=== PATIENT | female | born 1980 | race Caucasian/White ===

== ENCOUNTER → 2020-04-02 13:38 | Outpatient (BNVA) | payer MEDICARE, MEDICAID, SELFPAY | PROVIDERS: PCP Internal Medicine; Visit Provider Anesthesiology | DX: G89.4 Chronic pain syndrome (principal); M54.5 Low back pain; M54.2 Cervicalgia; M35.2 Behcet's disease; K50.90 Crohn's disease, unspecified, without complications | CPT/HCPCS: 99202 ==

== ENCOUNTER 2020-04-10 10:19 | Emergency (ER) | payer MEDICARE, MEDICAID, SELFPAY ==
[2020-04-10 13:08] VITALS: BP 136/69; PULSE 79; RESP 16; TEMP 37; O2SAT 96; BMI 31.4
--- NOTE | 2020-04-10 13:30 | XR_ITS ---
EXAMINATION: XR CHEST CLINICAL INFORMATION: Shortness of breath COMPARISON: None TECHNIQUE: Frontal view of the chest was obtained. FINDINGS: The cardiac mediastinal and hilar contours are within normal limits. The heart is normal in size. There is no lobar consolidation. There is minimal atelectasis at the base of the left lung. A port is seen along the right abdominal wall with its tip terminating at the inferior cavoatrial junction. Surgical material projects over the left upper abdomen consistent with prior surgical hernia repair. Possible trace left pleural effusion. No pneumothorax. XR/XR chest 1V IMPRESSION: 1. Minimal atelectasis at the base of the left lung and a possible trace/small left pleural effusion.
--- NOTE | 2020-04-10 13:32 | CT_ITS ---
EXAMINATION: CT ABDOMEN AND PELVIS WITH CONTRAST CLINICAL INFORMATION: Right lower quadrant pain COMPARISON: None TECHNIQUE: Multidetector volumetric images were obtained from the superior aspect of the liver through the pubic symphysis following administration 85 mL of Omnipaque 350 intravenous contrast. Sagittal and coronal reformatted images were obtained on the technologist's workstation. Oral contrast: No This CT examination was performed using dose optimization techniques as appropriate, variously including the following: *Automated exposure control *Adjustment of mA and/or kV according to patient size (this includes techniques or standardized protocols for targeted exams where dose is matched to indication/reason for exam; i.e. extremities or head) *Use of iterative reconstruction technique DLP: 542 mGy-cm FINDINGS: LUNG BASES: The visualized lung bases are unremarkable. LIVER, GALLBLADDER, AND BILIARY TREE: The liver is normal in size, shape, and attenuation. No focal hepatic lesion or biliary ductal dilatation is present. The gallbladder is unremarkable with no evidence of radiopaque gallstones, gallbladder wall thickening, or obvious pericholecystic inflammatory changes. PANCREAS: Unremarkable. SPLEEN: Unremarkable. ADRENAL GLANDS: Unremarkable. KIDNEYS AND URETERS: The kidneys are normal in size, shape, and attenuation. No hydronephrosis, hydroureter, or calculi seen. No perinephric stranding. BLADDER: Unremarkable. GASTROINTESTINAL TRACT: No acute abnormality. There is no bowel wall thickening /edema. There is no bowel obstruction. There is a moderate volume of stool in the colon. The appendix is nonvisualized . There are no inflammatory changes of the mesentery. The small bowel loops are unremarkable. The stomach is normal. There is no hiatal hernia. ABDOMINAL WALL: Surgical mesh anterior left side of abdomen. No recurrent hernia. LYMPH NODES: Normal. VASCULAR: Right-sided paralumbar approach catheter in the inferior vena cava with catheter tip at the level the diaphragm. Normal enhancement of the vasculature of the abdomen and pelvis. PELVIC VISCERA: Unremarkable. OSSEOUS STRUCTURES: Unremarkable. CT/CT abdomen pelvis w con IMPRESSION: No acute abnormality CT scan abdomen pelvis. The appendix is not visualized. There is no inflammation the mesentery. There is no acute abnormality of the bowel.
[2020-04-10] MEDS: Morphine Sulfate Immed Release 15 MG TABLET PO (13:43)
--- NOTE | 2020-04-10 13:43 | ED_ITS ---
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 She was recently tested for COVID after a potential exposure about 2 weeks ago and was negative. She has no known sick contacts since then. She recently had her chronic opiate regimen changed on 04/02 to morphine TID because her [facility] provider retired. She has had no vomiting. Diarrhea described as loose, denies blood. She is not on any medications for Crohn's at this time because Remicade caused severe diarrhea. MD elicited complaint: abdominal pain Pertinent past history: other (Crohn's ) Onset (ago): day(s) (2-3) Pain Consistency: constant Location: RLQ Severity: moderate Quality: cramping and stabbing Radiation: LLQ Migration to: no migration and LLQ Exacerbating factors: eating Relieving factors: nothing Context: history of similar episodes Associated symptoms: nausea, diarrhea and chills Treatments prior to arrival: prescription analgesics (Morphine 15 mg this morni ng ) Related Data Home Medications Medication Instructions Recorded Confirmed apremilast 30 mg tablet 30 mg PO BID 04/02/20 levetiracetam 750 mg tablet 750 mg PO BID 04/02/20 promethazine 25 mg tablet 25 mg PO Q6H PRN 04/02/20 promethazine 25 mg tablet 25 mg PO QID PRN 04/02/20 tizanidine 4 mg tablet 4 mg PO TID PRN 04/02/20 Previous Rx's Medication Instructions Recorded morphine 15 mg immediate release 15 mg PO TID PRN 30 Days #90 tab 04/03/20 tablet nitrofurantoin monohyd/m-cryst 100 mg PO Q12H 5 Days #10 cap 04/10/20 [Macrobid] promethazine 25 mg PO TID PRN #10 tab 04/10/20 Allergies Allergy/AdvReac Type Severity Reaction Status Date / Time ciprofloxacin [Cipro] Allergy Unknown unknown Verified 04/02/20 14:20 levofloxacin [Levaquin] Allergy Unknown unknown Verified 04/02/20 14:20 metoclopramide [Reglan] Allergy Unknown unknown Verified 04/02/20 14:20 ondansetron [Zofran] Allergy Unknown unknown Verified 04/02/20 14:20 penicillin V Allergy Unknown unknown Verified 04/02/20 14:20 Sulfa (Sulfonamide Allergy Unknown unknown Verified 04/02/20 14:20 Antibiotics) Compazine Allergy Unknown unknown Uncoded 04/02/20 14:20 Thalomid Allergy Unknown unknown Uncoded 04/02/20 14:20 Review of Systems Review of Systems Constitutional: + low grade Fever, + Chills ENT/Mouth: No sore throat, No Rhinorrhea, No Swallowing Difficulty Eyes: No Eye Pain, No Swelling, No Redness Cardiovascular: No Chest Pain, + SOB, No Orthopnea, No Edema Respiratory: + Cough, No Sputum, No Wheezing, + dyspnea Gastrointestinal: + Nausea, No Vomiting, + Diarrhea, + abdominal Pain, No Hematochezia, No Melena Genitourinary: No Dysuria, No Urinary Frequency, No Hematuria Musculoskeletal: No joint pain, No Myalgias Skin: No Skin Lesions, No rash Neuro: + Weakness, No Numbness,+ Dizziness, + Headache Psych: No Anxiety/Panic, No Depression Heme/Lymph: No Bruising, No Lymphadenopathy Endocrine: No Polyuria, No Polydipsia Physical Exam Vital Signs: Vital Signs: Last Vital Signs Temp 97.5 F 04/10/20 19:16 Pulse 83 04/10/20 19:16 Resp 18 04/10/20 19:16 BP 145/82 H 04/10/20 19:16 Pulse Ox 95 04/10/20 19:16 Body Mass Index 31.4 Appearance: Alert. Oriented X3. No acute distress. Eyes: Pupils equal, round and reactive to light. ENT: Pharynx normal. Neck: Normal inspection. Neck supple. CVS: Normal heart rate and rhythm. Pulses normal. Respiratory: No respiratory distress. Breath sounds normal. Abdomen: Soft, multiple well healed surgical scars. RLQ tenderness with rebound, mild LLQ tenderness, mild RUQ tenderness without rebound or guarding. decreased bowel sounds. Skin: Skin warm and dry. Normal skin color. Normal skin turgor. No rashes. Extremities: No lower extremity edema. Neuro: Oriented X 3. No motor deficit. No sensory deficit. Course Course Course Narrative: 39 y/o female with complicated PMH including Crohn's, Bechet's disease, chronic pain presenting with headache, lower abdominal pain R>L. Concern for possible Crohn's flare, appendicitis, gastroenteritis, colitis. Other etiologies include COVID-19 given other symptoms. Full lab panel, CT scan abd/pelvis ordered. Dispo pending results and improvement. Reevaluation(s) Reevaluation #1: HCG quant is 9 - patient states she has not been sexually active in 15 years and she has a history of a postive HCG. This was reviewed on her outpatient records - HCG 7 in November. Unclear etiology. Proceed with CT scan. Reevaluation #2: CT scan abd/pelvis showed no acute abnormality. Lab workup was unremarkable. UA positive for possible infection with LE and WBC. Will treat. Getting additional pain meds and PO trial now. Anticipate d/c home. Reevaluation #3: Pain improved and she is tolerating PO. She is stable for discharge with treatment for UTI. MDM - Abdominal Pain Differential Diagnosis Differential diagnosis: Likely abdominal pain, acute appendicitis, bowel perforation, diverticulitis, gastroenteritis, gastritis, ovarian cyst, renal colic and small bowel obstruction Medical Records Attestation: I reviewed the patient's medical records. Lab Data Attestation: I reviewed the patient's lab results. Result diagrams: 04/10/20 15:55 04/10/20 15:55 Labs: Lab Results 04/10/20 04/10/20 04/10/20 Range/Units 13:45 14:49 15:55 WBC 4.7 L (4.8-10.8) X10*3/uL RBC 5.11 (4.20-5.50) X10*6/uL Hgb 14.8 (12.0-16.0) g/dl Hct 45.1 (37-47) % MCV 88.3 (80-98) fL MCH 29.0 (27.0-33.0) pg MCHC 32.8 (31.0-35.0) g/dl RDW 12.8 (11.0-16.0) % Plt Count 227 (160-400) X10*3/uL MPV 10.4 (9.4-12.3) fL Immature Gran % (Auto) 0.2 (0.0-0.4) % Neut % (Auto) 65.7 (45-73) % Lymph % (Auto) 24.8 (20-40) % [place] % (Auto) 7.4 (2-11) % Eos % (Auto) 1.3 (0-4) % Baso % (Auto) 0.6 (0-2) % Lymph # (Auto) 1.2 (1.2-4.9) X10*3/uL [place] # (Auto) 0.4 (0.1-1.2) X10*3/uL Eos # (Auto) 0.1 (0.0-0.4) X10*3/uL Baso # (Auto) 0.0 (0.0-0.2) X10*3/uL Abs Immat Gran (auto) 0.01 (0.00-0.03) X10*3/uL Absolute Neuts (auto) 3.1 (2.0-8.3) X10*3/uL Absolute Nucleated RBC 0.000 (0.0-0.012) X10*3/uL Nucleated RBC % (auto) 0.0 (0.0-0.2) /100WBC Hold Blue Top Sodium (135-145) mmol/L Potassium (3.3-5.1) mmol/l Chloride (96-108) mmol/L Carbon Dioxide (22-29) mmol/L Anion Gap (12-20) BUN (9-16) mg/dL Creatinine (0.5-1.4) mg/dL Estim Creat Clear Calc Estimated GFR Random Glucose (60-115) mg/dL Calcium (8.4-10.2) mg/dL Magnesium (1.6-2.6) mg/dL Total Bilirubin (0.0-1.0) mg/dL Direct Bilirubin (0.0-0.5) mg/dL AST (5-31) U/L ALT (0-31) U/L Alkaline Phosphatase (39-117) U/L Total Protein (6.5-8.0) g/dL Albumin (3.5-5.0) g/dL Beta HCG, Quant mIU/mL Urine Color YELLOW Urine Appearance CLOUDY Urine pH 8.0 (5.0-8.0) Ur Specific [place] 1.020 (1.005-1.025) Urine Protein NEG (NEG-TRACE) MG/DL Urine Glucose (UA) NEG (NEG) MG/DL Urine Ketones NEG (NEG) MG/DL Urine Blood NEG (NEG) Urine Nitrite NEG (NEG) Ur Leukocyte Esterase 1+ H (NEG) Urine RBC 0 (0) /HPF Urine WBC 15-29 H (0-4) /HPF Ur Squamous Epith Cells 1+ /LPF Amorphous Sediment 2+ /LPF Urine Bacteria NONE /LPF Urine Mucus 1+ /LPF Coronavirus (PCR) NEGATIVE (Negative) Influenza Type A (PCR) NEGATIVE (Negative) Influenza Type B (PCR) NEGATIVE (Negative) RSV RNA Qual (PCR) NEGATIVE (Negative) 04/10/20 04/10/20 04/10/20 Range/Units 15:55 15:55 16:18 WBC (4.8-10.8) X10*3/uL RBC (4.20-5.50) X10*6/uL Hgb (12.0-16.0) g/dl Hct (37-47) % MCV (80-98) fL MCH (27.0-33.0) pg MCHC (31.0-35.0) g/dl RDW (11.0-16.0) % Plt Count (160-400) X10*3/uL MPV (9.4-12.3) fL Immature Gran % (Auto) (0.0-0.4) % Neut % (Auto) (45-73) % Lymph % (Auto) (20-40) % [place] % (Auto) (2-11) % Eos % (Auto) (0-4) % Baso % (Auto) (0-2) % Lymph # (Auto) (1.2-4.9) X10*3/uL [place] # (Auto) (0.1-1.2) X10*3/uL Eos # (Auto) (0.0-0.4) X10*3/uL Baso # (Auto) (0.0-0.2) X10*3/uL Abs Immat Gran (auto) (0.00-0.03) X10*3/uL Absolute Neuts (auto) (2.0-8.3) X10*3/uL Absolute Nucleated RBC (0.0-0.012) X10*3/uL Nucleated RBC % (auto) (0.0-0.2) /100WBC Hold Blue Top SEE NOTE Sodium 139 (135-145) mmol/L Potassium 4.6 (3.3-5.1) mmol/l Chloride 104 (96-108) mmol/L Carbon Dioxide 21 L (22-29) mmol/L Anion Gap 19 (12-20) BUN 9 (9-16) mg/dL Creatinine 0.83 (0.5-1.4) mg/dL Estim Creat Clear Calc 76.2 Estimated GFR > 60 Random Glucose 78 (60-115) mg/dL Calcium 8.6 (8.4-10.2) mg/dL Magnesium 2.5 (1.6-2.6) mg/dL Total Bilirubin 0.6 (0.0-1.0) mg/dL Direct Bilirubin < 0.2 (0.0-0.5) mg/dL AST 27 (5-31) U/L ALT 17 (0-31) U/L Alkaline Phosphatase 62 (39-117) U/L Total Protein 7.0 (6.5-8.0) g/dL Albumin 4.5 (3.5-5.0) g/dL Beta HCG, Quant 9 mIU/mL Urine Color Urine Appearance Urine pH (5.0-8.0) Ur Specific [place] (1.005-1.025) Urine Protein (NEG-TRACE) MG/DL Urine Glucose (UA) (NEG) MG/DL Urine Ketones (NEG) MG/DL Urine Blood (NEG) Urine Nitrite (NEG) Ur Leukocyte Esterase (NEG) Urine RBC (0) /HPF Urine WBC (0-4) /HPF Ur Squamous Epith Cells /LPF Amorphous Sediment /LPF Urine Bacteria /LPF Urine Mucus /LPF Coronavirus (PCR) (Negative) Influenza Type A (PCR) (Negative) Influenza Type B (PCR) (Negative) RSV RNA Qual (PCR) (Negative) Critical Care Time Critical Care Time Critical Care Time: No Discharge Plan Discharge Clinical Impression: UTI (urinary tract infection) Qualifiers: Urinary tract infection type: acute cystitis Hematuria presence: without h ematuria Qualified Code(s): N30.00 - Acute cystitis without hematuria Patient Disposition: Home, Self-Care Instructions: Urinary Tract Infection in Women (ED) Additional Instructions: Your CT scan today was normal. Your blood work was unremarkable. Your COVID and Influenza test was negative. Your urine test showed possible infection so we are starting you on antibiotics. Recommend following up with your doctor tomorrow or early next week. Follow up with your GI doctor at [facility]. If you develop bloody diarrhea, worsening abdominal pain, or other worrisome symptoms come back to the ER for further evaluation. Prescriptions: New nitrofurantoin monohyd/m-cryst [Macrobid] 100 mg capsule 100 mg PO Q12H 5 Days Qty: 10 RF: 0 promethazine 25 mg tablet 25 mg PO TID PRN (Reason: nausea and vomiting) Qty: 10 RF: 0 No Action morphine 15 mg tablet 15 mg PO TID PRN (Reason: pain) 30 Days Qty: 90 RF: 0 PMFSH Past Medical History Attestation statement: The following information was validated with the patient. Medical History Behcet's disease Cervicalgia Chronic pain syndrome Crohn's disease Low back pain Social History Social History Alcohol intake: never Smoking Status: Never smoker Use of substances other than those prescribed or required for medical reasons: No Advance Directives: Yes Advance Directives Information Provided: Yes Advance Directives on File: No
[2020-04-10 14:15] LABS: Glucose Urine UA NEG (NEG); Leukocyte Esterase Urine 1+ (NEG); Nitrite Urine NEG (NEG); Urine Blood NEG (NEG); Urine Ketones NEG (NEG); Urine Protein NEG (NEG-TRACE)
[2020-04-10] MEDS: diphenhydrAMINE HCL 50 MG/ML VIAL 25 MG IVPUSH ×3 (14:16→18:30)
[2020-04-10 14:19] LABS: Appearance Urine CLOUDY; Color Urine YELLOW
[2020-04-10] MEDS: 0.9 % Sodium Chloride 1,000 ML 999 ML IVCONT (14:20)
[2020-04-10 14:32] LABS: Amorphous Sediment Urine 2+ /LPF; Mucus Urine 1+ /LPF; RBC Urine 0 /HPF (0); Squamous Epithelial Cell Urine 1+ /LPF
[2020-04-10 15:34] LABS: Influenza A PCR NEGATIVE (Negative); Influenza B PCR NEGATIVE (Negative); Resp Syncy Virus RNA Qual PCR NEGATIVE (Negative); SARS COV2 PCR INHOUSE NEGATIVE (Negative)
[2020-04-10 16:02] LABS: Basophils Percent Auto 0.6 % (0-2); Eosinophils Absolute Auto 0.1 X10*3/uL (0.0-0.4); Eosinophils Percent Auto 1.3 % (0-4); Hematocrit 45.1 % (37-47); Hemoglobin 14.8 g/dl (12.0-16.0); Imm Gran Abs Auto 0.01 X10*3/uL (0.00-0.03); Imm Gran Pct Auto 0.2 % (0.0-0.4); Lymphocytes Absolute Auto 1.2 X10*3/uL (1.2-4.9); Lymphocytes Percent Auto 24.8 % (20-40); MANUAL DIFF FLAG NO; Mean Corpuscular HGB Conc 32.8 g/dl (31.0-35.0); Mean Corpuscular Volume 88.3 fL (80-98); Mean Platelet Volume 10.4 fL (9.4-12.3); Monocytes Absolute Auto 0.4 X10*3/uL (0.1-1.2); Monocytes Percent Auto 7.4 % (2-11); Neutrophils Absolute Auto 3.1 X10*3/uL (2.0-8.3); Neutrophils Percent Auto 65.7 % (45-73); Platelet Count 227 X10*3/uL (160-400); Red Blood Count 5.11 X10*6/uL (4.20-5.50); Red Cell Distribution Width 12.8 % (11.0-16.0); White Blood Count 4.7 X10*3/uL (4.8-10.8)
[2020-04-10 16:49] LABS: Magnesium 2.5 mg/dL (1.6-2.6)
[2020-04-10 16:52] LABS: Alanine Aminotransferase 17 U/L (0-31); Albumin Level 4.5 g/dL (3.5-5.0); Alkaline Phosphatase 62 U/L (39-117); Anion Gap 19 (12-20); Aspartate Amino Transferase 27 U/L (5-31); Bilirubin Direct < 0.2 mg/dL (0.0-0.5); Bilirubin Total 0.6 mg/dL (0.0-1.0); Blood Urea Nitrogen 9 mg/dL (9-16); Calcium 8.6 mg/dL (8.4-10.2); Carbon Dioxide 21 mmol/L (22-29); Chloride 104 mmol/L (96-108); Creatinine Clr Calc Pharmacy 76.2; Estimated Glomerular Filt Rate > 60; Glucose Random 78 mg/dL (60-115); Potassium 4.6 mmol/l (3.3-5.1); Sodium 139 mmol/L (135-145)
[2020-04-10 16:56] LABS: HCG Quantitative 9 mIU/mL
[2020-04-10 17:00] VITALS: BP 123/69; PULSE 72; RESP 18; TEMP 36.5; O2SAT 97
[2020-04-10 17:01] VITALS: BP 126/62; PULSE 71
[2020-04-10 17:02] VITALS: BP 138/69; PULSE 72
[2020-04-10 17:05] VITALS: BP 123/53; PULSE 78
[2020-04-10] MEDS: iohexoL 350 MG/ML 100 ML INFUS..BTL IV (17:31)
[2020-04-10 19:16] VITALS: BP 145/82; PULSE 83; RESP 18; TEMP 36.4; O2SAT 95
[2020-04-10] MEDS: Heparin Sodium,Porcine Flush 500 UNIT/5 ML SYRINGE IVFLUSH (20:02)
== END 2020-04-10 20:07 | disposition home or self-care (01) ==
PROVIDERS: Physician Assistant; Emergency Provider Emergency Medicine; PCP Registered Nurse
DX: N30.00 Acute cystitis without hematuria (principal); R51.9 Headache, unspecified; R10.32 Left lower quadrant pain; Z20.828 Contact with and (suspected) exposure to other viral communicable diseases; Z79.899 Other long term (current) drug therapy
CPT/HCPCS: 0241U; 36415; 71045; 74177; 80048; 80076; 81001; 81003; 83735; 84702; 85025; 87086; 96361; 96374; 96375; 96376; 99284; J1200; J1642; J2270; Q9967

== ENCOUNTER 2020-04-27 18:11 | Emergency (ER) | payer MEDICARE, MEDICAID, SELFPAY ==
[2020-04-27 18:56] VITALS: BP 94/56; PULSE 60; RESP 16; TEMP 35.9; O2SAT 100; BMI 30.2
--- NOTE | 2020-04-27 21:17 | ED_ITS ---
HPI - Abdominal Pain General Chief Complaint: Abdominal Pain Stated Complaint: ABD PAIN Time Seen by Provider: 04/27/20 21:14 History of Present Illness HPI narrative: Patient is a 39-year-old female presents today with having abdominal pain over the left side along with bilateral flank that is been ongoing for about a week. No fever no chills. No pain on urination. No coughing or congestion or upper respiratory symptoms. No diaphoresis. Patient last BM was on . She does have history of chronic pain. History of having GJ tube. 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 Patient from home. No recent travel Related Data Home Medications Medication Instructions Recorded Confirmed apremilast 30 mg tablet 30 mg PO BID 04/02/20 levetiracetam 750 mg tablet 750 mg PO BID 04/02/20 promethazine 25 mg tablet 25 mg PO Q6H PRN 04/02/20 promethazine 25 mg tablet 25 mg PO QID PRN 04/02/20 tizanidine 4 mg tablet 4 mg PO TID PRN 04/02/20 Previous Rx's Medication Instructions Recorded nitrofurantoin monohyd/m-cryst 100 mg PO Q12H 5 Days #10 cap 04/10/20 [Macrobid] promethazine 25 mg PO TID PRN #10 tab 04/10/20 morphine 15 mg immediate release 15 mg PO TID PRN 23 Days #69 tab 04/15/20 tablet Allergies Allergy/AdvReac Type Severity Reaction Status Date / Time ciprofloxacin [Cipro] Allergy Unknown unknown Verified 04/02/20 14:20 levofloxacin [Levaquin] Allergy Unknown unknown Verified 04/02/20 14:20 metoclopramide [Reglan] Allergy Unknown unknown Verified 04/02/20 14:20 ondansetron [Zofran] Allergy Unknown unknown Verified 04/02/20 14:20 penicillin V Allergy Unknown unknown Verified 04/02/20 14:20 Sulfa (Sulfonamide Allergy Unknown unknown Verified 04/02/20 14:20 Antibiotics) Compazine Allergy Unknown unknown Uncoded 04/02/20 14:20 Thalomid Allergy Unknown unknown Uncoded 04/02/20 14:20 Review of Systems Review of Systems Constitutional: No Weight loss, No Fever, No Chills, No Night Sweats, No Fatigue, No Malaise ENT/Mouth: No Hearing loss, No Ear Pain, No Nasal Congestion, No Sinus Pain, No Hoarseness, No sore throat, No Rhinorrhea, No Swallowing Difficulty Eyes: No Eye Pain, No Swelling, No Redness, No Foreign Body, No Discharge, No Vision Changes Cardiovascular: No Chest Pain, No SOB, No Dyspnea on Exertion, No Orthopnea, No Edema, No Palpitations Respiratory: No Cough, No Sputum, No Wheezing, No Smoke Exposure, No Dyspnea Gastrointestinal: No Nausea, No Vomiting, No Diarrhea, No Constipation, positive abdominal Pain, No Hematochezia, No Melena Genitourinary: no irregular bleeding, No Dysuria, No Urinary Frequency, No Hematuria, No Urinary Incontinence, No Urgency, No Flank Pain, No Urinary Flow Changes, No Hesitancy Musculoskeletal: No joint pain, No Myalgias, No Joint Swelling Skin: No Skin Lesions, No rash Neuro: No Weakness, No Numbness, No Paresthesias, No Loss of Consciousness, No Dizziness, No Headache Psych: No Anxiety/Panic, No Depression, No SI/HI/AH/VH, No Social Issues, Heme/Lymph: No Bruising, No Bleeding,No Lymphadenopathy Endocrine: No Polyuria, No Polydipsia, No Temperature Intolerance Physical Exam Vital Signs: Vital Signs: Last Vital Signs Temp 96.6 F L 04/27/20 18:56 Pulse 60 04/27/20 18:56 Resp 16 04/27/20 18:56 BP 94/56 L 04/27/20 18:56 Pulse Ox 100 04/27/20 18:56 Body Mass Index 30.2 Appearance: Alert. Oriented X3. No acute distress. Eyes: Pupils equal, round and reactive to light. ENT: Pharynx normal. Neck: Normal inspection. Neck supple. No lymph nodes noted. No crepitus CVS: Normal heart rate and rhythm. Pulses normal. Normal S1 and S2 Respiratory: No respiratory distress. Breath sounds normal. No Wheezing. No rales Abdomen: Soft and nontender. No rigidity. No distention. good BS x4 Skin: Skin warm and dry. Normal skin color. Normal skin turgor. Extremities: No lower extremity edema. Neurovascular intact to all extremities. No Lacerations. No Rash Neuro: Oriented X 3. No motor deficit. No sensory deficit. Moving all extermities. No slurred speech MDM - Abdominal Pain MDM Narrative Medical decision making narrative: CT scan of the abdomen did not show any acute abscess, perforation, obstruction. It did show a liver cyst that will require follow-up on an outpatient basis. This finding was discussed with patient. Currently in stable condition. Patient's test was negative no evidence for ectopic. Urine negative for UTI. Differential Diagnosis Differential diagnosis: Likely abdominal pain, aortic dissection, acute append icitis, bowel perforation, calculus of kidney, constipation, diverticulitis, endometriosis, gastroenteritis, gastritis, mesenteric ischemia, ovarian cyst, pancreatitis, peptic ulcer disease, renal colic and small bowel obstruction Lab Data Result diagrams: 04/27/20 23:04 04/27/20 23:04 Labs: Lab Results 04/27/20 04/27/20 04/27/20 Range/Units 23:04 23:04 23:19 WBC 6.3 (4.8-10.8) X10*3/uL RBC 4.59 (4.20-5.50) X10*6/uL Hgb 13.3 (12.0-16.0) g/dl Hct 39.8 (37-47) % MCV 86.7 (80-98) fL MCH 29.0 (27.0-33.0) pg MCHC 33.4 (31.0-35.0) g/dl RDW 12.5 (11.0-16.0) % Plt Count 204 (160-400) X10*3/uL MPV 10.7 (9.4-12.3) fL Immature Gran % (Auto) 0.2 (0.0-0.4) % Neut % (Auto) 58.8 (45-73) % Lymph % (Auto) 29.7 (20-40) % [place] % (Auto) 9.1 (2-11) % Eos % (Auto) 1.6 (0-4) % Baso % (Auto) 0.6 (0-2) % Lymph # (Auto) 1.9 (1.2-4.9) X10*3/uL [place] # (Auto) 0.6 (0.1-1.2) X10*3/uL Eos # (Auto) 0.1 (0.0-0.4) X10*3/uL Baso # (Auto) 0.0 (0.0-0.2) X10*3/uL Abs Immat Gran (auto) 0.01 (0.00-0.03) X10*3/uL Absolute Neuts (auto) 3.7 (2.0-8.3) X10*3/uL Absolute Nucleated RBC 0.000 (0.0-0.012) X10*3/uL Nucleated RBC % (auto) 0.0 (0.0-0.2) /100WBC Sodium 140 (135-145) mmol/L Potassium 4.3 (3.3-5.1) mmol/l Chloride 103 (96-108) mmol/L Carbon Dioxide 26 (22-29) mmol/L Anion Gap 15 (12-20) BUN 20 H D (9-16) mg/dL Creatinine 0.82 (0.5-1.4) mg/dL Estim Creat Clear Calc 75.7 Estimated GFR > 60 Random Glucose 78 (60-115) mg/dL Calcium 9.0 (8.4-10.2) mg/dL Total Bilirubin 0.4 (0.0-1.0) mg/dL Direct Bilirubin 0.2 (0.0-0.5) mg/dL AST 19 (5-31) U/L ALT 11 (0-31) U/L Alkaline Phosphatase 58 (39-117) U/L Total Protein 6.6 (6.5-8.0) g/dL Albumin 4.5 (3.5-5.0) g/dL Lipase 15 (8-78) U/L Urine Color YELLOW Urine Appearance CLEAR Urine pH 6.0 (5.0-8.0) Ur Specific [place] 1.025 (1.005-1.025) Urine Protein NEG (NEG-TRACE) MG/DL Urine Glucose (UA) NEG (NEG) MG/DL Urine Ketones 5 (NEG) MG/DL Urine Blood TRACE (NEG) Urine Nitrite NEG (NEG) Ur Leukocyte Esterase NEG (NEG) Urine RBC 0-2 (0) /HPF Urine WBC 1-4 (0-4) /HPF Ur Squamous Epith Cells 1+ /LPF Urine Bacteria NONE /LPF Urine Mucus 2+ /LPF Urine Test (NEGATIVE) 04/27/20 Range/Units 23:19 WBC (4.8-10.8) X10*3/uL RBC (4.20-5.50) X10*6/uL Hgb (12.0-16.0) g/dl Hct (37-47) % MCV (80-98) fL MCH (27.0-33.0) pg MCHC (31.0-35.0) g/dl RDW (11.0-16.0) % Plt Count (160-400) X10*3/uL MPV (9.4-12.3) fL Immature Gran % (Auto) (0.0-0.4) % Neut % (Auto) (45-73) % Lymph % (Auto) (20-40) % [place] % (Auto) (2-11) % Eos % (Auto) (0-4) % Baso % (Auto) (0-2) % Lymph # (Auto) (1.2-4.9) X10*3/uL [place] # (Auto) (0.1-1.2) X10*3/uL Eos # (Auto) (0.0-0.4) X10*3/uL Baso # (Auto) (0.0-0.2) X10*3/uL Abs Immat Gran (auto) (0.00-0.03) X10*3/uL Absolute Neuts (auto) (2.0-8.3) X10*3/uL Absolute Nucleated RBC (0.0-0.012) X10*3/uL Nucleated RBC % (auto) (0.0-0.2) /100WBC Sodium (135-145) mmol/L Potassium (3.3-5.1) mmol/l Chloride (96-108) mmol/L Carbon Dioxide (22-29) mmol/L Anion Gap (12-20) BUN (9-16) mg/dL Creatinine (0.5-1.4) mg/dL Estim Creat Clear Calc Estimated GFR Random Glucose (60-115) mg/dL Calcium (8.4-10.2) mg/dL Total Bilirubin (0.0-1.0) mg/dL Direct Bilirubin (0.0-0.5) mg/dL AST (5-31) U/L ALT (0-31) U/L Alkaline Phosphatase (39-117) U/L Total Protein (6.5-8.0) g/dL Albumin (3.5-5.0) g/dL Lipase (8-78) U/L Urine Color Urine Appearance Urine pH (5.0-8.0) Ur Specific [place] (1.005-1.025) Urine Protein (NEG-TRACE) MG/DL Urine Glucose (UA) (NEG) MG/DL Urine Ketones (NEG) MG/DL Urine Blood (NEG) Urine Nitrite (NEG) Ur Leukocyte Esterase (NEG) Urine RBC (0) /HPF Urine WBC (0-4) /HPF Ur Squamous Epith Cells /LPF Urine Bacteria /LPF Urine Mucus /LPF Urine Test NEGATIVE (NEGATIVE) Discharge Plan Discharge Clinical Impression: Abdominal pain Patient Disposition: Home, Self-Care Instructions: Abdominal Pain (ED) Additional Instructions: A cyst was found in your liver. A follow-up CT is needed in 6 months. Please closely follow-up with your doctor. Risk of malignancy exists. Prescriptions: No Action morphine 15 mg tablet 15 mg PO TID PRN (Reason: pain) 23 Days Qty: 69 RF: 0 nitrofurantoin monohyd/m-cryst [Macrobid] 100 mg capsule 100 mg PO Q12H 5 Days Qty: 10 RF: 0 promethazine 25 mg tablet 25 mg PO TID PRN (Reason: nausea and vomiting) Qty: 10 RF: 0 Referrals: Amelie Banks NP [Primary Care Provider] - 2 days [facility] Past Medical History Attestation statement: The following information was validated with the patient. Medical History Behcet's disease Cervicalgia Chronic pain syndrome Crohn's disease Low back pain Social History Social History Alcohol intake: never Smoking Status: Never smoker Advance Directives: No Advance Directives Information Provided: No
[2020-04-27 22:00] VITALS: BP 99/70; PULSE 66; RESP 16; TEMP 36.6; O2SAT 100
[2020-04-27 23:11] LABS: Basophils Percent Auto 0.6 % (0-2); Eosinophils Absolute Auto 0.1 X10*3/uL (0.0-0.4); Eosinophils Percent Auto 1.6 % (0-4); Hematocrit 39.8 % (37-47); Hemoglobin 13.3 g/dl (12.0-16.0); Imm Gran Abs Auto 0.01 X10*3/uL (0.00-0.03); Imm Gran Pct Auto 0.2 % (0.0-0.4); Lymphocytes Absolute Auto 1.9 X10*3/uL (1.2-4.9); Lymphocytes Percent Auto 29.7 % (20-40); MANUAL DIFF FLAG NO; Mean Corpuscular HGB Conc 33.4 g/dl (31.0-35.0); Mean Corpuscular Volume 86.7 fL (80-98); Mean Platelet Volume 10.7 fL (9.4-12.3); Monocytes Absolute Auto 0.6 X10*3/uL (0.1-1.2); Monocytes Percent Auto 9.1 % (2-11); Neutrophils Absolute Auto 3.7 X10*3/uL (2.0-8.3); Neutrophils Percent Auto 58.8 % (45-73); Platelet Count 204 X10*3/uL (160-400); Red Blood Count 4.59 X10*6/uL (4.20-5.50); Red Cell Distribution Width 12.5 % (11.0-16.0); White Blood Count 6.3 X10*3/uL (4.8-10.8)
[2020-04-27 23:24] LABS: Glucose Urine UA NEG (NEG); Leukocyte Esterase Urine NEG (NEG); Nitrite Urine NEG (NEG); Specific Gravity - Urine 1.025 (1.005-1.025); Urine Blood TRACE (NEG); Urine Ketones 5 MG/DL (NEG); Urine Protein NEG (NEG-TRACE)
[2020-04-27 23:26] LABS: Appearance Urine CLEAR; Color Urine YELLOW
[2020-04-27 23:35] LABS: Alanine Aminotransferase 11 U/L (0-31); Albumin Level 4.5 g/dL (3.5-5.0); Alkaline Phosphatase 58 U/L (39-117); Anion Gap 15 (12-20); Aspartate Amino Transferase 19 U/L (5-31); Bilirubin Direct 0.2 mg/dL (0.0-0.5); Bilirubin Total 0.4 mg/dL (0.0-1.0); Blood Urea Nitrogen 20 mg/dL (9-16); Carbon Dioxide 26 mmol/L (22-29); Chloride 103 mmol/L (96-108); Creatinine Clr Calc Pharmacy 75.7; Estimated Glomerular Filt Rate > 60; Glucose Random 78 mg/dL (60-115); Lipase 15 U/L (8-78); Potassium 4.3 mmol/l (3.3-5.1); Sodium 140 mmol/L (135-145); Total Protein 6.6 g/dL (6.5-8.0)
[2020-04-27 23:36] LABS: Mucus Urine 2+ /LPF; RBC Urine 0-2 /HPF (0); Squamous Epithelial Cell Urine 1+ /LPF
[2020-04-27 23:52] LABS: UPreg QC Valid YES; Urine Pregnancy NEGATIVE (NEGATIVE)
[2020-04-28] VITALS: PULSE 62; RESP 16
--- NOTE | 2020-04-28 | CT_ITS ---
EXAMINATION: CT ABDOMEN AND PELVIS WITH CONTRAST CLINICAL INFORMATION: Left-sided abdominal pain COMPARISON: 04/10/2020 TECHNIQUE: Multidetector volumetric images were obtained from the superior aspect of the liver through the pubic symphysis following administration 85 mL of Omnipaque 350 intravenous contrast. Sagittal and coronal reformatted images were obtained on the technologist's workstation. Oral contrast: No This CT examination was performed using dose optimization techniques as appropriate, variously including the following: *Automated exposure control *Adjustment of mA and/or kV according to patient size (this includes techniques or standardized protocols for targeted exams where dose is matched to indication/reason for exam; i.e. extremities or head) *Use of iterative reconstruction technique DLP: 589 mGy-cm FINDINGS: IMAGED THORAX: Chronic fibrocalcific pleural thickening of the left lower hemithorax. Chronic pleural parenchymal scarring present within the anterior right upper lobe and middle lobe. There is a 4 mm solid nodule with surrounding groundglass opacity within the lateral right lower lobe not included within the [id number] on the prior exam. LIVER, GALLBLADDER, AND BILIARY TREE: The liver is normal in size, shape, and attenuation. No focal hepatic lesion or biliary ductal dilatation is present. Gallbladder unremarkable. PANCREAS: Unremarkable. SPLEEN: Unremarkable. ADRENAL GLANDS: Unremarkable. KIDNEYS AND URETERS: The kidneys are normal in size, shape, and attenuation. No hydronephrosis, hydroureter, or calculi seen. No perinephric stranding. BLADDER: Unremarkable. GASTROINTESTINAL TRACT: No bowel related abnormalities. The appendix is normal. ABDOMINAL WALL: Evidence of previous left lower quadrant ostomy. Postsurgical changes present along the left upper quadrant abdominal wall subjacent to the ostomy, possibly related to repair. DiastasIs of the rectus abdominis, with broad mouth epigastric ventral abdominal wall hernia lacking associated inflammation, stable from prior. LYMPH NODES: Normal. VASCULAR: Right posterolateral flank Port-A-Cath courses through the right psoas musculature into the infrarenal IVC with the tip terminating at the level of the inferior cavoatrial junction. Vascular structures are patent. PELVIC VISCERA: Uterus and adnexa unremarkable. OSSEOUS STRUCTURES: No acute or suspicious osseous abnormalities. CT/CT abdomen pelvis w con IMPRESSION: * No acute findings within the abdomen or pelvis to explain the patient's symptomatology. * Chronic and postsurgical changes as described. * Stable chronic calcific pleural and pleural-parenchymal scarring within the left lower lobe, and anterior aspects of the right upper lobe and middle lobe. * There is a 5 mm some solid nodule within the right lower lobe laterally. As precaution, consider follow-up CT chest in 6-12 months unless prior imaging studies are available for comparison in which case an addendum will be issued when such comparison becomes available.
[2020-04-28] MEDS: iohexoL 350 MG/ML 100 ML INFUS..BTL 85 ML IV (00:18)
== END 2020-04-28 01:00 | disposition home or self-care (01) ==
PROVIDERS: Emergency Provider Emergency Medicine Emergency Medical Services; PCP Registered Nurse
DX: R10.9 Unspecified abdominal pain (principal); Z79.899 Other long term (current) drug therapy
CPT/HCPCS: 36415; 74177; 80048; 80076; 81001; 81025; 83690; 85025; 99284; Q9967

== ENCOUNTER → 2020-04-30 09:16 | Outpatient (BNVA) | payer MEDICARE, MEDICAID, SELFPAY | PROVIDERS: PCP Registered Nurse; Referring Provider Registered Nurse; Visit Provider Anesthesiology | DX: M35.2 Behcet's disease (principal); K50.90 Crohn's disease, unspecified, without complications; M54.5 Low back pain; M54.2 Cervicalgia; G89.4 Chronic pain syndrome | CPT/HCPCS: 99212 ==

== ENCOUNTER → 2020-05-29 09:10 | Outpatient (BNVA) | payer OTHER, SELFPAY | PROVIDERS: PCP Registered Nurse; Visit Provider Anesthesiology | DX: M35.2 Behcet's disease (principal); K50.90 Crohn's disease, unspecified, without complications; M54.5 Low back pain; M54.2 Cervicalgia; G89.4 Chronic pain syndrome | CPT/HCPCS: 99212 ==

== ENCOUNTER → 2020-06-25 09:45 | Outpatient (BNVA) | payer OTHER, SELFPAY | PROVIDERS: PCP Registered Nurse; Visit Provider Anesthesiology | DX: M35.2 Behcet's disease (principal); M54.5 Low back pain; M54.2 Cervicalgia; G89.4 Chronic pain syndrome; K50.90 Crohn's disease, unspecified, without complications | CPT/HCPCS: 99212 ==

== ENCOUNTER 2020-07-23 09:20 | Outpatient (REF) | payer MEDICARE, SELFPAY ==
--- NOTE | ~2020-07-23 | XR_ITS ---
EXAMINATION: XR ELBOW, LEFT CLINICAL INFORMATION: Injury to left elbow. Pain. COMPARISON: None TECHNIQUE: AP, lateral, and oblique views of the left elbow. FINDINGS: The bones and soft tissues are normal. No fracture or joint effusion. Alignment is anatomic. Joint spaces are maintained. XR/XR elbow LT min 3V IMPRESSION: Unremarkable left elbow.
== END 2020-07-23 09:21 | disposition home or self-care (01) ==
LOC: HO.HMGCX 09:20
PROVIDERS: Absent Provider Nurse Practitioner Family; PCP Registered Nurse; Visit Provider Anesthesiology
DX: G89.4 Chronic pain syndrome (principal); M35.2 Behcet's disease; K50.90 Crohn's disease, unspecified, without complications; M54.5 Low back pain; M54.2 Cervicalgia; Z79.891 Long term (current) use of opiate analgesic; S59.902A Unspecified injury of left elbow, initial encounter; X58.XXXA Exposure to other specified factors, initial encounter; Y93.9 Activity, unspecified; Y92.9 Unspecified place or not applicable; Y99.9 Unspecified external cause status
CPT/HCPCS: 73080; 99212

== ENCOUNTER → 2020-08-21 08:11 | Outpatient (BNVA) | payer MEDICARE, SELFPAY | PROVIDERS: PCP Registered Nurse; Visit Provider Anesthesiology | DX: M35.2 Behcet's disease (principal); M54.5 Low back pain; M54.2 Cervicalgia; G89.4 Chronic pain syndrome; K50.90 Crohn's disease, unspecified, without complications; Z79.899 Other long term (current) drug therapy | CPT/HCPCS: 99212 ==

== ENCOUNTER 2020-08-26 06:11 | Outpatient (REF) | payer MEDICARE, SELFPAY | END 2020-08-26 06:12 | disposition home or self-care (01) | LOC: HO.RADIR 06:11 | PROVIDERS: Visit Provider Anesthesiology | DX: Z13.89 Encounter for screening for other disorder (principal) ==

== ENCOUNTER 2020-09-16 06:25 | Outpatient (REF) | payer MEDICARE, SELFPAY | END 2020-09-16 06:26 | disposition home or self-care (01) | LOC: HO.RADIR 06:25 | PROVIDERS: Visit Provider Anesthesiology | DX: Z13.89 Encounter for screening for other disorder (principal) | CPT/HCPCS: J3300; Q9967 ==

== ENCOUNTER → 2020-09-22 08:08 | Outpatient (BNVA) | payer MEDICARE, SELFPAY | PROVIDERS: PCP Registered Nurse; Visit Provider Anesthesiology | DX: M35.2 Behcet's disease (principal); M54.5 Low back pain; M54.2 Cervicalgia; G89.4 Chronic pain syndrome; K50.90 Crohn's disease, unspecified, without complications | CPT/HCPCS: 99212 ==

== ENCOUNTER → 2020-10-22 08:22 | Outpatient (BNVA) | payer MEDICARE, SELFPAY | PROVIDERS: PCP Registered Nurse; Visit Provider Anesthesiology | DX: M35.2 Behcet's disease (principal); K50.90 Crohn's disease, unspecified, without complications; M54.5 Low back pain; M54.2 Cervicalgia; G89.4 Chronic pain syndrome; Z79.899 Other long term (current) drug therapy | CPT/HCPCS: 99212 ==

== ENCOUNTER → 2020-11-20 08:14 | Outpatient (BNVA) | payer MEDICARE, MEDICAID, SELFPAY | PROVIDERS: PCP Registered Nurse; Visit Provider Anesthesiology | DX: M35.2 Behcet's disease (principal); K50.90 Crohn's disease, unspecified, without complications; M54.5 Low back pain; M54.2 Cervicalgia; G89.4 Chronic pain syndrome | CPT/HCPCS: 99212 ==

== ENCOUNTER 2020-12-03 16:43 | Emergency (ER) | payer MEDICARE, MEDICAID, SELFPAY ==
--- NOTE | ~2020-12-03 | CT_ITS ---
EXAMINATION: CT ABDOMEN AND PELVIS WITHOUT CONTRAST CLINICAL INFORMATION: Right flank pain COMPARISON: 04/28/2020 and 04/10/2020 TECHNIQUE: Multidetector volumetric imaging was performed from the superior aspect of the liver through the pubic symphysis. Sagittal and coronal reformatted images were obtained on the technologist's workstation. This CT examination was performed using dose optimization techniques as appropriate, variously including the following: *Automated exposure control *Adjustment of mA and/or kV according to patient size (this includes techniques or standardized protocols for targeted exams where dose is matched to indication/reason for exam; i.e. extremities or head) *Use of iterative reconstruction technique DLP: 470 mGy-cm FINDINGS: LUNG BASES: Again seen is thickening involving the major fissure in the left lower lobe along with scarring/atelectasis at both lung bases. LIVER, GALLBLADDER, AND BILIARY TREE: The liver is normal in size, shape, and attenuation. No focal hepatic lesion or biliary ductal dilatation is present. The gallbladder is unremarkable with no evidence of radiopaque gallstones, gallbladder wall thickening, or obvious pericholecystic inflammatory changes. PANCREAS: Unremarkable. SPLEEN: Unremarkable. ADRENAL GLANDS: Unremarkable. KIDNEYS AND URETERS: The kidneys are normal in size, shape, and attenuation. No hydronephrosis, hydroureter, or calculi seen. No perinephric stranding. BLADDER: Unremarkable. GASTROINTESTINAL TRACT: The small and large bowel are unremarkable. The appendix is unremarkable. ABDOMINAL WALL: No significant hernia is appreciated. Evidence of prior left abdominal wall hernia repair. LYMPH NODES: No retroperitoneal lymphadenopathy. VASCULAR: A translumbar port is present with its tip at the IVC RA junction. No aortic aneurysm is seen. PELVIC VISCERA: Small anteverted uterus present. An abnormal adnexal mass or free fluid is not seen. OSSEOUS STRUCTURES: Exaggerated lumbar lordosis. Minimal grade 1 anterolisthesis of L5 upon S1. CT/CT abdomen pelvis wo con IMPRESSION: An etiology for the right flank pain has not been found. No renal calculi are seen
--- NOTE | ~2020-12-03 | XR_ITS ---
EXAMINATION: XR ABDOMEN KUB CLINICAL INDICATION: Right-sided kidney stone COMPARISON: CT abdomen pelvis 04/28/2020 TECHNIQUE: AP view of the abdomen. FINDINGS: Again seen is evidence of a abdominal wall hernia repair in the left upper quadrant. A translumbar port is present on the right with its tip at the IVC atrial junction. No renal calculi are seen. No renal calculi were present at the time of the prior CT scan as well. The bowel gas pattern is normal without evidence of obstruction. A moderate amount of stool is present in the rectum. XR/XR KUB IMPRESSION: No evidence of bowel obstruction No renal calculi seen Evidence of prior left upper quadrant hernia repair and right abdominal wall translumbar Port-A-Cath.
[2020-12-03 16:56] VITALS: BP 114/43; PULSE 67; RESP 18; TEMP 36; O2SAT 95; BMI 28.3
--- NOTE | 2020-12-03 17:27 | ED_ITS ---
HPI - General Adult General Chief complaint: General Medical Stated complaint: abd pain back pain nausea Time Seen by Provider: 12/03/20 17:14 Source: patient Mode of arrival: ambulatory Limitations: no limitations History of Present Illness HPI narrative: Patient is a 40-year-old female complicated past med hx inc luding chronic pain syndrome on chronic opiates, Behcet's disease, Crohn's disease, common variable immune deficiency, spinal stenosis with chronic urinary incontinence, stroke, anemia, ovarian cysts, asthma, chronic fatgiue, s/p lysis of adhesions, s/p thoracotomy and pleurodesis, hx port placement for narcotic KAIAKO KURA TUARUA, DVT/PE on Eliquis who presents with for right-sided back pain x2 days. She admits to nausea but no vomiting. She states she took Aleve, ibuprofen, Tylenol and an opiate today with no relief, last medicine she took was an opiate approximately 3 hours ago. She describes her pain as sharp, nonradiating. She denies any blood in her urine, abdominal pain, chest pain, shortness of breath, fevers, vomiting or diarrhea. Patient states she has a history of kidney stones. Related Data Home Medications Medication Instructions Recorded Confirmed apremilast 30 mg tablet 30 mg PO BID 04/02/20 09/22/20 levetiracetam 750 mg tablet 750 mg PO BID 04/02/20 09/22/20 promethazine 25 mg tablet 25 mg PO Q6H PRN 04/02/20 09/22/20 promethazine 25 mg tablet 25 mg PO QID PRN 04/02/20 09/22/20 tizanidine 4 mg tablet 4 mg PO TID PRN 04/02/20 09/22/20 apixaban 5 mg tablet 5 mg PO BID 09/22/20 09/22/20 Previous Rx's Medication Instructions Recorded nitrofurantoin monohyd/m-cryst 100 mg PO Q12H 5 Days #10 cap 04/10/20 [Macrobid] promethazine 25 mg PO TID PRN #10 tab 04/10/20 hydromorphone 4 mg tablet 4 mg PO TID PRN 30 Days #90 tab 11/20/20 Allergies Allergy/AdvReac Type Severity Reaction Status Date / Time ciprofloxacin [Cipro] Allergy Unknown unknown Verified 11/20/20 08:20 levofloxacin [Levaquin] Allergy Unknown unknown Verified 11/20/20 08:20 metoclopramide [Reglan] Allergy Unknown unknown Verified 11/20/20 08:20 ondansetron [Zofran] Allergy Unknown unknown Verified 11/20/20 08:20 penicillin V Allergy Unknown unknown Verified 11/20/20 08:20 Sulfa (Sulfonamide Allergy Unknown unknown Verified 11/20/20 08:20 Antibiotics) Compazine Allergy Unknown unknown Uncoded 04/02/20 14:20 Thalomid Allergy Unknown unknown Uncoded 04/02/20 14:20 Review of Systems Review of Systems: Yes all other systems are reviewed and are negative [facility] Past Medical History Medical History Behcet's disease Cervicalgia Chronic pain syndrome Crohn's disease Low back pain Social History Social History Alcohol intake: former Patient Tobacco Use Status: Never used Tobacco Use of substances other than those prescribed or required for medical reasons: No Advance Directives: No Advance Directives Information Provided: Yes Patient : No Physical Exam Vital Signs: Vital Signs: Last Vital Signs Temp 98 F 12/03/20 18:43 Pulse 50 12/03/20 20:11 Resp 12 12/03/20 20:11 BP 94/51 L 12/03/20 20:11 Pulse Ox 96 12/03/20 20:11 Body Mass Index 28.3 Const: General: cooperative, healthy appearing, comfortable, no acute distress and well developed Orientation/consciousness: patient oriented x3 Limit ations: no limitations HENMT: Head: Yes normal to inspection Eyes: General: appearance normal, both eyes and all related structures Neck: Neck: Yes normal visual inspection and Yes full ROM Resp: Effort & Inspection: normal respiratory effort and able to speak in complete sentences Auscultation: clear to auscultation bilaterally Cardio: Rate: regular rate Rhythm: regular rhythm Heart sounds: normal S1 and S2 GI: Inspection: Yes normal to inspection Palpation (GI): Soft to palpation and nontender : General: Yes no CVA tenderness Back/Spine/Pelvis: Back: no CVA tenderness Cervical Spine: cervical ROM normal and No Cervical spine tenderness Thoracic/Lumbar Spine: thoracic and lumbar spine normal to inspection, No thoracic spinal tenderness and No lumbar spinal tenderness Skin: General skin exam: no rashes or lesions noted Neuro: General: patient oriented x3 Extrem: General: Yes normal to inspection Course Course Course Narrative: Patient is a 40-year-old female complicated past med hx including chronic pain syndrome on chronic opiates, Behcet's disease, Crohn's disease, common variable immune deficiency, spinal stenosis with chronic urinary incontinence, stroke, anemia, ovarian cysts, asthma, chronic fatgiue, s/p lysis of adhesions, s/p thoracotomy and pleurodesis, hx port placement for narcotic KAIAKO KURA TUARUA, DVT/PE on Eliquis who presents with for right-sided back pain x2 days. Vital signs stable, patient well appearing physical exam unremarkable. Will get UA, basic labs and a KUB to rule out a kidney stone. Reevaluation(s) Reevaluation #1: Recheck of the low blood pressure (88/44) shows patient is 98/58 with a map of 74, likely error. Will put patient on a front desk monitor and get Q15min blood pressures to monitor. UA negative, KUB negative for stone. Labs show lower hemoglobin, pt denies any black or bloody stools but does report increased bruising on her arms. Patient had an abdominal CT scan and April of 2020 that showed a nodule in her right lower lobe with a recommendation for a repeat chest CT the patient denies ever having this done. Will get abd CT Time: 21:27 Reevaluation #2: CT of abdomen showed no acute issues. Discussed with patient advised to follow-up with pain management if her pain continues but there is no acute reason for her right-sided flank pain. Blood pressure monitoring showed patient's blood pressure above 90's systolic. Medical Decision Making Lab Data Lab results reviewed: Yes I reviewed the patient's lab results. Result diagrams: 12/03/20 17:57 12/03/20 17:57 Labs: Lab Results 12/03/20 12/03/20 12/03/20 Range/Units 17:28 17:57 17:57 WBC 6.0 (4.8-10.8) X10*3/uL RBC 3.95 L (4.20-5.50) X10*6/uL Hgb 11.6 L (12.0-16.0) g/dl Hct 34.4 L (37-47) % MCV 87.1 (80-98) fL MCH 29.4 (27.0-33.0) pg MCHC 33.7 (31.0-35.0) g/dl RDW 13.0 (11.0-16.0) % Plt Count 193 (160-400) X10*3/uL MPV 10.6 (9.4-12.3) fL Immature Gran % (Auto) 0.2 (0.0-0.4) % Neut % (Auto) 63.8 (45-73) % Lymph % (Auto) 26.3 (20-40) % [place] % (Auto) 7.5 (2-11) % Eos % (Auto) 1.7 (0-4) % Baso % (Auto) 0.5 (0-2) % Lymph # (Auto) 1.6 (1.2-4.9) X10*3/uL [place] # (Auto) 0.5 (0.1-1.2) X10*3/uL Eos # (Auto) 0.1 (0.0-0.4) X10*3/uL Baso # (Auto) 0.0 (0.0-0.2) X10*3/uL Abs Immat Gran (auto) 0.01 (0.00-0.03) X10*3/uL Absolute Neuts (auto) 3.9 (2.0-8.3) X10*3/uL Absolute Nucleated RBC 0.000 (0.0-0.012) X10*3/uL Nucleated RBC % (auto) 0.0 (0.0-0.2) /100WBC Sodium 141 (135-145) mmol/L Potassium 4.0 (3.3-5.1) mmol/L Chloride 107 (96-108) mmol/L Carbon Dioxide 25 (22-29) mmol/L Anion Gap 13 (12-20) BUN 20 H (9-16) mg/dL Creatinine 0.80 (0.5-1.4) mg/dL Estim Creat Clear Calc 74.2 Estimated GFR > 60 Random Glucose 111 D (60-115) mg/dL Calcium 9.2 (8.4-10.2) mg/dL Total Bilirubin 0.5 (0.0-1.0) mg/dL Direct Bilirubin 0.2 (0.0-0.5) mg/dL AST 18 (5-31) U/L ALT 9 (0-31) U/L Alkaline Phosphatase 72 D (39-117) U/L Total Protein 6.5 (6.5-8.0) g/dL Albumin 4.3 (3.5-5.0) g/dL Urine Color YELLOW Urine Appearance CLEAR Urine pH 6.0 (5.0-8.0) Ur Specific [place] >= 1.030 H (1.005-1.025) Urine Protein NEG (NEG-TRACE) MG/DL Urine Glucose (UA) NEG (NEG) MG/DL Urine Ketones NEG (NEG) MG/DL Urine Blood 1+ H (NEG) Urine Nitrite NEG (NEG) Ur Leukocyte Esterase NEG (NEG) Urine RBC 1-4 (0) /HPF Urine WBC 0-2 (0-4) /HPF Ur Squamous Epith Cells TRACE /LPF Urine Bacteria TRACE /LPF Imaging Data CT scan - abdomen: Attestation: I personally reviewed and interpreted this imaging study as follows: Radiologist's impression: [address] [id number] Scan ReportSigned Patient: Brooklyn ChavezMR#: [id number]: 1980Acct:[id number]/Sex: 40 / FADM Date: 12/03/20Loc: [address]: Ordering Physician: Prudence Pisano PA-C Date of Service: 12/03/20 Procedure(s): CT abdomen pelvis wo [facility] Accession Number(s): [id number] cc: Prudence Pisano PA-C~ EXAMINATION: CT ABDOMEN AND PELVIS WITHOUT CONTRAST CLINICAL INFORMATION: Right flank pain COMPARISON: 04/28/2020 and 04/10/2020 TECHNIQUE: Multidetector volumetric imaging was performed from the superior aspect of the liver through the pubic symphysis. Sagittal and coronal reformatted images were obtained on the technologist's workstation. This CT examination was performed using dose optimization techniques as appropriate, variously including the following: *Automated exposure control *Adjustment of mA and/or kV according to patient size (this includes techniques or standardized protocols for targeted exams where dose is matched to indication/reason for exam; i.e. extremities or head) *Use of iterative reconstruction technique DLP: 470 mGy-cm FINDINGS: LUNG BASES: Again seen is thickening involving the major fissure in the left lower lobe along with scarring/atelectasis at both lung bases. LIVER, GALLBLADDER, AND BILIARY TREE: The liver is normal in size, shape, and attenuation. No focal hepatic lesion or biliary ductal dilatation is present. The gallbladder is unremarkable with no evidence of radiopaque gallstones, gallbladder wall thickening, or obvious pericholecystic inflammatory changes. PANCREAS: Unremarkable. SPLEEN: Unremarkable. ADRENAL GLANDS: Unremarkable. KIDNEYS AND URETERS: The kidneys are normal in size, shape, and attenuation. No hydronephrosis, hydroureter, or calculi seen. No perinephric stranding. BLADDER: Unremarkable. GASTROINTESTINAL TRACT: The small and large bowel are unremarkable. The appendix is unremarkable. ABDOMINAL WALL: No significant hernia is appreciated. Evidence of prior left abdominal wall hernia repair. LYMPH NODES: No retroperitoneal lymphadenopathy. VASCULAR: A translumbar port is present with its tip at the IVC RA junction. No aortic aneurysm is seen. PELVIC VISCERA: Small anteverted uterus present. An abnormal adnexal mass or free fluid is not seen. OSSEOUS STRUCTURES: Exaggerated lumbar lordosis. Minimal grade 1 anterolisthesis of L5 upon S1. CT/CT abdomen pelvis wo con IMPRESSION: An etiology for the right flank pain has not been found. No renal calculi are seen Dictated By:SAM RUTHERFORD MDSigned By:<Electronically signed by SAM RUTHERFORD MD in OV>12/03/202042 DD/ 18TD/TT: Digital Strategy Specialist: BALTA Abdominal x-ray: Attestation: I personally reviewed and interpreted this imaging study as follows: Radiologist's impression: [address] [place], [place] [address]WPor ReportSigned Patient: Supa Chavez#: [id number]: 1980Acct:[id number]/Sex: 40 / FADM Date: 12/03/20Loc: [address]: Ordering Physician: Prudence Pisano PA-C Date of Service: 12/03/20 Procedure(s): XR KUB Accession Number(s): [id number] cc: Prudence Pisano PA-C~ EXAMINATION: XR ABDOMEN KUB CLINICAL INDICATION: Right-sided kidney stone COMPARISON: CT abdomen pelvis 04/28/2020 TECHNIQUE: AP view of the abdomen. FINDINGS: Again seen is evidence of a abdominal wall hernia repair in the left upper quadrant. A translumbar port is present on the right with its tip at the IVC atrial junction. No renal calculi are seen. No renal calculi were present at the time of the prior CT scan as well. The bowel gas pattern is normal without evidence of obstruction. A moderate amount of stool is present in the rectum. XR/XR KUB IMPRESSION: No evidence of bowel obstruction No renal calculi seen Evidence of prior left upper quadrant hernia repair and right abdominal wall translumbar Port-A-Cath. Dictated By:SAM RUTHERFORD MDSigned By:<Electronically signed by SAM RUTHERFORD MD in OV>12/03/20 1822 DD/ 1725TD/TT: Digital Strategy Specialist: Discharge Plan Discharge Clinical Impression: Back pain Patient Disposition: Home, Self-Care Additional Instructions: You may use ice or heat on the area to help with your pain. Please be sure to follow-up with pain management if your pain continues. Prescriptions: No Action nitrofurantoin monohyd/m-cryst [Macrobid] 100 mg capsule 100 mg PO Q12H 5 Days Qty: 10 RF: 0 promethazine 25 mg tablet 25 mg PO TID PRN (Reason: nausea and vomiting) Qty: 10 RF: 0 tizanidine 4 mg tablet 4 mg PO TID PRNRF: 0 promethazine 25 mg tablet 25 mg PO QID PRN (Reason: nausea) RF: 0 levetiracetam [Keppra] 750 mg tablet 750 mg PO BID RF: 0 promethazine 25 mg tablet 25 mg PO Q6H PRNRF: 0 Otezla 30 mg tablet 30 mg PO BID RF: 0 Eliquis 5 mg tablet 5 mg PO BID RF: 0 hydromorphone 4 mg tablet 4 mg PO TID PRN (Reason: pain) 30 Days Qty: 90 RF: 0 Referrals: Manny Pedroza MD [Physician] - 2 days (If your pain continues) Interventions: ED Discharge Assessment Last Done: 12/03/20 22:33 Discharge Date/Time: 12/03/20 22:39
[2020-12-03 17:36] LABS: Glucose Urine UA NEG (NEG); Leukocyte Esterase Urine NEG (NEG); Nitrite Urine NEG (NEG); Specific Gravity - Urine >= 1.030 (1.005-1.025); Urine Blood 1+ (NEG); Urine Ketones NEG (NEG); Urine Protein NEG (NEG-TRACE)
[2020-12-03 17:47] LABS: Appearance Urine CLEAR; Color Urine YELLOW
[2020-12-03] MEDS: Acetaminophen 325 MG TABLET 650 MG PO (17:58)
[2020-12-03 18:01] LABS: Bacteria Urine TRACE /LPF; Squamous Epithelial Cell Urine TRACE /LPF; WBC Urine 0-2 /HPF (0-4)
[2020-12-03 18:11] LABS: MANUAL DIFF FLAG NO
[2020-12-03 18:12] LABS: Basophils Percent Auto 0.5 % (0-2); Eosinophils Absolute Auto 0.1 X10*3/uL (0.0-0.4); Eosinophils Percent Auto 1.7 % (0-4); Hematocrit 34.4 % (37-47); Hemoglobin 11.6 g/dl (12.0-16.0); Imm Gran Abs Auto 0.01 X10*3/uL (0.00-0.03); Imm Gran Pct Auto 0.2 % (0.0-0.4); Lymphocytes Absolute Auto 1.6 X10*3/uL (1.2-4.9); Lymphocytes Percent Auto 26.3 % (20-40); Mean Corpuscular HGB Conc 33.7 g/dl (31.0-35.0); Mean Corpuscular Hemoglobin 29.4 pg (27.0-33.0); Mean Corpuscular Volume 87.1 fL (80-98); Mean Platelet Volume 10.6 fL (9.4-12.3); Monocytes Absolute Auto 0.5 X10*3/uL (0.1-1.2); Monocytes Percent Auto 7.5 % (2-11); Neutrophils Absolute Auto 3.9 X10*3/uL (2.0-8.3); Neutrophils Percent Auto 63.8 % (45-73); Platelet Count 193 X10*3/uL (160-400); Red Blood Count 3.95 X10*6/uL (4.20-5.50)
[2020-12-03 18:36] LABS: Alanine Aminotransferase 9 U/L (0-31); Albumin Level 4.3 g/dL (3.5-5.0); Alkaline Phosphatase 72 U/L (39-117); Anion Gap 13 (12-20); Aspartate Amino Transferase 18 U/L (5-31); Bilirubin Direct 0.2 mg/dL (0.0-0.5); Bilirubin Total 0.5 mg/dL (0.0-1.0); Blood Urea Nitrogen 20 mg/dL (9-16); Calcium 9.2 mg/dL (8.4-10.2); Carbon Dioxide 25 mmol/L (22-29); Chloride 107 mmol/L (96-108); Creatinine Clr Calc Pharmacy 74.2; Estimated Glomerular Filt Rate > 60; Glucose Random 111 mg/dL (60-115); Sodium 141 mmol/L (135-145); Total Protein 6.5 g/dL (6.5-8.0)
[2020-12-03 18:43] VITALS: BP 88/44; PULSE 53; RESP 14; TEMP 36.6; O2SAT 95
[2020-12-03] MEDS: diphenhydrAMINE HCL 50 MG/ML VIAL 25 MG IVPUSH (20:01)
[2020-12-03] MEDS: ondansetron HCL 4 MG/2 ML VIAL IVPUSH (20:01)
[2020-12-03 20:11] VITALS: BP 94/51; PULSE 50; RESP 12; O2SAT 96
== END 2020-12-03 22:39 | disposition home or self-care (01) ==
PROVIDERS: Physician Assistant; Emergency Provider Emergency Medicine Emergency Medical Services; PCP Registered Nurse
DX: M54.5 Low back pain (principal); G89.29 Other chronic pain; R10.9 Unspecified abdominal pain; R32 Unspecified urinary incontinence; F11.10 Opioid abuse, uncomplicated; Z79.899 Other long term (current) drug therapy
CPT/HCPCS: 36415; 74018; 74176; 80048; 80076; 81001; 85025; 96374; 96375; 99284; J1200; J2405

== ENCOUNTER 2020-12-12 16:25 | Inpatient (IN) | payer MEDICARE, MEDICAID, SELFPAY ==
--- NOTE | ~2020-12-12 | CT_ITS ---
EXAMINATION: CT ANGIOGRAM OF THE CHEST WITH AND WITHOUT CONTRAST (CT PULMONARY ANGIOGRAM FOR PE) CLINICAL INFORMATION: Reason for Exam chest pain hx of PE COMPARISON: Chest radiograph earlier today TECHNIQUE: Prior to contrast administration, noncontrast localization images were obtained. Subsequently, multidetector volumetric imaging was performed from the thoracic inlet to below the diaphragms following the administration of 100 mL Omnipaque 350 intravenous contrast. No contrast reaction reported Sagittal, coronal, and MIP oblique sagittal reformatted images were obtained on the CT workstation, uploaded to PACS, and reviewed. This CT examination was performed using dose optimization techniques as appropriate, variously including the following: *Automated exposure control *Adjustment of mA and/or kV according to patient size (this includes techniques or standardized protocols for targeted exams where dose is matched to indication/reason for exam; i.e. extremities or head) *Use of iterative reconstruction technique Total exam dose-length product 644 mGy-cm FINDINGS: QUALITY OF STUDY/CONTRAST BOLUS: Satisfactory. PULMONARY ARTERIES: No central or segmental pulmonary emboli. THORACIC AORTA: No aneurysm or dissection. LUNG: Some mild increase in interstitial density is seen diffusely which could represent some mild edema. No focal worrisome mass or consolidation is seen. PLEURA: A loculated fluid is present in the major fissure on the right. MEDIASTINUM: Normal heart size. The central veins are not seen and appear to be atretic. No pericardial effusion. No hilar or mediastinal lymphadenopathy. No evidence of septal bowing or right heart strain. CHEST WALL/AXILLA: No axillary or internal mammary lymphadenopathy. OSSEOUS STRUCTURES: No acute or suspicious osseous abnormality. UPPER ABDOMEN: See report of abdominal CT same day There is of contrast into the hepatic veins to suggest elevated right heart pressures. CT/CT angio chest PE protocol IMPRESSION: 1. No evidence of pulmonary emboli. 2. Increased interstitial markings with pleural fluid loculated in right major fissure. Findings may represent mild CHF. Please correlate clinically. VTE: negative
--- NOTE | ~2020-12-12 | XR_ITS ---
EXAMINATION: XR CHEST CLINICAL INFORMATION: Chest pressure, shortness of breath, abdominal pain COMPARISON: Chest radiograph 04/10/2020 TECHNIQUE: 2 views of the chest were obtained. FINDINGS: The heart and mediastinum are normal in appearance. Small bilateral pleural effusions are seen tracking into the major fissures. Mild streaky opacity at the medial lung bases and right midlung. Moderate chronic apical pleural thickening. Mild vascular congestion. No acute osseous abnormality. A CT compatible IVC port as well as coils in the left upper quadrant of the abdomen are identified. XR/XR chest 2V IMPRESSION: Small bilateral pleural effusions with minimal streaky bibasilar opacities and right midlung and streaky opacity. Mild vascular congestion without interstitial or alveolar edema.
--- NOTE | ~2020-12-12 | CT_ITS ---
EXAMINATION: CT ABDOMEN AND PELVIS WITH CONTRAST CLINICAL INFORMATION: Vomiting with bloody stools COMPARISON: None TECHNIQUE: Multidetector volumetric images were obtained from the superior aspect of the liver through the pubic symphysis following administration 100 mL of Omnipaque 350 intravenous contrast. Sagittal and coronal reformatted images were obtained on the technologist's workstation. Oral contrast: No This CT examination was performed using dose optimization techniques as appropriate, variously including the following: *Automated exposure control *Adjustment of mA and/or kV according to patient size (this includes techniques or standardized protocols for targeted exams where dose is matched to indication/reason for exam; i.e. extremities or head) *Use of iterative reconstruction technique DLP: 185 mGy-cm FINDINGS: LUNG BASES: See report from chest CT same day. There is loculated fluid in the fissure on the right with increased interstitial markings bilaterally which may represent mild CHF calcified areas of pleural plaque present at the left lung base. LIVER, GALLBLADDER, AND BILIARY TREE: There is mild hepatic enlargement with the liver measuring 18.3 cm in cephalocaudad dimension. No bile duct dilatation or hepatic masses are seen. The gallbladder is unremarkable with no evidence of radiopaque gallstones, gallbladder wall thickening, or obvious pericholecystic inflammatory changes. PANCREAS: Unremarkable. SPLEEN: Unremarkable. ADRENAL GLANDS: Unremarkable. KIDNEYS AND URETERS: The kidneys are normal in size, shape, and attenuation. Left kidney measures 9.8 cm in the right 9.0 cm. Bilateral nephrograms are seen and good excretion into the pelvicalyceal systems are present bilaterally. No hydronephrosis, hydroureter, or calculi seen. No perinephric stranding. BLADDER: Unremarkable. GASTROINTESTINAL TRACT: The small and large bowel are unremarkable. The appendix is unremarkable. ABDOMINAL WALL: A translumbar right buttock Port-A-Cath is in place with its tip at the IVC right atrial junction. A small ventral and periumbilical hernia is seen containing only fat. There appears to have been repair of the left-sided abdominal wall hernia. LYMPH NODES: No retroperitoneal lymphadenopathy. VASCULAR: Unremarkable. PELVIC VISCERA: An anteverted uterus is present. An abnormal adnexal mass is not seen. A small amount of free pelvic fluid is present. OSSEOUS STRUCTURES: There is an exaggerated lumbar lordosis with some minimal grade 1 anterolisthesis with forward slippage of L5 upon S1. CT/CT abdomen pelvis w con IMPRESSION: No acute abnormality is seen. Incidental note made of mild hepatomegaly and a translumbar the Port-A-Cath.
[2020-12-12 16:53] VITALS: BP 90/26; PULSE 51; RESP 16; TEMP 37.1; O2SAT 96; BMI 28.3
--- NOTE | 2020-12-12 16:53 | ECG_ITS ---
Test Reason : SOB Blood Pressure : / mmHG Vent. Rate : 049 BPM Atrial Rate : 049 BPM P-R Int : 116 ms QRS Dur : 080 ms QT Int : 456 ms P-R-T Axes : 051 031 010 degrees QTc Int : 411 ms Sinus bradycardia Possible Left atrial enlargement Nonspecific ST and T wave abnormality Abnormal ECG No previous ECGs available Referred By: Robina Lund Electronically Signed By:EBER HUGHES MD
--- NOTE | 2020-12-12 16:55 | ED.GENADULT ---
HPI - General Adult General Chief complaint: Chest Pain <NIVIA Graham Last Filed: 12/12/20 17:00> Stated complaint: Chest pain, abnormal ekg <NIVIA Graham - Last Filed: 12/12/20 17:00> Time Seen by Provider: 12/12/20 16:53 <NIVIA Graham - Last Filed: 12/12/20 17:00> Source: patient <Cassie Shearer DO - Last Filed: 12/12/20 20:51> Mode of arrival: ambulatory <Cassie Shearer DO - Last Filed: 12/12/20 20:51> Limitations: no limitations <Cassie Shearer DO - Last Filed: 12/12/20 20:51> History of Present Illness MD complaint: abdominal pain, weakness, chest pain, sob <Cassie Shearer DO - Last Filed: 12/12/20 20:51> Onset (ago): week(s) (1) <Cassie Shearer DO - Last Filed: 12/12/20 20:51> Location: chest and abdomen <Cassie Shearer DO - Last Filed: 12/12/20 20:51> Radiation: non-radiation <Cassie Shearer DO - Last Filed: 12/12/20 20:51> Severity: moderate <Cassie Shearer DO - Last Filed: 12/12/20 20:51> Quality: constant <Cassie Shearer DO - Last Filed: 12/12/20 20:51> Pain Consistency: constant <Cassie Shearer DO - Last Filed: 12/12/20 20:51> Relieving factors: none <Cassie Shearer DO - Last Filed: 12/12/20 20:51> Exacerbating factors: none <Cassie Shearer DO - Last Filed: 12/12/20 20:51> Associated symptoms: chest pain, loss of appetite, malaise, nausea/vomiting and shortness of breath <Cassie Shearer DO - Last Filed: 12/12/20 20:51> Treatments prior to arrival: other (just admitted from Tuesday to Tuesday at [facility] for the same thing) <Cassie Shearer DO - Last Filed: 12/12/20 20:51> Related Data Home medications: Home Medications Medication Instructions Recorded Confirmed apremilast 30 mg tablet 30 mg PO BID 04/02/20 09/22/20 levetiracetam 750 mg tablet 750 mg PO BID 04/02/20 12/12/20 promethazine 25 mg tablet 25 mg PO Q6H PRN 04/02/20 09/22/20 promethazine 25 mg tablet 25 mg PO QID PRN 04/02/20 12/12/20 tizanidine 4 mg tablet 4 mg PO TID PRN 04/02/20 12/12/20 apixaban 5 mg tablet 5 mg PO BID 09/22/20 12/12/20 Previous Rx's Medication Instructions Recorded nitrofurantoin monohyd/m-cryst 100 mg PO Q12H 5 Days #10 cap 04/10/20 [Macrobid] promethazine 25 mg PO TID PRN #10 tab 04/10/20 hydromorphone 4 mg tablet 4 mg PO TID PRN 30 Days #90 tab 11/20/20 <NIVIA Graham - Last Filed: 12/12/20 17:00> Allergies/adverse reactions: Allergies Allergy/AdvReac Type Severity Reaction Status Date / Time ciprofloxacin [Cipro] Allergy Unknown unknown Verified 12/12/20 15:54 levofloxacin [Levaquin] Allergy Unknown unknown Verified 12/12/20 15:54 metoclopramide [Reglan] Allergy Unknown unknown Verified 12/12/20 15:54 ondansetron [Zofran] Allergy Unknown unknown Verified 12/12/20 15:54 penicillin V Allergy Unknown unknown Verified 12/12/20 15:54 Sulfa (Sulfonamide Allergy Unknown unknown Verified 12/12/20 15:54 Antibiotics) Compazine Allergy Unknown unknown Uncoded 12/12/20 15:54 Thalomid Allergy Unknown unknown Uncoded 12/12/20 15:54 <NIVIA Graham - Last Filed: 12/12/20 17:00> Review of Systems Review of Systems: Constitutional : No Weight loss, No Fever, No Chills, pos Fatigue, pos Malaise ENT/Mouth : No sore throat, No Rhinorrhea Eyes: No Eye Pain, No Swelling, No Redness Cardiovascular : pos Chest Pain, pos SOB, No Dyspnea on Exertion, No Orthopnea, No Edema, No Palpitations Respiratory : No Cough, No Sputum, No Wheezing Gastrointestinal : pos Nausea, pos Vomiting, pos Diarrhea, No Constipation, pos abdominal Pain, No Hematochezia, No Melena Genitourinary : No Dysuria, No Urinary Frequency, No Hematuria, Musculoskeletal : No joint pain, No Myalgias, No Joint Swelling Skin : No Skin Lesions, No rash Neuro : pos Weakness, No Numbness, No Dizziness, No Headache Psych : No Anxiety/Panic, No Depression Heme/Lymph: No Bruising, pos Bleeding,No Lymphadenopathy Endocrine : No Polyuria, No Polydipsia All other systems reviewed and are negative <Cassie Shearer DO - Last Filed: 12/12/20 20:51> COUNTS INCLUDE 234 BEDS AT THE [facility] Past Medical History Attestation statement: The following information was validated with the patient. <Cassie Shearer DO - Last Filed: 12/12/20 20:51> Medical History: Medical History Behcet's disease Cervicalgia Chronic pain syndrome Crohn's disease Gastroparesis Low back pain Spontaneous pneumothorax <NIVIA Graham - Last Filed: 12/12/20 17:00> Social History Social History: Social History Alcohol intake: never Patient Tobacco Use Status: Never used Tobacco Use of substances other than those prescribed or required for medical reasons: No Advance Directives: No Advance Directives Information Provided: Yes Patient : No <NIVIA Graham - Last Filed: 12/12/20 17:00> Physical Exam Vital Signs: Vital Signs: Last Vital Signs Temp 97.7 F 12/12/20 20:25 Pulse 52 12/12/20 20:25 Resp 12/12/20 20:25 BP 110/71 12/12/20 20:25 Pulse Ox 98 12/12/20 20:25 Body Mass Index 28.3 <NIVIA Graham - Last Filed: 12/12/20 17:00> Vital Signs: Last Vital Signs Temp 97.7 F 12/12/20 20:25 Pulse 52 12/12/20 20:25 Resp 14 12/12/20 20:25 BP 110/71 12/12/20 20:25 Pulse Ox 98 12/12/20 20:25 Body Mass Index 28.3 <Cassie Shearer DO - Last Filed: 12/12/20 20:51> Appearance: Alert. Oriented X3. No acute distress. Flat affect Eyes: Pupils equal, round and reactive to light. ENT: Pharynx normal. Neck: Normal inspection. Neck supple. CVS: Normal heart rate and rhythm. Pulses normal. Respiratory: No respiratory distress. Breath sounds normal. Abdomen: Soft and diffuse ttp mild no rebound or guarding Skin: Skin warm and dry. pale skin color. Normal skin turgor. Extremities: No lower extremity edema. No calf ttp Neuro: Oriented X 3. No motor deficit. No sensory deficit. <Cassie Shearer DO - Last Filed: 12/12/20 20:51> Course Course Course Narrative: 16:55pm - 40 year old female presenting to the ED after being sent from the Urgent Care for abnormal EKG she went to the urgent care due to she was having nausea/vomiting and abdominal pain which moved up into her chest and now she has associated chest pressure and shortness of breath x 3 days. Recent endoscopy at [facility] on Tuesday for dilation. Then went back Tuesday due to worsening N/V and had low BP and was admitted for IVF's and discharged Tuesday despite pt reporting she still had lightheadedness and other symptoms and told her to f/u. Reports she had a syncopal episode yesterday and she called for help and dispatch arrived to her house and they report she did not have to come to the emergency department. At this time patient is alert and oriented x3. No focal neuro deficits are noted. Patient is hypotensive at 90/26 and bradycardic at 51 otherwise all other vitals are within normal limits therefore she is having EKG at this time and she will be brought into the emergency department for further evaluation and treatment at this time. Labs, EKG, chest x-ray, blood cultures and lactic acid ordered at this time <NIVIA Graham - Last Filed: 12/12/20 17:00> review of [facility] records, underwent pylorus dilation, during admission they felt her biggest complaint was pain and that this was likely complex in nature and multifactorial and patient would benefit from outpatient pain management possible mild CHF - had significant amount of fluid resuscitation at [facility] recently she has been 98% at this time will likely need IV gentle diuresis and monitoring of her BP will admit, as for abdominal pain this is chronic in nature, will discuss with hospitalist. c/o dyspnea - the pateint has CHF on CTA, lasix and albumin ordered, BNP 595 - new, will admit for CHF vs fluid overload from visit at [facility] hypotension due to chronic bradycardia/hypotension and not infection or severe sepsis <Cassie Shearer DO - Last Filed: 12/12/20 20:51> Medical Decision Making MDM Narrative Medical decision making narrative: 40 yo female with hx of GIB, abdominal pain, chronic pain syndrome, Behcets, VTE on eliquis comes in with c/o not feeling well this week including abdominal pain, n/v/d , one episode of brb noted yesterday, feels short of breath, had an admission Tuesday - Tuesday at [facility] for same complaint, cleared and DC< when asked why she came here given most of her care has been at [facility] she notes that she felt sob on discharge and they sent her home anyways, at this time will need labs, CT of chest/abdomen for PE/infection/obstruction, IVF, IV diluaid for pain, unsure if this is a chronic issue vs new complaint, dispo per results and findings. <Cassie Shearer DO - Last Filed: 12/12/20 20:51> Lab Data Result diagrams: : 12/12/20 18:04 12/12/20 18:04 <NIVIA Graham - Last Filed: 12/12/20 17:00> Labs: Lab Results 12/12/20 12/12/20 12/12/20 Range/Units 18:00 18:03 18:03 WBC (4.8-10.8) X10*3/uL RBC (4.20-5.50) X10*6/uL Hgb (12.0-16.0) g/dl Hct (37-47) % MCV (80-98) fL MCH (27.0-33.0) pg MCHC (31.0-35.0) g/dl RDW (11.0-16.0) % Plt Count (160-400) X10*3/uL MPV (9.4-12.3) fL Immature Gran % (Auto) (0.0-0.4) % Neut % (Auto) (45-73) % Lymph % (Auto) (20-40) % [place] % (Auto) (2-11) % Eos % (Auto) (0-4) % Baso % (Auto) (0-2) % Lymph # (Auto) (1.2-4.9) X10*3/uL [place] # (Auto) (0.1-1.2) X10*3/uL Eos # (Auto) (0.0-0.4) X10*3/uL Baso # (Auto) (0.0-0.2) X10*3/uL Abs Immat Gran (auto) (0.00-0.03) X10*3/uL Absolute Neuts (auto) (2.0-8.3) X10*3/uL Absolute Nucleated RBC (0.0-0.012) X10*3/uL Nucleated RBC % (auto) (0.0-0.2) /100WBC PT (9.9-13.0) SEC INR (0.9-1.1) Sodium (135-145) mmol/L Potassium (3.3-5.1) mmol/L Chloride (96-108) mmol/L Carbon Dioxide (22-29) mmol/L Anion Gap (12-20) BUN (9-16) mg/dL Creatinine (0.5-1.4) mg/dL Estim Creat Clear Calc Estimated GFR Random Glucose (60-115) mg/dL Lactic Acid 0.9 (0.5-2.0) mmol/L Calcium (8.4-10.2) mg/dL Magnesium (1.6-2.6) mg/dL Total Bilirubin (0.0-1.0) mg/dL AST (5-31) U/L ALT (0-31) U/L Alkaline Phosphatase (39-117) U/L Troponin I High Sens < 3.5 (<3.5-17.0) ng/L B-Natriuretic Peptide (<100) pg/mL Total Protein (6.5-8.0) g/dL Albumin (3.5-5.0) g/dL Lipase (8-78) U/L Beta HCG, Quant mIU/mL Stool Occult Blood NEGATIVE (NEGATIVE) COVID-19 ([facility]NA) (Negative) COVID-19 Clin Com 12/12/20 12/12/20 12/12/20 Range/Units 18:04 18:04 18:04 WBC 4.3 L (4.8-10.8) X10*3/uL RBC 3.67 L (4.20-5.50) X10*6/uL Hgb 11.1 L (12.0-16.0) g/dl Hct 32.3 L (37-47) % MCV 88.0 (80-98) fL MCH 30.2 (27.0-33.0) pg MCHC 34.4 (31.0-35.0) g/dl RDW 13.0 (11.0-16.0) % Plt Count 185 (160-400) X10*3/uL MPV 11.3 (9.4-12.3) fL Immature Gran % (Auto) 0.7 H (0.0-0.4) % Neut % (Auto) 62.1 (45-73) % Lymph % (Auto) 25.2 (20-40) % [place] % (Auto) 8.8 (2-11) % Eos % (Auto) 2.5 (0-4) % Baso % (Auto) 0.7 (0-2) % Lymph # (Auto) 1.1 L (1.2-4.9) X10*3/uL [place] # (Auto) 0.4 (0.1-1.2) X10*3/uL Eos # (Auto) 0.1 (0.0-0.4) X10*3/uL Baso # (Auto) 0.0 (0.0-0.2) X10*3/uL Abs Immat Gran (auto) 0.03 (0.00-0.03) X10*3/uL Absolute Neuts (auto) 2.7 (2.0-8.3) X10*3/uL Absolute Nucleated RBC 0.000 (0.0-0.012) X10*3/uL Nucleated RBC % (auto) 0.0 (0.0-0.2) /100WBC PT (9.9-13.0) SEC INR (0.9-1.1) Sodium 140 (135-145) mmol/L Potassium 3.8 (3.3-5.1) mmol/L Chloride 104 (96-108) mmol/L Carbon Dioxide 25 (22-29) mmol/L Anion Gap 15 (12-20) BUN 11 (9-16) mg/dL Creatinine 0.71 (0.5-1.4) mg/dL Estim Creat Clear Calc 83.6 Estimated GFR > 60 Random Glucose 98 (60-115) mg/dL Lactic Acid (0.5-2.0) mmol/L Calcium 8.7 (8.4-10.2) mg/dL Magnesium 2.1 (1.6-2.6) mg/dL Total Bilirubin 0.3 (0.0-1.0) mg/dL AST 17 (5-31) U/L ALT 8 (0-31) U/L Alkaline Phosphatase 57 D (39-117) U/L Troponin I High Sens (<3.5-17.0) ng/L B-Natriuretic Peptide (<100) pg/mL Total Protein 6.4 L (6.5-8.0) g/dL Albumin 4.0 (3.5-5.0) g/dL Lipase 5 L (8-78) U/L Beta HCG, Quant 8 mIU/mL Stool Occult Blood (NEGATIVE) COVID-19 (CHANA) (Negative) COVID-19 Clin Com 12/12/20 12/12/20 12/12/20 Range/Units 18:05 18:05 20:09 WBC (4.8-10.8) X10*3/uL RBC (4.20-5.50) X10*6/uL Hgb (12.0-16.0) g/dl Hct (37-47) % MCV (80-98) fL MCH (27.0-33.0) pg MCHC (31.0-35.0) g/dl RDW (11.0-16.0) % Plt Count (160-400) X10*3/uL MPV (9.4-12.3) fL Immature Gran % (Auto) (0.0-0.4) % Neut % (Auto) (45-73) % Lymph % (Auto) (20-40) % [place] % (Auto) (2-11) % Eos % (Auto) (0-4) % Baso % (Auto) (0-2) % Lymph # (Auto) (1.2-4.9) X10*3/uL [place] # (Auto) (0.1-1.2) X10*3/uL Eos # (Auto) (0.0-0.4) X10*3/uL Baso # (Auto) (0.0-0.2) X10*3/uL Abs Immat Gran (auto) (0.00-0.03) X10*3/uL Absolute Neuts (auto) (2.0-8.3) X10*3/uL Absolute Nucleated RBC (0.0-0.012) X10*3/uL Nucleated RBC % (auto) (0.0-0.2) /100WBC PT 13.1 H (9.9-13.0) SEC INR 1.2 H (0.9-1.1) Sodium (135-145) mmol/L Potassium (3.3-5.1) mmol/L Chloride (96-108) mmol/L Carbon Dioxide (22-29) mmol/L Anion Gap (12-20) BUN (9-16) mg/dL Creatinine (0.5-1.4) mg/dL Estim Creat Clear Calc Estimated GFR Random Glucose (60-115) mg/dL Lactic Acid (0.5-2.0) mmol/L Calcium (8.4-10.2) mg/dL Magnesium (1.6-2.6) mg/dL Total Bilirubin (0.0-1.0) mg/dL AST (5-31) U/L ALT (0-31) U/L Alkaline Phosphatase (39-117) U/L Troponin I High Sens (<3.5-17.0) ng/L B-Natriuretic Peptide 595 H (<100) pg/mL Total Protein (6.5-8.0) g/dL Albumin (3.5-5.0) g/dL Lipase (8-78) U/L Beta HCG, Quant mIU/mL Stool Occult Blood (NEGATIVE) COVID-19 ([facility]NA) Negative (Negative) COVID-19 Clin Com See Note <NIVIA Graham - Last Filed: 12/12/20 17:00> Lab Results 12/12/20 12/12/20 12/12/20 Range/Units 18:00 18:03 18:03 WBC (4.8-10.8) X10*3/uL RBC (4.20-5.50) X10*6/uL Hgb (12.0-16.0) g/dl Hct (37-47) % MCV (80-98) fL MCH (27.0-33.0) pg MCHC (31.0-35.0) g/dl RDW (11.0-16.0) % Plt Count (160-400) X10*3/uL MPV (9.4-12.3) fL Immature Gran % (Auto) (0.0-0.4) % Neut % (Auto) (45-73) % Lymph % (Auto) (20-40) % [place] % (Auto) (2-11) % Eos % (Auto) (0-4) % Baso % (Auto) (0-2) % Lymph # (Auto) (1.2-4.9) X10*3/uL [place] # (Auto) (0.1-1.2) X10*3/uL Eos # (Auto) (0.0-0.4) X10*3/uL Baso # (Auto) (0.0-0.2) X10*3/uL Abs Immat Gran (auto) (0.00-0.03) X10*3/uL Absolute Neuts (auto) (2.0-8.3) X10*3/uL Absolute Nucleated RBC (0.0-0.012) X10*3/uL Nucleated RBC % (auto) (0.0-0.2) /100WBC PT (9.9-13.0) SEC INR (0.9-1.1) Sodium (135-145) mmol/L Potassium (3.3-5.1) mmol/L Chloride (96-108) mmol/L Carbon Dioxide (22-29) mmol/L Anion Gap (12-20) BUN (9-16) mg/dL Creatinine (0.5-1.4) mg/dL Estim Creat Clear Calc Estimated GFR Random Glucose (60-115) mg/dL Lactic Acid 0.9 (0.5-2.0) mmol/L Calcium (8.4-10.2) mg/dL Magnesium (1.6-2.6) mg/dL Total Bilirubin (0.0-1.0) mg/dL AST (5-31) U/L ALT (0-31) U/L Alkaline Phosphatase (39-117) U/L Troponin I High Sens < 3.5 (<3.5-17.0) ng/L B-Natriuretic Peptide (<100) pg/mL Total Protein (6.5-8.0) g/dL Albumin (3.5-5.0) g/dL Lipase (8-78) U/L Beta HCG, Quant mIU/mL Stool Occult Blood NEGATIVE (NEGATIVE) COVID-19 ([facility]NA) (Negative) COVID-19 Clin Com 12/12/20 12/12/20 12/12/20 Range/Units 18:04 18:04 18:04 WBC 4.3 L (4.8-10.8) X10*3/uL RBC 3.67 L (4.20-5.50) X10*6/uL Hgb 11.1 L (12.0-16.0) g/dl Hct 32.3 L (37-47) % MCV 88.0 (80-98) fL MCH 30.2 (27.0-33.0) pg MCHC 34.4 (31.0-35.0) g/dl RDW 13.0 (11.0-16.0) % Plt Count 185 (160-400) X10*3/uL MPV 11.3 (9.4-12.3) fL Immature Gran % (Auto) 0.7 H (0.0-0.4) % Neut % (Auto) 62.1 (45-73) % Lymph % (Auto) 25.2 (20-40) % [place]undy % (Auto) 8.8 (2-11) % Eos % (Auto) 2.5 (0-4) % Baso % (Auto) 0.7 (0-2) % Lymph # (Auto) 1.1 L (1.2-4.9) X10*3/uL [place]undy # (Auto) 0.4 (0.1-1.2) X10*3/uL Eos # (Auto) 0.1 (0.0-0.4) X10*3/uL Baso # (Auto) 0.0 (0.0-0.2) X10*3/uL Abs Immat Gran (auto) 0.03 (0.00-0.03) X10*3/uL Absolute Neuts (auto) 2.7 (2.0-8.3) X10*3/uL Absolute Nucleated RBC 0.000 (0.0-0.012) X10*3/uL Nucleated RBC % (auto) 0.0 (0.0-0.2) /100WBC PT (9.9-13.0) SEC INR (0.9-1.1) Sodium 140 (135-145) mmol/L Potassium 3.8 (3.3-5.1) mmol/L Chloride 104 (96-108) mmol/L Carbon Dioxide 25 (22-29) mmol/L Anion Gap 15 (12-20) BUN 11 (9-16) mg/dL Creatinine 0.71 (0.5-1.4) mg/dL Estim Creat Clear Calc 83.6 Estimated GFR > 60 Random Glucose 98 (60-115) mg/dL Lactic Acid (0.5-2.0) mmol/L Calcium 8.7 (8.4-10.2) mg/dL Magnesium 2.1 (1.6-2.6) mg/dL Total Bilirubin 0.3 (0.0-1.0) mg/dL AST 17 (5-31) U/L ALT 8 (0-31) U/L Alkaline Phosphatase 57 D (39-117) U/L Troponin I High Sens (<3.5-17.0) ng/L B-Natriuretic Peptide (<100) pg/mL Total Protein 6.4 L (6.5-8.0) g/dL Albumin 4.0 (3.5-5.0) g/dL Lipase 5 L (8-78) U/L Beta HCG, Quant 8 mIU/mL Stool Occult Blood (NEGATIVE) COVID-19 ([facility]NA) (Negative) COVID-19 Clin Com 12/12/20 12/12/20 12/12/20 Range/Units 18:05 18:05 20:09 WBC (4.8-10.8) X10*3/uL RBC (4.20-5.50) X10*6/uL Hgb (12.0-16.0) g/dl Hct (37-47) % MCV (80-98) fL MCH (27.0-33.0) pg MCHC (31.0-35.0) g/dl RDW (11.0-16.0) % Plt Count (160-400) X10*3/uL MPV (9.4-12.3) fL Immature Gran % (Auto) (0.0-0.4) % Neut % (Auto) (45-73) % Lymph % (Auto) (20-40) % [place] % (Auto) (2-11) % Eos % (Auto) (0-4) % Baso % (Auto) (0-2) % Lymph # (Auto) (1.2-4.9) X10*3/uL [place] # (Auto) (0.1-1.2) X10*3/uL Eos # (Auto) (0.0-0.4) X10*3/uL Baso # (Auto) (0.0-0.2) X10*3/uL Abs Immat Gran (auto) (0.00-0.03) X10*3/uL Absolute Neuts (auto) (2.0-8.3) X10*3/uL Absolute Nucleated RBC (0.0-0.012) X10*3/uL Nucleated RBC % (auto) (0.0-0.2) /100WBC PT 13.1 H (9.9-13.0) SEC INR 1.2 H (0.9-1.1) Sodium (135-145) mmol/L Potassium (3.3-5.1) mmol/L Chloride (96-108) mmol/L Carbon Dioxide (22-29) mmol/L Anion Gap (12-20) BUN (9-16) mg/dL Creatinine (0.5-1.4) mg/dL Estim Creat Clear Calc Estimated GFR Random Glucose (60-115) mg/dL Lactic Acid (0.5-2.0) mmol/L Calcium (8.4-10.2) mg/dL Magnesium (1.6-2.6) mg/dL Total Bilirubin (0.0-1.0) mg/dL AST (5-31) U/L ALT (0-31) U/L Alkaline Phosphatase (39-117) U/L Troponin I High Sens (<3.5-17.0) ng/L B-Natriuretic Peptide 595 H (<100) pg/mL Total Protein (6.5-8.0) g/dL Albumin (3.5-5.0) g/dL Lipase (8-78) U/L Beta HCG, Quant mIU/mL Stool Occult Blood (NEGATIVE) COVID-19 ([facility]NA) Negative (Negative) COVID-19 Clin Com See Note <Cassie Shearer DO - Last Filed: 12/12/20 20:51> ECG Data Attestation: I personally reviewed and interpreted this ECG as follows: <Cassie Shearer DO - Last Filed: 12/12/20 20:51> Interpretation: Rate: 79 Rhythm: sinus bradycardia [place]: normal Normal P waves. Normal [place]. Normal QRS complex. ST T wave : nonspecific, inverted V1V3 no [place] qTC: normal prior studies: no priors available The study has been interpreted contemporaneously by me. . <Cassie Shearer DO - Last Filed: 12/12/20 20:51> Discharge Plan Discharge Clinical Impression: CHF (congestive heart failure), Acute dyspnea, Abdominal pain, chronic, generalized <NIVIA Graham - Last Filed: 12/12/20 17:00> Patient Disposition: Admitted As Inpatient <NIVIA Graham - Last Filed: 12/12/20 17:00> Prescriptions: No Action nitrofurantoin monohyd/m-cryst [Macrobid] 100 mg capsule 100 mg PO Q12H 5 Days Qty: 10 RF: 0 promethazine 25 mg tablet 25 mg PO TID PRN (Reason: nausea and vomiting) Qty: 10 RF: 0 tizanidine 4 mg tablet 4 mg PO TID PRNRF: 0 promethazine 25 mg tablet 25 mg PO QID PRN (Reason: nausea) RF: 0 levetiracetam [Keppra] 750 mg tablet 750 mg PO BID RF: 0 promethazine 25 mg tablet 25 mg PO Q6H PRNRF: 0 Otezla 30 mg tablet 30 mg PO BID RF: 0 Eliquis 5 mg tablet 5 mg PO BID RF: 0 hydromorphone 4 mg tablet 4 mg PO TID PRN (Reason: pain) 30 Days Qty: 90 RF: 0 <NIVIA Graham - Last Filed: 12/12/20 17:00>
[2020-12-12 18:09] VITALS: BP 100/59; PULSE 49; RESP 17; TEMP 36.6; O2SAT 98
[2020-12-12 18:12] VITALS: RESP 17
[2020-12-12] MEDS: ondansetron HCL 4 MG/2 ML VIAL IVPUSH (18:12)
[2020-12-12] MEDS: HYDROmorphone HCl 1 MG/ML SYRINGE IVPUSH (18:12)
[2020-12-12 18:13] LABS: MANUAL DIFF FLAG NO
[2020-12-12] MEDS: diphenhydrAMINE HCL 50 MG/ML VIAL 25 MG IVPUSH ×2 (18:13→20:32)
[2020-12-12] MEDS: 0.9 % Sodium Chloride 1,000 ML 999 ML IVCONT ×2 (18:13→20:25)
--- NOTE | 2020-12-12 18:16 | PC.NURSE ---
powerport accessed, labs drawn, ivf running per order, covid swab obtained, pt medicated per order, vss, will continue to monitor
[2020-12-12 18:19] LABS: OBS Int Ctl Valid YES; OBS1 NEGATIVE (NEGATIVE)
[2020-12-12 18:19] LABS: INTERNATIONAL NORM RATIO 1.2 (0.9-1.1); Prothrombin Time 13.1 SEC (9.9-13.0)
[2020-12-12 18:29] LABS: Basophils Percent Auto 0.7 % (0-2); Eosinophils Absolute Auto 0.1 X10*3/uL (0.0-0.4); Eosinophils Percent Auto 2.5 % (0-4); Hematocrit 32.3 % (37-47); Hemoglobin 11.1 g/dl (12.0-16.0); Imm Gran Abs Auto 0.03 X10*3/uL (0.00-0.03); Imm Gran Pct Auto 0.7 % (0.0-0.4); Lymphocytes Absolute Auto 1.1 X10*3/uL (1.2-4.9); Lymphocytes Percent Auto 25.2 % (20-40); Mean Corpuscular HGB Conc 34.4 g/dl (31.0-35.0); Mean Corpuscular Hemoglobin 30.2 pg (27.0-33.0); Mean Platelet Volume 11.3 fL (9.4-12.3); Monocytes Absolute Auto 0.4 X10*3/uL (0.1-1.2); Monocytes Percent Auto 8.8 % (2-11); Neutrophils Absolute Auto 2.7 X10*3/uL (2.0-8.3); Neutrophils Percent Auto 62.1 % (45-73); Platelet Count 185 X10*3/uL (160-400); Red Blood Count 3.67 X10*6/uL (4.20-5.50); White Blood Count 4.3 X10*3/uL (4.8-10.8)
[2020-12-12 18:36] LABS: Lactic Acid 0.9 mmol/L (0.5-2.0)
[2020-12-12 18:41] LABS: Alanine Aminotransferase 8 U/L (0-31); Alkaline Phosphatase 57 U/L (39-117); Anion Gap 15 (12-20); Aspartate Amino Transferase 17 U/L (5-31); Bilirubin Total 0.3 mg/dL (0.0-1.0); Blood Urea Nitrogen 11 mg/dL (9-16); Calcium 8.7 mg/dL (8.4-10.2); Carbon Dioxide 25 mmol/L (22-29); Chloride 104 mmol/L (96-108); Creatinine Clr Calc Pharmacy 83.6; Estimated Glomerular Filt Rate > 60; Glucose Random 98 mg/dL (60-115); Lipase 5 U/L (8-78); Potassium 3.8 mmol/L (3.3-5.1); Sodium 140 mmol/L (135-145); Total Protein 6.4 g/dL (6.5-8.0)
[2020-12-12 18:45] LABS: Troponin-I High Sensitivity < 3.5 ng/L (<3.5-17.0)
[2020-12-12 18:49] LABS: HCG Quantitative 8 mIU/mL
[2020-12-12 19:03] LABS: Magnesium 2.1 mg/dL (1.6-2.6)
--- NOTE | 2020-12-12 19:05 | PC.NURSE ---
pt to ct scan
[2020-12-12 20:25] VITALS: BP 110/71; PULSE 52; RESP 14; TEMP 36.5; O2SAT 98
[2020-12-12 20:35] VITALS: PULSE 61
[2020-12-12 20:46] LABS: COVID-19 Test Negative (Negative); IDNOW Serial# 9DD0AD1C
[2020-12-12 20:47] LABS: B Type Natriuretic Peptide 595 pg/mL (<100)
[2020-12-12] MEDS: Albumin Human 25 % 100 ML IV (21:12)
[2020-12-12] MEDS: Furosemide 20 MG/2 ML VIAL IVPUSH (21:13)
--- NOTE | 2020-12-12 22:03 | PHA.MEDREC ---
Pharmacy Consult ? Medication Reconciliation Pharmacy has completed the medication reconciliation. There are no remarkable issues for provider's attention. Yaquelin Luther, SadeD
--- NOTE | 2020-12-12 22:13 | MHC.CM.ED ---
CM met with patient pending admission to the floor. IMM was reviewed and signed per protocol 12/12/20@[id number]. HCP is Cassie Holloway ([phone]) and is not on file. Copy requested. Pt insurance confirmed medicare/medicaid, not [employer]. Pt lives with her 17 year old son. Has no DME, has no services. D/C plan is home without services. Transportation to be arranged by pt. CM will follow for d/c needs.
[2020-12-12 22:28] VITALS: BP 129/65; PULSE 55; RESP 12; TEMP 36.6; O2SAT 97
--- NOTE | 2020-12-12 23:19 | P.HPHOSP_ITS ---
History of Present Illness Date of Service: 12/12/20 Chief Complaint: Abdominal pain 40-year-old female with a past medical history of Behcet's disease, Crohn's disease, gastroparesis, chronic pain syndrome on opiates, degenerative spine disease, chronic low back pain, history of spontaneous pneumothorax status post pleurodesis, history of DVT/PE on Eliquis, ovarian cysts, asthma, CVA, history of spinal stenosis/urinary incontinence; history of port placement presented to the hospital with a chief complaint of nausea vomiting and abdominal discomfort. Patient reports that she was recently admitted to the [facility]- with similar complaints, had endoscopy done with pylorus dilation; discharged a bout 2 days ago; presented to the hospital today with similar complaints of nausea vomiting and abdominal discomfort. Patient reports she has not been eating good. Denies any blood in the vomitus. Patient reports abdominal discomfort-pain is chronic unchanged. Reports she noticed blood in the stool 2 days ago; reports is normal for her Crohn's; denies any fever chills cough denies any chest pain palpitations lightheadedness dizziness or shortness of breath. Denies any numbness tingling. Denies any urinary symptoms Review of all other systems is negative except mentioned above ER course: For ER team patient on presentation noted to have soft blood pressure; given 2 L of fluids; blood pressure improved. A follow-up imaging showed pulmonary edema; patient was given Lasix. Admitted to the hospital for further management [facility] Medical History (Updated 12/20/20 @ 00:03 by Aditya Liang) Abdominal pain Abdominal pain, chronic, generalized Behcet's disease Cervicalgia Chronic pain syndrome Crohn's disease Gastroparesis Low back pain Spondylolisthesis, lumbar region Spondylosis of lumbar region without myelopathy or radiculopathy Spontaneous pneumothorax Social History Housing: Condominium Do you presently have visiting nurse or other home services: No Alcohol intake: never Patient Tobacco Use Status: Never used Tobacco service: No Current occupational status: unemployed Meds Allergies Allergy/AdvReac Type Severity Reaction Status Date / Time ciprofloxacin [Cipro] Allergy Unknown unknown Verified 12/18/20 09:02 levofloxacin [Levaquin] Allergy Unknown unknown Verified 12/18/20 09:02 metoclopramide [Reglan] Allergy Unknown unknown Verified 12/18/20 09:02 ondansetron [Zofran] Allergy Unknown unknown Verified 12/18/20 09:02 penicillin V Allergy Unknown unknown Verified 12/18/20 09:02 Sulfa (Sulfonamide Allergy Unknown unknown Verified 12/18/20 09:02 Antibiotics) prochlorperazine Allergy unknown Verified 12/18/20 09:02 [From Compazine] thalidomide [From Thalomid] Allergy unknown Verified 12/18/20 09:02 Active Medications: Current Medications Generic Name Dose Route Start Last Admin Trade Name Freq PRN Reason Stop Dose Admin Acetaminophen 650 mg 12/12/20 23:14 Acetaminophen 325 Mg Tablet PO Q6H PRN Pain, Mild (Pain Scale 1-3) Albuterol Sulfate 2 puff 12/12/20 23:17 Albuterol Sulfate 90 Mcg 8 Gm Inhaler INHALE Q4H PRN Wheezing Apixaban 5 mg 12/13/20 09:00 Apixaban 5 Mg Tablet PO BID ANNA Fluticasone/Vilanterol 1 puff 12/12/20 23:30 Fluticasone/Vilanterol 200/25 Blst.W.Dev INHALE Q24H [facility] Hydromorphone HCl 0.5 mg 12/12/20 23:18 Hydromorphone Hcl 0.5 Mg/0.5 Ml Syringe IVPUSH Q4H PRN Breakthrough Pain Non-Formulary Medication 7 ml 12/13/20 09:00 Levetiracetam PO BID [facility] Non-Formulary Medication 1 inhalation 12/13/20 09:00 Umeclidinium [Incruse Ellipta] INHALE DAILY [facility] Pharmacy Consult 1 each 12/12/20 21:28 Consult Rx Perform Med Rec MISCELLANE ONCE PRN Consult order Promethazine HCl 25 mg 12/12/20 23:17 Promethazine Hcl 25 Mg Tablet PO QID PRN nausea Sodium Chloride 3 ml 12/13/20 00:00 0.9 % Sodium Chloride Flush 3 Ml Syringe IVFLUSH QSHIFT ANNA Tizanidine HCl 4 mg 12/12/20 23:17 Tizanidine Hcl 4 Mg Tablet PO TID PRN Muscle Spasm Home Medications Medication Instructions Recorded Confirmed Last Taken Type promethazine 25 mg tablet 25 mg PO QID PRN 04/02/20 12/12/20 Unknown History tizanidine 4 mg tablet 4 mg PO TID PRN 04/02/20 12/12/20 Unknown History apixaban 5 mg tablet (Eliquis) 5 mg PO BID 09/22/20 12/12/20 12/12/20 History albuterol sulfate 90 mcg/actuation 2 puff INHALATION Q4H PRN 12/12/20 12/12/20 Unknown History aerosol inhaler fluticasone furoate 200 1 inh INHALATION Q24H 12/12/20 12/12/20 Unknown History mcg-vilanterol 25 mcg/dose inhalation powder (Breo Ellipta) levetiracetam 100 mg/mL oral 7 ml PO BID 12/12/20 12/12/20 12/12/20 History solution umeclidinium 62.5 mcg/actuation 1 inh INHALATION DAILY 12/12/20 12/12/20 Unknown History blister powder for inhalation (Incruse Ellipta) Physical Exam Vital Signs and Narrative: Vital Signs: Last Vital Signs Temp 97.8 F 12/12/20 22:28 Pulse 55 12/12/20 22:28 Resp 12 12/12/20 22:28 BP 129/65 12/12/20 22:28 Pulse Ox 97 12/12/20 22:28 Body Mass Index 28.3 Gen: Appears be in no acute distress HEENT: NCAT, Moist mucosa. Pulmonary: Vesicular breath sounds, fair air entry CVS: Normal S1-S2 Abdomen: BS+, Soft, Nontender Extremities: Warm well perfused Neuro: Alert and awake. Results Labs CBC and Chem 7: 12/14/20 06:22 12/14/20 06:22 Labs: Laboratory Results - last 24 hr 12/12/20 12/12/20 12/12/20 18:00 18:03 18:03 MCV MCH MCHC RDW Plt Count MPV Immature Gran % (Auto) Neut % (Auto) Lymph % (Auto) [place] % (Auto) Eos % (Auto) Baso % (Auto) Lymph # (Auto) [place] # (Auto) Eos # (Auto) Baso # (Auto) Abs Immat Gran (auto) Absolute Neuts (auto) Absolute Nucleated RBC Nucleated RBC % (auto) PT INR Anion Gap Estim Creat Clear Calc Estimated GFR Random Glucose Lactic Acid 0.9 Calcium Magnesium Total Bilirubin AST ALT Alkaline Phosphatase Troponin I High Sens < 3.5 B-Natriuretic Peptide Total Protein Albumin Lipase Beta HCG, Quant Stool Occult Blood NEGATIVE COVID-19 (CHANA) [employer] Com Blood Type Antibody Screen 12/12/20 12/12/20 12/12/20 18:04 18:04 18:04 MCV 88.0 MCH 30.2 MCHC 34.4 RDW 13.0 Plt Count 185 MPV 11.3 Immature Gran % (Auto) 0.7 H Neut % (Auto) 62.1 Lymph % (Auto) 25.2 [place] % (Auto) 8.8 Eos % (Auto) 2.5 Baso % (Auto) 0.7 Lymph # (Auto) 1.1 L [place] # (Auto) 0.4 Eos # (Auto) 0.1 Baso # (Auto) 0.0 Abs Immat Gran (auto) 0.03 Absolute Neuts (auto) 2.7 Absolute Nucleated RBC 0.000 Nucleated RBC % (auto) 0.0 PT INR Anion Gap 15 Estim Creat Clear Calc 83.6 Estimated GFR > 60 Random Glucose 98 Lactic Acid Calcium 8.7 Magnesium 2.1 Total Bilirubin 0.3 AST 17 ALT 8 Alkaline Phosphatase 57 D Troponin I High Sens B-Natriuretic Peptide Total Protein 6.4 L Albumin 4.0 Lipase 5 L Beta HCG, Quant 8 Stool Occult Blood COVID-19 (CHANA) [employer] Blood Type Antibody Screen 12/12/20 12/12/20 12/12/20 18:05 18:05 20:09 MCV MCH MCHC RDW Plt Count MPV Immature Gran % (Auto) Neut % (Auto) Lymph % (Auto) [place] % (Auto) Eos % (Auto) Baso % (Auto) Lymph # (Auto) [place] # (Auto) Eos # (Auto) Baso # (Auto) Abs Immat Gran (auto) Absolute Neuts (auto) Absolute Nucleated RBC Nucleated RBC % (auto) PT 13.1 H INR 1.2 H Anion Gap Estim Creat Clear Calc Estimated GFR Random Glucose Lactic Acid Calcium Magnesium Total Bilirubin AST ALT Alkaline Phosphatase Troponin I High Sens B-Natriuretic Peptide 595 H Total Protein Albumin Lipase Beta HCG, Quant Stool Occult Blood COVID-19 (CHANA) Negative [employer] Com See Note Blood Type Antibody Screen 12/12/20 20:16 MCV MCH MCHC RDW Plt Count MPV Immature Gran % (Auto) Neut % (Auto) Lymph % (Auto) [place] % (Auto) Eos % (Auto) Baso % (Auto) Lymph # (Auto) [place] # (Auto) Eos # (Auto) Baso # (Auto) Abs Immat Gran (auto) Absolute Neuts (auto) Absolute Nucleated RBC Nucleated RBC % (auto) PT INR Anion Gap Estim Creat Clear Calc Estimated GFR Random Glucose Lactic Acid Calcium Magnesium Total Bilirubin AST ALT Alkaline Phosphatase Troponin I High Sens B-Natriuretic Peptide Total Protein Albumin Lipase Beta HCG, Quant Stool Occult Blood COVID-19 (CHANA) COVID-19 Clin Com Blood Type A Positive Antibody Screen NEGATIVE Imaging Radiologist's Impressions: Impressions Chest X-Ray 12/12/20 16:54 IMPRESSION: Small bilateral pleural effusions with minimal streaky bibasilar opacities and right midlung and streaky opacity. Mild vascular congestion without interstitial or alveolar edema. Chest CTA 12/12/20 17:36 IMPRESSION: 1. No evidence of pulmonary emboli. 2. Increased interstitial markings with pleural fluid loculated in right major fissure. Findings may represent mild CHF. Please correlate clinically. VTE: negative Abdomen/Pelvis CT 12/12/20 17:37 IMPRESSION: No acute abnormality is seen. Incidental note made of mild hepatomegaly and a translumbar the Port-A-Cath. Quality Stroke Does the patient have a stroke diagnosis?: No VTE Prior VTE?: No VTE Risk Level:: Medical - moderate - high VTE Device Contraindication: N/A - Device Ordered VTE Drug Contraindication: Treatment Not Indicated
[2020-12-13] VITALS (8 sets, daily range): BP systolic 127–156; BP diastolic 65–80; PULSE 62–74; RESP 16–20; TEMP 36.1–36.6; O2SAT 93–97; BMI 28.6
--- NOTE | 2020-12-13 | ECG_ITS ---
Test Reason : qt check Blood Pressure : / mmHG Vent. Rate : 057 BPM Atrial Rate : 057 BPM P-R Int : 142 ms QRS Dur : 076 ms QT Int : 444 ms P-R-T Axes : 052 020 029 degrees QTc Int : 432 ms Sinus bradycardia Biatrial enlargement Low voltage QRS Nonspecific ST and T wave abnormality Abnormal ECG When compared with ECG of 12-DEC-2020 17:03, No significant change was found Referred By: Jono Vega Electronically Signed By:EBER HUGHES MD
[2020-12-13] MEDS: HYDROmorphone HCl 0.5 MG/0.5 ML SYRINGE IVPUSH ×6 (00:11→21:34)
[2020-12-13] MEDS: 0.9 % Sodium Chloride Flush 3 ML SYRINGE IVFLUSH ×3 (00:11→16:00)
[2020-12-13] MEDS: diphenhydrAMINE HCL 50 MG/ML VIAL 25 MG IVPUSH ×3 (02:10→17:17)
[2020-12-13] MEDS: ondansetron HCL 4 MG/2 ML VIAL IVPUSH ×3 (02:11→17:17)
[2020-12-13 06:48] LABS: MANUAL DIFF FLAG NO
[2020-12-13 06:58] LABS: Basophils Percent Auto 0.6 % (0-2); Eosinophils Absolute Auto 0.2 X10*3/uL (0.0-0.4); Eosinophils Percent Auto 3.5 % (0-4); Hematocrit 35.8 % (37-47); Hemoglobin 12.1 g/dl (12.0-16.0); Imm Gran Abs Auto 0.02 X10*3/uL (0.00-0.03); Imm Gran Pct Auto 0.4 % (0.0-0.4); Lymphocytes Absolute Auto 1.4 X10*3/uL (1.2-4.9); Lymphocytes Percent Auto 26.2 % (20-40); Mean Corpuscular HGB Conc 33.8 g/dl (31.0-35.0); Mean Corpuscular Hemoglobin 29.5 pg (27.0-33.0); Mean Corpuscular Volume 87.3 fL (80-98); Mean Platelet Volume 10.7 fL (9.4-12.3); Monocytes Absolute Auto 0.4 X10*3/uL (0.1-1.2); Monocytes Percent Auto 7.7 % (2-11); Neutrophils Absolute Auto 3.3 X10*3/uL (2.0-8.3); Neutrophils Percent Auto 61.6 % (45-73); Platelet Count 222 X10*3/uL (160-400); White Blood Count 5.4 X10*3/uL (4.8-10.8)
[2020-12-13 07:24] LABS: Anion Gap 16 (12-20); Blood Urea Nitrogen 8 mg/dL (9-16); Calcium 9.1 mg/dL (8.4-10.2); Carbon Dioxide 29 mmol/L (22-29); Chloride 102 mmol/L (96-108); Creatinine Clr Calc Pharmacy 75.7; Estimated Glomerular Filt Rate > 60; Glucose Random 71 mg/dL (60-115); Magnesium 2.1 mg/dL (1.6-2.6); Potassium 3.6 mmol/L (3.3-5.1); Sodium 143 mmol/L (135-145)
[2020-12-13] MEDS: Apixaban 5 MG TABLET PO ×2 (09:06→21:34)
--- NOTE | 2020-12-13 12:11 | P.PNIM_ITS ---
Subjective Subjective Date of Service: 12/13/20 Interval History: Gastroparesis Review of Systems Patient says that nausea is somewhat better but still has discomfort and could not able to eat yet. Still somewhat short of breath, denies any chest pain. Denies any fever or any urinary complaints or cough or phlegm. Physical Exam Vital Signs: Vital Signs: Last Vital Signs Temp 97.7 F 12/13/20 11:40 Pulse 68 12/13/20 11:40 Resp 18 12/13/20 11:40 BP 132/73 12/13/20 11:40 Pulse Ox 93 12/13/20 11:40 Body Mass Index 28.6 Physical exam: Constitutional: Does not seem to be in acute distress but seems anxious. Cvs: rrr, [id number] , no murmur res: Fair air entry, no rales or rhonchii or wheezing abd: no rebound or guarding ,nt, bs present. ext pulses present , no cyanosis , trace edema neuro: axo3 , nonfocal. Objective Data Current Medications Generic Name Dose Route Start Last Admin Trade Name Nikq PRN Reason Stop Dose Admin Acetaminophen 650 mg 12/12/20 23:14 Acetaminophen 325 Mg Tablet PO Q6H PRN Pain, Mild (Pain Scale 1-3) Albuterol Sulfate 2 puff 12/12/20 23:17 Albuterol Sulfate 90 Mcg 8 Gm Inhaler INHALE Q4H PRN Wheezing Apixaban 5 mg 12/13/20 09:00 12/13/20 09:06 Apixaban 5 Mg Tablet PO 5 mg BID ANNA Administration Diphenhydramine HCl 25 mg 12/13/20 01:34 12/13/20 09:07 Diphenhydramine Hcl 50 Mg/Ml Vial IVPUSH 25 mg Q6H PRN Administration Hives Fluticasone/Vilanterol 1 puff 12/12/20 23:30 12/12/20 23:49 Fluticasone/Vilanterol 200/25 Blst.W.Dev INHALE Not Given Q24H ANNA Hydromorphone HCl 0.5 mg 12/12/20 23:18 12/13/20 09:07 Hydromorphone Hcl 0.5 Mg/0.5 Ml Syringe IVPUSH 0.5 mg Q4H PRN Administration Breakthrough Pain Levetiracetam 700 mg/ Sodium 107 mls @ 400 mls/hr 12/13/20 11:30 12/13/20 11:51 Chloride IV 400 mls/hr BID ANNA Administration Non-Formulary Medication 1 inhalation 12/13/20 09:00 Umeclidinium [Incruse Ellipta] INHALE DAILY ANNA Ondansetron HCl 4 mg 12/13/20 01:38 12/13/20 09:08 Ondansetron Hcl 4 Mg/2 Ml Vial IVPUSH 4 mg Q8H PRN Administration Nausea and Vomiting Pharmacy Consult 1 each 12/12/20 21:28 Consult Rx Perform Med Rec MISCELLANE ONCE PRN Consult order Sodium Chloride 3 ml 12/13/20 00:00 12/13/20 09:06 0.9 % Sodium Chloride Flush 3 Ml Syringe IVFLUSH 3 ml QSHIFT ANNA Administration Tizanidine HCl 4 mg 12/12/20 23:17 Tizanidine Hcl 4 Mg Tablet PO TID PRN Muscle Spasm Labs CBC & Chem 7: 12/13/20 06:18 12/13/20 06:18 Labs: Laboratory Results - last 24 hr 12/12/20 12/12/20 12/12/20 18:00 18:03 18:03 WBC RBC Hgb Hct MCV MCH MCHC RDW Plt Count MPV Immature Gran % (Auto) Neut % (Auto) Lymph % (Auto) [place] % (Auto) Eos % (Auto) Baso % (Auto) Lymph # (Auto) [place] # (Auto) Eos # (Auto) Baso # (Auto) Abs Immat Gran (auto) Absolute Neuts (auto) Absolute Nucleated RBC Nucleated RBC % (auto) PT INR Sodium Potassium Chloride Carbon Dioxide Anion Gap BUN Creatinine Estim Creat Clear Calc Estimated GFR Random Glucose Lactic Acid 0.9 Calcium Magnesium Total Bilirubin AST ALT Alkaline Phosphatase Troponin I High Sens < 3.5 B-Natriuretic Peptide Total Protein Albumin Lipase Beta HCG, Quant Stool Occult Blood NEGATIVE COVID-19 (CHANA) COVID-19 Clin Com Blood Type Antibody Screen 12/12/20 12/12/20 12/12/20 18:04 18:04 18:04 WBC 4.3 L RBC 3.67 L Hgb 11.1 L Hct 32.3 L MCV 88.0 MCH 30.2 MCHC 34.4 RDW 13.0 Plt Count 185 MPV 11.3 Immature Gran % (Auto) 0.7 H Neut % (Auto) 62.1 Lymph % (Auto) 25.2 [place] % (Auto) 8.8 Eos % (Auto) 2.5 Baso % (Auto) 0.7 Lymph # (Auto) 1.1 L [place] # (Auto) 0.4 Eos # (Auto) 0.1 Baso # (Auto) 0.0 Abs Immat Gran (auto) 0.03 Absolute Neuts (auto) 2.7 Absolute Nucleated RBC 0.000 Nucleated RBC % (auto) 0.0 PT INR Sodium 140 Potassium 3.8 Chloride 104 Carbon Dioxide 25 Anion Gap 15 BUN 11 Creatinine 0.71 Estim Creat Clear Calc 83.6 Estimated GFR > 60 Random Glucose 98 Lactic Acid Calcium 8.7 Magnesium 2.1 Total Bilirubin 0.3 AST 17 ALT 8 Alkaline Phosphatase 57 D Troponin I High Sens B-Natriuretic Peptide Total Protein 6.4 L Albumin 4.0 Lipase 5 L Beta HCG, Quant 8 Stool Occult Blood COVID-19 (CHANA) COVID-[employer] Com Blood Type Antibody Screen 12/12/20 12/12/20 12/12/20 18:05 18:05 20:09 WBC RBC Hgb Hct MCV MCH MCHC RDW Plt Count MPV Immature Gran % (Auto) Neut % (Auto) Lymph % (Auto) [place] % (Auto) Eos % (Auto) Baso % (Auto) Lymph # (Auto) [place] # (Auto) Eos # (Auto) Baso # (Auto) Abs Immat Gran (auto) Absolute Neuts (auto) Absolute Nucleated RBC Nucleated RBC % (auto) PT 13.1 H INR 1.2 H Sodium Potassium Chloride Carbon Dioxide Anion Gap BUN Creatinine Estim Creat Clear Calc Estimated GFR Random Glucose Lactic Acid Calcium Magnesium Total Bilirubin AST ALT Alkaline Phosphatase Troponin I High Sens B-Natriuretic Peptide 595 H Total Protein Albumin Lipase Beta HCG, Quant Stool Occult Blood COVID-19 (CHANA) Negative COVID-19 [employer] See Note Blood Type Antibody Screen 12/12/20 12/13/20 12/13/20 20:16 06:18 06:18 WBC 5.4 RBC 4.10 L Hgb 12.1 Hct 35.8 L MCV 87.3 MCH 29.5 MCHC 33.8 RDW 13.0 Plt Count 222 MPV 10.7 Immature Gran % (Auto) 0.4 Neut % (Auto) 61.6 Lymph % (Auto) 26.2 [place] % (Auto) 7.7 Eos % (Auto) 3.5 Baso % (Auto) 0.6 Lymph # (Auto) 1.4 [place] # (Auto) 0.4 Eos # (Auto) 0.2 Baso # (Auto) 0.0 Abs Immat Gran (auto) 0.02 Absolute Neuts (auto) 3.3 Absolute Nucleated RBC 0.000 Nucleated RBC % (auto) 0.0 PT INR Sodium Cancelled Potassium Cancelled Chloride Cancelled Carbon Dioxide Cancelled Anion Gap Cancelled BUN Cancelled Creatinine Cancelled Estim Creat Clear Calc Cancelled Estimated GFR Cancelled Random Glucose Cancelled Lactic Acid Calcium Cancelled Magnesium Total Bilirubin AST ALT Alkaline Phosphatase Troponin I High Sens B-Natriuretic Peptide Total Protein Albumin Lipase Beta HCG, Quant Stool Occult Blood COVID-19 (CHANA) [employer] Blood Type A Positive Antibody Screen NEGATIVE 12/13/20 06:18 WBC RBC Hgb Hct MCV MCH MCHC RDW Plt Count MPV Immature Gran % (Auto) Neut % (Auto) Lymph % (Auto) [place] % (Auto) Eos % (Auto) Baso % (Auto) Lymph # (Auto) [place] # (Auto) Eos # (Auto) Baso # (Auto) Abs Immat Gran (auto) Absolute Neuts (auto) Absolute Nucleated RBC Nucleated RBC % (auto) PT INR Sodium 143 Potassium 3.6 Chloride 102 Carbon Dioxide 29 Anion Gap 16 BUN 8 L Creatinine 0.79 Estim Creat Clear Calc 75.7 Estimated GFR > 60 Random Glucose 71 Lactic Acid Calcium 9.1 Magnesium 2.1 Total Bilirubin AST ALT Alkaline Phosphatase Troponin I High Sens B-Natriuretic Peptide Total Protein Albumin Lipase Beta HCG, Quant Stool Occult Blood COVID-19 (CHANA) COVID-[employer] Blood Type Antibody Screen Quality Stroke Does the patient have a stroke diagnosis?: No VTE Prior VTE?: Yes VTE Risk Level:: Medical - moderate - high VTE Device Contraindication: N/A - Device Ordered VTE Drug Contraindication: Treatment Not Indicated Assessment and Plan (1) Abdominal pain: Status: Acute (2) CHF (congestive heart failure): Status: Acute Assessment and Plan: 40-year-old female with a past medical history of Behcet's disease, Crohn's disease, gastroparesis, chronic pain syndrome on opiates, degenerative spine disease, chronic low back pain, history of spontaneous pneumothorax status post pleurodesis, history of DVT/PE on Eliquis, ovarian cysts, asthma, CVA, history of spinal stenosis/urinary incontinence; history of port placement presented to the hospital with a chief complaint of nausea vomiting and abdominal discomfort. 1.Gastroparesis: Patient was recently in [facility] and had EGD by Dr. Anton-as per patient found to have pyloric sphincter tightness which was dilated afterwards her nausea was slightly better. Will continue p.o. hydration, if possible. sandee Joshi try dose of reglan try to decrease opoids If does not improve then may need to consider GI evaluation. 2.Crohn's disease: Abdominal examination is benign. Will continue to monitor. 3.Hypotension: thought to be Likely in the setting of poor oral intake. Improved with IV fluids. Of fluids. 4.possible Pulmonary edema: may be due to setting of aggressive IV fluid management . In the background patient said that she received lot of fluid in [facility] recently, also she had tachycardia and had echo [facility] . elevated bnp, echo Patient received Lasix. will add another dose lasix 5.History of DVT/PE: Continue home Eliquis. 6. asthma hx: continue albuetrol, fluticasone /vilanterol.
--- NOTE | 2020-12-13 14:08 | MHC.CM.PN ---
PER CONVERSATION WITH HOSPITALIST, SYMPTOMS NOT IMPROVING. STILL SOB. AWAITING ECHO. CASE MANAGEMENT FOLLOWING
--- NOTE | 2020-12-13 17:45 | HE.PHANOTE ---
Patient is on non-formulary medication Incruse Elipta at home. Per Roma, patient has no way for medication to be brought to hospital. Recommended to switch to alternative LAMA that is on formulary, Maria Fernanda Menendez. agreed. Yaquelin Luther, PharmD
[2020-12-13] MEDS: Fluticasone/Vilanterol 200/25 BLST.W.DEV 1 PUFF INHALE (23:56)
[2020-12-14] VITALS (9 sets, daily range): BP systolic 111–149; BP diastolic 62–78; PULSE 59–72; RESP 16–20; TEMP 36.1–36.6; O2SAT 94–97
[2020-12-14] MEDS: ondansetron HCL 4 MG/2 ML VIAL IVPUSH ×3 (00:04→16:18)
[2020-12-14] MEDS: diphenhydrAMINE HCL 50 MG/ML VIAL 25 MG IVPUSH ×3 (00:04→16:17)
[2020-12-14] MEDS: HYDROmorphone HCl 0.5 MG/0.5 ML SYRINGE IVPUSH ×5 (01:36→22:26)
--- NOTE | 2020-12-14 04:16 | PM.EVENT ---
Event Note Date of Service: 12/14/20 Event Note: Bacteremia: Blood cx growing GPC in clusters; s/w Vancomycin IV; ID consult
[2020-12-14] MEDS: vancomycin HCL 1,000 MG in 0.9 % Sodium Chloride 250 ML 270 MG IV (05:05)
[2020-12-14 07:06] LABS: Mean Corpuscular HGB Conc 33.3 g/dl (31.0-35.0); Mean Corpuscular Hemoglobin 28.8 pg (27.0-33.0); Mean Corpuscular Volume 86.3 fL (80-98); Mean Platelet Volume 10.8 fL (9.4-12.3); Platelet Count 238 X10*3/uL (160-400); Red Blood Count 4.17 X10*6/uL (4.20-5.50); Red Cell Distribution Width 12.6 % (11.0-16.0); White Blood Count 4.5 X10*3/uL (4.8-10.8)
[2020-12-14 07:22] LABS: B Type Natriuretic Peptide 184 pg/mL (<100)
[2020-12-14 07:30] LABS: Anion Gap 14 (12-20); Blood Urea Nitrogen 11 mg/dL (9-16); Calcium 8.9 mg/dL (8.4-10.2); Carbon Dioxide 27 mmol/L (22-29); Chloride 105 mmol/L (96-108); Estimated Glomerular Filt Rate > 60; Glucose Random 90 mg/dL (60-115); Potassium 4.2 mmol/L (3.3-5.1); Sodium 142 mmol/L (135-145)
[2020-12-14] MEDS: 0.9 % Sodium Chloride Flush 3 ML SYRINGE IVFLUSH ×3 (08:12→19:57)
[2020-12-14] MEDS: Apixaban 5 MG TABLET PO ×2 (08:12→19:57)
--- NOTE | 2020-12-14 10:20 | P.PNIM_ITS ---
Subjective Subjective Date of Service: 12/14/20 Interval History: seen and examined feels the same, not eating much ROS General - no fevers or chills Cardiovascular - no chest pain Respiratory - no shortness of breath or cough Abdominal- +nausea/vomiting Physical Exam Vital Signs: Vital Signs: Last Vital Signs Temp 97.7 F 12/14/20 07:54 Pulse 61 12/14/20 07:54 Resp 18 12/14/20 07:54 BP 139/65 12/14/20 07:54 Pulse Ox 96 12/14/20 07:54 Body Mass Index 28.6 Const: Other: General - no acute distress, appears unwell Cardiovascular - regular rate and rhythm, S1-S2 Lungs - normal respiratory effort, clear to auscultation bilaterally, no wheezing Abdomen - soft, nontender, no rebound or guarding Extremities - no edema bilaterally Neuro - awake and alert, no focal deficits Objective Data Current Medications Generic Name Dose Route Start Last Admin Trade Name Freq PRN Reason Stop Dose Admin Acetaminophen 650 mg 12/12/20 23:14 Acetaminophen 325 Mg Tablet PO Q6H PRN Pain, Mild (Pain Scale 1-3) Albuterol Sulfate 2 puff 12/12/20 23:17 Albuterol Sulfate 90 Mcg 8 Gm Inhaler INHALE Q4H PRN Wheezing Apixaban 5 mg 12/13/20 09:00 12/14/20 08:12 Apixaban 5 Mg Tablet PO 5 mg BID ANNA Administration Diphenhydramine HCl 25 mg 12/13/20 01:34 12/14/20 08:12 Diphenhydramine Hcl 50 Mg/Ml Vial IVPUSH 25 mg Q6H PRN Administration Hives Fluticasone/Vilanterol 1 puff 12/12/20 23:30 12/13/20 23:56 Fluticasone/Vilanterol 200/25 Blst.W.Dev INHALE 1 puff Q24H ANNA Administration Hydromorphone HCl 0.5 mg 12/12/20 23:18 12/14/20 09:37 Hydromorphone Hcl 0.5 Mg/0.5 Ml Syringe IVPUSH 0.5 mg Q4H PRN Administration Breakthrough Pain Levetiracetam 700 mg/ Sodium 107 mls @ 400 mls/hr 12/13/20 11:30 12/14/20 10:14 Chloride IV Infused BID ANNA Infusion Vancomycin HCl 1,000 mg/ 270 mls @ 270 mls/hr 12/14/20 04:15 12/14/20 06:14 Sodium Chloride IV Infused Q12H ANNA Infusion Ondansetron HCl 4 mg 12/13/20 01:38 12/14/20 08:12 Ondansetron Hcl 4 Mg/2 Ml Vial IVPUSH 4 mg Q8H PRN Administration Nausea and Vomiting Pharmacy Consult 1 each 12/12/20 21:28 Consult Rx Perform Med Rec MISCELLANE ONCE PRN Consult order Pharmacy Consult 1 each 12/14/20 04:15 Consult Rx Vancomycin Dosing MISCELLANE DAILY PRN Consult order Sodium Chloride 3 ml 12/13/20 00:00 12/14/20 08:12 0.9 % Sodium Chloride Flush 3 Ml Syringe IVFLUSH 3 ml QSHIFT ANNA Administration Tiotropium [place] 1 puff 12/13/20 18:00 12/14/20 07:33 Tiotropium [place] 18 Mcg Cap.W.Dev INHALE 1 puff RDAILY ANNA Administration Tizanidine HCl 4 mg 12/12/20 23:17 Tizanidine Hcl 4 Mg Tablet PO TID PRN Muscle Spasm Labs CBC & Chem 7: 12/14/20 06:22 12/14/20 06:22 Labs: Laboratory Results - last 24 hr 12/14/20 12/14/20 12/14/20 06:22 06:22 06:22 WBC 4.5 L RBC 4.17 L Hgb 12.0 Hct 36.0 L MCV 86.3 MCH 28.8 MCHC 33.3 RDW 12.6 Plt Count 238 MPV 10.8 Absolute Nucleated RBC 0.000 Nucleated RBC % (auto) 0.0 Sodium 142 Potassium 4.2 Chloride 105 Carbon Dioxide 27 Anion Gap 14 BUN 11 Creatinine 0.72 Estim Creat Clear Calc 83.0 Estimated GFR > 60 Random Glucose 90 Calcium 8.9 B-Natriuretic Peptide 184 H Microbiology Microbiology Results: Microbiology 12/12/20 18:01 Blood Culture - Preliminary Blood - Venous Prelim: GPC Gram Stain only 12/12/20 18:05 Blood Culture - Preliminary Blood - Venous No growth after 24 hours. Quality Stroke Does the patient have a stroke diagnosis?: No VTE Prior VTE?: Yes VTE Risk Level:: Medical - moderate - high VTE Device Contraindication: N/A - Device Ordered VTE Drug Contraindication: Treatment Not Indicated Assessment and Plan (1) Abdominal pain: Status: Acute (2) CHF (congestive heart failure): Status: Acute Assessment and Plan: 40-year-old female with a past medical history of Behcet's disease, Crohn's disease, gastroparesis, chronic pain syndrome on opiates, degenerative spine disease, chronic low back pain, history of spontaneous pneumothorax status post pleurodesis, history of DVT/PE on Eliquis, ovarian cysts, asthma, CVA, history of spinal stenosis/urinary incontinence; history of port placement presented to the hospital with a chief complaint of nausea vomiting and abdominal discomfort. 1. Intractable N/V oral intake still poor recently had her pyloric sphincter dilated at [facility] [place] may have component of gastroparesis secondary to chronic narcotic use (has allergy to reglan/zofran) continue PPI continue supportive care if not improved by tomorrow, will get GI invovled 2. Bacteremia 1/2 bottles growing GPC suspected contaminant (coag. neg staph) stop vancomcyin and hold off ID consult -- if true bacteremia, will proceed with further work up 3. Chronic pain start tapering IV dilaudid (from q4h to q8h) and add back her oral dialudid outpatient f/u with her pain team 4. Pulm edema likely from IVF no respiratory symptoms 5. Hypotension initially in the ED, likely due to hypovoluemia resolved 6. History of Crohn's dx reports not on any meds >1 year 7. History of PE/DVT Eliquis 6. History of CVID reports she has received IVIG in the past f/u with her outpatient team Full Code DVT pptx, Eliquis
[2020-12-14] MEDS: Acetaminophen 325 MG TABLET 650 MG PO (19:55)
[2020-12-14] MEDS: levETIRAcetam Oral Soln 500 MG/5 ML 700 MG PO (19:57)
[2020-12-14] MEDS: Fluticasone/Vilanterol 200/25 BLST.W.DEV 1 PUFF INHALE (23:48)
[2020-12-15] VITALS (10 sets, daily range): BP systolic 114–139; BP diastolic 58–74; PULSE 62–85; RESP 16–18; TEMP 36.3–37.1; O2SAT 94–97; BMI 28.6
[2020-12-15] MEDS: ondansetron HCL 4 MG/2 ML VIAL IVPUSH ×4 (00:25→23:44)
[2020-12-15] MEDS: diphenhydrAMINE HCL 50 MG/ML VIAL 25 MG IVPUSH ×4 (00:25→23:43)
--- NOTE | 2020-12-15 07:30 | CA_ITS ---
Transthoracic Echocardiogram Patient (Last, First, Middle): Brooklyn Chavez, Gender: Female Date of : 1980 Age: 40 Procedure Date: 12/15/2020 Procedure Type: Transthoracic Echocardiogram [place] [facility] [place] [facility] [place] Height: 149.86 cm Weight: 63.96 kg BSA: 1.59 m2 Heart Rate: bpm BP: 139 / 72 mmHg Emg Technician: / Referring MD: Jono Vega MD Symptoms: pulm edema Study Quality: Fair ECG Rhythm: Sinus Conclusions: - The left ventricular systolic function is normal. The visually estimated ejection fraction is between 55-60%. - No obvious valvular pathology seen on this study. Findings Left Ventricle Normal left ventricular cavity size. There is normal left ventricular wall thickness. The left ventricular systolic function is normal. The visually estimated ejection fraction is between 55-60%. There is no evidence of regional wall motion abnormalities. Diastolic function is normal for age. E/E prime ratio is <8, consistent with normal filling pressures. Right Ventricle Normal right ventricular cavity size. There is low normal right ventricular systolic function. TAPSE 1.66cm. Atria The left atrium is normal in size. The right atrium is normal in size. Aortic Valve There is a normal trileaflet aortic valve. There is no aortic valve stenosis. There is no aortic valve regurgitation. Mitral Valve The mitral valve appears normal. There is no mitral valve regurgitation. There is no mitral valve stenosis. Pulmonic Valve The pulmonic valve was not well visualized. Tricuspid Valve There is mild tricuspid valve regurgitation. The pulmonary artery systolic pressure is normal. Great Vessels The aortic annulus, sinuses of valsalva, and asc aorta are normal in size. Venous The inferior vena cava is normal in size and collapses greater than 50% with inspiration. Pericardium/Pleural There is no evidence of pericardial effusion. Prior Study Comparison No prior study available for comparison. Recommendations, Care & Conclusions No obvious valvular pathology seen on this study. Measurements 2D Linear Measurements IVSd: 0.75 0.6-0.9/0.6-1.0 cm LVIDd: 5.02 3.9-5.3/4.2-5.9 cm LVIDd Index: 3.16 2.4-3.2/2.2-3.1 cm/m2 LVIDs: 3.46 2.0-3.6 cm LVPWd: 0.62 0.7-1.1 cm Ao Root: 2.90 2.1-3.5 cm LA Diam: 2.90 2.7-3.8/3.0-4.0 cm LAIDs Index: 1.82 1.5-2.3 cm/m2 LV Mass: 139.41 67-162/88-224 g LV Mass Index: 87.68 43-95/49-115 g/m2 LVOT Diam: 1.80 3.0+(-)1.3 cm Mitral Valve MV Pk E: 0.67 MV PK A: 0.58 MV Decel Time: 185.00 E/A: 1.20 E'Lateral: 15.40 E'Medial: 7.94 E/E' Med: 8.50 E/E' Lat: 4.40 PHT: 54.00 MVA PHT: 4.07 Decel Winkler: 3.64 Aortic Valve AoV Pk C[place]orro: 1.08 AoV Mn [place]: 0.74 AoV VTI: 0.29 AoV Pk Grad: 5.00 Aov Mn Grad: 3.00 SCOUT Cont.VTI: 0.93 LVOT LVOT Pk [place]: 0.46 LVOT Mn [place]: 0.29 LVOT VTI: 0.11 LVOT Pk Grad: 1.00 LVOT Mn Grad: 0.00 LVOT Diam: 1.80 LVOT Area: 2.54 Diastolic Function MV Pk E: 0.67 MV Pk A: 0.58 E/A: 1.20 E'Medial: 7.94 E/E' Med: 8.50 E' Laterial: 15.40 E/E' Lat: 4.40 Right Ventricle TAPSE (mm): 1.66 Tricuspid Valve TR Pk [place]: 2.26 TR Pk Grad: 20.00 Great Vessels Aorta Ao Root-2D: 2.90 2.0-3.7 cm Ao Asc: 3.00 2.1-3.4 cm Pulmonary Valve PV Pk Cachorro: 0.94 Peak PV Grad: 4.00 Updated in Other Vendor System with Status of Final Eric Mahoney MD electronically signed on 12/15/2020 11:49:36 AM with status of Final
[2020-12-15] MEDS: HYDROmorphone HCl 0.5 MG/0.5 ML SYRINGE IVPUSH ×3 (08:05→23:43)
[2020-12-15] MEDS: Apixaban 5 MG TABLET PO ×2 (08:06→22:54)
[2020-12-15] MEDS: levETIRAcetam Oral Soln 500 MG/5 ML 700 MG PO ×2 (08:06→22:54)
--- NOTE | 2020-12-15 08:49 | HO.PM.IMPN ---
Subjective Subjective Date of Service: 12/15/20 Interval History: seen and examined this AM getting echo this AM no new complaints requiring pain meds less frequently ROS General - no fevers or chills Cardiovascular - no chest pain Respiratory - no shortness of breath or cough Abdominal- +abd pain, n/v Physical Exam Vital Signs: Vital Signs: Last Vital Signs Temp 97.3 F 12/15/20 07:58 Pulse 65 12/15/20 07:58 Resp 16 12/15/20 07:58 BP 137/65 12/15/20 07:58 Pulse Ox 97 12/15/20 07:58 Body Mass Index 28.6 Const: Other: General - no acute distress, appears unwell Cardiovascular - regular rate and rhythm, S1-S2 Lungs - normal respiratory effort, clear to auscultation bilaterally, no wheezing Abdomen - soft, nontender, no rebound or guarding Extremities - no edema bilaterally Neuro - awake and alert, no focal deficits Objective Data Current Medications Generic Name Dose Route Start Last Admin Trade Name Freq PRN Reason Stop Dose Admin Acetaminophen 650 mg 12/12/20 23:14 12/14/20 19:55 Acetaminophen 325 Mg Tablet PO 650 mg Q6H PRN Administration Pain, Mild (Pain Scale 1-3) Albuterol Sulfate 2 puff 12/12/20 23:17 Albuterol Sulfate 90 Mcg 8 Gm Inhaler INHALE Q4H PRN Wheezing Apixaban 5 mg 12/13/20 09:00 12/15/20 08:06 Apixaban 5 Mg Tablet PO 5 mg BID ANNA Administration Diphenhydramine HCl 25 mg 12/13/20 01:34 12/15/20 08:05 Diphenhydramine Hcl 50 Mg/Ml Vial IVPUSH 25 mg Q6H PRN Administration Hives Fluticasone/Vilanterol 1 puff 12/12/20 23:30 12/14/20 23:48 Fluticasone/Vilanterol 200/25 Blst.W.Dev INHALE 1 puff Q24H ANNA Administration Hydromorphone HCl 0.5 mg 12/14/20 10:26 12/15/20 08:05 Hydromorphone Hcl 0.5 Mg/0.5 Ml Syringe IVPUSH 0.5 mg Q8H PRN Administration Breakthrough Pain Hydromorphone HCl 4 mg 12/14/20 10:26 12/15/20 00:25 Hydromorphone Hcl 4 Mg Tablet PO 4 mg TID PRN Administration pain Levetiracetam 700 mg 12/14/20 21:00 12/15/20 08:06 Levetiracetam Oral Soln 500 Mg/5 Ml PO 700 mg BID ANNA Administration Ondansetron HCl 4 mg 12/13/20 01:38 12/15/20 08:04 Ondansetron Hcl 4 Mg/2 Ml Vial IVPUSH 4 mg Q8H PRN Administration Nausea and Vomiting Pharmacy Consult 1 each 12/12/20 21:28 Consult Rx Perform Med Rec MISCELLANE ONCE PRN Consult order Pharmacy Consult 1 each 12/14/20 04:15 Consult Rx Vancomycin Dosing MISCELLANE DAILY PRN Consult order Sodium Chloride 3 ml 12/13/20 00:00 12/14/20 19:57 0.9 % Sodium Chloride Flush 3 Ml Syringe IVFLUSH 3 ml QSHIFT ANNA Administration Tiotropium [place] 1 puff 12/13/20 18:00 12/14/20 07:33 Tiotropium [place] 18 Mcg Cap.W.Dev INHALE 1 puff RDAILY ANNA Administration Tizanidine HCl 4 mg 12/12/20 23:17 Tizanidine Hcl 4 Mg Tablet PO TID PRN Muscle Spasm Labs CBC & Chem 7: 12/14/20 06:22 12/14/20 06:22 Microbiology Microbiology Results: Microbiology 12/12/20 18:01 Blood Culture - Final Blood - Venous Coag negative Staphylococcus 12/12/20 18:05 Blood Culture - Preliminary Blood - Venous No growth after 48 hours. Quality Stroke Does the patient have a stroke diagnosis?: No VTE Prior VTE?: Yes VTE Risk Level:: Medical - moderate - high VTE Device Contraindication: N/A - Device Ordered VTE Drug Contraindication: Treatment Not Indicated Assessment and Plan (1) Abdominal pain: Status: Acute (2) CHF (congestive heart failure): Status: Acute Assessment and Plan: 40-year-old female with a past medical history of Behcet's disease, Crohn's disease, gastroparesis, chronic pain syndrome on opiates, degenerative spine disease, chronic low back pain, history of spontaneous pneumothorax status post pleurodesis, history of DVT/PE on Eliquis, ovarian cysts, asthma, CVA, history of spinal stenosis/urinary incontinence; history of port placement presented to the hospital with a chief complaint of nausea vomiting and abdominal discomfort. 1. Intractable N/V slowly improving recently had her pyloric sphincter dilated at [facility] [place] may have component of gastroparesis secondary to chronic narcotic use (has allergy to reglan/zofran) continue PPI continue supportive care if not improved by tomorrow, will get GI invovled 2. Bacteremia 1/2 bottles growing coag neg staph -- contaminant 3. Chronic pain taper IV pain meds, continue orals outpatient f/u with her pain team 4. Pulm edema likely from IVF no respiratory symptoms 5. Hypotension initially in the ED, likely due to hypovoluemia resolved 6. History of Crohn's dx reports not on any meds >1 year 7. History of PE/DVT Eliquis 6. History of CVID reports she has received IVIG in the past f/u with her outpatient team Full Code DVT pptx, Eliquis dispo: home this afternoon if she is tolerating solids
[2020-12-15] MEDS: Fluticasone/Vilanterol 200/25 BLST.W.DEV 1 PUFF INHALE (11:52)
--- NOTE | 2020-12-15 12:19 | P.DS_ITS ---
DS: Providers Provider Date of Service: 12/16/20 Date of admission: 12/12/20 23:16 Date of discharge: 12/16/20 Primary care physician: Amelie Banks NP DS: Diagnosis Discharge Diagnosis (1) Abdominal pain: Status: Acute (2) Pulmonary edema: Status: Acute (3) Chronic pain: Status: Acute (4) Crohn's disease: Status: Acute (5) Behcet's disease: Status: Acute DS: Medications Discharge Medications Home Medications: Home Medications Medication Instructions Recorded Confirmed promethazine 25 mg tablet 25 mg PO QID PRN 04/02/20 12/12/20 tizanidine 4 mg tablet 4 mg PO TID PRN 04/02/20 12/12/20 apixaban 5 mg tablet 5 mg PO BID 09/22/20 12/12/20 Breo Ellipta 1 inh INHALATION Q24H 12/12/20 12/12/20 Incruse Ellipta 1 inh INHALATION DAILY 12/12/20 12/12/20 albuterol sulfate 2 puff INHALATION Q4H PRN 12/12/20 12/12/20 levetiracetam 7 ml PO BID 12/12/20 12/12/20 Previous Rx's Medication Instructions Recorded hydromorphone 4 mg tablet 4 mg PO TID PRN 30 Days #90 tab 11/20/20 DS: Summary Hospital Course Hospital Course: Patient presented to the hospital with complaints of generalized abdominal pain and associated nausea and vomiting. She endorsed a history of gastroparesis as well as pyloric stenosis with a recent dilatation performed at [facility]. She presented with hypovolemia and hypotension as well which was treated with intravenous fluids. In regards to her abdominal pain she was evaluated with a CT scan of the abdomen and pelvis with did not show any acute abnormalities. Patient's symptoms did improve with the above measures. Patient reported that the possibility of a G-tube insertion was discussed by her providers at [facility] and this will be deferred pending re- evaluation by them. Of note, patient's hospital course was further complicated by concern over bacteremia. Her initial blood cultures revealed 1/2 g positive cocci which ultimately turned out to be coagulase-negative Staph aureus. Repeat blood cultures were completed and were negative @ 24 hours. A 2D echo was checked which was negative for any vegetations. She had no foci of infection Due to unavailability of infectious disease in house during discharge, case was discussed via secure messaging system. Her initial positive blood cultures is likely a contaminant. Time Spent with Patient Time attestation: Total time spent providing and/or coordinating discharge services: Discharge coordination time: Greater than 30 minutes Quality: Stroke Does the patient have a stroke diagnosis?: No Physical Exam Vital Signs: Vital Signs: Last Vital Signs Temp 97.3 F 12/15/20 07:58 Pulse 65 12/15/20 07:58 Resp 16 12/15/20 07:58 BP 137/65 12/15/20 07:58 Pulse Ox 97 12/15/20 07:58 Body Mass Index 28.6 Const: Other: General - no acute distress, appears comfortable Cardiovascular - regular rate and rhythm, S1-S2 Lungs - normal respiratory effort, clear to auscultation bilaterally, no wheezing Abdomen - soft, nontender, no rebound or guarding Extremities - no edema bilaterally Neuro - awake and alert, no focal deficits DS: Data Data Completed and Pending Labs on day of discharge: Preliminary micro results at discharge 12/12/20 18:05 Blood Culture - Preliminary Blood - Venous No growth after 48 hours. Discharge Plan Discharge Patient Disposition: Home, Self-Care Discharge Diagnosis: Abdominal pain, nausea/vomiting Referrals: Amelie Banks [employer] [Primary Care Provider] - 1 Week Discharge Medications: Continued levetiracetam 100 mg/mL solution 7 ml PO BID RF: 0 albuterol sulfate 90 mcg/actuation Hfa Aerosol Inhaler 2 puff INHALATION Q4H PRN (Reason: Wheezing) RF: 0 Incruse Ellipta 62.5 mcg/actuation Blister With Device 1 inh INHALATION DAILY RF: 0 Breo Ellipta 200-25 mcg/dose Blister With Device 1 inh INHALATION Q24H RF: 0 tizanidine 4 mg tablet 4 mg PO TID PRN (Reason: Muscle Spasm) RF: 0 promethazine 25 mg tablet 25 mg PO QID PRN (Reason: nausea) RF: 0 Eliquis 5 mg tablet 5 mg PO BID RF: 0 hydromorphone 4 mg tablet 4 mg PO TID PRN (Reason: pain) 30 Days Qty: 90 RF: 0 Discharge Orders: Discharge Order (Routine); Ordered 12/16/20 Ordered By: Elieser Recio Diet: advance to usual diet Activity on Discharge: As tolerated Stand Alone Forms: Patient Portal Discharge page Care Plan Goals: To stay healthy and out of the hospital. Health Concerns: Abdominal pain, nausea and vomiting Plan of Treatment: Please continue with your baseline medications as before. If you have recurrent symptoms, you may need to be seen by your GI doctors at [facility] Assessment: 40 yo F with a PMH of pyloric stenosis, [place] [facility] [place]. Treated symptomatically and improved.
--- NOTE | 2020-12-15 13:40 | MHC.CM.PN ---
PT DISCHARGING HOME SELF-CARE, PT TO ARRANGE TRANSPORT.
[2020-12-15] MEDS: 0.9 % Sodium Chloride Flush 3 ML SYRINGE IVFLUSH ×2 (15:55→22:54)
[2020-12-15 21:10] LABS: Glucose, Whole Blood 100 mg/dL (60-115)
[2020-12-16 03:19] VITALS: BP 122/93; PULSE 55; RESP 17; TEMP 36.2; O2SAT 96
[2020-12-16] MEDS: Apixaban 5 MG TABLET PO (07:26)
[2020-12-16] MEDS: levETIRAcetam Oral Soln 500 MG/5 ML 700 MG PO (07:26)
[2020-12-16] MEDS: 0.9 % Sodium Chloride Flush 3 ML SYRINGE IVFLUSH ×2 (07:26→15:25)
[2020-12-16] MEDS: ondansetron HCL 4 MG/2 ML VIAL IVPUSH ×2 (07:27→15:30)
[2020-12-16] MEDS: diphenhydrAMINE HCL 50 MG/ML VIAL 25 MG IVPUSH ×2 (07:27→15:30)
[2020-12-16] MEDS: HYDROmorphone HCl 0.5 MG/0.5 ML SYRINGE IVPUSH (07:34)
--- NOTE | 2020-12-16 07:41 | PC.NURSE ---
Pt requesting zofran - listed under her alergies/avd rxn - clarified with pt. She states she sometimes get hives w zofran she states she takes when Benadryl when needed ( and has been this admit without issues). Pt indicating nausea this am, doesnt want phenergan - admin zofran & Benadryl. Will monitor for any reactions.
[2020-12-16 08:00] VITALS: BP 115/63; PULSE 58; RESP 19; TEMP 36.9; O2SAT 94
[2020-12-16 12:00] VITALS: BP 107/60; PULSE 69; RESP 19; TEMP 36.7; O2SAT 93
[2020-12-16 16:00] VITALS: BP 114/69; PULSE 62; RESP 18; TEMP 37.1; O2SAT 94
[2020-12-16] MEDS: Heparin Sodium,Porcine Flush 50 UNITS/5 ML SYRINGE IVFLUSH (16:55)
== END 2020-12-16 05:15 | disposition home or self-care (01) | DRG 392 ==
LOC: HO.ED 20:51 → HO.EDOVER 23:23 → HO.S3 23:56 → HO.IMC 12-15 19:13
PROVIDERS: Internal Medicine; Physician Assistant Medical; Admitting Provider Hospitalist; Emergency Provider Emergency Medicine; PCP Registered Nurse; Visit Provider Family Medicine
DX: R10.9 Unspecified abdominal pain (principal); K50.90 Crohn's disease, unspecified, without complications; M35.2 Behcet's disease; J45.909 Unspecified asthma, uncomplicated; K31.84 Gastroparesis; G89.4 Chronic pain syndrome; I95.9 Hypotension, unspecified; Z86.711 Personal history of pulmonary embolism; Z86.16 Personal history of COVID-19; Z20.822 Contact with and (suspected) exposure to COVID-19; Z88.0 Allergy status to penicillin; Z79.01 Long term (current) use of anticoagulants; Z79.899 Other long term (current) drug therapy
CPT/HCPCS: 36415; 71046; 71275; 74177; 80048; 80053; 82272; 82947; 83605; 83690; 83735; 83880; 84484; 84702; 85025; 85027; 85610; 86850; 86900; 86901; 87040; 87147; 87205; 87635; 93005; 93306; 99285; J1170; J1200; J1642; J1940; J1953; J2405; J3370; P9047

== ENCOUNTER → 2020-12-18 08:33 | Outpatient (BNVA) | payer MEDICARE, MEDICAID, SELFPAY | PROVIDERS: PCP Registered Nurse; Visit Provider Anesthesiology | DX: M35.2 Behcet's disease (principal); K50.90 Crohn's disease, unspecified, without complications; R10.84 Generalized abdominal pain; J81.1 Chronic pulmonary edema; M47.816 Spondylosis without myelopathy or radiculopathy, lumbar region; M43.16 Spondylolisthesis, lumbar region; M54.5 Low back pain; M54.2 Cervicalgia; G89.4 Chronic pain syndrome | CPT/HCPCS: 99212 ==

== ENCOUNTER 2020-12-31 15:48 | Emergency (ER) | payer MEDICARE, MEDICAID, SELFPAY ==
[2020-12-31 16:15] VITALS: BP 113/66; PULSE 69; RESP 16; TEMP 36.9; O2SAT 98; BMI 26.9
[2020-12-31 17:51] LABS: MANUAL DIFF FLAG NO
[2020-12-31 17:53] LABS: Basophils Percent Auto 0.5 % (0-2); Eosinophils Absolute Auto 0.1 X10*3/uL (0.0-0.4); Eosinophils Percent Auto 1.5 % (0-4); Hematocrit 39.7 % (37-47); Hemoglobin 13.3 g/dl (12.0-16.0); Imm Gran Abs Auto 0.01 X10*3/uL (0.00-0.03); Imm Gran Pct Auto 0.2 % (0.0-0.4); Lymphocytes Absolute Auto 1.6 X10*3/uL (1.2-4.9); Lymphocytes Percent Auto 26.5 % (20-40); Mean Corpuscular HGB Conc 33.5 g/dl (31.0-35.0); Mean Corpuscular Hemoglobin 29.5 pg (27.0-33.0); Mean Platelet Volume 10.2 fL (9.4-12.3); Monocytes Absolute Auto 0.5 X10*3/uL (0.1-1.2); Monocytes Percent Auto 9.1 % (2-11); Neutrophils Absolute Auto 3.7 X10*3/uL (2.0-8.3); Neutrophils Percent Auto 62.2 % (45-73); Platelet Count 185 X10*3/uL (160-400); Red Blood Count 4.51 X10*6/uL (4.20-5.50); Red Cell Distribution Width 13.2 % (11.0-16.0); White Blood Count 5.9 X10*3/uL (4.8-10.8)
[2020-12-31 18:29] LABS: Anion Gap 15 (12-20); Blood Urea Nitrogen 21 mg/dL (9-16); Calcium 9.5 mg/dL (8.4-10.2); Carbon Dioxide 24 mmol/L (22-29); Chloride 104 mmol/L (96-108); Creatinine Clr Calc Pharmacy 71.5; Estimated Glomerular Filt Rate > 60; Glucose Random 72 mg/dL (60-115); Sodium 139 mmol/L (135-145)
[2020-12-31 19:42] VITALS: BP 142/79; PULSE 76; RESP 16; O2SAT 98
--- NOTE | 2020-12-31 19:43 | ED.GENADULT ---
HPI - General Adult General Chief complaint: General Medical Stated complaint: LBP Time Seen by Provider: 12/31/20 19:43 Source: patient Mode of arrival: ambulatory Limitations: no limitations History of Present Illness HPI narrative: abdominal pain, nausea and vomiting. Patient came to [facility] and was discharged. She was then admitted for CHF to [place] for 5 days. Patient had a normal echo with no evidence of CHF. Patient had a port for her chronic medical problems. Patient had a CT scan that was undiagnostic. Patient was sent in for low blood pressure by dispatch. Onset (ago): week(s) Severity: mild Relieving factors: none Exacerbating factors: none Related Data Home Medications Medication Instructions Recorded Confirmed promethazine 25 mg tablet 25 mg PO QID PRN 04/02/20 12/12/20 tizanidine 4 mg tablet 4 mg PO TID PRN 04/02/20 12/12/20 apixaban 5 mg tablet (Eliquis) 5 mg PO BID 09/22/20 12/12/20 albuterol sulfate 90 mcg/actuation 2 puff INHALATION Q4H PRN 12/12/20 12/12/20 aerosol inhaler fluticasone furoate 200 1 inh INHALATION Q24H 12/12/20 12/12/20 mcg-vilanterol 25 mcg/dose inhalation powder (Breo Ellipta) levetiracetam 100 mg/mL oral 7 ml PO BID 12/12/20 12/12/20 solution umeclidinium 62.5 mcg/actuation 1 inh INHALATION DAILY 12/12/20 12/12/20 blister powder for inhalation (Incruse Ellipta) Previous Rx's Medication Instructions Recorded hydromorphone 4 mg tablet 4 mg PO TID PRN 30 Days #90 tab 11/20/20 Allergies Allergy/AdvReac Type Severity Reaction Status Date / Time ciprofloxacin [Cipro] Allergy Unknown unknown Verified 12/18/20 09:02 levofloxacin [Levaquin] Allergy Unknown unknown Verified 12/18/20 09:02 metoclopramide [Reglan] Allergy Unknown unknown Verified 12/18/20 09:02 ondansetron [Zofran] Allergy Unknown unknown Verified 12/18/20 09:02 penicillin V Allergy Unknown unknown Verified 12/18/20 09:02 Sulfa (Sulfonamide Allergy Unknown unknown Verified 12/18/20 09:02 Antibiotics) prochlorperazine Allergy unknown Verified 12/18/20 09:02 [From Compazine] thalidomide [From Thalomid] Allergy unknown Verified 12/18/20 09:02 Review of Systems Neurologic: Denies Sensory deficit (Neuro) [facility] Past Medical History Medical History (Updated 12/31/20 @ 20:51 by Sarwat Edgar MD) Abdominal pain Abdominal pain, chronic, generalized Behcet's disease Cervicalgia Chronic pain syndrome Crohn's disease Gastroparesis Low back pain Spondylolisthesis, lumbar region Spondylosis of lumbar region without myelopathy or radiculopathy Spontaneous pneumothorax Social History Social History Housing: [facility] Do you presently have visiting nurse or other home services: No Alcohol intake: never Patient Tobacco Use Status: Never used Tobacco Advance Directives: No Advance Directives Information Provided: No service: No Current occupational status: unemployed Physical Exam Vital Signs: Vital Signs: Last Vital Signs Temp 98.5 F 12/31/20 16:15 Pulse 76 12/31/20 19:42 Resp 16 12/31/20 19:42 BP 142/79 H 12/31/20 19:42 Pulse Ox 98 12/31/20 19:42 Body Mass Index 26.9 Const: General: healthy appearing Nutritional Appearance: average body habitus Orientation/consciousness: oriented to person and patient oriented x3 Limitations: no limitations HENMT: Head: Yes normal to inspection Ears: external ears normal General nose exam: Normal external nose present Mouth: Normal oral and palatal mucosa present and oropharynx normal Throat: Yes posterior oropharynx normal Eyes: General: appearance normal, both eyes and all related structures Neck: Other: supple Neck: Yes normal visual inspection Chest: Chest palpation & inspection: normal inspection of the chest Resp: Auscultation: clear to auscultation bilaterally Cardio: Jugular venous distension: no JVD Rate: regular rate Rhythm: regular rhythm Heart sounds: S1 normal heart sound present and S2 normal heart sound present GI: Inspection: Yes normal to inspection Palpation (GI): Soft to palpation, nontender and No hepatosplenomegaly present Auscultation: normal bowel sounds : General: Yes no CVA tenderness Back/Spine/Pelvis: Back: no CVA tenderness Skin: General skin exam: no rashes or lesions noted Neuro: General: oriented to person and patient oriented x3 Cranial nerves: Yes CN's II-XII intact bilaterally Motor exam (neuro): 5/5 motor strength present throughout Sensory Exam: No Sensory deficit (Neuro) Extrem: General: Yes normal to inspection Psych: Appearance: grossly normal Course Reevaluation(s) Reevaluation #1: Patient has normal BP will check renal function Time: 19:58 Reevaluation #2: Renal function normal, CBC improved, will dc home Time: 20:50 Medical Decision Making Lab Data Result diagrams: 12/31/20 17:43 12/31/20 17:43 Labs: Lab Results 12/31/20 12/31/20 Range/Units 17:43 17:43 WBC 5.9 (4.8-10.8) X10*3/uL RBC 4.51 (4.20-5.50) X10*6/uL Hgb 13.3 (12.0-16.0) g/dl Hct 39.7 (37-47) % MCV 88.0 (80-98) fL MCH 29.5 (27.0-33.0) pg MCHC 33.5 (31.0-35.0) g/dl RDW 13.2 (11.0-16.0) % Plt Count 185 (160-400) X10*3/uL MPV 10.2 (9.4-12.3) fL Immature Gran % (Auto) 0.2 (0.0-0.4) % Neut % (Auto) 62.2 (45-73) % Lymph % (Auto) 26.5 (20-40) % [place] % (Auto) 9.1 (2-11) % Eos % (Auto) 1.5 (0-4) % Baso % (Auto) 0.5 (0-2) % Lymph # (Auto) 1.6 (1.2-4.9) X10*3/uL [place] # (Auto) 0.5 (0.1-1.2) X10*3/uL Eos # (Auto) 0.1 (0.0-0.4) X10*3/uL Baso # (Auto) 0.0 (0.0-0.2) X10*3/uL Abs Immat Gran (auto) 0.01 (0.00-0.03) X10*3/uL Absolute Neuts (auto) 3.7 (2.0-8.3) X10*3/uL Absolute Nucleated RBC 0.000 (0.0-0.012) X10*3/uL Nucleated RBC % (auto) 0.0 (0.0-0.2) /100WBC Sodium 139 (135-145) mmol/L Potassium 4.0 (3.3-5.1) mmol/L Chloride 104 (96-108) mmol/L Carbon Dioxide 24 (22-29) mmol/L Anion Gap 15 (12-20) BUN 21 H D (9-16) mg/dL Creatinine 0.81 (0.5-1.4) mg/dL Estim Creat Clear Calc 71.5 Estimated GFR > 60 Random Glucose 72 (60-115) mg/dL Calcium 9.5 D (8.4-10.2) mg/dL Discharge Plan Discharge Clinical Impression: Behcet's disease Chronic pain Qualifiers: Chronic pain type: chronic pain syndrome Qualified Code(s): G89.4 - Chronic pain syndrome Patient Disposition: Home, Self-Care Instructions: Chronic Abdominal Pain (ED), Behcet Syndrome (ED) Additional Instructions: fluids as tolerated Prescriptions: No Action levetiracetam 100 mg/mL solution 7 ml PO BID RF: 0 albuterol sulfate 90 mcg/actuation Hfa Aerosol Inhaler 2 puff INHALATION Q4H PRN (Reason: Wheezing) RF: 0 Incruse Ellipta 62.5 mcg/actuation Blister With Device 1 inh INHALATION DAILY RF: 0 Breo Ellipta 200-25 mcg/dose Blister With Device 1 inh INHALATION Q24H RF: 0 tizanidine 4 mg tablet 4 mg PO TID PRN (Reason: Muscle Spasm) RF: 0 promethazine 25 mg tablet 25 mg PO QID PRN (Reason: nausea) RF: 0 Eliquis 5 mg tablet 5 mg PO BID RF: 0 hydromorphone 4 mg tablet 4 mg PO TID PRN (Reason: pain) 30 Days Qty: 90 RF: 0 Referrals: Amelie Banks NP [Primary Care Provider] - 1 week
== END 2020-12-31 21:11 | disposition home or self-care (01) ==
PROVIDERS: Emergency Provider Emergency Medicine; PCP Registered Nurse
DX: G89.4 Chronic pain syndrome (principal); M35.2 Behcet's disease; Z79.891 Long term (current) use of opiate analgesic; Z79.899 Other long term (current) drug therapy
CPT/HCPCS: 36415; 80048; 85025; 99283; 99284

== ENCOUNTER → 2021-01-14 08:35 | Outpatient (BNVA) | payer MEDICARE, MEDICAID, SELFPAY | PROVIDERS: PCP Registered Nurse; Visit Provider Anesthesiology | DX: M35.2 Behcet's disease (principal); K50.90 Crohn's disease, unspecified, without complications; M54.5 Low back pain; M54.2 Cervicalgia; G89.4 Chronic pain syndrome | CPT/HCPCS: 99212 ==

== ENCOUNTER 2021-01-21 10:56 | Emergency (ER) | payer MEDICARE, MEDICAID, SELFPAY ==
[2021-01-21] VITALS (7 sets, daily range): BP systolic 92–128; BP diastolic 40–65; PULSE 60–79; RESP 12–16; TEMP 36.7–37; O2SAT 94–99; BMI 39.5
--- NOTE | 2021-01-21 | ECG_ITS ---
Test Reason : CHEST PAIN Blood Pressure : / mmHG Vent. Rate : 060 BPM Atrial Rate : 060 BPM P-R Int : 122 ms QRS Dur : 074 ms QT Int : 426 ms P-R-T Axes : 050 017 030 degrees QTc Int : 426 ms Normal sinus rhythm Possible Left atrial enlargement Nonspecific ST abnormality Abnormal ECG When compared with ECG of 13-DEC-2020 23:48, Nonspecific T wave abnormality no longer evident in Anterior leads Referred By: Amelie Banks Electronically Signed By:CHRIS HANNON
--- NOTE | ~2021-01-21 | CT_ITS ---
EXAMINATION: CT ABDOMEN AND PELVIS WITH CONTRAST CLINICAL INFORMATION: Abdominal pain for one week COMPARISON: Previous CT of the abdomen and pelvis most recent November 2020 TECHNIQUE: Multidetector volumetric images were obtained from the superior aspect of the liver through the pubic symphysis following administration 85 mL of Omnipaque 350 intravenous contrast. Sagittal and coronal reformatted images were obtained on the technologist's workstation. Oral contrast: Yes This CT examination was performed using dose optimization techniques as appropriate, variously including the following: *Automated exposure control *Adjustment of mA and/or kV according to patient size (this includes techniques or standardized protocols for targeted exams where dose is matched to indication/reason for exam; i.e. extremities or head) *Use of iterative reconstruction technique DLP: 432 mGy-cm FINDINGS: LUNG BASES: There is pleural thickening and pleural-based calcified nodules seen at the left lung base. Largest nodule measures 6 mm in the lingula axial image 5 series 8. There is scarring or atelectasis in the right middle lobe. LIVER, GALLBLADDER, AND BILIARY TREE: The liver is normal in size, shape, and attenuation. No focal hepatic lesion or biliary ductal dilatation is present. The gallbladder is unremarkable with no evidence of radiopaque gallstones, gallbladder wall thickening, or obvious pericholecystic inflammatory changes. PANCREAS: Unremarkable. SPLEEN: Unremarkable. ADRENAL GLANDS: Unremarkable. KIDNEYS AND URETERS: The kidneys are normal in size, shape, and attenuation. No hydronephrosis, hydroureter, or calculi seen. No perinephric stranding. BLADDER: There is a small amount of air in the bladder. GASTROINTESTINAL TRACT: There is stool throughout the colon suggestive of constipation. There is a small ventral hernia seen in the left anterior abdominal wall containing a knuckle of small bowel. There is no evidence of obstruction. Small and large bowel is otherwise unremarkable. The appendix is not seen. The stomach is unremarkable. ABDOMINAL WALL: There are postsurgical changes to the abdominal wall. There is a diffuse bulge or broad-based upper abdominal wall hernia measuring 10 cm in length beginning just above the umbilicus. There is a small incisional hernia seen in the left anterior abdominal wall containing a knuckle of bowel axial image 38 series 3. There is evidence of previous left abdominal wall hernia repair with mesh. LYMPH NODES: Normal. VASCULAR: There is a translumbar port with tip in the IVC/right atrial junction. There are collateral vessels seen anterior abdominal wall. PELVIC VISCERA: Unremarkable. OSSEOUS STRUCTURES: There is mild anterior subluxation of L5 with respect to S1. There is a facet arthritis at L5-S1. CT/CT abdomen pelvis w con IMPRESSION: Constipation. Postsurgical changes to the abdominal wall. Large bulge or broad-based supraumbilical abdominal wall hernia and small left incisional hernia containing a knuckle of small bowel. No evidence of obstruction. Small amount of air in the bladder. This may be related to recent catheterization. Clinical correlation recommended.
--- NOTE | 2021-01-21 12:16 | ED_ITS ---
HPI - Abdominal Pain General Chief Complaint: Abdominal Pain Stated Complaint: abd pain Time Seen by Provider: 01/21/21 11:41 Source: patient Mode of arrival: ambulatory Limitations: no limitations History of Present Illness HPI narrative: 40-year-old female who presents emergency department for evaluation of abdominal pain. The patient states that she has chronic abdominal pain and is treated with IV Zofran, IV Benadryl, oral hydromorphone and TPN. The patient has a Port-A-Cath in her right lateral posterior chest/abdomen that she gets these medications through. The patient states that she has chronic abdominal pain but over the past week her pain is changed. She states that she now has a sharp pain which is constant and a cramping sensation which is intermittent. The pain is located just below her umbilicus. She states that the pain is 8/10. She has had associated nausea with no vomiting. She states she feels distended. She has had no bowel movement in 2 weeks. She states that her IV treatment and her oral hydromorphone has not been helping her symptoms. She denied fever, chills, chest pain, shortness of breath, cough, myalgias or arthralgias. She states that she tested -2 days prior for COVID-19. She states that she has received a 2 shot COVID-19 vaccination with her 2nd shot given 4 months prior. The patient has a history of Bechet's disease and Crohn's disease and she states this is the cause of her chronic abdominal pain and her need for IV TPN. Patient states that she has had adhesions in the past and may have had a small bowel obstruction in the past as well. She has had 2 hernia repairs and she has had multiple fistulas requiring repair. Related Data Home Medications Medication Instructions Recorded Confirmed promethazine 25 mg tablet 25 mg PO QID PRN 04/02/20 01/14/21 tizanidine 4 mg tablet 4 mg PO TID PRN 04/02/20 01/14/21 apixaban 5 mg tablet (Eliquis) 5 mg PO BID 09/22/20 01/14/21 albuterol sulfate 90 mcg/actuation 2 puff INHALATION Q4H PRN 12/12/20 01/14/21 aerosol inhaler fluticasone furoate 200 1 inh INHALATION Q24H 12/12/20 01/14/21 mcg-vilanterol 25 mcg/dose inhalation powder (Breo Ellipta) levetiracetam 100 mg/mL oral 7 ml PO BID 12/12/20 01/14/21 solution umeclidinium 62.5 mcg/actuation 1 inh INHALATION DAILY 12/12/20 01/14/21 blister powder for inhalation (Incruse Ellipta) Previous Rx's Medication Instructions Recorded hydromorphone 4 mg tablet 4 mg PO TID PRN 30 Days #90 tab 01/14/21 Allergies Allergy/AdvReac Type Severity Reaction Status Date / Time ciprofloxacin [Cipro] Allergy Unknown unknown Verified 01/14/21 09:04 levofloxacin [Levaquin] Allergy Unknown unknown Verified 01/14/21 09:04 metoclopramide [Reglan] Allergy Unknown unknown Verified 01/14/21 09:04 ondansetron [Zofran] Allergy Unknown unknown Verified 01/14/21 09:04 penicillin V Allergy Unknown unknown Verified 01/14/21 09:04 Sulfa (Sulfonamide Allergy Unknown unknown Verified 01/14/21 09:04 Antibiotics) prochlorperazine Allergy unknown Verified 01/14/21 09:04 [From Compazine] thalidomide [From Thalomid] Allergy unknown Verified 01/14/21 09:04 Review of Systems Review of Systems Yes all other systems are reviewed and are negative Physical Exam Vital Signs: Vital Signs: Last Vital Signs Temp 98.1 F 01/21/21 14:17 Pulse 63 01/21/21 14:43 Resp 15 01/21/21 14:43 BP 110/54 L 01/21/21 14:43 Pulse Ox 99 01/21/21 14:43 Body Mass Index 39.5 Const: Other: Awake, alert, female, very pleasant and cooperative, she does not appear to be in distress. She answers all questions appropriately. HENMT: Head: Yes normal to inspection, Yes normocephalic and Yes atraumatic Ears: external ears normal General nose exam: Normal external nose present Face and sinus: Yes normal facial exam Mouth: Normal oral and palatal mucosa present Throat: Yes posterior oropharynx normal Eyes: General: appearance normal, both eyes and all related structures Pupils: Equal, round and reactive pupils present Neck: Neck: Yes normal visual inspection, Yes no lymphadenopathy, Yes trachea midline and Yes supple Chest: Chest palpation & inspection: normal inspection of the chest and normal palpation of entire chest wall Resp: Effort & Inspection: normal respiratory effort and able to speak in complete sentences Auscultation: clear to auscultation bilaterally Cardio: Rate: regular rate Rhythm: regular rhythm Heart sounds: S1 normal heart sound present, S2 normal heart sound present and no murmurs GI: Inspection: Yes distended Palpation (GI): Soft to palpation, Tenderness to palpation present (GI) (Moderate periumbilical tenderness) and no guarding Auscultation: High-pitched bowel sounds present : General: Yes no CVA tenderness Back/Spine/Pelvis: Back: no CVA tenderness Skin: General skin exam: no rashes or lesions noted Neuro: Cranial nerves: Yes CN's II-XII intact bilaterally and Yes Equal, round and reactive pupils present Cognition (Neuro): normal cognition Motor exam (neuro): 5/5 motor strength present throughout Extrem: General: Yes normal to inspection Psych: Appearance: grossly normal Speech and movement: Normal speech and movement present Affect: normal affect Attitude: cooperative Thought process: Normal thought process present Thought content: Normal thought content present Course Course Course Narrative: 40-year-old female who presents emergency department for evaluation of 1 week abdominal pain, abdominal distension, no bowel movements x2 weeks and nausea. The patient has a history of chronic abdominal pain but states that today's symptoms and pain are different than her usual pain. The patient does receive IV TPN, IV Zofran and IV Benadryl at home for her symptoms. She also takes hydromorphone 4 mg 3 times a day for her chronic pain which is had no affect on her abdominal pain. Vital signs revealed a blood pressure of 99/51, normal pulse of 72, afebrile with a temperature of 98.6? and an O2 saturation of 94% on room air. Physical examination did reveal a slightly distended abdomen with high-pitched bowel sounds and tenderness with palpation over the periumbilical area of her abdomen. Given this change her chronic abdominal pain and her physical exam findings, I am concerned that she may have a small-bowel obstruction. Rectal examination revealed no stool in the rectum. I ordered an abdominal laboratory evaluation. EKG and troponin. CT scan of the abdomen pelvis with IV contrast will also be obtained. Patient was ordered to get normal saline x1 L, Zofran 4 mg IV, Benadryl 4 mg IV and hydromorphone 1 mg IV for her pain. 1532: The patient's laboratory evaluation revealed anemia with an H&H of 11.6 and 34.3. The laboratory evaluation was otherwise unremarkable. Urinalysis was unremarkable. CT scan of the abdomen pelvis with IV contrast did not reveal a clear etiology for the patient's pain, there is no small-bowel obstruction. The patient does have 2 hernias but I do not think this is the cause of her pain. The patient does have a large stool burden. I did discuss these findings with the patient. The patient did require 2 more doses of hydromorphone 1 mg IV for pain. The patient will be discharged home she was advised to continue taking her medications as prescribed by her doctor and to continue with her bowel regimen. I also advised to take Senokot twice a day for 4 days to see if this helps with her constipation. The patient was discharged home. The patient was given verbal and printed instructions prior to discharge. The patient was advised to follow-up with her PCP in 2 days and to return to the emergency department if her symptoms get worse or if she develops any new symptoms that are concerning to her. MDM - Abdominal Pain Lab Data Result diagrams: 01/21/21 12:50 01/21/21 12:50 Labs: Lab Results 01/21/21 01/21/21 01/21/21 Range/Units 12:07 12:50 12:50 WBC 5.5 (4.8-10.8) X10*3/uL RBC 3.93 L (4.20-5.50) X10*6/uL Hgb 11.6 L (12.0-16.0) g/dl Hct 34.3 L (37-47) % MCV 87.3 (80-98) fL MCH 29.5 (27.0-33.0) pg MCHC 33.8 (31.0-35.0) g/dl RDW 13.3 (11.0-16.0) % Plt Count 191 (160-400) X10*3/uL MPV 10.3 (9.4-12.3) fL Immature Gran % (Auto) 0.2 (0.0-0.4) % Neut % (Auto) 69.4 (45-73) % Lymph % (Auto) 21.3 (20-40) % [place] % (Auto) 6.9 (2-11) % Eos % (Auto) 1.8 (0-4) % Baso % (Auto) 0.4 (0-2) % Lymph # (Auto) 1.2 (1.2-4.9) X10*3/uL [place] # (Auto) 0.4 (0.1-1.2) X10*3/uL Eos # (Auto) 0.1 (0.0-0.4) X10*3/uL Baso # (Auto) 0.0 (0.0-0.2) X10*3/uL Abs Immat Gran (auto) 0.01 (0.00-0.03) X10*3/uL Absolute Neuts (auto) 3.8 (2.0-8.3) X10*3/uL Absolute Nucleated RBC 0.000 (0.0-0.012) X10*3/uL Nucleated RBC % (auto) 0.0 (0.0-0.2) /100WBC Sodium (135-145) mmol/L Potassium (3.3-5.1) mmol/L Chloride (96-108) mmol/L Carbon Dioxide (22-29) mmol/L Anion Gap (12-20) BUN (9-16) mg/dL Creatinine (0.5-1.4) mg/dL Estim Creat Clear Calc Estimated GFR Random Glucose (60-115) mg/dL Calcium (8.4-10.2) mg/dL Total Bilirubin (0.0-1.0) mg/dL AST (5-31) U/L ALT (0-31) U/L Alkaline Phosphatase (39-117) U/L Troponin I High Sens < 3.5 (<3.5-17.0) ng/L Total Protein (6.5-8.0) g/dL Albumin (3.5-5.0) g/dL Lipase (8-78) U/L Urine Color YELLOW Urine Appearance CLEAR Urine pH 6.0 (5.0-8.0) Ur Specific [place] >= 1.030 H (1.005-1.025) Urine Protein NEG (NEG-TRACE) MG/DL Urine Glucose (UA) NEG (NEG) MG/DL Urine Ketones NEG (NEG) MG/DL Urine Blood TRACE (NEG) Urine Nitrite NEG (NEG) Ur Leukocyte Esterase NEG (NEG) Urine RBC 1-4 (0) /HPF Urine WBC 1-4 (0-4) /HPF Ur Squamous Epith Cells NONE /LPF Urine Bacteria TRACE /LPF 01/21/21 Range/Units 12:50 WBC (4.8-10.8) X10*3/uL RBC (4.20-5.50) X10*6/uL Hgb (12.0-16.0) g/dl Hct (37-47) % MCV (80-98) fL MCH (27.0-33.0) pg MCHC (31.0-35.0) g/dl RDW (11.0-16.0) % Plt Count (160-400) X10*3/uL MPV (9.4-12.3) fL Immature Gran % (Auto) (0.0-0.4) % Neut % (Auto) (45-73) % Lymph % (Auto) (20-40) % [place] % (Auto) (2-11) % Eos % (Auto) (0-4) % Baso % (Auto) (0-2) % Lymph # (Auto) (1.2-4.9) X10*3/uL [place] # (Auto) (0.1-1.2) X10*3/uL Eos # (Auto) (0.0-0.4) X10*3/uL Baso # (Auto) (0.0-0.2) X10*3/uL Abs Immat Gran (auto) (0.00-0.03) X10*3/uL Absolute Neuts (auto) (2.0-8.3) X10*3/uL Absolute Nucleated RBC (0.0-0.012) X10*3/uL Nucleated RBC % (auto) (0.0-0.2) /100WBC Sodium 138 (135-145) mmol/L Potassium 4.1 (3.3-5.1) mmol/L Chloride 107 (96-108) mmol/L Carbon Dioxide 24 (22-29) mmol/L Anion Gap 11 L (12-20) BUN 20 H (9-16) mg/dL Creatinine 0.77 (0.5-1.4) mg/dL Estim Creat Clear Calc 55.0 Estimated GFR > 60 Random Glucose 77 (60-115) mg/dL Calcium 8.8 D (8.4-10.2) mg/dL Total Bilirubin 0.4 (0.0-1.0) mg/dL AST 16 (5-31) U/L ALT 9 (0-31) U/L Alkaline Phosphatase 53 (39-117) U/L Troponin I High Sens (<3.5-17.0) ng/L Total Protein 6.0 L (6.5-8.0) g/dL Albumin 4.0 (3.5-5.0) g/dL Lipase 6 L (8-78) U/L Urine Color Urine Appearance Urine pH (5.0-8.0) Ur Specific [place] (1.005-1.025) Urine Protein (NEG-TRACE) MG/DL Urine Glucose (UA) (NEG) MG/DL Urine Ketones (NEG) MG/DL Urine Blood (NEG) Urine Nitrite (NEG) Ur Leukocyte Esterase (NEG) Urine RBC (0) /HPF Urine WBC (0-4) /HPF Ur Squamous Epith Cells /LPF Urine Bacteria /LPF ECG Data Attestation: I personally reviewed and interpreted this ECG as follows: Interpretation: 1237: Normal sinus rhythm rate of 60, normal ME interval, QRS duration and QTC interval, no ST segment elevation, no ST segment depression, inverted T-wave in lead 3, and the 1, no PACs, no PVCs, no old EKG for comparison. Discharge Plan Discharge Clinical Impression: Abdominal pain Qualifiers: Abdominal location: periumbilical Qualified Code(s): R10.33 - Periumbilical pain Patient Disposition: Home, Self-Care Instructions: Abdominal Pain (ED), Constipation (ED) Additional Instructions: Continue taking your MiraLax and do black suppositories as prescribed by your doctor. Take Senokot extra-strength 1 pill twice a day for 4 days. This is a laxative and may help with your constipation. Follow-up with your doctor in 2 days. Please return to the emergency department if your symptoms get worse or if you develop any symptoms that are concerning to you. Prescriptions: No Action levetiracetam 100 mg/mL solution 7 ml PO BID RF: 0 albuterol sulfate 90 mcg/actuation Hfa Aerosol Inhaler 2 puff INHALATION Q4H PRN (Reason: Wheezing) RF: 0 Incruse Ellipta 62.5 mcg/actuation Blister With Device 1 inh INHALATION DAILY RF: 0 Breo Ellipta 200-25 mcg/dose Blister With Device 1 inh INHALATION Q24H RF: 0 tizanidine 4 mg tablet 4 mg PO TID PRN (Reason: Muscle Spasm) RF: 0 promethazine 25 mg tablet 25 mg PO QID PRN (Reason: nausea) RF: 0 hydromorphone 4 mg tablet 4 mg PO TID PRN (Reason: pain) 30 Days Qty: 90 RF: 0 Eliquis 5 mg tablet 5 mg PO BID RF: 0 PMFSH Past Medical History PMFSH Narrative: Past surgical history: Small-bowel obstruction secondary to adhesions, laparoscopic surgery to break down adhesions, hernia repair x2, multiple fistulas requiring repair, G-tube and J-tube in the past. Social history: She denies tobacco use, she denies alcohol use, she denies drug use. Medical History Abdominal pain Abdominal pain, chronic, generalized Behcet's disease Cervicalgia Chronic pain syndrome Crohn's disease Gastroparesis Low back pain Spondylolisthesis, lumbar region Spondylosis of lumbar region without myelopathy or radiculopathy Spontaneous pneumothorax Social History Social History [facility] Do you presently have visiting nurse or other home services: No Alcohol intake: never Patient Tobacco Use Status: Never used Tobacco Use of substances other than those prescribed or required for medical reasons: No Advance Directives: Yes Advance Directives Information Provided: Yes Advance Directives on File: No service: No Current occupational status: unemployed
[2021-01-21 12:26] LABS: Appearance Urine CLEAR; Color Urine YELLOW; Glucose Urine UA NEG (NEG); Leukocyte Esterase Urine NEG (NEG); Nitrite Urine NEG (NEG); Specific Gravity - Urine >= 1.030 (1.005-1.025); UACC Culture Trigger NO; Urine Blood TRACE (NEG); Urine Ketones NEG (NEG); Urine Protein NEG (NEG-TRACE)
[2021-01-21] MEDS: 0.9 % Sodium Chloride 1,000 ML 999 ML IV (12:39)
[2021-01-21] MEDS: diphenhydrAMINE HCL 50 MG/ML VIAL 25 MG IVPUSH (12:39)
[2021-01-21] MEDS: HYDROmorphone HCl 2 MG/ML VIAL 1 MG IVPUSH ×3 (12:39→15:48)
[2021-01-21] MEDS: ondansetron HCL 4 MG/2 ML VIAL IVPUSH (12:40)
[2021-01-21 12:50] LABS: Bacteria Urine TRACE /LPF
[2021-01-21 12:54] LABS: MANUAL DIFF FLAG NO
[2021-01-21 13:04] LABS: Basophils Percent Auto 0.4 % (0-2); Eosinophils Absolute Auto 0.1 X10*3/uL (0.0-0.4); Eosinophils Percent Auto 1.8 % (0-4); Hematocrit 34.3 % (37-47); Hemoglobin 11.6 g/dl (12.0-16.0); Imm Gran Abs Auto 0.01 X10*3/uL (0.00-0.03); Imm Gran Pct Auto 0.2 % (0.0-0.4); Lymphocytes Absolute Auto 1.2 X10*3/uL (1.2-4.9); Lymphocytes Percent Auto 21.3 % (20-40); Mean Corpuscular HGB Conc 33.8 g/dl (31.0-35.0); Mean Corpuscular Hemoglobin 29.5 pg (27.0-33.0); Mean Corpuscular Volume 87.3 fL (80-98); Mean Platelet Volume 10.3 fL (9.4-12.3); Monocytes Absolute Auto 0.4 X10*3/uL (0.1-1.2); Monocytes Percent Auto 6.9 % (2-11); Neutrophils Absolute Auto 3.8 X10*3/uL (2.0-8.3); Neutrophils Percent Auto 69.4 % (45-73); Platelet Count 191 X10*3/uL (160-400); Red Blood Count 3.93 X10*6/uL (4.20-5.50); Red Cell Distribution Width 13.3 % (11.0-16.0); White Blood Count 5.5 X10*3/uL (4.8-10.8)
[2021-01-21 13:13] LABS: Alanine Aminotransferase 9 U/L (0-31); Alkaline Phosphatase 53 U/L (39-117); Anion Gap 11 (12-20); Aspartate Amino Transferase 16 U/L (5-31); Bilirubin Total 0.4 mg/dL (0.0-1.0); Blood Urea Nitrogen 20 mg/dL (9-16); Calcium 8.8 mg/dL (8.4-10.2); Carbon Dioxide 24 mmol/L (22-29); Chloride 107 mmol/L (96-108); Estimated Glomerular Filt Rate > 60; Glucose Random 77 mg/dL (60-115); Lipase 6 U/L (8-78); Potassium 4.1 mmol/L (3.3-5.1); Sodium 138 mmol/L (135-145)
[2021-01-21 13:16] LABS: Troponin-I High Sensitivity < 3.5 ng/L (<3.5-17.0)
[2021-01-21] MEDS: iohexoL 350 MG/ML 100 ML INFUS..BTL IV (13:58)
== END 2021-01-21 17:08 | disposition home or self-care (01) ==
PROVIDERS: Emergency Provider Emergency Medicine Emergency Medical Services; PCP Registered Nurse
DX: R10.33 Periumbilical pain (principal); K50.90 Crohn's disease, unspecified, without complications; M35.2 Behcet's disease
CPT/HCPCS: 36415; 74177; 80053; 81001; 83690; 84484; 85025; 93005; 96361; 96374; 96375; 96376; 99284; 99285; J1170; J1200; J2405; Q9967

== ENCOUNTER → 2021-02-11 08:43 | Outpatient (BNVA) | payer MEDICARE, MEDICAID, SELFPAY | PROVIDERS: PCP Registered Nurse; Visit Provider Anesthesiology | DX: Z51.81 Encounter for therapeutic drug level monitoring (principal); M35.2 Behcet's disease; K50.90 Crohn's disease, unspecified, without complications; M54.5 Low back pain; M54.2 Cervicalgia; G89.4 Chronic pain syndrome | CPT/HCPCS: 99212 ==

== ENCOUNTER 2021-03-12 06:52 | Inpatient (IN) | payer MEDICARE, MEDICAID, SELFPAY ==
--- NOTE | ~2021-03-12 | CT_ITS ---
EXAMINATION: CT ABDOMEN AND PELVIS WITH CONTRAST CLINICAL INFORMATION: Severe abdominal pain. Right lower quadrant tenderness. History of Crohn's disease. COMPARISON: January 21, 2021 and December 12, 2020 TECHNIQUE: Multidetector volumetric images were obtained from the superior aspect of the liver through the pubic symphysis following administration 85 mL of Omnipaque 350 intravenous contrast. Sagittal and coronal reformatted images were obtained on the technologist's workstation. Oral contrast: No This CT examination was performed using dose optimization techniques as appropriate, variously including the following: *Automated exposure control *Adjustment of mA and/or kV according to patient size (this includes techniques or standardized protocols for targeted exams where dose is matched to indication/reason for exam; i.e. extremities or head) *Use of iterative reconstruction technique DLP: 464 mGy-cm FINDINGS: LUNG BASES: There is pleural-parenchymal scarring seen within the lingula and left lower lobe. There is a calcified granuloma left lung base. No pleural or pericardial effusion. LIVER, GALLBLADDER, AND BILIARY TREE: The liver is normal in size, shape, and attenuation. No focal hepatic lesion or biliary ductal dilatation is present. The gallbladder is unremarkable with no evidence of radiopaque gallstones, gallbladder wall thickening, or obvious pericholecystic inflammatory changes. PANCREAS: Unremarkable. SPLEEN: Unremarkable. ADRENAL GLANDS: Unremarkable. KIDNEYS AND URETERS: The kidneys are normal in size, shape, and attenuation. No hydronephrosis, hydroureter, or calculi seen. No perinephric stranding. There is a subcentimeter cyst or angiomyolipoma upper pole of the left kidney. BLADDER: Unremarkable. GASTROINTESTINAL TRACT: No free air or free fluid. No dilated loops of large or small bowel are evident. There is a moderate stool burden seen within the colon. No evidence of acute diverticulitis. The appendix is visualized and appears unremarkable. There is some mild wall thickening within the transverse and proximal descending colon with minimal adjacent fat stranding. No definite abnormality of the terminal ileum is appreciated. No abnormal fluid collections appreciated. ABDOMINAL WALL: There is a supraumbilical fat-containing hernia seen with diastases of the rectus muscles by 7 cm. Left abdominal wall mesh is seen in place. Surgical scar is seen within the left anterior abdomen. There is a 9 mm subcutaneous density seen about the left back. LYMPH NODES: No lymphadenopathy appreciated. VASCULAR: There is a transvenous lumbar IVC catheter in place about the right posterior wall with tip in the region of the caval atrial junction. Numerous collateral vessels are seen about the abdominal wall. Portal vein patent. No abdominal aortic aneurysm. PELVIC VISCERA: Unremarkable. OSSEOUS STRUCTURES: No suspicious destructive bony lesions identified. There is degenerative disc disease with sclerosis seen at the L3-L4 level. CT/CT abdomen pelvis w con IMPRESSION: No evidence of terminal ileitis. No evidence of bowel obstruction. Mild bowel wall thickening and minimal pericolonic stranding involving the transverse and proximal descending colon which may be related to early or mild colitis. Moderate stool burden. Anterior abdominal wall hernias as described.
[2021-03-12 07:04] VITALS: BP 126/100; BP 126/72; PULSE 64; PULSE 76; RESP 18; TEMP 36.6; O2SAT 96; O2SAT 99; BMI 25.9
[2021-03-12 07:11] LABS: Glucose, Whole Blood 120 mg/dL (60-115)
[2021-03-12 07:30] LABS: Hematocrit 39.5 % (37-47); Hemoglobin 13.5 g/dl (12.0-16.0); Mean Corpuscular HGB Conc 34.2 g/dl (31.0-35.0); Mean Corpuscular Hemoglobin 29.7 pg (27.0-33.0); Mean Corpuscular Volume 86.8 fL (80-98); Mean Platelet Volume 10.6 fL (9.4-12.3); Platelet Count 204 X10*3/uL (160-400); Red Blood Count 4.55 X10*6/uL (4.20-5.50); Red Cell Distribution Width 13.1 % (11.0-16.0); White Blood Count 11.9 X10*3/uL (4.8-10.8)
--- NOTE | 2021-03-12 08:23 | ED_ITS ---
HPI - Abdominal Pain General Chief Complaint: Abdominal Pain Stated Complaint: nausea/abd pain Time Seen by Provider: 03/12/21 08:00 Source: patient and EMS Mode of arrival: EMS Limitations: no limitations History of Present Illness HPI narrative: 40 y/o female with history of Crohn's disease, Bechet's disease, history of multiple abdominal surgeries in the past (last was 3 years ago at [facility] per her report), history of chronic abdominal pain on chronic opiates and TPN at home via port, history of gastroparesis, pyloric stenosis s/p dilatation, s/p PEG (has since been removed) who presents to the ER from home via EMS with acute onset of severe diffuse abdominal pain and back pain that started at 03:00 this morning. The pain woke her up out of sleep. She reports that comes and goes, comes in waves and is very sharp in nature. She is nauseous and vomited a few times. She has had no diarrhea. She reports over the last couple of weeks she has had blood-streaked stools and her GI doctor from [facility] is aware of this. She is not currently on any medication for her Crohn's disease. No fever or chills, no urinary symptoms. MD elicited complaint: abdominal pain Pertinent past history: other (History of Crohn's disease with multiple lukas geries.) Onset (ago): hour(s) (6) Pain Consistency: colicky Location: diffuse Severity: severe Pain scale (0-10): 10 Quality: stabbing and sharp Exacerbating factors: movement Relieving factors: nothing Context: history of similar episodes Associated symptoms: nausea and vomiting Related Data Home Medications Medication Instructions Recorded Confirmed promethazine 25 mg tablet 25 mg PO QID PRN 04/02/20 03/12/21 tizanidine 4 mg tablet 4 mg PO TID PRN 04/02/20 03/12/21 apixaban 5 mg tablet (Eliquis) 5 mg PO BID 09/22/20 03/12/21 albuterol sulfate 90 mcg/actuation 2 puff INHALATION Q4H PRN 12/12/20 03/12/21 aerosol inhaler fluticasone furoate 200 1 inh INHALATION Q24H 12/12/20 03/12/21 mcg-vilanterol 25 mcg/dose inhalation powder (Breo Ellipta) levetiracetam 100 mg/mL oral 7 ml PO BID 12/12/20 03/12/21 solution umeclidinium 62.5 mcg/actuation 1 inh INHALATION DAILY 12/12/20 03/12/21 blister powder for inhalation (Incruse Ellipta) acetaminophen 325 mg tablet 650 mg PO Q4H PRN 03/12/21 03/12/21 diphenhydramine HCl 50 mg/mL 25 mg IV QID PRN 03/12/21 03/12/21 injection solution ondansetron HCl (PF) 4 mg/2 mL 4 mg IV TID PRN 03/12/21 03/12/21 injection solution Previous Rx's Medication Instructions Recorded hydromorphone 4 mg tablet 4 mg PO TID PRN 30 Days #90 tab 02/11/21 Allergies Allergy/AdvReac Type Severity Reaction Status Date / Time ciprofloxacin [Cipro] Allergy Unknown unknown Verified 02/11/21 08:49 levofloxacin [Levaquin] Allergy Unknown unknown Verified 02/11/21 08:49 metoclopramide [Reglan] Allergy Unknown unknown Verified 02/11/21 08:49 ondansetron [Zofran] Allergy Unknown unknown Verified 02/11/21 08:49 penicillin V Allergy Unknown unknown Verified 02/11/21 08:49 Sulfa (Sulfonamide Allergy Unknown unknown Verified 02/11/21 08:49 Antibiotics) prochlorperazine Allergy unknown Verified 02/11/21 08:49 [From Compazine] thalidomide [From Thalomid] Allergy unknown Verified 02/11/21 08:49 Review of Systems Review of Systems Constitutional: No Fever, No Chills ENT/Mouth: No sore throat, No Rhinorrhea, No Swallowing Difficulty Cardiovascular: No Chest Pain, No SOB, No Orthopnea, No Edema Respiratory: No Cough, No Sputum, No Wheezing, No dyspnea Gastrointestinal: + Nausea, + Vomiting, No Diarrhea, + abdominal Pain, No Hematochezia, No Melena Genitourinary: No Dysuria, No Urinary Frequency, No Hematuria Musculoskeletal: No joint pain, No Myalgias Skin: No Skin Lesions, No rash Neuro: No Weakness, No Numbness, No Dizziness, No Headache Psych: No Anxiety/Panic, No Depression Heme/Lymph: No Bruising, No Lymphadenopathy Endocrine: No Polyuria, No Polydipsia Physical Exam Vital Signs: Vital Signs: Last Vital Signs Temp 98 F 03/12/21 14:33 Pulse 80 03/12/21 14:33 Resp 16 03/12/21 14:33 BP 125/64 03/12/21 14:33 Pulse Ox 98 03/12/21 14:33 Body Mass Index 25.9 Appearance: Alert. Oriented X3. No acute distress. Eyes: Pupils equal, round and reactive to light. ENT: Pharynx normal. Neck: Normal inspection. Neck supple. CVS: Normal heart rate and rhythm. Pulses normal. Respiratory: No respiratory distress. Breath sounds normal. Abdomen: Multiple well-healed surgical scars throughout the abdomen, abdomen is soft with diffuse tenderness and guarding in the right lower quadrant. Skin: Skin warm and dry. Normal skin color. Normal skin turgor. No rashes. Extremities: No lower extremity edema. Neuro: Oriented X 3. No motor deficit. No sensory deficit. Course Course Course Narrative: 40-year-old female with a history of severe Crohn's disease requiring TPN at home and multiple abdominal surgeries in the past presents with acute onset of severe abdominal pain that started at 03:00 this morning. Associated with nausea and vomiting. No diarrhea. She is diffusely tender on exam, slightly worse on the right side. Will medicate with IV Dilaudid and reassess. Will get CT of the abdomen for further evaluation. Reevaluation(s) Reevaluation #1: Continues to report 9/10 abdominal pain after the IV dilaudid. Requesting more pain medication before CT scan. Additional IV dilaudid has been ordered. Reevaluation #2: CT scan shows no terminal ileitis and no obstruction. There is evidence of possible early or mild colitis, with and minimal pericolonic stranding involving the transverse and proximal descending colon. There is moderate stool burden. Patient reports new onset of nonbloody diarrhea since being in the emergency room. She continues to have 9/10 pain despite 3 doses of IV Dilaudid. Will plan for admission for pain control and GI consult. Dr. Alvarado has been called for recommendations. Reevaluation #3: Spoke with Dr. Alvarado - recommends low dose IV solumedrol 20 mg q8 for now, holding off on abx. Consultations Consultation #1: GI - Dr. Alvarado [facility] - Abdominal Pain Lab Data Result diagrams: 03/12/21 07:16 03/12/21 07:16 Labs: Lab Results 03/12/21 03/12/21 03/12/21 Range/Units 07:08 07:16 07:16 WBC 11.9 H (4.8-10.8) X10*3/uL RBC 4.55 (4.20-5.50) X10*6/uL Hgb 13.5 (12.0-16.0) g/dl Hct 39.5 (37-47) % MCV 86.8 (80-98) fL MCH 29.7 (27.0-33.0) pg MCHC 34.2 (31.0-35.0) g/dl RDW 13.1 (11.0-16.0) % Plt Count 204 (160-400) X10*3/uL MPV 10.6 (9.4-12.3) fL Absolute Nucleated RBC 0.000 (0.0-0.012) X10*3/uL Nucleated RBC % (auto) 0.0 (0.0-0.2) /100WBC Sodium 141 (135-145) mmol/L Potassium 3.7 (3.3-5.1) mmol/L Chloride 108 (96-108) mmol/L Carbon Dioxide 21 L (22-29) mmol/L Anion Gap 16 (12-20) BUN 16 (9-16) mg/dL Creatinine 0.79 (0.5-1.4) mg/dL Estim Creat Clear Calc 81.7 Estimated GFR > 60 POC Glucose 120 H (60-115) mg/dL Random Glucose 124 H (60-115) mg/dL Calcium 9.0 (8.4-10.2) mg/dL Lipase 28 (8-78) U/L COVID-19 ([facility]) (Negative) COVID-19 Clin Com 03/12/21 Range/Units 10:37 WBC (4.8-10.8) X10*3/uL RBC (4.20-5.50) X10*6/uL Hgb (12.0-16.0) g/dl Hct (37-47) % MCV (80-98) fL MCH (27.0-33.0) pg MCHC (31.0-35.0) g/dl RDW (11.0-16.0) % Plt Count (160-400) X10*3/uL MPV (9.4-12.3) fL Absolute Nucleated RBC (0.0-0.012) X10*3/uL Nucleated RBC % (auto) (0.0-0.2) /100WBC Sodium (135-145) mmol/L Potassium (3.3-5.1) mmol/L Chloride (96-108) mmol/L Carbon Dioxide (22-29) mmol/L Anion Gap (12-20) BUN (9-16) mg/dL Creatinine (0.5-1.4) mg/dL Estim Creat Clear Calc Estimated GFR POC Glucose (60-115) mg/dL Random Glucose (60-115) mg/dL Calcium (8.4-10.2) mg/dL Lipase (8-78) U/L COVID-19 ([facility]) Negative (Negative) COVID-19 Clin Com See Note Critical Care Time Critical Care Time Critical Care Time: Yes Total Critical Care Time: 40 Attestation: I have personally provided critical care time exclusive of time spent on separately billable procedures. Time includes review of lab data, radiology results, discussion with consultants, and monitoring for potential decompensation. She required multiple doses of IV narcotics for adequate pain control, this required frequent bedside reassessments of her hemodynamics and abdominal exam. Intervention performed as documented. Discharge Plan Discharge Clinical Impression: Crohn's disease Qualifiers: Gastrointestinal tract location: unspecified location Digestive disease complic ation type: other complication Qualified Code(s): K50.918 - Crohn's disease, unspecified, with other complication Patient Disposition: Admitted As Inpatient [facility] Past Medical History Medical History (Updated 03/12/21 @ 14:59 by NIVIA Kennedy) Abdominal pain Abdominal pain, chronic, generalized Asthma Behcet's disease Cervicalgia Chronic pain syndrome Common variable immunodeficiency Crohn's disease Gastroparesis Low back pain Pyloric stenosis Spondylolisthesis, lumbar region Spondylosis of lumbar region without myelopathy or radiculopathy Spontaneous pneumothorax Surgical History (Updated 03/12/21 @ 14:34 by NIVIA Kennedy) History of hernia surgery Social History Social History Housing: Condominium Do you presently have visiting nurse or other home services: No Alcohol intake: never Patient Tobacco Use Status: Never used Tobacco Use of substances other than those prescribed or required for medical reasons: No Advance Directives: Yes Advance Directives Information Provided: Yes Advance Directives on File: No Patient : No service: No Current occupational status: unemployed
[2021-03-12] MEDS: diphenhydrAMINE HCL 50 MG/ML VIAL 25 MG IVPUSH (08:24)
[2021-03-12] MEDS: ondansetron HCL 4 MG/2 ML VIAL IVPUSH ×3 (08:24→17:54)
[2021-03-12] MEDS: HYDROmorphone HCl 1 MG/ML SYRINGE IVPUSH ×5 (08:24→21:46)
[2021-03-12 08:49] LABS: Anion Gap 16 (12-20); Blood Urea Nitrogen 16 mg/dL (9-16); Carbon Dioxide 21 mmol/L (22-29); Chloride 108 mmol/L (96-108); Creatinine Clr Calc Pharmacy 81.7; Estimated Glomerular Filt Rate > 60; Glucose Random 124 mg/dL (60-115); Potassium 3.7 mmol/L (3.3-5.1); Sodium 141 mmol/L (135-145)
[2021-03-12] MEDS: 0.9 % Sodium Chloride 1,000 ML 999 ML IVCONT ×2 (08:56→12:47)
--- NOTE | 2021-03-12 08:57 | PC.NURSE ---
pt has r side posterior portacath, patent, blood labs obtained and sent, medicated per emar, awaiting ct scan.
[2021-03-12 09:04] LABS: Lipase 28 U/L (8-78)
--- NOTE | 2021-03-12 09:34 | PHA.MEDREC ---
Pharmacy Consult ? Medication Reconciliation Pharmacy has completed the medication reconciliation. Patient was able to reported all her medications. Patient seem to be a good historian even though she was in a ton of pain. Yaquelin Luther, SadeD
--- NOTE | 2021-03-12 10:30 | PC.NURSE ---
power port obtained for ct w contrast, pt vazquez changed to power port access w/o issue, running patent at this time, medicated further for pain, awaiting ct scan.
[2021-03-12 11:00] LABS: COVID-19 Test Negative (Negative)
[2021-03-12] MEDS: iohexoL 350 MG/ML 100 ML INFUS..BTL IV (11:17)
[2021-03-12] MEDS: HYDROmorphone HCl 2 MG/ML VIAL IVPUSH (12:47)
--- NOTE | 2021-03-12 14:22 | PM.IMHP ---
History of Present Illness Date of Service: 03/12/21 Attending physician on admission: Elieser Houser Chief Complaint: abdominal pain This is a 40-year-old female with history Behcet's syndrome, gastroparesis, h/o DVT/PE on Eliquis, chronic back pain on chronic opiates who presents to the ED with abdominal pain. She reports acute onset of lower abdominal pain starting at around 03:00 this morning. The pain radiates around the left side of her abdomen. She has waves of severe sharp pain. She denies any associated nausea or vomiting at this time, but was having nausea earlier. She has had intermittent red blood streaks mixed in with her stool over the past few weeks. She had diarrhea this morning around [address] of the abdomen was done and showed moderate stool burden as well as mild bowel wall thickening involving the transverse and proximal descending colon which may be related to early or mild colitis. Lab work reveals mild leukocytosis with a white count of 11.9 and is otherwise unremarkable. She received multiple doses of IV Dilaudid but continued to complain of significant abdominal pain and therefore the decision was made to admit her to the hospital overnight for observation for intractable pain. Review of Systems Review of Systems: Yes all other systems are reviewed and are negative Constitutional: Constitutional: Denies chills and Denies fever(s) Cardiovascular: Cardiovascular: Denies chest pain Respiratory: Respiratory: Denies cough Gastrointestinal: Gastrointestinal: Reports abdominal pain COUNTS INCLUDE 234 BEDS AT THE [facility] Medical History (Updated 03/12/21 @ 14:59 by NIVIA Kennedy) Abdominal pain Abdominal pain, chronic, generalized Asthma Behcet's disease Cervicalgia Chronic pain syndrome Common variable immunodeficiency Crohn's disease Gastroparesis Low back pain Pyloric stenosis Spondylolisthesis, lumbar region Spondylosis of lumbar region without myelopathy or radiculopathy Spontaneous pneumothorax Functional capacity: independent ambulation Pertinent family history: Father - Hairy Cell leukemia Mother - HTN Surgical History (Updated 03/12/21 @ 14:34 by NIVIA Kennedy) History of hernia surgery Social History [facility] Do you presently have visiting nurse or other home services: No Alcohol intake: never Patient Tobacco Use Status: Never used Tobacco Use of substances other than those prescribed or required for medical reasons: No Advance Directives: Yes Advance Directives Information Provided: Yes Advance Directives on File: No Patient : No service: No Current occupational status: unemployed Meds Allergies Allergy/AdvReac Type Severity Reaction Status Date / Time ciprofloxacin [Cipro] Allergy Unknown unknown Verified 02/11/21 08:49 levofloxacin [Levaquin] Allergy Unknown unknown Verified 02/11/21 08:49 metoclopramide [Reglan] Allergy Unknown unknown Verified 02/11/21 08:49 ondansetron [Zofran] Allergy Unknown unknown Verified 02/11/21 08:49 penicillin V Allergy Unknown unknown Verified 02/11/21 08:49 Sulfa (Sulfonamide Allergy Unknown unknown Verified 02/11/21 08:49 Antibiotics) prochlorperazine Allergy unknown Verified 02/11/21 08:49 [From Compazine] thalidomide [From Thalomid] Allergy unknown Verified 02/11/21 08:49 Active Medications: Current Medications Acetaminophen (Acetaminophen 325 Mg Tablet) 650 mg PO Q6H PRN PRN Reason: Pain, Mild (Pain Scale 1-3) Albuterol Sulfate (Albuterol Sulfate 90 Mcg 8 Gm Inhaler) 2 puff INHALE Q4H PRN PRN Reason: Wheezing Apixaban (Apixaban 5 Mg Tablet) 5 mg PO BID ANNA Diphenhydramine HCl (Diphenhydramine Hcl 50 Mg/Ml Vial) 25 mg IV QID PRN PRN Reason: Nausea Docusate Sodium (Docusate Sodium 100 Mg Capsule) 100 mg PO DAILY PRN PRN Reason: Constipation Fluticasone/Vilanterol (Fluticasone/Vilanterol 200/25 Blst.W.Dev) 1 puff INHALE RDAILY ANNA Non-Formulary Medication (Levetiracetam) 7 ml PO BID ANNA Non-Formulary Medication (Umeclidinium [Incruse Ellipta]) 1 inhalation INHALE DAILY ANNA Ondansetron HCl (Ondansetron Hcl 4 Mg/2 Ml Vial) 4 mg IVPUSH Q8H PRN PRN Reason: Nausea and Vomiting Pharmacy Consult (Consult Rx Perform Med Rec) 1 each MISCELLANE ONCE PRN PRN Reason: Consult order Promethazine HCl (Promethazine Hcl 25 Mg Tablet) 25 mg PO QID PRN PRN Reason: nausea Sodium Chloride (0.9 % Sodium Chloride Flush 3 Ml Syringe) 3 ml IVFLUSH [facility] Tizanidine HCl (Tizanidine Hcl 4 Mg Tablet) 4 mg PO TID PRN PRN Reason: Muscle Spasm Home Medications Medication Instructions Recorded Confirmed Last Taken Type promethazine 25 mg tablet 25 mg PO QID PRN 04/02/20 03/12/21 03/11/21 History tizanidine 4 mg tablet 4 mg PO TID PRN 04/02/20 03/12/21 03/11/21 History apixaban 5 mg tablet (Eliquis) 5 mg PO BID 09/22/20 03/12/21 03/11/21 History albuterol sulfate 90 mcg/actuation 2 puff INHALATION Q4H PRN 12/12/20 03/12/21 03/11/21 History aerosol inhaler fluticasone furoate 200 1 inh INHALATION Q24H 12/12/20 03/12/21 03/11/21 History mcg-vilanterol 25 mcg/dose inhalation powder (Breo Ellipta) levetiracetam 100 mg/mL oral 7 ml PO BID 12/12/20 03/12/21 03/11/21 History solution umeclidinium 62.5 mcg/actuation 1 inh INHALATION DAILY 12/12/20 03/12/21 03/11/21 History blister powder for inhalation (Incruse Ellipta) acetaminophen 325 mg tablet 650 mg PO Q4H PRN 03/12/21 03/12/21 Unknown History diphenhydramine HCl 50 mg/mL 25 mg IV QID PRN 03/12/21 03/12/21 03/11/21 History injection solution ondansetron HCl (PF) 4 mg/2 mL 4 mg IV TID PRN 03/12/21 03/12/21 03/11/21 History injection solution Physical Exam Vital Signs and Narrative: Vital Signs: Last Vital Signs Temp 97.8 F 03/12/21 07:04 Pulse 76 03/12/21 07:04 Resp 18 03/12/21 07:04 BP 126/100 H 03/12/21 07:04 Pulse Ox 96 03/12/21 07:04 Body Mass Index 25.9 Const: General: alert and awake Nutritional Appearance: well nourished Orientation/consciousness: patient oriented x3 HENMT: Head: Yes normocephalic and Yes atraumatic Eyes: Sclerae: sclerae normal Chest: Chest palpation & inspection: normal inspection of the chest Resp: Effort & Inspection: normal respiratory effort and no respiratory distress Cardio: Rate: regular rate Rhythm: regular rhythm GI: Other: abdomen soft, non-distended; +bowel sounds, mild tenderness lower abdomen;multiple abdominal scars Neuro: General: patient oriented x3 Cranial nerves: Yes CN's II-XII intact bilaterally and Yes Bilaterally intact EOM present Extrem: Other: no leg edema Results Labs CBC and Chem 7: 03/12/21 07:16 03/12/21 07:16 Labs: Laboratory Results - last 24 hr 03/12/21 03/12/21 03/12/21 07:08 07:16 07:16 MCV 86.8 MCH 29.7 MCHC 34.2 RDW 13.1 Plt Count 204 MPV 10.6 Absolute Nucleated RBC 0.000 Nucleated RBC % (auto) 0.0 Anion Gap 16 Estim Creat Clear Calc 81.7 Estimated GFR > 60 POC Glucose 120 H Random Glucose 124 H Calcium 9.0 Lipase 28 COVID-19 ([facility]) COVID-19 Clin Com 03/12/21 10:37 MCV MCH MCHC RDW Plt Count MPV Absolute Nucleated RBC Nucleated RBC % (auto) Anion Gap Estim Creat Clear Calc Estimated GFR POC Glucose Random Glucose Calcium Lipase COVID-19 ([facility]) Negative COVID-19 Clin Com See Note Imaging Radiologist's Impressions: Impressions Abdomen/Pelvis CT 03/12/21 09:32 IMPRESSION: No evidence of terminal ileitis. No evidence of bowel obstruction. Mild bowel wall thickening and minimal pericolonic stranding involving the transverse and proximal descending colon which may be related to early or mild colitis. Moderate stool burden. Anterior abdominal wall hernias as described. Assessment and Plan (1) Abdominal pain: Qualifiers: Abdominal location: lower abdomen, unspecified Qualified Code(s): R10.30 - Lower abdominal pain, unspecified Status: Acute This is a 40-year-old female with a past medical history of Behcet's disease, possible Crohn's disease, gastroparesis, pyloric stenosis s/p dilaton, chronic pain syndrome on opiates, degenerative spine disease, chronic low back pain, history of spontaneous pneumothorax status post pleurodesis, history of DVT/PE on Eliquis, asthma on chronic TPN who presents to the ED with abdominal pain found to have CT concerning for mild colitis abdominal pain h/o chronic pain. sees pain management clinic. home narcotics not controlling current abdominal pain. received 5mg IV dilaudid in ED without effective pain control CT scan with ?mild colitis and moderate stool burden -IV pain control -IV steroids per GI rec, No abx at this time. -GI consult constipation bowel regimen h/o gastroparesis continue home dose of phenergan h/o chronic pain home dilaudid will be held pain management with IV dilaudid h/o PE/DVT continue Eliquis asthma no exacerbation continue home inhalers h/o seizures continue keppra dvt ppx code status - full code attending: dr. houser Quality Stroke Does the patient have a stroke diagnosis?: No VTE Prior VTE?: Yes VTE Risk Level:: Medical - moderate - high VTE Device Contraindication: Treatment Not Indicated VTE Drug Contraindication: N/A - Med Ordered
[2021-03-12 14:33] VITALS: BP 125/64; PULSE 80; RESP 16; TEMP 36.6; O2SAT 98
--- NOTE | 2021-03-12 15:36 | MHC.CLN ---
RE: CONSULT RECOMMEND TPN D15 AA5 AT 35ML/HR TO PROVIDE 596KCALS, 42G PROTEIN DISCUSSED WITH PHARMACY REPLETE LYTES NEEDED
[2021-03-12] MEDS: methylPREDNISolone Sod Succ 40 MG/ML VIAL 20 MG IVPUSH ×2 (15:48→21:48)
[2021-03-12] MEDS: Promethazine HCL 25 MG TABLET PO (15:48)
[2021-03-12 16:00] VITALS: BP 144/64; PULSE 75; RESP 20; TEMP 36.8; O2SAT 95
[2021-03-12] MEDS: diphenhydrAMINE HCL 50 MG/ML VIAL 25 MG IV (17:54)
--- NOTE | 2021-03-12 21:18 | MHC.CM.PN ---
CM met with admitted patient with bed assignment 458. NAVYA reviewed and signed per protocol 03/12/2021@2100. Pt lives with 17 year old son. Has services through [facility]. Has port for TPN. Daily TPN for 12 hours/day. States TPN is through [facility].. Fully vaccinated with Pfizer. Pt states she has a HCP at home. Copy requested. HCP/friend Cassie Holloway ([phone]). D/C plan is home with continued existing services. Transportation is by friend or [facility]. CM to follow for d/c needs.
--- NOTE | 2021-03-12 21:18 | PC.NURSE ---
pt to floor via wc in stable condition w/ all belongings
[2021-03-12] MEDS: Apixaban 5 MG TABLET PO (21:47)
[2021-03-12] MEDS: Sennosides/Docusate Sodium TABLET 1 TAB PO (21:47)
[2021-03-12] MEDS: levETIRAcetam Oral Soln 500 MG/5 ML 700 MG PO (21:48)
[2021-03-12] MEDS: 0.9 % Sodium Chloride Flush 3 ML SYRINGE IVFLUSH (21:48)
[2021-03-12 21:49] VITALS: BP 122/69; PULSE 72; RESP 19; TEMP 37.4; O2SAT 96
[2021-03-12 22:01] VITALS: BMI 25.2
[2021-03-12 23:22] VITALS: BP 135/61; PULSE 80; RESP 18; TEMP 36.6; O2SAT 96
[2021-03-13] VITALS (9 sets, daily range): BP systolic 88–113; BP diastolic 51–60; PULSE 64–77; RESP 18–20; TEMP 36.1–36.5; O2SAT 95–99; BMI 25.8
[2021-03-13] MEDS: HYDROmorphone HCl 1 MG/ML SYRINGE IVPUSH ×6 (01:50→22:48)
[2021-03-13] MEDS: diphenhydrAMINE HCL 50 MG/ML VIAL 25 MG IV ×4 (01:55→22:48)
[2021-03-13] MEDS: ondansetron HCL 4 MG/2 ML VIAL IVPUSH ×3 (01:55→19:20)
[2021-03-13] MEDS: TiZANidine HCL 4 MG TABLET PO ×2 (03:04→22:24)
[2021-03-13] MEDS: methylPREDNISolone Sod Succ 40 MG/ML VIAL 20 MG IVPUSH ×3 (06:10→22:49)
[2021-03-13] MEDS: Fluticasone/Vilanterol 200/25 BLST.W.DEV 1 PUFF INHALE (07:53)
[2021-03-13 08:30] LABS: Hematocrit 34.7 % (37-47); Hemoglobin 11.9 g/dl (12.0-16.0); Mean Corpuscular HGB Conc 34.3 g/dl (31.0-35.0); Mean Corpuscular Hemoglobin 30.1 pg (27.0-33.0); Mean Corpuscular Volume 87.6 fL (80-98); Mean Platelet Volume 10.6 fL (9.4-12.3); Platelet Count 178 X10*3/uL (160-400); Red Blood Count 3.96 X10*6/uL (4.20-5.50); Red Cell Distribution Width 13.2 % (11.0-16.0); White Blood Count 8.8 X10*3/uL (4.8-10.8)
[2021-03-13 08:44] LABS: Anion Gap 14 (12-20); Blood Urea Nitrogen 13 mg/dL (9-16); Calcium 8.8 mg/dL (8.4-10.2); Carbon Dioxide 24 mmol/L (22-29); Chloride 105 mmol/L (96-108); Estimated Glomerular Filt Rate > 60; Glucose Random 109 mg/dL (60-115); Potassium 4.2 mmol/L (3.3-5.1); Sodium 139 mmol/L (135-145)
[2021-03-13] MEDS: Lactated Ringers 1,000 ML 100 ML IVCONT ×2 (08:55→12:27)
[2021-03-13] MEDS: Apixaban 5 MG TABLET PO ×2 (08:55→22:19)
[2021-03-13] MEDS: levETIRAcetam Oral Soln 500 MG/5 ML 700 MG PO ×2 (08:55→22:19)
--- NOTE | 2021-03-13 09:46 | MHC.CLN ---
NUTRITION CONSULT/TPN RD RECOMMENDS TPN DAY 1 (03/13/21) D15AA5 AT 35 ML/HOUR. PROVIDES 598 KCALS, 42 G PROTEIN. TPN DAY 2 (03/14/21) AT GOAL RATE D15AA5 AT 55 ML/HOUR. ADD LIPIDS, 35 ML OF 20% LIPIDS (840 KCAL). DAY 2 GOAL PROVIDES 1777 KCAL (27.8 KCAL/KG) AND 66 G PROTEIN (1.03 G/KG) REPLETE LYTES NEEDED AND MONITOR TRIGLYCERIDES. DISCUSSED RECOMMENDATION WITH PHARMACY.
[2021-03-13 10:02] LABS: Magnesium 2.3 mg/dL (1.6-2.6); Phosphorus 4.7 mg/dL (2.7-4.5)
[2021-03-13] MEDS: HYDROmorphone HCl 2 MG TABLET 1 MG PO (10:39)
[2021-03-13] MEDS: 0.9 % Sodium Chloride 1,000 ML 999 ML IVCONT (10:40)
--- NOTE | 2021-03-13 11:50 | P.PNIM_ITS ---
Subjective Subjective Date of Service: 03/13/21 Interval History: Seen and examined this morning Follow-up for abdominal pain Still reporting considerable abdominal pain, some nausea. No vomiting, no diarrhea, no bloody stools BP low this morning, no dizziness Review of Systems Review of Systems: Yes all other systems are reviewed and are negative Constitutional Constitutional: Denies chills and Denies fever(s) Cardiovascular Cardiovascular: Denies chest pain Respiratory Respiratory: Denies cough Gastrointestinal Gastrointestinal: Reports abdominal pain, Denies hematochezia, Denies diarrhea, Reports nausea and Denies vomiting Physical Exam Vital Signs: Vital Signs: Last Vital Signs Temp 97.7 F 03/13/21 08:00 Pulse 66 03/13/21 08:00 Resp 18 03/13/21 08:00 BP 94/58 L 03/13/21 10:05 Pulse Ox 97 03/13/21 08:00 Body Mass Index 25.8 Const: Nutritional Appearance: well nourished Orientation/consciousness: patient oriented x3 HENMT: Head: Yes normocephalic and Yes atraumatic Eyes: Sclerae: sclerae normal Chest: Chest palpation & inspection: normal inspection of the chest Resp: Effort & Inspection: normal respiratory effort and no respiratory distress Cardio: Rate: regular rate Rhythm: regular rhythm GI: Inspection: No distended Palpation (GI): Soft to palpation, Tenderness to palpation present (GI) (mild TTP mid abdomen) and no guarding Neuro: General: patient oriented x3 Cranial nerves: Yes CN's II-XII intact bilaterally and Yes Bilaterally intact EOM present Objective Data Active Medications Acetaminophen (Acetaminophen 325 Mg Tablet) 650 mg PO Q6H PRN PRN Reason: Pain, Mild (Pain Scale 1-3) Albuterol Sulfate (Albuterol Sulfate 90 Mcg 8 Gm Inhaler) 2 puff INHALE Q4H PRN PRN Reason: Wheezing Apixaban (Apixaban 5 Mg Tablet) 5 mg PO BID ANNA Last Admin: 03/13/21 08:55 Dose: 5 mg Documented by: PRASANTH Diphenhydramine HCl (Diphenhydramine Hcl 50 Mg/Ml Vial) 25 mg IV QID PRN PRN Reason: Nausea Last Admin: 03/13/21 10:43 Dose: 25 mg Documented by: PRASANTH Docusate Sodium (Docusate Sodium 100 Mg Capsule) 100 mg PO DAILY PRN PRN Reason: Constipation Fluticasone/Vilanterol (Fluticasone/Vilanterol 200/25 Blst.W.Dev) 1 puff INHALE RDAILY [facility] Last Admin: 03/13/21 07:53 Dose: 1 puff Documented by: JOSHSDIRK Hydromorphone HCl (Hydromorphone Hcl 1 Mg/Ml Syringe) 1 mg IVPUSH Q3H PRN; Protocol PRN Reason: Pain, Severe (Pain Scale 7-10) Lactated Ringer's (Lr) 1,000 mls @ 100 mls/hr IVCONT .Q10H [facility] Last Admin: 03/13/21 08:55 Dose: 100 mls/hr Documented by: PRASANTH Multivitamins 10 ml/ Trace Metals 1 ml/ Amino Acids/Electrolytes 840 mls @ 35 mls/hr IV DAILY@1800 [facility] Stop: 03/14/21 17:59 Levetiracetam (Levetiracetam Oral Soln 500 Mg/5 Ml) 700 mg PO BID [facility] Last Admin: 03/13/21 08:55 Dose: 700 mg Documented by: PRASANTH Methylprednisolone Sodium Succinate (Methylprednisolone Sod Succ 40 Mg/Ml Vial) 20 mg IVPUSH Q8H [facility] Last Admin: 03/13/21 06:10 Dose: 20 mg Documented by: CINDY Ondansetron HCl (Ondansetron Hcl 4 Mg/2 Ml Vial) 4 mg IVPUSH Q8H PRN PRN Reason: Nausea and Vomiting Last Admin: 03/13/21 10:39 Dose: 4 mg Documented by: PRASANTH Pharmacy Consult (Consult Rx Perform Med Rec) 1 each MISCELLANE ONCE PRN PRN Reason: Consult order Promethazine HCl (Promethazine Hcl 25 Mg Tablet) 25 mg PO QID PRN PRN Reason: nausea Last Admin: 03/12/21 15:48 Dose: 25 mg Documented by: CINTIA Senna/Docusate Sodium (Sennosides/Docusate Sodium Tablet) 1 tab PO BEDTIME [facility] Last Admin: 03/12/21 21:47 Dose: 1 tab Documented by: CINDY Sodium Chloride (0.9 % Sodium Chloride Flush 3 Ml Syringe) 3 ml IVFLUSH QSHIFT [facility] Last Admin: 03/13/21 09:12 Dose: Not Given Documented by: PRASANTH Non-Admin Reason: IV Running Tiotropium [place] (Tiotropium [place] 18 Mcg Cap.W.Dev) 1 puff INHALE RDAILY [facility] Tizanidine HCl (Tizanidine Hcl 4 Mg Tablet) 4 mg PO TID PRN PRN Reason: Muscle Spasm Last Admin: 03/13/21 03:04 Dose: 4 mg Documented by: CINDY Labs CBC & Chem 7: 03/13/21 08:05 03/13/21 08:05 Labs: Laboratory Results - last 24 hr 03/13/21 03/13/21 08:05 08:05 MCV 87.6 MCH 30.1 MCHC 34.3 RDW 13.2 Plt Count 178 MPV 10.6 Absolute Nucleated RBC 0.000 Nucleated RBC % (auto) 0.0 Anion Gap 14 Estim Creat Clear Calc 91.0 Estimated GFR > 60 Random Glucose 109 Calcium 8.8 Phosphorus 4.7 H Magnesium 2.3 Assessment and Plan (1) Abdominal pain: Status: Acute Assessment and Plan: This is a 40-year-old female with a past medical history of Behcet's disease, possible Crohn's disease, gastroparesis, pyloric stenosis s/p dilaton, chronic pain syndrome on opiates, degenerative spine disease, chronic low back pain, history of spontaneous pneumothorax status post pleurodesis, history of DVT/PE on Eliquis, asthma on chronic TPN who presents to the ED with abdominal pain found to have CT concerning for mild colitis abdominal pain h/o chronic pain. sees pain management clinic. home narcotics not controlling current abdominal pain. received 5mg IV dilaudid in ED without effective pain control CT scan with ?mild colitis and moderate stool burden -IV pain management -continue IV steroids per GI rec, No abx at this time -GI consult pending constipation bowel regimen nutrition seen by nutrition -continue home TPN h/o gastroparesis continue home dose of phenergan h/o chronic pain home dilaudid will be held pain management with IV dilaudid h/o PE/DVT continue Eliquis asthma no exacerbation continue home inhalers h/o seizures continue keppra dvt ppx code status - full code attending: dr. houser Quality Stroke Does the patient have a stroke diagnosis?: No VTE Prior VTE?: Yes VTE Risk Level:: Medical - moderate - high VTE Device Contraindication: Treatment Not Indicated VTE Drug Contraindication: N/A - Med Ordered
--- NOTE | 2021-03-13 12:57 | MHC.CM.PN ---
per rounds pt yanni to be dcd mon on tpn with resumption of coram pt lives at tho me with her so n
[2021-03-13] MEDS: 0.9 % Sodium Chloride Flush 3 ML SYRINGE IVFLUSH ×2 (15:52→22:49)
--- NOTE | 2021-03-13 19:46 | CONS_ITS ---
DATE OF SERVICE: 03/13/2021 REFERRING PHYSICIAN: NIVIA Medrano REASON FOR CONSULTATION: Abdominal pain and abnormal CT with history of Crohn disease. HISTORY OF PRESENT ILLNESS: The patient is a 40-year-old woman, who was admitted to the hospital after presenting to the emergency room yesterday with complaints of abdominal pain. She states the pain began about 3 in the morning and was severe over the lower abdomen. It became associated with nausea, vomiting, and she developed some diarrhea after presenting to the emergency room. She denies any fevers, but did state she felt chilled. She has a history of Crohn disease, although currently is not on any treatment. She believes she was last treated with prednisone about a year ago. She has been on other treatment modalities, but these were apparently stopped because of problems with diarrhea. She believes her Crohn disease involves the colon. She is followed by [facility]. She thinks her last colonoscopy was about 2 years ago. PAST MEDICAL HISTORY: 1. Crohn disease. 2. Behcet's syndrome. 3. Gastroparesis. 4. DVT/PE. 5. Back pain. 6. Chronic pain, treated with long-term opiates. 7. Common variable immunodeficiency. 8. Pyloric stenosis. 9. Spontaneous pneumothorax. CURRENT MEDICATIONS: Her current medication list is reviewed in the chart. ALLERGIES: THERE ARE MULTIPLE MEDICATION ALLERGIES THAT ARE REVIEWED. FAMILY HISTORY: This is reviewed with the patient and is negative for inflammatory bowel disease. SOCIAL HISTORY: She denies tobacco, alcohol, and substance abuse. REVIEW OF SYSTEMS: SKIN: No pruritus. HEENT: Negative. CARDIOPULMONARY: No shortness of breath or chest pain. GASTROINTESTINAL: As above. She has also been treated with TPN because of recurrent problems, tolerating oral or tube feedings. GENITOURINARY: Negative. NEUROPSYCHIATRIC: Negative. PHYSICAL EXAMINATION: GENERAL: Shows a pleasant female, lying in bed. VITAL SIGNS: Reviewed in the electronic medical record and are stable. SKIN: Anicteric. HEENT: Shows no scleral icterus. NECK: Without lymphadenopathy or thyromegaly. LUNGS: Clear. HEART: Shows regular rate and rhythm. S1, S2. No murmur. ABDOMEN: Soft without focal masses or tenderness. Bowel sounds are present. No organomegaly is noted. EXTREMITIES: Without edema. LABORATORY DATA: Shows a white blood cell count of 8.8 today, down from 11.9 on admission. She has been afebrile. CT scanning was obtained, which is reviewed. This is interpreted as showing mild bowel wall thickening and minimal pericolonic stranding involving the transverse and proximal descending colon. IMPRESSION: Abdominal pain with Crohn disease and abnormal CT scan as above. She has a history of Crohn disease by report and is currently off therapy, but based on her CT scan findings in her abdominal pain, steroids would likely be beneficial. I would recommend continuing these as you are doing. I do not think she needs antibiotics at this time. She has a significant component of abdominal pain, but appears quite comfortable, which is somewhat of a conflict in terms of assessing her. She may benefit from consultation for pain management with Dr. Pedroza. Thanks for asking me to see her. I will follow her in the hospital with you. MD OUMOU Mathews/SHAYNA / [phone]
[2021-03-13 20:17] LABS: Leukocytes Stool Qualitative NEGATIVE (NEGATIVE)
[2021-03-13] MEDS: Sennosides/Docusate Sodium TABLET 1 TAB PO (22:19)
[2021-03-14] MEDS: HYDROmorphone HCl 1 MG/ML SYRINGE IVPUSH ×3 (02:23→09:30)
[2021-03-14] MEDS: methylPREDNISolone Sod Succ 40 MG/ML VIAL 20 MG IVPUSH ×3 (06:19→22:56)
[2021-03-14 07:23] LABS: Anion Gap 11 (12-20); Blood Urea Nitrogen 19 mg/dL (9-16); Calcium 8.7 mg/dL (8.4-10.2); Carbon Dioxide 26 mmol/L (22-29); Chloride 104 mmol/L (96-108); Estimated Glomerular Filt Rate > 60; Glucose Random 103 mg/dL (60-115); Potassium 4.2 mmol/L (3.3-5.1); Sodium 137 mmol/L (135-145)
[2021-03-14 07:30] VITALS: BP 90/52; PULSE 88; RESP 18; TEMP 36.6; O2SAT 96
[2021-03-14 07:31] LABS: Hematocrit 33.9 % (37-47); Hemoglobin 11.4 g/dl (12.0-16.0); Mean Corpuscular HGB Conc 33.6 g/dl (31.0-35.0); Mean Corpuscular Hemoglobin 29.8 pg (27.0-33.0); Mean Corpuscular Volume 88.5 fL (80-98); Mean Platelet Volume 10.9 fL (9.4-12.3); Platelet Count 181 X10*3/uL (160-400); Red Blood Count 3.83 X10*6/uL (4.20-5.50); Red Cell Distribution Width 13.2 % (11.0-16.0); White Blood Count 7.5 X10*3/uL (4.8-10.8)
[2021-03-14] MEDS: Fluticasone/Vilanterol 200/25 BLST.W.DEV 1 PUFF INHALE (07:58)
[2021-03-14 07:59] VITALS: PULSE 78; O2SAT 98
[2021-03-14 08:58] LABS: Magnesium 2.4 mg/dL (1.6-2.6); Phosphorus 3.8 mg/dL (2.7-4.5); Triglycerides 74 mg/dL
[2021-03-14] MEDS: diphenhydrAMINE HCL 50 MG/ML VIAL 25 MG IV ×2 (09:22→16:24)
[2021-03-14] MEDS: Apixaban 5 MG TABLET PO ×2 (09:22→22:11)
[2021-03-14] MEDS: levETIRAcetam Oral Soln 500 MG/5 ML 700 MG PO ×2 (09:22→22:11)
[2021-03-14] MEDS: ondansetron HCL 4 MG/2 ML VIAL IVPUSH ×2 (09:22→16:23)
[2021-03-14] MEDS: 0.9 % Sodium Chloride Flush 3 ML SYRINGE IVFLUSH ×2 (09:25→16:25)
--- NOTE | 2021-03-14 10:11 | HO.PM.IMPN ---
Subjective Subjective Date of Service: 03/14/21 Interval History: seen and examined this morning follow up for abdominal pain abdominal pain a little better, having nausea no overnight events Review of Systems Review of Systems: Yes all other systems are reviewed and are negative Constitutional Constitutional: Denies chills and Denies fever(s) Cardiovascular Cardiovascular: Denies chest pain Respiratory Respiratory: Denies cough Gastrointestinal Gastrointestinal: Reports nausea Physical Exam Vital Signs: Vital Signs: Last Vital Signs Temp 98 F 03/14/21 07:30 Pulse 88 03/14/21 07:30 Resp 18 03/14/21 07:30 BP 90/52 L 03/14/21 07:30 Pulse Ox 96 03/14/21 07:30 Body Mass Index 25.8 Const: Other: appears more comfortable this morning General: alert and awake Nutritional Appearance: well nourished Orientation/consciousness: patient oriented x3 HENMT: Head: Yes normocephalic and Yes atraumatic Eyes: Sclerae: sclerae normal Chest: Chest palpation & inspection: normal inspection of the chest Resp: Effort & Inspection: normal respiratory effort and no respiratory distress Cardio: Rate: regular rate Rhythm: regular rhythm GI: Other: abdomen soft, non-distended; +bowel sounds, mild tenderness lower abdomen;multiple abdominal scars Inspection: No distended Palpation (GI): Soft to palpation, Tenderness to palpation present (GI) (mild TTP mid abdomen) and no guarding Neuro: General: patient oriented x3 Cranial nerves: Yes CN's II-XII intact bilaterally and Yes Bilaterally intact EOM present Extrem: Other: no leg edema Objective Data Active Medications Acetaminophen (Acetaminophen 325 Mg Tablet) 650 mg PO Q6H PRN PRN Reason: Pain, Mild (Pain Scale 1-3) Albuterol Sulfate (Albuterol Sulfate 90 Mcg 8 Gm Inhaler) 2 puff INHALE Q4H PRN PRN Reason: Wheezing Apixaban (Apixaban 5 Mg Tablet) 5 mg PO BID ANNA Last Admin: 03/14/21 09:22 Dose: 5 mg Documented by: TATY Diphenhydramine HCl (Diphenhydramine Hcl 50 Mg/Ml Vial) 25 mg IV QID PRN PRN Reason: Nausea Last Admin: 03/14/21 09:22 Dose: 25 mg Documented by: TATY Docusate Sodium (Docusate Sodium 100 Mg Capsule) 100 mg PO DAILY PRN PRN Reason: Constipation Fluticasone/Vilanterol (Fluticasone/Vilanterol 200/25 Blst.W.Dev) 1 puff INHALE RDAILY [facility] Last Admin: 03/14/21 07:58 Dose: 1 puff Documented by: ALURENT Hydromorphone HCl (Hydromorphone Hcl 1 Mg/Ml Syringe) 1 mg IVPUSH Q3H PRN; Protocol PRN Reason: Pain, Severe (Pain Scale 7-10) Last Admin: 03/14/21 09:30 Dose: 1 mg Documented by: TATY Lactated Ringer's (Lr) 1,000 mls @ 100 mls/hr IVCONT .Q10H [facility] Last Infusion: 03/14/21 06:02 Dose: 100 mls/hr Documented by: TRANG Multivitamins 10 ml/ Trace Metals 1 ml/ Amino Acids/Electrolytes 840 mls @ 35 mls/hr IV DAILY@1800 ANNA Stop: 03/14/21 17:59 Last Admin: 03/13/21 19:20 Dose: 35 mls/hr Documented by: PRASANTH Levetiracetam (Levetiracetam Oral Soln 500 Mg/5 Ml) 700 mg PO BID [facility] Last Admin: 03/14/21 09:22 Dose: 700 mg Documented by: TATY Methylprednisolone Sodium Succinate (Methylprednisolone Sod Succ 40 Mg/Ml Vial) 20 mg IVPUSH Q8H [facility] Last Admin: 03/14/21 06:19 Dose: 20 mg Documented by: TRANG Ondansetron HCl (Ondansetron Hcl 4 Mg/2 Ml Vial) 4 mg IVPUSH Q8H PRN PRN Reason: Nausea and Vomiting Last Admin: 03/14/21 09:22 Dose: 4 mg Documented by: TATY Pharmacy Consult (Consult Rx Perform Med Rec) 1 each MISCELLANE ONCE PRN PRN Reason: Consult order Promethazine HCl (Promethazine Hcl 25 Mg Tablet) 25 mg PO QID PRN PRN Reason: nausea Last Admin: 03/12/21 15:48 Dose: 25 mg Documented by: CINTIA Senna/Docusate Sodium (Sennosides/Docusate Sodium Tablet) 1 tab PO BEDTIME [facility] Last Admin: 03/13/21 22:19 Dose: 1 tab Documented by: TRANG Sodium Chloride (0.9 % Sodium Chloride Flush 3 Ml Syringe) 3 ml IVFLUSH QSHIFT [facility] Last Admin: 03/14/21 09:25 Dose: 3 ml Documented by: TATY Tiotropium [place] (Tiotropium [place] 18 Mcg Cap.W.Dev) 1 puff INHALE RDAILY [facility] Last Admin: 03/14/21 07:58 Dose: 1 puff Documented by: LAURENT Tizanidine HCl (Tizanidine Hcl 4 Mg Tablet) 4 mg PO TID PRN PRN Reason: Muscle Spasm Last Admin: 03/13/21 22:24 Dose: 4 mg Documented by: TRANG Labs CBC & Chem 7: 03/14/21 06:39 03/14/21 06:39 Labs: Laboratory Results - last 24 hr 03/13/21 03/14/21 03/14/21 19:35 06:39 06:39 MCV 88.5 MCH 29.8 MCHC 33.6 RDW 13.2 Plt Count 181 MPV 10.9 Absolute Nucleated RBC 0.000 Nucleated RBC % (auto) 0.0 Anion Gap 11 L Estim Creat Clear Calc 92.0 Estimated GFR > 60 Random Glucose 103 Calcium 8.7 Phosphorus 3.8 Magnesium 2.4 Triglycerides 74 Stool Leukocytes, Qual NEGATIVE Microbiology Microbiology Results: Microbiology 03/13/21 19:35 Stool Culture - Preliminary Stool Normal so far. Assessment and Plan (1) Abdominal pain: Status: Acute (2) Chronic pain: Status: Acute Assessment and Plan: This is a 40-year-old female with a past medical history of Behcet's disease, possible Crohn's disease, gastroparesis, pyloric stenosis s/p dilaton, chronic pain syndrome on opiates, degenerative spine disease, chronic low back pain, history of spontaneous pneumothorax status post pleurodesis, history of DVT/PE on Eliquis, asthma on chronic TPN who presents to the ED with abdominal pain found to have CT concerning for mild colitis abdominal pain h/o chronic pain. sees pain management clinic. home narcotics not controlling current abdominal pain. CT scan with ?mild colitis and moderate stool burden. possibly r/t crohns flare -IV pain management -continue IV steroids -No abx at this time -seen by GI, no new recs at this time. constipation has been having BM daily -contnue bowel regimen nutrition seen by nutrition -continue home TPN h/o gastroparesis continue home dose of phenergan h/o chronic pain home dilaudid will be held pain management with IV dilaudid for now h/o PE/DVT continue Eliquis asthma no exacerbation continue home inhalers h/o seizures continue keppra dvt ppx code status - full code attending: dr. merchant Quality Stroke Does the patient have a stroke diagnosis?: No VTE Prior VTE?: Yes VTE Risk Level:: Medical - moderate - high VTE Device Contraindication: Treatment Not Indicated VTE Drug Contraindication: N/A - Med Ordered
[2021-03-14 11:34] VITALS: BP 108/59; PULSE 70; RESP 20; TEMP 36.6; O2SAT 96
[2021-03-14] MEDS: HYDROmorphone HCl 1 MG/ML SYRINGE 0.5 MG IVPUSH ×3 (12:47→22:00)
[2021-03-14 15:19] VITALS: BP 100/51; PULSE 61; RESP 20; TEMP 36.1; O2SAT 94
[2021-03-14] MEDS: Fat Emulsions 20% 250 ML 35 ML IV (17:56)
--- NOTE | 2021-03-14 18:54 | PC.NURSE ---
Addendum entered by Jana Lazaro RN 03/14/21 18:56: fluids not administered by nursing d/t no iv access. Patient has implantable single port that is being used for TPN and lipids. Rn clarified with the pharmacy that LR can't be run with TPN together. Laura Cardona was notified. Three RN's atempted IV access with no success. Laura lopez notified again and she stated that continue with TPN and lipids only Original Note: Patient has active order for LR at 100 ml/hr , fluids wre
[2021-03-14] MEDS: Promethazine HCL 25 MG TABLET PO (22:11)
[2021-03-14] MEDS: Sennosides/Docusate Sodium TABLET 1 TAB PO (22:11)
[2021-03-15] VITALS: BP 113/57; PULSE 58; RESP 18; TEMP 36.3; O2SAT 96
[2021-03-15] MEDS: ondansetron HCL 4 MG/2 ML VIAL IVPUSH ×3 (00:14→17:11)
[2021-03-15] MEDS: diphenhydrAMINE HCL 50 MG/ML VIAL 25 MG IV ×3 (00:14→17:11)
[2021-03-15] MEDS: 0.9 % Sodium Chloride Flush 3 ML SYRINGE IVFLUSH ×3 (00:15→13:49)
[2021-03-15] MEDS: Fat Emulsions 20% 250 ML 35 ML IV ×2 (01:36→18:16)
[2021-03-15] MEDS: TiZANidine HCL 4 MG TABLET PO (02:43)
[2021-03-15] MEDS: HYDROmorphone HCl 1 MG/ML SYRINGE 0.5 MG IVPUSH ×5 (03:48→22:34)
--- NOTE | 2021-03-15 06:21 | PC.NURSE ---
pt port to right back not flushing and has no blood return. RN attempted multiple times to have pt reposition and moved dressing with no luck. nursing horticultural services supervisor notified and PILAR Estrada from ED came to assess. Port reaccessed with 20g that Is not able to use contrast for ct. TPN reattached.
[2021-03-15 07:11] VITALS: BP 104/58; PULSE 50; RESP 18; TEMP 36.1; O2SAT 97
[2021-03-15 07:47] LABS: Anion Gap 14 (12-20); Blood Urea Nitrogen 15 mg/dL (9-16); Calcium 9.2 mg/dL (8.4-10.2); Carbon Dioxide 25 mmol/L (22-29); Chloride 104 mmol/L (96-108); Creatinine Clr Calc Pharmacy 90.7; Estimated Glomerular Filt Rate > 60; Glucose Random 154 mg/dL (60-115); Potassium 4.2 mmol/L (3.3-5.1); Sodium 139 mmol/L (135-145)
[2021-03-15] MEDS: Fluticasone/Vilanterol 200/25 BLST.W.DEV 1 PUFF INHALE (07:51)
[2021-03-15 07:52] VITALS: PULSE 77; O2SAT 97
[2021-03-15] MEDS: levETIRAcetam Oral Soln 500 MG/5 ML 700 MG PO ×2 (07:59→20:09)
[2021-03-15] MEDS: Apixaban 5 MG TABLET PO ×2 (07:59→20:09)
[2021-03-15] MEDS: methylPREDNISolone Sod Succ 40 MG/ML VIAL 20 MG IVPUSH ×2 (08:00→20:10)
--- NOTE | 2021-03-15 08:23 | PC.NURSE ---
Pt had c/o nausea and 9/10 abd pain. PRN benedryl, zofran, and dilauded given.
[2021-03-15 08:47] LABS: Magnesium 2.5 mg/dL (1.6-2.6); Phosphorus 4.4 mg/dL (2.7-4.5); Triglycerides 176 mg/dL
--- NOTE | 2021-03-15 10:17 | HO.PM.IMPN ---
Subjective Subjective Date of Service: 03/15/21 Interval History: seen and examined this morning follow up for abdominal pain pain similar to yesterday; nausea at baseline Review of Systems Review of Systems: Yes all other systems are reviewed and are negative Constitutional Constitutional: Denies chills and Denies fever(s) Cardiovascular Cardiovascular: Denies chest pain Respiratory Respiratory: Denies cough Physical Exam Vital Signs: Vital Signs: Last Vital Signs Temp 97 F 03/15/21 07:11 Pulse 50 03/15/21 07:11 Resp 18 03/15/21 07:11 BP 104/58 L 03/15/21 07:11 Pulse Ox 97 03/15/21 07:11 Body Mass Index 25.8 Const: Other: appears more comfortable this morning General: alert and awake Nutritional Appearance: well nourished Orientation/consciousness: patient oriented x3 HENMT: Head: Yes normocephalic and Yes atraumatic Eyes: Sclerae: sclerae normal Chest: Chest palpation & inspection: normal inspection of the chest Resp: Effort & Inspection: normal respiratory effort and no respiratory distress Cardio: Rate: regular rate Rhythm: regular rhythm GI: Other: abdomen soft, non-distended; +bowel sounds, mild tenderness lower abdomen;multiple abdominal scars Inspection: No distended Palpation (GI): Soft to palpation, Tenderness to palpation present (GI) (mild TTP mid abdomen) and no guarding Neuro: General: patient oriented x3 Cranial nerves: Yes CN's II-XII intact bilaterally and Yes Bilaterally intact EOM present Extrem: Other: no leg edema Objective Data Active Medications Acetaminophen (Acetaminophen 325 Mg Tablet) 650 mg PO Q6H PRN PRN Reason: Pain, Mild (Pain Scale 1-3) Albuterol Sulfate (Albuterol Sulfate 90 Mcg 8 Gm Inhaler) 2 puff INHALE Q4H PRN PRN Reason: Wheezing Apixaban (Apixaban 5 Mg Tablet) 5 mg PO BID ANNA Last Admin: 03/15/21 07:59 Dose: 5 mg Documented by: PENNIE Diphenhydramine HCl (Diphenhydramine Hcl 50 Mg/Ml Vial) 25 mg IV QID PRN PRN Reason: Nausea Last Admin: 03/15/21 08:03 Dose: 25 mg Documented by: PENNIE Docusate Sodium (Docusate Sodium 100 Mg Capsule) 100 mg PO DAILY PRN PRN Reason: Constipation Fluticasone/Vilanterol (Fluticasone/Vilanterol 200/25 Blst.W.Dev) 1 puff INHALE RDAILY [facility] Last Admin: 03/15/21 07:51 Dose: 1 puff Documented by: LAURENT Hydromorphone HCl (Hydromorphone Hcl 4 Mg Tablet) 4 mg PO TID PRN PRN Reason: Pain, Severe (Pain Scale 7-10) Last Admin: 03/15/21 01:27 Dose: 4 mg Documented by: SONIA Hydromorphone HCl (Hydromorphone Hcl 1 Mg/Ml Syringe) 0.5 mg IVPUSH Q4H PRN; Protocol PRN Reason: severe breakthrough pain Last Admin: 03/15/21 08:04 Dose: 0.5 mg Documented by: PENNIE Lactated Ringer's (Lr) 1,000 mls @ 100 mls/hr IVCONT .Q10H [facility] Last Admin: 03/15/21 01:13 Dose: Not Given Documented by: SONIA Non-Admin Reason: IV Running Multivitamins 15 ml/ Trace Metals 1.5 ml/ Amino Acids/Electrolytes 1,320 mls @ 55 mls/hr IV DAILY@1800 [facility] Stop: 03/15/21 17:59 Last Admin: 03/14/21 17:56 Dose: 55 mls/hr Documented by: ANJEL Fat Emulsion Intravenous (Intralipid) 210 mls @ 35 mls/hr IV DAILY@0000,1800 [facility] Stop: 03/16/21 05:59 Multivitamins 15 ml/ Trace Metals 1.5 ml/ Amino Acids/Electrolytes 1,320 mls @ 55 mls/hr IV DAILY@1800 [facility] Stop: 03/16/21 17:59 Levetiracetam (Levetiracetam Oral Soln 500 Mg/5 Ml) 700 mg PO BID [facility] Last Admin: 03/15/21 07:59 Dose: 700 mg Documented by: PENNIE Methylprednisolone Sodium Succinate (Methylprednisolone Sod Succ 40 Mg/Ml Vial) 20 mg IVPUSH Q12H [facility] Last Admin: 03/15/21 08:00 Dose: 20 mg Documented by: PENNIE Ondansetron HCl (Ondansetron Hcl 4 Mg/2 Ml Vial) 4 mg IVPUSH Q8H PRN PRN Reason: Nausea and Vomiting Last Admin: 03/15/21 08:02 Dose: 4 mg Documented by: PENNIE Pharmacy Consult (Consult Rx Perform Med Rec) 1 each MISCELLANE ONCE PRN PRN Reason: Consult order Promethazine HCl (Promethazine Hcl 25 Mg Tablet) 25 mg PO QID PRN PRN Reason: nausea Last Admin: 03/14/21 22:11 Dose: 25 mg Documented by: ANJEL Senna/Docusate Sodium (Sennosides/Docusate Sodium Tablet) 1 tab PO BEDTIME [facility] Last Admin: 03/14/21 22:11 Dose: 1 tab Documented by: ANJEL Sodium Chloride (0.9 % Sodium Chloride Flush 3 Ml Syringe) 3 ml IVFLUSH QSHIFT [facility] Last Admin: 03/15/21 08:23 Dose: 3 ml Documented by: PENNIE Tiotropium Holloway (Tiotropium Holloway 18 Mcg Cap.W.Dev) 1 puff INHALE RDAILY [facility] Last Admin: 03/15/21 07:51 Dose: 1 puff Documented by: LAURENT Tizanidine HCl (Tizanidine Hcl 4 Mg Tablet) 4 mg PO TID PRN PRN Reason: Muscle Spasm Last Admin: 03/15/21 02:43 Dose: 4 mg Documented by: SONIA Labs CBC & Chem 7: 03/14/21 06:39 03/15/21 07:06 Labs: Laboratory Results - last 24 hr 03/15/21 07:06 Anion Gap 14 Estim Creat Clear Calc 90.7 Estimated GFR > 60 Random Glucose 154 H Calcium 9.2 Phosphorus 4.4 Magnesium 2.5 Triglycerides 176 Microbiology Microbiology Results: Microbiology 03/13/21 19:35 Stool Culture - Preliminary Stool Normal so far. Assessment and Plan (1) Abdominal pain: Status: Acute (2) Chronic pain: Status: Acute Assessment and Plan: This is a 40-year-old female with a past medical history of Behcet's disease, possible Crohn's disease, gastroparesis, pyloric stenosis s/p dilaton, chronic pain syndrome on opiates, degenerative spine disease, chronic low back pain, history of spontaneous pneumothorax status post pleurodesis, history of DVT/PE on Eliquis, asthma on chronic TPN who presents to the ED with abdominal pain found to have CT concerning for mild colitis abdominal pain reports baseline abdominal pain of 6-8; in hospital pain around 8-9, but seems to be improving overall h/o chronic pain. sees pain management clinic. home narcotics not controlling current abdominal pain. CT scan with ?mild colitis and moderate stool burden. possibly r/t crohns flare also has chronic back pain, ? component of referred pain -wean IV pain meds, transition back to PO as tolerated -wean IV steroids -No abx indicated at this time -seen by GI, no new recs at this time. constipation has been having BM daily -continue bowel regimen nutrition seen by nutrition -continue home TPN h/o gastroparesis continue home dose of phenergan/benadryl h/o chronic pain transition back to PO dilaudid with IV for breakthrough pain h/o PE/DVT continue Eliquis asthma no exacerbation continue home inhalers h/o seizures continue keppra dvt ppx code status - full code attending: dr. wills Has follow up appointment in pain clinic on tuesday Quality Stroke Does the patient have a stroke diagnosis?: No VTE Prior VTE?: Yes VTE Risk Level:: Medical - moderate - high VTE Device Contraindication: Treatment Not Indicated VTE Drug Contraindication: N/A - Med Ordered
[2021-03-15 10:58] VITALS: BP 98/54; PULSE 51; RESP 18; TEMP 36
--- NOTE | 2021-03-15 14:26 | PC.NURSE ---
Pt OOB and appearing more comfortable at this time.
[2021-03-15 15:40] VITALS: BP 116/71; PULSE 80; RESP 20; TEMP 36.6; O2SAT 96
[2021-03-15] MEDS: Sennosides/Docusate Sodium TABLET 1 TAB PO (20:09)
[2021-03-15 23:28] VITALS: BP 118/61; PULSE 75; RESP 18; TEMP 36.8; O2SAT 94
[2021-03-16] MEDS: Fat Emulsions 20% 250 ML 35 ML IV (00:26)
[2021-03-16] MEDS: 0.9 % Sodium Chloride Flush 3 ML SYRINGE IVFLUSH ×2 (00:26→08:21)
[2021-03-16] MEDS: HYDROmorphone HCl 1 MG/ML SYRINGE 0.5 MG IVPUSH ×2 (02:41→06:41)
[2021-03-16] MEDS: ondansetron HCL 4 MG/2 ML VIAL IVPUSH (02:41)
[2021-03-16] MEDS: diphenhydrAMINE HCL 50 MG/ML VIAL 25 MG IV (02:47)
[2021-03-16] MEDS: Fluticasone/Vilanterol 200/25 BLST.W.DEV 1 PUFF INHALE (07:39)
[2021-03-16 07:42] VITALS: PULSE 72; O2SAT 95
[2021-03-16 07:53] LABS: Anion Gap 12 (12-20); Blood Urea Nitrogen 16 mg/dL (9-16); Carbon Dioxide 27 mmol/L (22-29); Chloride 105 mmol/L (96-108); Creatinine Clr Calc Pharmacy 96.1; Estimated Glomerular Filt Rate > 60; Glucose Random 125 mg/dL (60-115); Potassium 4.3 mmol/L (3.3-5.1); Sodium 140 mmol/L (135-145)
[2021-03-16 08:00] VITALS: BP 122/72; PULSE 85; RESP 19; TEMP 36.9; O2SAT 97
[2021-03-16] MEDS: methylPREDNISolone Sod Succ 40 MG/ML VIAL 20 MG IVPUSH (08:20)
[2021-03-16] MEDS: levETIRAcetam Oral Soln 500 MG/5 ML 700 MG PO (08:20)
[2021-03-16] MEDS: Apixaban 5 MG TABLET PO (08:20)
[2021-03-16] MEDS: Promethazine HCL 25 MG TABLET PO (09:21)
[2021-03-16 09:22] LABS: Magnesium 2.5 mg/dL (1.6-2.6); Phosphorus 4.5 mg/dL (2.7-4.5)
--- NOTE | 2021-03-16 09:57 | P.DS_ITS ---
DS: Providers Provider Date of Service: 03/16/21 Date of admission: 03/16/21 09:03 Primary care physician: Amelie Banks NP Consults: 03/12/21 14:11 Consult to Gastroenterology Routine Consulting Provider: Anastacio Alvarado Reason for consultation: abdominal pain Has provider been notified: No Attending physician on discharge: Elieser Recio Discharging clinician: Cheryl Ricketts DS: Diagnosis Discharge Diagnosis (1) Abdominal pain: Status: Acute (2) Chronic pain: Status: Acute DS: Summary Hospital Course Hospital Course: as admitting provider This is a 40-year-old female with history Behcet's syndrome, gastroparesis, h/o DVT/PE on Eliquis, chronic back pain on chronic opiates who presents to the ED with abdominal pain.? She reports acute onset of lower abdominal pain starting at around 03:00 this morning. The pain radiates around the left side of her abdomen.? She has waves of severe sharp pain. She denies any associated nausea or vomiting at this time, but was having nausea earlier.? She has had intermittent red blood streaks mixed in with her stool over the past few weeks. She had diarrhea this morning around [address] of the abdomen was done and showed moderate stool burden as well as mild bowel wall thickening involving the transverse and proximal descending colon which may be r elated to early or mild colitis.? Lab work reveals mild leukocytosis with a white count of 11.9 and is otherwise unremarkable.? She received multiple doses of IV Dilaudid but continued to complain of significant abdominal pain and therefore the decision was made to admit her to the hospital overnight for observation for intractable pain . Abdominal pain/Chrohns flare vs colitis. History of chronic pain. Treated with Iv pain medications with effective pain control. CT scan showed mild colitis. Treated with IV steroids for ? mild chrohns. Will transition to oral prednisone tape for 8 weeks, she can follow up with GI as outpatient. She can continue her pain medication she was taking as an outpatient. She also has an outpatient follow up with Pain management clinic. Time Spent with Patient Time attestation: Total time spent providing and/or coordinating discharge services: Discharge coordination time: Greater than 30 minutes Quality: Stroke Does the patient have a stroke diagnosis?: No Physical Exam Vital Signs: Vital Signs: Last Vital Signs Temp 98.4 F 03/16/21 08:00 Pulse 85 03/16/21 08:00 Resp 19 03/16/21 08:00 BP 122/72 03/16/21 08:00 Pulse Ox 97 03/16/21 08:00 Body Mass Index 25.8 Appearing in no acute distress head is normocephalic atraumatic eyes pupils are PERRLA sclera is anicteric mouth throat mucous membranes are intact and moist neck is supple no lymphadenopathy, no JVD noted lung sounds are clear to auscultation heart regular rate rhythm, clear S1, S2 positive bowel sounds, abdomen is soft, nontender neuro patient is alert x3, no focal deficits DS: Data Data Completed and Pending Labs on day of discharge: Laboratory Results - last 24 hr 03/16/21 06:50 Sodium 140 Potassium 4.3 Chloride 105 Carbon Dioxide 27 Anion Gap 12 BUN 16 Creatinine 0.67 Estim Creat Clear Calc 96.1 Estimated GFR > 60 Random Glucose 125 H Calcium 9.0 Phosphorus 4.5 Magnesium 2.5 Discharge Plan Discharge Anticipated Discharge Date/Time: 03/16/21 09:52 Patient Disposition: Home, Self-Care Discharge Diagnosis: Abdominal pain Crohn's flare Referrals: Amelie Banks NP [Primary Care Provider] - 1 Week Anastacio Alvarado [Physician] - 1 Week Discharge Medications: New prednisone 5 mg tablet See Taper mg PO DAILY Qty: 252 RF: 0 Continued levetiracetam 100 mg/mL solution 7 ml PO BID RF: 0 albuterol sulfate 90 mcg/actuation Hfa Aerosol Inhaler 2 puff INHALATION Q4H PRN (Reason: Wheezing) RF: 0 Incruse Ellipta 62.5 mcg/actuation Blister With Device 1 inh INHALATION DAILY RF: 0 Breo Ellipta 200-25 mcg/dose Blister With Device 1 inh INHALATION Q24H RF: 0 diphenhydramine HCl 50 mg/mL solution 25 mg IV QID PRN (Reason: Nausea) RF: 0 ondansetron HCl (PF) 4 mg/2 mL solution 4 mg IV TID PRN (Reason: Nausea) RF: 0 acetaminophen 325 mg Tablet 650 mg PO Q4H PRN (Reason: Pain) RF: 0 tizanidine 4 mg tablet 4 mg PO TID PRN (Reason: Muscle Spasm) RF: 0 promethazine 25 mg tablet 25 mg PO QID PRN (Reason: nausea) RF: 0 hydromorphone 4 mg tablet 4 mg PO TID PRN (Reason: pain) 30 Days Qty: 90 RF: 0 Eliquis 5 mg tablet 5 mg PO BID RF: 0 Discharge Orders: Discharge Order (Routine); Ordered 03/16/21 Ordered By: Cheryl Ricketts Diet: advance to usual diet Activity on Discharge: As tolerated Stand Alone Forms: Patient Portal Discharge page Care Plan Goals: Improvement in abdominal pain symptoms Health Concerns: Abdominal pain Chrohns flare Plan of Treatment: Take prednisone taper for 8 weeks Follow up with [employer] as needed Follow-up with pain management as needed Assessment: See discharge summary Discharge Date/Time: 03/16/21 10:33
--- NOTE | 2021-03-16 10:12 | MHC.CM.PN ---
pt now inpt imm given to pt prior to dcd
[2021-03-18 22:16] LABS: Calprotectin, Fecal 69 mcg/g
== END 2021-03-16 10:33 | disposition home or self-care (01) | DRG 392 ==
LOC: HO.ED 12:37 → HO.EDOVER 14:25 → HO.IMC 20:00
PROVIDERS: Internal Medicine Gastroenterology; Physician Assistant; Admitting Provider Physician Assistant Medical; Emergency Provider Emergency Medicine Emergency Medical Services; PCP Registered Nurse; Visit Provider Nurse Practitioner Acute Care
DX: K52.9 Noninfective gastroenteritis and colitis, unspecified (principal); K50.90 Crohn's disease, unspecified, without complications; G40.909 Epilepsy, unspecified, not intractable, without status epilepticus; J45.909 Unspecified asthma, uncomplicated; G89.29 Other chronic pain; K59.00 Constipation, unspecified; Z20.822 Contact with and (suspected) exposure to COVID-19; Z86.718 Personal history of other venous thrombosis and embolism; Z88.0 Allergy status to penicillin; Z88.2 Allergy status to sulfonamides; Z79.891 Long term (current) use of opiate analgesic; Z79.01 Long term (current) use of anticoagulants; Z79.899 Other long term (current) drug therapy
CPT/HCPCS: 36415; 74177; 80048; 82947; 83690; 83735; 83993; 84100; 84478; 85027; 87045; 87046; 87177; 87209; 87635; 89055; 96361; 96374; 96375; 96376; 99219; 99284; 99291; J1170; J1200; J2405; J2920; Q9967

== ENCOUNTER → 2021-03-18 08:42 | Outpatient (BNVA) | payer MEDICARE, MEDICAID, SELFPAY | PROVIDERS: PCP Registered Nurse; Visit Provider Anesthesiology | DX: Z51.81 Encounter for therapeutic drug level monitoring (principal); M35.2 Behcet's disease; K50.90 Crohn's disease, unspecified, without complications; M54.2 Cervicalgia; G89.4 Chronic pain syndrome | CPT/HCPCS: 99212 ==

== ENCOUNTER → 2021-04-13 15:44 | Outpatient (BNVA) | payer MEDICARE, MEDICAID, SELFPAY | PROVIDERS: PCP Registered Nurse; Visit Provider Anesthesiology ==

== ENCOUNTER 2021-04-25 16:47 | Emergency (ER) | payer MEDICARE, MEDICAID, SELFPAY ==
--- NOTE | ~2021-04-25 | CT_ITS ---
EXAMINATION: CT ABDOMEN AND PELVIS WITHOUT CONTRAST CLINICAL INFORMATION: Right lower quadrant pain. History of Crohn's disease with adhesions. COMPARISON: 03/12/2021 TECHNIQUE: Multidetector volumetric imaging was performed from the superior aspect of the liver through the pubic symphysis. Sagittal and coronal reformatted images were obtained on the technologist's workstation. This CT examination was performed using dose optimization techniques as appropriate, variously including the following: *Automated exposure control *Adjustment of mA and/or kV according to patient size (this includes techniques or standardized protocols for targeted exams where dose is matched to indication/reason for exam; i.e. extremities or head) *Use of iterative reconstruction technique DLP: 491 mGy-cm FINDINGS: LUNG BASES: Stable pleural parenchymal scarring within the left lower lung and anterior middle lobe with associated nodular pleural calcification throughout the imaged left lower hemithorax. LIVER, GALLBLADDER, AND BILIARY TREE: The liver is normal in size, shape, and attenuation. No focal hepatic lesion or biliary ductal dilatation is present. Gallbladder physiologically distended. PANCREAS: Unremarkable. SPLEEN: Unremarkable. ADRENAL GLANDS: Unremarkable. KIDNEYS AND URETERS: The kidneys are normal in size, shape, and attenuation. No hydronephrosis, hydroureter, or calculi seen. No perinephric stranding. BLADDER: Punctate nondependent focus of gas within the bladder. Correlate with recent bladder catheterization. No bladder wall thickening or perivascular fat stranding to suggest cystitis. GASTROINTESTINAL TRACT: Small sliding-type hernia. Stomach otherwise unremarkable. Small and large bowel show no evidence of inflammation on the current exam. Normal appendix. ABDOMINAL WALL: Left lower quadrant hernia repair related to previous left lower quadrant ostomy. LYMPH NODES: Normal. VASCULAR: Normal caliber aorta. Mediport catheter terminates within the IVC via a right posterolateral flank approach. PELVIC VISCERA: Uterus and adnexa unremarkable. OSSEOUS STRUCTURES: No acute or suspicious osseous abnormalities. CT/CT abdomen pelvis wo con IMPRESSION: No evidence of significant active gastrointestinal inflammation on this unenhanced exam.. Normal appendix.
[2021-04-25 16:57] VITALS: BP 128/78; PULSE 96; O2SAT 97
[2021-04-25 18:09] VITALS: BP 108/63; PULSE 97; RESP 19; TEMP 36.7; O2SAT 96; BMI 26.6
[2021-04-25 20:38] VITALS: BP 104/72; PULSE 99; RESP 24; TEMP 37.6; O2SAT 98
[2021-04-25 21:07] LABS: Appearance Urine CLEAR; Color Urine DK YELLOW; Glucose Urine UA NEG (NEG); Leukocyte Esterase Urine TRACE (NEG); Nitrite Urine POS (NEG); PH 5.5 (5.0-8.0); Specific Gravity - Urine >= 1.030 (1.005-1.025); UACC Culture Trigger YES; Urine Blood NEG (NEG); Urine Ketones 15 MG/DL (NEG); Urine Protein TRACE MG/DL (NEG-TRACE)
[2021-04-25 21:24] LABS: Squamous Epithelial Cell Urine TRACE /LPF
[2021-04-25 21:25] LABS: Bacteria Urine 1+ /LPF; Mucus Urine 1+ /LPF
[2021-04-25 21:35] LABS: Basophils Percent Auto 0.1 % (0-2); Hematocrit 41.5 % (37.0-47.0); Hemoglobin 14.1 g/dl (12.0-16.0); Imm Gran Abs Auto 0.08 X10*3/uL (0.00-0.03); Imm Gran Pct Auto 0.5 % (0.0-0.4); Lymphocytes Absolute Auto 0.2 X10*3/uL (1.2-4.9); Lymphocytes Percent Auto 1.4 % (20-40); MANUAL DIFF FLAG SCAN; Mean Corpuscular Hemoglobin 29.4 pg (27.0-33.0); Mean Corpuscular Volume 86.5 fL (80.0-98.0); Mean Platelet Volume 10.2 fL (9.4-12.3); Monocytes Absolute Auto 0.6 X10*3/uL (0.1-1.2); Monocytes Percent Auto 4.3 % (2-11); Neutrophils Absolute Auto 13.8 x10*3/uL (2.0-8.3); Neutrophils Percent Auto 93.7 % (45-73); Platelet Count 199 X10*3/uL (160-400); Red Cell Distribution Width 12.8 % (11.0-16.0); SCAN SMEAR FLAG 1; White Blood Count 14.7 X10*3/uL (4.8-10.8)
[2021-04-25 21:53] LABS: SLIDE REVIEW VERIFIED
--- NOTE | 2021-04-25 22:01 | ED.ABDPAIN ---
HPI - Abdominal Pain General Chief Complaint: Abdominal Pain Stated Complaint: nausea vomiting Time Seen by Provider: 04/25/21 21:09 Source: patient Mode of arrival: ambulatory Limitations: no limitations History of Present Illness HPI narrative: Patient comes emergency room complaining of abdominal pain. Patient states that earlier this morning she started having nausea vomiting and diarrhea. Patient complaining of right lower quadrant pain radiating towards the suprapubic area. Patient denies dysuria. States that she thinks he may have had blood in the stool, states that the last few bowel movements have been almost black. Denies taking Pepto-Bismol. Patient states she has history of adhesions the need to be surgically repaired. Related Data Home Medications Medication Instructions Recorded Confirmed promethazine 25 mg tablet 25 mg PO QID PRN 04/02/20 03/12/21 tizanidine 4 mg tablet 4 mg PO TID PRN 04/02/20 03/12/21 apixaban 5 mg tablet (Eliquis) 5 mg PO BID 09/22/20 03/12/21 albuterol sulfate 90 mcg/actuation 2 puff INHALATION Q4H PRN 12/12/20 03/12/21 aerosol inhaler fluticasone furoate 200 1 inh INHALATION Q24H 12/12/20 03/12/21 mcg-vilanterol 25 mcg/dose inhalation powder (Breo Ellipta) levetiracetam 100 mg/mL oral 7 ml PO BID 12/12/20 03/12/21 solution umeclidinium 62.5 mcg/actuation 1 inh INHALATION DAILY 12/12/20 03/12/21 blister powder for inhalation (Incruse Ellipta) acetaminophen 325 mg tablet 650 mg PO Q4H PRN 03/12/21 03/12/21 diphenhydramine HCl 50 mg/mL 25 mg IV QID PRN 03/12/21 03/12/21 injection solution ondansetron HCl (PF) 4 mg/2 mL 4 mg IV TID PRN 03/12/21 03/12/21 injection solution Previous Rx's Medication Instructions Recorded prednisone 5 mg tablet See Taper PO DAILY #252 tab 03/16/21 hydromorphone 4 mg tablet 4 mg PO TID PRN 30 Days #90 tab 03/18/21 nitrofurantoin 100 mg PO Q12H 7 Days #14 cap 04/26/21 monohydrate/macrocrystals 100 mg capsule (Macrobid) Allergies Allergy/AdvReac Type Severity Reaction Status Date / Time ciprofloxacin [Cipro] Allergy Unknown unknown Verified 04/25/21 18:09 levofloxacin [Levaquin] Allergy Unknown unknown Verified 04/25/21 18:09 metoclopramide [Reglan] Allergy Unknown unknown Verified 04/25/21 18:09 ondansetron [Zofran] Allergy Unknown unknown Verified 04/25/21 18:09 penicillin V Allergy Unknown unknown Verified 04/25/21 18:09 Sulfa (Sulfonamide Allergy Unknown unknown Verified 04/25/21 18:09 Antibiotics) prochlorperazine Allergy unknown Verified 04/25/21 18:09 [From Compazine] thalidomide [From Thalomid] Allergy unknown Verified 04/25/21 18:09 Review of Systems Review of Systems Constitutional : No Weight loss, No Fever, No Chills, No Night Sweats, No Fatigue, No Malaise ENT/Mouth : No Hearing loss, No Ear Pain, No Nasal Congestion, No Sinus Pain, No Hoarseness, No sore throat, No Rhinorrhea, No Swallowing Difficulty Eyes: No Eye Pain, No Swelling, No Redness, No Foreign Body, No Discharge, No Vision Changes Cardiovascular : No Chest Pain, No SOB, No Dyspnea on Exertion, No Orthopnea, No Edema, No Palpitations Respiratory : No Cough, No Sputum, No Wheezing, No Smoke Exposure, No Dyspnea Gastrointestinal : Complaining of nausea vomiting and diarrhea, no constipation, complaining of right lower quadrant pain radiating towards the suprapubic area. States has had black stool over the last few days. Genitourinary : no irregular bleeding, No Dysuria, No Urinary Frequency, No Hematuria, No Urinary Incontinence, No Urgency, No Flank Pain, No Urinary Flow Changes, No Hesitancy Musculoskeletal : No joint pain, No Myalgias, No Joint Swelling Skin : No Skin Lesions, No rash Neuro : No Weakness, No Numbness, No Paresthesias, No Loss of Consciousness, No Dizziness, No Headache Psych : No Anxiety/Panic, No Depression, No SI/HI/AH/VH, No Social Issues, Heme/Lymph: No Bruising, No Bleeding,No Lymphadenopathy Endocrine : No Polyuria, No Polydipsia, No Temperature Intolerance Physical Exam Vital Signs: Vital Signs: Last Vital Signs Temp 98.9 F 04/26/21 00:28 Pulse 91 04/26/21 00:28 Resp 15 04/26/21 00:28 BP 109/55 L 04/26/21 00:28 Pulse Ox 95 04/26/21 00:28 BMI result Body Mass Index 26.6 Const: Other: Appearance: Alert. Oriented X3. Seems uncomfortable Eyes: Pupils equal, round and reactive to light. ENT: Pharynx normal. Neck: Normal inspection. Neck supple. No lymph nodes noted. No crepitus CVS: Normal heart rate and rhythm. Pulses normal. Normal S1 and S2 Respiratory: No respiratory distress. Breath sounds normal. No Wheezing. No rales Abdomen: Soft , mild tenderness to palpation and right lower quadrant and periumbilical area. No guarding, no rebound. No rigidity. No distention. Skin: Skin warm and dry. Normal skin color. Normal skin turgor. Extremities: No lower extremity edema. No lower extremity edema. No Lacerations. No Rash Neuro: Oriented X 3. No motor deficit. No sensory deficit. Moving all extermities. No slurred speech. Course Course Course Narrative: I discussed the labs and imaging with the patient. Patient does have a UTI. Colitis not suspected at this time. Given the patient's list of allergies, patient will be treated with Macrobid for the UTI. Patient ready to be discharged home. Patient states that she has an appointment pending with her clinical trial specialist for ulcerative colitis. Occult blood negative. Sepsis is not suspected. MDM - Abdominal Pain Lab Data Result diagrams: 04/25/21 21:23 04/25/21 21:23 Labs: Lab Results 04/25/21 04/25/21 04/25/21 Range/Units 20:54 21:23 21:23 WBC 14.7 H (4.8-10.8) X10*3/uL RBC 4.80 (4.20-5.50) X10*6/uL Hgb 14.1 (12.0-16.0) g/dl Hct 41.5 (37.0-47.0) % MCV 86.5 (80.0-98.0) fL MCH 29.4 (27.0-33.0) pg MCHC 34.0 (31.0-35.0) g/dl RDW 12.8 (11.0-16.0) % Plt Count 199 (160-400) X10*3/uL MPV 10.2 (9.4-12.3) fL Immature Gran % (Auto) 0.5 H (0.0-0.4) % Neut % (Auto) 93.7 H (45-73) % Lymph % (Auto) 1.4 L (20-40) % Yell % (Auto) 4.3 (2-11) % Eos % (Auto) 0.0 (0-4) % Baso % (Auto) 0.1 (0-2) % Lymph # (Auto) 0.2 L (1.2-4.9) X10*3/uL Yell # (Auto) 0.6 (0.1-1.2) X10*3/uL Eos # (Auto) 0.0 (0.0-0.4) X10*3/uL Baso # (Auto) 0.0 (0.0-0.2) X10*3/uL Abs Immat Gran (auto) 0.08 H (0.00-0.03) X10*3/uL Absolute Neuts (auto) 13.8 H (2.0-8.3) x10*3/uL Absolute Nucleated RBC 0.000 (0.0-0.012) X10*3/uL Nucleated RBC % (auto) 0.0 (0.0-0.2) /100WBC Smear Tech's Comments VERIFIED ESR (0-20) MM/HR Sodium 138 (135-145) mmol/L Potassium 3.8 (3.3-5.1) mmol/L Chloride 101 (96-108) mmol/L Carbon Dioxide 23 (22-29) mmol/L Anion Gap 18 (12-20) BUN 20 H (9-16) mg/dL Creatinine 0.84 (0.5-1.4) mg/dL Estim Creat Clear Calc 68.7 Estimated GFR > 60 Random Glucose 126 H (60-115) mg/dL Calcium 9.4 (8.4-10.2) mg/dL Total Bilirubin 0.7 (0.0-1.0) mg/dL AST 26 D (5-31) U/L ALT 17 (0-31) U/L Alkaline Phosphatase 73 D (39-117) U/L C-Reactive Protein 2.55 H (< or = 0.50) mg/dL Total Protein 7.0 (6.5-8.0) g/dL Albumin 4.6 (3.5-5.0) g/dL Lipase 4 L (8-78) U/L Urine Color DK YELLOW Urine Appearance CLEAR Urine pH 5.5 (5.0-8.0) Ur Specific [place] >= 1.030 H (1.005-1.025) Urine Protein TRACE (NEG-TRACE) MG/DL Urine Glucose (UA) NEG (NEG) MG/DL Urine Ketones 15 (NEG) MG/DL Urine Blood NEG (NEG) Urine Nitrite POS H (NEG) Ur Leukocyte Esterase TRACE H (NEG) Urine RBC 1-4 (0) /HPF Urine WBC 1-4 (0-4) /HPF Ur Squamous Epith Cells TRACE /LPF Urine Bacteria 1+ /LPF Urine Mucus 1+ /LPF Stool Occult Blood (NEGATIVE) 04/25/21 04/26/21 Range/Units 21:23 00:44 WBC (4.8-10.8) X10*3/uL RBC (4.20-5.50) X10*6/uL Hgb (12.0-16.0) g/dl Hct (37.0-47.0) % MCV (80.0-98.0) fL MCH (27.0-33.0) pg MCHC (31.0-35.0) g/dl RDW (11.0-16.0) % Plt Count (160-400) X10*3/uL MPV (9.4-12.3) fL Immature Gran % (Auto) (0.0-0.4) % Neut % (Auto) (45-73) % Lymph % (Auto) (20-40) % Yell % (Auto) (2-11) % Eos % (Auto) (0-4) % Baso % (Auto) (0-2) % Lymph # (Auto) (1.2-4.9) X10*3/uL Yell # (Auto) (0.1-1.2) X10*3/uL Eos # (Auto) (0.0-0.4) X10*3/uL Baso # (Auto) (0.0-0.2) X10*3/uL Abs Immat Gran (auto) (0.00-0.03) X10*3/uL Absolute Neuts (auto) (2.0-8.3) x10*3/uL Absolute Nucleated RBC (0.0-0.012) X10*3/uL Nucleated RBC % (auto) (0.0-0.2) /100WBC Smear Tech's Comments ESR 5 (0-20) MM/HR Sodium (135-145) mmol/L Potassium (3.3-5.1) mmol/L Chloride (96-108) mmol/L Carbon Dioxide (22-29) mmol/L Anion Gap (12-20) BUN (9-16) mg/dL Creatinine (0.5-1.4) mg/dL Estim Creat Clear Calc Estimated GFR Random Glucose (60-115) mg/dL Calcium (8.4-10.2) mg/dL Total Bilirubin (0.0-1.0) mg/dL AST (5-31) U/L ALT (0-31) U/L Alkaline Phosphatase (39-117) U/L C-Reactive Protein (< or = 0.50) mg/dL Total Protein (6.5-8.0) g/dL Albumin (3.5-5.0) g/dL Lipase (8-78) U/L Urine Color Urine Appearance Urine pH (5.0-8.0) Ur Specific [place] (1.005-1.025) Urine Protein (NEG-TRACE) MG/DL Urine Glucose (UA) (NEG) MG/DL Urine Ketones (NEG) MG/DL Urine Blood (NEG) Urine Nitrite (NEG) Ur Leukocyte Esterase (NEG) Urine RBC (0) /HPF Urine WBC (0-4) /HPF Ur Squamous Epith Cells /LPF Urine Bacteria /LPF Urine Mucus /LPF Stool Occult Blood NEGATIVE (NEGATIVE) Imaging Data CT scan - abdomen: Radiologist's impression: FINDINGS: LUNG BASES: Stable pleural parenchymal scarring within the left lower lung and anterior middle lobe with associated nodular pleural calcification throughout the imaged left lower hemithorax.? LIVER, GALLBLADDER, AND BILIARY TREE: The liver is normal in size, shape, and attenuation. No focal hepatic lesion or biliary ductal dilatation is present. Gallbladder physiologically distended.? PANCREAS: Unremarkable.? SPLEEN: Unremarkable.? ADRENAL GLANDS: Unremarkable.? KIDNEYS AND URETERS: The kidneys are normal in size, shape, and attenuation. No hydronephrosis, hydroureter, or calculi seen. No perinephric stranding. ? BLADDER: Punctate nondependent focus of gas within the bladder. Correlate with recent bladder catheterization. No bladder wall thickening or perivascular fat stranding to suggest cystitis.? GASTROINTESTINAL TRACT: Small sliding-type hernia. Stomach otherwise unremarkable. Small and large bowel show no evidence of inflammation on the current exam. Normal appendix. ABDOMINAL WALL: Left lower quadrant hernia repair related to previous left lower quadrant ostomy.? LYMPH NODES: Normal. VASCULAR: Normal caliber aorta. Mediport catheter terminates within the IVC via a right posterolateral flank approach. PELVIC VISCERA: Uterus and adnexa unremarkable.? OSSEOUS STRUCTURES: No acute or suspicious osseous abnormalities.? CT/CT abdomen pelvis wo con IMPRESSION: No evidence of significant active gastrointestinal inflammation on this unenhanced exam.. Normal appendix.? ? ? Discharge Plan Discharge Clinical Impression: Abdominal pain Qualifiers: Abdominal location: generalized Qualified Code(s): R10.84 - Generalized abdominal pain UTI (urinary tract infection) Qualifiers: Urinary tract infection type: site unspecified Patient Disposition: Home, Self-Care Instructions: Urinary Tract Infection in Women (ED) Additional Instructions: Please follow-up with your primary care physician tomorrow. If you have any worsening or new symptoms, please return to the emergency room or call 911 Prescriptions: New nitrofurantoin monohyd/m-cryst [Macrobid] 100 mg capsule 100 mg PO Q12H 7 Days Qty: 14 RF: 0 No Action levetiracetam 100 mg/mL solution 7 ml PO BID RF: 0 albuterol sulfate 90 mcg/actuation Hfa Aerosol Inhaler 2 puff INHALATION Q4H PRN (Reason: Wheezing) RF: 0 Incruse Ellipta 62.5 mcg/actuation Blister With Device 1 inh INHALATION DAILY RF: 0 Breo Ellipta 200-25 mcg/dose Blister With Device 1 inh INHALATION Q24H RF: 0 diphenhydramine HCl 50 mg/mL solution 25 mg IV QID PRN (Reason: Nausea) RF: 0 ondansetron HCl (PF) 4 mg/2 mL solution 4 mg IV TID PRN (Reason: Nausea) RF: 0 acetaminophen 325 mg Tablet 650 mg PO Q4H PRN (Reason: Pain) RF: 0 prednisone 5 mg tablet See Taper mg PO DAILY Qty: 252 RF: 0 tizanidine 4 mg tablet 4 mg PO TID PRN (Reason: Muscle Spasm) RF: 0 promethazine 25 mg tablet 25 mg PO QID PRN (Reason: nausea) RF: 0 Eliquis 5 mg tablet 5 mg PO BID RF: 0 hydromorphone 4 mg tablet 4 mg PO TID PRN (Reason: pain) 30 Days Qty: 90 RF: 0 PMFSH Past Medical History Medical History Abdominal pain Abdominal pain, chronic, generalized Asthma Behcet's disease Cervicalgia Chronic pain syndrome Common variable immunodeficiency Crohn's disease Gastroparesis Low back pain Pyloric stenosis Spondylolisthesis, lumbar region Spondylosis of lumbar region without myelopathy or radiculopathy Spontaneous pneumothorax Surgical History History of hernia surgery Social History Social History Housing: Condominium Do you presently have visiting nurse or other home services: No Alcohol intake: never Patient Tobacco Use Status: Never used Tobacco Use of substances other than those prescribed or required for medical reasons: No Advance Directives: Yes Advance Directives on File: Yes Advance Directives Date on File: 03/12/21 Patient : No service: No Current occupational status: unemployed
[2021-04-25] MEDS: methylPREDNISolone Sod Succ 125 MG/2 ML VIAL IVPUSH (22:34)
[2021-04-25] MEDS: 0.9 % Sodium Chloride 1,000 ML 999 ML IVCONT (22:34)
[2021-04-25] MEDS: Morphine Sulfate 4 MG/ML CARTRIDGE IVPUSH (22:34)
--- NOTE | 2021-04-25 22:34 | PC.NURSE ---
Pt was scanned several times to administer meds however scan was not working. Pt's meds with verified by this RN and PILAR Stewart [place] [facility] [place] medicated per MAR
--- NOTE | 2021-04-25 22:40 | PC.NURSE ---
Pt reports she gets itchy and sometimes hives when she takes zofran, requesting benadryl to be administered with zofran. Dr Hutson is aware, v/o for 25mg iv benadryl
[2021-04-25] MEDS: ondansetron HCL 4 MG/2 ML VIAL IVPUSH (22:45)
[2021-04-25] MEDS: diphenhydrAMINE HCL 50 MG/ML VIAL 25 MG IVPUSH (22:45)
[2021-04-25 23:14] LABS: Alanine Aminotransferase 17 U/L (0-31); Albumin Level 4.6 g/dL (3.5-5.0); Alkaline Phosphatase 73 U/L (39-117); Anion Gap 18 (12-20); Aspartate Amino Transferase 26 U/L (5-31); Bilirubin Total 0.7 mg/dL (0.0-1.0); Blood Urea Nitrogen 20 mg/dL (9-16); Calcium 9.4 mg/dL (8.4-10.2); Carbon Dioxide 23 mmol/L (22-29); Chloride 101 mmol/L (96-108); Creatinine Clr Calc Pharmacy 68.7; Estimated Glomerular Filt Rate > 60; Glucose Random 126 mg/dL (60-115); Potassium 3.8 mmol/L (3.3-5.1); Sodium 138 mmol/L (135-145)
[2021-04-25 23:17] LABS: C Reactive Protein 2.55 mg/dL (< or = 0.50); Lipase 4 U/L (8-78)
[2021-04-25 23:51] LABS: Erythrocyte Sedimentation Rate 5 MM/HR (0-20)
[2021-04-26 00:28] VITALS: BP 109/55; PULSE 91; RESP 15; TEMP 37.2; O2SAT 95
[2021-04-26 00:50] LABS: OBS Int Ctl Valid YES; OBS1 NEGATIVE (NEGATIVE)
[2021-04-26] MEDS: Morphine Sulfate 2 MG/ML CARTRIDGE 1 MG IVPUSH (01:33)
--- NOTE | 2021-04-26 01:34 | PC.NURSE ---
medicated for pain managements per mar
[2021-04-26] MEDS: Nitrofurantoin Monohyd/M-Cryst 100 MG CAPSULE PO (02:42)
--- NOTE | 2021-04-26 02:44 | PC.NURSE ---
pt medicated per jul. Reviewed discharge instructions and medication. pt verbalized understanding.
[2021-04-26 02:45] VITALS: RESP 16
== END 2021-04-26 03:48 | disposition home or self-care (01) ==
PROVIDERS: Emergency Provider Emergency Medicine
DX: N39.0 Urinary tract infection, site not specified (principal); R10.84 Generalized abdominal pain; R11.2 Nausea with vomiting, unspecified; K50.90 Crohn's disease, unspecified, without complications
CPT/HCPCS: 36415; 74176; 80053; 81001; 81003; 82272; 83690; 85025; 85652; 86140; 87086; 96361; 96374; 96375; 99284; J1200; J2270; J2405; J2930

== ENCOUNTER 2021-05-11 15:41 | Outpatient (REF) | payer MEDICARE, MEDICAID, SELFPAY ==
--- NOTE | ~2021-05-11 | XR_ITS ---
EXAMINATION: 1. RADIOGRAPHS THORACIC SPINE 2. RADIOGRAPH LUMBAR SPINE CLINICAL INFORMATION: Acute back pain COMPARISON: CT abdomen pelvis 04/25/2021 and CTA chest 12/12/2020 TECHNIQUE: 3 views of the thoracic spine and 3 views of the lumbar spine were obtained. FINDINGS: Thoracic spine: Minimal dextroscoliosis of the thoracic spine centered at T6, possibly positional. Thoracic vertebral body heights are maintained. There is only minimal narrowing of a few scattered thoracic disc spaces. A few tiny osteophytes are present throughout the thoracic spine. Visualized lung parenchyma is well aerated. Partially visualized abdominal port. Lumbar there are 6 nonrib-bearing lumbar style vertebral bodies. With numbering as such, there is minimal anterolisthesis of L6 on S1 which appears stable. Lumbar vertebral body heights are maintained. There is mild narrowing of lumbar disc spaces diffusely. Minimal degenerative changes of the posterior elements of the lower lumbar spine. Partially visualized abdominal port. Surgical clips of the left abdomen. XR/XR thoracic spine 3V IMPRESSION: -Mild diffuse degenerative changes of the thoracic spine without compression deformity. -Mild diffuse degenerative changes of the lumbar spine without compression deformity. -There appears to be 6 nonrib-bearing lumbar style vertebral bodies. If intervention is planned, complete imaging of the spine is recommended for accurate spine level numbering.
--- NOTE | ~2021-05-11 | XR_ITS ---
EXAMINATION: 1. RADIOGRAPHS THORACIC SPINE 2. RADIOGRAPH LUMBAR SPINE CLINICAL INFORMATION: Acute back pain COMPARISON: CT abdomen pelvis 04/25/2021 and CTA chest 12/12/2020 TECHNIQUE: 3 views of the thoracic spine and 3 views of the lumbar spine were obtained. FINDINGS: Thoracic spine: Minimal dextroscoliosis of the thoracic spine centered at T6, possibly positional. Thoracic vertebral body heights are maintained. There is only minimal narrowing of a few scattered thoracic disc spaces. A few tiny osteophytes are present throughout the thoracic spine. Visualized lung parenchyma is well aerated. Partially visualized abdominal port. Lumbar there are 6 nonrib-bearing lumbar style vertebral bodies. With numbering as such, there is minimal anterolisthesis of L6 on S1 which appears stable. Lumbar vertebral body heights are maintained. There is mild narrowing of lumbar disc spaces diffusely. Minimal degenerative changes of the posterior elements of the lower lumbar spine. Partially visualized abdominal port. Surgical clips of the left abdomen. XR/XR lumbar spine 2-3V IMPRESSION: -Mild diffuse degenerative changes of the thoracic spine without compression deformity. -Mild diffuse degenerative changes of the lumbar spine without compression deformity. -There appears to be 6 nonrib-bearing lumbar style vertebral bodies. If intervention is planned, complete imaging of the spine is recommended for accurate spine level numbering.
== END 2021-05-11 15:42 | disposition home or self-care (01) ==
LOC: HO.XRAY 15:41
PROVIDERS: PCP Registered Nurse; Visit Provider Registered Nurse
DX: M54.50 Low back pain, unspecified (principal); M54.9 Dorsalgia, unspecified; Z88.1 Allergy status to other antibiotic agents; Z88.0 Allergy status to penicillin; Z88.2 Allergy status to sulfonamides; Z88.8 Allergy status to other drugs, medicaments and biological substances; Z95.828 Presence of other vascular implants and grafts
CPT/HCPCS: 72072; 72100

== ENCOUNTER → 2021-05-13 08:34 | Outpatient (BNVA) | payer MEDICARE, MEDICAID, SELFPAY | PROVIDERS: Visit Provider Anesthesiology | DX: Z51.81 Encounter for therapeutic drug level monitoring (principal); M35.2 Behcet's disease; K50.918 Crohn's disease, unspecified, with other complication; M54.2 Cervicalgia; M54.9 Dorsalgia, unspecified; G89.4 Chronic pain syndrome | CPT/HCPCS: 99212 ==

== ENCOUNTER 2021-06-01 13:39 | Outpatient (REF) | payer MEDICARE, MEDICAID, SELFPAY ==
--- NOTE | ~2021-06-01 | XR_ITS ---
EXAMINATION: XR SACRUM AND COCCYX CLINICAL INFORMATION: Contusion lower back. COMPARISON: None TECHNIQUE: 2 views of the sacrum and 2 views of the coccyx were obtained. FINDINGS: There is normal symmetry of bilateral SI joints. No fracture, dislocation or subluxation seen. The presacral and a postsurgical soft tissues are normal. XR/XR sacrum coccyx min 2V IMPRESSION: Unremarkable sacrum and coccyx exam.
== END 2021-06-01 13:40 | disposition home or self-care (01) ==
LOC: HO.HMGCX 13:39
PROVIDERS: PCP Registered Nurse; Visit Provider Internal Medicine
DX: S20.229A Contusion of unspecified back wall of thorax, initial encounter (principal); X58.XXXA Exposure to other specified factors, initial encounter; Y93.9 Activity, unspecified; Y92.9 Unspecified place or not applicable; Y99.8 Other external cause status
CPT/HCPCS: 72220

== ENCOUNTER 2021-06-11 06:44 | Emergency (ER) | payer MEDICARE, MEDICAID, SELFPAY ==
[2021-06-11] VITALS (7 sets, daily range): BP systolic 91–124; BP diastolic 57–71; PULSE 71–93; RESP 16–20; TEMP 36.6–37; O2SAT 93–99; BMI 25.7
--- NOTE | ~2021-06-11 | CT_ITS ---
EXAMINATION: CT ABDOMEN AND PELVIS WITH CONTRAST CLINICAL INFORMATION: Generalized abdominal pain. COMPARISON: April 25, 2021 TECHNIQUE: Multidetector volumetric images were obtained from the superior aspect of the liver through the pubic symphysis following administration 85 mL of Omnipaque 350 intravenous contrast. Sagittal and coronal reformatted images were obtained on the technologist's workstation. Oral contrast: No This CT examination was performed using dose optimization techniques as appropriate, variously including the following: *Automated exposure control *Adjustment of mA and/or kV according to patient size (this includes techniques or standardized protocols for targeted exams where dose is matched to indication/reason for exam; i.e. extremities or head) *Use of iterative reconstruction technique DLP: 454 mGy-cm FINDINGS: LUNG BASES: Heart normal size. No pleural or pericardial effusion. There is chronic pleural-parenchymal disease at the left base with some thickened pleura and subpleural calcifications. LIVER, GALLBLADDER, AND BILIARY TREE: The liver is normal in size, shape, and attenuation. No focal hepatic lesion or biliary ductal dilatation is present. The gallbladder is unremarkable with no evidence of radiopaque gallstones, gallbladder wall thickening, or obvious pericholecystic inflammatory changes. PANCREAS: Unremarkable. SPLEEN: Unremarkable. ADRENAL GLANDS: Unremarkable. KIDNEYS AND URETERS: The kidneys are normal in size, shape, and attenuation. No hydronephrosis, hydroureter, or calculi seen. No perinephric stranding. There is a subcentimeter angiomyolipomas seen upper pole of the left kidney. BLADDER: Unremarkable. GASTROINTESTINAL TRACT: No dilated loops of large or small bowel are evident. No free air is present. No free fluid is seen. There is again noted to be some wall thickening involving the descending colon, splenic flexure, and portions of the proximal right colon with the right colon prominence being more than was seen on study of March 12, 2021. There is some slight wall irregularity of the proximal ascending colon which was not definitely seen on prior study of March 12, 2021. There is question of some thickening of the wall of the terminal ileum but with no adjacent fluid collection or inflammatory change. There is minimal pericolonic fat stranding seen about the descending colon and sigmoid colon. ABDOMINAL WALL: Left anterior mesh seen in place. There is again noted to be a small fat-containing supraumbilical hernia. There is diastases of the rectus muscles by approximately 5 cm in the supraumbilical region.. LYMPH NODES: No lymphadenopathy appreciated. VASCULAR: Portal vein and visceral arteries are patent. There is a right sided translumbar central venous catheter in place with tip at the entrance of the inferior vena cava and right atrium. Vascular collaterals are seen about the abdominal wall. PELVIC VISCERA: No definite abnormal mass appreciated. There is a 1 cm right adnexal cyst. OSSEOUS STRUCTURES: No suspicious destructive bony lesion identified. Degenerative disc disease with mild grade 1 spondylolisthesis seen at the L5-S1 level. CT/CT abdomen pelvis w con IMPRESSION: No evidence of ileus or obstruction. No evidence of free intra-abdominal gas. Thickened colonic wall in multiple areas as described with minimal wall irregularity/pericolonic fat stranding. The right colon wall thickening is more prominent than on prior studies. No abnormal fluid collection/abscess identified. Question terminal ileum wall thickening but without adjacent inflammatory change or fluid collection. Anterior abdominal wall fat-containing hernia.
--- NOTE | 2021-06-11 08:44 | ED.ABDPAIN ---
HPI - Abdominal Pain General Chief Complaint: Abdominal Pain Stated Complaint: abdominal pain Time Seen by Provider: 06/11/21 08:24 Source: patient Mode of arrival: EMS Limitations: no limitations History of Present Illness HPI narrative: Patient is a 40-year-old female with a past medical history significant for Crohn's disease, Behcet's disease, gastroparesis, chronic abdominal pain for which she is prescribed chronic opiates, and receives TPN infusions at home via port. She has a history of abdominal hernia's and fistula repairs per her report. She reports sudden onset of severe lower abdominal pain overnight, located in lower abdomen worse on the left side. There is associated nausea, denies any vomiting. She has been having small loose stools since the onset of her pain. The pain is described as sharp, and twisting, which is intermittent, ?comes in waves?. At home she is prescribed IV Zofran, IV Benadryl, and oral hydromorphone 4 mg 3 times daily. She reports last having taken her hydromorphone last night without significant relief. She denies any fevers, chills, chest pain, palpitations, shortness of breath, difficulty breathing, cough, myalgias, dysuria, urinary frequency/urgency/hesitancy, bloody or dark stools. She is followed by [facility] gastroenterology Dr. Valdivia. MD elicited complaint: abdominal pain Onset (ago): hour(s) Pain Consistency: intermittent Location: RLQ and LLQ Severity: severe Pain scale (0-10): 10 Quality: sharp Exacerbating factors: nothing Relieving factors: nothing Associated symptoms: nausea Treatments prior to arrival: prescription analgesics Related Data Home Medications Medication Instructions Recorded Confirmed promethazine 25 mg tablet 25 mg PO QID PRN 04/02/20 03/12/21 tizanidine 4 mg tablet 4 mg PO TID PRN 04/02/20 03/12/21 apixaban 5 mg tablet (Eliquis) 5 mg PO BID 09/22/20 03/12/21 albuterol sulfate 90 mcg/actuation 2 puff INHALATION Q4H PRN 12/12/20 03/12/21 aerosol inhaler fluticasone furoate 200 1 inh INHALATION Q24H 12/12/20 03/12/21 mcg-vilanterol 25 mcg/dose inhalation powder (Breo Ellipta) levetiracetam 100 mg/mL oral 7 ml PO BID 12/12/20 03/12/21 solution umeclidinium 62.5 mcg/actuation 1 inh INHALATION DAILY 12/12/20 03/12/21 blister powder for inhalation (Incruse Ellipta) acetaminophen 325 mg tablet 650 mg PO Q4H PRN 03/12/21 03/12/21 diphenhydramine HCl 50 mg/mL 25 mg IV QID PRN 03/12/21 03/12/21 injection solution ondansetron HCl (PF) 4 mg/2 mL 4 mg IV TID PRN 03/12/21 03/12/21 injection solution Previous Rx's Medication Instructions Recorded prednisone 5 mg tablet See Taper PO DAILY #252 tab 03/16/21 nitrofurantoin 100 mg PO Q12H 7 Days #14 cap 04/26/21 monohydrate/macrocrystals 100 mg capsule (Macrobid) hydromorphone 4 mg tablet 4 mg PO TID PRN 30 Days #90 tab 05/13/21 nitrofurantoin 100 mg PO BID 7 Days #14 cap 06/11/21 monohydrate/macrocrystals 100 mg capsule (Macrobid) prednisone 20 mg tablet 40 mg PO DAILY 7 Days #14 tab 06/11/21 Allergies Allergy/AdvReac Type Severity Reaction Status Date / Time ciprofloxacin [Cipro] Allergy Unknown unknown Verified 06/11/21 07:39 levofloxacin [Levaquin] Allergy Unknown unknown Verified 06/11/21 07:39 metoclopramide [Reglan] Allergy Unknown unknown Verified 06/11/21 07:39 ondansetron [Zofran] Allergy Unknown unknown Verified 06/11/21 07:39 penicillin V Allergy Unknown unknown Verified 06/11/21 07:39 Sulfa (Sulfonamide Allergy Unknown unknown Verified 06/11/21 07:39 Antibiotics) prochlorperazine Allergy unknown Verified 06/11/21 07:39 [From Compazine] thalidomide [From Thalomid] Allergy unknown Verified 06/11/21 07:39 Review of Systems Review of Systems Constitutional : No Weight loss, No Fever, No Chills ENT/Mouth :? No sore throat, No Rhinorrhea Eyes: No Swelling, No Redness Cardiovascular : No Chest Pain, No SOB, No Edema Respiratory : No Cough, No Sputum, No Wheezing Gastrointestinal : + nausea, + abdominal pain. No vomiting.No Hematochezia, No Melena Genitourinary : No Dysuria, No Urinary Frequency, No Hematuria, No Urgency? Musculoskeletal : No joint pain, No Myalgias, No Joint Swelling Skin : No Skin Lesions, No rash Neuro : No Weakness, No Numbness, No Dizziness, No Headache Psych : No Anxiety/Panic, No Depression Heme/Lymph: No Bruising, No Lymphadenopathy Endocrine : No Polyuria, No Polydipsia All other systems reviewed and are negative. Physical Exam Vital Signs: Vital Signs: Last Vital Signs Temp 97.9 F 06/11/21 15:35 Pulse 93 06/11/21 15:35 Resp 20 06/11/21 15:35 BP 116/60 06/11/21 15:35 Pulse Ox 99 06/11/21 15:35 BMI result Body Mass Index 25.7 Vital signs have been reviewed as normal and appeared to be correct. Blood pressure low, 91/71 likely secondary to dehydration,iimproved with IV fluid to 107/57. Heart rate normal.? Respiration rate normal. Temperature normal.? Oxygen saturation normal. Appearance: Alert.?Oriented to person, place and time. No acute distress.?Normal affect. Eyes: Pupils equal, round and reactive to light.? ENT: Pharynx normal.?? Neck: Normal inspection.? Neck supple.?? CVS: Heart sounds normal. Normal heart rate and rhythm.? Pulses normal.?? Respiratory: No respiratory distress.? Lung sounds clear to auscultation bilaterally?? Abdomen: + soft, significant LLQ tenderness, mild diffuse tenderness. Hypooactive bowel sounds. No pulsatile mass.?? Skin: Skin warm and dry.? Normal skin color.? Extremities: No lower extremity edema.? Neuro: Moves all extremities spontaneously. Sensation intact bilaterally. No focal neuro deficits. Course Course Course Narrative: Patient is a 40-year-old female who presents emergency department for evaluation of sudden onset abdominal pain last night, small loose stools, and nausea. She does admit to a history of chronic abdominal pain, however she is unable to discern whether her current pain is similar or different from her usual pain. She presented with a blood pressure 91/71, heart rate 71, afebrile 98.3, and O2 saturation 95% on room air. Given her significant abdominal tenderness on examination, I am concerned for a diverticulitis or bowel obstruction, therefore CT of the abdomen has been ordered. She is to receive 1L of IV fluid, IV Zofran, IV Benadryl, and hydromorphone 1 mg IV. Serum labs, urinalysis, urine to be obtained. Disposition pending results. Reevaluation(s) Reevaluation #1: CBC reveals leukocytosis, 15.6 with neutrophilia 92.3, Urinalysis positive for nitrates. Suspect bacterial infection, blood pressure borderline, will obtain blood cultures and lactic acid. Will treat for urinary tract infection with ceftriaxone. Time: 11:00 Reevaluation #2: She continues to report lower abdominal pain, 12/30, will provide another dose of hydromorphone 1 mg IV. Reports that she has had 2 episodes of diarrhea while in the emergency department, no vomiting. Lactic acid not elevated. CT finding reveals thickened colonic wall in multiple areas with minimal wall irregularity/pericolonic fat stranding and question terminal ileum wall thickening without adjacent inflammatory change or fluid collection. Reached out to Dr. Wallace from GI for input Time: 14:10 Reevaluation #3: Spoke with Dr. Wallace from GI, advised no concern for abscess or infection advised to obtain a CRP level which is normal. Pain is currently 7/10. On speaking with patient, she endorses that at baseline she has minimal p.o. intake at home, occasionally drinks water and Gatorade, TPN as main source of nutrition. Reviewed all the results. Discussed discharge home with course of oral steroids for treatment of possible Crohn's flare and outpatient follow-up with GI, and Macrobid for urinary tract infection given her allergies, reviewed with patient return precautions. Patient is agreeable with this plan. Time: 16:29 MDM - Abdominal Pain Medical Records Attestation: I reviewed the patient's medical records. Lab Data Attestation: I reviewed the patient's lab results. Result diagrams: 06/11/21 10:35 06/11/21 10:35 Labs: Lab Results 06/11/21 06/11/21 06/11/21 Range/Units 09:39 09:39 10:35 WBC 15.6 H (4.8-10.8) X10*3/uL RBC 4.78 (4.20-5.50) X10*6/uL Hgb 14.1 (12.0-16.0) g/dl Hct 42.1 (37.0-47.0) % MCV 88.1 (80.0-98.0) fL MCH 29.5 (27.0-33.0) pg MCHC 33.5 (31.0-35.0) g/dl RDW 12.8 (11.0-16.0) % Plt Count 250 D (160-400) X10*3/uL MPV 10.0 (9.4-12.3) fL Immature Gran % (Auto) 0.3 (0.0-0.4) % Neut % (Auto) 92.3 H (45-73) % Lymph % (Auto) 3.1 L (20-40) % [place] % (Auto) 4.1 (2-11) % Eos % (Auto) 0.1 (0-4) % Baso % (Auto) 0.1 (0-2) % Lymph # (Auto) 0.5 L (1.2-4.9) X10*3/uL [place] # (Auto) 0.6 (0.1-1.2) X10*3/uL Eos # (Auto) 0.0 (0.0-0.4) X10*3/uL Baso # (Auto) 0.0 (0.0-0.2) X10*3/uL Abs Immat Gran (auto) 0.05 H (0.00-0.03) X10*3/uL Absolute Neuts (auto) 14.4 H (2.0-8.3) x10*3/uL Absolute Nucleated RBC 0.000 (0.0-0.012) X10*3/uL Nucleated RBC % (auto) 0.0 (0.0-0.2) /100WBC Smear Tech's Comments VERIFIED Sodium (135-145) mmol/L Potassium (3.3-5.1) mmol/L Chloride (96-108) mmol/L Carbon Dioxide (22-29) mmol/L Anion Gap (12-20) BUN (9-16) mg/dL Creatinine (0.5-1.4) mg/dL Estim Creat Clear Calc Estimated GFR Random Glucose (60-115) mg/dL Lactic Acid (0.5-2.0) mmol/L Calcium (8.4-10.2) mg/dL Total Bilirubin (0.0-1.0) mg/dL Direct Bilirubin (0.0-0.5) mg/dL AST (5-31) U/L ALT (0-31) U/L Alkaline Phosphatase (39-117) U/L Troponin I High Sens (<3.5-17.0) ng/L C-Reactive Protein (< or = 0.50) mg/dL Total Protein (6.5-8.0) g/dL Albumin (3.5-5.0) g/dL Lipase (8-78) U/L Urine Color DK YELLOW Urine Appearance HAZY Urine pH 5.5 (5.0-8.0) Ur Specific [place] >= 1.030 H (1.005-1.025) Urine Protein NEG (NEG-TRACE) MG/DL Urine Glucose (UA) NEG (NEG) MG/DL Urine Ketones 5 (NEG) MG/DL Urine Blood NEG (NEG) Urine Nitrite POS H (NEG) Ur Leukocyte Esterase NEG (NEG) Urine RBC 0 (0) /HPF Urine WBC 0-2 (0-4) /HPF Ur Squamous Epith Cells NONE /LPF Uric Acid Crystals 2+ /LPF Urine Bacteria TRACE /LPF Urine Test NEGATIVE (NEGATIVE) COVID-19 ([facility]NA) (Negative) COVID-19 Clin Com 06/11/21 06/11/21 06/11/21 Range/Units 10:35 10:35 12:30 WBC (4.8-10.8) X10*3/uL RBC (4.20-5.50) X10*6/uL Hgb (12.0-16.0) g/dl Hct (37.0-47.0) % MCV (80.0-98.0) fL MCH (27.0-33.0) pg MCHC (31.0-35.0) g/dl RDW (11.0-16.0) % Plt Count (160-400) X10*3/uL MPV (9.4-12.3) fL Immature Gran % (Auto) (0.0-0.4) % Neut % (Auto) (45-73) % Lymph % (Auto) (20-40) % [place] % (Auto) (2-11) % Eos % (Auto) (0-4) % Baso % (Auto) (0-2) % Lymph # (Auto) (1.2-4.9) X10*3/uL [place] # (Auto) (0.1-1.2) X10*3/uL Eos # (Auto) (0.0-0.4) X10*3/uL Baso # (Auto) (0.0-0.2) X10*3/uL Abs Immat Gran (auto) (0.00-0.03) X10*3/uL Absolute Neuts (auto) (2.0-8.3) x10*3/uL Absolute Nucleated RBC (0.0-0.012) X10*3/uL Nucleated RBC % (auto) (0.0-0.2) /100WBC Smear Tech's Comments Sodium 142 (135-145) mmol/L Potassium 4.2 (3.3-5.1) mmol/L Chloride 105 (96-108) mmol/L Carbon Dioxide 26 (22-29) mmol/L Anion Gap 15 (12-20) BUN 18 H (9-16) mg/dL Creatinine 0.83 (0.5-1.4) mg/dL Estim Creat Clear Calc 71.4 Estimated GFR > 60 Random Glucose 104 (60-115) mg/dL Lactic Acid 1.0 (0.5-2.0) mmol/L Calcium 9.7 (8.4-10.2) mg/dL Total Bilirubin 0.5 (0.0-1.0) mg/dL Direct Bilirubin 0.2 (0.0-0.5) mg/dL AST 21 (5-31) U/L ALT 14 (0-31) U/L Alkaline Phosphatase 72 (39-117) U/L Troponin I High Sens < 3.5 (<3.5-17.0) ng/L C-Reactive Protein 0.30 (< or = 0.50) mg/dL Total Protein 7.4 (6.5-8.0) g/dL Albumin 4.6 (3.5-5.0) g/dL Lipase 10 (8-78) U/L Urine Color Urine Appearance Urine pH (5.0-8.0) Ur Specific [place] (1.005-1.025) Urine Protein (NEG-TRACE) MG/DL Urine Glucose (UA) (NEG) MG/DL Urine Ketones (NEG) MG/DL Urine Blood (NEG) Urine Nitrite (NEG) Ur Leukocyte Esterase (NEG) Urine RBC (0) /HPF Urine WBC (0-4) /HPF Ur Squamous Epith Cells /LPF Uric Acid Crystals /LPF Urine Bacteria /LPF Urine Test (NEGATIVE) COVID-19 ([facility]NA) (Negative) COVID-19 Clin Com 06/11/21 Range/Units 15:45 WBC (4.8-10.8) X10*3/uL RBC (4.20-5.50) X10*6/uL Hgb (12.0-16.0) g/dl Hct (37.0-47.0) % MCV (80.0-98.0) fL MCH (27.0-33.0) pg MCHC (31.0-35.0) g/dl RDW (11.0-16.0) % Plt Count (160-400) X10*3/uL MPV (9.4-12.3) fL Immature Gran % (Auto) (0.0-0.4) % Neut % (Auto) (45-73) % Lymph % (Auto) (20-40) % [place] % (Auto) (2-11) % Eos % (Auto) (0-4) % Baso % (Auto) (0-2) % Lymph # (Auto) (1.2-4.9) X10*3/uL [place] # (Auto) (0.1-1.2) X10*3/uL Eos # (Auto) (0.0-0.4) X10*3/uL Baso # (Auto) (0.0-0.2) X10*3/uL Abs Immat Gran (auto) (0.00-0.03) X10*3/uL Absolute Neuts (auto) (2.0-8.3) x10*3/uL Absolute Nucleated RBC (0.0-0.012) X10*3/uL Nucleated RBC % (auto) (0.0-0.2) /100WBC Smear Tech's Comments Sodium (135-145) mmol/L Potassium (3.3-5.1) mmol/L Chloride (96-108) mmol/L Carbon Dioxide (22-29) mmol/L Anion Gap (12-20) BUN (9-16) mg/dL Creatinine (0.5-1.4) mg/dL Estim Creat Clear Calc Estimated GFR Random Glucose (60-115) mg/dL Lactic Acid (0.5-2.0) mmol/L Calcium (8.4-10.2) mg/dL Total Bilirubin (0.0-1.0) mg/dL Direct Bilirubin (0.0-0.5) mg/dL AST (5-31) U/L ALT (0-31) U/L Alkaline Phosphatase (39-117) U/L Troponin I High Sens (<3.5-17.0) ng/L C-Reactive Protein (< or = 0.50) mg/dL Total Protein (6.5-8.0) g/dL Albumin (3.5-5.0) g/dL Lipase (8-78) U/L Urine Color Urine Appearance Urine pH (5.0-8.0) Ur Specific [place] (1.005-1.025) Urine Protein (NEG-TRACE) MG/DL Urine Glucose (UA) (NEG) MG/DL Urine Ketones (NEG) MG/DL Urine Blood (NEG) Urine Nitrite (NEG) Ur Leukocyte Esterase (NEG) Urine RBC (0) /HPF Urine WBC (0-4) /HPF Ur Squamous Epith Cells /LPF Uric Acid Crystals /LPF Urine Bacteria /LPF Urine Test (NEGATIVE) COVID-19 ([facility]NA) Negative (Negative) COVID-19 Clin Com See Note Imaging Data CT scan - abdomen: Attestation: I personally reviewed and interpreted this imaging study as follows: Radiologist's impression: IMPRESSION: No evidence of ileus or obstruction. No evidence of free intra-abdominal gas. ? Thickened colonic wall in multiple areas as described with minimal wall irregularity/pericolonic fat stranding. The right colon wall thickening is more prominent than on prior studies. No abnormal fluid collection/abscess identified. Question terminal ileum wall thickening but without adjacent inflammatory change or fluid collection. ? Anterior abdominal wall fat-containing hernia. Discharge Plan Discharge Clinical Impression: Crohn's disease, Abdominal pain, Urinary tract infection Patient Disposition: Home, Self-Care Instructions: Crohn Disease (ED), Urinary Tract Infection in Women (ED) Additional Instructions: Evaluated in the emergency department for your abdominal pain. We are going to have urinary tract infection for which have been given a prescription for Macrobid to take twice a day for 7 days. In addition as we discussed, you will be given a new prescription for prednisone to take daily for a possible Crohn's flare. You should contact your flavoring maker, and primary care provider tomorrow morning to schedule follow-up appointment for early next week. Please be sure to stay well hydrated. Please return to the emergency department with any new or worsening symptoms or concerns. Prescriptions: New prednisone 20 mg tablet 40 mg PO DAILY 7 Days Qty: 14 RF: 0 nitrofurantoin monohyd/m-cryst [Macrobid] 100 mg capsule 100 mg PO BID 7 Days Qty: 14 RF: 0 No Action levetiracetam 100 mg/mL solution 7 ml PO BID RF: 0 albuterol sulfate 90 mcg/actuation Hfa Aerosol Inhaler 2 puff INHALATION Q4H PRN (Reason: Wheezing) RF: 0 Incruse Ellipta 62.5 mcg/actuation Blister With Device 1 inh INHALATION DAILY RF: 0 Breo Ellipta 200-25 mcg/dose Blister With Device 1 inh INHALATION Q24H RF: 0 diphenhydramine HCl 50 mg/mL solution 25 mg IV QID PRN (Reason: Nausea) RF: 0 ondansetron HCl (PF) 4 mg/2 mL solution 4 mg IV TID PRN (Reason: Nausea) RF: 0 acetaminophen 325 mg Tablet 650 mg PO Q4H PRN (Reason: Pain) RF: 0 prednisone 5 mg tablet See Taper mg PO DAILY Qty: 252 RF: 0 nitrofurantoin monohyd/m-cryst [Macrobid] 100 mg capsule 100 mg PO Q12H 7 Days Qty: 14 RF: 0 tizanidine 4 mg tablet 4 mg PO TID PRN (Reason: Muscle Spasm) RF: 0 promethazine 25 mg tablet 25 mg PO QID PRN (Reason: nausea) RF: 0 Eliquis 5 mg tablet 5 mg PO BID RF: 0 hydromorphone 4 mg tablet 4 mg PO TID PRN (Reason: pain) 30 Days Qty: 90 RF: 0 Interventions: ED Discharge Assessment Last Done: 06/11/21 17:05 Discharge Date/Time: 06/11/21 17:06 [facility] Past Medical History Attestation statement: The following information was validated with the patient. Source: old records reviewed Medical History Abdominal pain Abdominal pain, chronic, generalized Asthma Behcet's disease Cervicalgia Chronic pain syndrome Common variable immunodeficiency Crohn's disease Gastroparesis Low back pain Pyloric stenosis Spondylolisthesis, lumbar region Spondylosis of lumbar region without myelopathy or radiculopathy Spontaneous pneumothorax Surgical History History of hernia surgery Social History Social History Housing: Condominium Do you presently have visiting nurse or other home services: No Alcohol intake: never Patient Tobacco Use Status: Never used Tobacco Use of substances other than those prescribed or required for medical reasons: No Advance Directives: No Advance Directives Information Provided: No Advance Directives Date on File: 03/12/21 service: No Current occupational status: unemployed
[2021-06-11 09:48] LABS: UPreg QC Valid YES; Urine Pregnancy NEGATIVE (NEGATIVE)
[2021-06-11 09:50] LABS: Appearance Urine HAZY; Color Urine DK YELLOW; Glucose Urine UA NEG (NEG); Leukocyte Esterase Urine NEG (NEG); Nitrite Urine POS (NEG); PH 5.5 (5.0-8.0); Specific Gravity - Urine >= 1.030 (1.005-1.025); UACC Culture Trigger YES; Urine Blood NEG (NEG); Urine Ketones 5 MG/DL (NEG); Urine Protein NEG (NEG-TRACE)
[2021-06-11 10:11] LABS: WBC Urine 0-2 /HPF (0-4)
[2021-06-11 10:13] LABS: Uric Acid Crystals Urine 2+ /LPF
[2021-06-11 10:14] LABS: Bacteria Urine TRACE /LPF; RBC Urine 0 /HPF (0)
[2021-06-11 10:46] LABS: Basophils Percent Auto 0.1 % (0-2); Eosinophils Percent Auto 0.1 % (0-4); Hematocrit 42.1 % (37.0-47.0); Hemoglobin 14.1 g/dl (12.0-16.0); Imm Gran Abs Auto 0.05 X10*3/uL (0.00-0.03); Imm Gran Pct Auto 0.3 % (0.0-0.4); Lymphocytes Absolute Auto 0.5 X10*3/uL (1.2-4.9); Lymphocytes Percent Auto 3.1 % (20-40); MANUAL DIFF FLAG SCAN; Mean Corpuscular HGB Conc 33.5 g/dl (31.0-35.0); Mean Corpuscular Hemoglobin 29.5 pg (27.0-33.0); Mean Corpuscular Volume 88.1 fL (80.0-98.0); Monocytes Absolute Auto 0.6 X10*3/uL (0.1-1.2); Monocytes Percent Auto 4.1 % (2-11); Neutrophils Absolute Auto 14.4 x10*3/uL (2.0-8.3); Neutrophils Percent Auto 92.3 % (45-73); Platelet Count 250 X10*3/uL (160-400); Red Blood Count 4.78 X10*6/uL (4.20-5.50); Red Cell Distribution Width 12.8 % (11.0-16.0); SCAN SMEAR FLAG 1; White Blood Count 15.6 X10*3/uL (4.8-10.8)
[2021-06-11] MEDS: 0.9 % Sodium Chloride 1,000 ML 999 ML IV (10:48)
[2021-06-11] MEDS: diphenhydrAMINE HCL 50 MG/ML VIAL 25 MG IVPUSH (10:49)
[2021-06-11] MEDS: ondansetron HCL 4 MG/2 ML VIAL IVPUSH (10:49)
[2021-06-11 11:00] LABS: Alanine Aminotransferase 14 U/L (0-31); Albumin Level 4.6 g/dL (3.5-5.0); Alkaline Phosphatase 72 U/L (39-117); Anion Gap 15 (12-20); Aspartate Amino Transferase 21 U/L (5-31); Bilirubin Direct 0.2 mg/dL (0.0-0.5); Bilirubin Total 0.5 mg/dL (0.0-1.0); Blood Urea Nitrogen 18 mg/dL (9-16); Calcium 9.7 mg/dL (8.4-10.2); Carbon Dioxide 26 mmol/L (22-29); Chloride 105 mmol/L (96-108); Creatinine Clr Calc Pharmacy 71.4; Estimated Glomerular Filt Rate > 60; Glucose Random 104 mg/dL (60-115); Lipase 10 U/L (8-78); Potassium 4.2 mmol/L (3.3-5.1); Sodium 142 mmol/L (135-145); Total Protein 7.4 g/dL (6.5-8.0)
[2021-06-11 11:06] LABS: Troponin-I High Sensitivity < 3.5 ng/L (<3.5-17.0)
[2021-06-11 11:11] LABS: SLIDE REVIEW VERIFIED
[2021-06-11] MEDS: iohexoL 350 MG/ML 100 ML INFUS..BTL IV (11:48)
[2021-06-11] MEDS: HYDROmorphone HCl 1 MG/ML SYRINGE IVPUSH ×2 (12:01→15:44)
--- NOTE | 2021-06-11 12:08 | PC.NURSE ---
patient a&ox3, ambulated independently to bathroom, ivf continue to run slowly, pt medicated for pain, techs attempting to get blood cultures and VL
--- NOTE | 2021-06-11 13:24 | PC.NURSE ---
phlebotomy was called to attempt second blood cultures as ed staff was unable to get them, pts port is accessed but unable to draw off the port either.
[2021-06-11] MEDS: cefTRIAXone sodium 1 GM in 0.9 % Sodium Chloride 50 ML IV (14:28)
--- NOTE | 2021-06-11 14:30 | PC.NURSE ---
patient a&o, c/o 12/30 pain, vss, pt medicated per order, will continue to monitor
--- NOTE | 2021-06-11 15:47 | PC.NURSE ---
pt medicated for pain, vss, covid swab obtained
[2021-06-11 16:08] LABS: COVID-19 Test Negative (Negative); IDNOW Serial# 55D5AD1C
== END 2021-06-11 17:06 | disposition home or self-care (01) ==
PROVIDERS: Nurse Practitioner Family; Emergency Provider Emergency Medicine Emergency Medical Services; PCP Registered Nurse
DX: K50.90 Crohn's disease, unspecified, without complications (principal); R10.30 Lower abdominal pain, unspecified; N39.0 Urinary tract infection, site not specified; Z20.822 Contact with and (suspected) exposure to COVID-19; R11.0 Nausea
CPT/HCPCS: 36415; 74177; 80048; 80076; 81001; 81025; 83605; 83690; 84484; 85025; 86140; 87040; 87086; 87635; 96361; 96365; 96375; 96376; 99284; J0696; J1170; J1200; J2405; Q9967

== ENCOUNTER → 2021-06-17 08:19 | Outpatient (BNVA) | payer MEDICARE, MEDICAID, SELFPAY | PROVIDERS: PCP Registered Nurse; Visit Provider Anesthesiology | DX: Z51.81 Encounter for therapeutic drug level monitoring (principal); F11.20 Opioid dependence, uncomplicated; M35.2 Behcet's disease; M54.50 Low back pain, unspecified; M54.2 Cervicalgia; G89.4 Chronic pain syndrome; K50.918 Crohn's disease, unspecified, with other complication | CPT/HCPCS: 99212 ==

== ENCOUNTER → 2021-07-15 08:46 | Outpatient (BNVA) | payer MEDICARE, MEDICAID, SELFPAY | PROVIDERS: PCP Registered Nurse; Visit Provider Anesthesiology | DX: Z51.81 Encounter for therapeutic drug level monitoring (principal); F11.20 Opioid dependence, uncomplicated; M35.2 Behcet's disease; M54.50 Low back pain, unspecified; M54.2 Cervicalgia; G89.4 Chronic pain syndrome; K50.918 Crohn's disease, unspecified, with other complication | CPT/HCPCS: 99212 ==

== ENCOUNTER 2021-07-31 01:41 | Inpatient (IN) | payer MEDICARE, MEDICAID, SELFPAY ==
[2021-07-31] VITALS (8 sets, daily range): BP systolic 97–130; BP diastolic 55–74; PULSE 61–95; RESP 12–18; TEMP 36.6–37.1; O2SAT 93–98; BMI 26.2
--- NOTE | ~2021-07-31 | XR_ITS ---
EXAMINATION: XR CHEST CLINICAL INFORMATION: Shortness of breath COMPARISON: 12/12/2020 TECHNIQUE: Frontal view of the chest was obtained. FINDINGS: Lung volumes are low. Minimal left basilar opacity. Chronic appearing blunting at the left costophrenic angle suggestive of pleural thickening. No edema. No pneumothorax. The cardiomediastinal silhouette is within normal limits of size. XR/XR chest 1V IMPRESSION: Likely pleural thickening at the left base, similar to previous imaging. Minimal left basilar opacity favors atelectasis.
--- NOTE | ~2021-07-31 | CT_ITS ---
EXAMINATION: CT ABDOMEN AND PELVIS WITH CONTRAST CLINICAL INFORMATION: Lower abdominal pain, vomiting, history of Crohn's disease COMPARISON: 06/11/2021 TECHNIQUE: Multidetector volumetric images were obtained from the superior aspect of the liver through the pubic symphysis following administration 85 mL of Omnipaque 350 intravenous contrast. Sagittal and coronal reformatted images were obtained on the technologist's workstation. Oral contrast: No This CT examination was performed using dose optimization techniques as appropriate, variously including the following: *Automated exposure control *Adjustment of mA and/or kV according to patient size (this includes techniques or standardized protocols for targeted exams where dose is matched to indication/reason for exam; i.e. extremities or head) *Use of iterative reconstruction technique DLP: 467 mGy-cm FINDINGS: LUNG BASES: Mild bibasilar atelectasis versus scarring and pleural thickening noted. LIVER, GALLBLADDER, AND BILIARY TREE: The liver is normal in size, shape, and attenuation. No focal hepatic lesion or biliary ductal dilatation is present. The gallbladder is unremarkable with no evidence of radiopaque gallstones, gallbladder wall thickening, or obvious pericholecystic inflammatory changes. PANCREAS: Unremarkable. SPLEEN: Unremarkable. ADRENAL GLANDS: Unremarkable. KIDNEYS AND URETERS: Bilateral nephrograms are symmetric. No hydronephrosis or obstructing calculus identified. Tiny hypodensity in the upper left kidney favors a cyst. No follow-up recommended. BLADDER: Nearly empty and grossly unremarkable. GASTROINTESTINAL TRACT: There is a diffusely thick-walled appearance of the colon which is distended with fluid to varying degrees. No convincing evidence for bowel obstruction. There is mild mural prominence in the terminal ileum. Small bowel otherwise appears unremarkable. The appendix is unremarkable. No free fluid or free air is seen. ABDOMINAL WALL: No significant hernia is appreciated. Prominent subcutaneous veins in the anterior abdominal wall. LYMPH NODES: Normal. VASCULAR: Redemonstrated right translumbar central venous catheter into the IVC with tip at the level of the right atrium. PELVIC VISCERA: Unremarkable. OSSEOUS STRUCTURES: There is facet arthropathy in the lower lumbar spine. Degenerative endplate changes are present at L3-L4. CT/CT abdomen pelvis w con IMPRESSION: Diffusely thick-walled appearance of the colon, consistent with colitis. Mild mural prominence of the terminal ileum is also noted for which mild inflammation cannot be excluded in the setting of Crohn's disease. No convincing evidence for obstruction. Fleischner guidelines were followed.
[2021-07-31] MEDS: ondansetron HCL 4 MG/2 ML VIAL IVPUSH ×2 (02:17→21:14)
[2021-07-31] MEDS: HYDROmorphone HCl 1 MG/ML SYRINGE IVPUSH ×5 (02:17→16:15)
[2021-07-31] MEDS: 0.9 % Sodium Chloride 1,000 ML 999 ML IVCONT (02:18)
--- NOTE | 2021-07-31 02:26 | ED.ABDPAIN ---
HPI - Abdominal Pain General Chief Complaint: Abdominal Pain Stated Complaint: ABD/N/V Time Seen by Provider: 07/31/21 01:50 Source: patient and old records reviewed Mode of arrival: EMS Limitations: no limitations History of Present Illness MD elicited complaint: abdominal pain Pertinent past history: other (Behcet's disease, chronic abdominal pain, gastroparesis - TPN dependent) Onset (ago): day(s) (9pm on 07/30) Pain Consistency: constant Location: periumbilical and suprapubic Severity: severe Quality: stabbing Radiation: none Migration to: no migration Exacerbating factors: movement Relieving factors: nothing Context: history of similar episodes Associated symptoms: nausea and vomiting Treatments prior to arrival: other (gave herself dose of zofran and benadryl through her TPN line ORTHOPEDIC PHYSICIAN) Related Data Home Medications Medication Instructions Recorded Confirmed promethazine 25 mg tablet 25 mg PO QID PRN 04/02/20 07/31/21 tizanidine 4 mg tablet 4 mg PO TID PRN 04/02/20 07/31/21 apixaban 5 mg tablet (Eliquis) 5 mg PO BID 09/22/20 07/31/21 albuterol sulfate 90 mcg/actuation 2 puff INHALATION Q4H PRN 12/12/20 07/31/21 aerosol inhaler fluticasone furoate 200 1 inh INHALATION Q24H 12/12/20 07/31/21 mcg-vilanterol 25 mcg/dose inhalation powder (Breo Ellipta) levetiracetam 100 mg/mL oral 7 ml PO BID 12/12/20 07/31/21 solution umeclidinium 62.5 mcg/actuation 1 inh INHALATION DAILY 12/12/20 07/31/21 blister powder for inhalation (Incruse Ellipta) acetaminophen 325 mg tablet 650 mg PO Q4H PRN 03/12/21 07/31/21 diphenhydramine HCl 50 mg/mL 25 mg IV QID PRN 03/12/21 07/31/21 injection solution ondansetron HCl (PF) 4 mg/2 mL 4 mg IV TID PRN 03/12/21 07/31/21 injection solution Previous Rx's Medication Instructions Recorded hydromorphone 4 mg tablet 4 mg PO TID PRN 30 Days #90 tab 07/15/21 Allergies Allergy/AdvReac Type Severity Reaction Status Date / Time ciprofloxacin [Cipro] Allergy Unknown unknown Verified 07/15/21 09:05 levofloxacin [Levaquin] Allergy Unknown unknown Verified 07/15/21 09:05 metoclopramide [Reglan] Allergy Unknown unknown Verified 07/15/21 09:05 ondansetron [Zofran] Allergy Unknown unknown Verified 07/15/21 09:05 penicillin V Allergy Unknown unknown Verified 07/15/21 09:05 Sulfa (Sulfonamide Allergy Unknown unknown Verified 07/15/21 09:05 Antibiotics) prochlorperazine Allergy unknown Verified 07/15/21 09:05 [From Compazine] thalidomide [From Thalomid] Allergy unknown Verified 07/15/21 09:05 Review of Systems Review of Systems Constitutional : No Weight loss, No Fever, No Chills ENT/Mouth : No sore throat, No Rhinorrhea Eyes: No Swelling, No Redness Cardiovascular : No Chest Pain, No SOB, NoEdema Respiratory : No Cough, No Sputum, No Wheezing Gastrointestinal : Positive Nausea, Positive Vomiting, no Diarrhea, positive abdominal Pain, No Hematochezia, No Melena Genitourinary : No Dysuria, No Urinary Frequency, No Hematuria, No Urgency Musculoskeletal : No joint pain, No Myalgias, No Joint Swelling Skin : No Skin Lesions, No rash Neuro : No Weakness, No Numbness, No Dizziness, No Headache Psych : No Anxiety/Panic, No Depression Heme/Lymph: No Bruising, No Lymphadenopathy Endocrine : No Polyuria, No Polydipsia All other systems reviewed and are negative. [facility] Past Medical History Attestation statement: The following information was validated with the patient. Medical History (Updated 07/31/21 @ 05:33 by Cassie Shearer DO) Abdominal pain Abdominal pain, chronic, generalized Asthma Behcet's disease Cervicalgia Chronic pain syndrome Common variable immunodeficiency Crohn's disease DVT (deep venous thrombosis) Gastroparesis Low back pain Pyloric stenosis Spondylolisthesis, lumbar region Spondylosis of lumbar region without myelopathy or radiculopathy Spontaneous pneumothorax Surgical History History of hernia surgery Social History Social History Housing: Condominium Do you presently have visiting nurse or other home services: No Alcohol intake: never Patient Tobacco Use Status: Never used Tobacco Advance Directives: No Advance Directives Date on File: 03/12/21 service: No Current occupational status: unemployed Physical Exam ED Vital Signs: Vital Signs - 24 hr 07/31/21 01:50 07/31/21 05:25 Temperature 97.8 F Pulse Rate 78 85 Respiratory Rate 18 16 Blood Pressure 130/72 130/74 Pulse Oximetry 98 97 BMI result Body Mass Index 26.2 Appearance: Alert. Oriented X3. appears uncomfortable, mild acute distress. Eyes: Pupils equal, round and reactive to light. ENT: Pharynx mildly dry Neck: Normal inspection. Neck supple. CVS: Normal heart rate and rhythm. Pulses normal. Respiratory: No respiratory distress. Breath sounds normal. Abdomen: Soft but moderate diffuse ttp no rebound Skin: Skin warm and dry. pale skin color. Normal skin turgor. Extremities: No lower extremity edema. No calf ttp Neuro: Oriented X 3. No motor deficit. No sensory deficit. Course Course Course Narrative: repeat dose of pain medications CRP negative WBC elevated previous bouts in past was on Rx of steroids 07/17 - 07/23 + colitis at this time infection suspected 532am will treat with ceftriaxone, flagyl, IV steroids and admit the patient patient still reports pain and nausea MDM - Abdominal Pain MDM Narrative Medical decision making narrative: 40 yo female with hx of Behcet's disease, gastroparesis TPN dependent, chronic pain syndrome on home opiates, DVT/PE on eliquis here with c/o low abdominal pain as well as n/v starting at 9pm at this time will need labs, IV pain medications for pain control, IVF, CT scan for obstruction/infection hx of inflammation of bowel wall in the past on imaging - infl markers sent off. Dispo per results and findings. Lab Data Result diagrams: 07/31/21 03:04 07/31/21 03:04 Labs: Lab Results 07/31/21 07/31/21 07/31/21 Range/Units 02:40 03:04 03:04 WBC 18.8 H (4.8-10.8) X10*3/uL RBC 4.50 (4.20-5.50) X10*6/uL Hgb 13.5 (12.0-16.0) g/dl Hct 40.1 (37.0-47.0) % MCV 89.1 (80.0-98.0) fL MCH 30.0 (27.0-33.0) pg MCHC 33.7 (31.0-35.0) g/dl RDW 12.4 (11.0-16.0) % Plt Count 239 (160-400) X10*3/uL MPV 9.8 (9.4-12.3) fL Immature Gran % (Auto) 0.4 (0.0-0.4) % Neut % (Auto) 90.9 H (45-73) % Lymph % (Auto) 5.2 L (20-40) % [place] % (Auto) 3.2 (2-11) % Eos % (Auto) 0.1 (0-4) % Baso % (Auto) 0.2 (0-2) % Lymph # (Auto) 1.0 L (1.2-4.9) X10*3/uL [place] # (Auto) 0.6 (0.1-1.2) X10*3/uL Eos # (Auto) 0.0 (0.0-0.4) X10*3/uL Baso # (Auto) 0.0 (0.0-0.2) X10*3/uL Abs Immat Gran (auto) 0.07 H (0.00-0.03) X10*3/uL Absolute Neuts (auto) 17.1 H (2.0-8.3) x10*3/uL Absolute Nucleated RBC 0.000 (0.0-0.012) X10*3/uL Nucleated RBC % (auto) 0.0 (0.0-0.2) /100WBC Smear Tech's Comments VERIFIED Sodium 141 (135-145) mmol/L Potassium 3.7 (3.3-5.1) mmol/L Chloride 102 (96-108) mmol/L Carbon Dioxide 26 (22-29) mmol/L Anion Gap 17 (12-20) BUN 18 H (9-16) mg/dL Creatinine 0.80 (0.5-1.4) mg/dL Estim Creat Clear Calc 74.6 Estimated GFR > 60 Random Glucose 104 (60-115) mg/dL Lactic Acid 1.0 (0.5-2.0) mmol/L Calcium 9.7 (8.4-10.2) mg/dL Magnesium 2.9 H (1.6-2.6) mg/dL Total Bilirubin 0.5 (0.0-1.0) mg/dL Direct Bilirubin 0.2 (0.0-0.5) mg/dL AST 17 (5-31) U/L ALT 10 (0-31) U/L Alkaline Phosphatase 62 (39-117) U/L C-Reactive Protein 0.21 (< or = 0.50) mg/dL Total Protein 6.7 (6.5-8.0) g/dL Albumin 4.3 (3.5-5.0) g/dL Lipase 11 (8-78) U/L Critical Care Time Critical Care Time Critical Care Time: Yes Total Critical Care Time: 45 Attestation: review of records, repeat IV pain medications, admission, repeat assessments I attest to this time spent taking care of the patient Discharge Plan Discharge Clinical Impression: Colitis, Leukocytosis Abdominal pain Qualifiers: Abdominal location: lower abdomen, unspecified Qualified Code(s): R10.30 - Lower abdominal pain, unspecified Vomiting Qualifiers: Vomiting type: unspecified Nausea presence: with nausea Qualified Code(s): R11.2 - Nausea with vomiting, unspecified Patient Disposition: Admitted As Inpatient
[2021-07-31] MEDS: diphenhydrAMINE HCL 50 MG/ML VIAL 25 MG IVPUSH (02:27)
[2021-07-31 03:09] LABS: Basophils Percent Auto 0.2 % (0-2); Eosinophils Percent Auto 0.1 % (0-4); Hematocrit 40.1 % (37.0-47.0); Hemoglobin 13.5 g/dl (12.0-16.0); Imm Gran Abs Auto 0.07 X10*3/uL (0.00-0.03); Imm Gran Pct Auto 0.4 % (0.0-0.4); Lymphocytes Percent Auto 5.2 % (20-40); MANUAL DIFF FLAG SCAN; Mean Corpuscular HGB Conc 33.7 g/dl (31.0-35.0); Mean Corpuscular Volume 89.1 fL (80.0-98.0); Mean Platelet Volume 9.8 fL (9.4-12.3); Monocytes Absolute Auto 0.6 X10*3/uL (0.1-1.2); Monocytes Percent Auto 3.2 % (2-11); Neutrophils Absolute Auto 17.1 x10*3/uL (2.0-8.3); Neutrophils Percent Auto 90.9 % (45-73); Platelet Count 239 X10*3/uL (160-400); Red Cell Distribution Width 12.4 % (11.0-16.0); SCAN SMEAR FLAG 1; White Blood Count 18.8 X10*3/uL (4.8-10.8)
--- NOTE | 2021-07-31 03:12 | PC.NURSE ---
Patient alert and oriented x 3. ambulates independently. right lower back portacath dressing clean dry and intact. Labs drawn from portacath. Patient c/o pain medicated with dilaudid with some effectiveness. Patient walked to bathroom vomited green bile and having diarrhea. Patient states on TPN for nutrition at home. Will continue to monitor.
[2021-07-31 03:26] LABS: SLIDE REVIEW VERIFIED
[2021-07-31 03:54] LABS: Alanine Aminotransferase 10 U/L (0-31); Albumin Level 4.3 g/dL (3.5-5.0); Alkaline Phosphatase 62 U/L (39-117); Anion Gap 17 (12-20); Aspartate Amino Transferase 17 U/L (5-31); Bilirubin Direct 0.2 mg/dL (0.0-0.5); Bilirubin Total 0.5 mg/dL (0.0-1.0); Blood Urea Nitrogen 18 mg/dL (9-16); C Reactive Protein 0.21 mg/dL (< or = 0.50); Calcium 9.7 mg/dL (8.4-10.2); Chloride 102 mmol/L (96-108); Creatinine Clr Calc Pharmacy 74.6; Estimated Glomerular Filt Rate > 60; Glucose Random 104 mg/dL (60-115); Lipase 11 U/L (8-78); Magnesium 2.9 mg/dL (1.6-2.6); Potassium 3.7 mmol/L (3.3-5.1); Sodium 141 mmol/L (135-145); Total Protein 6.7 g/dL (6.5-8.0)
[2021-07-31 04:11] LABS: Carbon Dioxide 26 mmol/L (22-29)
[2021-07-31] MEDS: iohexoL 350 MG/ML 100 ML INFUS..BTL 85 ML IV (04:55)
[2021-07-31] MEDS: LORazepam 2 MG/ML VIAL 0.5 MG IVPUSH (05:15)
[2021-07-31] MEDS: methylPREDNISolone Sod Succ 40 MG/ML VIAL IVPUSH (06:54)
--- NOTE | 2021-07-31 07:08 | PC.NURSE ---
Pt a&o, no sob or chest pain. Delay of antibiotic due to pt being a difficult stick. First attempt for blood drawn was approximately 6:30am.
[2021-07-31] MEDS: cefTRIAXone sodium 1 GM in 0.9 % Sodium Chloride 50 ML IV (07:20)
[2021-07-31 07:45] LABS: COVID-19 Test Negative (Negative); IDNOW Serial# 16C4AD1C
[2021-07-31] MEDS: metroNIDAZOLE/NS 500 MG/100 ML PIGGYBACK 100 MG IV (07:45)
--- NOTE | 2021-07-31 08:26 | PHA.MEDREC ---
Pharmacy Consult ? Medication Reconciliation Pharmacy has reviewed the medication reconciliation completed by Darwin. Patient reports taking prednisone as well. Yaquelin Luther, SadeD
[2021-07-31 08:56] LABS: Appearance Urine CLEAR; Color Urine YELLOW; Glucose Urine UA NEG (NEG); Leukocyte Esterase Urine NEG (NEG); Nitrite Urine NEG (NEG); PH 5.5 (5.0-8.0); Specific Gravity - Urine 1.015 (1.005-1.025); Urine Blood NEG (NEG); Urine Ketones NEG (NEG); Urine Protein NEG (NEG-TRACE)
--- NOTE | 2021-07-31 09:02 | P.HPHOSP_ITS ---
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 The patient reports that over the last several days, she has had intermittent, crampy lower abdominal pain which became persistent the evening before arrival. She reports fevers (subjective) and chills. She reports that initially, she only had pain but now has had multiple bouts of diarrhea and vomiting. She reports being on TPN at home and can only tolerate clear liquids. In regards to her Crohn's disease, she reports that she is currently on prednisone 20mg (Tapered from 40mg in the about 1-2 weeks ago). She reports that she may be starting Humira in the coming weeks. In the ED, the patients CT scan showed diffuse colitis with possible inflmmation at the IT. She was noted to have luekocytosis (although her CRP was wnl). She required multiple doses of IV analgesics. She was given IVF, IV antibiotics and multiple rounds of IV anti-emetics with no improvement in her symptoms. She will now be admitted for further treatment. Review of Systems Review of Systems: negative except HPI [facility] Medical History Abdominal pain Abdominal pain, chronic, generalized Asthma Behcet's disease Cervicalgia Chronic pain syndrome Common variable immunodeficiency Crohn's disease DVT (deep venous thrombosis) Gastroparesis Low back pain Pyloric stenosis Spondylolisthesis, lumbar region Spondylosis of lumbar region without myelopathy or radiculopathy Spontaneous pneumothorax Family History Father Hairy cell leukemia Surgical History History of hernia surgery Social History Housing: Condominium Do you presently have visiting nurse or other home services: No Alcohol intake: never Patient Tobacco Use Status: Never used Tobacco Advance Directives: No Advance Directives Date on File: 03/12/21 service: No Current occupational status: unemployed Meds Allergies Allergy/AdvReac Type Severity Reaction Status Date / Time ciprofloxacin [Cipro] Allergy Unknown unknown Verified 07/15/21 09:05 levofloxacin [Levaquin] Allergy Unknown unknown Verified 07/15/21 09:05 metoclopramide [Reglan] Allergy Unknown unknown Verified 07/15/21 09:05 ondansetron [Zofran] Allergy Unknown unknown Verified 07/15/21 09:05 penicillin V Allergy Unknown unknown Verified 07/15/21 09:05 Sulfa (Sulfonamide Allergy Unknown unknown Verified 07/15/21 09:05 Antibiotics) prochlorperazine Allergy unknown Verified 07/15/21 09:05 [From Compazine] thalidomide [From Thalomid] Allergy unknown Verified 07/15/21 09:05 Active Medications: Current Medications Acetaminophen (Acetaminophen 325 Mg Tablet) 650 mg PO Q6H PRN PRN Reason: Pain, Mild (Pain Scale 1-3) Apixaban (Apixaban 5 Mg Tablet) 5 mg PO BID COUNTS INCLUDE 234 BEDS AT THE [facility] Diphenhydramine HCl (Diphenhydramine Hcl 50 Mg/Ml Vial) 25 mg IV QID PRN PRN Reason: Nausea Fluticasone/Vilanterol (Fluticasone/Vilanterol 200/25 Blst.W.Dev) 1 puff INHALE Q24H COUNTS INCLUDE 234 BEDS AT THE [facility] Hydromorphone HCl (Hydromorphone Hcl 1 Mg/Ml Syringe) 1 mg IVPUSH Q4H PRN; Protocol PRN Reason: Pain, Severe (Pain Scale 7-10) Hydromorphone HCl (Hydromorphone Hcl 0.5 Mg/0.5 Ml Syringe) 0.5 mg IVPUSH Q2H PRN; Protocol PRN Reason: Pain, Moderate (Pain Scale 4-6 Dextrose/Sodium Chloride (D5ns) 1,000 mls @ 100 mls/hr IVCONT .Q10H COUNTS INCLUDE 234 BEDS AT THE [facility] Non-Formulary Medication (Levetiracetam) 7 ml PO BID COUNTS INCLUDE 234 BEDS AT THE [facility] Non-Formulary Medication (Umeclidinium [Incruse Ellipta]) 1 inhalation INHALE DAILY COUNTS INCLUDE 234 BEDS AT THE [facility] Pharmacy Consult (Consult Rx Perform Med Rec) 1 each MISCELLANE ONCE PRN PRN Reason: Consult order Promethazine HCl (Promethazine Hcl 25 Mg Tablet) 25 mg PO QID PRN PRN Reason: nausea Sodium Chloride (0.9 % Sodium Chloride Flush 3 Ml Syringe) 3 ml IVFLUSH QSHIFT COUNTS INCLUDE 234 BEDS AT THE [facility] Tizanidine HCl (Tizanidine Hcl 4 Mg Tablet) 4 mg PO BEDTIME COUNTS INCLUDE 234 BEDS AT THE [facility] Home Medications Medication Instructions Recorded Confirmed Last Taken Type promethazine 25 mg tablet 25 mg PO QID PRN 04/02/20 07/31/21 07/30/21 History tizanidine 4 mg tablet 4 mg PO BEDTIME 04/02/20 07/31/21 07/30/21 History apixaban 5 mg tablet (Eliquis) 5 mg PO BID 09/22/20 07/31/21 07/30/21 History albuterol sulfate 90 mcg/actuation 2 puff INHALATION Q4H PRN 12/12/20 07/31/21 07/30/21 History aerosol inhaler fluticasone furoate 200 1 inh INHALATION Q24H 12/12/20 07/31/21 07/30/21 History mcg-vilanterol 25 mcg/dose inhalation powder (Breo Ellipta) levetiracetam 100 mg/mL oral 7 ml PO BID 12/12/20 07/31/21 07/30/21 History solution umeclidinium 62.5 mcg/actuation 1 inh INHALATION DAILY 12/12/20 07/31/21 07/30/21 History blister powder for inhalation (Incruse Ellipta) acetaminophen 325 mg tablet 650 mg PO Q4H PRN 03/12/21 07/31/21 07/30/21 History diphenhydramine HCl 50 mg/mL 25 mg IV QID PRN 03/12/21 07/31/21 07/30/21 History injection solution ondansetron HCl (PF) 4 mg/2 mL 4 mg IV TID PRN 03/12/21 07/31/21 07/30/21 His tory injection solution prednisone 20 mg tablet 20 mg PO DAILY 07/31/21 07/31/21 07/30/21 History Physical Exam Vital Signs and Narrative: Vital Signs: Last Vital Signs Temp 97.8 F 07/31/21 07:21 Pulse 95 07/31/21 07:21 Resp 14 07/31/21 07:21 BP 120/61 07/31/21 07:21 Pulse Ox 95 07/31/21 07:21 BMI result Body Mass Index 26.2 Const: Other: Constitutional - Awake and Alert, Appears to be in pain Eyes - PERRLA, EOMI Cardiovascular - S1S2, RRR, No edema Respiratory - Normal lung expansion, Normal respiratory effort, No respiratory distress, CTA bilaterally Gastrointestinal - Diffuse lower abdominal tenderness without rebound or guarding; hypoactive BS - No CVA tenderness Extremities - no calf tenderness bilaterally, no swelling Musculoskeletal - Normal inspection, normal ROM Skin - Warm/Dry Neurological - Alert & oriented x3, No focal deficit Psychological - Appropriate affect Results Labs CBC and Chem 7: 07/31/21 03:04 07/31/21 03:04 Labs: Laboratory Results - last 24 hr 07/31/21 07/31/21 07/31/21 02:40 03:04 03:04 MCV 89.1 MCH 30.0 MCHC 33.7 RDW 12.4 Plt Count 239 MPV 9.8 Immature Gran % (Auto) 0.4 Neut % (Auto) 90.9 H Lymph % (Auto) 5.2 L [place] % (Auto) 3.2 Eos % (Auto) 0.1 Baso % (Auto) 0.2 Lymph # (Auto) 1.0 L [place] # (Auto) 0.6 Eos # (Auto) 0.0 Baso # (Auto) 0.0 Abs Immat Gran (auto) 0.07 H Absolute Neuts (auto) 17.1 H Absolute Nucleated RBC 0.000 Nucleated RBC % (auto) 0.0 Smear Tech's Comments VERIFIED Anion Gap 17 Estim Creat Clear Calc 74.6 Estimated GFR > 60 Random Glucose 104 Lactic Acid 1.0 Calcium 9.7 Magnesium 2.9 H Total Bilirubin 0.5 Direct Bilirubin 0.2 AST 17 ALT 10 Alkaline Phosphatase 62 C-Reactive Protein 0.21 Total Protein 6.7 Albumin 4.3 Lipase 11 Urine Color Urine Appearance Urine pH Ur Specific [place] Urine Protein Urine Glucose (UA) Urine Ketones Urine Blood Urine Nitrite Ur Leukocyte Esterase COVID-19 ([facility]) COVID-19 Clin Com 07/31/21 07/31/21 07:18 08:51 MCV MCH MCHC RDW Plt Count MPV Immature Gran % (Auto) Neut % (Auto) Lymph % (Auto) [place] % (Auto) Eos % (Auto) Baso % (Auto) Lymph # (Auto) [place] # (Auto) Eos # (Auto) Baso # (Auto) Abs Immat Gran (auto) Absolute Neuts (auto) Absolute Nucleated RBC Nucleated RBC % (auto) Smear Tech's Comments Anion Gap Estim Creat Clear Calc Estimated GFR Random Glucose Lactic Acid Calcium Magnesium Total Bilirubin Direct Bilirubin AST ALT Alkaline Phosphatase C-Reactive Protein Total Protein Albumin Lipase Urine Color YELLOW Urine Appearance CLEAR Urine pH 5.5 Ur Specific [place] 1.015 Urine Protein NEG Urine Glucose (UA) NEG Urine Ketones NEG Urine Blood NEG Urine Nitrite NEG Ur Leukocyte Esterase NEG COVID-19 ([facility]) Negative COVID-19 Clin Com See Note Imaging Radiologist's Impressions: Impressions Abdomen/Pelvis CT 07/31/21 04:55 IMPRESSION: Diffusely thick-walled appearance of the colon, consistent with colitis. Mild mural prominence of the terminal ileum is also noted for which mild inflammation cannot be excluded in the setting of Crohn's disease. No convincing evidence for obstruction. Fleischner guidelines were followed. 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 Her presentation is concerning for acute colitis -- infectious vs secondary to Crohn's flare. 1. Acute Colitis 1a. Acute on Chronic abdominal pain Infectious vs Inflammatory (secondary to Crohn's flare). Will check stool studies including C. Diff, but for the time being (in light of her known CVID) will cover with antibiotics ( Additionally -- the patient had her prednisone tapered recently -- so may be a Crohn's flare. Received solu-medrol 40mg x 1 in the ED; will await GI input prior to further steroids; GI consult for her pain -- IV dialudid for the next 24 hours, to transition to her oral dilaudid as soon as possible Patient does not have severe sepsis at this time. 2. Seizure d/o continue Keppra 3. History of PE/DVT Eliquis 4. Chronic TPN use will continue with TPN in house clear liquids as tolerated 5. Chronic Asthma continue baseline inhalers Continue her other baseline meds as appropriate. Full Code DVT pptx, Eliquis The patient has acute colitis (infectious v inflammatory). She will require at least a 2MN medically necessary hospitalization for IV antibiotics/steroids, IVF fluids, TPN. She will require monitoring for response to therapy. This cannot be managed in a less acute setting. Quality Stroke Does the patient have a stroke diagnosis?: No VTE Prior VTE?: No VTE Risk Level:: Medical - moderate - high VTE Device Contraindication: Treatment Not Indicated VTE Drug Contraindication: N/A - Med Ordered
[2021-07-31] MEDS: Apixaban 5 MG TABLET PO ×2 (09:10→22:46)
[2021-07-31] MEDS: Dextrose 5 % and 0.9 % NaCl 1,000 ML 100 ML IVCONT (09:10)
[2021-07-31 09:34] LABS: Phosphorus 4.9 mg/dL (2.7-4.5)
--- NOTE | 2021-07-31 09:39 | MHC.CM.PN ---
Addendum entered by Ingrid Sheikh 07/31/21 15:18: PT IS ALSO ACTIVE WITH [facility] FOR TPN Original Note: PT REPORTS SHE LIVES WITH HER 18 YO SON PT IS INDEPENDENT WITH SELF CARE AND AMBULATION PT REPORTS BEING ACTIVE WITH [facility] FOR WEEKLY PORT CARE/DRESSING CHANGES PT REPORTS HER PCP IS CURT LOPEZ AND SAYS HER FRIEND, JAY CABALLERO ([phone]) IS HER HCP (COPY REQUESTED) PT REPORTS SHE IS VACCINATED AGAINST COVID-19 WITH PFIZER BUT HAS NOT RECEIVED THE BOOSTER IMM DELIVERED, COPY SENT TO [facility] CURRENT DC PLAN IS HOME WITH RESUMPTION OF [facility] FRIEND TO TRANSPORT
[2021-07-31 10:23] LABS: Triglycerides 68 mg/dL
--- NOTE | 2021-07-31 10:23 | PM.GICN ---
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 The patient reports that over the last several days, she has had intermittent, crampy lower abdominal pain which became persistent the evening before arrival. She reports fevers (subjective) and chills. She reports that initially, she only had pain but now has had multiple bouts of diarrhea and vomiting. She reports being on TPN at home and can only tolerate clear liquids. In regards to her Crohn's disease, she reports that she is currently on prednisone 20mg (Tapered from 40mg in the about 1-2 weeks ago). She reports that she may be starting Humira in the coming weeks. In the ED, the patients CT scan showed diffuse colitis with possible inflammation at the TI. She was noted to have luekocytosis (although her CRP was wnl). She required multiple doses of IV analgesics. She was given IVF, IV antibiotics and multiple rounds of IV anti-emetics with no improvement in her symptoms. She will now be admitted for further treatment. She has a history of Crohn's disease, although currently is not on any treatment. ?She believes she was last treated with prednisone about a year ago.? She has been on other treatment modalities, but these were apparently stopped because of problems with diarrhea.? She believes her Crohn disease involves the colon. She is followed by [facility].? She thinks her last colonoscopy was about 2 years ago. Patient reports being diagnosed with Behcet's syndrome with associated Crohn's disease in 2004 denies symptoms of heartburn, dysphagia, nausea, vomiting, change in appetite or weight. Denies recent change in bowel habits, constipation, diarrhea, black stools or rectal bleeding. Patient denies major cardiac or pulmonary problems, loud snoring or sleep apnea Denies being on chronic anticoagulation. Patient denies known family history of colon polyps, colon cancer or other GI malignancies. IMAGING STUDIES: 07/31/[address] SCAN SHOWED: Diffusely thick-walled appearance of the colon, consistent with colitis. Mild mural prominence of the terminal ileum is also noted for which mild inflammation cannot be excluded in the setting of Crohn's disease. No convincing evidence for obstruction. Review of Systems Review of Systems: negative except HPI Constitutional: Constitutional: Reports fatigue Eyes: Eyes: Reports irritation and Reports other (Iritis and uveitis) Gastrointestinal: Gastrointestinal: Reports abdominal pain, Reports constipation, Reports early satiety, Reports heartburn and Reports diarrhea Musculoskeletal: Musculoskeletal: Reports arthralgias Integumentary/Breasts: Skin/Breast: Denies rash Endocrine: Endocrine: Reports fatigue PMFSH Past Medical History Medical History Abdominal pain Abdominal pain, chronic, generalized Absence seizure disorder Asthma Behcet's disease Cervicalgia Chronic pain syndrome Common variable immunodeficiency Crohn's disease DVT (deep venous thrombosis) Gastroparesis Low back pain Pyloric stenosis Spondylolisthesis, lumbar region Spondylosis of lumbar region without myelopathy or radiculopathy Spontaneous pneumothorax Family History Family History Father Hairy cell leukemia Surgical History Surgical History History of hernia surgery Social History Social History Household Members: Children Household Members Other:: son Housing: Apartment Do you presently have visiting nurse or other home services: Yes Alcohol intake: never Patient Tobacco Use Status: Never used Tobacco Advance Directives Date on File: 03/12/21 service: No Current occupational status: unemployed Meds Allergies Allergy/AdvReac Type Severity Reaction Status Date / Time ciprofloxacin [Cipro] Allergy Unknown unknown Verified 08/12/21 08:31 levofloxacin [Levaquin] Allergy Unknown unknown Verified 08/12/21 08:31 metoclopramide [Reglan] Allergy Unknown unknown Verified 08/12/21 08:31 ondansetron [Zofran] Allergy Unknown unknown Verified 08/12/21 08:31 penicillin V Allergy Unknown unknown Verified 08/12/21 08:31 prochlorperazine Allergy Unknown unknown Verified 08/14/21 13:10 [From Compazine] Sulfa (Sulfonamide Allergy Unknown unknown Verified 08/12/21 08:31 Antibiotics) thalidomide [From Thalomid] Allergy Unknown unknown Verified 08/14/21 13:10 Active Medications: Current Medications Acetaminophen (Acetaminophen 325 Mg Tablet) 650 mg PO Q6H PRN PRN Reason: Pain, Mild (Pain Scale 1-3) Apixaban (Apixaban 5 Mg Tablet) 5 mg PO BID [facility] Last Admin: 07/31/21 09:10 Dose: 5 mg Documented by: Diphenhydramine HCl (Diphenhydramine Hcl 50 Mg/Ml Vial) 25 mg IV QID PRN PRN Reason: Nausea Fluticasone/Vilanterol (Fluticasone/Vilanterol 200/25 Blst.W.Dev) 1 puff INHALE RDAILY [facility] Hydromorphone HCl (Hydromorphone Hcl 1 Mg/Ml Syringe) 1 mg IVPUSH Q4H PRN; Protocol PRN Reason: Pain, Severe (Pain Scale 7-10) Hydromorphone HCl (Hydromorphone Hcl 0.5 Mg/0.5 Ml Syringe) 0.5 mg IVPUSH Q2H PRN; Protocol PRN Reason: Pain, Moderate (Pain Scale 4-6 Dextrose/Sodium Chloride (D5ns) 1,000 mls @ 100 mls/hr IVCONT .Q10H [facility] Last Admin: 07/31/21 09:10 Dose: 100 mls/hr Documented by: Ceftriaxone Sodium 1 gm/ (Sodium Chloride) 50 mls @ 100 mls/hr IV Q24H [facility] Levetiracetam (Levetiracetam Oral Soln 500 Mg/5 Ml) 700 mg PO BID [facility] Non-Formulary Medication (Umeclidinium [Incruse Ellipta]) 1 inhalation INHALE DAILY [facility] Pharmacy Consult (Consult Rx Perform Med Rec) 1 each MISCELLANE ONCE PRN PRN Reason: Consult order Promethazine HCl (Promethazine Hcl 25 Mg Tablet) 25 mg PO QID PRN PRN Reason: nausea Sodium Chloride (0.9 % Sodium Chloride Flush 3 Ml Syringe) 3 ml IVFLUSH QSHIFT [facility] Tizanidine HCl (Tizanidine Hcl 4 Mg Tablet) 4 mg PO BEDTIME [facility] Home Medications Medication Instructions Recorded Confirmed Last Taken Type tizanidine 4 mg tablet 4 mg PO BEDTIME 04/02/20 08/18/21 08/17/21 History apixaban 5 mg tablet (Eliquis) 5 mg PO BID 09/22/20 08/18/21 08/17/21 History albuterol sulfate 90 mcg/actuation 2 puff INHALATION Q4H PRN 12/12/20 08/18/21 08/17/21 History aerosol inhaler fluticasone furoate 200 1 inh INHALATION Q24H 12/12/20 08/18/21 08/17/21 History mcg-vilanterol 25 mcg/dose inhalation powder (Breo Ellipta) umeclidinium 62.5 mcg/actuation 1 inh INHALATION DAILY 12/12/20 08/18/21 08/17/21 History blister powder for inhalation (Incruse Ellipta) acetaminophen 325 mg tablet 650 mg PO Q4H PRN 03/12/21 08/18/21 08/17/21 History diphenhydramine HCl 50 mg/mL 25 mg IV QID PRN 03/12/21 08/18/21 08/17/21 History injection solution ondansetron HCl (PF) 4 mg/2 mL 4 mg IV QID PRN 03/12/21 08/18/21 08/17/21 History injection solution levetiracetam 100 mg/mL oral 700 mg PO BID 08/18/21 08/18/21 08/17/21 History solution (Keppra) prednisone 10 mg tablet 30 mg PO DAILY 08/18/21 08/18/21 08/17/21 History promethazine 25 mg tablet 25 mg PO QID PRN 08/18/21 08/18/21 08/17/21 History Physical Exam Vital Signs: Vital Signs: Last Vital Signs Temp 97.8 F 07/31/21 07:21 Pulse 95 07/31/21 07:21 Resp 14 07/31/21 07:21 BP 120/61 07/31/21 07:21 Pulse Ox 95 07/31/21 07:21 BMI result Body Mass Index 26.2 Const: General: no acute distress and ill appearing Nutritional Appearance: average body habitus Orientation/consciousness: patient oriented x3 Limitations: no limitations HENMT: Head: Yes normal to inspection Ears: hearing grossly normal bilaterally Face and sinus: Yes other (cushingoid facies) Mouth: Normal oral and palatal mucosa present Eyes: Sclerae: sclerae normal Pupils: Equal, round and reactive pupils present Neck: Neck: Yes normal visual inspection Chest: Chest palpation & inspection: normal inspection of the chest Resp: Effort & Inspection: normal respiratory effort Auscultation: clear to auscultation bilaterally Cardio: Palpation: normal PMI Rate: regular rate Rhythm: regular rhythm Heart sounds: S1 normal heart sound present, S2 normal heart sound present and no murmurs GI: Inspection: Yes scar (at site of prebious G-J tubes) Palpation (GI): Soft to palpation, Tenderness to palpation present (GI) (moderate diffuse lower abdominal tenderness) and No hepatosplenomegaly present Auscultation: normal bowel sounds Rectal Exam - Female: deferred Skin: General skin exam: no rashes or lesions noted Neuro: General: patient oriented x3, gait normal and moves all extremities Cranial nerves: Yes Equal, round and reactive pupils present Psych: Appearance: grossly normal Mental Status: mental status grossly normal Results Labs CBC & Chem 7: 08/05/21 05:55 08/05/21 05:55 Labs: Short CBC 07/31/21 Range/Units 03:04 WBC 18.8 H (4.8-10.8) X10*3/uL Hgb 13.5 (12.0-16.0) g/dl Hct 40.1 (37.0-47.0) % Plt Count 239 (160-400) X10*3/uL BMP 07/31/21 03:04 Sodium 141 Potassium 3.7 Chloride 102 Carbon Dioxide 26 BUN 18 H Creatinine 0.80 Calcium 9.7 Liver Function 07/31/21 Range/Units 03:04 Total Bilirubin 0.5 (0.0-1.0) mg/dL Direct Bilirubin 0.2 (0.0-0.5) mg/dL AST 17 (5-31) U/L ALT 10 (0-31) U/L Alkaline Phosphatase 62 (39-117) U/L Albumin 4.3 (3.5-5.0) g/dL Urine 07/31/21 Range/Units 08:51 Urine Color YELLOW Urine Appearance CLEAR Urine pH 5.5 (5.0-8.0) Ur Specific [place] 1.015 (1.005-1.025) Urine Protein NEG (NEG-TRACE) MG/DL Urine Glucose (UA) NEG (NEG) MG/DL Assessment and Plan (1) Abdominal pain: Qualifiers: Abdominal location: lower abdomen, unspecified Qualified Code(s): R10.30 - Lower abdominal pain, unspecified (2) Colitis: Status: Resolved (3) Behcet's disease: (4) Crohn's disease: Qualifiers: Digestive disease complication type: other complication Gastrointestinal tract location: unspecified location Qualified Code(s): K50.918 - Crohn's disease, unspecified, with other complication Plan 40 YF with Behcet's syndrome, Crohn's disease (on Prednisone taper), gastroparesis, 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 Has a hx of Crohn's colitis and has been on a prednisone taper (started at 40 mg daily and taking 20 mg daily at the time of admission). Pt is being followed by Rheumatology and GI (Dr Pope) at [facility] and plan is to start Humira next week. ABD CT scan showed thick-walled appearance of the colon, consistent with colitis and mild mural prominence of the terminal ileum was also noted. RECOMMENDATIONS: 1. Agree with IV antibiotics, antiemetics and pain medications. 2. IV steroids x 48 hrs and switch to PO Prednisone at 40 mg daily and taper by 10 mg every week over 4 weeks 3. Stool for C Diff toxin 4. Pt can FU with her GI at [facility] and start Humira next week as planned. Procedures Date of Service Date of Service: 07/31/21
--- NOTE | 2021-07-31 10:42 | MHC.CLN ---
RE: CONSULT PT ON TPN AT HOME HT 59 WT 61.5KG BMI 25.6 RECOMMEND DAY ONE D15AA5% AT 45ML/HR TO PROVIDE 767KCALS, 54G PROTEIN REPLETE LYTES NEEDED; DISCUSSED CASE WITH PHARMACY DAY 2 (08/01/21) INCREASE RATE D15AA5% AT 65ML/HR AND ADD 18ML OF 20% LIPIDS TO PROVIDE 1540KCALS TOTAL (25KCALS/KG), 78G PROTEIN (1.2G/KG) REPLETE LYTES NEEDED CONSULT RD VIA TIGER TEXT OVER WEEKEND IF NEEDED
[2021-07-31] MEDS: Promethazine HCL 25 MG TABLET PO (16:15)
[2021-07-31] MEDS: diphenhydrAMINE HCL 50 MG/ML VIAL 25 MG IV (21:17)
[2021-07-31] MEDS: Acetaminophen 325 MG TABLET 650 MG PO (21:28)
[2021-07-31] MEDS: TiZANidine HCL 4 MG TABLET PO (22:46)
[2021-07-31] MEDS: levETIRAcetam Oral Soln 500 MG/5 ML 700 MG PO (22:47)
[2021-07-31] MEDS: HYDROmorphone HCl 0.5 MG/0.5 ML SYRINGE IVPUSH (22:49)
[2021-08-01 06:06] VITALS: BP 106/56; PULSE 72; RESP 18; O2SAT 95
[2021-08-01] MEDS: cefTRIAXone sodium 1 GM in 0.9 % Sodium Chloride 50 ML IV (06:10)
[2021-08-01] MEDS: HYDROmorphone HCl 0.5 MG/0.5 ML SYRINGE IVPUSH ×5 (06:44→20:23)
[2021-08-01 08:09] VITALS: BP 93/53; PULSE 62; RESP 18; TEMP 36.5; O2SAT 97
[2021-08-01] MEDS: levETIRAcetam Oral Soln 500 MG/5 ML 700 MG PO ×2 (08:09→20:21)
[2021-08-01] MEDS: Apixaban 5 MG TABLET PO ×2 (08:10→20:21)
[2021-08-01] MEDS: Fluticasone/Vilanterol 200/25 BLST.W.DEV 1 PUFF INHALE (09:10)
[2021-08-01 09:13] VITALS: PULSE 61; RESP 95; O2SAT 16
[2021-08-01] MEDS: ondansetron HCL 4 MG/2 ML VIAL IVPUSH ×2 (09:44→16:06)
[2021-08-01] MEDS: diphenhydrAMINE HCL 50 MG/ML VIAL 25 MG IV ×3 (09:57→20:27)
[2021-08-01 11:16] LABS: Albumin Level 3.7 g/dL (3.5-5.0); Anion Gap 8 (12-20); Blood Urea Nitrogen 14 mg/dL (9-16); Calcium 8.9 mg/dL (8.4-10.2); Carbon Dioxide 30 mmol/L (22-29); Chloride 105 mmol/L (96-108); Creatinine Clr Calc Pharmacy 85.3; Estimated Glomerular Filt Rate > 60; Glucose Random 104 mg/dL (60-115); Magnesium 2.4 mg/dL (1.6-2.6); Potassium 4.1 mmol/L (3.3-5.1); Sodium 139 mmol/L (135-145); Triglycerides 77 mg/dL
[2021-08-01] MEDS: methylPREDNISolone Sod Succ 40 MG/ML VIAL IVPUSH (11:33)
--- NOTE | 2021-08-01 12:23 | PC.NURSE ---
TPN infusing, pt tolerating well. meds given as documented. Inhalers given by Respiratory Therapist. Pt's son in to visit. no complaints.
--- NOTE | 2021-08-01 15:02 | HO.PM.IMPN ---
Subjective Subjective Date of Service: 08/01/21 Interval History: seen and examined this morning follow up for Crohn's flare Reports ongoing left lower quadrant abdominal pain, no diarrhea since admission Review of Systems Review of Systems: Yes all other systems are reviewed and are negative Constitutional Constitutional: Denies chills and Denies fever(s) Cardiovascular Cardiovascular: Denies chest pain, Denies palpitations and Denies dyspnea Respiratory Respiratory: Denies dyspnea Gastrointestinal Gastrointestinal: Reports abdominal pain, Denies diarrhea, Reports nausea and Denies vomiting Endocrine Endocrine: Denies palpitations Physical Exam Vital Signs: Vital Signs: Last Vital Signs Temp 97.7 F 08/01/21 08:09 Pulse 62 08/01/21 08:09 Resp 95 H 08/01/21 09:13 BP 93/53 L 08/01/21 08:09 Pulse Ox 97 08/01/21 08:09 BMI result Body Mass Index 26.2 Const: General: cooperative, alert and awake Nutritional Appearance: average body habitus Eyes: Sclerae: sclerae normal Pupils: Equal, round and reactive pupils present Resp: Effort & Inspection: normal respiratory effort and able to speak in complete sentences Cardio: Rate: regular rate Heart sounds: S1 normal heart sound present and S2 normal heart sound present GI: Other: reports LLQ pain but does not apper to be significantly tender on palpation Inspection: No distended Palpation (GI): Soft to palpation Neuro: Cranial nerves: Yes Equal, round and reactive pupils present Extrem: Other: no leg edema Objective Data Active Medications Acetaminophen (Acetaminophen 325 Mg Tablet) 650 mg PO Q6H PRN PRN Reason: Pain, Mild (Pain Scale 1-3) Last Admin: 07/31/21 21:28 Dose: 650 mg Documented by: FIORDALIZA Apixaban (Apixaban 5 Mg Tablet) 5 mg PO BID [facility] Last Admin: 08/01/21 08:10 Dose: 5 mg Documented by: ABUNDIO Diphenhydramine HCl (Diphenhydramine Hcl 50 Mg/Ml Vial) 25 mg IV QID PRN PRN Reason: Nausea Last Admin: 08/01/21 09:57 Dose: 25 mg Documented by: ABUNDIO Fluticasone/Vilanterol (Fluticasone/Vilanterol 200/25 Blst.W.Dev) 1 puff INHALE RDAILY [facility] Last Admin: 08/01/21 09:10 Dose: 1 puff Documented by: MONAE Hydromorphone HCl (Hydromorphone Hcl 1 Mg/Ml Syringe) 1 mg IVPUSH Q4H PRN; Protocol PRN Reason: Pain, Severe (Pain Scale 7-10) Last Admin: 07/31/21 16:15 Dose: 1 mg Documented by: NELLY Hydromorphone HCl (Hydromorphone Hcl 0.5 Mg/0.5 Ml Syringe) 0.5 mg IVPUSH Q2H PRN; Protocol PRN Reason: Pain, Moderate (Pain Scale 4-6 Last Admin: 08/01/21 14:03 Dose: 0.5 mg Documented by: ABUNDIO Ceftriaxone Sodium 1 gm/ (Sodium Chloride) 50 mls @ 100 mls/hr IV Q24H [facility] Last Infusion: 08/01/21 06:43 Dose: 0 mls/hr Documented by: ALMAZ Potassium Chloride 50 meq/Sodium Chloride 50 meq/Magnesium Sulfate 5 meq/Calcium Gluconate 9.3 meq/Sodium Acetate 50 meq/Multivitamins 10 ml/ Trace Metals 1 ml/ Amino Acids/Dextrose 1,080 mls @ 45 mls/hr IVCONT DAILY@1800 [facility] Stop: 08/01/21 17:59 Last Admin: 07/31/21 19:11 Dose: 45 mls/hr Documented by: MATTHEW Potassium Chloride 60 meq/Sodium Chloride 100 meq/Magnesium Sulfate 10 meq/Calcium Gluconate 9.3 meq/Sodium Acetate 100 meq/ Amino Acids/Dextrose 1,560 mls @ 65 mls/hr IVCONT DAILY@1800 [facility] Stop: 08/02/21 17:59 Fat Emulsion Intravenous (Intralipid) 216 mls @ 18 mls/hr IVCONT DAILY@1800 [facility] Stop: 08/02/21 05:59 Levetiracetam (Levetiracetam Oral Soln 500 Mg/5 Ml) 700 mg PO BID [facility] Last Admin: 08/01/21 08:09 Dose: 700 mg Documented by: ABUNDIO Methylprednisolone Sodium Succinate (Methylprednisolone Sod Succ 40 Mg/Ml Vial) 40 mg IVPUSH Q24H [facility] Last Admin: 08/01/21 11:33 Dose: 40 mg Documented by: ABUNDIO Ondansetron HCl (Ondansetron Hcl 4 Mg/2 Ml Vial) 4 mg IVPUSH Q8H PRN PRN Reason: Nausea and Vomiting Last Admin: 08/01/21 09:44 Dose: 4 mg Documented by: ABUNDIO Pharmacy Consult (Consult Rx Perform Med Rec) 1 each MISCELLANE ONCE PRN PRN Reason: Consult order Promethazine HCl (Promethazine Hcl 25 Mg Tablet) 25 mg PO QID PRN PRN Reason: nausea Last Admin: 07/31/21 16:15 Dose: 25 mg Documented by: NELLY Sodium Chloride (0.9 % Sodium Chloride Flush 3 Ml Syringe) 3 ml IVFLUSH QSHIFT [facility] Last Admin: 08/01/21 08:23 Dose: Not Given Documented by: ABUNDIO Non-Admin Reason: IV Running Tiotropium [place] (Tiotropium [place] 18 Mcg Cap.W.Dev) 1 puff INHALE RDAILY [facility] Last Admin: 08/01/21 09:10 Dose: 1 puff Documented by: MONAE Tizanidine HCl (Tizanidine Hcl 4 Mg Tablet) 4 mg PO BEDTIME [facility] Last Admin: 07/31/21 22:46 Dose: 4 mg Documented by: FIORDALIZA Labs CBC & Chem 7: 07/31/21 03:04 08/01/21 10:47 Labs: Laboratory Results - last 24 hr 08/01/21 10:47 Anion Gap 8 L Estim Creat Clear Calc 85.3 Estimated GFR > 60 Random Glucose 104 Calcium 8.9 D Phosphorus 3.0 Magnesium 2.4 Albumin 3.7 Triglycerides 77 Microbiology Microbiology Results: Microbiology 07/31/21 07:19 Blood Culture - Preliminary Blood - Venous No growth after 24 hours. 07/31/21 07:19 Blood Culture - Preliminary Blood - Venous No growth after 24 hours. 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 Her presentation is concerning for acute colitis -- infectious vs secondary to Crohn's flare. 1. Acute Colitis 1a. Acute on Chronic abdominal pain Infectious vs Inflammatory (secondary to Crohn's flare). Will check stool studies including C. Diff, but for the time being (in light of her known CVID) will cover with antibiotics - no further diarrhea so far to send for stool studies Additionally - the patient had her prednisone tapered recently - so may be a Crohn's flare Seen by GI, rec IV steroids with transition to prednisone taper for her pain - IV dialudid for the next 24 hours, to transition to her oral dilaudid as soon as possible Patient does not have severe sepsis at this time. 2. Seizure d/o continue Keppra 3. History of PE/DVT Nadine 4. Chronic TPN use will continue with TPN in house clear liquids as tolerated 5. Chronic Asthma continue baseline inhalers Continue her other baseline meds as appropriate. Full Code DVT pptx, Nadine Attending: dr. patrick The patient requires continued hospital stay due to acute colitis (infectious v inflammatory) IV antibiotics/steroids, IVF fluids, TPN. She will require monitoring for response to therapy Quality Stroke Does the patient have a stroke diagnosis?: No VTE Prior VTE?: No VTE Risk Level:: Medical - moderate - high VTE Device Contraindication: Treatment Not Indicated VTE Drug Contraindication: N/A - Med Ordered
--- NOTE | 2021-08-01 15:53 | PC.NURSE ---
report given to PILAR Bal. pt will be transported to room 361 by member of congress. pt aware of plan. vss.
[2021-08-01 16:00] VITALS: BP 108/54; PULSE 68; RESP 18; TEMP 36.6; O2SAT 96
[2021-08-01] MEDS: TiZANidine HCL 4 MG TABLET PO (20:21)
[2021-08-01] MEDS: 0.9 % Sodium Chloride Flush 3 ML SYRINGE IVFLUSH (20:27)
[2021-08-01] MEDS: Promethazine HCL 25 MG TABLET PO (21:13)
[2021-08-01 23:31] VITALS: BP 115/60; PULSE 72; RESP 18; TEMP 36.6; O2SAT 97
[2021-08-02] VITALS (9 sets, daily range): BP systolic 80–132; BP diastolic 44–66; PULSE 55–86; RESP 18–20; TEMP 36.2–36.6; O2SAT 97–98
[2021-08-02] MEDS: HYDROmorphone HCl 0.5 MG/0.5 ML SYRINGE IVPUSH ×2 (01:03→04:58)
[2021-08-02] MEDS: ondansetron HCL 4 MG/2 ML VIAL IVPUSH ×2 (04:58→13:24)
[2021-08-02] MEDS: diphenhydrAMINE HCL 50 MG/ML VIAL 25 MG IV ×3 (05:03→19:18)
[2021-08-02] MEDS: cefTRIAXone sodium 1 GM in 0.9 % Sodium Chloride 50 ML IV (05:05)
[2021-08-02 06:49] LABS: Anion Gap 12 (12-20); Blood Urea Nitrogen 17 mg/dL (9-16); Carbon Dioxide 26 mmol/L (22-29); Chloride 106 mmol/L (96-108); Creatinine Clr Calc Pharmacy 87.8; Estimated Glomerular Filt Rate > 60; Glucose Random 104 mg/dL (60-115); Potassium 4.1 mmol/L (3.3-5.1); Sodium 140 mmol/L (135-145)
[2021-08-02] MEDS: Fluticasone/Vilanterol 200/25 BLST.W.DEV 1 PUFF INHALE (08:02)
[2021-08-02] MEDS: methylPREDNISolone Sod Succ 40 MG/ML VIAL IVPUSH (08:29)
[2021-08-02] MEDS: levETIRAcetam Oral Soln 500 MG/5 ML 700 MG PO ×2 (08:29→20:29)
[2021-08-02] MEDS: Apixaban 5 MG TABLET PO ×2 (08:29→20:29)
[2021-08-02] MEDS: 0.9 % Sodium Chloride 500 ML 999 ML IV (08:35)
[2021-08-02 09:13] LABS: Magnesium 2.5 mg/dL (1.6-2.6); Phosphorus 3.3 mg/dL (2.7-4.5)
--- NOTE | 2021-08-02 10:21 | P.PNIM_ITS ---
Subjective Subjective Date of Service: 08/02/21 <NIVIA Kennedy - Last Filed: 08/02/21 11:20> 08/02/21 <Andrés Arenas DO - Last Filed: 08/02/21 13:00> Interval History: seen and examined this morning follow up for crohns flare no diarrhea, or vomiting, some nausea lower abdominal pain <NIVIA Kennedy - Last Filed: 08/02/21 11:20> Review of Systems Review of Systems: Yes all other systems are reviewed and are negative <NIVIA Kennedy - Last Filed: 08/02/21 11:20> Constitutional Constitutional: Denies chills and Denies fever(s) <NIVIA Kennedy - Last Filed: 08/02/21 11:20> Cardiovascular Cardiovascular: Denies chest pain, Denies palpitations and Denies dyspnea <NIVIA Kennedy - Last Filed: 08/02/21 11:20> Respiratory Respiratory: Denies cough and Denies dyspnea <NIVIA Kennedy - Last Filed: 08/02/21 11:20> Gastrointestinal Gastrointestinal: Reports abdominal pain, Denies melena, Denies hematochezia, Denies diarrhea, Reports nausea and Denies vomiting <NIVIA Kennedy - Last Filed: 08/02/21 11:20> Endocrine Endocrine: Denies palpitations <NIVIA Kennedy - Last Filed: 08/02/21 11:20> Physical Exam Vital Signs: Vital Signs: Last Vital Signs Temp 97.2 F 08/02/21 07:30 Pulse 58 08/02/21 07:30 Resp 18 08/02/21 08:02 BP 96/54 L 08/02/21 09:17 Pulse Ox 97 08/02/21 07:30 BMI result Body Mass Index 26.2 <NIVIA Kennedy - Last Filed: 08/02/21 11:20> Const: General: cooperative, alert and awake <NIVIA Kennedy - Last Filed: 08/02/21 11:20> Nutritional Appearance: average body habitus <NIVIA Kennedy - Last Filed: 08/02/21 11:20> Eyes: Sclerae: sclerae normal <NIVIA Kennedy - Last Filed: 08/02/21 11:20> Pupils: Equal, round and reactive pupils present <NIVIA Kennedy - Last Filed: 08/02/21 11:20> Chest: Other: port right side; no surrouding erythema <NIVIA Kennedy - Last Filed: 08/02/21 11:20> Resp: Effort & Inspection: normal respiratory effort and able to speak in complete sentences <NIVIA Kennedy - Last Filed: 08/02/21 11:20> Cardio: Rate: regular rate <NIVIA Kennedy - Last Filed: 08/02/21 11:20> Heart sounds: S1 normal heart sound present and S2 normal heart sound present <NIVIA Kennedy - Last Filed: 08/02/21 11:20> GI: Other: reports LLQ pain but does not apper to be significantly tender on palpation <NIVIA Kennedy - Last Filed: 08/02/21 11:20> Inspection: No distended <NIVIA Kennedy - Last Filed: 08/02/21 11:20> Palpation (GI): Soft to palpation <NIVIA Kennedy - Last Filed: 08/02/21 11:20> Neuro: Cranial nerves: Yes Equal, round and reactive pupils present <NIVIA Kennedy - Last Filed: 08/02/21 11:20> Extrem: Other: no leg edema <NIVIA Kennedy - Last Filed: 08/02/21 11:20> Objective Data Active Medications Acetaminophen (Acetaminophen 325 Mg Tablet) 650 mg PO Q6H PRN PRN Reason: Pain, Mild (Pain Scale 1-3) Last Admin: 07/31/21 21:28 Dose: 650 mg Documented by: FIORDALIZA Apixaban (Apixaban 5 Mg Tablet) 5 mg PO BID ANNA Last Admin: 08/02/21 08:29 Dose: 5 mg Documented by: COTBHARGAVI Diphenhydramine HCl (Diphenhydramine Hcl 50 Mg/Ml Vial) 25 mg IV QID PRN PRN Reason: Nausea Last Admin: 08/02/21 05:03 Dose: 25 mg Documented by: IMLI Fluticasone/Vilanterol (Fluticasone/Vilanterol 200/25 Blst.W.Dev) 1 puff INHALE RDAILY [facility] Last Admin: 08/02/21 08:02 Dose: 1 puff Documented by: NELLA Hydromorphone HCl (Hydromorphone Hcl 1 Mg/Ml Syringe) 0.5 mg IVPUSH Q4H PRN; Protocol PRN Reason: Pain, Severe (Pain Scale 7-10) Ceftriaxone Sodium 1 gm/ (Sodium Chloride) 50 mls @ 100 mls/hr IV Q24H [facility] Last Infusion: 08/02/21 05:41 Dose: 0 mls/hr Documented by: MILI Potassium Chloride 60 meq/Sodium Chloride 100 meq/Magnesium Sulfate 10 meq/Calcium Gluconate 9.3 meq/Sodium Acetate 100 meq/ Amino Acids/Dextrose 1,560 mls @ 65 mls/hr IVCONT DAILY@1800 [facility] Stop: 08/02/21 17:59 Last Infusion: 08/02/21 05:41 Dose: 65 mls/hr Documented by: MILI Levetiracetam (Levetiracetam Oral Soln 500 Mg/5 Ml) 700 mg PO BID [facility] Last Admin: 08/02/21 08:29 Dose: 700 mg Documented by: NORMEMA Methylprednisolone Sodium Succinate (Methylprednisolone Sod Succ 40 Mg/Ml Vial) 40 mg IVPUSH Q24H [facility] Last Admin: 08/02/21 08:29 Dose: 40 mg Documented by: EMMANUEL Ondansetron HCl (Ondansetron Hcl 4 Mg/2 Ml Vial) 4 mg IVPUSH Q8H PRN PRN Reason: Nausea and Vomiting Last Admin: 08/02/21 04:58 Dose: 4 mg Documented by: MILI Pharmacy Consult (Consult Rx Perform Med Rec) 1 each MISCELLANE ONCE PRN PRN Reason: Consult order Promethazine HCl (Promethazine Hcl 25 Mg Tablet) 25 mg PO QID PRN PRN Reason: nausea Last Admin: 08/01/21 21:13 Dose: 25 mg Documented by: SENAIT Sodium Chloride (0.9 % Sodium Chloride Flush 3 Ml Syringe) 3 ml IVFLUSH QSHIFT [facility] Last Admin: 08/02/21 08:12 Dose: Not Given Documented by: COTEMA Non-Admin Reason: IV Running Tiotropium [place] (Tiotropium [place] 18 Mcg Cap.W.Dev) 1 puff INHALE RDAILY [facility] Last Admin: 08/02/21 08:02 Dose: 1 puff Documented by: NELLA Tizanidine HCl (Tizanidine Hcl 4 Mg Tablet) 4 mg PO BEDTIME [facility] Last Admin: 08/01/21 20:21 Dose: 4 mg Documented by: SENAIT <NIVIA Kennedy - Last Filed: 08/02/21 11:20> Labs CBC & Chem 7: : 07/31/21 03:04 08/02/21 05:53 <NIVIA Kennedy - Last Filed: 08/02/21 11:20> Labs: Laboratory Results - last 24 hr 08/01/21 08/02/21 10:47 05:53 Anion Gap 8 L 12 Estim Creat Clear Calc 85.3 87.8 Estimated GFR > 60 > 60 Random Glucose 104 104 Calcium 8.9 D 9.0 Phosphorus 3.0 3.3 Magnesium 2.4 2.5 Albumin 3.7 Triglycerides 77 <NIVIA Kennedy - Last Filed: 08/02/21 11:20> Microbiology Microbiology Results: Microbiology 07/31/21 07:19 Blood Culture - Preliminary Blood - Venous No growth after 48 hours. 07/31/21 07:19 Blood Culture - Preliminary Blood - Venous No growth after 48 hours. 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 Her presentation is concerning for acute colitis -- infectious vs secondary to Crohn's flare. 1. Acute Colitis 1a. Acute on Chronic abdominal pain Infectious vs Inflammatory (secondary to Crohn's flare) stool studies pending - no further diarrhea so far to send for stool studies in light of her known CVID) will cover with antibiotics - continue IV ceftriaxone Seen by GI, rec IV steroids with transition to prednisone taper, see GI note for full taper protocol; likely transition to oral steroids in am wean IV narcotics and transition to home po pain meds 2. Seizure d/o continue Keppra 3. History of PE/DVT continue Eliquis 4. Chronic TPN use will continue with TPN in house clear liquids as tolerated 5. Chronic Asthma continue baseline inhalers Continue her other baseline meds as appropriate. Full Code DVT pptx, Eliquis Attending: dr. Arenas The patient requires continued hospital stay due to acute colitis, IV antibiotics/steroids, IVF fluids, TPN. 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 Her presentation is concerning for acute colitis -- infectious vs secondary to Crohn's flare. 1. Acute Colitis 1a. Acute on Chronic abdominal pain Infectious vs Inflammatory (secondary to Crohn's flare) stool studies pending - no further diarrhea so far to send for stool studies in light of her known CVID) will cover with antibiotics - continue IV ceftriaxone Seen by GI, rec IV steroids with transition to prednisone taper, see GI note for full taper protocol; likely transition to oral steroids in am wean IV narcotics and transition to home po pain meds 2. Seizure d/o continue Keppra 3. History of PE/DVT continue Eliquis 4. Chronic TPN use will continue with TPN in house clear liquids as tolerated 5. Chronic Asthma continue baseline inhalers Continue her other baseline meds as appropriate. Full Code DVT pptx, Elidavidis Attending: dr. Arenas The patient requires continued hospital stay due to acute colitis, IV antib iotics/steroids, IVF fluids, TPN. Ongoing abdominal pain requiring IV narcotics, frequent use of IV antiemetics Pt seen/examined. Agree with H+P/physical exam and assessment /plan as outlined by Ms. Becerra <Andrés Arenas DO - Last Filed: 08/02/21 13:00> Quality Stroke Does the patient have a stroke diagnosis?: No <NIVIA Kennedy - Last Filed: 08/02/21 11:20> VTE Prior VTE?: No <NIVIA Kennedy - Last Filed: 08/02/21 11:20> VTE Risk Level:: Medical - moderate - high <NIVIA Kennedy - Last Filed: 08/02/21 11:20> VTE Device Contraindication: Treatment Not Indicated <NIVIA Kennedy - Last Filed: 08/02/21 11:20> VTE Drug Contraindication: N/A - Med Ordered <NIVIA Kennedy - Last Filed: 08/02/21 11:20>
[2021-08-02] MEDS: HYDROmorphone HCl 1 MG/ML SYRINGE 0.5 MG IVPUSH ×4 (10:40→23:17)
[2021-08-02] MEDS: Promethazine HCL 25 MG TABLET PO (10:45)
[2021-08-02] MEDS: TiZANidine HCL 4 MG TABLET PO (20:29)
[2021-08-03] MEDS: HYDROmorphone HCl 1 MG/ML SYRINGE 0.5 MG IVPUSH ×2 (03:28→08:58)
[2021-08-03] MEDS: ondansetron HCL 4 MG/2 ML VIAL IVPUSH ×4 (03:29→21:52)
[2021-08-03] MEDS: diphenhydrAMINE HCL 50 MG/ML VIAL 25 MG IV ×4 (03:31→21:52)
[2021-08-03] MEDS: cefTRIAXone sodium 1 GM in 0.9 % Sodium Chloride 50 ML IV (05:51)
[2021-08-03 07:27] VITALS: BP 98/56; PULSE 65; RESP 18; TEMP 36.2; O2SAT 100
[2021-08-03] MEDS: Fluticasone/Vilanterol 200/25 BLST.W.DEV 1 PUFF INHALE (08:19)
[2021-08-03 08:22] VITALS: PULSE 66; RESP 18; O2SAT 99
[2021-08-03] MEDS: predniSONE 20 MG TABLET 40 MG PO (08:57)
[2021-08-03] MEDS: Apixaban 5 MG TABLET PO ×2 (08:57→21:43)
[2021-08-03 08:58] VITALS: RESP 16
[2021-08-03] MEDS: 0.9 % Sodium Chloride Flush 3 ML SYRINGE IVFLUSH ×2 (08:58→15:50)
[2021-08-03] MEDS: levETIRAcetam Oral Soln 500 MG/5 ML 700 MG PO ×2 (08:58→21:43)
[2021-08-03 09:47] LABS: Anion Gap 13 (12-20); Blood Urea Nitrogen 21 mg/dL (9-16); Calcium 8.6 mg/dL (8.4-10.2); Carbon Dioxide 26 mmol/L (22-29); Chloride 107 mmol/L (96-108); Creatinine Clr Calc Pharmacy 81.8; Estimated Glomerular Filt Rate > 60; Glucose Fasting 91 mg/dL (60-99); Magnesium 2.5 mg/dL (1.6-2.6); Phosphorus 3.9 mg/dL (2.7-4.5); Potassium 3.8 mmol/L (3.3-5.1); Sodium 142 mmol/L (135-145)
--- NOTE | 2021-08-03 10:32 | P.PNIM_ITS ---
Subjective Subjective Date of Service: 08/03/21 Interval History: Complaining of persistent abdominal discomfort and nausea, decreased by mouth intake , no bowel movement in last 2 days, no fevers, no chills, no acute events overnight Review of Systems Review of Systems: Yes all other systems are reviewed and are negative Physical Exam Vital Signs: Vital Signs: Last Vital Signs Temp 97.1 F 08/03/21 07:27 Pulse 65 08/03/21 07:27 Resp 16 08/03/21 08:58 BP 98/56 L 08/03/21 07:27 Pulse Ox 100 08/03/21 07:27 BMI result Body Mass Index 26.2 Const: Other: General resting comfortably, no acute distress Neck supple no JVD. CVS regular rate rhythm, Respiratory lungs clear to auscultation, no respiratory distress, no wheeze, no rhonchi. Gastrointestinal abdomen soft, diffuse tenderness to palpation, no guarding, no rigidity, no rebound, no distention Extremities no edema. Neuro nonfocal Skin no rash Cyst musculoskeletal no deformity Objective Data Active Medications Acetaminophen (Acetaminophen 325 Mg Tablet) 650 mg PO Q6H PRN PRN Reason: Pain, Mild (Pain Scale 1-3) Last Admin: 07/31/21 21:28 Dose: 650 mg Documented by: FIORDALIZA Apixaban (Apixaban 5 Mg Tablet) 5 mg PO BID [facility] Last Admin: 08/03/21 08:57 Dose: 5 mg Documented by: LISA Diphenhydramine HCl (Diphenhydramine Hcl 50 Mg/Ml Vial) 25 mg IV QID PRN PRN Reason: Nausea Last Admin: 08/03/21 08:58 Dose: 25 mg Documented by: LISA Fluticasone/Vilanterol (Fluticasone/Vilanterol 200/25 Blst.W.Dev) 1 puff INHALE RDAILY [facility] Last Admin: 08/03/21 08:19 Dose: 1 puff Documented by: BRESNE Hydromorphone HCl (Hydromorphone Hcl 1 Mg/Ml Syringe) 1 mg IVPUSH Q6H PRN; Protocol PRN Reason: Pain, Severe (Pain Scale 7-10) Ceftriaxone Sodium 1 gm/ (Sodium Chloride) 50 mls @ 100 mls/hr IV Q24H [facility] Last Infusion: 08/03/21 06:41 Dose: 0 mls/hr Documented by: GLORIA Potassium Chloride 60 meq/Sodium Chloride 100 meq/Magnesium Sulfate 10 meq/Calcium Gluconate 9.3 meq/Sodium Acetate 100 meq/ Amino Acids/Dextrose 1,560 mls @ 65 mls/hr IVCONT DAILY@1800 [facility] Stop: 08/03/21 17:59 Last Admin: 08/02/21 17:34 Dose: 65 mls/hr Documented by: EMMANUEL Levetiracetam (Levetiracetam Oral Soln 500 Mg/5 Ml) 700 mg PO BID [facility] Last Admin: 08/03/21 08:58 Dose: 700 mg Documented by: LISA Lidocaine (Lidocaine 4 % Patch Adh..Patch) 1 patch TRANSDERMA DAILY [facility]; Protocol Omeprazole (Omeprazole 20 Mg Capsule.Dr) 20 mg PO DAILY@0630 [facility] Ondansetron HCl (Ondansetron Hcl 4 Mg/2 Ml Vial) 4 mg IVPUSH Q6H PRN PRN Reason: Nausea and Vomiting Pharmacy Consult (Consult Rx Perform Med Rec) 1 each MISCELLANE ONCE PRN PRN Reason: Consult order Prednisone (Prednisone 20 Mg Tablet) 40 mg PO DAILY [facility] Last Admin: 08/03/21 08:57 Dose: 40 mg Documented by: LISA Sodium Chloride (0.9 % Sodium Chloride Flush 3 Ml Syringe) 3 ml IVFLUSH QSHIFT [facility] Last Admin: 08/03/21 08:58 Dose: 3 ml Documented by: LISA Tiotropium [place] (Tiotropium [place] 18 Mcg Cap.W.Dev) 1 puff INHALE RDAILY [facility] Last Admin: 08/03/21 08:19 Dose: 1 puff Documented by: KARIE Tizanidine HCl (Tizanidine Hcl 4 Mg Tablet) 4 mg PO BEDTIME [facility] Last Admin: 08/02/21 20:29 Dose: 4 mg Documented by: GLORIA Labs CBC & Chem 7: 07/31/21 03:04 08/03/21 09:26 Labs: Laboratory Results - last 24 hr 08/03/21 09:26 Anion Gap 13 Estim Creat Clear Calc 81.8 Estimated GFR > 60 Random Glucose TNP Fasting Glucose 91 Calcium 8.6 Phosphorus 3.9 Magnesium 2.5 Microbiology Microbiology Results: Microbiology 03/11/22 07:19 Blood Culture - Preliminary Blood - Venous No growth after 48 hours. 07/31/21 07:19 Blood Culture - Preliminary Blood - Venous No growth after 48 hours. 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 Her presentation is concerning for acute colitis -- infectious vs secondary to Crohn's flare. 1. Acute Colitis Persistent abdominal pain, and nausea patient provides history of chronic abdo yana pain with recurrent flares on home TPN x8 months Infectious vs Inflammatory (secondary to Crohn's flare) stool studies not sent since no further diarrhea in last 48 hours Continue IV ceftriaxone day 3, continue supportive care with antiemetics, IV analgesics will adjust dose of Dilaudid to 1 mg q.6 hours as needed, patient takes Dilaudid 4 mg t.i.d. as needed at home Since patient with decreased by mouth intake and persistent pain will continue IV steroids and obtain GI eval due to significant findings on CT abdomen, not present on prior CT scans. Recommend out of bed to chair as tolerated Seen by GI, rec IV steroids with transition to prednisone po and outpatient follow-up with Dr. Lugo and Rheumatology to start Humira 2. Seizure d/o continue Keppra, add seizure precautions 3. History of PE/DVT continue Eliquis 4. Chronic TPN use will continue with TPN in house due to persistent decreased by mouth intake Advanced to full liquid as tolerated 5. Chronic Asthma continue baseline inhalers, no acute exacerbation Full Code DVT pptx, Eliquis patient requires continued hospital stay due to acute colitis, IV antibiotics/steroids, persistent nausea with decreased by mouth intake on TPN, requiring IV narcotics,and IV antiemetics . Quality Stroke Does the patient have a stroke diagnosis?: No VTE Prior VTE?: No VTE Risk Level:: Medical - moderate - high VTE Device Contraindication: Treatment Not Indicated VTE Drug Contraindication: N/A - Med Ordered
[2021-08-03] MEDS: Lidocaine 4 % Patch ADH..PATCH 1 PATCH TRANSDERMA (12:02)
[2021-08-03] MEDS: Omeprazole 20 MG CAPSULE.DR PO (12:02)
[2021-08-03 13:34] VITALS: BMI 26.2
--- NOTE | 2021-08-03 13:59 | MHC.CLN ---
F/U COMMUNICATED WITH MD AND PHARMACY. CONTINUE CURRENT TPN AND LIPIDS: D15AA5% AT 65ML/HR, ADD 18ML OF 20% LIPIDS TO PROVIDE 1540 KCALS TOTAL (25KCALS/KG), 78G PROTEIN (1.28G/KG). TPN AND LIPIDS AT MAX GOAL RATE. REPLETE LYTES NEEDED.
--- NOTE | 2021-08-03 14:49 | PM.CNGS ---
History of Present Illness Consult details Consult date: 08/03/21 Narrative: [age] year old female referred for abdominal pain. She was admitted 3 days ago because of abdominal pain, nausea, and vomiting. She actually has multiple medical problems including Behcet's syndrome with Crohn's disease, gastroparesis, and history of pulmonary embolism. She has had chronic abdominal pain. She is being followed by GI in [place] for this. She has been on TPN for several months because of inability to tolerate oral intake. She also had a previous gastrojejunostomy because of her gastroparesis. She says she has chronic abdominal pain but she says that since February, she has had episodes of more severe pain. This is the 4th time that she was admitted for this abdominal pain nausea and vomiting since February. She says she is unable to tolerate did take well and is on clear liquids. She says that her Crohn's disease in involve her colon before although she says the last time she thinks she was on steroids was last year. She denies any diarrhea or constipation. She had a CAT scan on admission showing diffuse thickening of the colon wall throughout the entire length of the colon itself. There were no other inflammatory changes. Review of Systems Constitutional: Constitutional: Denies chills and Denies fever(s) Cardiovascular: Cardiovascular: Denies chest pain Respiratory: Respiratory: Denies cough Gastrointestinal: Gastrointestinal: Reports bloating, Reports nausea and Reports vomiting Genitourinary: Genitourinary: Denies urinary frequency Neurologic: Denies focal weakness PMFSH Past Medical History Medical History Abdominal pain Abdominal pain, chronic, generalized Asthma Behcet's disease Cervicalgia Chronic pain syndrome Common variable immunodeficiency Crohn's disease DVT (deep venous thrombosis) Gastroparesis Low back pain Pyloric stenosis Spondylolisthesis, lumbar region Spondylosis of lumbar region without myelopathy or radiculopathy Spontaneous pneumothorax Family History Family History Father Hairy cell leukemia Surgical History Surgical History History of hernia surgery Social History Social History Household Members: Other Household Members Other:: son Housing: Condominium Do you presently have visiting nurse or other home services: Yes Alcohol intake: never Patient Tobacco Use Status: Never used Tobacco Advance Directives Date on File: 03/12/21 service: No Current occupational status: unemployed Meds Allergies Allergy/AdvReac Type Severity Reaction Status Date / Time ciprofloxacin [Cipro] Allergy Unknown unknown Verified 07/15/21 09:05 levofloxacin [Levaquin] Allergy Unknown unknown Verified 07/15/21 09:05 metoclopramide [Reglan] Allergy Unknown unknown Verified 07/15/21 09:05 ondansetron [Zofran] Allergy Unknown unknown Verified 07/15/21 09:05 penicillin V Allergy Unknown unknown Verified 07/15/21 09:05 Sulfa (Sulfonamide Allergy Unknown unknown Verified 07/15/21 09:05 Antibiotics) prochlorperazine Allergy unknown Verified 07/15/21 09:05 [From Compazine] thalidomide [From Thalomid] Allergy unknown Verified 07/15/21 09:05 Active Medications: Current Medications Acetaminophen (Acetaminophen 325 Mg Tablet) 650 mg PO Q6H PRN PRN Reason: Pain, Mild (Pain Scale 1-3) Last Admin: 07/31/21 21:28 Dose: 650 mg Documented by: Apixaban (Apixaban 5 Mg Tablet) 5 mg PO BID [facility] Last Admin: 08/03/21 08:57 Dose: 5 mg Documented by: Diphenhydramine HCl (Diphenhydramine Hcl 50 Mg/Ml Vial) 25 mg IV QID PRN PRN Reason: Nausea Last Admin: 08/03/21 08:58 Dose: 25 mg Documented by: Fluticasone/Vilanterol (Fluticasone/Vilanterol 200/25 Blst.W.Dev) 1 puff INHALE RDAILY [facility] Last Admin: 08/03/21 08:19 Dose: 1 puff Documented by: Hydromorphone HCl (Hydromorphone Hcl 1 Mg/Ml Syringe) 1 mg IVPUSH Q6H PRN; Protocol PRN Reason: Pain, Severe (Pain Scale 7-10) Ceftriaxone Sodium 1 gm/ (Sodium Chloride) 50 mls @ 100 mls/hr IV Q24H [facility] Last Infusion: 08/03/21 06:41 Dose: Infused Documented by: Potassium Chloride 60 meq/Sodium Chloride 100 meq/Magnesium Sulfate 10 meq/Calcium Gluconate 9.3 meq/Sodium Acetate 100 meq/ Amino Acids/Dextrose 1,560 mls @ 65 mls/hr IVCONT DAILY@1800 [facility] Stop: 08/03/21 17:59 Last Admin: 08/02/21 17:34 Dose: 65 mls/hr Documented by: Potassium Chloride 60 meq/Sodium Chloride 100 meq/Magnesium Sulfate 10 meq/Calcium Gluconate 9.3 meq/Sodium Acetate 100 meq/Multivitamins 10 ml/ Trace Metals 1 ml/ Amino Acids/Dextrose 1,560 mls @ 65 mls/hr IVCONT DAILY@1800 [facility] Stop: 08/04/21 17:59 Fat Emulsion Intravenous (Intralipid) 216 mls @ 18 mls/hr IVCONT DAILY@1800 [facility] Stop: 08/04/21 05:59 Levetiracetam (Levetiracetam Oral Soln 500 Mg/5 Ml) 700 mg PO BID [facility] Last Admin: 08/03/21 08:58 Dose: 700 mg Documented by: Lidocaine (Lidocaine 4 % Patch Adh..Patch) 1 patch TRANSDERMA DAILY [facility]; Protocol Last Admin: 08/03/21 12:02 Dose: 1 patch Documented by: Methylprednisolone Sodium Succinate (Methylprednisolone Sod Succ 40 Mg/Ml Vial) 40 mg IVPUSH Q12H [facility] Omeprazole (Omeprazole 20 Mg Capsule.Dr) 20 mg PO DAILY@0630 [facility] Last Admin: 08/03/21 12:02 Dose: 20 mg Documented by: Ondansetron HCl (Ondansetron Hcl 4 Mg/2 Ml Vial) 4 mg IVPUSH Q6H PRN PRN Reason: Nausea and Vomiting Pharmacy Consult (Consult Rx Perform Med Rec) 1 each MISCELLANE ONCE PRN PRN Reason: Consult order Sodium Chloride (0.9 % Sodium Chloride Flush 3 Ml Syringe) 3 ml IVFLUSH QSHIFT [facility] Last Admin: 08/03/21 08:58 Dose: 3 ml Documented by: Tiotropium [place] (Tiotropium [place] 18 Mcg Cap.W.Dev) 1 puff INHALE RDAILY [facility] Last Admin: 08/03/21 08:19 Dose: 1 puff Documented by: Tizanidine HCl (Tizanidine Hcl 4 Mg Tablet) 4 mg PO BEDTIME [facility] Last Admin: 08/02/21 20:29 Dose: 4 mg Documented by: Home Medications Medication Instructions Recorded Confirmed Last Taken Type promethazine 25 mg tablet 25 mg PO QID PRN 04/02/20 07/31/21 07/30/21 History tizanidine 4 mg tablet 4 mg PO BEDTIME 04/02/20 07/31/21 07/30/21 History apixaban 5 mg tablet (Eliquis) 5 mg PO BID 09/22/20 07/31/21 07/30/21 History albuterol sulfate 90 mcg/actuation 2 puff INHALATION Q4H PRN 12/12/20 07/31/21 07/30/21 History aerosol inhaler fluticasone furoate 200 1 inh INHALATION Q24H 12/12/20 07/31/21 07/30/21 History mcg-vilanterol 25 mcg/dose inhalation powder (Breo Ellipta) levetiracetam 100 mg/mL oral 7 ml PO BID 12/12/20 07/31/21 07/30/21 History solution umeclidinium 62.5 mcg/actuation 1 inh INHALATION DAILY 12/12/20 07/31/21 07/30/21 History blister powder for inhalation (Incruse Ellipta) acetaminophen 325 mg tablet 650 mg PO Q4H PRN 03/12/21 07/31/21 07/30/21 History diphenhydramine HCl 50 mg/mL 25 mg IV QID PRN 03/12/21 07/31/21 07/30/21 History injection solution ondansetron HCl (PF) 4 mg/2 mL 4 mg IV QID PRN 03/12/21 07/31/21 07/30/21 History injection solution prednisone 20 mg tablet 20 mg PO DAILY 07/31/21 07/31/21 07/30/21 History Physical Exam Vital Signs: Vital Signs: Last Vital Signs Temp 97.1 F 08/03/21 07:27 Pulse 65 08/03/21 07:27 Resp 16 08/03/21 08:58 BP 98/56 L 08/03/21 07:27 Pulse Ox 100 08/03/21 07:27 BMI result Body Mass Index 26.2 Const: General: no acute distress Orientation/consciousness: patient oriented x3 Neck: Neck: Yes no lymphadenopathy Resp: Auscultation: clear to auscultation bilaterally Cardio: Rhythm: regular rhythm GI: Other: Diffusely tender, no guarding rebound Palpation (GI): Soft to palpation, Tenderness to palpation present (GI) and no guarding Neuro: General: patient oriented x3 Results Labs Result diagrams: 07/31/21 03:04 08/03/21 09:26 Labs: Abnormal lab results 08/03/21 Range/Units 09:26 BUN 21 H (9-16) mg/dL BMP 08/03/21 09:26 Sodium 142 Potassium 3.8 Chloride 107 Carbon Dioxide 26 BUN 21 H Creatinine 0.73 Calcium 8.6 Urine 07/31/21 Range/Units 08:51 Urine Color YELLOW Urine Appearance CLEAR Urine pH 5.5 (5.0-8.0) Ur Specific [place] 1.015 (1.005-1.025) Urine Protein NEG (NEG-TRACE) MG/DL Urine Glucose (UA) NEG (NEG) MG/DL All other labs normal. Imaging Abdomen CT scan report/results: report reviewed and image reviewed CT scan - pelvis: report reviewed and image reviewed Assessment and Plan (1) Abdominal pain: Qualifiers: Abdominal location: lower abdomen, unspecified Qualified Code(s): R10.30 - Lower abdominal pain, unspecified Status: Acute She has chronic abdominal pain with frequent episodes of more severe pain than usual along with nausea or vomiting. She says that this is the 4th time that she had this similar pain. She is on TPN and says that she has been unable to tolerate oral intake for months now. She had gastrojejunostomy tube for previous gastroparesis as well. Review of her CT scan shows that she has this diffuse thickening of the entire colon wall suggestive of some form of colitis. I am uncertain as to how these changes have been in view of her long history of GI complaints. I do not see any surgical issue at this time otherwise. She should stay on TPN and clear liquids. I would suggest follow-up with a pediatric orthodontist. It may be worthwhile to check her stools for C diff. I will follow along while she is in the hospital. Procedures Date of Service Date of Service: 08/03/21
[2021-08-03 15:50] VITALS: RESP 16
[2021-08-03] MEDS: HYDROmorphone HCl 1 MG/ML SYRINGE IVPUSH ×2 (15:50→21:53)
[2021-08-03] MEDS: methylPREDNISolone Sod Succ 40 MG/ML VIAL IVPUSH (15:50)
[2021-08-03 16:00] VITALS: BP 104/67; PULSE 76; RESP 18; TEMP 36.4; O2SAT 99
[2021-08-03] MEDS: Fat Emulsions 20% 250 ML 18 ML IVCONT (18:17)
[2021-08-03] MEDS: TiZANidine HCL 4 MG TABLET PO (21:43)
[2021-08-03 23:21] VITALS: BP 110/61; PULSE 64; RESP 17; TEMP 36.3; O2SAT 96
[2021-08-04] MEDS: methylPREDNISolone Sod Succ 40 MG/ML VIAL IVPUSH ×2 (02:15→15:48)
[2021-08-04] MEDS: diphenhydrAMINE HCL 50 MG/ML VIAL 25 MG IV ×4 (04:03→21:59)
[2021-08-04] MEDS: HYDROmorphone HCl 1 MG/ML SYRINGE IVPUSH ×4 (04:03→21:58)
[2021-08-04] MEDS: ondansetron HCL 4 MG/2 ML VIAL IVPUSH ×4 (04:04→21:59)
[2021-08-04] MEDS: Omeprazole 20 MG CAPSULE.DR PO (05:14)
[2021-08-04] MEDS: cefTRIAXone sodium 1 GM in 0.9 % Sodium Chloride 50 ML IV (05:14)
[2021-08-04 07:19] VITALS: BP 115/61; PULSE 56; RESP 18; TEMP 36; O2SAT 97
[2021-08-04] MEDS: Fluticasone/Vilanterol 200/25 BLST.W.DEV 1 PUFF INHALE (08:13)
[2021-08-04 08:15] VITALS: PULSE 64; RESP 16; O2SAT 98
[2021-08-04] MEDS: levETIRAcetam Oral Soln 500 MG/5 ML 700 MG PO ×2 (08:32→20:52)
[2021-08-04] MEDS: Apixaban 5 MG TABLET PO ×2 (08:32→20:52)
[2021-08-04] MEDS: Lidocaine 4 % Patch ADH..PATCH 1 PATCH TRANSDERMA (08:38)
[2021-08-04 10:14] VITALS: RESP 16
[2021-08-04] MEDS: 0.9 % Sodium Chloride Flush 3 ML SYRINGE IVFLUSH ×2 (10:16→20:55)
--- NOTE | 2021-08-04 11:14 | HO.PM.IMPN ---
Subjective Subjective Date of Service: 08/04/21 Interval History: Feeling better this morning less abdominal pain, tolerating full liquid diet, no nausea, no vomiting, had a bowel movements, no acute overnight events, no fevers,no chills. Review of Systems Review of Systems: Yes all other systems are reviewed and are negative Physical Exam Vital Signs: Vital Signs: Last Vital Signs Temp 96.8 F 08/04/21 07:19 Pulse 56 08/04/21 07:19 Resp 16 08/04/21 10:14 BP 115/61 08/04/21 07:19 Pulse Ox 97 08/04/21 07:19 BMI result Body Mass Index 26.2 Const: Other: General resting comfortably, no acute distress? Neck? supple no JVD. CVS? regular rate rhythm, Respiratory lungs clear to auscultation, no respiratory distress, no wheeze, no rhonchi. Gastrointestinal abdomen soft, tenderness left lower quadrant , no guarding, no rigidity, no rebound, no distention? Extremities no edema. Neuro nonfocal Skin no rash musculoskeletal no deformity Objective Data Active Medications Acetaminophen (Acetaminophen 325 Mg Tablet) 650 mg PO Q6H PRN PRN Reason: Pain, Mild (Pain Scale 1-3) Last Admin: 07/31/21 21:28 Dose: 650 mg Documented by: FIORDALIZA Apixaban (Apixaban 5 Mg Tablet) 5 mg PO BID [facility] Last Admin: 08/04/21 08:32 Dose: 5 mg Documented by: LISA Diphenhydramine HCl (Diphenhydramine Hcl 50 Mg/Ml Vial) 25 mg IV QID PRN PRN Reason: Nausea Last Admin: 08/04/21 10:14 Dose: 25 mg Documented by: LISA Fluticasone/Vilanterol (Fluticasone/Vilanterol 200/25 Blst.W.Dev) 1 puff INHALE RDAILY [facility] Last Admin: 08/04/21 08:13 Dose: 1 puff Documented by: KARIE Hydromorphone HCl (Hydromorphone Hcl 1 Mg/Ml Syringe) 1 mg IVPUSH Q6H PRN; Protocol PRN Reason: Pain, Severe (Pain Scale 7-10) Last Admin: 08/04/21 10:14 Dose: 1 mg Documented by: LISA Ceftriaxone Sodium 1 gm/ (Sodium Chloride) 50 mls @ 100 mls/hr IV Q24H [facility] Last Infusion: 08/04/21 06:04 Dose: 100 mls/hr Documented by: DONNA Potassium Chloride 60 meq/Sodium Chloride 100 meq/Magnesium Sulfate 10 meq/Calcium Gluconate 9.3 meq/Sodium Acetate 100 meq/Multivitamins 10 ml/ Trace Metals 1 ml/ Amino Acids/Dextrose 1,560 mls @ 65 mls/hr IVCONT DAILY@1800 [facility] Stop: 08/04/21 17:59 Last Admin: 08/03/21 18:16 Dose: 65 mls/hr Documented by: LISA Potassium Chloride 60 meq/Sodium Chloride 100 meq/Magnesium Sulfate 10 meq/Calcium Gluconate 9.3 meq/Sodium Acetate 100 meq/ Amino Acids/Dextrose 1,560 mls @ 65 mls/hr IVCONT DAILY@1800 [facility] Stop: 08/05/21 17:59 Fat Emulsion Intravenous (Intralipid) 216 mls @ 18 mls/hr IVCONT DAILY@1800 [facility] Stop: 08/05/21 05:59 Levetiracetam (Levetiracetam Oral Soln 500 Mg/5 Ml) 700 mg PO BID [facility] Last Admin: 08/04/21 08:32 Dose: 700 mg Documented by: LISA Lidocaine (Lidocaine 4 % Patch Adh..Patch) 1 patch TRANSDERMA DAILY [facility]; Protocol Last Admin: 08/04/21 08:38 Dose: 1 patch Documented by: LISA Methylprednisolone Sodium Succinate (Methylprednisolone Sod Succ 40 Mg/Ml Vial) 40 mg IVPUSH Q12H [facility] Last Admin: 08/04/21 02:15 Dose: 40 mg Documented by: DONNA Omeprazole (Omeprazole 20 Mg Capsule.Dr) 20 mg PO DAILY@0630 [facility] Last Admin: 08/04/21 05:14 Dose: 20 mg Documented by: DONNA Ondansetron HCl (Ondansetron Hcl 4 Mg/2 Ml Vial) 4 mg IVPUSH Q6H PRN PRN Reason: Nausea and Vomiting Last Admin: 08/04/21 10:14 Dose: 4 mg Documented by: LISA Pharmacy Consult (Consult Rx Perform Med Rec) 1 each MISCELLANE ONCE PRN PRN Reason: Consult order Sodium Chloride (0.9 % Sodium Chloride Flush 3 Ml Syringe) 3 ml IVFLUSH QSHIFT [facility] Last Admin: 08/04/21 10:16 Dose: 3 ml Documented by: LISA Tiotropium [place] (Tiotropium [place] 18 Mcg Cap.W.Dev) 1 puff INHALE RDAILY [facility] Last Admin: 08/04/21 08:13 Dose: 1 puff Documented by: KARIE Tizanidine HCl (Tizanidine Hcl 4 Mg Tablet) 4 mg PO BEDTIME [facility] Last Admin: 08/03/21 21:43 Dose: 4 mg Documented by: DONNA Labs CBC & Chem 7: 07/31/21 03:04 08/03/21 09:26 Assessment and Plan (1) Crohn's disease: Status: Acute Plan 40 year old F with a PMH Behcet's syndrome, Crohn's disease, gastroparesis, PE/DVT - on Eliquis, chronic pain, common variable immunodeficiency, amongst others who presents to [facility] today with complaints of abdominal pain with associated nausea, vomiting and diarrhea. Her presentation is concerning for acute colitis -- infectious vs secondary to Crohn's flare. 1. Acute Colitis abdominal pain better this a.m., no nausea, feels better tolerating diet has history of chronic abdominal pain with recurrent flares on home TPN x8 months Infectious vs Inflammatory (secondary to Crohn's flare) blood cultures x2 no growth leukocytosis likely due to steroid/infection stool studies not sent since no further diarrhea Continue IV ceftriaxone day 4, continue supportive care with antiemetics, IV Dilaudid 1 mg q.6 hours as needed, patient takes Dilaudid 4 mg t.i.d. as needed at home Since patient with decreased by mouth intake and persistent pain will continue IV steroids Recommend out of bed to chair as tolerated Seen by GI, rec IV steroids with transition to prednisone po and outpatient follow-up with Dr. Lugo and Rheumatology to start Humira Obtain surgical consult patient seen by Dr. Lorenzo no surgical intervention recommended he agrees with current treatment Follow CBC and BMP at a.m. 2. Seizure d/o continue Keppra, add seizure precautions 3. History of PE/DVT continue Eliquis 4. Chronic TPN use will continue with TPN in house due to persistent decreased by mouth intake cont. full liquid and gradually advance to low residue 5. Chronic Asthma continue baseline inhalers, no acute exacerbation Full Code DVT pptx, Eliquis patient requires continued hospital stay due to acute colitis, IV antibiotics/steroids, with decreased by mouth intake on TPN, requiring IV narcotics,and IV antiemetics . Quality Stroke Does the patient have a stroke diagnosis?: No VTE Prior VTE?: No VTE Risk Level:: Medical - moderate - high VTE Device Contraindication: Treatment Not Indicated VTE Drug Contraindication: N/A - Med Ordered
--- NOTE | 2021-08-04 11:44 | MHC.CLN ---
F/U DISCUSSED WITH PHARMACY CONTINUE CURRENT TPN AND LIPIDS: D15AA5% AT 65ML/HR WITH 18ML OF 20% LIPIDS PROVIDES 1540 KCALS TOTAL (25KCALS/KG), 78G PROTEIN (1.28G/KG) TPN AND LIPIDS AT MAX GOAL RATE REPLETE LYTES NEEDED.
--- NOTE | 2021-08-04 12:03 | PM.PNGS ---
Subjective Subjective Date of Service: 08/04/21 Interval history: says she feels the same no diarrhea trying to take some full liquids - she says she only takes liquids at home still with chronic abdl pain Physical Exam Vital Signs: Vital Signs: Last Vital Signs Temp 96.8 F 08/04/21 07:19 Pulse 56 08/04/21 07:19 Resp 16 08/04/21 10:14 BP 115/61 08/04/21 07:19 Pulse Ox 97 08/04/21 07:19 BMI result Body Mass Index 26.2 Const: Other: appears anxious General: no acute distress Resp: Effort & Inspection: normal respiratory effort Cardio: Rate: regular rate GI: Other: nondistended, soft, diffusely tender - she says this is her baseline Objective Data Active Medications Acetaminophen (Acetaminophen 325 Mg Tablet) 650 mg PO Q6H PRN PRN Reason: Pain, Mild (Pain Scale 1-3) Last Admin: 07/31/21 21:28 Dose: 650 mg Documented by: FIORDALIZA Apixaban (Apixaban 5 Mg Tablet) 5 mg PO BID COUNTS INCLUDE 234 BEDS AT THE [facility] Last Admin: 08/04/21 08:32 Dose: 5 mg Documented by: LISA Diphenhydramine HCl (Diphenhydramine Hcl 50 Mg/Ml Vial) 25 mg IV QID PRN PRN Reason: Nausea Last Admin: 08/04/21 10:14 Dose: 25 mg Documented by: LISA Fluticasone/Vilanterol (Fluticasone/Vilanterol 200/25 Blst.W.Dev) 1 puff INHALE RDAILY COUNTS INCLUDE 234 BEDS AT THE [facility] Last Admin: 08/04/21 08:13 Dose: 1 puff Documented by: KARIE Hydromorphone HCl (Hydromorphone Hcl 1 Mg/Ml Syringe) 1 mg IVPUSH Q6H PRN; Protocol PRN Reason: Pain, Severe (Pain Scale 7-10) Last Admin: 08/04/21 10:14 Dose: 1 mg Documented by: LISA Ceftriaxone Sodium 1 gm/ (Sodium Chloride) 50 mls @ 100 mls/hr IV Q24H COUNTS INCLUDE 234 BEDS AT THE [facility] Last Infusion: 08/04/21 06:04 Dose: 100 mls/hr Documented by: DONNA Potassium Chloride 60 meq/Sodium Chloride 100 meq/Magnesium Sulfate 10 meq/Calcium Gluconate 9.3 meq/Sodium Acetate 100 meq/Multivitamins 10 ml/ Trace Metals 1 ml/ Amino Acids/Dextrose 1,560 mls @ 65 mls/hr IVCONT DAILY@1800 COUNTS INCLUDE 234 BEDS AT THE [facility] Stop: 08/04/21 17:59 Last Admin: 08/03/21 18:16 Dose: 65 mls/hr Documented by: LISA Potassium Chloride 60 meq/Sodium Chloride 100 meq/Magnesium Sulfate 10 meq/Calcium Gluconate 9.3 meq/Sodium Acetate 100 meq/ Amino Acids/Dextrose 1,560 mls @ 65 mls/hr IVCONT DAILY@1800 COUNTS INCLUDE 234 BEDS AT THE [facility] Stop: 08/05/21 17:59 Fat Emulsion Intravenous (Intralipid) 216 mls @ 18 mls/hr IVCONT DAILY@1800 COUNTS INCLUDE 234 BEDS AT THE [facility] Stop: 08/05/21 05:59 Levetiracetam (Levetiracetam Oral Soln 500 Mg/5 Ml) 700 mg PO BID COUNTS INCLUDE 234 BEDS AT THE [facility] Last Admin: 08/04/21 08:32 Dose: 700 mg Documented by: LISA Lidocaine (Lidocaine 4 % Patch Adh..Patch) 1 patch TRANSDERMA DAILY COUNTS INCLUDE 234 BEDS AT THE [facility]; Protocol Last Admin: 08/04/21 08:38 Dose: 1 patch Documented by: LISA Methylprednisolone Sodium Succinate (Methylprednisolone Sod Succ 40 Mg/Ml Vial) 40 mg IVPUSH Q12H COUNTS INCLUDE 234 BEDS AT THE [facility] Last Admin: 08/04/21 02:15 Dose: 40 mg Documented by: DONNA Omeprazole (Omeprazole 20 Mg Capsule.Dr) 20 mg PO DAILY@0630 COUNTS INCLUDE 234 BEDS AT THE [facility] Last Admin: 08/04/21 05:14 Dose: 20 mg Documented by: DONNA Ondansetron HCl (Ondansetron Hcl 4 Mg/2 Ml Vial) 4 mg IVPUSH Q6H PRN PRN Reason: Nausea and Vomiting Last Admin: 08/04/21 10:14 Dose: 4 mg Documented by: LISA Pharmacy Consult (Consult Rx Perform Med Rec) 1 each MISCELLANE ONCE PRN PRN Reason: Consult order Sodium Chloride (0.9 % Sodium Chloride Flush 3 Ml Syringe) 3 ml IVFLUSH QSHIFT COUNTS INCLUDE 234 BEDS AT THE [facility] Last Admin: 08/04/21 10:16 Dose: 3 ml Documented by: LISA Tiotropium Teec Nos Pos (Tiotropium Te[place] Nos Pos 18 Mcg Cap.W.Dev) 1 puff INHALE RDAILY COUNTS INCLUDE 234 BEDS AT THE [facility] Last Admin: 08/04/21 08:13 Dose: 1 puff Documented by: KARIE Tizanidine HCl (Tizanidine Hcl 4 Mg Tablet) 4 mg PO BEDTIME COUNTS INCLUDE 234 BEDS AT THE [facility] Last Admin: 08/03/21 21:43 Dose: 4 mg Documented by: DONNA Labs CBC & Chem 7: 07/31/21 03:04 08/03/21 09:26 Procedures Date of Service Date of Service: 08/04/21 Progress Note: A&P Assessment and plan (1) Abdominal pain: Status: Acute Plan has chronic pain on TPN at home - she has had inability to take PO intake no diarrhea diffue thickening of colon on CT -likely chronic GI ffup no surgical issues at this time Fall Risk Details Current Medications: Current Medications Acetaminophen (Acetaminophen 325 Mg Tablet) 650 mg PO Q6H PRN PRN Reason: Pain, Mild (Pain Scale 1-3) Last Admin: 07/31/21 21:28 Dose: 650 mg Documented by: Apixaban (Apixaban 5 Mg Tablet) 5 mg PO BID COUNTS INCLUDE 234 BEDS AT THE [facility] Last Admin: 08/04/21 08:32 Dose: 5 mg Documented by: Diphenhydramine HCl (Diphenhydramine Hcl 50 Mg/Ml Vial) 25 mg IV QID PRN PRN Reason: Nausea Last Admin: 08/04/21 10:14 Dose: 25 mg Documented by: Fluticasone/Vilanterol (Fluticasone/Vilanterol 200/25 Blst.W.Dev) 1 puff INHALE RDAILY COUNTS INCLUDE 234 BEDS AT THE [facility] Last Admin: 08/04/21 08:13 Dose: 1 puff Documented by: Hydromorphone HCl (Hydromorphone Hcl 1 Mg/Ml Syringe) 1 mg IVPUSH Q6H PRN; Protocol PRN Reason: Pain, Severe (Pain Scale 7-10) Last Admin: 08/04/21 10:14 Dose: 1 mg Documented by: Ceftriaxone Sodium 1 gm/ (Sodium Chloride) 50 mls @ 100 mls/hr IV Q24H COUNTS INCLUDE 234 BEDS AT THE [facility] Last Infusion: 08/04/21 06:04 Dose: Infused Documented by: Potassium Chloride 60 meq/Sodium Chloride 100 meq/Magnesium Sulfate 10 meq/Calcium Gluconate 9.3 meq/Sodium Acetate 100 meq/Multivitamins 10 ml/ Trace Metals 1 ml/ Amino Acids/Dextrose 1,560 mls @ 65 mls/hr IVCONT DAILY@1800 COUNTS INCLUDE 234 BEDS AT THE [facility] Stop: 08/04/21 17:59 Last Admin: 08/03/21 18:16 Dose: 65 mls/hr Documented by: Potassium Chloride 60 meq/Sodium Chloride 100 meq/Magnesium Sulfate 10 meq/Calcium Gluconate 9.3 meq/Sodium Acetate 100 meq/ Amino Acids/Dextrose 1,560 mls @ 65 mls/hr IVCONT DAILY@1800 COUNTS INCLUDE 234 BEDS AT THE [facility] Stop: 08/05/21 17:59 Fat Emulsion Intravenous (Intralipid) 216 mls @ 18 mls/hr IVCONT DAILY@1800 COUNTS INCLUDE 234 BEDS AT THE [facility] Stop: 08/05/21 05:59 Levetiracetam (Levetiracetam Oral Soln 500 Mg/5 Ml) 700 mg PO BID COUNTS INCLUDE 234 BEDS AT THE [facility] Last Admin: 08/04/21 08:32 Dose: 700 mg Documented by: Lidocaine (Lidocaine 4 % Patch Adh..Patch) 1 patch TRANSDERMA DAILY COUNTS INCLUDE 234 BEDS AT THE [facility]; Protocol Last Admin: 08/04/21 08:38 Dose: 1 patch Documented by: Methylprednisolone Sodium Succinate (Methylprednisolone Sod Succ 40 Mg/Ml Vial) 40 mg IVPUSH Q12H COUNTS INCLUDE 234 BEDS AT THE [facility] Last Admin: 08/04/21 02:15 Dose: 40 mg Documented by: Omeprazole (Omeprazole 20 Mg Capsule.Dr) 20 mg PO DAILY@0630 COUNTS INCLUDE 234 BEDS AT THE [facility] Last Admin: 08/04/21 05:14 Dose: 20 mg Documented by: Ondansetron HCl (Ondansetron Hcl 4 Mg/2 Ml Vial) 4 mg IVPUSH Q6H PRN PRN Reason: Nausea and Vomiting Last Admin: 08/04/21 10:14 Dose: 4 mg Documented by: Pharmacy Consult (Consult Rx Perform Med Rec) 1 each MISCELLANE ONCE PRN PRN Reason: Consult order Sodium Chloride (0.9 % Sodium Chloride Flush 3 Ml Syringe) 3 ml IVFLUSH QSHIFT COUNTS INCLUDE 234 BEDS AT THE [facility] Last Admin: 08/04/21 10:16 Dose: 3 ml Documented by: Tiotropium Teec Nos Pos (Tiotropium Te[place] Nos Pos 18 Mcg Cap.W.Dev) 1 puff INHALE RDAILY COUNTS INCLUDE 234 BEDS AT THE [facility] Last Admin: 08/04/21 08:13 Dose: 1 puff Documented by: Tizanidine HCl (Tizanidine Hcl 4 Mg Tablet) 4 mg PO BEDTIME COUNTS INCLUDE 234 BEDS AT THE [facility] Last Admin: 08/03/21 21:43 Dose: 4 mg Documented by: Time Spent With Patient Time: Total time spent is greater than 50% in coordination of care (as documented) at patient's floor/unit and/or counseling patient: Time with patient: 15 - 24 minutes Quality Stroke Does the patient have a stroke diagnosis?: No VTE Prior VTE?: No VTE Risk Level:: Medical - moderate - high VTE Device Contraindication: Treatment Not Indicated VTE Drug Contraindication: N/A - Med Ordered
--- NOTE | 2021-08-04 15:07 | MHC.CM.PN ---
NURSE DIE KEEPER NOTE ELECTRONIC MEDICA RECORD REVIEWED ALONG WITH CASE DISCUSSED ON PATIENT CARE ROUNDS , SPOJKE WITH [facility] WITH [facility]PN ORDERS SENT VIA [employer] TO [facility] . PATIENT IS AWARE THAT SHE WILL BE DISCHARGED TOMORROW IF MEDICALLY STABLE AND ALL LABS ARE OK [facility] IS ALSO AWARE THAT SHE IS ANTICIPATED TO BE DISCHARGED TOMORROW DISCHARGE PLAN HOME WITH [facility] FOR [facility] WILL NEED PIC LINE NEW FLUSH ORDERS TO BE FAXED TO THEM
[2021-08-04 16:00] VITALS: BP 106/59; PULSE 75; RESP 18; TEMP 35.9; O2SAT 99
[2021-08-04] MEDS: Fat Emulsions 20% 250 ML 18 ML IVCONT (18:20)
[2021-08-04] MEDS: TiZANidine HCL 4 MG TABLET PO (20:52)
[2021-08-04 23:27] VITALS: BP 107/55; PULSE 61; RESP 14; TEMP 35.7; O2SAT 95
[2021-08-05] MEDS: methylPREDNISolone Sod Succ 40 MG/ML VIAL IVPUSH (02:28)
[2021-08-05] MEDS: diphenhydrAMINE HCL 50 MG/ML VIAL 25 MG IV ×2 (04:23→10:28)
[2021-08-05] MEDS: ondansetron HCL 4 MG/2 ML VIAL IVPUSH ×2 (04:23→10:28)
[2021-08-05] MEDS: HYDROmorphone HCl 1 MG/ML SYRINGE IVPUSH ×2 (04:24→10:28)
[2021-08-05] MEDS: Omeprazole 20 MG CAPSULE.DR PO (05:14)
[2021-08-05] MEDS: cefTRIAXone sodium 1 GM in 0.9 % Sodium Chloride 50 ML IV (05:15)
[2021-08-05 06:12] LABS: MANUAL DIFF FLAG NO
[2021-08-05 06:22] LABS: Basophils Percent Auto 0.1 % (0-2); Hematocrit 39.8 % (37.0-47.0); Imm Gran Abs Auto 0.08 X10*3/uL (0.00-0.03); Imm Gran Pct Auto 0.8 % (0.0-0.4); Lymphocytes Percent Auto 9.2 % (20-40); Mean Corpuscular HGB Conc 32.7 g/dl (31.0-35.0); Mean Corpuscular Hemoglobin 29.7 pg (27.0-33.0); Mean Corpuscular Volume 91.1 fL (80.0-98.0); Mean Platelet Volume 10.7 fL (9.4-12.3); Monocytes Absolute Auto 0.5 X10*3/uL (0.1-1.2); Monocytes Percent Auto 4.4 % (2-11); Neutrophils Absolute Auto 8.9 x10*3/uL (2.0-8.3); Neutrophils Percent Auto 85.5 % (45-73); Platelet Count 224 X10*3/uL (160-400); Red Blood Count 4.37 X10*6/uL (4.20-5.50); Red Cell Distribution Width 12.8 % (11.0-16.0); White Blood Count 10.5 X10*3/uL (4.8-10.8)
[2021-08-05 06:56] LABS: Anion Gap 15 (12-20); Blood Urea Nitrogen 20 mg/dL (9-16); Calcium 9.2 mg/dL (8.4-10.2); Carbon Dioxide 26 mmol/L (22-29); Chloride 104 mmol/L (96-108); Creatinine Clr Calc Pharmacy 91.8; Estimated Glomerular Filt Rate > 60; Glucose Random 112 mg/dL (60-115); Potassium 4.7 mmol/L (3.3-5.1); Sodium 138 mmol/L (135-145)
[2021-08-05 07:48] VITALS: BP 108/64; PULSE 53; RESP 18; TEMP 36.6; O2SAT 98
[2021-08-05] MEDS: Fluticasone/Vilanterol 200/25 BLST.W.DEV 1 PUFF INHALE (08:16)
[2021-08-05 08:17] VITALS: PULSE 72; RESP 18; O2SAT 98
[2021-08-05] MEDS: Apixaban 5 MG TABLET PO (09:20)
[2021-08-05] MEDS: levETIRAcetam Oral Soln 500 MG/5 ML 700 MG PO (09:20)
[2021-08-05] MEDS: 0.9 % Sodium Chloride Flush 3 ML SYRINGE IVFLUSH (09:20)
[2021-08-05] MEDS: Lidocaine 4 % Patch ADH..PATCH 1 PATCH TRANSDERMA (09:21)
--- NOTE | 2021-08-05 09:35 | MHC.CM.PN ---
EMR REVIEWED, THIS CM RECEIVED CALL FROM [facility] REQUESTING [facility] LABS AND REPORTS FLUSH ORDERS AND PO WILL NEED TO BE SIGNED BY HOSPITALIST, CM AWAITING PO FROM [facility] AND WILL HAVE HOSPITALIST SIGN BOTH TOGETHER, LABS HAVE BEEN FAXED VIA Friday. PER [facility] TPN WILL BE DELIVERED BY END OF DAY. CM MET W/PT WHO REPORTS SHE CAN FIND A RIDE HOME AND WILL PLAN ON MAKING ARRANGEMENTS FOR AFTER LUNCH. PER PT SHE SELF ADMINISTERS TPN IN THE EVENINGS FOR 12 HRS, REPORTING SHE STARTS AT APPROX 8PM. D/C PLAN[facility], PT TO ARRANGE TRANSPORT.
--- NOTE | 2021-08-05 10:23 | PM.DS ---
DS: Providers Provider Date of Service: 08/05/21 Date of admission: 07/31/21 08:55 Primary care physician: Amelie Banks NP Consults: 07/31/21 08:58 Consult to Gastroenterology Routine Consulting Provider: Bess Wallace Reason for consultation: colitis -- infectious vs secondary to crohn's flare 08/03/21 12:47 Consult to General Surgery Routine Consulting Provider: Ata Lornezo Reason for consultation: colitis Has provider been notified: No DS: Diagnosis Discharge Diagnosis (1) Abdominal pain: Status: Acute DS: Summary Hospital Course Hospital Course: History of presenting illness Chief Complaint: abdominal pain, nausea, vomiting and diarrhea This is a 40 year old F with a PMH Behcet's syndrome, Crohn's disease, gastroparesis, 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 The patient reports that over the last several days, she has had intermittent, crampy lower abdominal pain which became persistent the evening before arrival. She reports fevers (subjective) and chills. She reports that initially, she only had pain but now has had multiple bouts of diarrhea and vomiting. She reports being on TPN at home and can only tolerate clear liquids. In regards to her Crohn's disease, she reports that she is currently on prednisone 20mg (Tapered from 40mg in the about 1-2 weeks ago). She reports that she may be starting Humira in the coming weeks. In the ED, the patients CT scan showed diffuse colitis with possible inflmmation at the IT. She was noted to have luekocytosis (although her CRP was wnl). She required multiple doses of IV analgesics. She was given IVF, IV antibiotics and multiple rounds of IV anti-emetics with no improvement in her symptoms. She will now be admitted for further treatment. 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 Wallace who agreed with above treatment and recommended to gradually taper prednisone and to have outpatient follow-up by her primary licensed retail supervisor Dr. Velazquez, since patient is tolerating diet with no further bout of nausea vomiting and abdominal pain has improved she is being discharged home on prednisone and recommended close outpatient Gastroenterology and rheumatology follow-up. She is on chronic TPN use that has been continued. In regard to other chronic medical issues including Seizure d/o she a will continue Keppra, for PE DVT recommend to continue Eliquis, she had no acute exacerbation of Chronic Asthma recommend to continue home inhalers Time Spent with Patient Time attestation: Total time spent providing and/or coordinating discharge services: Discharge coordination time: Greater than 30 minutes Quality: Stroke Does the patient have a stroke diagnosis?: No Physical Exam Vital Signs: Vital Signs: Last Vital Signs Temp 97.8 F 08/05/21 07:48 Pulse 53 08/05/21 07:48 Resp 18 08/05/21 08:17 BP 108/64 08/05/21 07:48 Pulse Ox 98 08/05/21 07:48 BMI result Body Mass Index 26.2 Const: Other: General resting comfortably, no acute distress? Neck? supple no JVD. CVS? regular rate rhythm, Respiratory lungs clear to auscultation, no respiratory distress, no wheeze, no rhonchi. Gastrointestinal abdomen soft, nontender,, no guarding, no rigidity, no rebound, no distention? Extremities no edema. Neuro nonfocal Skin no rash musculoskeletal no deformity DS: Data Data Completed and Pending Labs on day of discharge: Laboratory Results - last 24 hr 08/05/21 08/05/21 05:55 05:55 WBC 10.5 RBC 4.37 Hgb 13.0 Hct 39.8 MCV 91.1 MCH 29.7 MCHC 32.7 RDW 12.8 Plt Count 224 MPV 10.7 Immature Gran % (Auto) 0.8 H Neut % (Auto) 85.5 H Lymph % (Auto) 9.2 L Kerr % (Auto) 4.4 Eos % (Auto) 0.0 Baso % (Auto) 0.1 Lymph # (Auto) 1.0 L Kerr # (Auto) 0.5 Eos # (Auto) 0.0 Baso # (Auto) 0.0 Abs Immat Gran (auto) 0.08 H Absolute Neuts (auto) 8.9 H Absolute Nucleated RBC 0.000 Nucleated RBC % (auto) 0.0 Sodium 138 Potassium 4.7 D Chloride 104 Carbon Dioxide 26 Anion Gap 15 BUN 20 H Creatinine 0.65 Estim Creat Clear Calc 91.8 Estimated GFR > 60 Random Glucose 112 Calcium 9.2 D Discharge Plan Discharge Patient Disposition: Home Health Service Discharge Diagnosis: Acute Crohn's colitis Chronic TPN use History of PE/DVT Referrals: [facility] [Other] - 1 Week (RESUMPTION OF TPN DELIVERY) [facility] [Outside] - 1 Week (RESUMPTION OF CARE) Amelie Banks NP [Primary Care Provider] - 1 Week Discharge Medications: Continued levetiracetam 100 mg/mL solution 7 ml PO BID 0RF albuterol sulfate 90 mcg/actuation Hfa Aerosol Inhaler 2 puff INHALATION Q4H PRN (Reason: Wheezing) 0RF Incruse Ellipta 62.5 mcg/actuation Blister With Device 1 inh INHALATION DAILY 0RF Breo Ellipta 200-25 mcg/dose Blister With Device 1 inh INHALATION Q24H 0RF diphenhydramine HCl 50 mg/mL solution 25 mg IV QID PRN (Reason: Nausea) 0RF ondansetron HCl (PF) 4 mg/2 mL solution 4 mg IV QID PRN (Reason: Nausea) 0RF acetaminophen 325 mg Tablet 650 mg PO Q4H PRN (Reason: Pain) 0RF prednisone 20 mg Tablet 20 mg PO DAILY Qty: 0 0RF Rx Instructions: take prednisone 20 mg (2 tablets daily) for 1 week then take prednisone 20 mg daily as previously prescribed tizanidine 4 mg tablet 4 mg PO BEDTIME 0RF promethazine 25 mg tablet 25 mg PO QID PRN (Reason: nausea) 0RF Eliquis 5 mg tablet 5 mg PO BID 0RF hydromorphone 4 mg tablet 4 mg PO TID PRN (Reason: pain) 30 Days Qty: 90 0RF Discharge Orders: Discharge Order (Routine); Ordered 08/05/21 Ordered By: Laureen Womack Diet: advance to usual diet Activity on Discharge: As tolerated Stand Alone Forms: Patient Portal Discharge page Care Plan Goals: Acute colitis take prednisone 40 mg daily for 1 week then resume home dose of prednisone 20 mg daily and follow-up with gastroenterology , continue TPN as before Resume all home medications Health Concerns: Better assess syndrome/Crohn's disease/gastroparesis/PE DVT continue close follow-up PCP Plan of Treatment: Outpatient follow-up and [facility] Gastroenterology and rheumatology as previously planned Assessment: Per discharge summary
--- NOTE | 2021-08-05 11:16 | MHC.CLN ---
F/U PATIENT DISCHARGING TO HOME TODAY. HAD BEEN RECEIVING TPN AND LIPIDS: D15AA5% AT 65ML/HR WITH 18ML OF 20% LIPIDS PROVIDES 1540 KCALS TOTAL (25KCALS/KG), 78G PROTEIN (1.28G/KG). TPN AND LIPIDS AT MAX GOAL RATE. FOLLOWED BY [facility] FOR HOME TPN.
== END 2021-08-05 13:17 | disposition home health service (06) | DRG 392 ==
LOC: HO.ED 05:33 → HO.EDOVER 09:00 → HO.S3 08-01 14:56
PROVIDERS: Physician Assistant Medical; Admitting Provider Family Medicine; Emergency Provider Emergency Medicine; PCP Registered Nurse; Visit Provider Hospitalist
DX: A09 Infectious gastroenteritis and colitis, unspecified (principal); M35.2 Behcet's disease; K50.90 Crohn's disease, unspecified, without complications; G40.909 Epilepsy, unspecified, not intractable, without status epilepticus; Z20.822 Contact with and (suspected) exposure to COVID-19; Z86.711 Personal history of pulmonary embolism; Z86.718 Personal history of other venous thrombosis and embolism; Z23 Encounter for immunization; Z88.0 Allergy status to penicillin; Z88.2 Allergy status to sulfonamides; Z79.01 Long term (current) use of anticoagulants; Z79.899 Other long term (current) drug therapy
CPT/HCPCS: 36415; 71045; 74177; 80048; 80076; 81003; 82040; 83605; 83690; 83735; 84100; 84478; 85025; 86140; 87040; 87635; 90471; 90686; 96361; 96365; 96375; 96376; 99285; 99291; J0610; J0696; J1170; J1200; J2060; J2405; J2920; J3475; Q9967

== ENCOUNTER 2021-08-11 08:31 | Outpatient (REF) | payer MEDICARE, MEDICAID, SELFPAY ==
--- NOTE | ~2021-08-11 | XR_ITS ---
EXAMINATION: XR CHEST CLINICAL INFORMATION: Chest pain COMPARISON: Chest 08/04/2021 TECHNIQUE: 2 views of the chest were obtained. FINDINGS: The lungs are well-expanded and clear. The heart size and pulmonary vascularity is normal. There is right IVC catheter with its tip adjacent to right T10-T11 disc level. There is mild blunting of left CP angle likely pleural thickening or tiny effusion. There is mild bilateral apical pleural thickening left greater than right. No gross bony abnormality. XR/XR chest 2V IMPRESSION: No acute process. Stable left CP angle pleural thickening, bilateral apical pleural thickening greater on the left and an IVC catheter.
== END 2021-08-11 08:32 | disposition home or self-care (01) ==
LOC: HO.HMGCX 08:31
PROVIDERS: Visit Provider Internal Medicine
DX: R07.9 Chest pain, unspecified (principal)
CPT/HCPCS: 71046

== ENCOUNTER → 2021-08-12 08:19 | Outpatient (BNVA) | payer MEDICARE, MEDICAID, SELFPAY | PROVIDERS: PCP Registered Nurse; Visit Provider Anesthesiology | DX: Z51.81 Encounter for therapeutic drug level monitoring (principal); F11.20 Opioid dependence, uncomplicated; M35.2 Behcet's disease; M54.2 Cervicalgia; M54.50 Low back pain, unspecified; G89.4 Chronic pain syndrome; K50.918 Crohn's disease, unspecified, with other complication | CPT/HCPCS: 99212 ==

== ENCOUNTER 2021-08-17 17:47 | Inpatient (IN) | payer MEDICARE, MEDICAID, SELFPAY ==
--- NOTE | ~2021-08-17 | XR_ITS ---
EXAMINATION: XR CHEST CLINICAL INFORMATION: Covid positive and hypoxia. COMPARISON: Chest radiograph dated from 08/11/2021. TECHNIQUE: AP view of the chest was obtained. FINDINGS: Stable appearance of the cardiomediastinal silhouette. There is increased interstitial thickening since 08/11/2021 with redemonstration of blunting of the left costophrenic angle and left subpleural apex. No pneumothorax. Stable positioning of a catheter projected to the right of the lower thoracic spine and a tubing projecting in the right upper quadrant. No acute osseous abnormalities. XR/XR chest 1V IMPRESSION: Increased interstitial markings since a few days ago concerning for progression of an atypical infectious process in the appropriate clinical setting.
[2021-08-17 17:50] VITALS: BP 139/97; PULSE 83; RESP 20; TEMP 37; O2SAT 95; BMI 25.9
[2021-08-17 18:35] VITALS: PULSE 73; O2SAT 94
--- NOTE | 2021-08-17 18:40 | ECG_ITS ---
Test Reason : SOB Blood Pressure : / mmHG Vent. Rate : 059 BPM Atrial Rate : 059 BPM P-R Int : 128 ms QRS Dur : 080 ms QT Int : 464 ms P-R-T Axes : 053 023 012 degrees QTc Int : 459 ms Sinus bradycardia Nonspecific ST and T wave abnormality Abnormal ECG When compared with ECG of 21-JAN-2021 12:37, No significant change was found Referred By: Denise Ocampo Electronically Signed By:GABRIELE LEDEZMA
--- NOTE | 2021-08-17 18:40 | ED.URI ---
HPI - URI/Sore Throat General Chief Complaint: Upper Respiratory Symptoms Stated Complaint: +covid sob Time Seen by Provider: 08/17/21 18:31 Source: patient Mode of arrival: ambulatory Limitations: no limitations History of Present Illness HPI Narrative: 41 years old female recently diagnosed with COVID virus infection now came in for evaluation of shortness of breath. Last week patient felt flu-like symptoms fever, runny nose, sneezing, coughing, patient was tested positive for COVID at outside walking clinic, patient over the past 3 days been having shortness of breath and feeling generalized weakness with nonproductive coughing. patient was history of behcet's syndrome, Crohn's disease, gastroparesis, PE/ DVT patient is on Eliquis, common variable immunodeficiency, spontaneous pneumothorax. Patient found to have low O2 sat at 89% on room air In the emergency department. Related Data Home Medications Medication Instructions Recorded Confirmed promethazine 25 mg tablet 25 mg PO QID PRN 04/02/20 07/31/21 tizanidine 4 mg tablet 4 mg PO BEDTIME 04/02/20 07/31/21 apixaban 5 mg tablet (Eliquis) 5 mg PO BID 09/22/20 08/14/21 albuterol sulfate 90 mcg/actuation 2 puff INHALATION Q4H PRN 12/12/20 08/14/21 aerosol inhaler fluticasone furoate 200 1 inh INHALATION Q24H 12/12/20 08/14/21 mcg-vilanterol 25 mcg/dose inhalation powder (Breo Ellipta) levetiracetam 100 mg/mL oral 7 ml PO BID 12/12/20 08/14/21 solution umeclidinium 62.5 mcg/actuation 1 inh INHALATION DAILY 12/12/20 08/14/21 blister powder for inhalation (Incruse Ellipta) acetaminophen 325 mg tablet 650 mg PO Q4H PRN 03/12/21 08/14/21 diphenhydramine HCl 50 mg/mL 25 mg IV QID PRN 03/12/21 08/14/21 injection solution ondansetron HCl (PF) 4 mg/2 mL 4 mg IV QID PRN 03/12/21 08/14/21 injection solution Previous Rx's Medication Instructions Recorded prednisone 20 mg tablet 20 mg PO DAILY #0 tab 08/05/21 hydromorphone 4 mg tablet 4 mg PO TID PRN 30 Days #90 tab 08/12/21 Allergies Allergy/AdvReac Type Severity Reaction Status Date / Time ciprofloxacin [Cipro] Allergy Unknown unknown Verified 08/12/21 08:31 levofloxacin [Levaquin] Allergy Unknown unknown Verified 08/12/21 08:31 metoclopramide [Reglan] Allergy Unknown unknown Verified 08/12/21 08:31 ondansetron [Zofran] Allergy Unknown unknown Verified 08/12/21 08:31 penicillin V Allergy Unknown unknown Verified 08/12/21 08:31 prochlorperazine Allergy Unknown unknown Verified 08/14/21 13:10 [From Compazine] Sulfa (Sulfonamide Allergy Unknown unknown Verified 08/12/21 08:31 Antibiotics) thalidomide [From Thalomid] Allergy Unknown unknown Verified 08/14/21 13:10 Review of Systems Review of Systems: All other systems are reviewed and are negative Constitutional: Reports as per HPI and Reports no additional constitutional complaints Eyes: Reports as per HPI and Reports no additional eye complaints Reports system reviewed and no additional complaints, except as documented Cardiovascular: Reports as per HPI and Reports no additional cardiovascular complaints Respiratory: Reports as per HPI and Reports no additional respiratory complaints Gastrointestinal: Reports as per HPI and Reports no additional gastrointestinal complaints Genitourinary: Reports no additional female genitourinary complaints Musculoskeletal: Reports no additional musculoskeletal complaints Skin/Breast: Reports system reviewed and no additional complaints, except as docu Psychiatric: Reports no additional psychiatric complaints Endocrine: Reports no additional endocrine complaints Hematologic/Lymphatic: Reports no additional hematologic/lymphatic complaints Allergic/Immunologic: Reports no additional allergic/immunologic complaints Reports system reviewed and no additional complaints, except as documented and Reports Abnormal speech present [facility] Past Medical History Medical History Abdominal pain Abdominal pain, chronic, generalized Absence seizure disorder Asthma Behcet's disease Cervicalgia Chronic pain syndrome Common variable immunodeficiency Crohn's disease DVT (deep venous thrombosis) Gastroparesis Low back pain Pyloric stenosis Spondylolisthesis, lumbar region Spondylosis of lumbar region without myelopathy or radiculopathy Spontaneous pneumothorax Surgical History History of hernia surgery Family History Family History Father Hairy cell leukemia Social History Social History Household Members: Other Household Members Other:: son Housing: Condominium Do you presently have visiting nurse or other home services: Yes Alcohol intake: never Patient Tobacco Use Status: Never used Tobacco Advance Directives: Yes Advance Directives on File: Yes Advance Directives Date on File: 03/12/21 service: No Current occupational status: unemployed Physical Exam Vital Signs: Vital Signs: Last Vital Signs Temp 98.6 F 08/17/21 17:50 Pulse 73 08/17/21 18:35 Resp 20 08/17/21 17:50 BP 139/97 H 08/17/21 17:50 Pulse Ox 94 08/17/21 18:35 BMI result Body Mass Index 25.9 vital signs have been reviewed as appeared to be correct. Blood pressure normal. Heart rate normal. Respiration rate normal. Temperature normal. Oxygen saturation normal. Appearance: Alert. Oriented X3. No acute distress. Head: Normal external exam. Normocephalic. Atraumatic. No Henson signs noted. No raccoon eyes noted Eyes: PERRLA. EOMI. Conjunctiva and sclera normal. Eyelids normal. ENT: TM's Normal. Pharynx normal. Uvula midline. Moist mucous membranes. No trismus noted. No drooling noted. No muffled voice noted. Neck: Normal inspection. Neck supple. FROM. No adenopathy. Thyroid Normal. No meningeal signs. No neck mass noted. CVS: Normal heart rate and rhythm. Heart sound normal. No murmurs noted. Pulses normal throughout. Respiratory: No respiratory distress. Painless inspiration. Breath sounds normal. No wheezes/rales/rhonchi noted. Chest nontender. No accessory muscle usage noted or decreased air movement noted. Abdomen: Soft and nontender. Bowel sounds normal in all 4 quadrants. No distention noted. No organomegaly noted. No visible injury noted. Back: No CVA tenderness. Full range of motion noted. Skin: Skin warm and dry. Normal skin color. Normal skin turgor. No rashes/lesions/lacerations noted. Extremities: No lower extremity edema. Extremities exhibit normal range of motion. Extremities nontender. Neuro: Oriented X 3. Cranial nerve exam: II-XII are grossly intact No motor deficit. No sensory deficit. Reflexes normal. Course Course Course Narrative: assessment and plan. 41-year-old female immunocompromised history of asthma with history of COVID infection, patient noted to be hypoxic in the emergency department with worsening of chest x-ray from 2 days ago. Patient will be admitted for high-flow oxygen p.r.n./steroid. MDM - URI/Sore Throat Medical Records Attestation: I reviewed the patient's medical records. Lab Data Attestation: I reviewed the patient's lab results. Result diagrams: 08/17/21 19:10 08/17/21 19:10 Labs: Lab Results 08/17/21 08/17/21 08/17/21 Range/Units 19:10 19:10 19:10 WBC 3.6 L (4.8-10.8) X10*3/uL RBC 3.81 L (4.20-5.50) X10*6/uL Hgb 11.4 L (12.0-16.0) g/dl Hct 34.6 L (37.0-47.0) % MCV 90.8 (80.0-98.0) fL MCH 29.9 (27.0-33.0) pg MCHC 32.9 (31.0-35.0) g/dl RDW 13.2 (11.0-16.0) % Plt Count 186 (160-400) X10*3/uL MPV 10.6 (9.4-12.3) fL Immature Gran % (Auto) 0.0 (0.0-0.4) % Neut % (Auto) 61.1 (45-73) % Lymph % (Auto) 25.6 (20-40) % [place] % (Auto) 11.3 H (2-11) % Eos % (Auto) 1.7 (0-4) % Baso % (Auto) 0.3 (0-2) % Lymph # (Auto) 0.9 L (1.2-4.9) X10*3/uL [place] # (Auto) 0.4 (0.1-1.2) X10*3/uL Eos # (Auto) 0.1 (0.0-0.4) X10*3/uL Baso # (Auto) 0.0 (0.0-0.2) X10*3/uL Abs Immat Gran (auto) 0.00 (0.00-0.03) X10*3/uL Absolute Neuts (auto) 2.2 (2.0-8.3) x10*3/uL Absolute Nucleated RBC 0.000 (0.0-0.012) X10*3/uL Nucleated RBC % (auto) 0.0 (0.0-0.2) /100WBC Sodium 138 (135-145) mmol/L Potassium 4.0 (3.3-5.1) mmol/L Chloride 105 (96-108) mmol/L Carbon Dioxide 23 (22-29) mmol/L Anion Gap 14 (12-20) BUN 19 H (9-16) mg/dL Creatinine 0.83 (0.5-1.4) mg/dL Estim Creat Clear Calc 70.9 Estimated GFR > 60 Random Glucose 109 (60-115) mg/dL Calcium 8.5 D (8.4-10.2) mg/dL Total Bilirubin 0.3 (0.0-1.0) mg/dL Direct Bilirubin < 0.2 (0.0-0.5) mg/dL AST 21 (5-31) U/L ALT 24 (0-31) U/L Alkaline Phosphatase 48 D (39-117) U/L B-Natriuretic Peptide 53 (<100) pg/mL Total Protein 6.6 (6.5-8.0) g/dL Albumin 4.1 (3.5-5.0) g/dL Lipase 17 (8-78) U/L COVID-19 ([facility]) (Negative) COVID-19 Clin Com 08/17/21 Range/Units 19:10 WBC (4.8-10.8) X10*3/uL RBC (4.20-5.50) X10*6/uL Hgb (12.0-16.0) g/dl Hct (37.0-47.0) % MCV (80.0-98.0) fL MCH (27.0-33.0) pg MCHC (31.0-35.0) g/dl RDW (11.0-16.0) % Plt Count (160-400) X10*3/uL MPV (9.4-12.3) fL Immature Gran % (Auto) (0.0-0.4) % Neut % (Auto) (45-73) % Lymph % (Auto) (20-40) % [place] % (Auto) (2-11) % Eos % (Auto) (0-4) % Baso % (Auto) (0-2) % Lymph # (Auto) (1.2-4.9) X10*3/uL [place] # (Auto) (0.1-1.2) X10*3/uL Eos # (Auto) (0.0-0.4) X10*3/uL Baso # (Auto) (0.0-0.2) X10*3/uL Abs Immat Gran (auto) (0.00-0.03) X10*3/uL Absolute Neuts (auto) (2.0-8.3) x10*3/uL Absolute Nucleated RBC (0.0-0.012) X10*3/uL Nucleated RBC % (auto) (0.0-0.2) /100WBC Sodium (135-145) mmol/L Potassium (3.3-5.1) mmol/L Chloride (96-108) mmol/L Carbon Dioxide (22-29) mmol/L Anion Gap (12-20) BUN (9-16) mg/dL Creatinine (0.5-1.4) mg/dL Estim Creat Clear Calc Estimated GFR Random Glucose (60-115) mg/dL Calcium (8.4-10.2) mg/dL Total Bilirubin (0.0-1.0) mg/dL Direct Bilirubin (0.0-0.5) mg/dL AST (5-31) U/L ALT (0-31) U/L Alkaline Phosphatase (39-117) U/L B-Natriuretic Peptide (<100) pg/mL Total Protein (6.5-8.0) g/dL Albumin (3.5-5.0) g/dL Lipase (8-78) U/L COVID-19 ([facility]) Positive A (Negative) COVID-19 Clin Com See Note Imaging Data Chest x-ray: Attestation: I personally reviewed and interpreted this imaging study as follows: Radiologist's impression: Increased interstitial markings since a few days ago concerning for progression of an atypical infectious process in the appropriate clinical setting. ? Discharge Plan Discharge Clinical Impression: Pneumonia due to COVID-19 virus Patient Disposition: Admitted As Inpatient Prescriptions: No Action levetiracetam 100 mg/mL solution 7 ml PO BID 0RF albuterol sulfate 90 mcg/actuation Hfa Aerosol Inhaler 2 puff INHALATION Q4H PRN (Reason: Wheezing) 0RF Incruse Ellipta 62.5 mcg/actuation Blister With Device 1 inh INHALATION DAILY 0RF Breo Ellipta 200-25 mcg/dose Blister With Device 1 inh INHALATION Q24H 0RF diphenhydramine HCl 50 mg/mL solution 25 mg IV QID PRN (Reason: Nausea) 0RF ondansetron HCl (PF) 4 mg/2 mL solution 4 mg IV QID PRN (Reason: Nausea) 0RF acetaminophen 325 mg Tablet 650 mg PO Q4H PRN (Reason: Pain) 0RF prednisone 20 mg Tablet 20 mg PO DAILY Qty: 0 0RF Rx Instructions: take prednisone 20 mg (2 tablets daily) for 1 week then take prednisone 20 mg daily as previously prescribed tizanidine 4 mg tablet 4 mg PO BEDTIME 0RF promethazine 25 mg tablet 25 mg PO QID PRN (Reason: nausea) 0RF Eliquis 5 mg tablet 5 mg PO BID 0RF hydromorphone 4 mg tablet 4 mg PO TID PRN (Reason: pain) 30 Days Qty: 90 0RF
[2021-08-17] MEDS: 0.9 % Sodium Chloride 1,000 ML 999 ML IV (19:14)
[2021-08-17 19:19] LABS: MANUAL DIFF FLAG NO
[2021-08-17 19:22] LABS: Basophils Percent Auto 0.3 % (0-2); Eosinophils Absolute Auto 0.1 X10*3/uL (0.0-0.4); Eosinophils Percent Auto 1.7 % (0-4); Hematocrit 34.6 % (37.0-47.0); Hemoglobin 11.4 g/dl (12.0-16.0); Lymphocytes Absolute Auto 0.9 X10*3/uL (1.2-4.9); Lymphocytes Percent Auto 25.6 % (20-40); Mean Corpuscular HGB Conc 32.9 g/dl (31.0-35.0); Mean Corpuscular Hemoglobin 29.9 pg (27.0-33.0); Mean Corpuscular Volume 90.8 fL (80.0-98.0); Mean Platelet Volume 10.6 fL (9.4-12.3); Monocytes Absolute Auto 0.4 X10*3/uL (0.1-1.2); Monocytes Percent Auto 11.3 % (2-11); Neutrophils Absolute Auto 2.2 x10*3/uL (2.0-8.3); Neutrophils Percent Auto 61.1 % (45-73); Platelet Count 186 X10*3/uL (160-400); Red Blood Count 3.81 X10*6/uL (4.20-5.50); Red Cell Distribution Width 13.2 % (11.0-16.0); White Blood Count 3.6 X10*3/uL (4.8-10.8)
[2021-08-17 19:29] LABS: COVID-19 Test Positive (Negative)
[2021-08-17 19:40] LABS: Alanine Aminotransferase 24 U/L (0-31); Albumin Level 4.1 g/dL (3.5-5.0); Alkaline Phosphatase 48 U/L (39-117); Anion Gap 14 (12-20); Aspartate Amino Transferase 21 U/L (5-31); Bilirubin Direct < 0.2 mg/dL (0.0-0.5); Bilirubin Total 0.3 mg/dL (0.0-1.0); Blood Urea Nitrogen 19 mg/dL (9-16); Calcium 8.5 mg/dL (8.4-10.2); Carbon Dioxide 23 mmol/L (22-29); Chloride 105 mmol/L (96-108); Creatinine Clr Calc Pharmacy 70.9; Estimated Glomerular Filt Rate > 60; Glucose Random 109 mg/dL (60-115); Lipase 17 U/L (8-78); Sodium 138 mmol/L (135-145); Total Protein 6.6 g/dL (6.5-8.0)
[2021-08-17 19:44] LABS: B Type Natriuretic Peptide 53 pg/mL (<100)
--- NOTE | 2021-08-17 21:06 | P.HPHOSP_ITS ---
History of Present Illness Date of Service: 08/17/21 Chief Complaint: shortness of breath 41-year-old female with a past medical history of Behcet syndrome, Crohn's disease, gastroparesis-on chronic TPN history of DVT/PE on Eliquis, chronic pain syndrome, common variable immunodeficiency, spondylolisthesis, chronic low back pain, history of spontaneous pneumothorax presented to the hospital today with a chief complaint of shortness of breath. Patient reported that for the past few days she has been having upper lateral back pain, worsens with deep inspiration; went to urgent care on last Tuesday and noted to have COVID-19 positive. Patient mentioned that she was also told that she had mild pleural effusions. Complains of cough. Denies any sputum production. Mention she has been having shortness of breath which has been gradually worsening over the past couple days. Denies any sick contacts. But after she got tested positive mentions her son was positive yesterday for COVID-19. Denies any chest pain or palpitations. Denies any urinary symptoms. Patient reports that she has gastroparesis and has been having decreased oral intake and persistent nausea. Mentions that she takes Zofran with Benadryl at home. Also reports he has been on TPN. Review of all other systems is negative except mentioned above ER course: Per ER team patient noted to have coarse breath sounds; patient was saturating 89% on room air; labs essentially benign; chest x-ray showed increased interstitial markings compared to chest x-ray a few days ago concerning for atypical infectious process. Admitted to the hospital for further management [facility] Medical History Abdominal pain Abdominal pain, chronic, generalized Absence seizure disorder Asthma Behcet's disease Cervicalgia Chronic pain syndrome Common variable immunodeficiency Crohn's disease DVT (deep venous thrombosis) Gastroparesis Low back pain Pyloric stenosis Spondylolisthesis, lumbar region Spondylosis of lumbar region without myelopathy or radiculopathy Spontaneous pneumothorax Family History Father Hairy cell leukemia Surgical History History of hernia surgery Social History Household Members: Other Household Members Other:: son Housing: Condominium Do you presently have visiting nurse or other home services: Yes Alcohol intake: never Patient Tobacco Use Status: Never used Tobacco Advance Directives: Yes Advance Directives on File: Yes Advance Directives Date on File: 03/12/21 service: No Current occupational status: unemployed Meds Allergies Allergy/AdvReac Type Severity Reaction Status Date / Time ciprofloxacin [Cipro] Allergy Unknown unknown Verified 08/12/21 08:31 levofloxacin [Levaquin] Allergy Unknown unknown Verified 08/12/21 08:31 metoclopramide [Reglan] Allergy Unknown unknown Verified 08/12/21 08:31 ondansetron [Zofran] Allergy Unknown unknown Verified 08/12/21 08:31 penicillin V Allergy Unknown unknown Verified 08/12/21 08:31 prochlorperazine Allergy Unknown unknown Verified 08/14/21 13:10 [From Compazine] Sulfa (Sulfonamide Allergy Unknown unknown Verified 08/12/21 08:31 Antibiotics) thalidomide [From Thalomid] Allergy Unknown unknown Verified 08/14/21 13:10 Active Medications: Current Medications Acetaminophen (Acetaminophen 325 Mg Tablet) 650 mg PO Q6H PRN PRN Reason: Pain, Mild (Pain Scale 1-3) Azithromycin (Azithromycin 500 Mg Tablet) 500 mg PO Q24H ANNA Dexamethasone (Dexamethasone 6 Mg Tablet) 6 mg PO DAILY ANNA Ceftriaxone Sodium 1 gm/ (Sodium Chloride) 50 mls @ 100 mls/hr IV Q24H ANNA Melatonin (Melatonin 3 Mg Tablet) 6 mg PO BEDTIME PRN PRN Reason: Insomnia Morphine Sulfate (Morphine Sulfate 4 Mg/Ml Cartridge) 1 mg IVPUSH Q4H PRN; Protocol PRN Reason: Pain, SOB Pharmacy Consult (Consult Rx Perform Med Rec) 1 each MISCELLANE ONCE STA Stop: 08/17/21 21:01 Senna (Sennosides 8.6 Mg Tablet) 17.2 mg PO BEDTIME PRN PRN Reason: Constipation Sodium Chloride (0.9 % Sodium Chloride Flush 3 Ml Syringe) 3 ml IVFLUSH QSHIFT ANNA Home Medications Medication Instructions Recorded Confirmed Last Taken Type promethazine 25 mg tablet 25 mg PO QID PRN 04/02/20 08/17/21 07/30/21 History tizanidine 4 mg tablet 4 mg PO BEDTIME 04/02/20 08/17/21 07/30/21 History apixaban 5 mg tablet (Eliquis) 5 mg PO BID 09/22/20 08/17/21 07/30/21 History albuterol sulfate 90 mcg/actuation 2 puff INHALATION Q4H PRN 12/12/20 08/17/21 07/30/21 History aerosol inhaler fluticasone furoate 200 1 inh INHALATION Q24H 12/12/20 08/17/21 07/30/21 History mcg-vilanterol 25 mcg/dose inhalation powder (Breo Ellipta) levetiracetam 100 mg/mL oral 7 ml PO BID 12/12/20 08/17/21 07/30/21 History solution umeclidinium 62.5 mcg/actuation 1 inh INHALATION DAILY 12/12/20 08/17/21 07/30/21 History blister powder for inhalation (Incruse Ellipta) acetaminophen 325 mg tablet 650 mg PO Q4H PRN 03/12/21 08/14/21 07/30/21 History diphenhydramine HCl 50 mg/mL 25 mg IV QID PRN 03/12/21 08/17/21 07/30/21 History injection solution ondansetron HCl (PF) 4 mg/2 mL 4 mg IV QID PRN 03/12/21 08/17/21 07/30/21 History injection solution prednisone 20 mg tablet 30 mg PO DAILY 08/17/21 08/17/21 Unknown History Physical Exam Vital Signs and Narrative: Vital Signs: Last Vital Signs Temp 98.6 F 08/17/21 17:50 Pulse 73 08/17/21 18:35 Resp 20 08/17/21 17:50 BP 139/97 H 08/17/21 17:50 Pulse Ox 94 08/17/21 18:35 BMI result Body Mass Index 25.9 Gen: Appears be in no acute distress HEENT: NCAT, Moist mucosa. Pulmonary: coarse breath sounds CVS: Normal S1-S2 Abdomen: BS+, Soft, Nontender Extremities: Warm well perfused Neuro: Alert and awake. Results Labs CBC and Chem 7: 08/17/21 19:10 08/17/21 19:10 Labs: Laboratory Results - last 24 hr 08/17/21 08/17/21 08/17/21 19:10 19:10 19:10 MCV 90.8 MCH 29.9 MCHC 32.9 RDW 13.2 Plt Count 186 MPV 10.6 Immature Gran % (Auto) 0.0 Neut % (Auto) 61.1 Lymph % (Auto) 25.6 [place] % (Auto) 11.3 H Eos % (Auto) 1.7 Baso % (Auto) 0.3 Lymph # (Auto) 0.9 L [place] # (Auto) 0.4 Eos # (Auto) 0.1 Baso # (Auto) 0.0 Abs Immat Gran (auto) 0.00 Absolute Neuts (auto) 2.2 Absolute Nucleated RBC 0.000 Nucleated RBC % (auto) 0.0 Anion Gap 14 Estim Creat Clear Calc 70.9 Estimated GFR > 60 Random Glucose 109 Calcium 8.5 D Total Bilirubin 0.3 Direct Bilirubin < 0.2 AST 21 ALT 24 Alkaline Phosphatase 48 D B-Natriuretic Peptide 53 Total Protein 6.6 Albumin 4.1 Lipase 17 COVID-19 ([facility]) COVID-19 Clin Com 08/17/21 19:10 MCV MCH MCHC RDW Plt Count MPV Immature Gran % (Auto) Neut % (Auto) Lymph % (Auto) [place] % (Auto) Eos % (Auto) Baso % (Auto) Lymph # (Auto) [place] # (Auto) Eos # (Auto) Baso # (Auto) Abs Immat Gran (auto) Absolute Neuts (auto) Absolute Nucleated RBC Nucleated RBC % (auto) Anion Gap Estim Creat Clear Calc Estimated GFR Random Glucose Calcium Total Bilirubin Direct Bilirubin AST ALT Alkaline Phosphatase B-Natriuretic Peptide Total Protein Albumin Lipase COVID-19 ([facility]) Positive A COVID-19 Clin Com See Note Imaging Radiologist's Impressions: Impressions Chest X-Ray 08/17/21 18:49 IMPRESSION: Increased interstitial markings since a few days ago concerning for progression of an atypical infectious process in the appropriate clinical setting. Assessment and Plan (1) Pneumonia due to COVID-19 virus: Status: Acute Plan 41-year-old female with a past medical history of Behcet syndrome, Crohn's disease, gastroparesis-on chronic TPN history of DVT/PE on Eliquis, chronic pain syndrome, common variable immunodeficiency, spondylolisthesis, chronic low back pain, history of spontaneous pneumothorax presented to the hospital today with a chief complaint of shortness of breath. Patient was recently tested positive for COVID-19. Repeat chest x-ray showed worsening interstitial markings. Admitted for COVID-19 pneumonia. COVID-19 pneumonia: Patient was saturating 89% on RA. Placed on supplemental oxygen. Will give the patient on ceftriaxone azithromycin-(patient has received ceftriaxone in the past and tolerated very well, confirmed with the pharmacy) Decadron 6 mg daily Id consult for further recommendations History of DVT/PE: Patient on Eliquis. History of chronic back pain: Morphine p.r.n. History of gastroparesis: Patient on TPN. Reports she has decreased oral intake. Zofran p.r.n.(reports she tolerates Zofran with Benadryl.). Nutrition consult History of seizures: Continue home Keppra. Seizure precautions. History of colitis: Patient had recent admission to the hospital for acute colitis (infectious versus Crohn's flare, was on steroids/ceftriaxone) discharged on 08/04/21 on p.o. prednisone. Will will hold prednisone for now as patient being started on Decadron. Patient supposed to follow-up with Dr. Benitez /rheumatology to start Humira as outpatient. DVT prophylaxis: Patient on Eliquis Code status: Full code Quality Stroke Does the patient have a stroke diagnosis?: No VTE Prior VTE?: No VTE Risk Level:: Medical - moderate - high VTE Device Contraindication: Treatment Not Indicated VTE Drug Contraindication: N/A - Med Ordered
[2021-08-17 21:49] VITALS: BP 101/83; PULSE 66; RESP 16; TEMP 36.5; O2SAT 98
[2021-08-17 22:00] VITALS: O2SAT 96
[2021-08-17] MEDS: Azithromycin 500 MG TABLET PO (22:16)
[2021-08-17] MEDS: Acetaminophen 325 MG TABLET 650 MG PO (22:16)
[2021-08-17] MEDS: cefTRIAXone sodium 1 GM in 0.9 % Sodium Chloride 50 ML IV (22:17)
[2021-08-17 22:33] VITALS: BP 115/67; PULSE 70; RESP 16; O2SAT 97
[2021-08-18] VITALS (15 sets, daily range): BP systolic 104–148; BP diastolic 62–100; PULSE 64–83; RESP 12–19; TEMP 36.4–37.1; O2SAT 96–100; BMI 25.9
[2021-08-18] MEDS: Morphine Sulfate 4 MG/ML CARTRIDGE 1 MG IVPUSH ×4 (00:34→20:04)
[2021-08-18 00:38] LABS: Appearance Urine CLEAR; Color Urine YELLOW; Glucose Urine UA NEG (NEG); Leukocyte Esterase Urine NEG (NEG); Nitrite Urine NEG (NEG); PH 5.5 (5.0-8.0); Specific Gravity - Urine >= 1.030 (1.005-1.025); Urine Blood NEG (NEG); Urine Ketones 5 MG/DL (NEG); Urine Protein NEG (NEG-TRACE)
--- NOTE | 2021-08-18 01:02 | PC.NURSE ---
REPORT GIVEN AND CARE TRANSFERRED TO MICHELLE QUEZADA.
--- NOTE | 2021-08-18 03:45 | PC.NURSE ---
Patient kept asking this customs entry writer for IV Zofran and IV Bendadryl. Hospitalist notified and he stated he could not prescribed anti emetics because of patient's allergies. This was explained to the patient. She stated that she takes IV Zofran and IV Benadryl. Patient called up front and stated that she wanted to leave. Hospitalist was notified that patient wanted to leave. Hospitalist on his way down to speak with patient.
[2021-08-18] MEDS: ondansetron HCL 4 MG/2 ML VIAL IVPUSH ×3 (04:13→20:04)
[2021-08-18] MEDS: diphenhydrAMINE HCL 50 MG/ML VIAL 25 MG IVPUSH ×3 (04:13→20:07)
--- NOTE | 2021-08-18 04:18 | PC.NURSE ---
Patient out of breath when this resume writer walked into the room. Unable to finish full sentences. Patient's initial oxygen saturation was 88 initially but dropped down to 77. Respiratory called to assess patient. Patient placed on non rebreather at 15 l but Oxygen saturation and O2 sats up to 100 percent.
[2021-08-18] MEDS: 0.9 % Sodium Chloride 500 ML 20 ML IVCONT (05:12)
--- NOTE | 2021-08-18 05:12 | PC.NURSE ---
Patient concerned about her port clotting off due to the fact that she has a clotting disorder. Patient has gone through a number of ports due to them clotting off so she was very anxious that the port was going to clot off. Hospitalist aware.
--- NOTE | 2021-08-18 05:22 | PC.NURSE ---
Overnight pharmacy called to find out what the patient's actual allergic reaction to Zofran is if she doesn't get benadryl. Patient states that she gets itchy and hives. Pharmacist wanted the medication d/c'd. I told him that he would have to speak to the hospitalist about d/c ing medication. Pharmacist hung up the phone on me.
[2021-08-18 07:26] LABS: MANUAL DIFF FLAG NO
[2021-08-18 07:31] LABS: Basophils Percent Auto 0.7 % (0-2); Eosinophils Absolute Auto 0.1 X10*3/uL (0.0-0.4); Eosinophils Percent Auto 2.4 % (0-4); Imm Gran Abs Auto 0.01 X10*3/uL (0.00-0.03); Imm Gran Pct Auto 0.3 % (0.0-0.4); Lymphocytes Absolute Auto 0.9 X10*3/uL (1.2-4.9); Lymphocytes Percent Auto 32.6 % (20-40); Mean Corpuscular HGB Conc 33.3 g/dl (31.0-35.0); Mean Corpuscular Hemoglobin 30.2 pg (27.0-33.0); Mean Corpuscular Volume 90.7 fL (80.0-98.0); Mean Platelet Volume 10.6 fL (9.4-12.3); Monocytes Absolute Auto 0.4 X10*3/uL (0.1-1.2); Monocytes Percent Auto 12.8 % (2-11); Neutrophils Absolute Auto 1.5 x10*3/uL (2.0-8.3); Neutrophils Percent Auto 51.2 % (45-73); Platelet Count 158 X10*3/uL (160-400); Red Blood Count 3.97 X10*6/uL (4.20-5.50); Red Cell Distribution Width 13.2 % (11.0-16.0); White Blood Count 2.9 X10*3/uL (4.8-10.8)
[2021-08-18 07:42] LABS: Anion Gap 15 (12-20); Blood Urea Nitrogen 14 mg/dL (9-16); Calcium 8.3 mg/dL (8.4-10.2); Carbon Dioxide 19 mmol/L (22-29); Chloride 109 mmol/L (96-108); Creatinine Clr Calc Pharmacy 82.9; Estimated Glomerular Filt Rate > 60; Glucose Random 78 mg/dL (60-115); Potassium 3.9 mmol/L (3.3-5.1); Sodium 139 mmol/L (135-145)
--- NOTE | 2021-08-18 08:30 | PC.NURSE ---
pt has a port-a-cath to her r flank which is accessed.
[2021-08-18 09:20] LABS: C Reactive Protein 2.08 mg/dL (< or = 0.50)
[2021-08-18] MEDS: 0.9 % Sodium Chloride Flush 3 ML SYRINGE IVFLUSH (09:41)
[2021-08-18 09:56] LABS: Procalcitonin 0.02 ng/mL
[2021-08-18] MEDS: Acetaminophen 325 MG TABLET 650 MG PO (11:24)
[2021-08-18] MEDS: Apixaban 5 MG TABLET PO ×2 (11:25→22:32)
[2021-08-18] MEDS: dexAMETHasone 6 MG TABLET PO (11:25)
--- NOTE | 2021-08-18 11:53 | P.PNIM_ITS ---
Subjective Subjective Date of Service: 08/18/21 Interval History: Coughing Dyspnea improved, on 2L O2 via NC No chest pain No fever No nausea or vomiting Physical Exam Vital Signs: Vital Signs: Last Vital Signs Temp 98.8 F 08/18/21 10:46 Pulse 78 08/18/21 11:25 Resp 12 08/18/21 11:25 BP 123/100 H 08/18/21 11:25 Pulse Ox 100 08/18/21 11:25 BMI result Body Mass Index 25.9 Gen: in no acute distress HEENT: sclera anicteric, moist mucus membranes Neck: supple Lungs: clear to auscultation bilaterally Heart: regular rate and rhythm, no murmurs Abd: soft, non-tender, non-distended Ext: no edema Skin: warm/well-perfused Neuro: alert and oriented x3, no focal findings Psych: appropriate affect Objective Data Active Medications Acetaminophen (Acetaminophen 325 Mg Tablet) 650 mg PO Q6H PRN PRN Reason: Pain, Mild (Pain Scale 1-3) Last Admin: 08/18/21 11:24 Dose: 650 mg Documented by: NIGEL Albuterol Sulfate (Albuterol Sulfate 90 Mcg 8 Gm Inhaler) 2 puff INHALE Q4H PRN PRN Reason: Wheezing Apixaban (Apixaban 5 Mg Tablet) 5 mg PO BID [facility] Last Admin: 08/18/21 11:25 Dose: 5 mg Documented by: NIGEL Azithromycin (Azithromycin 500 Mg Tablet) 500 mg PO Q24H [facility] Last Admin: 08/17/21 22:16 Dose: 500 mg Documented by: ROX Dexamethasone (Dexamethasone 6 Mg Tablet) 6 mg PO DAILY [facility] Last Admin: 08/18/21 11:25 Dose: 6 mg Documented by: NIGEL Diphenhydramine HCl (Diphenhydramine Hcl 50 Mg/Ml Vial) 25 mg IVPUSH Q6H PRN PRN Reason: Itching Last Admin: 08/18/21 11:35 Dose: 25 mg Documented by: NIGEL Fluticasone/Vilanterol (Fluticasone/Vilanterol 200/25 Blst.W.Dev) 1 puff INHALE Q24H [facility] Last Admin: 08/18/21 08:08 Dose: Not Given Documented by: KARIE Non-Admin Reason: Med Not Available Ceftriaxone Sodium 1 gm/ (Sodium Chloride) 50 mls @ 100 mls/hr IV Q24H [facility] Last Infusion: 08/17/21 23:00 Dose: 0 mls/hr Documented by: ROX Sodium Chloride (Ns) 500 mls @ 20 mls/hr IVCONT .Q24H [facility] Last Admin: 08/18/21 05:12 Dose: 20 mls/hr Documented by: ANIBAL Remdesivir 200 mg/ Sodium (Chloride) 210 mls @ 105 mls/hr IV ONCE ONE Stop: 08/18/21 13:59 Remdesivir 100 mg/ Sodium (Chloride) 230 mls @ 115 mls/hr IV Q24H [facility] Stop: 08/22/21 13:59 Levetiracetam (Levetiracetam Oral Soln 500 Mg/5 Ml) 700 mg PO BID [facility] Melatonin (Melatonin 3 Mg Tablet) 6 mg PO BEDTIME PRN PRN Reason: Insomnia Morphine Sulfate (Morphine Sulfate 4 Mg/Ml Cartridge) 1 mg IVPUSH Q4H PRN; Protocol PRN Reason: Pain, SOB Last Admin: 08/18/21 11:25 Dose: 1 mg Documented by: NIGEL Ondansetron HCl (Ondansetron Hcl 4 Mg/2 Ml Vial) 4 mg IVPUSH Q8H PRN PRN Reason: Nausea and Vomiting Last Admin: 08/18/21 11:35 Dose: 4 mg Documented by: NIGEL Ondansetron HCl (Ondansetron Hcl 4 Mg/2 Ml Vial) 4 mg IV Q8H PRN PRN Reason: Nausea Promethazine HCl (Promethazine Hcl 25 Mg Tablet) 25 mg PO QID PRN PRN Reason: Nausea And Vomiting Senna (Sennosides 8.6 Mg Tablet) 17.2 mg PO BEDTIME PRN PRN Reason: Constipation Sodium Chloride (0.9 % Sodium Chloride Flush 3 Ml Syringe) 3 ml IVFLUSH QSHIFT [facility] Last Admin: 08/18/21 09:41 Dose: 3 ml Documented by: NIGEL Tiotropium [place] (Tiotropium [place] 18 Mcg Cap.W.Dev) 1 puff INHALE RDAILY [facility] Last Admin: 08/18/21 08:08 Dose: Not Given Documented by: KARIE Non-Admin Reason: Med Not Available Tizanidine HCl (Tizanidine Hcl 4 Mg Tablet) 4 mg PO BEDTIME [facility] Labs CBC & Chem 7: 08/18/21 07:19 08/18/21 07:19 Labs: Laboratory Results - last 24 hr 08/17/21 08/17/21 08/17/21 19:10 19:10 19:10 MCV 90.8 MCH 29.9 MCHC 32.9 RDW 13.2 Plt Count 186 MPV 10.6 Immature Gran % (Auto) 0.0 Neut % (Auto) 61.1 Lymph % (Auto) 25.6 [place] % (Auto) 11.3 H Eos % (Auto) 1.7 Baso % (Auto) 0.3 Lymph # (Auto) 0.9 L [place] # (Auto) 0.4 Eos # (Auto) 0.1 Baso # (Auto) 0.0 Abs Immat Gran (auto) 0.00 Absolute Neuts (auto) 2.2 Absolute Nucleated RBC 0.000 Nucleated RBC % (auto) 0.0 Anion Gap 14 Estim Creat Clear Calc 70.9 Estimated GFR > 60 Random Glucose 109 Calcium 8.5 D Total Bilirubin 0.3 Direct Bilirubin < 0.2 AST 21 ALT 24 Alkaline Phosphatase 48 D C-Reactive Protein B-Natriuretic Peptide 53 Total Protein 6.6 Albumin 4.1 Lipase 17 Procalcitonin Urine Color Urine Appearance Urine pH Ur Specific [place] Urine Protein Urine Glucose (UA) Urine Ketones Urine Blood Urine Nitrite Ur Leukocyte Esterase COVID-19 ([facility]) COVID-19 Clin Com 08/17/21 08/18/21 08/18/21 19:10 00:25 07:19 MCV 90.7 MCH 30.2 MCHC 33.3 RDW 13.2 Plt Count 158 L MPV 10.6 Immature Gran % (Auto) 0.3 Neut % (Auto) 51.2 Lymph % (Auto) 32.6 [place] % (Auto) 12.8 H Eos % (Auto) 2.4 Baso % (Auto) 0.7 Lymph # (Auto) 0.9 L [place] # (Auto) 0.4 Eos # (Auto) 0.1 Baso # (Auto) 0.0 Abs Immat Gran (auto) 0.01 Absolute Neuts (auto) 1.5 L Absolute Nucleated RBC 0.000 Nucleated RBC % (auto) 0.0 Anion Gap Estim Creat Clear Calc Estimated GFR Random Glucose Calcium Total Bilirubin Direct Bilirubin AST ALT Alkaline Phosphatase C-Reactive Protein B-Natriuretic Peptide Total Protein Albumin Lipase Procalcitonin Urine Color YELLOW Urine Appearance CLEAR Urine pH 5.5 Ur Specific [place] >= 1.030 H Urine Protein NEG Urine Glucose (UA) NEG Urine Ketones 5 Urine Blood NEG Urine Nitrite NEG Ur Leukocyte Esterase NEG COVID-19 ([facility]NA) Positive A COVID-19 Clin Com See Note 08/18/21 08/18/21 07:19 07:19 MCV MCH MCHC RDW Plt Count MPV Immature Gran % (Auto) Neut % (Auto) Lymph % (Auto) [place] % (Auto) Eos % (Auto) Baso % (Auto) Lymph # (Auto) [place] # (Auto) Eos # (Auto) Baso # (Auto) Abs Immat Gran (auto) Absolute Neuts (auto) Absolute Nucleated RBC Nucleated RBC % (auto) Anion Gap 15 Estim Creat Clear Calc 82.9 Estimated GFR > 60 Random Glucose 78 Calcium 8.3 L Total Bilirubin Direct Bilirubin AST ALT Alkaline Phosphatase C-Reactive Protein 2.08 H B-Natriuretic Peptide Total Protein Albumin Lipase Procalcitonin 0.02 Urine Color Urine Appearance Urine pH Ur Specific [place] Urine Protein Urine Glucose (UA) Urine Ketones Urine Blood Urine Nitrite Ur Leukocyte Esterase COVID-19 ([facility]NA) COVID-19 Clin Com Assessment and Plan (1) Pneumonia due to COVID-19 virus: Status: Acute Plan hospital d#2 41yo F with Behcet syndrome, Crohn's disease, CVID, gastroparesis- on chronic TPN, history DVT/PE- on apixaban, chronic pain, hx spontaneous PTX recent admission for acute colitis admitted with severe Covid-19 PNA with hypoxia; symptoms present for 3d prior to admission # severe Covid-19 pneumonia - dexamethasone 6 mg daily d#06/01. notably, pt on prednisone 30 mg daily for recent Crohn's flare - remdesivir d#05/27 - ID consult - d/c ceftriaxone + azithromycin as PCT low and no evidence of bacterial superinfection # acute hypoxic respiratory failure - wean O2 as tolerated # hx DVT/PE - apixaban # gastroparesis - nutrition consult to continue TPN in hospital - ondansetron + diphenhydramine # seizure disorder - levetiracetam # chronic pain - prn morphine IV # VTE ppx - apixaban In my clinical judgment, the patient requires continued hospitalization for the following reasons: hypoxia, IV antiviral Quality Stroke Does the patient have a stroke diagnosis?: No VTE Prior VTE?: No VTE Risk Level:: Medical - moderate - high VTE Device Contraindication: Treatment Not Indicated VTE Drug Contraindication: N/A - Med Ordered
[2021-08-18] MEDS: levETIRAcetam Oral Soln 500 MG/5 ML 700 MG PO ×2 (12:13→22:32)
[2021-08-18 12:15] LABS: Magnesium 2.4 mg/dL (1.6-2.6); Phosphorus 3.3 mg/dL (2.7-4.5); Triglycerides 77 mg/dL
--- NOTE | 2021-08-18 13:09 | W.PM.IDCN ---
History of Present Illness Data of Consult Service Date: 08/18/21 Requesting physician: Keri Self Primary Care Provider: Unknown Physician HPI Reason for consult: COVID She presents to hospital with cough and shortness of breath. She has symptoms for four days. She is COVID positive and son has COVID as well. She has no known exposure and thinks son may have contracted it in school. Review of Systems Review of Systems: Yes all other systems are reviewed and are negative PMFSH Past Medical History Medical History Abdominal pain Abdominal pain, chronic, generalized Absence seizure disorder Asthma Behcet's disease Cervicalgia Chronic pain syndrome Common variable immunodeficiency Crohn's disease DVT (deep venous thrombosis) Gastroparesis Low back pain Pyloric stenosis Spondylolisthesis, lumbar region Spondylosis of lumbar region without myelopathy or radiculopathy Spontaneous pneumothorax Family History Family History Father Hairy cell leukemia Family history: reviewed and not pertinent Surgical History Surgical History History of hernia surgery Social History Social History Household Members: Other Household Members Other:: son Housing: [facility] Do you presently have visiting nurse or other home services: Yes Alcohol intake: never Patient Tobacco Use Status: Never used Tobacco Use of substances other than those prescribed or required for medical reasons: No Advance Directives: Yes Advance Directives on File: Yes Advance Directives Date on File: 03/12/21 service: No Current occupational status: unemployed Meds Allergies Allergy/AdvReac Type Severity Reaction Status Date / Time ciprofloxacin [Cipro] Allergy Unknown unknown Verified 08/12/21 08:31 levofloxacin [Levaquin] Allergy Unknown unknown Verified 08/12/21 08:31 metoclopramide [Reglan] Allergy Unknown unknown Verified 08/12/21 08:31 ondansetron [Zofran] Allergy Unknown unknown Verified 08/12/21 08:31 penicillin V Allergy Unknown unknown Verified 08/12/21 08:31 prochlorperazine Allergy Unknown unknown Verified 08/14/21 13:10 [From Compazine] Sulfa (Sulfonamide Allergy Unknown unknown Verified 08/12/21 08:31 Antibiotics) thalidomide [From Thalomid] Allergy Unknown unknown Verified 08/14/21 13:10 Active Medications: Current Medications Acetaminophen (Acetaminophen 325 Mg Tablet) 650 mg PO Q6H PRN PRN Reason: Pain, Mild (Pain Scale 1-3) Last Admin: 08/18/21 11:24 Dose: 650 mg Documented by: Albuterol Sulfate (Albuterol Sulfate 90 Mcg 8 Gm Inhaler) 2 puff INHALE Q4H PRN PRN Reason: Wheezing Apixaban (Apixaban 5 Mg Tablet) 5 mg PO BID [facility] Last Admin: 08/18/21 11:25 Dose: 5 mg Documented by: Dexamethasone (Dexamethasone 6 Mg Tablet) 6 mg PO DAILY [facility] Last Admin: 08/18/21 11:25 Dose: 6 mg Documented by: Diphenhydramine HCl (Diphenhydramine Hcl 50 Mg/Ml Vial) 25 mg IVPUSH Q6H PRN PRN Reason: Itching Last Admin: 08/18/21 11:35 Dose: 25 mg Documented by: Fluticasone/Vilanterol (Fluticasone/Vilanterol 200/25 Blst.W.Dev) 1 puff INHALE Q24H [facility] Last Admin: 08/18/21 08:08 Dose: Not Given Documented by: Remdesivir 200 mg/ Sodium (Chloride) 210 mls @ 105 mls/hr IV ONCE ONE Stop: 08/18/21 13:59 Remdesivir 100 mg/ Sodium (Chloride) 230 mls @ 115 mls/hr IV Q24H [facility] Stop: 08/22/21 13:59 Levetiracetam (Levetiracetam Oral Soln 500 Mg/5 Ml) 700 mg PO BID [facility] Last Admin: 08/18/21 12:13 Dose: 700 mg Documented by: Melatonin (Melatonin 3 Mg Tablet) 6 mg PO BEDTIME PRN PRN Reason: Insomnia Morphine Sulfate (Morphine Sulfate 4 Mg/Ml Cartridge) 1 mg IVPUSH Q4H PRN; Protocol PRN Reason: Pain, SOB Last Admin: 08/18/21 11:25 Dose: 1 mg Documented by: Ondansetron HCl (Ondansetron Hcl 4 Mg/2 Ml Vial) 4 mg IVPUSH Q8H PRN PRN Reason: Nausea and Vomiting Last Admin: 08/18/21 11:35 Dose: 4 mg Documented by: Ondansetron HCl (Ondansetron Hcl 4 Mg/2 Ml Vial) 4 mg IV Q8H PRN PRN Reason: Nausea Promethazine HCl (Promethazine Hcl 25 Mg Tablet) 25 mg PO QID PRN PRN Reason: Nausea And Vomiting Senna (Sennosides 8.6 Mg Tablet) 17.2 mg PO BEDTIME PRN PRN Reason: Constipation Sodium Chloride (0.9 % Sodium Chloride Flush 3 Ml Syringe) 3 ml IVFLUSH QSHIFT [facility] Last Admin: 08/18/21 09:41 Dose: 3 ml Documented by: Tiotropium [place] (Tiotropium [place] 18 Mcg Cap.W.Dev) 1 puff INHALE RDAILY [facility] Last Admin: 08/18/21 08:08 Dose: Not Given Documented by: Tizanidine HCl (Tizanidine Hcl 4 Mg Tablet) 4 mg PO BEDTIME [facility] Home Medications Medication Instructions Recorded Confirmed Last Taken Type tizanidine 4 mg tablet 4 mg PO BEDTIME 04/02/20 08/18/21 08/17/21 History apixaban 5 mg tablet (Eliquis) 5 mg PO BID 09/22/20 08/18/21 08/17/21 History albuterol sulfate 90 mcg/actuation 2 puff INHALATION Q4H PRN 12/12/20 08/18/21 08/17/21 History aerosol inhaler fluticasone furoate 200 1 inh INHALATION Q24H 12/12/20 08/18/21 08/17/21 History mcg-vilanterol 25 mcg/dose inhalation powder (Breo Ellipta) umeclidinium 62.5 mcg/actuation 1 inh INHALATION DAILY 12/12/20 08/18/21 08/17/21 History blister powder for inhalation (Incruse Ellipta) acetaminophen 325 mg tablet 650 mg PO Q4H PRN 03/12/21 08/18/21 08/17/21 History diphenhydramine HCl 50 mg/mL 25 mg IV QID PRN 03/12/21 08/18/21 08/17/21 History injection solution ondansetron HCl (PF) 4 mg/2 mL 4 mg IV QID PRN 03/12/21 08/18/2108/17/22 History injection solution levetiracetam 100 mg/mL oral 700 mg PO BID 08/18/21 08/18/21 08/17/21 History solution (Keppra) prednisone 10 mg tablet 30 mg PO DAILY 08/18/21 08/18/21 08/17/21 History promethazine 25 mg tablet 25 mg PO QID PRN 08/18/21 08/18/21 08/17/21 History Physical Exam Vital Signs: Vital Signs: Last Vital Signs Temp 98.8 F 08/18/21 10:46 Pulse 83 08/18/21 12:15 Resp 19 08/18/21 12:15 BP 123/62 08/18/21 12:15 Pulse Ox 98 08/18/21 12:15 BMI result Body Mass Index 25.9 Const: General: cooperative HEENT: Head: Yes normal to inspection Mouth: Normal oral and palatal mucosa present Eyes: General: appearance normal, both eyes and all related structures Resp: Effort & Inspection: normal respiratory effort Cardio: Rate: regular rate Rhythm: regular rhythm GI: Palpation (GI): nontender Skin: General skin exam: no rashes or lesions noted Extrem: General: Yes normal to inspection Results Labs CBC & Chem 7: 08/18/21 07:19 08/18/21 07:19 Labs: Short CBC 08/17/21 08/18/21 Range/Units 19:10 07:19 WBC 3.6 L 2.9 L (4.8-10.8) X10*3/uL Hgb 11.4 L 12.0 (12.0-16.0) g/dl Hct 34.6 L 36.0 L (37.0-47.0) % Plt Count 186 158 L (160-400) X10*3/uL BMP 08/17/21 08/18/21 19:10 07:19 Sodium 138 139 Potassium 4.0 3.9 Chloride 105 109 H Carbon Dioxide 23 19 L BUN 19 H 14 Creatinine 0.83 0.71 Calcium 8.5 D 8.3 L Liver Function 08/17/21 08/18/21 Range/Units 19:10 07:19 Total Bilirubin 0.3 (0.0-1.0) mg/dL Direct Bilirubin < 0.2 (0.0-0.5) mg/dL AST 21 (5-31) U/L ALT 24 (0-31) U/L Alkaline Phosphatase 48 D (39-117) U/L Albumin 4.1 4.0 (3.5-5.0) g/dL Urine 08/18/21 Range/Units 00:25 Urine Color YELLOW Urine Appearance CLEAR Urine pH 5.5 (5.0-8.0) Ur Specific [place] >= 1.030 H (1.005-1.025) Urine Protein NEG (NEG-TRACE) MG/DL Urine Glucose (UA) NEG (NEG) MG/DL Assessment and Plan (1) Pneumonia due to COVID-19 virus: Status: Acute She has acute COVID pneumonia with minimal oxygen requirements She has leukopenia consistent with this and with immunodeficiency. She has no signs of multisystem organ failure She is very immunosuppressed with Behcets syndrome. Plan Would continue oxygen for RA saturation less than 94% only May use Remdesvir until oxygen returns to normal (94% or more) and then stop. No antibiotics No baricitinib unless oxygen deteriorates to high flow. VTE prophylaxis COVID precautions.
[2021-08-18] MEDS: Remdesivir 200 MG in 0.9 % Sodium Chloride 210 ML 105 MG IV (13:42)
--- NOTE | 2021-08-18 15:20 | MHC.CLN ---
RE: CONSULT PT REQUIRES TPN FOR NUTRITION SUPPORT R/T CROHN'S DX AND GASTROPARESIS. PT RECEIVES TPN AT HOME AND FAMILIAR FROM RECENT HOSPITAL STAY PT C/O PERSISTENT NAUSEA CURRENTLY NPO-TOLERATED SOME FOOD ITEMS LAST ADMISSION BUT CAN NOT MAINTAIN ESTIMATED NEEDS RECOMMEND D15AA5% AT GOAL RATE OF 65ML/HR WITH 18ML OF 20% LIPIDS TO PROVIDE 1540KCALS TOTAL FROM FORMULA AND LIPIDS (30.8KCALS/KG BASED ON CMW), 78G PROTEIN (1.5G/KG) DISCUSSED WITH PHARM, REPLETE LYTES NEEDED (NOTED TRIGS WNL) SEE ALSO FULL CLINICAL NUTRITION ASSESSMENT
[2021-08-18] MEDS: Fat Emulsions 20% 250 ML 18 ML IVCONT (18:41)
--- NOTE | 2021-08-18 18:44 | MHC.CM.PN ---
CM met with admitted patient with bed assignment pending. IMM 08/18. HCP not on file. Copy requested. HCP/friend Cassie Holloway ([phone]). PCP Rachael Acosta. Vaccinated x2 Pfizer. No booster. COVID 19 positive on 08/16/21. 18y/o son is also positive. Pt recently admitted to [facility] and D/C on 08/04 with acute colitis. Pt is immunocompromised with extensive medical hx. Pt uses chronic TPN. Services with [facility]. Lives with son. D/C plan: home with existing services. Pt plans to drive herself home. CM to follow for d/c needs.
--- NOTE | 2021-08-18 20:30 | PC.NURSE ---
Assumed care of pt Pt medicated per JUL Pt tolerating well Pt tolerating TPN NAD Will continue to monitor
[2021-08-18] MEDS: TiZANidine HCL 4 MG TABLET PO (22:32)
--- NOTE | 2021-08-18 23:18 | PC.NURSE ---
Pt had episode of incontinence Pt cleaned and bedings changed Pt tolerated well Will continue to monitor
[2021-08-19] VITALS (7 sets, daily range): BP systolic 102–119; BP diastolic 51–69; PULSE 64–87; RESP 13–20; TEMP 36.3–36.9; O2SAT 94–97
[2021-08-19] MEDS: Morphine Sulfate 4 MG/ML CARTRIDGE 1 MG IVPUSH ×4 (02:36→20:40)
[2021-08-19] MEDS: diphenhydrAMINE HCL 50 MG/ML VIAL 25 MG IVPUSH ×3 (05:29→22:29)
[2021-08-19] MEDS: ondansetron HCL 4 MG/2 ML VIAL IVPUSH ×3 (05:29→22:29)
[2021-08-19] MEDS: Fluticasone/Vilanterol 200/25 BLST.W.DEV 1 PUFF INHALE (07:53)
[2021-08-19 08:03] LABS: Hematocrit 35.3 % (37.0-47.0); Hemoglobin 11.9 g/dl (12.0-16.0); Mean Corpuscular HGB Conc 33.7 g/dl (31.0-35.0); Mean Corpuscular Hemoglobin 30.2 pg (27.0-33.0); Mean Corpuscular Volume 89.6 fL (80.0-98.0); Mean Platelet Volume 10.2 fL (9.4-12.3); Platelet Count 173 X10*3/uL (160-400); Red Blood Count 3.94 X10*6/uL (4.20-5.50); Red Cell Distribution Width 12.9 % (11.0-16.0); White Blood Count 3.2 X10*3/uL (4.8-10.8)
[2021-08-19 08:10] LABS: D Dimer High Sensitivity < 150 NG/ML
[2021-08-19 08:40] LABS: Alanine Aminotransferase 16 U/L (0-31); Albumin Level 3.9 g/dL (3.5-5.0); Alkaline Phosphatase 44 U/L (39-117); Anion Gap 10 (12-20); Aspartate Amino Transferase 14 U/L (5-31); Bilirubin Total 0.2 mg/dL (0.0-1.0); Blood Urea Nitrogen 13 mg/dL (9-16); Calcium 8.9 mg/dL (8.4-10.2); Carbon Dioxide 24 mmol/L (22-29); Chloride 107 mmol/L (96-108); Creatinine Clr Calc Pharmacy 89.2; Estimated Glomerular Filt Rate > 60; Glucose Random 167 mg/dL (60-115); Magnesium 2.3 mg/dL (1.6-2.6); Potassium 4.1 mmol/L (3.3-5.1); Sodium 137 mmol/L (135-145); Total Protein 6.1 g/dL (6.5-8.0)
[2021-08-19] MEDS: dexAMETHasone 6 MG TABLET PO (08:41)
[2021-08-19] MEDS: Apixaban 5 MG TABLET PO ×2 (08:41→20:40)
[2021-08-19] MEDS: levETIRAcetam Oral Soln 500 MG/5 ML 700 MG PO ×2 (08:41→22:29)
[2021-08-19 08:50] LABS: Phosphorus 2.3 mg/dL (2.7-4.5)
--- NOTE | 2021-08-19 09:02 | MHC.CLN ---
F/U CONTINUE D15AA5% AT GOAL RATE OF 65ML/HR WITH 18ML OF 20% LIPIDS TO PROVIDE 1540KCALS TOTAL FROM FORMULA AND LIPIDS (30.8KCALS/KG BASED ON CMW), 78G PROTEIN (1.5G/KG) REVIEWED LABS AND DISCUSSED WITH PHARM REPLETE LYTES NEEDED
--- NOTE | 2021-08-19 09:41 | HO.PM.IMPN ---
Subjective Subjective Date of Service: 08/19/21 Interval History: Weaned off O2 but still dyspneic. Some pleuritic chest pain. C/o myalgias + malaise Review of Systems Review of Systems: Yes all other systems are reviewed and are negative Physical Exam Vital Signs: Vital Signs: Last Vital Signs Temp 98.0 F 08/19/21 07:29 Pulse 87 08/19/21 07:53 Resp 18 08/19/21 07:53 BP 102/51 L 08/19/21 07:29 Pulse Ox 97 08/19/21 07:29 BMI result Body Mass Index 25.9 Gen: weak-appearing HEENT: sclera anicteric, moist mucus membranes Neck: supple Lungs: clear to auscultation bilaterally Heart: regular rate and rhythm, no murmurs Abd: soft, non-tender, non-distended Ext: no edema Skin: warm/well-perfused Neuro: alert and oriented x3, no focal findings Psych: appropriate affect Objective Data Active Medications Acetaminophen (Acetaminophen 325 Mg Tablet) 650 mg PO Q6H PRN PRN Reason: Pain, Mild (Pain Scale 1-3) Last Admin: 08/18/21 11:24 Dose: 650 mg Documented by: NIGEL Albuterol Sulfate (Albuterol Sulfate 90 Mcg 8 Gm Inhaler) 2 puff INHALE Q4H PRN PRN Reason: Wheezing Apixaban (Apixaban 5 Mg Tablet) 5 mg PO BID [facility] Last Admin: 08/19/21 08:41 Dose: 5 mg Documented by: CORIE Dexamethasone (Dexamethasone 6 Mg Tablet) 6 mg PO DAILY [facility] Last Admin: 08/19/21 08:41 Dose: 6 mg Documented by: CORIE Diphenhydramine HCl (Diphenhydramine Hcl 50 Mg/Ml Vial) 25 mg IVPUSH Q6H PRN PRN Reason: Itching Last Admin: 08/19/21 05:29 Dose: 25 mg Documented by: DALI Fluticasone/Vilanterol (Fluticasone/Vilanterol 200/25 Blst.W.Dev) 1 puff INHALE Q24H [facility] Last Admin: 08/19/21 07:53 Dose: 1 puff Documented by: KHUSHI Remdesivir 100 mg/ Sodium (Chloride) 230 mls @ 115 mls/hr IV Q24H [facility] Stop: 08/22/21 13:59 Potassium Chloride 60 meq/Sodium Chloride 40 meq/Magnesium Sulfate 10 meq/Calcium Gluconate 9.3 meq/Sodium Acetate 100 meq/ Amino Acids/Dextrose 1,560 mls @ 65 mls/hr IVCONT DAILY@1800 [facility] Stop: 08/19/21 17:59 Last Admin: 08/18/21 18:41 Dose: 65 mls/hr Documented by: CHRYSTAL Levetiracetam (Levetiracetam Oral Soln 500 Mg/5 Ml) 700 mg PO BID [facility] Last Admin: 08/19/21 08:41 Dose: 700 mg Documented by: CORIE Melatonin (Melatonin 3 Mg Tablet) 6 mg PO BEDTIME PRN PRN Reason: Insomnia Morphine Sulfate (Morphine Sulfate 4 Mg/Ml Cartridge) 1 mg IVPUSH Q4H PRN; Protocol PRN Reason: Pain, SOB Last Admin: 08/19/21 08:55 Dose: 1 mg Documented by: CORIE Ondansetron HCl (Ondansetron Hcl 4 Mg/2 Ml Vial) 4 mg IVPUSH Q8H PRN PRN Reason: Nausea and Vomiting Last Admin: 08/19/21 05:29 Dose: 4 mg Documented by: DALI Ondansetron HCl (Ondansetron Hcl 4 Mg/2 Ml Vial) 4 mg IV Q8H PRN PRN Reason: Nausea Promethazine HCl (Promethazine Hcl 25 Mg Tablet) 25 mg PO QID PRN PRN Reason: Nausea And Vomiting Senna (Sennosides 8.6 Mg Tablet) 17.2 mg PO BEDTIME PRN PRN Reason: Constipation Sodium Chloride (0.9 % Sodium Chloride Flush 3 Ml Syringe) 3 ml IVFLUSH QSHIFT [facility] Last Admin: 08/19/21 08:49 Dose: Not Given Documented by: TARA Non-Admin Reason: IV Running Tiotropium [place] (Tiotropium [place] 18 Mcg Cap.W.Dev) 1 puff INHALE RDAILY [facility] Last Admin: 08/19/21 07:57 Dose: 1 puff Documented by: KHUSHI Tizanidine HCl (Tizanidine Hcl 4 Mg Tablet) 4 mg PO BEDTIME [facility] Last Admin: 08/18/21 22:32 Dose: 4 mg Documented by: DALI Labs CBC & Chem 7: 08/19/21 07:53 08/19/21 07:53 Labs: Laboratory Results - last 24 hr 08/18/21 08/18/21 08/19/21 07:19 07:19 07:53 MCV 89.6 MCH 30.2 MCHC 33.7 RDW 12.9 Plt Count 173 MPV 10.2 Absolute Nucleated RBC 0.000 Nucleated RBC % (auto) 0.0 D-Dimer High Sensitivty Anion Gap Estim Creat Clear Calc Estimated GFR Random Glucose Calcium Phosphorus 3.3 Magnesium 2.4 Total Bilirubin AST ALT Alkaline Phosphatase Total Protein Albumin 4.0 Triglycerides 77 Procalcitonin 0.02 08/19/21 08/19/21 07:53 07:53 MCV MCH MCHC RDW Plt Count MPV Absolute Nucleated RBC Nucleated RBC % (auto) D-Dimer High Sensitivty < 150 Anion Gap 10 L Estim Creat Clear Calc 89.2 Estimated GFR > 60 Random Glucose 167 H Calcium 8.9 D Phosphorus 2.3 L Magnesium 2.3 Total Bilirubin 0.2 AST 14 ALT 16 Alkaline Phosphatase 44 Total Protein 6.1 L Albumin 3.9 Triglycerides Procalcitonin Assessment and Plan (1) Pneumonia due to COVID-19 virus: Status: Acute [facility] hospital d#3 41yo F with Behcet syndrome, Crohn's disease, CVID, gastroparesis- on chronic TPN, history DVT/PE- on apixaban, chronic pain, hx spontaneous PTX recent admission for acute colitis admitted with severe Covid-19 PNA with hypoxia; symptoms present for 3d prior to admission # severe Covid-19 pneumonia - dexamethasone 6 mg daily d#2. notably, pt on prednisone 30 mg daily for recent Crohn's flare and scheduled to taper to 20 mg daily next week. 6 mg of dexamethasone is approximately equivalent to 40 mg of prednisone - remdesivir d#2 - ID consulted - d/c'ed ceftriaxone + azithromycin as PCT low and no evidence of bacterial superinfection # acute hypoxic respiratory failure - weaned off O2 # hx DVT/PE - apixaban # hypoPO4 - increase PO4 in TPN # gastroparesis - continue TPN - ondansetron + diphenhydramine # seizure disorder - levetiracetam # chronic pain - prn morphine IV # VTE ppx - apixaban # dispo - home tomorrow if off O2 x 24h In my clinical judgment, the patient requires continued hospitalization for the following reasons: hypoxia, immunosuppression, IV antiviral Quality Stroke Does the patient have a stroke diagnosis?: No VTE Prior VTE?: No VTE Risk Level:: Medical - moderate - high VTE Device Contraindication: Treatment Not Indicated VTE Drug Contraindication: N/A - Med Ordered
--- NOTE | 2021-08-19 10:47 | PC.NURSE ---
PATIENT FAILED SWALLOW EVAL
[2021-08-19] MEDS: Remdesivir 100 MG in 0.9 % Sodium Chloride 230 ML 115 MG IV (12:12)
[2021-08-19] MEDS: Fat Emulsions 20% 250 ML 18 ML IVCONT (19:37)
[2021-08-19] MEDS: TiZANidine HCL 4 MG TABLET PO (20:40)
[2021-08-20] VITALS: BP 98/51; PULSE 75; RESP 19; TEMP 36.9; O2SAT 95
[2021-08-20] MEDS: 0.9 % Sodium Chloride Flush 3 ML SYRINGE IVFLUSH ×3 (01:00→16:24)
[2021-08-20] MEDS: Morphine Sulfate 4 MG/ML CARTRIDGE 1 MG IVPUSH ×3 (01:38→12:28)
[2021-08-20 03:38] VITALS: BP 96/55; PULSE 52; RESP 19; TEMP 36.2; O2SAT 96
[2021-08-20] MEDS: Apixaban 5 MG TABLET PO (07:14)
[2021-08-20] MEDS: dexAMETHasone 6 MG TABLET PO (07:14)
[2021-08-20] MEDS: levETIRAcetam Oral Soln 500 MG/5 ML 700 MG PO (07:14)
[2021-08-20] MEDS: ondansetron HCL 4 MG/2 ML VIAL IVPUSH ×2 (07:29→16:24)
[2021-08-20 07:33] LABS: Hematocrit 38.1 % (37.0-47.0); Hemoglobin 12.8 g/dl (12.0-16.0); Mean Corpuscular HGB Conc 33.6 g/dl (31.0-35.0); Mean Corpuscular Volume 89.2 fL (80.0-98.0); Mean Platelet Volume 10.8 fL (9.4-12.3); Platelet Count 187 X10*3/uL (160-400); Red Blood Count 4.27 X10*6/uL (4.20-5.50); Red Cell Distribution Width 13.2 % (11.0-16.0); White Blood Count 5.1 X10*3/uL (4.8-10.8)
[2021-08-20] MEDS: diphenhydrAMINE HCL 50 MG/ML VIAL 25 MG IVPUSH ×2 (07:39→16:23)
[2021-08-20 07:52] LABS: Alanine Aminotransferase 14 U/L (0-31); Albumin Level 4.2 g/dL (3.5-5.0); Alkaline Phosphatase 48 U/L (39-117); Anion Gap 13 (12-20); Aspartate Amino Transferase 12 U/L (5-31); Bilirubin Total 0.2 mg/dL (0.0-1.0); Blood Urea Nitrogen 18 mg/dL (9-16); C Reactive Protein 0.88 mg/dL (< or = 0.50); Calcium 9.1 mg/dL (8.4-10.2); Carbon Dioxide 25 mmol/L (22-29); Chloride 108 mmol/L (96-108); Creatinine Clr Calc Pharmacy 80.7; Estimated Glomerular Filt Rate > 60; Glucose Random 97 mg/dL (60-115); Potassium 3.9 mmol/L (3.3-5.1); Sodium 142 mmol/L (135-145); Total Protein 6.7 g/dL (6.5-8.0)
[2021-08-20 08:00] VITALS: BP 90/50; PULSE 64; RESP 17; TEMP 36.8; O2SAT 97
[2021-08-20 08:30] LABS: Magnesium 2.5 mg/dL (1.6-2.6); Phosphorus 3.2 mg/dL (2.7-4.5)
--- NOTE | 2021-08-20 09:52 | PM.DS ---
DS: Providers Provider Date of Service: 08/20/21 Date of admission: 08/17/21 21:00 Date of discharge: 08/20/21 Primary care physician: Amelie Banks NP Consults: 08/17/21 21:00 Consult to Infectious Diseases Routine Consulting Provider: Meagan Shabazz Reason for consultation: covid pna DS: Diagnosis Discharge Diagnosis (1) Pneumonia due to COVID-19 virus: Status: Acute (2) Acute respiratory failure with hypoxia: Status: Acute (3) Immunosuppression: Status: Acute DS: Summary Hospital Course Hospital Course: from admission H+P by Jono Vega, 08/17/21: 41-year-old female with a past medical history of Behcet syndrome, Crohn's disease, gastroparesis-on chronic TPN history of DVT/PE on Eliquis, chronic pain syndrome, common variable immunodeficiency, spondylolisthesis, chronic low back pain, history of spontaneous pneumothorax presented to the hospital today with a chief complaint of shortness of breath.? Patient reported that for the past few days she has been having upper lateral back pain, worsens with deep inspiration; went to urgent care on last Tuesday and noted to have COVID-19 positive.? Patient mentioned that she was also told that she had mild pleural effusions.? Complains of cough.? Denies any sputum production.? Mention she has been having shortness of breath which has been gradually worsening over the past couple days.? Denies any sick contacts.? But after she got tested positive mentions her son was positive yesterday for COVID-19.? Denies any chest pain or palpitations.? Denies any urinary symptoms.? Patient reports that she has gastroparesis and has been having decreased oral intake and persistent nausea.? Mentions that she takes Zofran with Benadryl at home.? Also reports he has been on TPN.? Review of all other systems is negative except mentioned above ER course: Per ER team patient noted to have coarse breath sounds; patient was saturating 89% on room air; labs essentially benign; chest x-ray showed increased interstitial markings compared to chest x-ray a few days ago concerning for atypical infectious process.? Admitted to the hospital for further management This 41 year-old woman with Behcet syndrome, Crohn's disease, CVID, gastroparesis- on chronic TPN, history DVT/PE- on apixaban, chronic pain, hx spontaneous PTX, and recent admission for acute colitis was admitted with severe Covid-19 PNA with hypoxia. Symptoms were present for 3 days prior to admission. She was admitted on isolation precautions and treated with dexamethasone x 3 days and remdesivir x 3 days after consultation with Infectious Disease. She was weaned off of supplemental oxygen and then discharged home with resumption of VNA services. She was prescribed 7 more days of dexamethasone 6 mg daily, after which she will return to taking prednisone 30 mg daily with tapering as per her GI doctor. She was continued on TPN while hospitalized. Time Spent with Patient Time attestation: Total time spent providing and/or coordinating discharge services: Discharge coordination time: Greater than 30 minutes Quality: Stroke Does the patient have a stroke diagnosis?: No Physical Exam Vital Signs: Vital Signs: Last Vital Signs Temp 98.2 F 08/20/21 08:00 Pulse 64 08/20/21 08:00 Resp 17 08/20/21 08:00 BP 90/50 L 08/20/21 08:00 Pulse Ox 97 08/20/21 08:00 BMI result Body Mass Index 25.9 Gen: chronically ill HEENT: sclera anicteric, moist mucus membranes Neck: supple Lungs: clear to auscultation bilaterally Heart: regular rate and rhythm, no murmurs Abd: soft, non-tender, non-distended Ext: no edema Skin: warm/well-perfused Neuro: alert and oriented x3, no focal findings Psych: appropriate affect DS: Data Data Completed and Pending Labs on day of discharge: Laboratory Results - last 24 hr 08/20/21 08/20/21 06:39 06:39 WBC 5.1 RBC 4.27 Hgb 12.8 Hct 38.1 MCV 89.2 MCH 30.0 MCHC 33.6 RDW 13.2 Plt Count 187 MPV 10.8 Absolute Nucleated RBC 0.000 Nucleated RBC % (auto) 0.0 Sodium 142 Potassium 3.9 Chloride 108 Carbon Dioxide 25 Anion Gap 13 BUN 18 H Creatinine 0.73 Estim Creat Clear Calc 80.7 Estimated GFR > 60 Random Glucose 97 Calcium 9.1 Phosphorus 3.2 Magnesium 2.5 Total Bilirubin 0.2 AST 12 ALT 14 Alkaline Phosphatase 48 C-Reactive Protein 0.88 H Total Protein 6.7 Albumin 4.2 Discharge Plan Discharge Patient Disposition: Home Health Service Discharge Diagnosis: hypoxia + pneumonia due to Covid-19 infection Referrals: Amelie Banks NP [Primary Care Provider] - 1 Week Discharge Medications: New dexamethasone 6 mg Tablet 6 mg PO DAILY Qty: 7 0RF Continued albuterol sulfate 90 mcg/actuation Hfa Aerosol Inhaler 2 puff INHALATION Q4H PRN (Reason: Wheezing) 0RF Incruse Ellipta 62.5 mcg/actuation Blister With Device 1 inh INHALATION DAILY 0RF Breo Ellipta 200-25 mcg/dose Blister With Device 1 inh INHALATION Q24H 0RF diphenhydramine HCl 50 mg/mL solution 25 mg IV QID PRN (Reason: Nausea) 0RF ondansetron HCl (PF) 4 mg/2 mL solution 4 mg IV QID PRN (Reason: Nausea) 0RF acetaminophen 325 mg Tablet 650 mg PO Q4H PRN (Reason: Pain) 0RF promethazine 25 mg Tablet 25 mg PO QID PRN (Reason: Nausea And Vomiting) 0RF levetiracetam [Keppra] 100 mg/mL Solution 700 mg PO BID 0RF tizanidine 4 mg tablet 4 mg PO BEDTIME 0RF Eliquis 5 mg tablet 5 mg PO BID 0RF hydromorphone 4 mg tablet 4 mg PO TID PRN (Reason: pain) 30 Days Qty: 90 0RF Held prednisone 10 mg Tablet 30 mg PO DAILY 0RF Hold Instructions: Resume on 08/28/21. hold until finished with dexamethasone Discharge Orders: Discharge Order (Routine); Ordered 08/20/21 Ordered By: Keri Self Diet: advance to usual diet Activity on Discharge: As tolerated Stand Alone Forms: Patient Portal Discharge page Care Plan Goals: recovery from Covid-19 Health Concerns: hypoxia + pneumonia due to Covid-19 infection Plan of Treatment: take dexamethasone 6 mg daily for 7 days, then return to prednisone 30 mg daily and taper as per GI doctor isolation per CDC guidelines: 5 days from onset of symptoms, then wear mask for 5 additional days check oxygen saturation 3x a day and as needed for shortness of breath; return to hospital if <90% see your primary care doctor in 1 week Assessment: see Discharge Summary Patient Instructions: COVID-19 (Coronavirus Disease 2019) (DC)
[2021-08-20 12:00] VITALS: BP 103/59; PULSE 76; RESP 18; TEMP 36.4; O2SAT 97
[2021-08-20] MEDS: Remdesivir 100 MG in 0.9 % Sodium Chloride 230 ML 115 MG IV (12:29)
--- NOTE | 2021-08-20 12:55 | MHC.CM.PN ---
IMM 08/20/21 Female 41 DX Covid She is discharged today. Home care services with [facility] will resume. All discharge info has been sent to the agency. [facility] will resume home infusion services. The patient has arranged for transportation home.
== END 2021-08-20 17:30 | disposition home health service (06) | DRG 177 ==
LOC: HO.ED 21:06 → HO.EDOVER 21:54 → HO.IMC 08-19 16:11
PROVIDERS: Admitting Provider Hospitalist; Emergency Provider Emergency Medicine; PCP Registered Nurse; Visit Provider Family Medicine
DX: U07.1 COVID-19 (principal); J12.82 Pneumonia due to coronavirus disease 2019; J96.01 Acute respiratory failure with hypoxia; M35.2 Behcet's disease; K50.90 Crohn's disease, unspecified, without complications; G40.909 Epilepsy, unspecified, not intractable, without status epilepticus; K31.84 Gastroparesis; G89.4 Chronic pain syndrome; Z88.0 Allergy status to penicillin; Z88.2 Allergy status to sulfonamides; Z86.718 Personal history of other venous thrombosis and embolism; Z86.711 Personal history of pulmonary embolism; Z79.899 Other long term (current) drug therapy
CPT/HCPCS: 36415; 71045; 80048; 80053; 80076; 81003; 82040; 83690; 83735; 83880; 84100; 84145; 84478; 85025; 85027; 85379; 86140; 87635; 93005; 94640; 96360; 99285; J0248; J0610; J0696; J1200; J2270; J2405; J3475; J8540

== ENCOUNTER → 2021-08-26 16:34 | Outpatient (BNVA) | payer MEDICARE, MEDICAID, SELFPAY | PROVIDERS: PCP Registered Nurse; Visit Provider Anesthesiology | DX: Z13.89 Encounter for screening for other disorder (principal) | CPT/HCPCS: Q3014 ==

== ENCOUNTER → 2021-09-16 08:00 | Outpatient (BNVA) | payer MEDICARE, MEDICAID, SELFPAY | PROVIDERS: PCP Registered Nurse; Visit Provider Nurse Practitioner Family | DX: G89.4 Chronic pain syndrome (principal); M54.50 Low back pain, unspecified; M54.2 Cervicalgia; M35.2 Behcet's disease; K50.918 Crohn's disease, unspecified, with other complication; Z79.891 Long term (current) use of opiate analgesic | CPT/HCPCS: 99212 ==

== ENCOUNTER → 2021-10-22 11:30 | Outpatient (BNVA) | payer MEDICARE, MEDICAID, SELFPAY | PROVIDERS: PCP Registered Nurse; Visit Provider Anesthesiology | DX: Z79.891 Long term (current) use of opiate analgesic (principal) | CPT/HCPCS: 99211 ==

== ENCOUNTER → 2021-11-19 10:31 | Outpatient (BNVA) | payer MEDICARE, MEDICAID, SELFPAY | PROVIDERS: PCP Registered Nurse; Visit Provider Anesthesiology | DX: Z51.81 Encounter for therapeutic drug level monitoring (principal); F11.20 Opioid dependence, uncomplicated | CPT/HCPCS: 99211 ==

== ENCOUNTER → 2021-12-16 09:16 | Outpatient (BNVA) | payer MEDICARE, MEDICAID, SELFPAY | PROVIDERS: PCP Registered Nurse; Visit Provider Anesthesiology | DX: Z51.81 Encounter for therapeutic drug level monitoring (principal); F11.20 Opioid dependence, uncomplicated; M35.2 Behcet's disease; K50.918 Crohn's disease, unspecified, with other complication; M54.50 Low back pain, unspecified; M54.2 Cervicalgia; G89.4 Chronic pain syndrome | CPT/HCPCS: 99212 ==

== ENCOUNTER → 2022-01-13 09:25 | Outpatient (BNVA) | payer MEDICARE, MEDICAID, SELFPAY | PROVIDERS: PCP Registered Nurse; Visit Provider Anesthesiology | DX: Z51.81 Encounter for therapeutic drug level monitoring (principal); F11.20 Opioid dependence, uncomplicated; M35.2 Behcet's disease; K50.918 Crohn's disease, unspecified, with other complication; M54.2 Cervicalgia; M54.50 Low back pain, unspecified; G89.4 Chronic pain syndrome | CPT/HCPCS: 99212 ==

== ENCOUNTER 2022-01-24 13:27 | Emergency (ER) | payer MEDICARE, MEDICAID, SELFPAY ==
--- NOTE | ~2022-01-24 | CT_ITS ---
EXAMINATION: CT ABDOMEN AND PELVIS WITHOUT CONTRAST CLINICAL INFORMATION: Diffuse abdominal pain. COMPARISON: Multiple prior examinations, most recent CT of the abdomen and pelvis 07/2021. TECHNIQUE: Multidetector volumetric imaging was performed from the superior aspect of the liver through the pubic symphysis. Sagittal and coronal reformatted images were obtained on the technologist's workstation. This CT examination was performed using dose optimization techniques as appropriate, variously including the following: *Automated exposure control *Adjustment of mA and/or kV according to patient size (this includes techniques or standardized protocols for targeted exams where dose is matched to indication/reason for exam; i.e. extremities or head) *Use of iterative reconstruction technique DLP: 417 mGy-cm FINDINGS: LUNG BASES: Minimal bibasilar scarring and/or atelectasis unchanged. LIVER, GALLBLADDER, AND BILIARY TREE: The liver is normal in size, shape, and attenuation. No focal hepatic lesion or biliary ductal dilatation is present. The gallbladder is unremarkable with no evidence of radiopaque gallstones, gallbladder wall thickening, or obvious pericholecystic inflammatory changes. PANCREAS: Unremarkable. SPLEEN: Unremarkable. ADRENAL GLANDS: Unremarkable. KIDNEYS AND URETERS: The kidneys are normal in size, shape, and attenuation. No hydronephrosis, hydroureter, or calculi seen. No perinephric stranding. BLADDER: Unremarkable. GASTROINTESTINAL TRACT: The small and large bowel are unremarkable. The appendix is unremarkable. ABDOMINAL WALL: There is persistent diastases of the rectus muscles supraumbilical region. Post-surgical changes along the left lateral chest wall which is unchanged. LYMPH NODES: Normal. VASCULAR: Right sided translumbar central venous catheter in place with the tip at the entrance of the inferior vena cava and right atrium which is unchanged. PELVIC VISCERA: Unremarkable. OSSEOUS STRUCTURES: Lumbar spondylosis with grade 1 degenerative spondylolisthesis at L5-S1 which is unchanged. CT/CT abdomen pelvis wo IV con IMPRESSION: No etiology for patient's reported abdominal pain. Multiple stable and chronic findings as detailed above. Previously noted colitis not visualized on this exam. Fleischner guidelines were followed.
[2022-01-24 15:21] VITALS: BP 148/63; PULSE 81; RESP 16; TEMP 35.7; O2SAT 100; BMI 26.0
[2022-01-24 16:04] LABS: MANUAL DIFF FLAG NO
[2022-01-24 16:07] LABS: Basophils Percent Auto 0.7 % (0-2); Eosinophils Absolute Auto 0.1 X10*3/uL (0.0-0.4); Eosinophils Percent Auto 1.7 % (0-4); Hematocrit 38.3 % (37.0-47.0); Hemoglobin 12.9 g/dl (12.0-16.0); Imm Gran Abs Auto 0.01 X10*3/uL (0.00-0.03); Imm Gran Pct Auto 0.2 % (0.0-0.4); Lymphocytes Absolute Auto 1.4 X10*3/uL (1.2-4.9); Lymphocytes Percent Auto 25.7 % (20-40); Mean Corpuscular HGB Conc 33.7 g/dl (31.0-35.0); Mean Corpuscular Hemoglobin 29.7 pg (27.0-33.0); Mean Corpuscular Volume 88.2 fL (80.0-98.0); Mean Platelet Volume 10.3 fL (9.4-12.3); Monocytes Absolute Auto 0.5 X10*3/uL (0.1-1.2); Monocytes Percent Auto 8.5 % (2-11); Neutrophils Absolute Auto 3.4 x10*3/uL (2.0-8.3); Neutrophils Percent Auto 63.2 % (45-73); Platelet Count 240 X10*3/uL (160-400); Red Blood Count 4.34 X10*6/uL (4.20-5.50); Red Cell Distribution Width 12.6 % (11.0-16.0); White Blood Count 5.4 X10*3/uL (4.8-10.8)
[2022-01-24 16:22] LABS: COVID-19 Test Negative (Negative); IDNOW Serial# 16C4AD1C
[2022-01-24 16:26] LABS: Appearance Urine Clear; Color Urine Yellow; Glucose Urine UA Negative (Negative); Leukocyte Esterase Urine Small (1+) (Negative); Nitrite Urine Negative (Negative); PH 5.5 (5.0-9.0); Specific Gravity - Urine >= 1.030 (1.005-1.025); Urine Blood Negative (Negative); Urine Ketones Negative (Negative); Urine Protein Negative (Neg-Trace)
[2022-01-24 16:29] LABS: Anion Gap 15 (12-20); Blood Urea Nitrogen 17 mg/dL (9-16); Calcium 9.2 mg/dL (8.4-10.2); Carbon Dioxide 26 mmol/L (22-29); Chloride 103 mmol/L (96-108); Creatinine Clr Calc Pharmacy 62.1; Estimated Glomerular Filt Rate > 60; Glucose Random 134 mg/dL (60-115); Potassium 4.1 mmol/L (3.3-5.1); Sodium 140 mmol/L (135-145)
[2022-01-24 16:31] LABS: Bacteria Urine None Seen (None Seen); Hyaline Casts Urine 0-2 /LPF (0-2); RBC Urine 0-2 /HPF (0-2); Squamous Epithelial Cell Urine 0-2 /HPF (0-2); UACC Culture Trigger YES
[2022-01-24] MEDS: 0.9 % Sodium Chloride 1,000 ML 999 ML IV (17:04)
--- NOTE | 2022-01-24 17:09 | PC.NURSE ---
Patient on TPN doesn't eat often can manage saliva and swallow.
[2022-01-24 17:29] LABS: Alanine Aminotransferase 14 U/L (0-31); Albumin Level 4.6 g/dL (3.5-5.0); Alkaline Phosphatase 55 U/L (39-117); Aspartate Amino Transferase 19 U/L (5-31); Bilirubin Direct < 0.2 mg/dL (0.0-0.5); Bilirubin Total 0.4 mg/dL (0.0-1.0); Lipase 9 U/L (8-78)
--- NOTE | 2022-01-24 17:32 | ED.GENADULT ---
HPI - General Adult General Chief complaint: Weakness Stated complaint: body ache, vomiting Time Seen by Provider: 01/24/22 16:56 Source: patient Mode of arrival: ambulatory Limitations: no limitations History of Present Illness HPI narrative: 41 year old female with history of Crohn's disease, Bechet's disease, history of multiple abdominal surgeries in the past (last was 4 years ago at [facility] per her report), history of chronic abdominal pain on chronic opiates and TPN at home via port, history of gastroparesis, pyloric stenosis s/p dilatation, s/p PEG (has since been removed)presents to the emergency department Not feeling well patient reports that she has been having severe abdominal pain for few weeks, nausea, vomiting, neck pain, pain to her spine, night sweats. Patient tells me that these symptoms have all been going on for about 2-3 weeks, she notes that they have not been getting any better. She reports that this has happened to her in the past and usually goes away however she feels like it is not going away this time. She tells me that the main reason she is here is she just does not feel right. She is unable to tell me what is bothering her most. She denies fevers, chills, chest pain, shortness of breath, recent sick contacts, headache, vision changes, dizziness, hematemisis, diarrhea. To note at home she is prescribed IV Zofran, IV Benadryl, and oral hydromorphone 4 mg 3 times daily.? Reports minimal PO intake at times drinks water. TPN is main source of nutrition. Patient also reported increased bruising to nursing throughout her body, she tells me this has been going on for a while, nothing new. Denies trauma. Related Data Home Medications Medication Instructions Recorded Confirmed tizanidine 4 mg tablet 4 mg PO BEDTIME 04/02/20 11/19/21 apixaban 5 mg tablet (Eliquis) 5 mg PO BID 09/22/20 11/19/21 albuterol sulfate 90 mcg/actuation 2 puff inhalation Q4H PRN Wheezing 12/12/20 11/19/21 aerosol inhaler fluticasone furoate 200 1 inh inhalation Q24H 12/12/20 11/19/21 mcg-vilanterol 25 mcg/dose inhalation powder (Breo Ellipta) umeclidinium 62.5 mcg/actuation 1 inh inhalation DAILY 12/12/20 11/19/21 blister powder for inhalation (Incruse Ellipta) acetaminophen 325 mg tablet 650 mg PO Q4H PRN Pain 03/12/21 11/19/21 diphenhydramine HCl 50 mg/mL 25 mg IV QID PRN Nausea 03/12/21 11/19/21 injection solution ondansetron HCl (PF) 4 mg/2 mL 4 mg IV QID PRN Nausea 03/12/21 11/19/21 injection solution levetiracetam 100 mg/mL oral 700 mg PO BID 08/18/21 11/19/21 solution (Keppra) prednisone 10 mg tablet 30 mg PO DAILY 08/18/21 11/19/21 promethazine 25 mg tablet 25 mg PO QID PRN Nausea And 08/18/21 11/19/21 Vomiting Previous Rx's Medication Instructions Recorded dexamethasone 6 mg tablet 6 mg PO DAILY #7 tabs 08/20/21 hydromorphone 4 mg tablet 4 mg PO TID PRN severe pain (scale 01/13/22 score 7-10) 30 days #90 tabs Allergies Allergy/AdvReac Type Severity Reaction Status Date / Time ciprofloxacin [Cipro] Allergy Unknown unknown Verified 01/13/22 09:42 levofloxacin [Levaquin] Allergy Unknown unknown Verified 01/13/22 09:42 metoclopramide [Reglan] Allergy Unknown unknown Verified 01/13/22 09:42 ondansetron [Zofran] Allergy Unknown unknown Verified 01/13/22 09:42 penicillin V Allergy Unknown unknown Verified 01/13/22 09:42 prochlorperazine Allergy Unknown unknown Verified 01/13/22 09:42 [From Compazine] Sulfa (Sulfonamide Allergy Unknown unknown Verified 01/13/22 09:42 Antibiotics) thalidomide [From Thalomid] Allergy Unknown unknown Verified 01/13/22 09:42 Review of Systems Review of Systems: Constitutional : No Weight loss, No Fever, No Chills, + Fatigue, + Malaise ENT/Mouth : No sore throat, No Rhinorrhea Eyes: No Eye Pain, No Swelling, No Redness Cardiovascular : No Chest Pain, No SOB, No Dyspnea on Exertion, No Orthopnea, No Edema, No Palpitations Respiratory : No Cough, No Sputum, No Wheezing Gastrointestinal : + Nausea, + Vomiting, No Diarrhea, No Constipation, + abdominal Pain, No Hematochezia, No Melena Genitourinary : No Dysuria, No Urinary Frequency, No Hematuria, Musculoskeletal : + joint pain, No Myalgias, No Joint Swelling Skin : No Skin Lesions, No rash Neuro : No Weakness, No Numbness, No Dizziness, No Headache Psych : No Anxiety/Panic, No Depression All other systems reviewed and are negative Yes all other systems are reviewed and are negative [facility] Past Medical History Attestation statement: The following information was validated with the patient. Source: old records reviewed and nursing notes reviewed Medical History Abdominal pain Abdominal pain, chronic, generalized Absence seizure disorder Asthma Behcet's disease Cervicalgia Chronic pain syndrome Common variable immunodeficiency Crohn's disease DVT (deep venous thrombosis) Gastroparesis Low back pain Pyloric stenosis Spondylolisthesis, lumbar region Spondylosis of lumbar region without myelopathy or radiculopathy Spontaneous pneumothorax Surgical History History of hernia surgery Family History Family History Father Hairy cell leukemia Social History Social History Household Members: Children Household Members Other:: son Housing: Apartment Do you presently have visiting nurse or other home services: Yes Alcohol intake: never Patient Tobacco Use Status: Never used Tobacco Advance Directives: Yes Advance Directives on File: Yes Advance Directives Date on File: 03/12/21 service: No Current occupational status: unemployed Physical Exam ED Vital Signs: Vital Signs - 24 hr 01/24/22 15:21 01/24/22 18:57 01/24/22 21:14 Temperature 96.2 F L 98.7 F 98.2 F Pulse Rate 81 67 80 Respiratory Rate 16 18 18 Blood Pressure 148/63 H 108/67 118/68 Pulse Oximetry 100 99 96 Oxygen Delivery Method Room Air Room Air Room Air 01/25/22 00:13 Temperature 98.2 F Pulse Rate 86 Respiratory Rate 16 Blood Pressure 144/73 H Pulse Oximetry 98 Oxygen Delivery Method Room Air BMI result Body Mass Index 26.0 vss Appearance: Alert.? Oriented X3.? No acute distress.? Head: Normocephalic, atraumatic, no step-offs or deformities Eyes: Pupils equal, round and reactive to light.? ENT: Pharynx normal.? Neck: Normal inspection.? Neck supple.? No meningeal signs on exam. CVS: Normal heart rate and rhythm.? Pulses normal.? Respiratory: No respiratory distress.? Breath sounds normal.? Abdomen: Soft and + diffusely tender.? Skin: Skin warm and dry.? Normal skin color.? Normal skin turgor.? Extremities: No lower extremity edema.? No calf ttp. 5/5 strength to bilateral upper and lower extremities Neuro: Oriented X 3.? No motor deficit.? No sensory deficit. CN 2-12 intact Course Reevaluation(s) Reevaluation #1: CBC within normal limits, chemistry with no acute findings. Normal ESR & CRP. Time: 18:00 Reevaluation #2: CT of the abdomen pelvis with no aute findings. Patient complaing of nausea & vomiting. Time: 20:10 Reevaluation #3: Patient now tells me that her abdomen hurts, still feeling nauseous and feels like she has to vomit, telling me that she is having neck pain that radiates down her spine, patient does not have a white blood cell count, inflammatory markers are within normal limits, I do not suspect epidural abscess on this patient. Patient denies headache, dizziness and vision changes no meningeal signs unlikely meningitis and encephalitis. Time: 00:51 Additional Reevaluation(s): I suspect patient can go home if pain improves with 2nd dose of Dilaudid. Sign out to Dr. Peace. Medical Decision Making [facility] Narrative Medical decision making narrative: [id number] 41 year old female presents w/ fatigue, malaise, nusea, vomiting and severe abdominal pain X2-3 weeks PE w/ diffuse abd tenderness Plan- labs,urine, ESR, CRP, abd CT. Medical Records Medical records reviewed: Yes I reviewed the patient's medical records. Lab Data Lab results reviewed: Yes I reviewed the patient's lab results. Result diagrams: 01/24/22 15:58 01/24/22 15:58 Labs: Lab Results 01/24/22 01/24/22 01/24/22 Range/Units 15:58 15:58 15:58 WBC 5.4 (4.8-10.8) X10*3/uL RBC 4.34 (4.20-5.50) X10*6/uL Hgb 12.9 (12.0-16.0) g/dl Hct 38.3 (37.0-47.0) % MCV 88.2 (80.0-98.0) fL MCH 29.7 (27.0-33.0) pg MCHC 33.7 (31.0-35.0) g/dl RDW 12.6 (11.0-16.0) % Plt Count 240 D (160-400) X10*3/uL MPV 10.3 (9.4-12.3) fL Immature Gran % (Auto) 0.2 (0.0-0.4) % Neut % (Auto) 63.2 (45-73) % Lymph % (Auto) 25.7 (20-40) % [place] % (Auto) 8.5 (2-11) % Eos % (Auto) 1.7 (0-4) % Baso % (Auto) 0.7 (0-2) % Lymph # (Auto) 1.4 (1.2-4.9) X10*3/uL [place] # (Auto) 0.5 (0.1-1.2) X10*3/uL Eos # (Auto) 0.1 (0.0-0.4) X10*3/uL Baso # (Auto) 0.0 (0.0-0.2) X10*3/uL Abs Immat Gran (auto) 0.01 (0.00-0.03) X10*3/uL Absolute Neuts (auto) 3.4 (2.0-8.3) x10*3/uL Absolute Nucleated RBC 0.000 (0.0-0.012) X10*3/uL Nucleated RBC % (auto) 0.0 (0.0-0.2) /100WBC ESR (0-20) MM/HR PT (10.0-13.1) SEC INR (0.9-1.1) Sodium 140 (135-145) mmol/L Potassium 4.1 (3.3-5.1) mmol/L Chloride 103 (96-108) mmol/L Carbon Dioxide 26 (22-29) mmol/L Anion Gap 15 (12-20) BUN 17 H (9-16) mg/dL Creatinine 0.91 (0.5-1.4) mg/dL Estim Creat Clear Calc 62.1 Estimated GFR > 60 Random Glucose 134 H (60-115) mg/dL Calcium 9.2 (8.4-10.2) mg/dL Total Bilirubin 0.4 (0.0-1.0) mg/dL Direct Bilirubin < 0.2 (0.0-0.5) mg/dL AST 19 D (5-31) U/L ALT 14 (0-31) U/L Alkaline Phosphatase 55 (39-117) U/L C-Reactive Protein 0.25 (< or = 0.50) mg/dL Total Protein 7.0 (6.5-8.0) g/dL Albumin 4.6 (3.5-5.0) g/dL Lipase 9 (8-78) U/L Urine Color Urine Appearance Urine pH (5.0-9.0) Ur Specific [place] (1.005-1.025) Urine Protein (Neg-Trace) mg/dL Urine Glucose (UA) (Negative) mg/dL Urine Ketones (Negative) mg/dL Urine Blood (Negative) Urine Nitrite (Negative) Ur Leukocyte Esterase (Negative) Urine RBC (0-2) /HPF Urine WBC (0-5) /HPF Ur Squamous Epith Cells (0-2) /HPF Urine Bacteria (None Seen) Hyaline Casts (0-2) /LPF COVID-19 (CHANA) Negative (Negative) COVID-19 Clin Com See Note 01/24/22 01/24/22 01/24/22 Range/Units 15:58 16:18 17:51 WBC (4.8-10.8) X10*3/uL RBC (4.20-5.50) X10*6/uL Hgb (12.0-16.0) g/dl Hct (37.0-47.0) % MCV (80.0-98.0) fL MCH (27.0-33.0) pg MCHC (31.0-35.0) g/dl RDW (11.0-16.0) % Plt Count (160-400) X10*3/uL MPV (9.4-12.3) fL Immature Gran % (Auto) (0.0-0.4) % Neut % (Auto) (45-73) % Lymph % (Auto) (20-40) % [place] % (Auto) (2-11) % Eos % (Auto) (0-4) % Baso % (Auto) (0-2) % Lymph # (Auto) (1.2-4.9) X10*3/uL [place] # (Auto) (0.1-1.2) X10*3/uL Eos # (Auto) (0.0-0.4) X10*3/uL Baso # (Auto) (0.0-0.2) X10*3/uL Abs Immat Gran (auto) (0.00-0.03) X10*3/uL Absolute Neuts (auto) (2.0-8.3) x10*3/uL Absolute Nucleated RBC (0.0-0.012) X10*3/uL Nucleated RBC % (auto) (0.0-0.2) /100WBC ESR 4 (0-20) MM/HR PT 11.7 (10.0-13.1) SEC INR 1.0 (0.9-1.1) Sodium (135-145) mmol/L Potassium (3.3-5.1) mmol/L Chloride (96-108) mmol/L Carbon Dioxide (22-29) mmol/L Anion Gap (12-20) BUN (9-16) mg/dL Creatinine (0.5-1.4) mg/dL Estim Creat Clear Calc Estimated GFR Random Glucose (60-115) mg/dL Calcium (8.4-10.2) mg/dL Total Bilirubin (0.0-1.0) mg/dL Direct Bilirubin (0.0-0.5) mg/dL AST (5-31) U/L ALT (0-31) U/L Alkaline Phosphatase (39-117) U/L C-Reactive Protein (< or = 0.50) mg/dL Total Protein (6.5-8.0) g/dL Albumin (3.5-5.0) g/dL Lipase (8-78) U/L Urine Color Yellow Urine Appearance Clear Urine pH 5.5 (5.0-9.0) Ur Specific [place] >= 1.030 H (1.005-1.025) Urine Protein Negative (Neg-Trace) mg/dL Urine Glucose (UA) Negative (Negative) mg/dL Urine Ketones Negative (Negative) mg/dL Urine Blood Negative (Negative) Urine Nitrite Negative (Negative) Ur Leukocyte Esterase Small (1+) H (Negative) Urine RBC 0-2 (0-2) /HPF Urine WBC 11-20 H (0-5) /HPF Ur Squamous Epith Cells 0-2 (0-2) /HPF Urine Bacteria None Seen (None Seen) Hyaline Casts 0-2 (0-2) /LPF COVID-19 (CHANA) (Negative) COVID-19 Clin Com Critical Care Time Critical Care Time Critical Care Time: No Discharge Plan Discharge Clinical Impression: Nausea & vomiting, Abdominal pain, Neck pain Patient Disposition: Still a Patient Instructions: Acute Nausea and Vomiting (ED), Abdominal Pain (ED), Acute Neck Pain (ED) Additional Instructions: Take your medications as prescribed. If you were prescribed antibiotics today, it is important that you take your medication to their entirety, do not skip any doses, do not finish them early. Follow-up with your primary care provider this week. Return to the emergency department with new or worsening symptoms. Such as fevers, chills, chest pain, shortness of breath, nausea, vomiting, dizziness, headache, vision changes, lethargy In case of emergency call 911 Prescriptions: No Action albuterol sulfate 90 mcg/actuation Hfa Aerosol Inhaler 2 puff INHALATION Q4H PRN (Reason: Wheezing) Incruse Ellipta 62.5 mcg/actuation Blister With Device 1 inh INHALATION DAILY Breo Ellipta 200-25 mcg/dose Blister With Device 1 inh INHALATION Q24H diphenhydramine HCl 50 mg/mL solution 25 mg IV QID PRN (Reason: Nausea) ondansetron HCl (PF) 4 mg/2 mL solution 4 mg IV QID PRN (Reason: Nausea) acetaminophen 325 mg Tablet 650 mg PO Q4H PRN (Reason: Pain) prednisone 10 mg Tablet 30 mg PO DAILY Hold Instructions: Resume on 08/28/21. hold until finished with dexamethasone promethazine 25 mg Tablet 25 mg PO QID PRN (Reason: Nausea And Vomiting) levetiracetam [Keppra] 100 mg/mL Solution 700 mg PO BID dexamethasone 6 mg Tablet 6 mg PO DAILY Qty: 7 0RF tizanidine 4 mg tablet 4 mg PO BEDTIME Eliquis 5 mg tablet 5 mg PO BID hydromorphone 4 mg tablet 4 mg PO TID PRN (Reason: severe pain (scale score 7-10)) 30 Days Qty: 90 0RF Referrals: Amelie Banks NP [Primary Care Provider] - 2 days
[2022-01-24 18:05] LABS: Prothrombin Time 11.7 SEC (10.0-13.1)
[2022-01-24 18:57] VITALS: BP 108/67; PULSE 67; RESP 18; TEMP 37.1; O2SAT 99
[2022-01-24 19:27] LABS: C Reactive Protein 0.25 mg/dL (< or = 0.50)
[2022-01-24] MEDS: Morphine Sulfate 4 MG/ML CARTRIDGE IVPUSH ×2 (19:34→22:45)
[2022-01-24 20:11] LABS: Erythrocyte Sedimentation Rate 4 MM/HR (0-20)
[2022-01-24 21:14] VITALS: BP 118/68; PULSE 80; RESP 18; TEMP 36.8; O2SAT 96
[2022-01-24] MEDS: Pyridoxine HCl (Vitamin B6) 50 MG TABLET 25 MG PO (22:16)
[2022-01-24] MEDS: ondansetron HCL 4 MG/2 ML VIAL IVPUSH (23:47)
[2022-01-24] MEDS: diphenhydrAMINE HCL 50 MG/ML VIAL 25 MG IVPUSH (23:47)
[2022-01-25 00:13] VITALS: BP 144/73; PULSE 86; RESP 16; TEMP 36.8; O2SAT 98
[2022-01-25] MEDS: HYDROmorphone HCl 0.5 MG/0.5 ML SYRINGE IVPUSH ×2 (01:00→02:07)
[2022-01-25] MEDS: Phenazopyridine HCL 100 MG TABLET PO (03:16)
[2022-01-25] MEDS: Nitrofurantoin Monohyd/M-Cryst 100 MG CAPSULE PO (03:16)
== END 2022-01-25 03:46 | disposition home or self-care (01) ==
PROVIDERS: Physician Assistant; Emergency Provider Internal Medicine; PCP Registered Nurse
DX: M79.10 Myalgia, unspecified site (principal); R10.9 Unspecified abdominal pain; M54.2 Cervicalgia; R11.2 Nausea with vomiting, unspecified; Z20.822 Contact with and (suspected) exposure to COVID-19; Z79.899 Other long term (current) drug therapy
CPT/HCPCS: 36415; 74176; 80048; 80076; 81001; 83690; 85025; 85610; 85652; 86140; 87086; 87635; 99284; J1170; J1200; J2270; J2405

== ENCOUNTER → 2022-02-10 09:23 | Outpatient (BNVA) | payer MEDICARE, MEDICAID, SELFPAY | PROVIDERS: PCP Registered Nurse; Visit Provider Anesthesiology | DX: M35.2 Behcet's disease (principal); K50.918 Crohn's disease, unspecified, with other complication; G89.4 Chronic pain syndrome; M54.2 Cervicalgia; M54.50 Low back pain, unspecified; Z79.891 Long term (current) use of opiate analgesic | CPT/HCPCS: 99212 ==

== ENCOUNTER 2022-02-23 05:57 | Outpatient (REF) | payer MEDICARE, MEDICAID, SELFPAY ==
--- NOTE | ~2022-02-23 | FL_ITS ---
EXAMINATION: XR FLUOROSCOPY WITH IMAGES CLINICAL INFORMATION: G89.29 - Other chronic pain COMPARISON: CT abdomen and pelvis noncontrast 01/24/2022 TECHNIQUE: Fluoroscopy performed by Dr. Manny Pedroza. Fluoroscopy time: 0.1 minutes. Cumulative Dose: 2.06 mGy. DAP: 0.563 Gy-cm2. Images: 2. FINDINGS: There is an interlaminar spinal needle at level L2-L3. There is a translumbar central venous catheter again noted similar to the CT. FL/FL guidance in treatment room IMPRESSION: Fluoroscopy for pain management procedure.
== END 2022-02-23 05:58 | disposition home or self-care (01) ==
LOC: CF 05:57
PROVIDERS: Visit Provider Anesthesiology
DX: F11.90 Opioid use, unspecified, uncomplicated (principal); G89.29 Other chronic pain; S20.229A Contusion of unspecified back wall of thorax, initial encounter; D84.9 Immunodeficiency, unspecified; R10.30 Lower abdominal pain, unspecified
CPT/HCPCS: 62323; J1170; Q9965

== ENCOUNTER → 2022-03-03 08:08 | Outpatient (BNVA) | payer MEDICARE, MEDICAID, SELFPAY | PROVIDERS: PCP Registered Nurse; Visit Provider Anesthesiology | DX: M35.2 Behcet's disease (principal); K50.918 Crohn's disease, unspecified, with other complication; F11.90 Opioid use, unspecified, uncomplicated; R10.9 Unspecified abdominal pain; G89.29 Other chronic pain | CPT/HCPCS: Q3014 ==

== ENCOUNTER → 2022-03-17 13:11 | Outpatient (BNVA) | payer MEDICARE, MEDICAID, SELFPAY | PROVIDERS: PCP Registered Nurse; Visit Provider Anesthesiology | DX: Z51.81 Encounter for therapeutic drug level monitoring (principal); F11.20 Opioid dependence, uncomplicated; M54.50 Low back pain, unspecified; M35.2 Behcet's disease; G89.4 Chronic pain syndrome; R10.9 Unspecified abdominal pain; G89.29 Other chronic pain | CPT/HCPCS: 99212 ==

== ENCOUNTER → 2022-04-14 11:24 | Outpatient (BNVA) | payer MEDICARE, MEDICAID, SELFPAY | PROVIDERS: PCP Registered Nurse; Visit Provider Anesthesiology | DX: Z79.891 Long term (current) use of opiate analgesic (principal) | CPT/HCPCS: 99211 ==

== ENCOUNTER 2022-05-10 17:17 | Emergency (ER) | payer OTHER, MEDICARE, MEDICAID, SELFPAY ==
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
[2022-05-10 17:30] VITALS: BP 138/79; PULSE 89; RESP 16; TEMP 36.8; O2SAT 97; BMI 29.2
== END 2022-05-10 18:27 | disposition home or self-care (01) ==
PROVIDERS: Emergency Provider Emergency Medicine; PCP Registered Nurse
DX: S93.402A Sprain of unspecified ligament of left ankle, initial encounter (principal); V43.52XA Car driver injured in collision with other type car in traffic accident, initial encounter; Y93.9 Activity, unspecified; Y92.410 Unspecified street and highway as the place of occurrence of the external cause; Y99.9 Unspecified external cause status; Z79.899 Other long term (current) drug therapy; Z86.718 Personal history of other venous thrombosis and embolism; Z79.01 Long term (current) use of anticoagulants
CPT/HCPCS: 29515; 73590; 73600; 73630; 99283

== ENCOUNTER → 2022-05-13 08:57 | Outpatient (BNVA) | payer MEDICARE, MEDICAID, SELFPAY | PROVIDERS: PCP Registered Nurse; Visit Provider Anesthesiology | DX: Z51.81 Encounter for therapeutic drug level monitoring (principal); Z79.899 Other long term (current) drug therapy | CPT/HCPCS: 99211 ==

== ENCOUNTER 2022-05-20 16:44 | Outpatient (REF) | payer OTHER, SELFPAY ==
--- NOTE | ~2022-05-20 | XR_ITS ---
EXAMINATION: XR CERVICAL SPINE CLINICAL INFORMATION: G89.4 - Chronic pain syndrome COMPARISON: Chest radiographs 08/17/2021, 12/12/2020 TECHNIQUE: The cervical spine is imaged in 7 views: AP, lateral, odontoid x2, Fuchs, and bilateral oblique. FINDINGS: Normal cervical lordosis. Vertebral bodies are normal in height. There is no cervical vertebral compression, spondylolisthesis, disc narrowing, or erosive changes. No destructive process or prevertebral soft tissue swelling. The odontoid appears intact. The oblique view show no osseous narrowing of the neural foramina. There is chronic pleural thickening left apex similar to prior studies. XR/XR cervical spine 5V IMPRESSION: 1. Unremarkable cervical spine. 2. Chronic pleural thickening left apex similar to prior studies.
== END 2022-05-20 16:45 | disposition home or self-care (01) ==
LOC: HO.XRAY 16:44
PROVIDERS: PCP Registered Nurse; Visit Provider Anesthesiology
DX: M54.2 Cervicalgia (principal); G89.4 Chronic pain syndrome
CPT/HCPCS: 72050

== ENCOUNTER → 2022-06-03 11:10 | Outpatient (BNVA) | payer OTHER, SELFPAY | PROVIDERS: PCP Registered Nurse; Visit Provider Anesthesiology | DX: Z13.89 Encounter for screening for other disorder (principal) ==

== ENCOUNTER 2022-06-15 20:53 | Emergency (ER) | payer MEDICARE, MEDICAID, SELFPAY ==
--- NOTE | ~2022-06-15 | CT_ITS ---
EXAMINATION: CT ABDOMEN AND PELVIS WITHOUT CONTRAST CLINICAL INFORMATION: Gastroparesis with increased pain, question ileus COMPARISON: 01/24/2022 TECHNIQUE: Multidetector volumetric imaging was performed from the superior aspect of the liver through the pubic symphysis. Sagittal and coronal reformatted images were obtained on the technologist's workstation. This CT examination was performed using dose optimization techniques as appropriate, variously including the following: *Automated exposure control *Adjustment of mA and/or kV according to patient size (this includes techniques or standardized protocols for targeted exams where dose is matched to indication/reason for exam; i.e. extremities or head) *Use of iterative reconstruction technique DLP: 128 mGy-cm FINDINGS: LUNG BASES: Mild atelectasis/scarring noted along with pleural thickening. LIVER, GALLBLADDER, AND BILIARY TREE: The liver is normal in size, shape, and attenuation. No focal hepatic lesion or biliary ductal dilatation is identified. The gallbladder is unremarkable with no evidence of radiopaque gallstones, gallbladder wall thickening, or obvious pericholecystic inflammatory changes. PANCREAS: Unremarkable. SPLEEN: Unremarkable. ADRENAL GLANDS: Unremarkable. KIDNEYS AND URETERS: The kidneys are normal in size, shape, and attenuation. No hydronephrosis, hydroureter, or calculi seen. No perinephric stranding. BLADDER: Unremarkable. GASTROINTESTINAL TRACT: No evidence of bowel obstruction. Moderate stool is present in the colon. There is a short segment of wall thickening in the proximal descending colon which could be due to colitis. No significant distention of the stomach. Appendix is suspected to be collapsed. No free fluid or free air is seen. ABDOMINAL WALL: No significant hernia is appreciated. LYMPH NODES: Normal. VASCULAR: Right-sided translumbar catheter extends into the IVC. PELVIC VISCERA: Unremarkable. OSSEOUS STRUCTURES: There is degenerative change in the spine at L3-L4. CT/CT abdomen pelvis wo IV con IMPRESSION: Short segment of wall thickening in the proximal descending colon, which could be due to colitis. No significant bowel distention to suggest obstruction or ileus.
[2022-06-15 21:07] VITALS: BP 132/82; PULSE 114; RESP 18; TEMP 36.6; O2SAT 93; BMI 26.9
[2022-06-15 23:20] LABS: Basophils Absolute Auto 0.1 X10*3/uL (0.0-0.2); Basophils Percent Auto 0.5 % (0-2); Eosinophils Absolute Auto 0.2 X10*3/uL (0.0-0.4); Eosinophils Percent Auto 1.6 % (0-4); Hematocrit 42.8 % (37.0-47.0); Hemoglobin 14.2 g/dl (12.0-16.0); Imm Gran Abs Auto 0.02 X10*3/uL (0.00-0.03); Imm Gran Pct Auto 0.2 % (0.0-0.4); Lymphocytes Percent Auto 20.8 % (20-40); MANUAL DIFF FLAG NO; Mean Corpuscular HGB Conc 33.2 g/dl (31.0-35.0); Mean Corpuscular Hemoglobin 29.3 pg (27.0-33.0); Mean Corpuscular Volume 88.2 fL (80.0-98.0); Mean Platelet Volume 10.1 fL (9.4-12.3); Monocytes Absolute Auto 0.6 X10*3/uL (0.1-1.2); Monocytes Percent Auto 6.5 % (2-11); Neutrophils Absolute Auto 6.7 x10*3/uL (2.0-8.3); Neutrophils Percent Auto 70.4 % (45-73); Platelet Count 271 X10*3/uL (160-400); Red Blood Count 4.85 X10*6/uL (4.20-5.50); Red Cell Distribution Width 12.8 % (11.0-16.0); White Blood Count 9.5 X10*3/uL (4.8-10.8)
[2022-06-15 23:21] LABS: Appearance Urine Cloudy; Color Urine Yellow; Glucose Urine UA Negative (Negative); Leukocyte Esterase Urine Negative (Negative); Nitrite Urine Negative (Negative); PH 5.5 (5.0-9.0); Specific Gravity - Urine >= 1.030 (1.005-1.025); Urine Blood Negative (Negative); Urine Ketones Trace mg/dL (Negative); Urine Protein Negative (Neg-Trace)
[2022-06-15 23:25] LABS: UPreg QC Valid YES; Urine Pregnancy NEGATIVE (NEGATIVE)
[2022-06-16 00:48] VITALS: BP 114/53; PULSE 81; RESP 16; TEMP 36.6; O2SAT 97
--- NOTE | 2022-06-16 00:49 | ED_ITS ---
HPI - Abdominal Pain General Chief Complaint: Abdominal Pain Stated Complaint: Abdominal pain Time Seen by Provider: 06/16/22 00:48 Source: patient Mode of arrival: ambulatory Limitations: no limitations History of Present Illness HPI narrative: Patient history of gastroparesis with frequent hospitalization for increased abdominal pain comes here for 2 days of pain most in the right mid abdomen as a with nausea no vomiting no diarrhea no fever or chills no blood in the stool Related Data Home Medications Medication Instructions Recorded Confirmed albuterol sulfate 90 mcg/actuation 2 puff inhalation Q4H PRN Wheezing 12/12/20 06/03/22 aerosol inhaler fluticasone furoate 200 1 inh inhalation Q24H 12/12/20 06/03/22 mcg-vilanterol 25 mcg/dose inhalation powder (Breo Ellipta) umeclidinium 62.5 mcg/actuation 1 inh inhalation DAILY 12/12/20 06/03/22 blister powder for inhalation (Incruse Ellipta) acetaminophen 325 mg tablet 650 mg PO Q4H PRN Pain 03/12/21 06/03/22 diphenhydramine HCl 50 mg/mL 25 mg IV QID PRN Nausea 03/12/21 06/03/22 injection solution ondansetron HCl (PF) 4 mg/2 mL 4 mg IV QID PRN Nausea 03/12/21 06/03/22 injection solution levetiracetam 100 mg/mL oral 700 mg PO BID 08/18/21 06/03/22 solution (Keppra) promethazine 25 mg tablet 25 mg PO QID PRN Nausea And 08/18/21 06/03/22 Vomiting Previous Rx's Medication Instructions Recorded cyclobenzaprine 10 mg tablet 10 mg PO BEDTIME #14 tabs 05/15/22 hydromorphone 4 mg tablet 4 mg PO TID PRN severe pain (scale 06/09/22 score 7-10) 30 days #90 tabs Allergies Allergy/AdvReac Type Severity Reaction Status Date / Time ciprofloxacin [Cipro] Allergy Unknown unknown Verified 06/03/22 11:11 levofloxacin [Levaquin] Allergy Unknown unknown Verified 06/03/22 11:11 metoclopramide [Reglan] Allergy Unknown unknown Verified 06/03/22 11:11 ondansetron [Zofran] Allergy Unknown unknown Verified 06/03/22 11:11 penicillin V Allergy Unknown unknown Verified 06/03/22 11:11 prochlorperazine Allergy Unknown unknown Verified 06/03/22 11:11 [From Compazine] Sulfa (Sulfonamide Allergy Unknown unknown Verified 06/03/22 11:11 Antibiotics) thalidomide [From Thalomid] Allergy Unknown unknown Verified 06/03/22 11:11 Review of Systems Review of Systems Yes all other systems are reviewed and are negative [facility] Past Medical History Medical History Abdominal pain Abdominal pain, chronic, generalized Absence seizure disorder Asthma Behcet's disease Cervicalgia Chronic pain syndrome Common variable immunodeficiency Crohn's disease DVT (deep venous thrombosis) Gastroparesis Low back pain Pyloric stenosis Spondylolisthesis, lumbar region Spondylosis of lumbar region without myelopathy or radiculopathy Spontaneous pneumothorax Surgical History History of hernia surgery Family History Family History Father Hairy cell leukemia Social History Social History Household Members: Children Household Members Other:: son Housing: Apartment Do you presently have visiting nurse or other home services: Yes Alcohol intake: never Patient Tobacco Use Status: Never used Tobacco Smoked in Last 30 Days: No Use of substances other than those prescribed or required for medical reasons: No Advance Directives: Yes Advance Directives Information Provided: Yes Advance Directives on File: No Advance Directives Date on File: 03/12/21 Patient : No service: No Current occupational status: unemployed Physical Exam ED Vital Signs: Vital Signs - 24 hr 06/15/22 21:07 06/16/22 00:48 06/16/22 03:12 Temperature 97.8 F 97.9 F 98.1 F Pulse Rate 114 H 81 76 Respiratory Rate 18 16 18 Blood Pressure 132/82 114/53 L 115/61 Pulse Oximetry 93 97 98 Oxygen Delivery Method Room Air Room Air Room Air 06/16/22 04:23 Temperature 97.9 F Pulse Rate 67 Respiratory Rate 16 Blood Pressure 105/70 Pulse Oximetry 97 Oxygen Delivery Method Room Air BMI result Body Mass Index 26.9 Appearance: Alert. Oriented X3. No acute distress. Eyes: PERRLA, No Nystagmus ENT: Pharynx normal. Oral Mucosa moist Neck: Normal inspection. Neck supple. CVS: Normal heart rate and rhythm. Pulses normal. Respiratory: No respiratory distress. Equal air entry bilateral, no wheezing/rales/rhonchi Abdomen: Soft , diffuse med and right lower abdomen tenderness no rebound tenderness or guarding Bowel sounds are present, no mass palpable, no CVA tenderness Skin: Skin warm and dry. Normal skin color. Normal skin turgor. Extremities: No lower extremity edema. No calf tenderness Neuro: Oriented X 3. No motor deficit. Medical Decision Making Medical Decision Making [facility] Narrative: CT scan showed thickening of small segment of descending colon labs are stable likely inflammatory will discharge patient home advised to continue her pain medication and follow with PCP Lab Data [facility] Lab Attestation statement: I reviewed the patient's lab results. 06/15/22 23:14 06/15/22 23:14 Labs: Lab Results 06/15/22 06/15/22 06/15/22 Range/Units 23:14 23:14 23:14 WBC 9.5 (4.8-10.8) X10*3/uL RBC 4.85 (4.20-5.50) X10*6/uL Hgb 14.2 (12.0-16.0) g/dl Hct 42.8 (37.0-47.0) % MCV 88.2 (80.0-98.0) fL MCH 29.3 (27.0-33.0) pg MCHC 33.2 (31.0-35.0) g/dl RDW 12.8 (11.0-16.0) % Plt Count 271 (160-400) X10*3/uL MPV 10.1 (9.4-12.3) fL Immature Gran % (Auto) 0.2 (0.0-0.4) % Neut % (Auto) 70.4 (45-73) % Lymph % (Auto) 20.8 (20-40) % [place] % (Auto) 6.5 (2-11) % Eos % (Auto) 1.6 (0-4) % Baso % (Auto) 0.5 (0-2) % Lymph # (Auto) 2.0 (1.2-4.9) X10*3/uL [place] # (Auto) 0.6 (0.1-1.2) X10*3/uL Eos # (Auto) 0.2 (0.0-0.4) X10*3/uL Baso # (Auto) 0.1 (0.0-0.2) X10*3/uL Abs Immat Gran (auto) 0.02 (0.00-0.03) X10*3/uL Absolute Neuts (auto) 6.7 (2.0-8.3) x10*3/uL Absolute Nucleated RBC 0.000 (0.0-0.012) X10*3/uL Nucleated RBC % (auto) 0.0 (0.0-0.2) /100WBC Sodium (135-145) mmol/L Potassium (3.3-5.1) mmol/L Chloride (96-108) mmol/L Carbon Dioxide (22-29) mmol/L Anion Gap (12-20) BUN (9-16) mg/dL Creatinine (0.5-1.4) mg/dL Estim Creat Clear Calc Estimated GFR Random Glucose (60-115) mg/dL Calcium (8.4-10.2) mg/dL Lipase (8-78) U/L Urine Color Yellow Urine Appearance Cloudy Urine pH 5.5 (5.0-9.0) Ur Specific [place] >= 1.030 H (1.005-1.025) Urine Protein Negative (Neg-Trace) mg/dL Urine Glucose (UA) Negative (Negative) mg/dL Urine Ketones Trace (Negative) mg/dL Urine Blood Negative (Negative) Urine Nitrite Negative (Negative) Ur Leukocyte Esterase Negative (Negative) Urine Test NEGATIVE (NEGATIVE) 06/16/22 Range/Units 01:06 WBC (4.8-10.8) X10*3/uL RBC (4.20-5.50) X10*6/uL Hgb (12.0-16.0) g/dl Hct (37.0-47.0) % MCV (80.0-98.0) fL MCH (27.0-33.0) pg MCHC (31.0-35.0) g/dl RDW (11.0-16.0) % Plt Count (160-400) X10*3/uL MPV (9.4-12.3) fL Immature Gran % (Auto) (0.0-0.4) % Neut % (Auto) (45-73) % Lymph % (Auto) (20-40) % [place] % (Auto) (2-11) % Eos % (Auto) (0-4) % Baso % (Auto) (0-2) % Lymph # (Auto) (1.2-4.9) X10*3/uL [place] # (Auto) (0.1-1.2) X10*3/uL Eos # (Auto) (0.0-0.4) X10*3/uL Baso # (Auto) (0.0-0.2) X10*3/uL Abs Immat Gran (auto) (0.00-0.03) X10*3/uL Absolute Neuts (auto) (2.0-8.3) x10*3/uL Absolute Nucleated RBC (0.0-0.012) X10*3/uL Nucleated RBC % (auto) (0.0-0.2) /100WBC Sodium 141 (135-145) mmol/L Potassium 4.6 (3.3-5.1) mmol/L Chloride 105 (96-108) mmol/L Carbon Dioxide 25 (22-29) mmol/L Anion Gap 16 (12-20) BUN 15 (9-16) mg/dL Creatinine 0.76 (0.5-1.4) mg/dL Estim Creat Clear Calc 75.4 Estimated GFR > 60 Random Glucose 100 (60-115) mg/dL Calcium 9.2 (8.4-10.2) mg/dL Lipase 8 (8-78) U/L Urine Color Urine Appearance Urine pH (5.0-9.0) Ur Specific [place] (1.005-1.025) Urine Protein (Neg-Trace) mg/dL Urine Glucose (UA) (Negative) mg/dL Urine Ketones (Negative) mg/dL Urine Blood (Negative) Urine Nitrite (Negative) Ur Leukocyte Esterase (Negative) Urine Test (NEGATIVE) Medications Administered Discontinued Medications Generic Name Dose Route Start Last Admin Trade Name Freq PRN Reason Stop Dose Admin Diphenhydramine HCl 25 mg 06/16/22 02:22 06/16/22 02:27 Diphenhydramine Hcl 50 Mg/Ml Vial IVPUSH 06/16/22 02:23 25 mg ONCE ONE Administration Hydromorphone HCl 1 mg 06/16/22 01:06 06/16/22 02:17 Hydromorphone Hcl 1 Mg/Ml Syringe IVPUSH 06/16/22 01:07 1 mg ONCE ONE Administration Protocol Sodium Chloride 1,000 mls @ 999 mls/hr 06/16/22 01:06 06/16/22 02:18 Ns IV 06/16/22 02:06 999 mls/hr .Q1H1M ONE Administration Ondansetron HCl 4 mg 06/16/22 01:06 06/16/22 02:18 Ondansetron Hcl 4 Mg/2 Ml Vial IVPUSH 06/16/22 01:07 4 mg ONCE ONE Administration Discharge Plan Discharge Clinical Impression: Chronic abdominal pain, Gastroparesis Patient Disposition: Home, Self-Care Instructions: Abdominal Pain (ED), Gastroparesis (ED) Additional Instructions: Continue your pain medications drink plenty of fluids 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 Prescriptions: No Action hydromorphone 4 mg tablet 4 mg PO TID PRN (Reason: severe pain (scale score 7-10)) 30 Days Qty: 90 0RF Rx Instructions: Partial fill per patient's request only albuterol sulfate 90 mcg/actuation Hfa Aerosol Inhaler 2 puff INHALATION Q4H PRN (Reason: Wheezing) Incruse Ellipta 62.5 mcg/actuation Blister With Device 1 inh INHALATION DAILY Breo Ellipta 200-25 mcg/dose Blister With Device 1 inh INHALATION Q24H diphenhydramine HCl 50 mg/mL solution 25 mg IV QID PRN (Reason: Nausea) ondansetron HCl (PF) 4 mg/2 mL solution 4 mg IV QID PRN (Reason: Nausea) acetaminophen 325 mg Tablet 650 mg PO Q4H PRN (Reason: Pain) promethazine 25 mg Tablet 25 mg PO QID PRN (Reason: Nausea And Vomiting) levetiracetam [Keppra] 100 mg/mL Solution 700 mg PO BID cyclobenzaprine 10 mg tablet 10 mg PO BEDTIME Qty: 14 0RF
[2022-06-16 01:44] LABS: Anion Gap 16 (12-20); Blood Urea Nitrogen 15 mg/dL (9-16); Calcium 9.2 mg/dL (8.4-10.2); Carbon Dioxide 25 mmol/L (22-29); Chloride 105 mmol/L (96-108); Creatinine Clr Calc Pharmacy 75.4; Estimated Glomerular Filt Rate > 60; Glucose Random 100 mg/dL (60-115); Lipase 8 U/L (8-78); Potassium 4.6 mmol/L (3.3-5.1); Sodium 141 mmol/L (135-145)
[2022-06-16] MEDS: HYDROmorphone HCl 1 MG/ML SYRINGE IVPUSH (02:17)
[2022-06-16] MEDS: 0.9 % Sodium Chloride 1,000 ML 999 ML IV (02:18)
[2022-06-16] MEDS: ondansetron HCL 4 MG/2 ML VIAL IVPUSH (02:18)
[2022-06-16] MEDS: diphenhydrAMINE HCL 50 MG/ML VIAL 25 MG IVPUSH (02:27)
--- NOTE | 2022-06-16 02:33 | PC.NURSE ---
Pt a&o, no sob or chest pain, no sign of distress, assess port and medicated per Jul. Notified PILAR Martinez.
[2022-06-16 03:12] VITALS: BP 115/61; PULSE 76; RESP 18; TEMP 36.7; O2SAT 98
--- NOTE | 2022-06-16 03:12 | PC.NURSE ---
Pt HILL x 4 reports pain decreased from a 9 to a seven. Jose J brown is checking pt VS.
[2022-06-16 04:23] VITALS: BP 105/70; PULSE 67; RESP 16; TEMP 36.6; O2SAT 97
[2022-06-16 06:00] VITALS: BP 117/68; PULSE 80; RESP 16; O2SAT 95
--- NOTE | 2022-06-16 06:06 | PC.NURSE ---
PT HILL x 4 verbalizes understanding of discharge instructions.
== END 2022-06-16 06:10 | disposition home or self-care (01) ==
PROVIDERS: Emergency Provider Internal Medicine; PCP Registered Nurse
DX: G89.29 Other chronic pain (principal); R10.9 Unspecified abdominal pain; K31.84 Gastroparesis; K50.90 Crohn's disease, unspecified, without complications; Z79.899 Other long term (current) drug therapy; Z79.891 Long term (current) use of opiate analgesic
CPT/HCPCS: 36415; 74176; 80048; 81003; 81025; 83690; 85025; 96361; 96374; 96375; 99284; J1170; J1200; J2405

== ENCOUNTER 2022-06-16 12:40 | Outpatient (REF) | payer OTHER, SELFPAY ==
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
== END 2022-06-16 12:41 | disposition home or self-care (01) ==
LOC: HO.XRAY 12:40
PROVIDERS: PCP Registered Nurse; Visit Provider Registered Nurse
DX: M54.6 Pain in thoracic spine (principal); M54.50 Low back pain, unspecified; V89.2XXD Person injured in unspecified motor-vehicle accident, traffic, subsequent encounter
CPT/HCPCS: 72072; 72100

== ENCOUNTER → 2022-07-15 09:38 | Outpatient (BNVA) | payer OTHER, SELFPAY | PROVIDERS: PCP Registered Nurse; Visit Provider Anesthesiology | DX: Z13.89 Encounter for screening for other disorder (principal) ==

== ENCOUNTER → 2022-08-12 10:19 | Outpatient (BNVA) | payer OTHER, MEDICARE, MEDICAID, SELFPAY | PROVIDERS: PCP Registered Nurse; Visit Provider Anesthesiology | DX: Z13.89 Encounter for screening for other disorder (principal) ==

== ENCOUNTER 2022-08-25 10:00 | Outpatient (RCR) | payer OTHER, MEDICARE, MEDICAID, SELFPAY ==
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
--- NOTE | 2022-08-25 10:56 | MHC.PT.DC ---
[facility] [place] Office [place] Office [place] Office [address] Jean Arellano [address] [phone] F: [phone] F: [phone] F: [phone] F: [phone] Physical Therapy Discharge Report Diagnosis: low back and neck pain Date of Surgery: n/a Date of Evaluation: 08/03/22 Date of Discharge: 08/25/22 Treatments to Date: 6 Cancellations to Date: 2 No Shows to Date: Discharge Status: Recommend MD Follow-up Discharge Summary: 08/25/2022: Pt has unfortunately made no significant progress since start of PT. She is continuing to have very high pain levels which do not change with any interventions we have trialed thus far. We have tried a variety of different interventions each of which have been unsuccessful. At this point max benefits of PT have been provided and it is no longer appropriate to continue as she is not benefiting. Recommend following up with her doctors as they continue to explore next steps for her ongoing pain. Electronically signed by: Nancy West, PT, DPT, ATC Please sign and return to therapist. Thank you for your referral.
== END 2022-08-25 10:56 | disposition home or self-care (01) ==
LOC: HO.PTCHIC 10:00
PROVIDERS: PCP Registered Nurse; Visit Provider Anesthesiology
DX: M54.2 Cervicalgia (principal); M54.50 Low back pain, unspecified
CPT/HCPCS: 97110; 97162

== ENCOUNTER 2022-09-14 08:13 | Outpatient (REF) | payer OTHER, MEDICARE, MEDICAID, SELFPAY ==
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
== END 2022-09-14 08:14 | disposition home or self-care (01) ==
LOC: HO.MRI 08:13
PROVIDERS: PCP Registered Nurse; Visit Provider Anesthesiology
DX: M54.2 Cervicalgia (principal)
CPT/HCPCS: 72141

== ENCOUNTER → 2022-09-15 12:59 | Outpatient (BNVA) | payer OTHER, MEDICARE, MEDICAID, SELFPAY | PROVIDERS: PCP Registered Nurse; Visit Provider Anesthesiology | DX: Z13.89 Encounter for screening for other disorder (principal) ==

== ENCOUNTER → 2022-10-13 12:58 | Outpatient (BNVA) | payer OTHER, MEDICARE, MEDICAID, SELFPAY | PROVIDERS: PCP Registered Nurse; Visit Provider Anesthesiology ==

== ENCOUNTER → 2022-11-17 13:01 | Outpatient (BNVA) | payer OTHER, MEDICARE, MEDICAID, SELFPAY | PROVIDERS: PCP Registered Nurse; Visit Provider Anesthesiology ==

== ENCOUNTER → 2022-12-15 12:53 | Outpatient (BNVA) | payer OTHER, MEDICARE, MEDICAID, SELFPAY | PROVIDERS: PCP Registered Nurse; Visit Provider Anesthesiology ==

== ENCOUNTER 2023-01-04 06:05 | Outpatient (REF) | payer MEDICARE, MEDICAID, SELFPAY ==
--- NOTE | ~2023-01-04 | FL_ITS ---
EXAMINATION: XR FLUOROSCOPY WITH IMAGES CLINICAL INFORMATION: Chronic pain syndrome. COMPARISON: None available. TECHNIQUE: Fluoroscopy Supervised By: Dr. Manny Pedroza. Fluoroscopy Time: 0.4 minutes. Cumulative Dose: 5.31 mGy. DAP: 0.0699 mGy-m2. Images: 2. FINDINGS: Images demonstrate right interlaminar access to the lumbar spinal canal. FL/FL guidance in treatment room IMPRESSION: Fluoroscopic guidance for pain management procedure.
== END 2023-01-04 06:06 | disposition home or self-care (01) ==
LOC: CF 06:05
PROVIDERS: Visit Provider Anesthesiology
DX: G89.4 Chronic pain syndrome (principal); K50.90 Crohn's disease, unspecified, without complications; M96.1 Postlaminectomy syndrome, not elsewhere classified; M35.2 Behcet's disease; R10.30 Lower abdominal pain, unspecified; F11.90 Opioid use, unspecified, uncomplicated; D84.9 Immunodeficiency, unspecified; M54.50 Low back pain, unspecified
CPT/HCPCS: 62323

== ENCOUNTER 2023-01-04 14:10 | Outpatient (AMB) | payer MEDICARE, MEDICAID, SELFPAY ==
[2023-01-04 14:27] VITALS: BP 118/64; PULSE 56; RESP 18; O2SAT 96; BMI 28.3
--- NOTE | 2023-01-04 14:27 | MHC.OFFVIS ---
Intake Vital Signs 01/04/23 14:27 01/04/23 16:05 Height 4 ft 11 in 4 ft 11 in Weight 140 lb 140 lb BMI 28.3 28.3 BP 118/64 120/70 Blood Pressure Location Rt brachial Rt brachial Position Sitting Supine Respiration 18 16 Pulse 56 76 Pulse Source Pulse Oximeter Pulse Oximeter Pulse Oximetry (%) 96 95 Oxygen Delivery Method Room Air Room Air Comment pre-op Post-op Intake Visit Reasons: ITDD TRIAL WITH BUPIVICAIN/LOCAL Allergies ciprofloxacin [Cipro] Allergy (Unknown, Verified 01/06/23 10:19) unknown levofloxacin [Levaquin] Allergy (Unknown, Verified 01/06/23 10:19) unknown metoclopramide [Reglan] Allergy (Unknown, Verified 01/06/23 10:19) unknown ondansetron [Zofran] Allergy (Unknown, Verified 01/06/23 10:19) unknown penicillin V Allergy (Unknown, Verified 01/06/23 10:19) unknown prochlorperazine [From Compazine] Allergy (Unknown, Verified 01/06/23 10:19) unknown Sulfa (Sulfonamide Antibiotics) Allergy (Unknown, Verified 01/06/23 10:19) unknown thalidomide [From Thalomid] Allergy (Unknown, Verified 01/06/23 10:19) unknown [facility] Medical History Abdominal pain Abdominal pain, chronic, generalized Absence seizure disorder Asthma Behcet's disease Cervicalgia Chronic pain syndrome Common variable immunodeficiency Crohn's disease DVT (deep venous thrombosis) Gastroparesis Low back pain Pyloric stenosis Spondylolisthesis, lumbar region Spondylosis of lumbar region without myelopathy or radiculopathy Spontaneous pneumothorax Surgical History History of hernia surgery Family History Father Hairy cell leukemia Social History Household Members: Children Household Members Other:: son Housing: Apartment Do you presently have visiting nurse or other home services: Yes Alcohol intake: never Patient Tobacco Use Status: Never used Tobacco Advance Directives Date on File: 03/12/21 service: No Current occupational status: unemployed Physical Exam Vital Signs: Last Vital Signs Pulse 76 01/04/23 16:05 Resp 16 01/04/23 16:05 BP 120/70 01/04/23 16:05 Pulse Ox 95 01/04/23 16:05 Oxygen Delivery Method Room Air 01/04/23 16:05 BMI result Body Mass Index 28.3 Assessment & Plan Assessment & Plan (1) Chronic, continuous use of opioids: Code(s): F11.90 - Opioid use, unspecified, uncomplicated (2) Immunosuppression: Code(s): D84.9 - Immunodeficiency, unspecified (3) Chronic pain: Code(s): G89.29 - Other chronic pain Qualifiers: Chronic pain type: chronic pain syndrome Qualified Code(s): G89.4 - Chronic pain syndrome (4) Contusion, back: Code(s): S20.229A - Contusion of unspecified back wall of thorax, initial encounter (5) Crohn's disease: Code(s): K50.90 - Crohn's disease, unspecified, without complications (6) Behcet's disease: Code(s): M35.2 - Behcet's disease (7) Abdominal pain: Code(s): R10.9 - Unspecified abdominal pain Qualifiers: Abdominal location: lower abdomen, unspecified Qualified Code(s): R10.30 - Lower abdominal pain, unspecified Plan Intrathecal bupivacain pain pump trial Informed consent was explained to the patient. All questions were explained and answered.? The patient was taken inside of the operating room where she was positioned prone on the operating table.? Time-out was performed delineating patient's name and date of , correct site, side, the nature of the procedure, patient's allergy, preoperative antibiotic if needed.? All operating room staff And the patient were participating in OR time-out procedure. ?the patient's lower back was prepped with ChloraPrep and draped with sterile? utility draped.? Sterilely draped C-arm was brought over the operating field and sq picture of? lumbar vertebrae were delineated on the screen. the target of needle insertion was chosen between L2 and L3 vertebrae. The projection of the right lamina of the L2 vertebra was chosen as the starting point of the injection.? 22 gauge 3-1/2 inch needle was inserted through the skin after skin wheal was raised with lidocaine 2%.? The needle was directed to the interlaminar space.? The advancement of the needle was performed on intermittent anterior posterior and lateral views.? On anterior posterior view needle was kept strictly in the midline.? On the lateral view needle entered in the projection of the center of the spinal canal.? At that moment the stylet was removed from the needle and clear flow CSF was detected in the needle hub.? After that? 0.8 mL of the solution containing 2mg of bupivacain was injected into the needle.? After that needle was removed sterile dressing was applied.? Patient tolerated procedure well.? She was taken outside of the operating room to the recovery room where she recovered uneventfully.? Coding Level of Care Code Procedure Only Diagnoses Chronic, continuous use of opioids F11.90 Immunosuppression D84.9 Chronic pain G89.4 Chronic pain type: chronic pain syndrome Contusion, back S20.229A Crohn's disease K50.90 Behcet's disease M35.2 Abdominal pain R10.30 Abdominal location: lower abdomen, unspecified
[2023-01-04 16:05] VITALS: BP 120/70; PULSE 76; RESP 16; O2SAT 95; BMI 28.3
== END 2023-01-04 15:36 | disposition home or self-care (01) ==
PROVIDERS: PCP Registered Nurse; Visit Provider Anesthesiology
DX: G89.4 Chronic pain syndrome (principal); S20.229A Contusion of unspecified back wall of thorax, initial encounter; D84.9 Immunodeficiency, unspecified; Z79.891 Long term (current) use of opiate analgesic; K50.90 Crohn's disease, unspecified, without complications; M35.2 Behcet's disease; R10.30 Lower abdominal pain, unspecified
CPT/HCPCS: 62323

== ENCOUNTER 2023-01-06 10:10 | Outpatient (AMB) | payer MEDICARE, MEDICAID, SELFPAY ==
--- NOTE | 2023-01-06 10:14 | A.OFFVIS_ITS ---
Intake Vital Signs 01/06/23 10:20 Height 4 ft 11 in Weight 137 lb BMI 27.7 BP 118/60 Blood Pressure Location Rt brachial Position Sitting Respiration 16 Pulse 73 Pulse Source Pulse Oximeter Pulse Oximetry (%) 96 Oxygen Delivery Method Room Air Intake Visit Reasons: ITDD TRIAL WITH BUPIVICAIN 01/04/23 Intake Note: patient comes in for pain pump trial. Allergies ciprofloxacin [Cipro] Allergy (Unknown, Verified 01/06/23 10:19) unknown levofloxacin [Levaquin] Allergy (Unknown, Verified 01/06/23 10:19) unknown metoclopramide [Reglan] Allergy (Unknown, Verified 01/06/23 10:19) unknown ondansetron [Zofran] Allergy (Unknown, Verified 01/06/23 10:19) unknown penicillin V Allergy (Unknown, Verified 01/06/23 10:19) unknown prochlorperazine [From Compazine] Allergy (Unknown, Verified 01/06/23 10:19) unknown Sulfa (Sulfonamide Antibiotics) Allergy (Unknown, Verified 01/06/23 10:19) unknown thalidomide [From Thalomid] Allergy (Unknown, Verified 01/06/23 10:19) unknown HPI HPI Comments History of Present Illness Details Brooklyn in the office today for the follow-up after the trial of the intrathecal pain pump bupivacaine during which she received 2 mg of bupivacaine injected intrathecally. She reports that 2 hours after the procedure she had her pain 4/10. 4 hours after the procedure she had her pain 3 to 4/10. 6 hours after the procedure she continued to in joint pain reduction to 3 to 4/10. 8 hours after the procedure she continued to in joint pain reduction to 3 to 4/10. She went to bed at that time and she woke up in the morning when her pain went all the way back. Her regular pain is with very significant doses of the opioid medications on regular basis is ranging between 8 and 9/10. Therefore she reports more than 50% pain reduction for the 8 hours after the procedure. I think she would be a good candidate for bupivacaine pain pump implantation. I will schedule this procedure for her accordingly. She may not need to stop her opioid medications before the procedure. If she receives significant pain relief after the implant we will start tapering down her opioid doses. Prior: She went for intrathecal trial on 02/23/2022.? She reports 50% at least of the pain relief for 24 hours after the injection.? She is not opioid naive patient.? She is pretty much tolerant and I injected only 150 micro g of Dilaudid intrathecally.? Therefore we may expect significant pain reduction for her given the right combination of the medications.? She wanted me to schedule her for implantation of the intrathecal pain pump.? She is immunocompromised individual she needs to be the very strict observation during a and after the surgery.? However today she was upset that the need for her completion of physical therapy as well as a need to dial down and eliminate opioids at least for 4 weeks before implantation of the pain pump.? She renewed her interest into?Nevro spinal cord stimulator.? I explained to her that we can go for trial of Nevro SCS if she is okay with this as soon as she completes physical therapy. Brooklyn is 41 years old female who is suffering from multiple medical conditions including Bencet disease, Crohn's disease, she is immunocompromised.? Her pain involves chronic abdominal pain in lower back pain.? She also has a chronic pelvic pain.? She was under might exacerbation on chronic oral opioid therapy for 3 years.? She was approved by psychological evaluation in the past for the neuromodulation.. [facility] Medical History Abdominal pain Abdominal pain, chronic, generalized Absence seizure disorder Asthma Behcet's disease Cervicalgia Chronic pain syndrome Common variable immunodeficiency Crohn's disease DVT (deep venous thrombosis) Gastroparesis Low back pain Pyloric stenosis Spondylolisthesis, lumbar region Spondylosis of lumbar region without myelopathy or radiculopathy Spontaneous pneumothorax Surgical History History of hernia surgery Family History Father Hairy cell leukemia Social History Household Members: Children Household Members Other:: son Housing: Apartment Do you presently have visiting nurse or other home services: Yes Alcohol intake: never Patient Tobacco Use Status: Never used Tobacco Advance Directives Date on File: 03/12/21 service: No Current occupational status: unemployed Review of Systems Const All systems reviewed & are unremarkable except as noted in HPI and below Physical Exam Vital Signs: Last Vital Signs Pulse 73 01/06/23 10:20 Resp 16 01/06/23 10:20 BP 118/60 01/06/23 10:20 Pulse Ox 96 01/06/23 10:20 Oxygen Delivery Method Room Air 01/06/23 10:20 BMI result Body Mass Index 27.7 Const Other: appears moderately anxious General: cooperative, healthy appearing, no acute distress and alert Orientation/consciousness: patient oriented x3 HEENT Head: Yes normocephalic and Yes atraumatic Ears: hearing grossly normal bilaterally Eyes General: appearance normal, both eyes and all related structures Eyelids: Yes eyelids normal Pupils: Equal, round and reactive pupils present EOM: EOMs intact bilaterally Neck Neck: Yes normal visual inspection and Yes no JVD Resp Effort & Inspection: normal respiratory effort, able to speak in complete sentences and no audible wheezes Cardio Jugular venous distension: no JVD GI Inspection: Yes incision and Yes scar Neuro General: patient oriented x3, gait normal and moves all extremities Cranial nerves: Yes Equal, round and reactive pupils present Assessment & Plan Assessment & Plan (1) Cervicalgia: Code(s): M54.2 - Cervicalgia (2) Behcet's disease: Code(s): M35.2 - Behcet's disease (3) Crohn's disease: Code(s): K50.90 - Crohn's disease, unspecified, without complications Qualifiers: Digestive disease complication type: other complication Gastrointestinal tract location: unspecified location Qualified Code(s): K50.918 - Crohn's disease, unspecified, with other complication (4) Low back pain: Code(s): M54.5 - Low back pain (5) Chronic pain syndrome: Code(s): G89.4 - Chronic pain syndrome (6) Chronic, continuous use of opioids: Code(s): F11.90 - Opioid use, unspecified, uncomplicated (7) Chronic abdominal pain: Code(s): R10.9 - Unspecified abdominal pain; G89.29 - Other chronic pain Plan The results of the pain pump trial with bupivacaine are encouraging. 2 mg of bupivacaine injected intrathecally reduced her pain more than 50%. The pain relief lasted up to 10 hours after the procedure and possibly longer into the morning after which she started to feel pain in the previous level of the procedure. She is on exuberant doses of the opioid medications. Will start to taper opioids down if we will receive good results from the bupivacaine pain pump implantation. Coding Level of Care Code Est Pt Level 4 (12173) Diagnoses Cervicalgia M54.2 Behcet's disease M35.2 Crohn's disease K50.918 Digestive disease complication type: other complication Gastrointestinal tract location: unspecified location Low back pain M54.5 Chronic pain syndrome G89.4 Chronic, continuous use of opioids F11.90 Chronic abdominal pain R10.9; G89.29
[2023-01-06 10:20] VITALS: BP 118/60; PULSE 73; RESP 16; O2SAT 96; BMI 27.7
== END 2023-01-06 10:34 | disposition home or self-care (01) ==
PROVIDERS: PCP Registered Nurse; Visit Provider Anesthesiology
DX: M54.2 Cervicalgia (principal); M35.2 Behcet's disease; K50.918 Crohn's disease, unspecified, with other complication; M54.50 Low back pain, unspecified; G89.4 Chronic pain syndrome; Z79.891 Long term (current) use of opiate analgesic; R10.9 Unspecified abdominal pain; G89.29 Other chronic pain
CPT/HCPCS: 99214

== ENCOUNTER → 2023-01-06 10:12 | Outpatient (BNVA) | payer OTHER, MEDICARE, MEDICAID, SELFPAY | PROVIDERS: PCP Registered Nurse; Visit Provider Anesthesiology ==

== ENCOUNTER 2023-01-09 18:33 | Emergency (ER) | payer MEDICARE, MEDICAID, SELFPAY ==
--- NOTE | ~2023-01-09 | CT_ITS ---
EXAMINATION: CT ABDOMEN AND PELVIS WITHOUT CONTRAST CLINICAL INFORMATION: Abdominal pain. History of colitis. COMPARISON: 06/16/2022 TECHNIQUE: Multidetector volumetric imaging was performed from the superior aspect of the liver through the pubic symphysis. Sagittal and coronal reformatted images were obtained on the technologist's workstation. This CT examination was performed using dose optimization techniques as appropriate, variously including the following: *Automated exposure control *Adjustment of mA and/or kV according to patient size (this includes techniques or standardized protocols for targeted exams where dose is matched to indication/reason for exam; i.e. extremities or head) *Use of iterative reconstruction technique DLP: 438 mGy-cm FINDINGS: LUNG BASES: Bibasilar atelectasis. There is a port in place in the posterior right subcutaneous tissues which tracks into the IVC and terminates in the region of the right atrium. LIVER, GALLBLADDER, AND BILIARY TREE: The liver is normal in size, shape, and attenuation. No focal hepatic lesion or biliary ductal dilatation is present. The gallbladder is unremarkable with no evidence of radiopaque gallstones, gallbladder wall thickening, or obvious pericholecystic inflammatory changes. PANCREAS: Unremarkable. SPLEEN: Unremarkable. ADRENAL GLANDS: Unremarkable. KIDNEYS AND URETERS: The kidneys are normal in size, shape, and attenuation. No hydronephrosis, hydroureter, or calculi seen. No perinephric stranding. BLADDER: Unremarkable. GASTROINTESTINAL TRACT: The stomach is distended without wall thickening. Normal caliber small bowel. No obstruction. The appendix is not definitively seen. No findings to suggest acute appendicitis. The left hemicolon is decompressed with no evidence of inflammation. ABDOMINAL WALL: Prior left abdominal wall hernia repair. Fat-containing ventral abdominal wall hernia with wide neck. LYMPH NODES: Normal. VASCULAR: Unremarkable. PELVIC VISCERA: Unremarkable. OSSEOUS STRUCTURES: No acute or suspicious osseous abnormality. CT/CT abdomen pelvis wo IV con IMPRESSION: No acute findings in the abdomen or pelvis. No inflammatory changes. Fleischner guidelines were followed.
[2023-01-09 19:25] VITALS: BP 128/82; PULSE 83; RESP 18; TEMP 37.2; O2SAT 97; BMI 27.5
--- NOTE | 2023-01-09 19:34 | ED_ITS ---
HPI - General Adult General Chief complaint: General Medical Stated complaint: Sent by Urgent care Time Seen by Provider: 01/09/23 23:24 Source: patient Mode of arrival: ambulatory Limitations: no limitations History of Present Illness HPI narrative: Patient is 42 years old with history of Bahcets syndrome, Crohn's disease on Humira for last 2 months, gastroparesis, , chronic pain, common variable immunodeficiency followed by pain clinic on hydromorphone comes in for 1 week of diarrhea and nausea and diffuse abdominal pain patient had intrathecal bupivacaine on 01/06 started having headache since yesterday which is present all the time get worse on standing patient does have history of C diff in the past having watery stool 10-15 times a day no fever no chills had small amount of blood last week taking Imodium without much relief patient last flare-up of Crohn disease was last year Related Data Home Medications Medication Instructions Recorded Confirmed albuterol sulfate 90 mcg/actuation 2 puff inhalation Q4H PRN Wheezing 12/12/20 10/13/22 aerosol inhaler fluticasone furoate 200 1 inh inhalation Q24H 12/12/20 10/13/22 mcg-vilanterol 25 mcg/dose inhalation powder (Breo Ellipta) umeclidinium 62.5 mcg/actuation 1 inh inhalation DAILY 12/12/20 10/13/22 blister powder for inhalation (Incruse Ellipta) acetaminophen 325 mg tablet 650 mg PO Q4H PRN Pain 03/12/21 10/13/22 diphenhydramine HCl 50 mg/mL 25 mg IV QID PRN Nausea 03/12/21 10/13/22 injection solution ondansetron HCl (PF) 4 mg/2 mL 4 mg IV QID PRN Nausea 03/12/21 10/13/22 injection solution levetiracetam 100 mg/mL oral 700 mg PO BID 08/18/21 10/13/22 solution (Keppra) promethazine 25 mg tablet 25 mg PO QID PRN Nausea And 08/18/21 10/13/22 Vomiting Previous Rx's Medication Instructions Recorded hydromorphone 4 mg tablet 4 mg PO TID PRN severe pain (scale 12/15/22 score 7-10) 30 days #90 tabs Allergies Allergy/AdvReac Type Severity Reaction Status Date / Time ciprofloxacin [Cipro] Allergy Unknown unknown Verified 01/06/23 10:19 levofloxacin [Levaquin] Allergy Unknown unknown Verified 01/06/23 10:19 metoclopramide [Reglan] Allergy Unknown unknown Verified 01/06/23 10:19 ondansetron [Zofran] Allergy Unknown unknown Verified 01/06/23 10:19 penicillin V Allergy Unknown unknown Verified 01/06/23 10:19 prochlorperazine Allergy Unknown unknown Verified 01/06/23 10:19 [From Compazine] Sulfa (Sulfonamide Allergy Unknown unknown Verified 01/06/23 10:19 Antibiotics) thalidomide [From Thalomid] Allergy Unknown unknown Verified 01/06/23 10:19 Review of Systems Review of Systems: Yes all other systems are reviewed and are negative PMFSH Past Medical History Medical History Abdominal pain Abdominal pain, chronic, generalized Absence seizure disorder Asthma Behcet's disease Cervicalgia Chronic pain syndrome Common variable immunodeficiency Crohn's disease DVT (deep venous thrombosis) Gastroparesis Low back pain Pyloric stenosis Spondylolisthesis, lumbar region Spondylosis of lumbar region without myelopathy or radiculopathy Spontaneous pneumothorax Surgical History History of hernia surgery Family History Family History Father Hairy cell leukemia Social History Social History Household Members: Children Household Members Other:: son Housing: Apartment Do you presently have visiting nurse or other home services: Yes Alcohol intake: never Patient Tobacco Use Status: Never used Tobacco Smoked in Last 30 Days: No Use of substances other than those prescribed or required for medical reasons: No Advance Directives: Yes Advance Directives Information Provided: No Advance Directives on File: No Advance Directives Date on File: 03/12/21 service: No Current occupational status: unemployed Physical Exam ED Vital Signs: Vital Signs - 24 hr 01/09/23 19:25 01/09/23 20:50 01/10/23 00:09 Temperature 98.9 F 98.9 F 98.4 F Pulse Rate 83 83 76 Respiratory Rate 18 18 18 Blood Pressure 128/82 128/82 139/71 Pulse Oximetry 97 97 96 Oxygen Delivery Method Room Air Room Air Room Air 01/10/23 00:34 01/10/23 01:58 Temperature Pulse Rate Respiratory Rate 16 16 Blood Pressure Pulse Oximetry Oxygen Delivery Method BMI result Body Mass Index 27.5 Appearance: Alert. Oriented X3. No acute distress. Eyes: PERRLA, No Nystagmus ENT: Pharynx normal. Oral Mucosa moist Neck: Normal inspection. Neck supple. CVS: Normal heart rate and rhythm. Pulses normal. Respiratory: No respiratory distress. Equal air entry bilateral, no wheezing/rales/rhonchi Abdomen: Soft , diffuse tenderness. Bowel sounds are present, no mass palpable, no CVA tenderness Skin: Skin warm and dry. Normal skin color. Normal skin turgor. Extremities: No lower extremity edema. No calf tenderness Neuro: Oriented X 3. No motor deficit. No sensory deficit.No cerebellar signs , cranial nerves II-XII intact Course Course Course Narrative: RmE: 42 yold female presents to the ED for diarrhea and abdominal pain, secondary complaint is headache since having intrathecal bupivicane spine injection. no neuro deficits. Urgent care concernned for CSF leak. labs ordered and guillermo figueroa Reevaluation(s) Reevaluation #1: Patient in the emergency department appeared comfortable, patient was seen and evaluated by Dr. Quintero (do not meet criteria for admission), patient had CT abdomen pelvis in the emergency department showed no acute intra-abdominal pat hology will discharge to follow-up with her PCP. Time: 03:36 Medications Administered Discontinued Medications Generic Name Dose Route Start Last Admin Trade Name Rashawn PRN Reason Stop Dose Admin Diphenhydramine HCl 25 mg 01/09/23 23:45 01/09/23 23:53 Diphenhydramine Hcl 50 Mg/Ml Vial IVPUSH 01/09/23 23:46 25 mg ONCE ONE Administration Hydromorphone HCl 2 mg 01/09/23 23:45 01/09/23 23:54 Hydromorphone Hcl 2 Mg/Ml Vial IVPUSH 01/09/23 23:46 2 mg ONCE ONE Administration Protocol Hydromorphone HCl 2 mg 01/10/23 01:45 01/10/23 01:58 Hydromorphone Hcl 2 Mg/Ml Vial IVPUSH 01/10/23 01:46 2 mg ONCE ONE Administration Protocol Sodium Chloride 1,000 mls @ 999 mls/hr 01/09/23 23:29 01/09/23 23:47 Ns IV 01/10/23 00:29 999 mls/hr .Q1H1M ONE Administration Ketorolac Tromethamine 30 mg 01/09/23 23:29 01/09/23 23:47 Ketorolac Tromethamine 30 Mg/Ml Vial IVPUSH 01/09/23 23:30 30 mg ONCE ONE Administration Methylprednisolone Sodium Succinate 125 mg 01/10/23 01:45 01/10/23 01:57 Methylprednisolone Sod Succ 125 Mg/2 Ml Vial IVPUSH 01/10/23 01:46 125 mg ONCE ONE Administration Ondansetron HCl 4 mg 01/09/23 23:45 01/09/23 23:53 Ondansetron Hcl 4 Mg/2 Ml Vial IVPUSH 01/09/23 23:46 4 mg ONCE ONE Administration Medical Decision Making Medical Decision Making MDM Narrative: Patient with chronic pain syndrome with increased diarrhea possible colitis/flare-up of Crohn disease patient already on Humira will start her on prednisone check the stool for C diff unlikely as there is WBC counts normal and there is no blood or odor. Will get stool tested for C diff, CT scan of the abdomen check sed rate and CRP plan to admit if not better Differential Diagnosis Differential Diagnoses: The differential diagnosis associated with the presentation includes Colitis/Crohn disease flare up/post spinal tap headache/chronic pain syndrome/dehydrated Admission/Observation Consideration of admission/observation: Escalation of care including admission/observation considered Consult Healthcare Provider Management of the patient was discussed with: Hospitalist Lab Data [facility] Lab Attestation statement: I reviewed the patient's lab results. 01/09/23 19:43 01/09/23 19:43 Labs: Lab Results 01/09/23 01/09/23 01/09/23 Range/Units 19:43 19:43 19:43 WBC 7.0 (4.8-10.8) X10*3/uL RBC 4.66 (4.20-5.50) X10*6/uL Hgb 13.7 (12.0-16.0) g/dl Hct 40.5 (37.0-47.0) % MCV 86.9 (80.0-98.0) fL MCH 29.4 (27.0-33.0) pg MCHC 33.8 (31.0-35.0) g/dl RDW 12.5 (11.0-16.0) % Plt Count 246 (160-400) X10*3/uL MPV 10.3 (9.4-12.3) fL Immature Gran % (Auto) 0.3 (0.0-0.4) % Neut % (Auto) 55.6 (45-73) % Lymph % (Auto) 31.1 (20-40) % [place] % (Auto) 8.5 (2-11) % Eos % (Auto) 3.6 (0-4) % Baso % (Auto) 0.9 (0-2) % Lymph # (Auto) 2.2 (1.2-4.9) X10*3/uL [place] # (Auto) 0.6 (0.1-1.2) X10*3/uL Eos # (Auto) 0.3 (0.0-0.4) X10*3/uL Baso # (Auto) 0.1 (0.0-0.2) X10*3/uL Abs Immat Gran (auto) 0.02 (0.00-0.03) X10*3/uL Absolute Neuts (auto) 3.9 (2.0-8.3) x10*3/uL Absolute Nucleated RBC 0.000 (0.0-0.012) X10*3/uL Nucleated RBC % (auto) 0.0 (0.0-0.2) /100WBC ESR (0-20) MM/HR PT 11.8 (11.1-13.3) SEC INR 1.0 (0.9-1.1) APTT 28.0 (26.0-36.4) SEC Sodium 141 (135-145) mmol/L Potassium 3.9 (3.3-5.1) mmol/L Chloride 106 (96-108) mmol/L Carbon Dioxide 25 (22-29) mmol/L Anion Gap 14 (12-20) BUN 21 H (9-16) mg/dL Creatinine 1.04 (0.5-1.4) mg/dL Estim Creat Clear Calc 55.1 Estimated GFR 58 Random Glucose 118 H (60-115) mg/dL Calcium 10.0 D (8.4-10.2) mg/dL Total Bilirubin 0.3 (0.0-1.0) mg/dL AST 17 (5-31) U/L ALT 13 (0-31) U/L Alkaline Phosphatase 54 (39-117) U/L C-Reactive Protein 1.20 H (< or = 0.50) mg/dL Total Protein 7.3 (6.5-8.0) g/dL Albumin 4.6 (3.5-5.0) g/dL COVID-19 ([facility]NA) (Negative) COVID-19 Clin Com Influenza Type A (ARRON) (Negative) Influenza Type B (ARRON) (Negative) Influenza A & B Note 01/09/23 01/09/23 01/09/23 Range/Units 19:43 19:43 19:43 WBC (4.8-10.8) X10*3/uL RBC (4.20-5.50) X10*6/uL Hgb (12.0-16.0) g/dl Hct (37.0-47.0) % MCV (80.0-98.0) fL MCH (27.0-33.0) pg MCHC (31.0-35.0) g/dl RDW (11.0-16.0) % Plt Count (160-400) X10*3/uL MPV (9.4-12.3) fL Immature Gran % (Auto) (0.0-0.4) % Neut % (Auto) (45-73) % Lymph % (Auto) (20-40) % [place]orne % (Auto) (2-11) % Eos % (Auto) (0-4) % Baso % (Auto) (0-2) % Lymph # (Auto) (1.2-4.9) X10*3/uL [place] # (Auto) (0.1-1.2) X10*3/uL Eos # (Auto) (0.0-0.4) X10*3/uL Baso # (Auto) (0.0-0.2) X10*3/uL Abs Immat Gran (auto) (0.00-0.03) X10*3/uL Absolute Neuts (auto) (2.0-8.3) x10*3/uL Absolute Nucleated RBC (0.0-0.012) X10*3/uL Nucleated RBC % (auto) (0.0-0.2) /100WBC ESR 4 (0-20) MM/HR PT (11.1-13.3) SEC INR (0.9-1.1) APTT (26.0-36.4) SEC Sodium (135-145) mmol/L Potassium (3.3-5.1) mmol/L Chloride (96-108) mmol/L Carbon Dioxide (22-29) mmol/L Anion Gap (12-20) BUN (9-16) mg/dL Creatinine (0.5-1.4) mg/dL Estim Creat Clear Calc Estimated GFR Random Glucose (60-115) mg/dL Calcium (8.4-10.2) mg/dL Total Bilirubin (0.0-1.0) mg/dL AST (5-31) U/L ALT (0-31) U/L Alkaline Phosphatase (39-117) U/L C-Reactive Protein (< or = 0.50) mg/dL Total Protein (6.5-8.0) g/dL Albumin (3.5-5.0) g/dL COVID-19 ([facility]NA) Negative (Negative) COVID-19 Clin Com See Note Influenza Type A (ARRON) Negative (Negative) Influenza Type B (ARRON) Negative (Negative) Influenza A & B Note See Note Discharge Plan Discharge Clinical Impression: Chronic pain syndrome, Headache, Diarrhea, Colitis Patient Disposition: Home, Self-Care Instructions: Pain Management (ED) Prescriptions: No Action hydromorphone 4 mg tablet 4 mg PO TID PRN (Reason: severe pain (scale score 7-10)) 30 Days Qty: 90 0RF Rx Instructions: Partial fill per patient's request only albuterol sulfate 90 mcg/actuation Hfa Aerosol Inhaler 2 puff INHALATION Q4H PRN (Reason: Wheezing) Incruse Ellipta 62.5 mcg/actuation Blister With Device 1 inh INHALATION DAILY Breo Ellipta 200-25 mcg/dose Blister With Device 1 inh INHALATION Q24H diphenhydramine HCl 50 mg/mL solution 25 mg IV QID PRN (Reason: Nausea) ondansetron HCl (PF) 4 mg/2 mL solution 4 mg IV QID PRN (Reason: Nausea) acetaminophen 325 mg Tablet 650 mg PO Q4H PRN (Reason: Pain) promethazine 25 mg Tablet 25 mg PO QID PRN (Reason: Nausea And Vomiting) levetiracetam [Keppra] 100 mg/mL Solution 700 mg PO BID Referrals: Lalitha Sherman, [employer] [Primary Care Provider] - Interventions: ED Discharge Assessment Last Done: 01/10/23 04:02 Discharge Date/Time: 01/10/23 04:11
[2023-01-09 19:50] LABS: MANUAL DIFF FLAG NO
[2023-01-09 19:51] LABS: Basophils Absolute Auto 0.1 X10*3/uL (0.0-0.2); Basophils Percent Auto 0.9 % (0-2); Eosinophils Absolute Auto 0.3 X10*3/uL (0.0-0.4); Eosinophils Percent Auto 3.6 % (0-4); Hematocrit 40.5 % (37.0-47.0); Hemoglobin 13.7 g/dl (12.0-16.0); Imm Gran Abs Auto 0.02 X10*3/uL (0.00-0.03); Imm Gran Pct Auto 0.3 % (0.0-0.4); Lymphocytes Absolute Auto 2.2 X10*3/uL (1.2-4.9); Lymphocytes Percent Auto 31.1 % (20-40); Mean Corpuscular HGB Conc 33.8 g/dl (31.0-35.0); Mean Corpuscular Hemoglobin 29.4 pg (27.0-33.0); Mean Corpuscular Volume 86.9 fL (80.0-98.0); Mean Platelet Volume 10.3 fL (9.4-12.3); Monocytes Absolute Auto 0.6 X10*3/uL (0.1-1.2); Monocytes Percent Auto 8.5 % (2-11); Neutrophils Absolute Auto 3.9 x10*3/uL (2.0-8.3); Neutrophils Percent Auto 55.6 % (45-73); Platelet Count 246 X10*3/uL (160-400); Red Blood Count 4.66 X10*6/uL (4.20-5.50); Red Cell Distribution Width 12.5 % (11.0-16.0)
[2023-01-09 20:06] LABS: COVID-19 Test Negative (Negative); IDNOW Serial# 08D9AD1C
[2023-01-09 20:07] LABS: Alanine Aminotransferase 13 U/L (0-31); Albumin Level 4.6 g/dL (3.5-5.0); Alkaline Phosphatase 54 U/L (39-117); Anion Gap 14 (12-20); Aspartate Amino Transferase 17 U/L (5-31); Bilirubin Total 0.3 mg/dL (0.0-1.0); Blood Urea Nitrogen 21 mg/dL (9-16); Carbon Dioxide 25 mmol/L (22-29); Chloride 106 mmol/L (96-108); Creatinine Clr Calc Pharmacy 55.1; Estimated Glomerular Filt Rate 58; Glucose Random 118 mg/dL (60-115); IDNOW Serial# BCCEAD1C; Influenza A Negative (Negative); Influenza B2 Negative (Negative); Potassium 3.9 mmol/L (3.3-5.1); Sodium 141 mmol/L (135-145); Total Protein 7.3 g/dL (6.5-8.0)
[2023-01-09 20:10] LABS: Prothrombin Time 11.8 SEC (11.1-13.3)
[2023-01-09 20:50] VITALS: BP 128/82; PULSE 83; RESP 18; TEMP 37.2; O2SAT 97
--- NOTE | 2023-01-09 20:50 | PC.NURSE ---
Pt ca&ox4, no signs of distress. Pt denies chest pain and sob. Pt reports 8/10 adbm pain x1wk and headache and neck pain x 1 day. Pt reports fatigue and nausea, but no vomiting. Plan of care ongoing.
[2023-01-09] MEDS: Ketorolac Tromethamine 30 MG/ML VIAL IVPUSH (23:47)
[2023-01-09] MEDS: 0.9 % Sodium Chloride 1,000 ML 999 ML IV (23:47)
[2023-01-09] MEDS: diphenhydrAMINE HCL 50 MG/ML VIAL 25 MG IVPUSH (23:53)
[2023-01-09] MEDS: ondansetron HCL 4 MG/2 ML VIAL IVPUSH (23:53)
[2023-01-09] MEDS: HYDROmorphone HCl 2 MG/ML VIAL IVPUSH (23:54)
--- NOTE | 2023-01-10 00:01 | PC.NURSE ---
Pt ca&ox4, no signs of distress. Pt medicated per mar. plan of care ongoing.
[2023-01-10 00:09] VITALS: BP 139/71; PULSE 76; RESP 18; TEMP 36.9; O2SAT 96
[2023-01-10 00:34] VITALS: RESP 16
[2023-01-10] MEDS: methylPREDNISolone Sod Succ 125 MG/2 ML VIAL IVPUSH (01:57)
[2023-01-10 01:58] VITALS: RESP 16
[2023-01-10] MEDS: HYDROmorphone HCl 2 MG/ML VIAL IVPUSH (01:58)
--- NOTE | 2023-01-10 02:03 | PC.NURSE ---
Pt ca&ox4, no signs of distress. Pt medicated per mar. Plan of care ongoing.
[2023-01-10 02:46] LABS: Erythrocyte Sedimentation Rate 4 MM/HR (0-20)
--- NOTE | 2023-01-10 03:52 | PC.NURSE ---
Addendum entered by Aysha Rock 01/10/23 03:53: Pt requested and assisted to bathroom. Original Note: Pt requesting to go to the bathroom.
== END 2023-01-10 04:11 | disposition home or self-care (01) ==
PROVIDERS: Physician Assistant; Emergency Provider Internal Medicine; PCP Nurse Practitioner Family
DX: G89.29 Other chronic pain (principal); R51.9 Headache, unspecified; K52.9 Noninfective gastroenteritis and colitis, unspecified; R10.2 Pelvic and perineal pain; Z20.822 Contact with and (suspected) exposure to COVID-19; Z20.828 Contact with and (suspected) exposure to other viral communicable diseases; Z79.899 Other long term (current) drug therapy
CPT/HCPCS: 36415; 74176; 80053; 85025; 85610; 85652; 85730; 86140; 87502; 87635; 96361; 96374; 96375; 96376; 99284; J1170; J1200; J1885; J2405; J2930

== ENCOUNTER 2023-01-12 10:49 | Outpatient (AMB) | payer MEDICARE, MEDICAID, SELFPAY ==
--- NOTE | 2023-01-12 10:51 | MHC.OFFVIS ---
Intake Vital Signs 01/12/23 11:00 Height 4 ft 11 in Weight 138 lb BMI 27.9 BP 122/60 Blood Pressure Location Rt brachial Position Sitting Respiration 16 Pulse 65 Pulse Source Pulse Oximeter Pulse Oximetry (%) 98 Oxygen Delivery Method Room Air Intake Visit Reasons: PILL COUNT Intake Note: patient comes in for pill count to Hydromorphone. Allergies ciprofloxacin [Cipro] Allergy (Unknown, Verified 01/12/23 10:58) unknown levofloxacin [Levaquin] Allergy (Unknown, Verified 01/12/23 10:58) unknown metoclopramide [Reglan] Allergy (Unknown, Verified 01/12/23 10:58) unknown ondansetron [Zofran] Allergy (Unknown, Verified 01/12/23 10:58) unknown penicillin V Allergy (Unknown, Verified 01/12/23 10:58) unknown prochlorperazine [From Compazine] Allergy (Unknown, Verified 01/12/23 10:58) unknown Sulfa (Sulfonamide Antibiotics) Allergy (Unknown, Verified 01/12/23 10:58) unknown thalidomide [From Thalomid] Allergy (Unknown, Verified 01/12/23 10:58) unknown HPI HPI Comments History of Present Illness Details Brooklyn in the office today for the pill count and follow-up. She presented herself with 70 pills. She supposed to bring 69 pills. This demonstrate responsible attitude to were the opioid medications. I will renew her medications they are due on 02/04/2023. Her primary care physician put her on Belsomra for insomnia. She reports that she tried that medication, she did not have any side effects, she reported no improvement. In the past she tried hydroxyzine and amitriptyline with no good effect. I recommended her to tried good sleep hygiene. Mild exercises approximately 2-3 hours before going to bed. Contrast shower. No silver screens within 2 hours of going to bed. Patient agreed to try. She has naloxone at home. She reported to me that if now sewn she will let me know. I will prescribe her naloxone. She will be scheduled for the implantation of the bupivacaine pain pump. the trial of the intrathecal pain pump bupivacaine during which she received 2 mg of bupivacaine injected intrathecally. She reports that 2 hours after the procedure she had her pain 4/10. 4 hours after the procedure she had her pain 3 to 4/10. 6 hours after the procedure she continued to in joint pain reduction to 3 to 4/10. 8 hours after the procedure she continued to in joint pain reduction to 3 to 4/10. She went to bed at that time and she woke up in the morning when her pain went all the way back. Her regular pain is with very significant doses of the opioid medications on regular basis is ranging between 8 and 9/10. Therefore she reports more than 50% pain reduction for the 8 hours after the procedure. I think she would be a good candidate for bupivacaine pain pump implantation. I will schedule this procedure for her accordingly. She may not need to stop her opioid medications before the procedure. If she receives significant pain relief after the implant we will start tapering down her opioid doses. Prior: She went for intrathecal trial on 02/23/2022.? She reports 50% at least of the pain relief for 24 hours after the injection.? She is not opioid naive patient.? She is pretty much tolerant and I injected only 150 micro g of Dilaudid intrathecally.? Therefore we may expect significant pain reduction for her given the right combination of the medications.? She wanted me to schedule her for implantation of the intrathecal pain pump.? She is immunocompromised individual she needs to be the very strict observation during a and after the surgery.? However today she was upset that the need for her completion of physical therapy as well as a need to dial down and eliminate opioids at least for 4 weeks before implantation of the pain pump.? She renewed her interest into?Nevro spinal cord stimulator.? I explained to her that we can go for trial of Nevro SCS if she is okay with this as soon as she completes physical therapy. Brooklyn is 41 years old female who is suffering from multiple medical conditions including Bencet disease, Crohn's disease, she is immunocompromised.? Her pain involves chronic abdominal pain in lower back pain.? She also has a chronic pelvic pain.? She was under might exacerbation on chronic oral opioid therapy for 3 years.? She was approved by psychological evaluation in the past for the neuromodulation.. [facility] Medical History Abdominal pain Abdominal pain, chronic, generalized Absence seizure disorder Asthma Behcet's disease Cervicalgia Chronic pain syndrome Common variable immunodeficiency Crohn's disease DVT (deep venous thrombosis) Gastroparesis Low back pain Pyloric stenosis Spondylolisthesis, lumbar region Spondylosis of lumbar region without myelopathy or radiculopathy Spontaneous pneumothorax Surgical History History of hernia surgery Family History Father Hairy cell leukemia Social History Household Members: Children Household Members Other:: son Housing: Apartment Do you presently have visiting nurse or other home services: Yes Alcohol intake: never Patient Tobacco Use Status: Never used Tobacco Advance Directives Date on File: 03/12/21 service: No Current occupational status: unemployed Review of Systems Const All systems reviewed & are unremarkable except as noted in HPI and below Physical Exam Vital Signs: Last Vital Signs Pulse 65 01/12/23 11:00 Resp 16 01/12/23 11:00 BP 122/60 01/12/23 11:00 Pulse Ox 98 01/12/23 11:00 Oxygen Delivery Method Room Air 01/12/23 11:00 BMI result Body Mass Index 27.9 Const Other: appears moderately anxious General: cooperative, healthy appearing, no acute distress and alert Orientation/consciousness: patient oriented x3 HEENT Head: Yes normocephalic and Yes atraumatic Ears: hearing grossly normal bilaterally Eyes General: appearance normal, both eyes and all related structures Eyelids: Yes eyelids normal Pupils: Equal, round and reactive pupils present EOM: EOMs intact bilaterally Neck Neck: Yes normal visual inspection and Yes no JVD Resp Effort & Inspection: normal respiratory effort, able to speak in complete sentences and no audible wheezes Cardio Jugular venous distension: no JVD GI Inspection: Yes incision and Yes scar Neuro General: patient oriented x3, gait normal and moves all extremities Cranial nerves: Yes Equal, round and reactive pupils present Assessment & Plan Assessment & Plan (1) Cervicalgia: Code(s): M54.2 - Cervicalgia (2) Behcet's disease: Code(s): M35.2 - Behcet's disease (3) Crohn's disease: Code(s): K50.90 - Crohn's disease, unspecified, without complications Qualifiers: Digestive disease complication type: other complication Gastrointestinal tract location: unspecified location Qualified Code(s): K50.918 - Crohn's disease, unspecified, with other complication (4) Low back pain: Code(s): M54.5 - Low back pain (5) Chronic pain syndrome: Code(s): G89.4 - Chronic pain syndrome (6) Chronic, continuous use of opioids: Code(s): F11.90 - Opioid use, unspecified, uncomplicated (7) Chronic abdominal pain: Code(s): R10.9 - Unspecified abdominal pain; G89.29 - Other chronic pain Plan The results of the pain pump trial with bupivacaine are encouraging. 2 mg of bupivacaine injected intrathecally reduced her pain more than 50%. The pain relief lasted up to 10 hours after the procedure and possibly longer into the morning after which she started to feel pain in the previous level of the procedure. She is on exuberant doses of the opioid medications. Will start to taper opioids down if we will receive good results from the bupivacaine pain pump implantation. She brought her medication appropriate pill count today. She will receive new 1 month prescription on 02/04/2023. I will see her in 1 month. Medications: Refilled hydromorphone Partial fill per patient's request only 4 mg PO TID PRN 90 tabs 0RF severe pain (scale score 7-10) 30 days F11.90 - Opioid use, unspecified, uncomplicated, G89.29 - Other chronic pain, G89.4 - Chronic pain syndrome, R10.9 - Unspecified abdominal pain Coding Level of Care Code Est Pt Level 4 (14834) Diagnoses Cervicalgia M54.2 Behcet's disease M35.2 Crohn's disease K50.918 Digestive disease complication type: other complication Gastrointestinal tract location: unspecified location Low back pain M54.5 Chronic pain syndrome G89.4 Chronic, continuous use of opioids F11.90 Chronic abdominal pain R10.9; G89.29
[2023-01-12 11:00] VITALS: BP 122/60; PULSE 65; RESP 16; O2SAT 98; BMI 27.9
== END 2023-01-12 11:23 | disposition home or self-care (01) ==
PROVIDERS: PCP Registered Nurse; Visit Provider Anesthesiology
DX: M54.2 Cervicalgia (principal); M35.2 Behcet's disease; G89.4 Chronic pain syndrome; Z79.891 Long term (current) use of opiate analgesic; K50.918 Crohn's disease, unspecified, with other complication; M54.50 Low back pain, unspecified; R10.9 Unspecified abdominal pain; G89.29 Other chronic pain
CPT/HCPCS: 99214

== ENCOUNTER → 2023-01-12 10:49 | Outpatient (BNVA) | payer OTHER, MEDICARE, MEDICAID, SELFPAY | PROVIDERS: PCP Registered Nurse; Visit Provider Anesthesiology ==

== ENCOUNTER 2023-02-03 09:53 | Day surgery (SDC) | payer MEDICARE, MEDICAID, SELFPAY ==
[2023-01-31 15:55] VITALS: BMI 27.9
--- NOTE | 2023-02-02 10:20 | HO.ANESPROP2 ---
Documented by User: Mellisa Almonte NP 02/02/23 10:24 HPI - Anesthesia Eval Consult details Narrative: 42yo F for Intrathecal Drug Delivery Implant with Preservative Free Bupivacain Chronic opioids PMFSH Active Problems Active Problems: All Active Problems (Updated 01/11/23 @ 00:01 by Aditya Liang) Cervicalgia (Acute) Acute low back pain (Acute) Chronic abdominal pain (Acute) Abdominal pain (Acute) Behcet's disease (Acute) Crohn's disease (Acute) Chronic, continuous use of opioids (Acute) Immunosuppression (Acute) Acute respiratory failure with hypoxia (Acute) Elbow injury (Acute) Pulmonary edema (Acute) Chronic pain (Acute) Contusion, back (Acute) Chest pain (Acute) Pneumonia due to COVID-19 virus (Acute) Spondylolisthesis, lumbar region (Acute) Spondylosis of lumbar region without myelopathy or radiculopathy (Acute) Chronic pain syndrome (Acute) Cervicalgia (Acute) Low back pain (Acute) Past Medical History Medical History Abdominal pain Abdominal pain, chronic, generalized Absence seizure disorder Asthma Behcet's disease Cervicalgia Chronic pain syndrome Common variable immunodeficiency Crohn's disease DVT (deep venous thrombosis) Gastroparesis Low back pain Pyloric stenosis Spondylolisthesis, lumbar region Spondylosis of lumbar region without myelopathy or radiculopathy Spontaneous pneumothorax Family History Family History Father Hairy cell leukemia Surgical History Surgical History History of hernia surgery Social History Social History Household Members: Children Household Members Other:: son Housing: Apartment Do you presently have visiting nurse or other home services: Yes Alcohol intake: never Patient Tobacco Use Status: Never used Tobacco Advance Directives Date on File: 03/12/21 service: No Current occupational status: unemployed Meds Allergies Allergy/AdvReac Type Severity Reaction Status Date / Time ciprofloxacin [Cipro] Allergy Unknown Hives Verified 02/03/23 10:35 levofloxacin [Levaquin] Allergy Unknown Hives Verified 02/03/23 10:35 metoclopramide [Reglan] Allergy Unknown Hives Verified 02/03/23 10:35 ondansetron [Zofran] Allergy Unknown Itching Verified 02/03/23 10:35 penicillin V Allergy Unknown Hives Verified 02/03/23 10:35 prochlorperazine Allergy Unknown Shortness Verified 02/03/23 10:35 [From Compazine] of Breath Sulfa (Sulfonamide Allergy Unknown Hives Verified 02/03/23 10:35 Antibiotics) thalidomide [From Thalomid] Allergy Unknown Rash Verified 02/03/23 10:35 haloperidol [From Haldol] Allergy Itching Verified 02/03/23 10:34 Home Medications Medication Instructions Recorded Confirmed Last Taken Type albuterol sulfate 90 mcg/actuation 2 puff inhalation Q4H PRN Wheezing 12/12/20 10/13/22 08/17/21 History aerosol inhaler fluticasone furoate 200 1 inh inhalation Q24H 12/12/20 10/13/22 08/17/21 History mcg-vilanterol 25 mcg/dose inhalation powder (Breo Ellipta) umeclidinium 62.5 mcg/actuation 1 inh inhalation DAILY 12/12/20 10/13/22 08/17/21 History blister powder for inhalation (Incruse Ellipta) acetaminophen 325 mg tablet 650 mg PO Q4H PRN Pain 03/12/21 10/13/22 08/17/21 History diphenhydramine HCl 50 mg/mL 25 mg IV QID PRN Nausea 03/12/21 10/13/22 08/17/21 History injection solution ondansetron HCl (PF) 4 mg/2 mL 4 mg IV QID PRN Nausea 03/12/21 10/13/22 08/17/21 History injection solution levetiracetam 100 mg/mL oral 700 mg PO BID 08/18/21 02/03/23 02/02/23 History solution (Keppra) promethazine 25 mg tablet 25 mg PO QID PRN Nausea And 08/18/21 10/13/22 02/03/23 History Vomiting apixaban 5 mg tablet (Eliquis) 5 mg PO DAILY 02/03/23 02/03/23 01/20/23 History Exam Exam Date and Time: February 02, 2023 1020 Height,Weight and Vital Signs: Height 4 ft 11 in Weight 62.596 kg Pertinent Lab Results Pertinent Lab Results: Laboratory Tests 01/09/23 19:43 WBC 7.0 Hgb 13.7 Hct 40.5 Plt Count 246 Sodium 141 Potassium 3.9 Chloride 106 Carbon Dioxide 25 BUN 21 H Creatinine 1.04 Narrative Narrative: ECHO 2020 Conclusions: - The left ventricular systolic function is normal. The visually estimated ejection fraction is between 55-60%. - No obvious valvular pathology seen on this study. Assessment and Plan Assessment Anesthesia Assessment: Chart Reviewed Documented by User: Alex Hylton MD 02/03/23 11:01 [facility] Past Medical History Medical History Abdominal pain Abdominal pain, chronic, generalized Absence seizure disorder Asthma Behcet's disease Cervicalgia Chronic pain syndrome Common variable immunodeficiency Crohn's disease DVT (deep venous thrombosis) Gastroparesis Low back pain Pyloric stenosis Spondylolisthesis, lumbar region Spondylosis of lumbar region without myelopathy or radiculopathy Spontaneous pneumothorax Patient : No Family History Family History Father Hairy cell leukemia Family history of problems with anesthesia: No Surgical History Surgical History History of hernia surgery History of Problems with Anesthesia: No Social History Social History Household Members: Children Household Members Other:: son Housing: Apartment Do you presently have visiting nurse or other home services: Yes Alcohol intake: never Patient Tobacco Use Status: Never used Tobacco Advance Directives Date on File: 03/12/21 service: No Current occupational status: unemployed Meds Allergies Allergy/AdvReac Type Severity Reaction Status Date / Time ciprofloxacin [Cipro] Allergy Unknown Hives Verified 02/03/23 10:35 levofloxacin [Levaquin] Allergy Unknown Hives Verified 02/03/23 10:35 metoclopramide [Reglan] Allergy Unknown Hives Verified 02/03/23 10:35 ondansetron [Zofran] Allergy Unknown Itching Verified 02/03/23 10:35 penicillin V Allergy Unknown Hives Verified 02/03/23 10:35 prochlorperazine Allergy Unknown Shortness Verified 02/03/23 10:35 [From Compazine] of Breath Sulfa (Sulfonamide Allergy Unknown Hives Verified 02/03/23 10:35 Antibiotics) thalidomide [From Thalomid] Allergy Unknown Rash Verified 02/03/23 10:35 haloperidol [From Haldol] Allergy Itching Verified 02/03/23 10:34 Home Medications Medication Instructions Recorded Confirmed Last Taken Type albuterol sulfate 90 mcg/actuation 2 puff inhalation Q4H PRN Wheezing 12/12/20 10/13/22 08/17/21 History aerosol inhaler fluticasone furoate 200 1 inh inhalation Q24H 12/12/20 10/13/22 08/17/21 History mcg-vilanterol 25 mcg/dose inhalation powder (Breo Ellipta) umeclidinium 62.5 mcg/actuation 1 inh inhalation DAILY 12/12/20 10/13/22 08/17/21 History blister powder for inhalation (Incruse Ellipta) acetaminophen 325 mg tablet 650 mg PO Q4H PRN Pain 03/12/21 10/13/22 08/17/21 History diphenhydramine HCl 50 mg/mL 25 mg IV QID PRN Nausea 03/12/21 10/13/22 08/17/21 History injection solution ondansetron HCl (PF) 4 mg/2 mL 4 mg IV QID PRN Nausea 03/12/21 10/13/22 08/17/21 History injection solution levetiracetam 100 mg/mL oral 700 mg PO BID 08/18/21 02/03/23 02/02/23 History solution (Keppra) promethazine 25 mg tablet 25 mg PO QID PRN Nausea And 08/18/21 10/13/22 02/03/23 History Vomiting apixaban 5 mg tablet (Eliquis) 5 mg PO DAILY 02/03/23 02/03/23 01/20/23 History Exam Airway Mallampati Class: I TM Dist: >3cm Neck ROM: Full Loose/Missing/Broken Teeth: No Heart: ok Lungs: ok Assessment and Plan Assessment Anesthesia Assessment: Anesthesia Plan Discussed Final Anesthetic Review Family History of Problems with Anesthesia: No History of Problems with Anesthesia: No NPO: Yes ASA Class: III Final Preanesthetic Review: No Changes in Pt Med Stat, Meds/Allgs Chart Reviewed, Consent Obtained/Reviewed and Anes Risks/Benef Reviewed Patient Risk: Intermediate Procedure Risk: Intermediate Anesthetic Plan Anesthetic Plan: GA and Agree w/ Assess. and Plan Disposition: Standard PACU
[2023-02-03] VITALS (10 sets, daily range): BP systolic 105–126; BP diastolic 53–84; PULSE 74–81; RESP 16–20; TEMP 36.1–36.7; O2SAT 94–96
--- NOTE | ~2023-02-03 | FL_ITS ---
EXAMINATION: XR FLUOROSCOPY WITH IMAGES CLINICAL INFORMATION: Intrathecal drug delivery implant. COMPARISON: None available. TECHNIQUE: Fluoroscopy Supervised By: Dr. Manny Pedroza. Fluoroscopy Time: 0.5 minutes. Cumulative Dose: 4.50 mGy. DAP: 0.0782 Gycm2. Images: 2. FINDINGS: Image demonstrates catheter in the lower thoracic spinal canal. FL/FL guidance in OR IMPRESSION: Fluoroscopy guidance for pain management procedure.
[2023-02-03 10:43] LABS: UPreg QC Valid YES; Urine Pregnancy NEGATIVE (NEGATIVE)
--- NOTE | 2023-02-03 11:38 | PC.NURSE ---
WE DID NOT USE HER ACCESSED PORT PER MD VAZQUEZ.MULTIPLE ATTEMPTS WITH PERIPHERAL IV ATTEMPTS. NO ACCESS.
--- NOTE | 2023-02-03 11:39 | PC.NURSE ---
MULTIPLE ATTEMPTS WITH MD AND ANESTHESIA OK TO USE PORT.
--- NOTE | 2023-02-03 11:42 | MHC.SHP ---
Pre-Procedural Eval Section A Date of Service: 02/03/23 The patient is an INPATIENT: No Changes since office visit: Yes Patient answered all questions The History & Physical has been completed within 30 days and I have reviewed it.: No Section B Chief Complaint: Crohn's disease,Behcet's disease,chronic pain Details of Present Illness: as above Relevant Family History (Specify if Yes): No Relevant Social History: None Present Medications: see Short Stay Collaborative assessment Medical History: Significant History (as above) History of Previous Operations: No relevant previous surgery Allergies: Allergies Allergy/AdvReac Type Severity Reaction Status Date / Time ciprofloxacin [Cipro] Allergy Unknown Hives Verified 02/03/23 10:35 levofloxacin [Levaquin] Allergy Unknown Hives Verified 02/03/23 10:35 metoclopramide [Reglan] Allergy Unknown Hives Verified 02/03/23 10:35 ondansetron [Zofran] Allergy Unknown Itching Verified 02/03/23 10:35 penicillin V Allergy Unknown Hives Verified 02/03/23 10:35 prochlorperazine Allergy Unknown Shortness Verified 02/03/23 10:35 [From Compazine] of Breath Sulfa (Sulfonamide Allergy Unknown Hives Verified 02/03/23 10:35 Antibiotics) thalidomide [From Thalomid] Allergy Unknown Rash Verified 02/03/23 10:35 haloperidol [From Haldol] Allergy Itching Verified 02/03/23 10:34 Review of Systems Sugical H&P ROS: Negative: Constitution, Cardiovascular, Respiratory, Neurological, Psychiatric, Allergic/Immunologic, Genitourinary, Musculoskeletal, Integumentary, Endocrine and Eyes/Ears/Nose/Throat and Yes, Specify: Hem-Onc (Bencet syndrome) and Gastrointestinal (Crohn's disease) Exam Surgical H&P Exam: Normal: HEENT, Normal: Heart, Normal: Lungs, Normal: Extremities, Normal: Skin and Normal: Neurological and Significant Findings: Abdomen (IV port for TPN) Plan Diagnosis/Plan: Unchanged I have reviewed the history and physical and performed a pertinent physical examination on my patient. No changes have occurred unless specified. Time Spent With Patient Time: Total time managing care of this patient today ___20_ minutes. Attempts to establish peripheral IV were made without success. the port will be used for the anesthesia.
--- NOTE | 2023-02-03 15:24 | PM.OP ---
Brief Operative Note Date of Service: 02/03/23 Pre-op diagnosis: CHRONIC PAIN SYNDROM, CROHN'S DISEASE, BENCET DISEASE. Post-op diagnosis: same Procedure: IMPLANTATION OF ITDD - BUPIVACAIN Implants: [employer] Syncromed II and Phase Visionenda intrathecal catheter. Surgeon: Manny Pedroza MD Anesthesia: GLMA Was an Director Of Nurses Registry used for this Procedure?: No Estimated blood loss (mL): 70 Pathology: none sent Disposition: PACU
--- NOTE | 2023-02-03 15:30 | P.OP_ITS ---
Operative Note Operative Note Date of Service: 02/03/23 Narrative: Implantation of intrathecal drug delivery system pain pump - [employer]. After obtaining informed consent and explaining to the patient risks, benefits and alternatives to treat her pain, the patient was brought up to the operating room where she was supine on the stretcher.? [employer] Of [place] [employer] monitors were applied andThe patient was induced with general anesthesia/LMA. The patient received antibiotic Clindamycin 900 mg 30 minutes before incision. Time-out was performed delineating correct site and side of the procedure, name and date of of the patient, risk of fire, need for antibiotic prophylaxis risk of DVT and need for DVT prophylaxis. ? After that the patient?s entire back? and upper buttocks were prepped with Chloraprep and draped with full body drape including ioban film. care was taken to protect her side port in the right loin through which patient is receiving TPN at home. Sterilely drape C-arm was brought over the OR field and square pictures of the L1, L2, L3 vertebrae were demonstrated on the screen. the entrance point? for the catheter was chosen as the L1-L2 interspace. In the strict midline fashion 8.5 cm vertical skin incision was made with #10 scalpel. The incision was widened with the Weitlaner retractor and deepened with electrocautery. Thorough hemostasis was obtained using electrocautery. due to extensive bleeding surgery form was also used on the lower portion of the wound. Surgiform was removed at the end of the procedure. hemostasis was achieved. The prevertebral fascia was freed from overlaying tissues. After that 100 mm introducer spinal 16 g needle was incerted under x-ray guidance in the projection of the right L3 pedicle on AP view. The needle advanced under the x- ray guidance with intemittent A-P? and lateral pictures toward the spinal canal. When on the lateral view the needle entered the spinal canal the stylet was removed and the clear flow of the CSF was obtain through the needle hub. Intrathecal Ascenda catheter was inserted through the needle and advanced under the x-ray guidance toward the T6 mid body vertebral body projection. The stylet was removed from the catheter and the flow of CSF fluid straw colored and clear was observed coming from the catheter.? Purse-string suture was applied surrounding? the a needle and it was tied.? After that the needle was withdrawn with care taken to keep the catheter in place.? Anchoring device was dislodged on the catheter and advanced until it met prevertebral fascia.? It was engaged on the body of the catheter.? Two anchoring Tycron sutures were used to suture left wing of the anchor to prevertebral fascia and 1 anchoring suture was used to stitch in the right wing of anchoring device to prevertebral fascia. ?After that the thorough irrigation of the wound was performed and wound was packed with vancomycin soaked 4 x 4. Attention then was concentrated on the patient's left upper buttock.Sterilely draped C-arm was brought over the o perative field again and position of the patient's Left iliac crest was demonstrated on the screen.? 2 cm below the projection of the? iliac crest? to the skin of the local anesthetic lidocaine plus Ropivacaine 1-1 was injected in the linear horizontal fashion.? After that 9 cm incision was performed in patient's? left upper buttock alongside the injected line. ? Thorough hemostasis was obtained using cautery device.? After that the wound was widened and made 2 cm deep .? The wound was extended medially and laterally as well as caudally and cranially to form the space to accommodate the body of the pump.? Thorough hemostasis was performed.? The wound was irrigated with vancomycin containing normal saline and then tunneling device was used to connect both wounds and dislodged the intrathecal catheter into the side wound.? The catheter was trimmed appropriately after that and sutureless connection device was mounted on the catheter.? After that sutureless connection device was connected to the pump.? Aspiration of the side port of the pump revealed clear flow of CSF.? Three anchoring 1-0 Tycron sutures were applied in most superior lateral most superior medial and the most inferior lateral corner of the wound.? After that the sutures were connected to the brackets on the body of the pump, intrathecal catheter was gathered behind the body of the pump and pump was dislodged into the wound.? After that the anchoring sutures were tied.? After that noncoring needle was used again to reach side port of the pump in clear flow of CSF 0.5 mL was demonstrated in the syringe connected to the noncoring needle. ? Thorough irrigation was performed again in both wounds.? Thorough hemostasis was verified.? 0 polisorb sutures were used to close both wounds, 2-0 suture of the same nature were used to approximate the skin.? Germ[place] were applied to the skin line and Bacitracin ointment was applied to the staple lines.? Sterile dressing with sterile 4x4s was performed, abdominal binder was applied.? Upon completion of the procedure patient was awaken and taken outside of the operating room to recovery room where she recovered uneventfully.?
--- NOTE | 2023-02-03 15:40 | W.PM.OPN ---
Operative Note Operative Note Date of Service: 02/03/23 Narrative: After obtaining informed consent and explaining to the patient risks, benefits and alternatives to treat her pain, the patient was brought up to the operating room where she was Supine on the stretcher..? [place] [employer] monitors were applied and General anesthesia with LMA was initiated. The patient received antibiotic Clindamycin 900 mg 30 minutes before incision. Time-out was performed delineating correct site and side of the procedure, name and date of of the patient, risk of fire, need for antibiotic prophylaxis risk of DVT and need for DVT prophylaxis. ? After that the patient?s entire back? and upper buttocks were prepped with Chloraprep and draped with full body drape including ioban film. Sterilely drape C-arm was brought over the OR field and square pictures of the L1, L2, L3 vertebrae were demonstrated on the screen. the entrance point? for the catheter was chosen as the L2-L3 interspace. In the strict midline fashion 8.5 cm vertical skin incision was made with #10 scalpel. The incision was widened with the Liseaner retractor and deepened with electrocautery. Thorough hemostasis was obtained using electrocautery. excessive bleeding in the lower corner of the wound was encountered, it was packed with Surgicel, at the end of the procedure Surgicel was removed. The prevertebral fascia was freed from overlaying tissues. After that 100 mm introducer spinal 16 g needle was incerted under x-ray guidance in the projection of the right L2 pedicle on AP view. The needle advanced to word L1-L2 interspace under the x-ray guidance with intemittent A-P? and lateral pictures toward the spinal canal. When on the lateral view the needle entered the spinal canal the stylet was removed and the clear flow of the CSF was obtain through the needle hub. Intrathecal Ascenda catheter was inserted through the needle and advanced under the x-ray guidance toward the T6 mid body vertebral body projection. The stylet was removed from the catheter and the flow of CSF fluid straw colored and clear was observed coming from the catheter.? Purse-string suture was applied surrounding? the a needle and it was tied.? After that the needle was withdrawn with care taken to keep the catheter in place.? Anchoring device was dislodged on the catheter and advanced until it met prevertebral fascia.? It was engaged on the body of the catheter.? Two anchoring Tycron sutures were used to suture left wing of the anchor to prevertebral fascia and 1 anchoring suture was used to stitch in the right wing of anchoring device to prevertebral fascia. ?After that the thorough irrigation of the wound was performed and wound was packed with vancomycin soaked 4 x 4. Attention then was concentrated on the patient's left upper buttock.Sterilely draped C-arm was brought over the operative field again and position of the patient's left iliac crest was demonstrated on the screen.? 2 cm below the projection of the? iliac crest? to the skin of the local anesthetic lidocaine plus Ropivacaine 1-1 was injected in the linear horizontal fashion.? After that 9.5 cm incision was performed in patient's? left upper buttock alongside the injected line. ? Thorough hemostasis was obtained using cautery device.? After that the wound was widened and made 3cm deep .? The wound was extended medially and laterally as well as caudally and cranially to form the space to accommodate the body of the pump.? Thorough hemostasis was performed.? The wound was irrigated with vancomycin containing normal saline and then tunneling device was used to connect both wounds and dislodged the intrathecal catheter into the side wound.? The catheter was trimmed appropriately after that and sutureless connection device was mounted on the catheter.? After that sutureless connection device was connected to the pump.? Aspiration of the side port of the pump revealed clear flow of CSF.? Three anchoring 1-0 Tycron sutures were applied in most superior lateral most superior medial and the most inferior lateral corner of the wound.? After that the sutures were connected to the brackets on the body of the pump, intrathecal catheter was gathered behind the body of the pump and pump was dislodged into the wound.? After that the anchoring sutures were tied.? After that noncoring needle was used again to reach side port of the pump in clear flow of CSF 0.5 mL was demonstrated in the syringe connected to the noncoring needle. ? Thorough irrigation was performed again in both wounds.? Thorough hemostasis was verified.? 0 polisorb sutures were used to close both wounds, 2-0 suture of the same nature were used to approximate the skin.? [place] were applied to the skin line and Bacitracin ointment was applied to the staple lines.? Sterile dressing with sterile 4x4s was performed, abdominal binder was applied.? Upon completion of the procedure patient was awaken and taken outside of the operating room to recovery room where she recovered uneventfully.?
[2023-02-03] MEDS: fentaNYL citrate/PF 100 MCG/2 ML VIAL 50 MCG IVPUSH (15:50)
[2023-02-03] MEDS: oxyCODONE HCl Immed Release 5 MG TABLET PO (16:08)
[2023-02-03 17:21] LABS: Glucose, Whole Blood 132 mg/dL (60-115)
== END 2023-02-03 17:20 | disposition home or self-care (01) ==
PROVIDERS: Nurse Practitioner; PCP Nurse Practitioner Family; Visit Provider Anesthesiology
PROC: (CPT 62362; principal; 2023-02-03 11:30)
DX: K50.918 Crohn's disease, unspecified, with other complication (principal); G89.4 Chronic pain syndrome; M54.2 Cervicalgia; M35.2 Behcet's disease; R10.9 Unspecified abdominal pain; M54.50 Low back pain, unspecified; M47.816 Spondylosis without myelopathy or radiculopathy, lumbar region; G40.A09 Absence epileptic syndrome, not intractable, without status epilepticus; J45.909 Unspecified asthma, uncomplicated; D83.9 Common variable immunodeficiency, unspecified; K31.84 Gastroparesis; I82.409 Acute embolism and thrombosis of unspecified deep veins of unspecified lower extremity; F11.90 Opioid use, unspecified, uncomplicated; Z79.51 Long term (current) use of inhaled steroids; Z79.01 Long term (current) use of anticoagulants; Z79.899 Other long term (current) drug therapy; Z88.0 Allergy status to penicillin; Z88.1 Allergy status to other antibiotic agents; Z88.2 Allergy status to sulfonamides; Z88.8 Allergy status to other drugs, medicaments and biological substances
CPT/HCPCS: 62362; 81025; 82947; C1755; C1772; J1170; J2550; J2795; J3010; J3370

== ENCOUNTER → 2023-02-03 09:53 | Outpatient (BNV) | payer MEDICARE, MEDICAID, SELFPAY | PROVIDERS: PCP Nurse Practitioner Family; Visit Provider Anesthesiology | DX: G89.4 Chronic pain syndrome (principal); M35.2 Behcet's disease; K50.918 Crohn's disease, unspecified, with other complication | CPT/HCPCS: 62362 ==

== ENCOUNTER 2023-02-04 17:58 | Inpatient (IN) | payer MEDICARE, MEDICAID, SELFPAY ==
--- NOTE | ~2023-02-04 | FL_ITS ---
EXAMINATION: XR FL WITH IMAGES CLINICAL INFORMATION: Epidural blood patch. COMPARISON: None available. TECHNIQUE: Fluoroscopy Supervised By: Tech KV. Fluoroscopy Time: 0.4 minutes. Cumulative Dose: 5.90 mGy. DAP: 1.38 Gycm2. Images: 2. FINDINGS: AP and lateral view of the spine show a needle in the posterior spine with contrast in the epidural space. Please see Dr. Manny Pedroza's report for complete details. FL/FL guidance in OR IMPRESSION: Fluoroscopic guidance for epidural blood patch.
--- NOTE | ~2023-02-04 | CT_ITS ---
EXAMINATION: CT HEAD WITHOUT CONTRAST CLINICAL INFORMATION: Headache. COMPARISON: None available. TECHNIQUE: Contiguous axial imaging was performed from the skull base to vertex without intravenous administration of contrast. This CT examination was performed using dose optimization techniques as appropriate, variously including the following: *Automated exposure control *Adjustment of mA and/or kV according to patient size (this includes techniques or standardized protocols for targeted exams where dose is matched to indication/reason for exam; i.e. extremities or head) *Use of iterative reconstruction technique DLP: 6-8 mGy-cm FINDINGS: The lateral, third and fourth ventricles are normally outlined. The cortical sulci and basal cisterns are normally outlined as well. There is no acute territorial defect, hemorrhage or midline shift. The extra-axial spaces are unremarkable. Calvarium: Intact. Maxillofacial sinuses and mastoids: Clear as visualized. CT/CT head/brain wo IV con IMPRESSION: No acute intracranial pathology.
[2023-02-04 18:06] VITALS: BP 125/74; PULSE 81; RESP 24; TEMP 36.7; O2SAT 97
--- NOTE | 2023-02-04 18:13 | MHC.EDTECH ---
Patient unable to change due to back problem
--- NOTE | 2023-02-04 18:38 | MHC.EDTECH ---
patient walked to the BR and changed
[2023-02-04 18:39] VITALS: BMI 27.7
--- NOTE | 2023-02-04 20:39 | ED.GENADULT ---
HPI - General Adult General Chief complaint: General Medical Stated complaint: MIGRAINE Time Seen by Provider: 02/04/23 20:22 History of Present Illness HPI narrative: Patient is a 42-year-old female with a history of chronic pain. History of Crohn's disease. History of migraines in the past. Multitude of allergies including to Compazine, Reglan, Haldol presented today after getting a intrathecal pain pump put in yesterday patient started developing headache that is frontal. Claim it is worse with lying down. Improved with sitting up. No fever no chills. No focal weakness. Patient had the pain pump placed at [facility]. Denies any focal weakness Related Data Home Medications Medication Instructions Recorded Confirmed albuterol sulfate 90 mcg/actuation 2 puff inhalation Q4H PRN Wheezing 12/12/20 10/13/22 aerosol inhaler fluticasone furoate 200 1 inh inhalation Q24H 12/12/20 10/13/22 mcg-vilanterol 25 mcg/dose inhalation powder (Breo Ellipta) umeclidinium 62.5 mcg/actuation 1 inh inhalation DAILY 12/12/20 10/13/22 blister powder for inhalation (Incruse Ellipta) acetaminophen 325 mg tablet 650 mg PO Q4H PRN Pain 03/12/21 10/13/22 diphenhydramine HCl 50 mg/mL 25 mg IV QID PRN Nausea 03/12/21 10/13/22 injection solution ondansetron HCl (PF) 4 mg/2 mL 4 mg IV QID PRN Nausea 03/12/21 10/13/22 injection solution levetiracetam 100 mg/mL oral 700 mg PO BID 08/18/21 02/03/23 solution (Keppra) promethazine 25 mg tablet 25 mg PO QID PRN Nausea And 08/18/21 10/13/22 Vomiting apixaban 5 mg tablet (Eliquis) 5 mg PO DAILY 02/03/23 02/03/23 Previous Rx's Medication Instructions Recorded hydromorphone 4 mg tablet 4 mg PO TID PRN severe pain (scale 01/12/23 score 7-10) 30 days #90 tabs clindamycin HCl 300 mg capsule 300 mg PO Q6H 14 days #56 caps 02/03/23 Allergies Allergy/AdvReac Type Severity Reaction Status Date / Time ciprofloxacin [Cipro] Allergy Unknown Hives Verified 02/03/23 10:35 levofloxacin [Levaquin] Allergy Unknown Hives Verified 02/03/23 10:35 metoclopramide [Reglan] Allergy Unknown Hives Verified 02/03/23 10:35 ondansetron [Zofran] Allergy Unknown Itching Verified 02/03/23 10:35 penicillin V Allergy Unknown Hives Verified 02/03/23 10:35 prochlorperazine Allergy Unknown Shortness Verified 02/03/23 10:35 [From Compazine] of Breath Sulfa (Sulfonamide Allergy Unknown Hives Verified 02/03/23 10:35 Antibiotics) thalidomide [From Thalomid] Allergy Unknown Rash Verified 02/03/23 10:35 haloperidol [From Haldol] Allergy Itching Verified 02/03/23 10:34 Review of Systems Review of Systems: Positive back pain positive headache no focal weakness Yes all other systems are reviewed and are negative PMFSH Past Medical History Attestation statement: The following information was validated with the patient. Medical History Pulmonary emboli Absence seizure disorder DVT (deep venous thrombosis) Pyloric stenosis Asthma Common variable immunodeficiency Spondylolisthesis, lumbar region Spondylosis of lumbar region without myelopathy or radiculopathy Abdominal pain, chronic, generalized Gastroparesis Spontaneous pneumothorax Abdominal pain Chronic pain syndrome Cervicalgia Low back pain Crohn's disease Behcet's disease Surgical History History of hernia surgery Family History Family History Father Hairy cell leukemia Social History Social History Household Members: Children Household Members Other:: son Housing: Apartment Do you presently have visiting nurse or other home services: Yes Alcohol intake: never Patient Tobacco Use Status: Never used Tobacco Advance Directives: Yes Advance Directives on File: Yes Advance Directives Date on File: 03/12/21 service: No Current occupational status: unemployed Physical Exam ED Vital Signs: Vital Signs - 24 hr 02/04/23 18:06 Temperature 98.1 F Pulse Rate 81 Respiratory Rate 24 H Blood Pressure 125/74 Pulse Oximetry 97 Oxygen Delivery Method Room Air BMI result Body Mass Index 27.7 Appearance: Alert. Oriented X3. No acute distress. Eyes: Pupils equal, round and reactive to light. ENT: Pharynx normal. Neck: Normal inspection. Neck supple. No lymph nodes noted. No crepitus CVS: Normal heart rate and rhythm. Pulses normal. Normal S1 and S2 Respiratory: No respiratory distress. Breath sounds normal. No Wheezing. No rales Abdomen: Soft and nontender. No rigidity. No distention. good BS x4 Skin: Skin warm and dry. Normal skin color. Normal skin turgor. Extremities: No lower extremity edema. Neurovascular intact to all extremities. No Lacerations. No Rash Neuro: Oriented X 3. No motor deficit. No sensory deficit. Moving all extermities. No slurred speech Medications Administered Discontinued Medications Generic Name Dose Route Start Last Admin Trade Name Freq PRN Reason Stop Dose Admin Acetaminophen/Butalbital/Caffeine 1 tab 02/04/23 21:24 02/04/23 21:52 Butalb/Acetamin/Caff 50/325/40 Tablet PO 02/04/23 21:25 1 tab ONCE ONE Administration Diphenhydramine HCl 50 mg 02/04/23 20:32 02/04/23 20:52 Diphenhydramine Hcl 50 Mg/Ml Vial IVPUSH 02/04/23 20:33 50 mg ONCE ONE Administration Sodium Chloride 1,000 mls @ 999 mls/hr 02/04/23 20:45 02/04/23 20:52 Ns IV 02/04/23 21:45 999 mls/hr .Q1H1M ANNA Administration Ondansetron HCl 4 mg 02/04/23 20:32 02/04/23 20:52 Ondansetron Hcl 4 Mg/2 Ml Vial IVPUSH 02/04/23 20:33 4 mg ONCE ONE Administration Medical Decision Making Medical Decision Making [facility] Narrative: Patient presented today complaining of excruciating headache worse with sitting up improved with lying down history of having an intrathecal pump placed yesterday at [facility]. Patient's case discussed with mobile paint specialist that put in the intrathecal pump. Wanted patient to be admitted for IV hydration pain management and he will consult in a.m.. Did not feel patient needed a urgent blood patch tonight. Patient is currently not on Eliquis. The last time she took Eliquis was 2 weeks ago she does have a history of PE is not having any chest pain shortness of breath. Patient given IV fluids. Given pain medication and medication for nausea. Will be admitted for further evaluation. We will consult the hospitalist team as well. Differential Diagnosis Differential Diagnoses: The differential diagnosis associated with the presentation includes Intracranial bleed, migraine headache, meningitis, spinal headache, tension headache Admission/Observation Consideration of admission/observation: Escalation of care including admission/observation considered Consult Healthcare Provider Management of the patient was discussed with: Hospitalist and Seat Cover Cutter Pain specialist consulted Lab Data MDM Lab Attestation statement: I reviewed the patient's lab results. 02/04/23 21:04 02/04/23 21:04 Labs: Lab Results 02/04/23 Range/Units 21:04 WBC 7.7 (4.8-10.8) X10*3/uL RBC 3.98 L (4.20-5.50) X10*6/uL Hgb 11.9 L (12.0-16.0) g/dl Hct 35.0 L (37.0-47.0) % MCV 87.9 (80.0-98.0) fL MCH 29.9 (27.0-33.0) pg MCHC 34.0 (31.0-35.0) g/dl RDW 12.8 (11.0-16.0) % Plt Count 215 (160-400) X10*3/uL MPV 10.4 (9.4-12.3) fL Immature Gran % (Auto) 0.3 (0.0-0.4) % Neut % (Auto) 80.0 H (45-73) % Lymph % (Auto) 13.4 L (20-40) % [place] % (Auto) 5.7 (2-11) % Eos % (Auto) 0.1 (0-4) % Baso % (Auto) 0.5 (0-2) % Lymph # (Auto) 1.0 L (1.2-4.9) X10*3/uL [place] # (Auto) 0.4 (0.1-1.2) X10*3/uL Eos # (Auto) 0.0 (0.0-0.4) X10*3/uL Baso # (Auto) 0.0 (0.0-0.2) X10*3/uL Abs Immat Gran (auto) 0.02 (0.00-0.03) X10*3/uL Absolute Neuts (auto) 6.2 (2.0-8.3) x10*3/uL Absolute Nucleated RBC 0.000 (0.0-0.012) X10*3/uL Nucleated RBC % (auto) 0.0 (0.0-0.2) /100WBC Smear Tech's Comments VERIFIED Sodium 143 (135-145) mmol/L Potassium 3.8 (3.3-5.1) mmol/L Chloride 108 (96-108) mmol/L Carbon Dioxide 25 (22-29) mmol/L Anion Gap 14 (12-20) BUN 13 (9-16) mg/dL Creatinine 0.82 (0.5-1.4) mg/dL Estim Creat Clear Calc 70.1 Estimated GFR > 60 Random Glucose 173 H (60-115) mg/dL Calcium 9.2 D (8.4-10.2) mg/dL Beta HCG, Quant 6 mIU/mL External Record Review External record reviewed: Inpatient record Patient's surgical record reviewed she had pain pump placed yesterday Discharge Plan Discharge Clinical Impression: Spinal headache Patient Disposition: Admitted As Inpatient
[2023-02-04] MEDS: ondansetron HCL 4 MG/2 ML VIAL IVPUSH (20:52)
[2023-02-04] MEDS: 0.9 % Sodium Chloride 1,000 ML 999 ML IV (20:52)
[2023-02-04] MEDS: diphenhydrAMINE HCL 50 MG/ML VIAL IVPUSH (20:52)
[2023-02-04 21:15] LABS: Eosinophils Percent Auto 0.1 % (0-4); Imm Gran Abs Auto 0.02 X10*3/uL (0.00-0.03); Imm Gran Pct Auto 0.3 % (0.0-0.4); MANUAL DIFF FLAG SCAN; Mean Platelet Volume 10.4 fL (9.4-12.3); Monocytes Percent Auto 5.7 % (2-11); PLT CLUMP 1; SCAN SMEAR FLAG 1
[2023-02-04 21:17] LABS: Basophils Percent Auto 0.5 % (0-2); Hemoglobin 11.9 g/dl (12.0-16.0); Lymphocytes Percent Auto 13.4 % (20-40); Mean Corpuscular Hemoglobin 29.9 pg (27.0-33.0); Mean Corpuscular Volume 87.9 fL (80.0-98.0); Monocytes Absolute Auto 0.4 X10*3/uL (0.1-1.2); Neutrophils Absolute Auto 6.2 x10*3/uL (2.0-8.3); Red Blood Count 3.98 X10*6/uL (4.20-5.50); Red Cell Distribution Width 12.8 % (11.0-16.0)
[2023-02-04 21:22] LABS: Platelet Count 215 X10*3/uL (160-400); White Blood Count 7.7 X10*3/uL (4.8-10.8)
[2023-02-04 21:26] LABS: Anion Gap 14 (12-20); Blood Urea Nitrogen 13 mg/dL (9-16); Calcium 9.2 mg/dL (8.4-10.2); Carbon Dioxide 25 mmol/L (22-29); Chloride 108 mmol/L (96-108); Creatinine Clr Calc Pharmacy 70.1; Estimated Glomerular Filt Rate > 60; Glucose Random 173 mg/dL (60-115); Potassium 3.8 mmol/L (3.3-5.1); SLIDE REVIEW VERIFIED; Sodium 143 mmol/L (135-145)
[2023-02-04 21:34] LABS: HCG Quantitative 6 mIU/mL
[2023-02-04] MEDS: Butalb/Acetamin/Caff 50/325/40 TABLET 1 TAB PO (21:52)
[2023-02-05] VITALS (8 sets, daily range): BP systolic 101–143; BP diastolic 49–82; PULSE 67–92; RESP 14–20; TEMP 36–36.8; O2SAT 95–100; BMI 30.5
--- NOTE | 2023-02-05 00:31 | PC.NURSE ---
Steve text sent to Dr. Quintero regarding pts increased pain. Pt requesting pain meds.
--- NOTE | 2023-02-05 00:48 | PM.IMHP ---
History of Present Illness Date of Service: 02/05/23 Chief Complaint: Headache This is a 42-year-old female with pertinent history of chronic pain syndrome, seizure disorder, DVT/PE on Eliquis, asthma not on home oxygen who presents to the emergency department for evaluation of headache. Patient states she got intrathecal pain pump yesterday by her pain management doctor and has been having frontal headaches since. It has been progressive and was worse on the day of presentation. Is associated with nausea. No vision changes. It is worse with sitting or standing and relieved by lying flat. Also has associated back pain. Patient denies fever, chills, chest discomfort, palpitations, shortness of breath, abdominal pain, changes in urinary or bowel habits. Patient states she has been compliant with Eliquis but it was stopped for the last 1 week for spinal procedure. In the emergency department, pain management physician was consulted who requested admission and will evaluate the patient in a.m. Review of Systems Constitutional: Constitutional: Reports fatigue, Reports headache(s) and Reports malaise ENT: Reports headache(s) Cardiovascular: Cardiovascular: Reports no additional cardiovascular complaints Respiratory: Respiratory: Reports no additional respiratory complaints Gastrointestinal: Gastrointestinal: Reports nausea Genitourinary: Genitourinary: Reports no additional female genitourinary complaints Neurologic: Reports headache(s) Endocrine: Endocrine: Reports fatigue [facility] Medical History Pulmonary emboli Absence seizure disorder DVT (deep venous thrombosis) Pyloric stenosis Asthma Common variable immunodeficiency Spondylolisthesis, lumbar region Spondylosis of lumbar region without myelopathy or radiculopathy Abdominal pain, chronic, generalized Gastroparesis Spontaneous pneumothorax Abdominal pain Chronic pain syndrome Cervicalgia Low back pain Crohn's disease Behcet's disease Family History Father Hairy cell leukemia Surgical History History of hernia surgery Social History Household Members: Children Household Members Other:: son Housing: Apartment Do you presently have visiting nurse or other home services: Yes Alcohol intake: never Patient Tobacco Use Status: Never used Tobacco Smoked in Last 30 Days: No Use of substances other than those prescribed or required for medical reasons: No Advance Directives: Yes Advance Directives on File: Yes Advance Directives Date on File: 03/12/21 service: No Current occupational status: unemployed Meds Allergies Allergy/AdvReac Type Severity Reaction Status Date / Time ciprofloxacin [Cipro] Allergy Unknown Hives Verified 02/03/23 10:35 levofloxacin [Levaquin] Allergy Unknown Hives Verified 02/03/23 10:35 metoclopramide [Reglan] Allergy Unknown Hives Verified 02/03/23 10:35 ondansetron [Zofran] Allergy Unknown Itching Verified 02/03/23 10:35 penicillin V Allergy Unknown Hives Verified 02/03/23 10:35 prochlorperazine Allergy Unknown Shortness Verified 02/03/23 10:35 [From Compazine] of Breath Sulfa (Sulfonamide Allergy Unknown Hives Verified 02/03/23 10:35 Antibiotics) thalidomide [From Thalomid] Allergy Unknown Rash Verified 02/03/23 10:35 haloperidol [From Haldol] Allergy Itching Verified 02/03/23 10:34 Home Medications Medication Instructions Recorded Confirmed Last Taken Type albuterol sulfate 90 mcg/actuation 2 puff inhalation Q4H PRN Wheezing 12/12/20 10/13/22 08/17/21 History aerosol inhaler fluticasone furoate 200 1 inh inhalation Q24H 12/12/20 10/13/22 08/17/21 History mcg-vilanterol 25 mcg/dose inhalation powder (Breo Ellipta) umeclidinium 62.5 mcg/actuation 1 inh inhalation DAILY 12/12/20 10/13/22 08/17/21 History blister powder for inhalation (Incruse Ellipta) acetaminophen 325 mg tablet 650 mg PO Q4H PRN Pain 03/12/21 10/13/22 08/17/21 History diphenhydramine HCl 50 mg/mL 25 mg IV QID PRN Nausea 03/12/21 10/13/22 08/17/21 History injection solution ondansetron HCl (PF) 4 mg/2 mL 4 mg IV QID PRN Nausea 03/12/21 10/13/22 08/17/21 History injection solution levetiracetam 100 mg/mL oral 700 mg PO BID 08/18/21 02/03/23 02/02/23 History solution (Keppra) promethazine 25 mg tablet 25 mg PO QID PRN Nausea And 08/18/21 10/13/22 02/03/23 History Vomiting apixaban 5 mg tablet (Eliquis) 5 mg PO DAILY 02/03/23 02/03/23 01/20/23 History Physical Exam Vital Signs and Narrative: Vital Signs: Last Vital Signs Temp 97.0 F 02/05/23 00:38 Pulse 80 02/05/23 00:38 Resp 20 02/05/23 00:38 BP 101/49 L 02/05/23 00:38 Pulse Ox 95 02/05/23 00:38 O2 Del Method Room Air 02/05/23 00:38 BMI result Body Mass Index 27.7 Middle-aged female lying in bed in mild distress Neck supple, no JVD Regular rate and rhythm, S1-S2 heard Regular breath sounds bilaterally, no wheezing or crackles appreciated Abdomen soft nontender, no guarding, no rigidity Patient is awake, alert and oriented to self, place, time and person ; no focal motor deficit Psych: Normal mood No pedal edema Results Labs 02/04/23 21:04 02/04/23 21:04 Labs: Laboratory Results - last 24 hr 02/04/23 21:04 MCV 87.9 MCH 29.9 MCHC 34.0 RDW 12.8 Plt Count 215 MPV 10.4 Immature Gran % (Auto) 0.3 Neut % (Auto) 80.0 H Lymph % (Auto) 13.4 L Menard % (Auto) 5.7 Eos % (Auto) 0.1 Baso % (Auto) 0.5 Lymph # (Auto) 1.0 L Menard # (Auto) 0.4 Eos # (Auto) 0.0 Baso # (Auto) 0.0 Abs Immat Gran (auto) 0.02 Absolute Neuts (auto) 6.2 Absolute Nucleated RBC 0.000 Nucleated RBC % (auto) 0.0 Smear Tech's Comments VERIFIED Anion Gap 14 Estim Creat Clear Calc 70.1 Estimated GFR > 60 Random Glucose 173 H Calcium 9.2 D Beta HCG, Quant 6 Assessment and Plan (1) Spinal headache: Status: Acute Plan This is a 42-year-old female with pertinent history of chronic pain syndrome, seizure disorder, DVT/PE on Eliquis, asthma not on home oxygen who presents to the emergency department for evaluation of headache. #. Post dural puncture headache, intractable: Will admit patient for observation. Resuscitating with IV crystalloids. IV opioids p.r.n.. Pain management physician consulted from the ER who will evaluate the patient in a.m., appreciate assistance. Epidural blood patch not indicated as patient on Eliquis. #. Seizure disorder on Keppra #. Asthma. No exacerbation during admission. Continue home inhalers #. DVT/PE on Eliquis Med rec pending DVT prophylaxis: Eliquis Full Code Time Spent With Patient Time: Total time managing care of this patient today ____ minutes. Quality Stroke Does the patient have a stroke diagnosis?: No VTE Prior VTE?: No VTE Risk Level:: Medical - moderate - high VTE Device Contraindication: Treatment Not Indicated VTE Drug Contraindication: N/A - Med Ordered
[2023-02-05] MEDS: HYDROmorphone HCl 1 MG/ML SYRINGE IVPUSH (00:55)
[2023-02-05] MEDS: ondansetron HCL 4 MG/2 ML VIAL IVPUSH ×4 (02:13→20:02)
[2023-02-05] MEDS: diphenhydrAMINE HCL 50 MG/ML VIAL IVPUSH (02:13)
[2023-02-05] MEDS: levETIRAcetam Oral Soln 500 MG/5 ML 700 MG PO (04:16)
[2023-02-05 05:44] LABS: Alanine Aminotransferase 9 U/L (0-31); Albumin Level 3.9 g/dL (3.5-5.0); Alkaline Phosphatase 41 U/L (39-117); Anion Gap 13 (12-20); Aspartate Amino Transferase 11 U/L (5-31); Bilirubin Total 0.5 mg/dL (0.0-1.0); Blood Urea Nitrogen 11 mg/dL (9-16); Calcium 8.9 mg/dL (8.4-10.2); Carbon Dioxide 24 mmol/L (22-29); Chloride 111 mmol/L (96-108); Creatinine Clr Calc Pharmacy 73.7; Estimated Glomerular Filt Rate > 60; Glucose Random 105 mg/dL (60-115); Sodium 144 mmol/L (135-145); Total Protein 6.2 g/dL (6.5-8.0)
[2023-02-05] MEDS: HYDROmorphone HCl 2 MG/ML VIAL 1.5 MG IVPUSH (06:24)
--- NOTE | 2023-02-05 08:38 | PC.NURSE ---
pt reporting that she wants to go home. she reports that she is not being helped by the pain medication here and that she is uncomfortable and nauseas , and that she would rather be uncomfortable at home. I offered the pt chino and informed her that she had received IV dilaudid at 6:24 this morning. pt reprots that she does not care and wants to go home. Dr. Self made aware via [employer]
[2023-02-05] MEDS: HYDROmorphone HCl 2 MG/ML VIAL IVPUSH ×3 (10:19→20:02)
[2023-02-05] MEDS: 0.9 % Sodium Chloride Flush 3 ML SYRINGE IVFLUSH ×2 (10:23→20:03)
[2023-02-05] MEDS: Lactated Ringers 1,000 ML 125 ML IVCONT ×2 (10:37→20:11)
--- NOTE | 2023-02-05 10:39 | P.CNPAIN_ITS ---
Review of Systems Constitutional: Constitutional: Reports no additional constitutional complaints Cardiovascular: Cardiovascular: Reports no additional cardiovascular complaints Respiratory: Respiratory: Reports no additional respiratory complaints Gastrointestinal: Gastrointestinal: Reports abdominal pain, Reports belching, Reports nausea and Reports vomiting Genitourinary: Genitourinary: Reports no additional female genitourinary complaints Musculoskeletal: Musculoskeletal: Reports as per HPI Neurologic: Denies Abnormal speech present Psychiatric: Psychiatric: Reports abnormal sleep pattern Endocrine: Endocrine: Reports no additional endocrine complaints Hematologic/Lymphatic: Hematologic/Lymphatic: Reports as per HPI Allergic/Immunologic: Allergic/Immunologic: Reports as per HPI PMF Past Medical History Medical History Pulmonary emboli Absence seizure disorder DVT (deep venous thrombosis) Pyloric stenosis Asthma Common variable immunodeficiency Spondylolisthesis, lumbar region Spondylosis of lumbar region without myelopathy or radiculopathy Abdominal pain, chronic, generalized Gastroparesis Spontaneous pneumothorax Abdominal pain Chronic pain syndrome Cervicalgia Low back pain Crohn's disease Behcet's disease Surgical History History of hernia surgery Family History Family History Father Hairy cell leukemia Social History Social History Household Members: Children Household Members Other:: son [facility] Do you presently have visiting nurse or other home services: No Alcohol intake: never Patient Tobacco Use Status: Never used Tobacco Advance Directives Date on File: 03/12/21 service: No Current occupational status: unemployed Physical Exam Vital Signs: Vital Signs: Last Vital Signs Temp 98.3 F 02/05/23 06:25 Pulse 80 02/05/23 06:25 Resp 18 02/05/23 06:25 BP 143/78 H 02/05/23 06:25 Pulse Ox 100 02/05/23 06:25 O2 Del Method Room Air 02/05/23 06:25 BMI result Body Mass Index 27.7 Const: Other: appears moderately anxious General: cooperative, alert, awake, acute distress, anxious, ill appearing and tired appearing Orientation/consciousness: patient oriented x3 Limitations: physical limitations ( Will be confined to bed for the next 72 hours) HEENT: Head: Yes normocephalic and Yes atraumatic Ears: hearing grossly normal bilaterally Mouth: abnormal oral mucosae ( lips are dry and scaly, tongue is dry on inspection.) Eyes: General: appearance normal, both eyes and all related structures Eyelids: Yes eyelids normal Pupils: Equal, round and reactive pupils present EOM: EOMs intact bilaterally Neck: Neck: Yes normal visual inspection, Yes full ROM, Yes no meningeal signs, Yes trachea midline, Yes supple and Yes no JVD Chest: Chest palpation & inspection: normal inspection of the chest Resp: Effort & Inspection: normal respiratory effort, able to speak in complete sentences, no audible wheezes and no cough Cardio: Rate: regular rate Rhythm: regular rhythm GI: Inspection: Yes normal to inspection, Yes incision and Yes scar Back/Spine/Pelvis: Back: ecchymosis ( in the projection of the incisions: 1 midline and 1 left buttock.) Neuro: General: patient oriented x3, gait normal, moves all extremities, no meningeal signs and Unable to assess gait ( Confined to bed) Cranial nerves: Yes Intact sense of smell present, Yes Equal, round and reactive pupils present, Yes Bilaterally intact EOM present, Yes Nystagmus not present, Yes Normal facial strength present and Yes Midline tongue present Cognition (Neuro): normal cognition Speech: No Abnormal speech present Gait exam (Neuro): Unable to assess gait ( Confined to bed) Motor exam (neuro): 5/5 motor strength present throughout, no tremor noted, Motor fasciculations not present and Motor abnormalities not present Extrem: General: Yes normal to inspection, Yes no joint enlargement and No edema Assessment and Plan (1) Chronic, continuous use of opioids: Status: Acute (2) Immunosuppression: Status: Acute (3) Spondylolisthesis, lumbar region: Status: Acute (4) Spondylosis of lumbar region without myelopathy or radiculopathy: Status: Acute (5) Chronic pain syndrome: Status: Acute (6) Abdominal pain: Status: Acute (7) Chronic pain: Status: Acute (8) Postdural puncture headache: Status: Acute Plan Because of multiple problems that this patient has and because the surgery was performed only 48 hours ago epidural blood patch will be difficult to perform technically and is not recommended at this time. Therefore the following is recommended for the patient: 1.for the past 16 hours the patient was not able to receive her regular TPN treatment. She should be started on her regular TPN treatment AP. She should have additional intravenous access to be established LADI. 2.She also would supposed to be aggressively hydrated with at least 100 ml of LR for the next 72 hours. On top of that patient should receive oral hydration with caffeine containing beverages. They could be Coca-Cola, Pepsi Cola or Dr. Diaz according to the patient's desires. Alternatively strong coffee could be given to the patient every 4 hours . Dark chocolate also strongly recommended. 3.The patient should remain in bed for the next 72 hours without bathroom trips, she needs to stay in bed with the head below the level of the chest. The bed should be in at least 10 degree Trendelenburg position. 4.She should receive her intravenous antibiotics clindamycin 300 mg IV every 6 hours. 5.She should continue her Dilaudid 1 mg IV p.r.n. pain every 4 hours. She needs to continue her antiemetic chronic medications Benadryl 25-50 mg and ondansetron 4 mg. she needs to continue her Eliquis 5 mg b.i.d. for anticoagulation - this is her chronic medication. It is designed to prevent stroke for Behcet disease but it also will prevent her from developing blood clots in the lower extremities. 6.If she has difficulty breathing in Trendelenburg position she may be administered oxygen 2-3 L per minute. 7.The patient should receive Colace for maintaining soft stool at least once a day. She cannot bear down or increase her intra-abdominal pressure. 8.She may receive Fioricet 1 tablet orally p.r.n. headache every 4 hours if her headache is very severe. Time Spent With Patient Time: Total time managing care of this patient today __60__ minutes.
--- NOTE | 2023-02-05 10:48 | PHA.MEDREC ---
Addendum entered by Henry Padron [facility] 02/05/23 10:48: PATIENT STATED SHE SHOULD BE ON APIXABAN BUT HASNT TAKEN IT FOR OVER A MONTH Original Note: Pharmacy Consult ? Medication Reconciliation Pharmacy has completed the medication reconciliation.
[2023-02-05] MEDS: diphenhydrAMINE HCL 50 MG/ML VIAL 25 MG IVPUSH ×3 (10:59→20:02)
--- NOTE | 2023-02-05 11:39 | PC.NURSE ---
asked pt to have son send photo order of TPN order form
--- NOTE | 2023-02-05 11:47 | PC.NURSE ---
Haydee GONZÁLES placed 20G IV in LAC ultrasound guided
[2023-02-05] MEDS: Clindamycin Phosphate/D5W 300 MG/50 ML PIGGYBACK 100 MG IV ×3 (11:52→22:46)
--- NOTE | 2023-02-05 12:00 | PC.NURSE ---
pts son sent her a maintenance mechanic of her TPN order. t/w sent photo to pharmacy to order pts TPN
[2023-02-05] MEDS: Heparin Sodium,Porcine Flush 50 UNITS, 0.9 % Sodium Chloride Flush 5 ML IVFLUSH (12:20)
[2023-02-05 12:46] LABS: Triglycerides 74 mg/dL (<150)
[2023-02-05 12:51] LABS: Magnesium 2.2 mg/dL (1.6-2.6); Phosphorus 3.6 mg/dL (2.7-4.5)
[2023-02-05] MEDS: Omeprazole 20 MG CAPSULE.DR PO (13:54)
[2023-02-05] MEDS: Promethazine HCL 25 MG TABLET PO (13:55)
--- NOTE | 2023-02-05 15:58 | PM.EVENT ---
Event Note Date of Service: 02/05/23 Event Note: Day hospitalist update S: c/o severe headache + nausea O: VS- T 98.1, BP 125/71, P 67, R 16, SaO2 97 on RA gen- in pain lungs- clear bilaterally CV- RRR no m/r/g abd- soft/NT ext- no edema neuro- AAOx3, normal strength A/P: d1 42yo F with Crohn's disease with TPN dependence, Behcets disease on adalimumab, chronic back pain on hydromorphone POD#2 intrathecal pain pump presenting with severe post-dural puncture headache post-dural puncture headache - Pain Mgmt consulted: bedrest x72h with 10 deg Trendelenberg - LR hydration, encourage PO caffeine intake - IV hydromorphone, prn Fioricet intrathecal pain pump - clindamycin for 14d postoperatively per Dr Pedroza FEN - resume home TPN, will order through Pharmacy - ondansetron + diphenhydramine for nausea hx DVT/PE - continue apixaban asthma - continue home inhalers- Breo, Incruse, prn albuterol seizure disorder - continue levetiracetam VTE ppx - on apixaban dispo - TBD In my clinical judgment, the patient requires continued hospitalization for the following reasons: post-dural puncture headache Time Spent With Patient Time: Total time managing care of this patient today ____ minutes.
[2023-02-05] MEDS: Apixaban 5 MG TABLET PO (17:08)
[2023-02-05] MEDS: Butalb/Acetamin/Caff 50/325/40 TABLET 1 TAB PO (22:50)
[2023-02-06] MEDS: diphenhydrAMINE HCL 50 MG/ML VIAL 25 MG IVPUSH ×5 (00:45→20:01)
[2023-02-06] MEDS: HYDROmorphone HCl 2 MG/ML VIAL IVPUSH ×5 (00:45→19:59)
[2023-02-06] MEDS: ondansetron HCL 4 MG/2 ML VIAL IVPUSH ×5 (00:45→20:00)
[2023-02-06 03:28] VITALS: BP 105/58; PULSE 77; RESP 20; TEMP 36.3; O2SAT 94
[2023-02-06] MEDS: Lactated Ringers 1,000 ML 125 ML IVCONT ×2 (03:59→12:34)
[2023-02-06] MEDS: Clindamycin Phosphate/D5W 300 MG/50 ML PIGGYBACK 100 MG IV ×3 (04:45→22:44)
[2023-02-06 06:38] LABS: Anion Gap 13 (12-20); Blood Urea Nitrogen 10 mg/dL (9-16); Calcium 8.9 mg/dL (8.4-10.2); Carbon Dioxide 26 mmol/L (22-29); Chloride 104 mmol/L (96-108); Creatinine Clr Calc Pharmacy 92.9; Estimated Glomerular Filt Rate > 60; Glucose Random 139 mg/dL (60-115); Magnesium 2.1 mg/dL (1.6-2.6); Phosphorus 2.5 mg/dL (2.7-4.5); Potassium 3.7 mmol/L (3.3-5.1); Sodium 139 mmol/L (135-145)
[2023-02-06 07:12] VITALS: BP 118/67; PULSE 73; RESP 16; TEMP 36.1; O2SAT 95
--- NOTE | 2023-02-06 10:37 | HO.PM.IMPN ---
Subjective Subjective Date of Service: 02/06/23 Interval History: SINGLETON was a little better overnight, now severe again N/V no fever Review of Systems Review of Systems: Yes all other systems are reviewed and are negative Physical Exam Vital Signs: Vital Signs: Last Vital Signs Temp 97.0 F 02/06/23 07:12 Pulse 73 02/06/23 07:12 Resp 16 02/06/23 07:12 BP 118/67 02/06/23 07:12 Pulse Ox 95 02/06/23 07:12 O2 Del Method Room Air 02/06/23 07:12 BMI result Body Mass Index 30.5 Gen: lying down, c/o nausea HEENT: sclera anicteric, moist mucus membranes Neck: supple Lungs: clear to auscultation bilaterally Heart: regular rate and rhythm, no murmurs Abd: soft, non-tender, non-distended Ext: no edema Skin: warm/well-perfused Neuro: alert and oriented x3, no focal findings Psych: appropriate affect Objective Data Active Medications Acetaminophen (Acetaminophen 325 Mg Tablet) 650 mg PO Q6H PRN PRN Reason: Pain, Mild (Pain Scale 1-3) Acetaminophen/Butalbital/Caffeine (Butalb/Acetamin/Caff 50/325/40 Tablet) 1 tab PO Q4H PRN PRN Reason: Headache Last Admin: 02/05/23 22:50 Dose: 1 tab Documented By: FAUSTINO Albuterol Sulfate (Albuterol Sulfate 90 Mcg 8 Gm Inhaler) 2 puff INHALE Q4H PRN PRN Reason: Wheezing Apixaban (Apixaban 5 Mg Tablet) 5 mg PO BID@0800,1700 [facility] Last Admin: 02/06/23 09:05 Dose: Not Given Documented By: CHING Non-Admin Reason: Nausea Heparin Sodium (Porcine) 50 (units/ Sodium Chloride 5 ml) 0 units IVFLUSH DAILY [facility] Last Admin: 02/06/23 09:05 Dose: Not Given Documented By: CHING Non-Admin Reason: IV Running Diphenhydramine HCl (Diphenhydramine Hcl 50 Mg/Ml Vial) 25 mg IVPUSH Q4H PRN PRN Reason: Nausea and Vomiting Last Admin: 02/06/23 08:59 Dose: 25 mg Documented By: CHING Docusate Sodium (Docusate Sodium 100 Mg Capsule) 100 mg PO BEDTIME [facility] Last Admin: 02/05/23 21:23 Dose: Not Given Documented By: FAUSTINO Non-Admin Reason: Patient Refused Fluticasone/Vilanterol (Fluticasone/Vilanterol 200/25 Blst.W.Dev) 1 puff INHALE RDAILY [facility] Last Admin: 02/06/23 08:21 Dose: Not Given Documented By: KARIE Non-Admin Reason: Patient Refused Hydromorphone HCl (Hydromorphone Hcl 2 Mg/Ml Vial) 2 mg IVPUSH Q4H PRN; Protocol PRN Reason: Pain, Severe (Pain Scale 7-10) Last Admin: 02/06/23 08:59 Dose: 2 mg Documented By: CHING Clindamycin Phosphate (Cleocin) 300 mg in 50 mls @ 100 mls/hr IV Q6H [facility] Last Infusion: 02/06/23 05:15 Dose: Infused Documented By: FAUSTINO Lactated Ringer's (Lr) 1,000 mls @ 125 mls/hr IVCONT .Q8H [facility] Last Admin: 02/06/23 03:59 Dose: 125 mls/hr Documented By: FAUSTINO Nutrition (Parenteral) (Parenteral Nutrition) 2,350 mls @ 97.92 mls/hr IV .Q24H [facility]; Protocol Stop: 02/06/23 20:59 Last Admin: 02/05/23 21:43 Dose: 97.92 mls/hr Documented By: FAUSTINO Promethazine HCl 12.5 mg/ (Sodium Chloride) 50.5 mls @ 202 mls/hr IV Q4H PRN PRN Reason: nausea/vomiting Levetiracetam 750 mg/ Sodium (Chloride) 107.5 mls @ 430 mls/hr IV Q12H [facility] Levetiracetam (Levetiracetam 500 Mg/5 Ml Vial) 700 mg IV BID [facility] Melatonin (Melatonin 3 Mg Tablet) 6 mg PO BEDTIME PRN PRN Reason: Insomnia Non-Formulary Medication (Umeclidinium [Incruse Ellipta]) 1 inhalation INHALE DAILY [facility] Omeprazole (Omeprazole 20 Mg Capsule.Dr) 20 mg PO DAILY@0630 [facility] Last Admin: 02/06/23 05:00 Dose: Not Given Documented By: FAUSTINO Non-Admin Reason: Patient Refused Ondansetron HCl (Ondansetron Hcl 4 Mg/2 Ml Vial) 4 mg IVPUSH Q4H PRN PRN Reason: Nausea and Vomiting Last Admin: 02/06/23 08:59 Dose: 4 mg Documented By: CHING Pharmacy Consult (Consult Rx Parenteral Nutrition Ordering) 1 each MISCELLANE DAILY [facility]NA Sodium Chloride (0.9 % Sodium Chloride Flush 3 Ml Syringe) 3 ml IVFLUSH QSHIFT [facility]NA Last Admin: 02/06/23 08:42 Dose: Not Given Documented By: CHING Non-Admin Reason: IV Running Labs 02/04/23 21:04 02/06/23 05:17 Labs: Laboratory Results - last 24 hr 02/05/23 02/06/23 12:34 05:17 Anion Gap 13 Estim Creat Clear Calc 92.9 Estimated GFR > 60 Random Glucose 139 H Calcium 8.9 Phosphorus 3.6 2.5 L Magnesium 2.2 2.1 Triglycerides 74 Assessment and Plan (1) Chronic pain syndrome: Status: Acute (2) Postdural puncture headache: Status: Acute Assessment and Plan: d2 42yo F with Crohn's disease with TPN dependence, Behcets disease on adalimumab, chronic back pain on hydromorphone s/p intrathecal pain pump placed 02/03/[address] Pedroza presenting with severe post-dural puncture headache post-dural puncture headache - Pain Mgmt consulted: bedrest x72h with 10 deg Trendelenberg - LR hydration, encourage PO caffeine intake - IV hydromorphone, prn Fioricet intrathecal pain pump - clindamycin for 14d postoperatively per Dr Pedroza FEN - resumed home TPN - ondansetron + diphenhydramine for nausea, will add IV promethazine hx DVT/PE - continue apixaban asthma - continue home inhalers- Breo, Incruse, prn albuterol seizure disorder - continue levetiracetam- change to IV as currently PO intolerant VTE ppx - on apixaban dispo - TBD In my clinical judgment, the patient requires continued hospitalization for the following reasons: post-dural puncture headache Plan Because of multiple problems that this patient has and because the surgery was performed only 48 hours ago epidural blood patch will be difficult to perform technically and is not recommended at this time. Therefore the following is recommended for the patient: 1.for the past 16 hours the patient was not able to receive her regular TPN treatment. She should be started on her regular TPN treatment AP. She should have additional intravenous access to be established LADI. 2.She also would supposed to be aggressively hydrated with at least 100 ml of LR for the next 72 hours. On top of that patient should receive oral hydration with caffeine containing beverages. They could be Coca-Cola, Pepsi Cola or Dr. Diaz according to the patient's desires. Alternatively strong coffee could be given to the patient every 4 hours . Dark chocolate also strongly recommended. 3.The patient should remain in bed for the next 72 hours without bathroom trips, she needs to stay in bed with the head below the level of the chest. The bed should be in at least 10 degree Trendelenburg position. 4.She should receive her intravenous antibiotics clindamycin 300 mg IV every 6 hours. 5.She should continue her Dilaudid 1 mg IV p.r.n. pain every 4 hours. She needs to continue her antiemetic chronic medications Benadryl 25-50 mg and ondansetron 4 mg. she needs to continue her Eliquis 5 mg b.i.d. for anticoagulation - this is her chronic medication. It is designed to prevent stroke for Behcet disease but it also will prevent her from developing blood clots in the lower extremities. 6.If she has difficulty breathing in Trendelenburg position she may be administered oxygen 2-3 L per minute. 7.The patient should receive Colace for maintaining soft stool at least once a day. She cannot bear down or increase her intra-abdominal pressure. 8.She may receive Fioricet 1 tablet orally p.r.n. headache every 4 hours if her headache is very severe. Time Spent With Patient Time: Total time managing care of this patient today _35___ minutes. Quality Stroke Does the patient have a stroke diagnosis?: No VTE Prior VTE?: No VTE Risk Level:: Medical - moderate - high VTE Device Contraindication: Treatment Not Indicated VTE Drug Contraindication: N/A - Med Ordered
[2023-02-06] MEDS: Ketorolac Tromethamine 15 MG/ML VIAL IVPUSH ×2 (12:05→22:44)
[2023-02-06] MEDS: levETIRAcetam 750 MG in 0.9 % Sodium Chloride 100 ML 430 MG IV ×2 (12:34→23:38)
--- NOTE | 2023-02-06 15:22 | PC.NURSE ---
Pt primary nurse asked for assistance with delivery of IV medications this afternoon. Pt in bed sleeping, snoring. Was woken by primary nurse and ask for pain meds. Pain meds not do when patient asked for them. Patient was check on when they were due and patient was asleep and snoring in her bed. Patient was not woken by staff so she could rest and sleep. Medications where waisted by this sba underwriter as a witness to primary nurse in the medication pyxis.
[2023-02-06 16:00] VITALS: BP 134/77; PULSE 74; RESP 18; TEMP 36.6; O2SAT 92
--- NOTE | 2023-02-06 16:02 | MHC.CM.PN ---
CCM ATTEMPTED TO MEET WITH PT WHO WAS SLEEPING COMFORTABLY CM WILL RETURN
[2023-02-06 20:00] VITALS: BP 132/65; PULSE 73; RESP 22; TEMP 36.1; O2SAT 94
[2023-02-07] MEDS: HYDROmorphone HCl 2 MG/ML VIAL IVPUSH ×5 (01:27→22:33)
[2023-02-07] MEDS: diphenhydrAMINE HCL 50 MG/ML VIAL 25 MG IVPUSH ×5 (01:28→22:40)
[2023-02-07] MEDS: ondansetron HCL 4 MG/2 ML VIAL IVPUSH ×4 (01:29→18:37)
[2023-02-07 04:00] VITALS: BP 142/82; PULSE 70; RESP 18; TEMP 36; O2SAT 98
[2023-02-07] MEDS: Lactated Ringers 1,000 ML 125 ML IVCONT (04:19)
[2023-02-07] MEDS: Clindamycin Phosphate/D5W 300 MG/50 ML PIGGYBACK 100 MG IV ×4 (05:18→22:34)
[2023-02-07 07:28] VITALS: BP 146/74; PULSE 68; RESP 18; TEMP 36.1; O2SAT 98
--- NOTE | 2023-02-07 08:58 | MHC.CM.PN ---
CM ATTEMPTED TO MEET WITH PT AGAIN, PT SLEEPING SOUNDLY AND DOES NOT RESPOND TO NAME CM WILL REVISIT WHEN PT IS AWAKE DUE TO PTS DOCUMENTED PAIN LEVELS, CM DID NOT CONTINUE TO TRY TO WAKE PT WHO APPEARED COMFORTABLE
[2023-02-07 09:19] LABS: Anion Gap 11 (12-20); Blood Urea Nitrogen 10 mg/dL (9-16); Calcium 8.9 mg/dL (8.4-10.2); Carbon Dioxide 25 mmol/L (22-29); Chloride 108 mmol/L (96-108); Creatinine Clr Calc Pharmacy 90.2; Estimated Glomerular Filt Rate > 60; Glucose Random 125 mg/dL (60-115); Magnesium 2.4 mg/dL (1.6-2.6); Phosphorus 1.9 mg/dL (2.7-4.5); Potassium 3.6 mmol/L (3.3-5.1); Sodium 140 mmol/L (135-145)
[2023-02-07] MEDS: levETIRAcetam 750 MG in 0.9 % Sodium Chloride 100 ML 430 MG IV ×2 (12:00→23:06)
[2023-02-07] MEDS: Caffeine/Sodium Benzoate 500 MG in 0.9 % Sodium Chloride 1,000 ML 1002 MG IV (12:29)
[2023-02-07] MEDS: Potassium Phosphate/NS 15 MMOL/250 ML PLAST..BAG 62.5 MMOL IV (13:01)
[2023-02-07 14:14] VITALS: BMI 30.5
--- NOTE | 2023-02-07 14:26 | MHC.CLN ---
NUTRITION PATEINT RECEIVING TPN. DIET=REGULAR. INTAKE MOST MEALS 0-25%. TPN ORDERED PER HOME ADMINISTRATION. PROTEIN 70 g; DEXTROSE 200 G; LIPIDS 50 G (X 5 DAYS, NOT ON TUESDAY OR TUESDAY). TPN WITH LIPIDS PROVIDES 1460 KCALS (29.6 KCALS/KG CMW); 70 G PROTEIN (1.4 G/KG CMW). LABS REVIEWED. COMMUNICATED WITH PHARMACY. RECOMMEND CONTINUE CURRENT TPN ORDERS. FOLLOW LYTES, INTAKE, TPN TOLERANCE.
--- NOTE | 2023-02-07 14:55 | P.PNIM_ITS ---
Subjective Subjective Date of Service: 02/07/23 Interval History: Complaining of persistent nausea and headache , feels headache is a little better but unable to keep food down, no fevers, no chills no other acute issues overnight. Review of Systems All other system reviewed and negative Physical Exam 2 Vital Signs: Vital Signs: Last Vital Signs Temp 97 F 02/07/23 07:28 Pulse 68 02/07/23 07:28 Resp 18 02/07/23 07:28 BP 146/74 H 02/07/23 07:28 Pulse Ox 98 02/07/23 07:28 O2 Del Method Room Air 02/07/23 07:28 BMI result Body Mass Index 30.5 Const: Other: Gen: lying flat, mild distress due to nausea and headache HEENT: sclera anicteric, moist mucus membranes Neck: supple Lungs: clear to auscultation bilaterally Heart: regular rate and rhythm, no murmurs Abd: soft, non-tender, non-distended Ext: no edema Skin: warm/well-perfused Neuro: alert and oriented x3, no focal findings Psych: appropriate affect Objective Data Active Medications Acetaminophen (Acetaminophen 325 Mg Tablet) 650 mg PO Q6H PRN PRN Reason: Pain, Mild (Pain Scale 1-3) Acetaminophen/Butalbital/Caffeine (Butalb/Acetamin/Caff 50/325/40 Tablet) 1 tab PO Q4H PRN PRN Reason: Headache Last Admin: 02/05/23 22:50 Dose: 1 tab Documented By: FAUSTINO Acetaminophen/Butalbital/Caffeine (Butalb/Acetamin/Caff 50/325/40 Tablet) 1 tab PO Q4H PRN PRN Reason: Headache Albuterol Sulfate (Albuterol Sulfate 90 Mcg 8 Gm Inhaler) 2 puff INHALE Q4H PRN PRN Reason: Wheezing Apixaban (Apixaban 5 Mg Tablet) 5 mg PO BID@0800,1700 [facility] Last Admin: 02/07/23 11:12 Dose: Not Given Documented By: MORENA Non-Admin Reason: Nausea Heparin Sodium (Porcine) 50 (units/ Sodium Chloride 5 ml) 0 units IVFLUSH DAILY [facility] Last Admin: 02/07/23 12:30 Dose: Not Given Documented By: MORENA Non-Admin Reason: IV Running Diphenhydramine HCl (Diphenhydramine Hcl 50 Mg/Ml Vial) 25 mg IVPUSH Q4H PRN PRN Reason: Nausea and Vomiting Last Admin: 02/07/23 14:21 Dose: 25 mg Documented By: MORENA Docusate Sodium (Docusate Sodium 100 Mg Capsule) 100 mg PO BEDTIME [facility] Last Admin: 02/06/23 20:12 Dose: Not Given Documented By: JANELLE Non-Admin Reason: Nausea Fluticasone/Vilanterol (Fluticasone/Vilanterol 200/25 Blst.W.Dev) 1 puff INHALE RDAILY [facility] Last Admin: 02/07/23 07:56 Dose: Not Given Documented By: MO Non-Admin Reason: Patient Refused Hydromorphone HCl (Hydromorphone Hcl 2 Mg/Ml Vial) 2 mg IVPUSH Q4H PRN; Protocol PRN Reason: Pain, Severe (Pain Scale 7-10) Last Admin: 02/07/23 14:21 Dose: 2 mg Documented By: MORENA Clindamycin Phosphate (Cleocin) 300 mg in 50 mls @ 100 mls/hr IV Q6H [facility] Last Infusion: 02/07/23 12:51 Dose: Infused Documented By: MORENA Promethazine HCl 12.5 mg/ (Sodium Chloride) 50.5 mls @ 202 mls/hr IV Q4H PRN PRN Reason: nausea/vomiting Last Infusion: 02/07/23 05:55 Dose: Infused Documented By: JANELLE Levetiracetam 750 mg/ Sodium (Chloride) 107.5 mls @ 430 mls/hr IV Q12H [facility] Last Infusion: 02/07/23 13:01 Dose: Infused Documented By: MORENA Nutrition (Parenteral) (Parenteral Nutrition) 2,350 mls @ 97.92 mls/hr IV .Q24H [facility]; Protocol Stop: 02/07/23 20:59 Last Infusion: 02/06/23 23:44 Dose: 97.92 mls/hr Documented By: JANELLE Lactated Ringer's (Lr) 1,000 mls @ 100 mls/hr IVCONT .Q10H [facility] Potassium Phosphate (Kphos) 15 mmol in 250 mls @ 62.5 mls/hr IV ONCE ONE Stop: 02/07/23 15:35 Last Admin: 02/07/23 13:01 Dose: 62.5 mls/hr Documented By: MORENA Nutrition (Parenteral) (Parenteral Nutrition) 2,350 mls @ 97.92 mls/hr IV .Q24H [facility]; Protocol Stop: 02/08/23 20:59 Melatonin (Melatonin 3 Mg Tablet) 6 mg PO BEDTIME PRN PRN Reason: Insomnia Omeprazole (Omeprazole 20 Mg Capsule.) 20 mg PO DAILY@0630 [facility] Last Admin: 02/07/23 05:58 Dose: Not Given Documented By: JANELLE Non-Admin Reason: Nausea Ondansetron HCl (Ondansetron Hcl 4 Mg/2 Ml Vial) 4 mg IVPUSH Q4H PRN PRN Reason: Nausea and Vomiting Last Admin: 02/07/23 14:21 Dose: 4 mg Documented By: MORENA Pharmacy Consult (Consult Rx Parenteral Nutrition Ordering) 1 each MISCELLANE DAILY [facility] Sodium Chloride (0.9 % Sodium Chloride Flush 3 Ml Syringe) 3 ml IVFLUSH QSHIFT [facility] Last Admin: 02/07/23 11:12 Dose: Not Given Documented By: MORENA Non-Admin Reason: IV Running Tiotropium [place] (Tiotropium [place] 2.5 Mcg Inhaler) 2 puff INHALE RDAILY [facility] Labs 02/04/23 21:04 02/07/23 08:32 Labs: Laboratory Results - last 24 hr 02/07/23 08:32 Anion Gap 11 L Estim Creat Clear Calc 90.2 Estimated GFR > 60 Random Glucose 125 H Calcium 8.9 Phosphorus 1.9 L Magnesium 2.4 Assessment and Plan (1) Chronic pain syndrome: Status: Acute (2) Postdural puncture headache: Status: Acute Assessment and Plan: 42yo F with Crohn's disease with TPN dependence, 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 home TPN -continue prn ondansetron + diphenhydramine for nausea, and IV promethazine hx DVT/PE continue apixaban Mild intermittent asthma no acute exacerbation - continue home inhalers- Breo, Incruse, prn albuterol seizure disorder - continue levetiracetam IV as currently PO intolerant,sz precautions VTE ppx - on apixaban dispo - TBD In my clinical judgment, the patient requires continued hospitalization for the following reasons: post-dural puncture headache Plan Time Spent With Patient Time: Total time managing care of this patient today ____ minutes. Quality Stroke Does the patient have a stroke diagnosis?: No VTE Prior VTE?: No VTE Risk Level:: Medical - moderate - high VTE Device Contraindication: Treatment Not Indicated VTE Drug Contraindication: N/A - Med Ordered
--- NOTE | 2023-02-07 15:41 | MHC.CM.PN ---
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
[2023-02-07 15:42] VITALS: BP 133/67; PULSE 64; RESP 20; TEMP 36.3; O2SAT 95
[2023-02-07] MEDS: Lactated Ringers 1,000 ML 100 ML IVCONT ×2 (15:52→22:35)
[2023-02-07] MEDS: Apixaban 5 MG TABLET PO (17:51)
[2023-02-07 19:34] VITALS: BP 133/64; PULSE 71; RESP 18; TEMP 36.4; O2SAT 95
[2023-02-07 20:00] VITALS: BP 110/57; PULSE 66; RESP 16; TEMP 36.3; O2SAT 93
[2023-02-07] MEDS: Docusate Sodium 100 MG CAPSULE PO (20:24)
[2023-02-07] MEDS: Melatonin 3 MG TABLET 6 MG PO (20:24)
[2023-02-08] MEDS: Butalb/Acetamin/Caff 50/325/40 TABLET 1 TAB PO ×2 (02:29→22:04)
[2023-02-08] MEDS: HYDROmorphone HCl 2 MG/ML VIAL IVPUSH ×6 (02:30→22:58)
[2023-02-08] MEDS: ondansetron HCL 4 MG/2 ML VIAL IVPUSH ×4 (02:35→19:52)
[2023-02-08] MEDS: diphenhydrAMINE HCL 50 MG/ML VIAL 25 MG IVPUSH ×4 (02:35→19:51)
[2023-02-08 03:09] VITALS: BP 107/58; PULSE 79; RESP 16; TEMP 36.4; O2SAT 93
[2023-02-08] MEDS: Clindamycin Phosphate/D5W 300 MG/50 ML PIGGYBACK 100 MG IV ×4 (05:07→22:06)
[2023-02-08] MEDS: Omeprazole 20 MG CAPSULE.DR PO (05:16)
--- NOTE | 2023-02-08 06:31 | P.CNGI_ITS ---
History of Present Illness Data of Consult Service Date: 02/08/23 Requesting physician: Laureen Womack Primary Care Provider: Unknown Physician HPI Reason for consult: poor po intake 42-year-old female with history of chronic pain, crohns,behcets, seizure disorder, DVT/PE on Eliquis, asthma who I am asked to see for poor PO intake after she presented to the emergency department for evaluation of headache s/p intrathecal pain pump insertion. She had been having frontal headaches with nausea since pump insertion last week. It has been progressive and 10/10, sharp in nature and going across her head, noted to be associated with photophobia but no vision changes. Patient denies fever, chills, chest discomfort, palpitations, shortness of breath, abdominal pain, changes in urinary or bowel habits. She feels her crohns and behcets is controlled with humira which she has been taking for several months. Review of Systems 2 Review of Systems: Constitutional : No Weight loss, No Fever, No Chills ENT/Mouth : No sore throat, No Rhinorrhea Eyes: No Swelling, No Redness Cardiovascular : No Chest Pain, No SOB, No Edema Respiratory : No Cough, No Sputum, No Wheezing Gastrointestinal : see HPI Genitourinary : NO Dysuria, No Urinary Frequency, No Hematuria, No Urgency Musculoskeletal : No joint pain, No Myalgias, No Joint Swelling Skin : No Skin Lesions, No rash Neuro : No Weakness, No Numbness, No Dizziness, + Headache Psych : No Anxiety/Panic, No Depression Heme/Lymph: No Bruising, No Lymphadenopathy Endocrine : No Polyuria, No Polydipsia All other systems reviewed and are negative. [facility] Past Medical History Medical History Pulmonary emboli Absence seizure disorder DVT (deep venous thrombosis) Pyloric stenosis Asthma Common variable immunodeficiency Spondylolisthesis, lumbar region Spondylosis of lumbar region without myelopathy or radiculopathy Abdominal pain, chronic, generalized Gastroparesis Spontaneous pneumothorax Abdominal pain Chronic pain syndrome Cervicalgia Low back pain Crohn's disease Behcet's disease Family History Family History Father Hairy cell leukemia Surgical History Surgical History History of hernia surgery Social History Social History Household Members: Children Household Members Other:: son Housing: Condominium Do you presently have visiting nurse or other home services: No Alcohol intake: never Patient Tobacco Use Status: Never used Tobacco Advance Directives Date on File: 03/12/21 service: No Current occupational status: unemployed Meds Allergies Allergy/AdvReac Type Severity Reaction Status Date / Time ciprofloxacin [Cipro] Allergy Unknown Hives Verified 02/03/23 10:35 levofloxacin [Levaquin] Allergy Unknown Hives Verified 02/03/23 10:35 metoclopramide [Reglan] Allergy Unknown Hives Verified 02/03/23 10:35 ondansetron [Zofran] Allergy Unknown Itching Verified 02/03/23 10:35 penicillin V Allergy Unknown Hives Verified 02/03/23 10:35 prochlorperazine Allergy Unknown Shortness Verified 02/03/23 10:35 [From Compazine] of Breath Sulfa (Sulfonamide Allergy Unknown Hives Verified 02/03/23 10:35 Antibiotics) thalidomide [From Thalomid] Allergy Unknown Rash Verified 02/03/23 10:35 haloperidol [From Haldol] Allergy Itching Verified 02/03/23 10:34 Active Medications: Current Medications Acetaminophen (Acetaminophen 325 Mg Tablet) 650 mg PO Q6H PRN PRN Reason: Pain, Mild (Pain Scale 1-3) Acetaminophen/Butalbital/Caffeine (Butalb/Acetamin/Caff 50/325/40 Tablet) 1 tab PO Q4H PRN PRN Reason: Headache Last Admin: 02/08/23 02:29 Dose: 1 tab Acetaminophen/Butalbital/Caffeine (Butalb/Acetamin/Caff 50/325/40 Tablet) 1 tab PO Q4H PRN PRN Reason: Headache Albuterol Sulfate (Albuterol Sulfate 90 Mcg 8 Gm Inhaler) 2 puff INHALE Q4H PRN PRN Reason: Wheezing Apixaban (Apixaban 5 Mg Tablet) 5 mg PO BID@0800,1700 [facility] Last Admin: 02/07/23 17:51 Dose: 5 mg Heparin Sodium (Porcine) 50 (units/ Sodium Chloride 5 ml) 0 units IVFLUSH DAILY [facility] Last Admin: 02/07/23 12:30 Dose: Not Given Diphenhydramine HCl (Diphenhydramine Hcl 50 Mg/Ml Vial) 25 mg IVPUSH Q4H PRN PRN Reason: Nausea and Vomiting Last Admin: 02/08/23 02:35 Dose: 25 mg Docusate Sodium (Docusate Sodium 100 Mg Capsule) 100 mg PO BEDTIME [facility] Last Admin: 02/07/23 20:24 Dose: 100 mg Fluticasone/Vilanterol (Fluticasone/Vilanterol 200/25 Blst.W.Dev) 1 puff INHALE RDAILY [facility] Last Admin: 02/07/23 07:56 Dose: Not Given Hydromorphone HCl (Hydromorphone Hcl 2 Mg/Ml Vial) 2 mg IVPUSH Q4H PRN; Protocol PRN Reason: Pain, Severe (Pain Scale 7-10) Last Admin: 02/08/23 02:30 Dose: 2 mg Clindamycin Phosphate (Cleocin) 300 mg in 50 mls @ 100 mls/hr IV Q6H [facility] Last Infusion: 02/08/23 05:42 Dose: Infused Promethazine HCl 12.5 mg/ (Sodium Chloride) 50.5 mls @ 202 mls/hr IV Q4H PRN PRN Reason: nausea/vomiting Last Infusion: 02/07/23 05:55 Dose: Infused Levetiracetam 750 mg/ Sodium (Chloride) 107.5 mls @ 430 mls/hr IV Q12H [facility] Last Infusion: 02/07/23 23:37 Dose: Infused Lactated Ringer's (Lr) 1,000 mls @ 100 mls/hr IVCONT .Q10H [facility] Last Admin: 02/07/23 22:35 Dose: 100 mls/hr Nutrition (Parenteral) (Parenteral Nutrition) 2,350 mls @ 97.92 mls/hr IV .Q24H [facility]; Protocol Stop: 02/08/23 20:59 Last Admin: 02/07/23 21:02 Dose: 97.92 mls/hr Melatonin (Melatonin 3 Mg Tablet) 6 mg PO BEDTIME PRN PRN Reason: Insomnia Last Admin: 02/07/23 20:24 Dose: 6 mg Omeprazole (Omeprazole 20 Mg Capsule.Dr) 20 mg PO DAILY@0630 [facility] Last Admin: 02/08/23 05:16 Dose: 20 mg Ondansetron HCl (Ondansetron Hcl 4 Mg/2 Ml Vial) 4 mg IVPUSH Q6H [facility] Last Admin: 02/08/23 02:35 Dose: 4 mg Pharmacy Consult (Consult Rx Parenteral Nutrition Ordering) 1 each MISCELLANE DAILY [facility] Sodium Chloride (0.9 % Sodium Chloride Flush 3 Ml Syringe) 3 ml IVFLUSH QSHIFT [facility] Last Admin: 02/08/23 01:05 Dose: Not Given Tiotropium [place] (Tiotropium [place] 2.5 Mcg Inhaler) 2 puff INHALE RDAILY [facility] Home Medications Medication Instructions Recorded Confirmed Last Taken Type albuterol sulfate 90 mcg/actuation 2 puff inhalation Q4H PRN Wheezing 12/12/20 02/05/23 02/04/23 History aerosol inhaler fluticasone furoate 200 1 inh inhalation Q24H 12/12/20 02/05/23 02/04/23 History mcg-vilanterol 25 mcg/dose inhalation powder (Breo Ellipta) umeclidinium 62.5 mcg/actuation 1 inh inhalation DAILY 12/12/20 02/05/23 02/04/23 History blister powder for inhalation (Incruse Ellipta) diphenhydramine HCl 50 mg/mL 25 mg IV QID PRN Nausea 03/12/21 02/05/23 02/04/23 History injection solution ondansetron HCl (PF) 4 mg/2 mL 4 mg IV QID PRN Nausea 03/12/21 02/05/23 02/04/23 History injection solution levetiracetam 100 mg/mL oral 700 mg PO BID 08/18/21 02/05/23 02/04/23 History solution (Keppra) promethazine 25 mg tablet 25 mg PO QID PRN Nausea And 08/18/21 02/05/23 02/04/23 History Vomiting adalimumab 40 mg/0.4 mL 40 mg subcut Q2W 02/05/23 02/05/23 02/04/23 History subcutaneous pen kit (Humira(CF) Pen) pantoprazole 40 mg tablet,delayed 40 mg PO DAILY PRN ACID REFLEX 02/05/23 02/05/23 02/04/23 History release Physical Exam 2 Vital Signs: Vital Signs: Last Vital Signs Temp 97.5 F 02/08/23 03:09 Pulse 79 02/08/23 03:09 Resp 16 02/08/23 03:09 BP 107/58 L 02/08/23 03:09 Pulse Ox 93 02/08/23 03:09 O2 Del Method Room Air 02/08/23 03:09 BMI result Body Mass Index 30.5 EXAM: GENERAL: The patient is slightly agitated, dystonic type movements VITAL SIGNS:see workflow HEENT: Nonicteric sclerae, PERRLA, EOMI. Oropharynx clear. Moist mucous membranes. Conjunctivae appear well perfused. No thyroid mass. CHEST: Chest wall is nontender. HEART: Regular rate and rhythm without murmurs. LUNGS: Clear to auscultation bilaterally. ABDOMEN: Soft, positive bowel sounds, nontender, no organomegaly.no flank tenderness SKIN: No rash, no excessive bruising, petechiae, or purpura. NEUROLOGIC: Cranial nerves II-XII intact without motor/sensory deficit. DIPTI, no neck stiffness Psych- nml affect Results Labs 02/08/23 09:36 02/08/23 05:55 Labs: BMP 02/07/23 08:32 Sodium 140 Potassium 3.6 Chloride 108 Carbon Dioxide 25 BUN 10 Creatinine 0.67 Calcium 8.9 Assessment and Plan (1) Postdural puncture headache: Status: Acute Plan 1/ Suspect her nausea is central nd not related to her crohn or behcets which she says has been well controlled with biologic therapy Plan: 1/ cont with current treatments for her nausea as she feels symptoms are slowly improving, if she develops abdominal pain, diarrhea etc can re evaluate. Time Spent With Patient Time: Total time managing care of this patient today ____ minutes. Procedures Date of Service Date of Service: 02/08/23
[2023-02-08 06:49] LABS: Anion Gap 15 (12-20); Blood Urea Nitrogen 12 mg/dL (9-16); Calcium 8.7 mg/dL (8.4-10.2); Carbon Dioxide 22 mmol/L (22-29); Chloride 107 mmol/L (96-108); Creatinine Clr Calc Pharmacy 92.9; Estimated Glomerular Filt Rate > 60; Glucose Random 130 mg/dL (60-115); Magnesium 2.2 mg/dL (1.6-2.6); Phosphorus 3.2 mg/dL (2.7-4.5); Sodium 140 mmol/L (135-145)
[2023-02-08 06:56] VITALS: BP 119/77; PULSE 75; RESP 17; TEMP 36.6; O2SAT 91
[2023-02-08] MEDS: Fluticasone/Vilanterol 200/25 BLST.W.DEV 1 PUFF INHALE (08:05)
[2023-02-08 08:10] VITALS: PULSE 72; RESP 16; O2SAT 90
[2023-02-08] MEDS: Enoxaparin Sodium 60 MG/0.6 ML SYRINGE SUBCUT ×2 (08:25→19:51)
[2023-02-08] MEDS: Lactated Ringers 1,000 ML 100 ML IVCONT (08:31)
[2023-02-08 10:14] LABS: Hematocrit 33.9 % (37.0-47.0); Hemoglobin 11.5 g/dl (12.0-16.0); Mean Corpuscular HGB Conc 33.9 g/dl (31.0-35.0); Mean Corpuscular Hemoglobin 29.8 pg (27.0-33.0); Mean Corpuscular Volume 87.8 fL (80.0-98.0); Mean Platelet Volume 10.9 fL (9.4-12.3); Platelet Count 176 X10*3/uL (160-400); Red Blood Count 3.86 X10*6/uL (4.20-5.50); Red Cell Distribution Width 12.7 % (11.0-16.0)
[2023-02-08 10:20] LABS: INTERNATIONAL NORM RATIO 1.2 (0.9-1.1); Prothrombin Time 14.4 SEC (11.1-13.3)
[2023-02-08 10:23] LABS: Partial Thromboplastin Time 33.4 SEC (26.0-36.4)
[2023-02-08] MEDS: levETIRAcetam 750 MG in 0.9 % Sodium Chloride 100 ML 430 MG IV ×2 (11:04→22:43)
--- NOTE | 2023-02-08 12:48 | PC.NURSE ---
Lost peripheral IV access. Per Dr Kasia young to stop TPN for 1 hour to administer Caffeine infusion . Possible central line placement later today.
--- NOTE | 2023-02-08 14:16 | P.PNIM_ITS ---
Subjective Subjective Date of Service: 02/08/23 Interval History: Feeling a little better this morning less nausea and headache, no bowel movement in last several days no fevers, no chills, continue to have poor by mouth intake, no other acute events overnight. Review of Systems All other system reviewed and negative Physical Exam 2 Vital Signs: Vital Signs: Last Vital Signs Temp 98 F 02/08/23 06:56 Pulse 72 02/08/23 08:10 Resp 16 02/08/23 08:10 BP 119/77 02/08/23 06:56 Pulse Ox 91 L 02/08/23 06:56 O2 Del Method Room Air 02/08/23 06:56 BMI result Body Mass Index 30.5 Const: Other: Gen: lying flat, no distress HEENT: sclera anicteric, moist mucus membranes Neck: supple Lungs: clear to auscultation bilaterally Heart: regular rate and rhythm, no murmurs Abd: soft, non-tender, non-distended Ext: no edema Skin: warm/well-perfused Neuro: alert and oriented x3, no focal findings, port right lower back Psych: appropriate affect Objective Data Active Medications Acetaminophen (Acetaminophen 325 Mg Tablet) 650 mg PO Q6H PRN PRN Reason: Pain, Mild (Pain Scale 1-3) Acetaminophen/Butalbital/Caffeine (Butalb/Acetamin/Caff 50/325/40 Tablet) 1 tab PO Q4H PRN PRN Reason: Headache Last Admin: 02/08/23 02:29 Dose: 1 tab Documented By: DONALD Acetaminophen/Butalbital/Caffeine (Butalb/Acetamin/Caff 50/325/40 Tablet) 1 tab PO Q4H PRN PRN Reason: Headache Albuterol Sulfate (Albuterol Sulfate 90 Mcg 8 Gm Inhaler) 2 puff INHALE Q4H PRN PRN Reason: Wheezing Heparin Sodium (Porcine) 50 (units/ Sodium Chloride 5 ml) 0 units IVFLUSH DAILY [facility] Last Admin: 02/08/23 08:26 Dose: Not Given Documented By: SHARONDA Non-Admin Reason: IV Running Diphenhydramine HCl (Diphenhydramine Hcl 50 Mg/Ml Vial) 25 mg IVPUSH Q4H PRN PRN Reason: Nausea and Vomiting Last Admin: 02/08/23 13:54 Dose: 25 mg Documented By: SHARONDA Docusate Sodium (Docusate Sodium 100 Mg Capsule) 100 mg PO BEDTIME [facility] Last Admin: 02/07/23 20:24 Dose: 100 mg Documented By: DONALD Enoxaparin Sodium (Enoxaparin Sodium 60 Mg/0.6 Ml Syringe) 60 mg SUBCUT Q12H [facility] Stop: 02/10/23 08:01 Last Admin: 02/08/23 08:25 Dose: 60 mg Documented By: SHARONDA Fluticasone/Vilanterol (Fluticasone/Vilanterol 200/25 Blst.W.Dev) 1 puff INHALE RDAILY [facility] Last Admin: 02/08/23 08:05 Dose: 1 puff Documented By: MO Hydromorphone HCl (Hydromorphone Hcl 2 Mg/Ml Vial) 2 mg IVPUSH Q4H PRN; Protocol PRN Reason: Pain, Severe (Pain Scale 7-10) Last Admin: 02/08/23 13:54 Dose: 2 mg Documented By: SHARONDA Clindamycin Phosphate (Cleocin) 300 mg in 50 mls @ 100 mls/hr IV Q6H [facility] Last Infusion: 02/08/23 11:07 Dose: Infused Documented By: SHARONDA Promethazine HCl 12.5 mg/ (Sodium Chloride) 50.5 mls @ 202 mls/hr IV Q4H PRN PRN Reason: nausea/vomiting Last Infusion: 02/07/23 05:55 Dose: Infused Documented By: JANELLE Levetiracetam 750 mg/ Sodium (Chloride) 107.5 mls @ 430 mls/hr IV Q12H [facility] Last Infusion: 02/08/23 11:26 Dose: Infused Documented By: SHARONDA Lactated Ringer's (Lr) 1,000 mls @ 100 mls/hr IVCONT .Q10H [facility] Last Admin: 02/08/23 08:31 Dose: 100 mls/hr Documented By: SHARONDA Nutrition (Parenteral) (Parenteral Nutrition) 2,350 mls @ 97.92 mls/hr IV .Q24H [facility]; Protocol Stop: 02/08/23 20:59 Last Admin: 02/07/23 21:02 Dose: 97.92 mls/hr Documented By: DONALD Caffeine/Sodium Benzoate 1,000 (mg/ Sodium Chloride) 1,004 mls @ 1,004 mls/hr IV BID@0800,1700 [facility] Last Infusion: 02/08/23 13:49 Dose: Infused Documented By: SHARONDA Nutrition (Parenteral) (Parenteral Nutrition) 2,350 mls @ 97.92 mls/hr IV .Q24H [facility]; Protocol Stop: 02/09/23 20:59 Melatonin (Melatonin 3 Mg Tablet) 6 mg PO BEDTIME PRN PRN Reason: Insomnia Last Admin: 02/07/23 20:24 Dose: 6 mg Documented By: DONALD Omeprazole (Omeprazole 20 Mg Capsule.) 20 mg PO DAILY@0630 [facility] Last Admin: 02/08/23 05:16 Dose: 20 mg Documented By: DONALD Ondansetron HCl (Ondansetron Hcl 4 Mg/2 Ml Vial) 4 mg IVPUSH Q6H [facility] Last Admin: 02/08/23 13:53 Dose: 4 mg Documented By: SHARONDA Pharmacy Consult (Consult Rx Parenteral Nutrition Ordering) 1 each MISCELLANE DAILY [facility] Sodium Chloride (0.9 % Sodium Chloride Flush 3 Ml Syringe) 3 ml IVFLUSH QSHIFT [facility] Last Admin: 02/08/23 08:26 Dose: Not Given Documented By: SHARONDA Non-Admin Reason: IV Running Tiotropium [place] (Tiotropium [place] 2.5 Mcg Inhaler) 2 puff INHALE RDAILY [facility] Last Admin: 02/08/23 08:05 Dose: 2 puff Documented By: MO Labs 02/08/23 09:36 02/08/23 05:55 Labs: Laboratory Results - last 24 hr 02/08/23 02/08/23 05:55 09:36 MCV 87.8 MCH 29.8 MCHC 33.9 RDW 12.7 Plt Count 176 MPV 10.9 Absolute Nucleated RBC 0.000 Nucleated RBC % (auto) 0.0 PT 14.4 H D INR 1.2 H APTT 33.4 Anion Gap 15 Estim Creat Clear Calc 92.9 Estimated GFR > 60 Random Glucose 130 H Calcium 8.7 Phosphorus 3.2 Magnesium 2.2 Assessment and Plan (1) Chronic pain syndrome: Status: Acute (2) Postdural puncture headache: Status: Acute Assessment and Plan: 42yo F with Crohn's disease with TPN dependence, 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 Pedroza he recommend to continue bedrest with 10 deg Trendelenberg Continue IV LR hydration,will place on IV caffeine b.i.d. continue to have poor by mouth intake Continue IV hydromorphone, prn Fioricet, add stool softeners O2 as needed to keep finger oximetry above 94 Hypophosphatemia repleted and normalized intrathecal pain pump - clindamycin for 14d postoperatively per Dr Pedroza FEN - cont. home TPN -continue prn ondansetron + diphenhydramine for nausea, and IV promethazine hx DVT/PE will DC Eliquis since patient might need blood patch ,will place on Lovenox as per Dr. Pedroza recommendations. Mild intermittent asthma no acute exacerbation - continue home inhalers- Breo, Incruse, prn albuterol seizure disorder - continue levetiracetam IV as currently PO intolerant,sz precautions VTE ppx - on apixaban dispo - TBD In my clinical judgment, the patient requires continued hospitalization for the following reasons: post-dural puncture headache Plan Time Spent With Patient Time: Total time managing care of this patient today ____ minutes. Quality Stroke Does the patient have a stroke diagnosis?: No VTE Prior VTE?: No VTE Risk Level:: Medical - moderate - high VTE Device Contraindication: Treatment Not Indicated VTE Drug Contraindication: N/A - Med Ordered
[2023-02-08 15:45] VITALS: BP 115/53; PULSE 79; RESP 18; TEMP 36.2; O2SAT 95
--- NOTE | 2023-02-08 17:05 | HO.PAINCONS ---
Review of Systems Constitutional: Constitutional: Reports no additional constitutional complaints Cardiovascular: Cardiovascular: Reports no additional cardiovascular complaints Respiratory: Respiratory: Reports no additional respiratory complaints Gastrointestinal: Gastrointestinal: Reports abdominal pain, Reports belching, Reports nausea and Reports vomiting Genitourinary: Genitourinary: Reports no additional female genitourinary complaints Musculoskeletal: Musculoskeletal: Reports as per HPI Neurologic: Denies Abnormal speech present Psychiatric: Psychiatric: Reports abnormal sleep pattern Endocrine: Endocrine: Reports no additional endocrine complaints Hematologic/Lymphatic: Hematologic/Lymphatic: Reports as per HPI Allergic/Immunologic: Allergic/Immunologic: Reports as per HPI PMF Past Medical History Medical History Pulmonary emboli Absence seizure disorder DVT (deep venous thrombosis) Pyloric stenosis Asthma Common variable immunodeficiency Spondylolisthesis, lumbar region Spondylosis of lumbar region without myelopathy or radiculopathy Abdominal pain, chronic, generalized Gastroparesis Spontaneous pneumothorax Abdominal pain Chronic pain syndrome Cervicalgia Low back pain Crohn's disease Behcet's disease Surgical History History of hernia surgery Family History Family History Father Hairy cell leukemia Social History Social History Household Members: Children Household Members Other:: son Housing: Condominium Do you presently have visiting nurse or other home services: No Alcohol intake: never Patient Tobacco Use Status: Never used Tobacco Advance Directives Date on File: 03/12/21 service: No Current occupational status: unemployed Physical Exam Vital Signs: Vital Signs: Last Vital Signs Temp 97.2 F 02/08/23 15:45 Pulse 79 02/08/23 15:45 Resp 18 02/08/23 15:45 BP 115/53 L 02/08/23 15:45 Pulse Ox 95 02/08/23 15:45 O2 Del Method Room Air 02/08/23 15:45 BMI result Body Mass Index 30.5 Const: Other: Gen: lying flat, no distress HEENT: sclera anicteric, moist mucus membranes Neck: supple Lungs: clear to auscultation bilaterally Heart: regular rate and rhythm, no murmurs Abd: soft, non-tender, non-distended Ext: no edema Skin: warm/well-perfused Neuro: alert and oriented x3, no focal findings, port right lower back Psych: appropriate affect Neuro: Speech: No Abnormal speech present Assessment and Plan (1) Chronic, continuous use of opioids: Status: Acute (2) Immunosuppression: Status: Acute (3) Spondylolisthesis, lumbar region: Status: Acute (4) Spondylosis of lumbar region without myelopathy or radiculopathy: Status: Acute (5) Chronic pain syndrome: Status: Acute (6) Abdominal pain: Status: Acute (7) Chronic pain: Status: Acute (8) Postdural puncture headache: Status: Acute Assessment and Plan: procedure: attempt to perform subclavian on the left central line catheter, insertion of the EJ 18 gauge peripheral IV. After obtaining informed consent , risks and benefits explained of bleeding, infection, pneumothorax, the patient was placed in Trendelenburg position her left subclavian area was prepped with ChloraPrep and draped with full body drape. After raising a skin wheal in the projection of lateral sub clavicular area two attempts were made to pass the needle into subclavicular space and into the junction of the subclavian and internal jugular veins. Unfortunately no blood was seen in the syringe patient was complaining on discomfort in the area. Patient reported that she had about 27 separate occasions of insertion of peripheral lines bilaterally and central lines bilaterally. She has scars bilaterally on the anterior lateral chest bilaterally from previous Port-A-Cath insertions. The decision was made not to continue with central line placement. Engorged external jugular vein on the left side of the neck was observed in Trendelenburg position, it was prepped with ChloraPrep and 18 gauge intravenous catheter was inserted through the skin into the vein with good back blood flow. It was connected to extension line and flushed with normal saline. It was taped to the skin using Tegaderm tape. It was immediately connected to intravenous IV fluids. Plan Because of multiple problems that this patient has and because the surgery was performed only 48 hours ago epidural blood patch will be difficult to perform technically and is not recommended at this time. Therefore the following is recommended for the patient: 1. Continue TPN.. 2. Continue IV hydration through freshly Established left external jugular IV access. 3. continue bedrest in Trendelenburg position. Monitor each shift vital signs including pulse oximetry. 4. Continue antibiotics clindamycin 300 mg IV every 6 hours. 5.She should continue her Dilaudid 1 mg IV p.r.n. pain every 4 hours. She needs to continue her antiemetic chronic medications Benadryl 25-50 mg and ondansetron 4 mg. 6.Continue Lovenox therapeutic dose as described above. she will receive last Lovenox in the morning 02/10/2023. 6.If she has difficulty breathing in Trendelenburg position she may be administered oxygen 2-3 L per minute. 7.The patient should receive Colace for maintaining soft stool at least once a day. She cannot bear down or increase her intra-abdominal pressure. 8. she is unable to tolerate oral Fioricet she is receiving caffeine intravenously at 08:00 and at 16:00 Time Spent With Patient Time: Total time managing care of this patient today __55__ minutes.
--- NOTE | 2023-02-08 17:12 | PC.NURSE ---
#18 left EJ placed by Dr. Pedroza. One failed attempt by at left subclavian central line at bedside. Patient tolerated procedure well. O2 sats 97-98% room air.
[2023-02-08 17:54] VITALS: O2SAT 95
--- NOTE | 2023-02-08 18:26 | PC.NURSE ---
Pt refused second dose of caffeine infusion. Md Pedroza notified .
[2023-02-08 19:20] VITALS: BP 120/67; PULSE 73; RESP 17; TEMP 36.6; O2SAT 94
[2023-02-08] MEDS: 0.9 % Sodium Chloride Flush 3 ML SYRINGE IVFLUSH (19:56)
[2023-02-08] MEDS: Sennosides/Docusate Sodium TABLET 1 TAB PO (21:20)
[2023-02-08] MEDS: Melatonin 3 MG TABLET 6 MG PO (22:58)
[2023-02-09] MEDS: Lactated Ringers 1,000 ML 100 ML IVCONT ×3 (01:08→22:06)
[2023-02-09] MEDS: diphenhydrAMINE HCL 50 MG/ML VIAL 25 MG IVPUSH ×5 (02:25→19:39)
[2023-02-09] MEDS: ondansetron HCL 4 MG/2 ML VIAL IVPUSH ×4 (02:25→19:38)
[2023-02-09] MEDS: HYDROmorphone HCl 2 MG/ML VIAL IVPUSH ×5 (03:34→23:48)
[2023-02-09 04:00] VITALS: BP 101/55; PULSE 74; RESP 16; TEMP 36; O2SAT 94
[2023-02-09] MEDS: Clindamycin Phosphate/D5W 300 MG/50 ML PIGGYBACK 100 MG IV ×4 (04:33→22:06)
[2023-02-09] MEDS: Omeprazole 20 MG CAPSULE.DR PO (05:21)
[2023-02-09 07:04] VITALS: BP 115/56; PULSE 80; RESP 16; TEMP 36.7; O2SAT 92
[2023-02-09] MEDS: Fluticasone/Vilanterol 200/25 BLST.W.DEV 1 PUFF INHALE (07:54)
[2023-02-09 07:56] VITALS: PULSE 88; RESP 18; O2SAT 92
[2023-02-09] MEDS: Docusate Sodium 100 MG CAPSULE PO (09:03)
[2023-02-09] MEDS: Butalb/Acetamin/Caff 50/325/40 TABLET 1 TAB PO (09:03)
[2023-02-09] MEDS: Heparin Sodium,Porcine Flush 50 UNITS, 0.9 % Sodium Chloride Flush 5 ML IVFLUSH (09:12)
[2023-02-09] MEDS: Enoxaparin Sodium 60 MG/0.6 ML SYRINGE SUBCUT ×2 (09:13→19:39)
[2023-02-09 09:19] LABS: Hematocrit 32.3 % (37.0-47.0); Mean Corpuscular HGB Conc 34.1 g/dl (31.0-35.0); Mean Platelet Volume 10.8 fL (9.4-12.3); Platelet Count 182 X10*3/uL (160-400); Red Blood Count 3.67 X10*6/uL (4.20-5.50); Red Cell Distribution Width 12.6 % (11.0-16.0); White Blood Count 4.8 X10*3/uL (4.8-10.8)
[2023-02-09 09:41] LABS: Anion Gap 11 (12-20); Blood Urea Nitrogen 12 mg/dL (9-16); Carbon Dioxide 29 mmol/L (22-29); Chloride 106 mmol/L (96-108); Creatinine Clr Calc Pharmacy 88.8; Estimated Glomerular Filt Rate > 60; Glucose Random 119 mg/dL (60-115); Magnesium 2.3 mg/dL (1.6-2.6); Phosphorus 3.8 mg/dL (2.7-4.5); Potassium 4.2 mmol/L (3.3-5.1); Sodium 142 mmol/L (135-145)
[2023-02-09 09:43] LABS: INTERNATIONAL NORM RATIO 1.1 (0.9-1.1); Prothrombin Time 13.4 SEC (11.1-13.3)
--- NOTE | 2023-02-09 10:41 | MHC.CLN ---
F/U PATIENT RECEIVING TPN. DIET=REGULAR. INTAKE MOST MEALS 0-50%. HX MALABSORPTION. TPN ORDERED PER HOME ADMINISTRATION. PROTEIN 70 g; DEXTROSE 200 G; LIPIDS 50 G (X 5 DAYS, NOT ON TUESDAY OR TUESDAY). TPN WITH LIPIDS PROVIDES 1460 KCALS (29.6 KCALS/KG CMW); 70 G PROTEIN (1.4 G/KG CMW). LABS REVIEWED. COMMUNICATED WITH PHARMACY, CONFIRMING THAT CONTINUES WITH CENTRAL LINE ACCESS. RECOMMEND CONTINUE CURRENT TPN ORDERS. FOLLOW LYTES, INTAKE, TPN TOLERANCE.
--- NOTE | 2023-02-09 11:55 | P.PNIM_ITS ---
Subjective Subjective Date of Service: 02/09/23 Interval History: Complaining of mild improvement in headache and nausea but not completely resolved has been tolerating by mouth small amount, no abdominal pain no lightheadedness, no dizziness, no fevers, no chills for, felt headache worsened after use of caffeine, no bowel movement in last several days no other acute issues overnight. Review of Systems All other system reviewed and negative. Physical Exam 2 Vital Signs: Vital Signs: Last Vital Signs Temp 98.1 F 02/09/23 07:04 Pulse 88 02/09/23 07:56 Resp 18 02/09/23 07:56 BP 115/56 L 02/09/23 07:04 Pulse Ox 92 02/09/23 07:04 O2 Del Method Room Air 02/09/23 07:04 BMI result Body Mass Index 30.5 Const: Other: Gen: lying flat, no distress Neck: supple, left external jugular IV access Lungs: clear to auscultation bilaterally Heart: regular rate and rhythm, no murmurs Abd: soft, non-tender, non-distended Ext: no edema Skin: warm/well-perfused Neuro: alert and oriented x3, no focal findings, port right lower back Psych: appropriate affect Objective Data Active Medications Acetaminophen (Acetaminophen 325 Mg Tablet) 650 mg PO Q6H PRN PRN Reason: Pain, Mild (Pain Scale 1-3) Acetaminophen/Butalbital/Caffeine (Butalb/Acetamin/Caff 50/325/40 Tablet) 1 tab PO Q4H PRN PRN Reason: Headache Last Admin: 02/09/23 09:03 Dose: 1 tab Documented By: JEFF Acetaminophen/Butalbital/Caffeine (Butalb/Acetamin/Caff 50/325/40 Tablet) 1 tab PO Q4H PRN PRN Reason: Headache Albuterol Sulfate (Albuterol Sulfate 90 Mcg 8 Gm Inhaler) 2 puff INHALE Q4H PRN PRN Reason: Wheezing Heparin Sodium (Porcine) 50 (units/ Sodium Chloride 5 ml) 0 units IVFLUSH DAILY ANNA Last Admin: 02/09/23 09:12 Dose: 50 unit Documented By: JEFF Diphenhydramine HCl (Diphenhydramine Hcl 50 Mg/Ml Vial) 25 mg IVPUSH Q4H PRN PRN Reason: Nausea and Vomiting Last Admin: 02/09/23 09:04 Dose: 25 mg Documented By: JEFF Docusate Sodium (Docusate Sodium 100 Mg Capsule) 100 mg PO DAILY [facility] Last Admin: 02/09/23 09:03 Dose: 100 mg Documented By: JEFF Enoxaparin Sodium (Enoxaparin Sodium 60 Mg/0.6 Ml Syringe) 60 mg SUBCUT Q12H [facility] Stop: 02/10/23 08:01 Last Admin: 02/09/23 09:13 Dose: 60 mg Documented By: JEFF Fluticasone/Vilanterol (Fluticasone/Vilanterol 200/25 Blst.W.Dev) 1 puff INHALE RDAILY [facility] Last Admin: 02/09/23 07:54 Dose: 1 puff Documented By: MOE Hydromorphone HCl (Hydromorphone Hcl 2 Mg/Ml Vial) 2 mg IVPUSH Q4H PRN; Protocol PRN Reason: Pain, Severe (Pain Scale 7-10) Last Admin: 02/09/23 09:03 Dose: 2 mg Documented By: JEFF Clindamycin Phosphate (Cleocin) 300 mg in 50 mls @ 100 mls/hr IV Q6H [facility] Last Infusion: 02/09/23 05:07 Dose: Infused Documented By: SENDY Promethazine HCl 12.5 mg/ (Sodium Chloride) 50.5 mls @ 202 mls/hr IV Q4H PRN PRN Reason: nausea/vomiting Last Infusion: 02/07/23 05:55 Dose: Infused Documented By: JANELLE Levetiracetam 750 mg/ Sodium (Chloride) 107.5 mls @ 430 mls/hr IV Q12H [facility] Last Infusion: 02/08/23 22:58 Dose: Infused Documented By: SENDY Lactated Ringer's (Lr) 1,000 mls @ 100 mls/hr IVCONT .Q10H [facility] Last Admin: 02/09/23 01:08 Dose: 100 mls/hr Documented By: SENDY Nutrition (Parenteral) (Parenteral Nutrition) 2,350 mls @ 97.92 mls/hr IV .Q24H [facility]; Protocol Stop: 02/09/23 20:59 Last Admin: 02/08/23 21:20 Dose: 97.92 mls/hr Documented By: SENDY Nutrition (Parenteral) (Parenteral Nutrition) 2,350 mls @ 97.92 mls/hr IV .Q24H [facility]; Protocol Stop: 02/10/23 20:59 Magnesium Hydroxide (Milk Of Magnesia 30 Ml Oral.Susp) 30 ml PO DAILY PRN PRN Reason: Constipation Melatonin (Melatonin 3 Mg Tablet) 6 mg PO BEDTIME PRN PRN Reason: Insomnia Last Admin: 02/08/23 22:58 Dose: 6 mg Documented By: SENDY Omeprazole (Omeprazole 20 Mg Capsule.) 20 mg PO DAILY@0630 [facility] Last Admin: 02/09/23 05:21 Dose: 20 mg Documented By: SENDY Ondansetron HCl (Ondansetron Hcl 4 Mg/2 Ml Vial) 4 mg IVPUSH Q6H [facility] Last Admin: 02/09/23 09:03 Dose: 4 mg Documented By: JEFF Pharmacy Consult (Consult Rx Parenteral Nutrition Ordering) 1 each MISCELLANE DAILY [facility] Senna/Docusate Sodium (Sennosides/Docusate Sodium Tablet) 1 tab PO BEDTIME [facility] Last Admin: 02/08/23 21:20 Dose: 1 tab Documented By: SENDY Sodium Chloride (0.9 % Sodium Chloride Flush 3 Ml Syringe) 3 ml IVFLUSH QSHIFT [facility] Last Admin: 02/09/23 08:56 Dose: Not Given Documented By: JEFF Non-Admin Reason: IV Running Tiotropium [place] (Tiotropium [place] 2.5 Mcg Inhaler) 2 puff INHALE RDAILY [facility] Last Admin: 02/09/23 07:54 Dose: 2 puff Documented By: MOE Labs 02/09/23 09:09 02/09/23 09:09 Labs: Laboratory Results - last 24 hr 02/09/23 09:09 MCV 88.0 MCH 30.0 MCHC 34.1 RDW 12.6 Plt Count 182 MPV 10.8 Absolute Nucleated RBC 0.000 Nucleated RBC % (auto) 0.0 PT 13.4 H INR 1.1 Anion Gap 11 L Estim Creat Clear Calc 88.8 Estimated GFR > 60 Random Glucose 119 H Calcium 9.0 Phosphorus 3.8 Magnesium 2.3 Assessment and Plan (1) Chronic, continuous use of opioids: Status: Acute (2) Immunosuppression: Status: Acute (3) Spondylolisthesis, lumbar region: Status: Acute (4) Spondylosis of lumbar region without myelopathy or radiculopathy: Status: Acute (5) Chronic pain syndrome: Status: Acute (6) Abdominal pain: Status: Acute (7) Chronic pain: Status: Acute (8) Postdural puncture headache: Status: Acute Assessment and Plan: Plan 42yo F with Crohn's disease with TPN dependence, Behcets disease on adalimumab, chronic back pain on hydromorphone, s/p intrathecal pain pump placed 02/03/[address] Pedroza presenting with severe post-dural puncture headache post-dural puncture headache Persistent headache and nausea, slightly better continue bedrest with 10 deg Trendelenberg Continue IV LR hydration, dc IV caffeine b.i.d. since patient noted worsening of headache Continue IV hydromorphone, anti emetics O2 as needed to keep finger oximetry above 94 Stable electrolytes and CBC. Constipation continue Colace ,added Senokot, and MiraLax, lactulose x1 dose. Hypophosphatemia repleted and normalized intrathecal pain pump - clindamycin for 14d postoperatively per Dr Pedroza FEN - cont. home TPN -continue scheduled ondansetron + prn diphenhydramine for nausea, and IV promethazine. hx DVT/PE will DC Eliquis since patient might need blood patch ,on Lovenox as per Dr. Pedroza recommendations. Mild intermittent asthma no acute exacerbation -continue home inhalers- Breo, Incruse, prn albuterol seizure disorder -continue levetiracetam IV as currently PO intolerant,sz precautions VTE ppx - on Lovenox dispo - TBD In my clinical judgment, the patient requires continued hospitalization for the following reasons: post-dural puncture headache on TPN, IV antibiotics, IV fluids and IV analgesics Time Spent With Patient Time: Total time managing care of this patient today ____ minutes. Quality Stroke Does the patient have a stroke diagnosis?: No VTE Prior VTE?: No VTE Risk Level:: Medical - moderate - high VTE Device Contraindication: Treatment Not Indicated VTE Drug Contraindication: N/A - Med Ordered
[2023-02-09] MEDS: levETIRAcetam 750 MG in 0.9 % Sodium Chloride 100 ML 430 MG IV ×2 (13:06→22:45)
[2023-02-09] MEDS: Lactulose 20 GM/30 ML SOLUTION PO (13:06)
[2023-02-09 15:30] VITALS: BP 116/61; PULSE 80; RESP 19; TEMP 36.4; O2SAT 92
--- NOTE | 2023-02-09 16:21 | MHC.CM.PN ---
Per MD rounds No discharge today. Plan OR Tuesday for Blood Patch. DP home no services. Patient will arrange for transportation home.
[2023-02-09 18:55] VITALS: BP 112/59; PULSE 93; RESP 18; TEMP 36.8; O2SAT 95
--- NOTE | 2023-02-09 19:24 | PC.NURSE ---
Pt. emotional, tearing up stated she didn't have a good night. Complained about care she received overnight. TLC provided throughout the shift, still in pain, and nauseated.
[2023-02-09] MEDS: 0.9 % Sodium Chloride Flush 3 ML SYRINGE IVFLUSH (19:39)
[2023-02-09] MEDS: Sennosides/Docusate Sodium TABLET 1 TAB PO (21:07)
[2023-02-10] MEDS: ondansetron HCL 4 MG/2 ML VIAL IVPUSH ×4 (03:20→20:16)
[2023-02-10] MEDS: diphenhydrAMINE HCL 50 MG/ML VIAL 25 MG IVPUSH ×3 (03:20→20:13)
[2023-02-10 04:00] VITALS: BP 130/65; PULSE 89; RESP 20; TEMP 36.1; O2SAT 98
[2023-02-10] MEDS: Clindamycin Phosphate/D5W 300 MG/50 ML PIGGYBACK 100 MG IV ×4 (04:40→23:56)
[2023-02-10] MEDS: HYDROmorphone HCl 2 MG/ML VIAL IVPUSH ×2 (04:46→09:28)
[2023-02-10] MEDS: Omeprazole 20 MG CAPSULE.DR PO (06:26)
[2023-02-10 07:00] LABS: Anion Gap 12 (12-20); Blood Urea Nitrogen 13 mg/dL (9-16); Calcium 8.8 mg/dL (8.4-10.2); Carbon Dioxide 26 mmol/L (22-29); Chloride 104 mmol/L (96-108); Creatinine Clr Calc Pharmacy 86.3; Estimated Glomerular Filt Rate > 60; Glucose Random 112 mg/dL (60-115); Magnesium 2.3 mg/dL (1.6-2.6); Potassium 4.1 mmol/L (3.3-5.1); Sodium 138 mmol/L (135-145)
[2023-02-10 07:34] VITALS: BP 137/79; PULSE 100; RESP 12; TEMP 38.4; O2SAT 98
[2023-02-10] MEDS: Fluticasone/Vilanterol 200/25 BLST.W.DEV 1 PUFF INHALE (07:42)
[2023-02-10 07:44] VITALS: PULSE 90; RESP 16; O2SAT 94
[2023-02-10 08:00] VITALS: TEMP 37.2
[2023-02-10] MEDS: Heparin Sodium,Porcine Flush 50 UNITS, 0.9 % Sodium Chloride Flush 5 ML IVFLUSH (09:30)
[2023-02-10] MEDS: 0.9 % Sodium Chloride Flush 3 ML SYRINGE IVFLUSH ×3 (09:32→20:17)
[2023-02-10] MEDS: polyethylene glycoL 3350 17 GM POWD.PACK PO (09:32)
[2023-02-10] MEDS: Docusate Sodium 100 MG CAPSULE PO (09:32)
[2023-02-10] MEDS: Enoxaparin Sodium 60 MG/0.6 ML SYRINGE SUBCUT (09:32)
[2023-02-10] MEDS: Lactated Ringers 1,000 ML 100 ML IVCONT ×2 (09:39→20:19)
[2023-02-10] MEDS: levETIRAcetam 750 MG in 0.9 % Sodium Chloride 100 ML 430 MG IV (12:32)
[2023-02-10] MEDS: Butalb/Acetamin/Caff 50/325/40 TABLET 1 TAB PO ×3 (12:46→23:51)
[2023-02-10 16:00] VITALS: BP 121/58; PULSE 82; RESP 18; TEMP 36.4; O2SAT 96
--- NOTE | 2023-02-10 17:19 | HO.PM.IMPN ---
Subjective Subjective Date of Service: 02/10/23 Interval History: complaining of headache and right-sided back pain, headache was better yesterday but again worse this morning, less nausea, no vomiting, had 1 bowel movement yesterday, no fevers, no chills tolerating diet. Review of Systems All other system reviewed and negative Physical Exam Vital Signs: Vital Signs: Last Vital Signs Temp 97.6 F 02/10/23 16:00 Pulse 82 02/10/23 16:00 Resp 18 02/10/23 16:00 BP 121/58 L 02/10/23 16:00 Pulse Ox 96 02/10/23 16:00 O2 Del Method Room Air 02/10/23 16:00 BMI result Body Mass Index 30.5 Const: Other: Gen: lying flat, in distress due to pain awake alert x3 Neck: supple, left external jugular IV access Lungs: clear to auscultation bilaterally Heart: regular rate and rhythm, no murmurs Abd: soft, non-tender, non-distended, bowel sounds audible Ext: no edema Skin: warm/well-perfused Neuro: alert and oriented x3, no focal findings, port right lower back Psych: appropriate affect Objective Data Active Medications Acetaminophen (Acetaminophen 325 Mg Tablet) 650 mg PO Q6H PRN PRN Reason: Pain, Mild (Pain Scale 1-3) Acetaminophen/Butalbital/Caffeine (Butalb/Acetamin/Caff 50/325/40 Tablet) 1 tab PO Q4H PRN PRN Reason: Headache Last Admin: 02/10/23 16:34 Dose: 1 tab Documented By: JEFF Acetaminophen/Butalbital/Caffeine (Butalb/Acetamin/Caff 50/325/40 Tablet) 1 tab PO Q4H PRN PRN Reason: Headache Albuterol Sulfate (Albuterol Sulfate 90 Mcg 8 Gm Inhaler) 2 puff INHALE Q4H PRN PRN Reason: Wheezing Heparin Sodium (Porcine) 50 (units/ Sodium Chloride 5 ml) 0 units IVFLUSH DAILY ANNA Last Admin: 02/10/23 09:30 Dose: 50 unit Documented By: JEFF Diphenhydramine HCl (Diphenhydramine Hcl 50 Mg/Ml Vial) 25 mg IVPUSH Q4H PRN PRN Reason: Nausea and Vomiting Last Admin: 02/10/23 09:25 Dose: 25 mg Documented By: JEFF Docusate Sodium (Docusate Sodium 100 Mg Capsule) 100 mg PO DAILY [facility] Last Admin: 02/10/23 09:32 Dose: 100 mg Documented By: JEFF Fluticasone/Vilanterol (Fluticasone/Vilanterol 200/25 Blst.W.Dev) 1 puff INHALE RDAILY COUNT [facility]CLUD[facility] Last Admin: 02/10/23 07:42 Dose: 1 puff Documented By: MO Clindamycin Phosphate (Cleocin) 300 mg in 50 mls @ 100 mls/hr IV Q6H COUNT [facility]CLUD[facility] Last Infusion: 02/10/23 17:07 Dose: Infused Documented By: JEFF Promethazine HCl 12.5 mg/ (Sodium Chloride) 50.5 mls @ 202 mls/hr IV Q4H PRN PRN Reason: nausea/vomiting Last Admin: 02/10/23 17:13 Dose: 202 mls/hr Documented By: JEFF Levetiracetam 750 mg/ Sodium (Chloride) 107.5 mls @ 430 mls/hr IV Q12H COUNT [facility]CLUDES [facility] Last Infusion: 02/10/23 13:32 Dose: Infused Documented By: JEFF Lactated Ringer's (Lr) 1,000 mls @ 100 mls/hr IVCONT .Q10H COUNT [facility]CLUD[facility] Last Admin: 02/10/23 09:39 Dose: 100 mls/hr Documented By: JEFF Nutrition (Parenteral) (Parenteral Nutrition) 2,350 mls @ 97.92 mls/hr IV .Q24H ANNA; Protocol Stop: 02/10/23 20:59 Last Admin: 02/09/23 21:07 Dose: 97.92 mls/hr Documented By: SENDY Nutrition (Parenteral) (Parenteral Nutrition) 2,350 mls @ 97.92 mls/hr IV .Q24H COUNT [facility]CLUDES [facility]; Protocol Stop: 02/11/23 20:59 Magnesium Hydroxide (Milk Of Magnesia 30 Ml Oral.Susp) 30 ml PO DAILY PRN PRN Reason: Constipation Melatonin (Melatonin 3 Mg Tablet) 6 mg PO BEDTIME PRN PRN Reason: Insomnia Last Admin: 02/08/23 22:58 Dose: 6 mg Documented By: SENDY Omeprazole (Omeprazole 20 Mg Capsule.) 20 mg PO DAILY@0630 COUNT [facility]CLUDES [facility] Last Admin: 02/10/23 06:26 Dose: 20 mg Documented By: SENDY Ondansetron HCl (Ondansetron Hcl 4 Mg/2 Ml Vial) 4 mg IVPUSH Q6H COUNT [facility]CLUD[facility] Last Admin: 02/10/23 15:45 Dose: 4 mg Documented By: JEFF Pharmacy Consult (Consult Rx Parenteral Nutrition Ordering) 1 each MISCELLANE DAILY COUNT [facility]CLUDES [facility] Polyethylene Glycol (Polyethylene Glycol 3350 17 Gm Powd.Pack) 17 gm PO DAILY COUNT [facility]CLUD[facility] Last Admin: 02/10/23 09:32 Dose: 17 gm Documented By: JEFF Senna/Docusate Sodium (Sennosides/Docusate Sodium Tablet) 1 tab PO BEDTIME COUNT [facility]CLUD[facility] Last Admin: 02/09/23 21:07 Dose: 1 tab Documented By: SENDY Sodium Chloride (0.9 % Sodium Chloride Flush 3 Ml Syringe) 3 ml IVFLUSH QSHIFT COUNT [facility]CLUDES [facility] Last Admin: 02/10/23 15:47 Dose: 3 ml Documented By: JEFF Tiotropium [place] (Tiotropium [place] 2.5 Mcg Inhaler) 2 puff INHALE RDAILY COUNT [facility]CLUD[facility] Last Admin: 02/10/23 07:42 Dose: 2 puff Documented By: MO Labs 02/09/23 09:09 02/10/23 06:13 Labs: Laboratory Results - last 24 hr 02/10/23 06:13 Anion Gap 12 Estim Creat Clear Calc 86.3 Estimated GFR > 60 Random Glucose 112 Calcium 8.8 Phosphorus 4.0 Magnesium 2.3 Assessment and Plan (1) Chronic, continuous use of opioids: Status: Acute (2) Immunosuppression: Status: Acute (3) Spondylolisthesis, lumbar region: Status: Acute (4) Spondylosis of lumbar region without myelopathy or radiculopathy: Status: Acute (5) Chronic pain syndrome: Status: Acute (6) Abdominal pain: Status: Acute (7) Chronic pain: Status: Acute (8) Postdural puncture headache: Status: Acute Assessment and Plan: Plan 42yo F with Crohn's disease with TPN dependence, Behcets disease on adalimumab, chronic back pain on hydromorphone, s/p intrathecal pain pump placed 02/03/[address] Pedroza presenting with severe post-dural puncture headache post-dural puncture headache Persistent headache and nausea continue bedrest with 10 deg Trendelenberg Continue IV LR hydration, dc IV caffeine b.i.d. since patient noted worsening of headache Continue IV hydromorphone, anti emetics O2 as needed to keep finger oximetry above 94 Stable electrolytes and CBC. Constipation resolved, continue Colace , Senokot, and MiraLax. Hypophosphatemia repleted and normalized intrathecal pain pump - clindamycin for 14d postoperatively per Dr Pedroza FEN - cont. home TPN -continue scheduled ondansetron + prn diphenhydramine for nausea, and IV promethazine. hx DVT/PE , Eliquis discontinued since patient scheduled for blood patch at a.m. last dose of Lovenox this a.m. Mild intermittent asthma no acute exacerbation -continue home inhalers- Breo, Incruse, prn albuterol seizure disorder -continue levetiracetam IV as currently PO intolerant,sz precautions VTE ppx -Lovenox, last dose this morning dispo - TBD In my clinical judgment, the patient requires continued hospitalization for the following reasons: post-dural puncture headache on TPN, IV antibiotics, IV fluids and IV analgesics Time Spent With Patient Time: Total time managing care of this patient today ____ minutes. Quality Stroke Does the patient have a stroke diagnosis?: No VTE Prior VTE?: No VTE Risk Level:: Medical - moderate - high VTE Device Contraindication: Treatment Not Indicated VTE Drug Contraindication: N/A - Med Ordered
[2023-02-10 20:00] VITALS: BP 130/72; PULSE 86; RESP 20; TEMP 36.4; O2SAT 98
[2023-02-10] MEDS: Sennosides/Docusate Sodium TABLET 1 TAB PO (20:15)
[2023-02-10] MEDS: Acetaminophen 325 MG TABLET 650 MG PO (23:51)
[2023-02-11] VITALS (10 sets, daily range): BP systolic 111–129; BP diastolic 56–74; PULSE 64–82; RESP 14–20; TEMP 36.1–37.7; O2SAT 93–98
[2023-02-11] MEDS: levETIRAcetam 750 MG in 0.9 % Sodium Chloride 100 ML 430 MG IV (00:35)
[2023-02-11] MEDS: ondansetron HCL 4 MG/2 ML VIAL IVPUSH ×4 (01:18→20:09)
[2023-02-11] MEDS: HYDROmorphone HCl 2 MG TABLET PO ×4 (01:50→20:09)
[2023-02-11] MEDS: Clindamycin Phosphate/D5W 300 MG/50 ML PIGGYBACK 100 MG IV ×3 (05:10→22:45)
[2023-02-11] MEDS: Omeprazole 20 MG CAPSULE.DR PO (05:10)
[2023-02-11] MEDS: Lactated Ringers 1,000 ML 100 ML IVCONT ×2 (05:10→18:08)
[2023-02-11] MEDS: Fluticasone/Vilanterol 200/25 BLST.W.DEV 1 PUFF INHALE (07:44)
[2023-02-11] MEDS: Docusate Sodium 100 MG CAPSULE PO (08:39)
[2023-02-11] MEDS: Heparin Sodium,Porcine Flush 50 UNITS, 0.9 % Sodium Chloride Flush 5 ML IVFLUSH (08:39)
[2023-02-11 08:46] LABS: Anion Gap 12 (12-20); Blood Urea Nitrogen 13 mg/dL (9-16); Calcium 8.7 mg/dL (8.4-10.2); Carbon Dioxide 25 mmol/L (22-29); Chloride 107 mmol/L (96-108); Creatinine Clr Calc Pharmacy 90.2; Estimated Glomerular Filt Rate > 60; Glucose Random 137 mg/dL (60-115); Magnesium 2.6 mg/dL (1.6-2.6); Phosphorus 3.5 mg/dL (2.7-4.5); Potassium 4.1 mmol/L (3.3-5.1); Sodium 140 mmol/L (135-145)
--- NOTE | 2023-02-11 11:10 | MHC.SHP ---
Pre-Procedural Eval Section A Date of Service: 02/11/23 The patient is an INPATIENT: No Changes since office visit: Yes Patient answered all questions The History & Physical has been completed within 30 days and I have reviewed it.: No Section B Chief Complaint: Headache post dural puncture headache Details of Present Illness: Post dural puncture headache after implantation of the ITDD. Relevant Family History (Specify if Yes): No Relevant Social History: None Present Medications: see Short Stay Collaborative assessment Medical History: Significant History History of Previous Operations: Relevant previous surgery/procedure and date(s) Allergies: Allergies Allergy/AdvReac Type Severity Reaction Status Date / Time ciprofloxacin [Cipro] Allergy Unknown Hives Verified 02/11/23 10:42 levofloxacin [Levaquin] Allergy Unknown Hives Verified 02/11/23 10:42 metoclopramide [Reglan] Allergy Unknown Hives Verified 02/11/23 10:42 ondansetron [Zofran] Allergy Unknown Itching Verified 02/11/23 10:42 penicillin V Allergy Unknown Hives Verified 02/11/23 10:42 prochlorperazine Allergy Unknown Shortness Verified 02/11/23 10:42 [From Compazine] of Breath Sulfa (Sulfonamide Allergy Unknown Hives Verified 02/11/23 10:42 Antibiotics) thalidomide [From Thalomid] Allergy Unknown Rash Verified 02/11/23 10:42 haloperidol [From Haldol] Allergy Itching Verified 02/11/23 10:42 Review of Systems Sugical H&P ROS: Negative: Constitution, Cardiovascular, Respiratory, Neurological, Psychiatric, Allergic/Immunologic, Genitourinary, Integumentary, Endocrine and Eyes/Ears/Nose/Throat and Yes, Specify: Hem-Onc (Behcet disease), Gastrointestinal (Crohn's disease) and Musculoskeletal (Spondylosis lumbar) Exam Surgical H&P Exam: Normal: HEENT, Normal: Heart, Normal: Lungs, Normal: Extremities, Normal: Skin and Normal: Neurological and Significant Findings: Abdomen (Multiple incisions from previous surgeries) Plan Diagnosis/Plan: Unchanged I have reviewed the history and physical and performed a pertinent physical examination . She continues to be very debilitated 42 years old with history of intractable lower back pain on abdominal pain secondary to spondylosis of lumbar spine and Crohn's disease. For the treatment of this intractable pain she was given intrathecal drug delivery system pain pump with bupivacaine. She developed post dural puncture headache after implantation of the pain pump. Today she is in the operating room for performance of epidural blood patch after 1 week of the conservative treatment. Conservative treatment was not successful she continues to complain on pain 12/30. I will proceed with the plan of epidural blood patch as before. Time Spent With Patient Time: Total time managing care of this patient today __15__ minutes.
--- NOTE | 2023-02-11 11:28 | PC.NURSE ---
dr. fernandez updated that patient has temperature and stat cbc with auto diff. doctor stated okay to go into OR without results.
--- NOTE | 2023-02-11 11:29 | HO.PM.IMPN ---
Subjective Subjective Date of Service: 02/11/23 Interval History: Complaining of persistent headache, less nausea, no acute overnight events, no fevers, no chills, NPO for blood patch is scheduled for this morning. Review of Systems All other system reviewed and negative. Physical Exam Vital Signs: Vital Signs: Last Vital Signs Temp 99.8 F 02/11/23 10:54 Pulse 82 02/11/23 10:54 Resp 20 02/11/23 10:54 BP 124/74 02/11/23 10:54 Pulse Ox 95 02/11/23 10:54 O2 Del Method Room Air 02/11/23 10:54 BMI result Body Mass Index 30.5 Const: Other: Gen: lying flat, in no distress , awake alert x3 Neck: supple, left external jugular IV access Lungs: clear to auscultation bilaterally Heart: regular rate and rhythm, no murmurs Abd: soft, non-tender, non-distended, bowel sounds audible Ext: no edema Skin: warm/well-perfused Neuro: alert and oriented x3, no focal findings, port right lower back Psych: appropriate affect Objective Data Active Medications Acetaminophen (Acetaminophen 325 Mg Tablet) 650 mg PO Q6H PRN PRN Reason: Pain, Mild (Pain Scale 1-3) Last Admin: 02/10/23 23:51 Dose: 650 mg Documented By: AIDA Acetaminophen/Butalbital/Caffeine (Butalb/Acetamin/Caff 50/325/40 Tablet) 1 tab PO Q4H PRN PRN Reason: Headache Last Admin: 02/10/23 23:51 Dose: 1 tab Documented By: AIDA Acetaminophen/Butalbital/Caffeine (Butalb/Acetamin/Caff 50/325/40 Tablet) 1 tab PO Q4H PRN PRN Reason: Headache Albuterol Sulfate (Albuterol Sulfate 90 Mcg 8 Gm Inhaler) 2 puff INHALE Q4H PRN PRN Reason: Wheezing Heparin Sodium (Porcine) 50 (units/ Sodium Chloride 5 ml) 0 units IVFLUSH DAILY ANNA Last Admin: 02/11/23 08:39 Dose: 50 unit Documented By: ALVIN Comments: Diphenhydramine HCl (Diphenhydramine Hcl 50 Mg/Ml Vial) 25 mg IVPUSH Q4H PRN PRN Reason: Nausea and Vomiting Last Admin: 02/10/23 20:13 Dose: 25 mg Documented By: AIDA Docusate Sodium (Docusate Sodium 100 Mg Capsule) 100 mg PO DAILY [facility] Last Admin: 02/11/23 08:39 Dose: 100 mg Documented By: ALVIN Fluticasone/Vilanterol (Fluticasone/Vilanterol 200/25 Blst.W.Dev) 1 puff INHALE RDAILY [facility] Last Admin: 02/11/23 07:44 Dose: 1 puff Documented By: MO Hydromorphone HCl (Hydromorphone Hcl 2 Mg Tablet) 2 mg PO Q4H PRN PRN Reason: Pain, Severe (Pain Scale 7-10) Last Admin: 02/11/23 08:38 Dose: 2 mg Documented By: ALVIN Clindamycin Phosphate (Cleocin) 300 mg in 50 mls @ 100 mls/hr IV Q6H [facility] Last Admin: 02/11/23 11:17 Dose: Not Given Documented By: ALVIN Non-Admin Reason: Off Unit: Surgery Promethazine HCl 12.5 mg/ (Sodium Chloride) 50.5 mls @ 202 mls/hr IV Q4H PRN PRN Reason: nausea/vomiting Last Infusion: 02/10/23 17:51 Dose: Infused Documented By: JEFF Levetiracetam 750 mg/ Sodium (Chloride) 107.5 mls @ 430 mls/hr IV Q12H [facility] Last Admin: 02/11/23 11:17 Dose: Not Given Documented By: ALVIN Non-Admin Reason: Off Unit: Surgery Lactated Ringer's (Lr) 1,000 mls @ 100 mls/hr IVCONT .Q10H [facility] Last Admin: 02/11/23 05:10 Dose: 100 mls/hr Documented By: ADDY Nutrition (Parenteral) (Parenteral Nutrition) 2,350 mls @ 97.92 mls/hr IV .Q24H [facility]; Protocol Stop: 02/11/23 20:59 Last Admin: 02/10/23 21:34 Dose: 97.92 mls/hr Documented By: AIDA Nutrition (Parenteral) (Parenteral Nutrition) 2,350 mls @ 97.92 mls/hr IV .Q24H [facility]; Protocol Stop: 02/12/23 20:59 Clindamycin Phosphate (Cleocin) 900 mg in 50 mls @ 50 mls/hr IV POSTOP ONE Stop: 02/11/23 12:24 Magnesium Hydroxide (Milk Of Magnesia 30 Ml Oral.Susp) 30 ml PO DAILY PRN PRN Reason: Constipation Melatonin (Melatonin 3 Mg Tablet) 6 mg PO BEDTIME PRN PRN Reason: Insomnia Last Admin: 02/08/23 22:58 Dose: 6 mg Documented By: SENDY Omeprazole (Omeprazole 20 Mg Capsule.) 20 mg PO DAILY@0630 [facility] Last Admin: 02/11/23 05:10 Dose: 20 mg Documented By: ADDY Ondansetron HCl (Ondansetron Hcl 4 Mg/2 Ml Vial) 4 mg IVPUSH Q6H [facility] Last Admin: 02/11/23 08:39 Dose: 4 mg Documented By: ALVIN Pharmacy Consult (Consult Rx Parenteral Nutrition Ordering) 1 each MISCELLANE DAILY [facility] Polyethylene Glycol (Polyethylene Glycol 3350 17 Gm Powd.Pack) 17 gm PO DAILY [facility] Last Admin: 02/11/23 08:39 Dose: Not Given Documented By: ALVIN Non-Admin Reason: NPO Senna/Docusate Sodium (Sennosides/Docusate Sodium Tablet) 1 tab PO BEDTIME [facility] Last Admin: 02/10/23 20:15 Dose: 1 tab Documented By: AIDA Sodium Chloride (0.9 % Sodium Chloride Flush 3 Ml Syringe) 3 ml IVFLUSH QSHIFT [facility] Last Admin: 02/11/23 10:55 Dose: Not Given Documented By: ALVIN Non-Admin Reason: IV Running Tiotropium [place] (Tiotropium [place] 2.5 Mcg Inhaler) 2 puff INHALE RDAILY [facility] Last Admin: 02/11/23 07:44 Dose: 2 puff Documented By: MO Labs 02/11/23 11:28 02/11/23 07:17 Labs: Laboratory Results - last 24 hr 02/11/23 07:17 Anion Gap 12 Estim Creat Clear Calc 90.2 Estimated GFR > 60 Random Glucose 137 H Calcium 8.7 Phosphorus 3.5 Magnesium 2.6 Assessment and Plan (1) Chronic, continuous use of opioids: Status: Acute (2) Immunosuppression: Status: Acute (3) Spondylolisthesis, lumbar region: Status: Acute (4) Spondylosis of lumbar region without myelopathy or radiculopathy: Status: Acute (5) Chronic pain syndrome: Status: Acute (6) Abdominal pain: Status: Acute (7) Chronic pain: Status: Acute (8) Postdural puncture headache: Status: Acute Assessment and Plan: Plan 42yo F with Crohn's disease with TPN dependence, 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 since patient noted worsening of headache Continue IV hydromorphone, anti emetics O2 as needed to keep finger oximetry above 94 Stable electrolytes and CBC. NPO scheduled for blood patch by Dr. Pedroza Constipation resolved, continue Colace , Senokot, and MiraLax. Hypophosphatemia repleted and normalized intrathecal pain pump - on iv clindamycin for 14d postoperatively per Dr Pedroza. FEN- cont. home TPN, continue scheduled ondansetron + prn diphenhydramine for nausea, and prn IV promethazine. hx DVT/PE , Eliquis discontinued since patient scheduled for blood patch,will discuss resuming Eliquis with Dr. Pedroza Mild intermittent asthma no acute exacerbation -continue home inhalers- Breo, Incruse, prn albuterol seizure disorder -continue levetiracetam IV as currently PO intolerant,sz precautions VTE ppx Eliquis on hold discuss anticoagulation with Dr pedroza In my clinical judgment, the patient requires continued hospitalization for the following reasons: post-dural puncture headache on TPN, IV antibiotics, IV fluids and IV analgesics and need for surgical intervention for Time Spent With Patient Time: Total time managing care of this patient today ____ minutes. Quality Stroke Does the patient have a stroke diagnosis?: No VTE Prior VTE?: No VTE Risk Level:: Medical - moderate - high VTE Device Contraindication: Treatment Not Indicated VTE Drug Contraindication: N/A - Med Ordered
--- NOTE | 2023-02-11 11:30 | HO.ANESPROP2 ---
[facility] Active Problems Active Problems: All Active Problems (Updated 02/05/23 @ 11:30 by Manny Pedroza MD) Postdural puncture headache (Acute) Spinal headache (Acute) Cervicalgia (Acute) Acute low back pain (Acute) Chronic abdominal pain (Acute) Crohn's disease (Acute) Chronic, continuous use of opioids (Acute) Immunosuppression (Acute) Acute respiratory failure with hypoxia (Acute) Pneumonia due to COVID-19 virus (Acute) Chest pain (Acute) Contusion, back (Acute) Chronic pain (Acute) Pulmonary edema (Acute) Elbow injury (Acute) Abdominal pain (Acute) Behcet's disease (Acute) Spondylolisthesis, lumbar region (Acute) Spondylosis of lumbar region without myelopathy or radiculopathy (Acute) Chronic pain syndrome (Acute) Cervicalgia (Acute) Low back pain (Acute) Past Medical History Medical History Pulmonary emboli Absence seizure disorder DVT (deep venous thrombosis) Pyloric stenosis Asthma Common variable immunodeficiency Spondylolisthesis, lumbar region Spondylosis of lumbar region without myelopathy or radiculopathy Abdominal pain, chronic, generalized Gastroparesis Spontaneous pneumothorax Abdominal pain Chronic pain syndrome Cervicalgia Low back pain Crohn's disease Behcet's disease Family History Family History Father Hairy cell leukemia Family history of problems with anesthesia: No Surgical History Surgical History History of hernia surgery History of Problems with Anesthesia: No Social History Social History Household Members: Children Household Members Other:: son Housing: Condominium Do you presently have visiting nurse or other home services: No Alcohol intake: never Patient Tobacco Use Status: Never used Tobacco Smoked in Last 30 Days: No Use of substances other than those prescribed or required for medical reasons: No Currently Displaying Signs/Symptoms of Drug Intoxication Withdrawal: No Have you been hit, kicked, punched, or otherwise hurt by someone within the past year? If so, by whom?: No Do you feel safe in your current relationship?: No Current Relationship Is there a partner from a previous relationship who is making you feel unsafe now?: No Are you DNR?: No Advance Directives: Yes Advance Directives on File: Yes Advance Directives Date on File: 03/12/21 Do you have thoughts of harming others: None Do you have a plan to hurt others: No Plan Recently lost weight without trying: No Nutrition Risks: Gastrointestinal Malabsorption Patient : No : No Poor oral hygiene: No service: No Current occupational status: unemployed Meds Allergies Allergy/AdvReac Type Severity Reaction Status Date / Time ciprofloxacin [Cipro] Allergy Unknown Hives Verified 02/11/23 10:42 levofloxacin [Levaquin] Allergy Unknown Hives Verified 02/11/23 10:42 metoclopramide [Reglan] Allergy Unknown Hives Verified 02/11/23 10:42 ondansetron [Zofran] Allergy Unknown Itching Verified 02/11/23 10:42 penicillin V Allergy Unknown Hives Verified 02/11/23 10:42 prochlorperazine Allergy Unknown Shortness Verified 02/11/23 10:42 [From Compazine] of Breath Sulfa (Sulfonamide Allergy Unknown Hives Verified 02/11/23 10:42 Antibiotics) thalidomide [From Thalomid] Allergy Unknown Rash Verified 02/11/23 10:42 haloperidol [From Haldol] Allergy Itching Verified 02/11/23 10:42 Active Medications: Current Medications Acetaminophen (Acetaminophen 325 Mg Tablet) 650 mg PO Q6H PRN PRN Reason: Pain, Mild (Pain Scale 1-3) Last Admin: 02/10/23 23:51 Dose: 650 mg Acetaminophen/Butalbital/Caffeine (Butalb/Acetamin/Caff 50/325/40 Tablet) 1 tab PO Q4H PRN PRN Reason: Headache Last Admin: 02/10/23 23:51 Dose: 1 tab Acetaminophen/Butalbital/Caffeine (Butalb/Acetamin/Caff 50/325/40 Tablet) 1 tab PO Q4H PRN PRN Reason: Headache Albuterol Sulfate (Albuterol Sulfate 90 Mcg 8 Gm Inhaler) 2 puff INHALE Q4H PRN PRN Reason: Wheezing Heparin Sodium (Porcine) 50 (units/ Sodium Chloride 5 ml) 0 units IVFLUSH DAILY [facility] Last Admin: 02/11/23 08:39 Dose: 50 unit Diphenhydramine HCl (Diphenhydramine Hcl 50 Mg/Ml Vial) 25 mg IVPUSH Q4H PRN PRN Reason: Nausea and Vomiting Last Admin: 02/10/23 20:13 Dose: 25 mg Docusate Sodium (Docusate Sodium 100 Mg Capsule) 100 mg PO DAILY [facility] Last Admin: 02/11/23 08:39 Dose: 100 mg Fluticasone/Vilanterol (Fluticasone/Vilanterol 200/25 Blst.W.Dev) 1 puff INHALE RDAILY [facility] Last Admin: 02/11/23 07:44 Dose: 1 puff Hydromorphone HCl (Hydromorphone Hcl 2 Mg Tablet) 2 mg PO Q4H PRN PRN Reason: Pain, Severe (Pain Scale 7-10) Last Admin: 02/11/23 08:38 Dose: 2 mg Clindamycin Phosphate (Cleocin) 300 mg in 50 mls @ 100 mls/hr IV Q6H [facility] Last Admin: 02/11/23 11:17 Dose: Not Given Promethazine HCl 12.5 mg/ (Sodium Chloride) 50.5 mls @ 202 mls/hr IV Q4H PRN PRN Reason: nausea/vomiting Last Infusion: 02/10/23 17:51 Dose: Infused Levetiracetam 750 mg/ Sodium (Chloride) 107.5 mls @ 430 mls/hr IV Q12H [facility] Last Admin: 02/11/23 11:17 Dose: Not Given Lactated Ringer's (Lr) 1,000 mls @ 100 mls/hr IVCONT .Q10H [facility] Last Admin: 02/11/23 05:10 Dose: 100 mls/hr Nutrition (Parenteral) (Parenteral Nutrition) 2,350 mls @ 97.92 mls/hr IV .Q24H [facility]; Protocol Stop: 02/11/23 20:59 Last Admin: 02/10/23 21:34 Dose: 97.92 mls/hr Nutrition (Parenteral) (Parenteral Nutrition) 2,350 mls @ 97.92 mls/hr IV .Q24H [facility]; Protocol Stop: 02/12/23 20:59 Clindamycin Phosphate (Cleocin) 900 mg in 50 mls @ 50 mls/hr IV POSTOP ONE Stop: 02/11/23 12:24 Magnesium Hydroxide (Milk Of Magnesia 30 Ml Oral.Susp) 30 ml PO DAILY PRN PRN Reason: Constipation Melatonin (Melatonin 3 Mg Tablet) 6 mg PO BEDTIME PRN PRN Reason: Insomnia Last Admin: 02/08/23 22:58 Dose: 6 mg Omeprazole (Omeprazole 20 Mg Capsule.Dr) 20 mg PO DAILY@0630 [facility] Last Admin: 02/11/23 05:10 Dose: 20 mg Ondansetron HCl (Ondansetron Hcl 4 Mg/2 Ml Vial) 4 mg IVPUSH Q6H [facility] Last Admin: 02/11/23 08:39 Dose: 4 mg Pharmacy Consult (Consult Rx Parenteral Nutrition Ordering) 1 each MISCELLANE DAILY [facility] Polyethylene Glycol (Polyethylene Glycol 3350 17 Gm Powd.Pack) 17 gm PO DAILY [facility] Last Admin: 02/11/23 08:39 Dose: Not Given Senna/Docusate Sodium (Sennosides/Docusate Sodium Tablet) 1 tab PO BEDTIME [facility] Last Admin: 02/10/23 20:15 Dose: 1 tab Sodium Chloride (0.9 % Sodium Chloride Flush 3 Ml Syringe) 3 ml IVFLUSH QSHIFT [facility] Last Admin: 02/11/23 10:55 Dose: Not Given Tiotropium [place] (Tiotropium [place] 2.5 Mcg Inhaler) 2 puff INHALE RDAILY [facility] Last Admin: 02/11/23 07:44 Dose: 2 puff Home Medications Medication Instructions Recorded Confirmed Last Taken Type albuterol sulfate 90 mcg/actuation 2 puff inhalation Q4H PRN Wheezing 12/12/20 02/05/23 02/04/23 History aerosol inhaler fluticasone furoate 200 1 inh inhalation Q24H 12/12/20 02/05/23 02/04/23 History mcg-vilanterol 25 mcg/dose inhalation powder (Breo Ellipta) umeclidinium 62.5 mcg/actuation 1 inh inhalation DAILY 12/12/20 02/05/23 02/04/23 History blister powder for inhalation (Incruse Ellipta) diphenhydramine HCl 50 mg/mL 25 mg IV QID PRN Nausea 03/12/21 02/05/23 02/04/23 History injection solution ondansetron HCl (PF) 4 mg/2 mL 4 mg IV QID PRN Nausea 03/12/21 02/05/23 02/04/23 History injection solution levetiracetam 100 mg/mL oral 700 mg PO BID 08/18/21 02/05/23 02/04/23 History solution (Keppra) promethazine 25 mg tablet 25 mg PO QID PRN Nausea And 08/18/21 02/05/23 02/04/23 History Vomiting adalimumab 40 mg/0.4 mL 40 mg subcut Q2W 02/05/23 02/05/23 02/04/23 History subcutaneous pen kit (Humira(CF) Pen) pantoprazole 40 mg tablet,delayed 40 mg PO DAILY PRN ACID REFLEX 02/05/23 02/05/23 02/04/23 History release Exam Exam Date and Time: February 11, 2023 1130 Height,Weight and Vital Signs: Height 4 ft 11 in Weight 68.5 kg Last Vital Signs Temp 99.8 F 02/11/23 10:54 Pulse 82 02/11/23 10:54 Resp 20 02/11/23 10:54 BP 124/74 02/11/23 10:54 Pulse Ox 95 02/11/23 10:54 O2 Del Method Room Air 02/11/23 10:54 Pertinent Lab Results Pertinent Lab Results: Laboratory Tests 02/04/23 02/05/23 02/05/23 21:04 05:25 12:34 WBC 7.7 RBC 3.98 L Hgb 11.9 L Hct 35.0 L MCV 87.9 MCH 29.9 MCHC 34.0 RDW 12.8 Plt Count 215 MPV 10.4 Immature Gran % (Auto) 0.3 Neut % (Auto) 80.0 H Lymph % (Auto) 13.4 L [place] % (Auto) 5.7 Eos % (Auto) 0.1 Baso % (Auto) 0.5 Lymph # (Auto) 1.0 L [place] # (Auto) 0.4 Eos # (Auto) 0.0 Baso # (Auto) 0.0 Abs Immat Gran (auto) 0.02 Absolute Neuts (auto) 6.2 Absolute Nucleated RBC 0.000 Nucleated RBC % (auto) 0.0 Smear Tech's Comments VERIFIED PT INR APTT Sodium 143 144 Potassium 3.8 4.0 Chloride 108 111 H Carbon Dioxide 25 24 Anion Gap 14 13 BUN 13 11 Creatinine 0.82 0.78 Estim Creat Clear Calc 70.1 73.7 Estimated GFR > 60 > 60 Random Glucose 173 H 105 Calcium 9.2 D 8.9 Phosphorus 3.6 Magnesium 2.2 Total Bilirubin 0.5 AST 11 ALT 9 Alkaline Phosphatase 41 Total Protein 6.2 L Albumin 3.9 Triglycerides 74 Beta HCG, Quant 6 02/06/23 02/07/23 02/08/23 05:17 08:32 05:55 WBC RBC Hgb Hct MCV MCH MCHC RDW Plt Count MPV Immature Gran % (Auto) Neut % (Auto) Lymph % (Auto) [place] % (Auto) Eos % (Auto) Baso % (Auto) Lymph # (Auto) [place] # (Auto) Eos # (Auto) Baso # (Auto) Abs Immat Gran (auto) Absolute Neuts (auto) Absolute Nucleated RBC Nucleated RBC % (auto) Smear Tech's Comments PT INR APTT Sodium 139 140 140 Potassium 3.7 3.6 4.0 Chloride 104 108 107 Carbon Dioxide 26 25 22 Anion Gap 13 11 L 15 BUN 10 10 12 Creatinine 0.65 0.67 0.65 Estim Creat Clear Calc 92.9 90.2 92.9 Estimated GFR > 60 > 60 > 60 Random Glucose 139 H 125 H 130 H Calcium 8.9 8.9 8.7 Phosphorus 2.5 L 1.9 L 3.2 Magnesium 2.1 2.4 2.2 Total Bilirubin AST ALT Alkaline Phosphatase Total Protein Albumin Triglycerides Beta HCG, Quant 02/08/23 02/09/23 02/10/23 09:36 09:09 06:13 WBC 7.0 4.8 RBC 3.86 L 3.67 L Hgb 11.5 L 11.0 L Hct 33.9 L 32.3 L MCV 87.8 88.0 MCH 29.8 30.0 MCHC 33.9 34.1 RDW 12.7 12.6 Plt Count 176 182 MPV 10.9 10.8 Immature Gran % (Auto) Neut % (Auto) Lymph % (Auto) [place] % (Auto) Eos % (Auto) Baso % (Auto) Lymph # (Auto) [place] # (Auto) Eos # (Auto) Baso # (Auto) Abs Immat Gran (auto) Absolute Neuts (auto) Absolute Nucleated RBC 0.000 0.000 Nucleated RBC % (auto) 0.0 0.0 Smear Tech's Comments PT 14.4 H D 13.4 H INR 1.2 H 1.1 APTT 33.4 Sodium 142 138 Potassium 4.2 4.1 Chloride 106 104 Carbon Dioxide 29 26 Anion Gap 11 L 12 BUN 12 13 Creatinine 0.68 0.70 Estim Creat Clear Calc 88.8 86.3 Estimated GFR > 60 > 60 Random Glucose 119 H 112 Calcium 9.0 8.8 Phosphorus 3.8 4.0 Magnesium 2.3 2.3 Total Bilirubin AST ALT Alkaline Phosphatase Total Protein Albumin Triglycerides Beta HCG, Quant 02/11/23 07:17 WBC RBC Hgb Hct MCV MCH MCHC RDW Plt Count MPV Immature Gran % (Auto) Neut % (Auto) Lymph % (Auto) [place] % (Auto) Eos % (Auto) Baso % (Auto) Lymph # (Auto) [place] # (Auto) Eos # (Auto) Baso # (Auto) Abs Immat Gran (auto) Absolute Neuts (auto) Absolute Nucleated RBC Nucleated RBC % (auto) Smear Tech's Comments PT INR APTT Sodium 140 Potassium 4.1 Chloride 107 Carbon Dioxide 25 Anion Gap 12 BUN 13 Creatinine 0.67 Estim Creat Clear Calc 90.2 Estimated GFR > 60 Random Glucose 137 H Calcium 8.7 Phosphorus 3.5 Magnesium 2.6 Total Bilirubin AST ALT Alkaline Phosphatase Total Protein Albumin Triglycerides Beta HCG, Quant Airway Mallampati Class: III TM Dist: >3cm Neck ROM: Full Assessment and Plan Assessment Anesthesia Assessment: Anesthesia Plan Discussed and Chart Reviewed Final Anesthetic Review Family History of Problems with Anesthesia: No History of Problems with Anesthesia: No NPO: Yes ASA Class: III Final Preanesthetic Review: No Changes in Pt Med Stat, Meds/Allgs Chart Reviewed, Consent Obtained/Reviewed and Anes Risks/Benef Reviewed Patient Risk: Intermediate Procedure Risk: Low Anesthetic Plan Anesthetic Plan: MAC:
[2023-02-11 11:33] LABS: MANUAL DIFF FLAG NO
[2023-02-11 11:52] LABS: Basophils Percent Auto 0.5 % (0-2); Eosinophils Absolute Auto 0.2 X10*3/uL (0.0-0.4); Eosinophils Percent Auto 2.8 % (0-4); Hematocrit 35.8 % (37.0-47.0); Hemoglobin 11.9 g/dl (12.0-16.0); Imm Gran Abs Auto 0.03 X10*3/uL (0.00-0.03); Imm Gran Pct Auto 0.5 % (0.0-0.4); Lymphocytes Percent Auto 17.4 % (20-40); Mean Corpuscular HGB Conc 33.2 g/dl (31.0-35.0); Mean Corpuscular Hemoglobin 29.8 pg (27.0-33.0); Mean Corpuscular Volume 89.5 fL (80.0-98.0); Mean Platelet Volume 11.4 fL (9.4-12.3); Monocytes Absolute Auto 0.5 X10*3/uL (0.1-1.2); Monocytes Percent Auto 9.2 % (2-11); Neutrophils Absolute Auto 3.9 x10*3/uL (2.0-8.3); Neutrophils Percent Auto 69.6 % (45-73); Platelet Count 201 X10*3/uL (160-400); Red Cell Distribution Width 13.1 % (11.0-16.0); White Blood Count 5.6 X10*3/uL (4.8-10.8)
--- NOTE | 2023-02-11 12:41 | HE.PHANOTE ---
RE CLINDA PREOP MESSAGED PROVIDER ABOUT THE CLINDAMYCIN BEING PUT IN A POST OP AND NOT A PREOP. NEVER GOT RESPONSE. CHANGED ORDER TO PREOP SO THAT PATIENT CAN GET MED BEFORE SURGERY. THERE WAS A PYXIS PULL FROM PACU THAT MATCHED THE POST OP ORDER TIME LEADING ME TO BELIEVE IT WAS IN FACT A PREOP ORDER LOLITA
--- NOTE | 2023-02-11 12:59 | MHC.CM.PN ---
Per MD rounds no discharge today. Patient scheduled for a BLOOD Patch in the OR. DP home no services. Patient will arranfe for transport home.
--- NOTE | 2023-02-11 13:00 | PM.OP ---
Brief Operative Note Date of Service: 02/11/23 Pre-op diagnosis: Post dural puncture headache Post-op diagnosis: same Procedure: Image guided epidural blood patch, made with intrathecal catheter contrast visualization, intrathecal pump postoperative adjustment. Implants: None Surgeon: Manny Pedroza MD Anesthesia: MAC Was an Material Handler Loader used for this Procedure?: No Estimated blood loss (mL): 0 Condition: stable Disposition: PACU
--- NOTE | 2023-02-11 13:02 | P.OP_ITS ---
Operative Note Operative Note Date of Service: 02/11/23 Narrative: Image guided epidural blood patch, made with intrathecal catheter contrast visualization, intrathecal pump postoperative adjustment. Informed consent was thoroughly explained to the patient risks of epidural hematoma and epidural abscess were explained to the patient. Benefits and alternatives were also explained to the patient. She agreed to go for the procedure. The patient came to the operating room and she was positioned supine on the stretcher. [place] [employer] monitors were applied and patient was minimally sedated. Time-out was performed delineating correct site and side of the procedure name date of of the patient, allergies of the patient risks and benefits. Right wrist of the patient was prepped with ChloraPrep and draped with sterile utility towels. A line pressure line was prepared without heparin. Seldinger technique was used to puncture right radial artery, insert guidewire, and inserted the A-line catheter over the guidewire into the radial artery. A line was connected to the pressure line. After that patient was transferred to the operating table prone dressings were removed from the previous I DDD sites implantation incisions. The lower back was prepped with ChloraPrep and draped with full body sterile drape. Sterilely draped C-arm was brought over the operating field and sq picture of the pain pump was demonstrated on the screen. Noncoring 25 gauge needle was connected to the extension tubing and connected to 10 cc syringe, the needle was - advanced to the side port of the pain pump and aspiration of the CSF was performed. Free flow of CSF in the amount of 1 cc without air bubbles was demonstrated in the syringe. After that 0.2 mL of the Isovue M contrast was injected into the intrathecal catheter. This visualized intrathecal catheter and visualized that intrathecal catheter is entering the L1-L2 inter laminar space on the right side. 20 gauge epidural Touhy needle was inserted in the projection of the upper portion of the left lamina of L2 vertebra and was slowly advanced to were the epidural space on anterior posterior and lateral views. Loss of resistance to air technique was used to locate epidural space. When loss of resistance to air felt small amount of the contrast was injected into the epidural space demonstrating epidurogram. After that from the A-line 22.5 cc of the arterial blood was obtained under strict sterile conditions and it was slowly injected into the epidural space. Upon completion of the injection epidural needle w was removed. Intrathecal catheter was demonstrated on the image at least 5 mm to the right from the tip of the epidural needle on the other side of the spinous process image. After that attention was returned to the side port of the pain pump aspiration was performed again demonstrating free flow of the CSF, that removed contrast from the catheter. After that 10 cc sterile preservative-free normal saline was slowly injected into the intrathecal catheter. Upon completion of the injection 25 gauge noncoring needle was removed and sterile dressings were applied to the sites of the procedure and the incision lines of the pump implant. The patient tolerated procedure well she was taking outside of the operating room to recovery room.
--- NOTE | 2023-02-11 13:41 | MHC.CLN ---
F/U PATIENT RECEIVING TPN. PT CURRENTLY NPO FOR SCHEDULED PROCEDURE IN OR PREVIOUS INTAKE MOST MEALS 0-50%; HX MALABSORPTION TPN ORDERED PER HOME ADMINISTRATION TPN WITH LIPIDS PROVIDES 1460 KCALS (29.6 KCALS/KG CMW); 70 G PROTEIN (1.4 G/KG CMW), DEXTROSE 200 G; LIPIDS 50 G (X 5 DAYS, NOT ON TUESDAY OR TUESDAY) LABS REVIEWED COMMUNICATED WITH PHARMACY RECOMMEND CONTINUE CURRENT TPN ORDERS REPLETE LYTES NEEDED
[2023-02-11] MEDS: diphenhydrAMINE HCL 50 MG/ML VIAL 25 MG IVPUSH ×2 (15:30→20:09)
[2023-02-11] MEDS: Sennosides/Docusate Sodium TABLET 1 TAB PO (20:08)
[2023-02-11] MEDS: 0.9 % Sodium Chloride Flush 3 ML SYRINGE IVFLUSH (20:09)
[2023-02-12] MEDS: levETIRAcetam 750 MG in 0.9 % Sodium Chloride 100 ML 430 MG IV ×3 (00:44→22:38)
[2023-02-12] MEDS: HYDROmorphone HCl 2 MG TABLET PO ×5 (02:43→21:57)
[2023-02-12] MEDS: ondansetron HCL 4 MG/2 ML VIAL IVPUSH ×4 (02:43→20:14)
[2023-02-12] MEDS: diphenhydrAMINE HCL 50 MG/ML VIAL 25 MG IVPUSH ×3 (02:47→12:57)
[2023-02-12 02:53] VITALS: BP 116/70; PULSE 77; RESP 20; TEMP 36.5; O2SAT 96
[2023-02-12] MEDS: Clindamycin Phosphate/D5W 300 MG/50 ML PIGGYBACK 100 MG IV ×4 (05:52→21:55)
[2023-02-12] MEDS: Omeprazole 20 MG CAPSULE.DR PO (05:55)
[2023-02-12 07:50] VITALS: BP 121/65; PULSE 72; RESP 20; TEMP 36.9; O2SAT 98
[2023-02-12] MEDS: Docusate Sodium 100 MG CAPSULE PO (08:27)
[2023-02-12] MEDS: polyethylene glycoL 3350 17 GM POWD.PACK PO (08:27)
[2023-02-12 09:07] LABS: Anion Gap 12 (12-20); Blood Urea Nitrogen 12 mg/dL (9-16); Calcium 8.7 mg/dL (8.4-10.2); Carbon Dioxide 23 mmol/L (22-29); Chloride 110 mmol/L (96-108); Creatinine Clr Calc Pharmacy 87.6; Estimated Glomerular Filt Rate > 60; Glucose Random 131 mg/dL (60-115); Magnesium 2.5 mg/dL (1.6-2.6); Phosphorus 3.2 mg/dL (2.7-4.5); Potassium 3.9 mmol/L (3.3-5.1); Sodium 141 mmol/L (135-145)
[2023-02-12 09:51] LABS: Albumin Level 3.6 g/dL (3.5-5.0); Triglycerides 74 mg/dL (<150)
--- NOTE | 2023-02-12 10:23 | HO.POSTANES ---
Post Anesthesia Evaluation Post Anesthesia Evaluation Date of Service: 02/12/23 Vital Signs: Vital Signs Temp Pulse Resp BP Pulse Ox O2 Del Method 02/12/23 07:50 98.4 F 72 20 121/65 98 Room Air 02/12/23 02:53 97.7 F 77 20 116/70 96 Room Air Anesthesia: Monitored Mental Status: Awake Pain Control: Satisfactory Nausea/Vomiting: None Hydration: Adequate Anesthesia-Related Issues: No Anes. Related Issues
[2023-02-12] MEDS: Lactated Ringers 1,000 ML 100 ML IVCONT (11:32)
[2023-02-12 13:02] VITALS: BP 110/59; PULSE 82; RESP 16; O2SAT 98
--- NOTE | 2023-02-12 15:42 | P.PNIM_ITS ---
Subjective Subjective Date of Service: 02/12/23 Interval History: No acute issues. Still with mild headache Review of Systems Denies chest pain Denies shortness of breath Denies nausea vomiting diarrhea Denies fever chills Physical Exam 2 Vital Signs: Vital Signs: Last Vital Signs Temp 98.4 F 02/12/23 07:50 Pulse 82 02/12/23 13:02 Resp 16 02/12/23 13:02 BP 110/59 L 02/12/23 13:02 Pulse Ox 98 02/12/23 13:02 O2 Del Method Room Air 02/12/23 13:02 BMI result Body Mass Index 30.5 Const: Other: No acute issues overnight resting quietly Resp: Other: Clear to auscultation bilaterally no rales rhonchi or wheezes Cardio: Other: No S4; positive S1-S2; no S3 murmurs rubs or gallops GI: Other: Soft nontender nondistended normoactive bowel sounds Neuro: Other: Cranial nerves 2 through 12 grossly intact as tested. Motor 5/5 all extremities. Sensation is intact cognition appropriate Extrem: Other: No edema bilaterally Objective Data Active Medications Acetaminophen (Acetaminophen 325 Mg Tablet) 650 mg PO Q6H PRN PRN Reason: Pain, Mild (Pain Scale 1-3) Last Admin: 02/10/23 23:51 Dose: 650 mg Documented By: AIDA Acetaminophen/Butalbital/Caffeine (Butalb/Acetamin/Caff 50/325/40 Tablet) 1 tab PO Q4H PRN PRN Reason: Headache Last Admin: 02/10/23 23:51 Dose: 1 tab Documented By: AIDA Acetaminophen/Butalbital/Caffeine (Butalb/Acetamin/Caff 50/325/40 Tablet) 1 tab PO Q4H PRN PRN Reason: Headache Albuterol Sulfate (Albuterol Sulfate 90 Mcg 8 Gm Inhaler) 2 puff INHALE Q4H PRN PRN Reason: Wheezing Heparin Sodium (Porcine) 50 (units/ Sodium Chloride 5 ml) 0 units IVFLUSH DAILY [facility] Last Admin: 02/12/23 08:28 Dose: Not Given Documented By: GWEN Non-Admin Reason: IV Running Diphenhydramine HCl (Diphenhydramine Hcl 50 Mg/Ml Vial) 25 mg IVPUSH Q4H PRN PRN Reason: Nausea and Vomiting Last Admin: 02/12/23 12:57 Dose: 25 mg Documented By: GWEN Docusate Sodium (Docusate Sodium 100 Mg Capsule) 100 mg PO DAILY [facility] TO [facility] Last Admin: 02/12/23 08:27 Dose: 100 mg Documented By: GWEN Fentanyl (Fentanyl Citrate/Pf 100 Mcg/2 Ml Vial) 50 mcg IVPUSH Q5M PRN; Protocol PRN Reason: Pain, Severe (Pain Scale 7-10) Fluticasone/Vilanterol (Fluticasone/Vilanterol 200/25 Blst.W.Dev) 1 puff INHALE RDAILY [facility] Last Admin: 02/12/23 07:44 Dose: Not Given Documented By: MO Non-Admin Reason: Patient Asleep Hydromorphone HCl (Hydromorphone Hcl 2 Mg Tablet) 2 mg PO Q4H PRN PRN Reason: Pain, Severe (Pain Scale 7-10) Last Admin: 02/12/23 12:58 Dose: 2 mg Documented By: GWEN Clindamycin Phosphate (Cleocin) 300 mg in 50 mls @ 100 mls/hr IV Q6H [facility] Last Infusion: 02/12/23 13:02 Dose: Infused Documented By: GWEN Promethazine HCl 12.5 mg/ (Sodium Chloride) 50.5 mls @ 202 mls/hr IV Q4H PRN PRN Reason: nausea/vomiting Last Infusion: 02/10/23 17:51 Dose: Infused Documented By: JEFF Levetiracetam 750 mg/ Sodium (Chloride) 107.5 mls @ 430 mls/hr IV Q12H [facility] Last Infusion: 02/12/23 11:50 Dose: Infused Documented By: GWEN Lactated Ringer's (Lr) 1,000 mls @ 100 mls/hr IVCONT .Q10H [facility] Last Admin: 02/12/23 11:32 Dose: 100 mls/hr Documented By: GWEN Nutrition (Parenteral) (Parenteral Nutrition) 2,350 mls @ 97.92 mls/hr IV .Q24H [facility]; Protocol Stop: 02/12/23 20:59 Last Admin: 02/11/23 21:59 Dose: 97.92 mls/hr Documented By: TUMASY Nutrition (Parenteral) (Parenteral Nutrition) 2,400 mls @ 97.92 mls/hr IV .Q24H [facility]; Protocol Stop: 02/13/23 20:58 Magnesium Hydroxide (Milk Of Magnesia 30 Ml Oral.Susp) 30 ml PO DAILY PRN PRN Reason: Constipation Melatonin (Melatonin 3 Mg Tablet) 6 mg PO BEDTIME PRN PRN Reason: Insomnia Last Admin: 02/08/23 22:58 Dose: 6 mg Documented By: SENDY Omeprazole (Omeprazole 20 Mg Capsule.Dr) 20 mg PO DAILY@0630 [facility] Last Admin: 02/12/23 05:55 Dose: 20 mg Documented By: SWAPNIL Ondansetron HCl (Ondansetron Hcl 4 Mg/2 Ml Vial) 4 mg IVPUSH Q6H [facility] Last Admin: 02/12/23 12:57 Dose: 4 mg Documented By: GWEN Pharmacy Consult (Consult Rx Parenteral Nutrition Ordering) 1 each MISCELLANE DAILY [facility] Polyethylene Glycol (Polyethylene Glycol 3350 17 Gm Powd.Pack) 17 gm PO DAILY [facility] Last Admin: 02/12/23 08:27 Dose: 17 gm Documented By: GWEN Senna/Docusate Sodium (Sennosides/Docusate Sodium Tablet) 1 tab PO BEDTIME [facility] Last Admin: 02/11/23 20:08 Dose: 1 tab Documented By: GÓMEZ Sodium Chloride (0.9 % Sodium Chloride Flush 3 Ml Syringe) 3 ml IVFLUSH QSHIFT [facility] Last Admin: 02/12/23 08:45 Dose: Not Given Documented By: GWEN Non-Admin Reason: IV Running Tiotropium [place] (Tiotropium [place] 2.5 Mcg Inhaler) 2 puff INHALE RDAILY [facility] Last Admin: 02/12/23 07:45 Dose: Not Given Documented By: MO Non-Admin Reason: Patient Asleep Labs 02/11/23 11:28 02/12/23 07:59 Labs: Laboratory Results - last 24 hr 02/12/23 07:59 Anion Gap 12 Estim Creat Clear Calc 87.6 Estimated GFR > 60 Random Glucose 131 H Calcium 8.7 Phosphorus 3.2 Magnesium 2.5 Albumin 3.6 Triglycerides 74 Assessment and Plan (1) Spinal headache: Status: Acute (2) Postdural puncture headache: Status: Acute Assessment and Plan: Plan 42yo F with Crohn's disease with TPN dependence, 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 Respond well to blood packed 1.Spinal Headache -current pain regimen acceptable -adjust as clinically indicated 2.S/P Intrathecal pain pump -per Dr. Pedroza can IV clindamycin q.6 hours times 14 days(7) 3. Crohn's disease -TPN as ordered 4.Hx DVT/PE -held for procedure -restart as per pain management In my clinical judgment, the patient requires continued hospitalization for the following reasons: post-dural puncture headache on TPN, IV antibiotics, IV fluids and IV analgesics and need for surgical intervention for Time Spent With Patient Time: Total time managing care of this patient today ____ minutes. Quality Stroke Does the patient have a stroke diagnosis?: No VTE Prior VTE?: No VTE Risk Level:: Medical - moderate - high VTE Device Contraindication: Treatment Not Indicated VTE Drug Contraindication: N/A - Med Ordered
[2023-02-12 15:44] VITALS: BP 119/57; PULSE 78; RESP 18; TEMP 36; O2SAT 96
[2023-02-12] MEDS: 0.9 % Sodium Chloride Flush 3 ML SYRINGE IVFLUSH (16:06)
[2023-02-12 19:36] VITALS: BP 110/68; PULSE 69; RESP 17; TEMP 36.4; O2SAT 98
[2023-02-12] MEDS: Sennosides/Docusate Sodium TABLET 1 TAB PO (20:14)
[2023-02-12] MEDS: Parenteral Nutrition 2,400 ML 97.92 ML IV (20:23)
[2023-02-12] MEDS: Butalb/Acetamin/Caff 50/325/40 TABLET 1 TAB PO (20:32)
[2023-02-13] MEDS: ondansetron HCL 4 MG/2 ML VIAL IVPUSH ×4 (01:28→20:14)
[2023-02-13] MEDS: diphenhydrAMINE HCL 50 MG/ML VIAL 25 MG IVPUSH ×4 (01:31→20:20)
[2023-02-13] MEDS: 0.9 % Sodium Chloride Flush 3 ML SYRINGE IVFLUSH ×3 (01:45→16:33)
[2023-02-13 03:26] VITALS: BP 116/55; PULSE 69; RESP 14; TEMP 36.1; O2SAT 97
[2023-02-13] MEDS: Clindamycin Phosphate/D5W 300 MG/50 ML PIGGYBACK 100 MG IV ×4 (06:24→22:08)
[2023-02-13] MEDS: Omeprazole 20 MG CAPSULE.DR PO (06:25)
[2023-02-13 07:39] VITALS: BP 113/55; PULSE 70; RESP 16; TEMP 36; O2SAT 97
[2023-02-13] MEDS: HYDROmorphone HCl 2 MG TABLET PO ×3 (07:59→21:09)
[2023-02-13] MEDS: Docusate Sodium 100 MG CAPSULE PO (07:59)
[2023-02-13] MEDS: Fluticasone/Vilanterol 200/25 BLST.W.DEV 1 PUFF INHALE (08:00)
[2023-02-13 08:02] VITALS: PULSE 75; RESP 16; O2SAT 96
[2023-02-13 08:15] LABS: Hematocrit 33.3 % (37.0-47.0); Mean Corpuscular Hemoglobin 29.9 pg (27.0-33.0); Mean Corpuscular Volume 90.5 fL (80.0-98.0); Mean Platelet Volume 11.9 fL (9.4-12.3); Platelet Count 224 X10*3/uL (160-400); Red Blood Count 3.68 X10*6/uL (4.20-5.50); Red Cell Distribution Width 13.7 % (11.0-16.0)
[2023-02-13 08:38] LABS: Anion Gap 14 (12-20); Blood Urea Nitrogen 14 mg/dL (9-16); Calcium 8.9 mg/dL (8.4-10.2); Carbon Dioxide 20 mmol/L (22-29); Chloride 109 mmol/L (96-108); Creatinine Clr Calc Pharmacy 88.8; Estimated Glomerular Filt Rate > 60; Glucose Random 135 mg/dL (60-115); Magnesium 2.5 mg/dL (1.6-2.6); Phosphorus 3.6 mg/dL (2.7-4.5); Potassium 4.1 mmol/L (3.3-5.1); Sodium 139 mmol/L (135-145)
[2023-02-13] MEDS: Butalb/Acetamin/Caff 50/325/40 TABLET 1 TAB PO (10:00)
[2023-02-13] MEDS: levETIRAcetam 750 MG in 0.9 % Sodium Chloride 100 ML 430 MG IV ×2 (10:00→22:59)
--- NOTE | 2023-02-13 12:25 | HO.PM.IMPN ---
Subjective Subjective Date of Service: 02/13/23 Interval History: . Still with postural headache however improved. Some mild nausea Review of Systems Denies chest pain Denies shortness of breath Denies nausea vomiting diarrhea Denies fever chills Physical Exam Vital Signs: Vital Signs: Last Vital Signs Temp 96.8 F 02/13/23 07:39 Pulse 75 02/13/23 08:02 Resp 16 02/13/23 08:02 BP 113/55 L 02/13/23 07:39 Pulse Ox 97 02/13/23 07:39 O2 Del Method Room Air 02/13/23 07:39 BMI result Body Mass Index 30.5 Const: Other: No acute issues overnight resting quietly Resp: Other: Clear to auscultation bilaterally no rales rhonchi or wheezes Cardio: Other: No S4; positive S1-S2; no S3 murmurs rubs or gallops GI: Other: Soft nontender nondistended normoactive bowel sounds Neuro: Other: Cranial nerves 2 through 12 grossly intact as tested. Motor 5/5 all extremities. Sensation is intact cognition appropriate Extrem: Other: No edema bilaterally Objective Data Active Medications Acetaminophen (Acetaminophen 325 Mg Tablet) 650 mg PO Q6H PRN PRN Reason: Pain, Mild (Pain Scale 1-3) Last Admin: 02/10/23 23:51 Dose: 650 mg Documented By: AIDA Acetaminophen/Butalbital/Caffeine (Butalb/Acetamin/Caff 50/325/40 Tablet) 1 tab PO Q4H PRN PRN Reason: Headache Last Admin: 02/13/23 10:00 Dose: 1 tab Documented By: GWEN Acetaminophen/Butalbital/Caffeine (Butalb/Acetamin/Caff 50/325/40 Tablet) 1 tab PO Q4H PRN PRN Reason: Headache Albuterol Sulfate (Albuterol Sulfate 90 Mcg 8 Gm Inhaler) 2 puff INHALE Q4H PRN PRN Reason: Wheezing Heparin Sodium (Porcine) 50 (units/ Sodium Chloride 5 ml) 0 units IVFLUSH DAILY [facility] Last Admin: 02/13/23 07:59 Dose: Not Given Documented By: GWEN Non-Admin Reason: IV Running Diphenhydramine HCl (Diphenhydramine Hcl 50 Mg/Ml Vial) 25 mg IVPUSH Q4H PRN PRN Reason: Nausea and Vomiting Last Admin: 02/13/23 07:58 Dose: 25 mg Documented By: GWEN Docusate Sodium (Docusate Sodium 100 Mg Capsule) 100 mg PO DAILY [facility] Last Admin: 02/13/23 07:59 Dose: 100 mg Documented By: GWEN Fentanyl (Fentanyl Citrate/Pf 100 Mcg/2 Ml Vial) 50 mcg IVPUSH Q5M PRN; Protocol PRN Reason: Pain, Severe (Pain Scale 7-10) Fluticasone/Vilanterol (Fluticasone/Vilanterol 200/25 Blst.W.Dev) 1 puff INHALE RDAILY [facility] Last Admin: 02/13/23 08:00 Dose: 1 puff Documented By: MO Hydromorphone HCl (Hydromorphone Hcl 2 Mg Tablet) 2 mg PO Q4H PRN PRN Reason: Pain, Severe (Pain Scale 7-10) Last Admin: 02/13/23 07:59 Dose: 2 mg Documented By: GWEN Clindamycin Phosphate (Cleocin) 300 mg in 50 mls @ 100 mls/hr IV Q6H [facility] Last Infusion: 02/13/23 10:58 Dose: Infused Documented By: GWEN Promethazine HCl 12.5 mg/ (Sodium Chloride) 50.5 mls @ 202 mls/hr IV Q4H PRN PRN Reason: nausea/vomiting Last Infusion: 02/10/23 17:51 Dose: Infused Documented By: JEFF Levetiracetam 750 mg/ Sodium (Chloride) 107.5 mls @ 430 mls/hr IV Q12H [facility] Last Infusion: 02/13/23 10:16 Dose: Infused Documented By: GWEN Nutrition (Parenteral) (Parenteral Nutrition) 2,350 mls @ 97.92 mls/hr IV .Q24H [facility]; Protocol Stop: 02/13/23 20:59 Last Admin: 02/12/23 20:23 Dose: 97.92 mls/hr Documented By: LURDES Magnesium Hydroxide (Milk Of Magnesia 30 Ml Oral.Susp) 30 ml PO DAILY PRN PRN Reason: Constipation Melatonin (Melatonin 3 Mg Tablet) 6 mg PO BEDTIME PRN PRN Reason: Insomnia Last Admin: 02/08/23 22:58 Dose: 6 mg Documented By: SENDY Omeprazole (Omeprazole 20 Mg Natalio.) 20 mg PO DAILY@0630 [facility] Last Admin: 02/13/23 06:25 Dose: 20 mg Documented By: SWAPNIL Ondansetron HCl (Ondansetron Hcl 4 Mg/2 Ml Vial) 4 mg IVPUSH Q6H [facility] Last Admin: 02/13/23 07:58 Dose: 4 mg Documented By: GWEN Pharmacy Consult (Consult Rx Parenteral Nutrition Ordering) 1 each MISCELLANE DAILY [facility] Polyethylene Glycol (Polyethylene Glycol 3350 17 Gm Powd.Pack) 17 gm PO DAILY [facility] Last Admin: 02/13/23 07:59 Dose: Not Given Documented By: GWEN Non-Admin Reason: Patient Refused Senna/Docusate Sodium (Sennosides/Docusate Sodium Tablet) 1 tab PO BEDTIME [facility] Last Admin: 02/12/23 20:14 Dose: 1 tab Documented By: LURDES Sodium Chloride (0.9 % Sodium Chloride Flush 3 Ml Syringe) 3 ml IVFLUSH QSHIFT [facility] Last Admin: 02/13/23 06:25 Dose: 3 ml Documented By: SWAPNIL Tiotropium King (Tiotropium [place] 2.5 Mcg Inhaler) 2 puff INHALE RDAILY [facility] Last Admin: 02/13/23 08:00 Dose: 2 puff Documented By: MO Labs 02/13/23 06:42 02/13/23 06:42 Labs: Laboratory Results - last 24 hr 02/13/23 06:42 MCV 90.5 MCH 29.9 MCHC 33.0 RDW 13.7 Plt Count 224 MPV 11.9 Absolute Nucleated RBC 0.000 Nucleated RBC % (auto) 0.0 Anion Gap 14 Estim Creat Clear Calc 88.8 Estimated GFR > 60 Random Glucose 135 H Calcium 8.9 Phosphorus 3.6 Magnesium 2.5 Assessment and Plan (1) Postdural puncture headache: Status: Acute Assessment and Plan: (2) Crohn's disease: Status: Acute Plan 42yo F with Crohn's disease with TPN dependence, 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 Respond well to blood packed 1.Spinal Headache -current pain regimen acceptable -adjust as clinically indicated -high risk for outpatient failure; will observed times 24 hours 2.S/P Intrathecal pain pump -per Dr. Pedroza can IV clindamycin q.6 hours times 14 days(8) 3. Crohn's disease -TPN as ordered 4.Hx DVT/PE -held for procedure -restart as per pain management In my clinical judgment, the patient requires continued hospitalization for the following reasons: post-dural puncture headache on TPN, IV antibiotics, IV fluids and IV analgesics and need for surgical intervention for Time Spent With Patient Time: Total time managing care of this patient today ____ minutes. Quality Stroke Does the patient have a stroke diagnosis?: No VTE Prior VTE?: No VTE Risk Level:: Medical - moderate - high VTE Device Contraindication: Treatment Not Indicated VTE Drug Contraindication: N/A - Med Ordered
[2023-02-13 16:00] VITALS: BP 112/75; PULSE 75; RESP 18; TEMP 36.8; O2SAT 96
[2023-02-13 19:19] VITALS: BP 112/66; PULSE 75; RESP 18; TEMP 36.2; O2SAT 98
[2023-02-13 20:00] VITALS: BP 110/69; PULSE 78; RESP 18; TEMP 36.3; O2SAT 98
[2023-02-13] MEDS: Sennosides/Docusate Sodium TABLET 1 TAB PO (20:14)
[2023-02-13] MEDS: Parenteral Nutrition 2,400 ML 97.92 ML IV (20:59)
[2023-02-14] MEDS: ondansetron HCL 4 MG/2 ML VIAL IVPUSH ×4 (01:52→20:47)
[2023-02-14] MEDS: diphenhydrAMINE HCL 50 MG/ML VIAL 25 MG IVPUSH ×4 (01:53→20:46)
[2023-02-14] MEDS: 0.9 % Sodium Chloride Flush 3 ML SYRINGE IVFLUSH ×4 (01:53→20:47)
[2023-02-14 01:57] VITALS: BP 135/63; PULSE 76; RESP 18; TEMP 36.1; O2SAT 95
[2023-02-14] MEDS: Butalb/Acetamin/Caff 50/325/40 TABLET 1 TAB PO ×3 (02:30→23:01)
[2023-02-14] MEDS: Clindamycin Phosphate/D5W 300 MG/50 ML PIGGYBACK 100 MG IV ×4 (05:32→22:52)
[2023-02-14] MEDS: Omeprazole 20 MG CAPSULE.DR PO (05:32)
[2023-02-14 07:42] LABS: Anion Gap 15 (12-20); Blood Urea Nitrogen 15 mg/dL (9-16); Carbon Dioxide 24 mmol/L (22-29); Chloride 106 mmol/L (96-108); Creatinine Clr Calc Pharmacy 90.2; Estimated Glomerular Filt Rate > 60; Glucose Random 121 mg/dL (60-115); Magnesium 2.9 mg/dL (1.6-2.6); Potassium 4.3 mmol/L (3.3-5.1); Sodium 141 mmol/L (135-145)
[2023-02-14] MEDS: Docusate Sodium 100 MG CAPSULE PO (07:45)
[2023-02-14] MEDS: HYDROmorphone HCl 2 MG TABLET PO ×3 (07:45→20:45)
[2023-02-14] MEDS: Heparin Sodium,Porcine Flush 50 UNITS, 0.9 % Sodium Chloride Flush 5 ML IVFLUSH (07:48)
[2023-02-14 08:00] VITALS: BP 113/57; PULSE 78; RESP 17; TEMP 36.2; O2SAT 94
[2023-02-14 08:07] VITALS: PULSE 77; RESP 16; O2SAT 98
[2023-02-14] MEDS: Fluticasone/Vilanterol 200/25 BLST.W.DEV 1 PUFF INHALE (08:07)
--- NOTE | 2023-02-14 10:21 | MHC.CLN ---
F/U PATIENT CONTINUES WITH TPN DIET ADVANCED TO REGULAR TPN ORDERED PER HOME ADMINISTRATION TPN WITH LIPIDS PROVIDES 1460 KCALS (29.6 KCALS/KG CMW); 70 G PROTEIN (1.4 G/KG CMW), DEXTROSE 200 G; LIPIDS 50 G (X 5 DAYS, NOT ON TUESDAY OR TUESDAY) LABS REVIEWED COMMUNICATED WITH PHARMACY RECOMMEND CONTINUE CURRENT TPN ORDERS REPLETE LYTES NEEDED MONITOR PO INTAKE CLOSELY
[2023-02-14] MEDS: levETIRAcetam 750 MG in 0.9 % Sodium Chloride 100 ML 430 MG IV (12:05)
--- NOTE | 2023-02-14 14:57 | MHC.CM.PN ---
EMR reviewed. Per MD rounds pt to DC home tomorrow 02/15. Plan to resume services with [facility] for TPN. Referral sent. Patient self administers TPN. Has own ride home. CM will continue to follow.
[2023-02-14 15:17] VITALS: BP 92/50; PULSE 80; RESP 18; TEMP 36.3; O2SAT 95
--- NOTE | 2023-02-14 15:59 | P.PNIM_ITS ---
Subjective Subjective Date of Service: 02/14/23 Interval History: Feeling better this morning, complaining of being uncomfortable but unable to further explain, headache is better, no nausea, no vomiting by mouth intake is fluctuating 25% breakfast and lunch, 100% dinner, no fevers, no chills. Review of Systems All other system reviewed and negative Physical Exam 2 Vital Signs: Vital Signs: Last Vital Signs Temp 97.3 F 02/14/23 15:17 Pulse 80 02/14/23 15:17 Resp 18 02/14/23 15:17 BP 92/50 L 02/14/23 15:17 Pulse Ox 95 02/14/23 15:17 O2 Del Method Room Air 02/14/23 15:17 BMI result Body Mass Index 30.5 Const: Other: Gen: Resting comfortably, in no distress , awake alert x3 Neck: supple, left external jugular IV access Lungs: clear to auscultation bilaterally Heart: regular rate and rhythm, no murmurs Abd: soft, non-tender, non-distended, bowel sounds audible Ext: no edema Skin: warm/well-perfused Neuro: alert and oriented x3, no focal findings, port right lower back Psych: appropriate affect Objective Data Active Medications Acetaminophen (Acetaminophen 325 Mg Tablet) 650 mg PO Q6H PRN PRN Reason: Pain, Mild (Pain Scale 1-3) Last Admin: 02/10/23 23:51 Dose: 650 mg Documented By: AIDA Acetaminophen/Butalbital/Caffeine (Butalb/Acetamin/Caff 50/325/40 Tablet) 1 tab PO Q4H PRN PRN Reason: Headache Last Admin: 02/14/23 11:37 Dose: 1 tab Documented By: JEFF Acetaminophen/Butalbital/Caffeine (Butalb/Acetamin/Caff 50/325/40 Tablet) 1 tab PO Q4H PRN PRN Reason: Headache Albuterol Sulfate (Albuterol Sulfate 90 Mcg 8 Gm Inhaler) 2 puff INHALE Q4H PRN PRN Reason: Wheezing Heparin Sodium (Porcine) 50 (units/ Sodium Chloride 5 ml) 0 units IVFLUSH DAILY ANNA Last Admin: 02/14/23 07:48 Dose: 50 unit Documented By: JEFF Diphenhydramine HCl (Diphenhydramine Hcl 50 Mg/Ml Vial) 25 mg IVPUSH Q4H PRN PRN Reason: Nausea and Vomiting Last Admin: 02/14/23 14:38 Dose: 25 mg Documented By: JEFF Docusate Sodium (Docusate Sodium 100 Mg Capsule) 100 mg PO DAILY COUNTS INCLUDE 234 BEDS AT THE [facility] Last Admin: 02/14/23 07:45 Dose: 100 mg Documented By: JEFF Fentanyl (Fentanyl Citrate/Pf 100 Mcg/2 Ml Vial) 50 mcg IVPUSH Q5M PRN; Protocol PRN Reason: Pain, Severe (Pain Scale 7-10) Fluticasone/Vilanterol (Fluticasone/Vilanterol 200/25 Blst.W.Dev) 1 puff INHALE RDAILY COUNTS INCLUDE 234 BEDS AT THE [facility] Last Admin: 02/14/23 08:07 Dose: 1 puff Documented By: FATEMEH Hydromorphone HCl (Hydromorphone Hcl 2 Mg Tablet) 2 mg PO Q4H PRN PRN Reason: Pain, Severe (Pain Scale 7-10) Last Admin: 02/14/23 14:37 Dose: 2 mg Documented By: JEFF Clindamycin Phosphate (Cleocin) 300 mg in 50 mls @ 100 mls/hr IV Q6H COUNTS INCLUDE 234 BEDS AT THE [facility] Last Infusion: 02/14/23 12:09 Dose: Infused Documented By: JEFF Promethazine HCl 12.5 mg/ (Sodium Chloride) 50.5 mls @ 202 mls/hr IV Q4H PRN PRN Reason: nausea/vomiting Last Infusion: 02/10/23 17:51 Dose: Infused Documented By: JEFF Levetiracetam 750 mg/ Sodium (Chloride) 107.5 mls @ 430 mls/hr IV Q12H COUNTS INCLUDE 234 BEDS AT THE [facility] Last Infusion: 02/14/23 12:48 Dose: Infused Documented By: JEFF Nutrition (Parenteral) (Parenteral Nutrition) 2,400 mls @ 97.92 mls/hr IV .Q24H COUNTS INCLUDE 234 BEDS AT THE [facility]; Protocol Stop: 02/14/23 21:29 Last Admin: 02/13/23 20:59 Dose: 97.92 mls/hr Documented By: LURDES Nutrition (Parenteral) (Parenteral Nutrition) 2,350 mls @ 97.92 mls/hr IV .Q24H COUNTS INCLUDE 234 BEDS AT THE [facility]; Protocol Stop: 09/26/23 20:59 Magnesium Hydroxide (Milk Of Magnesia 30 Ml Oral.Susp) 30 ml PO DAILY PRN PRN Reason: Constipation Melatonin (Melatonin 3 Mg Tablet) 6 mg PO BEDTIME PRN PRN Reason: Insomnia Last Admin: 02/08/23 22:58 Dose: 6 mg Documented By: SENDY Omeprazole (Omeprazole 20 Mg Capsule.) 20 mg PO DAILY@0630 COUNTS INCLUDE 234 BEDS AT THE [facility] Last Admin: 02/14/23 05:32 Dose: 20 mg Documented By: GAYATRI Ondansetron HCl (Ondansetron Hcl 4 Mg/2 Ml Vial) 4 mg IVPUSH Q6H COUNTS INCLUDE 234 BEDS AT THE [facility] Last Admin: 02/14/23 14:38 Dose: 4 mg Documented By: JEFF Pharmacy Consult (Consult Rx Parenteral Nutrition Ordering) 1 each MISCELLANE DAILY COUNTS INCLUDE 234 BEDS AT THE [facility] Polyethylene Glycol (Polyethylene Glycol 3350 17 Gm Powd.Pack) 17 gm PO DAILY COUNTS INCLUDE 234 BEDS AT THE [facility] Last Admin: 02/14/23 07:58 Dose: Not Given Documented By: JEFF Non-Admin Reason: Patient Refused Senna/Docusate Sodium (Sennosides/Docusate Sodium Tablet) 1 tab PO BEDTIME COUNTS INCLUDE 234 BEDS AT THE [facility] Last Admin: 02/13/23 20:14 Dose: 1 tab Documented By: LURDES Sodium Chloride (0.9 % Sodium Chloride Flush 3 Ml Syringe) 3 ml IVFLUSH QSHIFT COUNTS INCLUDE 234 BEDS AT THE [facility] Last Admin: 02/14/23 07:47 Dose: 3 ml Documented By: JEFF Tiotropium Loretto (Tiotropium [place]to 2.5 Mcg Inhaler) 2 puff INHALE RDAILY COUNTS INCLUDE 234 BEDS AT THE [facility] Last Admin: 02/14/23 08:07 Dose: 2 puff Documented By: GUIDIB Labs 02/13/23 06:42 02/14/23 05:40 Labs: Laboratory Results - last 24 hr 02/14/23 05:40 Hold Purple Top SEE NOTE Anion Gap 15 Estim Creat Clear Calc 90.2 Estimated GFR > 60 Random Glucose 121 H Calcium 9.0 Phosphorus 4.0 Magnesium 2.9 H Assessment and Plan (1) Postdural puncture headache: Status: Acute Assessment and Plan: (2) Crohn's disease: Status: Acute Plan 42yo F with Crohn's disease with TPN dependence, 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 Respond well to blood patch 1.Spinal Headache -good pain control , continue Dilaudid 2 mg q.4 hours as needed -continue nausea medications, encourage out of bed to chair, Minimize narcotics continue stool softeners 2.S/P Intrathecal pain pump -per Dr. Pedroza can IV clindamycin q.6 hours times 14 days(9) 3. Crohn's disease -TPN as ordered 4.Hx DVT/PE -restart Eliquis as per pain management 5. Seizure disorder will DC IV Keppra transition to by mouth Keppra home dose In my clinical judgment, the patient requires continued hospitalization for the following reasons: post-dural puncture headache on TPN, IV antibiotics, status post blood patch placement Time Spent With Patient Time: Total time managing care of this patient today ____ minutes. Quality Stroke Does the patient have a stroke diagnosis?: No VTE Prior VTE?: No VTE Risk Level:: Medical - moderate - high VTE Device Contraindication: Treatment Not Indicated VTE Drug Contraindication: N/A - Med Ordered
[2023-02-14 20:00] VITALS: BP 134/63; PULSE 84; RESP 20; TEMP 36.1; O2SAT 96
[2023-02-14] MEDS: Sennosides/Docusate Sodium TABLET 1 TAB PO (20:46)
[2023-02-14] MEDS: levETIRAcetam Oral Soln 500 MG/5 ML 700 MG PO (21:59)
[2023-02-15] MEDS: ondansetron HCL 4 MG/2 ML VIAL IVPUSH ×2 (01:19→08:49)
[2023-02-15] MEDS: diphenhydrAMINE HCL 50 MG/ML VIAL 25 MG IVPUSH ×2 (01:27→08:48)
[2023-02-15 04:00] VITALS: BP 118/67; PULSE 67; RESP 20; TEMP 36.3; O2SAT 97
[2023-02-15] MEDS: Clindamycin Phosphate/D5W 300 MG/50 ML PIGGYBACK 100 MG IV (04:50)
[2023-02-15] MEDS: Omeprazole 20 MG CAPSULE.DR PO (05:10)
--- NOTE | 2023-02-15 06:12 | PC.NURSE ---
Pt in room 378, Keppra has been changed from IV to PO. Pt said that she only takes the liquid form at home. Pt is asking for liquid form instead of PO. Dr. Musa was notified. called pharmacy to see if we have it. Pt was given Keppra liquid form instead of PO.
[2023-02-15 07:41] LABS: Anion Gap 16 (12-20); Blood Urea Nitrogen 17 mg/dL (9-16); Calcium 9.2 mg/dL (8.4-10.2); Carbon Dioxide 24 mmol/L (22-29); Chloride 103 mmol/L (96-108); Creatinine Clr Calc Pharmacy 82.7; Estimated Glomerular Filt Rate > 60; Glucose Random 124 mg/dL (60-115); Magnesium 2.7 mg/dL (1.6-2.6); Phosphorus 4.6 mg/dL (2.7-4.5); Potassium 4.1 mmol/L (3.3-5.1); Sodium 139 mmol/L (135-145)
[2023-02-15 08:00] VITALS: BP 124/60; PULSE 70; RESP 18; TEMP 36.1; O2SAT 96
[2023-02-15] MEDS: HYDROmorphone HCl 2 MG TABLET PO ×2 (08:47→13:49)
[2023-02-15] MEDS: levETIRAcetam Oral Soln 500 MG/5 ML 700 MG PO (08:49)
[2023-02-15] MEDS: 0.9 % Sodium Chloride Flush 3 ML SYRINGE IVFLUSH (08:49)
--- NOTE | 2023-02-15 08:56 | PC.NURSE ---
Pt medicated per request. during IV Push for Zofran and Benadryl, scant amount of leaking noted from IJ, flushing well. Primary nurse notified.
--- NOTE | 2023-02-15 10:48 | MHC.CLN ---
F/U PATIENT CONTINUES WITH TPN DIET RX: REGULAR-APPROPRIATE PO INTAKE VARIABLE RANGES FROM <25-100% TPN ORDERED PER HOME ADMINISTRATION TPN WITH LIPIDS PROVIDES 1460 KCALS (29.6 KCALS/KG CMW); 70 G PROTEIN (1.4 G/KG CMW), DEXTROSE 200 G; LIPIDS 50 G (X 5 DAYS, NOT ON TUESDAY OR TUESDAY) PT SCHEDULED TO D/C HOME TODAY [facility] FOR HOME TPN TO RESUME
--- NOTE | 2023-02-15 12:05 | P.DS_ITS ---
DS: Providers Provider Date of Service: 02/15/23 Date of admission: 02/10/23 15:04 Primary care physician: Lalitha Sherman NP Consults: 02/05/23 00:32 Consult to Pain Management Routine Consulting Provider: Manny Pedroza Reason for consultation: Spinal headache 02/07/23 16:54 Consult to Gastroenterology Routine Consulting Provider: Bess Wallace Reason for consultation: poor po intake /crohns dz Has provider been notified: No DS: Diagnosis Discharge Diagnosis (1) Postdural puncture headache: Status: Acute (2) Crohn's disease: Status: Acute DS: Summary Hospital Course Hospital Course: History of presenting illness: Date of Service: 02/05/23 Chief Complaint: Headache This is a 42-year-old female with pertinent history of chronic pain syndrome, s eizure disorder, DVT/PE on Eliquis, asthma not on home oxygen who presents to the emergency department for evaluation of headache. Patient states she got intrathecal pain pump yesterday by her pain management doctor and has been having frontal headaches since. It has been progressive and was worse on the day of presentation. Is associated with nausea. No vision changes. It is worse with sitting or standing and relieved by lying flat. Also has associated back pain. Patient denies fever, chills, chest discomfort, palpitations, shortness of breath, abdominal pain, changes in urinary or bowel habits. Patient states she has been compliant with Eliquis but it was stopped for the last 1 week for spinal procedure. In the emergency department, pain management physician was consulted who re quested admission and will evaluate the patient in a.m. 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, chronic back pain on hydromorphone, s/p intrathecal pain pump placed 02/03/[address] Pedroza, admitted with severe post-dural puncture headache, admitted to medical floor was placed on bedrest, with 10 deg Trendelenberg, treated with IV fluids, antiemetics, IV hydromorphone, IV caffeine, Fioricet and prophylactic IV clindamycin however patient did not respond to above treatment therefore underwent blood patch placement on with good response, patient headache has significantly improved therefore she is being discharged home today recommend to continue all of her home medications, recommend outpatient follow- up with Dr. Pedroza, patient was continued on TPN recommend to use stool softeners and antiemetics as before. hx DVT/PE , continue Eliquis. Mild intermittent asthma no acute exacerbation noted continue home inhalers seizure disorder -continue levetiracetam Time Spent with Patient Time attestation: Total time managing care of this patient today ____ minutes. Discharge coordination time: Greater than 30 minutes Quality: Safe Use of Opioids Does Pt have an Active Cancer Diagnosis on the Problem List?: No Quality: Stroke Does the patient have a stroke diagnosis?: No Physical Exam Vital Signs: Vital Signs: Last Vital Signs Temp 97.0 F 02/15/23 08:00 Pulse 70 02/15/23 08:00 Resp 18 02/15/23 08:00 BP 124/60 02/15/23 08:00 Pulse Ox 96 02/15/23 08:00 O2 Del Method Room Air 02/15/23 08:00 BMI result Body Mass Index 30.5 Const: Other: Gen: awake alert x3, in no acute distress Neck: supple Lungs: clear to auscultation bilaterally Heart: regular rate and rhythm, no murmurs Abd: soft, non-tender, non-distended, bowel sounds audible Ext: no edema Skin: warm/well-perfused Neuro: alert and oriented x3, no focal findings, port right lower back Psych: appropriate affect DS: Data Data Completed and Pending Completed studies during hospitalization [Text1]: Procedures Introduction of Remdesivir Anti-infective into Peripheral Vein, Percutaneous Approach, [employer] 5 (08/17/21) Labs on day of discharge: Laboratory Results - last 24 hr 02/15/23 05:41 Sodium 139 Potassium 4.1 Chloride 103 Carbon Dioxide 24 Anion Gap 16 BUN 17 H Creatinine 0.73 Estim Creat Clear Calc 82.7 Estimated GFR > 60 Random Glucose 124 H Calcium 9.2 Phosphorus 4.6 H Magnesium 2.7 H Discharge Plan Discharge Anticipated Discharge Date/Time: 02/15/23 11:12 Patient Disposition: Home Health Service Discharge Diagnosis: Spinal headache Is status post intrathecal pain pump placement Referrals: Lalitha Sherman [employer] [Primary Care Provider] - 1 Week Discharge Medications: New clindamycin HCl 300 mg capsule 300 mg PO TID Qty: 15 0RF Eliquis 5 mg tablet 5 mg PO BID Qty: 60 0RF Continued albuterol sulfate 90 mcg/actuation Hfa Aerosol Inhaler 2 puff INHALATION Q4H PRN (Reason: Wheezing) Incruse Ellipta 62.5 mcg/actuation Blister With Device 1 inh INHALATION DAILY fluticasone furoate-vilanterol [Breo Ellipta] 200-25 mcg/dose Blister With Device 1 inh INHALATION Q24H diphenhydramine HCl 50 mg/mL solution 25 mg IV QID PRN (Reason: Nausea) ondansetron HCl (PF) 4 mg/2 mL solution 4 mg IV QID PRN (Reason: Nausea) promethazine 25 mg Tablet 25 mg PO QID PRN (Reason: Nausea And Vomiting) levetiracetam [Keppra] 100 mg/mL Solution 700 mg PO BID pantoprazole 40 mg tablet,delayed release (DR/EC) 40 mg PO DAILY PRN (Reason: ACID REFLEX) Humira(CF) Pen 40 mg/0.4 mL pen injector kit 40 mg subcut Q2W hydromorphone 4 mg tablet 4 mg PO TID PRN (Reason: severe pain (scale score 7-10)) 30 Days Qty: 90 0RF Rx Instructions: Partial fill per patient's request only Discharge Orders: Discharge Order (Routine); Ordered 02/15/23 Ordered By: Laureen Womack Diet: Advance to usual diet Activity on Discharge: As tolerated Stand Alone Forms: Patient Portal Discharge page Care Plan Goals: Continue all home medication Health Concerns: Continue TPN Plan of Treatment: Outpatient follow-up with primary care physician and follow-up with Dr. Pedroza as planned Assessment: as above
[2023-02-15] MEDS: Butalb/Acetamin/Caff 50/325/40 TABLET 1 TAB PO (13:49)
--- NOTE | 2023-02-15 14:49 | MHC.CM.PN ---
DP:PT HAS BEEN MEDICALLY CLEARED FOR DC HOME WITH HOME INFUSION SERVICES WITH [facility] FOR TPN, PT MANAGES OWN AND IS AWARE THAT [facility] WILL DELIVER FORMULA TOMORROW. AWARE AND IN AGREEMENT WITH PLAN. NICHOLE KEENE SET UP FOR 3 PM, SON ACCOMPANYING PT. IMM ADDRESSED VIA TELEPHONE AND WHITE COPY TO BE MAILED.
== END 2023-02-15 14:45 | disposition home health service (06) | DRG 103 ==
LOC: HO.ED 20:49 → HO.EDOVER 02-05 00:51 → HO.S3 02-05 11:49
PROVIDERS: Anesthesiology; Family Medicine; Hospitalist; Admitting Provider Student in an Organized Health Care Education/Training Program; Emergency Provider Emergency Medicine Emergency Medical Services; PCP Nurse Practitioner Family; Visit Provider Hospitalist
PROC: 3E0R3GC Introduction of Other Therapeutic Substance into Spinal Canal, Percutaneous Approach (ICD-10-PCS; CPT 62273; principal; 2023-02-11 11:30)
DX: G97.1 Other reaction to spinal and lumbar puncture (principal); K50.90 Crohn's disease, unspecified, without complications; D84.821 Immunodeficiency due to drugs; M35.2 Behcet's disease; Y84.4 Aspiration of fluid as the cause of abnormal reaction of the patient, or of later complication, without mention of misadventure at the time of the procedure; E83.39 Other disorders of phosphorus metabolism; J45.20 Mild intermittent asthma, uncomplicated; Z45.1 Encounter for adjustment and management of infusion pump; G40.909 Epilepsy, unspecified, not intractable, without status epilepticus; G89.4 Chronic pain syndrome; Z86.718 Personal history of other venous thrombosis and embolism; Z86.711 Personal history of pulmonary embolism; Z79.01 Long term (current) use of anticoagulants; Z79.51 Long term (current) use of inhaled steroids; Z79.620 Long term (current) use of immunosuppressive biologic; Z79.899 Other long term (current) drug therapy
CPT/HCPCS: 36415; 62273; 70450; 80048; 80053; 82040; 83735; 84100; 84478; 84702; 85025; 85027; 85610; 85730; 94640; 99221; 99285; J1170; J1200; J1642; J1650; J1885; J1953; J2250; J2405; J2550; J3010; Q9967

== ENCOUNTER → 2023-02-05 00:48 | Outpatient (BNV) | payer MEDICARE, MEDICAID, SELFPAY | PROVIDERS: Admitting Provider Student in an Organized Health Care Education/Training Program; Emergency Provider Emergency Medicine Emergency Medical Services; Visit Provider Internal Medicine Gastroenterology | DX: G97.1 Other reaction to spinal and lumbar puncture (principal) | CPT/HCPCS: 99222 ==

== ENCOUNTER → 2023-02-05 00:48 | Outpatient (BNV) | payer MEDICARE, MEDICAID, SELFPAY | PROVIDERS: Admitting Provider Student in an Organized Health Care Education/Training Program; Emergency Provider Emergency Medicine Emergency Medical Services; Visit Provider Student in an Organized Health Care Education/Training Program | DX: G97.1 Other reaction to spinal and lumbar puncture (principal); K50.90 Crohn's disease, unspecified, without complications | CPT/HCPCS: 99222; 99232; 99233; 99239; 99499 ==

== ENCOUNTER → 2023-02-05 00:48 | Outpatient (BNV) | payer MEDICARE, MEDICAID, SELFPAY | PROVIDERS: Admitting Provider Student in an Organized Health Care Education/Training Program; Emergency Provider Emergency Medicine Emergency Medical Services; Visit Provider Anesthesiology | DX: G97.1 Other reaction to spinal and lumbar puncture (principal) | CPT/HCPCS: 62273; 77003; 99024 ==

== ENCOUNTER 2023-02-17 08:51 | Outpatient (AMB) | payer MEDICARE, MEDICAID, SELFPAY ==
[2023-02-17 09:04] VITALS: BP 122/56; PULSE 85; RESP 16; O2SAT 97; BMI 275.9
--- NOTE | 2023-02-17 09:04 | A.OFFVIS_ITS ---
Intake Vital Signs 02/17/23 09:04 Height 4 ft 11 in Weight 1366 lb BMI 275.9 BP 122/56 L Blood Pressure Location Rt brachial Position Sitting Respiration 16 Pulse 85 Pulse Source Pulse Oximeter Pulse Oximetry (%) 97 Oxygen Delivery Method Room Air Intake Visit Reasons: s/p ITDD Implant 02/03/23 Staple Removal Allergies ciprofloxacin [Cipro] Allergy (Unknown, Verified 02/17/23 09:04) Hives levofloxacin [Levaquin] Allergy (Unknown, Verified 02/17/23 09:04) Hives metoclopramide [Reglan] Allergy (Unknown, Verified 02/17/23 09:04) Hives ondansetron [Zofran] Allergy (Unknown, Verified 02/17/23 09:04) Itching penicillin V Allergy (Unknown, Verified 02/17/23 09:04) Hives prochlorperazine [From Compazine] Allergy (Unknown, Verified 02/17/23 09:04) Shortness of Breath Sulfa (Sulfonamide Antibiotics) Allergy (Unknown, Verified 02/17/23 09:04) Hives thalidomide [From Thalomid] Allergy (Unknown, Verified 02/17/23 09:04) Rash haloperidol [From Haldol] Allergy (Verified 02/17/23 09:04) Itching HPI HPI Comments History of Present Illness Details [place] in the office today after implantation of intrathecal bupivacaine pain pump. Her postoperative period got complicated by postdural puncture headache. She went to ER with severe positional headache, nausea and vomiting on 02/13/23 where she was seen by me and recommended to try a conservative treatment of the headache mainly because of the difficulty with vascular access and therefore difficulty with performing epidural blood patch (She has a h/o 27 left and right supclavian placed portocaths for the administration of TPN and she has IVC portocath through which she receives Her TPN). Unfortunately conservative treatment was not successful and she went for epidural blood patch with right radial a-line placement and sterile blood obtained in the amount of 22 mls from the a-line and injected into the left L1- L2 interlaminar epidural space with contrast visualization of the intrathecal catheter which enters the intrathecal space at the right side of the L1- L2 intrathecal space. After blood patch her headache improved however today she came and reported that moderate positional headache returned however no nausea and vomiting. I again recommended conservative management: continual bed rest, minimal ambulation, caffeinated bevereges and fioricet prn. Wounds on her back were inspected today - no signs of infection, no redness , no swelling, no discharge, no tenderness. the edges are competent. The danielle were removed today, Bacitracin dressing with tegaderm was applied. She reports 2-3 hours of improvement of her chronic abdominal pain on PTM activation. The pump was interrogated as below and adjustments were made as below. Prior: the trial of the intrathecal pain pump bupivacaine during which she received 2 mg of bupivacaine injected intrathecally. She reports that 2 hours after the procedure she had her pain 4/10. 4 hours after the procedure she had her pain 3 to 4/10. 6 hours after the procedure she continued to in joint pain reduction to 3 to 4/10. 8 hours after the procedure she continued to enjoy pain reduction to 3 to 4/10. She went to bed at that time and she woke up in the morning when her pain went all the way back. Her regular pain is with very significant doses of the opioid medications on regular basis is ranging between 8 and 9/10. Therefore she reports more than 50% pain reduction for the 8 hours after the procedure. I think she would be a good candidate for bupivacaine pain pump implantation. I will schedule this procedure for her accordingly. She may not need to stop her opioid medications before the procedure. If she receives significant pain relief after the implant we will start tapering down her opioid doses. Prior: She went for intrathecal trial on 02/23/2022.? She reports 50% at least of the pain relief for 24 hours after the injection.? She is not opioid naive patient.? She is pretty much tolerant and I injected only 150 micro g of Dilaudid in trathecally.? Therefore we may expect significant pain reduction for her given the right combination of the medications.? She wanted me to schedule her for implantation of the intrathecal pain pump.? She is immunocompromised individual she needs to be the very strict observation during a and after the surgery.? However today she was upset that the need for her completion of physical therapy as well as a need to dial down and eliminate opioids at least for 4 weeks before implantation of the pain pump.? She renewed her interest into?Nevro spinal cord stimulator.? I explained to her that we can go for trial of Nevro SCS if she is okay with this as soon as she completes physical therapy. [place] is 41 years old female who is suffering from multiple medical conditions including Bencet disease, Crohn's disease, she is immunocompromised.? Her pain involves chronic abdominal pain in lower back pain.? She also has a chronic pelvic pain.? She was under might exacerbation on chronic oral opioid therapy for 3 years.? She was approved by psychological evaluation in the past for the neuromodulation.. [facility] Medical History Pulmonary emboli Absence seizure disorder DVT (deep venous thrombosis) Pyloric stenosis Asthma Common variable immunodeficiency Spondylolisthesis, lumbar region Spondylosis of lumbar region without myelopathy or radiculopathy Abdominal pain, chronic, generalized Gastroparesis Spontaneous pneumothorax Abdominal pain Chronic pain syndrome Cervicalgia Low back pain Crohn's disease Behcet's disease Surgical History History of hernia surgery Family History Father Hairy cell leukemia Social History Household Members: Children Household Members Other:: son Housing: Condominium Do you presently have visiting nurse or other home services: No Alcohol intake: never Patient Tobacco Use Status: Never used Tobacco Advance Directives Date on File: 03/12/21 service: No Current occupational status: unemployed Review of Systems Const All systems reviewed & are unremarkable except as noted in HPI and below Reports body aches and Reports fatigue Card Details: Behcet syndrome Resp Reports no additional complaints GI Details: Crohn's disease Reports as per HPI Musc Reports as per HPI Neuro Reports no additional complaints Endo Reports fatigue Physical Exam Vital Signs: Last Vital Signs Pulse 85 02/17/23 09:04 Resp 16 02/17/23 09:04 BP 122/56 L 02/17/23 09:04 Pulse Ox 97 02/17/23 09:04 Oxygen Delivery Method Room Air 02/17/23 09:04 BMI result Body Mass Index 275.9 Const General: cooperative, no acute distress and alert Orientation/consciousness: patient oriented x3 HEENT Head: Yes normocephalic and Yes atraumatic Ears: hearing grossly normal bilaterally Eyes General: appearance normal, both eyes and all related structures Eyelids: Yes eyelids normal Pupils: Equal, round and reactive pupils present EOM: EOMs intact bilaterally Neck Neck: Yes normal visual inspection and Yes no JVD Resp Effort & Inspection: normal respiratory effort, able to speak in complete sentences and no audible wheezes Cardio Jugular venous distension: no JVD GI Inspection: Yes incision and Yes scar Neuro General: patient oriented x3, gait normal and moves all extremities Cranial nerves: Yes Equal, round and reactive pupils present Assessment & Plan Assessment & Plan (1) Cervicalgia: Code(s): M54.2 - Cervicalgia (2) Behcet's disease: Code(s): M35.2 - Behcet's disease (3) Crohn's disease: Code(s): K50.90 - Crohn's disease, unspecified, without complications Qualifiers: Digestive disease complication type: other complication Gastrointestinal tract location: unspecified location Qualified Code(s): K5 0.918 - Crohn's disease, unspecified, with other complication (4) Low back pain: Code(s): M54.5 - Low back pain (5) Chronic pain syndrome: Code(s): G89.4 - Chronic pain syndrome (6) Chronic, continuous use of opioids: Code(s): F11.90 - Opioid use, unspecified, uncomplicated (7) Chronic abdominal pain: Code(s): R10.9 - Unspecified abdominal pain; G89.29 - Other chronic pain Plan: the pump interrogation and adjustment. The pump was read today, 16 mls of the bupivacaine solution is in the pump. the simple continuos dose is left at the 1 mg a day. PTM with 1.7 mg was in creased to 4 activations a day every 4 hours. Next pump refill on March 02, 2023. (8) Postdural puncture headache: Code(s): G97.1 - Other reaction to spinal and lumbar puncture (9) Crohn's disease: Code(s): K50.90 - Crohn's disease, unspecified, without complications (10) Immunosuppression: Code(s): D84.9 - Immunodeficiency, unspecified (11) Spondylolisthesis, lumbar region: Code(s): M43.16 - Spondylolisthesis, lumbar region (12) Abdominal pain: Code(s): R10.9 - Unspecified abdominal pain Qualifiers: Abdominal location: lower abdomen, unspecified Qualified Code(s): R10.30 - Lower abdominal pain, unspecified Plan S/p ITDD implant with complication of PDPH. 6 days of inpatient conservative treatment due to difficult vascular access - not much of a help. EBP was performed with canulation of the right radial artery. Moderate improvement although still c/o on milder PDPH. No nausea and no vomiting. Good results of the pain pump - the doses are adjusted as above. Karval removed today. Appointment in 1 week. Medications: New ncehdosyur-yefywnoqdg-yqa-cod [id number] mg (Fioricet with Codeine) do not take within 2 hrs of intake of oral opioids. 1 cap PO Q4H 30 days PRN 90 caps 1RF post-dural puncture headache Patient Instructions: the above order was made in error, it was stopped and new order with plain fioricet without codein was instead sent to her pharmacy. Coding Level of Care Code Est Pt Level 4 (65816) Procedure Only Diagnoses Cervicalgia M54.2 Behcet's disease M35.2 Crohn's disease K50.918 Digestive disease complication type: other complication Gastrointestinal tract location: unspecified location Low back pain M54.5 Chronic pain syndrome G89.4 Chronic, continuous use of opioids F11.90 Chronic abdominal pain R10.9; G89.29 Postdural puncture headache G97.1 Immunosuppression D84.9 Spondylolisthesis, lumbar region M43.16 Lower abdominal pain R10.30 Abdominal location: lower abdomen, unspecified
== END 2023-02-17 09:26 | disposition home or self-care (01) ==
PROVIDERS: PCP Nurse Practitioner Family; Visit Provider Anesthesiology
DX: G89.4 Chronic pain syndrome (principal); M54.2 Cervicalgia; M35.2 Behcet's disease; Z45.1 Encounter for adjustment and management of infusion pump; K50.918 Crohn's disease, unspecified, with other complication; M54.50 Low back pain, unspecified; R10.9 Unspecified abdominal pain; G89.29 Other chronic pain; G97.1 Other reaction to spinal and lumbar puncture; D84.9 Immunodeficiency, unspecified; M43.16 Spondylolisthesis, lumbar region; R10.30 Lower abdominal pain, unspecified
CPT/HCPCS: 62368; 99214

== ENCOUNTER → 2023-02-17 08:51 | Outpatient (BNVA) | payer MEDICARE, MEDICAID, SELFPAY | PROVIDERS: PCP Nurse Practitioner Family; Visit Provider Anesthesiology | DX: Z45.1 Encounter for adjustment and management of infusion pump (principal); G89.4 Chronic pain syndrome; M54.2 Cervicalgia; M35.2 Behcet's disease; K50.918 Crohn's disease, unspecified, with other complication; M54.50 Low back pain, unspecified; G89.29 Other chronic pain; R10.9 Unspecified abdominal pain; G97.1 Other reaction to spinal and lumbar puncture; D84.9 Immunodeficiency, unspecified; M43.16 Spondylolisthesis, lumbar region; R10.30 Lower abdominal pain, unspecified; Z79.891 Long term (current) use of opiate analgesic | CPT/HCPCS: 62368; 99212 ==

== ENCOUNTER 2023-02-21 12:27 | Outpatient (REF) | payer MEDICARE, MEDICAID, SELFPAY ==
[2023-02-21 14:55] LABS: CDiff Gene PCR NEGATIVE (Negative)
== END 2023-02-21 12:28 | disposition home or self-care (01) ==
LOC: HO.LAB 12:27
PROVIDERS: PCP Nurse Practitioner Family; Visit Provider Anesthesiology
DX: A04.72 Enterocolitis due to Clostridium difficile, not specified as recurrent (principal)
CPT/HCPCS: 87493

== ENCOUNTER → 2023-03-03 09:46 | Outpatient (BNVA) | payer MEDICARE, MEDICAID, SELFPAY | PROVIDERS: PCP Nurse Practitioner Family; Visit Provider Anesthesiology | DX: Z45.1 Encounter for adjustment and management of infusion pump (principal); G89.4 Chronic pain syndrome; M54.2 Cervicalgia; M35.2 Behcet's disease; K50.918 Crohn's disease, unspecified, with other complication; M54.50 Low back pain, unspecified; G97.1 Other reaction to spinal and lumbar puncture; D84.9 Immunodeficiency, unspecified; M43.16 Spondylolisthesis, lumbar region; R10.30 Lower abdominal pain, unspecified; Z79.891 Long term (current) use of opiate analgesic | CPT/HCPCS: 62370; 99212 ==

== ENCOUNTER 2023-03-03 13:04 | Outpatient (AMB) | payer MEDICARE, MEDICAID, SELFPAY ==
[2023-03-03 13:13] VITALS: BP 120/56; PULSE 70; RESP 14; O2SAT 97; BMI 28.3
--- NOTE | 2023-03-03 13:13 | A.OFFVIS_ITS ---
Intake Vital Signs 03/03/23 13:13 Height 4 ft 11 in Weight 140 lb 6 oz BMI 28.3 BP 120/56 L Blood Pressure Location Rt brachial Position Sitting Respiration 14 Pulse 70 Pulse Source Pulse Oximeter Pulse Oximetry (%) 97 Oxygen Delivery Method Room Air Intake Visit Reasons: ITDD REFILL Allergies ciprofloxacin [Cipro] Allergy (Unknown, Verified 03/03/23 13:14) Hives levofloxacin [Levaquin] Allergy (Unknown, Verified 03/03/23 13:14) Hives metoclopramide [Reglan] Allergy (Unknown, Verified 03/03/23 13:14) Hives ondansetron [Zofran] Allergy (Unknown, Verified 03/03/23 13:14) Itching penicillin V Allergy (Unknown, Verified 03/03/23 13:14) Hives prochlorperazine [From Compazine] Allergy (Unknown, Verified 03/03/23 13:14) Shortness of Breath Sulfa (Sulfonamide Antibiotics) Allergy (Unknown, Verified 03/03/23 13:14) Hives thalidomide [From Thalomid] Allergy (Unknown, Verified 03/03/23 13:14) Rash haloperidol [From Haldol] Allergy (Verified 03/03/23 13:14) Itching HPI HPI Comments History of Present Illness Details [place] in the office today for the pump refill and postoperative wound evaluation. She received implantation of intrathecal bupivacaine pain pump. She reports 60% pain improvement on current regiment of the intrathecal bupivacaine. This is related to her abdominal pain as well as lower back pain. The pump refill is as below. The wounds are clean intact however there were 2 protruding 2-0 Polysorb suture in both wounds. The wounds were prepped with ChloraPrep today and Polysorb suture protruding through the skins were removed from the both sides without complications. Bacitracin ointment was applied. Patient is recommended to continue to wear bacitracin ointment dressing for 4-5 days from now. After that she may remove the dressing. Her postoperative period got complicated by postdural puncture headache. She went to ER with severe positional headache, nausea and vomiting on 02/13/23 where she was seen by me and recommended to try a conservative treatment of the headache mainly because of the difficulty with vascular access and therefore difficulty with performing epidural blood patch (She has a h/o 27 left and right supclavian placed portocaths for the administration of TPN and she has IVC portocath through which she receives Her TPN). Unfortunately conservative treatment was not successful and she went for epidural blood patch with right radial a-line placement and sterile blood obtained in the amount of 22 mls from the a-line and injected into the left L1- L2 interlaminar epidural space with contrast visualization of the intrathecal catheter which enters the intrathecal space at the right side of the L1- L2 intrathecal space. After blood patch her headache improved however today she came and reported that moderate positional headache returned however no nausea and vomiting. I again recommended conservative management: continual bed rest, minimal ambulation, caffeinated bevereges and fioricet prn. She reports now on regiment of butalbital and the caffeinated beverages her headache is tolerable. I am very reluctant to perform a new injection of epidural blood patch for her. I will continue observation. We are working with her insurance company to preauthorize Fioricet/butalbital to treat her headache. The headache is positional and the posttraumatic furcation in his recommended. Pump refill and dose adjustment is as below. Wounds on her back were inspected today - no signs of infection, no redness , no swelling, no discharge, no tenderness. the edges are competent. The danielle were removed today, Bacitracin dressing with tegaderm was applied. She reports 2-3 hours of improvement of her chronic abdominal pain on PTM activation. The pump was interrogated as below and adjustments were made as below. Pill count today she supposed to have no pills in her possession. She presented with 45 pills in her possession. The excess of the pills is because the patient was admitted for about a week in the hospital and received opioid medication from the hospital pharmacy. Nevertheless it does demonstrate responsible attitude to were the opioid medications. At her current regimen she supposed to have 15 more days on the current Dilaudid doses. I will renew her medications 15 days from now on 03/17/2023. Prior: the trial of the intrathecal pain pump bupivacaine during which she received 2 mg of bupivacaine injected intrathecally. She reports that 2 hours after the procedure she had her pain 4/10. 4 hours after the procedure she had her pain 3 to 4/10. 6 hours after the procedure she continued to in joint pain reduction to 3 to 4/10. 8 hours after the procedure she continued to enjoy pain reduction to 3 to 4/10. She went to bed at that time and she woke up in the morning when her pain went all the way back. Her regular pain is with very significant doses of the opioid medications on regular basis is ranging between 8 and 9/10. Therefore she reports more than 50% pain reduction for the 8 hours after the procedure. I think she would be a good candidate for bupivacaine pain pump implantation. I will schedule this procedure for her accordingly. She may not need to stop her opioid medications before the procedure. If she receives significant pain relief after the implant we will start tapering down her opioid doses. Prior: She went for intrathecal trial on 02/23/2022.? She reports 50% at least of the pain relief for 24 hours after the injection.? She is not opioid naive patient.? She is pretty much tolerant and I injected only 150 micro g of Dilaudid intrathecally.? Therefore we may expect significant pain reduction for her given the right combination of the medications.? She wanted me to schedule her for implantation of the intrathecal pain pump.? She is immunocompromised individual she needs to be the very strict observation during a and after the surgery.? However today she was upset that the need for her completion of physical therapy as well as a need to dial down and eliminate opioids at least for 4 weeks before implantation of the pain pump.? She renewed her interest into?Nevro spinal cord stimulator.? I explained to her that we can go for trial of Nevro SCS if she is okay with this as soon as she completes physical therapy. [place] is 41 years old female who is suffering from multiple medical conditions including Bencet disease, Crohn's disease, she is immunocompromised.? Her pain involves chronic abdominal pain in lower back pain.? She also has a chronic pelvic pain.? She was under might exacerbation on chronic oral opioid therapy for 3 years.? She was approved by psychological evaluation in the past for the neuromodulation.. [facility] Medical History Pulmonary emboli Absence seizure disorder DVT (deep venous thrombosis) Pyloric stenosis Asthma Common variable immunodeficiency Spondylolisthesis, lumbar region Spondylosis of lumbar region without myelopathy or radiculopathy Abdominal pain, chronic, generalized Gastroparesis Spontaneous pneumothorax Abdominal pain Chronic pain syndrome Cervicalgia Low back pain Crohn's disease Behcet's disease Surgical History History of hernia surgery Family History Father Hairy cell leukemia Social History Household Members: Children Household Members Other:: son Housing: Condominium Do you presently have visiting nurse or other home services: No Alcohol intake: never Patient Tobacco Use Status: Never used Tobacco Advance Directives Date on File: 03/12/21 service: No Current occupational status: unemployed Review of Systems Const All systems reviewed & are unremarkable except as noted in HPI and below Physical Exam Vital Signs: Last Vital Signs Pulse 70 03/03/23 13:13 Resp 14 03/03/23 13:13 BP 120/56 L 03/03/23 13:13 Pulse Ox 97 03/03/23 13:13 Oxygen Delivery Method Room Air 03/03/23 13:13 BMI result Body Mass Index 28.3 Const General: cooperative, no acute distress and alert Orientation/consciousness: patient oriented x3 HEENT Head: Yes normocephalic and Yes atraumatic Ears: hearing grossly normal bilaterally Eyes General: appearance normal, both eyes and all related structures Alignment and Position: alignment normal and position normal Periorbital: periorbital findings normal Eyelids: Yes eyelids normal Pupils: Equal, round and reactive pupils present, pupils equal and not dilated EOM: EOMs intact bilaterally Direct Ophthalmoscopy: no photophobia Neck Neck: Yes normal visual inspection and Yes no JVD Resp Effort & Inspection: normal respiratory effort, able to speak in complete sentences and no audible wheezes Cardio Jugular venous distension: no JVD GI Inspection: Yes incision and Yes scar Back/Spine/Pelvis Cervical Spine: normal cervical lordosis Thoracic/Lumbar Spine: thoracic and lumbar spine normal to inspection Neuro General: patient oriented x3, gait normal and moves all extremities Cranial nerves: Yes Equal, round and reactive pupils present Assessment & Plan Assessment & Plan (1) Cervicalgia: Code(s): M54.2 - Cervicalgia (2) Behcet's disease: Code(s): M35.2 - Behcet's disease (3) Crohn's disease: Code(s): K50.90 - Crohn's disease, unspecified, without complications Qualifiers: Digestive disease complication type: other complication Gastrointestinal tract location: unspecified location Qualified Code(s): K50.918 - Crohn's disease, unspecified, with other complication (4) Low back pain: Code(s): M54.5 - Low back pain (5) Chronic pain syndrome: Code(s): G89.4 - Chronic pain syndrome (6) Chronic, continuous use of opioids: Code(s): F11.90 - Opioid use, unspecified, uncomplicated (7) Chronic abdominal pain: Code(s): R10.9 - Unspecified abdominal pain; G89.29 - Other chronic pain Plan: Intrathecal pump refill ? Intrathecal pump refill. THE PATIENT CAME TODAY IN THE OR - PACU FOR THE CHANGE OF THE MEDICATION IN her PAIN PUMP. The name and date of were verified and informed consent was obtained for the procedure. ?The pump was interrogated and the residual amount of fluid was found to be 2.9 mL. SHE WAS POSITIONED prone on the bed AND THE AREA OF THE INTRATHECAL PUMP WAS PREPPED WITH CHLORAPREP. The fenestrated drape was sterilely applied over the area of the pump. Sterile gloves were worn and of the aspiration system was assembled containing 2 in 22 gauge noncoring needle, the needle was connected to extension tubing which was connected to the 20 cc sterile syringe. The pain pump was palpated under the skin in the patient's right buttock area. The needle was inserted through the skin and the central plug of the pain pump and fluid was aspirated. The clear fluid was going into the syringe the total amount of the fluid was 2.7 mL .. After that a new batch? of medication was obtained which was containing bupivacaine in concentration 14 per ml. The admixture was made in 20 cc syringe prepared by [facility] compounding pharmacy. The syringe was connected to the bacterial filter, and then connected to the extension tubing. After that the medication in the syringe was slowly instilled into the pump with aspirations at 15 and 5 cc joiner.? The pump was reprogrammed for the doses of 1 mg of bupivacaine the day and 1.7 mg of bupivacaine every 4 hours up to 4 administration is a day. Bridge bolus was given for next 21 hours with the total dose delivered 2.5 mg in that period of time after that new concentration of the medication will start to delivered to the CSF. (8) Postdural puncture headache: Code(s): G97.1 - Other reaction to spinal and lumbar puncture Plan: Currently she reports waxing and waning with her post dural puncture headache. I am very reluctant to go for any procedures as long as she is neurologically stable on physical exam today I did not find any reason to suspect neurological instability. She reports that when she is spending more time of the day in vertical position and active the pain becomes more severe. She reports moderate help from Fioricet. We are working with his her insurance company to pre gildardo rove this medication for her. The patient has naloxone at home. (9) Crohn's disease: Code(s): K50.90 - Crohn's disease, unspecified, without complications (10) Immunosuppression: Code(s): D84.9 - Immunodeficiency, unspecified (11) Spondylolisthesis, lumbar region: Code(s): M43.16 - Spondylolisthesis, lumbar region (12) Abdominal pain: Code(s): R10.9 - Unspecified abdominal pain Qualifiers: Abdominal location: lower abdomen, unspecified Qualified Code(s): R10.30 - Lower abdominal pain, unspecified Coding Level of Care Code Est Pt Level 4 (72656) Procedure Only Diagnoses Cervicalgia M54.2 Behcet's disease M35.2 Crohn's disease K50.918 Digestive disease complication type: other complication Gastrointestinal tract location: unspecified location Low back pain M54.5 Chronic pain syndrome G89.4 Chronic, continuous use of opioids F11.90 Chronic abdominal pain R10.9; G89.29 Postdural puncture headache G97.1 Immunosuppression D84.9 Spondylolisthesis, lumbar region M43.16 Lower abdominal pain R10.30 Abdominal location: lower abdomen, unspecified
== END 2023-03-03 14:30 | disposition home or self-care (01) ==
PROVIDERS: PCP Nurse Practitioner Family; Visit Provider Anesthesiology
DX: M54.2 Cervicalgia (principal); M35.2 Behcet's disease; K50.918 Crohn's disease, unspecified, with other complication; M54.50 Low back pain, unspecified; G89.4 Chronic pain syndrome; Z79.891 Long term (current) use of opiate analgesic; R10.9 Unspecified abdominal pain; G89.29 Other chronic pain; G97.1 Other reaction to spinal and lumbar puncture; D84.9 Immunodeficiency, unspecified; M43.16 Spondylolisthesis, lumbar region; R10.30 Lower abdominal pain, unspecified
CPT/HCPCS: 62370; 99214

== ENCOUNTER 2023-03-14 10:03 | Outpatient (AMB) | payer MEDICARE, MEDICAID, SELFPAY ==
[2023-03-14 10:20] VITALS: BP 132/82; PULSE 91; RESP 16; O2SAT 96; BMI 28.7
--- NOTE | 2023-03-14 10:20 | A.OFFVIS_ITS ---
Intake Vital Signs 03/14/23 10:20 Height 4 ft 11 in Weight 142 lb BMI 28.7 BP 132/82 Blood Pressure Location Rt brachial Position Sitting Respiration 16 Pulse 91 Pulse Source Pulse Oximeter Pulse Oximetry (%) 96 Oxygen Delivery Method Room Air Intake Visit Reasons: FOLLOW UP Allergies ciprofloxacin [Cipro] Allergy (Unknown, Verified 03/14/23 10:21) Hives levofloxacin [Levaquin] Allergy (Unknown, Verified 03/14/23 10:21) Hives metoclopramide [Reglan] Allergy (Unknown, Verified 03/14/23 10:21) Hives ondansetron [Zofran] Allergy (Unknown, Verified 03/14/23 10:21) Itching penicillin V Allergy (Unknown, Verified 03/14/23 10:21) Hives prochlorperazine [From Compazine] Allergy (Unknown, Verified 03/14/23 10:21) Shortness of Breath Sulfa (Sulfonamide Antibiotics) Allergy (Unknown, Verified 03/14/23 10:21) Hives thalidomide [From Thalomid] Allergy (Unknown, Verified 03/14/23 10:21) Rash haloperidol [From Haldol] Allergy (Verified 03/14/23 10:21) Itching HPI HPI Comments History of Present Illness Details [place] in the office today for the pump adjustment. She reports her headache is getting slightly better. In the case of this patient any minimal improvement is a sign of hope. I scheduled this patient for operations administrative assistant discussion to approve Fioricet because her insurance company denies Fioricet for this patient. She reported over the telephone to me that if she ap plies PTM does for herself with the upright torso position she becomes dizzy and loses her conscience. Most likely it is related to sympathetic blockade she receives with bupivacaine. I recommended her to apply the medication while she is still position horizontal in bed. I also recommended her to increase her fluid intake and increase of caffeinated beverages intake. That will allow her to remain complication free. Today I also change the rate switch her PTM doses administered to her. Prior to today she received the PTM does within the 9 minutes. That would create a very fast jet inside the CSF with white the spread of the medication cephalad. Today I changed the time with which the doses administered to her back to 30 minutes, this will result in slower spread of the medication but eventually the same dse of the medication. She already reports that intrathecal bupivacaine PTM does help her pain better than hydromorphone oral. Her postoperative period got complicated by postdural puncture headache. She went to ER with severe positional headache, nausea and vomiting on 02/13/23 where she was seen by me and recommended to try a conservative treatment of the headache mainly because of the difficulty with vascular access and therefore difficulty with performing epidural blood patch (She has a h/o 27 left and right supclavian placed portocaths for the administration of TPN and she has IVC portocath through which she receives Her TPN). Unfortunately conservative treatment was not successful and she went for epidural blood patch with right radial a-line placement and sterile blood obtained in the amount of 22 mls from the a-line and injected into the left L1- L2 interlaminar epidural space with contrast visualization of the intrathecal catheter which enters the intrathecal space at the right side of the L1- L2 intrathecal space. After blood patch her headache improved however today she came and reported that moderate positional headache returned however no nausea and vomiting. I again recommended conservative management: continual bed rest, minimal ambulation, caffeinated bevereges and fioricet prn. She reports now on regiment of butalbital and the caffeinated beverages her headache is tolerable. I am very reluctant to perform a new injection of epidural blood patch for her. I will continue observation. We are working with her insurance company to preauthorize Fioricet/butalbital to treat her headache. The headache is positional and the posttraumatic furcation in his recommended. Pump refill and dose adjustment is as below. Her next pump refill will be scheduled 03/31/2023 on this date I will also perform pill count of her hydromorphone. Prior: the trial of the intrathecal pain pump bupivacaine during which she received 2 mg of bupivacaine injected intrathecally. She reports that 2 hours after the procedure she had her pain 4/10. 4 hours after the procedure she had her pain 3 to 4/10. 6 hours after the procedure she continued to in joint pain reduction to 3 to 4/10. 8 hours after the procedure she continued to enjoy pain reduction to 3 to 4/10. She went to bed at that time and she woke up in the morning when her pain went all the way back. Her regular pain is with very significant doses of the opioid medications on regular basis is ranging between 8 and 9/10. Therefore she reports more than 50% pain reduction for the 8 hours after the procedure. I think she would be a good candidate for bupivacaine pain pump implantation. I will schedule this procedure for her accordingly. She may not need to stop her opioid medications before the procedure. If she receives significant pain relief after the implant we will start tapering down her opioid doses. Prior: She went for intrathecal trial on 02/23/2022.? She reports 50% at least of the pain relief for 24 hours after the injection.? She is not opioid naive patient.? She is pretty much tolerant and I injected only 150 micro g of Dilaudid intrathecally.? Therefore we may expect significant pain reduction for her given the right combination of the medications.? She wanted me to schedule her for implantation of the intrathecal pain pump.? She is immunocompromised individual she needs to be the very strict observation during a and after the surgery.? However today she was upset that the need for her completion of physical therapy as well as a need to dial down and eliminate opioids at least for 4 weeks before implantation of the pain pump.? She renewed her interest into?Nevro spinal cord stimulator.? I explained to her that we can go for trial of Nevro SCS if she is okay with this as soon as she completes physical therapy. [place] is 41 years old female who is suffering from multiple medical conditions including Bencet disease, Crohn's disease, she is immunocompromised.? Her pain involves chronic abdominal pain in lower back pain.? She also has a chronic pelvic pain.? She was under might exacerbation on chronic oral opioid therapy for 3 years.? She was approved by psychological evaluation in the past for the neuromodulation.. [facility] Medical History Pulmonary emboli Absence seizure disorder DVT (deep venous thrombosis) Pyloric stenosis Asthma Common variable immunodeficiency Spondylolisthesis, lumbar region Spondylosis of lumbar region without myelopathy or radiculopathy Abdominal pain, chronic, generalized Gastroparesis Spontaneous pneumothorax Abdominal pain Chronic pain syndrome Cervicalgia Low back pain Crohn's disease Behcet's disease Surgical History History of hernia surgery Family History Father Hairy cell leukemia Social History Household Members: Children Household Members Other:: son Housing: Condominium Do you presently have visiting nurse or other home services: No Alcohol intake: never Patient Tobacco Use Status: Never used Tobacco Advance Directives Date on File: 03/12/21 service: No Current occupational status: unemployed Review of Systems Const All systems reviewed & are unremarkable except as noted in HPI and below Physical Exam Vital Signs: Last Vital Signs Pulse 91 03/14/23 10:20 Resp 16 03/14/23 10:20 BP 132/82 03/14/23 10:20 Pulse Ox 96 03/14/23 10:20 Oxygen Delivery Method Room Air 03/14/23 10:20 BMI result Body Mass Index 28.7 Const General: cooperative, no acute distress and alert Orientation/consciousness: patient oriented x3 HEENT Head: Yes normocephalic and Yes atraumatic Ears: hearing grossly normal bilaterally Eyes General: appearance normal, both eyes and all related structures Alignment and Position: alignment normal and position normal Periorbital: periorbital findings normal Eyelids: Yes eyelids normal Pupils: Equal, round and reactive pupils present, pupils equal and not dilated EOM: EOMs intact bilaterally Direct Ophthalmoscopy: no photophobia Neck Neck: Yes normal visual inspection and Yes no JVD Resp Effort & Inspection: normal respiratory effort, able to speak in complete sentences and no audible wheezes Cardio Jugular venous distension: no JVD GI Inspection: Yes incision and Yes scar Back/Spine/Pelvis Cervical Spine: normal cervical lordosis Thoracic/Lumbar Spine: thoracic and lumbar spine normal to inspection Neuro General: patient oriented x3, gait normal and moves all extremities Cranial nerves: Yes Equal, round and reactive pupils present Assessment & Plan Assessment & Plan (1) Cervicalgia: Code(s): M54.2 - Cervicalgia (2) Behcet's disease: Code(s): M35.2 - Behcet's disease (3) Crohn's disease: Code(s): K50.90 - Crohn's disease, unspecified, without complications Qualifiers: Digestive disease complication type: other complication Gastrointestinal tract location: unspecified location Qualified Code(s): K50.918 - Crohn's disease, unspecified, with other complication (4) Low back pain: Code(s): M54.5 - Low back pain (5) Chronic pain syndrome: Code(s): G89.4 - Chronic pain syndrome (6) Chronic, continuous use of opioids: Code(s): F11.90 - Opioid use, unspecified, uncomplicated (7) Chronic abdominal pain: Code(s): R10.9 - Unspecified abdominal pain; G89.29 - Other chronic pain Plan: Procedure: Intrathecal pump adjustment. The patient came today for adjustment of intrathecal pain pump doses. The pump was interrogated and the residual amount of fluid was found to be 14.0 mL mL. I left everything the same as it was before with continues dose of bupivacaine running at 1 mg a day and on demand bupivacaine 1.9 mg intrathecally which will be delivered over 40 minutes. She will be able to receive this dose up to 4 times a day every 4 hours. I will see her for the next pump refill. (8) Postdural puncture headache: Code(s): G97.1 - Other reaction to spinal and lumbar puncture Plan: Currently she reports waxing and waning with her post dural puncture headache. I am very reluctant to go for any procedures as long as she is neurologically stable on physical exam today I did not find any reason to suspect neurological instability. She reports that when she is spending more time of the day in vertical position and active the pain becomes more severe. She reports moderate help from Fioricet. We are working with his her insurance company to pre approve this medication for her. The operations administrative assistant appointment is scheduled to approve this medication. (9) Crohn's disease: Code(s): K50.90 - Crohn's disease, unspecified, without complications (10) Immunosuppression: Code(s): D84.9 - Immunodeficiency, unspecified (11) Spondylolisthesis, lumbar region: Code(s): M43.16 - Spondylolisthesis, lumbar region (12) Abdominal pain: Code(s): R10.9 - Unspecified abdominal pain Qualifiers: Abdominal location: lower abdomen, unspecified Qualified Code(s): R10.30 - Lower abdominal pain, unspecified Patient Instructions: I here by testify that I spent 35 minutes today discussing the doses of intrathecal medications explaining current complications and reading and adjusting her intrathecal pain pump. I also explained to her my plans to address the issue of her insurance not pain for Kyra with operations administrative assistant. The pump adjustment see as above. Coding Level of Care Code Est Pt Level 4 (49893) Procedure Only Diagnoses Cervicalgia M54.2 Behcet's disease M35.2 Crohn's disease K50.918 Digestive disease complication type: other complication Gastrointestinal tract location: unspecified location Low back pain M54.5 Chronic pain syndrome G89.4 Chronic, continuous use of opioids F11.90 Chronic abdominal pain R10.9; G89.29 Postdural puncture headache G97.1 Immunosuppression D84.9 Spondylolisthesis, lumbar region M43.16 Lower abdominal pain R10.30 Abdominal location: lower abdomen, unspecified
== END 2023-03-14 10:41 | disposition home or self-care (01) ==
PROVIDERS: PCP Nurse Practitioner Family; Visit Provider Anesthesiology
DX: M35.2 Behcet's disease (principal); M54.2 Cervicalgia; K50.918 Crohn's disease, unspecified, with other complication; Z45.1 Encounter for adjustment and management of infusion pump; G89.4 Chronic pain syndrome; M54.50 Low back pain, unspecified; G89.29 Other chronic pain; G97.1 Other reaction to spinal and lumbar puncture; D84.9 Immunodeficiency, unspecified; M43.16 Spondylolisthesis, lumbar region; R10.30 Lower abdominal pain, unspecified; K50.90 Crohn's disease, unspecified, without complications
CPT/HCPCS: 95991; 99214

== ENCOUNTER → 2023-03-14 10:03 | Outpatient (BNVA) | payer MEDICARE, MEDICAID, SELFPAY | PROVIDERS: PCP Nurse Practitioner Family; Visit Provider Anesthesiology | DX: Z45.1 Encounter for adjustment and management of infusion pump (principal); M35.2 Behcet's disease; K50.918 Crohn's disease, unspecified, with other complication; M43.16 Spondylolisthesis, lumbar region; M54.2 Cervicalgia; G89.29 Other chronic pain; G97.1 Other reaction to spinal and lumbar puncture; D84.9 Immunodeficiency, unspecified; R10.30 Lower abdominal pain, unspecified; F11.20 Opioid dependence, uncomplicated | CPT/HCPCS: 99212 ==

== ENCOUNTER 2023-03-31 10:06 | Outpatient (AMB) | payer MEDICARE, MEDICAID, SELFPAY ==
--- NOTE | 2023-03-31 10:13 | A.OFFVIS_ITS ---
Intake Vital Signs 03/31/23 10:51 Height 4 ft 11 in Weight 147 lb 6 oz BMI 29.8 BP 126/66 Blood Pressure Location Lt brachial Position Sitting Respiration 16 Pulse 81 Pulse Source Pulse Oximeter Pulse Oximetry (%) 96 Oxygen Delivery Method Room Air Intake Visit Reasons: ITDD REFILL and pill count/confirmed Intake Note: patient comes in for intrathecal medication refill and a pill count to Hydromorphone tablets. Patient presented with 61 tablets and should have 60 tablets. Which she took morning at 6 am. She reports pain level today of 4/10. Allergies ciprofloxacin [Cipro] Allergy (Unknown, Verified 03/31/23 10:52) Hives levofloxacin [Levaquin] Allergy (Unknown, Verified 03/31/23 10:52) Hives metoclopramide [Reglan] Allergy (Unknown, Verified 03/31/23 10:52) Hives ondansetron [Zofran] Allergy (Unknown, Verified 03/31/23 10:52) Itching penicillin V Allergy (Unknown, Verified 03/31/23 10:52) Hives prochlorperazine [From Compazine] Allergy (Unknown, Verified 03/31/23 10:52) Shortness of Breath Sulfa (Sulfonamide Antibiotics) Allergy (Unknown, Verified 03/31/23 10:52) Hives thalidomide [From Thalomid] Allergy (Unknown, Verified 03/31/23 10:52) Rash haloperidol [From Haldol] Allergy (Verified 03/31/23 10:52) Itching HPI HPI Comments History of Present Illness Details [place] in the office today for the pain pump refill and oral medication count. She presented today with 601 pills of hydromorphone she suppose to bring 60 pills, Therefore the pill count is correct. She reports significant pain improvement with her bupivacaine pain pump action. She agreed with me that in the next prescription intervale which will start 04/20/2023 she will be taking two pills of hydromorphone instead of three pills per day. She reports her headache is getting slightly better. Her insurance is denying fioricet so I am prescribing her generic version of fioriset with on line coupons. After the administration of the bolus dose spread out in time over the 40 minutes she reported no longer dizziness and lightheadedness. She already reports that intrathecal bupivacaine PTM does help her pain better than hydromorphone oral. Her postoperative period got complicated by postdural puncture headache. She went to ER with severe positional headache, nausea and vomiting on 02/13/23 where she was seen by me and recommended to try a conservative treatment of the headache mainly because of the difficulty with vascular access and therefore difficulty with performing epidural blood patch (She has a h/o 27 left and right supclavian placed portocaths for the administration of TPN and she has IVC portocath through which she receives Her TPN). Unfortunately conservative treatment was not successful and she went for epidural blood patch with right radial a-line placement and sterile blood obtained in the amount of 22 mls from the a-line and injected into the left L1- L2 interlaminar epidural space with contrast visualization of the intrathecal catheter which enters the intrathecal space at the right side of the L1- L2 intrathecal space. After blood patch her headache improved however today she came and reported that moderate positional headache returned however no nausea and vomiting. I again recommended conservative management: continual bed rest, minimal ambulation, caffeinated bevereges and fioricet prn. Pump refill and dose adjustment is as below Prior: Brooklyn is 41 years old female who is suffering from multiple medical conditions including Bencet disease, Crohn's disease, she is immunocompromised.? Her pain involves chronic abdominal pain in lower back pain.? She also has a chronic pelvic pain.? She was under might exacerbation on chronic oral opioid therapy for 3 years.? She was approved by psychological evaluation in the past for the neuromodulation.. [facility] Medical History Pulmonary emboli Absence seizure disorder DVT (deep venous thrombosis) Pyloric stenosis Asthma Common variable immunodeficiency Spondylolisthesis, lumbar region Spondylosis of lumbar region without myelopathy or radiculopathy Abdominal pain, chronic, generalized Gastroparesis Spontaneous pneumothorax Abdominal pain Chronic pain syndrome Cervicalgia Low back pain Crohn's disease Behcet's disease Surgical History History of hernia surgery Family History Father Hairy cell leukemia Social History Household Members: Children Household Members Other:: son Housing: Condominium Do you presently have visiting nurse or other home services: No Alcohol intake: never Patient Tobacco Use Status: Never used Tobacco Advance Directives Date on File: 03/12/21 service: No Current occupational status: unemployed Review of Systems Const All systems reviewed & are unremarkable except as noted in HPI and below Physical Exam Vital Signs: Last Vital Signs Pulse 81 03/31/23 10:51 Resp 16 03/31/23 10:51 BP 126/66 03/31/23 10:51 Pulse Ox 96 03/31/23 10:51 Oxygen Delivery Method Room Air 03/31/23 10:51 BMI result Body Mass Index 29.8 Const General: cooperative, no acute distress and alert Orientation/consciousness: patient oriented x3 HEENT Head: Yes normocephalic and Yes atraumatic Ears: hearing grossly normal bilaterally Eyes General: appearance normal, both eyes and all related structures Alignment and Position: alignment normal and position normal Periorbital: periorbital findings normal Eyelids: Yes eyelids normal Pupils: Equal, round and reactive pupils present, pupils equal and not dilated EOM: EOMs intact bilaterally Direct Ophthalmoscopy: no photophobia Neck Neck: Yes normal visual inspection and Yes no JVD Resp Effort & Inspection: normal respiratory effort, able to speak in complete sentences and no audible wheezes Cardio Jugular venous distension: no JVD GI Inspection: Yes incision and Yes scar Back/Spine/Pelvis Cervical Spine: normal cervical lordosis Thoracic/Lumbar Spine: thoracic and lumbar spine normal to inspection Neuro General: patient oriented x3, gait normal and moves all extremities Cranial nerves: Yes Equal, round and reactive pupils present Assessment & Plan Assessment & Plan (1) Cervicalgia: Code(s): M54.2 - Cervicalgia (2) Behcet's disease: Code(s): M35.2 - Behcet's disease (3) Crohn's disease: Code(s): K50.90 - Crohn's disease, unspecified, without complications Qualifiers: Digestive disease complication type: other complication Gastroint estinal tract location: unspecified location Qualified Code(s): K50.918 - Crohn's disease, unspecified, with other complication (4) Low back pain: Code(s): M54.5 - Low back pain (5) Chronic pain syndrome: Code(s): G89.4 - Chronic pain syndrome (6) Chronic, continuous use of opioids: Code(s): F11.90 - Opioid use, unspecified, uncomplicated (7) Chronic abdominal pain: Code(s): R10.9 - Unspecified abdominal pain; G89.29 - Other chronic pain Plan: Intrathecal pump refill ? Intrathecal pump refill. THE PATIENT CAME TODAY IN the office FOR THE CHANGE OF THE MEDICATION IN her PAIN PUMP. The name and date of were verified and informed consent was obtained for the procedure. The pump was interrogated and the residual amount of fluid was found to be 5.3 mL. SHE WAS POSITIONED prone on the bed AND THE AREA OF THE INTRATHECAL PUMP WAS PREPPED WITH CHLORAPREP. The fenestrated drape was sterilely applied over the area of the pump. Sterile gloves were worn and of the aspiration system was assembled containing 2 in 22 gauge noncoring needle, the needle was connected to extension tubing which was connected to the 20 cc sterile syringe. The pain pump was palpated under the skin in the patient's right buttock area. The needle was inserted through the skin and the central plug of the pain pump and fluid was aspirated. The clear fluid was going into the syringe the total amount of the fluid was 2.7 mL .. After that a new batch? of medication was obtained which was containing bupivacaine in concentration 14 per ml. The admixture was made in 20 cc syringe prepared by [facility] compounding pharmacy. The syringe was connected to the bacterial filter, and then connected to the extension tubing. After that the medication in the syringe was slowly instilled into the pump with aspirations at 15 and 5 cc joiner.? The pump was reprogrammed for the doses of 1 mg of bupivacaine the day and 1.9 mg of bupivacaine every 4 hours up to 4 administrations a day. (8) Postdural puncture headache: Code(s): G97.1 - Other reaction to spinal and lumbar puncture Plan: Currently she reports waxing and waning with her post dural puncture headache. I am very reluctant to go for any procedures as long as she is neurologically stable on physical exam today I did not find any reason to suspect neurological instability. She reports that when she is spending more time of the day in vertical position and active the pain becomes more severe. She reports moderate help from [employer]. We are working with his her insurance company to pre approve this medication for her. The patient has naloxone at home. (9) Crohn's disease: Code(s): K50.90 - Crohn's disease, unspecified, without complications (10) Immunosuppression: Code(s): D84.9 - Immunodeficiency, unspecified (11) Spondylolisthesis, lumbar region: Code(s): M43.16 - Spondylolisthesis, lumbar region (12) Abdominal pain: Code(s): R10.9 - Unspecified abdominal pain Qualifiers: Abdominal location: lower abdomen, unspecified Qualified Code(s): R10.30 - Lower abdominal pain, unspecified Plan pump refill as above. taper of hydromorphone is discussed and will be started in 2 weeks. another epidural blood patch will be performed if her headache is not getting better in 30 days. Medications: Changed From hydromorphone Partial fill per patient's request only 4 mg PO TID 30 days PRN 90 tabs 0RF severe pain (scale score 7-10) F11.90 - Opioid use, unspecified, uncomplicated, G89.29 - Other chronic pain, G89.4 - Chronic pain syndrome, R10.9 - Unspecified abdominal pain To hydromorphone Partial fill per patient's request only 4 mg PO BID PRN 60 tabs 0RF severe pain (scale score 7-10) 30 days F11.90 - Opioid use, unspecified, uncomplicated, G89.29 - Other chronic pain, G89.4 - Chronic pain syndrome, R10.9 - Unspecified abdominal pain Coding Level of Care Code Est Pt Level 3 (26174) Procedure Only Diagnoses Cervicalgia M54.2 Behcet's disease M35.2 Crohn's disease K50.918 Digestive disease complication type: other complication Gastrointestinal tract location: unspecified location Low back pain M54.5 Chronic pain syndrome G89.4 Chronic, continuous use of opioids F11.90 Chronic abdominal pain R10.9; G89.29 Postdural puncture headache G97.1 Immunosuppression D84.9 Spondylolisthesis, lumbar region M43.16 Lower abdominal pain R10.30 Abdominal location: lower abdomen, unspecified
[2023-03-31 10:51] VITALS: BP 126/66; PULSE 81; RESP 16; O2SAT 96; BMI 29.8
== END 2023-03-31 10:46 | disposition home or self-care (01) ==
PROVIDERS: PCP Nurse Practitioner Family; Visit Provider Anesthesiology
DX: G89.4 Chronic pain syndrome (principal); M54.2 Cervicalgia; M35.2 Behcet's disease; Z79.891 Long term (current) use of opiate analgesic; K50.918 Crohn's disease, unspecified, with other complication; M54.50 Low back pain, unspecified; R10.9 Unspecified abdominal pain; G89.29 Other chronic pain; G97.1 Other reaction to spinal and lumbar puncture; D84.9 Immunodeficiency, unspecified; M43.16 Spondylolisthesis, lumbar region; R10.30 Lower abdominal pain, unspecified
CPT/HCPCS: 62370; 99213

== ENCOUNTER → 2023-03-31 10:06 | Outpatient (BNVA) | payer MEDICARE, MEDICAID, SELFPAY | PROVIDERS: PCP Nurse Practitioner Family; Visit Provider Anesthesiology | DX: Z51.81 Encounter for therapeutic drug level monitoring (principal); F11.20 Opioid dependence, uncomplicated; M54.2 Cervicalgia; M35.2 Behcet's disease; K50.918 Crohn's disease, unspecified, with other complication; R10.9 Unspecified abdominal pain; G89.29 Other chronic pain; G97.1 Other reaction to spinal and lumbar puncture; M54.59 Other low back pain; D84.9 Immunodeficiency, unspecified; M43.16 Spondylolisthesis, lumbar region; R10.30 Lower abdominal pain, unspecified | CPT/HCPCS: 99212 ==

== ENCOUNTER 2023-04-18 19:59 | Inpatient (IN) | payer MEDICARE, MEDICAID, SELFPAY ==
--- NOTE | ~2023-04-18 | CT_ITS ---
EXAMINATION: CT ABDOMEN AND PELVIS WITH CONTRAST CLINICAL INFORMATION: Crohn's disease. CVA abdominal pain. Rule out small bowel obstruction. COMPARISON: CT abdomen pelvis 01/10/2023 TECHNIQUE: Multidetector volumetric images were obtained from the superior aspect of the liver through the pubic symphysis following administration 85 mL of Omnipaque 350 intravenous contrast. Sagittal and coronal reformatted images were obtained on the technologist's workstation. Oral contrast: No This CT examination was performed using dose optimization techniques as appropriate, variously including the following: *Automated exposure control *Adjustment of mA and/or kV according to patient size (this includes techniques or standardized protocols for targeted exams where dose is matched to indication/reason for exam; i.e. extremities or head) *Use of iterative reconstruction technique DLP: 475 mGy-cm FINDINGS: LUNG BASES: There is right middle lobe and left lower lobe platelike atelectasis. The heart size is normal. LIVER, GALLBLADDER, AND BILIARY TREE: The liver is normal in size, shape, and attenuation. No focal hepatic lesion or biliary ductal dilatation is present. The gallbladder is unremarkable with no evidence of radiopaque gallstones, gallbladder wall thickening, or obvious pericholecystic inflammatory changes. PANCREAS: Unremarkable. SPLEEN: Unremarkable. ADRENAL GLANDS: Unremarkable. KIDNEYS AND URETERS: The kidneys are normal in size, shape, and attenuation. No hydronephrosis, hydroureter, or calculi seen. No perinephric stranding. BLADDER: Unremarkable. GASTROINTESTINAL TRACT: There is a large amount of stool seen throughout the colon consistent with severe constipation. Nonspecific mild mural thickening of the descending and proximal ascending colon is noted but no pericolic fat stranding. Cecum lies in the right pelvis. There is moderate stool in the redundant sigmoid colon and rectum. The terminal ileum is distended with stool. Are normal caliber. Appendix is not visualized ABDOMINAL WALL: No significant hernia is appreciated. LYMPH NODES: Normal. VASCULAR: Abdominal aorta is of normal caliber. There is a catheter extending from posterior mid lumbar area to the IVC. PELVIC VISCERA: The uterus is anteverted and appears unremarkable. No adnexal mass or free fluid seen. No abnormal pelvic or inguinal lymph nodes. OSSEOUS STRUCTURES: No gross bony abnormality seen. There is intraspinal electrode extending cranially into mid dorsal spine with its tip not in [id number]. The hardware is in the left buttock. CT/CT abdomen pelvis w IV con IMPRESSION: Seizure constipation. Diffuse mural thickening involving the entire descending colon and proximal ascending colon. This is most likely inflammatory or infectious colitis. No diverticuli seen. Mild distended terminal ileum with stool. No free air or free fluid seen. Fleischner guidelines were followed.
[2023-04-18 20:10] VITALS: BP 134/85; BP 142/72; PULSE 81; PULSE 88; RESP 16; TEMP 36.7; O2SAT 96; O2SAT 98; BMI 28.9
--- NOTE | 2023-04-18 20:27 | ED_ITS ---
HPI - Abdominal Pain General Chief Complaint: Abdominal Pain Stated Complaint: LOWER ABD PAIN Time Seen by Provider: 04/18/23 20:19 Source: patient and EMS Mode of arrival: EMS Limitations: no limitations History of Present Illness HPI narrative: This is a 42-year-old female with pertinent history of chronic pain syndrome, seizure disorder, DVT/PE on Eliquis, asthma, Crohn's disease, Behcet's syndrome, small bowel obstruction. Patient presented with 1 day of severe lower abdominal pain with nausea and vomiting, reported no bowel movement for 6 days. No fever, no chills. Patient had history of multiple episodes of Crohn's disease flare. Related Data Home Medications Medication Instructions Recorded Confirmed albuterol sulfate 90 mcg/actuation 2 puff inhalation Q4H PRN Wheezing 12/12/20 02/05/23 aerosol inhaler fluticasone furoate 200 1 inh inhalation Q24H 12/12/20 02/05/23 mcg-vilanterol 25 mcg/dose inhalation powder (Breo Ellipta) umeclidinium 62.5 mcg/actuation 1 inh inhalation DAILY 12/12/20 02/05/23 blister powder for inhalation (Incruse Ellipta) diphenhydramine HCl 50 mg/mL 25 mg IV QID PRN Nausea 03/12/21 02/05/23 injection solution ondansetron HCl (PF) 4 mg/2 mL 4 mg IV QID PRN Nausea 03/12/21 02/05/23 injection solution levetiracetam 100 mg/mL oral 700 mg PO BID 08/18/21 02/05/23 solution (Keppra) promethazine 25 mg tablet 25 mg PO QID PRN Nausea And 08/18/21 02/05/23 Vomiting adalimumab 40 mg/0.4 mL 40 mg subcut Q2W 02/05/23 02/05/23 subcutaneous pen kit (Humira(CF) Pen) pantoprazole 40 mg tablet,delayed 40 mg PO DAILY PRN ACID REFLEX 02/05/23 02/05/23 release Previous Rx's Medication Instructions Recorded apixaban 5 mg tablet (Eliquis) 5 mg PO BID #60 tabs 02/15/23 [id number]-[id number] 1 cap PO TID PRN Post dural 03/23/23 50 mg-300 mg-40 mg capsule puncture headache 10 days #30 caps (Fioricet) hydromorphone 4 mg tablet 4 mg PO BID PRN severe pain (scale 04/03/23 score 7-10) 30 days #60 tabs Allergies Allergy/AdvReac Type Severity Reaction Status Date / Time ciprofloxacin [Cipro] Allergy Unknown Hives Verified 03/31/23 10:52 levofloxacin [Levaquin] Allergy Unknown Hives Verified 03/31/23 10:52 metoclopramide [Reglan] Allergy Unknown Hives Verified 03/31/23 10:52 ondansetron [Zofran] Allergy Unknown Itching Verified 03/31/23 10:52 penicillin V Allergy Unknown Hives Verified 03/31/23 10:52 prochlorperazine Allergy Unknown Shortness Verified 03/31/23 10:52 [From Compazine] of Breath Sulfa (Sulfonamide Allergy Unknown Hives Verified 03/31/23 10:52 Antibiotics) thalidomide [From Thalomid] Allergy Unknown Rash Verified 03/31/23 10:52 haloperidol [From Haldol] Allergy Itching Verified 03/31/23 10:52 Review of Systems Review of Systems All other systems are reviewed and are negative Constitutional: Reports as per HPI and Reports no additional constitutional complaints Eyes: Reports as per HPI and Reports no additional eye complaints Reports system reviewed and no additional complaints, except as documented Cardiovascular: Reports as per HPI and Reports no additional cardiovascular complaints Respiratory: Reports as per HPI and Reports no additional respiratory complaints Gastrointestinal: Reports as per HPI and Reports no additional gastrointestinal complaints Genitourinary: Reports no additional female genitourinary complaints Musculoskeletal: Reports no additional musculoskeletal complaints Skin/Breast: Reports system reviewed and no additional complaints, except as docu Psychiatric: Reports no additional psychiatric complaints Endocrine: Reports no additional endocrine complaints Hematologic/Lymphatic: Reports no additional hematologic/lymphatic complaints Allergic/Immunologic: Reports no additional allergic/immunologic complaints Reports system reviewed and no additional complaints, except as documented and Reports Abnormal speech present PMFSH Past Medical History Medical History Crohn's disease Chronic, continuous use of opioids Immunosuppression Chronic pain Pulmonary emboli Absence seizure disorder DVT (deep venous thrombosis) Pyloric stenosis Asthma Common variable immunodeficiency Spondylolisthesis, lumbar region Spondylosis of lumbar region without myelopathy or radiculopathy Abdominal pain, chronic, generalized Gastroparesis Spontaneous pneumothorax Abdominal pain Chronic pain syndrome Cervicalgia Low back pain Crohn's disease Behcet's disease Surgical History History of hernia surgery Family History Family History Father Hairy cell leukemia Social History Household Members: Children Household Members Other:: son [facility] Do you presently have visiting nurse or other home services: No Alcohol intake: never Patient Tobacco Use Status: Never used Tobacco Advance Directives: Yes Advance Directives on File: Yes Advance Directives Date on File: 03/12/21 service: No Current occupational status: unemployed Physical Exam ED Vital Signs: Vital Signs - 24 hr 04/18/23 20:10 04/18/23 20:50 04/18/23 22:00 Temperature 98.0 F 98.3 F 98.3 F Pulse Rate 81 86 89 Respiratory Rate 16 16 16 Blood Pressure 134/85 138/82 129/72 Pulse Oximetry 96 98 94 Oxygen Delivery Method Room Air Room Air Room Air BMI result Body Mass Index 28.9 Vital signs have been reviewed and appear to be correct. Blood pressure elevated. Heart rate normal. Respiratory rate normal. Temperature normal. Oxygen saturation normal. Appearance: Alert. Oriented X3. No acute distress. Head: Normal external exam. Normocephalic. Atraumatic. No Henson signs noted. No raccoon eyes noted Eyes: PERRLA. EOMI. Conjunctiva and sclera normal. Eyelids normal. ENT: TM's Normal. Pharynx normal. Uvula midline. Moist mucous membranes. No trismus noted. No drooling noted. No muffled voice noted. Neck: Normal inspection. Neck supple. FROM. No adenopathy. Thyroid Normal. No meningeal signs. No neck mass noted. CVS: Normal heart rate and rhythm. Heart sound normal. No murmurs noted. Pulses normal throughout. Respiratory: No respiratory distress. Painless inspiration. Breath sounds normal. No wheezes/rales/rhonchi noted. Chest nontender. No accessory muscle usage noted or decreased air movement noted. Abdomen: Diffuse abdominal tenderness, no guarding, no rebound tenderness. Bowel sounds normal in all 4 quadrants. No distention noted. No organomegaly noted. No visible injury noted. Back: No CVA tenderness. Full range of motion noted. Skin: Skin warm and dry. Normal skin color. Normal skin turgor. No rashes/lesions/lacerations noted. Extremities: No lower extremity edema. Extremities exhibit normal range of motion. Extremities nontender. Neuro: Oriented X 3. Cranial nerve exam: II-XII are grossly intact No motor deficit. No sensory deficit. Reflexes normal. Course Reevaluation(s) Reevaluation #1: 42-year-old female history of Crohn's disease came in with acute exacerbation of Crohn's disease and abdominal pain. CT abdomen and pelvis showing no complication from Crohn's disease. Patient was given Solu-Medrol, IV fluids, analgesia. Will admit for further GI evaluation. Time: 00:06 Medical Decision Making Differential Diagnosis Differential Diagnoses: The differential diagnosis associated with the presentation includes (Constipation, colitis, Crohn's disease exacerbation, viscous perforation, electrolyte abnormality, severe anemia.) Admission/Observation Consideration of admission/observation: Escalation of care including admission/observation considered Consult Healthcare Provider Management of the patient was discussed with: Hospitalist (Dr. Stephens) Lab Data MDM Lab Attestation statement: I reviewed the patient's lab results. 04/18/23 20:38 04/18/23 20:38 Labs: Lab Results 04/18/23 Range/Units 20:38 WBC 10.8 (4.8-10.8) X10*3/uL RBC 4.59 D (4.20-5.50) X10*6/uL Hgb 13.6 D (12.0-16.0) g/dl Hct 40.6 D (37.0-47.0) % MCV 88.5 (80.0-98.0) fL MCH 29.6 (27.0-33.0) pg MCHC 33.5 (31.0-35.0) g/dl RDW 12.7 (11.0-16.0) % Plt Count 228 (160-400) X10*3/uL MPV 11.2 (9.4-12.3) fL Absolute Nucleated RBC 0.000 (0.0-0.012) X10*3/uL Nucleated RBC % (auto) 0.0 (0.0-0.2) /100WBC Sodium 138 (135-145) mmol/L Potassium 4.2 (3.3-5.1) mmol/L Chloride 105 (96-108) mmol/L Carbon Dioxide 24 (22-29) mmol/L Anion Gap 13 (12-20) BUN 16 (9-16) mg/dL Creatinine 0.73 (0.5-1.4) mg/dL Estim Creat Clear Calc 80.5 Estimated GFR > 60 Random Glucose 110 (60-115) mg/dL Calcium 9.3 (8.4-10.2) mg/dL Total Bilirubin 0.2 (0.0-1.0) mg/dL AST 18 (5-31) U/L ALT 15 (0-31) U/L Alkaline Phosphatase 64 (39-117) U/L Total Protein 7.5 (6.5-8.0) g/dL Albumin 4.6 (3.5-5.0) g/dL Lipase 14 (8-78) U/L Beta HCG, Quant 7 mIU/mL Independent Interpretation I performed an independent interpretation of an: CT Scan (Abdomen pelvis:Seizure constipation. Diffuse mural thickening involving the entire descending colon and proximal ascending colon. This is most likely inflammatory or infectious colitis. No diverticuli seen. Mild distended terminal ileum with stool. No free air or free fluid seen. ) Radiology Impression Discussion of test interpretation with radiology: I have reviewed the radiologist's reading. Medications Administered Discontinued Medications Generic Name Dose Route Start Last Admin Trade Name Freq PRN Reason Stop Dose Admin Diphenhydramine HCl 50 mg 04/18/23 21:24 04/18/23 21:29 Diphenhydramine Hcl 50 Mg/Ml Vial IVPUSH 04/18/23 21:25 50 mg ONCE ONE Administration Hydromorphone HCl 1 mg 04/18/23 20:24 04/18/23 21:29 Hydromorphone Hcl 1 Mg/Ml Syringe IVPUSH 04/18/23 20:25 1 mg ONCE ONE Administration Protocol Sodium Chloride 1,000 mls @ 999 mls/hr 04/18/23 20:24 04/18/23 21:29 Ns IV 04/18/23 21:24 999 mls/hr .Q1H1M ONE Administration Iohexol 85 ml 04/18/23 21:47 04/18/23 21:48 Iohexol 350 Mg/Ml 100 Ml Infus..Btl IV 04/18/23 21:48 85 ml ONCE ONE Administration Methylprednisolone Sodium Succinate 125 mg 04/18/23 20:24 04/18/23 21:29 Methylprednisolone Sod Succ 125 Mg/2 Ml Vial IVPUSH 04/18/23 20:25 125 mg ONCE ONE Administration Ondansetron HCl 4 mg 04/18/23 20:24 04/18/23 21:29 Ondansetron Hcl 4 Mg/2 Ml Vial IVPUSH 04/18/23 20:25 4 mg ONCE ONE Administration Discharge Plan Discharge Clinical Impression: Exacerbation of Crohn's disease Qualifiers: Digestive disease complication type: without complication Qualified Code(s): K 50.90 - Crohn's disease, unspecified, without complications Patient Disposition: Admitted As Inpatient
[2023-04-18 20:50] VITALS: BP 138/82; PULSE 86; RESP 16; TEMP 36.8; O2SAT 98
[2023-04-18 20:57] LABS: Hematocrit 40.6 % (37.0-47.0); Hemoglobin 13.6 g/dl (12.0-16.0); Mean Corpuscular HGB Conc 33.5 g/dl (31.0-35.0); Mean Corpuscular Hemoglobin 29.6 pg (27.0-33.0); Mean Corpuscular Volume 88.5 fL (80.0-98.0); Mean Platelet Volume 11.2 fL (9.4-12.3); Platelet Count 228 X10*3/uL (160-400); Red Blood Count 4.59 X10*6/uL (4.20-5.50); Red Cell Distribution Width 12.7 % (11.0-16.0); White Blood Count 10.8 X10*3/uL (4.8-10.8)
[2023-04-18 21:04] LABS: Alanine Aminotransferase 15 U/L (0-31); Albumin Level 4.6 g/dL (3.5-5.0); Alkaline Phosphatase 64 U/L (39-117); Anion Gap 13 (12-20); Aspartate Amino Transferase 18 U/L (5-31); Bilirubin Total 0.2 mg/dL (0.0-1.0); Blood Urea Nitrogen 16 mg/dL (9-16); Calcium 9.3 mg/dL (8.4-10.2); Carbon Dioxide 24 mmol/L (22-29); Chloride 105 mmol/L (96-108); Creatinine Clr Calc Pharmacy 80.5; Estimated Glomerular Filt Rate > 60; Glucose Random 110 mg/dL (60-115); HCG Quantitative 7 mIU/mL; Lipase 14 U/L (8-78); Potassium 4.2 mmol/L (3.3-5.1); Sodium 138 mmol/L (135-145); Total Protein 7.5 g/dL (6.5-8.0)
[2023-04-18] MEDS: diphenhydrAMINE HCL 50 MG/ML VIAL IVPUSH (21:29)
[2023-04-18] MEDS: 0.9 % Sodium Chloride 1,000 ML 999 ML IV (21:29)
[2023-04-18] MEDS: HYDROmorphone HCl 1 MG/ML SYRINGE IVPUSH (21:29)
[2023-04-18] MEDS: methylPREDNISolone Sod Succ 125 MG/2 ML VIAL IVPUSH (21:29)
[2023-04-18] MEDS: ondansetron HCL 4 MG/2 ML VIAL IVPUSH (21:29)
[2023-04-18] MEDS: iohexoL 350 MG/ML 100 ML INFUS..BTL 85 ML IV (21:48)
[2023-04-18 22:00] VITALS: BP 129/72; PULSE 89; RESP 16; TEMP 36.8; O2SAT 94
--- NOTE | 2023-04-18 22:00 | PC.NURSE ---
22g iv placed in R bicep. pt tolerated well, pt has accessed tpn port that pt used for home iv medications, per imaging is a power port. this was confirmed after placement of 22g iv. pt medicated according to mar
[2023-04-19 00:37] VITALS: BP 131/74; PULSE 78; RESP 17; TEMP 37.1; O2SAT 93
--- NOTE | 2023-04-19 01:05 | PC.NURSE ---
this rn attempted to medicate pt with 0.45% NS, do not have available on department. house sup. contacted to obtain fluids
--- NOTE | 2023-04-19 01:13 | PC.NURSE ---
bedside med rec completed by this rn with pt. pt a&O x4
--- NOTE | 2023-04-19 01:27 | PC.NURSE ---
pt reporting return of pain, this rn made dr rush aware of pt complaint awaiting orders for pain medication . report given to christian caicedo informed of policy change clerks supervisor bringing ivf to rm [phone] as well as waiting for md to place order for pain medications
--- NOTE | 2023-04-19 01:35 | PM.IMHP ---
History of Present Illness Date of Service: 04/18/23 Chief Complaint: Abdominal pain 42-year-old female with pertinent history of chronic pain syndrome, seizure disorder, DVT/PE on Eliquis, asthma , behcets, crohn's who is prsenting with acute abdominal pain. She reports sudden onset at around 2:45 pm, pain is localized to lower abdominal area, severe, 10/10, associated with nasuea but no vomitting, no diarrhea and no fever. ED work: normal WBC, CT show : severe constipation , Diffuse mural thickening involving the entire descending colon and proximal ascending colon. This is most likely inflammatory or infectious colitis. Given IV steroid for presumed chrohns flare Review of Systems Review of Systems: Gen: no fever Resp: no sob, no cough CV: no chest, no LAINEZ, no leg edema GI: +nausea, + abdominal pain, no diarrhea, +constipation Neuro: No confusion Yes all other systems are reviewed and are negative [facility] Medical History (Updated 06/24/23 @ 14:14 by Marisa Jarrell RN) Pulmonary emboli Crohn's disease Chronic, continuous use of opioids Immunosuppression Absence seizure disorder DVT (deep venous thrombosis) Pyloric stenosis Asthma Common variable immunodeficiency Spondylolisthesis, lumbar region Spondylosis of lumbar region without myelopathy or radiculopathy Abdominal pain, chronic, generalized Gastroparesis Spontaneous pneumothorax Chronic pain syndrome Cervicalgia Low back pain Behcet's disease Family History Father Hairy cell leukemia Surgical History History of hernia surgery Social History Household Members: Children Household Members Other:: son Housing: Condominium Do you presently have visiting nurse or other home services: No Alcohol intake: never Patient Tobacco Use Status: Never used Tobacco Second Hand Smoke Exposure: No Advance Directives Date on File: 03/12/21 service: No Current occupational status: unemployed Meds Allergies Allergy/AdvReac Type Severity Reaction Status Date / Time ciprofloxacin [Cipro] Allergy Unknown Hives Verified 05/26/23 11:07 levofloxacin [Levaquin] Allergy Unknown Hives Verified 05/26/23 11:07 metoclopramide [Reglan] Allergy Unknown Hives Verified 05/26/23 11:07 ondansetron [Zofran] Allergy Unknown Itching Verified 05/26/23 11:07 penicillin V Allergy Unknown Hives Verified 05/26/23 11:07 prochlorperazine Allergy Unknown Shortness Verified 05/26/23 11:07 [From Compazine] of Breath Sulfa (Sulfonamide Allergy Unknown Hives Verified 05/26/23 11:07 Antibiotics) thalidomide [From Thalomid] Allergy Unknown Rash Verified 05/26/23 11:07 haloperidol [From Haldol] Allergy Itching Verified 05/26/23 11:07 Active Medications: Current Medications Acetaminophen (Acetaminophen 325 Mg Tablet) 650 mg PO Q6H PRN PRN Reason: Pain, Mild (Pain Scale 1-3) Hydromorphone HCl (Hydromorphone Hcl 1 Mg/Ml Syringe) 1 mg IVPUSH Q6H PRN; Protocol PRN Reason: Pain, Severe (Pain Scale 7-10) Sodium Chloride (Sodium Chloride 0.45 %) 1,000 mls @ 100 mls/hr IVCONT .Q10H ANNA Melatonin (Melatonin 3 Mg Tablet) 6 mg PO BEDTIME PRN PRN Reason: Insomnia Ondansetron HCl (Ondansetron Hcl 4 Mg/2 Ml Vial) 4 mg IVPUSH Q8H PRN PRN Reason: Nausea and Vomiting Sodium Chloride (0.9 % Sodium Chloride Flush 3 Ml Syringe) 3 ml IVFLUSH QSHIFT ANNA Last Admin: 04/19/23 01:07 Dose: Not Given Home Medications Medication Instructions Recorded Confirmed Last Taken Type albuterol sulfate 90 mcg/actuation 2 puff inhalation Q4H PRN Wheezing 12/12/20 04/19/23 02/04/23 History aerosol inhaler fluticasone furoate 200 1 inh inhalation Q24H 12/12/20 04/19/23 02/04/23 History mcg-vilanterol 25 mcg/dose inhalation powder (Breo Ellipta) umeclidinium 62.5 mcg/actuation 1 inh inhalation DAILY 12/12/20 04/19/23 02/04/23 History blister powder for inhalation (Incruse Ellipta) diphenhydramine HCl 50 mg/mL 25 mg IV QID PRN Nausea 03/12/21 04/19/23 02/04/23 History injection solution ondansetron HCl (PF) 4 mg/2 mL 4 mg IV QID PRN Nausea 03/12/21 04/19/23 02/04/23 History injection solution levetiracetam 100 mg/mL oral 700 mg PO BID 08/18/21 04/19/23 02/04/23 History solution (Keppra) promethazine 25 mg tablet 25 mg PO QID PRN Nausea And 08/18/21 04/19/23 02/04/23 History Vomiting pantoprazole 40 mg tablet,delayed 40 mg PO DAILY PRN ACID REFLEX 02/05/23 04/19/23 02/04/23 History release Physical Exam Vital Signs and Narrative: Vital Signs: Last Vital Signs Temp 98.8 F 04/19/23 00:37 Pulse 78 04/19/23 00:37 Resp 17 04/19/23 00:37 BP 131/74 04/19/23 00:37 Pulse Ox 93 04/19/23 00:37 O2 Del Method Room Air 04/19/23 00:37 BMI result Body Mass Index 28.9 Const: Other: Constitutional: Alert, in no distress, overweight. Mental Status: Oriented to person, place and time. Eyes: Pupils are equal, round and reactive to light. Ear, Nose and Throat: Oropharynx clear, mucous membranes moist. Respiratory: Clear to auscultation. No wheezing, rales or rhonchi. Cardiovascular: S1 S2 regular. No murmurs, rubs or gallops. Gastrointestinal: Abdomen soft, no distention, lower abdominal tenderness, no guarding, n rebound Neurologic: Cranial nerves II-XII grossly intact. No focal neurological deficits. Moves all extremities spontaneously.? Skin: No rashes or lesions.? Musculoskeletal: No cyanosis or clubbing. Psychiatric: Normal mood and affect? Results Labs 04/20/23 05:06 04/21/23 05:20 Labs: Laboratory Results - last 24 hr Imaging Radiologist's Impressions: Impressions Abdomen/Pelvis CT 04/18/23 21:52 IMPRESSION: Seizure constipation. Diffuse mural thickening involving the entire descending colon and proximal ascending colon. This is most likely inflammatory or infectious colitis. No diverticuli seen. Mild distended terminal ileum with stool. No free air or free fluid seen. Fleischner guidelines were followed. Assessment and Plan (1) Chronic abdominal pain: Status: Acute Plan 42-year-old female with pertinent history of chronic pain syndrome, seizure disorder, DVT/PE on Eliquis, asthma , behcets, crohn's who is prsenting with acute abdominal pain and found to have a flare of crohns Abdominal pain due to crohn's flare -IV solumedrol, IVF, dilaudid for pain , NPO until gi eval -check CRP and ESR -Gi consult -hold Abx given no fever and nl WBC Constipation--bowel regimen h/o PE/DVT -continue Eliquis Seizure d/o -continue Keppra - seizure precautions mod persistent Asthma, no exacerbation, continue baseline inhalers continue baseline inhalers, no acute exacerbation DVT prophylaxis: Eliquis Admission for at least 2 midngiths for management of acute flare of crohn's Quality Stroke Does the patient have a stroke diagnosis?: No VTE Prior VTE?: Yes VTE Risk Level:: Medical - moderate - high VTE Device Contraindication: Treatment Not Indicated VTE Drug Contraindication: N/A - Med Ordered
[2023-04-19 01:55] VITALS: BMI 29.5
[2023-04-19 02:09] LABS: C Reactive Protein 0.14 mg/dL (< or = 0.50)
[2023-04-19 02:26] LABS: Erythrocyte Sedimentation Rate 2 MM/HR (0-20)
[2023-04-19] MEDS: Sodium Chloride 0.45 % 1,000 ML 100 ML IVCONT ×2 (02:33→12:36)
[2023-04-19] MEDS: HYDROmorphone HCl 1 MG/ML SYRINGE IVPUSH ×4 (02:33→22:57)
[2023-04-19 03:13] VITALS: BP 129/72; PULSE 80; RESP 18; TEMP 36.3; O2SAT 95
[2023-04-19] MEDS: ondansetron HCL 4 MG/2 ML VIAL IVPUSH ×2 (04:10→16:20)
[2023-04-19] MEDS: diphenhydrAMINE HCL 50 MG/ML VIAL 25 MG IV ×4 (04:14→22:57)
--- NOTE | 2023-04-19 05:41 | PC.NURSE ---
Pt arrived to the unit from the ED at 0210, alert and oriented, some dizziness when getting up, mild headache, still presenting with lower abd pain tender and crampy /10,prn Diluadid was given with good effect. Pt admits to have bowel and urine incontinence, incont pad worn. Pt claimed she can tolerate po, denies any dysphagia, She has a Portacath located on the Right lower back wherein she get TPN at home, came in with the port accessed. Pt had recently have intrathecal pump implant last Jan 2023 that she controls on a phone device, when med is delivered she gets LE numbness and weakness. Pt denies any recent seizure, last one was 2 yrs ago, seizure prec in place. Pt reports recent fall episode at home few weeks ago without any injury incurred, safety measures in place, bed alarm on, callbell in place.
[2023-04-19 07:20] VITALS: BP 122/67; PULSE 71; RESP 18; TEMP 36.2; O2SAT 94
--- NOTE | 2023-04-19 07:37 | PM.GICN ---
History of Present Illness Data of Consult Service Date: 04/19/23 Primary Care Provider: Lalitha Sherman NP HPI Reason for consult: abdominal pain 42-year-old female with history of chronic pain, crohns,behcets, seizure disorder, DVT/PE on Eliquis, asthma who I am asked to see for abdominal pain assessment. Patient has not had bowel motion for 1 week and noted worsening distention. yesterday she had severe crampy diffuse abdominal pain, without any relieving or exacerbating factors. She has mild nausea but no vomiting, no fevers chills, rectal bleeding. mild joint pains, no swelling or canker sores. Sebri is on hydromorphone 3 times a day for back pain. She has not had her humira for months and is waiting to hear back from her GI at [facility] about restarting. She has a pain pump in place as well Imaging: Constipation mild colon wall thickening [place] descending colon Review of Systems Review of Systems: Constitutional : No Weight loss, No Fever, No Chills ENT/Mouth : No sore throat, No Rhinorrhea Eyes: No Swelling, No Redness Cardiovascular : No Chest Pain, No SOB, No Edema Respiratory : No Cough, No Sputum, No Wheezing Gastrointestinal : see HPI Genitourinary : NO Dysuria, No Urinary Frequency, No Hematuria, No Urgency Musculoskeletal : No joint pain, No Myalgias, No Joint Swelling Skin : No Skin Lesions, No rash Neuro : No Weakness, No Numbness, No Dizziness, + Headache Psych : No Anxiety/Panic, No Depression Heme/Lymph: No Bruising, No Lymphadenopathy Endocrine : No Polyuria, No Polydipsia All other systems reviewed and are negative. [facility], [facility] Past Medical History Medical History Crohn's disease Chronic, continuous use of opioids Immunosuppression Chronic pain Pulmonary emboli Absence seizure disorder DVT (deep venous thrombosis) Pyloric stenosis Asthma Common variable immunodeficiency Spondylolisthesis, lumbar region Spondylosis of lumbar region without myelopathy or radiculopathy Abdominal pain, chronic, generalized Gastroparesis Spontaneous pneumothorax Abdominal pain Chronic pain syndrome Cervicalgia Low back pain Crohn's disease Behcet's disease Family History Family History Father Hairy cell leukemia Surgical History Surgical History History of hernia surgery Social History Social History Household Members: Children Household Members Other:: son Housing: Condominium Do you presently have visiting nurse or other home services: No Alcohol intake: never Patient Tobacco Use Status: Never used Tobacco Smoked in Last 30 Days: No Use of substances other than those prescribed or required for medical reasons: No Currently Displaying Signs/Symptoms of Drug Intoxication Withdrawal: No Have you been hit, kicked, punched, or otherwise hurt by someone within the past year? If so, by whom?: No Do you feel safe in your current relationship?: No Is there a partner from a previous relationship who is making you feel unsafe now?: No Are you made to feel afraid or neglected: No Advance Directives: Yes Advance Directives on File: Yes Advance Directives Date on File: 03/12/21 Do you have thoughts of harming others: None Do you have a plan to hurt others: No Plan Recently lost weight without trying: No How much weight loss: Unsure Eating poorly because of decreased appetite: No Nutrition screen score: 2 Nutrition Risks: Receiving home tube feeding or CPN Patient : No : No Poor oral hygiene: No service: No Current occupational status: unemployed Meds Allergies Allergy/AdvReac Type Severity Reaction Status Date / Time ciprofloxacin [Cipro] Allergy Unknown Hives Verified 03/31/23 10:52 levofloxacin [Levaquin] Allergy Unknown Hives Verified 03/31/23 10:52 metoclopramide [Reglan] Allergy Unknown Hives Verified 03/31/23 10:52 ondansetron [Zofran] Allergy Unknown Itching Verified 03/31/23 10:52 penicillin V Allergy Unknown Hives Verified 03/31/23 10:52 prochlorperazine Allergy Unknown Shortness Verified 03/31/23 10:52 [From Compazine] of Breath Sulfa (Sulfonamide Allergy Unknown Hives Verified 03/31/23 10:52 Antibiotics) thalidomide [From Thalomid] Allergy Unknown Rash Verified 03/31/23 10:52 haloperidol [From Haldol] Allergy Itching Verified 03/31/23 10:52 Active Medications: Current Medications Acetaminophen (Acetaminophen 325 Mg Tablet) 650 mg PO Q6H PRN PRN Reason: Pain, Mild (Pain Scale 1-3) Acetaminophen/Butalbital/Caffeine (Butalb/Acetamin/Caff 50/325/40 Tablet) 1 tab PO TID PRN PRN Reason: Post dural puncture headache Albuterol Sulfate (Albuterol Sulfate 90 Mcg 8 Gm Inhaler) 2 puff INHALE Q4H PRN PRN Reason: Wheezing Apixaban (Apixaban 5 Mg Tablet) 5 mg PO BID [facility] Diphenhydramine HCl (Diphenhydramine Hcl 50 Mg/Ml Vial) 25 mg IV QID PRN PRN Reason: Nausea Last Admin: 04/19/23 04:14 Dose: 25 mg Fluticasone/Vilanterol (Fluticasone/Vilanterol 200/25 Blst.W.Dev) 1 puff INHALE DAILY [facility] Hydromorphone HCl (Hydromorphone Hcl 1 Mg/Ml Syringe) 1 mg IVPUSH Q6H PRN; Protocol PRN Reason: Pain, Severe (Pain Scale 7-10) Last Admin: 04/19/23 02:33 Dose: 1 mg Sodium Chloride (Sodium Chloride 0.45 %) 1,000 mls @ 100 mls/hr IVCONT .Q10H [facility] Last Admin: 04/19/23 02:33 Dose: 100 mls/hr Levetiracetam (Levetiracetam Oral Soln 500 Mg/5 Ml) 700 mg PO BID [facility] Melatonin (Melatonin 3 Mg Tablet) 6 mg PO BEDTIME PRN PRN Reason: Insomnia Omeprazole (Omeprazole 20 Mg Capsule.Dr) 20 mg PO DAILY PRN PRN Reason: ACID REFLEX Ondansetron HCl (Ondansetron Hcl 4 Mg/2 Ml Vial) 4 mg IVPUSH Q8H PRN PRN Reason: Nausea and Vomiting Last Admin: 04/19/23 04:10 Dose: 4 mg Ondansetron HCl (Ondansetron Hcl 4 Mg/2 Ml Vial) 4 mg IV QID PRN PRN Reason: Nausea Sodium Chloride (0.9 % Sodium Chloride Flush 3 Ml Syringe) 3 ml IVFLUSH QSHIFT [facility] Last Admin: 04/19/23 01:07 Dose: Not Given Tiotropium [place] (Tiotropium [place] 2.5 Mcg 1 Puff/2.5 Mcg Mist.Inhal) 2 puff INHALE DAILY [facility] Home Medications Medication Instructions Recorded Confirmed Last Taken Type albuterol sulfate 90 mcg/actuation 2 puff inhalation Q4H PRN Wheezing 12/12/20 04/19/23 02/04/23 History aerosol inhaler fluticasone furoate 200 1 inh inhalation Q24H 12/12/20 04/19/23 02/04/23 History mcg-vilanterol 25 mcg/dose inhalation powder (Breo Ellipta) umeclidinium 62.5 mcg/actuation 1 inh inhalation DAILY 12/12/20 04/19/23 02/04/23 History blister powder for inhalation (Incruse Ellipta) diphenhydramine HCl 50 mg/mL 25 mg IV QID PRN Nausea 03/12/21 04/19/23 02/04/23 History injection solution ondansetron HCl (PF) 4 mg/2 mL 4 mg IV QID PRN Nausea 03/12/21 04/19/23 02/04/23 History injection solution levetiracetam 100 mg/mL oral 700 mg PO BID 08/18/21 04/19/23 02/04/23 History solution (Keppra) promethazine 25 mg tablet 25 mg PO QID PRN Nausea And 08/18/21 04/19/23 02/04/23 History Vomiting pantoprazole 40 mg tablet,delayed 40 mg PO DAILY PRN ACID REFLEX 02/05/23 04/19/23 02/04/23 History release Physical Exam Vital Signs: Vital Signs: Last Vital Signs Temp 97.2 F 04/19/23 07:20 Pulse 71 04/19/23 07:20 Resp 18 04/19/23 07:20 BP 122/67 04/19/23 07:20 Pulse Ox 94 04/19/23 07:20 O2 Del Method Room Air 04/19/23 07:20 BMI result Body Mass Index 29.5 EXAM: GENERAL: The patient is well developed and nontoxic. VITAL SIGNS:see workflow HEENT: Nonicteric sclerae, PERRLA, EOMI. Oropharynx clear. Moist mucous membranes. Conjunctivae appear well perfused. No thyroid mass. CHEST: Chest wall is nontender. HEART: Regular rate and rhythm without murmurs. LUNGS: Clear to auscultation bilaterally. ABDOMEN: mildly distended, positive bowel sounds, tender mid line, no organomegaly.no flank tenderness SKIN: No rash, no excessive bruising, petechiae, or purpura. NEUROLOGIC: Cranial nerves II-XII intact without motor/sensory deficit. Psych: normal affect Psych: Appearance: grossly normal Results Labs 04/18/23 20:38 04/18/23 20:38 Labs: Short CBC 04/18/23 Range/Units 20:38 WBC 10.8 (4.8-10.8) X10*3/uL Hgb 13.6 D (12.0-16.0) g/dl Hct 40.6 D (37.0-47.0) % Plt Count 228 (160-400) X10*3/uL BMP 04/18/23 20:38 Sodium 138 Potassium 4.2 Chloride 105 Carbon Dioxide 24 BUN 16 Creatinine 0.73 Calcium 9.3 Liver Function 04/18/23 Range/Units 20:38 Total Bilirubin 0.2 (0.0-1.0) mg/dL AST 18 (5-31) U/L ALT 15 (0-31) U/L Alkaline Phosphatase 64 (39-117) U/L Albumin 4.6 (3.5-5.0) g/dL Imaging CT scan - abdomen: Attestation: I personally reviewed and interpreted this imaging study as follows: (severe constipation, mild thickening [place] descending, no stranding ) Assessment and Plan (1) Constipation by delayed colonic transit: Status: Acute (2) Constipation due to opioid therapy: Status: Acute Plan 1/ Suspect her symptoms are due to severe constipation from opioid use and poor mobility, the thickening on the CT could also be from stool impaction. She has no stranding and inflammatory markers are negative inlc CRP, WCC, albumin She has been off humira and despite the lack of inflammation as mentioned she should resume this as soon as possible PLAN: 1/ Golyte and fleet enemas 2/ Trial of methylnaltrexone SQ whilst in patient, when d/c'ed can be sent on the Po formulation or Movantik 3/ Hold steroid treatment for the moment 4/ check stool lactoferrin 5/ she is going to check with her GI Dr Niko abt her humira Procedures Date of Service Date of Service: 04/19/23
[2023-04-19] MEDS: Fluticasone/Vilanterol 200/25 BLST.W.DEV 1 PUFF INHALE (07:53)
[2023-04-19] MEDS: Tiotropium Bromide 2.5 mcg 1 PUFF/2.5 MCG MIST.INHAL 2 PUFF INHALE (07:53)
[2023-04-19 07:55] VITALS: PULSE 77; RESP 18; O2SAT 94
--- NOTE | 2023-04-19 08:10 | PHA.MEDREC ---
Pharmacy Consult ? Medication Reconciliation Pharmacy has completed the medication reconciliation.
--- NOTE | 2023-04-19 08:45 | P.PNIM_ITS ---
Subjective Subjective Date of Service: 04/19/23 Physical Exam 2 Vital Signs: Vital Signs: Last Vital Signs Temp 97.2 F 04/19/23 07:20 Pulse 77 04/19/23 07:55 Resp 18 04/19/23 07:55 BP 122/67 04/19/23 07:20 Pulse Ox 94 04/19/23 07:20 O2 Del Method Room Air 04/19/23 07:20 BMI result Body Mass Index 29.5 Objective Data Active Medications Acetaminophen (Acetaminophen 325 Mg Tablet) 650 mg PO Q6H PRN PRN Reason: Pain, Mild (Pain Scale 1-3) Acetaminophen/Butalbital/Caffeine (Butalb/Acetamin/Caff 50/325/40 Tablet) 1 tab PO TID PRN PRN Reason: Post dural puncture headache Albuterol Sulfate (Albuterol Sulfate 90 Mcg 8 Gm Inhaler) 2 puff INHALE Q4H PRN PRN Reason: Wheezing Apixaban (Apixaban 5 Mg Tablet) 5 mg PO BID [facility] Diphenhydramine HCl (Diphenhydramine Hcl 50 Mg/Ml Vial) 25 mg IV QID PRN PRN Reason: Nausea Last Admin: 04/19/23 04:14 Dose: 25 mg Documented By: ANH Fluticasone/Vilanterol (Fluticasone/Vilanterol 200/25 Blst.W.Dev) 1 puff INHALE DAILY [facility] Last Admin: 04/19/23 07:53 Dose: 1 puff Documented By: MOE Hydromorphone HCl (Hydromorphone Hcl 1 Mg/Ml Syringe) 1 mg IVPUSH Q6H PRN; Protocol PRN Reason: Pain, Severe (Pain Scale 7-10) Last Admin: 04/19/23 02:33 Dose: 1 mg Documented By: ANH Sodium Chloride (Sodium Chloride 0.45 %) 1,000 mls @ 100 mls/hr IVCONT .Q10H [facility] Last Admin: 04/19/23 02:33 Dose: 100 mls/hr Documented By: ANH Levetiracetam (Levetiracetam Oral Soln 500 Mg/5 Ml) 700 mg PO BID [facility] Melatonin (Melatonin 3 Mg Tablet) 6 mg PO BEDTIME PRN PRN Reason: Insomnia Methylnaltrexone [place] (Methylnaltrexone [place] 8 Mg/0.4 Ml Syringe) 6 mg SUBCUT DAILY [facility] Omeprazole (Omeprazole 20 Mg Capsule.Dr) 20 mg PO DAILY PRN PRN Reason: ACID REFLEX Ondansetron HCl (Ondansetron Hcl 4 Mg/2 Ml Vial) 4 mg IVPUSH Q8H PRN PRN Reason: Nausea and Vomiting Last Admin: 04/19/23 04:10 Dose: 4 mg Documented By: AHN Ondansetron HCl (Ondansetron Hcl 4 Mg/2 Ml Vial) 4 mg IV QID PRN PRN Reason: Nausea Polyethylene Glycol/Electrolytes (Peg 3350/Na Sulf,Bicarb,Cl/Kcl 4,000 Ml Soln.Recon) 4,000 ml PO ONCE ONE Stop: 04/19/23 09:01 Sodium Chloride (0.9 % Sodium Chloride Flush 3 Ml Syringe) 3 ml IVFLUSH QSHIFT [facility] Last Admin: 04/19/23 01:07 Dose: Not Given Documented By: JUAN Non-Admin Reason: IV Running Tiotropium [place] (Tiotropium [place] 2.5 Mcg 1 Puff/2.5 Mcg Mist.Inhal) 2 puff INHALE DAILY [facility] Last Admin: 04/19/23 07:53 Dose: 2 puff Documented By: MOE Labs 04/18/23 20:38 04/18/23 20:38 Labs: Laboratory Results - last 24 hr 04/18/23 20:38 MCV 88.5 MCH 29.6 MCHC 33.5 RDW 12.7 Plt Count 228 MPV 11.2 Absolute Nucleated RBC 0.000 Nucleated RBC % (auto) 0.0 ESR 2 Anion Gap 13 Estim Creat Clear Calc 80.5 Estimated GFR > 60 Random Glucose 110 Calcium 9.3 Total Bilirubin 0.2 AST 18 ALT 15 Alkaline Phosphatase 64 C-Reactive Protein 0.14 Total Protein 7.5 Albumin 4.6 Lipase 14 Beta HCG, Quant 7 Quality Stroke Does the patient have a stroke diagnosis?: No VTE Prior VTE?: Yes VTE Risk Level:: Medical - moderate - high VTE Device Contraindication: Treatment Not Indicated VTE Drug Contraindication: N/A - Med Ordered
--- NOTE | 2023-04-19 09:18 | MHC.CM.PN ---
IMM DELIVERED PATIENT FROM HOME WITH SON, IN THE PROCESS OF SETTING UP [facility] WITH [facility] TO ASSIST W/ ADL'S AMBULATES INDEPENDENTLY MOST TIMES, BUT USES W/C PRN NIGHTLY TPN, SELF MANAGES, THROUGH [facility], RETURN REFERRAL SENT, NIGHT ORDER SELECTOR IS AWARE +HCP LISTED FRIEND JAY, BUT NOT ON FILE AND PT DOES NOT HAVE A COPY, NEW HCP COMPLETED PCP: ERIC HUTTON NP DCP: GOAL IS RETURN HOME VIA [facility]FT, BEGIN [facility] WITH [facility], RESUME TPN THROUGH [facility]
[2023-04-19] MEDS: ondansetron HCL 4 MG/2 ML VIAL IV ×2 (09:53→22:57)
[2023-04-19] MEDS: Apixaban 5 MG TABLET PO ×2 (09:54→21:21)
[2023-04-19] MEDS: levETIRAcetam Oral Soln 500 MG/5 ML 700 MG PO ×2 (09:54→21:21)
[2023-04-19] MEDS: 0.9 % Sodium Chloride Flush 3 ML SYRINGE IVFLUSH ×3 (10:05→19:15)
[2023-04-19 10:07] VITALS: BMI 29.5
--- NOTE | 2023-04-19 10:13 | MHC.CLN ---
RE: CONSULT PT REQUIRES TPN FOR NUTRITION SUPPORT R/T CROHN'S FLAIR AND MAL ABSORPTION RECEIVES HOME TPN NUTRITION PT CURRENTLY NPO; TYPICAL INTAKE MOST MEALS 0-25% TPN ORDERED PER HOME ADMINISTRATION: PROTEIN 70 g; DEXTROSE 200 G; LIPIDS 50 G (X 5 DAYS, NOT ON TUESDAY OR TUESDAY) TPN WITH LIPIDS PROVIDES 1460 KCALS (29 KCALS/KG CMW); 70 G PROTEIN (1.4 G/KG CMW) LABS REVIEWED DISCUSSED WITH PHARMACY RECOMMEND CONTINUE CURRENT HOME TPN ORDERS FOLLOW LYTES, INTAKE, TPN TOLERANCE
[2023-04-19] MEDS: PEG 3350/Na Sulf,Bicarb,Cl/KCL 4,000 ML SOLN.RECON 4000 ML PO (10:33)
[2023-04-19] MEDS: Sodium Phosphate,Mono-Dibasic 133 ML ENEMA PR (10:33)
[2023-04-19] MEDS: Butalb/Acetamin/Caff 50/325/40 TABLET 1 TAB PO (12:36)
--- NOTE | 2023-04-19 14:52 | PM.EVENT ---
Event Note Date of Service: 04/19/23 Event Note: 42 year old female admitted early this morning for suspected Crohns flare. Received dose methylprednisolone in ED. Discussed with Dr. Mota. Inflammatory markers are negative. Colon wall thickening probably r/t constipation 2/2 narcotic use. No further steroids. Recommends fleet enemas, glolytely to facilitate BM. Trial methylnaltrexone SQ while admitted. Can use PO formulation or movantik on discharge for opiate associated constipation. Will check stool lactoferrin. Uses TPN at home, continue. Advance diet to clears as tolreated Outpt follow up with Dr. Pope re: Humira Constipation- -continue bowel regimen -golytely and fleets as above h/o PE/DVT -continue Eliquis Seizure d/o -continue Keppra - seizure precautions mod persistent Asthma -continue baseline inhalers, no acute exacerbation DVT prophylaxis: Eliquis Full code Ongoing inpt stay: intractable abd pain 2/2 severe abd pain requiring aggressive management of constipation, advancement of diet, and expert consultation Time Spent With Patient Time: Total time managing care of this patient today ____ minutes.
[2023-04-19 15:26] VITALS: BP 136/64; PULSE 73; RESP 17; TEMP 36.4; O2SAT 94
[2023-04-19 18:56] VITALS: BP 112/65; PULSE 76; RESP 17; TEMP 36.6; O2SAT 94
[2023-04-19 22:03] LABS: Appearance Urine Clear; Color Urine Yellow; Glucose Urine UA Negative (Negative); Leukocyte Esterase Urine Negative (Negative); Nitrite Urine Negative (Negative); PH 5.5 (5.0-9.0); Specific Gravity - Urine 1.015 (1.005-1.025); Urine Blood Negative (Negative); Urine Ketones Negative (Negative); Urine Protein Negative (Neg-Trace)
[2023-04-19 22:08] LABS: Bacteria Urine None Seen (None Seen); Hyaline Casts Urine 0-2 /LPF (0-2); RBC Urine 0-2 /HPF (0-2); Squamous Epithelial Cell Urine 0-2 /HPF (0-2); WBC Urine 0-5 /HPF (0-5)
[2023-04-20 03:40] VITALS: BP 114/64; PULSE 63; RESP 18; TEMP 36.7; O2SAT 98
[2023-04-20] MEDS: diphenhydrAMINE HCL 50 MG/ML VIAL 25 MG IV ×3 (05:28→18:13)
[2023-04-20] MEDS: ondansetron HCL 4 MG/2 ML VIAL IVPUSH ×2 (05:29→11:44)
[2023-04-20] MEDS: HYDROmorphone HCl 1 MG/ML SYRINGE IVPUSH ×3 (05:29→18:12)
[2023-04-20 05:57] LABS: MANUAL DIFF FLAG NO
[2023-04-20 06:34] LABS: Basophils Percent Auto 0.7 % (0-2); Eosinophils Absolute Auto 0.1 X10*3/uL (0.0-0.4); Eosinophils Percent Auto 1.8 % (0-4); Hematocrit 34.4 % (37.0-47.0); Hemoglobin 11.3 g/dl (12.0-16.0); Imm Gran Abs Auto 0.02 X10*3/uL (0.00-0.03); Imm Gran Pct Auto 0.4 % (0.0-0.4); Lymphocytes Absolute Auto 2.3 X10*3/uL (1.2-4.9); Lymphocytes Percent Auto 40.9 % (20-40); Mean Corpuscular HGB Conc 32.8 g/dl (31.0-35.0); Mean Corpuscular Hemoglobin 29.7 pg (27.0-33.0); Mean Corpuscular Volume 90.3 fL (80.0-98.0); Mean Platelet Volume 11.7 fL (9.4-12.3); Monocytes Absolute Auto 0.4 X10*3/uL (0.1-1.2); Monocytes Percent Auto 7.4 % (2-11); Neutrophils Absolute Auto 2.8 x10*3/uL (2.0-8.3); Neutrophils Percent Auto 48.8 % (45-73); Platelet Count 179 X10*3/uL (160-400); Red Blood Count 3.81 X10*6/uL (4.20-5.50); Red Cell Distribution Width 13.1 % (11.0-16.0); White Blood Count 5.7 X10*3/uL (4.8-10.8)
[2023-04-20 06:35] LABS: Anion Gap 11 (12-20); Blood Urea Nitrogen 16 mg/dL (9-16); Calcium 8.2 mg/dL (8.4-10.2); Carbon Dioxide 29 mmol/L (22-29); Chloride 105 mmol/L (96-108); Creatinine Clr Calc Pharmacy 86.1; Estimated Glomerular Filt Rate > 60; Glucose Random 134 mg/dL (60-115); Magnesium 2.6 mg/dL (1.6-2.6); Phosphorus 3.2 mg/dL (2.7-4.5); Potassium 3.5 mmol/L (3.3-5.1); Sodium 141 mmol/L (135-145)
[2023-04-20 07:05] VITALS: BP 108/57; PULSE 62; RESP 16; TEMP 35.5; O2SAT 96
[2023-04-20] MEDS: Fluticasone/Vilanterol 200/25 BLST.W.DEV 1 PUFF INHALE (07:24)
[2023-04-20] MEDS: Tiotropium Bromide 2.5 mcg 1 PUFF/2.5 MCG MIST.INHAL 2 PUFF INHALE (07:24)
[2023-04-20 07:26] VITALS: PULSE 62; RESP 18; O2SAT 98
[2023-04-20 08:14] LABS: Albumin Level 3.6 g/dL (3.5-5.0)
--- NOTE | 2023-04-20 09:13 | MHC.CLN ---
F/U PT REQUIRES TPN FOR NUTRITION SUPPORT R/T CROHN'S FLAIR AND MALABSORPTION. DIET=CLEAR LIQUIDS. TPN ORDERED PER HOME PARAMETERS: TPN AT 97.9 ML PER HOUR; PROTEIN 70 g; DEXTROSE 200 G; LIPIDS 50 G (X 5 DAYS, NOT ON TUESDAY OR TUESDAY). TPN WITH LIPIDS PROVIDES 1460 KCALS (29 KCALS/KG CMW); 70 G PROTEIN (1.4 G/KG CMW). LABS REVIEWED. DISCUSSED WITH PHARMACY. CONTINUE CURRENT HOME TPN ORDERS. FOLLOW LYTES, INTAKE, TPN TOLERANCE.
[2023-04-20] MEDS: levETIRAcetam Oral Soln 500 MG/5 ML 700 MG PO ×2 (10:47→21:26)
[2023-04-20] MEDS: 0.9 % Sodium Chloride Flush 3 ML SYRINGE IVFLUSH ×3 (10:48→21:25)
[2023-04-20] MEDS: Apixaban 5 MG TABLET PO ×2 (10:48→21:24)
--- NOTE | 2023-04-20 12:27 | MHC.CM.PN ---
EMR REVIEWED. PER MD ROUNDS NOT MEDICALLY CLEARED FOR DC AT THIS TIME. POTENTIAL DC TOMORROW. SENT UPDATE TO [facility]IA [facility]. CM WILL CONTINUE TO FOLLOW.
[2023-04-20 15:44] VITALS: BP 124/58; PULSE 61; RESP 17; TEMP 36.1; O2SAT 96
--- NOTE | 2023-04-20 16:05 | P.PNIM_ITS ---
Subjective Subjective Date of Service: 04/20/23 Interval History: Seen in follow up for abd pain, opiate induced constipation Interval history Incontinent of urine and stool at baseline. Has moved bowels multiple time. Still reporting 8/10 abdominal pain but improved from yesterday. On TPN, reports intermittent tolerance of p.o. at home Review of Systems All other system reviewed and negative Review of Systems: Yes all other systems are reviewed and are negative Physical Exam 2 Vital Signs: Vital Signs: Last Vital Signs Temp 97 F 04/20/23 15:44 Pulse 61 04/20/23 15:44 Resp 17 04/20/23 15:44 BP 124/58 L 04/20/23 15:44 Pulse Ox 96 04/20/23 15:44 O2 Del Method Room Air 04/20/23 15:44 BMI result Body Mass Index 29.5 Constitutional - Awake and Alert, No apparent distress Eyes - PERRLA, EOMI Cardiovascular - S1S2, RRR, No edema Respiratory - Normal lung expansion, Normal respiratory effort, No respiratory distress, CTA bilaterally Gastrointestinal - mild ttp across upper abd. ND; +BS; No rebound or guarding Extremities - no calf tenderness bilaterally, no swelling Skin - Warm/Dry Neurological - Alert & oriented x3 Psychological - Appropriate affect Objective Data Active Medications Acetaminophen (Acetaminophen 325 Mg Tablet) 650 mg PO Q6H PRN PRN Reason: Pain, Mild (Pain Scale 1-3) Acetaminophen/Butalbital/Caffeine (Butalb/Acetamin/Caff 50/325/40 Tablet) 1 tab PO TID PRN PRN Reason: Post dural puncture headache Last Admin: 04/19/23 12:36 Dose: 1 tab Documented By: GWEN Albuterol Sulfate (Albuterol Sulfate 90 Mcg 8 Gm Inhaler) 2 puff INHALE Q4H PRN PRN Reason: Wheezing Apixaban (Apixaban 5 Mg Tablet) 5 mg PO BID [facility] Last Admin: 04/20/23 10:48 Dose: 5 mg Documented By: ALVIN Diphenhydramine HCl (Diphenhydramine Hcl 50 Mg/Ml Vial) 25 mg IV QID PRN PRN Reason: Nausea Last Admin: 04/20/23 11:44 Dose: 25 mg Documented By: ALVIN Fluticasone/Vilanterol (Fluticasone/Vilanterol 200/25 Blst.W.Dev) 1 puff INHALE DAILY [facility] Last Admin: 04/20/23 07:24 Dose: 1 puff Documented By: MOE Hydromorphone HCl (Hydromorphone Hcl 1 Mg/Ml Syringe) 1 mg IVPUSH Q6H PRN; Protocol PRN Reason: Pain, Severe (Pain Scale 7-10) Last Admin: 04/20/23 11:43 Dose: 1 mg Documented By: ALVIN Nutrition (Parenteral) (Parenteral Nutrition) 2,350 mls @ 97.92 mls/hr IV .Q24H ANNA; Protocol Stop: 04/20/23 20:59 Last Admin: 04/19/23 21:30 Dose: 97.92 mls/hr Documented By: BASSEM Nutrition (Parenteral) (Parenteral Nutrition) 2,350 mls @ 97.92 mls/hr IV .Q24H ANNA; Protocol Stop: 04/21/23 20:59 Levetiracetam (Levetiracetam Oral Soln 500 Mg/5 Ml) 700 mg PO BID [facility] Last Admin: 04/20/23 10:47 Dose: 700 mg Documented By: ALVIN Melatonin (Melatonin 3 Mg Tablet) 6 mg PO BEDTIME PRN PRN Reason: Insomnia Methylnaltrexone [place] (Methylnaltrexone [place] 8 Mg/0.4 Ml Syringe) 6 mg SUBCUT DAILY [facility] Last Admin: 04/20/23 12:15 Dose: 6 mg Documented By: ALVIN Omeprazole (Omeprazole 20 Mg Capsule.Dr) 20 mg PO DAILY PRN PRN Reason: ACID REFLEX Ondansetron HCl (Ondansetron Hcl 4 Mg/2 Ml Vial) 4 mg IVPUSH Q8H PRN PRN Reason: Nausea and Vomiting Last Admin: 04/20/23 11:44 Dose: 4 mg Documented By: ALVIN Ondansetron HCl (Ondansetron Hcl 4 Mg/2 Ml Vial) 4 mg IV QID PRN PRN Reason: Nausea Last Admin: 04/19/23 22:57 Dose: 4 mg Documented By: PO Pharmacy Consult (Consult Rx Parenteral Nutrition Ordering) 1 each MISCELLANE DAILY PRN PRN Reason: Consult order Sodium Chloride (0.9 % Sodium Chloride Flush 3 Ml Syringe) 3 ml IVFLUSH QSHIFT [facility] Last Admin: 04/20/23 10:48 Dose: 3 ml Documented By: ALVIN Tiotropium [place] (Tiotropium [place] 2.5 Mcg 1 Puff/2.5 Mcg Mist.Inhal) 2 puff INHALE DAILY [facility] Last Admin: 04/20/23 07:24 Dose: 2 puff Documented By: MOE Labs 04/20/23 05:06 04/20/23 05:06 Labs: Laboratory Results - last 24 hr 04/19/23 04/20/23 Unknown 05:06 MCV 90.3 MCH 29.7 MCHC 32.8 RDW 13.1 Plt Count 179 MPV 11.7 Immature Gran % (Auto) 0.4 Neut % (Auto) 48.8 Lymph % (Auto) 40.9 H Branch % (Auto) 7.4 Eos % (Auto) 1.8 Baso % (Auto) 0.7 Lymph # (Auto) 2.3 Branch # (Auto) 0.4 Eos # (Auto) 0.1 Baso # (Auto) 0.0 Abs Immat Gran (auto) 0.02 Absolute Neuts (auto) 2.8 Absolute Nucleated RBC 0.000 Nucleated RBC % (auto) 0.0 Anion Gap 11 L Estim Creat Clear Calc 86.1 Estimated GFR > 60 Random Glucose 134 H Calcium 8.2 L D Phosphorus 3.2 Magnesium 2.6 Albumin 3.6 Urine Color Yellow Urine Appearance Clear Urine pH 5.5 Ur Specific [place] 1.015 Urine Protein Negative Urine Glucose (UA) Negative Urine Ketones Negative Urine Blood Negative Urine Nitrite Negative Ur Leukocyte Esterase Negative Urine RBC 0-2 Urine WBC 0-5 Ur Squamous Epith Cells 0-2 Urine Bacteria None Seen Hyaline Casts 0-2 Assessment and Plan (1) Constipation due to opioid therapy: Status: Acute Plan 46-year-old female with complex medical history including Crohn's disease, Behcets disease, opioid dependence, others admitted for severe abdominal pain thought to be secondary to Crohn's disease but more likely related to opiate induced constipation. Has been moving bowels well and is feeling somewhat better but still with significant abdominal pain. # severe opiate induced constipation -abdominal pain improving, moving bowels well -continue bowel regimen, enemas p.r.n. -continue the methylnaltrexone. Can continue on PO formation or start movantik on d/c (if insurance allows) -advanced to full liquid diet, continue TPN -Outpt follow up with Dr. Pope in GI #Crohns -no acute flare. CT with bowel thickening likely 2/2 constipation, not crohns per GI. Inflammatory markers normal -stool lactoferrin pending -appreciate GI input -outpt follow up with GI as above re resuming humira #h/o PE/DVT -continue Eliquis #Seizure d/o -continue Keppra - seizure precautions #mod persistent Asthma -continue baseline inhalers, no acute exacerbation DVT prophylaxis: Eliquis Full code Ongoing inpt stay: intractable abd pain 2/2 severe abd pain requiring aggressive management of constipation, advancement of diet, and expert consultation. Probable d/c tomorrow Quality Stroke Does the patient have a stroke diagnosis?: No VTE Prior VTE?: Yes VTE Risk Level:: Medical - moderate - high VTE Device Contraindication: Treatment Not Indicated VTE Drug Contraindication: N/A - Med Ordered
[2023-04-20] MEDS: ondansetron HCL 4 MG/2 ML VIAL IV (18:13)
--- NOTE | 2023-04-20 18:54 | PC.NURSE ---
Medication Relistor Subq given late at 12:15 due to the fact that it is not kept on the floor and I had to reach out to pharmacy who brought it to the floor.
[2023-04-20 19:24] VITALS: BP 128/62; PULSE 61; RESP 18; TEMP 36.2; O2SAT 97
[2023-04-20] MEDS: Acetaminophen 325 MG TABLET 650 MG PO (21:24)
[2023-04-20] MEDS: Butalb/Acetamin/Caff 50/325/40 TABLET 1 TAB PO (21:24)
[2023-04-21] MEDS: ondansetron HCL 4 MG/2 ML VIAL IVPUSH (03:10)
[2023-04-21] MEDS: HYDROmorphone HCl 1 MG/ML SYRINGE IVPUSH ×2 (03:11→09:21)
[2023-04-21] MEDS: diphenhydrAMINE HCL 50 MG/ML VIAL 25 MG IV ×2 (03:11→09:20)
[2023-04-21 04:00] VITALS: BP 110/63; PULSE 60; RESP 18; TEMP 36.4; O2SAT 96
[2023-04-21] MEDS: Butalb/Acetamin/Caff 50/325/40 TABLET 1 TAB PO (06:11)
[2023-04-21 06:25] LABS: Anion Gap 11 (12-20); Blood Urea Nitrogen 14 mg/dL (9-16); Calcium 8.5 mg/dL (8.4-10.2); Carbon Dioxide 28 mmol/L (22-29); Chloride 104 mmol/L (96-108); Creatinine Clr Calc Pharmacy 92.8; Estimated Glomerular Filt Rate > 60; Glucose Random 118 mg/dL (60-115); Magnesium 2.6 mg/dL (1.6-2.6); Phosphorus 2.9 mg/dL (2.7-4.5); Potassium 3.9 mmol/L (3.3-5.1); Sodium 139 mmol/L (135-145)
[2023-04-21] MEDS: Fluticasone/Vilanterol 200/25 BLST.W.DEV 1 PUFF INHALE (07:55)
[2023-04-21] MEDS: Tiotropium Bromide 2.5 mcg 1 PUFF/2.5 MCG MIST.INHAL 2 PUFF INHALE (07:55)
[2023-04-21 07:56] VITALS: PULSE 55; RESP 18; O2SAT 98
[2023-04-21 08:00] VITALS: BP 116/60; PULSE 60; RESP 17; TEMP 36.1; O2SAT 97
--- NOTE | 2023-04-21 08:39 | MHC.CM.PN ---
IMM 04/19/23 Discharge is anticipated today, per MD rounds yesterday. A clinical update has been sent to [facility]. The TPN formula has been reviewed by the Dietitian. No changes required to the formula. DP home resume TPN w [facility] home infusion. New [employer] services per pt report. Patient will need assist with transportation.
[2023-04-21] MEDS: levETIRAcetam Oral Soln 500 MG/5 ML 700 MG PO (08:59)
[2023-04-21] MEDS: Apixaban 5 MG TABLET PO (08:59)
[2023-04-21] MEDS: 0.9 % Sodium Chloride Flush 3 ML SYRINGE IVFLUSH (08:59)
[2023-04-21] MEDS: ondansetron HCL 4 MG/2 ML VIAL IV (09:21)
[2023-04-21] MEDS: Acetaminophen 325 MG TABLET 650 MG PO (10:47)
--- NOTE | 2023-04-21 11:54 | MHC.CM.PN ---
IMM 04/19/23 Patient is discharged to home today. She will continue TPN at home. No changes have been made to the TPN orders. [facility] infusion Co has been contacted via [employer] with clinical information. T/W spoke with Ehsan, Pharmacist @ [facility]. He has been notified that the patient is discharged today. The last delivery was made 04/18/23. The patient has 1 weeks worth of TPN in the home. DP home with resumption of TPN, via [facility].
--- NOTE | 2023-04-21 12:45 | P.DS_ITS ---
DS: Providers Provider Date of Service: 04/21/23 Date of admission: 04/18/23 23:44 Date of discharge: 04/21/23 Primary care physician: Lalitha Sherman NP Consults: 04/19/23 01:44 Consult to Gastroenterology Routine Consulting Provider: Leisa Mota Reason for consultation: crohns flare Has provider been notified: No Attending physician on discharge: Elieser Recio Discharging clinician: Laura Cardona DS: Diagnosis Discharge Diagnosis (1) Constipation due to opioid therapy: Status: Acute DS: Summary Hospital Course Hospital Course: From H&P on the day of admission 42-year-old female with pertinent history of chronic pain syndrome, seizure disorder, DVT/PE on Eliquis, asthma , behcets, crohn's who is prsenting with acute abdominal pain. She reports sudden onset at around 2:45 pm, pain is localized to lower abdominal area, severe, 10/10, associated with nasuea but no vomitting, no diarrhea and no fever. ED work: normal WBC, CT show : severe constipation , Diffuse mural thickening involving the entire descending colon and proximal ascending colon. This is most likely inflammatory or infectious colitis. Given IV steroid for presumed chrohns flare severe opiate induced constipation abdominal pain improving, moving bowels well. treated with subq methylnaltrexone. will start movantik on d/c - may need prior authorization. This was discussed with patient, will likely need to obtain from GI or PCP. perscription sent but recommend to continue regular bowel regimine for now until able to obtain movantik. And will need follow up with Dr. Pope her primary GI. Crohns no acute flare. CT with bowel thickening likely 2/2 constipation, not crohns per GI. Inflammatory markers normal. stool lactoferrin pending. outpt follow up with GI as above re: resuming humira Time Attestation Discharge coordination time: Greater than 30 minutes Quality: Safe Use of Opioids Does Pt have an Active Cancer Diagnosis on the Problem List?: No Quality: Stroke Does the patient have a stroke diagnosis?: No Physical Exam Vital Signs: Vital Signs: Last Vital Signs Temp 96.9 F 04/21/23 08:00 Pulse 60 04/21/23 08:00 Resp 17 04/21/23 08:00 BP 116/60 04/21/23 08:00 Pulse Ox 97 04/21/23 08:00 O2 Del Method Room Air 04/21/23 08:00 BMI result Body Mass Index 29.5 Const: General: cooperative, comfortable, no acute distress, alert and awake Nutritional Appearance: average body habitus Orientation/consciousness: patient oriented x3 Resp: Effort & Inspection: normal respiratory effort GI: Inspection: No distended Palpation (GI): Soft to palpation Neuro: General: patient oriented x3 and moves all extremities DS: Data Data Completed and Pending Completed studies during hospitalization [Text1]: Procedures Introduction of Other Therapeutic Substance into Spinal Canal, Percutaneous Approach (02/10/23) Introduction of Remdesivir Anti-infective into Peripheral Vein, Percutaneous Approach, Portal [employer] (08/17/21) Labs on day of discharge: Laboratory Results - last 24 hr 04/21/23 05:20 Hold Purple Top SEE NOTE Sodium 139 Potassium 3.9 Chloride 104 Carbon Dioxide 28 Anion Gap 11 L BUN 14 Creatinine 0.64 Estim Creat Clear Calc 92.8 Estimated GFR > 60 Random Glucose 118 H Calcium 8.5 Phosphorus 2.9 Magnesium 2.6 Discharge Plan Discharge Anticipated Discharge Date/Time: 04/21/23 12:35 Patient Disposition: Home, Self-Care Discharge Diagnosis: constipation Referrals: Lalitha Sherman NP [Primary Care Provider] - 1 Week Discharge Medications: New Movantik 12.5 mg tablet 12.5 mg PO DAILY 30 Days Qty: 30 0RF Rx Instructions: must be taken on empty stomach; no food 1 hr after or 2-3 hrs before dose Continued hbodixfxsl-myplnqzsqgjyr-ncsh [Fioricet] 50-300-40 mg capsule 1 cap PO TID PRN (Reason: Post dural puncture headache) 10 Days Qty: 30 0RF albuterol sulfate 90 mcg/actuation Hfa Aerosol Inhaler 2 puff INHALATION Q4H PRN (Reason: Wheezing) Incruse Ellipta 62.5 mcg/actuation Blister With Device 1 inh INHALATION DAILY fluticasone furoate-vilanterol [Breo Ellipta] 200-25 mcg/dose Blister With Device 1 inh INHALATION Q24H diphenhydramine HCl 50 mg/mL solution 25 mg IV QID PRN (Reason: Nausea) ondansetron HCl (PF) 4 mg/2 mL solution 4 mg IV QID PRN (Reason: Nausea) promethazine 25 mg Tablet 25 mg PO QID PRN (Reason: Nausea And Vomiting) levetiracetam [Keppra] 100 mg/mL Solution 700 mg PO BID pantoprazole 40 mg tablet,delayed release (DR/EC) 40 mg PO DAILY PRN (Reason: ACID REFLEX) Eliquis 5 mg tablet 5 mg PO BID Qty: 60 0RF hydromorphone 4 mg tablet 4 mg PO BID PRN (Reason: severe pain (scale score 7-10)) 30 Days Qty: 60 0RF Rx Instructions: Partial fill per patient's request only Discharge Orders: Discharge Order (Routine); Ordered 04/21/23 Ordered By: Laura Cardona Activity on Discharge: As tolerated Stand Alone Forms: Patient Portal Discharge page Care Plan Goals: see below Health Concerns: opiate related constipation Plan of Treatment: call to schedule follow up appointment with your primary GI provider at [facility] [place], [place] curt woodruff - may require prior authorization. in the mean time keep taking your normal bowel regimen Assessment: see discharge summary
== END 2023-04-21 15:34 | disposition home or self-care (01) | DRG 392 ==
LOC: HO.ED 04-19 00:06 → HO.EDOVER 04-19 00:24 → HO.S3 04-19 00:40
PROVIDERS: Physician Assistant; Admitting Provider Internal Medicine; Emergency Provider Emergency Medicine; PCP Nurse Practitioner Family; Visit Provider Physician Assistant Medical
DX: K59.03 Drug induced constipation (principal); K50.10 Crohn's disease of large intestine without complications; M35.2 Behcet's disease; T40.2X5A Adverse effect of other opioids, initial encounter; G40.909 Epilepsy, unspecified, not intractable, without status epilepticus; K59.01 Slow transit constipation; G89.4 Chronic pain syndrome; J45.40 Moderate persistent asthma, uncomplicated; Z86.711 Personal history of pulmonary embolism; Z86.718 Personal history of other venous thrombosis and embolism; Z97.8 Presence of other specified devices; Z79.01 Long term (current) use of anticoagulants; Z79.51 Long term (current) use of inhaled steroids; Z79.899 Other long term (current) drug therapy
CPT/HCPCS: 36415; 74177; 80048; 80053; 81001; 82040; 83690; 83735; 84100; 84702; 85025; 85027; 85652; 86140; 94640; 99285; J1170; J1200; J2212; J2405; J2930; Q9967

== ENCOUNTER → 2023-04-18 23:44 | Outpatient (BNV) | payer MEDICARE, MEDICAID, SELFPAY | PROVIDERS: Admitting Provider Internal Medicine; Emergency Provider Emergency Medicine; PCP Nurse Practitioner Family; Visit Provider Physician Assistant | DX: K50.919 Crohn's disease, unspecified, with unspecified complications (principal); G89.29 Other chronic pain | CPT/HCPCS: 99223; 99232; 99239; 99499 ==

== ENCOUNTER → 2023-04-18 23:44 | Outpatient (BNV) | payer MEDICARE, SELFPAY | PROVIDERS: Admitting Provider Internal Medicine; Emergency Provider Emergency Medicine; PCP Nurse Practitioner Family; Visit Provider Internal Medicine Gastroenterology | DX: K59.01 Slow transit constipation (principal); K59.03 Drug induced constipation; T40.2X5A Adverse effect of other opioids, initial encounter | CPT/HCPCS: 99223 ==

== ENCOUNTER 2023-04-28 10:27 | Outpatient (AMB) | payer MEDICARE, MEDICAID, SELFPAY ==
--- NOTE | 2023-04-28 10:37 | A.OFFVIS_ITS ---
Intake Vital Signs 04/28/23 11:28 Height 4 ft 11 in Weight 140 lb 6 oz BMI 28.3 BP 124/68 Blood Pressure Location Lt brachial Position Sitting Respiration 16 Pulse 95 Pulse Source Pulse Oximeter Pulse Oximetry (%) 97 Oxygen Delivery Method Room Air Intake Visit Reasons: ITDD REFILL/PILL COUNT/VMB Full Intake Note: Patient comes in for pain pump medication refill and pill count to Hydromorphone 4mg tablets. She presented with 52 tablets and should have 44 tablets. Also, had another pill bottle from 03/21/2023. Which she presented with 19 tablets and should have 0 tablets. She took last this morning at 8 am. Patient reports pain level today of 5/10. Both pill bottles were combined Allergies ciprofloxacin [Cipro] Allergy (Unknown, Verified 03/31/23 10:52) Hives levofloxacin [Levaquin] Allergy (Unknown, Verified 03/31/23 10:52) Hives metoclopramide [Reglan] Allergy (Unknown, Verified 03/31/23 10:52) Hives ondansetron [Zofran] Allergy (Unknown, Verified 03/31/23 10:52) Itching penicillin V Allergy (Unknown, Verified 03/31/23 10:52) Hives prochlorperazine [From Compazine] Allergy (Unknown, Verified 03/31/23 10:52) Shortness of Breath Sulfa (Sulfonamide Antibiotics) Allergy (Unknown, Verified 03/31/23 10:52) Hives thalidomide [From Thalomid] Allergy (Unknown, Verified 03/31/23 10:52) Rash haloperidol [From Haldol] Allergy (Verified 03/31/23 10:52) Itching HPI HPI Comments History of Present Illness Details Brooklyn in the office today for the pain pump refill and oral medication count. She presented today with great excess of the hydromorphoe pills her pill count is correct , I will send her new batch of the medication with the advance date 1 day later than she is due which is 05/21/2023. Pump refill is as below, I increased a base rate of bupivacaine since she is not using PTM device as much as she should. She reports her headache is getting slightly better. She reports headache depend ofn whether she is spending the entire date uprite or if she has a chance to get recumbent and rest and then her headache is less. If the headache will not stop second EBP could be considered. Her insurance is denying fioricet and even administrative samuel supported this decision. so I am prescribing her generic version of fioriset with on line coupons. After the administration of the bolus dose spread out in time over the 40 minutes she reported no longer dizziness and lightheadedness. She already reports that intrathecal bupivacaine PTM does help her pain better than hydromorphone oral. Her postoperative period got complicated by postdural puncture headache. She went to ER with severe positional headache, nausea and vomiting on 02/13/23 where she was seen by me and recommended to try a conservative treatment of the headache mainly because of the difficulty with vascular access and therefore difficulty with performing epidural blood patch (She has a h/o 27 left and right supclavian placed portocaths for the administration of TPN and she has IVC portocath through which she receives Her TPN). Unfortunately conservative treatment was not successful and she went for epidural blood patch with right radial a-line placement and sterile blood obtained in the amount of 22 mls from the a-line and injected into the left L1- L2 interlaminar epidural space with contrast visualization of the intrathecal catheter which enters the intrathecal space at the right side of the L1- L2 intrathecal space. After blood patch her headache improved however today she came and reported that moderate positional headache returned however no nausea and vomiting. I again recommended conservative management: continual bed rest, minimal ambulation, caffeinated bevereges and fioricet prn. Pump refill and dose adjustment is as below Prior: Brooklyn is 41 years old female who is suffering from multiple medical conditions including Bencet disease, Crohn's disease, she is immunocompromised.? Her pain involves chronic abdominal pain in lower back pain.? She also has a chronic pelvic pain.? She was under might exacerbation on chronic oral opioid therapy for 3 years.? She was approved by psychological evaluation in the past for the neuromodulation.. [facility] Medical History Crohn's disease Chronic, continuous use of opioids Immunosuppression Chronic pain Pulmonary emboli Absence seizure disorder DVT (deep venous thrombosis) Pyloric stenosis Asthma Common variable immunodeficiency Spondylolisthesis, lumbar region Spondylosis of lumbar region without myelopathy or radiculopathy Abdominal pain, chronic, generalized Gastroparesis Spontaneous pneumothorax Abdominal pain Chronic pain syndrome Cervicalgia Low back pain Crohn's disease Behcet's disease Surgical History History of hernia surgery Family History Father Hairy cell leukemia Social History Household Members: Children Household Members Other:: son Housing: Condominium Do you presently have visiting nurse or other home services: No Alcohol intake: never Patient Tobacco Use Status: Never used Tobacco Advance Directives Date on File: 03/12/21 service: No Current occupational status: unemployed Review of Systems Const All systems reviewed & are unremarkable except as noted in HPI and below Physical Exam Vital Signs: Last Vital Signs Pulse 95 04/28/23 11:28 Resp 16 04/28/23 11:28 BP 124/68 04/28/23 11:28 Pulse Ox 97 04/28/23 11:28 Oxygen Delivery Method Room Air 04/28/23 11:28 BMI result Body Mass Index 28.3 Const General: cooperative, no acute distress and alert Orientation/consciousness: patient oriented x3 HEENT Head: Yes normocephalic and Yes atraumatic Ears: hearing grossly normal bilaterally Eyes General: appearance normal, both eyes and all related structures Alignment and Position: alignment normal and position normal Periorbital: periorbital findings normal Eyelids: Yes eyelids normal Pupils: Equal, round and reactive pupils present, pupils equal and not dilated EOM: EOMs intact bilaterally Direct Ophthalmoscopy: no photophobia Neck Neck: Yes normal visual inspection and Yes no JVD Resp Effort & Inspection: normal respiratory effort, able to speak in complete sentences and no audible wheezes Cardio Jugular venous distension: no JVD GI Inspection: Yes incision and Yes scar Back/Spine/Pelvis Cervical Spine: normal cervical lordosis Thoracic/Lumbar Spine: thoracic and lumbar spine normal to inspection Neuro General: patient oriented x3, gait normal and moves all extremities Cranial nerves: Yes Equal, round and reactive pupils present Assessment & Plan Assessment & Plan (1) Cervicalgia: Code(s): M54.2 - Cervicalgia Plan: (2) Behcet's disease: Code(s): M35.2 - Behcet's disease Plan: (3) Crohn's disease: Code(s): K50.90 - Crohn's disease, unspecified, without complications Qualifiers: Digestive disease complication type: other complication Gastrointestina l tract location: unspecified location Qualified Code(s): K50.918 - Crohn's disease, unspecified, with other complication (4) Low back pain: Code(s): M54.5 - Low back pain (5) Chronic pain syndrome: Code(s): G89.4 - Chronic pain syndrome (6) Chronic, continuous use of opioids: Code(s): F11.90 - Opioid use, unspecified, uncomplicated (7) Chronic abdominal pain: Code(s): R10.9 - Unspecified abdominal pain; G89.29 - Other chronic pain Plan: Intrathecal pump refill ? Intrathecal pump refill. THE PATIENT CAME TODAY IN the office FOR THE CHANGE OF THE MEDICATION IN her PAIN PUMP. The name and date of were verified and informed consent was obtained for the procedure. The pump was interrogated and the residual amount of fluid was found to be 8.0 mL. SHE WAS POSITIONED prone on the bed AND THE AREA OF THE INTRATHECAL PUMP WAS PREPPED WITH CHLORAPREP. The fenestrated drape was sterilely applied over the area of the pump. Sterile gloves were worn and of the aspiration system was assembled containing 2 in 22 gauge noncoring needle, the needle was connected to extension tubing which was connected to the 20 cc sterile syringe. The pain pump was palpated under the skin in the patient's right buttock area. The needle was inserted through the skin and the central plug of the pain pump and fluid was aspirated. The clear fluid was going into the syringe the total amount of the fluid was 7.8 mL .. After that a new batch? of medication was obtained which was containing bupivacaine in concentration 14 per ml. The admixture was made in 20 cc syringe prepared by [facility] compounding pharmacy. The syringe was connected to the bacterial filter, and then connected to the extension tubing. After that the medication in the syringe was slowly instilled into the pump with aspirations at 15 and 5 cc joiner.? The pump was reprogrammed for the doses of 1.4 mg of bupivacaine the day and 1.9 mg of bupivacaine every 4 hours up to 4 administrations a day. (8) Postdural puncture headache: Code(s): G97.1 - Other reaction to spinal and lumbar puncture Plan: Her headache is milder now she reports /10.. She reports that when she is spending more time of the day in vertical position and active the pain becomes more severe. She reports moderate help from Fioricet. EBP will be discussed next time she is in the office for the pill count and meds refill. (9) Crohn's disease: Code(s): K50.90 - Crohn's disease, unspecified, without complications (10) Immunosuppression: Code(s): D84.9 - Immunodeficiency, unspecified (11) Spondylolisthesis, lumbar region: Code(s): M43.16 - Spondylolisthesis, lumbar region Plan: (12) Abdominal pain: Code(s): R10.9 - Unspecified abdominal pain Qualifiers: Abdominal location: lower abdomen, unspecified Qualified Code(s): R10.30 - Lower abdominal pain, unspecified Plan: Plan Coding Level of Care Code Est Pt Level 4 (01343) Procedure Only Diagnoses Cervicalgia M54.2 Behcet's disease M35.2 Crohn's disease K50.918 Digestive disease complication type: other complication Gastrointestinal tract location: unspecified location Low back pain M54.5 Chronic pain syndrome G89.4 Chronic, continuous use of opioids F11.90 Chronic abdominal pain R10.9; G89.29 Postdural puncture headache G97.1 Immunosuppression D84.9 Spondylolisthesis, lumbar region M43.16 Lower abdominal pain R10.30 Abdominal location: lower abdomen, unspecified
[2023-04-28 11:28] VITALS: BP 124/68; PULSE 95; RESP 16; O2SAT 97; BMI 28.3
== END 2023-04-28 11:07 | disposition home or self-care (01) ==
PROVIDERS: PCP Nurse Practitioner Family; Visit Provider Anesthesiology
DX: G89.4 Chronic pain syndrome (principal); M54.2 Cervicalgia; M35.2 Behcet's disease; Z79.891 Long term (current) use of opiate analgesic; Z45.1 Encounter for adjustment and management of infusion pump
CPT/HCPCS: 62370; 99214

== ENCOUNTER → 2023-04-28 10:27 | Outpatient (BNVA) | payer MEDICARE, MEDICAID, SELFPAY | PROVIDERS: PCP Nurse Practitioner Family; Visit Provider Anesthesiology | DX: Z45.89 Encounter for adjustment and management of other implanted devices (principal); Z51.81 Encounter for therapeutic drug level monitoring; M54.2 Cervicalgia; M35.2 Behcet's disease; M54.50 Low back pain, unspecified; M43.16 Spondylolisthesis, lumbar region; K50.918 Crohn's disease, unspecified, with other complication; G89.29 Other chronic pain; G97.1 Other reaction to spinal and lumbar puncture; D84.9 Immunodeficiency, unspecified; R10.30 Lower abdominal pain, unspecified | CPT/HCPCS: 62370; 99212 ==

== ENCOUNTER 2023-05-26 09:58 | Outpatient (AMB) | payer MEDICARE, MEDICAID, SELFPAY ==
[2023-05-26 11:08] VITALS: BP 130/70; PULSE 76; RESP 16; O2SAT 98; BMI 28.3
--- NOTE | 2023-05-26 11:08 | MHC.OFFVIS ---
Intake Vital Signs 05/26/23 11:08 Height 4 ft 11 in Weight 140 lb BMI 28.3 BP 130/70 Blood Pressure Location Lt brachial Position Sitting Respiration 16 Pulse 76 Pulse Source Pulse Oximeter Pulse Oximetry (%) 98 Oxygen Delivery Method Room Air Intake Visit Reasons: ITDD Refill & Pill Count/ok per Dr. Pedroza/Lvm Allergies ciprofloxacin [Cipro] Allergy (Unknown, Verified 05/26/23 11:07) Hives levofloxacin [Levaquin] Allergy (Unknown, Verified 05/26/23 11:07) Hives metoclopramide [Reglan] Allergy (Unknown, Verified 05/26/23 11:07) Hives ondansetron [Zofran] Allergy (Unknown, Verified 05/26/23 11:07) Itching penicillin V Allergy (Unknown, Verified 05/26/23 11:07) Hives prochlorperazine [From Compazine] Allergy (Unknown, Verified 05/26/23 11:07) Shortness of Breath Sulfa (Sulfonamide Antibiotics) Allergy (Unknown, Verified 05/26/23 11:07) Hives thalidomide [From Thalomid] Allergy (Unknown, Verified 05/26/23 11:07) Rash haloperidol [From Haldol] Allergy (Verified 05/26/23 11:07) Itching HPI HPI Comments History of Present Illness Details Brooklyn in the office today for the pain pump refill and oral medication count. She presented today with great excess of the hydromorphoe pills her pill count is correct , I will send her new batch of the medication with the advance date 3 days later than she is due which is 06/24/2023 Pump refill is as below, the doses left the same. The concentration is the same. She reports her headache is getting slightly better. She reports headache depends whether she is spending the entire date uprite or if she has a chance to get recumbent and rest and then her headache is less. If the headache will not stop second EBP could be considered. Her insurance is denying fioricet and even administrative samuel supported this decision. so I am prescribing her generic version of fioriset with on-line coupon again. After the administration of the bolus dose spread out in time over the 40 minutes she reported no longer dizziness and lightheadedness. She already reports that intrathecal bupivacaine PTM does help her pain better than hydromorphone oral. Her postoperative period got complicated by postdural puncture headache. She went to ER with severe positional headache, nausea and vomiting on 02/13/23 where she was seen by me and recommended to try a conservative treatment of the headache mainly because of the difficulty with vascular access and therefore difficulty with performing epidural blood patch (She has a h/o 27 left and right supclavian placed portocaths for the administration of TPN and she has IVC portocath through which she receives Her TPN). Unfortunately conservative treatment was not successful and she went for epidural blood patch with right radial a-line placement and sterile blood obtained in the amount of 22 mls from the a-line and injected into the left L1- L2 interlaminar epidural space with contrast visualization of the intrathecal catheter which enters the intrathecal space at the right side of the L1- L2 intrathecal space. After blood patch her headache improved however today she came and reported that moderate positional headache returned however no nausea and vomiting. I again recommended conservative management: continual bed rest, minimal ambulation, caffeinated bevereges and fioricet prn. Prior: Brooklyn is 41 years old female who is suffering from multiple medical conditions including Bencet disease, Crohn's disease, she is immunocompromised.? Her pain involves chronic abdominal pain in lower back pain.? She also has a chronic pelvic pain.? She was under might exacerbation on chronic oral opioid therapy for 3 years.? She was approved by psychological evaluation in the past for the neuromodulation.. [facility] Medical History Crohn's disease Chronic, continuous use of opioids Immunosuppression Chronic pain Pulmonary emboli Absence seizure disorder DVT (deep venous thrombosis) Pyloric stenosis Asthma Common variable immunodeficiency Spondylolisthesis, lumbar region Spondylosis of lumbar region without myelopathy or radiculopathy Abdominal pain, chronic, generalized Gastroparesis Spontaneous pneumothorax Abdominal pain Chronic pain syndrome Cervicalgia Low back pain Crohn's disease Behcet's disease Surgical History History of hernia surgery Family History Father Hairy cell leukemia Social History Household Members: Children Household Members Other:: son Housing: Condominium Do you presently have visiting nurse or other home services: No Alcohol intake: never Patient Tobacco Use Status: Never used Tobacco Advance Directives Date on File: 03/12/21 service: No Current occupational status: unemployed Review of Systems Const All systems reviewed & are unremarkable except as noted in HPI and below Physical Exam Vital Signs: Last Vital Signs Pulse 76 05/26/23 11:08 Resp 16 05/26/23 11:08 BP 130/70 05/26/23 11:08 Pulse Ox 98 05/26/23 11:08 Oxygen Delivery Method Room Air 05/26/23 11:08 BMI result Body Mass Index 28.3 Const General: cooperative, no acute distress and alert Orientation/consciousness: patient oriented x3 HEENT Head: Yes normocephalic and Yes atraumatic Ears: hearing grossly normal bilaterally Eyes General: appearance normal, both eyes and all related structures Alignment and Position: alignment normal and position normal Periorbital: periorbital findings normal Eyelids: Yes eyelids normal Pupils: Equal, round and reactive pupils present, pupils equal and not dilated EOM: EOMs intact bilaterally Direct Ophthalmoscopy: no photophobia Neck Neck: Yes normal visual inspection and Yes no JVD Resp Effort & Inspection: normal respiratory effort, able to speak in complete sentences and no audible wheezes Cardio Jugular venous distension: no JVD GI Inspection: Yes incision and Yes scar Back/Spine/Pelvis Cervical Spine: normal cervical lordosis Thoracic/Lumbar Spine: thoracic and lumbar spine normal to inspection Neuro General: patient oriented x3, gait normal and moves all extremities Cranial nerves: Yes Equal, round and reactive pupils present Assessment & Plan Assessment & Plan (1) Cervicalgia: Code(s): M54.2 - Cervicalgia Plan: (2) Behcet's disease: Code(s): M35.2 - Behcet's disease Plan: (3) Crohn's disease: Code(s): K50.90 - Crohn's disease, unspecified, without complications Qualifiers: Digestive disease complication type: other complication Gastrointestinal tract location: unspecified location Qualified Code(s): K50.918 - Crohn's disease, unspecified, with other complication (4) Low back pain: Code(s): M54.5 - Low back pain (5) Chronic pain syndrome: Code(s): G89.4 - Chronic pain syndrome (6) Chronic, continuous use of opioids: Code(s): F11.90 - Opioid use, unspecified, uncomplicated (7) Chronic abdominal pain: Code(s): R10.9 - Unspecified abdominal pain; G89.29 - Other chronic pain Plan: Intrathecal pump refill ? Intrathecal pump refill. THE PATIENT CAME TODAY IN the office FOR THE CHANGE OF THE MEDICATION IN her PAIN PUMP. The name and date of were verified and informed consent was obtained for the procedure. The pump was interrogated and the residual amount of fluid was found to be 5.8 mL. SHE WAS POSITIONED prone on the bed AND THE AREA OF THE INTRATHECAL PUMP WAS PREPPED WITH CHLORAPREP. The fenestrated drape was sterilely applied over the area of the pump. Sterile gloves were worn and of the aspiration system was assembled containing 2 in 22 gauge noncoring needle, the needle was connected to extension tubing which was connected to the 20 cc sterile syringe. The pain pump was palpated under the skin in the patient's right buttock area. The needle was inserted through the skin and the central plug of the pain pump and fluid was aspirated. The clear fluid was going into the syringe the total amount of the fluid was 5.3 mL .. After that a new batch? of medication was obtained which was containing bupivacaine in concentration 14 per ml. The admixture was made in 20 cc syringe prepared by [facility] compounding pharmacy. The syringe was connected to the bacterial filter, and then connected to the extension tubing. After that the medication in the syringe was slowly instilled into the pump with aspirations at 15 and 5 cc joiner.? The pump was reprogrammed for the doses of 1.4 mg of bupivacaine the day and 1.9 mg of bupivacaine every 4 hours up to 4 administrations a day. (8) Postdural puncture headache: Code(s): G97.1 - Other reaction to spinal and lumbar puncture Plan: She reports again headache slightly aggravated. I prescribed her Fioricet as below. The pump doses remain the same. The next appointment will be scheduled in 1 month for the pill count and the pump refill. She presents today with big excess of the opioid medications. I will delay the refill of her medication until 06/24/2023. Epidural bilat that she was discussed today. She is reluctant to go for the procedure. I am not very eager to do it as well. If we agree to go for the procedure I think CT scan of the lumbar spine would be helpful to establish possible leak and collection of the CSF outside of the intrathecal space. Possibility exist to perform myelogram through existing channel of the intrathecal catheter. (9) Crohn's disease: Code(s): K50.90 - Crohn's disease, unspecified, without complications (10) Immunosuppression: Code(s): D84.9 - Immunodeficiency, unspecified (11) Spondylolisthesis, lumbar region: Code(s): M43.16 - Spondylolisthesis, lumbar region Plan: (12) Abdominal pain: Code(s): R10.9 - Unspecified abdominal pain Qualifiers: Abdominal location: lower abdomen, unspecified Qualified Code(s): R10.30 - Lower abdominal pain, unspecified Plan: Plan Medications: Refilled ctlwqowiao-oxxitrbmulpeq-qxzk 50-300-40 mg (Fioricet) 1 cap PO TID 10 days PRN 30 caps 0RF Post dural puncture headache hydromorphone Partial fill per patient's request only 4 mg PO BID 30 days PRN 60 tabs 0RF severe pain (scale score 7-10) F11.90 - Opioid use, unspecified, uncomplicated, G89.29 - Other chronic pain, G89.4 - Chronic pain syndrome, R10.9 - Unspecified abdominal pain Patient Instructions: I here by testify that I spent 38 minutes in conversation with this patient as well as evaluating her prior notes, as well as planning her future care and completing today's note. Coding Level of Care Code Est Pt Level 4 (75835) Procedure Only Diagnoses Cervicalgia M54.2 Behcet's disease M35.2 Crohn's disease K50.918 Digestive disease complication type: other complication Gastrointestinal tract location: unspecified location Low back pain M54.5 Chronic pain syndrome G89.4 Chronic, continuous use of opioids F11.90 Chronic abdominal pain R10.9; G89.29 Postdural puncture headache G97.1 Immunosuppression D84.9 Spondylolisthesis, lumbar region M43.16 Lower abdominal pain R10.30 Abdominal location: lower abdomen, unspecified
== END 2023-05-26 10:36 | disposition home or self-care (01) ==
PROVIDERS: PCP Nurse Practitioner Family; Visit Provider Anesthesiology
DX: G89.4 Chronic pain syndrome (principal); M54.2 Cervicalgia; Z79.891 Long term (current) use of opiate analgesic; Z45.1 Encounter for adjustment and management of infusion pump; M35.2 Behcet's disease; K50.918 Crohn's disease, unspecified, with other complication; M54.50 Low back pain, unspecified; R10.9 Unspecified abdominal pain; G89.29 Other chronic pain; G97.1 Other reaction to spinal and lumbar puncture; D84.9 Immunodeficiency, unspecified; M43.16 Spondylolisthesis, lumbar region
CPT/HCPCS: 62370; 99214

== ENCOUNTER → 2023-05-26 09:58 | Outpatient (BNVA) | payer MEDICARE, MEDICAID, SELFPAY | PROVIDERS: PCP Nurse Practitioner Family; Visit Provider Anesthesiology | DX: Z51.81 Encounter for therapeutic drug level monitoring (principal); F11.20 Opioid dependence, uncomplicated; M54.2 Cervicalgia; M35.2 Behcet's disease; M54.50 Low back pain, unspecified; M43.16 Spondylolisthesis, lumbar region; K50.918 Crohn's disease, unspecified, with other complication; G89.29 Other chronic pain; R10.9 Unspecified abdominal pain; D84.9 Immunodeficiency, unspecified; R10.30 Lower abdominal pain, unspecified; G97.1 Other reaction to spinal and lumbar puncture | CPT/HCPCS: 62370; 99212 ==

== ENCOUNTER 2023-06-24 11:57 | Day surgery (SDC) | payer MEDICARE, MEDICAID, SELFPAY ==
--- NOTE | 2023-06-23 12:17 | P.CONAN_ITS ---
Documented by User: Mellisa Almonte NP 06/23/23 12:29 HPI - Anesthesia Eval Consult details Narrative: 42yo F for Epidural Blood Patch s/p same 01/2023 with MAC s/p Intrathecal Drug Delivery Implant with Preservative Free Bupivacain 01/2023 with GA-LMA 4 Eliquis hx DVT Chronic opiates Multiple med allergies PMFSH Active Problems Active Problems: All Active Problems (Updated 04/29/23 @ 00:03 by Aditya Liang) Constipation due to opioid therapy (Acute) Constipation by delayed colonic transit (Acute) Clostridium difficile colitis (Acute) Cervicalgia (Acute) Acute low back pain (Acute) Chronic abdominal pain (Acute) Acute respiratory failure with hypoxia (Acute) Pneumonia due to COVID-19 virus (Acute) Chest pain (Acute) Contusion, back (Acute) Pulmonary edema (Acute) Elbow injury (Acute) Behcet's disease (Acute) Cervicalgia (Acute) Low back pain (Acute) Past Medical History Medical History (Updated 06/24/23 @ 14:14 by Marisa Jarrell RN) Pulmonary emboli Crohn's disease Chronic, continuous use of opioids Immunosuppression Absence seizure disorder DVT (deep venous thrombosis) Pyloric stenosis Asthma Common variable immunodeficiency Spondylolisthesis, lumbar region Spondylosis of lumbar region without myelopathy or radiculopathy Abdominal pain, chronic, generalized Gastroparesis Spontaneous pneumothorax Chronic pain syndrome Cervicalgia Low back pain Behcet's disease Family History Family History Father Hairy cell leukemia Family history of problems with anesthesia: No Surgical History Surgical History History of hernia surgery History of Problems with Anesthesia: No Social History Social History Household Members: Children Household Members Other:: son Housing: Condominium Do you presently have visiting nurse or other home services: No Alcohol intake: never Patient Tobacco Use Status: Never used Tobacco Second Hand Smoke Exposure: No Use of substances other than those prescribed or required for medical reasons: No Are you DNR?: No Advance Directives: No Advance Directives Information Provided: Yes Advance Directives on File: No Advance Directives Date on File: 03/12/21 service: No Current occupational status: unemployed Meds Allergies Allergy/AdvReac Type Severity Reaction Status Date / Time ciprofloxacin [Cipro] Allergy Unknown Hives Verified 05/26/23 11:07 levofloxacin [Levaquin] Allergy Unknown Hives Verified 05/26/23 11:07 metoclopramide [Reglan] Allergy Unknown Hives Verified 05/26/23 11:07 ondansetron [Zofran] Allergy Unknown Itching Verified 05/26/23 11:07 penicillin V Allergy Unknown Hives Verified 05/26/23 11:07 prochlorperazine Allergy Unknown Shortness Verified 05/26/23 11:07 [From Compazine] of Breath Sulfa (Sulfonamide Allergy Unknown Hives Verified 05/26/23 11:07 Antibiotics) thalidomide [From Thalomid] Allergy Unknown Rash Verified 05/26/23 11:07 haloperidol [From Haldol] Allergy Itching Verified 05/26/23 11:07 Home Medications Medication Instructions Recorded Confirmed Last Taken Type albuterol sulfate 90 mcg/actuation 2 puff inhalation Q4H PRN Wheezing 12/12/20 04/19/23 02/04/23 History aerosol inhaler fluticasone furoate 200 1 inh inhalation Q24H 12/12/20 04/19/23 02/04/23 History mcg-vilanterol 25 mcg/dose inhalation powder (Breo Ellipta) umeclidinium 62.5 mcg/actuation 1 inh inhalation DAILY 12/12/20 04/19/23 02/04/23 History blister powder for inhalation (Incruse Ellipta) diphenhydramine HCl 50 mg/mL 25 mg IV QID PRN Nausea 03/12/21 04/19/23 02/04/23 History injection solution ondansetron HCl (PF) 4 mg/2 mL 4 mg IV QID PRN Nausea 03/12/21 04/19/23 02/04/23 History injection solution levetiracetam 100 mg/mL oral 700 mg PO BID 08/18/21 04/19/23 02/04/23 History solution (Keppra) promethazine 25 mg tablet 25 mg PO QID PRN Nausea And 08/18/21 04/19/23 02/04/23 History Vomiting pantoprazole 40 mg tablet,delayed 40 mg PO DAILY PRN ACID REFLEX 02/05/23 04/19/23 02/04/23 History release Exam Pertinent Lab Results Pertinent Lab Results: Laboratory Tests 04/20/23 04/21/23 04/21/23 05:06 05:20 05:20 WBC 5.7 Hgb 11.3 L Hct 34.4 L Plt Count 179 Sodium 139 Potassium 3.9 Chloride 104 Carbon Dioxide 28 BUN 14 Creatinine 0.64 Assessment and Plan Assessment Anesthesia Assessment: Chart Reviewed Final Anesthetic Review Family History of Problems with Anesthesia: No History of Problems with Anesthesia: No Documented by User: Maryellen Amin MD 06/24/23 14:19 [facility] Past Medical History Medical History (Updated 06/24/23 @ 14:14 by Marisa Jarrell RN) Pulmonary emboli Crohn's disease Chronic, continuous use of opioids Immunosuppression Absence seizure disorder DVT (deep venous thrombosis) Pyloric stenosis Asthma Common variable immunodeficiency Spondylolisthesis, lumbar region Spondylosis of lumbar region without myelopathy or radiculopathy Abdominal pain, chronic, generalized Gastroparesis Spontaneous pneumothorax Chronic pain syndrome Cervicalgia Low back pain Behcet's disease Family History Family History Father Hairy cell leukemia Surgical History Surgical History History of hernia surgery Social History Social History Household Members: Children Household Members Other:: son Housing: Condominium Do you presently have visiting nurse or other home services: No Alcohol intake: never Patient Tobacco Use Status: Never used Tobacco Second Hand Smoke Exposure: No Use of substances other than those prescribed or required for medical reasons: No Are you DNR?: No Advance Directives: No Advance Directives Information Provided: Yes Advance Directives on File: No Advance Directives Date on File: 03/12/21 service: No Current occupational status: unemployed Meds Allergies Allergy/AdvReac Type Severity Reaction Status Date / Time ciprofloxacin [Cipro] Allergy Unknown Hives Verified 05/26/23 11:07 levofloxacin [Levaquin] Allergy Unknown Hives Verified 05/26/23 11:07 metoclopramide [Reglan] Allergy Unknown Hives Verified 05/26/23 11:07 ondansetron [Zofran] Allergy Unknown Itching Verified 05/26/23 11:07 penicillin V Allergy Unknown Hives Verified 05/26/23 11:07 prochlorperazine Allergy Unknown Shortness Verified 05/26/23 11:07 [From Compazine] of Breath Sulfa (Sulfonamide Allergy Unknown Hives Verified 05/26/23 11:07 Antibiotics) thalidomide [From Thalomid] Allergy Unknown Rash Verified 05/26/23 11:07 haloperidol [From Haldol] Allergy Itching Verified 05/26/23 11:07 Home Medications Medication Instructions Recorded Confirmed Last Taken Type albuterol sulfate 90 mcg/actuation 2 puff inhalation Q4H PRN Wheezing 12/12/20 04/19/23 02/04/23 History aerosol inhaler fluticasone furoate 200 1 inh inhalation Q24H 12/12/20 04/19/23 02/04/23 History mcg-vilanterol 25 mcg/dose inhalation powder (Breo Ellipta) umeclidinium 62.5 mcg/actuation 1 inh inhalation DAILY 12/12/20 04/19/23 02/04/23 History blister powder for inhalation (Incruse Ellipta) diphenhydramine HCl 50 mg/mL 25 mg IV QID PRN Nausea 03/12/21 04/19/23 02/04/23 History injection solution ondansetron HCl (PF) 4 mg/2 mL 4 mg IV QID PRN Nausea 03/12/21 04/19/23 02/04/23 History injection solution levetiracetam 100 mg/mL oral 700 mg PO BID 08/18/21 04/19/23 02/04/23 History solution (Keppra) promethazine 25 mg tablet 25 mg PO QID PRN Nausea And 08/18/21 04/19/23 02/04/23 History Vomiting pantoprazole 40 mg tablet,delayed 40 mg PO DAILY PRN ACID REFLEX 02/05/23 04/19/23 02/04/23 History release Exam Airway Mallampati Class: II TM Dist: >3cm Neck ROM: Full Heart: rrr Lungs: cta Assessment and Plan Assessment Anesthesia Assessment: Anesthesia Plan Discussed Final Anesthetic Review NPO: Yes ASA Class: II Final Preanesthetic Review: No Changes in Pt Med Stat, Meds/Allgs Chart Reviewed and Consent Obtained/Reviewed Patient Risk: Low (not atypical case, khibikin to place IV and a-line) Procedure Risk: Intermediate Anesthetic Plan Anesthetic Plan: MAC: Disposition: Standard PACU
--- NOTE | ~2023-06-24 | FL_ITS ---
EXAMINATION: XR FLUOROSCOPY WITH IMAGES CLINICAL INFORMATION: Epidural blood patch COMPARISON: 02/11/2023 TECHNIQUE: Fluoroscopy Supervised By: Dr. Manny Pedroza. Fluoroscopy Time: 0.2 minutes. Cumulative Dose: 8.56 mGy. DAP: 2.17 Gycm2. Images: 2. FINDINGS: Oblique and lateral views of the lower lumbar spine show a needle in the posterior spine with contrast in the epidural space. Please see Dr. Manny Pedroza's report for complete details. FL/FL guidance in OR IMPRESSION: Fluoroscopic guidance for epidural blood patch.
[2023-06-24 12:41] VITALS: BMI 28.7
[2023-06-24 12:49] VITALS: BP 118/64; PULSE 80; RESP 16; TEMP 36.7; O2SAT 98
[2023-06-24 12:53] LABS: UPreg QC Valid YES; Urine Pregnancy NEGATIVE (NEGATIVE)
--- NOTE | 2023-06-24 13:57 | P.HPSUR_ITS ---
Pre-Procedural Eval Section A - 24 Hr Update-Section A only Date of Service: 06/24/23 The patient is an INPATIENT: No Changes since office visit: Yes Patient answered all questions The patient has been examined within 24 hours of the surgical procedure. The History & Physical has been completed within 30 days and I have reviewed it.: No Section B - Complete if H&P > 30 days Chief Complaint: Other reaction to spinal and lumbar puncture Details of Present Illness: post dural puncture headache Relevant Family History (Specify if Yes): No Relevant Social History: None Present Medications: see Short Stay [facility] assessment Medical History: Significant History History of Previous Operations: Relevant previous surgery/procedure and date(s) Allergies: Allergies Allergy/AdvReac Type Severity Reaction Status Date / Time ciprofloxacin [Cipro] Allergy Unknown Hives Verified 05/26/23 11:07 levofloxacin [Levaquin] Allergy Unknown Hives Verified 05/26/23 11:07 metoclopramide [Reglan] Allergy Unknown Hives Verified 05/26/23 11:07 ondansetron [Zofran] Allergy Unknown Itching Verified 05/26/23 11:07 penicillin V Allergy Unknown Hives Verified 05/26/23 11:07 prochlorperazine Allergy Unknown Shortness Verified 05/26/23 11:07 [From Compazine] of Breath Sulfa (Sulfonamide Allergy Unknown Hives Verified 05/26/23 11:07 Antibiotics) thalidomide [From Thalomid] Allergy Unknown Rash Verified 05/26/23 11:07 haloperidol [From Haldol] Allergy Itching Verified 05/26/23 11:07 Review of Systems Sugical H&P ROS: Negative: Constitution, Cardiovascular, Respiratory, Neurological, Psychiatric, Allergic/Immunologic, Genitourinary, Integumentary, Endocrine and Eyes/Ears/Nose/Throat and Yes, Specify: Hem-Onc (Behcet disease), Gastrointestinal (Crohn's disease) and Musculoskeletal (Spondylosis lumbar) Exam Surgical H&P Exam: Normal: HEENT, Normal: Heart, Normal: Lungs, Normal: Extremities, Normal: Skin and Normal: Neurological and Significant Findings: Abdomen (Multiple incisions from previous surgeries) Plan Diagnosis/Plan: Unchanged I have reviewed the history and physical and performed a pertinent physical examination on my patient. No changes have occurred unless specified. Time Spent With Patient Time: Total time managing care of this patient today ____ minutes.
[2023-06-24 15:21] VITALS: BP 120/61; PULSE 70; RESP 16; TEMP 36.1; O2SAT 95
[2023-06-24 15:36] VITALS: BP 123/62; PULSE 66; RESP 16; O2SAT 98
--- NOTE | 2023-06-24 15:46 | PM.OP ---
Brief Operative Note Date of Service: 06/24/23 Pre-op diagnosis: Post dural puncture headache Post-op diagnosis: same Procedure: Epidural blood patch Surgeon: Manny Pedroza MD Anesthesia: MAC Was an Account Executive Trainee used for this Procedure?: No Estimated blood loss (mL): 4 Condition: stable Disposition: PACU
--- NOTE | 2023-06-24 15:47 | W.PM.OPN ---
Operative Note Operative Note Date of Service: 02/11/23 Narrative: Image guided epidural blood patch, made with intrathecal catheter contrast visualization, intrathecal pump postoperative adjustment. Informed consent was thoroughly explained to the patient risks of epidural hematoma and epidural abscess were explained to the patient. Benefits and alternatives were also explained to the patient. She agreed to go for the procedure. The patient came to the operating room and she was positioned supine on the stretcher. [place] [employer] monitors were applied and patient was minimally sedated. Time-out was performed delineating correct site and side of the procedure name date of of the patient, allergies of the patient risks and benefits. The anterior left side of the neck was prepped with ChloraPrep and draped with sterile towels. External jugular vein was cannulated using 18 gauge Angiocath it was connected to lactated Ringer IV bag and administration of clindamycin antibiotic 900 mg intravenously started. After that left wrist of the patient was prepped with ChloraPrep and draped with sterile utility towels. A line pressure line was prepared without heparin. Seldinger technique was used to puncture left radial artery, insert guidewire, and inserted the A-line catheter over the guidewire into the radial artery. A line was connected to the pressure line. After that patient was transferred to the operating table prone dressings were removed from the previous I DDD sites implantation incisions. The patient was moderately sedated. The lower back was prepped with ChloraPrep and draped with full body sterile drape. Sterilely draped C-arm was brought over the operating field and sq picture of the pain pump was demonstrated on the screen. Noncoring 25 gauge needle was connected to the extension tubing and connected to 10 cc syringe, the needle was - advanced to the side port of the pain pump and aspiration of the CSF was performed. Free flow of CSF in the amount of 1 cc without air bubbles was demonstrated in the syringe. After that 0.8 mL of the Isovue M contrast was injected into the intrathecal catheter. This visualized intrathecal catheter and visualized that intrathecal catheter is entering the L1-L2 inter laminar space on the right side. 20 gauge epidural Touhy needle was inserted in the projection of the upper portion of the left lamina of L1 vertebra on the right and was slowly advanced to were the epidural space on T12 L1 intervertebral interspace on anterior posterior and lateral views. Loss of resistance to air technique was used to locate epidural space. When loss of resistance to air felt small amount of the contrast was injected into the epidural space demonstrating epidurogram. After that from the A-line 22.5 cc of the arterial blood was obtained under strict sterile conditions and it was slowly injected into the epidural space. Upon completion of the injection epidural needle w was removed. Upon completion of the injection 25 gauge noncoring needle was removed and sterile dressings were applied to the sites of the procedure and the incision lines of the pump implant. The intrathecal catheter was interrogated and bolus to fill up the side port chamber and intrathecal catheter was ordered to be performed by the machine. The time of the bolus was 14 minutes. The patient tolerated procedure well she was taking outside of the operating room to recovery room. In recovery room A-line was removed and gentle pressure was applied to were the left radial artery. The pressure was held until no bleeding was demonstrated.
[2023-06-24 15:51] VITALS: BP 119/74; PULSE 70; RESP 16; TEMP 36.2; O2SAT 95
== END 2023-06-24 16:36 | disposition home or self-care (01) ==
PROVIDERS: Nurse Practitioner; PCP Nurse Practitioner Family; Visit Provider Anesthesiology
PROC: 3E0R3GC Introduction of Other Therapeutic Substance into Spinal Canal, Percutaneous Approach (ICD-10-PCS; CPT 62273; principal; 2023-06-24 13:40)
DX: G97.1 Other reaction to spinal and lumbar puncture (principal); G89.4 Chronic pain syndrome; M54.2 Cervicalgia; M54.50 Low back pain, unspecified; M43.16 Spondylolisthesis, lumbar region; R10.2 Pelvic and perineal pain; R10.30 Lower abdominal pain, unspecified; M35.2 Behcet's disease; K50.90 Crohn's disease, unspecified, without complications; G40.A09 Absence epileptic syndrome, not intractable, without status epilepticus; K31.84 Gastroparesis; D83.9 Common variable immunodeficiency, unspecified; I82.409 Acute embolism and thrombosis of unspecified deep veins of unspecified lower extremity; I26.99 Other pulmonary embolism without acute cor pulmonale; Z79.01 Long term (current) use of anticoagulants; F11.90 Opioid use, unspecified, uncomplicated; Z88.0 Allergy status to penicillin; Z88.2 Allergy status to sulfonamides; Z88.8 Allergy status to other drugs, medicaments and biological substances; Z88.1 Allergy status to other antibiotic agents
CPT/HCPCS: 62273; 62370; 81025; J0736; J2250; J2704; J3010; Q9967

== ENCOUNTER → 2023-06-24 11:57 | Outpatient (BNV) | payer MEDICARE, MEDICAID, SELFPAY | PROVIDERS: PCP Nurse Practitioner Family; Visit Provider Anesthesiology | DX: G97.1 Other reaction to spinal and lumbar puncture (principal) | CPT/HCPCS: 62273; 77003 ==

== ENCOUNTER 2023-06-24 15:45 | Outpatient (AMB) | payer MEDICARE, MEDICAID, SELFPAY ==
--- NOTE | 2023-06-24 15:47 | MHC.OFFVIS ---
Intake Intake Visit Reasons: ITDD REFILL Allergies ciprofloxacin [Cipro] Allergy (Unknown, Verified 05/26/23 11:07) Hives levofloxacin [Levaquin] Allergy (Unknown, Verified 05/26/23 11:07) Hives metoclopramide [Reglan] Allergy (Unknown, Verified 05/26/23 11:07) Hives ondansetron [Zofran] Allergy (Unknown, Verified 05/26/23 11:07) Itching penicillin V Allergy (Unknown, Verified 05/26/23 11:07) Hives prochlorperazine [From Compazine] Allergy (Unknown, Verified 05/26/23 11:07) Shortness of Breath Sulfa (Sulfonamide Antibiotics) Allergy (Unknown, Verified 05/26/23 11:07) Hives thalidomide [From Thalomid] Allergy (Unknown, Verified 05/26/23 11:07) Rash haloperidol [From Haldol] Allergy (Verified 05/26/23 11:07) Itching PFSH Medical History (Updated 06/24/23 @ 14:14 by Marisa Jarrell RN) Pulmonary emboli Crohn's disease Chronic, continuous use of opioids Immunosuppression Absence seizure disorder DVT (deep venous thrombosis) Pyloric stenosis Asthma Common variable immunodeficiency Spondylolisthesis, lumbar region Spondylosis of lumbar region without myelopathy or radiculopathy Abdominal pain, chronic, generalized Gastroparesis Spontaneous pneumothorax Chronic pain syndrome Cervicalgia Low back pain Behcet's disease Surgical History History of hernia surgery Family History Father Hairy cell leukemia Social History Household Members: Children Household Members Other:: son Housing: Condominium Do you presently have visiting nurse or other home services: No Alcohol intake: never Patient Tobacco Use Status: Never used Tobacco Second Hand Smoke Exposure: No Advance Directives Date on File: 03/12/21 service: No Current occupational status: unemployed Assessment & Plan Assessment & Plan (1) Cervicalgia: Code(s): M54.2 - Cervicalgia Plan: (2) Behcet's disease: Code(s): M35.2 - Behcet's disease Plan: (3) Crohn's disease: Code(s): K50.90 - Crohn's disease, unspecified, without complications Qualifiers: Digestive disease complication type: other complication Gastrointestinal tract location: unspecified location Qualified Code(s): K50.918 - Crohn's disease, unspecified, with other complication (4) Low back pain: Code(s): M54.5 - Low back pain (5) Chronic pain syndrome: Code(s): G89.4 - Chronic pain syndrome (6) Chronic, continuous use of opioids: Code(s): F11.90 - Opioid use, unspecified, uncomplicated (7) Chronic abdominal pain: Code(s): R10.9 - Unspecified abdominal pain; G89.29 - Other chronic pain Plan: Intrathecal pump refill ? Intrathecal pump refill. THE PATIENT CAME TODAY IN the office FOR THE CHANGE OF THE MEDICATION IN her PAIN PUMP. The name and date of were verified and informed consent was obtained for the procedure. The pump was interrogated and the residual amount of fluid was found to be 6.1 mL. SHE WAS POSITIONED prone on the bed AND THE AREA OF THE INTRATHECAL PUMP WAS PREPPED WITH CHLORAPREP. The fenestrated drape was sterilely applied over the area of the pump. Sterile gloves were worn and of the aspiration system was assembled containing 2 in 22 gauge noncoring needle, the needle was connected to extension tubing which was connected to the 20 cc sterile syringe. The pain pump was palpated under the skin in the patient's left buttock area. The needle was inserted through the skin and the central plug of the pain pump and fluid was aspirated. The clear fluid was going into the syringe the total amount of the fluid was 6.0 mL .. After that a new batch? of medication was obtained which was containing bupivacaine in concentration 14 per ml. The admixture was made in 20 cc syringe prepared by [facility] compounding pharmacy. The syringe was connected to the bacterial filter, and then connected to the extension tubing. After that the medication in the syringe was slowly instilled into the pump with aspirations at 15 and 5 cc joiner.? The pump was reprogrammed for the doses of 1.4 mg of bupivacaine the day and 1.9 mg of bupivacaine every 4 hours up to 4 administrations a day. (8) Postdural puncture headache: Code(s): G97.1 - Other reaction to spinal and lumbar puncture (9) Crohn's disease: Code(s): K50.90 - Crohn's disease, unspecified, without complications (10) Immunosuppression: Code(s): D84.9 - Immunodeficiency, unspecified (11) Spondylolisthesis, lumbar region: Code(s): M43.16 - Spondylolisthesis, lumbar region Plan: (12) Abdominal pain: Code(s): R10.9 - Unspecified abdominal pain Qualifiers: Abdominal location: lower abdomen, unspecified Qualified Code(s): R10.30 - Lower abdominal pain, unspecified Plan: Plan Coding Level of Care Code Procedure Only Diagnoses Cervicalgia M54.2 Behcet's disease M35.2 Crohn's disease K50.918 Digestive disease complication type: other complication Gastrointestinal tract location: unspecified location Low back pain M54.5 Chronic pain syndrome G89.4 Chronic, continuous use of opioids F11.90 Chronic abdominal pain R10.9; G89.29 Postdural puncture headache G97.1 Immunosuppression D84.9 Spondylolisthesis, lumbar region M43.16 Lower abdominal pain R10.30 Abdominal location: lower abdomen, unspecified
== END 2023-06-24 16:11 | disposition home or self-care (01) ==
LOC: HO.PMC 15:45
PROVIDERS: PCP Nurse Practitioner Family; Visit Provider Anesthesiology
DX: Z45.1 Encounter for adjustment and management of infusion pump (principal); G89.4 Chronic pain syndrome; M54.2 Cervicalgia; M35.2 Behcet's disease
CPT/HCPCS: 62370

== ENCOUNTER 2023-06-30 11:13 | Outpatient (AMB) | payer MEDICARE, MEDICAID, SELFPAY ==
--- NOTE | 2023-06-30 11:16 | MHC.OFFVIS ---
Intake Vital Signs 06/30/23 11:19 Height 4 ft 11 in Weight 142 lb BMI 28.7 BP 118/64 Blood Pressure Location Lt brachial Position Sitting Respiration 16 Pulse 80 Pulse Source Pulse Oximeter Pulse Oximetry (%) 96 Oxygen Delivery Method Room Air Intake Visit Reasons: S/p Epidural Blood Patch 06/24/23/lvm Intake Note: Patient comes in for post-op appointment. Reports pain 6.5/10. Allergies ciprofloxacin [Cipro] Allergy (Unknown, Verified 06/30/23 11:20) Hives levofloxacin [Levaquin] Allergy (Unknown, Verified 06/30/23 11:20) Hives metoclopramide [Reglan] Allergy (Unknown, Verified 06/30/23 11:20) Hives ondansetron [Zofran] Allergy (Unknown, Verified 06/30/23 11:20) Itching penicillin V Allergy (Unknown, Verified 06/30/23 11:20) Hives prochlorperazine [From Compazine] Allergy (Unknown, Verified 06/30/23 11:20) Shortness of Breath Sulfa (Sulfonamide Antibiotics) Allergy (Unknown, Verified 06/30/23 11:20) Hives thalidomide [From Thalomid] Allergy (Unknown, Verified 06/30/23 11:20) Rash haloperidol [From Haldol] Allergy (Verified 06/30/23 11:20) Itching HPI HPI Comments History of Present Illness Details [place] in the office today for the follow-up after the epidural blood patch to treat her post dural puncture headache. She reports that her last headache was 4 days ago on Tuesday. She reports overall pain today 6.5/10 and relates her pain mostly to the lower back and abdominal pain. I assured her that we will be working on this pain. I told her that she needs to be very careful to avoid straining down, severe coughing, severe sneezing, heavy lifting more than 5 lb by both hands, I recommended her to avoid constipations, if constipated to take OTC laxatives. It should be maintained as a regimen for the next 6-8 weeks. Next pump refill will be scheduled on the 20 of July. I will order new batch of the intrathecal medication to that date. After the administration of the bolus dose spread out in time over the 40 minutes she reported no longer dizziness and lightheadedness. She already reports that intrathecal bupivacaine PTM does help her pain better than hydromorphone oral. Her postoperative period got complicated by postdural puncture headache. She went to ER with severe positional headache, nausea and vomiting on 02/13/23 where she was seen by me and recommended to try a conservative treatment of the headache mainly because of the difficulty with vascular access and therefore difficulty with performing epidural blood patch (She has a h/o 27 left and right supclavian placed portocaths for the administration of TPN and she has IVC portocath through which she receives Her TPN). Unfortunately conservative treatment was not successful and she went for epidural blood patch with right radial a-line placement and sterile blood obtained in the amount of 22 mls from the a-line and injected into the left L1- L2 interlaminar epidural space with contrast visualization of the intrathecal catheter which enters the intrathecal space at the right side of the L1- L2 intrathecal space. After blood patch her headache improved however today she came and reported that moderate positional headache returned however no nausea and vomiting. I again recommended conservative management: continual bed rest, minimal ambulation, caffeinated bevereges and fioricet prn. Prior: Brooklyn is 41 years old female who is suffering from multiple medical conditions including Bencet disease, Crohn's disease, she is immunocompromised.? Her pain involves chronic abdominal pain in lower back pain.? She also has a chronic pelvic pain.? She was under might exacerbation on chronic oral opioid therapy for 3 years.? She was approved by psychological evaluation in the past for the neuromodulation.. [facility] Medical History (Updated 06/24/23 @ 14:14 by Marisa Jarrell RN) Pulmonary emboli Crohn's disease Chronic, continuous use of opioids Immunosuppression Absence seizure disorder DVT (deep venous thrombosis) Pyloric stenosis Asthma Common variable immunodeficiency Spondylolisthesis, lumbar region Spondylosis of lumbar region without myelopathy or radiculopathy Abdominal pain, chronic, generalized Gastroparesis Spontaneous pneumothorax Chronic pain syndrome Cervicalgia Low back pain Behcet's disease Surgical History History of hernia surgery Family History Father Hairy cell leukemia Social History Household Members: Children Household Members Other:: son Housing: Condominium Do you presently have visiting nurse or other home services: No Alcohol intake: never Patient Tobacco Use Status: Never used Tobacco Second Hand Smoke Exposure: No Advance Directives Date on File: 03/12/21 service: No Current occupational status: unemployed Review of Systems Const All systems reviewed & are unremarkable except as noted in HPI and below Physical Exam Vital Signs: Last Vital Signs Pulse 80 06/30/23 11:19 Resp 16 06/30/23 11:19 BP 118/64 06/30/23 11:19 Pulse Ox 96 06/30/23 11:19 Oxygen Delivery Method Room Air 06/30/23 11:19 BMI result Body Mass Index 28.7 Const General: cooperative, no acute distress and alert Orientation/consciousness: patient oriented x3 HEENT Head: Yes normocephalic and Yes atraumatic Ears: hearing grossly normal bilaterally Eyes General: appearance normal, both eyes and all related structures Alignment and Position: alignment normal and position normal Periorbital: periorbital findings normal Eyelids: Yes eyelids normal Pupils: Equal, round and reactive pupils present, pupils equal and not dilated EOM: EOMs intact bilaterally Direct Ophthalmoscopy: no photophobia Neck Neck: Yes normal visual inspection and Yes no JVD Resp Effort & Inspection: normal respiratory effort, able to speak in complete sentences and no audible wheezes Cardio Jugular venous distension: no JVD GI Inspection: Yes incision and Yes scar Back/Spine/Pelvis Cervical Spine: normal cervical lordosis Thoracic/Lumbar Spine: thoracic and lumbar spine normal to inspection Neuro General: patient oriented x3, gait normal and moves all extremities Cranial nerves: Yes Equal, round and reactive pupils present Assessment & Plan Assessment & Plan (1) Cervicalgia: Code(s): M54.2 - Cervicalgia Plan: (2) Behcet's disease: Code(s): M35.2 - Behcet's disease Plan: (3) Crohn's disease: Code(s): K50.90 - Crohn's disease, unspecified, without complications Qualifiers: Digestive disease complication type: other complication Gastrointestinal tract location: unspecified location Qualified Code(s): K50.918 - Crohn's disease, unspecified, with other complication (4) Low back pain: Code(s): M54.5 - Low back pain (5) Chronic pain syndrome: Code(s): G89.4 - Chronic pain syndrome (6) Chronic, continuous use of opioids: Code(s): F11.90 - Opioid use, unspecified, uncomplicated (7) Chronic abdominal pain: Code(s): R10.9 - Unspecified abdominal pain; G89.29 - Other chronic pain Plan: Intrathecal pump refill ? Intrathecal pump refill. (8) Postdural puncture headache: Code(s): G97.1 - Other reaction to spinal and lumbar puncture (9) Crohn's disease: Code(s): K50.90 - Crohn's disease, unspecified, without complications (10) Immunosuppression: Code(s): D84.9 - Immunodeficiency, unspecified (11) Spondylolisthesis, lumbar region: Code(s): M43.16 - Spondylolisthesis, lumbar region Plan: (12) Abdominal pain: Code(s): R10.9 - Unspecified abdominal pain Qualifiers: Abdominal location: lower abdomen, unspecified Qualified Code(s): R10.30 - Lower abdominal pain, unspecified Plan: Plan Next appointment for the Dilaudid pill count and pump refill will be scheduled on 07/20/2023. New medication will be ordered with bupivacaine concentration of 28 mg per mL. This will double her refill time. Coding Level of Care Code Est Pt Level 3 (39331) Diagnoses Cervicalgia M54.2 Behcet's disease M35.2 Crohn's disease K50.918 Digestive disease complication type: other complication Gastrointestinal tract location: unspecified location Low back pain M54.5 Chronic pain syndrome G89.4 Chronic, continuous use of opioids F11.90 Chronic abdominal pain R10.9; G89.29 Postdural puncture headache G97.1 Immunosuppression D84.9 Spondylolisthesis, lumbar region M43.16 Lower abdominal pain R10.30 Abdominal location: lower abdomen, unspecified
[2023-06-30 11:19] VITALS: BP 118/64; PULSE 80; RESP 16; O2SAT 96; BMI 28.7
== END 2023-06-30 11:35 | disposition home or self-care (01) ==
PROVIDERS: PCP Nurse Practitioner Family; Visit Provider Anesthesiology
DX: G89.4 Chronic pain syndrome (principal); M54.2 Cervicalgia; M35.2 Behcet's disease; Z79.891 Long term (current) use of opiate analgesic; K50.918 Crohn's disease, unspecified, with other complication; M54.50 Low back pain, unspecified; R10.9 Unspecified abdominal pain; G89.29 Other chronic pain; G97.1 Other reaction to spinal and lumbar puncture; D84.9 Immunodeficiency, unspecified; M43.16 Spondylolisthesis, lumbar region; R10.30 Lower abdominal pain, unspecified
CPT/HCPCS: 99213

== ENCOUNTER → 2023-06-30 11:13 | Outpatient (BNVA) | payer MEDICARE, MEDICAID, SELFPAY | PROVIDERS: PCP Nurse Practitioner Family; Visit Provider Anesthesiology | DX: G97.1 Other reaction to spinal and lumbar puncture (principal); R10.9 Unspecified abdominal pain; M54.2 Cervicalgia; R10.30 Lower abdominal pain, unspecified; M54.50 Low back pain, unspecified; G89.29 Other chronic pain; M35.2 Behcet's disease; D84.9 Immunodeficiency, unspecified; M43.16 Spondylolisthesis, lumbar region; K50.918 Crohn's disease, unspecified, with other complication; F11.20 Opioid dependence, uncomplicated | CPT/HCPCS: 99212 ==

== ENCOUNTER 2023-07-12 15:14 | Emergency (ER) | payer MEDICARE, MEDICAID, SELFPAY ==
--- NOTE | ~2023-07-12 | CT_ITS ---
EXAMINATION: CTA CHEST PE STUDY CLINICAL INFORMATION: Posterior chest pain, SOB, off Eliquis, H/O PE,DVT COMPARISON: 04/18/2023 TECHNIQUE: Prior to contrast administration, noncontrast localization images were obtained. After the administration of 85 mL of Omnipaque nonionic IV contrast, contiguous thin slice helical images were obtained through the thorax. Reformatted MIP images in the coronal and sagittal planes were obtained at the acquisition workstation. This CT examination was performed using dose optimization techniques as appropriate, variously including the following: *Automated exposure control *Adjustment of mA and/or kV according to patient size (this includes techniques or standardized protocols for targeted exams where dose is matched to indication/reason for exam; i.e. extremities or head) *Use of iterative reconstruction technique DLP: 183 mGy-cm. FINDINGS: The bolus timing on this study was acceptable for visualization of the pulmonary arterial tree. There are no intraluminal pulmonary arterial filling defects present to suggest pulmonary embolism. Patient was scanned with prone technique. Dense nodular pleural thickening on the left is again noted. This could be seen with a prior pleurodesis. No abnormal pulmonary nodules or masses are appreciated. No significant hilar or mediastinal adenopathy. There is no evidence of pleural effusion or pneumothorax. The heart is normal in size. No evidence of ventricular septal bowing or right heart strain. Vascular calcification within the aorta. Inferiorly positioned in the inferior vena caval port ending overlying the right atrium. Intraspinal catheter is noted as well.. There is no pericardial effusion or pericardial thickening. Limited evaluation of the upper abdominal viscera is otherwise unremarkable. CT/CT angio chest PE protocol IMPRESSION: 1. No evidence for pulmonary emboli. 2. No focal airspace disease. 3. Chronic dense left pleural thickening possibly related to prior pleurodesis. This could be clinically correlated. 4. VTE: Negative.
[2023-07-12 15:28] VITALS: BP 116/80; PULSE 84; O2SAT 98
[2023-07-12 15:36] VITALS: BP 111/85; PULSE 78; RESP 16; TEMP 36.8; O2SAT 95; BMI 27.8
--- NOTE | 2023-07-12 16:25 | ED_ITS ---
HPI - Syncope General Chief Complaint: Seizure Stated Complaint: syncope episode/ 30 sec seizure. N/V Time Seen by Provider: 07/12/23 16:00 Source: patient Mode of arrival: EMS Limitations: no limitations History of Present Illness HPI narrative: 42-year-old female history of COPD,PE, DVT, Crohn's disease, chronic opiate use, immunosuppression-common very immunodeficiency, gastroparesis on TPN 18 hours a day, pneumothorax, lower back pain, Behcet's disease, chronic abdominal pain emergency department for evaluation of headache, nausea, dry heaves, posterior back and chest pain, shortness of breath, and syncopal episode. Patient states that she was diagnosed with influenza 1 week prior and her symptoms included sneezing congestion-she states that the symptoms have improved. Patient states she has chronic back pain and had a intrathecal bupivacaine pump inserted 01/2023. She states this was complicated by spinal headaches and she did have a blood patch in 01/2023 with some improvement. She continues to have intermittent headaches and had a another blood patch done proximally 3 weeks prior. She states that she has been off her Eliquis for approximately 1 month and was supposed to restart it but was concerned that it might affect the blood patch and has not restarted the medication. She states that over the past 1-1/2 weeks she is developed headache which feels similar to her spinal headache. She states the headache as a pressure-like pain located on the top of her head in the back of her head, she has been taking Excedrin migraine Fioricet with some improvement however the last 2-3 days the medications are not working. The patient went to an urgent care clinic for evaluation of her headaches. While she was there she states she felt lightheaded as if she was going to pass out. Apparently she then lost consciousness for about 30 seconds and the provider that was taking care of her felt that she may have had a seizure and called 911 and had the patient brought to the emergency department. Patient states she does have a seizure disorder but her seizures are usually abscess on seizures and she has an aura of spacing out prior to having these absent seizures. She states that today's episode felt different than her absent seizures. She states she is having posterior chest pain which is worse with breathing, she feels short of breath and has dyspnea on exertion. She does have a history of DVTs and PEs but is stated above she has been off Eliquis for at least 1 month. She denied fever but has had occasional chills. She denied rhinorrhea sore throat or cough. She complains of shortness of breath and dyspnea on exertion. She states she has had dry heaves. The patient is supposed to be on TPN for gastroparesis 18 hours a day but states that she has not compliant with this treatment. She does have a PowerPort line in her right posterior back area which she uses for TPN, blood draws and for other treatments. Related Data Home Medications Medication Instructions Recorded Confirmed albuterol sulfate 90 mcg/actuation 2 puff inhalation Q4H PRN Wheezing 12/12/20 04/19/23 aerosol inhaler fluticasone furoate 200 1 inh inhalation Q24H 12/12/20 04/19/23 mcg-vilanterol 25 mcg/dose inhalation powder (Breo Ellipta) umeclidinium 62.5 mcg/actuation 1 inh inhalation DAILY 12/12/20 04/19/23 blister powder for inhalation (Incruse Ellipta) diphenhydramine HCl 50 mg/mL 25 mg IV QID PRN Nausea 03/12/21 04/19/23 injection solution ondansetron HCl (PF) 4 mg/2 mL 4 mg IV QID PRN Nausea 03/12/21 04/19/23 injection solution levetiracetam 100 mg/mL oral 700 mg PO BID 08/18/21 04/19/23 solution (Keppra) promethazine 25 mg tablet 25 mg PO QID PRN Nausea And 08/18/21 04/19/23 Vomiting pantoprazole 40 mg tablet,delayed 40 mg PO DAILY PRN ACID REFLEX 02/05/23 04/19/23 release Previous Rx's Medication Instructions Recorded apixaban 5 mg tablet (Eliquis) 5 mg PO BID #60 tabs 02/15/23 naloxegol 12.5 mg tablet (Movantik) 12.5 mg PO DAILY 30 days #30 tabs 04/21/23 lvfyumjxji-rmvanaanzgite-uwfiiaix 1 cap PO TID PRN Post dural 05/26/23 50 mg-300 mg-40 mg capsule puncture headache 10 days #30 caps (Fioricet) hydromorphone 4 mg tablet 4 mg PO BID PRN severe pain (scale 05/26/23 score 7-10) 30 days #60 tabs Allergies Allergy/AdvReac Type Severity Reaction Status Date / Time ciprofloxacin [Cipro] Allergy Unknown Hives Verified 06/30/23 11:20 levofloxacin [Levaquin] Allergy Unknown Hives Verified 06/30/23 11:20 metoclopramide [Reglan] Allergy Unknown Hives Verified 06/30/23 11:20 ondansetron [Zofran] Allergy Unknown Itching Verified 06/30/23 11:20 penicillin V Allergy Unknown Hives Verified 06/30/23 11:20 prochlorperazine Allergy Unknown Shortness Verified 06/30/23 11:20 [From Compazine] of Breath Sulfa (Sulfonamide Allergy Unknown Hives Verified 06/30/23 11:20 Antibiotics) thalidomide [From Thalomid] Allergy Unknown Rash Verified 06/30/23 11:20 haloperidol [From Haldol] Allergy Itching Verified 06/30/23 11:20 Review of Systems 2 Review of Systems: Yes all other systems are reviewed and are negative PMFSH Past Medical History [facility] Narrative: Social history: Patient denies tobacco, alcohol and drug use. Medical History Pulmonary emboli Crohn's disease Chronic, continuous use of opioids Immunosuppression Absence seizure disorder DVT (deep venous thrombosis) Pyloric stenosis Asthma Common variable immunodeficiency Spondylolisthesis, lumbar region Spondylosis of lumbar region without myelopathy or radiculopathy Abdominal pain, chronic, generalized Gastroparesis Spontaneous pneumothorax Chronic pain syndrome Cervicalgia Low back pain Behcet's disease Surgical History History of hernia surgery Family History Family History Father Hairy cell leukemia Social History Social History Household Members: Children Household Members Other:: son Housing: Condominium Do you presently have visiting nurse or other home services: No Alcohol intake: never Patient Tobacco Use Status: Never used Tobacco Smoked in Last 30 Days: No Second Hand Smoke Exposure: No Advance Directives: Yes Advance Directives on File: Yes Advance Directives Date on File: 03/12/21 service: No Current occupational status: unemployed Physical Exam 2 Vital Signs: Vital Signs: Last Vital Signs Temp 98.1 F 07/12/23 21:22 Pulse 82 07/12/23 21:22 Resp 20 07/12/23 21:22 BP 134/80 07/12/23 21:22 Pulse Ox 95 07/12/23 21:22 O2 Del Method Room Air 07/12/23 21:22 BMI result Body Mass Index 27.8 Vital signs were normal Exam: General: Awake, alert in no distress Head: Normocephalic, atraumatic EENT: PERRL, Lids normal, sclera normal, conjunctiva normal, nose normal , ears normal, throat without erythema or exudates Neck: Supple, no adenopathy Lung: breath sounds symmetric, no wheezing, rales or rhonchi Chest: symmetric movement, nontender Heart: regular rate and rhythm, normal S1, S2 no murmurs or rubs Abdomen: soft, non-tender, nondistended, normal bowel sounds Back: Patient does have tenderness palpation over her thoracic and lumbar vertebrae, also has tenderness palpation over the paraspinal muscles in these areas, patient does have a right posterior back TPN line, no tenderness palpation over the insertion point, no significant erythema or increased warmth noted. Extremities: no deformities, moves all extremities symmetrically, no peripheral edema, lower extremities appear to be symmetric in size Neuro: Awake, alert, oriented, normal speech, cranial nerves intact, moves all extremities symmetrically Psych: Pleasant, cooperative Medications Administered Discontinued Medications Generic Name Dose Route Start Last Admin Trade Name Rashawn PRN Reason Stop Dose Admin Diphenhydramine HCl 50 mg 07/12/23 16:26 07/12/23 17:32 Diphenhydramine Hcl 50 Mg/Ml Vial IVPUSH 07/12/23 16:27 50 mg ONCE STA Administration Hydromorphone HCl 2 mg 07/12/23 16:26 07/12/23 17:40 Hydromorphone Hcl 1 Mg/Ml Syringe IVPUSH 07/12/23 16:27 2 mg ONCE STA Administration Protocol Hydromorphone HCl 2 mg 07/12/23 18:56 07/12/23 19:10 Hydromorphone Hcl 2 Mg/Ml Vial IVPUSH 07/12/23 18:57 2 mg ONCE ONE Administration Protocol Sodium Chloride 1,000 mls @ 999 mls/hr 07/12/23 16:26 07/12/23 17:28 Ns IV 07/12/23 17:26 999 mls/hr .Q1H1M STA Administration Iohexol 100 ml 07/12/23 20:24 07/12/23 20:24 Iohexol 350 Mg/Ml 100 Ml Infus..Btl IV 07/12/23 20:25 65 ml ONCE ONE Administration Ondansetron HCl 4 mg 07/12/23 16:26 07/12/23 17:37 Ondansetron Hcl 4 Mg/2 Ml Vial IVPUSH 07/12/23 16:27 4 mg ONCE ONE Administration Medical Decision Making Medical Decision Making MDM Narrative: 42-year-old female history of COPD,PE, DVT, Crohn's disease, chronic opiate use, immunosuppression-common very immunodeficiency, gastroparesis on TPN 18 hours a day, pneumothorax, lower back pain, Behcet's disease, chronic abdominal pain emergency department for evaluation of headache, nausea, dry heaves, posterior back and chest pain, shortness of breath, and syncopal episode. Patient was diagnosed with acute influenza 1 week prior but her symptoms have resolved. Patient had a intrathecal bupivacaine pump placed 01/2023 complicated by spinal headaches with blood patch 01/2023 and 3 weeks prior. Patient has been off her Eliquis for 1 month and was supposed to restart this medication but she did not restart it. Patient went to an urgent care clinic, had a syncopal episode which sounds more consistent with vasovagal event as opposed to seizure. Patient's vital signs were normal. Exam did reveal tenderness palpation of the thoracic and lumbar vertebrae as well as tenderness palpation of the muscles in this region. Following evaluation was ordered: CBC, CMP, quantitative beta-hCG, PTT, lipase, troponin, EKG, CT pulmonary angiogram PE protocol, rn cardiac cath, O2 saturation monitor Patient was treated with the following: Zofran 4 mg IV, Benadryl 50 mg IV, hydromorphone 2 mg IV, normal saline x1 L Differential diagnosis: Includes but is not limited to acute on chronic back pain, pulmonary embolism, myocardial infarction, anemia, electrolyte abnormality, arrhythmia, seizures 21:34 My interpretation patient's laboratory evaluation is as follows: CBC was normal. CMP was normal. PTT is elevated 50.6. Troponin was below detectable limits. Twelve EKG did reveal ST segment depression in 2, AVF, V4 through V6 which was present on previous EKG dated 08/09/2021 but more prominent on today's EKG. The troponin was below detectable limits which is reassuring. CT pulmonary angiogram patient's chest revealed no pulmonary embolism which is reassuring or other acute abnormalities. The patient's headache only minimally improved after the above treatment, she was treated with 2 more doses of hydromorphone 2 mg IV. She also had continued nausea and she was treated with Phenergan 12.5 mg IV. I did stress the importance of restarting her Eliquis and she was given Eliquis 5 mg orally. The patient will be discharged home and advised to follow-up with her pain specialist for further evaluation. Admission/Observation Consideration of admission/observation: Escalation of care including admission/observation considered Lab Data MDM Lab Attestation statement: I reviewed the patient's lab results. 07/12/23 17:26 07/12/23 17:26 Labs: Lab Results 07/12/23 Range/Units 17:26 WBC 8.8 (4.8-10.8) X10*3/uL RBC 4.82 D (4.20-5.50) X10*6/uL Hgb 14.2 D (12.0-16.0) g/dl Hct 41.7 D (37.0-47.0) % MCV 86.5 (80.0-98.0) fL MCH 29.5 (27.0-33.0) pg MCHC 34.1 (31.0-35.0) g/dl RDW 12.6 (11.0-16.0) % Plt Count 258 D (160-400) X10*3/uL MPV 10.5 (9.4-12.3) fL Immature Gran % (Auto) 0.3 (0.0-0.4) % Neut % (Auto) 81.4 H (45-73) % Lymph % (Auto) 13.3 L (20-40) % [place] % (Auto) 4.5 (2-11) % Eos % (Auto) 0.2 (0-4) % Baso % (Auto) 0.3 (0-2) % Lymph # (Auto) 1.2 (1.2-4.9) X10*3/uL [place] # (Auto) 0.4 (0.1-1.2) X10*3/uL Eos # (Auto) 0.0 (0.0-0.4) X10*3/uL Baso # (Auto) 0.0 (0.0-0.2) X10*3/uL Abs Immat Gran (auto) 0.03 (0.00-0.03) X10*3/uL Absolute Neuts (auto) 7.2 (2.0-8.3) x10*3/uL Absolute Nucleated RBC 0.000 (0.0-0.012) X10*3/uL Nucleated RBC % (auto) 0.0 (0.0-0.2) /100WBC APTT 50.6 H (26.0-36.8) SEC Sodium 142 (135-145) mmol/L Potassium 4.2 (3.3-5.1) mmol/L Chloride 106 (96-108) mmol/L Carbon Dioxide 26 (22-29) mmol/L Anion Gap 14 (12-20) BUN 16 (9-16) mg/dL Creatinine 0.70 (0.5-1.4) mg/dL Estim Creat Clear Calc 82.4 Estimated GFR > 60 Random Glucose 99 (60-115) mg/dL Calcium 9.4 D (8.4-10.2) mg/dL Total Bilirubin 0.4 (0.0-1.0) mg/dL AST 14 (5-31) U/L ALT 9 (0-31) U/L Alkaline Phosphatase 66 (39-117) U/L Troponin I High Sens < 2.7 (<3.5-17.0) ng/L Total Protein 7.7 (6.5-8.0) g/dL Albumin 4.8 (3.5-5.0) g/dL Lipase 10 (8-78) U/L Beta HCG, Quant 8 mIU/mL Independent Interpretation I performed an independent interpretation of an: EKG Interpretation: My independent interpretation patient's 12 EKG done at 17:55 hours is as follows: Normal sinus rhythm with a rate of 97, normal MO interval, QRS duration and QTC interval, less than [address] segment depression leads 2, AVF, V4 through V6. Compared to EKG dated 08/17/2021 ST segment depression were present but more prominent on today's EKG. Radiology Impression Discussion of test interpretation with radiology: I have reviewed the radiologist's reading. Radiologist Impression: CT angio chest PE protocol IMPRESSION: 1. No evidence for pulmonary emboli. 2. No focal airspace disease. 3. Chronic dense left pleural thickening possibly related to prior pleurodesis. This could be clinically correlated. 4. VTE: Negative. Dictated By: Enio Lebron MD Critical Care Time Critical Care Time Critical Care Time: Yes Total Critical Care Time: 45 Attestation: Critical Care: The patient was critically ill with a high probability of imminent or life threatening deterioration. I spent greater than 30 minutes of discontinuous time evaluating the patient,delivering critical care at the bedside, discussing and evaluating pertinent data with consultants. Critical care time does not include time spent performing separately billable procedures or teaching. Total time spent performing critical care was 45 minutes. Discharge Plan Discharge Clinical Impression: Posterior chest pain, Headache Patient Disposition: Home, Self-Care Additional Instructions: Your blood work was unremarkable. Your CT pulmonary angiogram revealed no blood clots in your lungs which were reassuring. Continue taking medications as prescribed by your providers. Follow-up with your pain specialist for further management of your headaches in your chest pain/back pain. Follow-up with your doctor in 2 days. Please return to the emergency department if your symptoms get worse or if you develop any symptoms that are concerning to you. Prescriptions: No Action albuterol sulfate 90 mcg/actuation Hfa Aerosol Inhaler 2 puff INHALATION Q4H PRN (Reason: Wheezing) Incruse Ellipta 62.5 mcg/actuation Blister With Device 1 inh INHALATION DAILY fluticasone furoate-vilanterol [Breo Ellipta] 200-25 mcg/dose Blister With Device 1 inh INHALATION Q24H diphenhydramine HCl 50 mg/mL solution 25 mg IV QID PRN (Reason: Nausea) ondansetron HCl (PF) 4 mg/2 mL solution 4 mg IV QID PRN (Reason: Nausea) promethazine 25 mg Tablet 25 mg PO QID PRN (Reason: Nausea And Vomiting) levetiracetam [Keppra] 100 mg/mL Solution 700 mg PO BID Movantik 12.5 mg tablet 12.5 mg PO DAILY 30 Days Qty: 30 0RF Rx Instructions: must be taken on empty stomach; no food 1 hr after or 2-3 hrs before dose pantoprazole 40 mg tablet,delayed release (DR/EC) 40 mg PO DAILY PRN (Reason: ACID REFLEX) Eliquis 5 mg tablet 5 mg PO BID Qty: 60 0RF ttdffbcqzb-ejtxvwlyivhsh-lcyd [Fioricet] 50-300-40 mg capsule 1 cap PO TID PRN (Reason: Post dural puncture headache) 10 Days Qty: 30 0RF hydromorphone 4 mg tablet 4 mg PO BID PRN (Reason: severe pain (scale score 7-10)) 30 Days Qty: 60 0RF Rx Instructions: Partial fill per patient's request only
--- NOTE | 2023-07-12 16:27 | ECG_ITS ---
Test Reason : CHEST PAIN Blood Pressure : / mmHG Vent. Rate : 097 BPM Atrial Rate : 097 BPM P-R Int : 114 ms QRS Dur : 074 ms QT Int : 348 ms P-R-T Axes : 063 033 054 degrees QTc Int : 441 ms Normal sinus rhythm Biatrial enlargement ST & T wave abnormality, consider inferior ischemia Abnormal ECG When compared with ECG of 17-AUG-2021 19:17, Vent. rate has increased BY 38 BPM Referred By: Jesus Ram Electronically Signed By:EBER HUGHES MD
[2023-07-12] MEDS: 0.9 % Sodium Chloride 1,000 ML 999 ML IV (17:28)
[2023-07-12] MEDS: diphenhydrAMINE HCL 50 MG/ML VIAL IVPUSH (17:32)
[2023-07-12 17:33] LABS: MANUAL DIFF FLAG NO
[2023-07-12] MEDS: ondansetron HCL 4 MG/2 ML VIAL IVPUSH (17:37)
[2023-07-12] MEDS: HYDROmorphone HCl 1 MG/ML SYRINGE 2 MG IVPUSH (17:40)
[2023-07-12 17:47] LABS: Basophils Percent Auto 0.3 % (0-2); Eosinophils Percent Auto 0.2 % (0-4); Hematocrit 41.7 % (37.0-47.0); Hemoglobin 14.2 g/dl (12.0-16.0); Imm Gran Abs Auto 0.03 X10*3/uL (0.00-0.03); Imm Gran Pct Auto 0.3 % (0.0-0.4); Lymphocytes Absolute Auto 1.2 X10*3/uL (1.2-4.9); Lymphocytes Percent Auto 13.3 % (20-40); Mean Corpuscular HGB Conc 34.1 g/dl (31.0-35.0); Mean Corpuscular Hemoglobin 29.5 pg (27.0-33.0); Mean Corpuscular Volume 86.5 fL (80.0-98.0); Mean Platelet Volume 10.5 fL (9.4-12.3); Monocytes Absolute Auto 0.4 X10*3/uL (0.1-1.2); Monocytes Percent Auto 4.5 % (2-11); Neutrophils Absolute Auto 7.2 x10*3/uL (2.0-8.3); Neutrophils Percent Auto 81.4 % (45-73); Platelet Count 258 X10*3/uL (160-400); Red Blood Count 4.82 X10*6/uL (4.20-5.50); Red Cell Distribution Width 12.6 % (11.0-16.0); White Blood Count 8.8 X10*3/uL (4.8-10.8)
[2023-07-12 17:52] LABS: Alanine Aminotransferase 9 U/L (0-31); Albumin Level 4.8 g/dL (3.5-5.0); Alkaline Phosphatase 66 U/L (39-117); Anion Gap 14 (12-20); Aspartate Amino Transferase 14 U/L (5-31); Bilirubin Total 0.4 mg/dL (0.0-1.0); Blood Urea Nitrogen 16 mg/dL (9-16); Calcium 9.4 mg/dL (8.4-10.2); Carbon Dioxide 26 mmol/L (22-29); Chloride 106 mmol/L (96-108); Creatinine Clr Calc Pharmacy 82.4; Estimated Glomerular Filt Rate > 60; Glucose Random 99 mg/dL (60-115); Lipase 10 U/L (8-78); Partial Thromboplastin Time 50.6 SEC (26.0-36.8); Potassium 4.2 mmol/L (3.3-5.1); Sodium 142 mmol/L (135-145); Total Protein 7.7 g/dL (6.5-8.0)
[2023-07-12 17:59] VITALS: BP 130/71; PULSE 96; RESP 20; TEMP 36.7; O2SAT 93
[2023-07-12 17:59] LABS: HCG Quantitative 8 mIU/mL
[2023-07-12 18:00] LABS: Troponin-I High Sensitivity < 2.7 ng/L (<3.5-17.0)
[2023-07-12 18:59] VITALS: BP 140/70; PULSE 87; RESP 19; TEMP 36.9; O2SAT 96
[2023-07-12 19:00] VITALS: BP 140/70; PULSE 86; RESP 18; TEMP 36.8; O2SAT 96
[2023-07-12] MEDS: HYDROmorphone HCl 2 MG/ML VIAL IVPUSH ×2 (19:10→21:58)
--- NOTE | 2023-07-12 19:21 | PC.NURSE ---
late entry: pt a&o x4, pleasant, calm, and cooperative. pt changed over to hospital attire. pt placed on bedside monitor, in normal sinus rhythm. seizure precautions in place. labs drawn and sent via previously accessed power port. fluids hung and pt medicated per jul. pt went to CT for PE study. it was discovered that the access tubing not from this facility cannot be used for this imaging. pt brought back to room, will change power port tubing and notify CT staff when pt is ready. plan of care ongoing. report given to PILAR Tovar and PILAR Figueroa.
--- NOTE | 2023-07-12 19:39 | MHC.EDTECH ---
This tech took over care of patient at 1900,hourly rounds and vitals completed,patient is resting comfortably at this time and call khan in reach
--- NOTE | 2023-07-12 20:06 | PC.NURSE ---
pt arrived w power port accessed w adapter that wasn't compatible for CT, power port reassessed via sterile technique w appropriate tubing, flds restarted, CT aware.
[2023-07-12] MEDS: iohexoL 350 MG/ML 100 ML INFUS..BTL IV (20:24)
[2023-07-12 21:22] VITALS: BP 134/80; PULSE 82; RESP 20; TEMP 36.7; O2SAT 95
[2023-07-12] MEDS: Apixaban 5 MG TABLET PO (21:58)
--- NOTE | 2023-07-12 22:58 | PC.NURSE ---
Port flushed with Saline and Heparin as ordered during discharge.
== END 2023-07-12 22:59 | disposition home or self-care (01) ==
PROVIDERS: Emergency Provider Emergency Medicine Emergency Medical Services; PCP Nurse Practitioner Family
DX: R07.89 Other chest pain (principal); R55 Syncope and collapse; R11.2 Nausea with vomiting, unspecified; R51.9 Headache, unspecified; R56.9 Unspecified convulsions; Z79.899 Other long term (current) drug therapy; Z91.148 Patient's other noncompliance with medication regimen for other reason
CPT/HCPCS: 36415; 71275; 80053; 83690; 84484; 84702; 85025; 85730; 93005; 96361; 96374; 96375; 96376; 99284; 99285; J1170; J1200; J2405; J2550; Q9967

== ENCOUNTER → 2023-07-12 16:27 | Outpatient (BNV) | payer MEDICARE, MEDICAID, SELFPAY | PROVIDERS: Emergency Provider Emergency Medicine Emergency Medical Services; PCP Nurse Practitioner Family; Visit Provider Internal Medicine Cardiovascular Disease | DX: R94.31 Abnormal electrocardiogram [ECG] [EKG] (principal) | CPT/HCPCS: 93010 ==

== ENCOUNTER 2023-07-17 17:30 | Emergency (ER) | payer MEDICARE, MEDICAID, SELFPAY ==
--- NOTE | 2023-07-17 17:33 | ECG_ITS ---
Test Reason : chest pain Blood Pressure : / mmHG Vent. Rate : 082 BPM Atrial Rate : 082 BPM P-R Int : 128 ms QRS Dur : 070 ms QT Int : 386 ms P-R-T Axes : 064 032 038 degrees QTc Int : 450 ms Normal sinus rhythm Possible Left atrial enlargement Nonspecific ST and T wave abnormality Abnormal ECG When compared with ECG of 12-JUL-2023 17:55, ST depression in lateral leads Referred By: Abby Carson Electronically Signed By:GABRIELE LEDEZMA
--- NOTE | 2023-07-17 17:38 | ED.CHESTPAIN ---
HPI - Chest Pain General Chief Complaint: Chest Pain Stated Complaint: head, chest, back pain, left sore arm Time Seen by Provider: 07/17/23 17:49 Source: patient, RN notes reviewed and old records reviewed Mode of arrival: ambulatory Limitations: no limitations History of Present Illness HPI narrative: 42-year-old female with very complex past medical history including COPD, PE on Eliquis, Crohn disease, chronic opioid use, history of pneumothorax, gastroparesis on TPN 18 hours a day, chronic pain syndrome, Behcet's disease presents for evaluation of multiple complaints. She was seen here 5 days ago for headache and a syncopal episode at urgent care She was also complaining of chest pain that time She was seen in the ED on 07/12/2023 and had a broad workup was ultimately discharged home. Patient presents today stating ?I am still having headaches, some chest pain, abdominal pain and my left arm is sore. ? Denies any trauma to the area. She has been using all of her medications as prescribed Denies any fevers, chills, cough Patient reports that about 3 and half to 4 weeks ago she had a blood patch placed due to headache since January She is concerned that because she had the flu the following week she ?sneezed too many times and blew out the blood patch. ? Related Data Home Medications Medication Instructions Recorded Confirmed albuterol sulfate 90 mcg/actuation 2 puff inhalation Q4H PRN Wheezing 12/12/20 04/19/23 aerosol inhaler fluticasone furoate 200 1 inh inhalation Q24H 12/12/20 04/19/23 mcg-vilanterol 25 mcg/dose inhalation powder (Breo Ellipta) umeclidinium 62.5 mcg/actuation 1 inh inhalation DAILY 12/12/20 04/19/23 blister powder for inhalation (Incruse Ellipta) diphenhydramine HCl 50 mg/mL 25 mg IV QID PRN Nausea 03/12/21 04/19/23 injection solution ondansetron HCl (PF) 4 mg/2 mL 4 mg IV QID PRN Nausea 03/12/21 04/19/23 injection solution levetiracetam 100 mg/mL oral 700 mg PO BID 08/18/21 04/19/23 solution (Keppra) promethazine 25 mg tablet 25 mg PO QID PRN Nausea And 08/18/21 04/19/23 Vomiting pantoprazole 40 mg tablet,delayed 40 mg PO DAILY PRN ACID REFLEX 02/05/23 04/19/23 release Previous Rx's Medication Instructions Recorded apixaban 5 mg tablet (Eliquis) 5 mg PO BID #60 tabs 02/15/23 naloxegol 12.5 mg tablet (Movantik) 12.5 mg PO DAILY 30 days #30 tabs 04/21/23 hszogrukfi-kfpjwtehfbbep-padzpfyp 1 cap PO TID PRN Post dural 05/26/23 50 mg-300 mg-40 mg capsule puncture headache 10 days #30 caps (Fioricet) hydromorphone 4 mg tablet 4 mg PO BID PRN severe pain (scale 05/26/23 score 7-10) 30 days #60 tabs Allergies Allergy/AdvReac Type Severity Reaction Status Date / Time ciprofloxacin [Cipro] Allergy Unknown Hives Verified 06/30/23 11:20 levofloxacin [Levaquin] Allergy Unknown Hives Verified 06/30/23 11:20 metoclopramide [Reglan] Allergy Unknown Hives Verified 06/30/23 11:20 ondansetron [Zofran] Allergy Unknown Itching Verified 06/30/23 11:20 penicillin V Allergy Unknown Hives Verified 06/30/23 11:20 prochlorperazine Allergy Unknown Shortness Verified 06/30/23 11:20 [From Compazine] of Breath Sulfa (Sulfonamide Allergy Unknown Hives Verified 06/30/23 11:20 Antibiotics) thalidomide [From Thalomid] Allergy Unknown Rash Verified 06/30/23 11:20 haloperidol [From Haldol] Allergy Itching Verified 06/30/23 11:20 Review of Systems Constitutional: Constitutional: Denies body ache(s), Denies chills, Denies fever(s), Denies frequent falls, Reports headache(s) and Reports weakness Eyes: Eyes: Denies blurry vision ENT: Reports headache(s) and Denies sore throat Cardiovascular: Cardiovascular: Reports chest pain and Denies dyspnea Respiratory: Respiratory: Denies cough and Denies dyspnea Gastrointestinal: Gastrointestinal: Reports abdominal pain, Denies nausea and Denies vomiting Musculoskeletal: Musculoskeletal: Denies back pain Integumentary/Breasts: Skin/Breast: Denies rash Neurologic: Denies frequent falls, Reports headache(s) and Reports weakness Psychiatric: Psychiatric: Denies anxiety PMFSH Past Medical History Medical History Pulmonary emboli Crohn's disease Chronic, continuous use of opioids Immunosuppression Absence seizure disorder DVT (deep venous thrombosis) Pyloric stenosis Asthma Common variable immunodeficiency Spondylolisthesis, lumbar region Spondylosis of lumbar region without myelopathy or radiculopathy Abdominal pain, chronic, generalized Gastroparesis Spontaneous pneumothorax Chronic pain syndrome Cervicalgia Low back pain Behcet's disease Surgical History History of hernia surgery Family History Family History Father Hairy cell leukemia Social History Social History Household Members: Children Household Members Other:: son [facility] Do you presently have visiting nurse or other home services: No Unable to assess alcohol history related to: Unknown Alcohol intake: never Patient Tobacco Use Status: Never used Tobacco Smoked in Last 30 Days: No Second Hand Smoke Exposure: No Use of substances other than those prescribed or required for medical reasons: No Advance Directives: Yes Advance Directives on File: Yes Advance Directives Date on File: 04/22/23 service: No Current occupational status: unemployed Physical Exam Vital Signs: Vital Signs: Last Vital Signs Temp 98.1 F 07/17/23 17:39 Pulse 78 07/17/23 20:52 Resp 18 07/17/23 20:52 BP 106/64 07/17/23 20:52 Pulse Ox 96 07/17/23 20:52 O2 Del Method Room Air 07/17/23 20:52 BMI result Body Mass Index 26.8 Const: General: healthy appearing, comfortable, no acute distress, alert and awake Nutritional Appearance: well nourished Orientation/consciousness: patient oriented x3 HEENT: Head: Yes normocephalic and Yes atraumatic Eyes: Eyelids: Yes eyelids normal Conjunctivae: conjunctivae normal Sclerae: sclerae normal Corneas: corneas normal Pupils: Equal, round and reactive pupils present EOM: EOMs intact bilaterally Neck: Neck: Yes full ROM Resp: Effort & Inspection: normal respiratory effort, able to speak in complete sentences, no audible wheezes and not labored Auscultation: clear to auscultation bilaterally Cardio: Rate: regular rate Rhythm: regular rhythm GI: Other: Minimal subjective tenderness to the left upper abdomen without distention or guarding. Inspection: No distended Palpation (GI): Soft to palpation, not firm, Tenderness to palpation present (GI), no guarding and not rigid Auscultation: normoactive bowel sounds Skin: General skin exam: elasticity normal Neuro: General: patient oriented x3 Cranial nerves: Yes CN's II-XII intact bilaterally, Yes Equal, round and reactive pupils present and Yes Bilaterally intact EOM present Cognition (Neuro): normal cognition Course Course Course Narrative: This is an RME: Additional HPI, ROS, PE not included below will be deferred to primary provider. Patient is a 42 year old female who presents to the emergency department, Reports previously diagnosed with influenza, went to urgent care Tuesday of this past week reports having had a syncopal episode followed by tonic-clonic seizure and was brought to this emergency department for evaluation. Currently she is reporting intermittent headache, neck pain, chest pain, L arm pain x 5 days, progressively worsening. Plan: Labs, EKG, viral testing Medications Administered Discontinued Medications Generic Name Dose Route Start Last Admin Trade Name Freq PRN Reason Stop Dose Admin Hydromorphone HCl 2 mg 07/17/23 18:11 07/17/23 18:38 Hydromorphone Hcl 2 Mg/Ml Vial IVPUSH 07/17/23 18:12 2 mg ONCE ONE Administration Protocol Sodium Chloride 1,000 mls @ 999 mls/hr 07/17/23 18:15 07/17/23 19:33 Ns IV 07/17/23 19:15 Infused .Q1H1M ANNA Infusion Promethazine HCl 12.5 mg/ 50.5 mls @ 202 mls/hr 07/17/23 18:11 07/17/23 19:03 Sodium Chloride IV 07/17/23 18:12 Infused ONCE ONE Infusion Medical Decision Making Medical Decision Making [facility] Narrative: 42-year-old female with history as documented above presents for evaluation of headache and chest pain primarily. Plan for basic labs, EKG. I reviewed her workup from [address] angiography of the chest which not show any evidence of thromboembolic disease. I have a low suspicion for PE. The patient's vital signs are currently stable. Will treat the patient's pain with fluids, Dilaudid and Phenergan. Further workup as indicated Differential Diagnosis Differential Diagnoses: The differential diagnosis associated with the presentation includes Chronic pain syndrome Acute headache Spinal headache ACS Lab Data 07/17/23 17:54 07/17/23 17:54 Labs: Lab Results 07/17/23 Range/Units 17:54 WBC 5.6 (4.8-10.8) X10*3/uL RBC 4.41 (4.20-5.50) X10*6/uL Hgb 13.4 (12.0-16.0) g/dl Hct 39.3 (37.0-47.0) % MCV 89.1 (80.0-98.0) fL MCH 30.4 (27.0-33.0) pg MCHC 34.1 (31.0-35.0) g/dl RDW 13.0 (11.0-16.0) % Plt Count 226 (160-400) X10*3/uL MPV 10.2 (9.4-12.3) fL Immature Gran % (Auto) 0.2 (0.0-0.4) % Neut % (Auto) 56.7 (45-73) % Lymph % (Auto) 31.7 (20-40) % Nicollet % (Auto) 8.2 (2-11) % Eos % (Auto) 2.3 (0-4) % Baso % (Auto) 0.9 (0-2) % Lymph # (Auto) 1.8 (1.2-4.9) X10*3/uL Nicol[place] # (Auto) 0.5 (0.1-1.2) X10*3/uL Eos # (Auto) 0.1 (0.0-0.4) X10*3/uL Baso # (Auto) 0.1 (0.0-0.2) X10*3/uL Abs Immat Gran (auto) 0.01 (0.00-0.03) X10*3/uL Absolute Neuts (auto) 3.2 (2.0-8.3) x10*3/uL Absolute Nucleated RBC 0.000 (0.0-0.012) X10*3/uL Nucleated RBC % (auto) 0.0 (0.0-0.2) /100WBC PT 11.9 (11.1-13.3) SEC INR 1.0 (0.9-1.1) Sodium 142 (135-145) mmol/L Potassium 4.1 (3.3-5.1) mmol/L Chloride 106 (96-108) mmol/L Carbon Dioxide 27 (22-29) mmol/L Anion Gap 13 (12-20) BUN 16 (9-16) mg/dL Creatinine 0.88 (0.5-1.4) mg/dL Estim Creat Clear Calc 67.2 Estimated GFR > 60 Random Glucose 97 (60-115) mg/dL Calcium 9.3 (8.4-10.2) mg/dL Total Bilirubin 0.2 (0.0-1.0) mg/dL AST 17 (5-31) U/L ALT 11 (0-31) U/L Alkaline Phosphatase 63 (39-117) U/L Troponin I High Sens < 2.7 (<3.5-17.0) ng/L Total Protein 7.5 (6.5-8.0) g/dL Albumin 4.7 (3.5-5.0) g/dL Influenza Type A (PCR) NEGATIVE (Negative) Influenza Type B (PCR) NEGATIVE (Negative) RSV RNA Qual (PCR) NEGATIVE (Negative) SARS-CoV-2 RNA (RT-PCR) NEGATIVE (Negative) Independent Interpretation I performed an independent interpretation of an: EKG (Normal sinus rhythm with a rate of [address] segment elevations or depressions. When compared to previous from 5 days ago, ST impressions are improved on current exam) Discharge Plan Discharge Clinical Impression: Headache, Chest pain Patient Disposition: Home, Self-Care Instructions: Chest Pain (ED), Acute Headache (ED) Additional Instructions: Your workup in the ER today was reassuring. This includes your blood work as well as your EKG. I recommend that you resume all of your home medications as prescribed I recommend that you follow-up with your outpatient providers Return for new or worsening symptoms Prescriptions: No Action albuterol sulfate 90 mcg/actuation Hfa Aerosol Inhaler 2 puff INHALATION Q4H PRN (Reason: Wheezing) Incruse Ellipta 62.5 mcg/actuation Blister With Device 1 inh INHALATION DAILY fluticasone furoate-vilanterol [Breo Ellipta] 200-25 mcg/dose Blister With Device 1 inh INHALATION Q24H diphenhydramine HCl 50 mg/mL solution 25 mg IV QID PRN (Reason: Nausea) ondansetron HCl (PF) 4 mg/2 mL solution 4 mg IV QID PRN (Reason: Nausea) promethazine 25 mg Tablet 25 mg PO QID PRN (Reason: Nausea And Vomiting) levetiracetam [Keppra] 100 mg/mL Solution 700 mg PO BID Movantik 12.5 mg tablet 12.5 mg PO DAILY 30 Days Qty: 30 0RF Rx Instructions: must be taken on empty stomach; no food 1 hr after or 2-3 hrs before dose pantoprazole 40 mg tablet,delayed release (DR/EC) 40 mg PO DAILY PRN (Reason: ACID REFLEX) Eliquis 5 mg tablet 5 mg PO BID Qty: 60 0RF kvnaktzfpz-jjcjcwtxgcjkd-fdmq [Fioricet] 50-300-40 mg capsule 1 cap PO TID PRN (Reason: Post dural puncture headache) 10 Days Qty: 30 0RF hydromorphone 4 mg tablet 4 mg PO BID PRN (Reason: severe pain (scale score 7-10)) 30 Days Qty: 60 0RF Rx Instructions: Partial fill per patient's request only
[2023-07-17 17:39] VITALS: BP 126/71; PULSE 75; RESP 18; TEMP 36.7; O2SAT 97; BMI 26.8
[2023-07-17 17:59] LABS: MANUAL DIFF FLAG NO
[2023-07-17 18:05] LABS: Prothrombin Time 11.9 SEC (11.1-13.3)
[2023-07-17 18:15] LABS: Alanine Aminotransferase 11 U/L (0-31); Albumin Level 4.7 g/dL (3.5-5.0); Alkaline Phosphatase 63 U/L (39-117); Anion Gap 13 (12-20); Aspartate Amino Transferase 17 U/L (5-31); Bilirubin Total 0.2 mg/dL (0.0-1.0); Blood Urea Nitrogen 16 mg/dL (9-16); Calcium 9.3 mg/dL (8.4-10.2); Carbon Dioxide 27 mmol/L (22-29); Chloride 106 mmol/L (96-108); Creatinine Clr Calc Pharmacy 67.2; Estimated Glomerular Filt Rate > 60; Glucose Random 97 mg/dL (60-115); Potassium 4.1 mmol/L (3.3-5.1); Sodium 142 mmol/L (135-145); Total Protein 7.5 g/dL (6.5-8.0)
[2023-07-17 18:17] LABS: Basophils Absolute Auto 0.1 X10*3/uL (0.0-0.2); Basophils Percent Auto 0.9 % (0-2); Eosinophils Absolute Auto 0.1 X10*3/uL (0.0-0.4); Eosinophils Percent Auto 2.3 % (0-4); Hematocrit 39.3 % (37.0-47.0); Hemoglobin 13.4 g/dl (12.0-16.0); Imm Gran Abs Auto 0.01 X10*3/uL (0.00-0.03); Imm Gran Pct Auto 0.2 % (0.0-0.4); Lymphocytes Absolute Auto 1.8 X10*3/uL (1.2-4.9); Lymphocytes Percent Auto 31.7 % (20-40); Mean Corpuscular HGB Conc 34.1 g/dl (31.0-35.0); Mean Corpuscular Hemoglobin 30.4 pg (27.0-33.0); Mean Corpuscular Volume 89.1 fL (80.0-98.0); Mean Platelet Volume 10.2 fL (9.4-12.3); Monocytes Absolute Auto 0.5 X10*3/uL (0.1-1.2); Monocytes Percent Auto 8.2 % (2-11); Neutrophils Absolute Auto 3.2 x10*3/uL (2.0-8.3); Neutrophils Percent Auto 56.7 % (45-73); Platelet Count 226 X10*3/uL (160-400); Red Blood Count 4.41 X10*6/uL (4.20-5.50); White Blood Count 5.6 X10*3/uL (4.8-10.8)
[2023-07-17 18:23] LABS: Troponin-I High Sensitivity < 2.7 ng/L (<3.5-17.0)
[2023-07-17] MEDS: 0.9 % Sodium Chloride 1,000 ML 999 ML IV (18:35)
[2023-07-17 18:38] VITALS: RESP 16
[2023-07-17] MEDS: HYDROmorphone HCl 2 MG/ML VIAL IVPUSH (18:38)
--- NOTE | 2023-07-17 18:40 | PC.NURSE ---
port accessed from prior visit, 1L NS running, medicated per JUL.
[2023-07-17 18:42] LABS: Influenza A PCR NEGATIVE (Negative); Influenza B PCR NEGATIVE (Negative); Resp Syncy Virus RNA Qual PCR NEGATIVE (Negative); SARS COV2 PCR INHOUSE NEGATIVE (Negative)
--- NOTE | 2023-07-17 19:03 | PC.NURSE ---
assumed care of patient at 1900
[2023-07-17 20:52] VITALS: BP 106/64; PULSE 78; RESP 18; O2SAT 96
[2023-07-17] MEDS: Heparin Sodium,Porcine Flush 50 UNITS/5 ML SYRINGE IVFLUSH (21:18)
== END 2023-07-17 21:17 | disposition home or self-care (01) ==
PROVIDERS: Nurse Practitioner Family; Emergency Provider Emergency Medicine; PCP Nurse Practitioner Family
DX: R07.89 Other chest pain (principal); G89.4 Chronic pain syndrome; R51.9 Headache, unspecified; M54.50 Low back pain, unspecified; M79.602 Pain in left arm; Z86.711 Personal history of pulmonary embolism; Z20.822 Contact with and (suspected) exposure to COVID-19; Z11.52 Encounter for screening for COVID-19; Z79.01 Long term (current) use of anticoagulants; Z79.899 Other long term (current) drug therapy
CPT/HCPCS: 0241U; 36415; 80053; 84484; 85025; 85610; 93005; 96361; 96374; 96375; 99284; 99285; J1170; J1642; J2550

== ENCOUNTER → 2023-07-17 17:33 | Outpatient (BNV) | payer MEDICARE, MEDICAID, SELFPAY | PROVIDERS: Emergency Provider Emergency Medicine; PCP Nurse Practitioner Family; Visit Provider Internal Medicine | DX: R07.9 Chest pain, unspecified (principal) | CPT/HCPCS: 93010 ==

== ENCOUNTER 2023-07-20 10:58 | Outpatient (AMB) | payer MEDICARE, MEDICAID, SELFPAY ==
--- NOTE | 2023-07-20 11:00 | MHC.OFFVIS ---
Intake Vital Signs 07/20/23 11:42 Height 5 ft Weight 136 lb BMI 26.6 BP 122/64 Blood Pressure Location Lt brachial Position Sitting Respiration 14 Pulse 99 Pulse Source Pulse Oximeter Pulse Oximetry (%) 98 Oxygen Delivery Method Room Air Intake Visit Reasons: ITDD Refill & Pill Count/ LVM Intake Note: Patient comes in for intrathecal medication refill and pill count. reports pain 11/29. Allergies ciprofloxacin [Cipro] Allergy (Unknown, Verified 07/20/23 11:42) Hives levofloxacin [Levaquin] Allergy (Unknown, Verified 07/20/23 11:42) Hives metoclopramide [Reglan] Allergy (Unknown, Verified 07/20/23 11:42) Hives ondansetron [Zofran] Allergy (Unknown, Verified 07/20/23 11:42) Itching penicillin V Allergy (Unknown, Verified 07/20/23 11:42) Hives prochlorperazine [From Compazine] Allergy (Unknown, Verified 07/20/23 11:42) Shortness of Breath Sulfa (Sulfonamide Antibiotics) Allergy (Unknown, Verified 07/20/23 11:42) Hives thalidomide [From Thalomid] Allergy (Unknown, Verified 07/20/23 11:42) Rash haloperidol [From Haldol] Allergy (Verified 07/20/23 11:42) Itching HPI HPI Comments History of Present Illness Details [place] in the office today for the follow-up and pill count. She reports that she had a lucid interval without headaches but then she had a severe flu and due to this she had her headaches started again. It is not clear whether her headache is related to the flu or complications of this condition or it is just her post dural puncture headache started to get exacerbated again because of coughing and sneezing and increasing of intra dural pressure with the leak appearing again. In any case she reports her headache is moderate to mild however she reports that it is being exacerbated when she stands up or move around. I explained to her that no more blood patches I will be doing to her. I explained also to her that I will request a neurosurgical assistance if her headache is becomes severe and or unbearable. Pill count today she supposed to have 8 pills in her possession. She presented with 27 pills. Therefore her pill count is correct. I will continue the prescription see as below. The refill is as below. She reports good results of the intrathecal bupivacaine I DDD. After the administration of the bolus dose spread out in time over the 40 minutes she reported no longer dizziness and lightheadedness. She already reports that intrathecal bupivacaine PTM does help her pain better than hydromorphone oral. Her postoperative period got complicated by postdural puncture headache. She went to ER with severe positional headache, nausea and vomiting on 02/13/23 where she was seen by me and recommended to try a conservative treatment of the headache mainly because of the difficulty with vascular access and therefore difficulty with performing epidural blood patch (She has a h/o 27 left and right supclavian placed portocaths for the administration of TPN and she has IVC portocath through which she receives Her TPN). Unfortunately conservative treatment was not successful and she went for epidural blood patch with right radial a-line placement and sterile blood obtained in the amount of 22 mls from the a-line and injected into the left L1- L2 interlaminar epidural space with contrast visualization of the intrathecal catheter which enters the intrathecal space at the right side of the L1- L2 intrathecal space. After blood patch her headache improved however today she came and reported that moderate positional headache returned however no nausea and vomiting. I again recommended conservative management: continual bed rest, minimal ambulation, caffeinated bevereges and fioricet prn. Prior: [place] is 41 years old female who is suffering from multiple medical conditions including Bencet disease, Crohn's disease, she is immunocompromised.? Her pain involves chronic abdominal pain in lower back pain.? She also has a chronic pelvic pain.? She was under might exacerbation on chronic oral opioid therapy for 3 years.? She was approved by psychological evaluation in the past for the neuromodulation.. [facility] Medical History Pulmonary emboli Crohn's disease Chronic, continuous use of opioids Immunosuppression Absence seizure disorder DVT (deep venous thrombosis) Pyloric stenosis Asthma Common variable immunodeficiency Spondylolisthesis, lumbar region Spondylosis of lumbar region without myelopathy or radiculopathy Abdominal pain, chronic, generalized Gastroparesis Spontaneous pneumothorax Chronic pain syndrome Cervicalgia Low back pain Behcet's disease Surgical History History of hernia surgery Family History Father Hairy cell leukemia Social History Household Members: Children Household Members Other:: son Housing: Condominium Do you presently have visiting nurse or other home services: No Unable to assess alcohol history related to: Unknown Alcohol intake: never Patient Tobacco Use Status: Never used Tobacco Second Hand Smoke Exposure: No Advance Directives Date on File: 04/22/23 service: No Current occupational status: unemployed Review of Systems Const All systems reviewed & are unremarkable except as noted in HPI and below Physical Exam Const General: cooperative, no acute distress and alert Orientation/consciousness: patient oriented x3 HEENT Head: Yes normocephalic and Yes atraumatic Ears: hearing grossly normal bilaterally Eyes General: appearance normal, both eyes and all related structures Alignment and Position: alignment normal and position normal Periorbital: periorbital findings normal Eyelids: Yes eyelids normal Pupils: Equal, round and reactive pupils present, pupils equal and not dilated EOM: EOMs intact bilaterally Direct Ophthalmoscopy: no photophobia Neck Neck: Yes normal visual inspection and Yes no JVD Resp Effort & Inspection: normal respiratory effort, able to speak in complete sentences and no audible wheezes Cardio Jugular venous distension: no JVD GI Inspection: Yes incision and Yes scar Back/Spine/Pelvis Cervical Spine: normal cervical lordosis Thoracic/Lumbar Spine: thoracic and lumbar spine normal to inspection Neuro General: patient oriented x3, gait normal and moves all extremities Cranial nerves: Yes Equal, round and reactive pupils present Assessment & Plan Assessment & Plan (1) Cervicalgia: Code(s): M54.2 - Cervicalgia Plan: (2) Behcet's disease: Code(s): M35.2 - Behcet's disease Plan: (3) Crohn's disease: Code(s): K50.90 - Crohn's disease, unspecified, without complications Qualifiers: Digestive disease complication type: other complication Gastrointestinal tract location: unspecified location Qualified Code(s): K50.918 - Crohn's disease, unspecified, with other complication (4) Low back pain: Code(s): M54.5 - Low back pain (5) Chronic pain syndrome: Code(s): G89.4 - Chronic pain syndrome (6) Chronic, continuous use of opioids: Code(s): F11.90 - Opioid use, unspecified, uncomplicated (7) Chronic abdominal pain: Code(s): R10.9 - Unspecified abdominal pain; G89.29 - Other chronic pain Plan: ? Intrathecal pump refill. The patient came today in the office for the change of the medication in the pain pump. The name and date of were verified and informed consent was obtained for the procedure. The pump was interrogated and the residual amount of fluid was found to be 8.5 mL. SHE WAS POSITIONED prone on the bed AND THE AREA OF THE INTRATHECAL PUMP WAS PREPPED WITH CHLORAPREP. The fenestrated drape was sterilely applied over the area of the pump. Sterile gloves were worn and of the aspiration system was assembled containing 2 in 22 gauge noncoring needle, the needle was connected to extension tubing which was connected to the 20 cc sterile syringe. The pain pump was palpated under the skin in the patient's left buttock area. The needle was inserted through the skin and the central plug of the pain pump and fluid was aspirated. The clear fluid was going into the syringe the total amount of the fluid was 8.0 mL .. After that a new batch? of medication was obtained which was containing bupivacaine in the new concentration of 28 milligrams/mL.. The admixture was made in 20 cc syringe prepared by [facility] compounding pharmacy. The syringe was connected to the bacterial filter, and then connected to the extension tubing. After that the medication in the syringe was slowly instilled into the pump with aspirations at 15 and 5 cc joiner.? The pump was reprogrammed continuous dose of 1.4 mg a day as well as for possible administrations per day of bupivacaine 1.9 mg every 4 hours 4 times a day. A bridge bolus with 2.1 mg per day for next 56 hours was given to the patient. (8) Postdural puncture headache: Code(s): G97.1 - Other reaction to spinal and lumbar puncture (9) Crohn's disease: Code(s): K50.90 - Crohn's disease, unspecified, without complications (10) Immunosuppression: Code(s): D84.9 - Immunodeficiency, unspecified (11) Spondylolisthesis, lumbar region: Code(s): M43.16 - Spondylolisthesis, lumbar region Plan: (12) Abdominal pain: Code(s): R10.9 - Unspecified abdominal pain Qualifiers: Abdominal location: lower abdomen, unspecified Qualified Code(s): R10.30 - Lower abdominal pain, unspecified Plan: Plan Next appointment for the Dilaudid pill count and pump refill will be scheduled on 07/20/2023. New medication will be ordered with bupivacaine concentration of 28 mg per mL. This will double her refill time. Medications: Refilled hydromorphone Partial fill per patient's request only 4 mg PO BID PRN 60 tabs 0RF severe pain (scale score 7-10) 30 days F11.90 - Opioid use, unspecified, uncomplicated, G89.29 - Other chronic pain, G89.4 - Chronic pain syndrome, R10.9 - Unspecified abdominal pain Patient Instructions: Next time I will see the patient for the pill count in one month. Next time I will do pill count and pump refill in 2 months. Coding Level of Care Code Est Pt Level 3 (67049) Procedure Only Diagnoses Cervicalgia M54.2 Behcet's disease M35.2 Crohn's disease K50.918 Digestive disease complication type: other complication Gastrointestinal tract location: unspecified location Low back pain M54.5 Chronic pain syndrome G89.4 Chronic, continuous use of opioids F11.90 Chronic abdominal pain R10.9; G89.29 Postdural puncture headache G97.1 Immunosuppression D84.9 Spondylolisthesis, lumbar region M43.16 Lower abdominal pain R10.30 Abdominal location: lower abdomen, unspecified
[2023-07-20 11:42] VITALS: BP 122/64; PULSE 99; RESP 14; O2SAT 98; BMI 26.6
== END 2023-07-20 11:27 | disposition home or self-care (01) ==
PROVIDERS: PCP Nurse Practitioner Family; Visit Provider Anesthesiology
DX: M54.2 Cervicalgia (principal); M35.2 Behcet's disease; K50.918 Crohn's disease, unspecified, with other complication; M54.50 Low back pain, unspecified; G89.4 Chronic pain syndrome; Z79.891 Long term (current) use of opiate analgesic; R10.9 Unspecified abdominal pain; G89.29 Other chronic pain; G97.1 Other reaction to spinal and lumbar puncture; D84.9 Immunodeficiency, unspecified; M43.16 Spondylolisthesis, lumbar region; R10.30 Lower abdominal pain, unspecified
CPT/HCPCS: 62370; 99213

== ENCOUNTER → 2023-07-20 10:58 | Outpatient (BNVA) | payer MEDICARE, MEDICAID, SELFPAY | PROVIDERS: PCP Nurse Practitioner Family; Visit Provider Anesthesiology | DX: M54.2 Cervicalgia (principal); M35.2 Behcet's disease; M54.50 Low back pain, unspecified; M43.16 Spondylolisthesis, lumbar region; R10.30 Lower abdominal pain, unspecified; K50.918 Crohn's disease, unspecified, with other complication; F11.20 Opioid dependence, uncomplicated; G97.1 Other reaction to spinal and lumbar puncture; G89.29 Other chronic pain; D84.9 Immunodeficiency, unspecified | CPT/HCPCS: 62370; 99212 ==

== ENCOUNTER 2023-08-17 11:33 | Outpatient (AMB) | payer MEDICARE, MEDICAID, SELFPAY ==
[2023-08-17 12:58] VITALS: BP 122/70; PULSE 91; RESP 14; O2SAT 95; BMI 26.6
--- NOTE | 2023-08-17 12:58 | MHC.OFFVIS ---
Intake Vital Signs 08/17/23 12:58 Height 5 ft Weight 136 lb BMI 26.6 BP 122/70 Blood Pressure Location Lt brachial Position Sitting Respiration 14 Pulse 91 Pulse Source Pulse Oximeter Pulse Oximetry (%) 95 Oxygen Delivery Method Room Air Intake Visit Reasons: PILL COUNT/random UDS Intake Note: Patient comes in for pill count and random UDS. Reports pain 7/10. Allergies ciprofloxacin [Cipro] Allergy (Unknown, Verified 08/17/23 13:00) Hives levofloxacin [Levaquin] Allergy (Unknown, Verified 08/17/23 13:00) Hives metoclopramide [Reglan] Allergy (Unknown, Verified 08/17/23 13:00) Hives ondansetron [Zofran] Allergy (Unknown, Verified 08/17/23 13:00) Itching penicillin V Allergy (Unknown, Verified 08/17/23 13:00) Hives prochlorperazine [From Compazine] Allergy (Unknown, Verified 08/17/23 13:00) Shortness of Breath Sulfa (Sulfonamide Antibiotics) Allergy (Unknown, Verified 08/17/23 13:00) Hives thalidomide [From Thalomid] Allergy (Unknown, Verified 08/17/23 13:00) Rash haloperidol [From Haldol] Allergy (Verified 08/17/23 13:00) Itching HPI HPI Comments History of Present Illness Details Brooklyn in the office today for the follow-up and pill count. She reports today pain 7/10, mostly on the account of the headache she has almost 3-4 days out of the week. She still claims that the headache is positional. I would have to presume that this is a post dural puncture headache. I explained to her that no more blood patches I will be doing to her. I explained also to her that I will request a neurosurgical assistance if her headache is becomes severe and or unbearable. I explained to her that we would probably need to go for MRI of the lumbar spine to document collection of the CSF in the vicinity of the dura of the lumbar spine. Pill count today she supposed to have 18 in her possession. She presented with 31 pills. Therefore her pill count is correct. I will continue the prescription see as below. She reports good results of the intrathecal bupivacaine I DDD. After the administration of the bolus dose spread out in time over the 40 minutes she reported no longer dizziness and lightheadedness. She already reports that intrathecal bupivacaine PTM does help her pain better than hydromorphone oral. Her postoperative period got complicated by postdural puncture headache. She went to ER with severe positional headache, nausea and vomiting on 02/13/23 where she was seen by me and recommended to try a conservative treatment of the headache mainly because of the difficulty with vascular access and therefore difficulty with performing epidural blood patch (She has a h/o 27 left and right supclavian placed portocaths for the administration of TPN and she has IVC portocath through which she receives Her TPN). Unfortunately conservative treatment was not successful and she went for epidural blood patch with right radial a-line placement and sterile blood obtained in the amount of 22 mls from the a-line and injected into the left L1- L2 interlaminar epidural space with contrast visualization of the intrathecal catheter which enters the intrathecal space at the right side of the L1- L2 intrathecal space. After blood patch her headache improved however today she came and reported that moderate positional headache returned however no nausea and vomiting. I again recommended conservative management: continual bed rest, minimal ambulation, caffeinated bevereges and fioricet prn. Prior: Brooklyn is 41 years old female who is suffering from multiple medical conditions including Bencet disease, Crohn's disease, she is immunocompromised.? Her pain involves chronic abdominal pain in lower back pain.? She also has a chronic pelvic pain.? She was under might exacerbation on chronic oral opioid therapy for 3 years.? She was approved by psychological evaluation in the past for the neuromodulation.. [facility] Medical History Pulmonary emboli Crohn's disease Chronic, continuous use of opioids Immunosuppression Absence seizure disorder DVT (deep venous thrombosis) Pyloric stenosis Asthma Common variable immunodeficiency Spondylolisthesis, lumbar region Spondylosis of lumbar region without myelopathy or radiculopathy Abdominal pain, chronic, generalized Gastroparesis Spontaneous pneumothorax Chronic pain syndrome Cervicalgia Low back pain Behcet's disease Surgical History History of hernia surgery Family History Father Hairy cell leukemia Social History Household Members: Children Household Members Other:: son Housing: Condominium Do you presently have visiting nurse or other home services: No Unable to assess alcohol history related to: Unknown Alcohol intake: never Patient Tobacco Use Status: Never used Tobacco Second Hand Smoke Exposure: No Advance Directives Date on File: 04/22/23 service: No Current occupational status: unemployed Review of Systems Const All systems reviewed & are unremarkable except as noted in HPI and below Physical Exam Vital Signs: Last Vital Signs Pulse 91 08/17/23 12:58 Resp 14 08/17/23 12:58 BP 122/70 08/17/23 12:58 Pulse Ox 95 08/17/23 12:58 Oxygen Delivery Method Room Air 08/17/23 12:58 BMI result Body Mass Index 26.6 Const General: cooperative, no acute distress and alert Orientation/consciousness: patient oriented x3 HEENT Head: Yes normocephalic and Yes atraumatic Ears: hearing grossly normal bilaterally Eyes General: appearance normal, both eyes and all related structures Alignment and Position: alignment normal and position normal Periorbital: periorbital findings normal Eyelids: Yes eyelids normal Pupils: Equal, round and reactive pupils present, pupils equal and not dilated EOM: EOMs intact bilaterally Direct Ophthalmoscopy: no photophobia Neck Neck: Yes normal visual inspection and Yes no JVD Resp Effort & Inspection: normal respiratory effort, able to speak in complete sentences and no audible wheezes Cardio Jugular venous distension: no JVD GI Inspection: Yes incision and Yes scar Back/Spine/Pelvis Cervical Spine: normal cervical lordosis Thoracic/Lumbar Spine: thoracic and lumbar spine normal to inspection Neuro General: patient oriented x3, gait normal and moves all extremities Cranial nerves: Yes Equal, round and reactive pupils present Assessment & Plan Assessment & Plan (1) Cervicalgia: Code(s): M54.2 - Cervicalgia Plan: (2) Behcet's disease: Code(s): M35.2 - Behcet's disease Plan: (3) Crohn's disease: Code(s): K50.90 - Crohn's disease, unspecified, without complications Qualifiers: Digestive disease complication type: other complication Gastrointestinal tract location: unspecified location Qualified Code(s): K50.918 - Crohn's disease, unspecified, with other complication (4) Low back pain: Code(s): M54.5 - Low back pain (5) Chronic pain syndrome: Code(s): G89.4 - Chronic pain syndrome (6) Chronic, continuous use of opioids: Code(s): F11.90 - Opioid use, unspecified, uncomplicated (7) Chronic abdominal pain: Code(s): R10.9 - Unspecified abdominal pain; G89.29 - Other chronic pain (8) Postdural puncture headache: Code(s): G97.1 - Other reaction to spinal and lumbar puncture (9) Crohn's disease: Code(s): K50.90 - Crohn's disease, unspecified, without complications (10) Immunosuppression: Code(s): D84.9 - Immunodeficiency, unspecified (11) Spondylolisthesis, lumbar region: Code(s): M43.16 - Spondylolisthesis, lumbar region Plan: (12) Abdominal pain: Code(s): R10.9 - Unspecified abdominal pain Qualifiers: Abdominal location: lower abdomen, unspecified Qualified Code(s): R10.30 - Lower abdominal pain, unspecified Plan: Plan Next appointment for the Dilaudid pill count and pump refill will be scheduled o in August Discussion about the headache see as above. Medications: Refilled hydromorphone Partial fill per patient's request only 4 mg PO BID PRN 60 tabs 0RF severe pain (scale score 7-10) 30 days F11.90 - Opioid use, unspecified, uncomplicated, G89.29 - Other chronic pain, G89.4 - Chronic pain syndrome, R10.9 - Unspecified abdominal pain Coding Level of Care Code Est Pt Level 3 (13105) Diagnoses Cervicalgia M54.2 Behcet's disease M35.2 Crohn's disease K50.918 Digestive disease complication type: other complication Gastrointestinal tract location: unspecified location Low back pain M54.5 Chronic pain syndrome G89.4 Chronic, continuous use of opioids F11.90 Chronic abdominal pain R10.9; G89.29 Postdural puncture headache G97.1 Immunosuppression D84.9 Spondylolisthesis, lumbar region M43.16 Lower abdominal pain R10.30 Abdominal location: lower abdomen, unspecified
== END 2023-08-17 11:56 | disposition home or self-care (01) ==
PROVIDERS: PCP Nurse Practitioner Family; Visit Provider Anesthesiology
DX: G89.4 Chronic pain syndrome (principal); M54.2 Cervicalgia; M35.2 Behcet's disease; Z79.891 Long term (current) use of opiate analgesic; K50.918 Crohn's disease, unspecified, with other complication; M54.50 Low back pain, unspecified; R10.9 Unspecified abdominal pain; G89.29 Other chronic pain; G97.1 Other reaction to spinal and lumbar puncture; D84.9 Immunodeficiency, unspecified; M43.16 Spondylolisthesis, lumbar region; R10.30 Lower abdominal pain, unspecified
CPT/HCPCS: 99213

== ENCOUNTER → 2023-08-17 11:33 | Outpatient (BNVA) | payer MEDICARE, MEDICAID, SELFPAY | PROVIDERS: PCP Nurse Practitioner Family; Visit Provider Anesthesiology ==

== ENCOUNTER 2023-08-22 16:06 | Emergency (ER) | payer MEDICARE, MEDICAID, SELFPAY ==
[2023-08-22 16:43] VITALS: BP 141/71; PULSE 88; RESP 16; TEMP 36.6; O2SAT 98; BMI 26.8
--- NOTE | 2023-08-22 16:57 | ED.GENADULT ---
HPI - General Adult General Chief complaint: Abdominal Pain Stated complaint: abd pain Time Seen by Provider: 08/22/23 18:54 Related Data Home Medications ?Medication ?Instructions ?Recorded ?Confirmed albuterol sulfate 90 mcg/actuation 2 puff inhalation Q4H PRN Wheezing 12/12/20 04/19/23 aerosol inhaler fluticasone furoate 200 1 inh inhalation Q24H 12/12/20 04/19/23 mcg-vilanterol 25 mcg/dose inhalation powder (Breo Ellipta) umeclidinium 62.5 mcg/actuation 1 inh inhalation DAILY 12/12/20 04/19/23 blister powder for inhalation (Incruse Ellipta) diphenhydramine HCl 50 mg/mL 25 mg IV QID PRN Nausea 03/12/21 04/19/23 injection solution ondansetron HCl (PF) 4 mg/2 mL 4 mg IV QID PRN Nausea 03/12/21 04/19/23 injection solution levetiracetam 100 mg/mL oral 700 mg PO BID 08/18/21 04/19/23 solution (Keppra) promethazine 25 mg tablet 25 mg PO QID PRN Nausea And 08/18/21 04/19/23 Vomiting pantoprazole 40 mg tablet,delayed 40 mg PO DAILY PRN ACID REFLEX 02/05/23 04/19/23 release doxepin 3 mg tablet 3 mg PO BEDTIME PRN Insomnia 08/24/23 Previous Rx's ?Medication ?Instructions ?Recorded apixaban 5 mg tablet (Eliquis) 5 mg PO BID #60 tabs 02/15/23 naloxegol 12.5 mg tablet (Movantik) 12.5 mg PO DAILY 30 days #30 tabs 04/21/23 hevbhpapmu-piejcwowpzxzk-ebwqxbdv 1 cap PO TID PRN Post dural 05/26/23 50 mg-300 mg-40 mg capsule puncture headache 10 days #30 caps (Fioricet) hydromorphone 4 mg tablet 4 mg PO BID PRN severe pain (scale 08/18/23 score 7-10) 30 days #60 tabs Allergies Allergy/AdvReac Type Severity Reaction Status Date / Time ciprofloxacin [Cipro] Allergy Unknown Hives Verified 08/23/23 18:42 levofloxacin [Levaquin] Allergy Unknown Hives Verified 08/23/23 18:42 metoclopramide [Reglan] Allergy Unknown Hives Verified 08/23/23 18:42 ondansetron [Zofran] Allergy Unknown Itching Verified 08/23/23 18:42 penicillin V Allergy Unknown Hives Verified 08/23/23 18:42 prochlorperazine Allergy Unknown Shortness Verified 08/23/23 18:42 [From Compazine] of Breath Sulfa (Sulfonamide Allergy Unknown Hives Verified 08/23/23 18:42 Antibiotics) thalidomide [From Thalomid] Allergy Unknown Rash Verified 08/23/23 18:42 haloperidol [From Haldol] Allergy Itching Verified 08/23/23 18:42 PMFSH Past Medical History Medical History Pulmonary emboli Crohn's disease Chronic, continuous use of opioids Immunosuppression Absence seizure disorder DVT (deep venous thrombosis) Pyloric stenosis Asthma Common variable immunodeficiency Spondylolisthesis, lumbar region Spondylosis of lumbar region without myelopathy or radiculopathy Abdominal pain, chronic, generalized Gastroparesis Spontaneous pneumothorax Chronic pain syndrome Cervicalgia Low back pain Behcet's disease Surgical History History of hernia surgery Family History Family History Father Hairy cell leukemia Social History Social History Household Members: Children Household Members Other:: son [facility] Do you presently have visiting nurse or other home services: No Unable to assess alcohol history related to: Unknown Alcohol intake: never Patient Tobacco Use Status: Never used Tobacco Smoked in Last 30 Days: No Second Hand Smoke Exposure: No Advance Directives: Yes Advance Directives on File: Yes Advance Directives Date on File: 04/19/23 Patient : No service: No Current occupational status: unemployed Physical Exam ED Vital Signs: BMI result Body Mass Index 26.8 Course Course Course Narrative: This is a rapid medical exam: Additional HPI, ROS, PE not included below will be deferred to primary provider. Patient is a 43-year-old female with history of chronic abdominal pain, constipation presenting to the ED with complaint of bilateral lower abdominal pain for the past 5 hours. Had small bowel movement this morning. Occasional nausea, no vomiting. Denies fevers. Saw pain management 5 days ago. Plan: labs, UA Additional chart created in error, please see other chart from same date of visit, primary provider Dr. Casanova. Discharge Plan Discharge Clinical Impression: Abdominal pain Patient Disposition: Left W/O Completing Treatment Prescriptions: No Action albuterol sulfate 90 mcg/actuation Hfa Aerosol Inhaler 2 puff INHALATION Q4H PRN (Reason: Wheezing) Incruse Ellipta 62.5 mcg/actuation Blister With Device 1 inh INHALATION DAILY fluticasone furoate-vilanterol [Breo Ellipta] 200-25 mcg/dose Blister With Device 1 inh INHALATION Q24H diphenhydramine HCl 50 mg/mL solution 25 mg IV QID PRN (Reason: Nausea) ondansetron HCl (PF) 4 mg/2 mL solution 4 mg IV QID PRN (Reason: Nausea) promethazine 25 mg Tablet 25 mg PO QID PRN (Reason: Nausea And Vomiting) levetiracetam [Keppra] 100 mg/mL Solution 700 mg PO BID Movantik 12.5 mg tablet 12.5 mg PO DAILY 30 Days Qty: 30 0RF Rx Instructions: must be taken on empty stomach; no food 1 hr after or 2-3 hrs before dose pantoprazole 40 mg tablet,delayed release (DR/EC) 40 mg PO DAILY PRN (Reason: ACID REFLEX) Eliquis 5 mg tablet 5 mg PO BID Qty: 60 0RF doxepin 3 mg tablet 3 mg PO BEDTIME PRN (Reason: Insomnia) ulnicncmci-nznqsjkcpxbly-bomu [Fioricet] 50-300-40 mg capsule 1 cap PO TID PRN (Reason: Post dural puncture headache) 10 Days Qty: 30 0RF hydromorphone 4 mg tablet 4 mg PO BID PRN (Reason: severe pain (scale score 7-10)) 30 Days Qty: 60 0RF Rx Instructions: Partial fill per patient's request only Discharge Date/Time: 08/22/23 23:29
== END 2023-08-22 23:29 | disposition left against medical advice (07) ==
PROVIDERS: Emergency Provider Emergency Medicine; PCP Registered Nurse
DX: R10.9 Unspecified abdominal pain (principal)
CPT/HCPCS: 99281

== ENCOUNTER 2023-08-23 18:21 | Emergency (ER) | payer MEDICARE, MEDICAID, SELFPAY ==
--- NOTE | ~2023-08-23 | CT_ITS ---
EXAMINATION: CT ABDOMEN AND PELVIS WITH CONTRAST CLINICAL INFORMATION: Pain. COMPARISON: None available. TECHNIQUE: Multidetector volumetric images were obtained from the superior aspect of the liver through the pubic symphysis following administration 85 mL of Omnipaque 350 intravenous contrast. Sagittal and coronal reformatted images were obtained on the technologist's workstation. Oral contrast: No This CT examination was performed using dose optimization techniques as appropriate, variously including the following: *Automated exposure control *Adjustment of mA and/or kV according to patient size (this includes techniques or standardized protocols for targeted exams where dose is matched to indication/reason for exam; i.e. extremities or head) *Use of iterative reconstruction technique DLP: 472 mGy-cm FINDINGS: LUNG BASES: There is basilar pleural thickening/scarring. LIVER, GALLBLADDER, AND BILIARY TREE: The liver is normal in size, shape, and attenuation. No focal hepatic lesion or biliary ductal dilatation is present. The gallbladder is unremarkable with no evidence of radiopaque gallstones, gallbladder wall thickening, or obvious pericholecystic inflammatory changes. PANCREAS: Unremarkable. SPLEEN: Unremarkable. ADRENAL GLANDS: Unremarkable. KIDNEYS AND URETERS: The kidneys are normal in size, shape, and attenuation. No hydronephrosis, hydroureter, or calculi seen. No perinephric stranding. There are two subcentimeter hypodensities upper pole of the left kidney likely small cysts. BLADDER: Unremarkable. GASTROINTESTINAL TRACT: There is retained right colonic stool. ABDOMINAL WALL: There is an upper abdominal wall defect. A left mid abdominal hernia repair mesh is noted. There is no associated bowel obstruction. LYMPH NODES: Normal. VASCULAR: Unremarkable. PELVIC VISCERA: Unremarkable. OSSEOUS STRUCTURES: Spinal stimulator device is noted. CT/CT abdomen pelvis w IV con IMPRESSION: No acute intra-abdominal process. Fleischner guidelines were followed.
--- NOTE | 2023-08-23 18:25 | ECG_ITS ---
Test Reason : CHEST PAIN Blood Pressure : / mmHG Vent. Rate : 083 BPM Atrial Rate : 083 BPM P-R Int : 124 ms QRS Dur : 070 ms QT Int : 386 ms P-R-T Axes : 056 017 032 degrees QTc Int : 453 ms Normal sinus rhythm Possible Left atrial enlargement Nonspecific ST and T wave abnormality Abnormal ECG When compared with ECG of 17-JUL-2023 17:35, Nonspecific T wave abnormality, improved in Lateral leads Referred By: Carolyn Oliveira Electronically Signed By:EBER HUGHES MD
--- NOTE | 2023-08-23 18:39 | ED.CHESTPAIN ---
HPI - Chest Pain General Chief Complaint: Abdominal Pain Stated Complaint: Chest pain/lower abd/back Time Seen by Provider: 08/23/23 23:20 Related Data Home Medications Medication Instructions Recorded Confirmed albuterol sulfate 90 mcg/actuation 2 puff inhalation Q4H PRN Wheezing 12/12/20 04/19/23 aerosol inhaler fluticasone furoate 200 1 inh inhalation Q24H 12/12/20 04/19/23 mcg-vilanterol 25 mcg/dose inhalation powder (Breo Ellipta) umeclidinium 62.5 mcg/actuation 1 inh inhalation DAILY 12/12/20 04/19/23 blister powder for inhalation (Incruse Ellipta) diphenhydramine HCl 50 mg/mL 25 mg IV QID PRN Nausea 03/12/21 04/19/23 injection solution ondansetron HCl (PF) 4 mg/2 mL 4 mg IV QID PRN Nausea 03/12/21 04/19/23 injection solution levetiracetam 100 mg/mL oral 700 mg PO BID 08/18/21 04/19/23 solution (Keppra) promethazine 25 mg tablet 25 mg PO QID PRN Nausea And 08/18/21 04/19/23 Vomiting pantoprazole 40 mg tablet,delayed 40 mg PO DAILY PRN ACID REFLEX 02/05/23 04/19/23 release Previous Rx's Medication Instructions Recorded apixaban 5 mg tablet (Eliquis) 5 mg PO BID #60 tabs 02/15/23 naloxegol 12.5 mg tablet (Movantik) 12.5 mg PO DAILY 30 days #30 tabs 04/21/23 pcmcfipote-xthlxkqfdbzvr-alscyloc 1 cap PO TID PRN Post dural 05/26/23 50 mg-300 mg-40 mg capsule puncture headache 10 days #30 caps (Fioricet) hydromorphone 4 mg tablet 4 mg PO BID PRN severe pain (scale 08/18/23 score 7-10) 30 days #60 tabs Allergies Allergy/AdvReac Type Severity Reaction Status Date / Time ciprofloxacin [Cipro] Allergy Unknown Hives Verified 08/23/23 18:42 levofloxacin [Levaquin] Allergy Unknown Hives Verified 08/23/23 18:42 metoclopramide [Reglan] Allergy Unknown Hives Verified 08/23/23 18:42 ondansetron [Zofran] Allergy Unknown Itching Verified 08/23/23 18:42 penicillin V Allergy Unknown Hives Verified 08/23/23 18:42 prochlorperazine Allergy Unknown Shortness Verified 08/23/23 18:42 [From Compazine] of Breath Sulfa (Sulfonamide Allergy Unknown Hives Verified 08/23/23 18:42 Antibiotics) thalidomide [From Thalomid] Allergy Unknown Rash Verified 08/23/23 18:42 haloperidol [From Haldol] Allergy Itching Verified 08/23/23 18:42 COUNTS INCLUDE 234 BEDS AT THE [facility] Past Medical History Medical History Pulmonary emboli Crohn's disease Chronic, continuous use of opioids Immunosuppression Absence seizure disorder DVT (deep venous thrombosis) Pyloric stenosis Asthma Common variable immunodeficiency Spondylolisthesis, lumbar region Spondylosis of lumbar region without myelopathy or radiculopathy Abdominal pain, chronic, generalized Gastroparesis Spontaneous pneumothorax Chronic pain syndrome Cervicalgia Low back pain Behcet's disease Surgical History History of hernia surgery Family History Family History Father Hairy cell leukemia Social History Social History Household Members: Children Household Members Other:: son [facility]: [facility] Do you presently have visiting nurse or other home services: No Unable to assess alcohol history related to: Unknown Alcohol intake: never Patient Tobacco Use Status: Never used Tobacco Smoked in Last 30 Days: No Second Hand Smoke Exposure: No Advance Directives: Yes Advance Directives on File: Yes Advance Directives Date on File: 04/19/23 Patient : No service: No Current occupational status: unemployed Physical Exam Vital Signs: Vital Signs: Last Vital Signs Temp 98.4 F 08/24/23 01:30 Pulse 78 08/24/23 01:30 Resp 18 08/24/23 01:30 BP 130/69 08/24/23 01:30 Pulse Ox 99 08/24/23 01:30 O2 Del Method Room Air 08/24/23 01:30 BMI result Body Mass Index 26.9 Course Course Course Narrative: This is a Rapid Medical Examination (RME) in triage, full HPI, ROS, assessment and plan per primary provider in the Main ED. Brooklyn is a 43 year old female with history of chronic abdominal pain, Crohn's disease, gastroparesis on TPN who presents today for evaluation for tearing epigastric/ chest pain radiating to back for 1 day. No diarrhea, denies difficulty with bowel movements. Reports nausea, no vomiting. Decrease in appetite, reports that she has not eaten for 2 days. Plan: ECG, labs Medications Administered Discontinued Medications Generic Name Dose Route Start Last Admin Trade Name Freq PRN Reason Stop Dose Admin Diphenhydramine HCl 25 mg 08/24/23 00:14 08/24/23 00:18 Diphenhydramine Hcl 50 Mg/Ml Vial IVPUSH 08/24/23 00:15 25 mg ONCE ONE Administration Hydromorphone HCl 0.5 mg 08/23/23 23:58 08/24/23 00:11 Hydromorphone Hcl 0.5 Mg/0.5 Ml Syringe IVPUSH 08/23/23 23:59 0.5 mg ONCE ONE Administration Protocol Sodium Chloride 1,000 mls @ 999 mls/hr 08/23/23 23:45 08/24/23 01:56 Ns IV 08/24/23 00:45 Infused .Q1H1M ANNA Infusion Ondansetron HCl 4 mg 08/24/23 00:12 08/24/23 00:18 Ondansetron Hcl 4 Mg/2 Ml Vial IVPUSH 08/24/23 00:13 4 mg ONCE ONE Administration Medical Decision Making Lab Data 08/23/23 18:46 08/23/23 18:46 Labs: Lab Results 08/23/23 08/23/23 Range/Units 18:46 23:49 WBC 6.0 (4.8-10.8) X10*3/uL RBC 4.73 (4.20-5.50) X10*6/uL Hgb 14.2 (12.0-16.0) g/dl Hct 42.6 (37.0-47.0) % MCV 90.1 (80.0-98.0) fL MCH 30.0 (27.0-33.0) pg MCHC 33.3 (31.0-35.0) g/dl RDW 12.8 (11.0-16.0) % Plt Count 230 (160-400) X10*3/uL MPV 10.2 (9.4-12.3) fL Immature Gran % (Auto) 0.3 (0.0-0.4) % Neut % (Auto) 67.6 (45-73) % Lymph % (Auto) 22.2 (20-40) % [place] % (Auto) 7.9 (2-11) % Eos % (Auto) 1.2 (0-4) % Baso % (Auto) 0.8 (0-2) % Lymph # (Auto) 1.3 (1.2-4.9) X10*3/uL [place] # (Auto) 0.5 (0.1-1.2) X10*3/uL Eos # (Auto) 0.1 (0.0-0.4) X10*3/uL Baso # (Auto) 0.1 (0.0-0.2) X10*3/uL Abs Immat Gran (auto) 0.02 (0.00-0.03) X10*3/uL Absolute Neuts (auto) 4.0 (2.0-8.3) x10*3/uL Absolute Nucleated RBC 0.000 (0.0-0.012) X10*3/uL Nucleated RBC % (auto) 0.0 (0.0-0.2) /100WBC Sodium 142 (135-145) mmol/L Potassium 4.3 (3.3-5.1) mmol/L Chloride 105 (96-108) mmol/L Carbon Dioxide 27 (22-29) mmol/L Anion Gap 14 (12-20) BUN 11 (9-16) mg/dL Creatinine 0.74 (0.5-1.4) mg/dL Estim Creat Clear Calc 79.2 Estimated GFR > 60 Random Glucose 87 (60-115) mg/dL Calcium 9.7 (8.4-10.2) mg/dL Magnesium 2.5 (1.6-2.6) mg/dL Total Bilirubin 0.3 (0.0-1.0) mg/dL Direct Bilirubin 0.1 (0.0-0.5) mg/dL AST 16 (5-31) U/L ALT 13 (0-31) U/L Alkaline Phosphatase 70 (39-117) U/L Troponin I High Sens < 2.7 (<3.5-17.0) ng/L Total Protein 7.8 (6.5-8.0) g/dL Albumin 4.8 (3.5-5.0) g/dL Lipase 10 (8-78) U/L Beta-Hydroxybutyrate Cancelled Beta HCG, Quant 7 mIU/mL Urine Color Yellow Urine Appearance Clear Urine pH 6.0 (5.0-9.0) Ur Specific [place] >= 1.030 H (1.005-1.025) Urine Protein Negative (Neg-Trace) mg/dL Urine Glucose (UA) 100 H (Negative) mg/dL Urine Ketones Trace (Negative) mg/dL Urine Blood Negative (Negative) Urine Nitrite Negative (Negative) Ur Leukocyte Esterase Trace H (Negative) Urine RBC 0-2 (0-2) /HPF Urine WBC 6-10 H (0-5) /HPF Ur Squamous Epith Cells 0-2 (0-2) /HPF Urine Bacteria None Seen (None Seen) Hyaline Casts 0-2 (0-2) /LPF Urine Test NEGATIVE (NEGATIVE) Discharge Plan Discharge Clinical Impression: Abdominal pain Patient Disposition: Still a Patient Prescriptions: No Action albuterol sulfate 90 mcg/actuation Hfa Aerosol Inhaler 2 puff INHALATION Q4H PRN (Reason: Wheezing) Incruse Ellipta 62.5 mcg/actuation Blister With Device 1 inh INHALATION DAILY fluticasone furoate-vilanterol [Breo Ellipta] 200-25 mcg/dose Blister With Device 1 inh INHALATION Q24H diphenhydramine HCl 50 mg/mL solution 25 mg IV QID PRN (Reason: Nausea) ondansetron HCl (PF) 4 mg/2 mL solution 4 mg IV QID PRN (Reason: Nausea) promethazine 25 mg Tablet 25 mg PO QID PRN (Reason: Nausea And Vomiting) levetiracetam [Keppra] 100 mg/mL Solution 700 mg PO BID Movantik 12.5 mg tablet 12.5 mg PO DAILY 30 Days Qty: 30 0RF Rx Instructions: must be taken on empty stomach; no food 1 hr after or 2-3 hrs before dose pantoprazole 40 mg tablet,delayed release (DR/EC) 40 mg PO DAILY PRN (Reason: ACID REFLEX) Eliquis 5 mg tablet 5 mg PO BID Qty: 60 0RF nglllazzfn-tztwocuskdyoa-ungd [Fioricet] 50-300-40 mg capsule 1 cap PO TID PRN (Reason: Post dural puncture headache) 10 Days Qty: 30 0RF hydromorphone 4 mg tablet 4 mg PO BID PRN (Reason: severe pain (scale score 7-10)) 30 Days Qty: 60 0RF Rx Instructions: Partial fill per patient's request only
[2023-08-23 18:40] VITALS: BP 149/54; PULSE 83; RESP 18; TEMP 36.7; O2SAT 98; BMI 26.9
[2023-08-23 18:57] LABS: MANUAL DIFF FLAG NO
[2023-08-23 18:58] LABS: Basophils Absolute Auto 0.1 X10*3/uL (0.0-0.2); Basophils Percent Auto 0.8 % (0-2); Eosinophils Absolute Auto 0.1 X10*3/uL (0.0-0.4); Eosinophils Percent Auto 1.2 % (0-4); Hematocrit 42.6 % (37.0-47.0); Hemoglobin 14.2 g/dl (12.0-16.0); Imm Gran Abs Auto 0.02 X10*3/uL (0.00-0.03); Imm Gran Pct Auto 0.3 % (0.0-0.4); Lymphocytes Absolute Auto 1.3 X10*3/uL (1.2-4.9); Lymphocytes Percent Auto 22.2 % (20-40); Mean Corpuscular HGB Conc 33.3 g/dl (31.0-35.0); Mean Corpuscular Volume 90.1 fL (80.0-98.0); Mean Platelet Volume 10.2 fL (9.4-12.3); Monocytes Absolute Auto 0.5 X10*3/uL (0.1-1.2); Monocytes Percent Auto 7.9 % (2-11); Neutrophils Percent Auto 67.6 % (45-73); Platelet Count 230 X10*3/uL (160-400); Red Blood Count 4.73 X10*6/uL (4.20-5.50); Red Cell Distribution Width 12.8 % (11.0-16.0)
[2023-08-23 19:12] LABS: Alanine Aminotransferase 13 U/L (0-31); Albumin Level 4.8 g/dL (3.5-5.0); Alkaline Phosphatase 70 U/L (39-117); Anion Gap 14 (12-20); Aspartate Amino Transferase 16 U/L (5-31); Bilirubin Direct 0.1 mg/dL (0.0-0.5); Bilirubin Total 0.3 mg/dL (0.0-1.0); Blood Urea Nitrogen 11 mg/dL (9-16); Calcium 9.7 mg/dL (8.4-10.2); Carbon Dioxide 27 mmol/L (22-29); Chloride 105 mmol/L (96-108); Creatinine Clr Calc Pharmacy 79.2; Estimated Glomerular Filt Rate > 60; Glucose Random 87 mg/dL (60-115); Lipase 10 U/L (8-78); Magnesium 2.5 mg/dL (1.6-2.6); Potassium 4.3 mmol/L (3.3-5.1); Sodium 142 mmol/L (135-145); Total Protein 7.8 g/dL (6.5-8.0)
[2023-08-23 19:25] LABS: Troponin-I High Sensitivity < 2.7 ng/L (<3.5-17.0)
[2023-08-23 23:27] VITALS: BP 109/79; PULSE 82; RESP 17; TEMP 37.1; O2SAT 97
--- NOTE | 2023-08-23 23:50 | MHC.EDTECH ---
Patient ambulated to bathroom with a steady gait,urine sample collected and sent to lab.
[2023-08-23 23:56] LABS: Appearance Urine Clear; Color Urine Yellow; Glucose Urine UA 100 mg/dL (Negative); Leukocyte Esterase Urine Trace (Negative); Nitrite Urine Negative (Negative); Specific Gravity - Urine >= 1.030 (1.005-1.025); UMIC TRIGGER UACC YES; Urine Blood Negative (Negative); Urine Ketones Trace mg/dL (Negative); Urine Protein Negative (Neg-Trace)
[2023-08-23 23:58] LABS: Bacteria Urine None Seen (None Seen); Hyaline Casts Urine 0-2 /LPF (0-2); RBC Urine 0-2 /HPF (0-2); Squamous Epithelial Cell Urine 0-2 /HPF (0-2); UACC Culture Trigger YES
--- NOTE | 2023-08-24 00:03 | ED_ITS ---
HPI - Abdominal Pain General Chief Complaint: Abdominal Pain Stated Complaint: Chest pain/lower abd/back Time Seen by Provider: 08/23/23 23:20 History of Present Illness HPI narrative: Patient is a 43-year-old female with a history of Behcet's disease history of ulcerative colitis history of Crohn's with history of fistulas. Chronic abdominal pain. Patient is on TPN. Presented again with having increasing abdominal pain worse on the left side. No fever no chills. Positive chest pain that is constant. Abdominal pain is much more severe than chest pain. There has no fever no chills. Have a bowel movement. No coughing or congestion or upper respiratory symptoms. No diaphoresis. Does not think she is . There is no pain on urination. Has a history of DVT/PE patient is on Eliquis. Related Data Home Medications Medication Instructions Recorded Confirmed albuterol sulfate 90 mcg/actuation 2 puff inhalation Q4H PRN Wheezing 12/12/20 04/19/23 aerosol inhaler fluticasone furoate 200 1 inh inhalation Q24H 12/12/20 04/19/23 mcg-vilanterol 25 mcg/dose inhalation powder (Breo Ellipta) umeclidinium 62.5 mcg/actuation 1 inh inhalation DAILY 12/12/20 04/19/23 blister powder for inhalation (Incruse Ellipta) diphenhydramine HCl 50 mg/mL 25 mg IV QID PRN Nausea 03/12/21 04/19/23 injection solution ondansetron HCl (PF) 4 mg/2 mL 4 mg IV QID PRN Nausea 03/12/21 04/19/23 injection solution levetiracetam 100 mg/mL oral 700 mg PO BID 08/18/21 04/19/23 solution (Keppra) promethazine 25 mg tablet 25 mg PO QID PRN Nausea And 08/18/21 04/19/23 Vomiting pantoprazole 40 mg tablet,delayed 40 mg PO DAILY PRN ACID REFLEX 02/05/23 04/19/23 release Previous Rx's Medication Instructions Recorded apixaban 5 mg tablet (Eliquis) 5 mg PO BID #60 tabs 02/15/23 naloxegol 12.5 mg tablet (Movantik) 12.5 mg PO DAILY 30 days #30 tabs 04/21/23 [id number]-ixgqfrgazgclg-efqxdbmb 1 cap PO TID PRN Post dural 05/26/23 50 mg-300 mg-40 mg capsule puncture headache 10 days #30 caps (Fioricet) hydromorphone 4 mg tablet 4 mg PO BID PRN severe pain (scale 08/18/23 score 7-10) 30 days #60 tabs Allergies Allergy/AdvReac Type Severity Reaction Status Date / Time ciprofloxacin [Cipro] Allergy Unknown Hives Verified 08/23/23 18:42 levofloxacin [Levaquin] Allergy Unknown Hives Verified 08/23/23 18:42 metoclopramide [Reglan] Allergy Unknown Hives Verified 08/23/23 18:42 ondansetron [Zofran] Allergy Unknown Itching Verified 08/23/23 18:42 penicillin V Allergy Unknown Hives Verified 08/23/23 18:42 prochlorperazine Allergy Unknown Shortness Verified 08/23/23 18:42 [From Compazine] of Breath Sulfa (Sulfonamide Allergy Unknown Hives Verified 08/23/23 18:42 Antibiotics) thalidomide [From Thalomid] Allergy Unknown Rash Verified 08/23/23 18:42 haloperidol [From Haldol] Allergy Itching Verified 08/23/23 18:42 Review of Systems Review of Systems Positive abdominal pain Yes all other systems are reviewed and are negative PMFSH Past Medical History Attestation statement: The following information was validated with the patient. Medical History Pulmonary emboli Crohn's disease Chronic, continuous use of opioids Immunosuppression Absence seizure disorder DVT (deep venous thrombosis) Pyloric stenosis Asthma Common variable immunodeficiency Spondylolisthesis, lumbar region Spondylosis of lumbar region without myelopathy or radiculopathy Abdominal pain, chronic, generalized Gastroparesis Spontaneous pneumothorax Chronic pain syndrome Cervicalgia Low back pain Behcet's disease Surgical History History of hernia surgery Family History Family History Father Hairy cell leukemia Social History Social History Household Members: Children Household Members Other:: son Housing: Condominium Do you presently have visiting nurse or other home services: No Unable to assess alcohol history related to: Unknown Alcohol intake: never Patient Tobacco Use Status: Never used Tobacco Smoked in Last 30 Days: No Second Hand Smoke Exposure: No Advance Directives: Yes Advance Directives on File: Yes Advance Directives Date on File: 04/19/23 Patient : No service: No Current occupational status: unemployed Physical Exam ED Vital Signs: Vital Signs - 24 hr 08/23/23 18:40 08/23/23 23:27 08/24/23 01:30 Temperature 98.0 F 98.7 F 98.4 F Pulse Rate 83 82 78 Respiratory Rate 18 17 18 Blood Pressure 149/54 H 109/79 130/69 Pulse Oximetry 98 97 99 Oxygen Delivery Method Room Air Room Air Room Air BMI result Body Mass Index 26.9 Appearance: Alert. Oriented X3. No acute distress. Eyes: Pupils equal, round and reactive to light. ENT: Pharynx normal. Neck: Normal inspection. Neck supple. No lymph nodes noted. No crepitus CVS: Normal heart rate and rhythm. Pulses normal. Normal S1 and S2 Respiratory: No respiratory distress. Breath sounds normal. No Wheezing. No rales Abdomen: Soft . Positive left-sided abdominal tenderness no rebound or guarding Skin: Skin warm and dry. Normal skin color. Normal skin turgor. Extremities: No lower extremity edema. Neurovascular intact to all extremities. No Lacerations. No Rash Neuro: Oriented X 3. No motor deficit. No sensory deficit. Moving all extermities. No slurred speech Medical Decision Making Medical Decision Making MDM Narrative: Positive abdominal pain day history of Behcet's history of Crohn's with fistula. Currently on TPN. Presented again with having abdominal pain. Patient's white count is normal. Will get a CT scan of the abdomen pelvis to rule out the possibility of obstruction. Lactic acid was ordered to rule out the possibility of ischemic bowel. test ordered. UA ordered. Patient's chest pain is atypical. My interpretation of patient's EKG showed a sinus rhythm heart rate is 80 GA QRS QTC within normal limits there is diffuse T-wave flattening noted this is unchanged from previous. Patient's 1st sets of enzymes is negative will get a 2nd set of cardiac enzymes his chest pain has been ongoing since yesterday doubt this is secondary to ACS with a negative troponin. Pain medication given. Count is normal. Electrolytes are unremarkable. Chest pain atypical. Troponin is negative. EKG unchanged. Doubt it is secondary to ACS. Patient's quant is 7 likely secondary to perimenopausal state. CT scan of the abdomen is pending. Differential Diagnosis Differential Diagnoses: The differential diagnosis associated with the presentation includes Obstruction, ischemic bowel, ACS, UTI, -related issue Admission/Observation Consideration of admission/observation: Escalation of care including admission/observation considered Lab Data MDM Lab Attestation statement: I reviewed the patient's lab results. 08/23/23 18:46 08/23/23 18:46 Labs: Lab Results 08/23/23 08/23/23 Range/Units 18:46 23:49 WBC 6.0 (4.8-10.8) X10*3/uL RBC 4.73 (4.20-5.50) X10*6/uL Hgb 14.2 (12.0-16.0) g/dl Hct 42.6 (37.0-47.0) % MCV 90.1 (80.0-98.0) fL MCH 30.0 (27.0-33.0) pg MCHC 33.3 (31.0-35.0) g/dl RDW 12.8 (11.0-16.0) % Plt Count 230 (160-400) X10*3/uL MPV 10.2 (9.4-12.3) fL Immature Gran % (Auto) 0.3 (0.0-0.4) % Neut % (Auto) 67.6 (45-73) % Lymph % (Auto) 22.2 (20-40) % [place] % (Auto) 7.9 (2-11) % Eos % (Auto) 1.2 (0-4) % Baso % (Auto) 0.8 (0-2) % Lymph # (Auto) 1.3 (1.2-4.9) X10*3/uL [place] # (Auto) 0.5 (0.1-1.2) X10*3/uL Eos # (Auto) 0.1 (0.0-0.4) X10*3/uL Baso # (Auto) 0.1 (0.0-0.2) X10*3/uL Abs Immat Gran (auto) 0.02 (0.00-0.03) X10*3/uL Absolute Neuts (auto) 4.0 (2.0-8.3) x10*3/uL Absolute Nucleated RBC 0.000 (0.0-0.012) X10*3/uL Nucleated RBC % (auto) 0.0 (0.0-0.2) /100WBC Sodium 142 (135-145) mmol/L Potassium 4.3 (3.3-5.1) mmol/L Chloride 105 (96-108) mmol/L Carbon Dioxide 27 (22-29) mmol/L Anion Gap 14 (12-20) BUN 11 (9-16) mg/dL Creatinine 0.74 (0.5-1.4) mg/dL Estim Creat Clear Calc 79.2 Estimated GFR > 60 Random Glucose 87 (60-115) mg/dL Calcium 9.7 (8.4-10.2) mg/dL Magnesium 2.5 (1.6-2.6) mg/dL Total Bilirubin 0.3 (0.0-1.0) mg/dL Direct Bilirubin 0.1 (0.0-0.5) mg/dL AST 16 (5-31) U/L ALT 13 (0-31) U/L Alkaline Phosphatase 70 (39-117) U/L Troponin I High Sens < 2.7 (<3.5-17.0) ng/L Total Protein 7.8 (6.5-8.0) g/dL Albumin 4.8 (3.5-5.0) g/dL Lipase 10 (8-78) U/L Beta-Hydroxybutyrate Cancelled Beta HCG, Quant 7 mIU/mL Urine Color Yellow Urine Appearance Clear Urine pH 6.0 (5.0-9.0) Ur Specific [place] >= 1.030 H (1.005-1.025) Urine Protein Negative (Neg-Trace) mg/dL Urine Glucose (UA) 100 H (Negative) mg/dL Urine Ketones Trace (Negative) mg/dL Urine Blood Negative (Negative) Urine Nitrite Negative (Negative) Ur Leukocyte Esterase Trace H (Negative) Urine RBC 0-2 (0-2) /HPF Urine WBC 6-10 H (0-5) /HPF Ur Squamous Epith Cells 0-2 (0-2) /HPF Urine Bacteria None Seen (None Seen) Hyaline Casts 0-2 (0-2) /LPF Urine Test NEGATIVE (NEGATIVE) Independent Interpretation I performed an independent interpretation of an: EKG (Sinus heart rate is 80 GA QRS QTC within normal limits is diffuse T-wave flattening noted.) External Record Review External record reviewed: Inpatient record Chronic Conditions History of Crohn's. History of fistulas. History of malabsorption. Patient is currently on TPN. Social Determinants Patient?s care significantly limited by Social Determinants of Health including: Problems related to primary support group Medications Administered Discontinued Medications Generic Name Dose Route Start Last Admin Trade Name Freq PRN Reason Stop Dose Admin Diphenhydramine HCl 25 mg 08/24/23 00:14 08/24/23 00:18 Diphenhydramine Hcl 50 Mg/Ml Vial IVPUSH 08/24/23 00:15 25 mg ONCE ONE Administration Hydromorphone HCl 0.5 mg 08/23/23 23:58 08/24/23 00:11 Hydromorphone Hcl 0.5 Mg/0.5 Ml Syringe IVPUSH 08/23/23 23:59 0.5 mg ONCE ONE Administration Protocol Sodium Chloride 1,000 mls @ 999 mls/hr 08/23/23 23:45 08/24/23 00:06 Ns IV 08/24/23 00:45 999 mls/hr .Q1H1M ANNA Administration Ondansetron HCl 4 mg 08/24/23 00:12 08/24/23 00:18 Ondansetron Hcl 4 Mg/2 Ml Vial IVPUSH 08/24/23 00:13 4 mg ONCE ONE Administration Discharge Plan Discharge Clinical Impression: Abdominal pain Patient Disposition: Still a Patient Prescriptions: No Action albuterol sulfate 90 mcg/actuation Hfa Aerosol Inhaler 2 puff INHALATION Q4H PRN (Reason: Wheezing) Incruse Ellipta 62.5 mcg/actuation Blister With Device 1 inh INHALATION DAILY fluticasone furoate-vilanterol [Breo Ellipta] 200-25 mcg/dose Blister With Device 1 inh INHALATION Q24H diphenhydramine HCl 50 mg/mL solution 25 mg IV QID PRN (Reason: Nausea) ondansetron HCl (PF) 4 mg/2 mL solution 4 mg IV QID PRN (Reason: Nausea) promethazine 25 mg Tablet 25 mg PO QID PRN (Reason: Nausea And Vomiting) levetiracetam [Keppra] 100 mg/mL Solution 700 mg PO BID Movantik 12.5 mg tablet 12.5 mg PO DAILY 30 Days Qty: 30 0RF Rx Instructions: must be taken on empty stomach; no food 1 hr after or 2-3 hrs before dose pantoprazole 40 mg tablet,delayed release (DR/EC) 40 mg PO DAILY PRN (Reason: ACID REFLEX) Eliquis 5 mg tablet 5 mg PO BID Qty: 60 0RF qumzjpxbmk-svbkyohbxvjgx-mzlz [Fioricet] 50-300-40 mg capsule 1 cap PO TID PRN (Reason: Post dural puncture headache) 10 Days Qty: 30 0RF hydromorphone 4 mg tablet 4 mg PO BID PRN (Reason: severe pain (scale score 7-10)) 30 Days Qty: 60 0RF Rx Instructions: Partial fill per patient's request only
[2023-08-24] MEDS: 0.9 % Sodium Chloride 1,000 ML 999 ML IV (00:06)
[2023-08-24] MEDS: HYDROmorphone HCl 0.5 MG/0.5 ML SYRINGE IVPUSH (00:11)
[2023-08-24 00:16] LABS: UPreg QC Valid YES; Urine Pregnancy NEGATIVE (NEGATIVE)
[2023-08-24] MEDS: ondansetron HCL 4 MG/2 ML VIAL IVPUSH (00:18)
[2023-08-24] MEDS: diphenhydrAMINE HCL 50 MG/ML VIAL 25 MG IVPUSH (00:18)
[2023-08-24 00:28] LABS: HCG Quantitative 7 mIU/mL
[2023-08-24 01:30] VITALS: BP 130/69; PULSE 78; RESP 18; TEMP 36.9; O2SAT 99
--- NOTE | 2023-08-24 01:31 | MHC.EDTECH ---
Hourly rounds and vitals completed,patient ambulate to the bathroom with a steady gait.
[2023-08-24 02:02] LABS: VBG Base Excess 2.6 mmol/L; VBG HCO3 27 mmol/L (22-26); VBG pCO2 44 mmHg; VBG pH 7.39 (7.32-7.43); VBG pO2 55 mmHg
[2023-08-24 02:06] LABS: Venous Blood Gas Refer to POC result
[2023-08-24 02:09] LABS: Lactic Acid 0.7 mmol/L (0.5-2.0)
[2023-08-24 02:21] LABS: Troponin-I High Sensitivity < 2.7 ng/L (<3.5-17.0)
[2023-08-24] MEDS: Diatrizoate Meglumine, Sodium 30 ML SOLUTION PO (02:35)
[2023-08-24] MEDS: iohexoL 350 MG/ML 100 ML INFUS..BTL 85 ML IV (02:41)
[2023-08-24 04:00] VITALS: BP 138/70; PULSE 82; RESP 16; TEMP 36.8; O2SAT 99
--- NOTE | 2023-08-24 04:23 | MHC.EDTECH ---
Hourly rounds and vitals completed,patient is resting at this time,call khan in reach
--- NOTE | 2023-08-24 04:50 | MHC.EDTECH ---
Belongings list completed and copy placed in chart
[2023-08-24 05:45] VITALS: BP 138/70; PULSE 82; RESP 17; TEMP 36.8; O2SAT 99
== END 2023-08-24 06:28 | disposition home or self-care (01) ==
PROVIDERS: Emergency Medicine Emergency Medical Services; Physician Assistant; Emergency Provider Emergency Medicine; PCP Registered Nurse
DX: R10.9 Unspecified abdominal pain (principal); K50.913 Crohn's disease, unspecified, with fistula; J45.909 Unspecified asthma, uncomplicated; Z86.711 Personal history of pulmonary embolism; Z86.718 Personal history of other venous thrombosis and embolism; Z79.01 Long term (current) use of anticoagulants
CPT/HCPCS: 36415; 74177; 80048; 80076; 81001; 81025; 82803; 83605; 83690; 83735; 84484; 84702; 85025; 87086; 93005; 96361; 96374; 96375; 99285; J1170; J1200; J2405; Q9967

== ENCOUNTER → 2023-08-23 18:25 | Outpatient (BNV) | payer MEDICARE, MEDICAID, SELFPAY | PROVIDERS: Emergency Provider Emergency Medicine; PCP Registered Nurse; Visit Provider Internal Medicine Cardiovascular Disease | DX: R07.9 Chest pain, unspecified (principal) | CPT/HCPCS: 93010 ==

== ENCOUNTER 2023-09-01 20:49 | Emergency (ER) | payer MEDICARE, MEDICAID, SELFPAY ==
--- NOTE | ~2023-09-01 | XR_ITS ---
EXAMINATION: XR CHEST CLINICAL INFORMATION: Cough. COMPARISON: 10/17/2021. TECHNIQUE: 2 views of the chest were obtained. FINDINGS: The cardiomediastinal silhouette is stable. There is blunting of the left costophrenic angle similar to previous with likely associated scarring and/or atelectatic change at the left lung base also similar to previous. The lungs are otherwise clear. The bony structures and soft tissues are unremarkable. A catheter overlies the right atrium. XR/XR chest 2V IMPRESSION: Blunting of the left costophrenic angle similar to previous. No acute process identified.
[2023-09-01 20:58] VITALS: BP 113/59; PULSE 91; RESP 17; TEMP 36.9; O2SAT 100
[2023-09-01 21:00] VITALS: BP 121/77; PULSE 97; O2SAT 98
[2023-09-01 21:01] VITALS: BMI 26.4
[2023-09-01 21:22] LABS: MANUAL DIFF FLAG NO
[2023-09-01 21:23] LABS: Basophils Percent Auto 0.4 % (0-2); Eosinophils Absolute Auto 0.1 X10*3/uL (0.0-0.4); Eosinophils Percent Auto 0.6 % (0-4); Hematocrit 35.6 % (37.0-47.0); Hemoglobin 12.2 g/dl (12.0-16.0); Imm Gran Abs Auto 0.04 X10*3/uL (0.00-0.03); Imm Gran Pct Auto 0.4 % (0.0-0.4); Lymphocytes Absolute Auto 1.1 X10*3/uL (1.2-4.9); Lymphocytes Percent Auto 10.1 % (20-40); Mean Corpuscular HGB Conc 34.3 g/dl (31.0-35.0); Mean Corpuscular Hemoglobin 30.6 pg (27.0-33.0); Mean Corpuscular Volume 89.2 fL (80.0-98.0); Mean Platelet Volume 10.6 fL (9.4-12.3); Monocytes Absolute Auto 0.9 X10*3/uL (0.1-1.2); Monocytes Percent Auto 8.3 % (2-11); Neutrophils Absolute Auto 8.7 x10*3/uL (2.0-8.3); Neutrophils Percent Auto 80.2 % (45-73); Platelet Count 224 X10*3/uL (160-400); Red Blood Count 3.99 X10*6/uL (4.20-5.50); Red Cell Distribution Width 12.7 % (11.0-16.0); White Blood Count 10.8 X10*3/uL (4.8-10.8)
[2023-09-01 21:36] LABS: Alanine Aminotransferase 10 U/L (0-31); Albumin Level 4.3 g/dL (3.5-5.0); Alkaline Phosphatase 67 U/L (39-117); Anion Gap 19 (12-20); Aspartate Amino Transferase 12 U/L (5-31); Bilirubin Total 0.4 mg/dL (0.0-1.0); Blood Urea Nitrogen 16 mg/dL (9-16); Calcium 9.1 mg/dL (8.4-10.2); Carbon Dioxide 22 mmol/L (22-29); Chloride 102 mmol/L (96-108); Creatinine Clr Calc Pharmacy 86.6; Estimated Glomerular Filt Rate > 60; Glucose Random 86 mg/dL (60-115); Sodium 139 mmol/L (135-145); Total Protein 7.2 g/dL (6.5-8.0)
[2023-09-01 21:58] LABS: Influenza A PCR NEGATIVE (Negative); Influenza B PCR NEGATIVE (Negative); Resp Syncy Virus RNA Qual PCR NEGATIVE (Negative); SARS COV2 PCR INHOUSE NEGATIVE (Negative)
[2023-09-01 22:05] VITALS: O2SAT 99
--- NOTE | 2023-09-01 23:23 | ED_ITS ---
HPI - General Adult General Chief complaint: Upper Respiratory Symptoms Stated complaint: SOB,HAD STREP TUESDAY Time Seen by Provider: 09/01/23 23:15 History of Present Illness HPI narrative: The patient is a 43-year-old woman with a history of multiple medical issues including pulmonary emboli. She is on anticoagulation. She also has a Port-A-Cath in her right flank. She receives TPN through the Port-A-Cath The patient says that she developed a sore throat 3 days ago on Tuesday. Two days ago she went to an urgent care center and says that she had a positive strep test and was placed on cefdinir. The patient says that despite taking the antibiotic she has had worsening cough and shortness of breath and green sputum over the last couple of days. She says that she also has been having fevers. She had a temperature of 102 degrees earlier today She called an ambulance because of the symptoms and was brought to the hospital. She reports that she does not feel her sore throat has gotten any worse. She says that her sore throat has gotten somewhat better. She says that she has a history of asthma. Related Data Home Medications ?Medication ?Instructions ?Recorded ?Confirmed albuterol sulfate 90 mcg/actuation 2 puff inhalation Q4H PRN Wheezing 12/12/20 04/19/23 aerosol inhaler fluticasone furoate 200 1 inh inhalation Q24H 12/12/20 04/19/23 mcg-vilanterol 25 mcg/dose inhalation powder (Breo Ellipta) umeclidinium 62.5 mcg/actuation 1 inh inhalation DAILY 12/12/20 04/19/23 blister powder for inhalation (Incruse Ellipta) diphenhydramine HCl 50 mg/mL 25 mg IV QID PRN Nausea 03/12/21 04/19/23 injection solution ondansetron HCl (PF) 4 mg/2 mL 4 mg IV QID PRN Nausea 03/12/21 04/19/23 injection solution levetiracetam 100 mg/mL oral 700 mg PO BID 08/18/21 04/19/23 solution (Keppra) promethazine 25 mg tablet 25 mg PO QID PRN Nausea And 08/18/21 04/19/23 Vomiting pantoprazole 40 mg tablet,delayed 40 mg PO DAILY PRN ACID REFLEX 02/05/23 04/19/23 release doxepin 3 mg tablet 3 mg PO BEDTIME PRN Insomnia 08/24/23 Previous Rx's ?Medication ?Instructions ?Recorded apixaban 5 mg tablet (Eliquis) 5 mg PO BID #60 tabs 02/15/23 naloxegol 12.5 mg tablet (Movantik) 12.5 mg PO DAILY 30 days #30 tabs 04/21/23 ekficjvpds-cnhxqjcsrvvcw-xvortfyl 1 cap PO TID PRN Post dural 05/26/23 50 mg-300 mg-40 mg capsule puncture headache 10 days #30 caps (Fioricet) hydromorphone 4 mg tablet 4 mg PO BID PRN severe pain (scale 08/18/23 score 7-10) 30 days #60 tabs clindamycin HCl 300 mg capsule 600 mg (2 x 300 mg) PO TID 10 days 09/02/23 #60 caps Allergies Allergy/AdvReac Type Severity Reaction Status Date / Time ciprofloxacin [Cipro] Allergy Unknown Hives Verified 09/01/23 21:04 levofloxacin [Levaquin] Allergy Unknown Hives Verified 09/01/23 21:04 metoclopramide [Reglan] Allergy Unknown Hives Verified 09/01/23 21:04 ondansetron [Zofran] Allergy Unknown Itching Verified 09/01/23 21:04 penicillin V Allergy Unknown Hives Verified 09/01/23 21:04 prochlorperazine Allergy Unknown Shortness Verified 09/01/23 21:04 [From Compazine] of Breath Sulfa (Sulfonamide Allergy Unknown Hives Verified 09/01/23 21:04 Antibiotics) thalidomide [From Thalomid] Allergy Unknown Rash Verified 09/01/23 21:04 haloperidol [From Haldol] Allergy Itching Verified 09/01/23 21:04 Review of Systems 2 Review of Systems: Yes all other systems are reviewed and are negative PMFSH Past Medical History Medical History Pulmonary emboli Crohn's disease Chronic, continuous use of opioids Immunosuppression Absence seizure disorder DVT (deep venous thrombosis) Pyloric stenosis Asthma Common variable immunodeficiency Spondylolisthesis, lumbar region Spondylosis of lumbar region without myelopathy or radiculopathy Abdominal pain, chronic, generalized Gastroparesis Spontaneous pneumothorax Chronic pain syndrome Cervicalgia Low back pain Behcet's disease Surgical History History of hernia surgery Family History Family History Father Hairy cell leukemia Social History Social History Household Members: Children Household Members Other:: son Housing: Condominium Do you presently have visiting nurse or other home services: No Unable to assess alcohol history related to: Unknown Alcohol intake: never Patient Tobacco Use Status: Never used Tobacco Smoked in Last 30 Days: No Second Hand Smoke Exposure: No Advance Directives: Yes Advance Directives on File: Yes Advance Directives Date on File: 04/19/23 Patient : No service: No Current occupational status: unemployed Physical Exam ED Vital Signs: Vital Signs - 24 hr 09/01/23 20:58 09/01/23 22:05 09/02/23 00:04 Temperature 98.5 F Pulse Rate 91 91 Respiratory Rate 17 18 Blood Pressure 113/59 L Pulse Oximetry 100 99 Oxygen Delivery Method Room Air Room Air 09/02/23 00:45 09/02/23 03:02 09/02/23 03:15 Temperature 100.0 F 99.1 F Pulse Rate 98 91 87 Respiratory Rate 17 17 18 Blood Pressure 121/63 114/73 Pulse Oximetry 93 95 Oxygen Delivery Method Room Air Room Air 09/02/23 03:20 Temperature 99.1 F Pulse Rate 87 Respiratory Rate 18 Blood Pressure 114/73 Pulse Oximetry 95 Oxygen Delivery Method Room Air BMI result Body Mass Index 26.4 Const Other: The patient was asleep when I walked into the room but woke easily. She woke to a normal mental status. She did not seem in distress. HENMT Other: The lip seem dry but the mucous membranes seemed moist. No obvious intraoral swelling. No signs of a peritonsillar abscess. She was not having any trouble managing her secretions. No trismus Eyes Other: Pupils are round equal, conjunctivae are clear Neck Other: No cervical adenopathy appreciated. Resp Other: No obvious wheezes or crackles on exam Effort & Inspection: normal respiratory effort Auscultation: clear to auscultation bilaterally Cardio Other: I do not hear a cardiac murmur Rate: regular rate Rhythm: regular rhythm Heart sounds: S1 normal heart sound present and S2 normal heart sound present GI Other: Abdomen is soft and nontender Back/Spine/Pelvis Other: The patient has an accessed Port-A-Cath in the skin in the region of the right flank. No sign of erythema or soft tissue swelling or discomfort in this area Skin Other: Skin is pale and dry and unremarkable Neuro Other: The patient is awake and alert. Mental status seems normal. Cranial nerves are grossly intact. Moves her extremities symmetrically. Grossly neurologically intact. Extrem Other: No peripheral edema, no calf swelling or tenderness Medications Administered Discontinued Medications Generic Name Dose Route Start Last Admin Trade Name Freq PRN Reason Stop Dose Admin Acetaminophen 975 mg 09/02/23 02:42 09/02/23 02:52 Acetaminophen 325 Mg Tablet PO 09/02/23 02:43 975 mg ONCE ONE Administration Albuterol/Ipratropium 3 ml 09/01/23 23:21 09/02/23 00:03 Albuterol/Iprat 2.5/0.5mg 3 Ml Ampul.Neb INHALE 09/01/23 23:22 3 ml ONCE ONE Administration Albuterol/Ipratropium 3 ml 09/02/23 02:42 09/02/23 03:02 Albuterol/Iprat 2.5/0.5mg 3 Ml Ampul.Neb INHALE 09/02/23 02:43 3 ml ONCE ONE Administration Clindamycin HCl 600 mg 09/02/23 02:43 09/02/23 02:52 Clindamycin Hcl 300 Mg Capsule PO 09/02/23 02:44 600 mg ONCE ONE Administration Ibuprofen 400 mg 09/02/23 02:42 09/02/23 02:52 Ibuprofen 400 Mg Tablet PO 09/02/23 02:43 400 mg ONCE ONE Administration Medical Decision Making Medical Decision Making MDM Narrative: The patient is a 43-year-old woman with multiple medical issues who has a Port-A-Cath in her right flank which is accessed because she receives TPN. She is also on apixaban for anticoagulation. The patient comes to the emergency room 2 days after being started on cefdinir for strep throat which was diagnosed at a local urgent care center. The patient says she is quite certain that she was told that she had in fact tested positive for strep throat at the urgent care clinic. Despite being on cefdinir she has had fevers and worsening cough with sputum and mild shortness of breath. However she reports her sore throat is feeling better. The patient's presentation therefore is somewhat surprising. She describes having a fever of 102.9 at home earlier this evening despite being on cefdinir in the setting of a recent diagnosis of a positive rapid strep. Clinically the patient did not seem toxic or septic. She does not seem to be describing any symptoms of a failure to treat the strep throat or a complication of strep throat. There is no suggestion of a peritonsillar abscess on her physical exam or retropharyngeal abscess. She in fact says that her sore throat symptoms are improved on the cefdinir. Her symptoms at this point are more the cough and sputum and fevers. The patient's chest x-ray is change from previous chest x-rays. The patient's white count was normal at 10.8 although she had a slight left shift with 80% neutrophils. Her ESR is elevated at 39. This is a change from previous values. From 2019 to 2022 her ESRs were all in the single digits. Her C-reactive protein is significantly elevated at 22.51. In recent years her CRP has always been below 3. Her procalcitonin however is normal at 0.10 It is difficult to know what to make of the patient's presentation. Cefdinir is a 3rd generation cephalosporin. It seems surprising that she would have persistent fevers and worsening respiratory symptoms while on cefdinir. The patient says that ?I have been septic more than 20 times, I do not feel like I am septic right now. ? The fact that the patient has a Port-A-Cath which is accessed and through which she receives TPN other factor which complicates her picture. She took her last previous dose of cefdinir this morning. Given her report of fevers and her elevated CRP I obtained blood cultures, 2 peripheral blood cultures and one culture from the patient's Port-A-Cath line. Despite the patient's abnormal inflammatory markers the patient does not seem toxic or septic. Her lactate is normal. Her vital signs were normal. Her procalcitonin was normal. A venous blood gas was normal. Overall therefore the patient does not seem obviously ill in a manner that indicates a need for hospitalization. Since she is having fevers while on cefdinir I will change her antibiotic to clindamycin 600 mg t.i.d. (the patient has multiple antibiotic allergies). Otherwise the patient has stable vital signs and seems well enough for outpatient management. She says that she has an appointment at [facility] to change the access to her Port-A-Cath. She says that she also has an appointment at [facility] with a primary care doctor. She is advised to take the clindamycin and to keep these appointments later today. Lab Data 09/01/23 21:16 09/01/23 21:16 Labs: Lab Results 09/01/23 09/02/23 09/02/23 Range/Units 21:16 00:25 02:20 WBC 10.8 (4.8-10.8) X10*3/uL RBC 3.99 L (4.20-5.50) X10*6/uL Hgb 12.2 (12.0-16.0) g/dl Hct 35.6 L (37.0-47.0) % MCV 89.2 (80.0-98.0) fL MCH 30.6 (27.0-33.0) pg MCHC 34.3 (31.0-35.0) g/dl RDW 12.7 (11.0-16.0) % Plt Count 224 (160-400) X10*3/uL MPV 10.6 (9.4-12.3) fL Immature Gran % (Auto) 0.4 (0.0-0.4) % Neut % (Auto) 80.2 H (45-73) % Lymph % (Auto) 10.1 L (20-40) % [place] % (Auto) 8.3 (2-11) % Eos % (Auto) 0.6 (0-4) % Baso % (Auto) 0.4 (0-2) % Lymph # (Auto) 1.1 L (1.2-4.9) X10*3/uL [place] # (Auto) 0.9 (0.1-1.2) X10*3/uL Eos # (Auto) 0.1 (0.0-0.4) X10*3/uL Baso # (Auto) 0.0 (0.0-0.2) X10*3/uL Abs Immat Gran (auto) 0.04 H (0.00-0.03) X10*3/uL Absolute Neuts (auto) 8.7 H (2.0-8.3) x10*3/uL Absolute Nucleated RBC 0.000 (0.0-0.012) X10*3/uL Nucleated RBC % (auto) 0.0 (0.0-0.2) /100WBC ESR (0-20) MM/HR D-Dimer High Sensitivty 249 NG/ML VBG pH 7.44 H (7.32-7.43) VBG pCO2 34 mmHg VBG pO2 118 mmHg VBG HCO3 23 (22-26) mmol/L VBG O2 Saturation 99.0 % VBG Base Excess 0.0 mmol/L Sodium 139 (135-145) mmol/L Potassium 4.0 (3.3-5.1) mmol/L Chloride 102 (96-108) mmol/L Carbon Dioxide 22 (22-29) mmol/L Anion Gap 19 (12-20) BUN 16 (9-16) mg/dL Creatinine 0.67 (0.5-1.4) mg/dL Estim Creat Clear Calc 86.6 Estimated GFR > 60 Random Glucose 86 (60-115) mg/dL Lactic Acid 0.8 (0.5-2.0) mmol/L Calcium 9.1 D (8.4-10.2) mg/dL Total Bilirubin 0.4 (0.0-1.0) mg/dL AST 12 (5-31) U/L ALT 10 (0-31) U/L Alkaline Phosphatase 67 (39-117) U/L C-Reactive Protein 22.51 H (< or = 0.50) mg/dL Total Protein 7.2 (6.5-8.0) g/dL Albumin 4.3 (3.5-5.0) g/dL Procalcitonin 0.10 ng/mL Influenza Type A (PCR) NEGATIVE (Negative) Influenza Type B (PCR) NEGATIVE (Negative) RSV RNA Qual (PCR) NEGATIVE (Negative) SARS-CoV-2 RNA (RT-PCR) NEGATIVE (Negative) 09/02/23 Range/Units 21:16 WBC (4.8-10.8) X10*3/uL RBC (4.20-5.50) X10*6/uL Hgb (12.0-16.0) g/dl Hct (37.0-47.0) % MCV (80.0-98.0) fL MCH (27.0-33.0) pg MCHC (31.0-35.0) g/dl RDW (11.0-16.0) % Plt Count (160-400) X10*3/uL MPV (9.4-12.3) fL Immature Gran % (Auto) (0.0-0.4) % Neut % (Auto) (45-73) % Lymph % (Auto) (20-40) % [place] % (Auto) (2-11) % Eos % (Auto) (0-4) % Baso % (Auto) (0-2) % Lymph # (Auto) (1.2-4.9) X10*3/uL [place] # (Auto) (0.1-1.2) X10*3/uL Eos # (Auto) (0.0-0.4) X10*3/uL Baso # (Auto) (0.0-0.2) X10*3/uL Abs Immat Gran (auto) (0.00-0.03) X10*3/uL Absolute Neuts (auto) (2.0-8.3) x10*3/uL Absolute Nucleated RBC (0.0-0.012) X10*3/uL Nucleated RBC % (auto) (0.0-0.2) /100WBC ESR 39 H (0-20) MM/HR D-Dimer High Sensitivty NG/ML VBG pH (7.32-7.43) VBG pCO2 mmHg VBG pO2 mmHg VBG HCO3 (22-26) mmol/L VBG O2 Saturation % VBG Base Excess mmol/L Sodium (135-145) mmol/L Potassium (3.3-5.1) mmol/L Chloride (96-108) mmol/L Carbon Dioxide (22-29) mmol/L Anion Gap (12-20) BUN (9-16) mg/dL Creatinine (0.5-1.4) mg/dL Estim Creat Clear Calc Estimated GFR Random Glucose (60-115) mg/dL Lactic Acid (0.5-2.0) mmol/L Calcium (8.4-10.2) mg/dL Total Bilirubin (0.0-1.0) mg/dL AST (5-31) U/L ALT (0-31) U/L Alkaline Phosphatase (39-117) U/L C-Reactive Protein (< or = 0.50) mg/dL Total Protein (6.5-8.0) g/dL Albumin (3.5-5.0) g/dL Procalcitonin ng/mL Influenza Type A (PCR) (Negative) Influenza Type B (PCR) (Negative) RSV RNA Qual (PCR) (Negative) SARS-CoV-2 RNA (RT-PCR) (Negative) Discharge Plan Discharge Clinical Impression: Fever, Cough Patient Disposition: Home, Self-Care Additional Instructions: It is surprising that you are continuing to have fevers despite being on cefdinir, an antibiotic typically against strep. Since you have had these fevers we ernie blood cultures in the emergency room today to see if we might identify some other process at work. I think it would be reasonable danger antibiotic from cefdinir to clindamycin. Therefore please stop your current antibiotic and probiotic instead. The clindamycin has been prescribed for you to take 600 mg 3 times a day (approximately every 8 hours). Please drink lot of fluids. Use acetaminophen as needed for discomfort. Keep your appointments later today as scheduled. Return to the emergency room if significantly worse. Prescriptions: New clindamycin HCl 300 mg capsule 600 mg PO TID 10 Days Qty: 60 0RF No Action albuterol sulfate 90 mcg/actuation Hfa Aerosol Inhaler 2 puff INHALATION Q4H PRN (Reason: Wheezing) Incruse Ellipta 62.5 mcg/actuation Blister With Device 1 inh INHALATION DAILY fluticasone furoate-vilanterol [Breo Ellipta] 200-25 mcg/dose Blister With Device 1 inh INHALATION Q24H diphenhydramine HCl 50 mg/mL solution 25 mg IV QID PRN (Reason: Nausea) ondansetron HCl (PF) 4 mg/2 mL solution 4 mg IV QID PRN (Reason: Nausea) promethazine 25 mg Tablet 25 mg PO QID PRN (Reason: Nausea And Vomiting) levetiracetam [Keppra] 100 mg/mL Solution 700 mg PO BID Movantik 12.5 mg tablet 12.5 mg PO DAILY 30 Days Qty: 30 0RF Rx Instructions: must be taken on empty stomach; no food 1 hr after or 2-3 hrs before dose pantoprazole 40 mg tablet,delayed release (DR/EC) 40 mg PO DAILY PRN (Reason: ACID REFLEX) Eliquis 5 mg tablet 5 mg PO BID Qty: 60 0RF doxepin 3 mg tablet 3 mg PO BEDTIME PRN (Reason: Insomnia) ccpbimmflc-ovgbiberwthyy-jqcn [Fioricet] 50-300-40 mg capsule 1 cap PO TID PRN (Reason: Post dural puncture headache) 10 Days Qty: 30 0RF hydromorphone 4 mg tablet 4 mg PO BID PRN (Reason: severe pain (scale score 7-10)) 30 Days Qty: 60 0RF Rx Instructions: Partial fill per patient's request only Referrals: Jose Angel Mckeon MD [Physician] - (Fever, cough) Dora Fam FNP-BC [Primary Care Provider] - (fever, cough) Interventions: ED Discharge Assessment Last Done: 09/02/23 03:20 Discharge Date/Time: 09/02/23 03:21 Print Language: Croatian
[2023-09-01 23:35] LABS: C Reactive Protein 22.51 mg/dL (< or = 0.50)
[2023-09-02] MEDS: Albuterol/Iprat 2.5/0.5MG 3 ML AMPUL.NEB INHALE ×2 (00:03→03:02)
[2023-09-02 00:04] VITALS: PULSE 91; RESP 18; O2SAT 4
[2023-09-02 00:40] LABS: Erythrocyte Sedimentation Rate 39 MM/HR (0-20)
[2023-09-02 00:42] LABS: Lactic Acid 0.8 mmol/L (0.5-2.0)
--- NOTE | 2023-09-02 00:42 | MHC.EDTECH ---
Patient is a difficult stick - Unable to obtain 2nd blood cultures
[2023-09-02 00:45] VITALS: BP 121/63; PULSE 98; RESP 17; TEMP 37.8; O2SAT 93
[2023-09-02 00:48] LABS: D Dimer High Sensitivity 249 NG/ML
[2023-09-02 02:24] LABS: Venous Blood Gas Refer to POC result
[2023-09-02 02:30] LABS: VBG HCO3 23 mmol/L (22-26); VBG pCO2 34 mmHg; VBG pH 7.44 (7.32-7.43); VBG pO2 118 mmHg
[2023-09-02] MEDS: Ibuprofen 400 MG TABLET PO (02:52)
[2023-09-02] MEDS: Clindamycin HCL 300 MG CAPSULE 600 MG PO (02:52)
[2023-09-02] MEDS: Acetaminophen 325 MG TABLET 975 MG PO (02:52)
[2023-09-02 03:02] VITALS: PULSE 91; RESP 17; O2SAT 95
[2023-09-02 03:15] VITALS: BP 114/73; PULSE 87; RESP 18; TEMP 37.3; O2SAT 95
[2023-09-02 03:20] VITALS: BP 114/73; PULSE 87; RESP 18; TEMP 37.3; O2SAT 95
== END 2023-09-02 03:21 | disposition home or self-care (01) ==
PROVIDERS: Emergency Provider Emergency Medicine; PCP Registered Nurse
DX: R06.02 Shortness of breath (principal); R50.9 Fever, unspecified; R05.9 Cough, unspecified; Z79.899 Other long term (current) drug therapy; Z11.52 Encounter for screening for COVID-19; Z20.822 Contact with and (suspected) exposure to COVID-19
CPT/HCPCS: 0241U; 36415; 71046; 80053; 82803; 83605; 84145; 85025; 85379; 85652; 86140; 87040; 87633; 94640; 99284; 99285

== ENCOUNTER 2023-09-03 17:12 | Emergency (ER) | payer MEDICARE, MEDICAID, SELFPAY ==
--- NOTE | ~2023-09-03 | XR_ITS ---
EXAMINATION: XR CHEST CLINICAL INFORMATION: Cough COMPARISON: Baseline 09/01/2023 TECHNIQUE: 2 views of the chest were obtained. FINDINGS: Biapical pleural thickening left greater than right similar to baseline. Chronic blunting of left costophrenic angle similar. No significant abnormality is noted involving the heart, lungs, mediastinum, bony thorax or soft tissues. XR/XR chest 2V IMPRESSION: No active chest disease. Chronic changes as above.
[2023-09-03 17:31] VITALS: BP 125/68; PULSE 96; RESP 16; TEMP 36.8; O2SAT 97; BMI 25.4
[2023-09-03 18:48] LABS: Influenza A PCR NEGATIVE (Negative); Influenza B PCR NEGATIVE (Negative); Resp Syncy Virus RNA Qual PCR NEGATIVE (Negative); SARS COV2 PCR INHOUSE NEGATIVE (Negative)
[2023-09-03 20:52] VITALS: BP 109/59; PULSE 89; RESP 14; TEMP 37.1; O2SAT 94
[2023-09-03 20:52] LABS: MANUAL DIFF FLAG NO
[2023-09-03 20:54] LABS: Basophils Absolute Auto 0.1 X10*3/uL (0.0-0.2); Basophils Percent Auto 0.7 % (0-2); Eosinophils Absolute Auto 0.2 X10*3/uL (0.0-0.4); Eosinophils Percent Auto 2.2 % (0-4); Hematocrit 34.8 % (37.0-47.0); Imm Gran Abs Auto 0.05 X10*3/uL (0.00-0.03); Imm Gran Pct Auto 0.6 % (0.0-0.4); Lymphocytes Absolute Auto 1.8 X10*3/uL (1.2-4.9); Lymphocytes Percent Auto 20.7 % (20-40); Mean Corpuscular HGB Conc 34.5 g/dl (31.0-35.0); Mean Corpuscular Hemoglobin 30.5 pg (27.0-33.0); Mean Corpuscular Volume 88.5 fL (80.0-98.0); Mean Platelet Volume 10.3 fL (9.4-12.3); Monocytes Absolute Auto 0.7 X10*3/uL (0.1-1.2); Monocytes Percent Auto 8.3 % (2-11); Neutrophils Absolute Auto 5.8 x10*3/uL (2.0-8.3); Neutrophils Percent Auto 67.5 % (45-73); Platelet Count 243 X10*3/uL (160-400); Red Blood Count 3.93 X10*6/uL (4.20-5.50); Red Cell Distribution Width 12.6 % (11.0-16.0); White Blood Count 8.7 X10*3/uL (4.8-10.8)
[2023-09-03 21:11] LABS: Alanine Aminotransferase 10 U/L (0-31); Albumin Level 4.2 g/dL (3.5-5.0); Alkaline Phosphatase 62 U/L (39-117); Anion Gap 16 (12-20); Aspartate Amino Transferase 15 U/L (5-31); Bilirubin Total 0.3 mg/dL (0.0-1.0); Blood Urea Nitrogen 16 mg/dL (9-16); Calcium 9.2 mg/dL (8.4-10.2); Carbon Dioxide 25 mmol/L (22-29); Chloride 103 mmol/L (96-108); Creatinine Clr Calc Pharmacy 69.5; Estimated Glomerular Filt Rate > 60; Glucose Random 161 mg/dL (60-115); Potassium 3.5 mmol/L (3.3-5.1); Sodium 140 mmol/L (135-145); Total Protein 7.1 g/dL (6.5-8.0)
--- NOTE | 2023-09-03 21:16 | ED_ITS ---
HPI - General Adult General Chief complaint: General Medical Stated complaint: fever,back pain,sob seen here 08/31 Time Seen by Provider: 09/03/23 21:16 History of Present Illness HPI narrative: The patient is a 43-year-old female with a history of multiple medical problems. She has a Port-A-Cath in her right flank through which he receives TPN and IV fluids on a regular basis. The patient developed a sore throat 5 days ago on Tuesday evening. The next day on Tuesday she went to an urgent care where she says she tested positive for strep throat and was started on cefdinir. On the cefdinir her the sore throat improved but she developed a cough and green sputum and had ongoing fevers up to 103. She was seen here 2 days ago on . Blood cultures were drawn as was a culture from her Port-A-Cath. Her C-reactive protein was extremely high although her white blood count was not significantly elevated and her procalcitonin was normal. Her antibiotic was changed from cefdinir to clindamycin 600 mg t.i.d. and she was discharged to home. She followed up with her regular doctor yesterday on Tuesday who advised her to come back to the emergency room if she had ongoing fevers over the weekend. Today she says she had fevers up to 102 at home. She is complaining of a headache, some worsening sore throat, and some low back pain. Because of her ongoing fevers and these ongoing symptoms she came to the emergency room. No urinary symptoms. No vomiting. Related Data Home Medications ?Medication ?Instructions ?Recorded ?Confirmed albuterol sulfate 90 mcg/actuation 2 puff inhalation Q4H PRN Wheezing 12/12/20 04/19/23 aerosol inhaler fluticasone furoate 200 1 inh inhalation Q24H 12/12/20 04/19/23 mcg-vilanterol 25 mcg/dose inhalation powder (Breo Ellipta) umeclidinium 62.5 mcg/actuation 1 inh inhalation DAILY 12/12/20 04/19/23 blister powder for inhalation (Incruse Ellipta) diphenhydramine HCl 50 mg/mL 25 mg IV QID PRN Nausea 03/12/21 04/19/23 injection solution ondansetron HCl (PF) 4 mg/2 mL 4 mg IV QID PRN Nausea 03/12/21 04/19/23 injection solution levetiracetam 100 mg/mL oral 700 mg PO BID 08/18/21 04/19/23 solution (Keppra) promethazine 25 mg tablet 25 mg PO QID PRN Nausea And 08/18/21 04/19/23 Vomiting pantoprazole 40 mg tablet,delayed 40 mg PO DAILY PRN ACID REFLEX 02/05/23 04/19/23 release doxepin 3 mg tablet 3 mg PO BEDTIME PRN Insomnia 08/24/23 Previous Rx's ?Medication ?Instructions ?Recorded apixaban 5 mg tablet (Eliquis) 5 mg PO BID #60 tabs 02/15/23 naloxegol 12.5 mg tablet (Movantik) 12.5 mg PO DAILY 30 days #30 tabs 04/21/23 csgemyndtx-tboosohjzdcow-mhotnlzv 1 cap PO TID PRN Post dural 05/26/23 50 mg-300 mg-40 mg capsule puncture headache 10 days #30 caps (Fioricet) hydromorphone 4 mg tablet 4 mg PO BID PRN severe pain (scale 08/18/23 score 7-10) 30 days #60 tabs clindamycin HCl 300 mg capsule 600 mg (2 x 300 mg) PO TID 10 days 09/02/23 #60 caps Allergies Allergy/AdvReac Type Severity Reaction Status Date / Time ciprofloxacin [Cipro] Allergy Unknown Hives Verified 09/03/23 17:34 levofloxacin [Levaquin] Allergy Unknown Hives Verified 09/03/23 17:34 metoclopramide [Reglan] Allergy Unknown Hives Verified 09/03/23 17:34 ondansetron [Zofran] Allergy Unknown Itching Verified 09/03/23 17:34 penicillin V Allergy Unknown Hives Verified 09/03/23 17:34 prochlorperazine Allergy Unknown Shortness Verified 09/03/23 17:34 [From Compazine] of Breath Sulfa (Sulfonamide Allergy Unknown Hives Verified 09/03/23 17:34 Antibiotics) thalidomide [From Thalomid] Allergy Unknown Rash Verified 09/03/23 17:34 haloperidol [From Haldol] Allergy Itching Verified 09/03/23 17:34 Review of Systems 2 Review of Systems: Yes all other systems are reviewed and are negative PMFSH Past Medical History Medical History Pulmonary emboli Crohn's disease Chronic, continuous use of opioids Immunosuppression Absence seizure disorder DVT (deep venous thrombosis) Pyloric stenosis Asthma Common variable immunodeficiency Spondylolisthesis, lumbar region Spondylosis of lumbar region without myelopathy or radiculopathy Abdominal pain, chronic, generalized Gastroparesis Spontaneous pneumothorax Chronic pain syndrome Cervicalgia Low back pain Behcet's disease Surgical History History of hernia surgery Family History Family History Father Hairy cell leukemia Social History Social History Household Members: Children Household Members Other:: son [facility] Do you presently have visiting nurse or other home services: No Unable to assess alcohol history related to: Unknown Alcohol intake: never Patient Tobacco Use Status: Never used Tobacco Smoked in Last 30 Days: No Second Hand Smoke Exposure: No Use of substances other than those prescribed or required for medical reasons: No Advance Directives: Yes Advance Directives on File: Yes Advance Directives Date on File: 04/19/23 Patient : No service: No Current occupational status: unemployed Physical Exam ED Vital Signs: Vital Signs - 24 hr 09/03/23 17:31 09/03/23 20:52 09/03/23 23:41 Temperature 98.2 F 98.8 F 99.5 F Pulse Rate 96 89 86 Respiratory Rate 16 14 14 Blood Pressure 125/68 109/59 L 120/65 Pulse Oximetry 97 94 96 Oxygen Delivery Method Room Air Room Air BMI result Body Mass Index 25.4 Const Other: The patient is a 43-year-old woman who is awake and alert. She seemed somewhat restless but did not seem in pain or respiratory distress nor does she seem obviously toxic in any way. HENMT Other: Face is symmetrical. Mucous membranes moist. The posterior pharynx is unremarkable. Eyes Other: Pupils are round equal, conjunctivae clear, extraocular movements intact Neck Other: Neck is supple, no neck swelling, no stridor, no significant cervical adenopathy Resp Effort & Inspection: normal respiratory effort Auscultation: clear to auscultation bilaterally Cardio Other: No murmur Rate: regular rate Rhythm: regular rhythm Heart sounds: S1 normal heart sound present and S2 normal heart sound present GI Other: Abdomen is soft and nontender Back/Spine/Pelvis Other: There is diffuse tenderness over the lower back both in the midline and on the sides. Skin Other: Skin is dry and unremarkable, no rash Neuro Other: The patient is awake and alert with a normal mental status. There was a suggestion of a mild restlessness present as she lay on the stretcher. Her face was symmetrical, speech clear, eye movements normal, moving her extremities normally, gait steady. Extrem Other: No calf swelling or tenderness, no peripheral edema, no asymmetry Medical Decision Making Medical Decision Making MDM Narrative: The patient is a 43-year-old female with a history of multiple medical problems. She has an implanted pump in her back for bupivacaine for chronic back pain. She also has a Port-A-Cath in her right flank through which she receives TPN and IV fluids at home. The patient developed a sore throat and tested positive for strep at an urgent care center 4 days ago. She was prescribed cefdinir but came to the hospital 2 days ago because she said she was having ongoing fevers despite the cefdinir. Her workup here in the emergency room showed a remarkably elevated C-reactive protein of 22 but a normal procalcitonin and a not very remarkable white blood count. Peripheral blood cultures were obtained and a blood culture was also sent from her Port-A-Cath. Ultimately at that visit the patient was discharged on clindamycin. She returns saying that she continues to have fevers up to 102. She is afebrile here. Her vital signs are normal here. Labs today show a white count of 8.7 with a normal differential, 67% neutrophils, 20% lymphocytes, her CRP today is 10.3 down from 22.5 2 days ago, her ESR is 30 which is down from 39 2 days ago, her procalcitonin is 0.04 which is down from 0.102 days ago. Her lactic acid is 0.6. Although the patient reports having ongoing fevers at home she does not have fevers here and she did not have fevers when she was here in the emergency room 2 days ago. Given her normal vital signs and the improvement in her inflammatory markers I do not think the patient is getting worse. Additionally I do not see any indication for advanced imaging. Nothing in her physical exam makes me think that she has any kind of significant neck or back infection. Think she may be discharged to continue her current clindamycin and to follow up with her regular doctor or return if worse. Lab Data 09/03/23 20:48 09/03/23 20:48 Labs: Lab Results 09/03/23 09/03/23 09/03/23 Range/Units 17:57 20:48 22:25 WBC 8.7 (4.8-10.8) X10*3/uL RBC 3.93 L (4.20-5.50) X10*6/uL Hgb 12.0 (12.0-16.0) g/dl Hct 34.8 L (37.0-47.0) % MCV 88.5 (80.0-98.0) fL MCH 30.5 (27.0-33.0) pg MCHC 34.5 (31.0-35.0) g/dl RDW 12.6 (11.0-16.0) % Plt Count 243 (160-400) X10*3/uL MPV 10.3 (9.4-12.3) fL Immature Gran % (Auto) 0.6 H (0.0-0.4) % Neut % (Auto) 67.5 (45-73) % Lymph % (Auto) 20.7 (20-40) % [place] % (Auto) 8.3 (2-11) % Eos % (Auto) 2.2 (0-4) % Baso % (Auto) 0.7 (0-2) % Lymph # (Auto) 1.8 (1.2-4.9) X10*3/uL [place] # (Auto) 0.7 (0.1-1.2) X10*3/uL Eos # (Auto) 0.2 (0.0-0.4) X10*3/uL Baso # (Auto) 0.1 (0.0-0.2) X10*3/uL Abs Immat Gran (auto) 0.05 H (0.00-0.03) X10*3/uL Absolute Neuts (auto) 5.8 (2.0-8.3) x10*3/uL Absolute Nucleated RBC 0.000 (0.0-0.012) X10*3/uL Nucleated RBC % (auto) 0.0 (0.0-0.2) /100WBC ESR 30 H (0-20) MM/HR VBG pH (7.32-7.43) VBG pCO2 mmHg VBG pO2 mmHg VBG HCO3 (22-26) mmol/L VBG O2 Saturation % VBG Base Excess mmol/L Sodium 140 (135-145) mmol/L Potassium 3.5 (3.3-5.1) mmol/L Chloride 103 (96-108) mmol/L Carbon Dioxide 25 (22-29) mmol/L Anion Gap 16 (12-20) BUN 16 (9-16) mg/dL Creatinine 0.82 (0.5-1.4) mg/dL Estim Creat Clear Calc 69.5 Estimated GFR > 60 Random Glucose 161 H (60-115) mg/dL Lactic Acid 0.6 (0.5-2.0) mmol/L Calcium 9.2 (8.4-10.2) mg/dL Total Bilirubin 0.3 (0.0-1.0) mg/dL AST 15 (5-31) U/L ALT 10 (0-31) U/L Alkaline Phosphatase 62 (39-117) U/L C-Reactive Protein 10.30 H (< or = 0.50) mg/dL Total Protein 7.1 (6.5-8.0) g/dL Albumin 4.2 (3.5-5.0) g/dL Procalcitonin 0.04 ng/mL Urine Color Urine Appearance Urine pH (5.0-9.0) Ur Specific [place] (1.005-1.025) Urine Protein (Neg-Trace) mg/dL Urine Glucose (UA) (Negative) mg/dL Urine Ketones (Negative) mg/dL Urine Blood (Negative) Urine Nitrite (Negative) Ur Leukocyte Esterase (Negative) Urine RBC (0-2) /HPF Urine WBC (0-5) /HPF Ur Squamous Epith Cells (0-2) /HPF Calcium Oxalate Crystal Urine Bacteria (None Seen) Hyaline Casts (0-2) /LPF Influenza Type A (PCR) NEGATIVE (Negative) Influenza Type B (PCR) NEGATIVE (Negative) RSV RNA Qual (PCR) NEGATIVE (Negative) SARS-CoV-2 RNA (RT-PCR) NEGATIVE (Negative) 09/03/23 09/03/23 Range/Units 22:37 22:49 WBC (4.8-10.8) X10*3/uL RBC (4.20-5.50) X10*6/uL Hgb (12.0-16.0) g/dl Hct (37.0-47.0) % MCV (80.0-98.0) fL MCH (27.0-33.0) pg MCHC (31.0-35.0) g/dl RDW (11.0-16.0) % Plt Count (160-400) X10*3/uL MPV (9.4-12.3) fL Immature Gran % (Auto) (0.0-0.4) % Neut % (Auto) (45-73) % Lymph % (Auto) (20-40) % [place] % (Auto) (2-11) % Eos % (Auto) (0-4) % Baso % (Auto) (0-2) % Lymph # (Auto) (1.2-4.9) X10*3/uL [place] # (Auto) (0.1-1.2) X10*3/uL Eos # (Auto) (0.0-0.4) X10*3/uL Baso # (Auto) (0.0-0.2) X10*3/uL Abs Immat Gran (auto) (0.00-0.03) X10*3/uL Absolute Neuts (auto) (2.0-8.3) x10*3/uL Absolute Nucleated RBC (0.0-0.012) X10*3/uL Nucleated RBC % (auto) (0.0-0.2) /100WBC ESR (0-20) MM/HR VBG pH 7.45 H (7.32-7.43) VBG pCO2 44 mmHg VBG pO2 55 mmHg VBG HCO3 31 H (22-26) mmol/L VBG O2 Saturation 87.0 % VBG Base Excess 6.8 mmol/L Sodium (135-145) mmol/L Potassium (3.3-5.1) mmol/L Chloride (96-108) mmol/L Carbon Dioxide (22-29) mmol/L Anion Gap (12-20) BUN (9-16) mg/dL Creatinine (0.5-1.4) mg/dL Estim Creat Clear Calc Estimated GFR Random Glucose (60-115) mg/dL Lactic Acid (0.5-2.0) mmol/L Calcium (8.4-10.2) mg/dL Total Bilirubin (0.0-1.0) mg/dL AST (5-31) U/L ALT (0-31) U/L Alkaline Phosphatase (39-117) U/L C-Reactive Protein (< or = 0.50) mg/dL Total Protein (6.5-8.0) g/dL Albumin (3.5-5.0) g/dL Procalcitonin ng/mL Urine Color Yellow Urine Appearance Cloudy Urine pH 6.0 (5.0-9.0) Ur Specific [place] >= 1.030 H (1.005-1.025) Urine Protein Trace (Neg-Trace) mg/dL Urine Glucose (UA) Negative (Negative) mg/dL Urine Ketones 40 (Negative) mg/dL Urine Blood Negative (Negative) Urine Nitrite Negative (Negative) Ur Leukocyte Esterase Trace H (Negative) Urine RBC 3-5 H (0-2) /HPF Urine WBC 6-10 H (0-5) /HPF Ur Squamous Epith Cells 3-5 (0-2) /HPF Calcium Oxalate Crystal Present Urine Bacteria None Seen (None Seen) Hyaline Casts 3-5 (0-2) /LPF Influenza Type A (PCR) (Negative) Influenza Type B (PCR) (Negative) RSV RNA Qual (PCR) (Negative) SARS-CoV-2 RNA (RT-PCR) (Negative) Discharge Plan Discharge Clinical Impression: Fever, Headache, Back pain Patient Disposition: Home, Self-Care Additional Instructions: Your abnormal blood tests that were very concerning 2 days ago are considerably better. Additionally the blood cultures that were sent 2 days ago have been negative. Given how much better your blood tests are I think that we should have you continue your current antibiotics and have your doctor repeat your blood tests again on Tuesday. Therefore please continue the clindamycin you have been taking. Drink lot of fluids. Return to the emergency room if significantly worse. Prescriptions: No Action albuterol sulfate 90 mcg/actuation Hfa Aerosol Inhaler 2 puff INHALATION Q4H PRN (Reason: Wheezing) Incruse Ellipta 62.5 mcg/actuation Blister With Device 1 inh INHALATION DAILY fluticasone furoate-vilanterol [Breo Ellipta] 200-25 mcg/dose Blister With Device 1 inh INHALATION Q24H diphenhydramine HCl 50 mg/mL solution 25 mg IV QID PRN (Reason: Nausea) ondansetron HCl (PF) 4 mg/2 mL solution 4 mg IV QID PRN (Reason: Nausea) promethazine 25 mg Tablet 25 mg PO QID PRN (Reason: Nausea And Vomiting) levetiracetam [Keppra] 100 mg/mL Solution 700 mg PO BID Movantik 12.5 mg tablet 12.5 mg PO DAILY 30 Days Qty: 30 0RF Rx Instructions: must be taken on empty stomach; no food 1 hr after or 2-3 hrs before dose pantoprazole 40 mg tablet,delayed release (DR/EC) 40 mg PO DAILY PRN (Reason: ACID REFLEX) Eliquis 5 mg tablet 5 mg PO BID Qty: 60 0RF doxepin 3 mg tablet 3 mg PO BEDTIME PRN (Reason: Insomnia) clindamycin HCl 300 mg capsule 600 mg PO TID 10 Days Qty: 60 0RF ewtajxxxlz-[id number]-yypc [Fioricet] 50-300-40 mg capsule 1 cap PO TID PRN (Reason: Post dural puncture headache) 10 Days Qty: 30 0RF hydromorphone 4 mg tablet 4 mg PO BID PRN (Reason: severe pain (scale score 7-10)) 30 Days Qty: 60 0RF Rx Instructions: Partial fill per patient's request only Referrals: Jose Angel Mckeon MD [Physician] - (Fevers) Dora Fam FNP-BC [Primary Care Provider] - (Fevers) Interventions: ED Discharge Assessment Last Done: 09/03/23 23:41 Discharge Date/Time: 09/03/23 23:42 Print Language: Slovenian
[2023-09-03 22:02] LABS: Procalcitonin 0.04 ng/mL
[2023-09-03 22:27] LABS: Erythrocyte Sedimentation Rate 30 MM/HR (0-20)
[2023-09-03 22:46] LABS: VBG Base Excess 6.8 mmol/L; VBG HCO3 31 mmol/L (22-26); VBG pCO2 44 mmHg; VBG pH 7.45 (7.32-7.43); VBG pO2 55 mmHg
[2023-09-03 22:51] LABS: Lactic Acid 0.6 mmol/L (0.5-2.0)
[2023-09-03 22:51] LABS: Venous Blood Gas Refer to POC result
[2023-09-03 23:01] LABS: Appearance Urine Cloudy; Color Urine Yellow; Glucose Urine UA Negative (Negative); Leukocyte Esterase Urine Trace (Negative); Nitrite Urine Negative (Negative); Specific Gravity - Urine >= 1.030 (1.005-1.025); UMIC TRIGGER UACC YES; Urine Blood Negative (Negative); Urine Ketones 40 mg/dL (Negative); Urine Protein Trace mg/dL (Neg-Trace)
[2023-09-03 23:12] LABS: Bacteria Urine None Seen (None Seen); Calcium Oxalate Crystals Urine Present; UACC Culture Trigger YES
[2023-09-03 23:41] VITALS: BP 120/65; PULSE 86; RESP 14; TEMP 37.5; O2SAT 96
== END 2023-09-03 23:42 | disposition home or self-care (01) ==
PROVIDERS: Emergency Provider Emergency Medicine; PCP Registered Nurse
DX: R50.9 Fever, unspecified (principal); M54.50 Low back pain, unspecified; R51.9 Headache, unspecified; R06.02 Shortness of breath; R05.9 Cough, unspecified; Z11.52 Encounter for screening for COVID-19; Z20.822 Contact with and (suspected) exposure to COVID-19; Z79.899 Other long term (current) drug therapy
CPT/HCPCS: 0241U; 36415; 71046; 80053; 81001; 81003; 82803; 83605; 84145; 85025; 85652; 86140; 87040; 87086; 99283; 99284

== ENCOUNTER 2023-09-10 19:16 | Emergency (ER) | payer MEDICARE, MEDICAID, SELFPAY ==
--- NOTE | ~2023-09-10 | XR_ITS ---
EXAMINATION: CHEST 2 VIEWS CLINICAL INFORMATION: cough, congestion. COMPARISON: 09/03/2023. TECHNIQUE: PA and lateral views of the chest obtained. FINDINGS: The lungs are mildly hypoexpanded with basilar markings more likely due to atelectasis. No focal infiltrate, effusion, edema, or pneumothorax. Cardiac and mediastinal silhouettes are within normal limits for technique. Inferiorly placed centimeters catheter tip overlying the mid right atrium again noted. Baclofen pump tubing seen overlying the mid thoracic spine. Chronic asymmetric left pleural capping similar to the prior study. No acute bony abnormality seen XR/XR chest 2V IMPRESSION: Hypoexpanded with basilar markings more likely due to atelectasis. Chronic appearing changes otherwise.
[2023-09-10 19:17] VITALS: BP 138/75; PULSE 104; RESP 20; TEMP 36.6; O2SAT 89; BMI 25.2
--- NOTE | 2023-09-10 19:18 | ED_ITS ---
HPI - URI/Sore Throat General Chief Complaint: Dyspnea Stated Complaint: Difficulty breathing Time Seen by Provider: 09/10/23 20:14 Source: patient Mode of arrival: ambulatory Limitations: no limitations History of Present Illness HPI Narrative: Patient comes to the emergency room complaining of wet cough. Patient states that she recently stopped taking antibiotics, states that she was diagnosed with strep throat couple of weeks ago. Patient states that she went to see her primary care physician yesterday, prednisone was started, today's 8 to of prednisone. Related Data Home Medications ?Medication ?Instructions ?Recorded ?Confirmed albuterol sulfate 90 mcg/actuation 2 puff inhalation Q4H PRN Wheezing 12/12/20 04/19/23 aerosol inhaler fluticasone furoate 200 1 inh inhalation Q24H 12/12/20 04/19/23 mcg-vilanterol 25 mcg/dose inhalation powder (Breo Ellipta) umeclidinium 62.5 mcg/actuation 1 inh inhalation DAILY 12/12/20 04/19/23 blister powder for inhalation (Incruse Ellipta) diphenhydramine HCl 50 mg/mL 25 mg IV QID PRN Nausea 03/12/21 04/19/23 injection solution ondansetron HCl (PF) 4 mg/2 mL 4 mg IV QID PRN Nausea 03/12/21 04/19/23 injection solution levetiracetam 100 mg/mL oral 700 mg PO BID 08/18/21 04/19/23 solution (Keppra) promethazine 25 mg tablet 25 mg PO QID PRN Nausea And 08/18/21 04/19/23 Vomiting pantoprazole 40 mg tablet,delayed 40 mg PO DAILY PRN ACID REFLEX 02/05/23 04/19/23 release doxepin 3 mg tablet 3 mg PO BEDTIME PRN Insomnia 08/24/23 Previous Rx's ?Medication ?Instructions ?Recorded apixaban 5 mg tablet (Eliquis) 5 mg PO BID #60 tabs 02/15/23 naloxegol 12.5 mg tablet (Movantik) 12.5 mg PO DAILY 30 days #30 tabs 04/21/23 vzesitabtj-bxbggpvjaqdex-krbzsyuw 1 cap PO TID PRN Post dural 05/26/23 50 mg-300 mg-40 mg capsule puncture headache 10 days #30 caps (Fioricet) hydromorphone 4 mg tablet 4 mg PO BID PRN severe pain (scale 08/18/23 score 7-10) 30 days #60 tabs clindamycin HCl 300 mg capsule 600 mg (2 x 300 mg) PO TID 10 days 09/02/23 #60 caps albuterol sulfate 90 mcg/actuation 2 puff inhalation Q4-6H PRN 09/10/23 aerosol inhaler shortness of breath or wheezing #8.5 grams prednisone 50 mg tablet 50 mg PO DAILY #4 tabs 09/10/23 Allergies Allergy/AdvReac Type Severity Reaction Status Date / Time ciprofloxacin [Cipro] Allergy Unknown Hives Verified 09/10/23 19:21 levofloxacin [Levaquin] Allergy Unknown Hives Verified 09/10/23 19:21 metoclopramide [Reglan] Allergy Unknown Hives Verified 09/10/23 19:21 ondansetron [Zofran] Allergy Unknown Itching Verified 09/10/23 19:21 penicillin V Allergy Unknown Hives Verified 09/10/23 19:21 prochlorperazine Allergy Unknown Shortness Verified 09/10/23 19:21 [From Compazine] of Breath Sulfa (Sulfonamide Allergy Unknown Hives Verified 09/10/23 19:21 Antibiotics) thalidomide [From Thalomid] Allergy Unknown Rash Verified 09/10/23 19:21 haloperidol [From Haldol] Allergy Itching Verified 09/10/23 19:21 Review of Systems 2 Review of Systems: Constitutional : No Weight loss, No Fever, No Chills, No Night Sweats, No Fatigue, No Malaise ENT/Mouth : No Hearing loss, No Ear Pain, No Nasal Congestion, No Sinus Pain, No Hoarseness, No sore throat, No Rhinorrhea, No Swallowing Difficulty Eyes: No Eye Pain, No Swelling, No Redness, No Foreign Body, No Discharge, No Vision Changes Cardiovascular : No Chest Pain, No SOB, No Dyspnea on Exertion, No Orthopnea, No Edema, No Palpitations Respiratory : Complaining of productive cough, shortness of breath Gastrointestinal : No Nausea, No Vomiting, No Diarrhea, No Constipation, No abdominal Pain, No Hematochezia, No Melena Genitourinary : no irregular bleeding, No Dysuria, No Urinary Frequency, No Hematuria, No Urinary Incontinence, No Urgency, No Flank Pain, No Urinary Flow Changes, No Hesitancy Musculoskeletal : No joint pain, No Myalgias, No Joint Swelling Skin : No Skin Lesions, No rash Neuro : No Weakness, No Numbness, No Paresthesias, No Loss of Consciousness, No Dizziness, No Headache Psych : No Anxiety/Panic, No Depression, No SI/HI/AH/VH, No Social Issues, Heme/Lymph: No Bruising, No Bleeding,No Lymphadenopathy Endocrine : No Polyuria, No Polydipsia, No Temperature Intolerance [facility] Past Medical History Medical History Pulmonary emboli Crohn's disease Chronic, continuous use of opioids Immunosuppression Absence seizure disorder DVT (deep venous thrombosis) Pyloric stenosis Asthma Common variable immunodeficiency Spondylolisthesis, lumbar region Spondylosis of lumbar region without myelopathy or radiculopathy Abdominal pain, chronic, generalized Gastroparesis Spontaneous pneumothorax Chronic pain syndrome Cervicalgia Low back pain Behcet's disease Surgical History History of hernia surgery Family History Family History Father Hairy cell leukemia Social History Social History Household Members: Children Household Members Other:: son Housing: Condominium Do you presently have visiting nurse or other home services: No Unable to assess alcohol history related to: Unknown Alcohol intake: never Patient Tobacco Use Status: Never used Tobacco Smoked in Last 30 Days: No Second Hand Smoke Exposure: No Advance Directives: Yes Advance Directives on File: Yes Advance Directives Date on File: 04/22/23 Patient : No service: No Current occupational status: unemployed Physical Exam 2 Vital Signs: Vital Signs: Last Vital Signs Temp 97.8 F 09/10/23 22:10 Pulse 98 09/10/23 22:10 Resp 16 09/10/23 22:10 BP 151/82 H 09/10/23 22:10 Pulse Ox 94 09/10/23 22:10 O2 Del Method Room Air 09/10/23 22:10 BMI result Body Mass Index 25.2 Const: Other: Appearance: Alert. Oriented X3. No acute distress. Eyes: Pupils equal, round and reactive to light. ENT: Pharynx normal. Neck: Normal inspection. Neck supple. No lymph nodes noted. No crepitus CVS: Normal heart rate and rhythm. Pulses normal. Normal S1 and S2 Respiratory: No respiratory distress. Speaking in full sentences, no wheezing, bilateral rales, no crackles, oxygen saturation 95% on room air Abdomen: Soft and nontender. No rigidity. No distention. Skin: Skin warm and dry. Normal skin color. Normal skin turgor. Extremities: No lower extremity edema. No Lacerations. No Rash Neuro: Oriented X 3. No motor deficit. No sensory deficit. Moving all extremities. No slurred speech. CN 2 through 12 grossly intact Psych: Very anxious Course Course Course Narrative: This is a rapid medical exam. Defer additional HPI, ROS, PE to primary provider. 43-year-old female with history of PE on Eliquis, asthma here with complaints of cough, shortness of breath. Currently on prednisone. 89% RA in triage, tachypnic Additional information delayed d/t need for immediate placement in bed Ordered labs, CXR, viral testing, EKG Patient was brought to the main ED. patient oxygen saturation 95%. Patient started yelling that her oxygen saturation was dropping. On the screen, it read 89%, but the finger probe was not placed correctly and it was a poor waveform. The probe was placed in the patient's finger correctly, oxygen saturation increased to 96% with a good waveform immediately. On auscultation, bilateral rales, no crackles, no wheezing, good air movement. Patient extremely anxious. Medications Administered Discontinued Medications Generic Name Dose Route Start Last Admin Trade Name Rashawn PRN Reason Stop Dose Admin Albuterol Sulfate 5 mg 09/10/23 20:20 09/10/23 20:48 Albuterol Sulfate (0.083%) 2.5 Mg/3 Ml Vial.Neb INHALE 09/10/23 20:21 5 mg ONCE ONE Administration Magnesium Sulfate 2 gm in 50 mls @ 25 mls/hr 09/10/23 20:20 09/10/23 20:32 Magnesium Sulfate/H2o IV 09/10/23 22:19 25 mls/hr ONCE ONE Administration Methylprednisolone Sodium Succinate 125 mg 09/10/23 20:20 09/10/23 20:32 Methylprednisolone Sod Succ 125 Mg/2 Ml Vial IVPUSH 09/10/23 20:21 125 mg ONCE ONE Administration Medical Decision Making Medical Decision Making [facility] Narrative: -my interpretation of labs: Patient's white blood cell count is 12.2. Patient's leukocytosis likely secondary to using prednisone. Patient states she has been taking prednisone for couple of days. Patient's chemistry unremarkable. Serology tested negative for influenza, RSV and COVID -my interpretation of chest: No focal infiltrate, no edema -of note, when patient arrived, in triage she was recorded that patient's oxygen saturation was 89% on room air. However, when patient was put on the monitor, patient was very anxious, shaking, a poor waveform was detected. Once patient became more relaxed, within a few seconds, patient's oxygen saturation with a good waveform was 95%. Throughout the entire ED stay, oxygen saturation has been higher than 95%. -I was informed by the patient's stuck that the patient was ambulated around the emergency room, lowest oxygen saturation was 95% on room air. -discussed with the patient that she likely has viral bronchitis, patient will be coughing for several weeks. -I discussed with the patient that they will send to her pharmacy, [facility], prednisone and albuterol to her pharmacy -patient upset that this getting discharged, patient wants to be admitted. I discussed with the patient that unfortunately, we can not accommodate her request. Patient is doing well, oxygen saturation has not dropped below 95 % even with exertion, she has not been wheezing, during the entire stay in the ED even on arrival. I discussed with the patient that there is nothing different that we would be doing here in the hospital then she would be doing at home. Additionally, being in the hospital put her at higher risk of justa a viral infection and actually worsening her condition. Differential Diagnosis Differential Diagnoses: The differential diagnosis associated with the presentation includes (Asthma exacerbation, bronchitis, pneumonia, viral URI) Lab Data [facility] Lab Attestation statement: I reviewed the patient's lab results. 09/10/23 19:36 09/10/23 19:36 Labs: Lab Results 09/10/23 Range/Units 19:36 WBC 12.2 H (4.8-10.8) X10*3/uL RBC 4.20 (4.20-5.50) X10*6/uL Hgb 12.6 (12.0-16.0) g/dl Hct 37.7 (37.0-47.0) % MCV 89.8 (80.0-98.0) fL MCH 30.0 (27.0-33.0) pg MCHC 33.4 (31.0-35.0) g/dl RDW 12.3 (11.0-16.0) % Plt Count 283 (160-400) X10*3/uL MPV 10.5 (9.4-12.3) fL Immature Gran % (Auto) 0.6 H (0.0-0.4) % Neut % (Auto) 80.8 H (45-73) % Lymph % (Auto) 11.8 L (20-40) % [place] % (Auto) 5.8 (2-11) % Eos % (Auto) 0.6 (0-4) % Baso % (Auto) 0.4 (0-2) % Lymph # (Auto) 1.4 (1.2-4.9) X10*3/uL [place] # (Auto) 0.7 (0.1-1.2) X10*3/uL Eos # (Auto) 0.1 (0.0-0.4) X10*3/uL Baso # (Auto) 0.1 (0.0-0.2) X10*3/uL Abs Immat Gran (auto) 0.07 H (0.00-0.03) X10*3/uL Absolute Neuts (auto) 9.8 H (2.0-8.3) x10*3/uL Absolute Nucleated RBC 0.000 (0.0-0.012) X10*3/uL Nucleated RBC % (auto) 0.0 (0.0-0.2) /100WBC Sodium 140 (135-145) mmol/L Potassium 3.5 (3.3-5.1) mmol/L Chloride 104 (96-108) mmol/L Carbon Dioxide 25 (22-29) mmol/L Anion Gap 15 (12-20) BUN 12 (9-16) mg/dL Creatinine 0.82 (0.5-1.4) mg/dL Estim Creat Clear Calc 69.3 Estimated GFR > 60 Random Glucose 130 H (60-115) mg/dL Lactic Acid 1.0 (0.5-2.0) mmol/L Calcium 8.9 (8.4-10.2) mg/dL Magnesium 2.1 (1.6-2.6) mg/dL Total Bilirubin 0.2 (0.0-1.0) mg/dL Direct Bilirubin < 0.2 (0.0-0.5) mg/dL AST 11 (5-31) U/L ALT 8 (0-31) U/L Alkaline Phosphatase 60 (39-117) U/L Troponin I High Sens < 2.7 (<3.5-17.0) ng/L Total Protein 7.2 (6.5-8.0) g/dL Albumin 4.1 (3.5-5.0) g/dL Influenza Type A (PCR) NEGATIVE (Negative) Influenza Type B (PCR) NEGATIVE (Negative) RSV RNA Qual (PCR) NEGATIVE (Negative) SARS-CoV-2 RNA (RT-PCR) NEGATIVE (Negative) Independent Interpretation I performed an independent interpretation of an: EKG (My interpretation of EKG, sinus rhythm, heart rate 93, no ST segment depression or elevation, no T-wave inversion, QTC 432.) Discharge Plan Discharge Clinical Impression: Asthma, Acute viral bronchitis Patient Disposition: Home, Self-Care Instructions: Asthma (ED), Acute Bronchitis (ED) Additional Instructions: Please follow-up with your primary care physician tomorrow. If you have any worsening or new symptoms, please return to the emergency room or call 911 Prescriptions: New albuterol sulfate 90 mcg/actuation HFA aerosol inhaler 2 puff inhalation Q4-6H PRN (Reason: shortness of breath or wheezing) Qty: 8.5 0RF prednisone 50 mg tablet 50 mg PO DAILY Qty: 4 0RF No Action albuterol sulfate 90 mcg/actuation Hfa Aerosol Inhaler 2 puff INHALATION Q4H PRN (Reason: Wheezing) Incruse Ellipta 62.5 mcg/actuation Blister With Device 1 inh INHALATION DAILY fluticasone furoate-vilanterol [Breo Ellipta] 200-25 mcg/dose Blister With Device 1 inh INHALATION Q24H diphenhydramine HCl 50 mg/mL solution 25 mg IV QID PRN (Reason: Nausea) ondansetron HCl (PF) 4 mg/2 mL solution 4 mg IV QID PRN (Reason: Nausea) promethazine 25 mg Tablet 25 mg PO QID PRN (Reason: Nausea And Vomiting) levetiracetam [Keppra] 100 mg/mL Solution 700 mg PO BID Movantik 12.5 mg tablet 12.5 mg PO DAILY 30 Days Qty: 30 0RF Rx Instructions: must be taken on empty stomach; no food 1 hr after or 2-3 hrs before dose pantoprazole 40 mg tablet,delayed release (DR/EC) 40 mg PO DAILY PRN (Reason: ACID REFLEX) Eliquis 5 mg tablet 5 mg PO BID Qty: 60 0RF doxepin 3 mg tablet 3 mg PO BEDTIME PRN (Reason: Insomnia) clindamycin HCl 300 mg capsule 600 mg PO TID 10 Days Qty: 60 0RF [id number]-xhhyxztknhpyj-wozx [Fioricet] 50-300-40 mg capsule 1 cap PO TID PRN (Reason: Post dural puncture headache) 10 Days Qty: 30 0RF hydromorphone 4 mg tablet 4 mg PO BID PRN (Reason: severe pain (scale score 7-10)) 30 Days Qty: 60 0RF Rx Instructions: Partial fill per patient's request only Discharge Date/Time: 09/10/23 22:25 Print Language: Vincentian
--- NOTE | 2023-09-10 19:20 | ECG_ITS ---
Test Reason : SOB Blood Pressure : / mmHG Vent. Rate : 093 BPM Atrial Rate : 394 BPM P-R Int : 000 ms QRS Dur : 078 ms QT Int : 348 ms P-R-T Axes : 051 017 015 degrees QTc Int : 432 ms Artifact in tracing Normal sinus rhythm Nonspecific ST and T wave abnormality Borderline ECG When compared with ECG of 23-AUG-2023 18:30, No significant changes seen Referred By: Leydi Zarate Electronically Signed By:GABRIELE LEDEZMA
[2023-09-10 19:42] VITALS: O2SAT 94
[2023-09-10 19:45] LABS: MANUAL DIFF FLAG NO
[2023-09-10 19:53] LABS: Basophils Absolute Auto 0.1 X10*3/uL (0.0-0.2); Basophils Percent Auto 0.4 % (0-2); Eosinophils Absolute Auto 0.1 X10*3/uL (0.0-0.4); Eosinophils Percent Auto 0.6 % (0-4); Hematocrit 37.7 % (37.0-47.0); Hemoglobin 12.6 g/dl (12.0-16.0); Imm Gran Abs Auto 0.07 X10*3/uL (0.00-0.03); Imm Gran Pct Auto 0.6 % (0.0-0.4); Lymphocytes Absolute Auto 1.4 X10*3/uL (1.2-4.9); Lymphocytes Percent Auto 11.8 % (20-40); Mean Corpuscular HGB Conc 33.4 g/dl (31.0-35.0); Mean Corpuscular Volume 89.8 fL (80.0-98.0); Mean Platelet Volume 10.5 fL (9.4-12.3); Monocytes Absolute Auto 0.7 X10*3/uL (0.1-1.2); Monocytes Percent Auto 5.8 % (2-11); Neutrophils Absolute Auto 9.8 x10*3/uL (2.0-8.3); Neutrophils Percent Auto 80.8 % (45-73); Platelet Count 283 X10*3/uL (160-400); Red Cell Distribution Width 12.3 % (11.0-16.0); White Blood Count 12.2 X10*3/uL (4.8-10.8)
--- NOTE | 2023-09-10 19:54 | PC.NURSE ---
only one set of blood cultures drawn as pt has port due to hard stick Lab made aware
[2023-09-10 19:56] VITALS: BP 123/75; PULSE 97; RESP 20; TEMP 36.6; O2SAT 95
[2023-09-10 20:04] LABS: Alanine Aminotransferase 8 U/L (0-31); Albumin Level 4.1 g/dL (3.5-5.0); Alkaline Phosphatase 60 U/L (39-117); Anion Gap 15 (12-20); Aspartate Amino Transferase 11 U/L (5-31); Bilirubin Direct < 0.2 mg/dL (0.0-0.5); Bilirubin Total 0.2 mg/dL (0.0-1.0); Blood Urea Nitrogen 12 mg/dL (9-16); Calcium 8.9 mg/dL (8.4-10.2); Carbon Dioxide 25 mmol/L (22-29); Chloride 104 mmol/L (96-108); Creatinine Clr Calc Pharmacy 69.3; Estimated Glomerular Filt Rate > 60; Glucose Random 130 mg/dL (60-115); Magnesium 2.1 mg/dL (1.6-2.6); Potassium 3.5 mmol/L (3.3-5.1); Sodium 140 mmol/L (135-145); Total Protein 7.2 g/dL (6.5-8.0)
[2023-09-10 20:14] LABS: Troponin-I High Sensitivity < 2.7 ng/L (<3.5-17.0)
[2023-09-10 20:25] LABS: Influenza A PCR NEGATIVE (Negative); Influenza B PCR NEGATIVE (Negative); Resp Syncy Virus RNA Qual PCR NEGATIVE (Negative); SARS COV2 PCR INHOUSE NEGATIVE (Negative)
[2023-09-10] MEDS: methylPREDNISolone Sod Succ 125 MG/2 ML VIAL IVPUSH (20:32)
[2023-09-10] MEDS: Magnesium Sulfate/H2O 2 GM/50 ML PIGGYBACK IV (20:32)
[2023-09-10] MEDS: Albuterol Sulfate (0.083%) 2.5 MG/3 ML VIAL.NEB 5 MG INHALE (20:48)
[2023-09-10 20:50] VITALS: PULSE 91; RESP 22; O2SAT 91
--- NOTE | 2023-09-10 21:04 | MHC.EDTECH ---
PROVIDER WAS MADE AWARE THAT 1 SET OF CULTURE DRAWN ,SINCE PATIENT HAS A PORT ,BECAUSE PATIENT A DIFFICULT STICK .
--- NOTE | 2023-09-10 22:05 | MHC.EDTECH ---
WHILE AMBULATING PATIENT ,PATIENT O2 SAT SAT WHEN UP TO 94 % AND REMAIN AT 94 % PROVIDER AND RN AWARE ,VITALS TAKEN .
[2023-09-10 22:10] VITALS: BP 151/82; PULSE 98; RESP 16; TEMP 36.6; O2SAT 94
--- NOTE | 2023-09-10 22:25 | PC.NURSE ---
pt left without discharge instructions
--- NOTE | 2023-09-10 22:25 | PC.NURSE ---
went to d/c pt, pt had left already
== END 2023-09-10 22:25 | disposition home or self-care (01) ==
PROVIDERS: Nurse Practitioner Family; Emergency Provider Emergency Medicine
DX: J20.8 Acute bronchitis due to other specified organisms (principal); R06.02 Shortness of breath; J45.909 Unspecified asthma, uncomplicated; Z86.711 Personal history of pulmonary embolism; Z79.01 Long term (current) use of anticoagulants; Z11.52 Encounter for screening for COVID-19; Z20.822 Contact with and (suspected) exposure to COVID-19
CPT/HCPCS: 0241U; 36415; 71046; 80048; 80076; 83605; 83735; 84484; 85025; 87040; 93005; 94640; 96374; 96375; 99284; 99285; J2919; J3475

== ENCOUNTER → 2023-09-10 19:20 | Outpatient (BNV) | payer MEDICARE, MEDICAID, SELFPAY | PROVIDERS: Emergency Provider Emergency Medicine; PCP Registered Nurse; Visit Provider Internal Medicine | DX: R06.02 Shortness of breath (principal) | CPT/HCPCS: 93010 ==

== ENCOUNTER 2023-09-15 11:20 | Outpatient (AMB) | payer MEDICARE, MEDICAID, SELFPAY ==
[2023-09-15 11:25] VITALS: BP 140/73; PULSE 108; O2SAT 92; BMI 24.5
--- NOTE | 2023-09-15 11:25 | A.OFFVIS_ITS ---
Vital Signs 09/15/23 11:25 Height 5 ft Weight 125 lb 6 oz BMI 24.5 BP 140/73 H Blood Pressure Location Rt brachial Position Sitting Pulse 108 H Pulse Source Pulse Oximeter Pulse Oximetry (%) 92 Oxygen Delivery Method Room Air Intake Visit Reasons: ITDD REFILL/Pill Count Intake Note: Patient comes in today for a pill count to hydromorphone, patient should have 18 tablets and presents with 34 tablets which she last took today 09/15/23 at 6:30am. Pain today 7/10. 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 Accompanied by: Self / Same As Patient Allergies ciprofloxacin [Cipro] Allergy (Unknown, Verified 09/15/23 11:33) Hives levofloxacin [Levaquin] Allergy (Unknown, Verified 09/15/23 11:33) Hives metoclopramide [Reglan] Allergy (Unknown, Verified 09/15/23 11:33) Hives ondansetron [Zofran] Allergy (Unknown, Verified 09/15/23 11:33) Itching penicillin V Allergy (Unknown, Verified 09/15/23 11:33) Hives prochlorperazine [From Compazine] Allergy (Unknown, Verified 09/15/23 11:33) Shortness of Breath Sulfa (Sulfonamide Antibiotics) Allergy (Unknown, Verified 09/15/23 11:33) Hives thalidomide [From Thalomid] Allergy (Unknown, Verified 09/15/23 11:33) Rash haloperidol [From Haldol] Allergy (Verified 09/15/23 11:33) Itching HPI Comments Details: [place] in the office today for the follow-up and pill count. She reports today pain 7/10, mostly on the account of the headache she has almost 3-4 days out of the week. She still claims that the headache is positional. I would have to presume that this is a post dural puncture headache. I explained to her that no more blood patches I will be doing to her. I discussed the case with our neurosurgeon and he recommended diagnostic CT myelography to see extravasation of the contrast at the level of the intrathecal catheter entering the spinal canal L1-L2. Pill count today she supposed to have 18 in her possession. She presented with 34 pills. Therefore her pill count is correct. She was given UDS last time and her UDS was positive for Ambien/zolpidem. She reports no Ambien was taken. She is frequent Flyer in the emergency rooms due to multiple ailments including abdominal pain, viral infection, bronchial exacerbation and infections. She might have been given Ambien in 1 of her visits there. Nevertheless I explained to her not to take any medications which are not prescribed to her because she has facing a risk of being suspended with our opioid program if she continues this practice. I told her that if Ambien helps her to sleep I will be glad to prescribe the medication for her. She answered no to that. She reports good results of the intrathecal bupivacaine I DDD. After the administration of the bolus dose spread out in time over the 40 minutes she reported no longer dizziness and lightheadedness. On the reading of the pump today she has 9.0 mL present in her pump. It tells me that she is not using as much of the medication as she could. She might forget to apply the bolus and then her pain remains untreated. She also has excess of the h ydromorphone pills. Prior: Brooklyn is 41 years old female who is suffering from multiple medical conditions including Bencet disease, Crohn's disease, she is immunocompromised.? Her pain involves chronic abdominal pain in lower back pain.? She also has a chronic pelvic pain.? She was under might exacerbation on chronic oral opioid therapy for 3 years.? She was approved by psychological evaluation in the past for the neuromodulation.. COUNTS INCLUDE 234 BEDS AT THE [facility] Medical History Pulmonary emboli Crohn's disease Chronic, continuous use of opioids Immunosuppression Absence seizure disorder DVT (deep venous thrombosis) Pyloric stenosis Asthma Common variable immunodeficiency Spondylolisthesis, lumbar region Spondylosis of lumbar region without myelopathy or radiculopathy Abdominal pain, chronic, generalized Gastroparesis Spontaneous pneumothorax Chronic pain syndrome Cervicalgia Low back pain Behcet's disease Surgical History History of hernia surgery Family History Father Hairy cell leukemia Social History Household Members: Children Household Members Other:: son Housing: Condominium Do you presently have visiting nurse or other home services: No Unable to assess alcohol history related to: Unknown Alcohol intake: never Patient Tobacco Use Status: Never used Tobacco Second Hand Smoke Exposure: No Advance Directives Date on File: 04/22/23 service: No Current occupational status: unemployed Review of Systems Const All systems reviewed & are unremarkable except as noted in HPI and below Physical Exam Vital Signs: Last Vital Signs Pulse 108 H 09/15/23 11:25 BP 140/73 H 09/15/23 11:25 Pulse Ox 92 09/15/23 11:25 Oxygen Delivery Method Room Air 09/15/23 11:25 BMI result Body Mass Index 24.5 Const General: cooperative, no acute distress and alert Orientation/consciousness: patient oriented x3 HEENT Head: Yes normocephalic and Yes atraumatic Ears: hearing grossly normal bilaterally Eyes General: appearance normal, both eyes and all related structures Alignment and Position: alignment normal and position normal Periorbital: periorbital findings normal Eyelids: Yes eyelids normal Pupils: Equal, round and reactive pupils present, pupils equal and not dilated EOM: EOMs intact bilaterally Direct Ophthalmoscopy: no photophobia Neck Neck: Yes normal visual inspection and Yes no JVD Resp Effort & Inspection: normal respiratory effort, able to speak in complete sentences and no audible wheezes Cardio Jugular venous distension: no JVD GI Inspection: Yes incision and Yes scar Back/Spine/Pelvis Cervical Spine: normal cervical lordosis Thoracic/Lumbar Spine: thoracic and lumbar spine normal to inspection Neuro General: patient oriented x3, gait normal and moves all extremities Cranial nerves: Yes Equal, round and reactive pupils present Assessment & Plan Assessment & Plan (1) Cervicalgia: Code(s): M54.2 - Cervicalgia Category: Medical Plan: (2) Behcet's disease: Code(s): M35.2 - Behcet's disease Category: Medical Plan: (3) Crohn's disease: Code(s): K50.90 - Crohn's disease, unspecified, without complications Category: Medical Qualifiers: Digestive disease complication type: other complication Gastrointestinal tract location: unspecified location Qualified Code(s): K50.918 - Crohn's disease, unspecified, with other complication (4) Low back pain: Code(s): M54.5 - Low back pain Category: Medical (5) Chronic pain syndrome: Code(s): G89.4 - Chronic pain syndrome Category: Medical (6) Chronic, continuous use of opioids: Code(s): F11.90 - Opioid use, unspecified, uncomplicated Category: Medical (7) Chronic abdominal pain: Code(s): R10.9 - Unspecified abdominal pain; G89.29 - Other chronic pain Category: Medical Plan: ? Intrathecal pump refill. The patient came today in the office for the change of the medication in the pain pump. The name and date of were verified and informed consent was obtained for the procedure. The pump was interrogated and the residual amount of fluid was found to be 9.0 mL. SHE WAS POSITIONED prone on the bed AND THE AREA OF THE INTRATHECAL PUMP WAS PREPPED WITH CHLORAPREP. The fenestrated drape was sterilely applied over the area of the pump. Sterile gloves were worn and of the aspiration system was assembled containing 2 in 22 gauge noncoring needle, the needle was connected to extension tubing which was connected to the 20 cc sterile syringe. The pain pump was palpated under the skin in the patient's left buttock area. The needle was i nserted through the skin and the central plug of the pain pump and fluid was aspirated. The clear fluid was going into the syringe the total amount of the fluid was 9.0 mL .. After that a new batch? of medication was obtained which was containing bupivacaine in the new concentration of 28 milligrams/mL.. The admixture was made in 20 cc syringe prepared by [facility] compounding pharmacy. The syringe was connected to the bacterial filter, and then connected to the extension tubing. After that the medication in the syringe was slowly instilled into the pump with aspirations at 15 and 5 cc joiner.? The pump was reprogrammed continuous dose of 1.4 mg a day as well as for possible administrations per day of bupivacaine 1.9 mg every 4 hours 4 times a day.. (8) Postdural puncture headache: Code(s): G97.1 - Other reaction to spinal and lumbar puncture Category: Medical (9) Crohn's disease: Code(s): K50.90 - Crohn's disease, unspecified, without complications Category: Medical (10) Immunosuppression: Code(s): D84.9 - Immunodeficiency, unspecified Category: Medical (11) Spondylolisthesis, lumbar region: Code(s): M43.16 - Spondylolisthesis, lumbar region Category: Medical Plan: (12) Abdominal pain: Code(s): R10.9 - Unspecified abdominal pain Category: Medical Qualifiers: Abdominal location: lower abdomen, unspecified Qualified Code(s): R10.30 - Lower abdominal pain, unspecified Plan: Plan The pump refill is as above. Hydromorphone prescription is as below. As soon as patient is approved for CT myelography I will plan to schedule this procedure. Medications: Refilled hydromorphone Partial fill per patient's request only 4 mg PO BID 30 days PRN 60 tabs 0RF severe pain (scale score 7-10) F11.90 - Opioid use, unspecified, uncomplicated, G89.29 - Other chronic pain, G89.4 - Chronic pain syndrome, R10.9 - Unspecified abdominal pain Coding Level of Care Code Est Pt Level 3 (18637) Procedure Only Diagnoses Cervicalgia M54.2 Behcet's disease M35.2 Crohn's disease K50.918 Digestive disease complication type: other complication Gastrointestinal tract location: unspecified location Low back pain M54.5 Chronic pain syndrome G89.4 Chronic, continuous use of opioids F11.90 Chronic abdominal pain R10.9; G89.29 Postdural puncture headache G97.1 Immunosuppression D84.9 Spondylolisthesis, lumbar region M43.16 Lower abdominal pain R10.30 Abdominal location: lower abdomen, unspecified
== END 2023-09-15 12:06 | disposition home or self-care (01) ==
PROVIDERS: PCP Nurse Practitioner Family; Visit Provider Anesthesiology
DX: Z45.1 Encounter for adjustment and management of infusion pump (principal)
CPT/HCPCS: 62370; 99213

== ENCOUNTER → 2023-09-15 11:20 | Outpatient (BNVA) | payer MEDICARE, MEDICAID, SELFPAY | PROVIDERS: PCP Nurse Practitioner Family; Visit Provider Anesthesiology | DX: Z45.89 Encounter for adjustment and management of other implanted devices (principal); M54.2 Cervicalgia; M35.2 Behcet's disease; M54.50 Low back pain, unspecified; M43.16 Spondylolisthesis, lumbar region; R10.30 Lower abdominal pain, unspecified; K50.918 Crohn's disease, unspecified, with other complication; F11.20 Opioid dependence, uncomplicated; R10.9 Unspecified abdominal pain; G97.1 Other reaction to spinal and lumbar puncture; D84.9 Immunodeficiency, unspecified; G89.29 Other chronic pain | CPT/HCPCS: 62370; 99212 ==

== ENCOUNTER 2023-10-13 13:07 | Outpatient (AMB) | payer MEDICARE, MEDICAID, SELFPAY ==
--- NOTE | 2023-10-13 13:09 | MHC.OFFVIS ---
Vital Signs 10/13/23 13:16 Height 5 ft Weight 126 lb 2 oz BMI 24.6 BP 114/64 Blood Pressure Location Lt brachial Position Sitting Respiration 16 Pulse 69 Pulse Source Pulse Oximeter Pulse Oximetry (%) 99 Oxygen Delivery Method Room Air Intake Visit Reasons: PILL COUNT Intake Note: Patient comes in for pill count. Reports pain 6/10. Allergies ciprofloxacin [Cipro] Allergy (Unknown, Verified 10/13/23 13:16) Hives levofloxacin [Levaquin] Allergy (Unknown, Verified 10/13/23 13:16) Hives metoclopramide [Reglan] Allergy (Unknown, Verified 10/13/23 13:16) Hives ondansetron [Zofran] Allergy (Unknown, Verified 10/13/23 13:16) Itching penicillin V Allergy (Unknown, Verified 10/13/23 13:16) Hives prochlorperazine [From Compazine] Allergy (Unknown, Verified 10/13/23 13:16) Shortness of Breath Sulfa (Sulfonamide Antibiotics) Allergy (Unknown, Verified 10/13/23 13:16) Hives thalidomide [From Thalomid] Allergy (Unknown, Verified 10/13/23 13:16) Rash haloperidol [From Haldol] Allergy (Verified 10/13/23 13:16) Itching HPI Comments Details: [place] in the office today for the follow-up and pill count. She reports today pain 6/10 mostly on the account of the headache she has almost 3-4 days out of the week. She still claims that the headache is positional. I would have to presume that this is a post dural puncture headache. I explained to her that no more blood patches I will be doing to her. Her CT myelogram is scheduled for 11/15/2023, her next pump refill is scheduled for 11/10/2023. Unfortunately I will not be able to coincide this to events. Pill count today she supposed to have 36 in her possession. She presented with 39 pills. Therefore her pill count is correct. She reports good results of the intrathecal bupivacaine I DDD. After the administration of the bolus dose spread out in time over the 40 minutes she reported no longer dizziness and lightheadedness. On the reading of the pump today she has 9.0 mL present in her pump. It tells me that she is not using as much of the medication as she could. She might forget to apply the bolus and then her pain remains untreated. She also has excess of the hydromorphone pills. Prior: Brooklyn is 41 years old female who is suffering from multiple medical conditions including Bencet disease, Crohn's disease, she is immunocompromised.? Her pain involves chronic abdominal pain in lower back pain.? She also has a chronic pelvic pain.? She was under might exacerbation on chronic oral opioid therapy for 3 years.? She was approved by psychological evaluation in the past for the neuromodulation.. [facility] Medical History Pulmonary emboli Crohn's disease Chronic, continuous use of opioids Immunosuppression Absence seizure disorder DVT (deep venous thrombosis) Pyloric stenosis Asthma Common variable immunodeficiency Spondylolisthesis, lumbar region Spondylosis of lumbar region without myelopathy or radiculopathy Abdominal pain, chronic, generalized Gastroparesis Spontaneous pneumothorax Chronic pain syndrome Cervicalgia Low back pain Behcet's disease Surgical History History of hernia surgery Family History Father Hairy cell leukemia Social History Household Members: Children Household Members Other:: son Housing: Condominium Do you presently have visiting nurse or other home services: No Unable to assess alcohol history related to: Unknown Alcohol intake: never Patient Tobacco Use Status: Never used Tobacco Second Hand Smoke Exposure: No Advance Directives Date on File: 04/22/23 service: No Current occupational status: unemployed Review of Systems Const All systems reviewed & are unremarkable except as noted in HPI and below Physical Exam Vital Signs: Last Vital Signs Pulse 69 10/13/23 13:16 Resp 16 10/13/23 13:16 BP 114/64 10/13/23 13:16 Pulse Ox 99 10/13/23 13:16 Oxygen Delivery Method Room Air 10/13/23 13:16 BMI result Body Mass Index 24.6 Const General: cooperative, no acute distress and alert Orientation/consciousness: patient oriented x3 HEENT Head: Yes normocephalic and Yes atraumatic Ears: hearing grossly normal bilaterally Eyes General: appearance normal, both eyes and all related structures Alignment and Position: alignment normal and position normal Periorbital: periorbital findings normal Eyelids: Yes eyelids normal Pupils: Equal, round and reactive pupils present, pupils equal and not dilated EOM: EOMs intact bilaterally Direct Ophthalmoscopy: no photophobia Neck Neck: Yes normal visual inspection and Yes no JVD Resp Effort & Inspection: normal respiratory effort, able to speak in complete sentences and no audible wheezes Cardio Jugular venous distension: no JVD GI Inspection: Yes incision and Yes scar Back/Spine/Pelvis Cervical Spine: normal cervical lordosis Thoracic/Lumbar Spine: thoracic and lumbar spine normal to inspection Neuro General: patient oriented x3, gait normal and moves all extremities Cranial nerves: Yes Equal, round and reactive pupils present Assessment & Plan Assessment & Plan (1) Cervicalgia: Code(s): M54.2 - Cervicalgia Category: Medical Plan: (2) Behcet's disease: Code(s): M35.2 - Behcet's disease Category: Medical Plan: (3) Crohn's disease: Code(s): K50.90 - Crohn's disease, unspecified, without complications Category: Medical Qualifiers: Digestive disease complication type: other complication Gastrointestinal tract location: unspecified location Qualified Code(s): K50.918 - Crohn's disease, unspecified, with other complication (4) Low back pain: Code(s): M54.5 - Low back pain Category: Medical (5) Chronic pain syndrome: Code(s): G89.4 - Chronic pain syndrome Category: Medical (6) Chronic, continuous use of opioids: Code(s): F11.90 - Opioid use, unspecified, uncomplicated Category: Medical (7) Chronic abdominal pain: Code(s): R10.9 - Unspecified abdominal pain; G89.29 - Other chronic pain Category: Medical (8) Postdural puncture headache: Code(s): G97.1 - Other reaction to spinal and lumbar puncture Category: Medical (9) Crohn's disease: Code(s): K50.90 - Crohn's disease, unspecified, without complications Category: Medical (10) Immunosuppression: Code(s): D84.9 - Immunodeficiency, unspecified Category: Medical (11) Spondylolisthesis, lumbar region: Code(s): M43.16 - Spondylolisthesis, lumbar region Category: Medical Plan: (12) Abdominal pain: Code(s): R10.9 - Unspecified abdominal pain Category: Medical Qualifiers: Abdominal location: lower abdomen, unspecified Qualified Code(s): R10.30 - Lower abdominal pain, unspecified Plan: Plan Pain is acceptable at 6/10. Pill count is correct today, the patient reports no side effects or complications of the hydromorphone opioid medications. Next appointment for the pump for the pump refill is 11/10/2023, appointment for CT myelogram 11/15/2023. Unfortunately I will not be able to coincide this 2. events you to preset radiology schedule. Medications: Refilled hydromorphone Partial fill per patient's request only 4 mg PO BID PRN 60 tabs 0RF severe pain (scale score 7-10) 30 days F11.90 - Opioid use, unspecified, uncomplicated, G89.29 - Other chronic pain, G89.4 - Chronic pain syndrome, R10.9 - Unspecified abdominal pain Coding Level of Care Code Est Pt Level 3 (48594) Diagnoses Cervicalgia M54.2 Behcet's disease M35.2 Crohn's disease K50.918 Digestive disease complication type: other complication Gastrointestinal tract location: unspecified location Low back pain M54.5 Chronic pain syndrome G89.4 Chronic, continuous use of opioids F11.90 Chronic abdominal pain R10.9; G89.29 Postdural puncture headache G97.1 Immunosuppression D84.9 Spondylolisthesis, lumbar region M43.16 Lower abdominal pain R10.30 Abdominal location: lower abdomen, unspecified
[2023-10-13 13:16] VITALS: BP 114/64; PULSE 69; RESP 16; O2SAT 99; BMI 24.6
== END 2023-10-13 13:24 | disposition home or self-care (01) ==
PROVIDERS: PCP Nurse Practitioner Family; Visit Provider Anesthesiology
DX: G89.4 Chronic pain syndrome (principal); M54.50 Low back pain, unspecified; M54.2 Cervicalgia; Z79.891 Long term (current) use of opiate analgesic; R10.9 Unspecified abdominal pain; M35.2 Behcet's disease; K50.918 Crohn's disease, unspecified, with other complication; G89.29 Other chronic pain; G97.1 Other reaction to spinal and lumbar puncture; D84.9 Immunodeficiency, unspecified; M43.16 Spondylolisthesis, lumbar region; R10.30 Lower abdominal pain, unspecified
CPT/HCPCS: 99213

== ENCOUNTER → 2023-10-13 13:07 | Outpatient (BNVA) | payer MEDICARE, MEDICAID, SELFPAY | PROVIDERS: PCP Nurse Practitioner Family; Visit Provider Anesthesiology | DX: M54.2 Cervicalgia (principal); M54.50 Low back pain, unspecified; M43.16 Spondylolisthesis, lumbar region; G89.4 Chronic pain syndrome; G97.1 Other reaction to spinal and lumbar puncture; M35.2 Behcet's disease; K50.918 Crohn's disease, unspecified, with other complication; D84.9 Immunodeficiency, unspecified; R10.30 Lower abdominal pain, unspecified; Z79.891 Long term (current) use of opiate analgesic | CPT/HCPCS: 99212 ==

== ENCOUNTER 2023-11-10 13:02 | Outpatient (AMB) | payer MEDICARE, MEDICAID, SELFPAY ==
--- NOTE | 2023-11-10 13:12 | A.OFFVIS_ITS ---
Vital Signs 11/10/23 14:27 Height 5 ft Weight 127 lb BMI 24.8 BP 102/60 Blood Pressure Location Lt brachial Position Sitting Respiration 16 Pulse 83 Pulse Source Pulse Oximeter Pulse Oximetry (%) 96 Oxygen Delivery Method Room Air Intake Visit Reasons: ITDD REFILL/ pill count Intake Note: Patient comes in for intrathecal medication refill and pill count. Reports pain 7/10. Allergies ciprofloxacin [Cipro] Allergy (Unknown, Verified 11/10/23 14:29) Hives levofloxacin [Levaquin] Allergy (Unknown, Verified 11/10/23 14:29) Hives metoclopramide [Reglan] Allergy (Unknown, Verified 11/10/23 14:29) Hives ondansetron [Zofran] Allergy (Unknown, Verified 11/10/23 14:29) Itching penicillin V Allergy (Unknown, Verified 11/10/23 14:29) Hives prochlorperazine [From Compazine] Allergy (Unknown, Verified 11/10/23 14:29) Shortness of Breath Sulfa (Sulfonamide Antibiotics) Allergy (Unknown, Verified 11/10/23 14:29) Hives thalidomide [From Thalomid] Allergy (Unknown, Verified 11/10/23 14:29) Rash haloperidol [From Haldol] Allergy (Verified 11/10/23 14:29) Itching HPI Comments Details: Brooklyn in the office today for the follow-up and pill count. She reports today pain 6/10 mostly on the account of the headache she has almost 3-4 days out of the week. She still claims that the headache is positional. Her CT myelogram is scheduled for 11/15/2023, today is here with a pill count she supposed to have 40 pills in her possession she presented with 43 pills in her possession. This demonstrates responsible attitude for opioid medications. Prior: Brooklyn is 41 years old female who is suffering from multiple medical conditions including Bencet disease, Crohn's disease, she is immunocompromised.? Her pain involves chronic abdominal pain in lower back pain.? She also has a chronic pelvic pain.? She was under might exacerbation on chronic oral opioid therapy for 3 years.? She was approved by psychological evaluation in the past for the neuromodulation.. [facility] Medical History Pulmonary emboli Crohn's disease Chronic, continuous use of opioids Immunosuppression Absence seizure disorder DVT (deep venous thrombosis) Pyloric stenosis Asthma Common variable immunodeficiency Spondylolisthesis, lumbar region Spondylosis of lumbar region without myelopathy or radiculopathy Abdominal pain, chronic, generalized Gastroparesis Spontaneous pneumothorax Chronic pain syndrome Cervicalgia Low back pain Behcet's disease Surgical History History of hernia surgery Family History Father Hairy cell leukemia Social History Household Members: Children Household Members Other:: son Housing: Condominium Do you presently have visiting nurse or other home services: No Unable to assess alcohol history related to: Unknown Alcohol intake: never Patient Tobacco Use Status: Never used Tobacco Second Hand Smoke Exposure: No Advance Directives Date on File: 04/22/23 service: No Current occupational status: unemployed Review of Systems Const All systems reviewed & are unremarkable except as noted in HPI and below Physical Exam Vital Signs: Last Vital Signs Pulse 83 11/10/23 14:27 Resp 16 11/10/23 14:27 BP 102/60 11/10/23 14:27 Pulse Ox 96 11/10/23 14:27 Oxygen Delivery Method Room Air 11/10/23 14:27 BMI result Body Mass Index 24.8 Const General: cooperative, no acute distress and alert Orientation/consciousness: patient oriented x3 HEENT Head: Yes normocephalic and Yes atraumatic Ears: hearing grossly normal bilaterally Eyes General: appearance normal, both eyes and all related structures Alignment and Position: alignment normal and position normal Periorbital: periorbital findings normal Eyelids: Yes eyelids normal Pupils: Equal, round and reactive pupils present, pupils equal and not dilated EOM: EOMs intact bilaterally Direct Ophthalmoscopy: no photophobia Neck Neck: Yes normal visual inspection and Yes no JVD Resp Effort & Inspection: normal respiratory effort, able to speak in complete sentences and no audible wheezes Cardio Jugular venous distension: no JVD GI Inspection: Yes incision and Yes scar Back/Spine/Pelvis Cervical Spine: normal cervical lordosis Thoracic/Lumbar Spine: thoracic and lumbar spine normal to inspection Neuro General: patient oriented x3, gait normal and moves all extremities Cranial nerves: Yes Equal, round and reactive pupils present Assessment & Plan Assessment & Plan (1) Cervicalgia: Code(s): M54.2 - Cervicalgia Category: Medical Plan: (2) Behcet's disease: Code(s): M35.2 - Behcet's disease Category: Medical Plan: (3) Low back pain: Code(s): M54.5 - Low back pain Category: Medical (4) Chronic abdominal pain: Code(s): R10.9 - Unspecified abdominal pain; G89.29 - Other chronic pain Category: Medical Plan: ? Intrathecal pump refill. The patient came today in the office for the change of the medication in the pain pump. The name and date of were verified and informed consent was obtained for the procedure. The pump was interrogated and the residual amount of fluid was found to be 7.7 mL. SHE WAS POSITIONED prone on the bed AND THE AREA OF THE INTRATHECAL PUMP WAS PREPPED WITH CHLORAPREP. The fenestrated drape was sterilely applied over the area of the pump. Sterile gloves were worn and of the aspiration system was assembled containing 2 in 22 gauge noncoring needle, the needle was connected to extension tubing which was connected to the 20 cc sterile syringe. The pain pump was palpated under the skin in the patient's left buttock area. The needle was inserted through the skin and the central plug of the pain pump and fluid was aspirated. The clear fluid was going into the syringe the total amount of the fluid was 7.0 mL .. After that a new batch? of medication was obtained which was containing bupivacaine in the new concentration of 28 milligrams/mL.. The admixture was made in 20 cc syringe prepared by [facility] compounding pharmacy. The syringe was connected to the bacterial filter, and then connected to the extension tubing. After that the medication in the syringe was slowly instilled into the pump with aspirations at 15 and 5 cc joiner.? The pump was reprogrammed continuous dose of 1.4 mg a day as well as for possible administrations per day of bupivacaine 1.9 mg every 4 hours 4 times a day.. (5) Postdural puncture headache: Code(s): G97.1 - Other reaction to spinal and lumbar puncture Category: Medical Plan Pain is acceptable at 10/30. CT myelogram is scheduled for 11/15/2023 Pill count is correct today, the patient reports no side effects or complications of the hydromorphone opioid medications. Next appointment for the pump refill will be scheduled on 01/09/2024. Next pill count will be in 1 month. I will prescribe her new prescription of hydromorphone for 12/01/2023. Medications: Refilled hydromorphone Partial fill per patient's request only 4 mg PO BID PRN 60 tabs 0RF severe pain (scale score 7-10) 30 days F11.90 - Opioid use, unspecified, uncomplicated, G89.29 - Other chronic pain, G89.4 - Chronic pain syndrome, R10.9 - Unspecified abdominal pain Coding Level of Care Code Est Pt Level 3 (81066) Procedure Only Diagnoses Cervicalgia M54.2 Behcet's disease M35.2 Low back pain M54.5 Chronic abdominal pain R10.9; G89.29 Postdural puncture headache G97.1
[2023-11-10 14:27] VITALS: BP 102/60; PULSE 83; RESP 16; O2SAT 96; BMI 24.8
== END 2023-11-10 13:53 | disposition home or self-care (01) ==
PROVIDERS: PCP Nurse Practitioner Family; Visit Provider Anesthesiology
DX: M54.2 Cervicalgia (principal); M35.2 Behcet's disease; M54.50 Low back pain, unspecified; R10.9 Unspecified abdominal pain; Z45.1 Encounter for adjustment and management of infusion pump; G89.29 Other chronic pain; G97.1 Other reaction to spinal and lumbar puncture
CPT/HCPCS: 62370; 99213

== ENCOUNTER → 2023-11-10 13:02 | Outpatient (BNVA) | payer MEDICARE, MEDICAID, SELFPAY | PROVIDERS: PCP Nurse Practitioner Family; Visit Provider Anesthesiology | DX: Z51.81 Encounter for therapeutic drug level monitoring (principal); Z45.89 Encounter for adjustment and management of other implanted devices; M54.2 Cervicalgia; M35.2 Behcet's disease; M54.50 Low back pain, unspecified; R10.9 Unspecified abdominal pain; G97.1 Other reaction to spinal and lumbar puncture; G89.29 Other chronic pain; F11.20 Opioid dependence, uncomplicated | CPT/HCPCS: 62370; 99212 ==

== ENCOUNTER 2023-11-15 06:08 | Day surgery (SDC) | payer MEDICARE, MEDICAID, SELFPAY ==
[2023-11-15 07:19] LABS: UPreg QC Valid YES; Urine Pregnancy NEGATIVE (NEGATIVE)
[2023-11-15 07:25] VITALS: BP 142/57; PULSE 79; RESP 18; TEMP 36.7; O2SAT 100; BMI 26.8
[2023-11-15 08:05] VITALS: BP 126/73; PULSE 82; RESP 20; TEMP 36.6; O2SAT 98
== END 2023-11-15 08:15 | disposition home or self-care (01) ==
PROVIDERS: Physician Assistant Surgical; Radiology Vascular & Interventional Radiology; Visit Provider Anesthesiology
DX: G97.1 Other reaction to spinal and lumbar puncture (principal); Z53.8 Procedure and treatment not carried out for other reasons; G89.29 Other chronic pain; M35.2 Behcet's disease; M47.816 Spondylosis without myelopathy or radiculopathy, lumbar region; M54.50 Low back pain, unspecified; R10.9 Unspecified abdominal pain; Z79.899 Other long term (current) drug therapy; Z56.0 Unemployment, unspecified
CPT/HCPCS: 62304; 81025; Q9967

== ENCOUNTER 2023-11-15 11:12 | Outpatient (AMB) | payer MEDICARE, MEDICAID, SELFPAY ==
--- NOTE | 2023-11-15 08:59 | MHC.OFFVIS ---
Intake Visit Reasons: CT Scan ITDD Examination Allergies ciprofloxacin [Cipro] Allergy (Unknown, Verified 11/15/23 07:28) Hives levofloxacin [Levaquin] Allergy (Unknown, Verified 11/15/23 07:28) Hives metoclopramide [Reglan] Allergy (Unknown, Verified 11/15/23 07:28) Hives ondansetron [Zofran] Allergy (Unknown, Verified 11/15/23 07:28) Itching penicillin V Allergy (Unknown, Verified 11/15/23 07:28) Hives prochlorperazine [From Compazine] Allergy (Unknown, Verified 11/15/23 07:28) Shortness of Breath Sulfa (Sulfonamide Antibiotics) Allergy (Unknown, Verified 11/15/23 07:28) Hives thalidomide [From Thalomid] Allergy (Unknown, Verified 11/15/23 07:28) Rash haloperidol [From Haldol] Allergy (Verified 11/15/23 07:28) Itching PFSH Medical History Pulmonary emboli Crohn's disease Chronic, continuous use of opioids Immunosuppression Absence seizure disorder DVT (deep venous thrombosis) Pyloric stenosis Asthma Common variable immunodeficiency Spondylolisthesis, lumbar region Spondylosis of lumbar region without myelopathy or radiculopathy Abdominal pain, chronic, generalized Gastroparesis Spontaneous pneumothorax Chronic pain syndrome Cervicalgia Low back pain Behcet's disease Surgical History History of hernia surgery Family History Father Hairy cell leukemia Social History Household Members: Children Household Members Other:: son Housing: Condominium Do you presently have visiting nurse or other home services: No Unable to assess alcohol history related to: Unknown Alcohol intake: never Patient Tobacco Use Status: Never used Tobacco Second Hand Smoke Exposure: No Advance Directives Date on File: 04/22/23 service: No Current occupational status: unemployed Assessment & Plan Assessment & Plan (1) Post-dural puncture headache: Code(s): G97.1 - Other reaction to spinal and lumbar puncture Category: Medical (2) Constipation by delayed colonic transit: Code(s): K59.01 - Slow transit constipation Category: Medical (3) Chronic abdominal pain: Code(s): R10.9 - Unspecified abdominal pain; G89.29 - Other chronic pain Category: Medical (4) Behcet's disease: Code(s): M35.2 - Behcet's disease Category: Medical (5) Low back pain: Code(s): M54.5 - Low back pain Category: Medical Plan Attempt at CT myelography via intrathecal pain pump. The patient came to the radiography compound today to receive CT myelography via intrathecal pain pump. She was positioned prone on the operating table, C-arm was brought over the operating field and sq image of intrathecal pain pump was demonstrated on the screen against the left upper buttock of the patient. Thorough preparation with ChloraPrep was done over the skin covering the intrathecal pain pump and adjacent areas, fenestrated drape was applied. The system was assembled comprising of 3 cc syringe, plastic extension tubing and 24 gauge noncoring 1/2 inch needle. 24 gauge noncoring 1-1/2 inch needle was inserted through the skin to were the side port of the pump. When silicone Cork penetration was felt the extension tubing was clamped and aspiration was applied. Unfortunately there were no CSF coming from the intrathecal catheter observed. The needle was removed sterile Band-Aid was applied. The CT scan myelogram was canceled. Coding Level of Care Code Procedure Only Diagnoses Post-dural puncture headache G97.1 Constipation by delayed colonic transit K59.01 Chronic abdominal pain R10.9; G89.29 Behcet's disease M35.2 Low back pain M54.5
== END 2023-11-15 11:13 | disposition home or self-care (01) ==
LOC: HO.PMCPRC 11:12
PROVIDERS: PCP Nurse Practitioner Family; Visit Provider Anesthesiology
DX: G97.1 Other reaction to spinal and lumbar puncture (principal); K59.01 Slow transit constipation; R10.9 Unspecified abdominal pain; G89.29 Other chronic pain; M35.2 Behcet's disease; M54.50 Low back pain, unspecified
CPT/HCPCS: 62304

== ENCOUNTER 2024-01-06 11:33 | Outpatient (AMB) | payer MEDICARE, MEDICAID, SELFPAY ==
--- NOTE | 2024-01-06 11:35 | MHC.OFFVIS ---
Vital Signs 01/06/24 11:36 Height 5 ft Weight 137 lb BMI 26.8 BP 110/55 L Blood Pressure Location Lt brachial Position Sitting Respiration 14 Pulse 82 Pulse Source Pulse Oximeter Pulse Oximetry (%) 99 Oxygen Delivery Method Room Air Intake Visit Reasons: ITDD Refill/pill count Allergies ciprofloxacin [Cipro] Allergy (Unknown, Verified 01/06/24 11:38) Hives levofloxacin [Levaquin] Allergy (Unknown, Verified 01/06/24 11:38) Hives metoclopramide [Reglan] Allergy (Unknown, Verified 01/06/24 11:38) Hives ondansetron [Zofran] Allergy (Unknown, Verified 01/06/24 11:38) Itching penicillin V Allergy (Unknown, Verified 01/06/24 11:38) Hives prochlorperazine [From Compazine] Allergy (Unknown, Verified 01/06/24 11:38) Shortness of Breath Sulfa (Sulfonamide Antibiotics) Allergy (Unknown, Verified 01/06/24 11:38) Hives thalidomide [From Thalomid] Allergy (Unknown, Verified 01/06/24 11:38) Rash haloperidol [From Haldol] Allergy (Verified 01/06/24 11:38) Itching Medication List - Last Reconciled 01/06/24 by Shirley Shahid LPN albuterol sulfate 90 mcg/actuation 2 puffs inhalation Q4H PRN albuterol sulfate 90 mcg/actuation 2 puffs inhalation Q4-6H PRN apixaban (Eliquis) 5 mg PO BID dkvokjcagf-pflwkovskzgcz-abhh 50-300-40 mg (Fioricet) 1 cap PO TID PRN 10 days diphenhydramine HCl 25 mg IV QID PRN fluticasone furoate-vilanterol 200-25 mcg/dose (Breo Ellipta) 1 inh inhalation Q24H hydromorphone 4 mg (2 x 2 mg) PO BID PRN 30 days hydromorphone 4 mg PO BID PRN 30 days levetiracetam (Keppra) 700 mg PO BID ondansetron HCl (PF) 4 mg IV QID PRN promethazine 25 mg PO QID PRN umeclidinium 62.5 mcg/actuation (Incruse Ellipta) 1 inh inhalation DAILY HPI HPI ITDD Refill/pill count: Details: 43-year-old female who presents today to the office for a ITDD refill. Denies any recent cough, cold, infection, fever or other significant changes in medical history since last office visit. 0 pills were expected, and 0 pills were presented. She complains about nausea when she takes the PTM bolus. ? PFS Medical History Pulmonary emboli Crohn's disease Chronic, continuous use of opioids Immunosuppression Absence seizure disorder DVT (deep venous thrombosis) Pyloric stenosis Asthma Common variable immunodeficiency Spondylolisthesis, lumbar region Spondylosis of lumbar region without myelopathy or radiculopathy Abdominal pain, chronic, generalized Gastroparesis Spontaneous pneumothorax Chronic pain syndrome Cervicalgia Low back pain Behcet's disease Surgical History History of hernia surgery Family History Father Hairy cell leukemia Social History Household Members: Children Household Members Other:: son Housing: Condominium Do you presently have visiting nurse or other home services: No Unable to assess alcohol history related to: Unknown Alcohol intake: never Patient Tobacco Use Status: Never used Tobacco Second Hand Smoke Exposure: No Advance Directives Date on File: 04/22/23 service: No Current occupational status: unemployed Review of Systems Const All systems reviewed & are unremarkable except as noted in HPI and below Physical Exam Vital Signs: Last Vital Signs Pulse 82 01/06/24 11:36 Resp 14 01/06/24 11:36 BP 110/55 L 01/06/24 11:36 Pulse Ox 99 01/06/24 11:36 Oxygen Delivery Method Room Air 01/06/24 11:36 BMI result Body Mass Index 26.8 General: Appears afebrile. Alert and oriented. Mood and affect appropriate. Follows and participates in conversation appropriately. Respiratory effort is unlabored. Able to transition from sit to stand unassisted. Ambulates with bilaterally normal heel strike and toe off. Office Procedures Details: Intra-thecal Pump Refill The name and date of were verified, and informed consent was obtained for the procedure. The pump was interrogated, and the residual amount of fluid was found to be 9 mL. Patient was positioned prone on the bed and the area of the intrathecal pump was prepped with chloraprep. The fenestrated drape was sterilely applied over the area of the pump. Sterile gloves were worn and the aspiration system was assembled containing 2 22-gauge noncoring needle; the needle was connected to extension tubing which was connected to the 20-cc sterile syringe. The extension tubing was clamped. The pain pump was palpated under the skin in the patient's buttock. The needle was inserted through the skin and the central plug of the pain pump and fluid was aspirated. 9 mL of clear fluid were aspirated. After that, a new batch of medication bupivacaine 28 milligrams/mL was obtained. The admixture was premixed in a 20cc syringe by [facility] compounding pharmacy. The syringe was connected to the bacterial filter, and then connected to the extension tubing. After that, the medication in the syringe was slowly instilled into the pump with aspirations at 15 ml and 5 mL joiner. The pump was programmed and updated per the latest parameters. The details of this program are available in the pump log that was saved and uploaded to the EMR. 46382 - Refill Procedure code (CPT) selection complete Results Reviewed Results Reviewed: No imaging is available for review. Assessment & Plan Assessment & Plan (1) Chronic abdominal pain: Code(s): R10.9 - Unspecified abdominal pain; G89.29 - Other chronic pain Category: Medical (2) Low back pain: Code(s): M54.5 - Low back pain Category: Medical Plan 0 pills were expected, and 0 pills were presented. Pill count were consistent. Patient will follow up in one month for pill count and refill. Patient is status post intra-thecal pump refill. Patient tolerated procedure well and was discharged home in stable condition with discharge instructions.? All questions were answered. Given the nausea with the bolus, I reduced her bolus from 1.9 to 1.6 milligram per dose. It will continue to be four times a day. No changes were made to the continuous infusion. We will follow-up in two weeks via telephone or in clinic to assess response to therapy. A follow-up appointment was made during today's visit. Scribed for Dr. Chapa by Isidoro Darrell, regional medical director, on 01/06/2024. I, Dr. Chapa, have personally reviewed and agree with the information entered by the scribe. Coding Level of Care Code Est Pt Level 4 (88168) Diagnoses Chronic abdominal pain R10.9; G89.29 Low back pain M54.5 CPT Codes Intraethecal Drug Delivery System - CPT: 73377 - Refill ([id number])
[2024-01-06 11:36] VITALS: BP 110/55; PULSE 82; RESP 14; O2SAT 99; BMI 26.8
== END 2024-01-06 12:02 | disposition home or self-care (01) ==
PROVIDERS: PCP Internal Medicine; Visit Provider Internal Medicine
DX: R10.9 Unspecified abdominal pain (principal); G89.29 Other chronic pain; M54.50 Low back pain, unspecified; Z45.2 Encounter for adjustment and management of vascular access device
CPT/HCPCS: 62370; 99214

== ENCOUNTER → 2024-01-06 11:33 | Outpatient (BNVA) | payer MEDICARE, MEDICAID, SELFPAY | PROVIDERS: Visit Provider Internal Medicine | DX: M54.50 Low back pain, unspecified (principal); R10.9 Unspecified abdominal pain; G89.29 Other chronic pain | CPT/HCPCS: 62370; 99212 ==

== ENCOUNTER 2024-02-02 11:03 | Outpatient (AMB) | payer MEDICARE, MEDICAID, SELFPAY ==
--- NOTE | 2024-02-02 11:15 | A.OFFVIS_ITS ---
Vital Signs 02/02/24 11:21 Height 5 ft Weight 137 lb BMI 26.8 BP 122/60 Blood Pressure Location Rt brachial Position Sitting Pulse 76 Pulse Source Pulse Oximeter Pulse Oximetry (%) 99 Oxygen Delivery Method Room Air Intake Visit Reasons: Pill Count Intake Note: Brooklyn comes in today for a pill count to hydromorphone, patient should have 6 tablets and presents with 5 tablets which she last took today 02/02/24 at 8am. Pain today 10 [employer] Operator Required: No Accompanied by: Self / Same As Patient Allergies ciprofloxacin [Cipro] Allergy (Unknown, Verified 02/02/24 11:20) Hives levofloxacin [Levaquin] Allergy (Unknown, Verified 02/02/24 11:20) Hives metoclopramide [Reglan] Allergy (Unknown, Verified 02/02/24 11:20) Hives ondansetron [Zofran] Allergy (Unknown, Verified 02/02/24 11:20) Itching penicillin V Allergy (Unknown, Verified 02/02/24 11:20) Hives prochlorperazine [From Compazine] Allergy (Unknown, Verified 02/02/24 11:20) Shortness of Breath Sulfa (Sulfonamide Antibiotics) Allergy (Unknown, Verified 02/02/24 11:20) Hives thalidomide [From Thalomid] Allergy (Unknown, Verified 02/02/24 11:20) Rash haloperidol [From Haldol] Allergy (Verified 02/02/24 11:20) Itching HPI Comments Details: Patient presents today for a pill count. Patient is supposed to have #6 pills, in her possession has #5 pills. Patient reports mild to moderate analgesia on current medication regime. She also has ITDD, last refill on 01/06/24 and upcoming refill on 03/15/24. Denies any recent cough, cold, infection, fever, constipation, nausea, sedation, dizziness, or urinary retention, any significant changes in her medical history, medications or recent hospitalizations since last visit. PRIOR Dr. Pedroza: Brooklyn in the office today for the follow-up and pill count. She reports today pain /10 mostly on the account of the headache she has almost 3-4 days out of the week. She still claims that the headache is positional. Her CT myelogram is scheduled for 11/15/2023, today is here with a pill count she supposed to have 40 pills in her possession she presented with 43 pills in her possession. This demonstrates responsible attitude for opioid medications. Prior: Brooklyn is 41 years old female who is suffering from multiple medical conditions including Bencet disease, Crohn's disease, she is immunocompromised.? Her pain involves chronic abdominal pain in lower back pain.? She also has a chronic pelvic pain.? She was under might exacerbation on chronic oral opioid therapy for 3 years.? She was approved by psychological evaluation in the past for the neuromodulation.. [facility] Medical History Pulmonary emboli Crohn's disease Chronic, continuous use of opioids Immunosuppression Absence seizure disorder DVT (deep venous thrombosis) Pyloric stenosis Asthma Common variable immunodeficiency Spondylolisthesis, lumbar region Spondylosis of lumbar region without myelopathy or radiculopathy Abdominal pain, chronic, generalized Gastroparesis Spontaneous pneumothorax Chronic pain syndrome Cervicalgia Low back pain Behcet's disease Surgical History History of hernia surgery Family History Father Hairy cell leukemia Social History Household Members: Children Household Members Other:: son Housing: Condominium Do you presently have visiting nurse or other home services: No Unable to assess alcohol history related to: Unknown Alcohol intake: never Patient Tobacco Use Status: Never used Tobacco Second Hand Smoke Exposure: No Advance Directives Date on File: 04/22/23 service: No Current occupational status: unemployed Review of Systems Const All systems reviewed & are unremarkable except as noted in HPI and below Physical Exam Vital Signs: Last Vital Signs Pulse 76 02/02/24 11:21 BP 122/60 02/02/24 11:21 Pulse Ox 99 02/02/24 11:21 Oxygen Delivery Method Room Air 02/02/24 11:21 BMI result Body Mass Index 26.8 General: Appears afebrile. Alert and oriented. Mood and affect appropriate. Follows and participates in conversation appropriately. Respiratory effort is unlabored. Able to transition from sit to stand unassisted. Ambulates with bilaterally normal heel strike and toe off. Psych Appearance: grossly normal Mental Status: mental status grossly normal Speech and movement: Normal speech and movement present and Clear speech present Affect: normal affect Attitude: cooperative Thought process: Normal thought process present Thought content: Normal thought content present, suicidality (none), no hallucinations and No Depressive thoughts present Insight: Good insight present (Psych) Judgement: Good judgement present (Psych) Results Reviewed Results Reviewed: No imaging is available for review. Assessment & Plan Assessment & Plan (1) Chronic abdominal pain: Code(s): R10.9 - Unspecified abdominal pain; G89.29 - Other chronic pain Category: Medical (2) Low back pain: Code(s): M54.5 - Low back pain Category: Medical (3) Cervicalgia: Code(s): M54.2 - Cervicalgia Category: Medical (4) Cervicalgia: Code(s): M54.2 - Cervicalgia Category: Medical (5) Opioid contract exists: Code(s): Z79.891 - penitentiary (current) use of opiate analgesic Category: Medical (6) Behcet's disease: Code(s): M35.2 - Behcet's disease Category: Medical Plan Patient has shown accountability for her medication regimen and the pill count was accurate. There is no evidence of misuse, abuse or diversion at this time. [employer] reviewed. Refill sent for hydromorphone 4 mg BID prn with advanced date of 02/04/24. Continue to monitor for any side effects. Narcan sent today too. All questions were answered and the patient is in agreement with the plan. Follow up in 4 weeks for a pill count with Dr. Pedroza or sooner if needed. Medications: New naloxone 4 mg/actuation (Narcan) spray 1 dose into ONE nostril; alternate nostrils w each dose until help arrives 4 mg intranasal Q2M PRN 2 ea 0RF opioid overdose Refilled hydromorphone Partial fill per patient's request only 4 mg PO BID 30 days PRN 60 tabs 0RF severe pain (scale score 7-10) F11.90 - Opioid use, unspecified, uncomplicated, G89.29 - Other chronic pain, G89.4 - Chronic pain syndrome, R10.9 - Unspecified abdominal pain Discontinued hydromorphone Partial Fill only upon patient request. Discontinued Reason: Duplicate 4 mg (2 x 2 mg) PO BID 30 days PRN 120 tabs 0RF pain Coding Level of Care Code Est Pt Level 4 (95900) Complex EM visit Add On G2211 Diagnoses Chronic abdominal pain R10.9; G89.29 Low back pain M54.5 Cervicalgia M54.2 Opioid contract exists Z79.891 Behcet's disease M35.2
[2024-02-02 11:21] VITALS: BP 122/60; PULSE 76; O2SAT 99; BMI 26.8
== END 2024-02-02 11:39 | disposition home or self-care (01) ==
PROVIDERS: PCP Internal Medicine; Visit Provider Nurse Practitioner Family
DX: R10.9 Unspecified abdominal pain (principal); G89.29 Other chronic pain; M54.50 Low back pain, unspecified; M54.2 Cervicalgia; Z79.891 Long term (current) use of opiate analgesic; M35.2 Behcet's disease
CPT/HCPCS: 99214; G2211

== ENCOUNTER → 2024-02-02 11:03 | Outpatient (BNVA) | payer MEDICARE, MEDICAID, SELFPAY | PROVIDERS: PCP Internal Medicine; Visit Provider Nurse Practitioner Family | DX: Z51.81 Encounter for therapeutic drug level monitoring (principal); M54.50 Low back pain, unspecified; M54.2 Cervicalgia; M35.2 Behcet's disease; R10.9 Unspecified abdominal pain; G89.29 Other chronic pain; Z79.891 Long term (current) use of opiate analgesic | CPT/HCPCS: 99212 ==

== ENCOUNTER 2024-03-15 10:56 | Outpatient (AMB) | payer MEDICARE, MEDICAID, SELFPAY ==
--- NOTE | 2024-03-15 10:58 | MHC.OFFVIS ---
Vital Signs 03/15/24 11:35 Height 5 ft Weight 131 lb BMI 25.6 BP 120/66 Blood Pressure Location Lt brachial Position Sitting Respiration 16 Pulse 80 Pulse Source Pulse Oximeter Pulse Oximetry (%) 98 Oxygen Delivery Method Room Air Intake Visit Reasons: ITDD Refill/Pill Count Intake Note: Patient comes in for pill count and intrathecal medication refill. Reports pain 11/29. Allergies ciprofloxacin [Cipro] Allergy (Unknown, Verified 03/15/24 11:36) Hives levofloxacin [Levaquin] Allergy (Unknown, Verified 03/15/24 11:36) Hives metoclopramide [Reglan] Allergy (Unknown, Verified 03/15/24 11:36) Hives ondansetron [Zofran] Allergy (Unknown, Verified 03/15/24 11:36) Itching penicillin V Allergy (Unknown, Verified 03/15/24 11:36) Hives prochlorperazine [From Compazine] Allergy (Unknown, Verified 03/15/24 11:36) Shortness of Breath Sulfa (Sulfonamide Antibiotics) Allergy (Unknown, Verified 03/15/24 11:36) Hives thalidomide [From Thalomid] Allergy (Unknown, Verified 03/15/24 11:36) Rash haloperidol [From Haldol] Allergy (Verified 03/15/24 11:36) Itching HPI Comments Details: Brooklyn in the office today for the follow-up , pain pump refill and medication pill count pill count. She reports that she still continues to have headaches but the frequency of this headaches is not increasing. At this time I am not sure whether we need to proceed to any interventions to help this condition. She still claims that the headache is positional. Her pill count was performed today. She supposed to come with 48 pills with her possession. She presents with 48 pills in her possession. Therefore her pill count is correct. The pain pump refill is as below. She continues to report some nausea with application of PTM doses. She reports that PTM helps her abdominal pain. We decided to increase further the time of the administration of her PTM from 50 minutes to 59 minutes. Prior: Brooklyn is 41 years old female who is suffering from multiple medical conditions including Bencet disease, Crohn's disease, she is immunocompromised.? Her pain involves chronic abdominal pain in lower back pain.? She also has a chronic pelvic pain.? She was under might exacerbation on chronic oral opioid therapy for 3 years.? She was approved by psychological evaluation in the past for the neuromodulation.. [facility] Medical History Pulmonary emboli Crohn's disease Chronic, continuous use of opioids Immunosuppression Absence seizure disorder DVT (deep venous thrombosis) Pyloric stenosis Asthma Common variable immunodeficiency Spondylolisthesis, lumbar region Spondylosis of lumbar region without myelopathy or radiculopathy Abdominal pain, chronic, generalized Gastroparesis Spontaneous pneumothorax Chronic pain syndrome Cervicalgia Low back pain Behcet's disease Surgical History History of hernia surgery Family History Father Hairy cell leukemia Social History Household Members: Children Household Members Other:: son [facility]: [facility] Do you presently have visiting nurse or other home services: No Unable to assess alcohol history related to: Unknown Alcohol intake: never Patient Tobacco Use Status: Never used Tobacco Second Hand Smoke Exposure: No Advance Directives Date on File: 04/22/23 service: No Current occupational status: unemployed Review of Systems Const All systems reviewed & are unremarkable except as noted in HPI and below Physical Exam Vital Signs: Last Vital Signs Pulse 80 03/15/24 11:35 Resp 16 03/15/24 11:35 BP 120/66 03/15/24 11:35 Pulse Ox 98 03/15/24 11:35 Oxygen Delivery Method Room Air 03/15/24 11:35 BMI result Body Mass Index 25.6 Const General: cooperative, no acute distress and alert Orientation/consciousness: patient oriented x3 HEENT Head: Yes normocephalic and Yes atraumatic Ears: hearing grossly normal bilaterally Eyes General: appearance normal, both eyes and all related structures Alignment and Position: alignment normal and position normal Periorbital: periorbital findings normal Eyelids: Yes eyelids normal Pupils: Equal, round and reactive pupils present, pupils equal and not dilated EOM: EOMs intact bilaterally Direct Ophthalmoscopy: no photophobia Neck Neck: Yes normal visual inspection and Yes no JVD Resp Effort & Inspection: normal respiratory effort, able to speak in complete sentences and no audible wheezes Cardio Jugular venous distension: no JVD GI Inspection: Yes incision and Yes scar Back/Spine/Pelvis Cervical Spine: normal cervical lordosis Thoracic/Lumbar Spine: thoracic and lumbar spine normal to inspection Neuro General: patient oriented x3, gait normal and moves all extremities Cranial nerves: Yes Equal, round and reactive pupils present Assessment & Plan Assessment & Plan (1) Cervicalgia: Code(s): M54.2 - Cervicalgia Category: Medical Plan: (2) Behcet's disease: Code(s): M35.2 - Behcet's disease Category: Medical Plan: (3) Low back pain: Code(s): M54.5 - Low back pain Category: Medical (4) Chronic abdominal pain: Code(s): R10.9 - Unspecified abdominal pain; G89.29 - Other chronic pain Category: Medical Plan: ? Intrathecal pump refill. The patient came today in the office for the change of the medication in the pain pump. The name and date of were verified and informed consent was obtained for the procedure. The pump was interrogated and the residual amount of fluid was found to be 6.8 mL. SHE WAS POSITIONED prone on the bed AND THE AREA OF THE INTRATHECAL PUMP WAS PREPPED WITH CHLORAPREP. The fenestrated drape was sterilely applied over the area of the pump. Sterile gloves were worn and of the aspiration system was assembled containing 2 in 22 gauge noncoring needle, the needle was connected to extension tubing which was connected to the 20 cc sterile syringe. The pain pump was palpated under the skin in the patient's left buttock area. The needle was inserted through the skin and the central plug of the pain pump and fluid was aspirated. The clear fluid was going into the syringe the total amount of the fluid was 7.4 mL .. After that a new batch? of medication was obtained which was containing bupivacaine in the concentration of 28 milligrams/mL.. The admixture was made in 20 cc syringe prepared by [facility] compounding pharmacy. The syringe was connected to the bacterial filter, and then connected to the extension tubing. After that the medication in the syringe was slowly instilled into the pump with aspirations at 15 and 5 cc joiner.? The pump was reprogrammed continuous dose of 1.4 mg a day as well as for possible administrations per day of bupivacaine 1.9 mg every 4 hours 4 times a day with the length of the time of the administration of each PTM dose at 59 minutes... (5) Postdural puncture headache: Code(s): G97.1 - Other reaction to spinal and lumbar puncture Category: Medical Plan Pain is acceptable at 6/10. Pill count is correct today, the patient reports no side effects or complications of the hydromorphone opioid medications. Next appointment for the pump refill will be scheduled on 05/24/2024. The next pill count will be scheduled as a nursing visit and medication will be prescribed to her. Coding Level of Care Code Est Pt Level 3 (72061) Procedure Only Diagnoses Cervicalgia M54.2 Behcet's disease M35.2 Low back pain M54.5 Chronic abdominal pain R10.9; G89.29 Postdural puncture headache G97.1
[2024-03-15 11:35] VITALS: BP 120/66; PULSE 80; RESP 16; O2SAT 98; BMI 25.6
== END 2024-03-15 11:33 | disposition home or self-care (01) ==
PROVIDERS: PCP Internal Medicine; Visit Provider Anesthesiology
DX: M54.2 Cervicalgia (principal); M35.2 Behcet's disease; M54.50 Low back pain, unspecified; R10.9 Unspecified abdominal pain; Z45.1 Encounter for adjustment and management of infusion pump; G89.29 Other chronic pain; G97.1 Other reaction to spinal and lumbar puncture
CPT/HCPCS: 62370; 99213

== ENCOUNTER → 2024-03-15 10:56 | Outpatient (BNVA) | payer MEDICARE, MEDICAID, SELFPAY | PROVIDERS: PCP Internal Medicine; Visit Provider Anesthesiology | DX: M54.2 Cervicalgia (principal); M35.2 Behcet's disease; M54.50 Low back pain, unspecified; R10.9 Unspecified abdominal pain; G89.29 Other chronic pain; G97.1 Other reaction to spinal and lumbar puncture; Z51.81 Encounter for therapeutic drug level monitoring; Z45.1 Encounter for adjustment and management of infusion pump; Z79.891 Long term (current) use of opiate analgesic | CPT/HCPCS: 62370; 99212 ==

== ENCOUNTER 2024-03-24 18:12 | Emergency (ER) | payer MEDICARE, MEDICAID, SELFPAY ==
--- NOTE | ~2024-03-24 | XR_ITS ---
EXAMINATION: XR CHEST CLINICAL INFORMATION: Shortness of breath, cough COMPARISON: Chest x-ray on 09/10/2023 TECHNIQUE: Frontal view of the chest was obtained. FINDINGS: The cardiac silhouette is normal. There is mild diffuse bronchial wall thickening. There are no areas of consolidation. Trace left pleural effusion. XR/XR chest 1V IMPRESSION: Bronchial wall thickening may be infectious and/or inflammatory in etiology. Electronically signed by: Katy Singletary MD 03/24/2024 07:01 PM EDT
[2024-03-24 18:33] VITALS: BP 124/69; PULSE 84; RESP 16; TEMP 36.6; O2SAT 98; BMI 25.4
[2024-03-24 19:08] LABS: MANUAL DIFF FLAG NO
[2024-03-24 19:09] LABS: Basophils Percent Auto 0.8 % (0-2); Eosinophils Absolute Auto 0.2 X10*3/uL (0.0-0.4); Eosinophils Percent Auto 4.4 % (0-4); Hematocrit 36.9 % (37.0-47.0); Hemoglobin 12.9 g/dl (12.0-16.0); Imm Gran Abs Auto 0.01 X10*3/uL (0.00-0.03); Imm Gran Pct Auto 0.2 % (0.0-0.4); Lymphocytes Absolute Auto 1.6 X10*3/uL (1.2-4.9); Lymphocytes Percent Auto 32.5 % (20-40); Mean Corpuscular Hemoglobin 30.4 pg (27.0-33.0); Mean Platelet Volume 9.9 fL (9.4-12.3); Monocytes Absolute Auto 0.4 X10*3/uL (0.1-1.2); Monocytes Percent Auto 8.5 % (2-11); Neutrophils Absolute Auto 2.7 x10*3/uL (2.0-8.3); Neutrophils Percent Auto 53.6 % (45-73); Platelet Count 217 X10*3/uL (160-400); Red Blood Count 4.24 X10*6/uL (4.20-5.50); Red Cell Distribution Width 13.2 % (11.0-16.0)
[2024-03-24 19:18] LABS: INTERNATIONAL NORM RATIO 0.9 (0.9-1.1); Prothrombin Time 10.8 SEC (10.9-12.4)
[2024-03-24 19:20] LABS: Partial Thromboplastin Time 28.8 SEC (26.0-36.8)
[2024-03-24 19:24] LABS: Alanine Aminotransferase 14 U/L (0-31); Albumin Level 4.4 g/dL (3.5-5.0); Alkaline Phosphatase 64 U/L (39-117); Anion Gap 16 (12-20); Aspartate Amino Transferase 22 U/L (5-31); Bilirubin Direct < 0.2 mg/dL (0.0-0.5); Bilirubin Total 0.2 mg/dL (0.0-1.0); Blood Urea Nitrogen 20 mg/dL (9-16); Calcium 8.8 mg/dL (8.4-10.2); Carbon Dioxide 21 mmol/L (22-29); Chloride 107 mmol/L (96-108); Creatinine Clr Calc Pharmacy 68.7; Estimated Glomerular Filt Rate > 60; Glucose Random 88 mg/dL (60-115); Potassium 4.1 mmol/L (3.3-5.1); Sodium 140 mmol/L (135-145)
--- NOTE | 2024-03-24 19:36 | ED.URI ---
HPI - URI/Sore Throat General Chief Complaint: Upper Respiratory Symptoms Stated Complaint: cough, sob Time Seen by Provider: 03/24/24 19:23 Source: patient Limitations: no limitations History of Present Illness ED Provider: Teresa Sheikh PA-C HPI Narrative: 43-year-old female with a history of asthma presents with cough and cold symptoms x1 week. Patient has spiked a temperature at home of 100.5 today, she has been using her home inhalers without relief from symptoms. Denies change in quality of cough, no new symptoms. No known sick contacts with similar symptoms. Related Data Home Medications ?Medication ?Instructions ?Recorded ?Confirmed albuterol sulfate 90 mcg/actuation 2 puff inhalation Q4H PRN Wheezing 12/12/20 01/06/24 aerosol inhaler fluticasone furoate 200 1 inh inhalation Q24H 12/12/20 01/06/24 mcg-vilanterol 25 mcg/dose inhalation powder (Breo Ellipta) umeclidinium 62.5 mcg/actuation 1 inh inhalation DAILY 12/12/20 01/06/24 blister powder for inhalation (Incruse Ellipta) diphenhydramine HCl 50 mg/mL 25 mg IV QID PRN Nausea 03/12/21 01/06/24 injection solution ondansetron HCl (PF) 4 mg/2 mL 4 mg IV QID PRN Nausea 03/12/21 01/06/24 injection solution levetiracetam 100 mg/mL oral 700 mg PO BID 08/18/21 01/06/24 solution (Keppra) promethazine 25 mg tablet 25 mg PO QID PRN Nausea And 08/18/21 01/06/24 Vomiting Previous Rx's ?Medication ?Instructions ?Recorded apixaban 5 mg tablet (Eliquis) 5 mg PO BID #60 tabs 02/15/23 [id number]-mvtzcsuzbjwfz-eevsohmn 1 cap PO TID PRN Post dural 05/26/23 50 mg-300 mg-40 mg capsule puncture headache 10 days #30 caps (Fioricet) albuterol sulfate 90 mcg/actuation 2 puff inhalation Q4-6H PRN 09/10/23 aerosol inhaler shortness of breath or wheezing #8.5 grams naloxone 4 mg/actuation nasal 4 mg intranasal Q2M PRN opioid 02/02/24 spray (Narcan) overdose #2 ea hydromorphone 4 mg tablet 4 mg PO BID PRN severe pain (scale 03/09/24 score 7-10) 30 days #60 tabs azithromycin 250 mg tablet 250 mg PO DAILY 4 days #4 tabs 03/24/24 prednisone 20 mg tablet 40 mg (2 x 20 mg) PO DAILY #8 tabs 03/24/24 Allergies Allergy/AdvReac Type Severity Reaction Status Date / Time ciprofloxacin [Cipro] Allergy Unknown Hives Verified 03/24/24 18:37 levofloxacin [Levaquin] Allergy Unknown Hives Verified 03/24/24 18:37 metoclopramide [Reglan] Allergy Unknown Hives Verified 03/24/24 18:37 ondansetron [Zofran] Allergy Unknown Itching Verified 03/24/24 18:37 penicillin V Allergy Unknown Hives Verified 03/24/24 18:37 prochlorperazine Allergy Unknown Shortness Verified 03/24/24 18:37 [From Compazine] of Breath Sulfa (Sulfonamide Allergy Unknown Hives Verified 03/24/24 18:37 Antibiotics) thalidomide [From Thalomid] Allergy Unknown Rash Verified 03/24/24 18:37 haloperidol [From Haldol] Allergy Itching Verified 03/24/24 18:37 Review of Systems Review of Systems: Yes all other systems are reviewed and are negative Constitutional: Constitutional: Denies fatigue and Reports fever(s) Cardiovascular: Cardiovascular: Denies chest pain and Reports dyspnea Respiratory: Respiratory: Reports cough, Reports dyspnea and Reports wheezing Gastrointestinal: Gastrointestinal: Denies diarrhea, Denies nausea and Denies vomiting Endocrine: Endocrine: Denies fatigue Allergic/Immunologic: Allergic/Immunologic: Reports wheezing PMFSH Past Medical History Attestation statement: The following information was validated with the patient. Medical History Pulmonary emboli Crohn's disease Chronic, continuous use of opioids Immunosuppression Absence seizure disorder DVT (deep venous thrombosis) Pyloric stenosis Asthma Common variable immunodeficiency Spondylolisthesis, lumbar region Spondylosis of lumbar region without myelopathy or radiculopathy Abdominal pain, chronic, generalized Gastroparesis Spontaneous pneumothorax Chronic pain syndrome Cervicalgia Low back pain Behcet's disease Surgical History History of hernia surgery Family History Family History Father Hairy cell leukemia Social History Social History Household Members: Children Household Members Other:: son Housing: Condominium Do you presently have visiting nurse or other home services: No Unable to assess alcohol history related to: Unknown Alcohol intake: never Patient Tobacco Use Status: Never used Tobacco Second Hand Smoke Exposure: No Advance Directives: No Advance Directives Information Provided: No Advance Directives Date on File: 04/22/23 service: No Current occupational status: unemployed Physical Exam Vital Signs: Vital Signs: Last Vital Signs Temp 97.6 F 03/24/24 22:20 Pulse 81 03/24/24 22:20 Resp 16 03/24/24 22:20 BP 117/64 03/24/24 22:20 Pulse Ox 100 03/24/24 22:20 O2 Del Method Room Air 03/24/24 22:20 BMI result Body Mass Index 25.4 Const: Other: Alert, well-appearing Orientation/consciousness: patient oriented x3 Resp: Other: Occasional expiratory wheeze, nonlabored respirations, speaking in clear sentences Cardio: Other: Normal peripheral perfusion Skin: Other: Warm dry no rash Neuro: General: patient oriented x3, no focal motor deficits and CN's II-XI intact bilaterally Psych: Other: Calm cooperative Medications Administered Discontinued Medications Generic Name Dose Route Start Last Admin Trade Name Freq PRN Reason Stop Dose Admin Albuterol Sulfate 7.5 mg 03/24/24 20:29 03/24/24 21:08 Albuterol Sulfate (0.083%) 2.5 Mg/3 Ml Vial.Neb INHALE 03/24/24 20:30 7.5 mg ONCE ONE Administration Azithromycin 500 mg 03/24/24 20:29 03/24/24 20:38 Azithromycin 500 Mg Tablet PO 03/24/24 20:30 500 mg ONCE ONE Administration Prednisone 40 mg 03/24/24 20:29 03/24/24 20:38 Prednisone 20 Mg Tablet PO 03/24/24 20:30 40 mg ONCE ONE Administration Medical Decision Making Medical Decision Making MDM Narrative: 43-year-old female with a history of asthma presents with cough and cold symptoms x1 week. Patient has spiked a temperature at home of 100.5 today, she has been using her home inhalers without relief from symptoms. Denies change in quality of cough, no new symptoms. No known sick contacts with similar symptoms. Problem: Asthma History: Per patient I have considered the following differential diagnoses: Asthma exacerbation, viral syndrome, bronchitis, pneumonia Plan: Screening labs including viral panel and chest x-ray were obtained from triage. Given new onset fever, in the setting that mycoplasma has been prominent within the community, we will treat for a bronchitis given findings on chest x-ray. Giving an updraft home, steroid and her 1st dose of azithromycin. I have independently reviewed the following tests: Labs: No leukocytosis, not anemic, no electrolyte abnormality, viral panel Chest x-ray: XR/XR chest 1V IMPRESSION: Bronchial wall thickening may be infectious and/or inflammatory in etiology. Electronically signed by: Katy Singletary MD 03/24/2024 07:01 PM EDT RP Lab Data 03/24/24 19:02 03/24/24 19:02 Labs: Lab Results 03/24/24 Range/Units 19:02 WBC 5.0 (4.8-10.8) X10*3/uL RBC 4.24 (4.20-5.50) X10*6/uL Hgb 12.9 (12.0-16.0) g/dl Hct 36.9 L (37.0-47.0) % MCV 87.0 (80.0-98.0) fL MCH 30.4 (27.0-33.0) pg MCHC 35.0 (31.0-35.0) g/dl RDW 13.2 (11.0-16.0) % Plt Count 217 (160-400) X10*3/uL MPV 9.9 (9.4-12.3) fL Immature Gran % (Auto) 0.2 (0.0-0.4) % Neut % (Auto) 53.6 (45-73) % Lymph % (Auto) 32.5 (20-40) % Gilliam % (Auto) 8.5 (2-11) % Eos % (Auto) 4.4 H (0-4) % Baso % (Auto) 0.8 (0-2) % Lymph # (Auto) 1.6 (1.2-4.9) X10*3/uL Gilliam # (Auto) 0.4 (0.1-1.2) X10*3/uL Eos # (Auto) 0.2 (0.0-0.4) X10*3/uL Baso # (Auto) 0.0 (0.0-0.2) X10*3/uL Abs Immat Gran (auto) 0.01 (0.00-0.03) X10*3/uL Absolute Neuts (auto) 2.7 (2.0-8.3) x10*3/uL Absolute Nucleated RBC 0.000 (0.0-0.012) X10*3/uL Nucleated RBC % (auto) 0.0 (0.0-0.2) /100WBC PT 10.8 L (10.9-12.4) SEC INR 0.9 (0.9-1.1) APTT 28.8 D (26.0-36.8) SEC Sodium 140 (135-145) mmol/L Potassium 4.1 (3.3-5.1) mmol/L Chloride 107 (96-108) mmol/L Carbon Dioxide 21 L (22-29) mmol/L Anion Gap 16 (12-20) BUN 20 H (9-16) mg/dL Creatinine 0.83 (0.5-1.4) mg/dL Estim Creat Clear Calc 68.7 Estimated GFR > 60 Random Glucose 88 (60-115) mg/dL Calcium 8.8 (8.4-10.2) mg/dL Total Bilirubin 0.2 (0.0-1.0) mg/dL Direct Bilirubin < 0.2 (0.0-0.5) mg/dL AST 22 (5-31) U/L ALT 14 (0-31) U/L Alkaline Phosphatase 64 (39-117) U/L Total Protein 7.0 (6.5-8.0) g/dL Albumin 4.4 (3.5-5.0) g/dL Influenza Type A (PCR) NEGATIVE (Negative) Influenza Type B (PCR) NEGATIVE (Negative) RSV RNA Qual (PCR) NEGATIVE (Negative) SARS-CoV-2 RNA (RT-PCR) NEGATIVE (Negative) Discharge Plan Discharge Clinical Impression: Bronchitis Patient Disposition: Home, Self-Care Instructions: Acute Bronchitis (ED) Additional Instructions: You are being treated for bronchitis, the viral panel was negative, you were screened for RSV, influenza and COVID. See home care instructions. Use your home inhalers as needed, take the antibiotic, the Z-Claude as directed. Use the steroid as directed. You received your 1st dose of steroid and antibiotic tonight in the ER. Follow up with your primary care provider as needed Prescriptions: New azithromycin 250 mg tablet 250 mg PO DAILY 4 Days Qty: 4 0RF Rx Instructions: start on day 2 of therapy prednisone 20 mg tablet 40 mg PO DAILY Qty: 8 0RF No Action hydromorphone 4 mg tablet 4 mg PO BID PRN (Reason: severe pain (scale score 7-10)) 30 Days Qty: 60 0RF Rx Instructions: Partial fill per patient's request only albuterol sulfate 90 mcg/actuation Hfa Aerosol Inhaler 2 puff INHALATION Q4H PRN (Reason: Wheezing) Incruse Ellipta 62.5 mcg/actuation Blister With Device 1 inh INHALATION DAILY fluticasone furoate-vilanterol [Breo Ellipta] 200-25 mcg/dose Blister With Device 1 inh INHALATION Q24H diphenhydramine HCl 50 mg/mL solution 25 mg IV QID PRN (Reason: Nausea) ondansetron HCl (PF) 4 mg/2 mL solution 4 mg IV QID PRN (Reason: Nausea) promethazine 25 mg Tablet 25 mg PO QID PRN (Reason: Nausea And Vomiting) levetiracetam [Keppra] 100 mg/mL Solution 700 mg PO BID albuterol sulfate 90 mcg/actuation HFA aerosol inhaler 2 puff inhalation Q4-6H PRN (Reason: shortness of breath or wheezing) Qty: 8.5 0RF Eliquis 5 mg tablet 5 mg PO BID Qty: 60 0RF ikqvzrwkjy-kzhsjujspdtok-ulha [Fioricet] 50-300-40 mg capsule 1 cap PO TID PRN (Reason: Post dural puncture headache) 10 Days Qty: 30 0RF naloxone [Narcan] 4 mg/actuation spray,non-aerosol 4 mg intranasal Q2M PRN (Reason: opioid overdose) Qty: 2 0RF Rx Instructions: spray 1 dose into ONE nostril; alternate nostrils w each dose until help arrives Print Language: [place] Citizen
[2024-03-24 19:48] LABS: Influenza A PCR NEGATIVE (Negative); Influenza B PCR NEGATIVE (Negative); Resp Syncy Virus RNA Qual PCR NEGATIVE (Negative); SARS COV2 PCR INHOUSE NEGATIVE (Negative)
[2024-03-24 20:00] VITALS: BP 126/65; PULSE 69; RESP 16; TEMP 36.3; O2SAT 96
[2024-03-24] MEDS: Azithromycin 500 MG TABLET PO (20:38)
[2024-03-24] MEDS: predniSONE 20 MG TABLET 40 MG PO (20:38)
[2024-03-24] MEDS: Albuterol Sulfate (0.083%) 2.5 MG/3 ML VIAL.NEB 7.5 MG INHALE (21:08)
[2024-03-24 22:20] VITALS: BP 117/64; PULSE 81; RESP 16; TEMP 36.4; O2SAT 100
[2024-03-24 22:48] VITALS: BP 117/64; PULSE 81; RESP 16; TEMP 36.4; O2SAT 100
== END 2024-03-24 22:49 | disposition home or self-care (01) ==
PROVIDERS: Physician Assistant Medical; Emergency Provider Emergency Medicine
DX: J40 Bronchitis, not specified as acute or chronic (principal); Z03.818 Encounter for observation for suspected exposure to other biological agents ruled out; R05.9 Cough, unspecified; Z86.711 Personal history of pulmonary embolism; Z79.01 Long term (current) use of anticoagulants; Z79.899 Other long term (current) drug therapy
CPT/HCPCS: 0241U; 36415; 71045; 80048; 80076; 85025; 85610; 85730; 99284

== ENCOUNTER 2024-04-26 09:22 | Outpatient (AMB) | payer OTHER, SELFPAY ==
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
[2024-04-26 09:29] VITALS: BP 128/67; PULSE 81; O2SAT 99; BMI 26.6
== END 2024-04-26 09:58 | disposition home or self-care (01) ==
PROVIDERS: Visit Provider Anesthesiology
DX: M54.2 Cervicalgia (principal); M35.2 Behcet's disease; M54.50 Low back pain, unspecified; R10.9 Unspecified abdominal pain; Z45.1 Encounter for adjustment and management of infusion pump
CPT/HCPCS: 62368; 99214

== ENCOUNTER → 2024-04-26 09:22 | Outpatient (BNVA) | payer OTHER, SELFPAY | PROVIDERS: Visit Provider Anesthesiology | DX: M54.2 Cervicalgia (principal); M35.2 Behcet's disease; M54.50 Low back pain, unspecified; R10.9 Unspecified abdominal pain; G89.29 Other chronic pain; G97.1 Other reaction to spinal and lumbar puncture; F11.90 Opioid use, unspecified, uncomplicated; Z45.1 Encounter for adjustment and management of infusion pump; Z51.81 Encounter for therapeutic drug level monitoring | CPT/HCPCS: 62368 ==

== ENCOUNTER 2024-05-24 11:01 | Outpatient (AMB) | payer MEDICARE, MEDICAID, SELFPAY ==
[2024-05-24 11:27] VITALS: BP 127/65; PULSE 84; O2SAT 96; BMI 26.8
--- NOTE | 2024-05-24 11:27 | MHC.OFFVIS ---
Vital Signs 05/24/24 11:27 Height 5 ft Weight 137 lb BMI 26.8 BP 127/65 Blood Pressure Location Lt brachial Position Sitting Pulse 84 Pulse Oximetry (%) 96 Oxygen Delivery Method Room Air Intake Visit Reasons: ITDD Refill/pill count/ random UDS Intake Note: Medication last taken at 8;00 05/24/24 Allergies ciprofloxacin [Cipro] Allergy (Unknown, Verified 05/24/24 11:28) Hives levofloxacin [Levaquin] Allergy (Unknown, Verified 05/24/24 11:28) Hives metoclopramide [Reglan] Allergy (Unknown, Verified 05/24/24 11:28) Hives ondansetron [Zofran] Allergy (Unknown, Verified 05/24/24 11:28) Itching penicillin V Allergy (Unknown, Verified 05/24/24 11:28) Hives prochlorperazine [From Compazine] Allergy (Unknown, Verified 05/24/24 11:28) Shortness of Breath Sulfa (Sulfonamide Antibiotics) Allergy (Unknown, Verified 05/24/24 11:28) Hives thalidomide [From Thalomid] Allergy (Unknown, Verified 05/24/24 11:28) Rash haloperidol [From Haldol] Allergy (Verified 05/24/24 11:28) Itching Medication List - Last Reconciled 05/24/24 by Jaylene Asencio, CORRECTIONAL SUBSTANCE ABUSE COUNSELOR albuterol sulfate 90 mcg/actuation 2 puffs inhalation Q4H PRN albuterol sulfate 90 mcg/actuation 2 puffs inhalation Q4-6H PRN apixaban (Eliquis) 5 mg PO BID azithromycin 250 mg PO DAILY 4 days dnlwlhpqjl-mslujadgbjuvp-djpa 50-300-40 mg (Fioricet) 1 cap PO TID PRN 10 days diphenhydramine HCl 25 mg IV QID PRN fluticasone furoate-vilanterol 200-25 mcg/dose (Breo Ellipta) 1 inh inhalation Q24H hydromorphone 4 mg PO BID PRN 30 days levetiracetam (Keppra) 700 mg PO BID metoprolol succinate ER 25 mg PO DAILY naloxone 4 mg/actuation (Narcan) 4 mg intranasal Q2M PRN ondansetron HCl (PF) 4 mg IV QID PRN prednisone 40 mg (2 x 20 mg) PO DAILY promethazine 25 mg PO QID PRN umeclidinium 62.5 mcg/actuation (Incruse Ellipta) 1 inh inhalation DAILY HPI Comments Details: Brooklyn in the office today for the follow-up , pain pump adjustment and medication pill count. The pain pump was refilled as described below.. She reports that she does not feel much pain improvement with the PTM applications. I increased the dose of each PTM application from 1.599 mg to 1.699 mg. Pill count today: She supposed to have 40 pills in her possession. She presented herself with for pills in her possession. Therefore this is correct pill count. This demonstrates responsible attitude to were the opioid medications. She was prescribed her hydromorphone on 05/14/2024 next prescription is due on 06/13/2023. The patient is also complaining on 3 headaches a week, she reports that Excedrin helps her headache. She reports that headache is mostly in the front of the head, unlikely PDPH. Prior: Brooklyn is 41 years old female who is suffering from multiple medical conditions including Bencet disease, Crohn's disease, she is immunocompromised.? Her pain involves chronic abdominal pain in lower back pain.? She also has a chronic pelvic pain.? She was under might exacerbation on chronic oral opioid therapy for 3 years.? She was approved by psychological evaluation in the past for the neuromodulation.. [facility] Medical History Pulmonary emboli Crohn's disease Chronic, continuous use of opioids Immunosuppression Absence seizure disorder DVT (deep venous thrombosis) Pyloric stenosis Asthma Common variable immunodeficiency Spondylolisthesis, lumbar region Spondylosis of lumbar region without myelopathy or radiculopathy Abdominal pain, chronic, generalized Gastroparesis Spontaneous pneumothorax Chronic pain syndrome Cervicalgia Low back pain Behcet's disease Surgical History History of hernia surgery Family History Father Hairy cell leukemia Social History Household Members: Children Household Members Other:: son Housing: Condominium Do you presently have visiting nurse or other home services: No Unable to assess alcohol history related to: Unknown Alcohol intake: never Patient Tobacco Use Status: Never used Tobacco Second Hand Smoke Exposure: No Advance Directives Date on File: 04/22/23 service: No Current occupational status: unemployed Review of Systems Const All systems reviewed & are unremarkable except as noted in HPI and below Physical Exam Vital Signs: Last Vital Signs Pulse 84 05/24/24 11:27 BP 127/65 05/24/24 11:27 Pulse Ox 96 05/24/24 11:27 Oxygen Delivery Method Room Air 05/24/24 11:27 BMI result Body Mass Index 26.8 Const General: cooperative, no acute distress and alert Orientation/consciousness: patient oriented x3 HEENT Head: Yes normocephalic and Yes atraumatic Ears: hearing grossly normal bilaterally Eyes General: appearance normal, both eyes and all related structures Alignment and Position: alignment normal and position normal Periorbital: periorbital findings normal Eyelids: Yes eyelids normal Pupils: Equal, round and reactive pupils present, pupils equal and not dilated EOM: EOMs intact bilaterally Direct Ophthalmoscopy: no photophobia Neck Neck: Yes normal visual inspection and Yes no JVD Resp Effort & Inspection: normal respiratory effort, able to speak in complete sentences and no audible wheezes Cardio Jugular venous distension: no JVD GI Inspection: Yes incision and Yes scar Back/Spine/Pelvis Cervical Spine: normal cervical lordosis Thoracic/Lumbar Spine: thoracic and lumbar spine normal to inspection Neuro General: patient oriented x3, gait normal and moves all extremities Cranial nerves: Yes Equal, round and reactive pupils present Assessment & Plan Assessment & Plan (1) Cervicalgia: Code(s): M54.2 - Cervicalgia Category: Medical Plan: (2) Behcet's disease: Code(s): M35.2 - Behcet's disease Category: Medical Plan: (3) Low back pain: Code(s): M54.5 - Low back pain Category: Medical (4) Chronic abdominal pain: Code(s): R10.9 - Unspecified abdominal pain; G89.29 - Other chronic pain Category: Medical Plan: ? Intrathecal pump refill. The patient came today in the office for the change of the medication in the pain pump. The name and date of were verified and informed consent was obtained for the procedure. The pump was interrogated and the residual amount of fluid was found to be 9.4 mL. SHE WAS POSITIONED prone on the bed AND THE AREA OF THE INTRATHECAL PUMP WAS PREPPED WITH CHLORAPREP. The fenestrated drape was sterilely applied over the area of the pump. Sterile gloves were worn and of the aspiration system was assembled containing 2 in 22 gauge noncoring needle, the needle was connected to extension tubing which was connected to the 20 cc sterile syringe. The pain pump was palpated under the skin in the patient's left buttock area. The needle was inserted through the skin and the central plug of the pain pump and fluid was aspirated. The clear fluid was going into the syringe the total amount of the fluid was 9.4 mL .. After that a new batch? of medication was obtained which was containing bupivacaine in the concentration of 28 milligrams/mL.. The admixture was made in 20 cc syringe prepared by [facility] compounding pharmacy. The syringe was connected to the bacterial filter, and then connected to the extension tubing. After that the medication in the syringe was slowly instilled into the pump with aspirations at 15 and 5 cc joiner.? The pump was reprogrammed continuous dose of 1.4 mg a day as well as for possible administrations per day of bupivacaine 1.699 mg every 4 hours 4 times a day with the length of the time of the administration of each PTM dose at 59 minutes... (5) Postdural puncture headache: Code(s): G97.1 - Other reaction to spinal and lumbar puncture Category: Medical Plan Pill count is correct today, the patient reports no side effects or complications of the hydromorphone opioid medications. Next appointment for pill count will be scheduled in 1 month. The medication will be prescribed for her for the refill at 06/13/2023. Next appointment for the pump refill will be scheduled in the beginning of July 60 days from now. The pill count next time will be scheduled in 1 month. Medications: Refilled hydromorphone Partial fill per patient's request only 4 mg PO BID 30 days PRN 60 tabs 0RF severe pain (scale score 7-10) F11.90 - Opioid use, unspecified, uncomplicated, G89.29 - Other chronic pain, G89.4 - Chronic pain syndrome, R10.9 - Unspecified abdominal pain Coding Level of Care Code Est Pt Level 3 (05351) Procedure Only Diagnoses Cervicalgia M54.2 Behcet's disease M35.2 Low back pain M54.5 Chronic abdominal pain R10.9; G89.29 Postdural puncture headache G97.1
== END 2024-05-24 11:29 | disposition home or self-care (01) ==
PROVIDERS: PCP Internal Medicine; Visit Provider Anesthesiology
DX: M54.2 Cervicalgia (principal); M35.2 Behcet's disease; M54.50 Low back pain, unspecified; R10.9 Unspecified abdominal pain; Z45.1 Encounter for adjustment and management of infusion pump; G89.29 Other chronic pain; G97.1 Other reaction to spinal and lumbar puncture
CPT/HCPCS: 62370; 99213

== ENCOUNTER → 2024-05-24 11:01 | Outpatient (BNVA) | payer MEDICARE, MEDICAID, SELFPAY | PROVIDERS: PCP Internal Medicine; Visit Provider Anesthesiology | DX: Z51.81 Encounter for therapeutic drug level monitoring (principal); Z45.89 Encounter for adjustment and management of other implanted devices; F11.20 Opioid dependence, uncomplicated; M54.2 Cervicalgia; M35.2 Behcet's disease; M54.50 Low back pain, unspecified; R10.9 Unspecified abdominal pain; G97.1 Other reaction to spinal and lumbar puncture; G89.29 Other chronic pain | CPT/HCPCS: 62370; 99212 ==

== ENCOUNTER 2024-05-30 08:32 | Outpatient (AMB) | payer MEDICARE, MEDICAID, SELFPAY ==
[2024-05-30 08:47] VITALS: BP 106/68; PULSE 89; O2SAT 99; BMI 26.8
--- NOTE | 2024-05-30 08:47 | A.OFFVIS_ITS ---
Vital Signs 05/30/24 08:47 Height 5 ft Weight 137 lb BMI 26.8 BP 106/68 Blood Pressure Location Lt brachial Position Sitting Pulse 89 Pulse Source Pulse Oximeter Pulse Oximetry (%) 99 Oxygen Delivery Method Room Air Intake Visit Reasons: Pump adj per rebecca Mobility Scooter Repairer Required: No Allergies ciprofloxacin [Cipro] Allergy (Unknown, Verified 05/30/24 08:47) Hives levofloxacin [Levaquin] Allergy (Unknown, Verified 05/30/24 08:47) Hives metoclopramide [Reglan] Allergy (Unknown, Verified 05/30/24 08:47) Hives ondansetron [Zofran] Allergy (Unknown, Verified 05/30/24 08:47) Itching penicillin V Allergy (Unknown, Verified 05/30/24 08:47) Hives prochlorperazine [From Compazine] Allergy (Unknown, Verified 05/30/24 08:47) Shortness of Breath Sulfa (Sulfonamide Antibiotics) Allergy (Unknown, Verified 05/30/24 08:47) Hives thalidomide [From Thalomid] Allergy (Unknown, Verified 05/30/24 08:47) Rash haloperidol [From Haldol] Allergy (Verified 05/30/24 08:47) Itching Medication List - Last Reconciled 05/30/24 by Jaylene Asencio, GLOBAL MOBILITY SPECIALIST albuterol sulfate 90 mcg/actuation 2 puffs inhalation Q4H PRN albuterol sulfate 90 mcg/actuation 2 puffs inhalation Q4-6H PRN apixaban (Eliquis) 5 mg PO BID azithromycin 250 mg PO DAILY 4 days ldlvmxweih-vlqrlkzgcmgzl-arsj 50-300-40 mg (Fioricet) 1 cap PO TID PRN 10 days diphenhydramine HCl 25 mg IV QID PRN fluticasone furoate-vilanterol 200-25 mcg/dose (Breo Ellipta) 1 inh inhalation Q24H hydromorphone 4 mg PO BID PRN 30 days levetiracetam (Keppra) 700 mg PO BID metoprolol succinate ER 25 mg PO DAILY naloxone 4 mg/actuation (Narcan) 4 mg intranasal Q2M PRN ondansetron HCl (PF) 4 mg IV QID PRN prednisone 40 mg (2 x 20 mg) PO DAILY promethazine 25 mg PO QID PRN umeclidinium 62.5 mcg/actuation (Incruse Ellipta) 1 inh inhalation DAILY HPI Comments Details: Brooklyn in the office today for the follow-up , pain pump adjustment . She reported that after application of the PTM device she started to feel dizziness and lightheadedness. She also felt tingling sensation in her chest. In the past we increase the time of the administration of the PTM bolus. Right now she has a higher concentration of the medication and possibly it requires again to increase the time of the administration. The pump was interrogated and the time of the administration was changed to 59 minutes. Prior: Brooklyn is 41 years old female who is suffering from multiple medical conditions including Bencet disease, Crohn's disease, she is immunocompromised.? Her pain involves chronic abdominal pain in lower back pain.? She also has a chronic pelvic pain.? She was under might exacerbation on chronic oral opioid therapy for 3 years.? She was approved by psychological evaluation in the past for the neuromodulation.. [facility] Medical History Pulmonary emboli Crohn's disease Chronic, continuous use of opioids Immunosuppression Absence seizure disorder DVT (deep venous thrombosis) Pyloric stenosis Asthma Common variable immunodeficiency Spondylolisthesis, lumbar region Spondylosis of lumbar region without myelopathy or radiculopathy Abdominal pain, chronic, generalized Gastroparesis Spontaneous pneumothorax Chronic pain syndrome Cervicalgia Low back pain Behcet's disease Surgical History History of hernia surgery Family History Father Hairy cell leukemia Social History Household Members: Children Household Members Other:: son Housing: Condominium Do you presently have visiting nurse or other home services: No Unable to assess alcohol history related to: Unknown Alcohol intake: never Patient Tobacco Use Status: Never used Tobacco Second Hand Smoke Exposure: No Advance Directives Date on File: 04/22/23 service: No Current occupational status: unemployed Review of Systems Const All systems reviewed & are unremarkable except as noted in HPI and below Physical Exam Vital Signs: Last Vital Signs Pulse 89 05/30/24 08:47 BP 106/68 05/30/24 08:47 Pulse Ox 99 05/30/24 08:47 Oxygen Delivery Method Room Air 05/30/24 08:47 BMI result Body Mass Index 26.8 Const General: cooperative, no acute distress and alert Orientation/consciousness: patient oriented x3 HEENT Head: Yes normocephalic and Yes atraumatic Ears: hearing grossly normal bilaterally Eyes General: appearance normal, both eyes and all related structures Alignment and Position: alignment normal and position normal Periorbital: periorbital findings normal Eyelids: Yes eyelids normal Pupils: Equal, round and reactive pupils present, pupils equal and not dilated EOM: EOMs intact bilaterally Direct Ophthalmoscopy: no photophobia Neck Neck: Yes normal visual inspection and Yes no JVD Resp Effort & Inspection: normal respiratory effort, able to speak in complete sentences and no audible wheezes Cardio Jugular venous distension: no JVD GI Inspection: Yes incision and Yes scar Back/Spine/Pelvis Cervical Spine: normal cervical lordosis Thoracic/Lumbar Spine: thoracic and lumbar spine normal to inspection Neuro General: patient oriented x3, gait normal and moves all extremities Cranial nerves: Yes Equal, round and reactive pupils present Assessment & Plan Assessment & Plan (1) Cervicalgia: Code(s): M54.2 - Cervicalgia Category: Medical Plan: (2) Behcet's disease: Code(s): M35.2 - Behcet's disease Category: Medical Plan: (3) Low back pain: Code(s): M54.5 - Low back pain Category: Medical (4) Chronic abdominal pain: Code(s): R10.9 - Unspecified abdominal pain; G89.29 - Other chronic pain Category: Medical Plan: ? Intrathecal pump adjustment. Intrathecal pain pump was interrogated. Continuous infusion kept at 1.953 mg a day. PTM with bupivacaine was scheduled as 1.696 mg to be administered over 59 minutes. She can not do it every 4 hours with 1 dose administered once in 1 4 hour interval and no more than 4 doses a day. (5) Postdural puncture headache: Code(s): G97.1 - Other reaction to spinal and lumbar puncture Category: Medical Plan Next appointment is scheduled for the patient. Coding Level of Care Code Est Pt Level 3 (89850) Procedure Only Diagnoses Cervicalgia M54.2 Behcet's disease M35.2 Low back pain M54.5 Chronic abdominal pain R10.9; G89.29 Postdural puncture headache G97.1
== END 2024-05-30 09:04 | disposition home or self-care (01) ==
PROVIDERS: PCP Internal Medicine; Visit Provider Anesthesiology
DX: M54.2 Cervicalgia (principal); M35.2 Behcet's disease; M54.50 Low back pain, unspecified; R10.9 Unspecified abdominal pain; Z45.1 Encounter for adjustment and management of infusion pump; G89.29 Other chronic pain; G97.1 Other reaction to spinal and lumbar puncture
CPT/HCPCS: 62367; 99213

== ENCOUNTER → 2024-05-30 08:32 | Outpatient (BNVA) | payer MEDICARE, MEDICAID, SELFPAY | PROVIDERS: PCP Internal Medicine; Visit Provider Anesthesiology | DX: M54.2 Cervicalgia (principal); M35.2 Behcet's disease; M54.50 Low back pain, unspecified; R10.9 Unspecified abdominal pain; G97.1 Other reaction to spinal and lumbar puncture; G89.29 Other chronic pain | CPT/HCPCS: 62367; 99212 ==

== ENCOUNTER 2024-06-21 09:24 | Outpatient (AMB) | payer MEDICARE, MEDICAID, SELFPAY ==
--- NOTE | 2024-06-21 09:25 | A.OFFVIS_ITS ---
Vital Signs 06/21/24 09:34 Height 5 ft Weight 140 lb 3 oz BMI 27.4 BP 120/67 Blood Pressure Location Rt brachial Position Sitting Pulse 88 Pulse Source Pulse Oximeter Intake Visit Reasons: Pill Count Intake Note: Brooklyn comes in today for a pill count to hydromorphone, patient should have 46 tablets and presents with 45 tablets which she last took today 06/11/24 at 7am. Pain today 11/29. Patient resigned opioid contract in office today, copy of signed contract was given to patient. 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 Required: No Accompanied by: Self / Same As Patient Allergies ciprofloxacin [Cipro] Allergy (Unknown, Verified 06/21/24 09:35) Hives levofloxacin [Levaquin] Allergy (Unknown, Verified 06/21/24 09:35) Hives metoclopramide [Reglan] Allergy (Unknown, Verified 06/21/24 09:35) Hives ondansetron [Zofran] Allergy (Unknown, Verified 06/21/24 09:35) Itching penicillin V Allergy (Unknown, Verified 06/21/24 09:35) Hives prochlorperazine [From Compazine] Allergy (Unknown, Verified 06/21/24 09:35) Shortness of Breath Sulfa (Sulfonamide Antibiotics) Allergy (Unknown, Verified 06/21/24 09:35) Hives thalidomide [From Thalomid] Allergy (Unknown, Verified 06/21/24 09:35) Rash haloperidol [From Haldol] Allergy (Verified 06/21/24 09:35) Itching HPI Comments Details: Brooklyn in the office today for the follow-up and pain medication refill. She presented today herself with 45 pills in her possession. She supposed to have 46 pills in her possession. Technically her pill count is correct however she is 1 pills short and I explained to her that this could lead to unacceptable results. We discussed possibility of taking her oral opioid medications only when her pain is most severe. She reports adequate pain control of the abdominal pain with pain pump however her lower back pain continues to bother her. Today she denies side effects from the pain pump applications of the PTM doses. Prior: Brooklyn is 41 years old female who is suffering from multiple medical conditions including Bencet disease, Crohn's disease, she is immunocompromised.? Her pain involves chronic abdominal pain in lower back pain.? She also has a chronic pelvic pain.? She was under might exacerbation on chronic oral opioid therapy for 3 years.? She was approved by psychological evaluation in the past for the neuromodulation.. [facility] Medical History Pulmonary emboli Crohn's disease Chronic, continuous use of opioids Immunosuppression Absence seizure disorder DVT (deep venous thrombosis) Pyloric stenosis Asthma Common variable immunodeficiency Spondylolisthesis, lumbar region Spondylosis of lumbar region without myelopathy or radiculopathy Abdominal pain, chronic, generalized Gastroparesis Spontaneous pneumothorax Chronic pain syndrome Cervicalgia Low back pain Behcet's disease Surgical History History of hernia surgery Family History Father Hairy cell leukemia Social History Household Members: Children Household Members Other:: son [facility] Do you presently have visiting nurse or other home services: No Unable to assess alcohol history related to: Unknown Alcohol intake: never Patient Tobacco Use Status: Never used Tobacco Second Hand Smoke Exposure: No Advance Directives Date on File: 04/22/23 service: No Current occupational status: unemployed Review of Systems Const All systems reviewed & are unremarkable except as noted in HPI and below Physical Exam Vital Signs: Last Vital Signs Pulse 88 06/21/24 09:34 BP 120/67 06/21/24 09:34 BMI result Body Mass Index 27.4 Const General: cooperative, no acute distress and alert Orientation/consciousness: patient oriented x3 HEENT Head: Yes normocephalic and Yes atraumatic Ears: hearing grossly normal bilaterally Eyes General: appearance normal, both eyes and all related structures Alignment and Position: alignment normal and position normal Periorbital: periorbital findings normal Eyelids: Yes eyelids normal Pupils: Equal, round and reactive pupils present, pupils equal and not dilated EOM: EOMs intact bilaterally Direct Ophthalmoscopy: no photophobia Neck Neck: Yes normal visual inspection and Yes no JVD Resp Effort & Inspection: normal respiratory effort, able to speak in complete sentences and no audible wheezes Cardio Jugular venous distension: no JVD GI Inspection: Yes incision and Yes scar Back/Spine/Pelvis Cervical Spine: normal cervical lordosis Thoracic/Lumbar Spine: thoracic and lumbar spine normal to inspection Neuro General: patient oriented x3, gait normal and moves all extremities Cranial nerves: Yes Equal, round and reactive pupils present Assessment & Plan Assessment & Plan (1) Cervicalgia: Code(s): M54.2 - Cervicalgia Category: Medical Plan: (2) Behcet's disease: Code(s): M35.2 - Behcet's disease Category: Medical Plan: (3) Low back pain: Code(s): M54.5 - Low back pain Category: Medical (4) Chronic abdominal pain: Code(s): R10.9 - Unspecified abdominal pain; G89.29 - Other chronic pain Category: Medical Plan: Brooklyn is here the for the follow-up and pain medication refill. Pill count is as above. I will refill her hydromorphone 2 mg id on 07/13/2024. Next appointment and we will see her for the pump refill. Plan Next appointment will be for the pill count and pump refill. Medications: Refilled hydromorphone Partial fill per patient's request only 4 mg PO BID PRN 60 tabs 0RF severe pain (scale score 7-10) 30 days F11.90 - Opioid use, unspecified, uncomplicated, G89.29 - Other chronic pain, G89.4 - Chronic pain syndrome, R10.9 - Unspecified abdominal pain Coding Level of Care Code Est Pt Level 3 (36486) Diagnoses Cervicalgia M54.2 Behcet's disease M35.2 Low back pain M54.5 Chronic abdominal pain R10.9; G89.29
[2024-06-21 09:34] VITALS: BP 120/67; PULSE 88; BMI 27.4
--- OUTSIDE RECORDS SUMMARY | 2024-06-21 12:32 | XMS_ITS | Patient Health Record ---
Author Organization [facility] Address [address] [place] [address] Care Team Providers Care Hopper Filler Name Role Phone Octavio Uriarte Primary Care Provider Reason For Referral No Information Plan Of Treatment No Information Insurance Providers Payer Name Payer Address Payer Phone Subscriber Number Group Number Insured Name Patient Relationship to Insured Coverage Start Date Coverage End Date [place] [address] [place] [address] [id number] Brooklyn Chavez Self - patient is the insured
== END 2024-06-21 10:30 | disposition home or self-care (01) ==
PROVIDERS: PCP Internal Medicine; Visit Provider Anesthesiology
DX: G89.29 Other chronic pain (principal); M54.2 Cervicalgia; M35.2 Behcet's disease; M54.50 Low back pain, unspecified; R10.9 Unspecified abdominal pain
CPT/HCPCS: 99213

== ENCOUNTER → 2024-06-21 09:24 | Outpatient (BNVA) | payer MEDICARE, MEDICAID, SELFPAY | PROVIDERS: PCP Internal Medicine; Visit Provider Anesthesiology | DX: M54.2 Cervicalgia (principal); M35.2 Behcet's disease; M54.50 Low back pain, unspecified; R10.9 Unspecified abdominal pain; F11.90 Opioid use, unspecified, uncomplicated; G89.4 Chronic pain syndrome; Z51.81 Encounter for therapeutic drug level monitoring | CPT/HCPCS: 99212 ==

== ENCOUNTER 2024-07-23 09:22 | Outpatient (AMB) | payer MEDICARE, MEDICAID, SELFPAY ==
--- NOTE | 2024-07-23 09:30 | MHC.OFFVIS ---
Vital Signs 07/23/24 09:43 Height 5 ft Weight 146 lb 6 oz BMI 28.6 BP 120/53 L Blood Pressure Location Rt brachial Position Sitting Pulse 71 Pulse Source Pulse Oximeter Pulse Oximetry (%) 97 Oxygen Delivery Method Room Air Intake Visit Reasons: ITDD Refill/Pill Count Intake Note: Brooklyn comes in today for ap ill count to hydromorphone, patient should have 42 tablets and presents with 41 tablets which she last took today 07/23/24 at 7:30am. 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 Present Accompanied by: Self / Same As Patient Allergies ciprofloxacin [Cipro] Allergy (Unknown, Verified 07/23/24 09:44) Hives levofloxacin [Levaquin] Allergy (Unknown, Verified 07/23/24 09:44) Hives metoclopramide [Reglan] Allergy (Unknown, Verified 07/23/24 09:44) Hives ondansetron [Zofran] Allergy (Unknown, Verified 07/23/24 09:44) Itching penicillin V Allergy (Unknown, Verified 07/23/24 09:44) Hives prochlorperazine [From Compazine] Allergy (Unknown, Verified 07/23/24 09:44) Shortness of Breath Sulfa (Sulfonamide Antibiotics) Allergy (Unknown, Verified 07/23/24 09:44) Hives thalidomide [From Thalomid] Allergy (Unknown, Verified 07/23/24 09:44) Rash haloperidol [From Haldol] Allergy (Verified 07/23/24 09:44) Itching HPI Comments Details: Brooklyn in the office today for the follow-up , pain medication refill and refill of the intrathecal pain pump. She presented today herself with 41 pills in her possession. She supposed to have 4 2pills in her possession. We discussed again that she supposed to take her oral opioid medications only when her pain is most severe. She reports adequate pain control of the abdominal pain with pain pump however her lower back pain continues to bother her. Today she denies side effects from the pain pump applications of the PTM doses. She also denies side effects of the oral opioid medications she denies constipation. Prior: Brooklyn is 41 years old female who is suffering from multiple medical conditions including Bencet disease, Crohn's disease, she is immunocompromised.? Her pain involves chronic abdominal pain in lower back pain.? She also has a chronic pelvic pain.? She was under might exacerbation on chronic oral opioid therapy for 3 years.? She was approved by psychological evaluation in the past for the neuromodulation.. [facility] Medical History Pulmonary emboli Crohn's disease Chronic, continuous use of opioids Immunosuppression Absence seizure disorder DVT (deep venous thrombosis) Pyloric stenosis Asthma Common variable immunodeficiency Spondylolisthesis, lumbar region Spondylosis of lumbar region without myelopathy or radiculopathy Abdominal pain, chronic, generalized Gastroparesis Spontaneous pneumothorax Chronic pain syndrome Cervicalgia Low back pain Behcet's disease Surgical History History of hernia surgery Family History Father Hairy cell leukemia Social History Household Members: Children Household Members Other:: son [facility] Do you presently have visiting nurse or other home services: No Unable to assess alcohol history related to: Unknown Alcohol intake: never Patient Tobacco Use Status: Never used Tobacco Second Hand Smoke Exposure: No Advance Directives Date on File: 04/22/23 service: No Current occupational status: unemployed Review of Systems Const All systems reviewed & are unremarkable except as noted in HPI and below Physical Exam Vital Signs: Last Vital Signs Pulse 71 07/23/24 09:43 BP 120/53 L 07/23/24 09:43 Pulse Ox 97 07/23/24 09:43 Oxygen Delivery Method Room Air 07/23/24 09:43 BMI result Body Mass Index 28.6 Const General: cooperative, no acute distress and alert Orientation/consciousness: patient oriented x3 HEENT Head: Yes normocephalic and Yes atraumatic Ears: hearing grossly normal bilaterally Eyes General: appearance normal, both eyes and all related structures Alignment and Position: alignment normal and position normal Periorbital: periorbital findings normal Eyelids: Yes eyelids normal Pupils: Equal, round and reactive pupils present, pupils equal and not dilated EOM: EOMs intact bilaterally Direct Ophthalmoscopy: no photophobia Neck Neck: Yes normal visual inspection and Yes no JVD Resp Effort & Inspection: normal respiratory effort, able to speak in complete sentences and no audible wheezes Cardio Jugular venous distension: no JVD GI Inspection: Yes incision and Yes scar Back/Spine/Pelvis Cervical Spine: normal cervical lordosis Thoracic/Lumbar Spine: thoracic and lumbar spine normal to inspection Neuro General: patient oriented x3, gait normal and moves all extremities Cranial nerves: Yes Equal, round and reactive pupils present Assessment & Plan Assessment & Plan (1) Cervicalgia: Code(s): M54.2 - Cervicalgia Category: Medical Plan: (2) Behcet's disease: Code(s): M35.2 - Behcet's disease Category: Medical Plan: (3) Low back pain: Code(s): M54.5 - Low back pain Category: Medical (4) Chronic abdominal pain: Code(s): R10.9 - Unspecified abdominal pain; G89.29 - Other chronic pain Category: Medical Plan: ? Intrathecal pump refill. The patient came today in the office for the change of the medication in the pain pump. The name and date of were verified and informed consent was obtained for the procedure. The pump was interrogated and the residual amount of fluid was found to be 12.3 mL. SHE WAS POSITIONED prone on the bed AND THE AREA OF THE INTRATHECAL PUMP WAS PREPPED WITH CHLORAPREP. The fenestrated drape was sterilely applied over the area of the pump. Sterile gloves were worn and of the aspiration system was assembled containing 2 in 22 gauge noncoring needle, the needle was connected to extension tubing which was connected to the 20 cc sterile syringe. The pain pump was palpated under the skin in the patient's left buttock area. The needle was inserted through the skin and the central plug of the pain pump and fluid was aspirated. The clear fluid was going into the syringe the total amount of the fluid was 12.4 mL .. After that a new batch? of medication was obtained which was containing bupivacaine in the concentration of 28 milligrams/mL.. The admixture was made in 20 cc syringe prepared by [facility] compounding pharmacy. The syringe was connected to the bacterial filter, and then connected to the extension tubing. After that the medication in the syringe was slowly instilled into the pump with aspirations at 15 and 5 cc joiner.? The pump was reprogrammed continuous dose of 1.4 mg a day as well as for possible administrations per day of bupivacaine 1.699 mg every 4 hours 4 times a day with the length of the time of the administration of each PTM dose at 59 minutes... (5) Postdural puncture headache: Code(s): G97.1 - Other reaction to spinal and lumbar puncture Category: Medical Plan Pill count is correct today, the patient reports no side effects or complications of the hydromorphone opioid medications. She reports adequate pain control with her medications intrathecal bupivacaine as well as oral opioids. Hydromorphone will be refilled on 08/12/2024 Next appointment for pill count will be scheduled in 1 month. Her last Narcan was issued on January of 2024 Next appointment for the pump refill will be scheduled i from now. The pill count next time will be scheduled in 1 month. Medications: Refilled hydromorphone Partial fill per patient's request only 4 mg PO BID 30 days PRN 60 tabs 0RF severe pain (scale score 7-10) F11.90 - Opioid use, unspecified, uncomplicated, G89.29 - Other chronic pain, G89.4 - Chronic pain syndrome, R10.9 - Unspecified abdominal pain Coding Level of Care Code Est Pt Level 3 (33809) Procedure Only Diagnoses Cervicalgia M54.2 Behcet's disease M35.2 Low back pain M54.5 Chronic abdominal pain R10.9; G89.29 Postdural puncture headache G97.1
[2024-07-23 09:43] VITALS: BP 120/53; PULSE 71; O2SAT 97; BMI 28.6
--- OUTSIDE RECORDS SUMMARY | 2024-07-23 10:12 | XMS_ITS | Patient Health Record ---
Author Organization [facility] Address [address] [place] [address] Care Team Providers Care Tobacco Stemmer Name Role Phone Octavio Uriarte Primary Care Provider [phone] Reason For Referral No Information Plan Of Treatment No Information Insurance Providers Payer Name Payer Address Payer Phone Subscriber Number Group Number Insured Name Patient Relationship to Insured Coverage Start Date Coverage End Date [place] Medicaid [address] [place] [address] [id number] Brooklyn Chavez Self - patient is the insured
== END 2024-07-23 09:46 | disposition home or self-care (01) ==
PROVIDERS: PCP Internal Medicine; Visit Provider Anesthesiology
DX: M54.2 Cervicalgia (principal); M35.2 Behcet's disease; M54.50 Low back pain, unspecified; R10.9 Unspecified abdominal pain; Z45.1 Encounter for adjustment and management of infusion pump; G89.29 Other chronic pain; G97.1 Other reaction to spinal and lumbar puncture
CPT/HCPCS: 62370; 99213

== ENCOUNTER → 2024-07-23 09:22 | Outpatient (BNVA) | payer MEDICARE, MEDICAID, SELFPAY | PROVIDERS: PCP Internal Medicine; Visit Provider Anesthesiology | DX: Z51.81 Encounter for therapeutic drug level monitoring (principal); Z45.89 Encounter for adjustment and management of other implanted devices; F11.20 Opioid dependence, uncomplicated; M54.2 Cervicalgia; M35.2 Behcet's disease; M54.50 Low back pain, unspecified; R10.9 Unspecified abdominal pain; G97.1 Other reaction to spinal and lumbar puncture; G89.29 Other chronic pain | CPT/HCPCS: 62370; 99212 ==

== ENCOUNTER 2024-08-06 08:30 | Outpatient (AMB) | payer MEDICARE, MEDICAID, SELFPAY ==
[2024-08-06 08:38] VITALS: BP 110/55; PULSE 77; RESP 161; O2SAT 97; BMI 27.5
--- NOTE | 2024-08-06 08:38 | MHC.OFFVIS ---
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 Required: No Allergies ciprofloxacin [Cipro] Allergy (Unknown, Verified 08/06/24 08:39) Hives levofloxacin [Levaquin] Allergy (Unknown, Verified 08/06/24 08:39) Hives metoclopramide [Reglan] Allergy (Unknown, Verified 08/06/24 08:39) Hives ondansetron [Zofran] Allergy (Unknown, Verified 08/06/24 08:39) Itching penicillin V Allergy (Unknown, Verified 08/06/24 08:39) Hives prochlorperazine [From Compazine] Allergy (Unknown, Verified 08/06/24 08:39) Shortness of Breath Sulfa (Sulfonamide Antibiotics) Allergy (Unknown, Verified 08/06/24 08:39) Hives thalidomide [From Thalomid] Allergy (Unknown, Verified 08/06/24 08:39) Rash haloperidol [From Haldol] Allergy (Verified 08/06/24 08:39) Itching Medication List - Last Reconciled 08/06/24 by Shirley Shahid LPN albuterol sulfate 90 mcg/actuation 2 puffs inhalation Q4-6H PRN apixaban (Eliquis) 5 mg PO BID diphenhydramine HCl 25 mg IV QID PRN fluticasone furoate-vilanterol 200-25 mcg/dose (Breo Ellipta) 1 inh inhalation Q24H hydromorphone 4 mg PO BID PRN 30 days naloxone 4 mg/actuation (Narcan) 4 mg intranasal Q2M PRN ondansetron HCl (PF) 4 mg IV QID PRN promethazine 25 mg PO QID PRN umeclidinium 62.5 mcg/actuation (Incruse Ellipta) 1 inh inhalation DAILY HPI Comments Details: Brooklyn in the office to have any examination of her lumbar spine. See the exam as below. 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 She reports that her pain in the back became intractable. She reports her pain today 01/30, she reports that pain becomes worse with weather changes and called exposure. I am going to diagnose her with intractable lower back pain, I will try to treat this pain with sprint PNS. I personally discussed the situation of this patient with her vascular surgeon. She has TPN port which is inserted in vena cava inferior. This port is radio opaque and we will be able to be visualized on the fluoroscopy. However the intrathecal catheter from her pain pump needs to be also visualized by injecting Isovue-M contrast into it before approaching the left-sided sprint positioned. (her pump is on the left). Prior: Brooklyn is 41 years old female who is suffering from multiple medical conditions including Bencet disease, Crohn's disease, she is immunocompromised.? Her pain involves chronic abdominal pain and lower back pain.? She also has a chronic pelvic pain.? She is on chronic oral opioid therapy for 3 years.? [facility] Medical History Pulmonary emboli Crohn's disease Chronic, continuous use of opioids Immunosuppression Absence seizure disorder DVT (deep venous thrombosis) Pyloric stenosis Asthma Common variable immunodeficiency Spondylolisthesis, lumbar region Spondylosis of lumbar region without myelopathy or radiculopathy Abdominal pain, chronic, generalized Gastroparesis Spontaneous pneumothorax Chronic pain syndrome Cervicalgia Low back pain Behcet's disease Surgical History History of hernia surgery Family History Father Hairy cell leukemia Social History Household Members: Children Household Members Other:: son Housing: Condominium Do you presently have visiting nurse or other home services: No Unable to assess alcohol history related to: Unknown Alcohol intake: never Patient Tobacco Use Status: Never used Tobacco Second Hand Smoke Exposure: No Advance Directives Date on File: 04/22/23 service: No Current occupational status: unemployed Review of Systems Const All systems reviewed & are unremarkable except as noted in HPI and below Physical Exam Vital Signs: Last Vital Signs Pulse 77 08/06/24 08:38 Resp 161 H 08/06/24 08:38 BP 110/55 L 08/06/24 08:38 Pulse Ox 97 08/06/24 08:38 Oxygen Delivery Method Room Air 08/06/24 08:38 BMI result Body Mass Index 27.5 Const General: cooperative, no acute distress and alert Orientation/consciousness: patient oriented x3 HEENT Head: Yes normocephalic and Yes atraumatic Ears: hearing grossly normal bilaterally Eyes General: appearance normal, both eyes and all related structures Alignment and Position: alignment normal and position normal Periorbital: periorbital findings normal Eyelids: Yes eyelids normal Pupils: Equal, round and reactive pupils present, pupils equal and not dilated EOM: EOMs intact bilaterally Direct Ophthalmoscopy: no photophobia Neck Neck: Yes normal visual inspection and Yes no JVD Resp Effort & Inspection: normal respiratory effort, able to speak in complete sentences and no audible wheezes Cardio Jugular venous distension: no JVD GI Inspection: Yes incision and Yes scar Back/Spine/Pelvis Other: Tenderness on palpation in projection of the paraspinal spinal region L3-L4-L5 area. Test is positive bilaterally. Misael test is equivocal and pelvic compression test is negative. Cervical Spine: normal cervical lordosis Thoracic/Lumbar Spine: thoracic and lumbar spine normal to inspection Neuro General: patient oriented x3, gait normal and moves all extremities Cranial nerves: Yes Equal, round and reactive pupils present Assessment & Plan Assessment & Plan (1) Cervicalgia: Code(s): M54.2 - Cervicalgia Category: Medical Plan: (2) Behcet's disease: Code(s): M35.2 - Behcet's disease Category: Medical Plan: (3) Low back pain: Code(s): M54.5 - Low back pain Category: Medical (4) Chronic abdominal pain: Code(s): R10.9 - Unspecified abdominal pain; G89.29 - Other chronic pain Category: Medical (5) Intractable low back pain: Code(s): M54.59 - Other low back pain Category: Medical Plan For intractable low back pain I will schedule this patient for sprint PNS L4 possible L5 1st on the right and after that on the left. For the right sided procedure patient does not need any additional visualization, however for left-sided procedure she needs to have a dye study her intrathecal pain pump. Patient Instructions: I here by testify that I spent 35 minutes in conversation with this patient as well as planning her care discussing her case with vascular surgery colleagues and organizing this note. Coding Level of Care Code Est Pt Level 4 (91361) Diagnoses Cervicalgia M54.2 Behcet's disease M35.2 Low back pain M54.5 Chronic abdominal pain R10.9; G89.29 Intractable low back pain M54.59
--- OUTSIDE RECORDS SUMMARY | 2024-08-06 08:52 | XMS_ITS | Patient Health Record ---
Author Organization [facility] Address [address] [place] [address] Care Team Providers Care Ovens Supervisor Name Role Phone Octavio Uriarte Primary Care Provider [phone] Reason For Referral No Information Plan Of Treatment No Information Insurance Providers Payer Name Payer Address Payer Phone Subscriber Number Group Number Insured Name Patient Relationship to Insured Coverage Start Date Coverage End Date [place] [address] [place] [address] [id number] Brooklyn Chavez Self - patient is the insured
== END 2024-08-06 08:56 | disposition home or self-care (01) ==
LOC: HO.PMC 08:30
PROVIDERS: PCP Internal Medicine; Visit Provider Anesthesiology
DX: M54.2 Cervicalgia (principal); M35.2 Behcet's disease; M54.50 Low back pain, unspecified; R10.9 Unspecified abdominal pain; G89.29 Other chronic pain; M54.59 Other low back pain
CPT/HCPCS: 99214

== ENCOUNTER → 2024-08-06 08:30 | Outpatient (BNVA) | payer MEDICARE, MEDICAID, SELFPAY | PROVIDERS: PCP Internal Medicine; Visit Provider Anesthesiology | DX: M54.50 Low back pain, unspecified (principal); M35.2 Behcet's disease; M54.2 Cervicalgia; R10.9 Unspecified abdominal pain; G89.29 Other chronic pain; M54.59 Other low back pain | CPT/HCPCS: 99212 ==

== ENCOUNTER 2024-08-19 21:28 | Inpatient (IN) | payer MEDICARE, MEDICAID, SELFPAY ==
--- NOTE | 2024-08-19 | ECG_ITS ---
Test Reason : ABD PAIN Blood Pressure : */* mmHG Vent. Rate : 75 BPM Atrial Rate : 75 BPM P-R Int : 138 ms QRS Dur : 72 ms QT Int : 396 ms P-R-T Axes : 58 22 43 degrees QTcB Int : 442 ms Normal sinus rhythm Possible Left atrial enlargement Borderline ECG When compared with ECG of 10-Sep-2023 19:26, No significant changes seen Referred By: Generic ED Physician Electronically Signed By: GABRIELE LEDEZMA
--- NOTE | ~2024-08-19 | CT_ITS ---
CLINICAL HISTORY: Follow-up right empyema. CT chest with contrast Comparison: CT/SR - CT CHEST WO IV CON - 08/29/24 10:18 EDT Findings: The heart size is normal. The visualized thyroid and mediastinum are unremarkable. Prominent supraclavicular lymph nodes are probably reactive. Prominent collaterals of the chest wall. The SVC is not opacified. Stable small right pleural effusion. There is opacity of the bilateral lung base. The upper abdomen is unremarkable. No acute fractures. IMPRESSION: Stable small right pleural effusion. Atelectasis/pneumonia of the bilateral lung base. Evidence of SVC syndrome. This document has been electronically signed by: Ramesh Wilson MD on 09/02/2024 18:41:30
--- NOTE | ~2024-08-19 | CT_ITS ---
EXAMINATION: CT ABDOMEN AND PELVIS WITHOUT CONTRAST CLINICAL INFORMATION: Abdominal pain and fever. COMPARISON: 08/20/2024, 08/24/2023, numerous exams dating back to 04/10/2020. TECHNIQUE: Multidetector volumetric imaging was performed from the superior aspect of the liver through the pubic symphysis. Sagittal and coronal reformatted images were obtained on the technologist's workstation. This CT examination was performed using dose optimization techniques as appropriate, variously including the following: *Automated exposure control *Adjustment of mA and/or kV according to patient size (this includes techniques or standardized protocols for targeted exams where dose is matched to indication/reason for exam; i.e. extremities or head) *Use of iterative reconstruction technique FINDINGS: Study limited without the benefit of IV contrast. There is a right translumbar port in place with distal aspect extending into the right atrium, tip not included on the exam. LUNG BASES: Subtle groundglass opacities in the medial right lower lobe, new. There are unchanged mildly hyperdense left pleural nodules consistent with prior talc pleurodesis. There is unchanged mild linear subsegmental bibasilar atelectasis/scarring. There is unchanged mild right pleural thickening. Heart size normal. No pericardial effusion. Probable tiny type I hiatus hernia at the GE junction. LIVER, GALLBLADDER, AND BILIARY TREE: The unenhanced liver is normal in size, shape, and attenuation. No focal hepatic lesion or biliary ductal dilatation is present. The gallbladder is unremarkable with no evidence of radiopaque gallstones, gallbladder wall thickening, or obvious pericholecystic inflammatory changes. PANCREAS: Unremarkable. SPLEEN: Unremarkable. ADRENAL GLANDS: Unremarkable. KIDNEYS AND URETERS: The kidneys are normal in size, shape, and attenuation. No hydronephrosis, hydroureter, or calculi seen. No perinephric stranding. BLADDER: Unremarkable. GASTROINTESTINAL TRACT: The stomach, duodenum, and small bowel have a normal appearance. The appendix appears normal. Minimal wall thickening of the cecum and ascending colon, and proximal transverse colon, possibly underdistention although colitis is a consideration. No rectal abnormality. ABDOMINAL WALL: There is an intrathecal pump in the left upper buttock/lower flank with catheter extending into the thoracic spinal canal and out of the field of view. There are unchanged small periumbilical hernias. There has been left spigelian hernia repair with mesh. LYMPH NODES: Normal. VASCULAR: Unremarkable. PELVIC VISCERA: No acute findings. No adnexal masses. Possible supracervical hysterectomy versus uterine atrophy. OSSEOUS STRUCTURES: No suspicious lytic or blastic bone lesions. Mild degenerative changes since levoconvex lumbar scoliosis. CT/CT abdomen pelvis wo IV con IMPRESSION: 1. Minimal patchy opacity in the medial right lower lobe, possible subtle pneumonia. This is new from the most recent CT. 2. Minimal wall thickening of the ascending and proximal transverse colon, possibly underdistention although mild colitis is a differential possibility. 3. Otherwise, no acute findings in the abdomen or pelvis. 4. Stable ancillary findings as discussed in the body of the report. Electronically signed by: Hay Patten MD 08/23/2024 01:22 PM EDT
--- NOTE | ~2024-08-19 | CT_ITS ---
EXAMINATION: CT CHEST WITHOUT CONTRAST CLINICAL INFORMATION: Follow-up pneumonia. COMPARISON: August 27, 2024. TECHNIQUE: Multidetector volumetric CT imaging of the chest was done. Axial MIP volume rendering provided. Sagittal and coronal reformatted images were obtained. This CT examination was performed using dose optimization techniques as appropriate, variously including the following: *Automated exposure control *Adjustment of mA and/or kV according to patient size (this includes techniques or standardized protocols for targeted exams where dose is matched to indication/reason for exam; i.e. extremities or head) *Use of iterative reconstruction technique. DLP: 122 mGy centimeter. FINDINGS: FOOD SERVICE ASSOCIATE: Low lung volume. Widening upper Mediastinum. LUNGS: Multifocal patchy confluent attenuation center and pulmonary round glass with peribronchial septal thickening and interlobular septal thickening. Peribronchial ground seen in the right lower lung lobe and to a lesser extent the peripheral right middle lung lobe. No bronchiectasis. Honeycombing. MEDIASTINUM: Lymphadenopathy and edema pattern, mediastinum and to a lesser extent pulmonary martinez. Trace of pericardial effusion. No aneurysm, thoracic aorta. Calcified plaques in the thoracic aorta wall. Volume loss of the superior vena cava with dystrophic calcifications. Prominent vessels in the superior aspect of the mediastinum and into the fat planes of the anterior chest wall, likely collateral vessels. Central venous line catheter ending in the right atrium via inferior vena cava. CORONARY ARTERY CALCIFICATION: None visualized on this study. PLEURA: Bilateral pleural effusions, right greater than left with thickening of the parietal linear with the hyperdensity/calcifications in the left pleura compartment. No pneumothorax. Perfusion in the right minor fissure.. AXILLA: Prominent lymph nodes, axillary. UPPER ABDOMEN: Spleen is enlarged. Liver appears enlarged. I do not see the right kidney. OSSEOUS STRUCTURES: Mild dextroconvex curvature of the thoracic spine. Multilevel spondylosis, mild. No acute fracture or listhesis in the axial skeleton. There is a central spinal canal/dorsal thecal sac catheter ending at T6-7 level. There is a radiopaque metallic device in the posterior fat planes of the right lower hemithorax.. CT/CT chest wo IV con IMPRESSION: Acute on chronic airspace disease with the questionable right-sided empyema. A lymphoproliferative disorder cannot be excluded. Superior vena cava syndrome, old/chronic should be considered. Calcified pleural plaques, left hemithorax. Prior inflammatory versus infectious versus trauma. Mesothelioma seems less likely. Overall no gross change.. Fleischner guidelines were followed. Electronically signed by: Masoud Dempsey MD 08/29/2024 11:18 AM EDT
--- NOTE | ~2024-08-19 | XR_ITS ---
EXAMINATION: XR CHEST CLINICAL INFORMATION: pneumonia COMPARISON: CT chest 09/02/2024. TECHNIQUE: Frontal view of the chest was obtained. FINDINGS: The lungs are hypoexpanded with patchy density seen in the right midlung likely atelectasis. Mild atelectatic changes in left lung base. Heart size is enlarged. Pulmonary vascularity is normal. No gross bony abnormality seen. No gross bony abnormality seen. XR/XR chest 1V IMPRESSION: Bandlike atelectasis right middle lobe with chronic scarring left lung base. Electronically signed by: New Giraldo MD 09/04/2024 09:43 AM EDT RP
--- NOTE | ~2024-08-19 | CT_ITS ---
EXAMINATION: CT CHEST WITHOUT CONTRAST CLINICAL INFORMATION: Worsening shortness of breath. COMPARISON: 08/23/2024. TECHNIQUE: Multidetector volumetric CT imaging of the chest was done. Axial MIP volume rendering provided. Sagittal and coronal reformatted images were obtained. This CT examination was performed using dose optimization techniques as appropriate, variously including the following: *Automated exposure control *Adjustment of mA and/or kV according to patient size (this includes techniques or standardized protocols for targeted exams where dose is matched to indication/reason for exam; i.e. extremities or head) *Use of iterative reconstruction technique FINDINGS: LUNGS: Since the prior exam, development of dense consolidation in the right lower lobe consistent with pneumonia. Patchy opacity in the anterior right middle lobe, also suspicious for infectious and/or inflammatory process. Small layering pleural effusion on the right, with mild increased associated pleural thickening, new from the prior exam suggesting possible developing empyema. Loculated component in the major fissure. There is proximal peribronchial vascular interstitial thickening. This is of unknown etiology or significance. Pleural thickening throughout the left hemithorax with calcification, unchanged. Mild superimposed smooth interlobular septal thickening of both lungs suggesting mild interstitial edema. MEDIASTINUM: Inferior approach Port-A-Cath tip in the right atrium. SVC stenosis with linear calcification again noted, with abundant collaterals, and numerous mediastinal small collateral vessels with mediastinal edema. Heart size is normal. Aorta is normal in caliber and course. Main pulmonary artery is normal. No pericardial effusion. No adenopathy or mass in the mediastinum. CORONARY ARTERY CALCIFICATION: None visualized on this study. AXILLA/CHEST WALL: No lymphadenopathy. Abundant venous collaterals noted from SVC stenosis. Port-A-Cath in the right flank region. Lumbar approach. UPPER ABDOMEN: Unremarkable. OSSEOUS STRUCTURES: No suspicious lytic or blastic bone lesions. CT/CT chest wo IV con IMPRESSION: 1. Much more confluent right lower lobe pneumonia, extending into the right middle lobe, with small parapneumonic effusion present. Loculation present suggesting possible empyema. Cannot assess further without contrast. 2. There is likely superimposed mild pulmonary edema involving both lungs. 3. There are chronic calcified pleural plaques bilaterally, unchanged. 4. There are sequela of chronic SVC stenosis again noted. 5. There is a inferior approach Port-A-Cath in place. Tip is in the right atrium. Electronically signed by: Hay Patten MD 08/27/2024 11:58 AM EDT
--- NOTE | ~2024-08-19 | CT_ITS ---
CLINICAL HISTORY: pain, need PO contrast CT abdomen and pelvis without contrast Comparison: CT/REG - CT ABDOMEN PELVIS W IV CON - 08/24/23 02:38 EDT Findings: There are unchanged mildly hyperdense left pleural nodules consistent with prior talc pleurodesis. There is unchanged mild subsegmental bibasilar atelectasis/scarring. Is unchanged mild right pleural thickening. The liver, gallbladder, pancreas, spleen, adrenal glands, and kidneys are unremarkable. There may be mild wall thickening of the transverse colon versus under distention. The remainder of the gastrointestinal tract is unremarkable. There is no free fluid or free air. The uterus is either atrophic or the patient is status post supracervical hysterectomy. There are no enlarged lymph nodes. There is an unchanged shallow wide neck ventral abdominal hernia containing only fat. The aorta is normal in diameter. There is a translumbar port catheter with tip extending into the right atrium and out of the field of view. Port reservoir is in the right posterolateral chest wall/upper abdominal wall. There is an intrathecal pump in the left upper buttock/lower flank with catheter extending into the thoracic spinal canal and out of the field of view. There is no fracture or suspicious lytic or sclerotic lesion. IMPRESSION: 1. Possible mild wall thickening of the transverse colon versus under distention. Correlate for colitis. 2. Stable chronic findings as above. This document has been electronically signed by: Josh Seth MD on 08/20/2024 03:33:55
--- NOTE | ~2024-08-19 | CT_ITS ---
EXAMINATION: CT CHEST WITHOUT IV CONTRAST INDICATION: fever ? pneumonia COMPARISON: Passing is made with the prior examination dated 07/12/2023. TECHNIQUE: Helical CT scan of the chest was performed without intravenous contrast. Coronal and sagittal reformatted images were generated and reviewed. This CT exam was performed with one or more of the following dose reduction techniques: automated exposure control, adjustment of the mA and/or kV according to patient size, use of iterative reconstruction technique. DLP: 105 mGy-cm CHEST: THYROID: The thyroid is unremarkable. LUNGS: Again seen is scarring in both lungs. There is faint patchy groundglass and airspace opacity in the right lower lobe, suspicious for early pneumonia. MEDIASTINUM: There is no mediastinal lymphadenopathy. There are numerous chest wall collateral vessels as well as numerous small vessels in the mediastinum. The SVC is not well visualized. The constellation of findings is suspicious for chronic SVC obstruction. SOUTH: Evaluation of the hilar regions is limited by lack of intravenous contrast material. CARDIOVASCULATURE: The heart is normal in size. There is no pericardial effusion. The thoracic aorta is normal in caliber. DEGREE OF CORONARY CALCIFICATION: none PLEURA: There is a trace right pleural effusion. There is extensive left pleural calcification as seen previously. No pneumothorax. MAIN AIRWAYS: The mainstem bronchi and proximal branches are patent. AXILLA: There is no axillary lymphadenopathy. BONES: There is degenerative disc disease of the spine. UPPER ABDOMEN: The visualized portion of the liver has an unremarkable unenhanced appearance. The spleen is enlarged. A portion of the catheter is seen in the IVC. CT/CT chest wo IV con IMPRESSION: 1. Patchy groundglass airspace opacity in the right lower lobe, suspicious for early pneumonia. 2. Findings compatible with chronic SVC obstruction as described. A portion of an IVC catheter is noted. 3. Trace right pleural effusion. Extensive left pleural calcification. 4. Splenomegaly. Electronically signed by: Mohan Mckenna MD 08/23/2024 03:27 PM EDT
[2024-08-19 21:37] VITALS: BP 124/64; PULSE 63; RESP 24; TEMP 36.9; O2SAT 96
[2024-08-19 21:49] VITALS: BP 120/77; BMI 26.9
[2024-08-19] MEDS: ondansetron HCL 4 MG/2 ML VIAL IVPUSH (22:03)
[2024-08-19] MEDS: diphenhydrAMINE HCL 50 MG/ML VIAL IVPUSH (22:03)
[2024-08-19 22:39] LABS: MANUAL DIFF FLAG NO
[2024-08-19 22:40] LABS: Basophils Absolute Auto 0.1 X10*3/uL (0.0-0.2); Basophils Percent Auto 0.3 % (0-2); Eosinophils Percent Auto 0.3 % (0-4); Hematocrit 39.6 % (37.0-47.0); Hemoglobin 13.7 g/dl (12.0-16.0); Imm Gran Abs Auto 0.05 X10*3/uL (0.00-0.03); Imm Gran Pct Auto 0.3 % (0.0-0.4); Lymphocytes Absolute Auto 1.1 X10*3/uL (1.2-4.9); Lymphocytes Percent Auto 7.7 % (20-40); Mean Corpuscular HGB Conc 34.6 g/dl (31.0-35.0); Mean Corpuscular Hemoglobin 29.7 pg (27.0-33.0); Mean Corpuscular Volume 85.7 fL (80.0-98.0); Mean Platelet Volume 9.7 fL (9.4-12.3); Monocytes Absolute Auto 0.2 X10*3/uL (0.1-1.2); Monocytes Percent Auto 1.6 % (2-11); Neutrophils Absolute Auto 13.3 x10*3/uL (2.0-8.3); Neutrophils Percent Auto 89.8 % (45-73); Platelet Count 219 X10*3/uL (160-400); Red Blood Count 4.62 X10*6/uL (4.20-5.50); Red Cell Distribution Width 12.5 % (11.0-16.0); White Blood Count 14.8 X10*3/uL (4.8-10.8)
[2024-08-19 22:53] LABS: Alanine Aminotransferase 16 U/L (0-31); Albumin Level 4.3 g/dL (3.5-5.0); Alkaline Phosphatase 70 U/L (39-117); Anion Gap 13 (12-20); Aspartate Amino Transferase 23 U/L (5-31); Bilirubin Total 0.3 mg/dL (0.0-1.0); Blood Urea Nitrogen 22 mg/dL (9-16); Calcium 9.2 mg/dL (8.4-10.2); Carbon Dioxide 27 mmol/L (22-29); Chloride 104 mmol/L (96-108); Creatinine Clr Calc Pharmacy 80.7; Estimated Glomerular Filt Rate > 60; Glucose Random 134 mg/dL (60-115); Lipase 10 U/L (8-78); Potassium 3.7 mmol/L (3.3-5.1); Sodium 140 mmol/L (135-145)
[2024-08-19 23:03] LABS: Troponin-I High Sensitivity < 2.7 ng/L (<3.5-17.0)
--- NOTE | 2024-08-19 23:04 | PC.NURSE ---
pt biba from home, a&ox4, respirations even and unlabored. pt vomiting on arrival. pt reports n/v and abdominal pain x1 day. pt reports this past hour it got worse and she could no longer tolerate. pt reports she has port access for TPN at home. port is able to be drawn back. pt report she also is able to tolerate some po food but at this time she is throwing it up. pt administered medication per jul. per it is okay to use accessed port. pt nsr on tele. pt has hx of gastroporeisis.
[2024-08-19 23:17] LABS: Influenza A PCR NEGATIVE (Negative); Influenza B PCR NEGATIVE (Negative); Resp Syncy Virus RNA Qual PCR NEGATIVE (Negative); SARS COV2 PCR INHOUSE NEGATIVE (Negative)
--- NOTE | 2024-08-19 23:53 | ED_ITS ---
HPI - General Adult General Chief complaint: Abdominal Pain Stated complaint: abd pain Time Seen by Provider: 08/19/24 23:49 Source: patient Limitations: no limitations History of Present Illness ED Provider: Teresa Rodriguez PA-C HPI narrative: 44-year-old female with a history of chronic pain, chronic constipation secondary to chronic opiate use, prior G/J tubes secondary to gastroparesis, self report of multiple ventral hernia repairs, Behcet's disease, Crohn's disease, PE on Eliquis, absence seizure disorder presents with generalized abdominal pain that began today. Patient unable to describe the nature of her discomfort. Associated nausea /vomiting. Denies constipation, diarrhea or fever. Denies distention or inability to pass flatus. Related Data Home Medications ?Medication ?Instructions ?Recorded ?Confirmed fluticasone furoate 200 1 inh inhalation Q24H 12/12/20 08/06/24 mcg-vilanterol 25 mcg/dose inhalation powder (Breo Ellipta) umeclidinium 62.5 mcg/actuation 1 inh inhalation DAILY 12/12/20 08/06/24 blister powder for inhalation (Incruse Ellipta) diphenhydramine HCl 50 mg/mL 25 mg IV QID PRN Nausea 03/12/21 08/06/24 injection solution ondansetron HCl (PF) 4 mg/2 mL 4 mg IV QID PRN Nausea 03/12/21 08/06/24 injection solution promethazine 25 mg tablet 25 mg PO QID PRN Nausea And 08/18/21 08/06/24 Vomiting Previous Rx's ?Medication ?Instructions ?Recorded apixaban 5 mg tablet (Eliquis) 5 mg PO BID #60 tabs 02/15/23 albuterol sulfate 90 mcg/actuation 2 puff inhalation Q4-6H PRN 09/10/23 aerosol inhaler shortness of breath or wheezing #8.5 grams naloxone 4 mg/actuation nasal 4 mg intranasal Q2M PRN opioid 02/02/24 spray (Narcan) overdose #2 ea hydromorphone 4 mg tablet 4 mg PO BID PRN severe pain (scale 07/23/24 score 7-10) 30 days #60 tabs Allergies Allergy/AdvReac Type Severity Reaction Status Date / Time ciprofloxacin [Cipro] Allergy Unknown Hives Verified 08/19/24 21:52 levofloxacin [Levaquin] Allergy Unknown Hives Verified 08/19/24 21:52 metoclopramide [Reglan] Allergy Unknown Hives Verified 08/19/24 21:52 ondansetron [Zofran] Allergy Unknown Itching Verified 08/19/24 21:52 penicillin V Allergy Unknown Hives Verified 08/19/24 21:52 prochlorperazine Allergy Unknown Shortness Verified 08/19/24 21:52 [From Compazine] of Breath Sulfa (Sulfonamide Allergy Unknown Hives Verified 08/19/24 21:52 Antibiotics) thalidomide [From Thalomid] Allergy Unknown Rash Verified 08/19/24 21:52 haloperidol [From Haldol] Allergy Itching Verified 08/19/24 21:52 Review of Systems 2 Review of Systems: Yes all other systems are reviewed and are negative Constitutional: Constitutional: Denies fatigue and Denies fever(s) Cardiovascular: Cardiovascular: Denies chest pain and Denies dyspnea Respiratory: Respiratory: Denies cough and Denies dyspnea Gastrointestinal: Gastrointestinal: Reports abdominal pain, Denies constipation, Denies diarrhea, Reports nausea and Reports vomiting Endocrine: Endocrine: Denies fatigue PMF Past Medical History Attestation statement: The following information was validated with the patient. Medical History Pulmonary emboli Crohn's disease Chronic, continuous use of opioids Immunosuppression Absence seizure disorder DVT (deep venous thrombosis) Pyloric stenosis Asthma Common variable immunodeficiency Spondylolisthesis, lumbar region Spondylosis of lumbar region without myelopathy or radiculopathy Abdominal pain, chronic, generalized Gastroparesis Spontaneous pneumothorax Chronic pain syndrome Cervicalgia Low back pain Behcet's disease Surgical History History of hernia surgery Family History Family History Father Hairy cell leukemia Social History Social History Household Members: Children Household Members Other:: son Housing: Condominium Do you presently have visiting nurse or other home services: No Unable to assess alcohol history related to: Unknown Alcohol intake: never Patient Tobacco Use Status: Never used Tobacco Second Hand Smoke Exposure: No Advance Directives: Yes Advance Directives on File: Yes Advance Directives Date on File: 04/22/23 Do you have a plan to hurt others: No Plan service: No Current occupational status: unemployed Physical Exam ED Vital Signs: Vital Signs - 24 hr 08/19/24 21:37 08/20/24 00:22 08/20/24 00:26 Temperature 98.4 F 97.6 F Pulse Rate 63 81 Respiratory Rate 24 H 17 18 Blood Pressure 124/64 118/66 Pulse Oximetry 96 96 Oxygen Delivery Method Room Air Room Air 08/20/24 01:47 Temperature Pulse Rate Respiratory Rate 17 Blood Pressure Pulse Oximetry Oxygen Delivery Method BMI result Body Mass Index 26.9 Const Other: Alert, appears older than stated age, appears uncomfortable, rocking back and forth on the bed Orientation/consciousness: patient oriented x3 Resp Effort & Inspection: normal respiratory effort Cardio Other: Normal peripheral perfusion GI Other: Abdomen is soft, obese, generalized tenderness to palpation without guarding Skin Other: Warm dry no rash Neuro General: patient oriented x3, gait normal, no focal motor deficits and CN's II- XI intact bilaterally Psych Other: Cooperative Medications Administered Discontinued Medications Generic Name Dose Route Start Last Admin Trade Name Freq PRN Reason Stop Dose Admin Diatrizoate Meglum/Diatrizoate Sod 30 ml 08/20/24 02:43 08/20/24 02:44 Diatrizoate Meglumine, Sodium 30 Ml Solution PO 08/20/24 02:44 30 ml ONCE ONE Administration Diphenhydramine HCl 50 mg 08/19/24 21:57 08/19/24 22:03 Diphenhydramine Hcl 50 Mg/Ml Vial IVPUSH 08/19/24 21:58 50 mg ONCE STA Administration Diphenhydramine HCl 25 mg 08/19/24 23:52 08/20/24 00:22 Diphenhydramine Hcl 50 Mg/Ml Vial IVPUSH 08/19/24 23:53 25 mg ONCE ONE Administration Hydromorphone HCl 1 mg 08/20/24 01:28 08/20/24 01:47 Hydromorphone Hcl 1 Mg/Ml Syringe IVPUSH 08/20/24 01:29 1 mg ONCE ONE Administration Protocol Sodium Chloride 1,000 mls @ 999 mls/hr 08/19/24 23:45 08/20/24 01:49 Ns IV 08/20/24 00:45 Infused .Q1H1M ANNA Infusion Morphine Sulfate 4 mg 08/19/24 23:52 08/20/24 00:22 Morphine Sulfate 4 Mg/Ml Cartridge IVPUSH 08/19/24 23:53 4 mg ONCE ONE Administration Protocol Ondansetron HCl 4 mg 08/19/24 21:57 08/19/24 22:03 Ondansetron Hcl 4 Mg/2 Ml Vial IVPUSH 08/19/24 21:58 4 mg ONCE ONE Administration Ondansetron HCl 4 mg 08/19/24 23:52 08/20/24 00:22 Ondansetron Hcl 4 Mg/2 Ml Vial IVPUSH 08/19/24 23:53 4 mg ONCE ONE Administration Medical Decision Making Medical Decision Making MDM Narrative: 44-year-old female with a history of chronic pain, chronic constipation secondary to chronic opiate use, prior G/J tubes secondary to gastroparesis, self report of multiple ventral hernia repairs, Behcet's disease, Crohn's disease, PE on Eliquis, absence seizure disorder presents with generalized abdominal pain that began today. Patient unable to describe the nature of her discomfort. Associated nausea /vomiting. Denies constipation, diarrhea or fever. Denies distention or inability to pass flatus. Problem: Anticoagulated, PE, chronic pain, multiple surgeries, gastroparesis , chrohn's History: Per patient I have considered the following differential diagnoses: Bowel obstruction, Crohn's flare, constipation, gastroparesis, ileus, incarcerated hernia, strangulated hernia Plan: Patient here with generalized abdominal discomfort, with a nonfocal exam. Given generalized discomfort, she could have an early obstruction versus ileus from her gastroparesis, and/or from potential adhesions given multiple abdominal surgeries. We will be screening basic labs, and obtaining a CT scan with oral contrast. We will be giving IV fluid Zofran and morphine. There was no palpable mass on exam to suggest a incarcerated hernia. Doubtful to be a Crohn's flare given she is not having bloody diarrhea. I have independently reviewed the following tests: Labs: Leukocytosis with left shift, not anemic, no electrolyte abnormality, viral panel negative, CT abdomen and pelvis:Findings: There are unchanged mildly hyperdense left pleural nodules consistent with prior talc pleurodesis. There is unchanged mild subsegmental bibasilar atelectasis/scarring. Is unchanged mild right pleural thickening. The liver, gallbladder, pancreas, spleen, adrenal glands, and kidneys are unremarkable. There may be mild wall thickening of the transverse colon versus under distention. The remainder of the gastrointestinal tract is unremarkable. There is no free fluid or free air. The uterus is either atrophic or the patient is status post supracervical hysterectomy. There are no enlarged lymph nodes. There is an unchanged shallow wide neck ventral abdominal hernia containing only fat. The aorta is normal in diameter. There is a translumbar port catheter with tip extending into the right atrium and out of the field of view. Port reservoir is in the right posterolateral chest wall/upper abdominal wall. There is an intrathecal pump in the left upper buttock/lower flank with catheter extending into the thoracic spinal canal and out of the field of view. There is no fracture or suspicious lytic or sclerotic lesion. IMPRESSION: 1. Possible mild wall thickening of the transverse colon versus under distention. Correlate for colitis. 2. Stable chronic findings as above. Lab Data 08/19/24 22:34 08/19/24 22:34 Labs: Lab Results 08/19/24 08/19/24 Range/Units 22:28 22:34 WBC 14.8 H (4.8-10.8) X10*3/uL RBC 4.62 (4.20-5.50) X10*6/uL Hgb 13.7 (12.0-16.0) g/dl Hct 39.6 (37.0-47.0) % MCV 85.7 (80.0-98.0) fL MCH 29.7 (27.0-33.0) pg MCHC 34.6 (31.0-35.0) g/dl RDW 12.5 (11.0-16.0) % Plt Count 219 (160-400) X10*3/uL MPV 9.7 (9.4-12.3) fL Immature Gran % (Auto) 0.3 (0.0-0.4) % Neut % (Auto) 89.8 H (45-73) % Lymph % (Auto) 7.7 L (20-40) % [place] % (Auto) 1.6 L (2-11) % Eos % (Auto) 0.3 (0-4) % Baso % (Auto) 0.3 (0-2) % Lymph # (Auto) 1.1 L (1.2-4.9) X10*3/uL [place] # (Auto) 0.2 (0.1-1.2) X10*3/uL Eos # (Auto) 0.0 (0.0-0.4) X10*3/uL Baso # (Auto) 0.1 (0.0-0.2) X10*3/uL Abs Immat Gran (auto) 0.05 H (0.00-0.03) X10*3/uL Absolute Neuts (auto) 13.3 H (2.0-8.3) x10*3/uL Absolute Nucleated RBC 0.000 (0.0-0.012) X10*3/uL Nucleated RBC % (auto) 0.0 (0.0-0.2) /100WBC Sodium 140 (135-145) mmol/L Potassium 3.7 (3.3-5.1) mmol/L Chloride 104 (96-108) mmol/L Carbon Dioxide 27 (22-29) mmol/L Anion Gap 13 (12-20) BUN 22 H (9-16) mg/dL Creatinine 0.78 (0.5-1.4) mg/dL Estim Creat Clear Calc 80.7 Estimated GFR > 60 Random Glucose 134 H (60-115) mg/dL Calcium 9.2 (8.4-10.2) mg/dL Total Bilirubin 0.3 (0.0-1.0) mg/dL AST 23 (5-31) U/L ALT 16 (0-31) U/L Alkaline Phosphatase 70 (39-117) U/L Troponin I High Sens < 2.7 (<3.5-17.0) ng/L Total Protein 7.0 (6.5-8.0) g/dL Albumin 4.3 (3.5-5.0) g/dL Lipase 10 (8-78) U/L Beta HCG, Quant 8 mIU/mL Influenza Type A (PCR) NEGATIVE (Negative) Influenza Type B (PCR) NEGATIVE (Negative) RSV RNA Qual (PCR) NEGATIVE (Negative) SARS-CoV-2 RNA (RT-PCR) NEGATIVE (Negative) Discharge Plan Discharge Clinical Impression: Colitis, Nausea & vomiting Patient Disposition: Admitted As Inpatient Prescriptions: No Action Incruse Ellipta 62.5 mcg/actuation Blister With Device 1 inh INHALATION DAILY fluticasone furoate-vilanterol [Breo Ellipta] 200-25 mcg/dose Blister With Device 1 inh INHALATION Q24H diphenhydramine HCl 50 mg/mL solution 25 mg IV QID PRN (Reason: Nausea) ondansetron HCl (PF) 4 mg/2 mL solution 4 mg IV QID PRN (Reason: Nausea) promethazine 25 mg Tablet 25 mg PO QID PRN (Reason: Nausea And Vomiting) albuterol sulfate 90 mcg/actuation HFA aerosol inhaler 2 puff inhalation Q4-6H PRN (Reason: shortness of breath or wheezing) Qty: 8.5 0RF Eliquis 5 mg tablet 5 mg PO BID Qty: 60 0RF hydromorphone 4 mg tablet 4 mg PO BID PRN (Reason: severe pain (scale score 7-10)) 30 Days Qty: 60 0RF Rx Instructions: Partial fill per patient's request only naloxone [Narcan] 4 mg/actuation spray,non-aerosol 4 mg intranasal Q2M PRN (Reason: opioid overdose) Qty: 2 0RF Rx Instructions: spray 1 dose into ONE nostril; alternate nostrils w each dose until help arrives Print Language: Romansh
[2024-08-20] VITALS (13 sets, daily range): BP systolic 100–118; BP diastolic 53–70; PULSE 66–87; RESP 14–20; TEMP 36.3–37.2; O2SAT 92–98; BMI 26.9
[2024-08-20] MEDS: Morphine Sulfate 4 MG/ML CARTRIDGE IVPUSH (00:22)
[2024-08-20] MEDS: ondansetron HCL 4 MG/2 ML VIAL IVPUSH ×4 (00:22→17:55)
[2024-08-20] MEDS: diphenhydrAMINE HCL 50 MG/ML VIAL 25 MG IVPUSH ×4 (00:22→17:54)
[2024-08-20] MEDS: 0.9 % Sodium Chloride 1,000 ML 999 ML IV (00:23)
[2024-08-20 00:32] LABS: HCG Quantitative 8 mIU/mL
[2024-08-20] MEDS: HYDROmorphone HCl 1 MG/ML SYRINGE IVPUSH ×6 (01:47→22:38)
--- NOTE | 2024-08-20 01:54 | PC.NURSE ---
pt returned from ct at this time, reporting 8/10 abdominal pain. pt medicated per mar, and given warm blanket.
--- NOTE | 2024-08-20 02:42 | PC.NURSE ---
pt to CT at this time.
[2024-08-20] MEDS: Diatrizoate Meglumine, Sodium 30 ML SOLUTION PO (02:44)
--- NOTE | 2024-08-20 04:46 | PC.NURSE ---
pt reporting increased nausea, vomiting and pain. providers orders as placed.
--- NOTE | 2024-08-20 07:22 | PC.NURSE ---
Pt resting comfortably in bed, awaiting admission orders, pt reporting 7/10 pain, denies nausea at this time, denies any blood in her bowel movements. Pt reporting she has had 10 BMs. Pt reporting she is having brownish/yellow liquid diarrhea. Pt normally only has 2-3 Bms in a week.
--- NOTE | 2024-08-20 08:25 | P.HPHOSP_ITS ---
History of Present Illness Date of Service: 08/20/24 Chief Complaint: abdominal pain, nausea, vomiting, diarrhea The patient is a 44-year-old female with a past medical history of chronic pain syndrome, seizure disorder, DVT/PE on Eliquis, asthma, Behcet's disease, Crohn's disease, on chronic TPN who [place] [facility] [place] [facility] with a 1 day history of lower abdominal pain which is, crampy in nature and intermittent but 10/10 in severity. The patient reports nonbilious/nonbloody vomiting as well as nonbloody diarrhea. The patient reports that she was in her usual state of health and these symptoms began suddenly on the day prior to hospitalization. Initially she thought they were just cramps and tried to lay down and rest. However her pain persisted and hence she presented to the emergency room. She since reports multiple bouts of vomiting as well as diarrhea. ED course: IV analgesics x 3 doses; IV antiemetics x 3 doses; IV benadryl x 3 doses; IVF 1L NS WBC 14 CT - mild thickening of transverse colon vs under distention; possible colitis Stool studies pending Review of Systems 2 Review of Systems: Negative except HPI/interval history. [facility] Medical History Pulmonary emboli Crohn's disease Chronic, continuous use of opioids Immunosuppression Absence seizure disorder DVT (deep venous thrombosis) Pyloric stenosis Asthma Common variable immunodeficiency Spondylolisthesis, lumbar region Spondylosis of lumbar region without myelopathy or radiculopathy Abdominal pain, chronic, generalized Gastroparesis Spontaneous pneumothorax Chronic pain syndrome Cervicalgia Low back pain Behcet's disease Family History Father Hairy cell leukemia Surgical History History of hernia surgery Social History Household Members: Children Household Members Other:: son Housing: Condominium Do you presently have visiting nurse or other home services: No Unable to assess alcohol history related to: Unknown Alcohol intake: never Patient Tobacco Use Status: Never used Tobacco Second Hand Smoke Exposure: No Advance Directives Date on File: 04/22/23 service: No Current occupational status: unemployed Meds Allergies Allergy/AdvReac Type Severity Reaction Status Date / Time ciprofloxacin [Cipro] Allergy Unknown Hives Verified 08/19/24 21:52 levofloxacin [Levaquin] Allergy Unknown Hives Verified 08/19/24 21:52 metoclopramide [Reglan] Allergy Unknown Hives Verified 08/19/24 21:52 ondansetron [Zofran] Allergy Unknown Itching Verified 08/19/24 21:52 penicillin V Allergy Unknown Hives Verified 08/19/24 21:52 prochlorperazine Allergy Unknown Shortness Verified 08/19/24 21:52 [From Compazine] of Breath Sulfa (Sulfonamide Allergy Unknown Hives Verified 08/19/24 21:52 Antibiotics) thalidomide [From Thalomid] Allergy Unknown Rash Verified 08/19/24 21:52 haloperidol [From Haldol] Allergy Itching Verified 08/19/24 21:52 Home Medications ?Medication ?Instructions ?Recorded ?Confirmed ?Last Taken ?Type fluticasone furoate 200 1 inh inhalation Q24H 12/12/20 08/06/24 02/04/23 History mcg-vilanterol 25 mcg/dose inhalation powder (Breo Ellipta) umeclidinium 62.5 mcg/actuation 1 inh inhalation DAILY 12/12/20 08/06/24 02/04/23 History blister powder for inhalation (Incruse Ellipta) diphenhydramine HCl 50 mg/mL 25 mg IV QID PRN Nausea 03/12/21 08/06/24 02/04/23 History injection solution ondansetron HCl (PF) 4 mg/2 mL 4 mg IV QID PRN Nausea 03/12/21 08/06/24 02/04/23 History injection solution promethazine 25 mg tablet 25 mg PO QID PRN Nausea And 08/18/21 08/06/24 02/04/23 History Vomiting levetiracetam 100 mg/mL oral 700 mg PO BID 08/20/24 Unknown History solution Physical Exam 2 Vital Signs and Narrative: Vital Signs: Last Vital Signs Temp 98.5 F 08/20/24 07:20 Pulse 83 08/20/24 07:20 Resp 18 08/20/24 07:20 BP 100/67 08/20/24 07:20 Pulse Ox 94 08/20/24 07:20 O2 Del Method Room Air 08/20/24 07:20 BMI result Body Mass Index 26.9 Const: Other: Constitutional - Awake and Alert, No apparent distress Eyes - PERRLA, EOMI Cardiovascular - S1S2, RRR, No edema Respiratory - Normal lung expansion, Normal respiratory effort, No respiratory distress, CTA bilaterally Gastrointestinal - mild diffuse TTP without rebound/guarding - No CVA tenderness Extremities - no calf tenderness bilaterally, no swelling Musculoskeletal - Normal inspection, normal ROM Skin - Warm/Dry Neurological - Alert & oriented x3, No focal deficit Psychological - Appropriate affect Results Labs 08/19/24 22:34 08/19/24 22:34 Labs: Laboratory Results - last 24 hr 08/19/24 08/19/24 22:28 22:34 MCV 85.7 MCH 29.7 MCHC 34.6 RDW 12.5 Plt Count 219 MPV 9.7 Immature Gran % (Auto) 0.3 Neut % (Auto) 89.8 H Lymph % (Auto) 7.7 L Kleberg % (Auto) 1.6 L Eos % (Auto) 0.3 Baso % (Auto) 0.3 Lymph # (Auto) 1.1 L Kleberg # (Auto) 0.2 Eos # (Auto) 0.0 Baso # (Auto) 0.1 Abs Immat Gran (auto) 0.05 H Absolute Neuts (auto) 13.3 H Absolute Nucleated RBC 0.000 Nucleated RBC % (auto) 0.0 Anion Gap 13 Estim Creat Clear Calc 80.7 Estimated GFR > 60 Random Glucose 134 H Calcium 9.2 Total Bilirubin 0.3 AST 23 ALT 16 Alkaline Phosphatase 70 Total Protein 7.0 Albumin 4.3 Lipase 10 Beta HCG, Quant 8 Influenza Type A (PCR) NEGATIVE Influenza Type B (PCR) NEGATIVE RSV RNA Qual (PCR) NEGATIVE SARS-CoV-2 RNA (RT-PCR) NEGATIVE Assessment and Plan (1) Colitis: Status: Acute Plan 44 yo F with multiple medical problems presenting with a 1 day history of abdominal pain associated with nausea/vomiting/diarrhea. CT showing possible colitis. Will be admitted for further work up and treatment. 1. Possible colitis/enterocolitis supportive care with IVF, anti-emetics, IV analgesics stool studies pending -- antibiotics pending results GI consult if not improved 2. Chronic pain on PO dilaudid at home, will hold and use IV for the time being 3. Crohn's disease not currently on therapy recevies TPN at home, will continue 4. History of PE/DVT previously on eliquis -- do not see it on claim history pt unsure if she takes eliquis anymore; initially reported intermittent compliance will need outpt records 5. History of seizure d/o Keppra Full Code DVT pptx - Eliquis vs Lovenox (await reports from outpt / pharmacy med rec) Pt with severe abdominal pain and nausea requiring multiple doses of IV treatment + CT concerning for possible colitis, complicated by underlying crohn's, bachet's, chronic pain syndrome and chronic TPN use, therefore expected to require at least 2 midnights in the hospital for management and hence, will be admitted as inpatient. Quality Stroke Does the patient have a stroke diagnosis?: No VTE Prior VTE?: No VTE Risk Level:: Medical - moderate - high VTE Device Contraindication: N/A - Device Ordered VTE Drug Contraindication: N/A - Med Ordered
--- NOTE | 2024-08-20 08:54 | PC.NURSE ---
Pt just admitted to the hospital, no pain medications ordered, MD Recio reached out to to ask for higher medication options than APAP. Awaiting new orders at this time
[2024-08-20 09:16] LABS: CDiff Gene PCR NEGATIVE (Negative)
[2024-08-20] MEDS: Dextrose 5 % and Lactated Ring 1,000 ML 100 ML IVCONT ×2 (09:25→19:57)
[2024-08-20 10:01] LABS: Adenovirus F 40/41 Not Detected (Not Detect.); Astrovirus Not Detected (Not Detect.); Campylobacter Not Detected (Not Detect.); Cryptosporidium Not Detected (Not Detect.); Cyclospora cayetanensis Not Detected (Not Detect.); E. coli EAEC Not Detected (Not Detect.); E. coli EPEC Not Detected (Not Detect.); E. coli ETEC Not Detected (Not Detect.); E. coli STEC Not Detected (Not Detect.); Entamoeba histolytica Not Detected (Not Detect.); Giardia lamblia Not Detected (Not Detect.); Plesiomonas shigelloides Not Detected (Not Detect.); Rotavirus A Not Detected (Not Detect.); Salmonella Not Detected (Not Detect.); Sapovirus Not Detected (Not Detect.); Shigella sp./EIEC Not Detected (Not Detect.); Vibrio Not Detected (Not Detect.); Vibrio Cholerae Not Detected (Not Detect.); Yersinia enterocolitica Not Detected (Not Detect.)
--- NOTE | 2024-08-20 10:26 | PHA.MEDREC ---
Pharmacy Consult ? Medication Reconciliation Pharmacy has completed the medication reconciliation.
--- NOTE | 2024-08-20 10:26 | PHA.MEDREC ---
Addendum entered by Mikael Schaefer 08/20/24 10:34: reviewed Original Note: Pharmacy Consult ? Medication Reconciliation Pharmacy has completed the medication reconciliation. Spoke to patient to confirm med list. Patient was able to tell me what medications she takes. Patient states she is on Eliquis 5 mg Bid , however there are no claims. Called [facility] and Steven Y and they both confirmed, patient hasn't filled any Eliquis in 2 years. will continued medications and will contact patients PCP. Patient states she fills TPN , Benadryl, zofran and Promethazine IV through [facility] [phone]. Contacting [facility] to get TPN recipe.
[2024-08-20 10:27] LABS: Norovirus GI/GII Detected (Not Detect.)
[2024-08-20] MEDS: Apixaban 5 MG TABLET PO ×2 (11:18→19:57)
[2024-08-20] MEDS: levETIRAcetam 750 MG in 0.9 % Sodium Chloride 100 ML 430 MG IV ×2 (11:19→23:16)
--- NOTE | 2024-08-20 11:56 | MHC.CLN ---
NUTRITION PATIENT IN ED OVERFLOW WITH CONSULT FOR TPN. RECEIVES HOME TPN AND CURRENT RECOMMENDATION BASED ON HOME TPN RX. DISCUSSED WITH PHARMACY. LABS ORDERED. RECOMMEND TPN AT 80 ML PER HOUR, ADD 50 G LIPIDS EXCLUDING WEDNESDAYS AND FRIDAYS. PROVIDE 70 G PROTEIN (1.4 G/KG IBW), 200 G DEXTROSE, 1460 TOTAL KCALS WITH LIPIDS (29.2 KCALS/KG IBW). REPLETE LYTES NEEDED. MONITOR PO INTAKE, TPN TOLERANCE, LABS. SEE CLINICAL NUTRITION ASSESSMENT 08/20/24.
--- NOTE | 2024-08-20 12:20 | MHC.IC ---
[employer] [employer]. STRICT CONTACT PRECAUTIONS, HANDWASHING SOAP AND WATER, SURFACES W BLEACH
[2024-08-20 13:10] LABS: Triglycerides 50 mg/dL (<150)
[2024-08-20 13:40] LABS: Alanine Aminotransferase 10 U/L (0-31); Albumin Level 3.8 g/dL (3.5-5.0); Alkaline Phosphatase 56 U/L (39-117); Anion Gap 10 (12-20); Aspartate Amino Transferase 21 U/L (5-31); Bilirubin Total 0.4 mg/dL (0.0-1.0); Blood Urea Nitrogen 14 mg/dL (9-16); Calcium 8.3 mg/dL (8.4-10.2); Carbon Dioxide 28 mmol/L (22-29); Chloride 107 mmol/L (96-108); Creatinine Clr Calc Pharmacy 86.2; Estimated Glomerular Filt Rate > 60; Glucose Random 107 mg/dL (60-115); Potassium 3.9 mmol/L (3.3-5.1); Sodium 141 mmol/L (135-145); Total Protein 6.2 g/dL (6.5-8.0)
[2024-08-20] MEDS: 0.9 % Sodium Chloride Flush 3 ML SYRINGE IVFLUSH (20:01)
[2024-08-20] MEDS: Acetaminophen 325 MG TABLET 650 MG PO (21:16)
[2024-08-20] MEDS: Parenteral Nutrition 1,920 ML 80 ML IV (21:18)
[2024-08-20] MEDS: Promethazine HCL 25 MG TABLET PO (23:20)
[2024-08-21] VITALS (7 sets, daily range): BP systolic 95–116; BP diastolic 53–62; PULSE 64–75; RESP 16–18; TEMP 36–36.8; O2SAT 93–97
[2024-08-21] MEDS: diphenhydrAMINE HCL 50 MG/ML VIAL 25 MG IVPUSH ×4 (00:18→19:13)
[2024-08-21] MEDS: ondansetron HCL 4 MG/2 ML VIAL IVPUSH ×4 (00:18→19:13)
[2024-08-21] MEDS: HYDROmorphone HCl 1 MG/ML SYRINGE IVPUSH ×5 (03:54→20:43)
[2024-08-21] MEDS: Dextrose 5 % and Lactated Ring 1,000 ML 100 ML IVCONT ×2 (06:39→17:00)
[2024-08-21 06:42] LABS: Albumin Level 3.2 g/dL (3.5-5.0); Anion Gap 9 (12-20); Blood Urea Nitrogen 13 mg/dL (9-16); Calcium 8.1 mg/dL (8.4-10.2); Carbon Dioxide 25 mmol/L (22-29); Chloride 111 mmol/L (96-108); Creatinine Clr Calc Pharmacy 93.8; Estimated Glomerular Filt Rate > 60; Glucose Random 137 mg/dL (60-115); Magnesium 2.4 mg/dL (1.6-2.6); Phosphorus 3.1 mg/dL (2.7-4.5); Potassium 3.7 mmol/L (3.3-5.1); Sodium 141 mmol/L (135-145); Triglycerides 107 mg/dL (<150)
[2024-08-21 06:52] LABS: Alanine Aminotransferase 10 U/L (0-31); Albumin Level 3.2 g/dL (3.5-5.0); Alkaline Phosphatase 42 U/L (39-117); Anion Gap 9 (12-20); Aspartate Amino Transferase 22 U/L (5-31); Bilirubin Total 0.2 mg/dL (0.0-1.0); Blood Urea Nitrogen 11 mg/dL (9-16); Calcium 8.2 mg/dL (8.4-10.2); Carbon Dioxide 25 mmol/L (22-29); Chloride 111 mmol/L (96-108); Creatinine Clr Calc Pharmacy 92.5; Estimated Glomerular Filt Rate > 60; Glucose Random 137 mg/dL (60-115); Potassium 3.7 mmol/L (3.3-5.1); Sodium 141 mmol/L (135-145); Total Protein 5.4 g/dL (6.5-8.0)
[2024-08-21] MEDS: Apixaban 5 MG TABLET PO ×2 (08:02→20:44)
--- NOTE | 2024-08-21 10:21 | MHC.CLN ---
F/U REVIEWED LABS DISCUSSED WITH PHARMACY CONTINUE TPN AT 80 ML PER HOUR WITH 50 G LIPIDS PROVIDES 1460 TOTAL KCALS (29KCALS/KG), 70 G PROTEIN (1.4 G/KG IBW), 200 G DEXTROSE REPLETE LYTES NEEDED MONITOR PO INTAKE, TPN TOLERANCE AND LYTES
--- NOTE | 2024-08-21 10:31 | P.PNIM_ITS ---
Subjective Subjective Date of Service: 08/21/24 Review of Systems Follow up norovirus still with diarrhea Physical Exam 2 Vital Signs: Vital Signs: Last Vital Signs Temp 97.1 F 08/21/24 07:39 Pulse 69 08/21/24 07:39 Resp 16 08/21/24 07:39 BP 112/53 L 08/21/24 07:39 Pulse Ox 95 08/21/24 07:39 O2 Del Method Room Air 08/21/24 07:39 BMI result Body Mass Index 26.9 Appearing in no acute distress lung sounds are clear to auscultation heart regular rate rhythm, clear S1, S2 positive bowel sounds, abdomen is soft, nontender neuro patient is alert x3, no focal deficits Objective Data Active Medications Acetaminophen (Acetaminophen 325 Mg Tablet) 650 mg PO Q6H PRN PRN Reason: Pain, Mild 1-3,fever,headache Last Admin: 08/20/24 21:16 Dose: 650 mg Documented By: JUANITA Apixaban (Apixaban 5 Mg Tablet) 5 mg PO BID [facility] Last Admin: 08/21/24 08:02 Dose: 5 mg Documented By: FARA Calcium Carbonate (Calcium Carbonate 750 Mg Tab.Chew) 750 mg PO Q4H PRN PRN Reason: Heartburn Diphenhydramine HCl (Diphenhydramine Hcl 50 Mg/Ml Vial) 25 mg IVPUSH Q6H PRN PRN Reason: Itching Last Admin: 08/21/24 06:33 Dose: 25 mg Documented By: JUANITA Fluticasone/Vilanterol (Fluticasone/Vilanterol 200/25 Blst.W.Dev) 1 puff INHALE Q24H [facility] Last Admin: 08/20/24 10:39 Dose: Not Given Documented By: PAOLA Non-Admin Reason: new start 08/21 Hydromorphone HCl (Hydromorphone Hcl 1 Mg/Ml Syringe) 1 mg IVPUSH Q4H PRN; Protocol PRN Reason: Pain, Severe (Pain Scale 7-10) Last Admin: 08/21/24 08:02 Dose: 1 mg Documented By: FARA Dextrose/Lactated Ringer's (D5lr) 1,000 mls @ 100 mls/hr IVCONT .Q10H [facility] Last Admin: 08/21/24 06:39 Dose: 100 mls/hr Documented By: JUANITA Levetiracetam 750 mg/ Sodium (Chloride) 107.5 mls @ 430 mls/hr IV Q12H [facility] Last Infusion: 08/20/24 23:31 Dose: Infused Documented By: JUANITA Nutrition (Parenteral) (Parenteral Nutrition) 1,920 mls @ 80 mls/hr IV .Q24H [facility]; Protocol Stop: 08/21/24 20:59 Last Admin: 08/20/24 21:18 Dose: 80 mls/hr Documented By: JUANITA Nutrition (Parenteral) (Parenteral Nutrition) 1,920 mls @ 80 mls/hr IV .Q24H [facility]; Protocol Stop: 08/22/24 20:59 Magnesium Hydroxide (Milk Of Magnesia 30 Ml Oral.Susp) 30 ml PO DAILY PRN PRN Reason: Constipation Melatonin (Melatonin 3 Mg Tablet) 6 mg PO BEDTIME PRN PRN Reason: Insomnia Ondansetron HCl (Ondansetron Hcl 4 Mg/2 Ml Vial) 4 mg IVPUSH Q6H PRN PRN Reason: Nausea and Vomiting Last Admin: 08/21/24 06:37 Dose: 4 mg Documented By: JUANITA Pharmacy Consult (Consult Rx Parenteral Nutrition Ordering) 1 each MISCELLANE DAILY PRN PRN Reason: Consult order Promethazine HCl (Promethazine Hcl 25 Mg Tablet) 25 mg PO QID PRN PRN Reason: Nausea And Vomiting Last Admin: 08/20/24 23:20 Dose: 25 mg Documented By: JUANITA Sodium Chloride (0.9 % Sodium Chloride Flush 3 Ml Syringe) 3 ml IVFLUSH QSHIFT [facility] Last Admin: 08/21/24 08:54 Dose: Not Given Documented By: FARA Non-Admin Reason: Previously Administered Tiotropium Linden (Tiotropium Linden 2.5 Mcg 1 Puff/2.5 Mcg Mist.Inhal) 2 puff INHALE RDAILY [facility] Labs 08/19/24 22:34 08/21/24 06:10 Labs: Laboratory Results - last 24 hr 08/20/24 08/21/24 08/21/24 12:42 06:10 06:10 Anion Gap 10 L 9 L 9 L Estim Creat Clear Calc 86.2 92.5 Estimated GFR > 60 Random Glucose 107 Calcium 8.3 L D Phosphorus Magnesium Total Bilirubin 0.4 AST 21 ALT 10 Alkaline Phosphatase 56 Total Protein 6.2 L Albumin 3.8 Triglycerides 50 08/21/24 08/21/24 08/21/24 06:10 06:10 06:10 Anion Gap Estim Creat Clear Calc 93.8 Estimated GFR > 60 > 60 Random Glucose 137 H 137 H Calcium 8.2 L Phosphorus Magnesium Total Bilirubin AST ALT Alkaline Phosphatase Total Protein Albumin Triglycerides 08/21/24 08/21/24 06:10 06:10 Anion Gap Estim Creat Clear Calc Estimated GFR Random Glucose Calcium 8.1 L Phosphorus 3.1 Magnesium 2.4 Total Bilirubin 0.2 AST 22 ALT 10 Alkaline Phosphatase 42 Total Protein 5.4 L Albumin 3.2 L 3.2 L Triglycerides 107 Assessment and Plan (1) Nausea & vomiting: Status: Acute Plan 44 yo F with multiple medical problems presenting with a 1 day history of abdominal pain associated with nausea/vomiting/diarrhea. CT showing possible colitis. Admitted for further work up and treatment. Norovirus supportive care with IVF, anti-emetics, IV analgesics other stool studies neg and cdiff GI consult Chronic pain on PO dilaudid at home Crohn's disease not currently on therapy recevies TPN at home, will continue History of PE/DVT previously on eliquis -- do not see it on claim history pt unsure if she takes eliquis anymore; initially reported intermittent compliance will need outpt records History of seizure d/o Keppra Full Code DVT pptx - Eliquis vs Lovenox (await reports from outpt / pharmacy med rec) Pt with severe abdominal pain and nausea requiring multiple doses of IV treatment + CT concerning for possible colitis, complicated by underlying crohn's, bachet's, chronic pain syndrome and chronic TPN use, therefore expected to require at least 2 midnights in the hospital for management and hence, will be admitted as inpatient. Quality Stroke Does the patient have a stroke diagnosis?: No VTE Prior VTE?: No VTE Risk Level:: Medical - moderate - high VTE Device Contraindication: N/A - Device Ordered VTE Drug Contraindication: N/A - Med Ordered
[2024-08-21] MEDS: levETIRAcetam 750 MG in 0.9 % Sodium Chloride 100 ML 430 MG IV ×2 (11:35→22:58)
[2024-08-21] MEDS: Tiotropium Bromide 2.5 mcg 1 PUFF/2.5 MCG MIST.INHAL 2 PUFF INHALE (11:35)
[2024-08-21] MEDS: Fluticasone/Vilanterol 200/25 BLST.W.DEV 1 PUFF INHALE (11:35)
--- NOTE | 2024-08-21 15:11 | MHC.CM.PN ---
IMM delivered. Patient lives in an apartment w/ her adult son. Currently managing ADL's independently but reports she was recently approved for 14 [employer] hrs/wk and is working on having her son be her [employer]. Active w/ [facility] for chronic TPN at [facility]. Return referral sent via [employer]. Ambulates independently most times, but uses w/c PRN for weakness, fatigue. PCP Brian Morales MD HCP on file and verified. DP: Home, resume [facility], initiate [employer] services. [place] Lyft transport [place]. CM will continue to follow.
[2024-08-21] MEDS: 0.9 % Sodium Chloride Flush 3 ML SYRINGE IVFLUSH (17:03)
[2024-08-21] MEDS: Acetaminophen 325 MG TABLET 650 MG PO (17:08)
[2024-08-21] MEDS: Parenteral Nutrition 1,920 ML 80 ML IV (21:41)
[2024-08-22] VITALS (7 sets, daily range): BP systolic 117–137; BP diastolic 57–63; PULSE 85–93; RESP 16–20; TEMP 36.3–39.4; O2SAT 95–98
[2024-08-22] MEDS: ondansetron HCL 4 MG/2 ML VIAL IVPUSH ×4 (01:11→19:59)
[2024-08-22] MEDS: diphenhydrAMINE HCL 50 MG/ML VIAL 25 MG IVPUSH ×4 (01:11→20:00)
[2024-08-22] MEDS: HYDROmorphone HCl 1 MG/ML SYRINGE IVPUSH ×5 (01:12→22:00)
[2024-08-22] MEDS: Dextrose 5 % and Lactated Ring 1,000 ML 100 ML IVCONT (02:31)
[2024-08-22] MEDS: 0.9 % Sodium Chloride Flush 3 ML SYRINGE IVFLUSH ×3 (02:31→20:00)
[2024-08-22 06:49] LABS: Albumin Level 3.9 g/dL (3.5-5.0); Anion Gap 13 (12-20); Blood Urea Nitrogen 12 mg/dL (9-16); Calcium 8.8 mg/dL (8.4-10.2); Carbon Dioxide 24 mmol/L (22-29); Chloride 107 mmol/L (96-108); Creatinine Clr Calc Pharmacy 91.1; Estimated Glomerular Filt Rate > 60; Glucose Random 105 mg/dL (60-115); Magnesium 2.1 mg/dL (1.6-2.6); Phosphorus 2.4 mg/dL (2.7-4.5); Potassium 4.1 mmol/L (3.3-5.1); Sodium 140 mmol/L (135-145)
[2024-08-22] MEDS: Acetaminophen 325 MG TABLET 650 MG PO ×3 (07:58→22:26)
[2024-08-22] MEDS: Apixaban 5 MG TABLET PO ×2 (07:58→22:02)
[2024-08-22] MEDS: Tiotropium Bromide 2.5 mcg 1 PUFF/2.5 MCG MIST.INHAL 2 PUFF INHALE (08:07)
[2024-08-22] MEDS: Fluticasone/Vilanterol 200/25 BLST.W.DEV 1 PUFF INHALE (08:07)
[2024-08-22] MEDS: levETIRAcetam 750 MG in 0.9 % Sodium Chloride 100 ML 430 MG IV ×2 (10:46→22:02)
--- NOTE | 2024-08-22 11:08 | MHC.CM.PN ---
Patient not medically cleared for dc. CM will continue to follow.
--- NOTE | 2024-08-22 11:18 | MHC.CLN ---
F/U REVIEWED LABS. COMMUNICATED WITH PHARMACY. CONTINUE TPN AT 80 ML PER HOUR, 960 KCALS, 70 G PROTEIN (1.4 G/KG IBW), 200 G DEXTROSE. REPLETE LYTES NEEDED. CONTINUE TPN PER HOME SCHEDULE OF LIPIDS X 5 DAYS. NO LIPIDS ON TUESDAY AND TUESDAY. MONITOR PO INTAKE, TPN TOLERANCE AND LYTES.
--- NOTE | 2024-08-22 15:40 | P.PNIM_ITS ---
Subjective Subjective Date of Service: 08/22/24 Review of Systems Follow up norovirus still with diarrhea and abdominal pain Physical Exam 2 Vital Signs: Vital Signs: Last Vital Signs Temp 99.3 F 08/22/24 14:00 Pulse 87 08/22/24 14:00 Resp 19 08/22/24 14:00 BP 128/59 L 08/22/24 14:00 Pulse Ox 98 08/22/24 14:00 O2 Del Method Room Air 08/22/24 14:00 BMI result Body Mass Index 26.9 Appearing in no acute distress lung sounds are clear to auscultation heart regular rate rhythm, clear S1, S2 positive bowel sounds, abdomen is soft, nontender neuro patient is alert x3, no focal deficits Objective Data Active Medications Acetaminophen (Acetaminophen 325 Mg Tablet) 650 mg PO Q6H PRN PRN Reason: Pain, Mild 1-3,fever,headache Last Admin: 08/22/24 14:47 Dose: 650 mg Documented By: KERI Apixaban (Apixaban 5 Mg Tablet) 5 mg PO BID [facility] Last Admin: 08/22/24 07:58 Dose: 5 mg Documented By: KERI Calcium Carbonate (Calcium Carbonate 750 Mg Tab.Chew) 750 mg PO Q4H PRN PRN Reason: Heartburn Diphenhydramine HCl (Diphenhydramine Hcl 50 Mg/Ml Vial) 25 mg IVPUSH Q6H PRN PRN Reason: Itching Last Admin: 08/22/24 13:34 Dose: 25 mg Documented By: KERI Fluticasone/Vilanterol (Fluticasone/Vilanterol 200/25 Blst.W.Dev) 1 puff INHALE Q24H [facility] Last Admin: 08/22/24 08:07 Dose: 1 puff Documented By: MO Hydromorphone HCl (Hydromorphone Hcl 1 Mg/Ml Syringe) 1 mg IVPUSH Q6H PRN; Protocol PRN Reason: Pain, Severe (Pain Scale 7-10) Last Admin: 08/22/24 09:31 Dose: 1 mg Documented By: KERI Levetiracetam 750 mg/ Sodium (Chloride) 107.5 mls @ 430 mls/hr IV Q12H [facility] Last Infusion: 08/22/24 11:12 Dose: Infused Documented By: KERI Nutrition (Parenteral) (Parenteral Nutrition) 1,920 mls @ 80 mls/hr IV .Q24H [facility]; Protocol Stop: 08/22/24 20:59 Last Admin: 08/21/24 21:41 Dose: 80 mls/hr Documented By: LEVY Nutrition (Parenteral) (Parenteral Nutrition) 1,920 mls @ 80 mls/hr IV .Q24H [facility]; Protocol Stop: 08/23/24 20:59 Magnesium Hydroxide (Milk Of Magnesia 30 Ml Oral.Susp) 30 ml PO DAILY PRN PRN Reason: Constipation Melatonin (Melatonin 3 Mg Tablet) 6 mg PO BEDTIME PRN PRN Reason: Insomnia Ondansetron HCl (Ondansetron Hcl 4 Mg/2 Ml Vial) 4 mg IVPUSH Q6H PRN PRN Reason: Nausea and Vomiting Last Admin: 08/22/24 13:34 Dose: 4 mg Documented By: KERI Pharmacy Consult (Consult Rx Parenteral Nutrition Ordering) 1 each MISCELLANE DAILY PRN PRN Reason: Consult order Promethazine HCl (Promethazine Hcl 25 Mg Tablet) 25 mg PO QID PRN PRN Reason: Nausea And Vomiting Last Admin: 08/20/24 23:20 Dose: 25 mg Documented By: JUANITA Sodium Chloride (0.9 % Sodium Chloride Flush 3 Ml Syringe) [facility] Last Admin: 08/22/24 07:20 Dose: Not Given Documented By: KERI Non-Admin Reason: IV Running Tiotropium Grant (Tiotropium [place] 2.5 Mcg 1 Puff/2.5 Mcg Mist.Inhal) 2 puff INHALE RDAILY [facility] Last Admin: 08/22/24 08:07 Dose: 2 puff Documented By: MO Labs 08/19/24 22:34 08/22/24 06:28 Labs: Laboratory Results - last 24 hr 08/22/24 06:28 Anion Gap 13 Estim Creat Clear Calc 91.1 Estimated GFR > 60 Random Glucose 105 Calcium 8.8 D Phosphorus 2.4 L Magnesium 2.1 Albumin 3.9 Assessment and Plan (1) Nausea & vomiting: Status: Acute Plan 44 yo F with multiple medical problems presenting with a 1 day history of abdominal pain associated with nausea/vomiting/diarrhea. CT showing possible colitis. Admitted for further work up and treatment. Norovirus supportive care with IVF, anti-emetics, IV analgesics other stool studies neg and cdiff Chronic pain on PO dilaudid at home Crohn's disease not currently on therapy recevies TPN at home, will continue History of PE/DVT previously on eliquis -- do not see it on claim history pt unsure if she takes eliquis anymore; initially reported intermittent compliance will need outpt records History of seizure d/o Keppra Full Code DVT pptx - Eliquis vs Lovenox (await reports from outpt / pharmacy med rec) Pt with severe abdominal pain and nausea requiring multiple doses of IV treatment + CT concerning for possible colitis, complicated by underlying crohn's, bachet's, chronic pain syndrome and chronic TPN use, therefore expected to require at least 2 midnights in the hospital for management and hence, will be admitted as inpatient. Quality Stroke Does the patient have a stroke diagnosis?: No VTE Prior VTE?: No VTE Risk Level:: Medical - moderate - high VTE Device Contraindication: N/A - Device Ordered VTE Drug Contraindication: N/A - Med Ordered
--- NOTE | 2024-08-22 15:57 | PC.NURSE ---
Pt tolerated some clear liquids. C/o nausea intemittently relieved by iv zofran. Requesting IV dilaudid for abdominal pain-given per order with good effect
[2024-08-22] MEDS: Parenteral Nutrition 1,920 ML 80 ML IV (22:01)
[2024-08-23] VITALS (8 sets, daily range): BP systolic 104–126; BP diastolic 55–65; PULSE 78–93; RESP 16–28; TEMP 36.6–39.1; O2SAT 92–94
[2024-08-23] MEDS: HYDROmorphone HCl 1 MG/ML SYRINGE IVPUSH ×4 (03:50→23:05)
[2024-08-23] MEDS: ondansetron HCL 4 MG/2 ML VIAL IVPUSH ×4 (04:26→23:07)
[2024-08-23] MEDS: diphenhydrAMINE HCL 50 MG/ML VIAL 25 MG IVPUSH ×4 (04:26→23:03)
[2024-08-23 06:53] LABS: Triglycerides 43 mg/dL (<150)
[2024-08-23 06:57] LABS: Albumin Level 3.6 g/dL (3.5-5.0); Anion Gap 12 (12-20); Blood Urea Nitrogen 14 mg/dL (9-16); Calcium 8.3 mg/dL (8.4-10.2); Carbon Dioxide 25 mmol/L (22-29); Chloride 108 mmol/L (96-108); Creatinine Clr Calc Pharmacy 96.7; Estimated Glomerular Filt Rate > 60; Glucose Random 109 mg/dL (60-115); Magnesium 2.4 mg/dL (1.6-2.6); Phosphorus 3.4 mg/dL (2.7-4.5); Potassium 3.6 mmol/L (3.3-5.1); Sodium 141 mmol/L (135-145)
[2024-08-23] MEDS: Tiotropium Bromide 2.5 mcg 1 PUFF/2.5 MCG MIST.INHAL 2 PUFF INHALE (08:08)
[2024-08-23] MEDS: Fluticasone/Vilanterol 200/25 BLST.W.DEV 1 PUFF INHALE (08:08)
[2024-08-23 08:58] LABS: Lactic Acid 1.6 mmol/L (0.5-2.0)
[2024-08-23] MEDS: Acetaminophen 325 MG TABLET 650 MG PO (09:21)
[2024-08-23] MEDS: Apixaban 5 MG TABLET PO ×2 (09:21→22:44)
[2024-08-23] MEDS: 0.9 % Sodium Chloride Flush 3 ML SYRINGE IVFLUSH ×3 (09:22→23:15)
[2024-08-23] MEDS: levETIRAcetam 750 MG in 0.9 % Sodium Chloride 100 ML 430 MG IV ×2 (11:13→22:44)
[2024-08-23 11:28] LABS: Basophils Percent Auto 0.4 % (0-2); Eosinophils Percent Auto 0.4 % (0-4); Hematocrit 34.9 % (37.0-47.0); Hemoglobin 11.9 g/dl (12.0-16.0); Imm Gran Abs Auto 0.01 X10*3/uL (0.00-0.03); Imm Gran Pct Auto 0.4 % (0.0-0.4); Lymphocytes Absolute Auto 0.2 X10*3/uL (1.2-4.9); Lymphocytes Percent Auto 7.4 % (20-40); Mean Corpuscular HGB Conc 34.1 g/dl (31.0-35.0); Mean Corpuscular Hemoglobin 29.5 pg (27.0-33.0); Mean Corpuscular Volume 86.4 fL (80.0-98.0); Monocytes Absolute Auto 0.2 X10*3/uL (0.1-1.2); Monocytes Percent Auto 6.7 % (2-11); Neutrophils Absolute Auto 2.4 x10*3/uL (2.0-8.3); Neutrophils Percent Auto 84.7 % (45-73); Red Blood Count 4.04 X10*6/uL (4.20-5.50); Red Cell Distribution Width 12.8 % (11.0-16.0); White Blood Count 2.9 X10*3/uL (4.8-10.8)
[2024-08-23 12:00] LABS: Mean Platelet Volume 11.1 fL (9.4-12.3); Platelet Count 113 X10*3/uL (160-400)
[2024-08-23 13:31] LABS: MANUAL DIFF FLAG NO
[2024-08-23 13:35] LABS: Eosinophils Percent Auto 0.4 % (0-4); Hematocrit 33.7 % (37.0-47.0); Hemoglobin 11.5 g/dl (12.0-16.0); Imm Gran Abs Auto 0.01 X10*3/uL (0.00-0.03); Imm Gran Pct Auto 0.4 % (0.0-0.4); Lymphocytes Absolute Auto 0.2 X10*3/uL (1.2-4.9); Lymphocytes Percent Auto 8.3 % (20-40); Mean Corpuscular HGB Conc 34.1 g/dl (31.0-35.0); Mean Corpuscular Hemoglobin 29.6 pg (27.0-33.0); Mean Corpuscular Volume 86.6 fL (80.0-98.0); Mean Platelet Volume 10.6 fL (9.4-12.3); Monocytes Absolute Auto 0.1 X10*3/uL (0.1-1.2); Monocytes Percent Auto 4.5 % (2-11); Neutrophils Absolute Auto 2.3 x10*3/uL (2.0-8.3); Neutrophils Percent Auto 86.4 % (45-73); Platelet Count 105 X10*3/uL (160-400); Red Blood Count 3.89 X10*6/uL (4.20-5.50); Red Cell Distribution Width 12.8 % (11.0-16.0); White Blood Count 2.7 X10*3/uL (4.8-10.8)
--- NOTE | 2024-08-23 15:24 | HO.PM.IMPN ---
Subjective Subjective Date of Service: 08/23/24 Interval History: seen and examined this morning Follow-up for norovirus Patient reports increasing abdominal pain, improvement diarrhea has fever documented last night and this morning Review of Systems Review of Systems: Yes all other systems are reviewed and are negative Constitutional Constitutional: Reports fever(s) Gastrointestinal Gastrointestinal: Reports abdominal pain, Denies diarrhea and Denies vomiting Physical Exam Vital Signs: Vital Signs: Last Vital Signs Temp 99 F 08/23/24 15:02 Pulse 88 08/23/24 15:02 Resp 18 08/23/24 15:02 BP 126/65 08/23/24 15:02 Pulse Ox 92 08/23/24 15:02 O2 Del Method Room Air 08/23/24 15:02 BMI result Body Mass Index 26.9 Const: Other: awake alert appears uncomfortable Nutritional Appearance: average body habitus Orientation/consciousness: patient oriented x3 Resp: Effort & Inspection: normal respiratory effort, able to speak in complete sentences, no respiratory distress and no use of accessory muscles Cardio: Rate: regular rate GI: Inspection: No distended Palpation (GI): Soft to palpation Neuro: General: patient oriented x3 and moves all extremities Objective Data Active Medications Acetaminophen (Acetaminophen 325 Mg Tablet) 650 mg PO Q6H PRN PRN Reason: Pain, Mild 1-3,fever,headache Last Admin: 08/23/24 09:21 Dose: 650 mg Documented By: JACINTO Apixaban (Apixaban 5 Mg Tablet) 5 mg PO BID [facility] Last Admin: 08/23/24 09:21 Dose: 5 mg Documented By: JACINTO Calcium Carbonate (Calcium Carbonate 750 Mg Tab.Chew) 750 mg PO Q4H PRN PRN Reason: Heartburn Diphenhydramine HCl (Diphenhydramine Hcl 50 Mg/Ml Vial) 25 mg IVPUSH Q6H PRN PRN Reason: Itching Last Admin: 08/23/24 11:00 Dose: 25 mg Documented By: JACINTO Fluticasone/Vilanterol (Fluticasone/Vilanterol 200/25 Blst.W.Dev) 1 puff INHALE Q24H [facility] Last Admin: 08/23/24 08:08 Dose: 1 puff Documented By: MO Hydromorphone HCl (Hydromorphone Hcl 1 Mg/Ml Syringe) 1 mg IVPUSH Q6H PRN; Protocol PRN Reason: Pain, Severe (Pain Scale 7-10) Last Admin: 08/23/24 10:59 Dose: 1 mg Documented By: JACINTO Levetiracetam 750 mg/ Sodium (Chloride) 107.5 mls @ 430 mls/hr IV Q12H [facility] Last Infusion: 08/23/24 11:30 Dose: Infused Documented By: JACINTO Nutrition (Parenteral) (Parenteral Nutrition) 1,920 mls @ 80 mls/hr IV .Q24H [facility]; Protocol Stop: 08/23/24 20:59 Last Admin: 08/22/24 22:01 Dose: 80 mls/hr Documented By: HERNÁN Nutrition (Parenteral) (Parenteral Nutrition) 1,920 mls @ 80 mls/hr IV .Q24H [facility]; Protocol Stop: 08/24/24 20:59 Acetaminophen (Ofirmev) 1,000 mg in 100 mls @ 400 mls/hr IV ONCE ONE Stop: 08/23/24 15:44 Magnesium Hydroxide (Milk Of Magnesia 30 Ml Oral.Susp) 30 ml PO DAILY PRN PRN Reason: Constipation Melatonin (Melatonin 3 Mg Tablet) 6 mg PO BEDTIME PRN PRN Reason: Insomnia Ondansetron HCl (Ondansetron Hcl 4 Mg/2 Ml Vial) 4 mg IVPUSH Q6H PRN PRN Reason: Nausea and Vomiting Last Admin: 08/23/24 11:14 Dose: 4 mg Documented By: JACINTO Pharmacy Consult (Consult Rx Parenteral Nutrition Ordering) 1 each MISCELLANE DAILY PRN PRN Reason: Consult order Promethazine HCl (Promethazine Hcl 25 Mg Tablet) 25 mg PO QID PRN PRN Reason: Nausea And Vomiting Last Admin: 08/20/24 23:20 Dose: 25 mg Documented By: JUANITA Sodium Chloride (0.9 % Sodium Chloride Flush 3 Ml Syringe) 3 ml IVFLUSH QSHIFT [facility] Last Admin: 08/23/24 09:22 Dose: 3 ml Documented By: JACINTO Tiotropium [place] (Tiotropium [place] 2.5 Mcg 1 Puff/2.5 Mcg Mist.Inhal) 2 puff INHALE RDAILY [facility] Last Admin: 08/23/24 08:08 Dose: 2 puff Documented By: MO Labs 08/23/24 13:24 08/23/24 06:13 Labs: Laboratory Results - last 24 hr 08/23/24 08/23/24 08/23/24 06:13 08:27 11:14 MCV 86.4 MCH 29.5 MCHC 34.1 RDW 12.8 Plt Count 113 L D MPV 11.1 Immature Gran % (Auto) 0.4 Neut % (Auto) 84.7 H Lymph % (Auto) 7.4 L Boyd % (Auto) 6.7 Eos % (Auto) 0.4 Baso % (Auto) 0.4 Lymph # (Auto) 0.2 L Boyd # (Auto) 0.2 Eos # (Auto) 0.0 Baso # (Auto) 0.0 Abs Immat Gran (auto) 0.01 Absolute Neuts (auto) 2.4 Absolute Nucleated RBC 0.000 Nucleated RBC % (auto) 0.0 Anion Gap 12 Estim Creat Clear Calc 96.7 Estimated GFR > 60 Random Glucose 109 Lactic Acid 1.6 Calcium 8.3 L Phosphorus 3.4 Magnesium 2.4 Albumin 3.6 Triglycerides 43 08/23/24 13:24 MCV 86.6 MCH 29.6 MCHC 34.1 RDW 12.8 Plt Count 105 L MPV 10.6 Immature Gran % (Auto) 0.4 Neut % (Auto) 86.4 H Lymph % (Auto) 8.3 L Boyd % (Auto) 4.5 Eos % (Auto) 0.4 Baso % (Auto) 0.0 Lymph # (Auto) 0.2 L Boyd # (Auto) 0.1 Eos # (Auto) 0.0 Baso # (Auto) 0.0 Abs Immat Gran (auto) 0.01 Absolute Neuts (auto) 2.3 Absolute Nucleated RBC 0.000 Nucleated RBC % (auto) 0.0 Anion Gap Estim Creat Clear Calc Estimated GFR Random Glucose Lactic Acid Calcium Phosphorus Magnesium Albumin Triglycerides Microbiology Microbiology Results: Microbiology 08/23/24 10:44 Blood Culture - Final Blood - Central Line Assessment and Plan (1) Colitis: Status: Acute Plan 44 yo F with multiple medical problems presenting with a 1 day history of abdominal pain associated with nausea/vomiting/diarrhea. CT showing possible colitis. Admitted for further work up and treatment. sepsis meets sepsis criteria with fever, leukopenia, tachycardia probable ?viral due to norovirus vs viral pneumonia lactic acid within normal limits repeat blood cultures pending empiric antibiotics ordered Diarrhea due to Norovirus supportive care with IVF, anti-emetics, IV analgesics other stool studies neg and cdiff pancytopenia ?due to viral illness follow CBC possible pneumonia seen on imaging, no cough, no hypoxia possibly viral, respiratory pathogen panel pending will cover with empiric antibiotics svc obstruction, chronic incidental on imaging, known to pt Chronic pain on PO dilaudid at home getting IV dilaudid here Crohn's disease not currently on therapy receives TPN at home, will continue has TPN port History of PE/DVT previously on eliquis -- do not see it on claim history continue Eliquis for now History of seizure d/o continue Keppra Full Code DVT pptx - Eliquis Pt requires ongoing inpatient stay for pneumonia,severe abdominal pain and nausea requiring multiple doses of IV treatment + CT concerning for possible colitis, complicated by underlying crohn's, bachet's, chronic pain syndrome and chronic TPN use Quality Stroke Does the patient have a stroke diagnosis?: No VTE Prior VTE?: No VTE Risk Level:: Medical - moderate - high VTE Device Contraindication: N/A - Device Ordered VTE Drug Contraindication: N/A - Med Ordered
[2024-08-23] MEDS: Acetaminophen 1,000 MG/100 ML PIGGYBACK 400 MG IV (15:32)
[2024-08-23] MEDS: cefTRIAXone sodium 1 GM VIAL IVPUSH (16:08)
[2024-08-23] MEDS: Azithromycin 500 MG in 0.9 % Sodium Chloride 250 ML 125 MG IV (17:08)
[2024-08-23] MEDS: Parenteral Nutrition 1,920 ML 80 ML IV (22:43)
[2024-08-24] MEDS: HYDROmorphone HCl 1 MG/ML SYRINGE IVPUSH ×3 (05:08→17:22)
[2024-08-24] MEDS: diphenhydrAMINE HCL 50 MG/ML VIAL 25 MG IVPUSH ×3 (05:09→17:28)
[2024-08-24] MEDS: ondansetron HCL 4 MG/2 ML VIAL IVPUSH ×3 (05:09→17:27)
[2024-08-24 05:59] VITALS: BP 110/62; PULSE 86; RESP 18; TEMP 36.7; O2SAT 94
[2024-08-24 06:36] LABS: Hematocrit 34.7 % (37.0-47.0); Hemoglobin 11.7 g/dl (12.0-16.0); Mean Corpuscular HGB Conc 33.7 g/dl (31.0-35.0); Mean Corpuscular Hemoglobin 29.5 pg (27.0-33.0); Mean Corpuscular Volume 87.6 fL (80.0-98.0); Mean Platelet Volume 11.9 fL (9.4-12.3); Platelet Count 106 X10*3/uL (160-400); Red Blood Count 3.96 X10*6/uL (4.20-5.50); Red Cell Distribution Width 12.8 % (11.0-16.0)
[2024-08-24 06:37] LABS: White Blood Count 2.2 X10*3/uL (4.8-10.8)
[2024-08-24 06:58] LABS: Albumin Level 3.5 g/dL (3.5-5.0); Anion Gap 9 (12-20); Blood Urea Nitrogen 14 mg/dL (9-16); Carbon Dioxide 25 mmol/L (22-29); Chloride 107 mmol/L (96-108); Creatinine Clr Calc Pharmacy 93.8; Estimated Glomerular Filt Rate > 60; Glucose Random 115 mg/dL (60-115); Magnesium 2.4 mg/dL (1.6-2.6); Phosphorus 2.2 mg/dL (2.7-4.5); Potassium 3.8 mmol/L (3.3-5.1); Sodium 137 mmol/L (135-145)
[2024-08-24 07:58] VITALS: BP 101/56; PULSE 82; RESP 16; TEMP 37.8; O2SAT 90
[2024-08-24 08:07] VITALS: PULSE 82; RESP 16; O2SAT 93
[2024-08-24] MEDS: Tiotropium Bromide 2.5 mcg 1 PUFF/2.5 MCG MIST.INHAL 2 PUFF INHALE (08:07)
[2024-08-24] MEDS: Fluticasone/Vilanterol 200/25 BLST.W.DEV 1 PUFF INHALE (08:07)
[2024-08-24 08:42] LABS: Adenovirus PCR Not Detected (Not Detect.); Bordetella parapertussis PCR Not Detected (Not Detect.); Bordetella pertussis PCR Not Detected (Not Detect.); Chlamydia pneumoniae PCR Not Detected (Not Detect.); Coronavirus 229E PCR Not Detected (Not Detect.); Coronavirus HKU1 PCR Not Detected (Not Detect.); Coronavirus NL63 PCR Not Detected (Not Detect.); Coronavirus OC43 PCR Not Detected (Not Detect.); Human metapneumovirus PCR Not Detected (Not Detect.); Influenza A H1-2009 PCR Detected (Not Detect.); Influenza B PCR Not Detected (Not Detect.); Mycoplasma pneumoniae PCR Not Detected (Not Detect.); Parainfluenza 1 PCR Not Detected (Not Detect.); Parainfluenza 2 PCR Not Detected (Not Detect.); Parainfluenza 3 PCR Not Detected (Not Detect.); Parainfluenza 4 PCR Not Detected (Not Detect.); RSV PCR Not Detected (Not Detect.); Rhino/Enterovirus PCR Not Detected (Not Detect.)
[2024-08-24 09:05] LABS: Influenza A H1 PCR Not Detected (Not Detect.); Influenza A H3 PCR Not Detected (Not Detect.); Influenza A PCR Detected (Not Detect.); SARS-CoV-2 PCR Not Detected (Not Detect.)
[2024-08-24] MEDS: Apixaban 5 MG TABLET PO ×2 (10:44→22:56)
--- NOTE | 2024-08-24 10:53 | MHC.CLN ---
F/U PT IS ON CLEAR LIQUID DIET PO INTAKE POOR <25% REVIEWED LABS; TRIGS 43 DISCUSSED WITH PHARMACY RECOMMEND TPN AT 80 ML PER HOUR TO PROVIDE 960 KCALS, 70G PROTEIN (1.4 G/KG IBW), 200 G DEXTROSE REPLETE LYTES NEEDED NO LIPIDS ON TUESDAY MONITOR PO INTAKE, TPN TOLERANCE AND LYTES RD CAN BE REACHED VIA TIGER CONNECT DURING OFF HOURS IF NEEDED 08/25 & 08/26 PLAN TO RE-START LIPIDS (50G LIPIDS) OVER WEEKEND WILL PROVIDE 1460 TOTAL KCALS-PHARMACY AWARE
--- NOTE | 2024-08-24 11:00 | MHC.CM.PN ---
Per MD rounds patient not medically cleared for dc. Will stay over the weekend. [facility] updated.
[2024-08-24] MEDS: Oseltamivir Phosphate 75 MG CAPSULE PO ×2 (11:22→23:05)
[2024-08-24] MEDS: levETIRAcetam 750 MG in 0.9 % Sodium Chloride 100 ML 430 MG IV (11:24)
[2024-08-24 14:00] VITALS: BP 93/51; PULSE 73; RESP 18; TEMP 36.3; O2SAT 97
[2024-08-24] MEDS: Lactated Ringers 500 ML IVCONT (15:46)
[2024-08-24] MEDS: 0.9 % Sodium Chloride Flush 3 ML SYRINGE IVFLUSH (17:28)
[2024-08-24] MEDS: Azithromycin 500 MG in 0.9 % Sodium Chloride 250 ML 125 MG IV (17:28)
[2024-08-24] MEDS: cefTRIAXone sodium 1 GM VIAL IVPUSH (17:28)
--- NOTE | 2024-08-24 17:48 | HO.PM.IMPN ---
Subjective Subjective Date of Service: 08/24/24 Interval History: Seen and examined this morning Follow-up for abdominal pain, norovirus, pneumonia-respiratory pathogen panel positive for influenza reporting dry cough Review of Systems Review of Systems: Yes all other systems are reviewed and are negative Constitutional Constitutional: Denies chills and Denies fever(s) Cardiovascular Cardiovascular: Denies chest pain, Denies palpitations and Denies dyspnea Respiratory Respiratory: Reports cough and Denies dyspnea Gastrointestinal Gastrointestinal: Reports abdominal pain, Denies nausea and Denies vomiting Endocrine Endocrine: Denies palpitations Physical Exam Vital Signs: Vital Signs: Last Vital Signs Temp 97.4 F 08/24/24 14:00 Pulse 73 08/24/24 14:00 Resp 18 08/24/24 14:00 BP 93/51 L 08/24/24 14:00 Pulse Ox 97 08/24/24 14:00 O2 Del Method Nasal Cannula 08/24/24 14:00 O2 Flow Rate 1.0 08/24/24 14:00 BMI result Body Mass Index 26.9 Const: Other: awake alert appears uncomfortable Nutritional Appearance: average body habitus Orientation/consciousness: patient oriented x3 Resp: Other: right side rhonchi Effort & Inspection: normal respiratory effort, able to speak in complete sentences, no respiratory distress and no use of accessory muscles Cardio: Rate: regular rate GI: Inspection: No distended Palpation (GI): Soft to palpation Neuro: General: patient oriented x3 and moves all extremities Objective Data Active Medications Acetaminophen (Acetaminophen 325 Mg Tablet) 650 mg PO Q6H PRN PRN Reason: Pain, Mild 1-3,fever,headache Last Admin: 08/23/24 09:21 Dose: 650 mg Documented By: JACINTO Apixaban (Apixaban 5 Mg Tablet) 5 mg PO BID [facility] Last Admin: 08/24/24 10:44 Dose: 5 mg Documented By: HARRIETT Calcium Carbonate (Calcium Carbonate 750 Mg Tab.Chew) 750 mg PO Q4H PRN PRN Reason: Heartburn Ceftriaxone Sodium (Ceftriaxone Sodium 1 Gm Vial) 1 gm IVPUSH Q24H [facility] Last Admin: 08/24/24 17:28 Dose: 1 gm Documented By: CIRILO Diphenhydramine HCl (Diphenhydramine Hcl 50 Mg/Ml Vial) 25 mg IVPUSH Q6H PRN PRN Reason: Itching Last Admin: 08/24/24 17:28 Dose: 25 mg Documented By: CIRILO Fluticasone/Vilanterol (Fluticasone/Vilanterol 200/25 Blst.W.Dev) 1 puff INHALE Q24H [facility] Last Admin: 08/24/24 08:07 Dose: 1 puff Documented By: PAOLA Hydromorphone HCl (Hydromorphone Hcl 1 Mg/Ml Syringe) 1 mg IVPUSH Q6H PRN; Protocol PRN Reason: Pain, Severe (Pain Scale 7-10) Last Admin: 08/24/24 17:22 Dose: 1 mg Documented By: CIRILO Levetiracetam 750 mg/ Sodium (Chloride) 107.5 mls @ 430 mls/hr IV Q12H [facility] Last Infusion: 08/24/24 11:55 Dose: Infused Documented By: HARIRETT Nutrition (Parenteral) (Parenteral Nutrition) 1,920 mls @ 80 mls/hr IV .Q24H [facility]; Protocol Stop: 08/24/24 20:59 Last Admin: 08/23/24 22:43 Dose: 80 mls/hr Documented By: JANELLE Azithromycin 500 mg/ Sodium (Chloride) 250 mls @ 125 mls/hr IV Q24H [facility] Last Admin: 08/24/24 17:28 Dose: 125 mls/hr Documented By: CIRILO Nutrition (Parenteral) (Parenteral Nutrition) 1,920 mls @ 80 mls/hr IV .Q24H [facility]; Protocol Stop: 08/25/24 20:59 Magnesium Hydroxide (Milk Of Magnesia 30 Ml Oral.Susp) 30 ml PO DAILY PRN PRN Reason: Constipation Melatonin (Melatonin 3 Mg Tablet) 6 mg PO BEDTIME PRN PRN Reason: Insomnia Ondansetron HCl (Ondansetron Hcl 4 Mg/2 Ml Vial) 4 mg IVPUSH Q6H PRN PRN Reason: Nausea and Vomiting Last Admin: 08/24/24 17:27 Dose: 4 mg Documented By: CIRILO Oseltamivir Phosphate (Oseltamivir Phosphate 75 Mg Capsule) 75 mg PO Q12H [facility] Stop: 08/29/24 00:01 Last Admin: 08/24/24 11:22 Dose: 75 mg Documented By: HARRIETT Pharmacy Consult (Consult Rx Parenteral Nutrition Ordering) 1 each MISCELLANE DAILY PRN PRN Reason: Consult order Promethazine HCl (Promethazine Hcl 25 Mg Tablet) 25 mg PO QID PRN PRN Reason: Nausea And Vomiting Last Admin: 08/20/24 23:20 Dose: 25 mg Documented By: JUANITA Sodium Chloride (0.9 % Sodium Chloride Flush 3 Ml Syringe) 3 ml IVFLUSH QSHIFT [facility] Last Admin: 08/24/24 17:28 Dose: 3 ml Documented By: CIRILO Tiotropium [place] (Tiotropium [place] 2.5 Mcg 1 Puff/2.5 Mcg Mist.Inhal) 2 puff INHALE RDAILY [facility] Last Admin: 08/24/24 08:07 Dose: 2 puff Documented By: PAOLA Labs 08/24/24 05:28 08/24/24 05:28 Labs: Laboratory Results - last 24 hr 08/23/24 08/24/24 15:00 05:28 MCV 87.6 MCH 29.5 MCHC 33.7 RDW 12.8 Plt Count 106 L MPV 11.9 Absolute Nucleated RBC 0.000 Nucleated RBC % (auto) 0.0 Anion Gap 9 L Estim Creat Clear Calc 93.8 Estimated GFR > 60 Random Glucose 115 Calcium 8.0 L Phosphorus 2.2 L Magnesium 2.4 Albumin 3.5 Respiratory Panel Retana See Note Adenovirus (Rapid PCR) Not Detected B.pert (TEM-PCR) Not Detected B.parapertussis DNA PCR Not Detected C. pneumoniae DNA (PCR) Not Detected Coronavirus OC43 (PCR) Not Detected Coronavirus HKU1 (PCR) Not Detected Coronavirus 229E (PCR) Not Detected Coronavirus NL63 (PCR) Not Detected Human Metapneumovir PCR Not Detected Influenza A (RT-PCR) Detected A Influenza A (H1) PCR Not Detected Influ A (H1/09) PCR Detected A Influenza A (H3) PCR Not Detected Influenza B (RT-PCR) Not Detected M. pneumoniae (PCR) Not Detected Parainfluenza 1 (PCR) Not Detected Parainfluenza 2 (PCR) Not Detected Parainfluenza 3 (PCR) Not Detected Parainfluenza 4 (PCR) Not Detected RSV (PCR) Not Detected Entero/Rhino (PCR) Not Detected SARS-CoV-2 RNA (RT-PCR) Not Detected Microbiology Microbiology Results: Microbiology 08/23/24 13:24 Blood Culture - Preliminary Blood - Venous No growth after 24 hours. 08/23/24 11:14 Blood Culture - Preliminary Blood - Central Line No growth after 24 hours. 08/23/24 09:49 Blood Culture - Preliminary Blood - Venous No growth after 24 hours. 08/23/24 10:44 Blood Culture - Final Blood - Central Line Assessment and Plan (1) Influenza A: Status: Acute (2) Norovirus: Status: Acute Plan 44 yo F with multiple medical problems presenting with a 1 day history of abdominal pain associated with nausea/vomiting/diarrhea. CT showing possible colitis. Admitted for further work up and treatment. sepsis meets sepsis criteria with fever, leukopenia, tachycardia probable ?viral due to norovirus and viral pneumonia lactic acid within normal limits repeat blood cultures pending empiric antibiotics ordered Diarrhea due to Norovirus. improving supportive care with IVF, anti-emetics, IV analgesics remainder of GI panel and cdiff negative pancytopenia likely due to acute viral illness follow CBC influenza A start tamiflu symptomatic support viral pneumonia see above continue empiric antibiotics svc obstruction, chronic incidental on imaging, known to pt Chronic pain on PO dilaudid at home getting IV dilaudid here Crohn's disease not currently on therapy receives TPN at home, will continue has TPN port History of PE/DVT previously on eliquis -- do not see it on claim history continue Eliquis for now History of seizure d/o continue Keppra Full Code DVT pptx - Eliquis Pt requires ongoing inpatient stay for pneumonia,severe abdominal pain and nausea requiring multiple doses of IV treatment + CT concerning for possible colitis, complicated by underlying crohn's, bachet's, chronic pain syndrome and chronic TPN use Quality Stroke Does the patient have a stroke diagnosis?: No VTE Prior VTE?: No VTE Risk Level:: Medical - moderate - high VTE Device Contraindication: N/A - Device Ordered VTE Drug Contraindication: N/A - Med Ordered
[2024-08-24] MEDS: guaiFENesin DM 200/20/10 ML 10 ML SYRUP PO (18:07)
[2024-08-24] MEDS: Lactated Ringers 1,000 ML 100 ML IVCONT (18:07)
[2024-08-24 22:00] VITALS: BP 107/60; PULSE 79; RESP 18; TEMP 37.1; O2SAT 93
[2024-08-24] MEDS: Parenteral Nutrition 1,920 ML 80 ML IV (22:56)
[2024-08-25] MEDS: ondansetron HCL 4 MG/2 ML VIAL IVPUSH ×4 (00:13→22:00)
[2024-08-25] MEDS: diphenhydrAMINE HCL 50 MG/ML VIAL 25 MG IVPUSH ×4 (00:13→22:00)
[2024-08-25] MEDS: HYDROmorphone HCl 1 MG/ML SYRINGE IVPUSH ×4 (00:14→22:00)
[2024-08-25 00:50] VITALS: RESP 16
[2024-08-25] MEDS: levETIRAcetam 750 MG in 0.9 % Sodium Chloride 100 ML 430 MG IV ×3 (00:55→22:02)
[2024-08-25] MEDS: 0.9 % Sodium Chloride Flush 3 ML SYRINGE IVFLUSH ×2 (01:05→17:33)
[2024-08-25] MEDS: guaiFENesin DM 200/20/10 ML 10 ML SYRUP PO ×2 (02:53→13:38)
[2024-08-25 03:32] VITALS: BP 100/61; PULSE 75; RESP 16; TEMP 36.8; O2SAT 96
[2024-08-25 05:59] LABS: PLT CLUMP 1
[2024-08-25 06:01] LABS: Hematocrit 32.9 % (37.0-47.0); Mean Corpuscular HGB Conc 33.4 g/dl (31.0-35.0); Mean Corpuscular Hemoglobin 29.4 pg (27.0-33.0); Mean Platelet Volume 12.1 fL (9.4-12.3); Red Blood Count 3.74 X10*6/uL (4.20-5.50)
[2024-08-25 06:03] LABS: Platelet Count 89 X10*3/uL (160-400); White Blood Count 2.9 X10*3/uL (4.8-10.8)
[2024-08-25 06:17] LABS: Albumin Level 3.2 g/dL (3.5-5.0); Anion Gap 10 (12-20); Blood Urea Nitrogen 14 mg/dL (9-16); Calcium 7.8 mg/dL (8.4-10.2); Carbon Dioxide 27 mmol/L (22-29); Chloride 108 mmol/L (96-108); Creatinine Clr Calc Pharmacy 96.7; Estimated Glomerular Filt Rate > 60; Glucose Random 110 mg/dL (60-115); Magnesium 2.4 mg/dL (1.6-2.6); Phosphorus 2.9 mg/dL (2.7-4.5); Potassium 4.2 mmol/L (3.3-5.1); Sodium 141 mmol/L (135-145)
[2024-08-25 07:20] VITALS: BP 90/54; PULSE 77; RESP 24; TEMP 36.9; O2SAT 96
[2024-08-25 07:55] VITALS: BP 107/57; PULSE 78; RESP 20
[2024-08-25] MEDS: Lactated Ringers 1,000 ML 125 ML IVCONT ×2 (07:58→17:27)
[2024-08-25] MEDS: Apixaban 5 MG TABLET PO ×2 (08:04→22:01)
[2024-08-25] MEDS: Tiotropium Bromide 2.5 mcg 1 PUFF/2.5 MCG MIST.INHAL 2 PUFF INHALE (08:11)
[2024-08-25] MEDS: Fluticasone/Vilanterol 200/25 BLST.W.DEV 1 PUFF INHALE (08:12)
[2024-08-25 08:16] VITALS: PULSE 78; RESP 18
[2024-08-25] MEDS: Oseltamivir Phosphate 75 MG CAPSULE PO ×2 (13:17→23:56)
[2024-08-25] MEDS: Butalb/Acetamin/Caff 50/325/40 TABLET 1 TAB PO (13:52)
[2024-08-25 14:00] VITALS: BP 109/55; PULSE 82; RESP 17; TEMP 37.1; O2SAT 95
--- NOTE | 2024-08-25 15:33 | HO.PM.IMPN ---
Subjective Subjective Date of Service: 08/25/24 Interval History: seen and examined this morning Follow-up for abdominal pain, norovirus, influenza +cough, mild sob no significant diarrhea not eating much Review of Systems Review of Systems: Yes all other systems are reviewed and are negative Constitutional Constitutional: Denies chills and Denies fever(s) Cardiovascular Cardiovascular: Denies chest pain and Denies palpitations Endocrine Endocrine: Denies palpitations Physical Exam Vital Signs: Vital Signs: Last Vital Signs Temp 98.7 F 08/25/24 14:00 Pulse 82 08/25/24 14:00 Resp 17 08/25/24 14:00 BP 109/55 L 08/25/24 14:00 Pulse Ox 95 08/25/24 14:00 O2 Del Method Room Air 08/25/24 14:00 O2 Flow Rate 1 08/25/24 07:20 BMI result Body Mass Index 26.9 Const: Other: General: alert and awake Nutritional Appearance: average body habitus Orientation/consciousness: patient oriented x3 HEENT: Other: dry MM Resp: Other: right side rhonchi Effort & Inspection: normal respiratory effort, able to speak in complete sentences, no respiratory distress and no use of accessory muscles Cardio: Rate: regular rate GI: Inspection: No distended Palpation (GI): Soft to palpation Neuro: General: patient oriented x3 and moves all extremities Objective Data Active Medications Acetaminophen (Acetaminophen 325 Mg Tablet) 650 mg PO Q6H PRN PRN Reason: Pain, Mild 1-3,fever,headache Last Admin: 08/23/24 09:21 Dose: 650 mg Documented By: JACINTO Acetaminophen/Butalbital/Caffeine (Butalb/Acetamin/Caff 50/325/40 Tablet) 1 tab PO Q4H PRN PRN Reason: Headache Last Admin: 08/25/24 13:52 Dose: 1 tab Documented By: JACINTO Apixaban (Apixaban 5 Mg Tablet) 5 mg PO BID [facility] Last Admin: 08/25/24 08:04 Dose: 5 mg Documented By: JACINTO Calcium Carbonate (Calcium Carbonate 750 Mg Tab.Chew) 750 mg PO Q4H PRN PRN Reason: Heartburn Ceftriaxone Sodium (Ceftriaxone Sodium 1 Gm Vial) 1 gm IVPUSH Q24H [facility] Last Admin: 08/24/24 17:28 Dose: 1 gm Documented By: CIRILO Diphenhydramine HCl (Diphenhydramine Hcl 50 Mg/Ml Vial) 25 mg IVPUSH Q6H PRN PRN Reason: Itching Last Admin: 08/25/24 14:46 Dose: 25 mg Documented By: JACINTO Fluticasone/Vilanterol (Fluticasone/Vilanterol 200/25 Blst.W.Dev) 1 puff INHALE Q24H [facility] Last Admin: 08/25/24 08:12 Dose: 1 puff Documented By: JIMMY Guaifenesin/Dextromethorphan (Guaifenesin Dm 200/20/10 Ml 10 Ml Syrup) 10 ml PO Q6H PRN PRN Reason: Cough Last Admin: 08/25/24 13:38 Dose: 10 ml Documented By: JACINTO Hydromorphone HCl (Hydromorphone Hcl 1 Mg/Ml Syringe) 1 mg IVPUSH Q6H PRN; Protocol PRN Reason: Pain, Severe (Pain Scale 7-10) Last Admin: 08/25/24 14:52 Dose: 1 mg Documented By: JACINTO Levetiracetam 750 mg/ Sodium (Chloride) 107.5 mls @ 430 mls/hr IV Q12H [facility] Last Infusion: 08/25/24 13:35 Dose: Infused Documented By: JACINTO Azithromycin 500 mg/ Sodium (Chloride) 250 mls @ 125 mls/hr IV Q24H [facility] Last Infusion: 08/24/24 19:30 Dose: Infused Documented By: CIRILO Nutrition (Parenteral) (Parenteral Nutrition) 1,920 mls @ 80 mls/hr IV .Q24H [facility]; Protocol Stop: 08/25/24 20:59 Last Admin: 08/24/24 22:56 Dose: 80 mls/hr Documented By: CIRILO Lactated Ringer's (Lr) 1,000 mls @ 125 mls/hr IVCONT .Q8H [facility] Last Admin: 08/25/24 07:58 Dose: 125 mls/hr Documented By: JACINTO Nutrition (Parenteral) (Parenteral Nutrition) 1,920 mls @ 80 mls/hr IV .Q24H [facility]; Protocol Stop: 08/26/24 20:59 Magnesium Hydroxide (Milk Of Magnesia 30 Ml Oral.Susp) 30 ml PO DAILY PRN PRN Reason: Constipation Melatonin (Melatonin 3 Mg Tablet) 6 mg PO BEDTIME PRN PRN Reason: Insomnia Ondansetron HCl (Ondansetron Hcl 4 Mg/2 Ml Vial) 4 mg IVPUSH Q6H PRN PRN Reason: Nausea and Vomiting Last Admin: 08/25/24 14:48 Dose: 4 mg Documented By: JACINTO Oseltamivir Phosphate (Oseltamivir Phosphate 75 Mg Capsule) 75 mg PO Q12H [facility] Stop: 08/29/24 00:01 Last Admin: 08/25/24 13:17 Dose: 75 mg Documented By: JACINTO Pharmacy Consult (Consult Rx Parenteral Nutrition Ordering) 1 each MISCELLANE DAILY PRN PRN Reason: Consult order Promethazine HCl (Promethazine Hcl 25 Mg Tablet) 25 mg PO QID PRN PRN Reason: Nausea And Vomiting Last Admin: 08/20/24 23:20 Dose: 25 mg Sodium Chloride (0.9 % Sodium Chloride Flush 3 Ml Syringe) 3 ml IVFLUSH QSHIFT [facility] Last Admin: 08/25/24 08:06 Dose: Not Given Documented By: JACINTO Non-Admin Reason: IV Running Tiotropium [place] (Tiotropium [place] 2.5 Mcg 1 Puff/2.5 Mcg Mist.Inhal) 2 puff INHALE RDAILY [facility] Last Admin: 08/25/24 08:11 Dose: 2 puff Documented By: BRYANOVIJUNE Labs 08/25/24 05:10 08/25/24 05:10 Labs: Laboratory Results - last 24 hr 08/25/24 05:10 MCV 88.0 MCH 29.4 MCHC 33.4 RDW 13.0 Plt Count 89 L MPV 12.1 Absolute Nucleated RBC 0.000 Nucleated RBC % (auto) 0.0 Anion Gap 10 L Estim Creat Clear Calc 96.7 Estimated GFR > 60 Random Glucose 110 Calcium 7.8 L Phosphorus 2.9 Magnesium 2.4 Albumin 3.2 L Microbiology Microbiology Results: Microbiology 08/23/24 13:24 Blood Culture - Preliminary Blood - Venous No growth after 48 hours. 08/23/24 11:14 Blood Culture - Preliminary Blood - Central Line No growth after 48 hours. 08/23/24 09:49 Blood Culture - Preliminary Blood - Venous No growth after 48 hours. Assessment and Plan (1) Norovirus: Status: Acute (2) Influenza A: Status: Acute Plan 44 yo F with multiple medical problems presenting with a 1 day history of abdominal pain associated with nausea/vomiting/diarrhea. CT showing possible colitis found to have norovirus and influenza sepsis meets sepsis criteria with fever, leukopenia, tachycardia probable ?viral sepsis due to norovirus and viral pneumonia lactic acid within normal limits blood cultures negative Diarrhea due to Norovirus. resolved remainder of GI panel and cdiff negative pancytopenia likely due to acute viral illness follow CBC influenza A tamiflu symptomatic support viral pneumonia see above continue empiric antibiotics svc obstruction, chronic incidental on imaging, known to pt Chronic pain on PO dilaudid at home getting IV dilaudid here Crohn's disease not currently on therapy receives TPN at home, will continue has TPN port History of PE/DVT previously on eliquis -- do not see it on claim history continue Eliquis for now History of seizure d/o continue Kedarrianra Full Code DVT pptx - Eliquis Pt requires ongoing inpatient stay for pneumonia,severe abdominal pain and nausea requiring multiple doses of IV treatment + CT concerning for possible colitis, complicated by underlying crohn's, bachet's, chronic pain syndrome and chronic TPN use Quality Stroke Does the patient have a stroke diagnosis?: No VTE Prior VTE?: No VTE Risk Level:: Medical - moderate - high VTE Device Contraindication: N/A - Device Ordered VTE Drug Contraindication: N/A - Med Ordered
[2024-08-25] MEDS: Azithromycin 500 MG in 0.9 % Sodium Chloride 250 ML 125 MG IV (17:27)
[2024-08-25] MEDS: cefTRIAXone sodium 1 GM VIAL IVPUSH (17:33)
[2024-08-25] MEDS: Parenteral Nutrition 1,920 ML 80 ML IV (22:01)
[2024-08-26] VITALS (7 sets, daily range): BP systolic 111–122; BP diastolic 52–67; PULSE 82–90; RESP 18–20; TEMP 36.8–37; O2SAT 89–94
[2024-08-26] MEDS: Lactated Ringers 1,000 ML 125 ML IVCONT (03:22)
[2024-08-26] MEDS: guaiFENesin DM 200/20/10 ML 10 ML SYRUP PO ×2 (04:12→23:52)
[2024-08-26] MEDS: diphenhydrAMINE HCL 50 MG/ML VIAL 25 MG IVPUSH ×4 (04:12→22:23)
[2024-08-26] MEDS: ondansetron HCL 4 MG/2 ML VIAL IVPUSH ×4 (04:12→22:23)
[2024-08-26] MEDS: HYDROmorphone HCl 1 MG/ML SYRINGE IVPUSH ×4 (04:13→22:24)
[2024-08-26 06:35] LABS: MANUAL DIFF FLAG NO
[2024-08-26 06:55] LABS: Hematocrit 31.2 % (37.0-47.0); Hemoglobin 10.4 g/dl (12.0-16.0); Imm Gran Abs Auto 0.02 X10*3/uL (0.00-0.03); Imm Gran Pct Auto 0.7 % (0.0-0.4); Lymphocytes Absolute Auto 0.6 X10*3/uL (1.2-4.9); Lymphocytes Percent Auto 21.8 % (20-40); Mean Corpuscular HGB Conc 33.3 g/dl (31.0-35.0); Mean Corpuscular Hemoglobin 29.4 pg (27.0-33.0); Mean Corpuscular Volume 88.1 fL (80.0-98.0); Mean Platelet Volume 12.2 fL (9.4-12.3); Monocytes Absolute Auto 0.3 X10*3/uL (0.1-1.2); Monocytes Percent Auto 8.7 % (2-11); Neutrophils Percent Auto 68.8 % (45-73); Red Blood Count 3.54 X10*6/uL (4.20-5.50); Red Cell Distribution Width 12.7 % (11.0-16.0); White Blood Count 2.9 X10*3/uL (4.8-10.8)
[2024-08-26 06:57] LABS: Albumin Level 3.4 g/dL (3.5-5.0); Anion Gap 11 (12-20); Blood Urea Nitrogen 11 mg/dL (9-16); Carbon Dioxide 25 mmol/L (22-29); Chloride 106 mmol/L (96-108); Creatinine Clr Calc Pharmacy 101.4; Estimated Glomerular Filt Rate > 60; Glucose Random 132 mg/dL (60-115); Magnesium 2.2 mg/dL (1.6-2.6); Phosphorus 2.5 mg/dL (2.7-4.5); Platelet Count 83 X10*3/uL (160-400); Potassium 3.8 mmol/L (3.3-5.1); Sodium 138 mmol/L (135-145)
[2024-08-26] MEDS: Apixaban 5 MG TABLET PO ×2 (08:07→20:36)
[2024-08-26] MEDS: Fluticasone/Vilanterol 200/25 BLST.W.DEV 1 PUFF INHALE (08:27)
[2024-08-26] MEDS: Tiotropium Bromide 2.5 mcg 1 PUFF/2.5 MCG MIST.INHAL 2 PUFF INHALE (08:27)
[2024-08-26] MEDS: Oseltamivir Phosphate 75 MG CAPSULE PO ×2 (11:34→23:48)
[2024-08-26] MEDS: guaiFENesin LA 600 MG TAB.ER.12H PO ×2 (11:34→20:36)
[2024-08-26] MEDS: levETIRAcetam 750 MG in 0.9 % Sodium Chloride 100 ML 430 MG IV (11:35)
[2024-08-26] MEDS: Lactated Ringers 1,000 ML 100 ML IVCONT ×2 (11:35→20:35)
--- NOTE | 2024-08-26 15:04 | HO.PM.IMPN ---
Subjective Subjective Date of Service: 08/26/24 Interval History: Seen and this morning Follow-up for coronavirus, influenza a, pneumonia, pancytopenia Patient not feeling well, persistent cough, intermittent shortness of breath, body aches no further fever Review of Systems Review of Systems: Yes all other systems are reviewed and are negative Constitutional Constitutional: Denies chills and Denies fever(s) Cardiovascular Cardiovascular: Denies chest pain and Reports dyspnea Respiratory Respiratory: Reports cough and Reports dyspnea Gastrointestinal Gastrointestinal: Reports abdominal pain, Denies nausea and Denies vomiting Physical Exam Vital Signs: Vital Signs: Last Vital Signs Temp 98.2 F 08/26/24 14:00 Pulse 82 08/26/24 14:00 Resp 18 08/26/24 14:00 BP 122/67 08/26/24 14:00 Pulse Ox 94 08/26/24 14:00 O2 Del Method Nasal Cannula 08/26/24 14:00 O2 Flow Rate 1 08/26/24 14:00 BMI result Body Mass Index 26.9 Const: Other: General: alert and awake Nutritional Appearance: average body habitus Orientation/consciousness: patient oriented x3 HEENT: Other: dry MM Resp: Other: right side rhonchi Effort & Inspection: normal respiratory effort, able to speak in complete sentences, no respiratory distress and no use of accessory muscles Cardio: Rate: regular rate GI: Inspection: No distended Palpation (GI): Soft to palpation Neuro: General: patient oriented x3 and moves all extremities Objective Data Active Medications Acetaminophen (Acetaminophen 325 Mg Tablet) 650 mg PO Q6H PRN PRN Reason: Pain, Mild 1-3,fever,headache Last Admin: 08/23/24 09:21 Dose: 650 mg Documented By: JACINTO Acetaminophen/Butalbital/Caffeine (Butalb/Acetamin/Caff 50/325/40 Tablet) 1 tab PO Q4H PRN PRN Reason: Headache Last Admin: 08/25/24 13:52 Dose: 1 tab Documented By: JACINTO Albuterol/Ipratropium (Albuterol/Iprat 2.5/0.5mg 3 Ml Ampul.Neb) 3 ml INHALE RQ6H WHILE AWAKE [facility] Apixaban (Apixaban 5 Mg Tablet) 5 mg PO BID ANNA Last Admin: 08/26/24 08:07 Dose: 5 mg Documented By: KERI Calcium Carbonate (Calcium Carbonate 750 Mg Tab.Chew) 750 mg PO Q4H PRN PRN Reason: Heartburn Ceftriaxone Sodium (Ceftriaxone Sodium 1 Gm Vial) 1 gm IVPUSH Q24H [facility] Last Admin: 08/25/24 17:33 Dose: 1 gm Documented By: JACINTO Diphenhydramine HCl (Diphenhydramine Hcl 50 Mg/Ml Vial) 25 mg IVPUSH Q6H PRN PRN Reason: Itching Last Admin: 08/26/24 10:20 Dose: 25 mg Documented By: KERI Fluticasone/Vilanterol (Fluticasone/Vilanterol 200/25 Blst.W.Dev) 1 puff INHALE Q24H [facility] Last Admin: 08/26/24 08:27 Dose: 1 puff Documented By: MO Guaifenesin (Guaifenesin La 600 Mg Tab.Er.12h) 600 mg PO BID [facility] Last Admin: 08/26/24 11:34 Dose: 600 mg Documented By: KERI Guaifenesin/Dextromethorphan (Guaifenesin Dm 200/20/10 Ml 10 Ml Syrup) 10 ml PO Q6H PRN PRN Reason: Cough Last Admin: 08/26/24 04:12 Dose: 10 ml Documented By: JANELLE Hydromorphone HCl (Hydromorphone Hcl 1 Mg/Ml Syringe) 1 mg IVPUSH Q6H PRN; Protocol PRN Reason: Pain, Severe (Pain Scale 7-10) Last Admin: 08/26/24 10:20 Dose: 1 mg Documented By: KERI Levetiracetam 750 mg/ Sodium (Chloride) 107.5 mls @ 430 mls/hr IV Q12H [facility] Last Infusion: 08/26/24 12:13 Dose: Infused Documented By: KERI Azithromycin 500 mg/ Sodium (Chloride) 250 mls @ 125 mls/hr IV Q24H [facility] Last Infusion: 08/26/24 00:27 Dose: Infused Documented By: JANELLE Lactated Ringer's (Lr) 1,000 mls @ 100 mls/hr IVCONT .Q10H [facility] Last Admin: 08/26/24 11:35 Dose: 100 mls/hr Documented By: KERI Nutrition (Parenteral) (Parenteral Nutrition) 1,920 mls @ 80 mls/hr IV .Q24H [facility]; Protocol Stop: 08/26/24 20:59 Last Admin: 08/25/24 22:01 Dose: 80 mls/hr Documented By: JANELLE Nutrition (Parenteral) (Parenteral Nutrition) 1,920 mls @ 80 mls/hr IV .Q24H [facility]; Protocol Stop: 08/27/24 20:59 Magnesium Hydroxide (Milk Of Magnesia 30 Ml Oral.Susp) 30 ml PO DAILY PRN PRN Reason: Constipation Melatonin (Melatonin 3 Mg Tablet) 6 mg PO BEDTIME PRN PRN Reason: Insomnia Ondansetron HCl (Ondansetron Hcl 4 Mg/2 Ml Vial) 4 mg IVPUSH Q6H PRN PRN Reason: Nausea and Vomiting Last Admin: 08/26/24 10:20 Dose: 4 mg Documented By: KERI Oseltamivir Phosphate (Oseltamivir Phosphate 75 Mg Capsule) 75 mg PO Q12H [facility] Stop: 08/29/24 00:01 Last Admin: 08/26/24 11:34 Dose: 75 mg Documented By: KERI Pharmacy Consult (Consult Rx Parenteral Nutrition Ordering) 1 each MISCELLANE DAILY PRN PRN Reason: Consult order Promethazine HCl (Promethazine Hcl 25 Mg Tablet) 25 mg PO QID PRN PRN Reason: Nausea And Vomiting Last Admin: 08/20/24 23:20 Dose: 25 mg Sodium Chloride (0.9 % Sodium Chloride Flush 3 Ml Syringe) [facility] Last Admin: 08/26/24 08:08 Dose: Not Given Documented By: KERI Non-Admin Reason: IV Running Labs 08/26/24 06:29 08/26/24 06:29 Labs: Laboratory Results - last 24 hr 08/26/24 06:29 MCV 88.1 MCH 29.4 MCHC 33.3 RDW 12.7 Plt Count 83 L MPV 12.2 Immature Gran % (Auto) 0.7 H Neut % (Auto) 68.8 Lymph % (Auto) 21.8 [place] % (Auto) 8.7 Eos % (Auto) 0.0 Baso % (Auto) 0.0 Lymph # (Auto) 0.6 L [place] # (Auto) 0.3 Eos # (Auto) 0.0 Baso # (Auto) 0.0 Abs Immat Gran (auto) 0.02 Absolute Neuts (auto) 2.0 Absolute Nucleated RBC 0.000 Nucleated RBC % (auto) 0.0 Anion Gap 11 L Estim Creat Clear Calc 101.4 Estimated GFR > 60 Random Glucose 132 H Calcium 8.0 L Phosphorus 2.5 L Magnesium 2.2 Albumin 3.4 L Microbiology Microbiology Results: Microbiology 08/23/24 13:24 Blood Culture - Preliminary Blood - Venous No growth after 48 hours. 08/23/24 11:14 Blood Culture - Preliminary Blood - Central Line No growth after 48 hours. 08/23/24 09:49 Blood Culture - Preliminary Blood - Venous No growth after 48 hours. Assessment and Plan (1) Norovirus: Status: Acute (2) Influenza A: Status: Acute (3) Colitis: Status: Acute Plan 44 yo F with with history of Behcet's disease, gastroparesis on TPN, anxiety, depression, chronic pain on dialudid, and seizure disorder who presented with abdominal pain associated with nausea/vomiting/diarrhea. CT showing possible colitis found to have norovirus and subsequently developed fever and tested + for influenza viral sepsis meets sepsis criteria with fever, leukopenia, tachycardia probable ?viral sepsis due to norovirus and viral pneumonia lactic acid within normal limits blood cultures negative Diarrhea due to Norovirus. resolved remainder of GI panel and cdiff negative pancytopenia likely due to acute viral illness follow CBC influenza A tamiflu symptomatic support viral pneumonia see above continue empiric antibiotics svc obstruction, chronic incidental on imaging, known to pt Chronic pain on PO dilaudid at home getting IV dilaudid here Crohn's disease not currently on therapy receives TPN at home, will continue has TPN port History of PE/DVT previously on eliquis -- do not see it on claim history continue Eliquis History of seizure d/o continue Keppra Full Code DVT pptx - Eliquis Pt requires ongoing inpatient stay for pneumonia,severe abdominal pain and nausea requiring multiple doses of IV treatment + CT concerning for possible colitis, complicated by underlying crohn's, bachet's, chronic pain syndrome and chronic TPN use Quality Stroke Does the patient have a stroke diagnosis?: No VTE Prior VTE?: No VTE Risk Level:: Medical - moderate - high VTE Device Contraindication: N/A - Device Ordered VTE Drug Contraindication: N/A - Med Ordered
[2024-08-26] MEDS: Azithromycin 500 MG in 0.9 % Sodium Chloride 250 ML 125 MG IV (15:43)
[2024-08-26] MEDS: cefTRIAXone sodium 1 GM VIAL IVPUSH (15:43)
[2024-08-26] MEDS: 0.9 % Sodium Chloride Flush 3 ML SYRINGE IVFLUSH (15:43)
[2024-08-26] MEDS: Albuterol/Iprat 2.5/0.5MG 3 ML AMPUL.NEB INHALE ×2 (15:56→20:11)
[2024-08-26] MEDS: levETIRAcetam Oral Soln 500 MG/5 ML 700 MG PO (20:36)
[2024-08-26] MEDS: Parenteral Nutrition 1,920 ML 80 ML IV (20:36)
[2024-08-27] VITALS (7 sets, daily range): BP systolic 108–118; BP diastolic 54–65; PULSE 74–83; RESP 16–20; TEMP 36.2–36.4; O2SAT 90–92
[2024-08-27] MEDS: ondansetron HCL 4 MG/2 ML VIAL IVPUSH ×4 (04:27→22:45)
[2024-08-27] MEDS: HYDROmorphone HCl 1 MG/ML SYRINGE IVPUSH ×4 (04:28→22:44)
[2024-08-27] MEDS: diphenhydrAMINE HCL 50 MG/ML VIAL 25 MG IVPUSH ×4 (04:28→22:45)
[2024-08-27] MEDS: Lactated Ringers 1,000 ML 100 ML IVCONT (06:18)
[2024-08-27] MEDS: Promethazine HCL 25 MG TABLET PO (07:37)
[2024-08-27] MEDS: Albuterol/Iprat 2.5/0.5MG 3 ML AMPUL.NEB INHALE ×3 (07:48→21:26)
[2024-08-27] MEDS: Fluticasone/Vilanterol 200/25 BLST.W.DEV 1 PUFF INHALE (07:48)
[2024-08-27 08:15] LABS: Hemoglobin 9.9 g/dl (12.0-16.0); Mean Corpuscular Hemoglobin 29.2 pg (27.0-33.0); Red Blood Count 3.39 X10*6/uL (4.20-5.50); Red Cell Distribution Width 12.8 % (11.0-16.0)
[2024-08-27 08:17] LABS: Hematocrit 29.7 % (37.0-47.0); Mean Corpuscular HGB Conc 33.3 g/dl (31.0-35.0); Mean Corpuscular Volume 87.6 fL (80.0-98.0); Mean Platelet Volume 13.1 fL (9.4-12.3)
[2024-08-27 08:24] LABS: PLT ABN DIST 1; Platelet Count 76 X10*3/uL (160-400)
[2024-08-27] MEDS: guaiFENesin LA 600 MG TAB.ER.12H PO ×2 (08:30→20:46)
[2024-08-27] MEDS: Apixaban 5 MG TABLET PO ×2 (08:30→20:46)
[2024-08-27] MEDS: levETIRAcetam Oral Soln 500 MG/5 ML 700 MG PO ×2 (08:30→20:46)
[2024-08-27] MEDS: Butalb/Acetamin/Caff 50/325/40 TABLET 1 TAB PO (08:36)
[2024-08-27 08:46] LABS: Albumin Level 3.2 g/dL (3.5-5.0); Anion Gap 10 (12-20); Blood Urea Nitrogen 11 mg/dL (9-16); Calcium 8.1 mg/dL (8.4-10.2); Carbon Dioxide 26 mmol/L (22-29); Chloride 107 mmol/L (96-108); Creatinine Clr Calc Pharmacy 110.3; Estimated Glomerular Filt Rate > 60; Glucose Random 127 mg/dL (60-115); Magnesium 2.4 mg/dL (1.6-2.6); Phosphorus 2.8 mg/dL (2.7-4.5); Potassium 3.8 mmol/L (3.3-5.1); Sodium 139 mmol/L (135-145)
--- NOTE | 2024-08-27 09:11 | P.PNIM_ITS ---
Subjective Subjective Date of Service: 08/27/24 Interval History: Seen and this morning Follow-up for coronavirus, influenza a, pneumonia, pancytopenia Patient not feeling well, persistent cough, reports worsening sob no further fever Review of Systems Review of Systems: Yes all other systems are reviewed and are negative Constitutional Constitutional: Denies chills and Denies fever(s) Cardiovascular Cardiovascular: Denies chest pain and Reports dyspnea Respiratory Respiratory: Reports cough and Reports dyspnea Gastrointestinal Gastrointestinal: Reports abdominal pain, Denies nausea and Denies vomiting Physical Exam 2 Vital Signs: Vital Signs: Last Vital Signs Temp 97.6 F 08/27/24 06:55 Pulse 81 08/27/24 07:48 Resp 18 08/27/24 07:48 BP 110/54 L 08/27/24 06:55 Pulse Ox 91 L 08/27/24 06:55 O2 Del Method Nasal Cannula 08/27/24 06:55 O2 Flow Rate 1 08/27/24 06:55 BMI result Body Mass Index 26.9 Appearing in no acute distress lung sounds exp wheezing heart regular rate rhythm, clear S1, S2 positive bowel sounds, abdomen is soft, nontender neuro patient is alert x3, no focal deficits Objective Data Active Medications Acetaminophen (Acetaminophen 325 Mg Tablet) 650 mg PO Q6H PRN PRN Reason: Pain, Mild 1-3,fever,headache Last Admin: 08/23/24 09:21 Dose: 650 mg Documented By: JACINTO Acetaminophen/Butalbital/Caffeine (Butalb/Acetamin/Caff 50/325/40 Tablet) 1 tab PO Q4H PRN PRN Reason: Headache Last Admin: 08/27/24 08:36 Dose: 1 tab Documented By: ALANA Albuterol/Ipratropium (Albuterol/Iprat 2.5/0.5mg 3 Ml Ampul.Neb) 3 ml INHALE RQ6H WHILE AWAKE [facility] Last Admin: 08/27/24 07:48 Dose: 3 ml Documented By: PAOLA Apixaban (Apixaban 5 Mg Tablet) 5 mg PO BID [facility] Last Admin: 08/27/24 08:30 Dose: 5 mg Documented By: ALANA Calcium Carbonate (Calcium Carbonate 750 Mg Tab.Chew) 750 mg PO Q4H PRN PRN Reason: Heartburn Ceftriaxone Sodium (Ceftriaxone Sodium 1 Gm Vial) 1 gm IVPUSH Q24H ANNA Last Admin: 08/26/24 15:43 Dose: 1 gm Documented By: MARLEY Diphenhydramine HCl (Diphenhydramine Hcl 50 Mg/Ml Vial) 25 mg IVPUSH Q6H PRN PRN Reason: Itching Last Admin: 08/27/24 04:28 Dose: 25 mg Documented By: SWAPNIL Fluticasone/Vilanterol (Fluticasone/Vilanterol 200/25 Blst.W.Dev) 1 puff INHALE Q24H [facility] Last Admin: 08/27/24 07:48 Dose: 1 puff Documented By: PAOLA Guaifenesin (Guaifenesin La 600 Mg Tab.Er.12h) 600 mg PO BID [facility] Last Admin: 08/27/24 08:30 Dose: 600 mg Documented By: ALANA Guaifenesin/Dextromethorphan (Guaifenesin Dm 200/20/10 Ml 10 Ml Syrup) 10 ml PO Q6H PRN PRN Reason: Cough Last Admin: 08/26/24 23:52 Dose: 10 ml Documented By: SWAPNIL Hydromorphone HCl (Hydromorphone Hcl 1 Mg/Ml Syringe) 1 mg IVPUSH Q6H PRN; Protocol PRN Reason: Pain, Severe (Pain Scale 7-10) Last Admin: 08/27/24 04:28 Dose: 1 mg Documented By: SWAPNIL Azithromycin 500 mg/ Sodium (Chloride) 250 mls @ 125 mls/hr IV Q24H [facility] Last Infusion: 08/26/24 19:00 Dose: Infused Documented By: MARLEY Nutrition (Parenteral) (Parenteral Nutrition) 1,920 mls @ 80 mls/hr IV .Q24H [facility]; Protocol Stop: 08/27/24 20:59 Last Admin: 08/26/24 20:36 Dose: 80 mls/hr Documented By: MARLEY Levetiracetam (Levetiracetam Oral Soln 500 Mg/5 Ml) 700 mg PO BID [facility] Last Admin: 08/27/24 08:30 Dose: 700 mg Documented By: ALANA Magnesium Hydroxide (Milk Of Magnesia 30 Ml Oral.Susp) 30 ml PO DAILY PRN PRN Reason: Constipation Melatonin (Melatonin 3 Mg Tablet) 6 mg PO BEDTIME PRN PRN Reason: Insomnia Methylprednisolone Sodium Succinate (Methylprednisolone Sod Succ 40 Mg/Ml Vial) 40 mg IVPUSH Q12H [facility] Ondansetron HCl (Ondansetron Hcl 4 Mg/2 Ml Vial) 4 mg IVPUSH Q6H PRN PRN Reason: Nausea and Vomiting Last Admin: 08/27/24 04:27 Dose: 4 mg Documented By: SWAPNIL Oseltamivir Phosphate (Oseltamivir Phosphate 75 Mg Capsule) 75 mg PO Q12H [facility] Stop: 08/29/24 00:01 Last Admin: 08/26/24 23:48 Dose: 75 mg Documented By: SWAPNIL Pharmacy Consult (Consult Rx Parenteral Nutrition Ordering) 1 each MISCELLANE DAILY PRN PRN Reason: Consult order Promethazine HCl (Promethazine Hcl 25 Mg Tablet) 25 mg PO QID PRN PRN Reason: Nausea And Vomiting Last Admin: 08/27/24 07:37 Dose: 25 mg Documented By: ALNAA Sodium Chloride (0.9 % Sodium Chloride Flush 3 Ml Syringe) 3 ml IVFLUSH QSHIFT [facility] Last Admin: 08/27/24 08:32 Dose: Not Given Documented By: ALANA Non-Admin Reason: IV Running Labs 08/27/24 06:07 08/27/24 06:07 Labs: Laboratory Results - last 24 hr 08/27/24 06:07 MCV 87.6 MCH 29.2 MCHC 33.3 RDW 12.8 Plt Count 76 L MPV 13.1 H Absolute Nucleated RBC 0.000 Nucleated RBC % (auto) 0.0 Anion Gap 10 L Estim Creat Clear Calc 110.3 Estimated GFR > 60 Random Glucose 127 H Calcium 8.1 L Phosphorus 2.8 Magnesium 2.4 Albumin 3.2 L Assessment and Plan (1) Norovirus: Status: Acute (2) Influenza A: Status: Acute (3) Colitis: Status: Acute Plan 44 yo F with with history of Behcet's disease, gastroparesis on TPN, anxiety, depression, chronic pain on dialudid, and seizure disorder who presented with abdominal pain associated with nausea/vomiting/diarrhea. CT showing possible colitis found to have norovirus and subsequently developed fever and tested + for influenza Pneumonia Repeat chest CT showing more confluence right lower lobe pneumonia extending into the right middle lobe with parapneumonic effusion and loculation suggesting possible empyema Antibiotics switched to vancomycin and Zosyn A pulmonary consultation Solu-Medrol Continue scheduled DuoNebs Continue supplemental oxygen to keep oxygen saturation greater than 90% viral sepsis meets sepsis criteria with fever, leukopenia, tachycardia probable ?viral sepsis due to norovirus and viral pneumonia lactic acid within normal limits blood cultures negative Diarrhea due to Norovirus. resolved remainder of GI panel and cdiff negative pancytopenia likely due to acute viral illness follow CBC influenza A tamiflu symptomatic support svc obstruction, chronic incidental on imaging, known to pt Chronic pain on PO dilaudid at home getting IV dilaudid here Crohn's disease not currently on therapy receives TPN at home, will continue has TPN port History of PE/DVT previously on eliquis -- do not see it on claim history continue Eliquis History of seizure d/o continue Keppra Full Code DVT pptx - Eliquis Pt requires ongoing inpatient stay for pneumonia,severe abdominal pain and nausea requiring multiple doses of IV treatment + CT concerning for possible colitis, complicated by underlying crohn's, bachet's, chronic pain syndrome and chronic TPN use Quality Stroke Does the patient have a stroke diagnosis?: No VTE Prior VTE?: No VTE Risk Level:: Medical - moderate - high VTE Device Contraindication: N/A - Device Ordered VTE Drug Contraindication: N/A - Med Ordered
[2024-08-27] MEDS: methylPREDNISolone Sod Succ 40 MG/ML VIAL IVPUSH ×2 (10:27→20:45)
--- NOTE | 2024-08-27 11:18 | MHC.CLN ---
F/U PT IS ON CLEAR LIQUID DIET WITH PO 0-100%. CLEAR LIQUID DIET DOES NOT PROVIDE ADEQUATE NUTRITION. REVIEWED LABS. COMMUNICATED WITH PHARMACY. RECOMMEND TPN AT 80 ML PER HOUR, ADD 50 G LIPIDS TO PROVIDE 1460 TOTAL KCALS (29.2 KCALS/KG IBW), 70G PROTEIN (1.4 G/KG IBW), 200 G DEXTROSE. REPLETE LYTES NEEDED. CONTINUE SCHEDULE OF NO LIPIDS ON TUESDAY AND TUESDAY. MONITOR PO INTAKE, TPN TOLERANCE AND LYTES.
[2024-08-27] MEDS: Oseltamivir Phosphate 75 MG CAPSULE PO (11:28)
--- NOTE | 2024-08-27 12:14 | MHC.CM.PN ---
Per MD rounds patient not medically cleared for dc. CM will continue to follow.
[2024-08-27] MEDS: Piperacillin Sodium/Tazobactam 3.375 GM in 0.9 % Sodium Chloride 50 ML IV ×2 (13:18→18:36)
[2024-08-27] MEDS: vancomycin HCL 1,500 MG in 0.9 % Sodium Chloride 500 ML 333.33 MG IV (13:56)
--- NOTE | 2024-08-27 14:24 | P.CONPL_ITS ---
History of Present Illness History of Present Illness Consult date: 08/27/24 Chief complaint: abd pain Narrative: 44-year-old lady with underlying chronic pain syndrome, Crohn's, Behcet's, seizure disorder, DVT now anticoagulated with Eliquis, admitted 08/20/2024 with vomiting and diarrhea, noted to have influenza, further complicated by what appears to be bacterial superinfection, now with development of small right- sided loculated effusion and mild hypoxemia. Review of Systems 2 Cardiovascular: Cardiovascular: Denies chest pain, Denies chest pain at rest, Denies dyspnea and Reports dyspnea on exertion Respiratory: Respiratory: Reports cough, Reports excessive phlegm production, Denies dyspnea and Reports dyspnea on exertion PMFSH Past Medical History Medical History Pulmonary emboli Crohn's disease Chronic, continuous use of opioids Immunosuppression Absence seizure disorder DVT (deep venous thrombosis) Pyloric stenosis Asthma Common variable immunodeficiency Spondylolisthesis, lumbar region Spondylosis of lumbar region without myelopathy or radiculopathy Abdominal pain, chronic, generalized Gastroparesis Spontaneous pneumothorax Chronic pain syndrome Cervicalgia Low back pain Behcet's disease Family History Family History Father Hairy cell leukemia Surgical History Surgical History History of hernia surgery Social History Social History Household Members: Children Household Members Other:: son Housing: House Do you presently have visiting nurse or other home services: No Unable to assess alcohol history related to: Unknown Alcohol intake: never Patient Tobacco Use Status: Never used Tobacco Second Hand Smoke Exposure: No Advance Directives Date on File: 04/22/23 service: No Current occupational status: unemployed Meds Allergies Allergy/AdvReac Type Severity Reaction Status Date / Time ciprofloxacin [Cipro] Allergy Unknown Hives Verified 08/19/24 21:52 levofloxacin [Levaquin] Allergy Unknown Hives Verified 08/19/24 21:52 metoclopramide [Reglan] Allergy Unknown Hives Verified 08/19/24 21:52 ondansetron [Zofran] Allergy Unknown Itching Verified 08/19/24 21:52 penicillin V Allergy Unknown Hives Verified 08/19/24 21:52 prochlorperazine Allergy Unknown Shortness Verified 08/19/24 21:52 [From Compazine] of Breath Sulfa (Sulfonamide Allergy Unknown Hives Verified 08/19/24 21:52 Antibiotics) thalidomide [From Thalomid] Allergy Unknown Rash Verified 08/19/24 21:52 haloperidol [From Haldol] Allergy Itching Verified 08/19/24 21:52 Active Medications: Current Medications Acetaminophen (Acetaminophen 325 Mg Tablet) 650 mg PO Q6H PRN PRN Reason: Pain, Mild 1-3,fever,headache Last Admin: 08/23/24 09:21 Dose: 650 mg Acetaminophen/Butalbital/Caffeine (Butalb/Acetamin/Caff 50/325/40 Tablet) 1 tab PO Q4H PRN PRN Reason: Headache Last Admin: 08/27/24 08:36 Dose: 1 tab Albuterol/Ipratropium (Albuterol/Iprat 2.5/0.5mg 3 Ml Ampul.Neb) 3 ml INHALE RQ6H WHILE AWAKE [facility] Last Admin: 08/27/24 07:48 Dose: 3 ml Apixaban (Apixaban 5 Mg Tablet) 5 mg PO BID [facility] Last Admin: 08/27/24 08:30 Dose: 5 mg Calcium Carbonate (Calcium Carbonate 750 Mg Tab.Chew) 750 mg PO Q4H PRN PRN Reason: Heartburn Diphenhydramine HCl (Diphenhydramine Hcl 50 Mg/Ml Vial) 25 mg IVPUSH Q6H PRN PRN Reason: Itching Last Admin: 08/27/24 10:28 Dose: 25 mg Fluticasone/Vilanterol (Fluticasone/Vilanterol 200/25 Blst.W.Dev) 1 puff INHALE Q24H [facility] Last Admin: 08/27/24 07:48 Dose: 1 puff Guaifenesin (Guaifenesin La 600 Mg Tab.Er.12h) 600 mg PO BID [facility] Last Admin: 08/27/24 08:30 Dose: 600 mg Guaifenesin/Dextromethorphan (Guaifenesin Dm 200/20/10 Ml 10 Ml Syrup) 10 ml PO Q6H PRN PRN Reason: Cough Last Admin: 08/26/24 23:52 Dose: 10 ml Hydromorphone HCl (Hydromorphone Hcl 1 Mg/Ml Syringe) 1 mg IVPUSH Q6H PRN; Protocol PRN Reason: Pain, Severe (Pain Scale 7-10) Last Admin: 08/27/24 10:29 Dose: 1 mg Nutrition (Parenteral) (Parenteral Nutrition) 1,920 mls @ 80 mls/hr IV .Q24H [facility]; Protocol Stop: 08/27/24 20:59 Last Admin: 08/26/24 20:36 Dose: 80 mls/hr Nutrition (Parenteral) (Parenteral Nutrition) 1,920 mls @ 80 mls/hr IV .Q24H [facility]; Protocol Stop: 08/28/24 20:59 Piperacillin Sod/Tazobactam (Sod 3.375 gm/ Sodium Chloride) 50 mls @ 100 mls/hr IV Q6H [facility] Last Infusion: 08/27/24 13:50 Dose: Infused Vancomycin HCl 1,250 mg/ (Sodium Chloride) 250 mls @ 166.667 mls/hr IV Q12H [facility] Levetiracetam (Levetiracetam Oral Soln 500 Mg/5 Ml) 700 mg PO BID [facility] Last Admin: 08/27/24 08:30 Dose: 700 mg Magnesium Hydroxide (Milk Of Magnesia 30 Ml Oral.Susp) 30 ml PO DAILY PRN PRN Reason: Constipation Melatonin (Melatonin 3 Mg Tablet) 6 mg PO BEDTIME PRN PRN Reason: Insomnia Methylprednisolone Sodium Succinate (Methylprednisolone Sod Succ 40 Mg/Ml Vial) 40 mg IVPUSH Q12H [facility] Last Admin: 08/27/24 10:27 Dose: 40 mg Ondansetron HCl (Ondansetron Hcl 4 Mg/2 Ml Vial) 4 mg IVPUSH Q6H PRN PRN Reason: Nausea and Vomiting Last Admin: 08/27/24 10:29 Dose: 4 mg Oseltamivir Phosphate (Oseltamivir Phosphate 75 Mg Capsule) 75 mg PO Q12H [facility] Stop: 08/29/24 00:01 Last Admin: 08/27/24 11:28 Dose: 75 mg Pharmacy Consult (Consult Rx Parenteral Nutrition Ordering) 1 each MISCELLANE DAILY PRN PRN Reason: Consult order Pharmacy Consult (Consult Rx Vancomycin Dosing) 1 each MISCELLANE DAILY PRN PRN Reason: Consult order Promethazine HCl (Promethazine Hcl 25 Mg Tablet) 25 mg PO QID PRN PRN Reason: Nausea And Vomiting Last Admin: 08/27/24 07:37 Dose: 25 mg Sodium Chloride (0.9 % Sodium Chloride Flush 3 Ml Syringe) 3 ml IVFLUSH QSHIFT [facility] Last Admin: 08/27/24 08:32 Dose: Not Given Home Medications ?Medication ?Instructions ?Recorded ?Confirmed ?Last Taken ?Type fluticasone furoate 200 1 inh inhalation Q24H 12/12/20 08/20/24 08/19/24 History mcg-vilanterol 25 mcg/dose inhalation powder (Breo Ellipta) umeclidinium 62.5 mcg/actuation 1 inh inhalation DAILY 12/12/20 08/20/24 08/19/24 History blister powder for inhalation (Incruse Ellipta) diphenhydramine HCl 50 mg/mL 25 mg IV QID PRN Nausea 03/12/21 08/20/24 02/04/23 History injection solution ondansetron HCl (PF) 4 mg/2 mL 4 mg IV QID PRN Nausea 03/12/21 08/20/24 02/04/23 History injection solution promethazine 25 mg tablet 25 mg PO QID PRN Nausea And 08/18/21 08/20/24 02/04/23 History Vomiting levetiracetam 100 mg/mL oral 700 mg PO BID 08/20/24 08/20/24 08/19/24 History solution Physical Exam 2 Vital Signs: Vital Signs: Last Vital Signs Temp 97.6 F 08/27/24 06:55 Pulse 81 08/27/24 07:48 Resp 18 08/27/24 07:48 BP 110/54 L 08/27/24 06:55 Pulse Ox 91 L 08/27/24 06:55 O2 Del Method Nasal Cannula 08/27/24 06:55 O2 Flow Rate 1 08/27/24 06:55 BMI result Body Mass Index 26.9 Const: General: no acute distress, alert and awake Eyes: Sclerae: sclerae normal EOM: EOMs intact bilaterally Neck: Neck: Yes no lymphadenopathy, Yes trachea midline and Yes supple Resp: Effort & Inspection: normal respiratory effort and no respiratory distress Auscultation: clear to auscultation bilaterally Cardio: Rate: regular rate Rhythm: regular rhythm Heart sounds: no gallops, no murmurs and no rubs GI: Palpation (GI): Soft to palpation and Other GI palpation findings present ( Nontender) Auscultation: normal bowel sounds Extrem: General: Yes no pedal edema, No clubbing and No cyanosis Results Laboratory Findings 08/27/24 06:07 08/27/24 06:07 Abnormal lab findings: Abnormal Labs 08/19/24 08/20/24 08/20/24 22:34 07:52 12:42 WBC 14.8 H RBC Hgb Hct Plt Count MPV Immature Gran % (Auto) Neut % (Auto) 89.8 H Lymph % (Auto) 7.[address] [place] % (Auto) 1.6 L Lymph # (Auto) 1.1 L Abs Immat Gran (auto) 0.05 H Absolute Neuts (auto) 13.3 H Chloride Anion Gap 10 L BUN 22 H Random Glucose 134 H Calcium 8.3 L D Phosphorus Total Protein 6.2 L Albumin Stl Norovirus GI/GII PCR Detected A Influenza A (RT-PCR) Influ A () PCR 08/21/24 08/21/24 08/21/24 06:10 06:10 06:10 WBC RBC Hgb Hct Plt Count MPV Immature Gran % (Auto) Neut % (Auto) Lymph % (Auto) [place] % (Auto) Lymph # (Auto) Abs Immat Gran (auto) Absolute Neuts (auto) Chloride 111 H 111 H Anion Gap 9 L 9 L BUN Random Glucose 137 H Calcium Phosphorus Total Protein Albumin Stl Norovirus GI/GII PCR Influenza A (RT-PCR) Influ A (H1) PCR 08/21/24 08/21/24 08/21/24 06:10 06:10 06:10 WBC RBC Hgb Hct Plt Count MPV Immature Gran % (Auto) Neut % (Auto) Lymph % (Auto) [place] % (Auto) Lymph # (Auto) Abs Immat Gran (auto) Absolute Neuts (auto) Chloride Anion Gap BUN Random Glucose 137 H Calcium 8.2 L 8.1 L Phosphorus Total Protein 5.4 L Albumin 3.2 L 3.2 L Stl Norovirus GI/GII PCR Influenza A (RT-PCR) Influ A (H1/) PCR 08/22/24 08/23/24 08/23/24 06:28 06:13 11:14 WBC 2.9 L RBC 4.04 L Hgb 11.9 L Hct 34.9 L Plt Count 113 L D MPV Immature Gran % (Auto) Neut % (Auto) 84.7 H Lymph % (Auto) 7.[address] [place] % (Auto) Lymph # (Auto) 0.2 L Abs Immat Gran (auto) Absolute Neuts (auto) Chloride Anion Gap BUN Random Glucose Calcium 8.3 L Phosphorus 2.4 L Total Protein Albumin Stl Norovirus GI/GII PCR Influenza A (RT-PCR) Influ A () PCR 08/23/24 08/23/24 08/24/24 13:24 15:00 05:28 WBC 2.7 L 2.2 L RBC 3.89 L 3.96 L Hgb 11.5 L 11.7 L Hct 33.7 L 34.7 L Plt Count 105 L 106 L MPV Immature Gran % (Auto) Neut % (Auto) 86.4 H Lymph % (Auto) 8.[address] [place] % (Auto) Lymph # (Auto) 0.2 L Abs Immat Gran (auto) Absolute Neuts (auto) Chloride Anion Gap 9 L BUN Random Glucose Calcium 8.0 L Phosphorus 2.2 L Total Protein Albumin Stl Norovirus GI/GII PCR Influenza A (RT-PCR) Detected A Influ A () PCR Detected A 08/25/24 08/26/24 08/27/24 05:10 06:29 06:07 WBC 2.9 L 2.9 L 3.0 L RBC 3.74 L 3.54 L 3.39 L Hgb 11.0 L 10.4 L 9.9 L Hct 32.9 L 31.2 L 29.7 L Plt Count 89 L 83 L 76 L MPV 13.1 H Immature Gran % (Auto) 0.7 H Neut % (Auto) Lymph % (Auto) [place] % (Auto) Lymph # (Auto) 0.6 L Abs Immat Gran (auto) Absolute Neuts (auto) Chloride Anion Gap 10 L 11 L 10 L BUN Random Glucose 132 H 127 H Calcium 7.8 L 8.0 L 8.1 L Phosphorus 2.5 L Total Protein Albumin 3.2 L 3.4 L 3.2 L Stl Norovirus GI/GII PCR Influenza A (RT-PCR) Influ A () PCR Microbiology: Microbiology 08/23/24 13:24 Blood - Venous Blood Culture - Preliminary No growth after 48 hours. 08/23/24 11:14 Blood - Central Line Blood Culture - Preliminary No growth after 48 hours. 08/23/24 09:49 Blood - Venous Blood Culture - Preliminary No growth after 48 hours. 08/23/24 10:44 Blood - Central Line Blood Culture - Final Assessment and Plan (1) Influenza A: Status: Acute (2) Pneumonia: Status: Acute (3) Acute respiratory failure with hypoxia: Status: Acute (4) Pleural effusion: Status: Acute Plan Impression: 44-year-old lady admitted with influenza and bacterial superinfection with resultant small right-sided pleural effusion with early loculation and mild hypoxemia. Recommendations: Agree with empiric antibiotics. Consider right-sided chest tube with chemical decortication. Procedures Date of Service Date of Service: 08/27/24
[2024-08-27] MEDS: 0.9 % Sodium Chloride Flush 3 ML SYRINGE IVFLUSH ×2 (15:34→20:45)
[2024-08-27] MEDS: Dicyclomine HCl 10 MG CAPSULE PO ×2 (17:20→20:46)
[2024-08-27] MEDS: Parenteral Nutrition 1,920 ML 80 ML IV (20:45)
[2024-08-28] MEDS: Piperacillin Sodium/Tazobactam 3.375 GM in 0.9 % Sodium Chloride 50 ML IV ×5 (00:51→23:38)
[2024-08-28] MEDS: Oseltamivir Phosphate 75 MG CAPSULE PO ×3 (00:51→23:38)
[2024-08-28] MEDS: vancomycin HCL 1,250 MG in 0.9 % Sodium Chloride 250 ML 166.67 MG IV (01:23)
[2024-08-28] MEDS: guaiFENesin DM 200/20/10 ML 10 ML SYRUP PO ×2 (01:23→08:20)
--- NOTE | 2024-08-28 03:08 | CONS_ITS ---
DATE OF SERVICE: 08/27/2024 REFERRING PHYSICIAN: Cheryl Ricketts NP REASON FOR CONSULTATION: Abdominal pain. HISTORY OF PRESENT ILLNESS: The patient is a pleasant 44-year-old woman who was admitted to the hospital on August 20 with abdominal pain, nausea, vomiting, and diarrhea. She subsequently underwent stool testing, which was positive for norovirus and has been treated supportively. Her main complaint today is shortness of breath and she reports some improvement in her diarrhea since admission. She does complain of abdominal pain, worst in the lower quadrants, which is crampy. Evaluation in the hospital has included stool studies as above. Laboratory studies have shown a stable hematocrit and CT scanning of the abdomen and pelvis from August 23 shows minimal wall thickening of the cecum and ascending colon as well as a proximal transverse colon. Possibly underdistention, although colitis is a consideration. PAST MEDICAL HISTORY: 1. Behcet disease with DVT and pulmonary embolism. 2. Remote history of Crohn disease, currently not active. 3. Seizure disorder. 4. Pyloric stenosis. 5. Asthma. 6. Common variable immune deficiency. 7. Back pain. 8. Gastroparesis. 9. Pneumothorax, spontaneous. CURRENT MEDICATIONS: Her current medication list is reviewed in the chart. ALLERGIES: MULTIPLE MEDICATION ALLERGIES ARE REVIEWED. FAMILY HISTORY: This is reviewed with the patient. SOCIAL HISTORY: There is no current tobacco, alcohol, or substance abuse. REVIEW OF SYSTEMS: SKIN: No pruritus. HEENT: Negative. CARDIOPULMONARY: No shortness of breath or chest pain. GASTROINTESTINAL: As above. GENITOURINARY: Negative. NEUROPSYCHIATRIC: Negative. PHYSICAL EXAMINATION: GENERAL: Shows a pleasant female, lying in bed. VITAL SIGNS: Reviewed in the electronic medical record and are stable. SKIN: Anicteric. HEENT: Shows no scleral icterus. NECK: Without lymphadenopathy or thyromegaly. LUNGS: Clear. HEART: Shows a regular rate and rhythm. S1, S2. No murmur. ABDOMEN: Soft without focal masses or tenderness. Bowel sounds are present. No organomegaly is noted. EXTREMITIES: Without edema. LABORATORY DATA AND IMAGING STUDIES: Reviewed. IMPRESSION: Abdominal pain with recent norovirus infection. She may have some symptoms from postinfectious irritable bowel syndrome. PLAN: I would recommend starting dicyclomine for her symptoms. She will schedule follow up through her primary GI provider in [place]. Thanks for asking me to see her, and I will follow her in the hospital with you. MD OUMOU Mathews/SHAYNA / [phone]
[2024-08-28 05:23] VITALS: BP 118/63; PULSE 74; RESP 16; TEMP 36; O2SAT 94
[2024-08-28] MEDS: ondansetron HCL 4 MG/2 ML VIAL IVPUSH ×4 (05:32→23:37)
[2024-08-28] MEDS: diphenhydrAMINE HCL 50 MG/ML VIAL 25 MG IVPUSH ×4 (05:32→23:37)
[2024-08-28] MEDS: HYDROmorphone HCl 1 MG/ML SYRINGE IVPUSH ×4 (05:32→23:37)
[2024-08-28 06:34] LABS: Albumin Level 3.4 g/dL (3.5-5.0); Anion Gap 13 (12-20); Blood Urea Nitrogen 16 mg/dL (9-16); Calcium 9.5 mg/dL (8.4-10.2); Carbon Dioxide 22 mmol/L (22-29); Chloride 111 mmol/L (96-108); Creatinine Clr Calc Pharmacy 108.5; Estimated Glomerular Filt Rate > 60; Glucose Random 203 mg/dL (60-115); Magnesium 2.7 mg/dL (1.6-2.6); Phosphorus 2.6 mg/dL (2.7-4.5); Potassium 3.7 mmol/L (3.3-5.1); Sodium 142 mmol/L (135-145)
[2024-08-28] MEDS: Dicyclomine HCl 10 MG CAPSULE PO ×4 (07:21→20:47)
[2024-08-28] MEDS: Fluticasone/Vilanterol 200/25 BLST.W.DEV 1 PUFF INHALE (07:54)
[2024-08-28] MEDS: Albuterol/Iprat 2.5/0.5MG 3 ML AMPUL.NEB INHALE ×3 (07:54→19:45)
[2024-08-28 07:56] VITALS: PULSE 63; RESP 18; O2SAT 97
--- NOTE | 2024-08-28 08:08 | HO.PM.IMPN ---
Subjective Subjective Date of Service: 08/28/24 Interval History: Seen and this morning Follow-up for coronavirus, influenza a, pneumonia, pancytopenia Patient not feeling well, persistent cough, reports worsening sob still with abd pain Review of Systems Review of Systems: Yes all other systems are reviewed and are negative Constitutional Constitutional: Denies chills and Denies fever(s) Cardiovascular Cardiovascular: Denies chest pain and Reports dyspnea Respiratory Respiratory: Reports cough and Reports dyspnea Gastrointestinal Gastrointestinal: Reports abdominal pain, Denies nausea and Denies vomiting Physical Exam Vital Signs: Vital Signs: Last Vital Signs Temp 96.8 F 08/28/24 05:23 Pulse 63 08/28/24 07:56 Resp 18 08/28/24 07:56 BP 118/63 08/28/24 05:23 Pulse Ox 94 08/28/24 05:23 O2 Del Method Nasal Cannula 08/28/24 05:23 O2 Flow Rate 2 08/28/24 05:23 BMI result Body Mass Index 26.9 Appearing in no acute distress lung sounds are clear to auscultation heart regular rate rhythm, clear S1, S2 positive bowel sounds, abdomen is soft, nontender neuro patient is alert x3, no focal deficits port for TPN Objective Data Active Medications Acetaminophen (Acetaminophen 325 Mg Tablet) 650 mg PO Q6H PRN PRN Reason: Pain, Mild 1-3,fever,headache Last Admin: 08/23/24 09:21 Dose: 650 mg Documented By: JACINTO Acetaminophen/Butalbital/Caffeine (Butalb/Acetamin/Caff 50/325/40 Tablet) 1 tab PO Q4H PRN PRN Reason: Headache Last Admin: 08/27/24 08:36 Dose: 1 tab Documented By: ALANA Albuterol/Ipratropium (Albuterol/Iprat 2.5/0.5mg 3 Ml Ampul.Neb) 3 ml INHALE RQ6H WHILE AWAKE [facility] Last Admin: 08/28/24 07:54 Dose: 3 ml Documented By: JOSHSDIRK Apixaban (Apixaban 5 Mg Tablet) 5 mg PO BID [facility] Last Admin: 08/27/24 20:46 Dose: 5 mg Documented By: ODRISM Calcium Carbonate (Calcium Carbonate 750 Mg Tab.Chew) 750 mg PO Q4H PRN PRN Reason: Heartburn Dicyclomine HCl (Dicyclomine Hcl 10 Mg Capsule) 10 mg PO QIDACHS [facility] Last Admin: 08/28/24 07:21 Dose: 10 mg Documented By: ALANA Diphenhydramine HCl (Diphenhydramine Hcl 50 Mg/Ml Vial) 25 mg IVPUSH Q6H PRN PRN Reason: Itching Last Admin: 08/28/24 05:32 Dose: 25 mg Documented By: PRISCA Fluticasone/Vilanterol (Fluticasone/Vilanterol 200/25 Blst.W.Dev) 1 puff INHALE Q24H [facility] Last Admin: 08/28/24 07:54 Dose: 1 puff Documented By: KARIE Guaifenesin (Guaifenesin La 600 Mg Tab.Er.12h) 600 mg PO BID [facility] Last Admin: 08/27/24 20:46 Dose: 600 mg Documented By: PRISCA Guaifenesin/Dextromethorphan (Guaifenesin Dm 200/20/10 Ml 10 Ml Syrup) 10 ml PO Q6H PRN PRN Reason: Cough Last Admin: 08/28/24 01:23 Dose: 10 ml Documented By: PRISCA Hydromorphone HCl (Hydromorphone Hcl 1 Mg/Ml Syringe) 1 mg IVPUSH Q6H PRN; Protocol PRN Reason: Pain, Severe (Pain Scale 7-10) Last Admin: 08/28/24 05:32 Dose: 1 mg Documented By: PRISCA Nutrition (Parenteral) (Parenteral Nutrition) 1,920 mls @ 80 mls/hr IV .Q24H [facility]; Protocol Stop: 08/28/24 20:59 Last Admin: 08/27/24 20:45 Dose: 80 mls/hr Documented By: PRISCA Piperacillin Sod/Tazobactam (Sod 3.375 gm/ Sodium Chloride) 50 mls @ 100 mls/hr IV Q6H [facility] Last Infusion: 08/28/24 06:35 Dose: Infused Documented By: PRISCA Vancomycin HCl 1,250 mg/ (Sodium Chloride) 250 mls @ 166.667 mls/hr IV Q12H [facility] Last Infusion: 08/28/24 03:12 Dose: Infused Documented By: PRISCA Levetiracetam (Levetiracetam Oral Soln 500 Mg/5 Ml) 700 mg PO BID [facility] Last Admin: 08/27/24 20:46 Dose: 700 mg Documented By: PRISCA Magnesium Hydroxide (Milk Of Magnesia 30 Ml Oral.Susp) 30 ml PO DAILY PRN PRN Reason: Constipation Melatonin (Melatonin 3 Mg Tablet) 6 mg PO BEDTIME PRN PRN Reason: Insomnia Methylprednisolone Sodium Succinate (Methylprednisolone Sod Succ 40 Mg/Ml Vial) 40 mg IVPUSH Q12H [facility] Last Admin: 08/27/24 20:45 Dose: 40 mg Documented By: PRISCA Ondansetron HCl (Ondansetron Hcl 4 Mg/2 Ml Vial) 4 mg IVPUSH Q6H PRN PRN Reason: Nausea and Vomiting Last Admin: 08/28/24 05:32 Dose: 4 mg Documented By: PRISCA Oseltamivir Phosphate (Oseltamivir Phosphate 75 Mg Capsule) 75 mg PO Q12H [facility] Stop: 08/29/24 00:01 Last Admin: 08/28/24 00:51 Dose: 75 mg Documented By: PRISCA Pharmacy Consult (Consult Rx Parenteral Nutrition Ordering) 1 each MISCELLANE DAILY PRN PRN Reason: Consult order Pharmacy Consult (Consult Rx Vancomycin Dosing) 1 each MISCELLANE DAILY PRN PRN Reason: Consult order Promethazine HCl (Promethazine Hcl 25 Mg Tablet) 25 mg PO QID PRN PRN Reason: Nausea And Vomiting Last Admin: 08/27/24 07:37 Dose: 25 mg Documented By: ALANA Sodium Chloride (0.9 % Sodium Chloride Flush 3 Ml Syringe) 3 ml IVFLUSH QSHIFT [facility] Last Admin: 08/27/24 20:45 Dose: 3 ml Documented By: PRISCA Labs 08/27/24 06:07 08/28/24 05:36 Labs: Laboratory Results - last 24 hr 08/27/24 08/28/24 06:07 05:36 MCV 87.6 MCH 29.2 MCHC 33.3 RDW 12.8 Plt Count 76 L MPV 13.1 H Absolute Nucleated RBC 0.000 Nucleated RBC % (auto) 0.0 Anion Gap 10 L 13 Estim Creat Clear Calc 110.3 108.5 Estimated GFR > 60 > 60 Random Glucose 127 H 203 H Calcium 8.1 L 9.5 D Phosphorus 2.8 2.6 L Magnesium 2.4 2.7 H Albumin 3.2 L 3.4 L Assessment and Plan (1) Norovirus: Status: Acute (2) Influenza A: Status: Acute (3) Colitis: Status: Acute Plan 44 yo F with with history of Behcet's disease, gastroparesis on TPN, anxiety, depression, chronic pain on dialudid, and seizure disorder who presented with abdominal pain associated with nausea/vomiting/diarrhea. CT showing possible colitis found to have norovirus and subsequently developed fever and tested + for influenza Pneumonia Repeat chest CT showing more confluence right lower lobe pneumonia extending into the right middle lobe with parapneumonic effusion and loculation suggesting possible empyema Antibiotics switched to vancomycin and Zosyn pulmonary consultation> rec chest tube, not enough fluid according to IR Solu-Medrol Continue scheduled DuoNebs Continue supplemental oxygen to keep oxygen saturation greater than 90% lost IV access, midline ordered Abdominal pain diarrhea mostly resolved secondary to Norovirus. remainder of GI panel and cdiff negative Seen by Gastroenterology with recommendation to start Bentyl and follow up outpatient with regular vice president payment Viral sepsis. Resolved meets sepsis criteria with fever, leukopenia, tachycardia probable ?viral sepsis due to norovirus and viral pneumonia lactic acid within normal limits blood cultures negative pancytopenia likely due to acute viral illness follow CBC influenza A 08/23/24 tamiflu symptomatic support svc obstruction, chronic incidental on imaging, known to pt Chronic pain on PO dilaudid at home getting IV dilaudid here Crohn's disease not currently on therapy receives TPN at home, will continue has TPN port History of PE/DVT previously on eliquis -- do not see it on claim history continue Eliquis History of seizure d/o continue Keppra Full Code DVT pptx - Eliquis Pt requires ongoing inpatient stay for pneumonia,severe abdominal pain and nausea requiring multiple doses of IV treatment + CT concerning for possible colitis, complicated by underlying crohn's, bachet's, chronic pain syndrome and chronic TPN use Quality Stroke Does the patient have a stroke diagnosis?: No VTE Prior VTE?: No VTE Risk Level:: Medical - moderate - high VTE Device Contraindication: N/A - Device Ordered VTE Drug Contraindication: N/A - Med Ordered
[2024-08-28 08:15] VITALS: BP 107/58; PULSE 75; RESP 18; TEMP 36.1; O2SAT 92
[2024-08-28] MEDS: levETIRAcetam Oral Soln 500 MG/5 ML 700 MG PO ×2 (08:20→20:47)
[2024-08-28] MEDS: methylPREDNISolone Sod Succ 40 MG/ML VIAL IVPUSH ×2 (08:20→20:47)
[2024-08-28] MEDS: Apixaban 5 MG TABLET PO ×2 (08:20→20:47)
[2024-08-28] MEDS: guaiFENesin LA 600 MG TAB.ER.12H PO ×2 (08:20→20:47)
--- NOTE | 2024-08-28 10:17 | MHC.CLN ---
F/U PT IS ON CLEAR LIQUID DIET WITH VARIABLE REVIEWED LABS COMMUNICATED WITH PHARMACY CONTINUE TPN AT 80 ML PER HOUR WITH 50 G LIPIDS PROVIDES 1460 TOTAL KCALS (29.2 KCALS/KG IBW), 70G PROTEIN (1.4 G/KG IBW), 200 G DEXTROSE REPLETE LYTES NEEDED CONTINUE SCHEDULE OF NO LIPIDS ON TUESDAY AND TUESDAY MONITOR PO INTAKE, TPN TOLERANCE AND LYTES
[2024-08-28 12:30] LABS: Vancomycin Random 9.4 mcg/mL (15-20)
--- NOTE | 2024-08-28 12:36 | HE.PHANOTE ---
Re Vanco Random came back lower than anticipated. Projected AUC and trough technically therapeutic but low for Respiratory infections. Will increase to 1500mg q12h for now. Should achieve an AUC of 539 mg/L and trough 13.9 mg/L.
[2024-08-28] MEDS: vancomycin HCL 1,500 MG in 0.9 % Sodium Chloride 500 ML 333.33 MG IV (14:14)
[2024-08-28 14:38] VITALS: PULSE 72; RESP 20; O2SAT 92
[2024-08-28] MEDS: 0.9 % Sodium Chloride Flush 3 ML SYRINGE IVFLUSH ×2 (15:46→23:38)
[2024-08-28 15:47] VITALS: BP 108/55; PULSE 82; RESP 18; TEMP 36.4; O2SAT 92
--- NOTE | 2024-08-28 17:10 | HO.MIDLINE_ITS ---
Midline Insertion MIDLINE INSERTION Diagnosis: CDiff FLu A Noro virus difficult IV access Indication: IV medications Pertinent Labs: Reviewed Technique: Using sterile technique including cap and mask, glove and drape, the arm was prepped and draped in the usual sterile fashion of full barrier technique with CHG. Using ultrasound guidance, the patent right basilic vein access was obtained in a single attempt by this RN. A 20 guage 8 cm Non-PASV Midline was positioned. The procedure was performed in 272. Ultrasound was used to document vein patency and for needle entry. A formal ultrasound picture was recorded. Vascular Cutter Wet Machine has released the line for use and it is currently dressed with a StatLock, Tegaderm, and CHG disc. Verification has been performed for blood return and line patency. Arm Circumference: 34 cm Equipment: BARD PowerGlide ST Midline Catheter Catheter Type: 20 guage 8 cm Non-PASV Midline Lot #: [id number]
[2024-08-28] MEDS: Parenteral Nutrition 1,920 ML 80 ML IV (20:46)
[2024-08-28 22:25] VITALS: BP 137/79; PULSE 77; RESP 18; TEMP 37.1; O2SAT 92
[2024-08-29] VITALS (8 sets, daily range): BP systolic 123–128; BP diastolic 64–71; PULSE 69–83; RESP 16–20; TEMP 36.4–36.9; O2SAT 83–92
[2024-08-29] MEDS: vancomycin HCL 1,500 MG in 0.9 % Sodium Chloride 500 ML 333.33 MG IV ×2 (01:55→14:38)
[2024-08-29] MEDS: HYDROmorphone HCl 1 MG/ML SYRINGE IVPUSH (05:40)
[2024-08-29] MEDS: diphenhydrAMINE HCL 50 MG/ML VIAL 25 MG IVPUSH ×3 (05:40→17:59)
[2024-08-29] MEDS: ondansetron HCL 4 MG/2 ML VIAL IVPUSH ×3 (05:40→18:00)
[2024-08-29] MEDS: Piperacillin Sodium/Tazobactam 3.375 GM in 0.9 % Sodium Chloride 50 ML IV ×3 (06:01→18:00)
[2024-08-29] MEDS: Fluticasone/Vilanterol 200/25 BLST.W.DEV 1 PUFF INHALE (08:11)
[2024-08-29] MEDS: Albuterol/Iprat 2.5/0.5MG 3 ML AMPUL.NEB INHALE ×3 (08:11→19:28)
[2024-08-29] MEDS: guaiFENesin LA 600 MG TAB.ER.12H PO ×2 (08:26→21:09)
[2024-08-29] MEDS: methylPREDNISolone Sod Succ 40 MG/ML VIAL IVPUSH ×2 (08:26→21:09)
[2024-08-29] MEDS: Apixaban 5 MG TABLET PO ×2 (08:26→21:09)
[2024-08-29] MEDS: levETIRAcetam Oral Soln 500 MG/5 ML 700 MG PO ×2 (08:26→21:09)
[2024-08-29] MEDS: Dicyclomine HCl 10 MG CAPSULE PO ×4 (08:26→21:09)
[2024-08-29] MEDS: 0.9 % Sodium Chloride Flush 3 ML SYRINGE IVFLUSH ×3 (08:27→21:13)
[2024-08-29 08:41] LABS: Albumin Level 3.3 g/dL (3.5-5.0); Anion Gap 9 (12-20); Blood Urea Nitrogen 20 mg/dL (9-16); Calcium 8.7 mg/dL (8.4-10.2); Carbon Dioxide 24 mmol/L (22-29); Chloride 115 mmol/L (96-108); Creatinine Clr Calc Pharmacy 104.8; Estimated Glomerular Filt Rate > 60; Glucose Random 212 mg/dL (60-115); Magnesium 2.6 mg/dL (1.6-2.6); Phosphorus 3.1 mg/dL (2.7-4.5); Sodium 144 mmol/L (135-145)
--- NOTE | 2024-08-29 08:52 | P.PNIM_ITS ---
Subjective Subjective Date of Service: 08/29/24 Interval History: Seen and this morning Follow-up for coronavirus, influenza a, pneumonia, norovirus Patient not feeling well, persistent cough, reports worsening sob still with abd pain but seems chronic Review of Systems Review of Systems: Yes all other systems are reviewed and are negative Constitutional Constitutional: Denies chills and Denies fever(s) Cardiovascular Cardiovascular: Denies chest pain and Reports dyspnea Respiratory Respiratory: Reports cough and Reports dyspnea Gastrointestinal Gastrointestinal: Reports abdominal pain, Denies nausea and Denies vomiting Physical Exam 2 Vital Signs: Vital Signs: Last Vital Signs Temp 98.4 F 08/29/24 05:31 Pulse 75 08/29/24 08:12 Resp 20 08/29/24 08:12 BP 127/69 08/29/24 05:31 Pulse Ox 92 08/29/24 05:31 O2 Del Method Nasal Cannula 08/29/24 05:31 O2 Flow Rate 1 08/29/24 05:31 BMI result Body Mass Index 26.9 Appearing in no acute distress lung sounds are clear to auscultation heart regular rate rhythm, clear S1, S2 positive bowel sounds, abdomen is soft, nontender neuro patient is alert x3, no focal deficits Objective Data Active Medications Acetaminophen (Acetaminophen 325 Mg Tablet) 650 mg PO Q6H PRN PRN Reason: Pain, Mild 1-3,fever,headache Last Admin: 08/23/24 09:21 Dose: 650 mg Documented By: JACINTO Acetaminophen/Butalbital/Caffeine (Butalb/Acetamin/Caff 50/325/40 Tablet) 1 tab PO Q4H PRN PRN Reason: Headache Last Admin: 08/27/24 08:36 Dose: 1 tab Documented By: ALANA Albuterol/Ipratropium (Albuterol/Iprat 2.5/0.5mg 3 Ml Ampul.Neb) 3 ml INHALE RQ6H WHILE AWAKE [facility] Last Admin: 08/29/24 08:11 Dose: 3 ml Documented By: BETTY Apixaban (Apixaban 5 Mg Tablet) 5 mg PO BID [facility] Last Admin: 08/29/24 08:26 Dose: 5 mg Documented By: DOBROB Calcium Carbonate (Calcium Carbonate 750 Mg Tab.Chew) 750 mg PO Q4H PRN PRN Reason: Heartburn Dicyclomine HCl (Dicyclomine Hcl 10 Mg Capsule) 10 mg PO QIDACHS [facility] Last Admin: 08/29/24 08:26 Dose: 10 mg Documented By: FCO Diphenhydramine HCl (Diphenhydramine Hcl 50 Mg/Ml Vial) 25 mg IVPUSH Q6H PRN PRN Reason: Itching Last Admin: 08/29/24 05:40 Dose: 25 mg Documented By: PRISCA Fluticasone/Vilanterol (Fluticasone/Vilanterol 200/25 Blst.W.Dev) 1 puff INHALE Q24H [facility] Last Admin: 08/29/24 08:11 Dose: 1 puff Documented By: BETTY Guaifenesin (Guaifenesin La 600 Mg Tab.Er.12h) 600 mg PO BID [facility] Last Admin: 08/29/24 08:26 Dose: 600 mg Documented By: FCO Guaifenesin/Dextromethorphan (Guaifenesin Dm 200/20/10 Ml 10 Ml Syrup) 10 ml PO Q6H PRN PRN Reason: Cough Last Admin: 08/28/24 08:20 Dose: 10 ml Documented By: ALANA Hydromorphone HCl (Hydromorphone Hcl 1 Mg/Ml Syringe) 1 mg IVPUSH Q6H PRN; Protocol PRN Reason: Pain, Severe (Pain Scale 7-10) Last Admin: 08/29/24 05:40 Dose: 1 mg Documented By: PRISCA Piperacillin Sod/Tazobactam (Sod 3.375 gm/ Sodium Chloride) 50 mls @ 100 mls/hr IV Q6H [facility] Last Infusion: 08/29/24 06:31 Dose: Infused Documented By: PRISCA Nutrition (Parenteral) (Parenteral Nutrition) 1,920 mls @ 80 mls/hr IV .Q24H [facility]; Protocol Stop: 08/29/24 20:59 Last Admin: 08/28/24 20:46 Dose: 80 mls/hr Documented By: PRISCA Vancomycin HCl 1,500 mg/ (Sodium Chloride) 500 mls @ 333.333 mls/hr IV Q12H [facility] Last Infusion: 08/29/24 03:26 Dose: Infused Documented By: PRISCA Levetiracetam (Levetiracetam Oral Soln 500 Mg/5 Ml) 700 mg PO BID [facility] Last Admin: 08/29/24 08:26 Dose: 700 mg Documented By: FCO Magnesium Hydroxide (Milk Of Magnesia 30 Ml Oral.Susp) 30 ml PO DAILY PRN PRN Reason: Constipation Melatonin (Melatonin 3 Mg Tablet) 6 mg PO BEDTIME PRN PRN Reason: Insomnia Methylprednisolone Sodium Succinate (Methylprednisolone Sod Succ 40 Mg/Ml Vial) 40 mg IVPUSH Q12H [facility] Last Admin: 08/29/24 08:26 Dose: 40 mg Documented By: FCO Ondansetron HCl (Ondansetron Hcl 4 Mg/2 Ml Vial) 4 mg IVPUSH Q6H PRN PRN Reason: Nausea and Vomiting Last Admin: 08/29/24 05:40 Dose: 4 mg Documented By: PRISCA Pharmacy Consult (Consult Rx Parenteral Nutrition Ordering) 1 each MISCELLANE DAILY PRN PRN Reason: Consult order Pharmacy Consult (Consult Rx Vancomycin Dosing) 1 each MISCELLANE DAILY PRN PRN Reason: Consult order Promethazine HCl (Promethazine Hcl 25 Mg Tablet) 25 mg PO QID PRN PRN Reason: Nausea And Vomiting Last Admin: 08/27/24 07:37 Dose: 25 mg Documented By: ALANA Sodium Chloride (0.9 % Sodium Chloride Flush 3 Ml Syringe) 3 ml IVFLUSH QSHIFT [facility] Last Admin: 08/29/24 08:27 Dose: 3 ml Documented By: FCO Labs 08/29/24 08:15 08/29/24 08:15 Labs: Laboratory Results - last 24 hr 08/28/24 08/29/24 12:05 08:15 Hold Purple Top SEE NOTE Anion Gap 9 L Estim Creat Clear Calc 104.8 Estimated GFR > 60 Random Glucose 212 H Calcium 8.7 D Phosphorus 3.1 Magnesium 2.6 Albumin 3.3 L Random Vancomycin 9.4 L Microbiology Microbiology Results: Microbiology 08/23/24 13:24 Blood Culture - Final Blood - Venous No growth after 5 days. 08/23/24 11:14 Blood Culture - Final Blood - Central Line No growth after 5 days. 08/23/24 09:49 Blood Culture - Final Blood - Venous No growth after 5 days. Assessment and Plan (1) Norovirus: Status: Acute (2) Influenza A: Status: Acute (3) Colitis: Status: Acute Plan 44 yo F with with history of Behcet's disease, gastroparesis on TPN, anxiety, depression, chronic pain on dialudid, and seizure disorder who presented with abdominal pain associated with nausea/vomiting/diarrhea. CT showing possible colitis found to have norovirus and subsequently developed fever and tested + for influenza Pneumonia Repeat chest CT showing more confluence right lower lobe pneumonia extending into the right middle lobe with parapneumonic effusion and loculation suggesting possible empyema Antibiotics switched to vancomycin and Zosyn pulmonary consultation> rec chest tube, not enough fluid to drain according to IR. plan for 2 weeks abx on dc Solu-Medrol Continue scheduled DuoNebs Continue supplemental oxygen to keep oxygen saturation greater than 90% lost IV access, midline placed home oxygen evaluation will discuss with thoracic re loculated effusion, ? decortication Abdominal pain diarrhea resolved secondary to Norovirus. 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 Resolved meets sepsis criteria with fever, leukopenia, tachycardia probable ?viral sepsis due to norovirus and viral pneumonia lactic acid within normal limits blood cultures negative Pancytopenia likely due to acute viral illness follow CBC influenza A 08/23/24 tamiflu symptomatic support svc obstruction, chronic incidental on imaging, known to pt Chronic pain Resume home PO dilaudid today, IV stopped Crohn's disease not currently on therapy receives TPN at home, will continue has TPN port History of PE/DVT previously on eliquis, do not see it on claim history but patient reports continue Eliquis History of seizure d/o continue Keppra Full Code DVT pptx - Eliquis DISPO PT rec home Pt requires ongoing inpatient stay for pneumonia,severe abdominal pain and nausea requiring multiple doses of IV treatment + CT concerning for possible colitis, complicated by underlying crohn's, bachet's, chronic pain syndrome and chronic TPN use Quality Stroke Does the patient have a stroke diagnosis?: No VTE Prior VTE?: No VTE Risk Level:: Medical - moderate - high VTE Device Contraindication: N/A - Device Ordered VTE Drug Contraindication: N/A - Med Ordered
--- NOTE | 2024-08-29 10:18 | MHC.CLN ---
F/U PT IS ON CLEAR LIQUID DIET WITH VARIABLE PO INTAKE. REVIEWED LABS. COMMUNICATED WITH PHARMACY. CONTINUE TPN AT 80 ML PER HOUR, NO LIPIDS ORDERED TODAY, PROVIDES 960 KCALS (19.2 KCALS/KG IBW), 70G PROTEIN (1.4 G/KG IBW), 200 G DEXTROSE REPLETE LYTES NEEDED. CONTINUE SCHEDULE OF NO LIPIDS ON TUESDAY AND TUESDAY. MONITOR PO INTAKE, TPN TOLERANCE AND LYTES.
[2024-08-29 11:08] LABS: Hematocrit 30.1 % (37.0-47.0); Hemoglobin 10.2 g/dl (12.0-16.0); Mean Corpuscular HGB Conc 33.9 g/dl (31.0-35.0); Mean Corpuscular Hemoglobin 29.5 pg (27.0-33.0); Platelet Count 165 X10*3/uL (160-400); Red Blood Count 3.46 X10*6/uL (4.20-5.50); Red Cell Distribution Width 13.4 % (11.0-16.0); White Blood Count 6.4 X10*3/uL (4.8-10.8)
--- NOTE | 2024-08-29 11:11 | MHC.CM.PN ---
Addendum entered by Isamar Mclaughlin RN 08/29/24 11:14: PER PT - NO SKILLED THERAPY INDICATED. Original Note: PER MD ROUNDS PATIENT NOT MEDICALLY CLEARED FOR DC. POTENTIAL DC TOMORROW. OPT[facility] CARE UPDATED. PT EVAL PENDING. CM WILL CONTINUE TO FOLLOW.
[2024-08-29] MEDS: HYDROmorphone HCl 2 MG TABLET 4 MG PO (11:58)
[2024-08-29 12:36] LABS: Vancomycin Random 11.7 mcg/mL (15-20)
--- NOTE | 2024-08-29 14:09 | HO.THORCONS ---
History of Present Illness Consult details Consult date: 08/29/24 Narrative: 44 year old female with with PMH significant for Behcet's disease, gastroparesis on TPN, anxiety, depression, chronic pain on dilaudid, seizure disorder who initially presented to the ED with abdominal pain associated with nausea/vomiting/diarrhea. CT showed possible colitis and was found to have norovirus. She subsequently developed fever and cough during her stay and tested positive for influenza, secondary bacterial pneumonia. She is on vanco and zosyn. CT chest was obtained which shows RLL extending into RML pneumonia with small effusion, likely loculated. No improvement on f/u imaging. She reports no improvement in her symptoms and is short of breath at baseline and unable to speak full sentences, has difficulty ambulating to bathroom. She reports history of left chylothorax requiring thoracotomy and decortication in 2011 at [facility]. She also required R chest tubes at that time but no chemical pleurodesis or surgical intervention. Review of Systems Review of Systems: Yes all other systems are reviewed and are negative PMFSH Past Medical History Medical History (Updated 08/29/24 @ 14:17 by Jessica Billingsley PA-C) Enterocutaneous fistula Pulmonary emboli Crohn's disease Chronic, continuous use of opioids Immunosuppression Absence seizure disorder DVT (deep venous thrombosis) Pyloric stenosis Asthma Common variable immunodeficiency Spondylolisthesis, lumbar region Spondylosis of lumbar region without myelopathy or radiculopathy Abdominal pain, chronic, generalized Gastroparesis Spontaneous pneumothorax Chronic pain syndrome Cervicalgia Low back pain Behcet's disease Family History Family History Father Hairy cell leukemia Surgical History Surgical History (Updated 08/29/24 @ 14:17 by Jessica Billingsley PA-C) History of thoracotomy Hx of gastrostomy History of hernia surgery Social History Social History Household Members: Children Household Members Other:: son Housing: House Do you presently have visiting nurse or other home services: No Unable to assess alcohol history related to: Unknown Alcohol intake: never Patient Tobacco Use Status: Never used Tobacco Second Hand Smoke Exposure: No Advance Directives Date on File: 04/22/23 service: No Current occupational status: unemployed Meds Allergies Allergy/AdvReac Type Severity Reaction Status Date / Time ciprofloxacin [Cipro] Allergy Unknown Hives Verified 08/19/24 21:52 levofloxacin [Levaquin] Allergy Unknown Hives Verified 08/19/24 21:52 metoclopramide [Reglan] Allergy Unknown Hives Verified 08/19/24 21:52 ondansetron [Zofran] Allergy Unknown Itching Verified 08/19/24 21:52 penicillin V Allergy Unknown Hives Verified 08/19/24 21:52 prochlorperazine Allergy Unknown Shortness Verified 08/19/24 21:52 [From Compazine] of Breath Sulfa (Sulfonamide Allergy Unknown Hives Verified 08/19/24 21:52 Antibiotics) thalidomide [From Thalomid] Allergy Unknown Rash Verified 08/19/24 21:52 haloperidol [From Haldol] Allergy Itching Verified 08/19/24 21:52 Active Medications: Current Medications Acetaminophen (Acetaminophen 325 Mg Tablet) 650 mg PO Q6H PRN PRN Reason: Pain, Mild 1-3,fever,headache Last Admin: 08/23/24 09:21 Dose: 650 mg Acetaminophen/Butalbital/Caffeine (Butalb/Acetamin/Caff 50/325/40 Tablet) 1 tab PO Q4H PRN PRN Reason: Headache Last Admin: 08/27/24 08:36 Dose: 1 tab Albuterol/Ipratropium (Albuterol/Iprat 2.5/0.5mg 3 Ml Ampul.Neb) 3 ml INHALE RQ6H WHILE AWAKE [facility] Last Admin: 08/29/24 13:47 Dose: 3 ml Apixaban (Apixaban 5 Mg Tablet) 5 mg PO BID [facility] Last Admin: 08/29/24 08:26 Dose: 5 mg Calcium Carbonate (Calcium Carbonate 750 Mg Tab.Chew) 750 mg PO Q4H PRN PRN Reason: Heartburn Dicyclomine HCl (Dicyclomine Hcl 10 Mg Capsule) 10 mg PO QIDACHS [facility] Last Admin: 08/29/24 11:57 Dose: 10 mg Diphenhydramine HCl (Diphenhydramine Hcl 50 Mg/Ml Vial) 25 mg IVPUSH Q6H PRN PRN Reason: Itching Last Admin: 08/29/24 11:57 Dose: 25 mg Diphenhydramine HCl (Diphenhydramine Hcl 50 Mg/Ml Vial) 25 mg IV QID PRN PRN Reason: Nausea Fluticasone/Vilanterol (Fluticasone/Vilanterol 200/25 Blst.W.Dev) 1 puff INHALE Q24H [facility] Last Admin: 08/29/24 08:11 Dose: 1 puff Guaifenesin (Guaifenesin La 600 Mg Tab.Er.12h) 600 mg PO BID [facility] Last Admin: 08/29/24 08:26 Dose: 600 mg Guaifenesin/Dextromethorphan (Guaifenesin Dm 200/20/10 Ml 10 Ml Syrup) 10 ml PO Q6H PRN PRN Reason: Cough Last Admin: 08/28/24 08:20 Dose: 10 ml Hydromorphone HCl (Hydromorphone Hcl 2 Mg Tablet) 4 mg PO BID PRN PRN Reason: severe pain (scale score 7-10) Last Admin: 08/29/24 11:58 Dose: 4 mg Piperacillin Sod/Tazobactam (Sod 3.375 gm/ Sodium Chloride) 50 mls @ 100 mls/hr IV Q6H [facility] Last Infusion: 08/29/24 12:40 Dose: Infused Nutrition (Parenteral) (Parenteral Nutrition) 1,920 mls @ 80 mls/hr IV .Q24H [facility]; Protocol Stop: 08/29/24 20:59 Last Admin: 08/28/24 20:46 Dose: 80 mls/hr Vancomycin HCl 1,500 mg/ (Sodium Chloride) 500 mls @ 333.333 mls/hr IV Q12H [facility] Last Infusion: 08/29/24 03:26 Dose: Infused Nutrition (Parenteral) (Parenteral Nutrition) 1,920 mls @ 80 mls/hr IV .Q24H [facility]; Protocol Stop: 08/30/24 20:59 Levetiracetam (Levetiracetam Oral Soln 500 Mg/5 Ml) 700 mg PO BID [facility] Last Admin: 08/29/24 08:26 Dose: 700 mg Magnesium Hydroxide (Milk Of Magnesia 30 Ml Oral.Susp) 30 ml PO DAILY PRN PRN Reason: Constipation Melatonin (Melatonin 3 Mg Tablet) 6 mg PO BEDTIME PRN PRN Reason: Insomnia Methylprednisolone Sodium Succinate (Methylprednisolone Sod Succ 40 Mg/Ml Vial) 40 mg IVPUSH Q12H [facility] Last Admin: 08/29/24 08:26 Dose: 40 mg Ondansetron HCl (Ondansetron Hcl 4 Mg/2 Ml Vial) 4 mg IVPUSH Q6H PRN PRN Reason: Nausea and Vomiting Last Admin: 08/29/24 11:57 Dose: 4 mg Pharmacy Consult (Consult Rx Parenteral Nutrition Ordering) 1 each MISCELLANE DAILY PRN PRN Reason: Consult order Pharmacy Consult (Consult Rx Vancomycin Dosing) 1 each MISCELLANE DAILY PRN PRN Reason: Consult order Promethazine HCl (Promethazine Hcl 25 Mg Tablet) 25 mg PO QID PRN PRN Reason: Nausea And Vomiting Last Admin: 08/27/24 07:37 Dose: 25 mg Sodium Chloride (0.9 % Sodium Chloride Flush 3 Ml Syringe) 3 ml IVFLUSH QSHIFT [facility] Last Admin: 08/29/24 08:27 Dose: 3 ml Home Medications ?Medication ?Instructions ?Recorded ?Confirmed ?Last Taken ?Type fluticasone furoate 200 1 inh inhalation Q24H 12/12/20 08/20/24 08/19/24 History mcg-vilanterol 25 mcg/dose inhalation powder (Breo Ellipta) umeclidinium 62.5 mcg/actuation 1 inh inhalation DAILY 12/12/20 08/20/24 08/19/24 History blister powder for inhalation (Incruse Ellipta) diphenhydramine HCl 50 mg/mL 25 mg IV QID PRN Nausea 03/12/21 08/20/24 02/04/23 History injection solution ondansetron HCl (PF) 4 mg/2 mL 4 mg IV QID PRN Nausea 03/12/21 08/20/24 02/04/23 History injection solution promethazine 25 mg tablet 25 mg PO QID PRN Nausea And 08/18/21 08/20/24 02/04/23 History Vomiting levetiracetam 100 mg/mL oral 700 mg PO BID 08/20/24 08/20/24 08/19/24 History solution Physical Exam Vital Signs: Vital Signs: Last Vital Signs Temp 98.4 F 08/29/24 05:31 Pulse 70 08/29/24 13:48 Resp 16 08/29/24 13:48 BP 127/69 08/29/24 05:31 Pulse Ox 92 08/29/24 05:31 O2 Del Method Nasal Cannula 08/29/24 05:31 O2 Flow Rate 1 08/29/24 05:31 BMI result Body Mass Index 26.9 Const: General: alert, anxious and ill appearing Orientation/consciousness: patient oriented x3 Chest: Other: left thoracotomy scar well healed multiple small scars from b/l chest tubes Chest palpation & inspection: normal palpation of entire chest wall Resp: Effort & Inspection: not able to speak in complete sentences, Actively coughing, not labored, tachypneic, no tracheal deviation, no tripod positioning and no use of accessory muscles GI: Other: multiple abdominal scars Palpation (GI): Soft to palpation Skin: General skin exam: no rashes or lesions noted Neuro: General: patient oriented x3 and moves all extremities Results Labs 08/29/24 08:15 08/29/24 08:15 Labs: Abnormal lab results 08/29/24 08/29/24 Range/Units 08:15 11:59 RBC 3.46 L (4.20-5.50) X10*6/uL Hgb 10.2 L (12.0-16.0) g/dl Hct 30.1 L (37.0-47.0) % MPV 13.0 H (9.4-12.3) fL Chloride 115 H (96-108) mmol/L Anion Gap 9 L (12-20) BUN 20 H (9-16) mg/dL Random Glucose 212 H (60-115) mg/dL Albumin 3.3 L (3.5-5.0) g/dL Random Vancomycin 11.7 L (15-20) mcg/mL Short CBC 08/29/24 Range/Units 08:15 WBC 6.4 (4.8-10.8) X10*3/uL Hgb 10.2 L (12.0-16.0) g/dl Hct 30.1 L (37.0-47.0) % Plt Count 165 D (160-400) X10*3/uL BMP 08/29/24 08:15 Sodium 144 Potassium 4.0 Chloride 115 H Carbon Dioxide 24 BUN 20 H Creatinine 0.60 Calcium 8.7 D Liver Function 08/29/24 Range/Units 08:15 Albumin 3.3 L (3.5-5.0) g/dL All other labs normal. Imaging CT scan - chest: report reviewed and image reviewed Assessment and Plan (1) Pneumonia: Status: Acute (2) Pleural effusion: Status: Acute (3) Influenza A: Status: Acute Plan 44 year old female with with PMH significant for Behcet's disease, gastroparesis on TPN, anxiety, depression, chronic pain on dilaudid, seizure disorder admitted with norovirus, subsequently developed flu and secondary PNA. On IV zosyn and vanco without significant improvement. CT chest shows small right pleural effusion, loculated. Recommend attempting nonoperative management in this patient with IR right chest tube insertion into this loculated collection and tPA for fibrinolysis. If she has no improvement or clinically worsens, we did discuss proceeding with right thoracotomy and decortication. She understands and agrees with the plan. OOB as tolerated, incentive spirometry 10x/hr. Procedures Date of Service Date of Service: 08/29/24
[2024-08-29] MEDS: guaiFENesin DM 200/20/10 ML 10 ML SYRUP PO (16:36)
[2024-08-29] MEDS: HYDROmorphone HCl 0.5 MG/0.5 ML SYRINGE IVPUSH (18:36)
--- NOTE | 2024-08-29 19:31 | PC.NURSE ---
Pt with multiple questions. Cheryl Draper in to speak with pt and pt son regarding plans moving forward. Resp therapy in to do home O2 evaluation. No further questions at this time by pt or family
[2024-08-29] MEDS: Parenteral Nutrition 1,920 ML 80 ML IV (21:14)
[2024-08-30] MEDS: Piperacillin Sodium/Tazobactam 3.375 GM in 0.9 % Sodium Chloride 50 ML IV ×4 (00:16→17:59)
[2024-08-30] MEDS: ondansetron HCL 4 MG/2 ML VIAL IVPUSH ×4 (01:10→21:55)
[2024-08-30] MEDS: diphenhydrAMINE HCL 50 MG/ML VIAL 25 MG IVPUSH ×4 (01:10→21:55)
[2024-08-30] MEDS: vancomycin HCL 1,500 MG in 0.9 % Sodium Chloride 500 ML 333.33 MG IV ×2 (01:15→13:52)
[2024-08-30] MEDS: HYDROmorphone HCl 0.5 MG/0.5 ML SYRINGE IVPUSH ×4 (03:00→21:31)
[2024-08-30 06:00] VITALS: BP 118/65; PULSE 64; RESP 18; TEMP 36.8; O2SAT 93
[2024-08-30 07:27] LABS: Albumin Level 3.2 g/dL (3.5-5.0); Anion Gap 12 (12-20); Blood Urea Nitrogen 18 mg/dL (9-16); Calcium 8.4 mg/dL (8.4-10.2); Carbon Dioxide 25 mmol/L (22-29); Chloride 111 mmol/L (96-108); Creatinine Clr Calc Pharmacy 99.9; Estimated Glomerular Filt Rate > 60; Glucose Random 206 mg/dL (60-115); Magnesium 2.6 mg/dL (1.6-2.6); Phosphorus 2.7 mg/dL (2.7-4.5); Potassium 3.8 mmol/L (3.3-5.1); Sodium 144 mmol/L (135-145)
[2024-08-30] MEDS: levETIRAcetam Oral Soln 500 MG/5 ML 700 MG PO ×2 (08:29→21:03)
[2024-08-30] MEDS: Dicyclomine HCl 10 MG CAPSULE PO ×4 (08:29→21:03)
[2024-08-30] MEDS: Apixaban 5 MG TABLET PO (08:29)
[2024-08-30] MEDS: guaiFENesin LA 600 MG TAB.ER.12H PO ×2 (08:29→21:03)
[2024-08-30] MEDS: methylPREDNISolone Sod Succ 40 MG/ML VIAL IVPUSH ×2 (08:30→21:04)
[2024-08-30] MEDS: 0.9 % Sodium Chloride Flush 3 ML SYRINGE IVFLUSH (08:31)
[2024-08-30 08:38] VITALS: PULSE 89; RESP 19; O2SAT 95
[2024-08-30] MEDS: Fluticasone/Vilanterol 200/25 BLST.W.DEV 1 PUFF INHALE (08:38)
[2024-08-30] MEDS: Albuterol/Iprat 2.5/0.5MG 3 ML AMPUL.NEB INHALE ×2 (08:38→14:46)
[2024-08-30] MEDS: guaiFEN/Codeine SF 200/20/10ML 10 ML LIQUID 5 ML PO (10:48)
--- NOTE | 2024-08-30 11:19 | PM.PNTS ---
Subjective Subjective Date of Service: 08/30/24 <Jessica Billingsley PA-C - Last Filed: 08/30/24 11:25> 08/30/24 <Nasir Astorga MD - Last Filed: 08/30/24 12:27> Interval history: Continues to feel unwell and c/o shortness of breath with minimal exertion. <Jessica Billingsley PA-C - Last Filed: 08/30/24 11:25> Physical Exam Vital Signs: Vital Signs: Last Vital Signs Temp 98.3 F 08/30/24 06:00 Pulse 89 08/30/24 08:38 Resp 19 08/30/24 08:38 BP 118/65 08/30/24 06:00 Pulse Ox 93 08/30/24 06:00 O2 Del Method Nasal Cannula 08/30/24 06:00 O2 Flow Rate 3 08/30/24 06:00 BMI result Body Mass Index 26.9 <Jessica Billingsley PA-C - Last Filed: 08/30/24 11:25> Const: General: alert, ill appearing and tired appearing <Jessica Billingsley PA-C - Last Filed: 08/30/24 11:25> Orientation/consciousness: patient oriented x3 <TAWANNA Hernandez Last Filed: 08/30/24 11:25> Resp: Effort & Inspection: not able to speak in complete sentences, Actively coughing, not labored, no respiratory distress, tachypneic and no use of accessory muscles <Jessica Billingsley PA-C - Last Filed: 08/30/24 11:25> Cardio: Rate: regular rate <Jessica Billingsley PA-C - Last Filed: 08/30/24 11:25> Skin: General skin exam: no rashes or lesions noted <TAWANNA Hernandez Last Filed: 08/30/24 11:25> Neuro: General: patient oriented x3 and moves all extremities <TAWANNA Hernandez Last Filed: 08/30/24 11:25> Procedures Date of Service Date of Service: 08/30/24 <Jessica Billingsley PA-C - Last Filed: 08/30/24 11:25> 08/30/24 <Nasir Astorga MD - Last Filed: 08/30/24 12:27> Progress Note: A&P Assessment and plan (1) Pleural effusion: Status: Acute <Jessica Billingsley PA-C - Last Filed: 08/30/24 11:25> (2) Pneumonia: Status: Acute <Jessica Billingsley PA-C - Last Filed: 08/30/24 11:25> Assessment and Plan: Discussed with IR and lung is completely up with very minimal collection and therefore unable to place chest tube, chemical decortication not an option. She continues to be very symptomatic, necessitating supplemental oxygen without improvement with IV abx, supportive measures. Discussed proceeding with right thoractomy, decortication. This was initially planned for tomorrow unfortunately her last eliquis dose was this morning. Hold eliquis. Plan for Tuesday unless she has clinical deterioration. <Jessica Billingsley PA-C - Last Filed: 08/30/24 11:25> Discussed with IR and lung is completely up with very minimal collection and therefore unable to place chest tube, chemical decortication not an option. She continues to be very symptomatic, necessitating supplemental oxygen without improvement with IV abx, supportive measures. Discussed proceeding with right thoractomy, decortication. This was initially planned for tomorrow unfortunately her last eliquis dose was this morning. Hold eliquis. Plan for Tuesday unless she has clinical deterioration. As noted above <Nasir Astorga MD - Last Filed: 08/30/24 12:27> Time Spent With Patient Time: Total time managing care of this patient today ____ minutes. <Jessica Billingsley PA-C - Last Filed: 08/30/24 11:25> Quality Stroke Does the patient have a stroke diagnosis?: No <Jessica Billingsley PA-C - Last Filed: 08/30/24 11:25> VTE Prior VTE?: No <Jessica Billingsley PA-C - Last Filed: 08/30/24 11:25> VTE Risk Level:: Medical - moderate - high <TAWANNA Hernandez Last Filed: 08/30/24 11:25> VTE Device Contraindication: N/A - Device Ordered <Jessica Billingsley PA-C - Last Filed: 08/30/24 11:25> VTE Drug Contraindication: N/A - Med Ordered <TAWANNA Hernandez Last Filed: 08/30/24 11:25>
--- NOTE | 2024-08-30 13:22 | HE.PHANOTE ---
VANCO DOSE ADJUSTMENT BASED ON RENAL FUNCTION AND TROUGH OF 15 DOSE CONTINUED AT 1500 Q 12H. NEXT LEVEL AT 08/31 @ 1200
[2024-08-30 14:00] VITALS: BP 115/62; PULSE 55; RESP 18; TEMP 36.6; O2SAT 94
--- NOTE | 2024-08-30 14:17 | P.PNIM_ITS ---
Subjective Subjective Date of Service: 08/30/24 Interval History: Seen and examined this morning follow-up for pneumonia/pleural effusion Reporting cough, shortness of breath, no fever Review of Systems Review of Systems: Yes all other systems are reviewed and are negative Constitutional Constitutional: Denies chills and Denies fever(s) Cardiovascular Cardiovascular: Denies chest pain and Denies palpitations Respiratory Respiratory: Reports cough Endocrine Endocrine: Denies palpitations Physical Exam 2 Vital Signs: Vital Signs: Last Vital Signs Temp 98.3 F 08/30/24 06:00 Pulse 89 08/30/24 08:38 Resp 19 08/30/24 08:38 BP 118/65 08/30/24 06:00 Pulse Ox 93 08/30/24 06:00 O2 Del Method Nasal Cannula 08/30/24 06:00 O2 Flow Rate 3 08/30/24 06:00 BMI result Body Mass Index 26.9 Const: Other: General: alert and awake Nutritional Appearance: average body habitus Orientation/consciousness: patient oriented x3 HEENT: Other: dry MM Resp: Other: right side rhonchi Effort & Inspection: normal respiratory effort, able to speak in complete sentences, no respiratory distress and no use of accessory muscles Cardio: Rate: regular rate GI: Inspection: No distended Palpation (GI): Soft to palpation Neuro: General: patient oriented x3 and moves all extremities Extrem: General: Yes no pedal edema Objective Data Active Medications Acetaminophen (Acetaminophen 325 Mg Tablet) 650 mg PO Q6H PRN PRN Reason: Pain, Mild 1-3,fever,headache Last Admin: 08/23/24 09:21 Dose: 650 mg Documented By: JACINTO Acetaminophen/Butalbital/Caffeine (Butalb/Acetamin/Caff 50/325/40 Tablet) 1 tab PO Q4H PRN PRN Reason: Headache Last Admin: 08/27/24 08:36 Dose: 1 tab Documented By: ALANA Albuterol/Ipratropium (Albuterol/Iprat 2.5/0.5mg 3 Ml Ampul.Neb) 3 ml INHALE RQ6H WHILE AWAKE [facility] Last Admin: 08/30/24 08:38 Dose: 3 ml Documented By: RATNA Apixaban (Apixaban 5 Mg Tablet) 5 mg PO BID [facility] Last Admin: 08/30/24 08:29 Dose: 5 mg Documented By: FCO Calcium Carbonate (Calcium Carbonate 750 Mg Tab.Chew) 750 mg PO Q4H PRN PRN Reason: Heartburn Dicyclomine HCl (Dicyclomine Hcl 10 Mg Capsule) 10 mg PO QIDACHS [facility] Last Admin: 08/30/24 13:20 Dose: 10 mg Documented By: FCO Diphenhydramine HCl (Diphenhydramine Hcl 50 Mg/Ml Vial) 25 mg IVPUSH Q6H PRN PRN Reason: Itching Last Admin: 08/30/24 08:30 Dose: 25 mg Documented By: FCO Diphenhydramine HCl (Diphenhydramine Hcl 50 Mg/Ml Vial) 25 mg IV QID PRN PRN Reason: Nausea Fluticasone/Vilanterol (Fluticasone/Vilanterol 200/25 Blst.W.Dev) 1 puff INHALE Q24H [facility] Last Admin: 08/30/24 08:38 Dose: 1 puff Documented By: RATNA Guaifenesin (Guaifenesin La 600 Mg Tab.Er.12h) 600 mg PO BID [facility] Last Admin: 08/30/24 08:29 Dose: 600 mg Documented By: FCO Guaifenesin/Codeine Phosphate (Guaifen/Codeine Sf 200/20/10ml 10 Ml Liquid) 5 ml PO Q4H PRN PRN Reason: Cough Last Admin: 08/30/24 10:48 Dose: 5 ml Documented By: FCO Hydromorphone HCl (Hydromorphone Hcl 2 Mg Tablet) 4 mg PO BID PRN PRN Reason: severe pain (scale score 7-10) Last Admin: 08/29/24 11:58 Dose: 4 mg Documented By: FCO Hydromorphone HCl (Hydromorphone Hcl 0.5 Mg/0.5 Ml Syringe) 0.5 mg IVPUSH Q4H PRN; Protocol PRN Reason: Pain, Severe (Pain Scale 7-10) Last Admin: 08/30/24 08:31 Dose: 0.5 mg Documented By: FCO Piperacillin Sod/Tazobactam (Sod 3.375 gm/ Sodium Chloride) 50 mls @ 100 mls/hr IV Q6H [facility] Last Infusion: 08/30/24 13:55 Dose: Infused Documented By: FCO Vancomycin HCl 1,500 mg/ (Sodium Chloride) 500 mls @ 333.333 mls/hr IV Q12H [facility] Last Admin: 08/30/24 13:52 Dose: 333.33 mls/hr Documented By: FCO Nutrition (Parenteral) (Parenteral Nutrition) 1,920 mls @ 80 mls/hr IV .Q24H [facility]; Protocol Stop: 08/30/24 20:59 Last Admin: 08/29/24 21:14 Dose: 80 mls/hr Documented By: ALMAZ Nutrition (Parenteral) (Parenteral Nutrition) 1,920 mls @ 80 mls/hr IV .Q24H [facility]; Protocol Stop: 08/31/24 20:59 Levetiracetam (Levetiracetam Oral Soln 500 Mg/5 Ml) 700 mg PO BID [facility] Last Admin: 08/30/24 08:29 Dose: 700 mg Documented By: FCO Magnesium Hydroxide (Milk Of Magnesia 30 Ml Oral.Susp) 30 ml PO DAILY PRN PRN Reason: Constipation Melatonin (Melatonin 3 Mg Tablet) 6 mg PO BEDTIME PRN PRN Reason: Insomnia Methylprednisolone Sodium Succinate (Methylprednisolone Sod Succ 40 Mg/Ml Vial) 40 mg IVPUSH Q12H [facility] Last Admin: 08/30/24 08:30 Dose: 40 mg Documented By: FCO Ondansetron HCl (Ondansetron Hcl 4 Mg/2 Ml Vial) 4 mg IVPUSH Q6H PRN PRN Reason: Nausea and Vomiting Last Admin: 08/30/24 08:30 Dose: 4 mg Documented By: FCO Pharmacy Consult (Consult Rx Parenteral Nutrition Ordering) 1 each MISCELLANE DAILY PRN PRN Reason: Consult order Pharmacy Consult (Consult Rx Vancomycin Dosing) 1 each MISCELLANE DAILY PRN PRN Reason: Consult order Promethazine HCl (Promethazine Hcl 25 Mg Tablet) 25 mg PO QID PRN PRN Reason: Nausea And Vomiting Last Admin: 08/27/24 07:37 Dose: 25 mg Documented By: ALANA Sodium Chloride (0.9 % Sodium Chloride Flush 3 Ml Syringe) 3 ml IVFLUSH QSHIFT [facility] Last Admin: 08/30/24 08:31 Dose: 3 ml Documented By: DOBROB Labs 08/29/24 08:15 08/30/24 06:43 Labs: Laboratory Results - last 24 hr 08/30/24 08/30/24 08/30/24 06:43 11:43 12:16 Anion Gap 12 Estim Creat Clear Calc 99.9 Estimated GFR > 60 Random Glucose 206 H Calcium 8.4 Phosphorus 2.7 Magnesium 2.6 Albumin 3.2 L Random Vancomycin 15.0 Blood Type A Positive Antibody Screen NEGATIVE Assessment and Plan (1) Pleural effusion: Status: Acute (2) Pneumonia: Status: Acute Plan 44 yo F with with history of Behcet's disease, gastroparesis on TPN, anxiety, depression, chronic pain on dialudid, and seizure disorder who presented with abdominal pain associated with nausea/vomiting/diarrhea. CT showing possible colitis found to have norovirus and subsequently developed fever and tested + for influenza Pneumonia Repeat chest CT showing more confluence right lower lobe pneumonia extending into the right middle lobe with parapneumonic effusion and loculation suggesting possible empyema Antibiotics switched to vancomycin and Zosyn pulmonary consultation> rec chest tube, not enough fluid to drain according to IR. plan for 2 weeks abx on dc Solu-Medrol Continue scheduled DuoNebs Continue supplemental oxygen to keep oxygen saturation greater than 90% lost IV access, midline placed thoracic surgery following for loculated effusion, plan for decortication Tuesday as pt on Eliquis; eliquis placed on hold Abdominal pain diarrhea resolved secondary to Norovirus. 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 Resolved meets sepsis criteria with fever, leukopenia, tachycardia probable ?viral sepsis due to norovirus and viral pneumonia lactic acid within normal limits blood cultures negative Pancytopenia likely due to acute viral illness improving. Leukopenia/thrombocytopenia resolved influenza A 08/23/24 Completed course of tamiflu symptomatic support svc obstruction, chronic incidental on imaging, known to pt Chronic pain Resume home PO dilaudid today, IV stopped but resumed again overnight Crohn's disease not currently on therapy receives TPN at home, will continue has TPN port History of PE/DVT previously on eliquis, do not see it on claim history but patient reports Hold Eliquis as above for planned procedure History of seizure d/o continue Keppra Full Code DVT pptx - Eliquis on hold for planned procedure; mechanical DISPO PT rec home when medically ready Pt requires ongoing inpatient stay for pneumonia, now with loculated effusion with plan for decortication complicated by underlying crohn's, bachet's, chronic pain syndrome and chronic TPN use Quality Stroke Does the patient have a stroke diagnosis?: No VTE Prior VTE?: No VTE Risk Level:: Medical - moderate - high VTE Device Contraindication: N/A - Device Ordered VTE Drug Contraindication: N/A - Med Ordered
[2024-08-30 14:50] VITALS: PULSE 67; RESP 18; O2SAT 97
[2024-08-30] MEDS: Parenteral Nutrition 1,920 ML 80 ML IV (21:33)
[2024-08-30 22:00] VITALS: BP 132/73; PULSE 65; RESP 18; TEMP 36.9; O2SAT 94
[2024-08-31] MEDS: Piperacillin Sodium/Tazobactam 3.375 GM in 0.9 % Sodium Chloride 50 ML IV ×4 (00:52→19:53)
[2024-08-31] MEDS: vancomycin HCL 1,500 MG in 0.9 % Sodium Chloride 500 ML 333.33 MG IV ×2 (01:30→14:48)
[2024-08-31 03:04] VITALS: BP 133/78; PULSE 72; RESP 18; TEMP 36.3; O2SAT 97
[2024-08-31] MEDS: HYDROmorphone HCl 0.5 MG/0.5 ML SYRINGE IVPUSH ×4 (04:05→21:59)
[2024-08-31] MEDS: ondansetron HCL 4 MG/2 ML VIAL IVPUSH ×4 (04:41→23:32)
[2024-08-31] MEDS: diphenhydrAMINE HCL 50 MG/ML VIAL 25 MG IVPUSH ×4 (04:41→23:32)
[2024-08-31] MEDS: Albuterol/Iprat 2.5/0.5MG 3 ML AMPUL.NEB INHALE ×2 (07:37→15:33)
[2024-08-31 07:40] VITALS: PULSE 56; RESP 18; O2SAT 97
[2024-08-31] MEDS: Fluticasone/Vilanterol 200/25 BLST.W.DEV 1 PUFF INHALE (07:40)
[2024-08-31 07:49] LABS: Albumin Level 3.2 g/dL (3.5-5.0); Anion Gap 12 (12-20); Blood Urea Nitrogen 17 mg/dL (9-16); Calcium 8.3 mg/dL (8.4-10.2); Carbon Dioxide 26 mmol/L (22-29); Chloride 108 mmol/L (96-108); Creatinine Clr Calc Pharmacy 103.1; Estimated Glomerular Filt Rate > 60; Glucose Random 230 mg/dL (60-115); Magnesium 2.6 mg/dL (1.6-2.6); Phosphorus 2.9 mg/dL (2.7-4.5); Potassium 3.9 mmol/L (3.3-5.1); Sodium 142 mmol/L (135-145)
[2024-08-31 07:50] VITALS: BP 110/59; PULSE 61; RESP 18; TEMP 36; O2SAT 99
[2024-08-31] MEDS: levETIRAcetam Oral Soln 500 MG/5 ML 700 MG PO ×2 (08:28→20:27)
[2024-08-31] MEDS: Dicyclomine HCl 10 MG CAPSULE PO ×4 (08:28→20:28)
[2024-08-31] MEDS: guaiFENesin LA 600 MG TAB.ER.12H PO ×2 (08:28→20:28)
[2024-08-31] MEDS: methylPREDNISolone Sod Succ 40 MG/ML VIAL IVPUSH (08:28)
[2024-08-31] MEDS: 0.9 % Sodium Chloride Flush 3 ML SYRINGE IVFLUSH ×3 (08:30→19:53)
--- NOTE | 2024-08-31 10:07 | MHC.CLN ---
F/U DIET ADVANCED TO REGULAR ON 08/30. PO INTAKE APPEARS TO BE POOR, 0-25%. REVIEWED LABS. COMMUNICATED WITH PHARMACY. CONTINUE TPN AT 80 ML PER HOUR, NO LIPIDS ORDERED TODAY, PROVIDES 960 KCALS (19.2 KCALS/KG IBW), 70G PROTEIN (1.4 G/KG IBW), 200 G DEXTROSE REPLETE LYTES NEEDED. CHECK TRIGLYCERIDES. CONTINUE SCHEDULE OF NO LIPIDS ORDERED ON TUESDAY AND TUESDAY. MONITOR PO INTAKE, TPN TOLERANCE AND LYTES.
--- NOTE | 2024-08-31 11:06 | MHC.CM.PN ---
Per MD rounds not medically cleared for dc. Plan for procedure Tuesday. [facility] updated. If patient requires additional [facility] on dc, [facility] can accept and [facility] will continue to manage the line and TPN. CM will continue to follow.
[2024-08-31 12:31] LABS: Vancomycin Random 15.1 mcg/mL (15-20)
--- NOTE | 2024-08-31 12:41 | HE.PHANOTE ---
VANCO DOSE ADJUSTMENT BASED ON SCR AND TROUGH OF 15.1 DOSE CONTINUED AT 1500 Q12H. NEXT LEVEL 09/02 @ 1200
--- NOTE | 2024-08-31 14:19 | HO.PM.IMPN ---
Subjective Subjective Date of Service: 08/31/24 Interval History: seen and examined this morning follow up for pneumonia, pleural effusion no change, ongoing cough, sob Review of Systems Review of Systems: Yes all other systems are reviewed and are negative Constitutional Constitutional: Denies chills and Denies fever(s) Cardiovascular Cardiovascular: Denies chest pain and Denies palpitations Endocrine Endocrine: Denies palpitations Physical Exam Vital Signs: Vital Signs: Last Vital Signs Temp 96.8 F 08/31/24 07:50 Pulse 61 08/31/24 07:50 Resp 18 08/31/24 07:50 BP 110/59 L 08/31/24 07:50 Pulse Ox 99 08/31/24 07:50 O2 Del Method Nasal Cannula 08/31/24 07:50 O2 Flow Rate 3 08/31/24 07:50 BMI result Body Mass Index 26.9 Const: Other: General: alert and awake Nutritional Appearance: average body habitus Orientation/consciousness: patient oriented x3 HEENT: Other: dry MM Resp: Other: right side rhonchi Effort & Inspection: normal respiratory effort, able to speak in complete sentences, no respiratory distress and no use of accessory muscles Cardio: Rate: regular rate GI: Inspection: No distended Palpation (GI): Soft to palpation Neuro: General: patient oriented x3 and moves all extremities Extrem: General: Yes no pedal edema Objective Data Active Medications Acetaminophen (Acetaminophen 325 Mg Tablet) 650 mg PO Q6H PRN PRN Reason: Pain, Mild 1-3,fever,headache Last Admin: 08/23/24 09:21 Dose: 650 mg Documented By: JACINTO Acetaminophen/Butalbital/Caffeine (Butalb/Acetamin/Caff 50/325/40 Tablet) 1 tab PO Q4H PRN PRN Reason: Headache Last Admin: 08/27/24 08:36 Dose: 1 tab Documented By: ALANA Albuterol/Ipratropium (Albuterol/Iprat 2.5/0.5mg 3 Ml Ampul.Neb) 3 ml INHALE RQ6H WHILE AWAKE [facility] Last Admin: 08/31/24 07:37 Dose: 3 ml Documented By: MO Apixaban (Apixaban 5 Mg Tablet) 5 mg PO BID [facility] Last Admin: 08/30/24 08:29 Dose: 5 mg Documented By: FCO Calcium Carbonate (Calcium Carbonate 750 Mg Tab.Chew) 750 mg PO Q4H PRN PRN Reason: Heartburn Dicyclomine HCl (Dicyclomine Hcl 10 Mg Capsule) 10 mg PO QIDACHS [facility] Last Admin: 08/31/24 11:14 Dose: 10 mg Documented By: SHARONDA Diphenhydramine HCl (Diphenhydramine Hcl 50 Mg/Ml Vial) 25 mg IVPUSH Q6H PRN PRN Reason: Itching Last Admin: 08/31/24 11:13 Dose: 25 mg Documented By: SHARONDA Diphenhydramine HCl (Diphenhydramine Hcl 50 Mg/Ml Vial) 25 mg IV QID PRN PRN Reason: Nausea Fluticasone/Vilanterol (Fluticasone/Vilanterol 200/25 Blst.W.Dev) 1 puff INHALE Q24H [facility] Last Admin: 08/31/24 07:40 Dose: 1 puff Documented By: MO Guaifenesin (Guaifenesin La 600 Mg Tab.Er.12h) 600 mg PO BID [facility] Last Admin: 08/31/24 08:28 Dose: 600 mg Documented By: JANET Guaifenesin/Codeine Phosphate (Guaifen/Codeine Sf 200/20/10ml 10 Ml Liquid) 5 ml PO Q4H PRN PRN Reason: Cough Last Admin: 08/30/24 10:48 Dose: 5 ml Documented By: FCO Hydromorphone HCl (Hydromorphone Hcl 2 Mg Tablet) 4 mg PO BID PRN PRN Reason: severe pain (scale score 7-10) Last Admin: 08/29/24 11:58 Dose: 4 mg Documented By: BROB Hydromorphone HCl (Hydromorphone Hcl 0.5 Mg/0.5 Ml Syringe) 0.5 mg IVPUSH Q4H PRN; Protocol PRN Reason: Pain, Severe (Pain Scale 7-10) Last Admin: 08/31/24 11:09 Dose: 0.5 mg Documented By: SHARONDA Piperacillin Sod/Tazobactam (Sod 3.375 gm/ Sodium Chloride) 50 mls @ 100 mls/hr IV Q6H [facility] Last Infusion: 08/31/24 12:50 Dose: Infused Documented By: JANET Vancomycin HCl 1,500 mg/ (Sodium Chloride) 500 mls @ 333.333 mls/hr IV Q12H [facility] Last Infusion: 08/31/24 03:15 Dose: Infused Documented By: ALMAZ Nutrition (Parenteral) (Parenteral Nutrition) 1,920 mls @ 80 mls/hr IV .Q24H [facility]; Protocol Stop: 08/31/24 20:59 Last Admin: 08/30/24 21:33 Dose: 80 mls/hr Documented By: ALMAZ Nutrition (Parenteral) (Parenteral Nutrition) 1,920 mls @ 80 mls/hr IV .Q24H [facility]; Protocol Stop: 09/01/24 20:59 Levetiracetam (Levetiracetam Oral Soln 500 Mg/5 Ml) 700 mg PO BID [facility] Last Admin: 08/31/24 08:28 Dose: 700 mg Documented By: JANET Magnesium Hydroxide (Milk Of Magnesia 30 Ml Oral.Susp) 30 ml PO DAILY PRN PRN Reason: Constipation Melatonin (Melatonin 3 Mg Tablet) 6 mg PO BEDTIME PRN PRN Reason: Insomnia Methylprednisolone Sodium Succinate (Methylprednisolone Sod Succ 40 Mg/Ml Vial) 40 mg IVPUSH Q12H [facility] Last Admin: 08/31/24 08:28 Dose: 40 mg Documented By: JANET Ondansetron HCl (Ondansetron Hcl 4 Mg/2 Ml Vial) 4 mg IVPUSH Q6H PRN PRN Reason: Nausea and Vomiting Last Admin: 08/31/24 11:09 Dose: 4 mg Documented By: SHARONDA Pharmacy Consult (Consult Rx Parenteral Nutrition Ordering) 1 each MISCELLANE DAILY PRN PRN Reason: Consult order Pharmacy Consult (Consult Rx Vancomycin Dosing) 1 each MISCELLANE DAILY PRN PRN Reason: Consult order Promethazine HCl (Promethazine Hcl 25 Mg Tablet) 25 mg PO QID PRN PRN Reason: Nausea And Vomiting Last Admin: 08/27/24 07:37 Dose: 25 mg Documented By: ALANA Sodium Chloride (0.9 % Sodium Chloride Flush 3 Ml Syringe) 3 ml IVFLUSH QSHIFT [facility] Last Admin: 08/31/24 08:30 Dose: 3 ml Documented By: JANET Labs 08/29/24 08:15 08/31/24 06:53 Labs: Laboratory Results - last 24 hr 08/31/24 08/31/24 06:53 12:06 Anion Gap 12 Estim Creat Clear Calc 103.1 Estimated GFR > 60 Random Glucose 230 H Calcium 8.3 L Phosphorus 2.9 Magnesium 2.6 Albumin 3.2 L Random Vancomycin 15.1 Assessment and Plan (1) Pleural effusion: Status: Acute (2) Pneumonia: Status: Acute Plan 44 yo F with with history of Behcet's disease, gastroparesis on TPN, anxiety, depression, chronic pain on dialudid, and seizure disorder who presented with abdominal pain associated with nausea/vomiting/diarrhea. CT showing possible colitis found to have norovirus and subsequently developed fever and tested + for influenza Pneumonia Repeat chest CT showing more confluence right lower lobe pneumonia extending into the right middle lobe with parapneumonic effusion and loculation suggesting possible empyema Antibiotics switched to vancomycin and Zosyn 08/28 pulmonary consultation> rec chest tube, not enough fluid to drain according to IR. plan for 2 weeks abx on dc Solu-Medrol Continue scheduled DuoNebs Continue supplemental oxygen to keep oxygen saturation greater than 90% lost IV access, midline placed thoracic surgery following for loculated effusion, plan for decortication Tuesday as pt on Eliquis; eliquis placed on hold. will need to be npo tuesday night Abdominal pain diarrhea resolved secondary to Norovirus. 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 Resolved meets sepsis criteria with fever, leukopenia, tachycardia probable ?viral sepsis due to norovirus and viral pneumonia lactic acid within normal limits blood cultures negative Pancytopenia likely due to acute viral illness improving. Leukopenia/thrombocytopenia resolved influenza A 08/23/24 Completed course of tamiflu symptomatic support svc obstruction, chronic incidental on imaging, known to pt Chronic pain Resume home PO dilaudid today and prn IV for breakthrough pain Crohn's disease not currently on therapy receives TPN at home, will continue has TPN port History of PE/DVT previously on eliquis, do not see it on claim history but patient reports Hold Eliquis as above for planned procedure History of seizure d/o continue Keppra Full Code DVT pptx - Eliquis on hold for planned procedure; mechanical DISPO PT rec home when medically ready Pt requires ongoing inpatient stay for pneumonia, now with loculated effusion with plan for decortication complicated by underlying crohn's, bachet's, chronic pain syndrome and chronic TPN use Quality Stroke Does the patient have a stroke diagnosis?: No VTE Prior VTE?: No VTE Risk Level:: Medical - moderate - high VTE Device Contraindication: N/A - Device Ordered VTE Drug Contraindication: N/A - Med Ordered
[2024-08-31 15:00] VITALS: BP 119/69; PULSE 56; RESP 22; TEMP 36.8; O2SAT 96
[2024-08-31 15:35] VITALS: PULSE 87; RESP 22; O2SAT 94
[2024-08-31 19:01] VITALS: BP 129/65; PULSE 59; RESP 18; TEMP 36.3; O2SAT 97
[2024-08-31] MEDS: Parenteral Nutrition 1,920 ML 80 ML IV (20:48)
[2024-09-01] MEDS: Piperacillin Sodium/Tazobactam 3.375 GM in 0.9 % Sodium Chloride 50 ML IV ×4 (01:06→19:00)
[2024-09-01] MEDS: vancomycin HCL 1,500 MG in 0.9 % Sodium Chloride 500 ML 333.33 MG IV ×2 (01:40→14:06)
[2024-09-01 03:00] VITALS: BP 105/58; PULSE 59; RESP 17; TEMP 36.3; O2SAT 97
[2024-09-01] MEDS: HYDROmorphone HCl 0.5 MG/0.5 ML SYRINGE IVPUSH ×5 (03:37→21:17)
[2024-09-01] MEDS: ondansetron HCL 4 MG/2 ML VIAL IVPUSH ×3 (05:28→18:44)
[2024-09-01] MEDS: diphenhydrAMINE HCL 50 MG/ML VIAL 25 MG IVPUSH ×3 (05:28→18:44)
[2024-09-01 06:03] LABS: Anion Gap 11 (12-20); Blood Urea Nitrogen 19 mg/dL (9-16); Calcium 8.1 mg/dL (8.4-10.2); Carbon Dioxide 28 mmol/L (22-29); Chloride 108 mmol/L (96-108); Creatinine Clr Calc Pharmacy 104.8; Estimated Glomerular Filt Rate > 60; Glucose Random 132 mg/dL (60-115); Magnesium 2.6 mg/dL (1.6-2.6); Phosphorus 3.1 mg/dL (2.7-4.5); Potassium 3.4 mmol/L (3.3-5.1); Sodium 144 mmol/L (135-145)
[2024-09-01 07:34] VITALS: BP 99/57; PULSE 65; RESP 16; TEMP 36.8; O2SAT 94
[2024-09-01] MEDS: Fluticasone/Vilanterol 200/25 BLST.W.DEV 1 PUFF INHALE (07:50)
[2024-09-01] MEDS: Albuterol/Iprat 2.5/0.5MG 3 ML AMPUL.NEB INHALE ×2 (07:50→15:11)
[2024-09-01 07:52] VITALS: PULSE 69; RESP 20; O2SAT 97
[2024-09-01] MEDS: 0.9 % Sodium Chloride Flush 3 ML SYRINGE IVFLUSH ×3 (08:04→20:58)
[2024-09-01] MEDS: methylPREDNISolone Sod Succ 40 MG/ML VIAL IVPUSH (08:04)
[2024-09-01] MEDS: levETIRAcetam Oral Soln 500 MG/5 ML 700 MG PO ×2 (08:04→21:04)
[2024-09-01] MEDS: guaiFENesin LA 600 MG TAB.ER.12H PO ×2 (08:05→20:57)
[2024-09-01] MEDS: Dicyclomine HCl 10 MG CAPSULE PO ×4 (08:05→20:57)
--- NOTE | 2024-09-01 10:16 | P.PNIM_ITS ---
Subjective Subjective Date of Service: 09/01/24 Interval History: seen and examined this morning follow up for pneumonia, pleural effusion no change, ongoing cough, sob Review of Systems Review of Systems: Yes all other systems are reviewed and are negative Constitutional Constitutional: Denies chills and Denies fever(s) Cardiovascular Cardiovascular: Denies chest pain and Denies palpitations Endocrine Endocrine: Denies palpitations Physical Exam 2 Vital Signs: Vital Signs: Last Vital Signs Temp 98.3 F 09/01/24 07:34 Pulse 69 09/01/24 07:52 Resp 20 09/01/24 07:52 BP 99/57 L 09/01/24 07:34 Pulse Ox 94 09/01/24 07:34 O2 Del Method Nasal Cannula 09/01/24 07:34 O2 Flow Rate 3.0 09/01/24 07:34 BMI result Body Mass Index 26.9 Appearing in no acute distress lung sounds rhonchi heart regular rate rhythm, clear S1, S2 positive bowel sounds, abdomen is soft, nontender neuro patient is alert x3, no focal deficits Objective Data Active Medications Acetaminophen (Acetaminophen 325 Mg Tablet) 650 mg PO Q6H PRN PRN Reason: Pain, Mild 1-3,fever,headache Last Admin: 08/23/24 09:21 Dose: 650 mg Documented By: JACINTO Acetaminophen/Butalbital/Caffeine (Butalb/Acetamin/Caff 50/325/40 Tablet) 1 tab PO Q4H PRN PRN Reason: Headache Last Admin: 08/27/24 08:36 Dose: 1 tab Documented By: GRAZIC Albuterol/Ipratropium (Albuterol/Iprat 2.5/0.5mg 3 Ml Ampul.Neb) 3 ml INHALE RQ6H WHILE AWAKE [facility] Last Admin: 09/01/24 07:50 Dose: 3 ml Documented By: BRESNE Apixaban (Apixaban 5 Mg Tablet) 5 mg PO BID [facility] Last Admin: 08/30/24 08:29 Dose: 5 mg Documented By: DOBROB Calcium Carbonate (Calcium Carbonate 750 Mg Tab.Chew) 750 mg PO Q4H PRN PRN Reason: Heartburn Dicyclomine HCl (Dicyclomine Hcl 10 Mg Capsule) 10 mg PO QIDACHS [facility] Last Admin: 09/01/24 08:05 Dose: 10 mg Documented By: ALANA Diphenhydramine HCl (Diphenhydramine Hcl 50 Mg/Ml Vial) 25 mg IVPUSH Q6H PRN PRN Reason: Itching Last Admin: 09/01/24 05:28 Dose: 25 mg Documented By: PRISCA Fluticasone/Vilanterol (Fluticasone/Vilanterol 200/25 Blst.W.Dev) 1 puff INHALE Q24H ANNA Last Admin: 09/01/24 07:50 Dose: 1 puff Documented By: KARIE Guaifenesin (Guaifenesin La 600 Mg Tab.Er.12h) 600 mg PO BID ANNA Last Admin: 09/01/24 08:05 Dose: 600 mg Documented By: ALANA Guaifenesin/Codeine Phosphate (Guaifen/Codeine Sf 200/20/10ml 10 Ml Liquid) 5 ml PO Q4H PRN PRN Reason: Cough Last Admin: 08/30/24 10:48 Dose: 5 ml Documented By: DOBROHilary Hydromorphone HCl (Hydromorphone Hcl 2 Mg Tablet) 4 mg PO BID PRN PRN Reason: severe pain (scale score 7-10) Last Admin: 08/29/24 11:58 Dose: 4 mg Documented By: DOBROB Hydromorphone HCl (Hydromorphone Hcl 0.5 Mg/0.5 Ml Syringe) 0.5 mg IVPUSH Q4H PRN; Protocol PRN Reason: Pain, Severe (Pain Scale 7-10) Last Admin: 09/01/24 08:02 Dose: 0.5 mg Documented By: ALANA Piperacillin Sod/Tazobactam (Sod 3.375 gm/ Sodium Chloride) 50 mls @ 100 mls/hr IV Q6H ANNA Last Infusion: 09/01/24 07:55 Dose: Infused Documented By: ALANA Vancomycin HCl 1,500 mg/ (Sodium Chloride) 500 mls @ 333.333 mls/hr IV Q12H ANNA Last Infusion: 09/01/24 03:15 Dose: Infused Documented By: PRISCA Nutrition (Parenteral) (Parenteral Nutrition) 1,920 mls @ 80 mls/hr IV .Q24H [facility]; Protocol Stop: 09/01/24 20:59 Last Admin: 08/31/24 20:48 Dose: 80 mls/hr Documented By: PRISCA Nutrition (Parenteral) (Parenteral Nutrition) 1,920 mls @ 80 mls/hr IV .Q24H [facility]; Protocol Stop: 09/02/24 20:59 Levetiracetam (Levetiracetam Oral Soln 500 Mg/5 Ml) 700 mg PO BID [facility] Last Admin: 09/01/24 08:04 Dose: 700 mg Documented By: ALANA Magnesium Hydroxide (Milk Of Magnesia 30 Ml Oral.Susp) 30 ml PO DAILY PRN PRN Reason: Constipation Melatonin (Melatonin 3 Mg Tablet) 6 mg PO BEDTIME PRN PRN Reason: Insomnia Methylprednisolone Sodium Succinate (Methylprednisolone Sod Succ 40 Mg/Ml Vial) 40 mg IVPUSH Q24H [facility] Last Admin: 09/01/24 08:04 Dose: 40 mg Documented By: ALANA Ondansetron HCl (Ondansetron Hcl 4 Mg/2 Ml Vial) 4 mg IVPUSH Q6H PRN PRN Reason: Nausea and Vomiting Last Admin: 09/01/24 05:28 Dose: 4 mg Documented By: PRISCA Pharmacy Consult (Consult Rx Parenteral Nutrition Ordering) 1 each MISCELLANE DAILY PRN PRN Reason: Consult order Pharmacy Consult (Consult Rx Vancomycin Dosing) 1 each MISCELLANE DAILY PRN PRN Reason: Consult order Promethazine HCl (Promethazine Hcl 25 Mg Tablet) 25 mg PO QID PRN PRN Reason: Nausea And Vomiting Last Admin: 08/27/24 07:37 Dose: 25 mg Documented By: ALANA Sodium Chloride (0.9 % Sodium Chloride Flush 3 Ml Syringe) 3 ml IVFLUSH QSHIFT [facility] Last Admin: 09/01/24 08:04 Dose: 3 ml Documented By: ALANA Labs 08/29/24 08:15 09/01/24 05:12 Labs: Laboratory Results - last 24 hr 08/31/24 09/01/24 12:06 05:12 Hold Purple Top SEE NOTE Anion Gap 11 L Estim Creat Clear Calc 104.8 Estimated GFR > 60 Random Glucose 132 H Calcium 8.1 L Phosphorus 3.1 Magnesium 2.6 Albumin 3.0 L Random Vancomycin 15.1 Assessment and Plan (1) Pleural effusion: Status: Acute (2) Pneumonia: Status: Acute Plan 44 yo F with with history of Behcet's disease, gastroparesis on TPN, anxiety, depression, chronic pain on dialudid, and seizure disorder who presented with abdominal pain associated with nausea/vomiting/diarrhea. CT showing possible colitis found to have norovirus and subsequently developed fever and tested + for influenza Pneumonia Repeat chest CT showing more confluence right lower lobe pneumonia extending into the right middle lobe with parapneumonic effusion and loculation suggesting possible empyema Antibiotics switched to vancomycin and Zosyn 08/28 pulmonary consultation> rec chest tube, not enough fluid to drain according to IR. plan for 2 weeks abx on dc Solu-Medrol, wean down Continue scheduled DuoNebs Continue supplemental oxygen to keep oxygen saturation greater than 90% midline dueto poor IV access thoracic surgery following for loculated effusion, plan for decortication Tuesday as pt on Eliquis; eliquis placed on hold. will need to be npo tuesday night Abdominal pain diarrhea resolved secondary to Norovirus. 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 Resolved meets sepsis criteria with fever, leukopenia, tachycardia probable ?viral sepsis due to norovirus and viral pneumonia lactic acid within normal limits blood cultures negative Pancytopenia likely due to acute viral illness improving. Leukopenia/thrombocytopenia resolved influenza A 08/23/24 Completed course of tamiflu symptomatic support svc obstruction, chronic incidental on imaging, known to pt Chronic pain Resume home PO dilaudid today and prn IV for breakthrough pain Crohn's disease not currently on therapy receives TPN at home, will continue has TPN port History of PE/DVT previously on eliquis, do not see it on claim history but patient reports Hold Eliquis as above for planned procedure History of seizure d/o continue Keppra Full Code DVT pptx - Eliquis on hold for planned procedure; mechanical DISPO PT rec home when medically ready Pt requires ongoing inpatient stay for pneumonia, now with loculated effusion with plan for decortication complicated by underlying crohn's, bachet's, chronic pain syndrome and chronic TPN use Quality Stroke Does the patient have a stroke diagnosis?: No VTE Prior VTE?: No VTE Risk Level:: Medical - moderate - high VTE Device Contraindication: N/A - Device Ordered VTE Drug Contraindication: N/A - Med Ordered
--- NOTE | 2024-09-01 13:55 | P.PNTS_ITS ---
Subjective Subjective Date of Service: 09/01/24 Interval history: Patient was in longer on respiratory precautions. Still having respiratory difficulties. Tolerating her diet. Having bowel wounds. Eliquis has been held. Physical Exam 2 Vital Signs: Vital Signs: Last Vital Signs Temp 98.3 F 09/01/24 07:34 Pulse 69 09/01/24 07:52 Resp 20 09/01/24 07:52 BP 99/57 L 09/01/24 07:34 Pulse Ox 94 09/01/24 07:34 O2 Del Method Nasal Cannula 09/01/24 07:34 O2 Flow Rate 3.0 09/01/24 07:34 BMI result Body Mass Index 26.9 Chest: Other: Chest exam status quo. Diminished breath sounds right base. GI: Other: Abdomen corpulent, soft, benign Procedures Date of Service Date of Service: 09/01/24 Progress Note: A&P Assessment and plan (1) Empyema of lung: Status: Acute Plan Patient was tentatively scheduled for Tuesday right decortication. Time Spent With Patient Time: Total time managing care of this patient today ____ minutes. Quality Stroke Does the patient have a stroke diagnosis?: No VTE Prior VTE?: No VTE Risk Level:: Medical - moderate - high VTE Device Contraindication: N/A - Device Ordered VTE Drug Contraindication: N/A - Med Ordered
[2024-09-01 15:00] VITALS: BP 120/64; PULSE 72; RESP 18; TEMP 36.2; O2SAT 98
[2024-09-01 15:13] VITALS: PULSE 72; RESP 18; O2SAT 98
[2024-09-01] MEDS: Parenteral Nutrition 1,920 ML 80 ML IV (20:58)
[2024-09-01 23:00] VITALS: BP 107/57; PULSE 60; RESP 18; TEMP 36.5; O2SAT 99
[2024-09-02] MEDS: Piperacillin Sodium/Tazobactam 3.375 GM in 0.9 % Sodium Chloride 50 ML IV ×5 (01:03→22:47)
[2024-09-02] MEDS: diphenhydrAMINE HCL 50 MG/ML VIAL 25 MG IVPUSH ×4 (01:04→20:38)
[2024-09-02] MEDS: HYDROmorphone HCl 0.5 MG/0.5 ML SYRINGE IVPUSH ×4 (01:04→20:31)
[2024-09-02] MEDS: ondansetron HCL 4 MG/2 ML VIAL IVPUSH ×4 (01:04→20:38)
[2024-09-02] MEDS: vancomycin HCL 1,500 MG in 0.9 % Sodium Chloride 500 ML 333.33 MG IV (01:43)
[2024-09-02 07:00] VITALS: BP 95/53; PULSE 62; RESP 16; TEMP 36.4; O2SAT 93
[2024-09-02] MEDS: 0.9 % Sodium Chloride Flush 3 ML SYRINGE IVFLUSH ×3 (07:17→20:54)
[2024-09-02 07:37] VITALS: PULSE 64; RESP 18; O2SAT 93
[2024-09-02] MEDS: Albuterol/Iprat 2.5/0.5MG 3 ML AMPUL.NEB INHALE (07:37)
[2024-09-02 07:40] LABS: Anion Gap 12 (12-20); Blood Urea Nitrogen 19 mg/dL (9-16); Calcium 7.9 mg/dL (8.4-10.2); Carbon Dioxide 29 mmol/L (22-29); Chloride 106 mmol/L (96-108); Creatinine Clr Calc Pharmacy 98.3; Estimated Glomerular Filt Rate > 60; Glucose Random 122 mg/dL (60-115); Magnesium 2.5 mg/dL (1.6-2.6); Phosphorus 3.9 mg/dL (2.7-4.5); Potassium 3.4 mmol/L (3.3-5.1); Sodium 144 mmol/L (135-145); Triglycerides 132 mg/dL (<150)
[2024-09-02] MEDS: Fluticasone/Vilanterol 200/25 BLST.W.DEV 1 PUFF INHALE (07:45)
[2024-09-02] MEDS: levETIRAcetam Oral Soln 500 MG/5 ML 700 MG PO ×2 (08:29→20:38)
[2024-09-02] MEDS: guaiFENesin LA 600 MG TAB.ER.12H PO ×2 (08:30→20:39)
[2024-09-02] MEDS: Dicyclomine HCl 10 MG CAPSULE PO ×4 (08:30→20:39)
[2024-09-02] MEDS: methylPREDNISolone Sod Succ 40 MG/ML VIAL IVPUSH (08:31)
[2024-09-02] MEDS: guaiFEN/Codeine SF 200/20/10ML 10 ML LIQUID 5 ML PO (08:34)
--- NOTE | 2024-09-02 09:03 | P.PNIM_ITS ---
Subjective Subjective Date of Service: 09/02/24 Interval History: seen and examined this morning follow up for pneumonia, pleural effusion no change, ongoing cough, sob Review of Systems Review of Systems: Yes all other systems are reviewed and are negative Constitutional Constitutional: Denies chills and Denies fever(s) Cardiovascular Cardiovascular: Denies chest pain and Denies palpitations Endocrine Endocrine: Denies palpitations Physical Exam 2 Vital Signs: Vital Signs: Last Vital Signs Temp 97.6 F 09/02/24 07:00 Pulse 64 09/02/24 07:37 Resp 18 09/02/24 07:37 BP 95/53 L 09/02/24 07:00 Pulse Ox 93 09/02/24 07:00 O2 Del Method Nasal Cannula 09/02/24 07:00 O2 Flow Rate 3.0 09/02/24 07:00 BMI result Body Mass Index 26.9 Appearing in no acute distress lung sounds are clear to auscultation heart regular rate rhythm, clear S1, S2 positive bowel sounds, abdomen is soft, nontender neuro patient is alert x3, no focal deficits Objective Data Active Medications Acetaminophen (Acetaminophen 325 Mg Tablet) 650 mg PO Q6H PRN PRN Reason: Pain, Mild 1-3,fever,headache Last Admin: 08/23/24 09:21 Dose: 650 mg Documented By: JACINTO Acetaminophen/Butalbital/Caffeine (Butalb/Acetamin/Caff 50/325/40 Tablet) 1 tab PO Q4H PRN PRN Reason: Headache Last Admin: 08/27/24 08:36 Dose: 1 tab Documented By: ALANA Albuterol/Ipratropium (Albuterol/Iprat 2.5/0.5mg 3 Ml Ampul.Neb) 3 ml INHALE RQ6H WHILE AWAKE [facility] Last Admin: 09/02/24 07:37 Dose: 3 ml Documented By: BLAKARISHMA Apixaban (Apixaban 5 Mg Tablet) 5 mg PO BID [facility] Last Admin: 08/30/24 08:29 Dose: 5 mg Documented By: DOBROB Calcium Carbonate (Calcium Carbonate 750 Mg Tab.Chew) 750 mg PO Q4H PRN PRN Reason: Heartburn Dicyclomine HCl (Dicyclomine Hcl 10 Mg Capsule) 10 mg PO QIDACHS [facility] Last Admin: 09/02/24 08:30 Dose: 10 mg Documented By: ALANA Diphenhydramine HCl (Diphenhydramine Hcl 50 Mg/Ml Vial) 25 mg IVPUSH Q6H PRN PRN Reason: Itching Last Admin: 09/02/24 07:15 Dose: 25 mg Documented By: ALANA Fluticasone/Vilanterol (Fluticasone/Vilanterol 200/25 Blst.W.Dev) 1 puff INHALE Q24H ANNA Last Admin: 09/02/24 07:45 Dose: 1 puff Documented By: KHUSHI Guaifenesin (Guaifenesin La 600 Mg Tab.Er.12h) 600 mg PO BID [facility] Last Admin: 09/02/24 08:30 Dose: 600 mg Documented By: ALANA Guaifenesin/Codeine Phosphate (Guaifen/Codeine Sf 200/20/10ml 10 Ml Liquid) 5 ml PO Q4H PRN PRN Reason: Cough Last Admin: 09/02/24 08:34 Dose: 5 ml Documented By: AALNA Hydromorphone HCl (Hydromorphone Hcl 2 Mg Tablet) 4 mg PO BID PRN PRN Reason: severe pain (scale score 7-10) Last Admin: 08/29/24 11:58 Dose: 4 mg Documented By: BROHilary Hydromorphone HCl (Hydromorphone Hcl 0.5 Mg/0.5 Ml Syringe) 0.5 mg IVPUSH Q4H PRN; Protocol PRN Reason: Pain, Severe (Pain Scale 7-10) Last Admin: 09/02/24 06:14 Dose: 0.5 mg Documented By: PRISCA Piperacillin Sod/Tazobactam (Sod 3.375 gm/ Sodium Chloride) 50 mls @ 100 mls/hr IV Q6H [facility] Last Infusion: 09/02/24 07:02 Dose: Infused Documented By: ALANA Vancomycin HCl 1,500 mg/ (Sodium Chloride) 500 mls @ 333.333 mls/hr IV Q12H ANNA Last Infusion: 09/02/24 03:14 Dose: Infused Documented By: PRISCA Nutrition (Parenteral) (Parenteral Nutrition) 1,920 mls @ 80 mls/hr IV .Q24H [facility]; Protocol Stop: 09/02/24 20:59 Last Admin: 09/01/24 20:58 Dose: 80 mls/hr Documented By: ODRISM Nutrition (Parenteral) (Parenteral Nutrition) 1,920 mls @ 80 mls/hr IV .Q24H [facility]; Protocol Stop: 09/03/24 20:59 Levetiracetam (Levetiracetam Oral Soln 500 Mg/5 Ml) 700 mg PO BID [facility] Last Admin: 09/02/24 08:29 Dose: 700 mg Documented By: ALANA Magnesium Hydroxide (Milk Of Magnesia 30 Ml Oral.Susp) 30 ml PO DAILY PRN PRN Reason: Constipation Melatonin (Melatonin 3 Mg Tablet) 6 mg PO BEDTIME PRN PRN Reason: Insomnia Methylprednisolone Sodium Succinate (Methylprednisolone Sod Succ 40 Mg/Ml Vial) 40 mg IVPUSH Q24H [facility] Last Admin: 09/02/24 08:31 Dose: 40 mg Documented By: ALANA Ondansetron HCl (Ondansetron Hcl 4 Mg/2 Ml Vial) 4 mg IVPUSH Q6H PRN PRN Reason: Nausea and Vomiting Last Admin: 09/02/24 07:15 Dose: 4 mg Documented By: ALANA Pharmacy Consult (Consult Rx Parenteral Nutrition Ordering) 1 each MISCELLANE DAILY PRN PRN Reason: Consult order Pharmacy Consult (Consult Rx Vancomycin Dosing) 1 each MISCELLANE DAILY PRN PRN Reason: Consult order Promethazine HCl (Promethazine Hcl 25 Mg Tablet) 25 mg PO QID PRN PRN Reason: Nausea And Vomiting Last Admin: 08/27/24 07:37 Dose: 25 mg Documented By: ALANA Sodium Chloride (0.9 % Sodium Chloride Flush 3 Ml Syringe) 3 ml IVFLUSH QSHIFT [facility] Last Admin: 09/02/24 07:17 Dose: 3 ml Documented By: ALANA Labs 08/29/24 08:15 09/02/24 06:08 Labs: Laboratory Results - last 24 hr 09/02/24 06:08 Anion Gap 12 Estim Creat Clear Calc 98.3 Estimated GFR > 60 Random Glucose 122 H Calcium 7.9 L Phosphorus 3.9 Magnesium 2.5 Albumin 3.0 L Triglycerides 132 Assessment and Plan (1) Pleural effusion: Status: Acute (2) Pneumonia: Status: Acute Plan 44 yo F with with history of Behcet's disease, gastroparesis on TPN, anxiety, depression, chronic pain on dialudid, and seizure disorder who presented with abdominal pain associated with nausea/vomiting/diarrhea. CT showing possible colitis found to have norovirus and subsequently developed fever and tested + for influenza Pneumonia Repeat chest CT showing more confluence right lower lobe pneumonia extending into the right middle lobe with parapneumonic effusion and loculation suggesting possible empyema Antibiotics switched to vancomycin and Zosyn 08/28 Solu-Medrol>po prednisone Continue scheduled DuoNebs Continue supplemental oxygen to keep oxygen saturation greater than 90% midline due to poor IV access Pulmonary following thoracic surgery following for loculated effusion, plan for decortication Tuesday as pt on Eliquis; eliquis placed on hold. npo Abdominal pain diarrhea resolved secondary to Norovirus. 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 Resolved meets sepsis criteria with fever, leukopenia, tachycardia probable ?viral sepsis due to norovirus and viral pneumonia lactic acid within normal limits blood cultures negative Pancytopenia likely due to acute viral illness improving. Leukopenia/thrombocytopenia resolved influenza A 08/23/24 Completed course of tamiflu symptomatic support svc obstruction, chronic incidental on imaging, known to pt Chronic pain Resume home PO dilaudid today and prn IV for breakthrough pain Crohn's disease not currently on therapy receives TPN at home, will continue has TPN port History of PE/DVT previously on eliquis, do not see it on claim history but patient reports Hold Eliquis as above for planned procedure History of seizure d/o continue Keppra Full Code DVT pptx - Eliquis on hold for planned procedure; mechanical DISPO PT rec home when medically ready Pt requires ongoing inpatient stay for pneumonia, now with loculated effusion with plan for decortication complicated by underlying crohn's, bachet's, chronic pain syndrome and chronic TPN use Quality Stroke Does the patient have a stroke diagnosis?: No VTE Prior VTE?: No VTE Risk Level:: Medical - moderate - high VTE Device Contraindication: N/A - Device Ordered VTE Drug Contraindication: N/A - Med Ordered
[2024-09-02] MEDS: HYDROmorphone HCl 2 MG TABLET 4 MG PO (11:18)
[2024-09-02 12:45] LABS: Vancomycin Random 22.8 mcg/mL (15-20)
--- NOTE | 2024-09-02 12:58 | HE.PHANOTE ---
Re Vanco Trough today was 22.9mg/L, above therapeutic range. Renal function has remained about the same and the draw doesn't seem to be while a dose was infusing. Will treat as a real level and hold for now. Random level ordered for 2100 with new regimen of 1250mg q12h pended to start afterwards at 2300 as long as the random level as dropped sufficiently.
[2024-09-02 15:29] VITALS: BP 110/59; PULSE 66; RESP 18; TEMP 36.6; O2SAT 93
--- NOTE | 2024-09-02 16:12 | PM.PNGS ---
Subjective Subjective Date of Service: 09/02/24 Interval history: Patient demonstrating marked improvement clinically. She looks much better as well. No respiratory distress or issues. No productive cough. Physical Exam Vital Signs: Vital Signs: Last Vital Signs Temp 97.8 F 09/02/24 15:29 Pulse 66 09/02/24 15:29 Resp 18 09/02/24 15:29 BP 110/59 L 09/02/24 15:29 Pulse Ox 93 09/02/24 15:29 O2 Del Method Nasal Cannula 09/02/24 15:29 O2 Flow Rate 3 09/02/24 15:29 BMI result Body Mass Index 26.9 Chest: Other: Chest breath sounds bilaterally. Objective Data Active Medications Acetaminophen (Acetaminophen 325 Mg Tablet) 650 mg PO Q6H PRN PRN Reason: Pain, Mild 1-3,fever,headache Last Admin: 08/23/24 09:21 Dose: 650 mg Documented By: JACINTO Acetaminophen/Butalbital/Caffeine (Butalb/Acetamin/Caff 50/325/40 Tablet) 1 tab PO Q4H PRN PRN Reason: Headache Last Admin: 08/27/24 08:36 Dose: 1 tab Documented By: ALANA Apixaban (Apixaban 5 Mg Tablet) 5 mg PO BID [facility] Last Admin: 08/30/24 08:29 Dose: 5 mg Documented By: DOBROHilary Calcium Carbonate (Calcium Carbonate 750 Mg Tab.Chew) 750 mg PO Q4H PRN PRN Reason: Heartburn Dicyclomine HCl (Dicyclomine Hcl 10 Mg Capsule) 10 mg PO QIDACHS [facility] Last Admin: 09/02/24 11:16 Dose: 10 mg Documented By: ALANA Diphenhydramine HCl (Diphenhydramine Hcl 50 Mg/Ml Vial) 25 mg IVPUSH Q6H PRN PRN Reason: Itching Last Admin: 09/02/24 13:15 Dose: 25 mg Documented By: ALANA Fluticasone/Vilanterol (Fluticasone/Vilanterol 200/25 Blst.W.Dev) 1 puff INHALE Q24H [facility] Last Admin: 09/02/24 07:45 Dose: 1 puff Documented By: BLAKARISHMA Guaifenesin (Guaifenesin La 600 Mg Tab.Er.12h) 600 mg PO BID [facility] Last Admin: 09/02/24 08:30 Dose: 600 mg Documented By: ALANA Guaifenesin/Codeine Phosphate (Guaifen/Codeine Sf 200/20/10ml 10 Ml Liquid) 5 ml PO Q4H PRN PRN Reason: Cough Last Admin: 09/02/24 08:34 Dose: 5 ml Documented By: ALANA Hydromorphone HCl (Hydromorphone Hcl 2 Mg Tablet) 4 mg PO BID PRN PRN Reason: severe pain (scale score 7-10) Last Admin: 09/02/24 11:18 Dose: 4 mg Documented By: ALANA Hydromorphone HCl (Hydromorphone Hcl 0.5 Mg/0.5 Ml Syringe) 0.5 mg IVPUSH Q6H PRN; Protocol PRN Reason: Pain, Severe (Pain Scale 7-10) Last Admin: 09/02/24 14:18 Dose: 0.5 mg Documented By: ALANA Piperacillin Sod/Tazobactam (Sod 3.375 gm/ Sodium Chloride) 50 mls @ 100 mls/hr IV Q6H [facility] Last Infusion: 09/02/24 13:52 Dose: Infused Documented By: ALANA Nutrition (Parenteral) (Parenteral Nutrition) 1,920 mls @ 80 mls/hr IV .Q24H [facility]; Protocol Stop: 09/02/24 20:59 Last Admin: 09/01/24 20:58 Dose: 80 mls/hr Documented By: ODRISM Nutrition (Parenteral) (Parenteral Nutrition) 1,920 mls @ 80 mls/hr IV .Q24H [facility]; Protocol Stop: 09/03/24 20:59 Vancomycin HCl 1,250 mg/ (Sodium Chloride) 250 mls @ 166.667 mls/hr IV Q12H [facility] Levetiracetam (Levetiracetam Oral Soln 500 Mg/5 Ml) 700 mg PO BID [facility] Last Admin: 09/02/24 08:29 Dose: 700 mg Documented By: ALANA Magnesium Hydroxide (Milk Of Magnesia 30 Ml Oral.Susp) 30 ml PO DAILY PRN PRN Reason: Constipation Melatonin (Melatonin 3 Mg Tablet) 6 mg PO BEDTIME PRN PRN Reason: Insomnia Ondansetron HCl (Ondansetron Hcl 4 Mg/2 Ml Vial) 4 mg IVPUSH Q6H PRN PRN Reason: Nausea and Vomiting Last Admin: 09/02/24 13:15 Dose: 4 mg Documented By: ALANA Pharmacy Consult (Consult Rx Parenteral Nutrition Ordering) 1 each MISCELLANE DAILY PRN PRN Reason: Consult order Pharmacy Consult (Consult Rx Vancomycin Dosing) 1 each MISCELLANE DAILY PRN PRN Reason: Consult order Prednisone (Prednisone 20 Mg Tablet) 40 mg PO DAILY ANNA Promethazine HCl (Promethazine Hcl 25 Mg Tablet) 25 mg PO QID PRN PRN Reason: Nausea And Vomiting Last Admin: 08/27/24 07:37 Dose: 25 mg Documented By: ALANA Sodium Chloride (0.9 % Sodium Chloride Flush 3 Ml Syringe) 3 ml IVFLUSH QSHIFT [facility] Last Admin: 09/02/24 07:17 Dose: 3 ml Documented By: ALANA Labs 08/29/24 08:15 09/02/24 06:08 Labs: Laboratory Results - last 24 hr 09/02/24 09/02/24 06:08 12:11 Anion Gap 12 Estim Creat Clear Calc 98.3 Estimated GFR > 60 Random Glucose 122 H Calcium 7.9 L Phosphorus 3.9 Magnesium 2.5 Albumin 3.0 L Triglycerides 132 Random Vancomycin 22.8 H Procedures Date of Service Date of Service: 09/02/24 Progress Note: A&P Assessment and plan (1) Pleural effusion: Status: Acute (2) Empyema of lung: Status: Acute (3) Pneumonia: Status: Acute (4) Acute respiratory failure with hypoxia: Status: Acute (5) Pneumonia due to COVID-19 virus: Status: Acute Plan Current plan is to obtain a CT scan of the chest for follow-up right empyema. If scan shows improvement along with the patient's clinical improvement, can hold off on any surgical intervention. Time Spent With Patient Time: Total time managing care of this patient today ____ minutes. Quality Stroke Does the patient have a stroke diagnosis?: No VTE Prior VTE?: No VTE Risk Level:: Medical - moderate - high VTE Device Contraindication: N/A - Device Ordered VTE Drug Contraindication: N/A - Med Ordered
[2024-09-02] MEDS: iohexoL 350 MG/ML 100 ML INFUS..BTL 65 ML IV (16:53)
[2024-09-02 20:00] VITALS: BP 121/60; PULSE 82; RESP 18; TEMP 36.4; O2SAT 94
[2024-09-02] MEDS: Parenteral Nutrition 1,920 ML 80 ML IV (20:51)
[2024-09-02 21:22] LABS: Vancomycin Random 12.1 mcg/mL (15-20)
[2024-09-02] MEDS: vancomycin HCL 1,250 MG in 0.9 % Sodium Chloride 250 ML 166.67 MG IV (23:24)
[2024-09-03] VITALS (12 sets, daily range): BP systolic 91–108; BP diastolic 44–61; PULSE 50–87; RESP 16–22; TEMP 36–37; O2SAT 90–99
[2024-09-03] MEDS: HYDROmorphone HCl 0.5 MG/0.5 ML SYRINGE IVPUSH ×4 (02:22→21:10)
[2024-09-03] MEDS: diphenhydrAMINE HCL 50 MG/ML VIAL 25 MG IVPUSH ×4 (02:22→21:10)
[2024-09-03] MEDS: ondansetron HCL 4 MG/2 ML VIAL IVPUSH ×4 (02:22→21:10)
[2024-09-03] MEDS: Piperacillin Sodium/Tazobactam 3.375 GM in 0.9 % Sodium Chloride 50 ML IV ×4 (05:47→23:35)
[2024-09-03 06:09] LABS: Anion Gap 12 (12-20); Blood Urea Nitrogen 17 mg/dL (9-16); Calcium 8.4 mg/dL (8.4-10.2); Carbon Dioxide 31 mmol/L (22-29); Chloride 104 mmol/L (96-108); Creatinine Clr Calc Pharmacy 96.7; Estimated Glomerular Filt Rate > 60; Glucose Random 131 mg/dL (60-115); Magnesium 2.7 mg/dL (1.6-2.6); Phosphorus 4.4 mg/dL (2.7-4.5); Potassium 3.7 mmol/L (3.3-5.1); Sodium 143 mmol/L (135-145)
[2024-09-03] MEDS: guaiFENesin LA 600 MG TAB.ER.12H PO ×2 (07:41→20:13)
[2024-09-03] MEDS: predniSONE 20 MG TABLET 40 MG PO (07:41)
[2024-09-03] MEDS: levETIRAcetam Oral Soln 500 MG/5 ML 700 MG PO ×2 (07:42→20:13)
[2024-09-03] MEDS: Dicyclomine HCl 10 MG CAPSULE PO ×3 (07:42→20:13)
[2024-09-03] MEDS: 0.9 % Sodium Chloride Flush 3 ML SYRINGE IVFLUSH ×2 (07:44→23:38)
--- NOTE | 2024-09-03 08:13 | PM.PNTS ---
Subjective Subjective Date of Service: 09/03/24 <Jessica Billingsley PA-C - Last Filed: 09/03/24 08:18> 09/03/24 <Nasir Astorga MD - Last Filed: 09/03/24 08:21> Interval history: Patient was ambulating around the room yesterday. This morning states she does not feel significantly improved. <Jessica Billingsley PA-C - Last Filed: 09/03/24 08:18> Physical Exam Vital Signs: Vital Signs: Last Vital Signs Temp 98.6 F 09/03/24 07:00 Pulse 65 09/03/24 07:00 Resp 16 09/03/24 07:00 BP 108/58 L 09/03/24 07:00 Pulse Ox 99 09/03/24 07:00 O2 Del Method Nasal Cannula 09/03/24 07:00 O2 Flow Rate 3 09/03/24 07:00 BMI result Body Mass Index 26.9 <Jessica Billingsley PA-C - Last Filed: 09/03/24 08:18> Const: General: comfortable, no acute distress and alert <Jessica Billingsley PA-C - Last Filed: 09/03/24 08:18> Orientation/consciousness: patient oriented x3 <Jessica Billingsley PA-C - Last Filed: 09/03/24 08:18> Resp: Effort & Inspection: normal respiratory effort, not labored, not tachypneic and no use of accessory muscles <Jessica Billingsley PA-C - Last Filed: 09/03/24 08:18> Skin: General skin exam: no rashes or lesions noted <Jessica Billingsley PA-C - Last Filed: 09/03/24 08:18> Neuro: General: patient oriented x3 and moves all extremities <Jessica Billingsley PA-C - Last Filed: 09/03/24 08:18> Procedures Date of Service Date of Service: 09/03/24 <Jessica Billingsley PA-C - Last Filed: 09/03/24 08:18> 09/03/24 <Nasir Astorga MD - Last Filed: 09/03/24 08:21> Progress Note: A&P Assessment and plan (1) Pleural effusion: Status: Acute <Jessica Billingsley PA-C - Last Filed: 09/03/24 08:18> (2) Pneumonia: Status: Acute <Jessica Billingsley PA-C - Last Filed: 09/03/24 08:18> Assessment and Plan: Appears clinically improved, improving slowly from respiratory standpoint. CT chest yesterday overall stable. Will therefore hold off on thoracotomy, decortication for now. <Jessica Billingsley PA-C - Last Filed: 09/03/24 08:18> Appears clinically improved, improving slowly from respiratory standpoint. CT chest yesterday overall stable. Will therefore hold off on thoracotomy, decortication for now. As noted above . Patient can resume diet and Eliquis <Nasir Astorga MD - Last Filed: 09/03/24 08:21> Time Spent With Patient Time: Total time managing care of this patient today ____ minutes. <Jessica Billingsley PA-C - Last Filed: 09/03/24 08:18> Quality Stroke Does the patient have a stroke diagnosis?: No <Jessica Billingsley PA-C - Last Filed: 09/03/24 08:18> VTE Prior VTE?: No <Jessica Billingsley PA-C - Last Filed: 09/03/24 08:18> VTE Risk Level:: Medical - moderate - high <Jessica Billingsley PA-C - Last Filed: 09/03/24 08:18> VTE Device Contraindication: N/A - Device Ordered <Jessica Billingsley PA-C - Last Filed: 09/03/24 08:18> VTE Drug Contraindication: N/A - Med Ordered <Jessica Billingsley PA-C - Last Filed: 09/03/24 08:18>
[2024-09-03] MEDS: Fluticasone/Vilanterol 200/25 BLST.W.DEV 1 PUFF INHALE (08:27)
[2024-09-03] MEDS: vancomycin HCL 1,250 MG in 0.9 % Sodium Chloride 250 ML 166.67 MG IV (10:33)
--- NOTE | 2024-09-03 11:02 | HO.PM.IMPN ---
Subjective Subjective Date of Service: 09/03/24 Interval History: seen and examined this morning follow up for pneumonia, pleural effusion no change, ongoing cough, sob Review of Systems Review of Systems: Yes all other systems are reviewed and are negative Constitutional Constitutional: Denies chills and Denies fever(s) Cardiovascular Cardiovascular: Denies chest pain and Denies palpitations Endocrine Endocrine: Denies palpitations Physical Exam Vital Signs: Vital Signs: Last Vital Signs Temp 98.6 F 09/03/24 07:00 Pulse 50 09/03/24 08:29 Resp 22 H 09/03/24 08:29 BP 108/58 L 09/03/24 07:00 Pulse Ox 99 09/03/24 07:00 O2 Del Method Nasal Cannula 09/03/24 07:00 O2 Flow Rate 3 09/03/24 07:00 BMI result Body Mass Index 26.9 Appearing in no acute distress lung sounds are clear to auscultation heart regular rate rhythm, clear S1, S2 positive bowel sounds, abdomen is soft, nontender neuro patient is alert x3, no focal deficits Objective Data Active Medications Acetaminophen (Acetaminophen 325 Mg Tablet) 650 mg PO Q6H PRN PRN Reason: Pain, Mild 1-3,fever,headache Last Admin: 08/23/24 09:21 Dose: 650 mg Documented By: JACINTO Acetaminophen/Butalbital/Caffeine (Butalb/Acetamin/Caff 50/325/40 Tablet) 1 tab PO Q4H PRN PRN Reason: Headache Last Admin: 08/27/24 08:36 Dose: 1 tab Documented By: ALANA Apixaban (Apixaban 5 Mg Tablet) 5 mg PO BID [facility] Last Admin: 08/30/24 08:29 Dose: 5 mg Documented By: DOBROHilary Calcium Carbonate (Calcium Carbonate 750 Mg Tab.Chew) 750 mg PO Q4H PRN PRN Reason: Heartburn Dicyclomine HCl (Dicyclomine Hcl 10 Mg Capsule) 10 mg PO QIDACHS [facility] Last Admin: 09/03/24 07:42 Dose: 10 mg Documented By: KERI Diphenhydramine HCl (Diphenhydramine Hcl 50 Mg/Ml Vial) 25 mg IVPUSH Q6H PRN PRN Reason: Itching Last Admin: 09/03/24 08:46 Dose: 25 mg Documented By: KERI Fluticasone/Vilanterol (Fluticasone/Vilanterol 200/25 Blst.W.Dev) 1 puff INHALE Q24H ANNA Last Admin: 09/03/24 08:27 Dose: 1 puff Documented By: RATNA Guaifenesin (Guaifenesin La 600 Mg Tab.Er.12h) 600 mg PO BID ANNA Last Admin: 09/03/24 07:41 Dose: 600 mg Documented By: KERI Guaifenesin/Codeine Phosphate (Guaifen/Codeine Sf 200/20/10ml 10 Ml Liquid) 5 ml PO Q4H PRN PRN Reason: Cough Last Admin: 09/02/24 08:34 Dose: 5 ml Documented By: ALANA Hydromorphone HCl (Hydromorphone Hcl 2 Mg Tablet) 4 mg PO BID PRN PRN Reason: severe pain (scale score 7-10) Last Admin: 09/02/24 11:18 Dose: 4 mg Documented By: ALANA Hydromorphone HCl (Hydromorphone Hcl 0.5 Mg/0.5 Ml Syringe) 0.5 mg IVPUSH Q6H PRN; Protocol PRN Reason: Pain, Severe (Pain Scale 7-10) Last Admin: 09/03/24 08:46 Dose: 0.5 mg Documented By: KERI Piperacillin Sod/Tazobactam (Sod 3.375 gm/ Sodium Chloride) 50 mls @ 100 mls/hr IV Q6H ANNA Last Infusion: 09/03/24 06:20 Dose: Infused Documented By: MILI Nutrition (Parenteral) (Parenteral Nutrition) 1,920 mls @ 80 mls/hr IV .Q24H ANNA; Protocol Stop: 09/03/24 20:59 Last Admin: 09/02/24 20:51 Dose: 80 mls/hr Documented By: MILI Vancomycin HCl 1,250 mg/ (Sodium Chloride) 250 mls @ 166.667 mls/hr IV Q12H ANNA Last Admin: 09/03/24 10:33 Dose: 166.67 mls/hr Documented By: KERI Levetiracetam (Levetiracetam Oral Soln 500 Mg/5 Ml) 700 mg PO BID [facility] Last Admin: 09/03/24 07:42 Dose: 700 mg Documented By: KERI Magnesium Hydroxide (Milk Of Magnesia 30 Ml Oral.Susp) 30 ml PO DAILY PRN PRN Reason: Constipation Melatonin (Melatonin 3 Mg Tablet) 6 mg PO BEDTIME PRN PRN Reason: Insomnia Ondansetron HCl (Ondansetron Hcl 4 Mg/2 Ml Vial) 4 mg IVPUSH Q6H PRN PRN Reason: Nausea and Vomiting Last Admin: 09/03/24 08:46 Dose: 4 mg Documented By: KERI Pharmacy Consult (Consult Rx Parenteral Nutrition Ordering) 1 each MISCELLANE DAILY PRN PRN Reason: Consult order Pharmacy Consult (Consult Rx Vancomycin Dosing) 1 each MISCELLANE DAILY PRN PRN Reason: Consult order Prednisone (Prednisone 20 Mg Tablet) 40 mg PO DAILY [facility] Last Admin: 09/03/24 07:41 Dose: 40 mg Documented By: KERI Promethazine HCl (Promethazine Hcl 25 Mg Tablet) 25 mg PO QID PRN PRN Reason: Nausea And Vomiting Last Admin: 08/27/24 07:37 Dose: 25 mg Documented By: ALANA Sodium Chloride (0.9 % Sodium Chloride Flush 3 Ml Syringe) 3 ml IVFLUSH QSHIFT [facility] Last Admin: 09/03/24 07:44 Dose: 3 ml Documented By: KERI Labs 08/29/24 08:15 09/03/24 05:43 Labs: Laboratory Results - last 24 hr 09/02/24 09/02/24 09/03/24 12:11 20:56 05:43 Hold Purple Top SEE NOTE Anion Gap 12 Estim Creat Clear Calc 96.7 Estimated GFR > 60 Random Glucose 131 H Calcium 8.4 D Phosphorus 4.4 Magnesium 2.7 H Albumin 3.0 L Random Vancomycin 22.8 H 12.1 L Assessment and Plan (1) Pleural effusion: Status: Acute (2) Pneumonia: Status: Acute Plan 44 yo F with with history of Behcet's disease, gastroparesis on TPN, anxiety, depression, chronic pain on dialudid, and seizure disorder who presented with abdominal pain associated with nausea/vomiting/diarrhea. CT showing possible colitis found to have norovirus and subsequently developed fever and tested + for influenza Pneumonia Repeat chest CT showing more confluence right lower lobe pneumonia extending into the right middle lobe with parapneumonic effusion and loculation suggesting possible empyema Antibiotics switched to vancomycin and Zosyn 08/28 Solu-Medrol>po prednisone Continue scheduled DuoNebs Continue supplemental oxygen to keep oxygen saturation greater than 90% midline due to poor IV access Pulmonary following> plan for Bronchoscopy today thoracic surgery following for loculated effusion, plan for decortication cancelled as per Thoracic surgery Abdominal pain. Chronic, resolved diarrhea resolved secondary to Norovirus. remainder of GI panel and cdiff negative Seen by Gastroenterology with recommendation to start Bentyl and follow up outpatient with regular automatic bandsaw tender Viral sepsis. Resolved meets sepsis criteria with fever, leukopenia, tachycardia probable ?viral sepsis due to norovirus and viral pneumonia lactic acid within normal limits blood cultures negative Pancytopenia likely due to acute viral illness improving. Leukopenia/thrombocytopenia resolved influenza A 08/23/24 Completed course of tamiflu symptomatic support svc obstruction, chronic incidental on imaging, known to pt Chronic pain Resume home PO dilaudid today and prn IV for breakthrough pain Crohn's disease not currently on therapy receives TPN at home, will continue has TPN port History of PE/DVT previously on eliquis, do not see it on claim history but patient reports Hold Eliquis as above for planned procedure History of seizure d/o continue Keppra Full Code DVT pptx - Eliquis on hold for planned procedure; mechanical DISPO PT rec home when medically ready Pt requires ongoing inpatient stay for pneumonia, now with loculated effusion with plan for decortication complicated by underlying crohn's, bachet's, chronic pain syndrome and chronic TPN use Quality Stroke Does the patient have a stroke diagnosis?: No VTE Prior VTE?: No VTE Risk Level:: Medical - moderate - high VTE Device Contraindication: N/A - Device Ordered VTE Drug Contraindication: N/A - Med Ordered
--- NOTE | 2024-09-03 11:09 | P.CONAN_ITS ---
HPI - Anesthesia Eval Consult details Narrative: 44 yo female patient initially scheduled for Right open thoracotomy with decortication. Surgery cancelled because patient clinically improved. Now booked for fiberoptic bronchoscopy for pulmonary toileting secondary to difficulty with expectoration and acquisition of specimens for diagnosis PMFSH Active Problems Active Problems: All Active Problems Empyema of lung (Acute) Pleural effusion (Acute) Pneumonia (Acute) Norovirus (Acute) Influenza A (Acute) 08/24/24 Nausea & vomiting (Acute) Colitis (Acute) Intractable low back pain (Acute) Opioid contract exists (Acute) Post-dural puncture headache (Acute) Constipation due to opioid therapy (Acute) Constipation by delayed colonic transit (Acute) Clostridium difficile colitis (Acute) Cervicalgia (Acute) Acute low back pain (Acute) Chronic abdominal pain (Acute) Acute respiratory failure with hypoxia (Acute) Pneumonia due to COVID-19 virus (Acute) Chest pain (Acute) Contusion, back (Acute) Pulmonary edema (Acute) Elbow injury (Acute) Behcet's disease (Acute) Cervicalgia (Acute) Low back pain (Acute) Coughing Sats 93% on 3L NC Port in place for TPN located in ?back. Noted to be clogged today. TPN off for about 4 hours Past Medical History Medical History Enterocutaneous fistula Pulmonary emboli Crohn's disease Chronic, continuous use of opioids Immunosuppression Absence seizure disorder DVT (deep venous thrombosis) Pyloric stenosis Asthma Common variable immunodeficiency Spondylolisthesis, lumbar region Spondylosis of lumbar region without myelopathy or radiculopathy Abdominal pain, chronic, generalized Gastroparesis Spontaneous pneumothorax Chronic pain syndrome Cervicalgia Low back pain Behcet's disease Family History Family History Father Hairy cell leukemia Family history of problems with anesthesia: No Surgical History Surgical History History of thoracotomy Hx of gastrostomy History of hernia surgery History of Problems with Anesthesia: No Social History Social History Household Members: Children Household Members Other:: son Housing: House Do you presently have visiting nurse or other home services: No Unable to assess alcohol history related to: Unknown Alcohol intake: never Patient Tobacco Use Status: Never used Tobacco Second Hand Smoke Exposure: No Advance Directives Date on File: 04/22/23 service: No Current occupational status: unemployed Meds Allergies Allergy/AdvReac Type Severity Reaction Status Date / Time ciprofloxacin [Cipro] Allergy Unknown Hives Verified 08/19/24 21:52 levofloxacin [Levaquin] Allergy Unknown Hives Verified 08/19/24 21:52 metoclopramide [Reglan] Allergy Unknown Hives Verified 08/19/24 21:52 ondansetron [Zofran] Allergy Unknown Itching Verified 08/19/24 21:52 penicillin V Allergy Unknown Hives Verified 08/19/24 21:52 prochlorperazine Allergy Unknown Shortness Verified 08/19/24 21:52 [From Compazine] of Breath Sulfa (Sulfonamide Allergy Unknown Hives Verified 08/19/24 21:52 Antibiotics) thalidomide [From Thalomid] Allergy Unknown Rash Verified 08/19/24 21:52 haloperidol [From Haldol] Allergy Itching Verified 08/19/24 21:52 Active Medications: Current Medications Acetaminophen (Acetaminophen 325 Mg Tablet) 650 mg PO Q6H PRN PRN Reason: Pain, Mild 1-3,fever,headache Last Admin: 08/23/24 09:21 Dose: 650 mg Acetaminophen/Butalbital/Caffeine (Butalb/Acetamin/Caff 50/325/40 Tablet) 1 tab PO Q4H PRN PRN Reason: Headache Last Admin: 08/27/24 08:36 Dose: 1 tab Apixaban (Apixaban 5 Mg Tablet) 5 mg PO BID [facility] Last Admin: 08/30/24 08:29 Dose: 5 mg Calcium Carbonate (Calcium Carbonate 750 Mg Tab.Chew) 750 mg PO Q4H PRN PRN Reason: Heartburn Dicyclomine HCl (Dicyclomine Hcl 10 Mg Capsule) 10 mg PO QIDACHS [facility] Last Admin: 09/03/24 07:42 Dose: 10 mg Diphenhydramine HCl (Diphenhydramine Hcl 50 Mg/Ml Vial) 25 mg IVPUSH Q6H PRN PRN Reason: Itching Last Admin: 09/03/24 08:46 Dose: 25 mg Fluticasone/Vilanterol (Fluticasone/Vilanterol 200/25 Blst.W.Dev) 1 puff INHALE Q24H [facility] Last Admin: 09/03/24 08:27 Dose: 1 puff Guaifenesin (Guaifenesin La 600 Mg Tab.Er.12h) 600 mg PO BID [facility] Last Admin: 09/03/24 07:41 Dose: 600 mg Guaifenesin/Codeine Phosphate (Guaifen/Codeine Sf 200/20/10ml 10 Ml Liquid) 5 ml PO Q4H PRN PRN Reason: Cough Last Admin: 09/02/24 08:34 Dose: 5 ml Hydromorphone HCl (Hydromorphone Hcl 2 Mg Tablet) 4 mg PO BID PRN PRN Reason: severe pain (scale score 7-10) Last Admin: 09/02/24 11:18 Dose: 4 mg Hydromorphone HCl (Hydromorphone Hcl 0.5 Mg/0.5 Ml Syringe) 0.5 mg IVPUSH Q6H PRN; Protocol PRN Reason: Pain, Severe (Pain Scale 7-10) Last Admin: 09/03/24 08:46 Dose: 0.5 mg Piperacillin Sod/Tazobactam (Sod 3.375 gm/ Sodium Chloride) 50 mls @ 100 mls/hr IV Q6H [facility] Last Infusion: 09/03/24 06:20 Dose: Infused Nutrition (Parenteral) (Parenteral Nutrition) 1,920 mls @ 80 mls/hr IV .Q24H [facility]; Protocol Stop: 09/03/24 20:59 Last Admin: 09/02/24 20:51 Dose: 80 mls/hr Vancomycin HCl 1,250 mg/ (Sodium Chloride) 250 mls @ 166.667 mls/hr IV Q12H [facility] Last Admin: 09/03/24 10:33 Dose: 166.67 mls/hr Levetiracetam (Levetiracetam Oral Soln 500 Mg/5 Ml) 700 mg PO BID [facility] Last Admin: 09/03/24 07:42 Dose: 700 mg Magnesium Hydroxide (Milk Of Magnesia 30 Ml Oral.Susp) 30 ml PO DAILY PRN PRN Reason: Constipation Melatonin (Melatonin 3 Mg Tablet) 6 mg PO BEDTIME PRN PRN Reason: Insomnia Ondansetron HCl (Ondansetron Hcl 4 Mg/2 Ml Vial) 4 mg IVPUSH Q6H PRN PRN Reason: Nausea and Vomiting Last Admin: 09/03/24 08:46 Dose: 4 mg Pharmacy Consult (Consult Rx Parenteral Nutrition Ordering) 1 each MISCELLANE DAILY PRN PRN Reason: Consult order Pharmacy Consult (Consult Rx Vancomycin Dosing) 1 each MISCELLANE DAILY PRN PRN Reason: Consult order Prednisone (Prednisone 20 Mg Tablet) 40 mg PO DAILY [facility] Last Admin: 09/03/24 07:41 Dose: 40 mg Promethazine HCl (Promethazine Hcl 25 Mg Tablet) 25 mg PO QID PRN PRN Reason: Nausea And Vomiting Last Admin: 08/27/24 07:37 Dose: 25 mg Sodium Chloride (0.9 % Sodium Chloride Flush 3 Ml Syringe) 3 ml IVFLUSH QSHIFT [facility] Last Admin: 09/03/24 07:44 Dose: 3 ml Home Medications ?Medication ?Instructions ?Recorded ?Confirmed ?Last Taken ?Type fluticasone furoate 200 1 inh inhalation Q24H 12/12/20 08/20/24 08/19/24 History mcg-vilanterol 25 mcg/dose inhalation powder (Breo Ellipta) umeclidinium 62.5 mcg/actuation 1 inh inhalation DAILY 12/12/20 08/20/24 08/19/24 History blister powder for inhalation (Incruse Ellipta) diphenhydramine HCl 50 mg/mL 25 mg IV QID PRN Nausea 03/12/21 08/20/24 02/04/23 History injection solution ondansetron HCl (PF) 4 mg/2 mL 4 mg IV QID PRN Nausea 03/12/21 08/20/24 02/04/23 History injection solution promethazine 25 mg tablet 25 mg PO QID PRN Nausea And 08/18/21 08/20/24 02/04/23 History Vomiting levetiracetam 100 mg/mL oral 700 mg PO BID 08/20/24 08/20/24 08/19/24 History solution Exam Height,Weight and Vital Signs: Height 5 ft 2 in Weight 66.6 kg Last Vital Signs Temp 98.6 F 09/03/24 07:00 Pulse 50 09/03/24 08:29 Resp 22 H 09/03/24 08:29 BP 108/58 L 09/03/24 07:00 Pulse Ox 99 09/03/24 07:00 O2 Del Method Nasal Cannula 09/03/24 07:00 O2 Flow Rate 3 09/03/24 07:00 Vital Signs Temp Pulse Resp BP Pulse Ox O2 Del Method O2 Flow Rate 09/03/24 12:52 98.3 F 72 18 99/57 L 93 Nasal Cannula 3 09/03/24 08:29 50 22 H 09/03/24 07:00 98.6 F 65 16 108/58 L 99 Nasal Cannula 3 09/02/24 20:00 97.6 F 82 18 121/60 94 Nasal Cannula 3 09/02/24 15:29 97.8 F 66 18 110/59 L 93 Nasal Cannula 3 Pertinent Lab Results Pertinent Lab Results: Laboratory Tests 08/19/24 08/19/24 08/20/24 22:28 22:34 07:52 WBC 14.8 H RBC 4.62 Hgb 13.7 Hct 39.6 MCV 85.7 MCH 29.7 MCHC 34.6 RDW 12.5 Plt Count 219 MPV 9.7 Immature Gran % (Auto) 0.3 Neut % (Auto) 89.8 H Lymph % (Auto) 7.7 L Wake % (Auto) 1.6 L Eos % (Auto) 0.3 Baso % (Auto) 0.3 Lymph # (Auto) 1.1 L Wake # (Auto) 0.2 Eos # (Auto) 0.0 Baso # (Auto) 0.1 Abs Immat Gran (auto) 0.05 H Absolute Neuts (auto) 13.3 H Absolute Nucleated RBC 0.000 Nucleated RBC % (auto) 0.0 Hold Purple Top Sodium 140 Potassium 3.7 Chloride 104 Carbon Dioxide 27 Anion Gap 13 BUN 22 H Creatinine 0.78 Estim Creat Clear Calc 80.7 Estimated GFR > 60 Random Glucose 134 H Lactic Acid Calcium 9.2 Phosphorus Magnesium Total Bilirubin 0.3 AST 23 ALT 16 Alkaline Phosphatase 70 Troponin I High Sens < 2.7 Total Protein 7.0 Albumin 4.3 Triglycerides Lipase 10 Beta HCG, Quant 8 Stl C. cayetanensis PCR Not Detected Stool Rotavirus A PCR Not Detected Stl Adenov F 40/41 PCR Not Detected Stool Astrovirus (PCR) Not Detected Stool Campylobacter PCR Not Detected Stool Cryptosporidium PCR Not Detected Stl Sh Tox Pr E STEC PCR Not Detected Stool E coli O157 PCR Not applicable Stl Enterotoxigenic E PCR Not Detected Stool EPEC (PCR) Not Detected Stool EAEC (PCR) Not Detected Stl E. histolytica PCR Not Detected Stool Giardia Lamblia PCR Not Detected Stl P. shigelloides PCR Not Detected Stool Salmonella PCR Not Detected Stool Sapovirus (PCR) Not Detected Stl Shigella/EIEC PCR Not Detected St Y.enterocolitica PCR Not Detected Stool Vibrio (PCR) Not Detected Stl Vibrio cholerae PCR Not Detected Stl Norovirus GI/GII PCR Detected A Random Vancomycin Respiratory Panel Retana Adenovirus (Rapid PCR) B.pert (TEM-PCR) B.parapertussis DNA PCR C. pneumoniae DNA (PCR) C. difficile Tox B Gene NEGATIVE Coronavirus OC43 (PCR) Coronavirus HKU1 (PCR) Coronavirus 229E (PCR) Coronavirus NL63 (PCR) Human Metapneumovir PCR Influenza A (RT-PCR) Influenza A (H1) PCR Influ A (H1/09) PCR Influenza A (H3) PCR Influenza Type A (PCR) NEGATIVE Influenza B (RT-PCR) Influenza Type B (PCR) NEGATIVE M. pneumoniae (PCR) Parainfluenza 1 (PCR) Parainfluenza 2 (PCR) Parainfluenza 3 (PCR) Parainfluenza 4 (PCR) RSV (PCR) RSV RNA Qual (PCR) NEGATIVE Entero/Rhino (PCR) SARS-CoV-2 RNA (RT-PCR) NEGATIVE Blood Type Antibody Screen 08/20/24 08/21/24 08/21/24 12:42 06:10 06:10 WBC RBC Hgb Hct MCV MCH MCHC RDW Plt Count MPV Immature Gran % (Auto) Neut % (Auto) Lymph % (Auto) Wake % (Auto) Eos % (Auto) Baso % (Auto) Lymph # (Auto) Wake # (Auto) Eos # (Auto) Baso # (Auto) Abs Immat Gran (auto) Absolute Neuts (auto) Absolute Nucleated RBC Nucleated RBC % (auto) Hold Purple Top Sodium 141 141 141 Potassium 3.9 3.7 Chloride 107 Carbon Dioxide 28 Anion Gap 10 L BUN 14 Creatinine 0.73 Estim Creat Clear Calc 86.2 Estimated GFR > 60 Random Glucose 107 Lactic Acid Calcium 8.3 L D Phosphorus Magnesium Total Bilirubin 0.4 AST 21 ALT 10 Alkaline Phosphatase 56 Troponin I High Sens Total Protein 6.2 L Albumin 3.8 Triglycerides 50 Lipase Beta HCG, Quant Stl C. cayetanensis PCR Stool Rotavirus A PCR Stl Adenov F 40/41 PCR Stool Astrovirus (PCR) Stool Campylobacter PCR Stool Cryptosporidium PCR Stl Sh Tox Pr E STEC PCR Stool E coli O157 PCR Stl Enterotoxigenic E PCR Stool EPEC (PCR) Stool EAEC (PCR) Stl E. histolytica PCR Stool Giardia Lamblia PCR Stl P. shigelloides PCR Stool Salmonella PCR Stool Sapovirus (PCR) Stl Shigella/EIEC PCR St Y.enterocolitica PCR Stool Vibrio (PCR) Stl Vibrio cholerae PCR Stl Norovirus GI/GII PCR Random Vancomycin Respiratory Panel Retana Adenovirus (Rapid PCR) B.pert (TEM-PCR) B.parapertussis DNA PCR C. pneumoniae DNA (PCR) C. difficile Tox B Gene Coronavirus OC43 (PCR) Coronavirus HKU1 (PCR) Coronavirus 229E (PCR) Coronavirus NL63 (PCR) Human Metapneumovir PCR Influenza A (RT-PCR) Influenza A (H1) PCR Influ A (H1/09) PCR Influenza A (H3) PCR Influenza Type A (PCR) Influenza B (RT-PCR) Influenza Type B (PCR) M. pneumoniae (PCR) Parainfluenza 1 (PCR) Parainfluenza 2 (PCR) Parainfluenza 3 (PCR) Parainfluenza 4 (PCR) RSV (PCR) RSV RNA Qual (PCR) Entero/Rhino (PCR) SARS-CoV-2 RNA (RT-PCR) Blood Type Antibody Screen 08/21/24 08/21/24 08/21/24 06:10 06:10 06:10 WBC RBC Hgb Hct MCV MCH MCHC RDW Plt Count MPV Immature Gran % (Auto) Neut % (Auto) Lymph % (Auto) Wake % (Auto) Eos % (Auto) Baso % (Auto) Lymph # (Auto) Wake # (Auto) Eos # (Auto) Baso # (Auto) Abs Immat Gran (auto) Absolute Neuts (auto) Absolute Nucleated RBC Nucleated RBC % (auto) Hold Purple Top Sodium Potassium 3.7 Chloride 111 H 111 H Carbon Dioxide 25 25 Anion Gap 9 L BUN Creatinine Estim Creat Clear Calc Estimated GFR Random Glucose Lactic Acid Calcium Phosphorus Magnesium Total Bilirubin AST ALT Alkaline Phosphatase Troponin I High Sens Total Protein Albumin Triglycerides Lipase Beta HCG, Quant Stl C. cayetanensis PCR Stool Rotavirus A PCR Stl Adenov F 40/41 PCR Stool Astrovirus (PCR) Stool Campylobacter PCR Stool Cryptosporidium PCR Stl Sh Tox Pr E STEC PCR Stool E coli O157 PCR Stl Enterotoxigenic E PCR Stool EPEC (PCR) Stool EAEC (PCR) Stl E. histolytica PCR Stool Giardia Lamblia PCR Stl P. shigelloides PCR Stool Salmonella PCR Stool Sapovirus (PCR) Stl Shigella/EIEC PCR St Y.enterocolitica PCR Stool Vibrio (PCR) Stl Vibrio cholerae PCR Stl Norovirus GI/GII PCR Random Vancomycin Respiratory Panel Retana Adenovirus (Rapid PCR) B.pert (TEM-PCR) B.parapertussis DNA PCR C. pneumoniae DNA (PCR) C. difficile Tox B Gene Coronavirus OC43 (PCR) Coronavirus HKU1 (PCR) Coronavirus 229E (PCR) Coronavirus NL63 (PCR) Human Metapneumovir PCR Influenza A (RT-PCR) Influenza A (H1) PCR Influ A (H1/09) PCR Influenza A (H3) PCR Influenza Type A (PCR) Influenza B (RT-PCR) Influenza Type B (PCR) M. pneumoniae (PCR) Parainfluenza 1 (PCR) Parainfluenza 2 (PCR) Parainfluenza 3 (PCR) Parainfluenza 4 (PCR) RSV (PCR) RSV RNA Qual (PCR) Entero/Rhino (PCR) SARS-CoV-2 RNA (RT-PCR) Blood Type Antibody Screen 08/21/24 08/21/24 08/21/24 06:10 06:10 06:10 WBC RBC Hgb Hct MCV MCH MCHC RDW Plt Count MPV Immature Gran % (Auto) Neut % (Auto) Lymph % (Auto) Wake % (Auto) Eos % (Auto) Baso % (Auto) Lymph # (Auto) Wake # (Auto) Eos # (Auto) Baso # (Auto) Abs Immat Gran (auto) Absolute Neuts (auto) Absolute Nucleated RBC Nucleated RBC % (auto) Hold Purple Top Sodium Potassium Chloride Carbon Dioxide Anion Gap 9 L BUN 11 13 Creatinine 0.68 0.67 Estim Creat Clear Calc 92.5 Estimated GFR Random Glucose Lactic Acid Calcium Phosphorus Magnesium Total Bilirubin AST ALT Alkaline Phosphatase Troponin I High Sens Total Protein Albumin Triglycerides Lipase Beta HCG, Quant Stl C. cayetanensis PCR Stool Rotavirus A PCR Stl Adenov F 40/41 PCR Stool Astrovirus (PCR) Stool Campylobacter PCR Stool Cryptosporidium PCR Stl Sh Tox Pr E STEC PCR Stool E coli O157 PCR Stl Enterotoxigenic E PCR Stool EPEC (PCR) Stool EAEC (PCR) Stl E. histolytica PCR Stool Giardia Lamblia PCR Stl P. shigelloides PCR Stool Salmonella PCR Stool Sapovirus (PCR) Stl Shigella/EIEC PCR St Y.enterocolitica PCR Stool Vibrio (PCR) Stl Vibrio cholerae PCR Stl Norovirus GI/GII PCR Random Vancomycin Respiratory Panel Retana Adenovirus (Rapid PCR) B.pert (TEM-PCR) B.parapertussis DNA PCR C. pneumoniae DNA (PCR) C. difficile Tox B Gene Coronavirus OC43 (PCR) Coronavirus HKU1 (PCR) Coronavirus 229E (PCR) Coronavirus NL63 (PCR) Human Metapneumovir PCR Influenza A (RT-PCR) Influenza A (H1) PCR Influ A (H1/09) PCR Influenza A (H3) PCR Influenza Type A (PCR) Influenza B (RT-PCR) Influenza Type B (PCR) M. pneumoniae (PCR) Parainfluenza 1 (PCR) Parainfluenza 2 (PCR) Parainfluenza 3 (PCR) Parainfluenza 4 (PCR) RSV (PCR) RSV RNA Qual (PCR) Entero/Rhino (PCR) SARS-CoV-2 RNA (RT-PCR) Blood Type Antibody Screen 08/21/24 08/21/24 08/21/24 06:10 06:10 06:10 WBC RBC Hgb Hct MCV MCH MCHC RDW Plt Count MPV Immature Gran % (Auto) Neut % (Auto) Lymph % (Auto) Wake % (Auto) Eos % (Auto) Baso % (Auto) Lymph # (Auto) Wake # (Auto) Eos # (Auto) Baso # (Auto) Abs Immat Gran (auto) Absolute Neuts (auto) Absolute Nucleated RBC Nucleated RBC % (auto) Hold Purple Top Sodium Potassium Chloride Carbon Dioxide Anion Gap BUN Creatinine Estim Creat Clear Calc 93.8 Estimated GFR > 60 > 60 Random Glucose 137 H 137 H Lactic Acid Calcium 8.2 L Phosphorus Magnesium Total Bilirubin AST ALT Alkaline Phosphatase Troponin I High Sens Total Protein Albumin Triglycerides Lipase Beta HCG, Quant Stl C. cayetanensis PCR Stool Rotavirus A PCR Stl Adenov F 40/41 PCR Stool Astrovirus (PCR) Stool Campylobacter PCR Stool Cryptosporidium PCR Stl Sh Tox Pr E STEC PCR Stool E coli O157 PCR Stl Enterotoxigenic E PCR Stool EPEC (PCR) Stool EAEC (PCR) Stl E. histolytica PCR Stool Giardia Lamblia PCR Stl P. shigelloides PCR Stool Salmonella PCR Stool Sapovirus (PCR) Stl Shigella/EIEC PCR St Y.enterocolitica PCR Stool Vibrio (PCR) Stl Vibrio cholerae PCR Stl Norovirus GI/GII PCR Random Vancomycin Respiratory Panel Retana Adenovirus (Rapid PCR) B.pert (TEM-PCR) B.parapertussis DNA PCR C. pneumoniae DNA (PCR) C. difficile Tox B Gene Coronavirus OC43 (PCR) Coronavirus HKU1 (PCR) Coronavirus 229E (PCR) Coronavirus NL63 (PCR) Human Metapneumovir PCR Influenza A (RT-PCR) Influenza A (H1) PCR Influ A (H1/09) PCR Influenza A (H3) PCR Influenza Type A (PCR) Influenza B (RT-PCR) Influenza Type B (PCR) M. pneumoniae (PCR) Parainfluenza 1 (PCR) Parainfluenza 2 (PCR) Parainfluenza 3 (PCR) Parainfluenza 4 (PCR) RSV (PCR) RSV RNA Qual (PCR) Entero/Rhino (PCR) SARS-CoV-2 RNA (RT-PCR) Blood Type Antibody Screen 08/21/24 08/21/24 08/22/24 06:10 06:10 06:28 WBC RBC Hgb Hct MCV MCH MCHC RDW Plt Count MPV Immature Gran % (Auto) Neut % (Auto) Lymph % (Auto) Wake % (Auto) Eos % (Auto) Baso % (Auto) Lymph # (Auto) Wake # (Auto) Eos # (Auto) Baso # (Auto) Abs Immat Gran (auto) Absolute Neuts (auto) Absolute Nucleated RBC Nucleated RBC % (auto) Hold Purple Top Sodium 140 Potassium 4.1 Chloride 107 Carbon Dioxide 24 Anion Gap 13 BUN 12 Creatinine 0.69 Estim Creat Clear Calc 91.1 Estimated GFR > 60 Random Glucose 105 Lactic Acid Calcium 8.1 L 8.8 D Phosphorus 3.1 2.4 L Magnesium 2.4 2.1 Total Bilirubin 0.2 AST 22 ALT 10 Alkaline Phosphatase 42 Troponin I High Sens Total Protein 5.4 L Albumin 3.2 L 3.2 L 3.9 Triglycerides 107 Lipase Beta HCG, Quant Stl C. cayetanensis PCR Stool Rotavirus A PCR Stl Adenov F 40/41 PCR Stool Astrovirus (PCR) Stool Campylobacter PCR Stool Cryptosporidium PCR Stl Sh Tox Pr E STEC PCR Stool E coli O157 PCR Stl Enterotoxigenic E PCR Stool EPEC (PCR) Stool EAEC (PCR) Stl E. histolytica PCR Stool Giardia Lamblia PCR Stl P. shigelloides PCR Stool Salmonella PCR Stool Sapovirus (PCR) Stl Shigella/EIEC PCR St Y.enterocolitica PCR Stool Vibrio (PCR) Stl Vibrio cholerae PCR Stl Norovirus GI/GII PCR Random Vancomycin Respiratory Panel Retana Adenovirus (Rapid PCR) B.pert (TEM-PCR) B.parapertussis DNA PCR C. pneumoniae DNA (PCR) C. difficile Tox B Gene Coronavirus OC43 (PCR) Coronavirus HKU1 (PCR) Coronavirus 229E (PCR) Coronavirus NL63 (PCR) Human Metapneumovir PCR Influenza A (RT-PCR) Influenza A (H1) PCR Influ A (H1/09) PCR Influenza A (H3) PCR Influenza Type A (PCR) Influenza B (RT-PCR) Influenza Type B (PCR) M. pneumoniae (PCR) Parainfluenza 1 (PCR) Parainfluenza 2 (PCR) Parainfluenza 3 (PCR) Parainfluenza 4 (PCR) RSV (PCR) RSV RNA Qual (PCR) Entero/Rhino (PCR) SARS-CoV-2 RNA (RT-PCR) Blood Type Antibody Screen 08/23/24 08/23/24 08/23/24 06:13 08:27 11:14 WBC 2.9 L RBC 4.04 L Hgb 11.9 L Hct 34.9 L MCV 86.4 MCH 29.5 MCHC 34.1 RDW 12.8 Plt Count 113 L D MPV 11.1 Immature Gran % (Auto) 0.4 Neut % (Auto) 84.7 H Lymph % (Auto) 7.4 L Wake % (Auto) 6.7 Eos % (Auto) 0.4 Baso % (Auto) 0.4 Lymph # (Auto) 0.2 L Wake # (Auto) 0.2 Eos # (Auto) 0.0 Baso # (Auto) 0.0 Abs Immat Gran (auto) 0.01 Absolute Neuts (auto) 2.4 Absolute Nucleated RBC 0.000 Nucleated RBC % (auto) 0.0 Hold Purple Top Sodium 141 Potassium 3.6 Chloride 108 Carbon Dioxide 25 Anion Gap 12 BUN 14 Creatinine 0.65 Estim Creat Clear Calc 96.7 Estimated GFR > 60 Random Glucose 109 Lactic Acid 1.6 Calcium 8.3 L Phosphorus 3.4 Magnesium 2.4 Total Bilirubin AST ALT Alkaline Phosphatase Troponin I High Sens Total Protein Albumin 3.6 Triglycerides 43 Lipase Beta HCG, Quant Stl C. cayetanensis PCR Stool Rotavirus A PCR Stl Adenov F 40/ PCR Stool Astrovirus (PCR) Stool Campylobacter PCR Stool Cryptosporidium PCR Stl Sh Tox Pr E STEC PCR Stool E coli O157 PCR Stl Enterotoxigenic E PCR Stool EPEC (PCR) Stool EAEC (PCR) Stl E. histolytica PCR Stool Giardia Lamblia PCR Stl P. shigelloides PCR Stool Salmonella PCR Stool Sapovirus (PCR) Stl Shigella/EIEC PCR St Y.enterocolitica PCR Stool Vibrio (PCR) Stl Vibrio cholerae PCR Stl Norovirus GI/GII PCR Random Vancomycin Respiratory Panel Retana Adenovirus (Rapid PCR) B.pert (TEM-PCR) B.parapertussis DNA PCR C. pneumoniae DNA (PCR) C. difficile Tox B Gene Coronavirus OC43 (PCR) Coronavirus HKU1 (PCR) Coronavirus 229E (PCR) Coronavirus NL63 (PCR) Human Metapneumovir PCR Influenza A (RT-PCR) Influenza A (H1) PCR Influ A (H1/09) PCR Influenza A (H3) PCR Influenza Type A (PCR) Influenza B (RT-PCR) Influenza Type B (PCR) M. pneumoniae (PCR) Parainfluenza 1 (PCR) Parainfluenza 2 (PCR) Parainfluenza 3 (PCR) Parainfluenza 4 (PCR) RSV (PCR) RSV RNA Qual (PCR) Entero/Rhino (PCR) SARS-CoV-2 RNA (RT-PCR) Blood Type Antibody Screen 08/23/24 08/23/24 08/24/24 13:24 15:00 05:28 WBC 2.7 L 2.2 L RBC 3.89 L 3.96 L Hgb 11.5 L 11.7 L Hct 33.7 L 34.7 L MCV 86.6 87.6 MCH 29.6 29.5 MCHC 34.1 33.7 RDW 12.8 12.8 Plt Count 105 L 106 L MPV 10.6 11.9 Immature Gran % (Auto) 0.4 Neut % (Auto) 86.4 H Lymph % (Auto) 8.3 L Wake % (Auto) 4.5 Eos % (Auto) 0.4 Baso % (Auto) 0.0 Lymph # (Auto) 0.2 L Wake # (Auto) 0.1 Eos # (Auto) 0.0 Baso # (Auto) 0.0 Abs Immat Gran (auto) 0.01 Absolute Neuts (auto) 2.3 Absolute Nucleated RBC 0.000 0.000 Nucleated RBC % (auto) 0.0 0.0 Hold Purple Top Sodium 137 Potassium 3.8 Chloride 107 Carbon Dioxide 25 Anion Gap 9 L BUN 14 Creatinine 0.67 Estim Creat Clear Calc 93.8 Estimated GFR > 60 Random Glucose 115 Lactic Acid Calcium 8.0 L Phosphorus 2.2 L Magnesium 2.4 Total Bilirubin AST ALT Alkaline Phosphatase Troponin I High Sens Total Protein Albumin 3.5 Triglycerides Lipase Beta HCG, Quant Stl C. cayetanensis PCR Stool Rotavirus A PCR Stl Adenov F 40/41 PCR Stool Astrovirus (PCR) Stool Campylobacter PCR Stool Cryptosporidium PCR Stl Sh Tox Pr E STEC PCR Stool E coli O157 PCR Stl Enterotoxigenic E PCR Stool EPEC (PCR) Stool EAEC (PCR) Stl E. histolytica PCR Stool Giardia Lamblia PCR Stl P. shigelloides PCR Stool Salmonella PCR Stool Sapovirus (PCR) Stl Shigella/EIEC PCR St Y.enterocolitica PCR Stool Vibrio (PCR) Stl Vibrio cholerae PCR Stl Norovirus GI/GII PCR Random Vancomycin Respiratory Panel Retana See Note Adenovirus (Rapid PCR) Not Detected B.pert (TEM-PCR) Not Detected B.parapertussis DNA PCR Not Detected C. pneumoniae DNA (PCR) Not Detected C. difficile Tox B Gene Coronavirus OC43 (PCR) Not Detected Coronavirus HKU1 (PCR) Not Detected Coronavirus 229E (PCR) Not Detected Coronavirus NL63 (PCR) Not Detected Human Metapneumovir PCR Not Detected Influenza A (RT-PCR) Detected A Influenza A (H1) PCR Not Detected Influ A (H1/09) PCR Detected A Influenza A (H3) PCR Not Detected Influenza Type A (PCR) Influenza B (RT-PCR) Not Detected Influenza Type B (PCR) M. pneumoniae (PCR) Not Detected Parainfluenza 1 (PCR) Not Detected Parainfluenza 2 (PCR) Not Detected Parainfluenza 3 (PCR) Not Detected Parainfluenza 4 (PCR) Not Detected RSV (PCR) Not Detected RSV RNA Qual (PCR) Entero/Rhino (PCR) Not Detected SARS-CoV-2 RNA (RT-PCR) Not Detected Blood Type Antibody Screen 08/25/24 08/26/24 08/27/24 05:10 06:29 06:07 WBC 2.9 L 2.9 L 3.0 L RBC 3.74 L 3.54 L 3.39 L Hgb 11.0 L 10.4 L 9.9 L Hct 32.9 L 31.2 L 29.7 L MCV 88.0 88.1 87.6 MCH 29.4 29.4 29.2 MCHC 33.4 33.3 33.3 RDW 13.0 12.7 12.8 Plt Count 89 L 83 L 76 L MPV 12.1 12.2 13.1 H Immature Gran % (Auto) 0.7 H Neut % (Auto) 68.8 Lymph % (Auto) 21.8 Wake % (Auto) 8.7 Eos % (Auto) 0.0 Baso % (Auto) 0.0 Lymph # (Auto) 0.6 L Wake # (Auto) 0.3 Eos # (Auto) 0.0 Baso # (Auto) 0.0 Abs Immat Gran (auto) 0.02 Absolute Neuts (auto) 2.0 Absolute Nucleated RBC 0.000 0.000 0.000 Nucleated RBC % (auto) 0.0 0.0 0.0 Hold Purple Top Sodium 141 138 139 Potassium 4.2 3.8 3.8 Chloride 108 106 107 Carbon Dioxide 27 25 26 Anion Gap 10 L 11 L 10 L BUN 14 11 11 Creatinine 0.65 0.62 0.57 Estim Creat Clear Calc 96.7 101.4 110.3 Estimated GFR > 60 > 60 > 60 Random Glucose 110 132 H 127 H Lactic Acid Calcium 7.8 L 8.0 L 8.1 L Phosphorus 2.9 2.5 L 2.8 Magnesium 2.4 2.2 2.4 Total Bilirubin AST ALT Alkaline Phosphatase Troponin I High Sens Total Protein Albumin 3.2 L 3.4 L 3.2 L Triglycerides Lipase Beta HCG, Quant Stl C. cayetanensis PCR Stool Rotavirus A PCR Stl Adenov F 40/41 PCR Stool Astrovirus (PCR) Stool Campylobacter PCR Stool Cryptosporidium PCR Stl Sh Tox Pr E STEC PCR Stool E coli O157 PCR Stl Enterotoxigenic E PCR Stool EPEC (PCR) Stool EAEC (PCR) Stl E. histolytica PCR Stool Giardia Lamblia PCR Stl P. shigelloides PCR Stool Salmonella PCR Stool Sapovirus (PCR) Stl Shigella/EIEC PCR St Y.enterocolitica PCR Stool Vibrio (PCR) Stl Vibrio cholerae PCR Stl Norovirus GI/GII PCR Random Vancomycin Respiratory Panel Retana Adenovirus (Rapid PCR) B.pert (TEM-PCR) B.parapertussis DNA PCR C. pneumoniae DNA (PCR) C. difficile Tox B Gene Coronavirus OC43 (PCR) Coronavirus HKU1 (PCR) Coronavirus 229E (PCR) Coronavirus NL63 (PCR) Human Metapneumovir PCR Influenza A (RT-PCR) Influenza A (H1) PCR Influ A (H1/09) PCR Influenza A (H3) PCR Influenza Type A (PCR) Influenza B (RT-PCR) Influenza Type B (PCR) M. pneumoniae (PCR) Parainfluenza 1 (PCR) Parainfluenza 2 (PCR) Parainfluenza 3 (PCR) Parainfluenza 4 (PCR) RSV (PCR) RSV RNA Qual (PCR) Entero/Rhino (PCR) SARS-CoV-2 RNA (RT-PCR) Blood Type Antibody Screen 08/28/24 08/28/24 08/29/24 05:36 12:05 08:15 WBC 6.4 RBC 3.46 L Hgb 10.2 L Hct 30.1 L MCV 87.0 MCH 29.5 MCHC 33.9 RDW 13.4 Plt Count 165 D MPV 13.0 H Immature Gran % (Auto) Neut % (Auto) Lymph % (Auto) Wake % (Auto) Eos % (Auto) Baso % (Auto) Lymph # (Auto) Wake # (Auto) Eos # (Auto) Baso # (Auto) Abs Immat Gran (auto) Absolute Neuts (auto) Absolute Nucleated RBC 0.000 Nucleated RBC % (auto) 0.0 Hold Purple Top SEE NOTE Sodium 142 144 Potassium 3.7 4.0 Chloride 111 H 115 H Carbon Dioxide 22 24 Anion Gap 13 9 L BUN 16 20 H Creatinine 0.58 0.60 Estim Creat Clear Calc 108.5 104.8 Estimated GFR > 60 > 60 Random Glucose 203 H 212 H Lactic Acid Calcium 9.5 D 8.7 D Phosphorus 2.6 L 3.1 Magnesium 2.7 H 2.6 Total Bilirubin AST ALT Alkaline Phosphatase Troponin I High Sens Total Protein Albumin 3.4 L 3.3 L Triglycerides Lipase Beta HCG, Quant Stl C. cayetanensis PCR Stool Rotavirus A PCR Stl Adenov F 40/41 PCR Stool Astrovirus (PCR) Stool Campylobacter PCR Stool Cryptosporidium PCR Stl Sh Tox Pr E STEC PCR Stool E coli O157 PCR Stl Enterotoxigenic E PCR Stool EPEC (PCR) Stool EAEC (PCR) Stl E. histolytica PCR Stool Giardia Lamblia PCR Stl P. shigelloides PCR Stool Salmonella PCR Stool Sapovirus (PCR) Stl Shigella/EIEC PCR St Y.enterocolitica PCR Stool Vibrio (PCR) Stl Vibrio cholerae PCR Stl Norovirus GI/GII PCR Random Vancomycin 9.4 L Respiratory Panel Retana Adenovirus (Rapid PCR) B.pert (TEM-PCR) B.parapertussis DNA PCR C. pneumoniae DNA (PCR) C. difficile Tox B Gene Coronavirus OC43 (PCR) Coronavirus HKU1 (PCR) Coronavirus 229E (PCR) Coronavirus NL63 (PCR) Human Metapneumovir PCR Influenza A (RT-PCR) Influenza A (H1) PCR Influ A (H1/) PCR Influenza A (H3) PCR Influenza Type A (PCR) Influenza B (RT-PCR) Influenza Type B (PCR) M. pneumoniae (PCR) Parainfluenza 1 (PCR) Parainfluenza 2 (PCR) Parainfluenza 3 (PCR) Parainfluenza 4 (PCR) RSV (PCR) RSV RNA Qual (PCR) Entero/Rhino (PCR) SARS-CoV-2 RNA (RT-PCR) Blood Type Antibody Screen 08/29/24 08/30/24 08/30/24 11:59 06:43 11:43 WBC RBC Hgb Hct MCV MCH MCHC RDW Plt Count MPV Immature Gran % (Auto) Neut % (Auto) Lymph % (Auto) Wake % (Auto) Eos % (Auto) Baso % (Auto) Lymph # (Auto) Wake # (Auto) Eos # (Auto) Baso # (Auto) Abs Immat Gran (auto) Absolute Neuts (auto) Absolute Nucleated RBC Nucleated RBC % (auto) Hold Purple Top Sodium 144 Potassium 3.8 Chloride 111 H Carbon Dioxide 25 Anion Gap 12 BUN 18 H Creatinine 0.63 Estim Creat Clear Calc 99.9 Estimated GFR > 60 Random Glucose 206 H Lactic Acid Calcium 8.4 Phosphorus 2.7 Magnesium 2.6 Total Bilirubin AST ALT Alkaline Phosphatase Troponin I High Sens Total Protein Albumin 3.2 L Triglycerides Lipase Beta HCG, Quant Stl C. cayetanensis PCR Stool Rotavirus A PCR Stl Adenov F 40/41 PCR Stool Astrovirus (PCR) Stool Campylobacter PCR Stool Cryptosporidium PCR Stl Sh Tox Pr E STEC PCR Stool E coli O157 PCR Stl Enterotoxigenic E PCR Stool EPEC (PCR) Stool EAEC (PCR) Stl E. histolytica PCR Stool Giardia Lamblia PCR Stl P. shigelloides PCR Stool Salmonella PCR Stool Sapovirus (PCR) Stl Shigella/EIEC PCR St Y.enterocolitica PCR Stool Vibrio (PCR) Stl Vibrio cholerae PCR Stl Norovirus GI/GII PCR Random Vancomycin 11.7 L Respiratory Panel Retana Adenovirus (Rapid PCR) B.pert (TEM-PCR) B.parapertussis DNA PCR C. pneumoniae DNA (PCR) C. difficile Tox B Gene Coronavirus OC43 (PCR) Coronavirus HKU1 (PCR) Coronavirus 229E (PCR) Coronavirus NL63 (PCR) Human Metapneumovir PCR Influenza A (RT-PCR) Influenza A (H1) PCR Influ A (H1/09) PCR Influenza A (H3) PCR Influenza Type A (PCR) Influenza B (RT-PCR) Influenza Type B (PCR) M. pneumoniae (PCR) Parainfluenza 1 (PCR) Parainfluenza 2 (PCR) Parainfluenza 3 (PCR) Parainfluenza 4 (PCR) RSV (PCR) RSV RNA Qual (PCR) Entero/Rhino (PCR) SARS-CoV-2 RNA (RT-PCR) Blood Type A Positive Antibody Screen NEGATIVE 04/10/25 04/11/25 04/11/25 12:16 06:53 12:06 WBC RBC Hgb Hct MCV MCH MCHC RDW Plt Count MPV Immature Gran % (Auto) Neut % (Auto) Lymph % (Auto) Wake % (Auto) Eos % (Auto) Baso % (Auto) Lymph # (Auto) Wake # (Auto) Eos # (Auto) Baso # (Auto) Abs Immat Gran (auto) Absolute Neuts (auto) Absolute Nucleated RBC Nucleated RBC % (auto) Hold Purple Top Sodium 142 Potassium 3.9 Chloride 108 Carbon Dioxide 26 Anion Gap 12 BUN 17 H Creatinine 0.61 Estim Creat Clear Calc 103.1 Estimated GFR > 60 Random Glucose 230 H Lactic Acid Calcium 8.3 L Phosphorus 2.9 Magnesium 2.6 Total Bilirubin AST ALT Alkaline Phosphatase Troponin I High Sens Total Protein Albumin 3.2 L Triglycerides Lipase Beta HCG, Quant Stl C. cayetanensis PCR Stool Rotavirus A PCR Stl Adenov F 40/41 PCR Stool Astrovirus (PCR) Stool Campylobacter PCR Stool Cryptosporidium PCR Stl Sh Tox Pr E STEC PCR Stool E coli O157 PCR Stl Enterotoxigenic E PCR Stool EPEC (PCR) Stool EAEC (PCR) Stl E. histolytica PCR Stool Giardia Lamblia PCR Stl P. shigelloides PCR Stool Salmonella PCR Stool Sapovirus (PCR) Stl Shigella/EIEC PCR St Y.enterocolitica PCR Stool Vibrio (PCR) Stl Vibrio cholerae PCR Stl Norovirus GI/GII PCR Random Vancomycin 15.0 15.1 Respiratory Panel Retana Adenovirus (Rapid PCR) B.pert (TEM-PCR) B.parapertussis DNA PCR C. pneumoniae DNA (PCR) C. difficile Tox B Gene Coronavirus OC43 (PCR) Coronavirus HKU1 (PCR) Coronavirus 229E (PCR) Coronavirus NL63 (PCR) Human Metapneumovir PCR Influenza A (RT-PCR) Influenza A (H1) PCR Influ A (H1/09) PCR Influenza A (H3) PCR Influenza Type A (PCR) Influenza B (RT-PCR) Influenza Type B (PCR) M. pneumoniae (PCR) Parainfluenza 1 (PCR) Parainfluenza 2 (PCR) Parainfluenza 3 (PCR) Parainfluenza 4 (PCR) RSV (PCR) RSV RNA Qual (PCR) Entero/Rhino (PCR) SARS-CoV-2 RNA (RT-PCR) Blood Type Antibody Screen 09/01/24 09/02/24 09/02/24 05:12 06:08 12:11 WBC RBC Hgb Hct MCV MCH MCHC RDW Plt Count MPV Immature Gran % (Auto) Neut % (Auto) Lymph % (Auto) Wake % (Auto) Eos % (Auto) Baso % (Auto) Lymph # (Auto) Wake # (Auto) Eos # (Auto) Baso # (Auto) Abs Immat Gran (auto) Absolute Neuts (auto) Absolute Nucleated RBC Nucleated RBC % (auto) Hold Purple Top SEE NOTE Sodium 144 144 Potassium 3.4 3.4 Chloride 108 106 Carbon Dioxide 28 29 Anion Gap 11 L 12 BUN 19 H 19 H Creatinine 0.60 0.64 Estim Creat Clear Calc 104.8 98.3 Estimated GFR > 60 > 60 Random Glucose 132 H 122 H Lactic Acid Calcium 8.1 L 7.9 L Phosphorus 3.1 3.9 Magnesium 2.6 2.5 Total Bilirubin AST ALT Alkaline Phosphatase Troponin I High Sens Total Protein Albumin 3.0 L 3.0 L Triglycerides 132 Lipase Beta HCG, Quant Stl C. cayetanensis PCR Stool Rotavirus A PCR Stl Adenov F 40/41 PCR Stool Astrovirus (PCR) Stool Campylobacter PCR Stool Cryptosporidium PCR Stl Sh Tox Pr E STEC PCR Stool E coli O157 PCR Stl Enterotoxigenic E PCR Stool EPEC (PCR) Stool EAEC (PCR) Stl E. histolytica PCR Stool Giardia Lamblia PCR Stl P. shigelloides PCR Stool Salmonella PCR Stool Sapovirus (PCR) Stl Shigella/EIEC PCR St Y.enterocolitica PCR Stool Vibrio (PCR) Stl Vibrio cholerae PCR Stl Norovirus GI/GII PCR Random Vancomycin 22.8 H Respiratory Panel Retana Adenovirus (Rapid PCR) B.pert (TEM-PCR) B.parapertussis DNA PCR C. pneumoniae DNA (PCR) C. difficile Tox B Gene Coronavirus OC43 (PCR) Coronavirus HKU1 (PCR) Coronavirus 229E (PCR) Coronavirus NL63 (PCR) Human Metapneumovir PCR Influenza A (RT-PCR) Influenza A (H1) PCR Influ A (H1/09) PCR Influenza A (H3) PCR Influenza Type A (PCR) Influenza B (RT-PCR) Influenza Type B (PCR) M. pneumoniae (PCR) Parainfluenza 1 (PCR) Parainfluenza 2 (PCR) Parainfluenza 3 (PCR) Parainfluenza 4 (PCR) RSV (PCR) RSV RNA Qual (PCR) Entero/Rhino (PCR) SARS-CoV-2 RNA (RT-PCR) Blood Type Antibody Screen 09/02/24 09/03/24 20:56 05:43 WBC RBC Hgb Hct MCV MCH MCHC RDW Plt Count MPV Immature Gran % (Auto) Neut % (Auto) Lymph % (Auto) Wake % (Auto) Eos % (Auto) Baso % (Auto) Lymph # (Auto) Wake # (Auto) Eos # (Auto) Baso # (Auto) Abs Immat Gran (auto) Absolute Neuts (auto) Absolute Nucleated RBC Nucleated RBC % (auto) Hold Purple Top SEE NOTE Sodium 143 Potassium 3.7 Chloride 104 Carbon Dioxide 31 H Anion Gap 12 BUN 17 H Creatinine 0.65 Estim Creat Clear Calc 96.7 Estimated GFR > 60 Random Glucose 131 H Lactic Acid Calcium 8.4 D Phosphorus 4.4 Magnesium 2.7 H Total Bilirubin AST ALT Alkaline Phosphatase Troponin I High Sens Total Protein Albumin 3.0 L Triglycerides Lipase Beta HCG, Quant Stl C. cayetanensis PCR Stool Rotavirus A PCR Stl Adenov F 40/41 PCR Stool Astrovirus (PCR) Stool Campylobacter PCR Stool Cryptosporidium PCR Stl Sh Tox Pr E STEC PCR Stool E coli O157 PCR Stl Enterotoxigenic E PCR Stool EPEC (PCR) Stool EAEC (PCR) Stl E. histolytica PCR Stool Giardia Lamblia PCR Stl P. shigelloides PCR Stool Salmonella PCR Stool Sapovirus (PCR) Stl Shigella/EIEC PCR St Y.enterocolitica PCR Stool Vibrio (PCR) Stl Vibrio cholerae PCR Stl Norovirus GI/GII PCR Random Vancomycin 12.1 L Respiratory Panel Retana Adenovirus (Rapid PCR) B.pert (TEM-PCR) B.parapertussis DNA PCR C. pneumoniae DNA (PCR) C. difficile Tox B Gene Coronavirus OC43 (PCR) Coronavirus HKU1 (PCR) Coronavirus 229E (PCR) Coronavirus NL63 (PCR) Human Metapneumovir PCR Influenza A (RT-PCR) Influenza A (H1) PCR Influ A (H1/09) PCR Influenza A (H3) PCR Influenza Type A (PCR) Influenza B (RT-PCR) Influenza Type B (PCR) M. pneumoniae (PCR) Parainfluenza 1 (PCR) Parainfluenza 2 (PCR) Parainfluenza 3 (PCR) Parainfluenza 4 (PCR) RSV (PCR) RSV RNA Qual (PCR) Entero/Rhino (PCR) SARS-CoV-2 RNA (RT-PCR) Blood Type Antibody Screen Airway Mallampati Class: II TM Dist: >3cm Neck ROM: Full Loose/Missing/Broken Teeth: No Heart: RRR Lungs: CTAB Assessment and Plan Final Anesthetic Review Family History of Problems with Anesthesia: No History of Problems with Anesthesia: No NPO: Yes ASA Class: III and Emergency Final Preanesthetic Review: No Changes in Pt Med Stat, Meds/Allgs Chart Reviewed, Consent Obtained/Reviewed and Anes Risks/Benef Reviewed Patient Risk: Intermediate Procedure Risk: Intermediate Assessment/Block/Sedation in SS: Assess/Block/Sedation-SS Anesthetic Plan Anesthetic Plan: GA Disposition: Standard PACU
--- NOTE | 2024-09-03 11:26 | MHC.CLN ---
F/U DIET=FULL LIQUIDS. CONTINUES WITH TPN. NEW DX EMPYEMA. REVIEWED LABS. COMMUNICATED WITH PHARMACY. CONTINUE TPN AT 80 ML PER HOUR, 50 G LIPIDS, PROVIDES 1460 TOTAL KCALS (29.2 KCALS/KG IBW), 70 G PROTEIN (1.4 G/KG IBW), 200 G DEXTROSE REPLETE LYTES NEEDED. CHECK TRIGLYCERIDES. CONTINUE SCHEDULE OF NO LIPIDS ORDERED ON TUESDAY AND TUESDAY. MONITOR PO INTAKE, TPN TOLERANCE AND LYTES.
--- NOTE | 2024-09-03 12:07 | P.PNPL_ITS ---
Subjective Subjective Date of Service: 09/03/24 Interval history: The patient was seen on exam. Still requiring high levels of oxygen. Was scheduled to undergo decortication this morning but was canceled based on the fact that her loculated effusion appears to be small. She did have a CT scan done of the abdomen back admission on August 20 when she was initially diagnosed with norovirus. At that point the lung bases appear fairly okay some slight reaction to the pleura and nodular density were no overt consolidation. Subsequently she started developing cough she tested positive for flu A on 08/[address] scan demonstrated now a consolidation of the right lower lobe along with a loculated pleural effusion. Her repeat CAT scan looks about the same. She is coughing has a hard time expectorating. Currently on antibiotics. The patient is agreeable to a bronchoscopy to provide therapeutic cleaning of the airways also for diagnostic purposes in view of her immunocompromised state. She had been off the Eliquis and we are scheduled to undergo the bronchoscopy 13:00 today. Objective Data Labs 08/29/24 08:15 09/03/24 05:43 Labs: Laboratory Results - last 24 hr 09/02/24 09/02/24 09/03/24 12:11 20:56 05:43 Hold Purple Top SEE NOTE Sodium 143 Potassium 3.7 Chloride 104 Carbon Dioxide 31 H Anion Gap 12 BUN 17 H Creatinine 0.65 Estim Creat Clear Calc 96.7 Estimated GFR > 60 Random Glucose 131 H Calcium 8.4 D Phosphorus 4.4 Magnesium 2.7 H Albumin 3.0 L Random Vancomycin 22.8 H 12.1 L Microbiology Microbiology Results: Microbiology 08/23/24 13:24 Blood - Venous Blood Culture - Final No growth after 5 days. 08/23/24 11:14 Blood - Central Line Blood Culture - Final No growth after 5 days. 08/23/24 09:49 Blood - Venous Blood Culture - Final No growth after 5 days. 08/23/24 10:44 Blood - Central Line Blood Culture - Final Review of Systems Constitutional: Reports body ache(s) Denies hoarseness Cardiovascular: Denies palpitations Respiratory: Reports chest congestion, Reports cough, Reports excessive phlegm production and Denies wheezing Gastrointestinal: Reports as per HPI Musculoskeletal: Reports myalgias Endocrine: Denies palpitations Allergic/Immunologic: Denies wheezing Physical Exam 2 Vital Signs: Vital Signs: Last Vital Signs Temp 98.6 F 09/03/24 07:00 Pulse 50 09/03/24 08:29 Resp 22 H 09/03/24 08:29 BP 108/58 L 09/03/24 07:00 Pulse Ox 99 09/03/24 07:00 O2 Del Method Nasal Cannula 09/03/24 07:00 O2 Flow Rate 3 09/03/24 07:00 BMI result Body Mass Index 26.9 Const: General: alert, awake and tired appearing Eyes: Sclerae: sclerae normal EOM: EOMs intact bilaterally Neck: Neck: Yes no lymphadenopathy, Yes trachea midline and Yes supple Chest: Chest palpation & inspection: normal inspection of the chest Resp: Effort & Inspection: normal respiratory effort and Actively coughing Quality: wet Auscultation: diminished lung sounds Cardio: Rate: regular rate Rhythm: regular rhythm Heart sounds: no gallops, no murmurs and no rubs GI: Palpation (GI): Soft to palpation and Other GI palpation findings present ( Nontender) Auscultation: normal bowel sounds Extrem: General: Yes no pedal edema, No clubbing and No cyanosis Procedures Date of Service Date of Service: 09/03/24 Assessment and Plan Assessment and plan (1) Pleural effusion: Status: Acute (2) Pneumonia: Status: Acute (3) Influenza A: Status: Acute Plan Plan for bronchosopcy for therapeutic and diagnostic properties Agree that the pleural effusion is a complicated parapneumonic effusion, but it is small. Will try to help her expand her lung better and hopefully the effusion will absorb some. Will need serial imaging studies Time Spent With Patient Time: Total time managing care of this patient today ____ minutes. Progress Note: Quality Stroke Does the patient have a stroke diagnosis?: No
--- NOTE | 2024-09-03 12:14 | MHC.SHP ---
Pre-Procedural Eval Section A - 24 Hr Update-Section A only Date of Service: 09/03/24 The patient is an INPATIENT: Yes Section B - Complete if H&P > 30 days Chief Complaint: abd pain Allergies: Allergies Allergy/AdvReac Type Severity Reaction Status Date / Time ciprofloxacin [Cipro] Allergy Unknown Hives Verified 08/19/24 21:52 levofloxacin [Levaquin] Allergy Unknown Hives Verified 08/19/24 21:52 metoclopramide [Reglan] Allergy Unknown Hives Verified 08/19/24 21:52 ondansetron [Zofran] Allergy Unknown Itching Verified 08/19/24 21:52 penicillin V Allergy Unknown Hives Verified 08/19/24 21:52 prochlorperazine Allergy Unknown Shortness Verified 08/19/24 21:52 [From Compazine] of Breath Sulfa (Sulfonamide Allergy Unknown Hives Verified 08/19/24 21:52 Antibiotics) thalidomide [From Thalomid] Allergy Unknown Rash Verified 08/19/24 21:52 haloperidol [From Haldol] Allergy Itching Verified 08/19/24 21:52 Plan I have reviewed the history and physical and performed a pertinent physical examination on my patient. No changes have occurred unless specified. Time Spent With Patient Time: Total time managing care of this patient today ____ minutes.
--- NOTE | 2024-09-03 12:56 | MHC.CM.PN ---
Per MD rounds patient not medically cleared for dc. [facility] updated. CM will continue to follow.
--- NOTE | 2024-09-03 13:51 | P.BOP_ITS ---
Brief Operative Note Date of Service: 09/03/24 Pre-op diagnosis: pneumonia Post-op diagnosis: same Procedure: Bronchoscopy with therapeutic cleaning, washings and brushings Implants: Surgeon: Erwin Ricketts MD Anesthesia: GETA Was an Engineering Consultant used for this Procedure?: No Estimated blood loss (mL): 0 Condition: stable Disposition: floor
[2024-09-03] MEDS: Lactated Ringers 1,000 ML 50 ML IVCONT (14:40)
[2024-09-03] MEDS: Heparin Sodium,Porcine Flush 50 UNITS, 0.9 % Sodium Chloride Flush 5 ML IVFLUSH (16:25)
--- NOTE | 2024-09-03 17:10 | PC.NURSE ---
This RN was asked to assess patency of a pre-existing accessed portacath. with some resistance this RN was able to flush and + blood on return. Per Davy REGISTERED MASSAGE THERAPIST 2ml Heparin was instilled and then port de-accessed. Re-acessed with 20G x3/4 in Gripper Plus portacath access needle. Flushes with ease with +blood return. Pt alexsander well.
--- NOTE | 2024-09-03 18:35 | PC.NURSE ---
Pt seen by IR RN. Port to right low back de-accessed and reaccessed with dressing change. Tolerated well, good blood return and TPN infusing per order
[2024-09-03 21:33] LABS: Vancomycin Random 19.5 mcg/mL (15-20)
[2024-09-03] MEDS: Parenteral Nutrition 1,920 ML 80 ML IV (21:44)
[2024-09-04] MEDS: Heparin Sodium,Porcine Flush 50 UNITS, 0.9 % Sodium Chloride Flush 5 ML IVFLUSH ×2 (00:08→07:55)
[2024-09-04] MEDS: vancomycin HCL 1,000 MG in 0.9 % Sodium Chloride 250 ML 270 MG IV ×2 (00:12→11:32)
--- NOTE | 2024-09-04 02:08 | OP_ITS ---
DATE OF SERVICE: 09/03/2024 SURGEON: Erwin Ricketts MD PREOPERATIVE DIAGNOSIS: Pneumonia. POSTOPERATIVE DIAGNOSIS: Pneumonia. PROCEDURE PERFORMED: ESTIMATED BLOOD LOSS: COMPLICATIONS: ANESTHESIA: General endotracheal anesthesia. ASSISTANTS: SPECIMENS: ASA CLASSIFICATION: III. PROCEDURES PERFORMED: Bronchoscopy with therapeutic cleaning, brushings, and washings. DESCRIPTION OF PROCEDURE: After the patient was adequately sedated and intubated, the flexible digital bronchoscope was inserted with ET tube to the level of main saturnino. The main saturnino appeared to be sharp and normal. The patient did have extensive amount of purulent secretions bilaterally, right more than left, appeared to be fern color, suggesting the possibility of some degree of blood. The secretions were cleared with multiple washings with saline to try to clear and loosen up the mucus. Subsequently, it was able to be cleared after multiple attempts. After the airways were therapeutically cleaned, the airways were evaluated. No endobronchial lesions or masses appreciated. No evidence of any bleeding. The bronchoscope was then introduced into the right lower lobe where I started microscopic brushes introduce for further specimen collection. The washings were collected bilaterally and sent for microbiology evaluation as well. The bronchoscope was then removed. The total endoscopic time was approximately 12 minutes. The patient tolerated the procedure well with no evidence of any complications. No evidence of any bleeding. MATHEMATICIAN RESEARCH: None. MD ANNIA Yin/SHAYNA / [phone]
[2024-09-04] MEDS: ondansetron HCL 4 MG/2 ML VIAL IVPUSH ×2 (03:16→09:40)
[2024-09-04] MEDS: HYDROmorphone HCl 0.5 MG/0.5 ML SYRINGE IVPUSH (03:16)
[2024-09-04] MEDS: diphenhydrAMINE HCL 50 MG/ML VIAL 25 MG IVPUSH ×2 (03:16→09:41)
[2024-09-04] MEDS: Piperacillin Sodium/Tazobactam 3.375 GM in 0.9 % Sodium Chloride 50 ML IV ×2 (06:03→12:38)
[2024-09-04 07:18] LABS: Creatinine Clr Calc Pharmacy 98.3; Estimated Glomerular Filt Rate > 60
[2024-09-04 07:24] VITALS: BP 95/53; PULSE 64; RESP 18; TEMP 36.2; O2SAT 97
[2024-09-04] MEDS: Dicyclomine HCl 10 MG CAPSULE PO (07:54)
[2024-09-04] MEDS: guaiFENesin LA 600 MG TAB.ER.12H PO (07:54)
[2024-09-04] MEDS: predniSONE 20 MG TABLET 40 MG PO (07:54)
[2024-09-04] MEDS: levETIRAcetam Oral Soln 500 MG/5 ML 700 MG PO (07:55)
[2024-09-04] MEDS: 0.9 % Sodium Chloride Flush 3 ML SYRINGE IVFLUSH (07:56)
--- NOTE | 2024-09-04 07:58 | PM.DS ---
DS: Providers Provider Date of Service: 09/04/24 Date of admission: 08/20/24 08:23 Date of discharge: 09/04/24 Primary care physician: Brian Morales MD Consults: 08/27/24 09:15 Consult to Gastroenterology Routine Consulting Provider: Anastacio Alvarado Reason for consultation: worsening abd pain 08/27/24 12:23 Consult to Pulmonology Routine Consulting Provider: [facility] Pulmonology Services Reason for consultation: ? Empyema 08/29/24 14:34 Consult to Thoracic Surgery Routine Consulting Provider: Nasir Astorga Reason for consultation: Possible decortication DS: Diagnosis Discharge Diagnosis (1) Pleural effusion: Status: Acute (2) Pneumonia: Status: Acute (3) Influenza A: Status: Acute DS: Summary Hospital Course Hospital Course: History and physical as per admitting provider. The patient is a 44-year-old female with a past medical history of chronic pain syndrome, seizure disorder, DVT/PE on Eliquis, asthma, Behcet's disease, Crohn's disease, on chronic TPN who presents to [facility] ED with a 1 day history of lower abdominal pain which is, crampy in nature and intermittent but 10/10 in severity. The patient reports nonbilious/nonbloody vomiting as well as nonbloody diarrhea. The patient reports that she was in her usual state of health and these symptoms began suddenly on the day prior to hospitalization. Initially she thought they were just cramps and tried to lay down and rest. However her pain persisted and hence she presented to the emergency room. She since reports multiple bouts of vomiting as well as diarrhea. ED course: IV analgesics x 3 doses; IV antiemetics x 3 doses; IV benadryl x 3 doses; IVF 1L NS WBC 14. CT - mild thickening of transverse colon vs under distention; possible colitis . Stool studies pending 44-year-old woman with complicated, extensive medical history treated for abdominal pain, Flu and pneumonia. She was chronically on TPN and has been for about 4 years she has a port to the right flank area, port needle changed 09/03/2024. She also had a midline placed due to poor IV access (removed today). She was treated with IV fluids, antiemetics, IV Dilaudid. Found to have norovirus with GI panel and C diff negative. Diarrhea did resolve. Seen evaluated by Gastroenterology who recommended Bentyl. She unfortunately became hypoxic and had shortness of breath, CT scan showed right lower lobe pneumonia with parapneumonic effusion and loculation suggesting empyema. She was also diagnosed with influenza a on 08/23/2024 and completed a course of Tamiflu. She was started on IV Solu-Medrol, scheduled DuoNebs, Rocephin and azithromycin however after few days patient's condition did not improve and antibiotics were switched to vancomycin and Zosyn. She was seen by thoracic surgery with initial suggestion to place chest tube however IR stated that fluid collection was too small. Then it was suggested that patient have decortication, her anticoagulation was held for 2 days and upon re-evaluation of repeat imaging and discussion with thoracic surgery was decided that she would not undergo decortication. She was then seen by pulmonology who recommended bronchoscopy with therapeutic cleansing, brushing and washing which she underwent on 09/03/2024. home o2 evaluation, 3 liters with ambulation. Plan to discharge home with VNA services Other problems: Viral sepsis. Resolved . Secondary to norovirus and pneumonia Pancytopenia. Secondary to viral illness. Resolved svc obstruction, chronic Chronic pain. On p.o. Dilaudid at home Crohn's disease. not currently on therapy. receives TPN at home History of PE/DVT. previously on eliquis, do not see it on claim history but patient reports History of seizure d/o. continue Keppra Plan: Continue chronic TPN Continue Bentyl Complete antibiotic course and steroid taper Time Attestation Discharge Coordination Time (in mins): 50 Quality: Safe Use of Opioids Does Pt have an Active Cancer Diagnosis on the Problem List?: No Quality: Stroke Does the patient have a stroke diagnosis?: No Physical Exam Vital Signs: Vital Signs: Last Vital Signs Temp 97.1 F 09/04/24 07:24 Pulse 64 09/04/24 07:24 Resp 18 09/04/24 07:24 BP 95/53 L 09/04/24 07:24 Pulse Ox 97 09/04/24 07:24 O2 Del Method Nasal Cannula 09/04/24 07:24 O2 Flow Rate 3 09/04/24 07:24 FiO2 60 09/03/24 14:01 BMI result Body Mass Index 26.9 Appearing in no acute distress head is normocephalic atraumatic eyes pupils are PERRLA sclera is anicteric mouth throat mucous membranes are intact and moist neck is supple no lymphadenopathy, no JVD noted lung sounds are clear to auscultation heart regular rate rhythm, clear S1, S2 positive bowel sounds, abdomen is soft, nontender neuro patient is alert x3, no focal deficits Right flank port DS: Data Data Completed and Pending Completed studies during hospitalization [Text1]: Procedures Introduction of Other Therapeutic Substance into Spinal Canal, Percutaneous Approach (02/10/23) Introduction of Remdesivir Anti-infective into Peripheral Vein, Percutaneous Approach, [employer] (08/17/21) Labs on day of discharge: Laboratory Results - last 24 hr 09/03/24 09/04/24 21:03 06:25 Hold Purple Top SEE NOTE Creatinine 0.64 Estim Creat Clear Calc 98.3 Estimated GFR > 60 Random Vancomycin 19.5 Discharge Plan Discharge Anticipated Discharge Date/Time: 09/04/24 12:18 Patient Disposition: Home Health Service Discharge Diagnosis: Pneumonia Acute on chronic abdominal pain Viral sepsis Pancytopenia Influenza a Referrals: [facility] [Other] - 1 Week (resume TPN) [facility] [Outside] - 3-5 Days ([facility] will call you to schedule fpc and home health aide visits) Brian Morales MD [Primary Care Provider] - 1 Week Erwin Ricketts MD [Physician] - 1 Week Discharge Medications: New dicyclomine 10 mg Capsule 10 mg PO QIDACHS Qty: 56 0RF prednisone 10 mg tablet See Taper PO DIRECTED Qty: 30 0RF Taper: Prednisone 40 mg daily for 3 Days and 0 Hour 30 mg daily for 3 Days and 0 Hour 20 mg daily for 3 Days and 0 Hour 10 mg daily for 3 Days and 0 Hour Rx Instructions: see taper instructions cefuroxime axetil 500 mg tablet 500 mg PO BID Qty: 28 0RF doxycycline hyclate 100 mg tablet 100 mg PO BID Qty: 28 0RF Continued Incruse Ellipta 62.5 mcg/actuation Blister With Device 1 inh INHALATION DAILY fluticasone furoate-vilanterol [Breo Ellipta] 200-25 mcg/dose Blister With Device 1 inh INHALATION Q24H diphenhydramine HCl 50 mg/mL solution 25 mg IV QID PRN (Reason: Nausea) ondansetron HCl (PF) 4 mg/2 mL solution 4 mg IV QID PRN (Reason: Nausea) promethazine 25 mg Tablet 25 mg PO QID PRN (Reason: Nausea And Vomiting) albuterol sulfate 90 mcg/actuation HFA aerosol inhaler 2 puff inhalation Q4-6H PRN (Reason: shortness of breath or wheezing) Qty: 8.5 0RF levetiracetam 100 mg/mL solution 700 mg PO BID Eliquis 5 mg tablet 5 mg PO BID Qty: 60 0RF hydromorphone 4 mg tablet 4 mg PO BID PRN (Reason: severe pain (scale score 7-10)) 30 Days Qty: 60 0RF Rx Instructions: Partial fill per patient's request only naloxone [Narcan] 4 mg/actuation spray,non-aerosol 4 mg intranasal Q2M PRN (Reason: opioid overdose) Qty: 2 0RF Rx Instructions: spray 1 dose into ONE nostril; alternate nostrils w each dose until help arrives Discharge Orders: Discharge Order (Routine); Ordered 09/04/24 Ordered By: Cheryl Ricketts Diet: Advance to usual diet Activity on Discharge: As tolerated Stand Alone Forms: Patient Portal Discharge page Print Language: [place] Other Ambulatory Orders: XR chest 1V (Routine) Timeframe: 1 Week Facility: [facility] - Location: Radiology Ordered By: Cheryl Ricketts Care Plan Goals: Complete course of antibiotics as well as prednisone taper Follow up with primary care provider in 2 weeks Chest x-ray in 1 week Schedule an appointment with supervisor metal fabricating Dr. Ricketts Continue new oxygen 3 L with ambulation Continue chronic TPN Port needle changed on 09/03/2024 Health Concerns: Pneumonia Acute on chronic abdominal pain Viral sepsis Pancytopenia Influenza a Plan of Treatment: Follow up with primary care provider as needed Take all medications as prescribed Assessment: See discharge summary
--- NOTE | 2024-09-04 08:08 | HO.POSTANES ---
Post Anesthesia Evaluation Post Anesthesia Evaluation Date of Service: 09/04/24 Vital Signs: Vital Signs Temp Pulse Resp BP Pulse Ox O2 Del Method O2 Flow Rate 09/04/24 07:24 97.1 F 64 18 95/53 L 97 Nasal Cannula 3 09/03/24 23:00 96.8 F 60 16 97/55 L 96 Nasal Cannula 4 Anesthesia: General Mental Status: Awake Pain Control: Satisfactory Nausea/Vomiting: None Hydration: Adequate Anesthesia-Related Issues: No Anes. Related Issues
[2024-09-04] MEDS: Fluticasone/Vilanterol 200/25 BLST.W.DEV 1 PUFF INHALE (08:13)
[2024-09-04 08:15] VITALS: PULSE 57; RESP 18; O2SAT 97
--- NOTE | 2024-09-04 09:03 | P.PNPL_ITS ---
Subjective Subjective Date of Service: 09/04/24 Interval history: The patient was seen on exam. Status post bronchoscopy. Still coughing in her chest is congested. The bronchoscopy was able to clear significant amount of purulent secretions from the airways. Otherwise her airways looked healthy. Still waiting for the cultures to come back. She is currently on vanco and Zosyn. No organisms on Gram stain. She was able to wean off the oxygen this time. Objective Data Labs 08/29/24 08:15 09/04/24 06:25 Labs: Laboratory Results - last 24 hr 09/03/24 09/04/24 21:03 06:25 Hold Purple Top SEE NOTE Creatinine 0.64 Estim Creat Clear Calc 98.3 Estimated GFR > 60 Random Vancomycin 19.5 Microbiology Microbiology Results: Microbiology 09/03/24 00:00 Bronchial Washings Gram Stain - Final 09/03/24 00:00 Bronchial Washings Routine Culture - Preliminary No growth to date. 09/03/24 00:00 Lung Right Lower Lobe Gram Stain - Final 09/03/24 00:00 Lung Right Lower Lobe Routine Culture - Preliminary No growth to date. 08/23/24 13:24 Blood - Venous Blood Culture - Final No growth after 5 days. 08/23/24 11:14 Blood - Central Line Blood Culture - Final No growth after 5 days. 08/23/24 09:49 Blood - Venous Blood Culture - Final No growth after 5 days. 08/23/24 10:44 Blood - Central Line Blood Culture - Final Review of Systems Constitutional: Reports body ache(s) Denies hoarseness Cardiovascular: Denies palpitations Respiratory: Reports chest congestion, Reports cough, Reports excessive phlegm production and Denies wheezing Gastrointestinal: Reports as per HPI Musculoskeletal: Reports myalgias Endocrine: Denies palpitations Allergic/Immunologic: Denies wheezing Physical Exam 2 Vital Signs: Vital Signs: Last Vital Signs Temp 97.1 F 09/04/24 07:24 Pulse 57 09/04/24 08:15 Resp 18 09/04/24 08:15 BP 95/53 L 09/04/24 07:24 Pulse Ox 97 09/04/24 07:24 O2 Del Method Nasal Cannula 09/04/24 07:24 O2 Flow Rate 3 09/04/24 07:24 FiO2 60 09/03/24 14:01 BMI result Body Mass Index 26.9 Const: General: alert, awake and tired appearing Eyes: Sclerae: sclerae normal EOM: EOMs intact bilaterally Neck: Neck: Yes no lymphadenopathy, Yes trachea midline and Yes supple Chest: Chest palpation & inspection: normal inspection of the chest Resp: Effort & Inspection: normal respiratory effort and Actively coughing Quality: wet Auscultation: rhonchi and diminished lung sounds Cardio: Rate: regular rate Rhythm: regular rhythm Heart sounds: no gallops, no murmurs and no rubs GI: Palpation (GI): Soft to palpation and Other GI palpation findings present ( Nontender) Auscultation: normal bowel sounds Extrem: General: Yes no pedal edema, No clubbing and No cyanosis Procedures Date of Service Date of Service: 09/04/24 Assessment and Plan Assessment and plan (1) Pleural effusion: Status: Acute (2) Pneumonia: Status: Acute (3) Influenza A: Status: Acute Plan Continue broad-spectrum antibiotics, okay to switch to oral CPT with Acapella valve and incentive spirometer Chest x-ray today personally by me no significant worsening of the effusion. The patient does have a new right middle lobe opacity. This is likely post bronchoscopy as she had bronchial washings in that area Titrate oxygen to maintain a pulse ox above 90% Time Spent With Patient Time: Total time managing care of this patient today ____ minutes. Progress Note: Quality Stroke Does the patient have a stroke diagnosis?: No
[2024-09-04] MEDS: HYDROmorphone HCl 2 MG TABLET 4 MG PO (09:41)
[2024-09-04 10:12] LABS: Albumin Level 3.2 g/dL (3.5-5.0); Anion Gap 12 (12-20); Blood Urea Nitrogen 18 mg/dL (9-16); Calcium 8.6 mg/dL (8.4-10.2); Carbon Dioxide 29 mmol/L (22-29); Chloride 105 mmol/L (96-108); Creatinine Clr Calc Pharmacy 98.3; Estimated Glomerular Filt Rate > 60; Glucose Random 118 mg/dL (60-115); Magnesium 2.5 mg/dL (1.6-2.6); Phosphorus 2.9 mg/dL (2.7-4.5); Potassium 3.7 mmol/L (3.3-5.1); Sodium 142 mmol/L (135-145)
--- NOTE | 2024-09-04 10:24 | MHC.CM.PN ---
Addendum entered by Isamar Mclaughlin RN 09/04/24 13:27: Per [facility], they are not providing nursing services. Labs/port managed by [facility] outpatient infusion. Addendum entered by Isamar Mclaughlin RN 09/04/24 13:14: [facility] will also provide RUBBER COMPOUNDER SUPERVISOR services temporarily while patient is working w/ [employer] to put a BUDGET TECHNICIAN in place. Will transport home via lyft. Addendum entered by Isamar Mclaughlin RN 09/04/24 10:30: New O2 for ambulation. RT to arrange. Original Note: Per MD rounds patient medically cleared for dc home w/ resumption of TPN and nursing services through [facility]. Updated/signed TPN orders sent to [facility]. New SN through [facility]. Patient reports her son will come to [facility] ~2pm and they will get a ride home together. RN aware. IMM delivered.
[2024-09-04 10:47] VITALS: PULSE 66; PULSE 76; PULSE 82; PULSE 92; PULSE 95; O2SAT 80; O2SAT 83; O2SAT 87; O2SAT 88; O2SAT 89
--- NOTE | 2024-09-04 12:26 | W.MHC.F2F ---
Service Date Service Date: 09/04/24 Encounter Date of encounter: 09/04/24 Reasons for Services Signs and symptoms assessed: Pneumonia Influenza a Pleural effusion New oxygen Reason for group home: CV/CP assess and/or care and other (New to oxygen) Homebound: Leaving the home is medically contraindicated at this time without the asist of a device and/or another person due th the listed conditions above and below. Reason homebound: weakness related to hospital stay Certification: Based on the above findings, I certify that this patient is confined to the home and needs intermittent group home care, physical therapy and/or speech therapy, or continues to need occupational therapy. The patient is under my care, and I have initiated the establishment of the plan of care. The patient will be followed by a physician who will periodically review the plan of care. Time Spent With Patient Time: Total time managing care of this patient today ____ minutes.
== END 2024-09-04 14:02 | disposition home health service (06) | DRG 391 ==
LOC: HO.ED 08-20 04:06 → HO.EDOVER 08-20 08:30 → HO.S3 08-20 13:32
PROVIDERS: Hospitalist; Physician Assistant Medical; Admitting Provider Family Medicine; Emergency Provider Emergency Medicine; PCP Family Medicine Sports Medicine; Visit Provider Nurse Practitioner Acute Care
PROC: 0BJ08ZZ Inspection of Tracheobronchial Tree, Via Natural or Artificial Opening Endoscopic (ICD-10-PCS; CPT 31622; principal; 2024-09-03 13:00)
DX: A08.11 Acute gastroenteropathy due to Norwalk agent (principal); A41.89 Other specified sepsis; J10.08 Influenza due to other identified influenza virus with other specified pneumonia; J12.9 Viral pneumonia, unspecified; J86.9 Pyothorax without fistula; M35.2 Behcet's disease; K50.90 Crohn's disease, unspecified, without complications; D61.818 Other pancytopenia; J91.8 Pleural effusion in other conditions classified elsewhere; R10.9 Unspecified abdominal pain; R09.02 Hypoxemia; K31.84 Gastroparesis; K59.03 Drug induced constipation; T40.2X5A Adverse effect of other opioids, initial encounter; G40.909 Epilepsy, unspecified, not intractable, without status epilepticus; G89.4 Chronic pain syndrome; Z20.822 Contact with and (suspected) exposure to COVID-19; Z86.711 Personal history of pulmonary embolism; Z86.718 Personal history of other venous thrombosis and embolism; Z79.01 Long term (current) use of anticoagulants; Z79.899 Other long term (current) drug therapy
CPT/HCPCS: 0241U; 36410; 36415; 71045; 71250; 71260; 74176; 80048; 80053; 80202; 82040; 82565; 83605; 83690; 83735; 84100; 84478; 84484; 84702; 85025; 85027; 86850; 86900; 86901; 87040; 87070; 87102; 87205; 87493; 87507; 87633; 93005; 94640; 97161; 99285; J0131; J0171; J0330; J0456; J0696; J1100; J1171; J1200; J1642; J1953; J2003; J2250; J2270; J2405; J2543; J2704; J2919; J3010; J3370; J3371; J7120; Q9967

== ENCOUNTER → 2024-08-19 21:50 | Outpatient (BNV) | payer MEDICARE, MEDICAID, SELFPAY | PROVIDERS: Admitting Provider Family Medicine; Emergency Provider Emergency Medicine; PCP Family Medicine Sports Medicine; Visit Provider Internal Medicine | DX: R94.31 Abnormal electrocardiogram [ECG] [EKG] (principal); R10.9 Unspecified abdominal pain | CPT/HCPCS: 93010 ==

== ENCOUNTER → 2024-08-20 00:22 | Outpatient (BNV) | payer MEDICARE, MEDICAID, SELFPAY | PROVIDERS: Emergency Provider Emergency Medicine; PCP Family Medicine Sports Medicine; Visit Provider Radiology Diagnostic Radiology | DX: K52.9 Noninfective gastroenteritis and colitis, unspecified (principal) | CPT/HCPCS: 74176 ==

== ENCOUNTER 2024-08-20 08:23 | Outpatient (BNV) | payer MEDICARE, MEDICAID, SELFPAY | END 2024-08-27 10:34 | PROVIDERS: Admitting Provider Family Medicine; Emergency Provider Emergency Medicine; PCP Family Medicine Sports Medicine; Visit Provider Radiology Diagnostic Radiology | DX: J18.1 Lobar pneumonia, unspecified organism (principal); J90 Pleural effusion, not elsewhere classified | CPT/HCPCS: 71250 ==

== ENCOUNTER 2024-08-20 08:23 | Outpatient (BNV) | payer MEDICARE, MEDICAID, SELFPAY | END 2024-09-04 08:00 | PROVIDERS: Admitting Provider Family Medicine; Emergency Provider Emergency Medicine; PCP Family Medicine Sports Medicine; Visit Provider Radiology Diagnostic Radiology | DX: J98.11 Atelectasis (principal) | CPT/HCPCS: 71045 ==

== ENCOUNTER 2024-08-20 08:23 | Outpatient (BNV) | payer MEDICARE, MEDICAID, SELFPAY | END 2024-09-02 16:49 | PROVIDERS: Admitting Provider Family Medicine; Emergency Provider Emergency Medicine; PCP Family Medicine Sports Medicine; Visit Provider Nuclear Medicine | DX: J18.9 Pneumonia, unspecified organism (principal); J98.11 Atelectasis; I87.1 Compression of vein | CPT/HCPCS: 71260 ==

== ENCOUNTER 2024-08-20 08:23 | Outpatient (BNV) | payer MEDICARE, MEDICAID, SELFPAY | END 2024-08-29 10:18 | PROVIDERS: Admitting Provider Family Medicine; Emergency Provider Emergency Medicine; PCP Family Medicine Sports Medicine; Visit Provider Radiology Diagnostic Radiology | DX: J92.9 Pleural plaque without asbestos (principal); J94.2 Hemothorax | CPT/HCPCS: 71250 ==

== ENCOUNTER 2024-08-20 08:23 | Outpatient (BNV) | payer MEDICARE, MEDICAID, SELFPAY | END 2024-08-23 10:52 | PROVIDERS: Admitting Provider Family Medicine; Emergency Provider Emergency Medicine; PCP Family Medicine Sports Medicine; Visit Provider Radiology Diagnostic Radiology | DX: R10.9 Unspecified abdominal pain (principal); R50.9 Fever, unspecified; J92.9 Pleural plaque without asbestos; R91.8 Other nonspecific abnormal finding of lung field; R16.1 Splenomegaly, not elsewhere classified | CPT/HCPCS: 71250; 74176 ==

== ENCOUNTER → 2024-08-20 08:23 | Outpatient (BNV) | payer MEDICARE, MEDICAID, SELFPAY | PROVIDERS: Admitting Provider Family Medicine; Emergency Provider Emergency Medicine; PCP Family Medicine Sports Medicine; Visit Provider Internal Medicine Pulmonary Disease | DX: J10.1 Influenza due to other identified influenza virus with other respiratory manifestations (principal); J18.9 Pneumonia, unspecified organism; J96.01 Acute respiratory failure with hypoxia; J90 Pleural effusion, not elsewhere classified | CPT/HCPCS: 99222 ==

== ENCOUNTER → 2024-08-20 08:23 | Outpatient (BNV) | payer MEDICARE, MEDICAID, SELFPAY | PROVIDERS: Admitting Provider Family Medicine; Emergency Provider Emergency Medicine; PCP Family Medicine Sports Medicine; Visit Provider Physician Assistant Surgical | DX: J90 Pleural effusion, not elsewhere classified (principal); J18.9 Pneumonia, unspecified organism | CPT/HCPCS: 99223; 99233 ==

== ENCOUNTER → 2024-08-20 08:23 | Outpatient (BNV) | payer MEDICARE, MEDICAID, SELFPAY | PROVIDERS: Admitting Provider Family Medicine; Emergency Provider Emergency Medicine; PCP Family Medicine Sports Medicine; Visit Provider Family Medicine | DX: A08.11 Acute gastroenteropathy due to Norwalk agent (principal); J10.1 Influenza due to other identified influenza virus with other respiratory manifestations | CPT/HCPCS: 99222; 99232 ==

== ENCOUNTER 2024-09-05 10:26 | Inpatient (IN) | payer MEDICARE, MEDICAID, SELFPAY ==
[2024-09-05] VITALS (15 sets, daily range): BP systolic 100–132; BP diastolic 54–85; PULSE 69–89; RESP 16–24; TEMP 36.1–37.1; O2SAT 87–100; BMI 28.5
--- NOTE | ~2024-09-05 | XR_ITS ---
EXAMINATION: XR CHEST CLINICAL INFORMATION: dyspnea COMPARISON: 09/04/2024 TECHNIQUE: Frontal view of the chest was obtained. FINDINGS: There is mild cardiac enlargement, unchanged. Mediastinal and hilar contours appear normal. Aortic mural calcification. Lungs again demonstrate loculated pleural fluid in the major fissure on the right. There is similar increased parenchymal opacity in the medial right middle lobe distribution, suggesting persistent pneumonia. Mild prominence of the background interstitial markings, with subtle Gabriela B lines in the lung bases, possible mild interstitial edema. Mild thickening of the left apical pleura. Pleural calcified plaques. Small left effusion suspected. No focal osseous or soft tissue abnormality. XR/XR chest 1V IMPRESSION: Mild interstitial pulmonary edema. Right basilar consolidative opacity suggestive of pneumonia, appearing unchanged. Loculated effusion in the major fissure on the right. Stable calcified pleural plaques. Mild cardiomegaly. Overall no significant interval change from 09/04/2024. Electronically signed by: Hay Patten MD 09/05/2024 11:35 AM EDT
--- NOTE | ~2024-09-05 | XR_ITS ---
EXAMINATION: XR CHEST 1 VIEW HISTORY: pneumonia COMPARISON: Comparison is made with the prior examination dated 09/05/2024. FINDINGS: A single AP portable view of the chest performed at 7:28 AM is submitted. Intravenous line is seen extending from the upper abdomen to the right atrium. There has been improved aeration of the right middle lobe since the prior study. Mild residual opacity remains. There has also been improvement in previously seen pulmonary vascular congestion. Left apical pleural thickening again noted. There may be a trace left pleural effusion versus pleural thickening. There is no pneumothorax. The heart remains enlarged. The bones are intact. XR/XR chest 1V IMPRESSION: Cardiomegaly. Improvement in pulmonary vascular congestion and right middle lobe airspace opacity. Electronically signed by: Mohan Mckenna MD 09/07/2024 07:51 AM EDT
--- NOTE | 2024-09-05 10:30 | ED_ITS ---
HPI - General Adult General Chief complaint: Upper Respiratory Symptoms Stated complaint: SOB, NORO VIRUS Time Seen by Provider: 09/05/24 10:30 Source: patient, EMS, RN notes reviewed and old records reviewed Mode of arrival: EMS Limitations: no limitations History of Present Illness ED Provider: Rosa HPI narrative: Patient is a 44-year-old female with history of chronic pain, chronic constipation secondary to chronic opiate use, prior G/J tubes secondary to gastroparesis, on chronic TPN, self report of multiple ventral hernia repairs, Behcet's disease, Crohn's disease, PE on Eliquis, absence seizure disorder presenting to the emergency department with complaint of cough and shortness of breath. Seen in this ED last night and discharged home, states symptoms have worsened since that time. Complains of generalized body aches. Unsure of fevers. MD complaint: shortness of breath Onset (ago): day(s) Related Data Home Medications ?Medication ?Instructions ?Recorded ?Confirmed fluticasone furoate 200 1 inh inhalation Q24H 12/12/20 09/05/24 mcg-vilanterol 25 mcg/dose inhalation powder (Breo Ellipta) umeclidinium 62.5 mcg/actuation 1 inh inhalation DAILY 12/12/20 09/05/24 blister powder for inhalation (Incruse Ellipta) diphenhydramine HCl 50 mg/mL 25 mg IV QID PRN Nausea 03/12/21 09/05/24 injection solution ondansetron HCl (PF) 4 mg/2 mL 4 mg IV QID PRN Nausea 03/12/21 09/05/24 injection solution promethazine 25 mg tablet 25 mg PO QID PRN Nausea And 08/18/21 09/05/24 Vomiting levetiracetam 100 mg/mL oral 700 mg PO BID 08/20/24 09/05/24 solution Previous Rx's ?Medication ?Instructions ?Recorded apixaban 5 mg tablet (Eliquis) 5 mg PO BID #60 tabs 02/15/23 albuterol sulfate 90 mcg/actuation 2 puff inhalation Q4-6H PRN 09/10/23 aerosol inhaler shortness of breath or wheezing #8.5 grams naloxone 4 mg/actuation nasal 4 mg intranasal Q2M PRN opioid 02/02/24 spray (Narcan) overdose #2 ea hydromorphone 4 mg tablet 4 mg PO BID PRN severe pain (scale 07/23/24 score 7-10) 30 days #60 tabs cefuroxime axetil 500 mg tablet 500 mg PO BID #28 tabs 09/04/24 dicyclomine 10 mg capsule 10 mg PO QIDACHS #56 caps 09/04/24 doxycycline hyclate 100 mg tablet 100 mg PO BID #28 tabs 09/04/24 prednisone 10 mg tablet See Taper PO DIRECTED #30 tabs 09/04/24 Allergies Allergy/AdvReac Type Severity Reaction Status Date / Time ciprofloxacin [Cipro] Allergy Unknown Hives Verified 09/05/24 10:38 levofloxacin [Levaquin] Allergy Unknown Hives Verified 09/05/24 10:38 metoclopramide [Reglan] Allergy Unknown Hives Verified 09/05/24 10:38 ondansetron [Zofran] Allergy Unknown Itching Verified 09/05/24 10:38 penicillin V Allergy Unknown Hives Verified 09/05/24 10:38 prochlorperazine Allergy Unknown Shortness Verified 09/05/24 10:38 [From Compazine] of Breath Sulfa (Sulfonamide Allergy Unknown Hives Verified 09/05/24 10:38 Antibiotics) thalidomide [From Thalomid] Allergy Unknown Rash Verified 09/05/24 10:38 haloperidol [From Haldol] Allergy Itching Verified 09/05/24 10:38 Review of Systems 2 Review of Systems: PER hpi Yes all other systems are reviewed and are negative Constitutional: Constitutional: Reports as per HPI PMFSH Past Medical History Medical History Enterocutaneous fistula Pulmonary emboli Crohn's disease Chronic, continuous use of opioids Immunosuppression Absence seizure disorder DVT (deep venous thrombosis) Pyloric stenosis Asthma Common variable immunodeficiency Spondylolisthesis, lumbar region Spondylosis of lumbar region without myelopathy or radiculopathy Abdominal pain, chronic, generalized Gastroparesis Spontaneous pneumothorax Chronic pain syndrome Cervicalgia Low back pain Behcet's disease Surgical History History of thoracotomy Hx of gastrostomy History of hernia surgery Family History Family History Father Hairy cell leukemia Social History Social History Household Members: Children Household Members Other:: son Housing: House Do you presently have visiting nurse or other home services: No Unable to assess alcohol history related to: Unknown Alcohol intake: never Patient Tobacco Use Status: Never used Tobacco Smoked in Last 30 Days: No Second Hand Smoke Exposure: No Use of substances other than those prescribed or required for medical reasons: No Currently Displaying Signs/Symptoms of Drug Intoxication Withdrawal: No Have you been hit, kicked, punched, or otherwise hurt by someone within the past year? If so, by whom?: No Do you feel safe in your current relationship?: Yes Is there a partner from a previous relationship who is making you feel unsafe now?: No Are you made to feel afraid or neglected: No Advance Directives: Yes Advance Directives on File: Yes Advance Directives Date on File: 04/22/23 Do you have a plan to hurt others: No Plan Recently lost weight without trying: Unsure How much weight loss: Unsure Eating poorly because of decreased appetite: Yes Nutrition screen score: 5 Nutrition Risks: Gastrointestinal Malabsorption Patient : No : No Poor oral hygiene: No service: No Current occupational status: unemployed Physical Exam ED Vital Signs: Vital Signs - 24 hr 09/05/24 10:43 09/05/24 12:00 09/05/24 12:06 Temperature 98.4 F Pulse Rate 79 84 Respiratory Rate 18 24 H Blood Pressure 113/85 Pulse Oximetry 100 93 Oxygen Delivery Method Aerosol Mask Nasal Cannula Oxygen Flow Rate 09/05/24 13:43 09/05/24 14:28 09/05/24 14:45 Temperature Pulse Rate 87 84 89 Respiratory Rate 20 18 22 H Blood Pressure 132/63 120/59 L 120/61 Pulse Oximetry 93 93 94 Oxygen Delivery Method Nasal Cannula Nasal Cannula Nasal Cannula Oxygen Flow Rate 3 3 3 BMI result Body Mass Index 30.0 Vital signs have been reviewed and appear to be correct. Blood pressure normal. Heart rate normal. Respiratory rate normal. Temperature normal. Oxygen 87% on room air, requiring O2 to maintain adequate saturation. Const General: cooperative, no acute distress and ill appearing chronically Orientation/consciousness: oriented to person, oriented to place, oriented to time and patient oriented x3 Limitations: no limitations HENMT Head: Yes normocephalic and Yes atraumatic Ears: external ears normal General nose exam: Normal external nose present Face and sinus: Yes face symmetric Mouth: oropharynx normal and moist mucous membranes Throat: Yes uvula midline Eyes Pupils: Equal, round and reactive pupils present Neck Neck: Yes normal visual inspection and Yes supple Resp Effort & Inspection: normal respiratory effort and able to speak in complete sentences Auscultation: clear to auscultation bilaterally and crackles bilateral Cardio Rate: regular rate Rhythm: regular rhythm Heart sounds: S1 normal heart sound present and S2 normal heart sound present GI Palpation (GI): Soft to palpation and nontender Auscultation: normoactive bowel sounds General: Yes no CVA tenderness Back/Spine/Pelvis Back: no CVA tenderness Skin General skin exam: elasticity normal and turgor normal Neuro General: oriented to person, oriented to place, oriented to time, patient oriented x3, moves all extremities, no focal motor deficits and CN's II-XI intact bilaterally Cranial nerves: Yes Equal, round and reactive pupils present Cognition (Neuro): normal cognition Extrem General: Yes full ROM, Yes no pedal edema and Yes no calf tenderness Psych Mental Status: mental status grossly normal Affect: normal affect Thought process: Normal thought process present Medications Administered Generic Name Dose Route Start Last Admin Trade Name Freq PRN Reason Stop Dose Admin Apixaban 5 mg 09/05/24 21:00 09/05/24 20:42 Apixaban 5 Mg Tablet PO 5 mg BID ANNA Administration Dicyclomine HCl 10 mg 09/05/24 21:00 09/05/24 20:42 Dicyclomine Hcl 10 Mg Capsule PO 10 mg QIDACHS ANNA Administration Diphenhydramine HCl 25 mg 09/05/24 18:05 09/06/24 05:49 Diphenhydramine Hcl 50 Mg/Ml Vial IV 25 mg QID PRN Administration Nausea Furosemide 20 mg 09/05/24 18:00 09/05/24 18:31 Furosemide 20 Mg/2 Ml Vial IVPUSH 20 mg BID@0900,1800 ANNA Administration Protocol Hydromorphone HCl 2 mg 09/05/24 18:20 09/06/24 05:47 Hydromorphone Hcl 2 Mg Tablet PO 2 mg BID PRN Administration Pain, Severe (Pain Scale 7-10) Dextrose 1,000 mls @ 50 mls/hr 09/05/24 18:15 09/05/24 19:06 D10 IVCONT 50 mls/hr .Q20H ANNA Administration Levetiracetam 700 mg 09/05/24 21:00 09/05/24 20:40 Levetiracetam Oral Soln 500 Mg/5 Ml PO 700 mg BID ANNA Administration Ondansetron HCl 4 mg 09/05/24 18:05 09/06/24 05:49 Ondansetron Hcl 4 Mg/2 Ml Vial IV 4 mg QID PRN Administration Nausea Promethazine HCl 25 mg 09/05/24 18:05 09/06/24 00:34 Promethazine Hcl 25 Mg Tablet PO 25 mg QID PRN Administration Nausea And Vomiting Sodium Chloride 3 ml 09/06/24 00:00 09/05/24 22:54 0.9 % Sodium Chloride Flush 3 Ml Syringe IVFLUSH Not Given QSHIFT ANNA Discontinued Medications Generic Name Dose Route Start Last Admin Trade Name Freq PRN Reason Stop Dose Admin Ceftriaxone Sodium 1 gm 09/05/24 12:42 09/05/24 13:34 Ceftriaxone Sodium 1 Gm Vial IVPUSH 09/05/24 12:43 1 gm ONCE ONE Administration Albuterol Sulfate 5 mg/ 0 mg 09/05/24 12:00 09/05/24 12:05 Albuterol/Ipratropium 3 ml INHALE 09/05/24 12:01 7.5 each ONCE ONE Administration Diphenhydramine HCl 25 mg 09/05/24 12:45 09/05/24 13:11 Diphenhydramine Hcl 50 Mg/Ml Vial IVPUSH 09/05/24 12:46 25 mg ONCE ONE Administration Diphenhydramine HCl 25 mg 09/05/24 18:03 09/05/24 18:22 Diphenhydramine Hcl 50 Mg/Ml Vial IVPUSH 09/05/24 18:04 25 mg ONCE ONE Administration Furosemide 40 mg 09/05/24 16:28 09/05/24 16:49 Furosemide 40 Mg/4 Ml Vial IVPUSH 09/05/24 16:29 40 mg ONCE ONE Administration Protocol Hydromorphone HCl 4 mg 09/05/24 14:38 09/05/24 14:51 Hydromorphone Hcl 2 Mg Tablet PO 09/05/24 14:39 4 mg ONCE ONE Administration Azithromycin 500 mg/ Sodium 250 mls @ 125 mls/hr 09/05/24 12:42 09/05/24 16:03 Chloride IV 09/05/24 14:41 Infused ONCE ONE Infusion Potassium Chloride 10 meq in 100 mls @ 100 mls/hr 09/05/24 19:15 09/05/24 22:13 Potassium Chloride/H20 IV 09/05/24 21:14 Infused Q1H ANNA Infusion Methylprednisolone Sodium Succinate 125 mg 09/05/24 11:55 09/05/24 13:11 Methylprednisolone Sod Succ 125 Mg/2 Ml Vial IVPUSH 09/05/24 11:56 125 mg ONCE ONE Administration Ondansetron HCl 4 mg 09/05/24 12:42 09/05/24 13:11 Ondansetron Hcl 4 Mg/2 Ml Vial IVPUSH 09/05/24 12:43 4 mg ONCE ONE Administration Ondansetron HCl 4 mg 09/05/24 18:03 09/05/24 18:22 Ondansetron Hcl 4 Mg/2 Ml Vial IVPUSH 09/05/24 18:04 4 mg ONCE ONE Administration Oseltamivir Phosphate 75 mg 09/05/24 13:13 09/05/24 13:37 Oseltamivir Phosphate 75 Mg Capsule PO 09/05/24 13:14 75 mg ONCE ONE Administration Medical Decision Making Medical Decision Making MDM Narrative: Patient is a 44-year-old female with history of chronic pain, chronic constipation secondary to chronic opiate use, prior G/J tubes secondary to gastroparesis, on chronic TPN, self report of multiple ventral hernia repairs, Behcet's disease, Crohn's disease, PE on Eliquis, home O2 @ 3lpm via NC at baseline, absence seizure disorder, discharged yesterday after lengthy inpatient course presenting to the emergency department with complaint of cough and shortness of breath. On exam patient is awake, A+Ox3, hypoxic on room air, VS otherwise WNL, afebrile, normal neurological exam without focal deficits, physical exam findings as above. Given reported symptoms and physical exam findings, initial differential includes but is not limited to viral illness, covid, flu, pneumonia, pulmonary edema. Viral panel positive for influenza A. Labs notable for no leukocytosis, chronic anemia, mild hypokalemia, elevated BNP. X-ray chest notable for right basilar opacity, mild interstitial edema, loculated effusion on right. My interpretation is in agreement with the radiologist's interpretation. Patient had bronchoscopy with Dr. Ricketts while inpatient on 09/03, was able to maintain adequate oxygenation at discharge home. Case discussed with Dr. Ricketts, pulmonology, who notes that cultures from recent bronchoscopy were negative, recommends IV lasix, could change abx coverage to cefpodoxime/azithromycin. Admission to medicine accepted by Dr. Self. Differential Diagnosis Differential Diagnoses: The differential diagnosis associated with the presentation includes As per [facility] Admission/Observation Consideration of admission/observation: Escalation of care including admission/observation considered Consult Healthcare Provider Management of the patient was discussed with: Gastroenterology Manager (Dr. Ricketts, pulmonology) Lab Data [facility] Lab Attestation statement: I reviewed the patient's lab results. As per [facility] 09/05/24 11:10 09/05/24 11:10 Labs: Lab Results 09/05/24 09/05/24 09/05/24 Range/Units 10:57 11:10 11:15 WBC 6.5 (4.8-10.8) X10*3/uL RBC 3.73 L (4.20-5.50) X10*6/uL Hgb 10.9 L (12.0-16.0) g/dl Hct 33.2 L (37.0-47.0) % MCV 89.0 (80.0-98.0) fL MCH 29.2 (27.0-33.0) pg MCHC 32.8 (31.0-35.0) g/dl RDW 14.4 (11.0-16.0) % Plt Count 237 D (160-400) X10*3/uL MPV 11.2 (9.4-12.3) fL Immature Gran % (Auto) 0.9 H (0.0-0.4) % Neut % (Auto) 76.3 H (45-73) % Lymph % (Auto) 15.0 L (20-40) % [place] % (Auto) 6.2 (2-11) % Eos % (Auto) 1.4 (0-4) % Baso % (Auto) 0.2 (0-2) % Lymph # (Auto) 1.0 L (1.2-4.9) X10*3/uL [place] # (Auto) 0.4 (0.1-1.2) X10*3/uL Eos # (Auto) 0.1 (0.0-0.4) X10*3/uL Baso # (Auto) 0.0 (0.0-0.2) X10*3/uL Abs Immat Gran (auto) 0.06 H (0.00-0.03) X10*3/uL Absolute Neuts (auto) 4.9 (2.0-8.3) x10*3/uL Absolute Nucleated RBC 0.000 (0.0-0.012) X10*3/uL Nucleated RBC % (auto) 0.0 (0.0-0.2) /100WBC VBG pH 7.48 H (7.32-7.43) VBG pCO2 38 mmHg VBG pO2 44 mmHg VBG HCO3 28 H (22-26) mmol/L VBG O2 Saturation 78.0 % VBG Base Excess 5.3 mmol/L Sodium 144 (135-145) mmol/L Potassium 3.1 L (3.3-5.1) mmol/L Chloride 109 H (96-108) mmol/L Carbon Dioxide 26 (22-29) mmol/L Anion Gap 12 (12-20) BUN 18 H (9-16) mg/dL Creatinine 0.73 (0.5-1.4) mg/dL Estim Creat Clear Calc 83.8 Estimated GFR > 60 Random Glucose 95 (60-115) mg/dL Lactic Acid (0.5-2.0) mmol/L Calcium 8.4 (8.4-10.2) mg/dL Total Bilirubin 0.6 (0.0-1.0) mg/dL AST 19 (5-31) U/L ALT 72 H (0-31) U/L Alkaline Phosphatase 44 (39-117) U/L B-Natriuretic Peptide 980 H (<100) pg/mL Total Protein 5.8 L (6.5-8.0) g/dL Albumin 3.6 (3.5-5.0) g/dL Influenza Type A (PCR) POSITIVE A (Negative) Influenza Type B (PCR) NEGATIVE (Negative) RSV RNA Qual (PCR) NEGATIVE (Negative) SARS-CoV-2 RNA (RT-PCR) NEGATIVE (Negative) 09/05/24 Range/Units 13:29 WBC (4.8-10.8) X10*3/uL RBC (4.20-5.50) X10*6/uL Hgb (12.0-16.0) g/dl Hct (37.0-47.0) % MCV (80.0-98.0) fL MCH (27.0-33.0) pg MCHC (31.0-35.0) g/dl RDW (11.0-16.0) % Plt Count (160-400) X10*3/uL MPV (9.4-12.3) fL Immature Gran % (Auto) (0.0-0.4) % Neut % (Auto) (45-73) % Lymph % (Auto) (20-40) % [place] % (Auto) (2-11) % Eos % (Auto) (0-4) % Baso % (Auto) (0-2) % Lymph # (Auto) (1.2-4.9) X10*3/uL [place] # (Auto) (0.1-1.2) X10*3/uL Eos # (Auto) (0.0-0.4) X10*3/uL Baso # (Auto) (0.0-0.2) X10*3/uL Abs Immat Gran (auto) (0.00-0.03) X10*3/uL Absolute Neuts (auto) (2.0-8.3) x10*3/uL Absolute Nucleated RBC (0.0-0.012) X10*3/uL Nucleated RBC % (auto) (0.0-0.2) /100WBC VBG pH (7.32-7.43) VBG pCO2 mmHg VBG pO2 mmHg VBG HCO3 (22-26) mmol/L VBG O2 Saturation % VBG Base Excess mmol/L Sodium (135-145) mmol/L Potassium (3.3-5.1) mmol/L Chloride (96-108) mmol/L Carbon Dioxide (22-29) mmol/L Anion Gap (12-20) BUN (9-16) mg/dL Creatinine (0.5-1.4) mg/dL Estim Creat Clear Calc Estimated GFR Random Glucose (60-115) mg/dL Lactic Acid 1.8 (0.5-2.0) mmol/L Calcium (8.4-10.2) mg/dL Total Bilirubin (0.0-1.0) mg/dL AST (5-31) U/L ALT (0-31) U/L Alkaline Phosphatase (39-117) U/L B-Natriuretic Peptide (<100) pg/mL Total Protein (6.5-8.0) g/dL Albumin (3.5-5.0) g/dL Influenza Type A (PCR) (Negative) Influenza Type B (PCR) (Negative) RSV RNA Qual (PCR) (Negative) SARS-CoV-2 RNA (RT-PCR) (Negative) Independent Interpretation I performed an independent interpretation of an: Plain X-Ray Interpretation: X-ray chest notable for right basilar opacity, mild interstitial edema, loculated effusion on right. Radiology Impression Discussion of test interpretation with radiology: I have reviewed the radiologist's reading. Radiologist Impression: XR/XR chest 1V IMPRESSION: Mild interstitial pulmonary edema. Right basilar consolidative opacity suggestive of pneumonia, appearing unchanged. Loculated effusion in the major fissure on the right. Stable calcified pleural plaques. Mild cardiomegaly. Overall no significant interval change from 09/04/2024. External Record Review External record reviewed: Inpatient record, Office record and Outpatient record Prescription Management I considered prescription management with: Pain Medication, Antibiotic and Other Chronic Conditions Patient?s care impacted by: Other Critical Care Time Critical Care Time Critical Care Time: Yes Total Critical Care Time: 37 Attestation: I have personally provided critical care time exclusive of time spent on separately billable procedures. Time includes review of lab data, radiology results, discussion with consultants, and monitoring for potential decompensation. Intervention performed as documented. Discharge Plan Discharge Clinical Impression: Hypoxia, Pulmonary edema Patient Disposition: Admitted As Inpatient Interventions: Admission Worksheet (ED) Last Done: 09/05/24 19:59 Discharge Date/Time: 09/05/24 21:26
--- NOTE | 2024-09-05 10:46 | ECG_ITS ---
Test Reason : SOB Blood Pressure : */* mmHG Vent. Rate : 78 BPM Atrial Rate : 78 BPM P-R Int : 118 ms QRS Dur : 68 ms QT Int : 266 ms P-R-T Axes : 44 18 14 degrees QTcB Int : 303 ms Normal sinus rhythm Nonspecific ST and T wave abnormality Abnormal ECG When compared with ECG of 19-Aug-2024 21:50, Nonspecific T wave abnormality, worse in Inferior leads Inverted T waves have replaced nonspecific T wave abnormality in Anterior leads QT has shortened Referred By: Isamar Lee Electronically Signed By: EBER HUGHES MD
[2024-09-05 11:13] LABS: MANUAL DIFF FLAG NO
[2024-09-05 11:16] LABS: Basophils Percent Auto 0.2 % (0-2); Eosinophils Absolute Auto 0.1 X10*3/uL (0.0-0.4); Eosinophils Percent Auto 1.4 % (0-4); Hematocrit 33.2 % (37.0-47.0); Hemoglobin 10.9 g/dl (12.0-16.0); Imm Gran Abs Auto 0.06 X10*3/uL (0.00-0.03); Imm Gran Pct Auto 0.9 % (0.0-0.4); Mean Corpuscular HGB Conc 32.8 g/dl (31.0-35.0); Mean Corpuscular Hemoglobin 29.2 pg (27.0-33.0); Mean Platelet Volume 11.2 fL (9.4-12.3); Monocytes Absolute Auto 0.4 X10*3/uL (0.1-1.2); Monocytes Percent Auto 6.2 % (2-11); Neutrophils Absolute Auto 4.9 x10*3/uL (2.0-8.3); Neutrophils Percent Auto 76.3 % (45-73); Platelet Count 237 X10*3/uL (160-400); Red Blood Count 3.73 X10*6/uL (4.20-5.50); Red Cell Distribution Width 14.4 % (11.0-16.0); White Blood Count 6.5 X10*3/uL (4.8-10.8)
[2024-09-05 11:28] LABS: Alanine Aminotransferase 72 U/L (0-31); Albumin Level 3.6 g/dL (3.5-5.0); Alkaline Phosphatase 44 U/L (39-117); Anion Gap 12 (12-20); Aspartate Amino Transferase 19 U/L (5-31); Bilirubin Total 0.6 mg/dL (0.0-1.0); Blood Urea Nitrogen 18 mg/dL (9-16); Calcium 8.4 mg/dL (8.4-10.2); Carbon Dioxide 26 mmol/L (22-29); Chloride 109 mmol/L (96-108); Creatinine Clr Calc Pharmacy 83.8; Estimated Glomerular Filt Rate > 60; Glucose Random 95 mg/dL (60-115); Potassium 3.1 mmol/L (3.3-5.1); Sodium 144 mmol/L (135-145); Total Protein 5.8 g/dL (6.5-8.0)
[2024-09-05 11:34] LABS: B Type Natriuretic Peptide 980 pg/mL (<100)
[2024-09-05 11:43] LABS: Influenza A PCR POSITIVE (Negative); Influenza B PCR NEGATIVE (Negative); Resp Syncy Virus RNA Qual PCR NEGATIVE (Negative); SARS COV2 PCR INHOUSE NEGATIVE (Negative)
[2024-09-05] MEDS: Albuterol Sulfate 5 MG, Albuterol/Iprat 2.5/0.5MG 3 ML 3 ML INHALE (12:05)
[2024-09-05] MEDS: methylPREDNISolone Sod Succ 125 MG/2 ML VIAL IVPUSH (13:11)
[2024-09-05] MEDS: diphenhydrAMINE HCL 50 MG/ML VIAL 25 MG IVPUSH ×2 (13:11→18:22)
[2024-09-05] MEDS: ondansetron HCL 4 MG/2 ML VIAL IVPUSH ×2 (13:11→18:22)
[2024-09-05] MEDS: cefTRIAXone sodium 1 GM VIAL IVPUSH (13:34)
[2024-09-05] MEDS: Azithromycin 500 MG in 0.9 % Sodium Chloride 250 ML 125 MG IV (13:35)
[2024-09-05] MEDS: Oseltamivir Phosphate 75 MG CAPSULE PO (13:37)
[2024-09-05 13:49] LABS: Venous Blood Gas Refer to POC result
[2024-09-05 13:49] LABS: VBG pCO2 38 mmHg; VBG pH 7.48 (7.32-7.43); VBG pO2 44 mmHg
[2024-09-05 13:50] LABS: VBG Base Excess 5.3 mmol/L; VBG HCO3 28 mmol/L (22-26)
[2024-09-05 13:52] LABS: Lactic Acid 1.8 mmol/L (0.5-2.0)
--- OUTSIDE RECORDS SUMMARY | 2024-09-05 14:00 | XMS_ITS | Data Portability ---
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 Pt reports on Tuesday04/27/20 she went to [place] ER for abdominal pain, urine was tested then, blood work was WNL. CT was essentially (-) no obstruction, possible cyst on liver they are monitoring. She continues to have LLQ pain described as an ache but occasional sharp, it unrelieved when she passes gas, (+) nausea, vomited x 2 (-) diarrhea. She has been having these symptoms for >1week. She has had a normal appetite and is drinking fluids. She elicits lower back pain and is concerned she may have a UTI. Exam: alert, non toxic appearing female normal heart sounds, no edema LSCTA, breathing unlabored Abd soft, tender LLQ, (-) [place] & Psoas signs, no rebound tenderness (+) Flank tenderness bilat No rashes DDx considered, but not limited to: Crohns flare- possible, however no diarrhea, pt is well hydrated, LLQ is tender but patient does have chronic abdominal pain and had a (-) on Tuesday. Cholecystitis, mesenteric ischemia, AAA, diverticulitis, ACS, appendicitis considered, although pt does not appear to be in any distress, hemodynamically stable. Ectopic considered however patient reports no possibility of . UTI/pyelonephritis considered however dipstick (-), no dysuria. Work up/Results: UA (-) Urine culture Plan/Discussion: Discussed with patient her dipstick does not indicate a urinary track infection. We will send urine for culture and let her know of any bacterial growth. She should continue drinking fluids as tolerated. If she develops worsening back pain or abdominal pain she should return to the ER for imaging. In order to obtain further information and compare any laboratory results/values, I have accessed patient records on the [email or web address]. This information was pertinent in my medical decision making today. Time On Scene with Patient: 00:00:15 [email or web address] Not available 04/30/2020 14:10:35 12/11/2020 12/11/2020 Overview/History :Magali pretty is a 40-year-old female that is [facility] to [facility], she was discharged home from the hospital yesterday. She was seen by GI during her hospitalization, she does have a history of Crohn's and gastro paresis. [facility] with complaints of dizziness and nausea. She does confirm to me she had these complaints while in the hospital and was advised to follow up with GI as outpatient. She has tried the Phenergan that she has a prescription for but this does not help. She is intolerant to pretty much all other antiemetics. Exam: On exam patient is awake and alert with a flat affect. She is afebrile and hemodynamically stable. Orthostatic vital signs are negative. She appears in no acute distress and is able to meet me at the door and is ambulating about her apartment with a steady gait. Lungs clear to auscultation bilaterally, heart rate regular with palpable peripheral pulses. Abdomen is soft with no masses appreciated and normal bowel sounds. She does indicate left lower quadrant discomfort but no guarding or grimacing with palpation during the exam. DDx considered, but not limited to:Cause of her dizziness is unclear. Considered hyponatremia but her sodium level yesterday was normal. Considered hypotension or hypokalemia that the patient has a heart rate in the 60s and a normal blood pressure today. Orthostasis considered hover orthostatic vital signs were negative today. Cause of nausea and vomiting also unclear, she does have a history of Crohn's and gastroparesis. She did have interventional GI procedure during her hospitalization. Metabolic derangements considered however lab work just prior to discharge yesterday, less than 24 hours ago is completely normal. Work up/Results: Blood work deferred as patient had a full panel labs completed yesterday that I was able to review of her discharge paperwork of air within normal limits. Patient also had an abdominal CT and upper endoscopy during her admission no indication for further work up on the end of [facility]. Plan/Discussion:I discussed with the patient that I did not have clear causes for her lingering nausea and her dizziness. I did explain to her the conditions I was able to rule out in the home today. I have advised that she follow up with GI regarding her recurrent abdominal complaints, especially since she is already established care with them. I did reassure her I did not see any signs of an acute abdomen and nothing that requires immediate hospitalization. I did suggest she could try taking Benadryl to see if this helps with her nausea as she is intolerant to all other antiemetics and is reporting no relief and Phenergan. In regard to the patient's dizziness I did explain the conditions that I was able to rule out today I did advise she should try to stay well hydrated and she could try compression socks see if this improved her dizziness though I did explain that I do not see signs of orthostatic hypotension. Emergency room precautions reviewed. I have encouraged strong follow up with her outpatient providers. In order to obtain further information and compare any laboratory results/values, I have accessed old patient records. This information was pertinent in my medical decision making today. Proper Personal Protective Equipment (PPE), including gloves, eye protection and masks were donned and doffed appropriately and all equipment cleaned using approved technique with germicidal disposable wipes prior to and after care of this patient according to [facility] infection prevention protocols. 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 Pt reports recently seen in [place] ED for abdominal pain. She continues to have LLQ pain described as an ache, (+) nausea, poor appetite, no vomiting, diarrhea or constipation. She has been having these symptoms for months. Since being home from the hospital on 12/16/20- she has had poor appetite, inability to drink/eat very much. She does see a GI MD- Dr. Pope- plans for TPN- she has a port. She reports dizziness and weakness. She has only been voiding small amounts of concentrated urine. Exam: Alert, dehydrated, pale appearing Heart rate 60 RRR Abd round/distended DDx considered, but not limited to: Dehydration/metabo lic derangement most likely- inability to eat/drink- no nutrition since discharge from hospital Crohns flare- possible- denies diarrhea Cholecystitis, mesenteric ischemia, AAA, diverticulitis, considered Ectopic considered however patient reports no possibility of . UTI/pyelonephritis considered however dipstick (-), no dysuria. Work up/Results: Escalated to ED Plan/Discussion: Patient is requesting IV Benadryl and IV Zofran- reports nausea- unable to eat or drink much since being discharged home from hospital. She is hypotensive with SBP 70-80's. Initial reading of 68/38- R arm, recheck on L was 74/48, recheck on R arm 80/40. She reports she last took her Dilaudid this morning. She is caring for a toddler Carlita who is sleeping standing up in her walker. Advised to be seen in ED for IVF and likely TPN. Patient called jagdish father- reports he will drive her to ED, she refuses ambulance. She is ambulating but swaying, odd affect. Father arrived at 3:27p- agreed to bring patient to ED. The details of this patient case and the plan of care were discussed with the Virtual Physician production lapping machine operator for [facility]- Dr. Leon who agrees patient needs to go to ED for nutrition and fluids and to be seen again by GI specialist. The patient understood and agreed with this plan. The patient was given discharge instructions and all questions were answered prior to team departure. [email or web address] Not available 01/02/2021 11:51:51 04/26/2021 04/26/2021 Brief History: [age] y/o F PMH Bechet's, crohn's, gastroparesis, common variable immune deficiency, malabsorption on TPN at , asthma, DVT/PE (Eliquis) who presents with request for assistance with antibiotics. Pt is new to this provider and not new to . Pt is not new to her symptoms, but new to the medication problem Summary of Exam: VSS, afebrile. Appears chronically ill but non-toxic appearing. No acute distress. Ambulatory with steady gait Work up/Results: Reviewed [facility] ER records DDx considered & Medical Decision Making: Pt with acute urinary tract infection previously diagnosed in ER yesterday. Urine culture sent from this visit. Unable to dose patient with ceftriaxone IM at the time of this visit. Electronic script sent to local 24 hour pharmacy and reinforced ER precautions with pt's previous plans for follow up with PCP tomorrow and GI this month. In order to obtain further information and compare any laboratory results/values, I have accessed patient records on the [employer] with patient portal. This information was pertinent in my medical decision making today. Proper Personal Protective Equipment (PPE), including gloves, surgical mask were donned and doffed appropriately and all equipment cleaned using approved technique with germicidal disposable wipes prior to and after care of this patient according to [facility] infection prevention protocols. Time On Scene with Patient: 00:25:23 [email or web address] Not available 04/26/2021 19:41:52 01/25/2022 01/25/2022 Overview/History : 41 year old female known to but new to provider with a history of DVT/PE on Eliquis, asthma, Bachets Dx, chronic gastroparesis with home TPN therapy via port, immune deficiency seen today for not feeling well after dx with UTI at [facility] late last night/early this am. Went to urgent care on Saturday 01/20 for abd pain, vomiting, bruising and headache. Eliquis has been on hold for 3-4 weeks as was supposed to do intrathecal pump but not scheduled as of now. Urgent care referred to hospital but she did not have childcare coverage. PCP called on Jose 9/2 again told her to go to to to ED but did not have childcare coverage. Went to [place] ER last night for headache, acute on chronic abd pain (she gets Q4 zofran and Benedry IV) LLQ abd pain, diffuse upper back pain that travels down spine and all her bones hurt. Vomiting has resolved, still on TPN nightly. No diarrhea. No fever or chills but does have some chills. No chance of not sexually active. Still having frontal headache; no blurred vision. Taking excedrin. In ED pain, nausea meds, B6 given. Urine dipped, UTI with first dose of macrobid and pyridium at approximately 2am (now 215pm). 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 Pt showed all lab and abd CT results with normal CBCD, CMP, EGFR > 60. Abn CT with no etiology for abd pain complaints. Had IVF in ED Exam: Non-toxic female in no acute distress; ambulating about without incident. Afebrile, VS WNL. No sinus pressure on exam, no watery eyes, non injected; slightly dry mucus membranes; no cervical adenopathy; breathsounds bilat clear all keenan; S1S2 regular without murmur; abd soft, nondistended, mildly tender LLQ; no rebound; no suprapubic or CVA tenderness; no point pain over cervical/thoracic pain; diffuse upper back pain, non specific to palpation. DEE equally; +CMS; no edema Vital Signs: 112/66; 80; 18; 95%; 97.3 DDx considered, but not limited to: -UTI: per pt with [place] ED, culture pending -Dehydration: considered as cause of headache with normal BYN/Cr on labs though -Sinusitis: considered with frontal headache but no rhinorrhea, URI signs -Acute on chronic abd pain/gastroparesis flare Work up/Results: None indicated; pt needs to pickling tank operator prescribed meds as due for antibiotic Plan/Discussion: UTI -Increase fluids as tolerated to improve UTI and headache; use in conjunction with IV zofran - supervisor customer complaint service antibiotics (Macrobid and pyridium) -Take Excedrin scheduled BID instead of PRN Gastroparesis with acute on chronic LLQ pain -Mild in nature -Neg abd CT last night in ED -Increase water intake -Call Dr Pope (GI) for follow up Seek medical attention immediately if any increased headache/pain unresolved with Excedrin In order to obtain further information and compare any laboratory results/values, I have accessed . This information was pertinent in my medical decision making today. Time On Scene with Patient: 00:54:08 [email or web address] Not available 01/25/2022 15:03:59 Plan of Treatment Reminders Order Date Submit Date Provider Last Modified By Organization Details Last Modified Time Details Appointments None recorded. Lab culture, urine 2020 KEVIN [facility] (Centralized Electronic Ordering - All Locations), Patient Can Go To The Location Of Their Choice, [id number] 1 12:36:46 urinalysis, dipstick [address] - [place], [address] [place] [address] [place], [address], 0 11:32:18 [facility], [facility] TUCKER [facility] (Centralized Electronic Ordering - All Locations), Patient Can Go To The Location Of Their Choice, [id number] 0 10:13:17 Referral None recorded. Procedures None recorded. Surgeries None recorded. Imaging None recorded. Medication Orders nitrofurant oin monohydrate /macrocryst als 100 mg capsule 2020 [facility][id number], [address] [facility] , [place], [address], 19:32:33 Patient TargetsNo targets recorded. Patient Instructions Encounter Date Encounter Id Patient Instructions Last Modified By Organization Details Last Modified Time 04/30/2020 [id number] We tested your urine today, there is no signs of infection or any indications for antibiotics. Try to stay hydrated. If your abdominal pain or back pain gets worse please return to ED for imaging. Please note urine culture specimens can take up to four days for processing. If we receive results sooner, we will call you. If you develop any new or worsening symptoms and need after hours care, please go to nearest ER and/or call 911. If you have additional concerns or develop a change in your condition between 8am-10pm, please call [facility] at [phone] to help navigate your care. [email or web address] Not available 04/30/2020 11:32:17 12/31/2020 [id number] Care escalated t o ED [email or web address] Not available 12/31/2020 14:39:34 04/26/2021 [id number] URINARY TRACT INFECTION INSTRUCTIONS BASIC INFORMATION Urinary tract infections(UTI) can involve any portion of the urinary tract. The most common presentation is a bladder infection/cystitis, which usually presents with urinary frequency, burning with urination, urgency, foul smelling cloudy urine and occasionally blood. Kidney infections are less frequent, but more serious, and present with fever, flank pain, malaise and sometimes shaking chills. UTI? s are common in women because of the female anatomy, and much less common in males. INSTRUCTIONS Drink plenty of fluid, water is best. Drinking fluids will help to flush the bacteria from your body. Urinate every 2-3 hours Wear cotton underwear and avoid Nylon, Spandex and Lycra which tend to trap moisture and thong underwear which may facilitate UTI? s . Avoid tub baths Avoid using Super Tampons Use only mild unscented soap to wash your genitals, such as Dove or Ivory, avoid heavily scented body washes. If you are sexually active urinate as soon as possible after intercourse. Yogurt and probiotics may help to establish a more healthy genital environment, and aid in prevention. MEDICATIONS 1.Antibiotics: Usually prescribed if you have a UTI, there are many different effective antibiotics available. It is important that you complete the course of antibiotics you are given. You should feel some improvement within 24-48 hours, if you do not it may be that the bacteria causing your infection is resistant to the prescribed medication. If a urine culture is obtained it will usually take at least 3-4 days to get the final result. 2. Anesthetic/Pain relievers: Phenazopyridine (Pyridium, Uribelle, AZO) is an anesthetic excreted in the urine. This medicine will turn your urine BRIGHT ORANGE! This is normal, and may stain your underwear can contacts. Take this medication as directed with food. 3. Tylenol and Ibuprofen can be helpful for the pain, fever and body aches that can be associated with a kidney infection. Please follow recommended dosing instructions on the bottle. FOLLOW UP 1. If your symptoms are not improving in 24-48 hours 2. If your symptoms are getting more severe 3. Any unusual vaginal discharge 4. Symptoms recur after you complete medication SEEK CARE IMMEDIATELY IF 1.You have shaking chills or temperature over 101.5 2. Severe flank pain 3. Persistent vomiting, unable to keep fluids or medicine down. 4. Worse despite medication. If you develop any new or worsening symptoms and need after hours care, please go to nearest ER and/or call 911. If you have additional concerns or develop a change in your condition between 8am-10pm, please call [facility] at [phone] to help navigate your care. [email or web address] Not available 04/26/2021 19:41:58 01/25/2022 [id number] --You were seen today for ongoing headache, acute on chronic left abdominal pain with negative cat scan -You were diagnosed with UTI in ER; pickling tank operator your antibiotics and pyridium -Increase your water intake with zofran -Call Dr Eason for a follow up if your abdominal pain persists after taking your antibiotics -Seek medical attention if any increased headache, blurred vision, vomiting -Call PCP for follow up to see if they want to see you sooner than your scheduled 02/12 apt [email or web address] Not available 01/25/2022 15:07:49 Reason for Referral None Reported. Results Created Date Observation Date Name Description Value Unit Range Abnormal Flag Note LastModifiedBy Organization Detail LastModifiedTime 04/30/2005/01/2020 cultu re, urine specimen description CLEAN CATCH (URINE ) Not Available [facility] (Centralized Electronic Ordering - All Locations) Patient Can Go To The Location Of Their Choice, [id number] 05/02/2020 10:13:17 04/30/2005/01/2020 cultu re, urine special requests NONE Not Available [facility] (Centralized Electronic Ordering - All Locations) Patient Can Go To The Location Of Their Choice, [id number] 05/02/2020 10:13:17 04/30/2005/02/2020 cultu re, urine culture <10,00 0 COL/ML abnormal Not Available [facility] (Centralized Electronic Ordering - All Locations) Patient Can Go To The Location Of Their Choice, [id number] 05/02/2020 10:13:17 04/30/2005/02/2020 cultu re, urine report status FINAL 2019 Not Available [facility] (Centralized Electronic Ordering - All Locations) Patient Can Go To The Location Of Their Choice, [id number] 05/02/2020 10:13:17 04/30/20 20 04/30/2020 urina lysis , dipst ick Appearance clear Not Available Spr - [facility]me [address], [place], [address], 04/30/2020 11:29:27 04/30/20 20 04/30/2020 urina lysis , dipst ick Color yellow Not Available Spr - Home [address] [place], [address], 04/30/2020 11:29:27 04/30/20 20 04/30/2020 urina lysis , dipst ick Glucose negati ve Not Available Spr - Home [address], [place], [address], 04/30/2020 11:29:27 04/30/20 20 04/30/2020 urina lysis , dipst ick Bilirubin negati ve Not Available Spr - Home [address], [place], [address], 04/30/2020 11:29:27 04/30/20 20 04/30/2020 urina lysis , dipst ick Ketones NEG Not Available Spr - Home [address] [place], [address], 04/30/2020 11:29:27 04/30/20 20 04/30/2020 urina lysis , dipst ick Sp. Shobonier 1.030 Not Available Spr - Home [address] [place], [address], 04/30/2020 11:29:27 04/30/20 20 04/30/2020 urina lysis , dipst ick Blood + Not Available Spr - Home [address] [place], [address], 04/30/2020 11:29:27 04/30/20 20 04/30/2020 urina lysis , dipst ick pH 5.0 Not Available Spr - Home [address] [place], [address], 04/30/2020 11:29:27 04/30/20 20 04/30/2020 urina lysis , dipst ick Protein negati ve Not Available Spr - Home [address] [place], [address], 04/30/2020 11:29:27 04/30/20 20 04/30/2020 urina lysis , dipst ick Urobilirubin negati ve Not Available Spr - Home [address] [place], [address], 04/30/2020 11:29:27 04/30/20 20 04/30/2020 urina lysis , dipst ick Nitrites NEG Not Available Spr - [facility] [address] [place], [address], 04/30/2020 11:29:27 04/30/20 20 04/30/2020 urina lysis , dipst ick Leukocytes NEG Not Available Spr - [facility] [address] [address] [place], [address], 04/30/2020 11:29:27 04/26/20 21 04/27/2021 URINE CULTU RE specimen description URINE Not Available [facility] (Central[facility] Ordering - All Locations) Patient Can Go To The Location Of Their Choice, [id number] 05/01/2021 19:07:04 04/26/20 21 04/27/2021 URINE CULTU RE special requests NONE Not Available [facility] (Centralized Electronic Ordering - All Locations) Patient Can Go To The Location Of Their Choice, [id number] 05/01/2021 19:07:04 04/26/20 21 04/28/2021 URINE CULTU RE culture NO GROWTH Not Available [facility] (Centralized Electronic Ordering - All Locations) Patient Can Go To The Location Of Their Choice, [id number] 05/01/2021 19:07:04 04/26/20 21 04/28/2021 URINE CULTU RE report status FINAL 2020 Not Available [facility] (Centralized Electronic Ordering - All Locations) Patient Can Go To The Location Of Their Choice, [id number] 05/01/2021 19:07:04 Result Notes None recorded. Problems Name Problem SNOMED Code Status Onset Date Resolution Date Notes Provider Name and Address Organization Details Recorded Time Gastroparesi s syndrome 596959856 Active 2018 ELAINE PEREZ NP [address], [place], [address], [place] [facility] 9 13:12:39 Behcet's syndrome 411257370 Active 2019 America Ferrera NP [address], [place], [address], [place] [facility] 0 21:06:32 Deep venous thrombosis 589308852 Active 2019 America Ferrera NP [address], [place], [address], [place] [facility] 0 21:06:41 Pulmonary embolism 97927905 Active 2019 America Ferrera NP [address], [place], [address], [place] [facility] 0 21:06:53 Crohn's disease 44806763 Active 2019 America Ferrera NP [address], [place], [address], [place] [facility] 0 21:46:14 Problem Notes None recorded. Procedures Surgical History Date Name Laterality Status Provider Name and Address Organization Details Recorded Time 01/26/20 22 Medication Review completed Mirlande Schmidt NP [address], [place], [address], [place] [facility] 01/25/2022 15:08:05 01/01/20 21 Medication Review completed Tete Escalante NP [address], [place], [address], [place] [facility] 12/31/2020 13:43:54 05/20/20 19 Venipuncture - DH completed ELAINE PEREZ NP [address] [address], [place], [address], [place] [facility] 05/24/2019 12:06:55 05/20/20 19 ECG Interpretation - DH completed ELAINE PEREZ, [employer] [address], [place], [address], [place] [facility] 05/20/2019 20:46:01 Port, indwelling, imp completed ANDREWS HUNTLEY, PEARL [address], [place], [address], [place] [facility] 04/26/2021 19:09:01 Remove tonsils and adenoids completed Nora more-doug ckso [place] [facility] 02/26/2019 13:37:50 laparotomy completed Nora more-doug ckso [place] [facility] 02/26/2019 13:37:50 Hernia Repair completed Nora more-doug ckso [place] [facility] 02/26/2019 13:37:50 jejunotomy completed Nora more-doug ckso [place] [facility] 02/26/2019 13:37:50 angioplasty of blood vessel completed Nora more-doug ckso [place] [facility] 02/26/2019 13:37:50 gastrostomy completed Nora more-doug ckso [place] [facility] 02/26/2019 13:37:50 Hernia repair w/mesh completed HARJINDER UNGER NP [address] [facility], [place], [address], [place] [facility] 02/24/2019 09:17:51 Imaging Results None recorded. Procedure Notes None recorded. Medical Equipment None Reported. Allergies Allergen ID Allergen Name Allergen Category Reaction Reaction Severity Criticality Documentation Date Start Date Code Code System Note Provider Name and Address Organization Details Recorded Time 11726 Product containin g penicilli n (product) medicatio n rash Not available Not available 01/13/2019 94629 8001 SNOMED Nora more-e rickso null, [place] [facility] 9 13:37:49 24164 Bactrim medicatio n rash Not available Not available 01/13/2019 89782 9 RxNorm Nora more-e rickso null[place] [facility] 9 13:37:49 72797 Reglan medicatio n rash Not available Not available 01/13/2019 9230 RxNorm Nora more-e rickso null[place] [facility] 9 13:37:49 65577 Cipro medicatio n rash Not available Not available 01/13/201930417 3 RxNorm Nora more-e rickso null[place] [facility] 9 13:37:49 52948 thalidomi de medicatio n hives Not available Not available 01/13/2019 54051 RxNorm Nora more-e rickso null[place] [facility] 9 13:37:49 27737 Avelox medicatio n rash Not available Not available 01/13/2019 69794 6 RxNorm Nora more-e rickso null[place] [facility] 9 13:37:49 65875 Compazine medicatio n rash Not available Not available 01/13/201906978 6 RxNorm Nora more-e rickso null[place] [facility] 9 13:37:49 07616 penicilla mine medicatio n Not available Not available Not available 02/24/2019 7975 RxNorm HARJINDER UNGER, [employer] [address] [place], [address], [place] [facility] 9 09:14:07 61914 Bactrim medicatio n Not available Not available Not available 02/24/2019 60341 9 RxNorm ELAINE PEREZ , [place]AR[place] [address] [place], [address], [place] [facility] 9 13:11:15 82889 Reglan medicatio n Not available Not available Not available 02/24/2019 9230 RxNorm ELAINE PEREZ , [place] [address] [place], [address], [place] [facility] 9 13:11:30 53999 Cipro medicatio n Not available Not available Not available 02/24/201948647 3 RxNorm ELAINE PEREZ , [place] [address] [place], [address], [place] [facility] 9 13:11:19 54518 thalidomi de medicatio n Not available Not available Not available 02/24/2019 34381 RxNorm ELAINE PEREZ , [employer] [address], [place], [address], [place] [facility] 9 13:11:36 72304 Avelox medicatio n Not available Not available Not available 02/24/2019 17371 6 RxNorm ELAINE PEREZ , [employer] [address], [place], [address], [place] [facility] 9 13:11:11 69571 Compazine medicatio n Not available Not available Not available 02/24/2019 30454 6 RxNorm ELAINE PEREZ , [employer] [address], [facility] [place], [address], [place] [facility] 9 13:11:23 93593 Levaquin medicatio n Not available Not available Not available 02/24/2019 08023 2 RxNorm HARJINDER UNGER, [employer] [address], [place], [address], [place] [facility] 9 09:14:57 89603 Zofran medicatio n Not available Not available Not available 02/24/2019 10193 RxNorm HARJINDER UNGER, [employer] [address], [facility] [place], [address], [place] [facility] 9 09:15:07 Medications Name Sig Start Date Stop Date Status Note LastModified by Organization Details LastModified Time nystatin 100,000 unit/mL oral suspension Take 5 mL 4 times a day by oral route for 14 days. 04/18 completed Not Available Not Available Not Available prednisone 10 mg tablet 03/20 completed Not Available Not Available Not Available nitrofurant oin macrocrysta l 50 mg capsule 03/20 completed Not Available Not Available Not Available doxycycline hyclate 100 mg capsule 02/24 completed Not Available Not Available Not Available trazodone 50 mg tablet 03/20 completed Not Available Not Available Not Available cetirizine 10 mg tablet TAKE 1 TABLET BY MOUTH ONCE TO TWICE DAILY NEEDED FOR ALLERGY active Not Available Not Available No t Available tizanidine 4 mg tablet TAKE 1 TABLET BY MOUTH NIGHTLY AT BEDTIME NEEDED 01/25 completed Not Available Not Available Not Available ketotifen 0.025 % (0.035 %) eye drops PUT 1 DROP INTO BOTH EYES TWICE A DAY NEEDED 01/25 completed Not Available Not Available Not Available prednisone 20 mg tablet TAKE 2 TABLETS BY MOUTH EVERY DAY FOR 5 DAYS 01/25 completed Not Available Not Available Not Available dexamethaso ne 6 mg tablet TAKE 1 TABLET BY MOUTH EVERY DAY 01/25 completed Not Available Not Available Not Available prednisone 5 mg tablet 04/26 completed Not Available Not Available Not Available Pyridium 100 mg tablet Take 1 tablet 3 times a day by oral route for 2 days. 05/20 completed Not Available Not Available Not Available oxycodone 5 mg/5 mL oral solution 03/20 completed Not Available Not Available Not Available hydroxyzine HCl 50 mg tablet 03/20 completed Not Available Not Available Not Available tramadol 50 mg tablet 03/20 completed Not Available Not Available Not Available pantoprazol e 20 mg tablet,maribel yed release 01/25 completed Not Available Not Available Not Available hydromorpho ne 2 mg tablet 03/20 completed Not Available Not Available Not Available diphenhydra mine 50 mg/mL injection solution active Not Available Not Available Not Available trazodone 100 mg tablet 03/20 completed Not Available Not Available Not Available baclofen 10 mg tablet 02/24 completed Not Available Not Available Not Available benzonatate 100 mg capsule TAKE 1 CAPSULE BY MOUTH THREE TIMES A DAY FOR 10 DAYS 03/20 completed Not Available Not Available Not Available pantoprazol e 40 mg tablet,maribel yed release 03/20 completed Not Available Not Available Not Available triamcinolo ne acetonide 55 mcg nasal spray aerosol USE 2 SPRAYS IN EACH NOSTRIL ONCE TO TWICE DAILY NEEDED DIRECTED 03/20 completed Not Available Not Available Not Available promethazin e 25 mg tablet TAKE 1 TABLET BY MOUTH 4 TIMES A DAY NEEDED FOR NAUSEA. 01/25 completed Not Available Not Available Not Available Advair Diskus 500 mcg-50 mcg/dose powder for inhalation 03/20 completed Not Available Not Available Not Available gabapentin 300 mg capsule 03/20 completed Not Available Not Available Not Available azelastine 137 mcg (0.1 %) nasal spray 01/25 completed Not Available Not Available Not Available azithromyci n 200 mg/5 mL oral suspension 02/24 completed Not Available Not Available Not Available methylpredn isolone 4 mg tablets in a dose pack 03/20 completed Not Available Not Available Not Available hydromorpho ne 4 mg tablet TAKE 1 TABLET BY MOUTH 3 TIMES A DAY NEEDED FOR PAIN active Not Available Not Available No t Available morphine 15 mg immediate release tablet TAKE 1 TABLET BY MOUTH 3 TIMES DAILY NEEDED FOR PAIN FOR 23DAYS 01/25 completed Not Available Not Available Not Available ondansetron 4 mg disintegrat ing tablet 01/25 completed Not Available Not Available Not Available fluticasone propionate 50 mcg/actuati on nasal spray,suspe nsion 01/25 completed Not Available Not Available Not Available doxycycline hyclate 100 mg tablet 03/20 completed Not Available Not Available Not Available nortriptyli ne 50 mg capsule 03/20 completed Not Available Not Available Not Available Ventolin HFA 90 mcg/actuati on aerosol inhaler active Not Available Not Available Not Available magnesium 250 mg (as magnesium oxide) tablet TAKE 1 TABLET BY MOUTH EVERY DAY 03/20 completed Not Available Not Available Not Available levetiracet am 100 mg/mL oral solution TAKE 7 ML (700 MG TOTAL) BY MOUTH 2 (TWO) TIMES A DAY. active Not Available Not Available No t Available nitrofurant oin monohydrate /macrocryst als 100 mg capsule TAKE 1 CAPSULE BY MOUTH TWICE A DAY FOR 5 DAYS active Not Available Not Available No t Available Lactobacill us acidophilus 1 billion cell tablet TAKE 1 TABLET BY MOUTH TWICE A DAY 03/20 completed Not Available Not Available Not Available Ascensia BRIO kit 03/20 completed Not Available Not Available Not Available promethazin e 04/16 completed Not Available Not Available Not Available Keppra 04/30 completed Not Available Not Available Not Available Advair Diskus 04/16 completed Not Available Not Available Not Available hydromorpho ne (bulk) 04/16 completed Not Available Not Available Not Available ProAir HFA 01/25 completed Not Available Not Available Not Available ondansetron HCl (PF) 4 mg/2 mL injection solution active Not Available Not Available Not Available hydromorpho ne (PF) 10 mg/mL injection solution 03/20 completed Not Available Not Available Not Available doxepin 3 mg tablet TAKE 1 TABLET BY MOUTH EVERY DAY 01/25 completed Not Available Not Available Not Available Probiotic and Acidophilus 300 million cell-250 mg capsule Take 1 capsule every day by oral route for 30 days. 04/30 completed Not Available Not Available Not Available Butrans 10 mcg/hour transdermal patch 02/24 completed Not Available Not Available Not Available Eliquis 5 mg tablet TAKE 1 TABLET BY MOUTH TWICE A DAY active Not Available Not Available No t Available Eliquis 01/25 completed Not Available Not Available Not Available Otezla 30 mg tablet 03/20 completed Not Available Not Available Not Available Incruse Ellipta 62.5 mcg/actuati on powder for inhalation INHALE 1 PUFF BY MOUTH EVERY 24 HOURS, DOSES SHOULD BE TAKEN AT LEAST 24 HOURS APART active Not Available Not Available No t Available Otezla Starter 10 mg (4)-20 mg (4)-30 mg(47) tablets in a dose pack 01/25 completed Not Available Not Available Not Available Breo Ellipta 200 mcg-25 mcg/dose powder for inhalation active Not Available Not Available N ot Available Belbuca 150 mcg buccal film 04/18 completed Not Available Not Available Not Available Narcan 4 mg/actuatio n nasal spray ADMINISTE R 1 SPRAY INTO ONE NOSTRIL. CALL 911. REPEAT AFTER 2 3 MIN IF NO OR MINIMAL RESPONSE 01/25 completed Not Available Not Available Not Available Vitals Date Recorded Body temperature Heart rate Respiratory rate Oxygen saturation Oxygen saturation in Arterial blood by Pulse oximetry Systolic blood pressure Diastolic blood pressure Provider Name and Address Organization Details Last Updated DateTime 0 97.4 [degF] 64 /min 16 /min 99 % 99 % 110 mm[Hg] 64 mm[Hg] Not Available [facility] 0 11:19:12 Date Recorded Oxygen saturation Oxygen saturation in Arterial blood by Pulse oximetry Heart rate Respiratory rate Body temperature Systolic blood pressure Diastolic blood pressure Systolic blood pressure Diastolic blood pressure Systolic blood pressure Diastolic blood pressure Systolic blood pressure Diastolic blood pressure Provider Name and Address Organization Details Last Updated DateTime 1 98 % 98 % 65 /min 18 /min 97.3 [degF] 122 mm[Hg] 66 mm[Hg] 120 mm[Hg] 70 mm[Hg] 118 mm[Hg] 66 mm[Hg] 112 mm[Hg] 64 mm[Hg] Not Available [facility] 1 14:30:28 Date Recorded Respiratory rate Oxygen saturation Oxygen saturation in Arterial blood by Pulse oximetry Heart rate Body temperature Systolic blood pressure Diastolic blood pressure Provider Name and Address Organization Details Last Updated DateTime 1 18 /min 93 % 93 % 60 /min 97.7 [degF] 74 mm[Hg] 40 mm[Hg] Not Available [facility] 1 14:14:28 Date Recorded Body temperature Heart rate Respiratory rate Oxygen saturation Oxygen saturation in Arterial blood by Pulse oximetry Systolic blood pressure Diastolic blood pressure Provider Name and Address Organization Details Last Updated DateTime 1 97.8 [degF] 90 /min 20 /min 97 % 97 % 110 mm[Hg] 70 mm[Hg] Not Available [facility] 1 19:13:37 Date Recorded Oxygen saturation Oxygen saturation in Arterial blood by Pulse oximetry Heart rate Respiratory rate Body temperature Systolic blood pressure Diastolic blood pressure Provider Name and Address Organization Details Last Updated DateTime 2 95 % 95 % 80 /min 18 /min 97.3 [degF] 112 mm[Hg] 66 mm[Hg] Not Available [facility] 2 14:03:13 Social History Question Answer Notes LastModified by Organizat ion Details LastModified Time Tobacco Smoking Status Never Smoker HARJINDER UNGER NP [address] [facility] [place], [address], [place] [facility] 02/24/2019 09:16:56 Drugs Abused None Information not available 02/24/2019 Marital Status Single Informatio n not available 02/24/2019 Sex: Unknown Functional Status None recorded. Mental Status None recorded. Family History Relationship Description Onset Age of this Age Resolved Age Notes LastModified by Organization Details LastModified Time Father Leukemia [email or web address] Not available 02/26/2019 13:37:49 Father Coronary arterioscler osis [email or web address] Not available 02/24 09:16:52 Mother Hypertensive disorder [email or web address] Not available 02/24 09:16:42 Medical History Condition Response Diabetes N Coronary Artery Disease N High Cholesterol N Cancer N Pulmonary Embolism Y Stroke N Hypertension N Asthma Y COPD N Depression N Kidney Disease N Gynecological HistoryNo gynecological history recorded. Obstetrics History GPAL:G 0 P 0 0 0 0 Past Encounters Encounter ID Performer Location Encounter Start Date Encounter Closed Date Diagnosis/Indication Diagnosis SNOMED-CT Code Diagnosis ICD10 Code Diagnosis Note [id number] Nora more-er ickso [facility] [address] [place] [address] 01/13/2019 15:41:39 01/15/2019 13:01:16 Contusion of upper arm 01307837 S40.029A [id number] HARJINDER UNGER NP [facility] [address] [place] [address] 02/24/2019 09:01:29 02/26/2019 13:15:01 Pain in throat 296774675 R07.0 Candidiasis of mouth 797 82154 B37.0 Called Pharmacist to add1 part Diphenhydr amine 12.5 mg/5 mL1 part Viscous lidocaine 2%1 part MaaloxPT will take 5ml QID swish and swallow. Pharyngitis 414111191 J0 2.9 [id number] ELAINE PEREZ NP [facility] [address] [place] [address] 04/16/2019 13:10:41 04/16/2019 20:09:51 Urinary tract infectious disease 16747379 N39.0 [id number] NIVIA CAMPBELL [facility] [address] [place] [address] 04/18/2019 15:47:19 04/20/2019 11:55:41 Fever 392377802 R50.9 Lower abdominal pain 545 31024 R10.30 Acute urin doris tract infection 127900752 N39.0 Headache 24105319 R51 Nausea 297747676 R11.0 [id number] ELAINE GRAYROZINAJAMESSRUTHI, [employer] [facility] [address] [facility] [place] [address] 05/20/2019 20:06:21 05/22/2019 10:30:18 Headache 27300670 R51 Syncope and collapse 309 983305 R55 Long-term current use of anticoagulant 074124371 Z79.01 [id number] NIVIA DIAZ [facility] [address] [facility] [place] [address] 07/29/2019 11:17:51 07/31/2019 18:23:01 Dizziness present 898666627 R42 Viral gastroenteritis 11 5534336 A08.4 Orthostati c hypotension 28450621 I95.1 Diarrhea 81797188 R19.7 [id number] America Ferrera, [place] [facility] [address] [facility] [place] [address] 03/20/2020 21:03:52 03/21/2020 14:55:42 Diarrhea 02260504 R19.7 Overview/H istory: Patient is a 39 year old female who is alert and oriented reports lightheade dness as a result of 5 days of diarrhea. Patient reports 10 episodes of diarrhea every 24 hours x 5 days accompanie d by intermitte nt bouts of nausea. Patient history is significan t for gastropare sis syndrome, Crohns Disease, Behcet's Syndrome, PE and DVT. Patient did not report her gastrointe stinal symptoms to her GI specialist provider. Exam: Patient VSS with exception of temperatur e of 99.4. HRR, S1 and S1 appreciate d with no indication of rub, murmur, gallop. Her lung sounds are clear bilaterall y. Abdomen is soft, non-tender and bowel sounds are hyperactiv e. There is no CVA tenderness on exam. Mucous membranes are moist and skin turgor is WNL. DDx considered , but not limited to:UTI considered , but not likely,pat ient temp of 99.4, report of decreased urine output this day. Urine is dark yellow, sediment noted. negative leukocytes , negative nitratesde hydration likely based on patient report of multiple episodes of diarrhea and appearance of urinehypot ension not likely based on patient VSdiarrhea likely given patient medical history, hyperactiv e bowel sounds. Work up/Results :Urine dipstick indicates no preliminar y infection, UA C&S sent to lab for confirmati on Dehydration 02026008 E86 .0 Abdominal pain 14800837 R10.9 Urinary tr act infectious disease 46078723 N39.0 [id number] Tete Escalante NP [facility] [address] [facility] [place] [address] 04/30/2020 11:13:21 04/30/2020 14:15:49 Flank pain 130623025 R10.9 [id number] NAZNAIN TOLBERT NP [facility] [address] [facility] [place] [address] 12/11/2020 14:07:27 12/19/2020 16:56:53 Nausea 724054394 R11.0 Dizziness 988649957 R42 [id number] Tete Escalante NP [facility] [address] [facility] [place] [address] 12/31/2020 13:18:40 01/01/2021 19:35:42 Dehydration 82849355 E86.0 Abdominal pain 39094506 R10.9 [id number] Ron Moore MD [facility] [address] [facility] [place] [address] 04/26/2021 19:07:16 04/30/2021 11:12:07 Acute urinary tract infection 033926253 N39.0 [id number] Mirlande Schmidt NP [facility] [address] [facility] [place] [address] 01/25/2022 13:57:56 01/27/2022 19:23:10 Gastroparesis syndrome 826542722 K31.84 Acute on chronic Acute urin doris tract infection 586887251 N39.0 Health Concerns Section Related Observation LastModified by Organization Detai ls LastModified Time None Recorded Concern Status LastModified by Organization Details LastModified Time None Recorded Advance Directives Directive None Recorded Payers Encounter Date Sequence Insurance Name Policy Number Policy Schneider Covered Member ID Schneider Member ID Guarantor Name 04/30/2020 2 [place] Chavez [id number] Brooklyn Chavez 04/30/2020 1 [place] [employer] Brooklyn Romeroers [id number] Brooklyn Chavez 12/11/2020 2 [place] [facility] Brooklyn Chavez [id number] Brooklyn Chavez 12/11/2020 2 [place] [facility] Brooklyn Romeroers [id number] Brooklyn Chavez 12/31/2020 2 [place] [facility] Brooklyn Chavez [id number] Brooklyn Chavez 12/31/2020 1 [place] [facility] Brooklyn Romeroers [id number] Brooklyn L Heatherers 04/26/2021 2 [place] [facility] Brooklyn Chavez [id number] Brooklyn Chavez 04/26/2021 1 [place] [facility] Brooklyn Romeroers [id number] Brooklyn Chavez 01/25/2022 1 [place] [facility] Brooklyn Romeroers [id number] Brooklyn Romeroers 01/25/2022 2 [place] [facility] Brooklyn Chavez [id number] Brooklyn Chavez Notes Date Note Type Note Provider Name and Address Organization Details Recorded Time 04/30/2020 text/html This is a 39-year-old female who [facility] but new to this provider, with a 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 She was seen Tuesday at [facility] for nausea vomiting and abdominal pain. She had a CAT scan at that time which she reports did not show any obstruction, diverticulitis or appendicitis. She also had blood work at that time which she reports did not show any abnormalities. Today she is being seen for flank pain and left lower quadrant abdominal pain. She reports intermittent nausea. She vomited 2 times last week, she denies any diarrhea. She has been eating and drinking okay. She denies chest pain, dizziness, headaches, fevers or shortness of breath. She denies any dysuria, frequency or urgency, she reports she has not been peeing as much as normal but urine does not appear dark. She had a virtual appointment with her GI Doctor yesterday who ordered lab work and a CDiff test because she was having diarrhea last week. She has not recently been on antibiotics. Tete Escalante, PEARL [address], [place], [address], [place] [facility] 04/30/2020 18:09:48 12/11/2020 text/html This is a 40-year-old female that is known to [facility] but new to this provider. She has a medical history significant for bechetts syndrome, Crohn's disease, gastroparesis and DVT for which she is anticoagulated. She was recently hospitalized at [facility] with complaints of low blood pressure and low heart rate. She was discharged home yesterday early afternoon. She contacted [facility] yesterday after getting home with complaints of nausea and dizziness, she required a secondary screening so she was ultimately not able to be seen as there was no provider available to screen her. She contacted [facility] again today with complaints of abdominal pain for the past 2 or 3 months, nausea and feeling dizzy and lightheaded. She reports that she has been taking the Phenergan that was prescribed for her for nausea but it is not helping. She says she is dizzy all of the time. She did have a thorough workup in the emergency department, she was able to give me her discharge paperwork. Her electrolytes and kidney function were within normal limits, she did have an abdominal CT and also an upper endoscopy, I do not have the report to review. I did try to review the patient's medical record in the [facility] system however her record is blocks due to lack of patient consent. The patient tells me that she had a a pyloric dilation completed by GI. She does have follow up with them in the fall. I did ask her if she contacted GI with her ongoing complaints and she said she called yesterday and is waiting for a call back. Patient was not able to meet me at the door today in late about her apartment without any difficulty. He did not appear at all on steady. I did notice she has shoes with lower leg braces by the front door which she was not wearing. I did obtain a set of orthostatic vital signs, when asked to stand for orthostatic vital sign she did appear to be a wobbly. 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 She was seen at the hospital recently for the same symptoms of abdominal pain. She reports continues to have same pain- does not radiate, not sharp, reports nausea, no vomitting, diarrhea or constipation. She had a CAT scan at that time which she reports did not show any obstruction, diverticulitis or appendicitis. She also had blood work at that time which she reports did not show any abnormalities. She denies chest pain, dizziness, headaches, fevers or shortness of breath. She denies urinary symptoms. She was reportedly admitted to [facility]- received IVF- came home with SOB- was admitted to [place] for diuresis. She has been home about 1 week. She was seen by GI who plans to start TPN, IV Benadryl and IV Zofran. Tete Escalante NP [address], [place], [address], [place] [facility] 01/02/2021 11:52:00 04/26/2021 text/html Brooklyn Brothers i s a 40 y/o F PMH Bechet's, crohn's, gastroparesis, common variable immune deficiency, malabsorption on TPN at , asthma, DVT/PE (Eliquis) who presents with request for assistance with antibiotics. Pt was seen yesterday in the emergency department, discharged early this morning for RLQ abd pain which radiates to suprapubic region, n/v/d. Pt had elevated white count and diagnosed with UTI. CT abd pelvis (non-contrasted) was without acute findings. Pt reports her nitrofurantoin was not available at the pharmacy today. ANDREWS HUNTLEY NP [address], [place], [address], [place] [facility] 04/26/2021 19:42:06 01/25/2022 text/html 41 year old laura le known to but new to provider with a history of DVT/PE on Eliquis, asthma, Bachets Dx, chronic gastroparesis with home TPN therapy via port, immune deficiency seen today for not feeling well after dx with UTI at [facility] late last night/early this am. Went to urgent care on Saturday 01/20 for abd pain, vomiting, bruising and headache. Eliquis has been on hold for 3-4 weeks as was supposed to do intrathecal pump but not scheduled as of now. Urgent care referred to hospital but she did not have childcare coverage. PCP called on Monday 01/22 again told her to go to to to ED but did not have childcare coverage. Went to [place] ER last night for headache, acute on chronic abd pain (she gets Q4 zofran and Benedry IV) LLQ abd pain, diffuse upper back pain that travels down spine and all her bones hurt. Vomiting has resolved, still on TPN nightly. No diarrhea. No fever or chills but does have some chills. No chance of not sexually active. Still having frontal headache; no blurred vision. Taking excedrin. In ED pain, nausea meds, B6 given. Urine dipped, UTI with first dose of macrobid and pyridium at approximately 2am (now 215pm). 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 Pt showed all lab and abd CT results with normal CBCD, CMP, EGFR > 60. Abn CT with no etiology for abd pain complaints. Mirlande Schmidt, PEARL [facility] [place], [address], [place] [facility] 02/03/2022 09:50:48 OBGyn Episode No OBEpisode recorded.
--- OUTSIDE RECORDS SUMMARY | 2024-09-05 14:00 | XMS_ITS | Patient Health Record ---
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
[2024-09-05] MEDS: HYDROmorphone HCl 2 MG TABLET 4 MG PO (14:51)
[2024-09-05] MEDS: Furosemide 40 MG/4 ML VIAL IVPUSH (16:49)
--- NOTE | 2024-09-05 16:49 | PM.IMHP ---
History of Present Illness Date of Service: 09/05/24 Attending physician on admission: Keri Self Chief Complaint: SOB Pt is a 44-year-old female with a PMH significant for?hx of DVT/PE on Eliquis, Crohn's disease on chronic TPN, Behcet's disease, hx of chylothorax, chronic SVC obstruction, and chronic pain syndrome who presents to the ED for evaluation of worsening SOB?and difficulty breathing since discharge from the hospital yesterday. Pt had a prolonged and complicated hospital stay from 08/20-09/04 where she was initially treated for abdominal pain secondary to norovirus, but hospital course was complicated when she became hypoxic and tested positive for flu and CT showed right lower lobe pneumonia with parapneumonic effusion and loculation suggestive of empyema. IR found fluid collection too small to drain, and pt was initially scheduled to undergo decortication though that was held after additional consideration. Pt underwent bronchoscopy with therapeutic cleansing, brushing, and washing by pulmonology with improvement. Pt underwent home O2 evaluation and was discharged on 3L NC as well as cefuroxime and doxycycline p.o.. Pt reports SOB, LAINEZ, and cough worsened after getting home but she initially attempted to see if she improved overnight. When symptoms worsened in the morning she decided to come back to the hospital for further evaluation. Some pleuritic chest pressure/tightness. Chills but no measured fever. Chronic diffuse abdominal pain around baseline. Continues to complain diarrhea 3 to 4 times a day. Nausea but no vomiting. In the ED pt was tachypneic up to 24, and soft BP of 120/56. Pt was initially found by EMS at 88% on home 3 L NC. Labs were significant for potassium 3.1, ALT 72, BNP 980, and still testing positive for influenza type A. No leukocytosis. Stable H&H. Renal function WNL. VBG pH 7.48, pCO2 38, and bicarb 28, similar to prior. CXR showed mild interstitial pulmonary edema, unchanged right basilar consolidation suggesting pneumonia, and loculated effusion in major fissure on right. EKG demonstrated normal sinus rhythm with nonspecific ST and T-wave abnormalities, similar to prior. Pt was treated in the ED with DuoNebs, Solu-Medrol, ondansetron, diphenhydramine, Tamiflu, hydromorphone, Lasix 40 mg IV, and ceftriaxone and azithromycin. Pt admitted to the hospital for treatment and further evaluation of acute on chronic hypoxic respiratory failure in the setting of pneumonia that failed outpatient therapy vs question of CHF. Review of Systems Review of Systems: Negative except for that which is stated in the [facility] Medical History Enterocutaneous fistula Pulmonary emboli Crohn's disease Chronic, continuous use of opioids Immunosuppression Absence seizure disorder DVT (deep venous thrombosis) Pyloric stenosis Asthma Common variable immunodeficiency Spondylolisthesis, lumbar region Spondylosis of lumbar region without myelopathy or radiculopathy Abdominal pain, chronic, generalized Gastroparesis Spontaneous pneumothorax Chronic pain syndrome Cervicalgia Low back pain Behcet's disease Family History Father Hairy cell leukemia Surgical History History of thoracotomy Hx of gastrostomy History of hernia surgery Social History Household Members: Children Household Members Other:: son Housing: House Do you presently have visiting nurse or other home services: No Unable to assess alcohol history related to: Unknown Alcohol intake: never Patient Tobacco Use Status: Never used Tobacco Second Hand Smoke Exposure: No Advance Directives Date on File: 04/22/23 service: No Current occupational status: unemployed Meds Allergies Allergy/AdvReac Type Severity Reaction Status Date / Time ciprofloxacin [Cipro] Allergy Unknown Hives Verified 09/05/24 10:38 levofloxacin [Levaquin] Allergy Unknown Hives Verified 09/05/24 10:38 metoclopramide [Reglan] Allergy Unknown Hives Verified 09/05/24 10:38 ondansetron [Zofran] Allergy Unknown Itching Verified 09/05/24 10:38 penicillin V Allergy Unknown Hives Verified 09/05/24 10:38 prochlorperazine Allergy Unknown Shortness Verified 09/05/24 10:38 [From Compazine] of Breath Sulfa (Sulfonamide Allergy Unknown Hives Verified 09/05/24 10:38 Antibiotics) thalidomide [From Thalomid] Allergy Unknown Rash Verified 09/05/24 10:38 haloperidol [From Haldol] Allergy Itching Verified 09/05/24 10:38 Active Medications: Current Medications Acetaminophen (Acetaminophen 325 Mg Tablet) 650 mg PO Q6H PRN PRN Reason: Pain, Mild 1-3,fever,headache Calcium Carbonate (Calcium Carbonate 750 Mg Tab.Chew) 750 mg PO Q4H PRN PRN Reason: Heartburn Magnesium Hydroxide (Milk Of Magnesia 30 Ml Oral.Susp) 30 ml PO DAILY PRN PRN Reason: Constipation Melatonin (Melatonin 3 Mg Tablet) 6 mg PO BEDTIME PRN PRN Reason: Insomnia Sodium Chloride (0.9 % Sodium Chloride Flush 3 Ml Syringe) [facility] Medications ?Medication ?Instructions ?Recorded ?Confirmed ?Last Taken ?Type fluticasone furoate 200 1 inh inhalation Q24H 12/12/20 09/05/24 09/04/24 History mcg-vilanterol 25 mcg/dose inhalation powder (Breo Ellipta) umeclidinium 62.5 mcg/actuation 1 inh inhalation DAILY 12/12/20 09/05/24 09/04/24 History blister powder for inhalation (Incruse Ellipta) diphenhydramine HCl 50 mg/mL 25 mg IV QID PRN Nausea 03/12/21 09/05/24 02/04/23 History injection solution ondansetron HCl (PF) 4 mg/2 mL 4 mg IV QID PRN Nausea 03/12/21 09/05/24 02/04/23 History injection solution promethazine 25 mg tablet 25 mg PO QID PRN Nausea And 08/18/21 09/05/24 02/04/23 History Vomiting levetiracetam 100 mg/mL oral 700 mg PO BID 08/20/24 09/05/24 09/04/24 History solution Physical Exam Vital Signs and Narrative: Vital Signs: Last Vital Signs Temp 98.4 F 09/05/24 10:43 Pulse 89 09/05/24 14:45 Resp 22 H 09/05/24 14:45 BP 120/61 09/05/24 14:45 Pulse Ox 94 09/05/24 14:45 O2 Del Method Nasal Cannula 09/05/24 14:45 O2 Flow Rate 3 09/05/24 14:45 BMI result Body Mass Index 30.0 General: AOx3, looks uncomfortable but in no acute distress. Resp: Diffuse expiratory rhonchi. CVS: S1, S2, RRR GI: +BS, NT, no distention Skin: Warm, dry Neuro: Cranial nerves II-XII grossly intact bilaterally. Motor grossly intact bilaterally Extremities: No edema Psych: Appropriate affect Results Labs 09/05/24 11:10 09/06/24 06:34 Labs: Laboratory Results - last 24 hr 09/05/24 09/05/24 09/05/24 10:57 11:10 11:15 MCV 89.0 MCH 29.2 MCHC 32.8 RDW 14.4 Plt Count 237 D MPV 11.2 Immature Gran % (Auto) 0.9 H Neut % (Auto) 76.3 H Lymph % (Auto) 15.0 L [place] % (Auto) 6.2 Eos % (Auto) 1.4 Baso % (Auto) 0.2 Lymph # (Auto) 1.0 L [place] # (Auto) 0.4 Eos # (Auto) 0.1 Baso # (Auto) 0.0 Abs Immat Gran (auto) 0.06 H Absolute Neuts (auto) 4.9 Absolute Nucleated RBC 0.000 Nucleated RBC % (auto) 0.0 VBG pH 7.48 H VBG pCO2 38 VBG pO2 44 VBG HCO3 28 H VBG O2 Saturation 78.0 VBG Base Excess 5.3 Anion Gap 12 Estim Creat Clear Calc 83.8 Estimated GFR > 60 Random Glucose 95 Lactic Acid Calcium 8.4 Total Bilirubin 0.6 AST 19 ALT 72 H Alkaline Phosphatase 44 B-Natriuretic Peptide 980 H Total Protein 5.8 L Albumin 3.6 Influenza Type A (PCR) POSITIVE A Influenza Type B (PCR) NEGATIVE RSV RNA Qual (PCR) NEGATIVE SARS-CoV-2 RNA (RT-PCR) NEGATIVE 09/05/24 13:29 MCV MCH MCHC RDW Plt Count MPV Immature Gran % (Auto) Neut % (Auto) Lymph % (Auto) [place] % (Auto) Eos % (Auto) Baso % (Auto) Lymph # (Auto) [place] # (Auto) Eos # (Auto) Baso # (Auto) Abs Immat Gran (auto) Absolute Neuts (auto) Absolute Nucleated RBC Nucleated RBC % (auto) VBG pH VBG pCO2 VBG pO2 VBG HCO3 VBG O2 Saturation VBG Base Excess Anion Gap Estim Creat Clear Calc Estimated GFR Random Glucose Lactic Acid 1.8 Calcium Total Bilirubin AST ALT Alkaline Phosphatase B-Natriuretic Peptide Total Protein Albumin Influenza Type A (PCR) Influenza Type B (PCR) RSV RNA Qual (PCR) SARS-CoV-2 RNA (RT-PCR) Imaging Radiologist's Impressions: Impressions Chest X-Ray 09/05/24 10:46 IMPRESSION: Mild interstitial pulmonary edema. Right basilar consolidative opacity suggestive of pneumonia, appearing unchanged. Loculated effusion in the major fissure on the right. Stable calcified pleural plaques. Mild cardiomegaly. Overall no significant interval change from 09/04/2024. Electronically signed by: Hay Patten MD 09/05/2024 11:35 AM EDT RP Assessment and Plan (1) Pulmonary edema: Status: Acute (2) Hypoxia: Status: Acute Plan Pt is a 44-year-old female with a PMH significant for?hx of DVT/PE on Eliquis, Crohn's disease on chronic TPN, Behcet's disease, hx of chylothorax, chronic SVC obstruction, and chronic pain syndrome who presents to the ED for evaluation of worsening SOB?and difficulty breathing since discharge from the hospital yesterday. Pt admitted to the hospital for treatment and further evaluation of acute on chronic hypoxic respiratory failure in the setting of pneumonia that failed outpatient therapy vs question of CHF. Acute hypoxic respiratory failure Pt desatting to 88% on home 3 L NC Discharged yesterday on O2, cefpodoxime, and doxycycline CXR showing mild interstitial pulmonary edema, right basilar consolidative opacity, and loculated effusion and major fissure on right Pt underwent bronchoscopy with therapeutic cleaning, brushing, and washing on 09/04/2024 Right lower lobe long cultures negative for growth Unclear etiology: Pneumonia that failed outpatient therapy vs CHF No sepsis: Tachypnea but no fever, tachycardia, or leukocytosis Pt is started on broad-spectrum antibiotics in the ED Will empirically treat with vancomycin and Zosyn for now, started 09/05/2024 Solu-Medrol, DuoNebs, guaifenesin Lasix 20 mg IV b.i.d. Pulmonology consult Titrate supplemental O2 >92 on 3L, wean as tolerated Elevated BNP BNP 980, elevated from 53 on 08/17/2021 CXR showing pulmonary edema Will get echocardiogram Lasix as above Consider cardiology consult depending on echo findings Hypokalemia Potassium 3.1 at time of presentation Will supplement with potassium IV Follow potassium Influenza type A positive Initially tested positive on 08/23/2024 Completed course of Tamiflu on 08/29 Continues to test positive for flu, no need for additional treatment Crohn's disease Pt has been on TPN for over 4 years, will continue Pt with TPN port Follow BMP, phos, mag Will place on D10 tonight and tomorrow while awaiting TPN order Hx of PE/DVT Continue Eliquis Seizure disorder Continue Keppra SVC obstruction, chronic Incidental finding on imaging during last admission Known to pt Chronic pain syndrome Continue home p.o. Dilaudid Full Code Attending:?Dr. Self DVT Prophylaxis: On Eliquis Pt will require a hospitalization of at least two nights for treatment of?acute on chronic hypoxic respiratory failure in the setting of pneumonia that failed outpatient therapy vs question of CHF. Given that pt has continue symptoms of SOB, LAINEZ, and hypoxia on recently prescribed home O2, they will require hospital level care for administration of empiric IV antibiotics and IV diuretics while closely monitoring labs, cardiac function, and respiratory status. Quality Stroke Does the patient have a stroke diagnosis?: No VTE Prior VTE?: No VTE Risk Level:: Medical - moderate - high VTE Device Contraindication: Treatment Not Indicated VTE Drug Contraindication: N/A - Med Ordered
--- NOTE | 2024-09-05 17:18 | PHA.MEDREC ---
Pharmacy Consult ? Medication Reconciliation Pharmacy has completed the medication reconciliation. Patient was just discharged from [facility] 09/04/24 utilized discharge packet to confirm med list. med rec not from last visit.... (Patient states she is on Eliquis 5 mg Bid , however there are no claims. Called [facility] and [facility] and they both confirmed, patient hasn't filled any Eliquis in 2 years. will continued medications and will contact patients PCP. Patient states she fills TPN , Benadryl, zofran and Promethazine IV through [facility] [phone]. Contacting [facility] to get TPN recipe.)
[2024-09-05] MEDS: Furosemide 20 MG/2 ML VIAL IVPUSH (18:31)
--- NOTE | 2024-09-05 19:03 | PC.NURSE ---
This RN assumed pt care @ 1900. Pt a&ox4, no signs of distress. Pt reports 9/10 pain in abd, chest, and back Pt medicated per mar Plan of care ongoing.
[2024-09-05] MEDS: Dextrose 10 % 1,000 ML 50 ML IVCONT (19:06)
[2024-09-05] MEDS: HYDROmorphone HCl 2 MG TABLET PO (19:31)
[2024-09-05] MEDS: Potassium Chloride/H20 10 MEQ/100 ML PIGGYBACK 100 MEQ IV ×2 (19:32→20:37)
[2024-09-05] MEDS: levETIRAcetam Oral Soln 500 MG/5 ML 700 MG PO (20:40)
[2024-09-05] MEDS: Apixaban 5 MG TABLET PO (20:42)
[2024-09-05] MEDS: Dicyclomine HCl 10 MG CAPSULE PO (20:42)
--- NOTE | 2024-09-05 20:55 | PC.NURSE ---
Pt medicated per [facility] Plan of care ongoing.
[2024-09-06] VITALS (7 sets, daily range): BP systolic 92–110; BP diastolic 47–72; PULSE 62–69; RESP 18–20; TEMP 36.1–37; O2SAT 89–100; BMI 28.5
[2024-09-06] MEDS: Promethazine HCL 25 MG TABLET PO (00:34)
[2024-09-06] MEDS: HYDROmorphone HCl 2 MG TABLET PO ×2 (05:47→14:54)
[2024-09-06] MEDS: ondansetron HCL 4 MG/2 ML VIAL IV ×3 (05:49→20:08)
[2024-09-06] MEDS: diphenhydrAMINE HCL 50 MG/ML VIAL 25 MG IV ×3 (05:49→20:08)
--- NOTE | 2024-09-06 07:00 | CA_ITS ---
Transthoracic Echocardiogram Patient (Last, First, Middle): Brooklyn Chavez L Gender: Female Date of : 1980 Age: 44 Procedure Date: 09/06/2024 Procedure Type: Transthoracic Echocardiogram [place] [facility] [place] Height: 152.4 cm Weight: 65.77 kg BSA: 1.63 m2 Heart Rate: 60 bpm BP: 98 / 47 mmHg Director Electronics: VIKAS Aparicio MD: Radha GONZÁLES Iron Miner: Duane Campos MD Symptoms: Elevated BNP, pulmonary edema, ?SVC syndrome Study Quality: Technically Difficult w/Contrast ECG Rhythm: Sinus Conclusions: - 1. Technically limited study despite use of contrast agent 2. Hyperdynamic LV ejection fraction greater than 70% 3. Cardiac valvular Dopplers within normal limits 4. Normal calculated right ventricular systolic pressure Findings Procedure Information Contrast agent, definity, is being given per protocol without apparent complications. Left Ventricle Normal left ventricular cavity size. There is normal left ventricular wall thickness. The left ventricular systolic function is hyperdynamic. The visually estimated ejection fraction is >70%. Spectral Doppler is indicative of a normal filling pattern. Right Ventricle The right ventricle was not well visualized. Atria The left atrium was not well visualized. Interatrial shunt cannot be excluded. The right atrium was not well visualized. Aortic Valve The aortic valve was not well visualized. There is no aortic valve stenosis. There is no aortic valve regurgitation. Mitral Valve The mitral valve was not well visualized. There is trace mitral valve regurgitation. There is no mitral valve stenosis. Pulmonic Valve The pulmonic valve was not well visualized. Tricuspid Valve The tricuspid valve was not well visualized. There is trace tricuspid valve regurgitation. The right ventricular systolic pressure is normal. The right ventricular systolic pressure is 19 mmHg. Normal right atrial pressure. There is no evidence of pulmonary hypertension. Great Vessels The aorta was not well visualized. The pulmonary artery was not well visualized. There is no dilatation of the ascending aorta measuring 2.50 cm. Venous The inferior vena cava is normal in size and collapses greater than 50% with inspiration. Pericardium/Pleural The pericardium was not well visualized. Prior Study Comparison LV systolic function he was noted to be hyperdynamic on this study Measurements 2D Linear Measurements IVSd: 0.84 0.6-0.9/0.6-1.0 cm LVIDd: 3.86 3.9-5.3/4.2-5.9 cm LVIDd Index: 2.37 2.4-3.2/2.2-3.1 cm/m2 LVIDs: 2.50 2.0-3.6 cm LVPWd: 0.92 0.7-1.1 cm LA Diam: 3.20 2.7-3.8/3.0-4.0 cm LAIDs Index: 1.96 1.5-2.3 cm/m2 LV Mass: 124.99 67-162/88-224 g LV Mass Index: 76.68 43-95/49-115 g/m2 LVOT Diam: 1.80 3.0+(-)1.3 cm 2D Systolic Function EF 4C: 73.80 >55% EF 2C: 67.70 >55% EF BiP: 71.50 >55% Mitral Valve MV Pk E: 0.73 MV PK A: 0.57 MV Decel Time: 296.00 E/A: 1.30 E'Lateral: 10.90 E'Medial: 10.10 E/E' Med: 7.20 E/E' Lat: 6.70 PHT: 87.00 MVA PHT: 2.53 Decel [place]: 2.46 Aortic Valve AoV Pk [place]: 1.14 AoV Mn [place]: 0.80 AoV VTI: 0.24 AoV Pk Grad: 5.00 Aov Mn Grad: 3.00 SCOUT Cont.VTI: 2.05 LVOT LVOT Pk [place]: 0.93 LVOT Mn [place]: 0.61 LVOT VTI: 0.19 LVOT Pk Grad: 3.00 LVOT Mn Grad: 2.00 LVOT Diam: 1.80 LVOT Area: 2.54 Diastolic Function MV Pk E: 0.73 MV Pk A: 0.57 E/A: 1.30 E'Medial: 10.10 E/E' Med: 7.20 E' Laterial: 10.90 E/E' Lat: 6.70 Right Ventricle TAPSE (mm): 21.70 TVS' [place]: 8.27 Tricuspid Valve TR Pk [place]: 2.02 TR Pk Grad: 16.00 RA Press: 3.00 RVSP: 19.00 Great Vessels Aorta Sinus of Valsalva: 2.90 2.0-3.5 cm Ao Asc: 2.50 2.1-3.4 cm Ao Arch: 2.00 Pulmonary Valve PV Pk [place]: 0.71 Peak PV Grad: 2.00 Updated in Other Vendor System with Status of Final Duane Campos MD electronically signed on 09/06/2024 3:46:32 PM with status of Final
[2024-09-06 07:23] LABS: Anion Gap 12 (12-20); Blood Urea Nitrogen 13 mg/dL (9-16); Calcium 8.3 mg/dL (8.4-10.2); Carbon Dioxide 29 mmol/L (22-29); Chloride 102 mmol/L (96-108); Creatinine Clr Calc Pharmacy 93.2; Estimated Glomerular Filt Rate > 60; Glucose Random 131 mg/dL (60-115); Magnesium 2.5 mg/dL (1.6-2.6); Phosphorus 3.8 mg/dL (2.7-4.5); Potassium 3.4 mmol/L (3.3-5.1); Sodium 140 mmol/L (135-145)
[2024-09-06] MEDS: Fluticasone/Vilanterol 200/25 BLST.W.DEV 1 PUFF INHALE (08:20)
[2024-09-06] MEDS: levETIRAcetam Oral Soln 500 MG/5 ML 700 MG PO ×2 (09:41→21:38)
[2024-09-06] MEDS: Furosemide 20 MG/2 ML VIAL IVPUSH (09:41)
[2024-09-06] MEDS: Apixaban 5 MG TABLET PO ×2 (09:42→21:38)
[2024-09-06] MEDS: 0.9 % Sodium Chloride Flush 3 ML SYRINGE IVFLUSH ×2 (09:42→16:37)
[2024-09-06] MEDS: Dicyclomine HCl 10 MG CAPSULE PO ×3 (09:42→21:38)
--- NOTE | 2024-09-06 10:20 | MHC.CLN ---
FAMILIAR WITH PT FROM PREVIOUS ADMISSION TO RE-START TPN-HAS TPN PORT REVIEWED LABS DISCUSSED WITH PHARMACY RECOMMEND RE-STARTING TPN AT 80ML/HR WITH 50G LIPIDS TO PROVIDE 1460 TOTAL KCALS (28KCALS/KG), 70G PROTEIN (1.3G/KG), 200G DEXTROSE REPLETE LYTES NEEDED SEE FULL CLINICAL NUTRITION ASSESSMENT
[2024-09-06 10:29] LABS: Procalcitonin 0.03 ng/mL
--- NOTE | 2024-09-06 12:17 | PM.CNPUL ---
History of Present Illness History of Present Illness Consult date: 09/06/24 Chief complaint: Acute on Chronic resp. failure Narrative: This is an inpatient pulmonary consultation. The patient is a 44-year-old female with a PMH significant for?hx of DVT/PE on Eliquis, Crohn's disease on chronic TPN, Behcet's disease, hx of chylothorax, chronic SVC obstruction, and chronic pain syndrome who presents to the ED for evaluation of worsening SOB?and difficulty breathing since discharge from the hospital yesterday. Pt had a prolonged and complicated hospital stay from 08/20-09/04 where she was initially treated for abdominal pain secondary to norovirus, but hospital course was complicated when she became hypoxic and tested positive for flu and CT showed right lower lobe pneumonia with parapneumonic effusion and loculation suggestive of empyema. IR found fluid collection too small to drain, and pt was initially scheduled to undergo decortication though that was held after additional consideration. Pt underwent bronchoscopy with therapeutic cleansing, brushing, and washing by pulmonology with improvement. Pt underwent home O2 evaluation and was discharged on 3L NC as well as cefuroxime and doxycycline p.o.. Pt reports SOB, LAINEZ, and cough worsened after getting home but she initially attempted to see if she improved overnight. When symptoms worsened in the morning she decided to come back to the hospital for further evaluation. Some pleuritic chest pressure/tightness. Chills but no measured fever. In the ED, he CXR, personally reviewed by me, showed mild interstitial pulmonary edema, unchanged right basilar consolidation suggesting pneumonia, and loculated effusion in major fissure on right. Lasix 40 mg IV, and ceftriaxone and azithromycin. Pt admitted to the hospital for treatment and further evaluation of acute on chronic hypoxic respiratory failure in the setting of pneumonia that failed outpatient therapy vs question of CHF. Currently the patient feels a little better. She is on the oxygen. She is still having congestion difficult for her to clear his own secretions. Review of Systems Constitutional: Constitutional: Reports body ache(s) ENT: Denies hoarseness Cardiovascular: Cardiovascular: Denies palpitations Respiratory: Respiratory: Reports chest congestion, Reports cough, Reports excessive phlegm production and Denies wheezing Gastrointestinal: Gastrointestinal: Reports as per HPI Musculoskeletal: Musculoskeletal: Reports myalgias Endocrine: Endocrine: Denies palpitations Allergic/Immunologic: Allergic/Immunologic: Denies wheezing PMFSH Past Medical History Medical History Enterocutaneous fistula Pulmonary emboli Crohn's disease Chronic, continuous use of opioids Immunosuppression Absence seizure disorder DVT (deep venous thrombosis) Pyloric stenosis Asthma Common variable immunodeficiency Spondylolisthesis, lumbar region Spondylosis of lumbar region without myelopathy or radiculopathy Abdominal pain, chronic, generalized Gastroparesis Spontaneous pneumothorax Chronic pain syndrome Cervicalgia Low back pain Behcet's disease Family History Family History Father Hairy cell leukemia Surgical History Surgical History History of thoracotomy Hx of gastrostomy History of hernia surgery Social History Social History Household Members: Children Household Members Other:: son Housing: House Do you presently have visiting nurse or other home services: No Unable to assess alcohol history related to: Unknown Alcohol intake: never Patient Tobacco Use Status: Never used Tobacco Smoked in Last 30 Days: No Second Hand Smoke Exposure: No Use of substances other than those prescribed or required for medical reasons: No Currently Displaying Signs/Symptoms of Drug Intoxication Withdrawal: No Have you been hit, kicked, punched, or otherwise hurt by someone within the past year? If so, by whom?: No Do you feel safe in your current relationship?: Yes Is there a partner from a previous relationship who is making you feel unsafe now?: No Are you made to feel afraid or neglected: No Advance Directives: Yes Advance Directives on File: Yes Advance Directives Date on File: 04/22/23 Do you have a plan to hurt others: No Plan Recently lost weight without trying: Unsure How much weight loss: Unsure Eating poorly because of decreased appetite: Yes Nutrition screen score: 5 Nutrition Risks: Gastrointestinal Malabsorption Patient : No : No Poor oral hygiene: No service: No Current occupational status: unemployed Meds Allergies Allergy/AdvReac Type Severity Reaction Status Date / Time ciprofloxacin [Cipro] Allergy Unknown Hives Verified 09/05/24 10:38 levofloxacin [Levaquin] Allergy Unknown Hives Verified 09/05/24 10:38 metoclopramide [Reglan] Allergy Unknown Hives Verified 09/05/24 10:38 ondansetron [Zofran] Allergy Unknown Itching Verified 09/05/24 10:38 penicillin V Allergy Unknown Hives Verified 09/05/24 10:38 prochlorperazine Allergy Unknown Shortness Verified 09/05/24 10:38 [From Compazine] of Breath Sulfa (Sulfonamide Allergy Unknown Hives Verified 09/05/24 10:38 Antibiotics) thalidomide [From Thalomid] Allergy Unknown Rash Verified 09/05/24 10:38 haloperidol [From Haldol] Allergy Itching Verified 09/05/24 10:38 Active Medications: Current Medications Acetaminophen (Acetaminophen 325 Mg Tablet) 650 mg PO Q6H PRN PRN Reason: Pain, Mild 1-3,fever,headache Apixaban (Apixaban 5 Mg Tablet) 5 mg PO BID [facility] Last Admin: 09/06/24 09:42 Dose: 5 mg Calcium Carbonate (Calcium Carbonate 750 Mg Tab.Chew) 750 mg PO Q4H PRN PRN Reason: Heartburn Dicyclomine HCl (Dicyclomine Hcl 10 Mg Capsule) 10 mg PO QIDACHS [facility] Last Admin: 09/06/24 09:42 Dose: 10 mg Diphenhydramine HCl (Diphenhydramine Hcl 50 Mg/Ml Vial) 25 mg IV QID PRN PRN Reason: Nausea Last Admin: 09/06/24 05:49 Dose: 25 mg Fluticasone/Vilanterol (Fluticasone/Vilanterol 200/25 Blst.W.Dev) 1 puff INHALE RDAILY [facility] Last Admin: 09/06/24 08:20 Dose: 1 puff Furosemide (Furosemide 20 Mg/2 Ml Vial) 20 mg IVPUSH BID@0900,1800 [facility]; Protocol Last Admin: 09/06/24 09:41 Dose: 20 mg Hydromorphone HCl (Hydromorphone Hcl 2 Mg Tablet) 2 mg PO BID PRN PRN Reason: Pain, Severe (Pain Scale 7-10) Last Admin: 09/06/24 05:47 Dose: 2 mg Nutrition (Parenteral) (Parenteral Nutrition) 1,920 mls @ 80 mls/hr IV .Q24H [facility]; Protocol Stop: 09/07/24 20:59 Levetiracetam (Levetiracetam Oral Soln 500 Mg/5 Ml) 700 mg PO BID [facility] Last Admin: 09/06/24 09:41 Dose: 700 mg Magnesium Hydroxide (Milk Of Magnesia 30 Ml Oral.Susp) 30 ml PO DAILY PRN PRN Reason: Constipation Melatonin (Melatonin 3 Mg Tablet) 6 mg PO BEDTIME PRN PRN Reason: Insomnia Naloxone HCl (Naloxone Hcl Nasal 4 Mg [place]) 4 mg NOSTRILALT Q2M PRN PRN Reason: opioid overdose Ondansetron HCl (Ondansetron Hcl 4 Mg/2 Ml Vial) 4 mg IV QID PRN PRN Reason: Nausea Last Admin: 09/06/24 05:49 Dose: 4 mg Pharmacy Consult (Consult Rx Parenteral Nutrition Ordering) 1 each MISCELLANE DAILY PRN PRN Reason: Consult order Promethazine HCl (Promethazine Hcl 25 Mg Tablet) 25 mg PO QID PRN PRN Reason: Nausea And Vomiting Last Admin: 09/06/24 00:34 Dose: 25 mg Sodium Chloride (0.9 % Sodium Chloride Flush 3 Ml Syringe) 3 ml IVFSH [facility] Last Admin: 09/06/24 09:42 Dose: 3 ml Home Medications ?Medication ?Instructions ?Recorded ?Confirmed ?Last Taken ?Type fluticasone furoate 200 1 inh inhalation Q24H 12/12/20 09/05/24 09/04/24 History mcg-vilanterol 25 mcg/dose inhalation powder (Breo Ellipta) umeclidinium 62.5 mcg/actuation 1 inh inhalation DAILY 12/12/20 09/05/24 09/04/24 History blister powder for inhalation (Incruse Ellipta) diphenhydramine HCl 50 mg/mL 25 mg IV QID PRN Nausea 03/12/21 09/05/24 02/04/23 History injection solution ondansetron HCl (PF) 4 mg/2 mL 4 mg IV QID PRN Nausea 03/12/21 09/05/24 02/04/23 History injection solution promethazine 25 mg tablet 25 mg PO QID PRN Nausea And 08/18/21 09/05/24 02/04/23 History Vomiting levetiracetam 100 mg/mL oral 700 mg PO BID 08/20/24 09/05/24 09/04/24 History solution Physical Exam Vital Signs: Vital Signs: Last Vital Signs Temp 97.9 F 09/06/24 07:39 Pulse 62 09/06/24 08:21 Resp 20 09/06/24 08:21 BP 98/47 L 09/06/24 07:39 Pulse Ox 100 09/06/24 07:39 O2 Del Method Nasal Cannula 09/06/24 07:39 O2 Flow Rate 2.5 09/06/24 07:39 Oxygen Flow Rate 3 09/05/24 12:00 BMI result Body Mass Index 28.5 Const: General: alert, awake and tired appearing Eyes: Sclerae: sclerae normal EOM: EOMs intact bilaterally Neck: Neck: Yes no lymphadenopathy, Yes trachea midline and Yes supple Chest: Chest palpation & inspection: normal inspection of the chest Resp: Effort & Inspection: normal respiratory effort Auscultation: crackles, rhonchi and diminished lung sounds Cardio: Rate: regular rate Rhythm: regular rhythm Heart sounds: no gallops, no murmurs and no rubs GI: Palpation (GI): Soft to palpation and Other GI palpation findings present ( Nontender) Auscultation: normal bowel sounds Extrem: General: Yes no pedal edema, No clubbing and No cyanosis Results Laboratory Findings 09/05/24 11:10 09/06/24 06:34 Abnormal lab findings: Abnormal Labs 09/05/24 09/05/24 09/05/24 10:57 11:10 11:15 RBC 3.73 L Hgb 10.9 L Hct 33.2 L Immature Gran % (Auto) 0.9 H Neut % (Auto) 76.3 H Lymph % (Auto) 15.0 L Lymph # (Auto) 1.0 L Abs Immat Gran (auto) 0.06 H VBG pH 7.48 H VBG HCO3 28 H Potassium 3.1 L Chloride 109 H BUN 18 H Random Glucose Calcium ALT 72 H B-Natriuretic Peptide 980 H Total Protein 5.8 L Influenza Type A (PCR) POSITIVE A 09/06/24 06:34 RBC Hgb Hct Immature Gran % (Auto) Neut % (Auto) Lymph % (Auto) Lymph # (Auto) Abs Immat Gran (auto) VBG pH VBG HCO3 Potassium Chloride BUN Random Glucose 131 H Calcium 8.3 L ALT B-Natriuretic Peptide Total Protein Influenza Type A (PCR) Assessment and Plan (1) Pulmonary edema: Qualifiers: Chronicity: acute Qualified Code(s): J81.0 - Acute pulmonary edema Status: Acute (2) Hypoxia: Status: Acute (3) Pleural effusion: Status: Acute (4) Pneumonia: Qualifiers: Pneumonia type: due to unspecified organism Laterality: unspecified laterality Lung location: unspecified part of lung Qualified Code(s): J18.9 - Pneumonia, unspecified organism Status: Acute Plan CPT ideally with a percussion vest although we do not have 1 available here. Therefore would have using a [employer] or manual chest PT Diuresis as tolerated Titrate oxygen to maintain a pulse ox above 92%. She will need another testing as she may need oxygen upon discharge Continue emperic antibiotic regimen. Bronchoscopy results were negative for any organisms Will go ahead and place her on a small dose of Solu-Medrol as she does have significant connective tissue conditions inflammatory disorders. Repeat chest x-ray tomorrow Procedures Date of Service Date of Service: 09/06/24
--- NOTE | 2024-09-06 13:47 | MHC.CM.PN ---
IMM 09/06/24, EMR REVIEWED, PT ADMITTED W/ACUTE ON CHRONIC RESP FAILURE, SOB AND FLU A+, PT D/C'D HOME ON 08/04, PT REPORTS SHE HAD SOB AND DIFFICULTY BREATHING AND CAME BACK TO ED. PT'S ADULT SON LIVES W/HER, PT AMBULATES INDEPENDENTLY MOST OF THE TIME, DOES HAVE A W/C SHE USES WHEN FATIGUED, PT HAS [facility] FOR HOME O2, [facility] FOR CHRONIC TPN, NEW AT DC ON 08/04 [facility] FOR [facility] (APPROVED FOR 14HRS AND ARRANGING FOR SON TO BE PT'S PCP) AND GOES TO [facility] FOR PORTACATH DRESSING CHANGES. PT'S GOAL FOR DC IS TO RETURN HOME W/SERVICES IN PLACE. PCP/HCP ON FILE VERIFIED. PER [facility]IA[facility] THEY WILL NEED THE FOLLOWING DOCUMENTS FOR RESUMPTION OF TPN: LABS: CBCD, CMP, TIG, PHOS AND MAG GRAPHICS PROGRAMMER NOTE MOST RECENT MD NOTE.
[2024-09-06] MEDS: methylPREDNISolone Sod Succ 40 MG/ML VIAL IVPUSH (14:54)
--- NOTE | 2024-09-06 15:32 | P.PNIM_ITS ---
Subjective Subjective Date of Service: 09/06/24 Interval History: c/o shortness of breath difficulty coughing up secretions Review of Systems Review of Systems: Yes all other systems are reviewed and are negative Physical Exam 2 Vital Signs: Vital Signs: Last Vital Signs Temp 98.6 F 09/06/24 12:00 Pulse 67 09/06/24 12:00 Resp 20 09/06/24 12:00 BP 94/54 L 09/06/24 12:00 Pulse Ox 99 09/06/24 12:00 O2 Del Method Nasal Cannula 09/06/24 12:00 O2 Flow Rate 2 09/06/24 12:00 Oxygen Flow Rate 3 09/05/24 12:00 BMI result Body Mass Index 28.5 Gen: in no acute distress HEENT: sclera anicteric, moist mucus membranes Neck: supple, Portacath subclavian Lungs: diminished R base Heart: regular rate and rhythm, no murmurs Abd: soft, non-tender, non-distended Ext: no edema Skin: warm/well-perfused Neuro: alert and oriented x3, no focal findings Psych: appropriate affect Objective Data Active Medications Acetaminophen (Acetaminophen 325 Mg Tablet) 650 mg PO Q6H PRN PRN Reason: Pain, Mild 1-3,fever,headache Apixaban (Apixaban 5 Mg Tablet) 5 mg PO BID [facility] Last Admin: 09/06/24 09:42 Dose: 5 mg Documented By: ELOISE Calcium Carbonate (Calcium Carbonate 750 Mg Tab.Chew) 750 mg PO Q4H PRN PRN Reason: Heartburn Dicyclomine HCl (Dicyclomine Hcl 10 Mg Capsule) 10 mg PO QIDACHS [facility] Last Admin: 09/06/24 14:54 Dose: 10 mg Documented By: ELOISE Diphenhydramine HCl (Diphenhydramine Hcl 50 Mg/Ml Vial) 25 mg IV QID PRN PRN Reason: Nausea Last Admin: 09/06/24 13:44 Dose: 25 mg Documented By: PRECIOUS Fluticasone/Vilanterol (Fluticasone/Vilanterol 200/25 Blst.W.Dev) 1 puff INHALE RDAILY [facility] Last Admin: 09/06/24 08:20 Dose: 1 puff Documented By: BETTY Furosemide (Furosemide 20 Mg/2 Ml Vial) 20 mg IVPUSH BID@0900,1800 [facility]; Protocol Last Admin: 09/06/24 09:41 Dose: 20 mg Documented By: ELOISE Hydromorphone HCl (Hydromorphone Hcl 2 Mg Tablet) 4 mg PO BID PRN PRN Reason: Pain, Severe (Pain Scale 7-10) Nutrition (Parenteral) (Parenteral Nutrition) 1,920 mls @ 80 mls/hr IV .Q24H [facility]; Protocol Stop: 09/07/24 20:59 Levetiracetam (Levetiracetam Oral Soln 500 Mg/5 Ml) 700 mg PO BID [facility] Last Admin: 09/06/24 09:41 Dose: 700 mg Documented By: ELOISE Magnesium Hydroxide (Milk Of Magnesia 30 Ml Oral.Susp) 30 ml PO DAILY PRN PRN Reason: Constipation Melatonin (Melatonin 3 Mg Tablet) 6 mg PO BEDTIME PRN PRN Reason: Insomnia Methylprednisolone Sodium Succinate (Methylprednisolone Sod Succ 40 Mg/Ml Vial) 40 mg IVPUSH Q12H [facility] Last Admin: 09/06/24 14:54 Dose: 40 mg Documented By: ELOISE Naloxone HCl (Naloxone Hcl Nasal 4 Mg [place]) 4 mg NOSTRILALT Q2M PRN PRN Reason: opioid overdose Ondansetron HCl (Ondansetron Hcl 4 Mg/2 Ml Vial) 4 mg IV QID PRN PRN Reason: Nausea Last Admin: 09/06/24 13:44 Dose: 4 mg Documented By: PRECIOUS Pharmacy Consult (Consult Rx Parenteral Nutrition Ordering) 1 each MISCELLANE DAILY PRN PRN Reason: Consult order Promethazine HCl (Promethazine Hcl 25 Mg Tablet) 25 mg PO QID PRN PRN Reason: Nausea And Vomiting Last Admin: 09/06/24 00:34 Dose: 25 mg Documented By: CIRILO Sodium Chloride (0.9 % Sodium Chloride Flush 3 Ml Syringe) 3 ml IVFLUSH QSHIFT [facility] Last Admin: 09/06/24 09:42 Dose: 3 ml Documented By: ELOISE Labs 09/05/24 11:10 09/06/24 06:34 Labs: Laboratory Results - last 24 hr 09/06/24 06:34 Anion Gap 12 Estim Creat Clear Calc 93.2 Estimated GFR > 60 Random Glucose 131 H Calcium 8.3 L Phosphorus 3.8 Magnesium 2.5 Procalcitonin 0.03 Assessment and Plan (1) Pneumonia: Status: Acute (2) Pleural effusion: Status: Acute Plan d2 for 44yo F with hx DVT/PE on apixaban, Crohn's disease on chronic TPN, Behcet's disease, hx chylothorax, chronic SVC obstruction and chronic pain syndrome; recent admission 08/20-09/04 initially for norovirus but then developed hypoxia from flu complicated by RLL with parapneumonic effusion and loculation worrisome for empyema. Collection to small to drain by IR and was to undergo decortication but repeat imaging showed improvement, so this was not done. Pt went therapeutic/diagnostic bronchoscopy and was discharged home on 3L O2 and cefuroxime + doxycycline. Presented the day after discharge with worsening cough and dyspnea. acute hypoxic respiratory failure pneumonia/parapneumomic effusion - due to effects of pneumonia vs. possible CHF- diuresing with IV furosemide and checking TTE. Continue ceftriaxone and doxycycline. Pulmonology consulted, started methylprednisolone 40 mg IV q12h 09/06. Cultures from bronchoscopy negative. CPT/Aerobika to help mobilize secretions hypoK - repleted influenza A - completed oseltamivir 08/24-08/29 Crohn's disease - on TPN for past 4 yr hx PE/DVT - continue apixaban seizure disorder - continue levetiracetam SVC obstruction - chronic chronic pain - continue hydromorphone VTE ppx - apixaban dispo - TBD In my clinical judgment, the patient requires continued inpatient hospitalization for the following reasons: hypoxia Total time managing care of this patient today: 35 minutes. Quality Stroke Does the patient have a stroke diagnosis?: No VTE Prior VTE?: No VTE Risk Level:: Medical - moderate - high VTE Device Contraindication: Treatment Not Indicated VTE Drug Contraindication: N/A - Med Ordered
[2024-09-06] MEDS: cefTRIAXone sodium 1 GM VIAL IVPUSH (16:36)
[2024-09-06] MEDS: Doxycycline Monohydrate 100 MG CAPSULE PO (16:36)
[2024-09-06] MEDS: Parenteral Nutrition 1,920 ML 80 ML IV (21:38)
[2024-09-07] VITALS (9 sets, daily range): BP systolic 91–109; BP diastolic 50–64; PULSE 52–79; RESP 18; TEMP 35.9–36.9; O2SAT 93–100
[2024-09-07] MEDS: methylPREDNISolone Sod Succ 40 MG/ML VIAL IVPUSH ×2 (01:20→13:42)
[2024-09-07] MEDS: 0.9 % Sodium Chloride Flush 3 ML SYRINGE IVFLUSH ×3 (01:20→16:09)
[2024-09-07] MEDS: HYDROmorphone HCl 2 MG TABLET 4 MG PO ×2 (01:22→09:51)
[2024-09-07] MEDS: ondansetron HCL 4 MG/2 ML VIAL IV ×4 (03:35→22:07)
[2024-09-07] MEDS: diphenhydrAMINE HCL 50 MG/ML VIAL 25 MG IV ×4 (03:35→22:07)
[2024-09-07] MEDS: Doxycycline Monohydrate 100 MG CAPSULE PO ×2 (05:08→16:17)
[2024-09-07 07:08] LABS: Albumin Level 3.6 g/dL (3.5-5.0); Anion Gap 11 (12-20); Blood Urea Nitrogen 17 mg/dL (9-16); Calcium 8.9 mg/dL (8.4-10.2); Carbon Dioxide 31 mmol/L (22-29); Chloride 102 mmol/L (96-108); Creatinine Clr Calc Pharmacy 93.2; Estimated Glomerular Filt Rate > 60; Glucose Random 191 mg/dL (60-115); Magnesium 2.5 mg/dL (1.6-2.6); Phosphorus 2.6 mg/dL (2.7-4.5); Sodium 140 mmol/L (135-145)
[2024-09-07] MEDS: Fluticasone/Vilanterol 200/25 BLST.W.DEV 1 PUFF INHALE (07:34)
[2024-09-07 08:31] LABS: B Type Natriuretic Peptide 103 pg/mL (<100)
[2024-09-07] MEDS: levETIRAcetam Oral Soln 500 MG/5 ML 700 MG PO ×2 (09:31→22:07)
[2024-09-07] MEDS: Apixaban 5 MG TABLET PO ×2 (09:32→22:08)
[2024-09-07] MEDS: Dicyclomine HCl 10 MG CAPSULE PO ×3 (09:32→22:08)
[2024-09-07] MEDS: Furosemide 20 MG/2 ML VIAL IVPUSH (09:33)
--- NOTE | 2024-09-07 10:29 | MHC.CLN ---
F/U F/L DIET IN PLACE REVIEWED LABS DISCUSSED WITH PHARMACY RECOMMEND TPN AT 80ML/HR PROVIDES 960 KCALS, 70G PROTEIN (1.3G/KG), 200G DEXTROSE HOLDING LIPIDS TODAY-WILL RE-START TOMORROW ACCORDING TO PLAN REPLETE LYTES NEEDED
--- NOTE | 2024-09-07 11:38 | HO.PM.IMPN ---
Subjective Subjective Date of Service: 09/07/24 Interval History: breathing + cough improved Review of Systems Review of Systems: Yes all other systems are reviewed and are negative Physical Exam Vital Signs: Vital Signs: Last Vital Signs Temp 97.4 F 09/07/24 08:00 Pulse 64 09/07/24 08:44 Resp 18 09/07/24 08:00 BP 96/50 L 09/07/24 08:44 Pulse Ox 96 09/07/24 08:44 O2 Del Method Room Air 09/07/24 08:00 O2 Flow Rate 4 09/07/24 03:55 Oxygen Flow Rate 3 09/05/24 12:00 BMI result Body Mass Index 28.5 Gen: in no acute distress HEENT: sclera anicteric, moist mucus membranes Neck: supple, Portacath R subclavian Lungs: diminished R base Heart: regular rate and rhythm, no murmurs Abd: soft, non-tender, non-distended Ext: no edema Skin: warm/well-perfused Neuro: alert and oriented x3, no focal findings Psych: appropriate affect Objective Data Active Medications Acetaminophen (Acetaminophen 325 Mg Tablet) 650 mg PO Q6H PRN PRN Reason: Pain, Mild 1-3,fever,headache Apixaban (Apixaban 5 Mg Tablet) 5 mg PO BID [facility] Last Admin: 09/07/24 09:32 Dose: 5 mg Documented By: ELOISE Calcium Carbonate (Calcium Carbonate 750 Mg Tab.Chew) 750 mg PO Q4H PRN PRN Reason: Heartburn Ceftriaxone Sodium (Ceftriaxone Sodium 1 Gm Vial) 1 gm IVPUSH Q24H [facility] Last Admin: 09/06/24 16:36 Dose: 1 gm Documented By: JERRICA Dicyclomine HCl (Dicyclomine Hcl 10 Mg Capsule) 10 mg PO QIDACHS [facility] Last Admin: 09/07/24 09:32 Dose: 10 mg Documented By: ELOISE Diphenhydramine HCl (Diphenhydramine Hcl 50 Mg/Ml Vial) 25 mg IV QID PRN PRN Reason: Nausea Last Admin: 09/07/24 09:37 Dose: 25 mg Documented By: ELOISE Doxycycline Monohydrate (Doxycycline Monohydrate 100 Mg Capsule) 100 mg PO Q12H [facility] Last Admin: 09/07/24 05:08 Dose: 100 mg Documented By: CIRILO Fluticasone/Vilanterol (Fluticasone/Vilanterol 200/25 Blst.W.Dev) 1 puff INHALE RDAILY [facility] Last Admin: 09/07/24 07:34 Dose: 1 puff Documented By: PAOLA Furosemide (Furosemide 20 Mg/2 Ml Vial) 20 mg IVPUSH BID@0900,1800 [facility]; Protocol Last Admin: 09/07/24 09:33 Dose: 20 mg Documented By: ELOISE Hydromorphone HCl (Hydromorphone Hcl 2 Mg Tablet) 4 mg PO BID PRN PRN Reason: Pain, Severe (Pain Scale 7-10) Last Admin: 09/07/24 09:51 Dose: 4 mg Documented By: ELOISE Nutrition (Parenteral) (Parenteral Nutrition) 1,920 mls @ 80 mls/hr IV .Q24H [facility]; Protocol Stop: 09/07/24 20:59 Last Admin: 09/06/24 21:38 Dose: 80 mls/hr Documented By: MARA Nutrition (Parenteral) (Parenteral Nutrition) 1,920 mls @ 80 mls/hr IV .Q24H [facility]; Protocol Stop: 09/08/24 20:59 Levetiracetam (Levetiracetam Oral Soln 500 Mg/5 Ml) 700 mg PO BID [facility] Last Admin: 09/07/24 09:31 Dose: 700 mg Documented By: ELOISE Magnesium Hydroxide (Milk Of Magnesia 30 Ml Oral.Susp) 30 ml PO DAILY PRN PRN Reason: Constipation Melatonin (Melatonin 3 Mg Tablet) 6 mg PO BEDTIME PRN PRN Reason: Insomnia Methylprednisolone Sodium Succinate (Methylprednisolone Sod Succ 40 Mg/Ml Vial) 40 mg IVPUSH Q12H [facility] Last Admin: 09/07/24 01:20 Dose: 40 mg Documented By: CIRILO Naloxone HCl (Naloxone Hcl Nasal 4 Mg [place]) 4 mg NOSTRILALT Q2M PRN PRN Reason: opioid overdose Ondansetron HCl (Ondansetron Hcl 4 Mg/2 Ml Vial) 4 mg IV QID PRN PRN Reason: Nausea Last Admin: 09/07/24 09:37 Dose: 4 mg Documented By: ELOISE Pharmacy Consult (Consult Rx Parenteral Nutrition Ordering) 1 each MISCELLANE DAILY PRN PRN Reason: Consult order Promethazine HCl (Promethazine Hcl 25 Mg Tablet) 25 mg PO QID PRN PRN Reason: Nausea And Vomiting Last Admin: 09/06/24 00:34 Dose: 25 mg Documented By: CIRILO Sodium Chloride (0.9 % Sodium Chloride Flush 3 Ml Syringe) 3 ml IVFLUSH QSHIFT [facility] Last Admin: 09/07/24 09:32 Dose: 3 ml Documented By: ELOISE Labs 09/05/24 11:10 09/07/24 06:14 Labs: Laboratory Results - last 24 hr 09/07/24 06:14 Hold Purple Top SEE NOTE Anion Gap 11 L Estim Creat Clear Calc 93.2 Estimated GFR > 60 Random Glucose 191 H Calcium 8.9 D Phosphorus 2.6 L Magnesium 2.5 B-Natriuretic Peptide 103 H Albumin 3.6 Microbiology Microbiology Results: Microbiology 09/05/24 13:25 Blood Culture - Preliminary Blood - Venous No growth after 24 hours. 09/05/24 13:29 Blood Culture - Preliminary Blood - Venous No growth after 24 hours. Assessment and Plan (1) Pneumonia: Status: Acute (2) Pleural effusion: Status: Acute Plan d3 for 44yo F with hx DVT/PE on apixaban, Crohn's disease on chronic TPN, Behcet's disease, hx chylothorax, chronic SVC obstruction and chronic pain syndrome; recent admission 08/20-09/04 initially for norovirus but then developed hypoxia from flu complicated by RLL with parapneumonic effusion and loculation worrisome for empyema. Collection to small to drain by IR and was to undergo decortication but repeat imaging showed improvement, so this was not done. Pt went therapeutic/diagnostic bronchoscopy and was discharged home on 3L O2 and cefuroxime + doxycycline. Presented the day after discharge with worsening cough and dyspnea. acute hypoxic respiratory failure pneumonia/parapneumomic effusion - due to effects of pneumonia vs possible fluid overload. TTE essentially normal other than hyperdynamic LV. Stop furosemide [negative 705 mL fluid balance]. Continue ceftriaxone and doxycycline. Pulmonology consulted, started methylprednisolone 40 mg IV q12h 09/06. Cultures from bronchoscopy negative. CPT/Aerobika to help mobilize secretions. PRN nebs. - TTE 09/06: 1. Technically limited study despite use of contrast agent 2. Hyperdynamic LV ejection fraction greater than 70% 3. Cardiac valvular Dopplers within normal limits 4. Normal calculated right ventricular systolic pressure hypoK - repleted influenza A - completed oseltamivir 08/24-08/29 Crohn's disease - on TPN for past 4 yr hx PE/DVT - continue apixaban seizure disorder - continue levetiracetam SVC obstruction - chronic chronic pain - continue hydromorphone VTE ppx - apixaban dispo - plan home with resumption of VNA services In my clinical judgment, the patient requires continued inpatient hospitalization for the following reasons: hypoxia, IV antibiotics/steroids Total time managing care of this patient today: 35 minutes. Quality Stroke Does the patient have a stroke diagnosis?: No VTE Prior VTE?: No VTE Risk Level:: Medical - moderate - high VTE Device Contraindication: Treatment Not Indicated VTE Drug Contraindication: N/A - Med Ordered
[2024-09-07] MEDS: cefTRIAXone sodium 1 GM VIAL IVPUSH (16:10)
--- NOTE | 2024-09-07 16:35 | MHC.CM.PN ---
Per MD rounds DC planned for tomorrow. Patient TPN supply in home. Labs + clinical info sent to [facility]. The patients formula in the home is significantly different from the TPN she is receiving now. [facility] is not able to make the formula for this weekend. They will be able to make the formula for Tuesday. DC is on hold until [facility] can delivery TPN on Tuesday.
[2024-09-07] MEDS: Parenteral Nutrition 1,920 ML 80 ML IV (22:09)
[2024-09-08] VITALS (10 sets, daily range): BP systolic 109–130; BP diastolic 56–74; PULSE 69–84; RESP 16–20; TEMP 36.4–37; O2SAT 92–97
[2024-09-08] MEDS: HYDROmorphone HCl 2 MG TABLET 4 MG PO ×2 (00:06→11:26)
[2024-09-08] MEDS: methylPREDNISolone Sod Succ 40 MG/ML VIAL IVPUSH ×2 (00:07→11:27)
[2024-09-08] MEDS: 0.9 % Sodium Chloride Flush 3 ML SYRINGE IVFLUSH ×3 (00:08→22:08)
[2024-09-08] MEDS: diphenhydrAMINE HCL 50 MG/ML VIAL 25 MG IV ×4 (03:58→22:02)
[2024-09-08] MEDS: ondansetron HCL 4 MG/2 ML VIAL IV ×4 (03:58→22:02)
[2024-09-08] MEDS: Doxycycline Monohydrate 100 MG CAPSULE PO ×2 (05:05→16:12)
[2024-09-08] MEDS: Fluticasone/Vilanterol 200/25 BLST.W.DEV 1 PUFF INHALE (07:54)
[2024-09-08 08:08] LABS: B Type Natriuretic Peptide 89 pg/mL (<100)
[2024-09-08 08:17] LABS: Albumin Level 3.8 g/dL (3.5-5.0); Anion Gap 16 (12-20); Blood Urea Nitrogen 23 mg/dL (9-16); Calcium 9.5 mg/dL (8.4-10.2); Carbon Dioxide 31 mmol/L (22-29); Chloride 101 mmol/L (96-108); Creatinine Clr Calc Pharmacy 79.5; Estimated Glomerular Filt Rate > 60; Glucose Random 153 mg/dL (60-115); Magnesium 2.4 mg/dL (1.6-2.6); Phosphorus 3.9 mg/dL (2.7-4.5); Potassium 3.7 mmol/L (3.3-5.1); Sodium 144 mmol/L (135-145)
[2024-09-08] MEDS: Dicyclomine HCl 10 MG CAPSULE PO ×4 (09:25→22:02)
[2024-09-08] MEDS: Apixaban 5 MG TABLET PO ×2 (09:25→22:02)
[2024-09-08] MEDS: levETIRAcetam Oral Soln 500 MG/5 ML 700 MG PO ×2 (09:26→22:03)
--- NOTE | 2024-09-08 10:05 | HO.PM.IMPN ---
Subjective Subjective Date of Service: 09/08/24 Interval History: cough improving dyspnea improving off O2 now Review of Systems Review of Systems: Yes all other systems are reviewed and are negative Physical Exam Vital Signs: Vital Signs: Last Vital Signs Temp 98.2 F 09/08/24 07:54 Pulse 84 09/08/24 07:56 Resp 20 09/08/24 07:56 BP 109/57 L 09/08/24 07:54 Pulse Ox 92 09/08/24 07:54 O2 Del Method Room Air 09/08/24 07:54 O2 Flow Rate 4 09/07/24 03:55 Oxygen Flow Rate 3 09/05/24 12:00 BMI result Body Mass Index 28.5 Gen: in no acute distress HEENT: sclera anicteric, moist mucus membranes Neck: supple, Portacath R subclavian Lungs: diminished R base Heart: regular rate and rhythm, no murmurs Abd: soft, non-tender, non-distended Ext: no edema Skin: warm/well-perfused Neuro: alert and oriented x3, no focal findings Psych: appropriate affect Objective Data Active Medications Acetaminophen (Acetaminophen 325 Mg Tablet) 650 mg PO Q6H PRN PRN Reason: Pain, Mild 1-3,fever,headache Albuterol/Ipratropium (Albuterol/Iprat 2.5/0.5mg 3 Ml Ampul.Neb) 3 ml INHALE RQ4H WHILE AWAKE PRN PRN Reason: shortness of breath/wheeze Apixaban (Apixaban 5 Mg Tablet) 5 mg PO BID [facility] Last Admin: 09/08/24 09:25 Dose: 5 mg Documented By: CHERYL Calcium Carbonate (Calcium Carbonate 750 Mg Tab.Chew) 750 mg PO Q4H PRN PRN Reason: Heartburn Ceftriaxone Sodium (Ceftriaxone Sodium 1 Gm Vial) 1 gm IVPUSH Q24H [facility] Last Admin: 09/07/24 16:10 Dose: 1 gm Documented By: ELOISE Dicyclomine HCl (Dicyclomine Hcl 10 Mg Capsule) 10 mg PO QIDACHS [facility] Last Admin: 09/08/24 09:25 Dose: 10 mg Documented By: CHERYL Diphenhydramine HCl (Diphenhydramine Hcl 50 Mg/Ml Vial) 25 mg IV QID PRN PRN Reason: Nausea Last Admin: 09/08/24 03:58 Dose: 25 mg Documented By: CIRILO Doxycycline Monohydrate (Doxycycline Monohydrate 100 Mg Capsule) 100 mg PO Q12H [facility] Last Admin: 09/08/24 05:05 Dose: 100 mg Documented By: CIRILO Fluticasone/Vilanterol (Fluticasone/Vilanterol 200/25 Blst.W.Dev) 1 puff INHALE RDAILY [facility] Last Admin: 09/08/24 07:54 Dose: 1 puff Documented By: MO Hydromorphone HCl (Hydromorphone Hcl 2 Mg Tablet) 4 mg PO BID PRN PRN Reason: Pain, Severe (Pain Scale 7-10) Last Admin: 09/08/24 00:06 Dose: 4 mg Documented By: CIRILO Nutrition (Parenteral) (Parenteral Nutrition) 1,920 mls @ 80 mls/hr IV .Q24H [facility]; Protocol Stop: 09/08/24 20:59 Last Admin: 09/07/24 22:09 Dose: 80 mls/hr Documented By: JANELLE Levetiracetam (Levetiracetam Oral Soln 500 Mg/5 Ml) 700 mg PO BID [facility] Last Admin: 09/08/24 09:26 Dose: 700 mg Documented By: CHERYL Magnesium Hydroxide (Milk Of Magnesia 30 Ml Oral.Susp) 30 ml PO DAILY PRN PRN Reason: Constipation Melatonin (Melatonin 3 Mg Tablet) 6 mg PO BEDTIME PRN PRN Reason: Insomnia Methylprednisolone Sodium Succinate (Methylprednisolone Sod Succ 40 Mg/Ml Vial) 40 mg IVPUSH Q12H [facility] Last Admin: 09/08/24 00:07 Dose: 40 mg Documented By: CIRILO Naloxone HCl (Naloxone Hcl Nasal 4 Mg [place]) 4 mg NOSTRILALT Q2M PRN PRN Reason: opioid overdose Pt Own Bupivacaine (Intrathecal Pump) 1 each INTRATHECA CONT. PER PROTOCOL [facility] Ondansetron HCl (Ondansetron Hcl 4 Mg/2 Ml Vial) 4 mg IV QID PRN PRN Reason: Nausea Last Admin: 09/08/24 03:58 Dose: 4 mg Documented By: CIRILO Pharmacy Consult (Consult Rx Parenteral Nutrition Ordering) 1 each MISCELLANE DAILY PRN PRN Reason: Consult order Promethazine HCl (Promethazine Hcl 25 Mg Tablet) 25 mg PO QID PRN PRN Reason: Nausea And Vomiting Last Admin: 09/06/24 00:34 Dose: 25 mg Documented By: CIRILO Sodium Chloride (0.9 % Sodium Chloride Flush 3 Ml Syringe) 3 ml IVFLUSH QSHIFT [facility] Last Admin: 09/08/24 09:28 Dose: Not Given Documented By: CHERYL Non-Admin Reason: IV Running Labs 09/05/24 11:10 09/08/24 06:50 Labs: Laboratory Results - last 24 hr 09/08/24 06:50 Anion Gap 16 Estim Creat Clear Calc 79.5 Estimated GFR > 60 Random Glucose 153 H Calcium 9.5 D Phosphorus 3.9 Magnesium 2.4 B-Natriuretic Peptide 89 Albumin 3.8 Microbiology Microbiology Results: Microbiology 09/05/24 13:25 Blood Culture - Preliminary Blood - Venous No growth after 48 hours. 09/05/24 13:29 Blood Culture - Preliminary Blood - Venous No growth after 48 hours. Assessment and Plan (1) Pneumonia: Status: Acute (2) Pleural effusion: Status: Acute Plan d4 for 44yo F with hx DVT/PE on apixaban, Crohn's disease on chronic TPN, Behcet's disease, hx chylothorax, chronic SVC obstruction and chronic pain syndrome; recent admission 08/20-09/04 initially for norovirus but then developed hypoxia from flu complicated by RLL with parapneumonic effusion and loculation worrisome for empyema. Collection to small to drain by IR and was to undergo decortication but repeat imaging showed improvement, so this was not done. Pt went therapeutic/diagnostic bronchoscopy and was discharged home on 3L O2 and cefuroxime + doxycycline. Presented the day after discharge with worsening cough and dyspnea. acute hypoxic respiratory failure pneumonia/parapneumomic effusion - due to effects of pneumonia vs possible fluid overload. TTE essentially normal other than hyperdynamic LV. Stop furosemide [negative 705 mL fluid balance]. Continue ceftriaxone and doxycycline. Blood cultures negative, PCT low. Pulmonology consulted, started methylprednisolone 40 mg IV q12h 09/06 and will transition to prednisone taper in next 1-2d. Cultures from bronchoscopy negative. CPT/Aerobika to help mobilize secretions. PRN nebs. - TTE 09/06: 1. Technically limited study despite use of contrast agent 2. Hyperdynamic LV ejection fraction greater than 70% 3. Cardiac valvular Dopplers within normal limits 4. Normal calculated right ventricular systolic pressure hypoK - repleted influenza A - completed oseltamivir 08/24-08/29 Crohn's disease - on TPN for past 4 yr hx PE/DVT - continue apixaban seizure disorder - continue levetiracetam SVC obstruction - chronic chronic pain - continue hydromorphone, intrathecal bupivacaine pump VTE ppx - apixaban dispo - plan home with resumption of VNA services In my clinical judgment, the patient requires continued inpatient hospitalization for the following reasons: IV antibiotics/steroids Per CM: The patients formula in the home is significantly different from the TPN she is receiving now. [facility] is not able to make the formula for this . They will be able to make the formula for Tuesday. DC is on hold until [facility] can delivery TPN on Tuesday. Total time managing care of this patient today: 35 minutes. Quality Stroke Does the patient have a stroke diagnosis?: No VTE Prior VTE?: No VTE Risk Level:: Medical - moderate - high VTE Device Contraindication: Treatment Not Indicated VTE Drug Contraindication: N/A - Med Ordered
[2024-09-08] MEDS: Albuterol/Iprat 2.5/0.5MG 3 ML AMPUL.NEB INHALE ×3 (11:49→19:44)
[2024-09-08] MEDS: cefTRIAXone sodium 1 GM VIAL IVPUSH (16:11)
--- NOTE | 2024-09-08 18:26 | PC.NURSE ---
Report called to PILAR Joy on med surg floor regarding transfer to room 363.
[2024-09-08] MEDS: Parenteral Nutrition 1,920 ML 80 ML IV (22:45)
[2024-09-09] VITALS (7 sets, daily range): BP systolic 109–128; BP diastolic 57–62; PULSE 63–76; RESP 12–18; TEMP 36.3–36.5; O2SAT 93–97
[2024-09-09] MEDS: HYDROmorphone HCl 2 MG TABLET 4 MG PO ×2 (00:30→12:47)
[2024-09-09] MEDS: methylPREDNISolone Sod Succ 40 MG/ML VIAL IVPUSH ×2 (00:31→22:46)
[2024-09-09] MEDS: Doxycycline Monohydrate 100 MG CAPSULE PO ×2 (04:01→15:48)
[2024-09-09] MEDS: diphenhydrAMINE HCL 50 MG/ML VIAL 25 MG IV ×4 (04:02→21:53)
[2024-09-09] MEDS: ondansetron HCL 4 MG/2 ML VIAL IV ×4 (04:02→21:53)
[2024-09-09 06:45] LABS: Albumin Level 3.6 g/dL (3.5-5.0); Anion Gap 14 (12-20); Blood Urea Nitrogen 23 mg/dL (9-16); Calcium 9.4 mg/dL (8.4-10.2); Carbon Dioxide 34 mmol/L (22-29); Chloride 100 mmol/L (96-108); Creatinine Clr Calc Pharmacy 78.5; Estimated Glomerular Filt Rate > 60; Glucose Random 185 mg/dL (60-115); Magnesium 2.3 mg/dL (1.6-2.6); Phosphorus 4.5 mg/dL (2.7-4.5); Potassium 3.9 mmol/L (3.3-5.1); Sodium 144 mmol/L (135-145)
[2024-09-09] MEDS: Albuterol/Iprat 2.5/0.5MG 3 ML AMPUL.NEB INHALE ×3 (08:36→15:20)
[2024-09-09] MEDS: Fluticasone/Vilanterol 200/25 BLST.W.DEV 1 PUFF INHALE (08:41)
[2024-09-09] MEDS: Dicyclomine HCl 10 MG CAPSULE PO ×4 (08:47→20:42)
[2024-09-09] MEDS: Apixaban 5 MG TABLET PO ×2 (08:47→20:42)
[2024-09-09] MEDS: levETIRAcetam Oral Soln 500 MG/5 ML 700 MG PO ×2 (08:47→20:42)
--- NOTE | 2024-09-09 10:22 | HO.PM.IMPN ---
Subjective Subjective Date of Service: 09/09/24 Interval History: breathing improved developed 5 episodes watery diarrhea yesterday Review of Systems Review of Systems: Yes all other systems are reviewed and are negative Physical Exam Vital Signs: Vital Signs: Last Vital Signs Temp 97.7 F 09/09/24 07:32 Pulse 66 09/09/24 08:38 Resp 16 09/09/24 08:38 BP 118/57 L 09/09/24 07:32 Pulse Ox 93 09/09/24 07:32 O2 Del Method Room Air 09/09/24 07:32 O2 Flow Rate 4 09/07/24 03:55 Oxygen Flow Rate 3 09/05/24 12:00 BMI result Body Mass Index 28.5 Gen: in no acute distress HEENT: sclera anicteric, moist mucus membranes Neck: supple, Portacath R subclavian Lungs: diminished R base Heart: regular rate and rhythm, no murmurs Abd: soft, non-tender, non-distended Ext: no edema Skin: warm/well-perfused Neuro: alert and oriented x3, no focal findings Psych: appropriate affect Objective Data Active Medications Acetaminophen (Acetaminophen 325 Mg Tablet) 650 mg PO Q6H PRN PRN Reason: Pain, Mild 1-3,fever,headache Albuterol/Ipratropium (Albuterol/Iprat 2.5/0.5mg 3 Ml Ampul.Neb) 3 ml INHALE RQ4H WHILE AWAKE [facility] Last Admin: 09/09/24 08:36 Dose: 3 ml Documented By: JIMMY Apixaban (Apixaban 5 Mg Tablet) 5 mg PO BID [facility] Last Admin: 09/09/24 08:47 Dose: 5 mg Documented By: MORENA Calcium Carbonate (Calcium Carbonate 750 Mg Tab.Chew) 750 mg PO Q4H PRN PRN Reason: Heartburn Ceftriaxone Sodium (Ceftriaxone Sodium 1 Gm Vial) 1 gm IVPUSH Q24H [facility] Last Admin: 09/08/24 16:11 Dose: 1 gm Documented By: CHERYL Dicyclomine HCl (Dicyclomine Hcl 10 Mg Capsule) 10 mg PO QIDACHS [facility] Last Admin: 09/09/24 08:47 Dose: 10 mg Documented By: MORENA Diphenhydramine HCl (Diphenhydramine Hcl 50 Mg/Ml Vial) 25 mg IV QID PRN PRN Reason: Nausea Last Admin: 09/09/24 09:59 Dose: 25 mg Documented By: MORENA Doxycycline Monohydrate (Doxycycline Monohydrate 100 Mg Capsule) 100 mg PO Q12H [facility] Last Admin: 09/09/24 04:01 Dose: 100 mg Documented By: JUANITA Fluticasone/Vilanterol (Fluticasone/Vilanterol 200/25 Blst.W.Dev) 1 puff INHALE RDAILY [facility] Last Admin: 09/09/24 08:41 Dose: 1 puff Documented By: SCOVILKarol Hydromorphone HCl (Hydromorphone Hcl 2 Mg Tablet) 4 mg PO BID PRN PRN Reason: Pain, Severe (Pain Scale 7-10) Last Admin: 09/09/24 00:30 Dose: 4 mg Documented By: JUANTIA Nutrition (Parenteral) (Parenteral Nutrition) 1,920 mls @ 80 mls/hr IV .Q24H [facility]; Protocol Stop: 09/09/24 20:59 Last Admin: 09/08/24 22:45 Dose: 80 mls/hr Documented By: JUANTIA Comments: delayed d/t TPN being in pyxis on [facility] Nutrition (Parenteral) (Parenteral Nutrition) 1,920 mls @ 80 mls/hr IV .Q24H [facility]; Protocol Stop: 09/10/24 20:59 Levetiracetam (Levetiracetam Oral Soln 500 Mg/5 Ml) 700 mg PO BID [facility] Last Admin: 09/09/24 08:47 Dose: 700 mg Documented By: MORENA Magnesium Hydroxide (Milk Of Magnesia 30 Ml Oral.Susp) 30 ml PO DAILY PRN PRN Reason: Constipation Melatonin (Melatonin 3 Mg Tablet) 6 mg PO BEDTIME PRN PRN Reason: Insomnia Methylprednisolone Sodium Succinate (Methylprednisolone Sod Succ 40 Mg/Ml Vial) 40 mg IVPUSH Q24H [facility] Naloxone HCl (Naloxone Hcl Nasal 4 Mg [place]) 4 mg NOSTRILALT Q2M PRN PRN Reason: opioid overdose Pt Own Bupivacaine (Intrathecal Pump) 1 each INTRATHECA CONT. PER PROTOCOL [facility] Ondansetron HCl (Ondansetron Hcl 4 Mg/2 Ml Vial) 4 mg IV QID PRN PRN Reason: Nausea Last Admin: 09/09/24 09:56 Dose: 4 mg Documented By: MORENA Pharmacy Consult (Consult Rx Parenteral Nutrition Ordering) 1 each MISCELLANE DAILY PRN PRN Reason: Consult order Promethazine HCl (Promethazine Hcl 25 Mg Tablet) 25 mg PO QID PRN PRN Reason: Nausea And Vomiting Last Admin: 09/06/24 00:34 Dose: 25 mg Documented By: CIRILO Sodium Chloride (0.9 % Sodium Chloride Flush 3 Ml Syringe) 3 ml IVFLUSH QSHIFT [facility] Last Admin: 09/09/24 08:47 Dose: Not Given Documented By: MORENA Non-Admin Reason: IV Running Labs 09/05/24 11:10 09/09/24 06:00 Labs: Laboratory Results - last 24 hr 09/09/24 06:00 Hold Purple Top SEE NOTE Anion Gap 14 Estim Creat Clear Calc 78.5 Estimated GFR > 60 Random Glucose 185 H Calcium 9.4 Phosphorus 4.5 Magnesium 2.3 Albumin 3.6 Assessment and Plan (1) Pneumonia: Status: Acute (2) Pleural effusion: Status: Acute Plan d5 for 44yo F with hx DVT/PE on apixaban, Crohn's disease on chronic TPN, Behcet's disease, hx chylothorax, chronic SVC obstruction and chronic pain syndrome; recent admission 08/20-09/04 initially for norovirus but then developed hypoxia from flu complicated by RLL with parapneumonic effusion and loculation worrisome for empyema. Collection to small to drain by IR and was to undergo decortication but repeat imaging showed improvement, so this was not done. Pt went therapeutic/diagnostic bronchoscopy and was discharged home on 3L O2 and cefuroxime + doxycycline. Presented the day after discharge with worsening cough and dyspnea. acute hypoxic respiratory failure pneumonia/parapneumomic effusion - due to effects of pneumonia vs possible fluid overload. TTE essentially normal other than hyperdynamic LV. Stopped furosemide. Continue ceftriaxone and doxycycline. Blood cultures negative, PCT low. Pulmonology consulted, started methylprednisolone 40 mg IV q12h 09/06 and will transition to prednisone taper tomorrow. Cultures from bronchoscopy negative. CPT/Aerobika to help mobilize secretions. PRN nebs. - TTE 09/06: 1. Technically limited study despite use of contrast agent 2. Hyperdynamic LV ejection fraction greater than 70% 3. Cardiac valvular Dopplers within normal limits 4. Normal calculated right ventricular systolic pressure diarrhea - check Cdiff + GI panel hypoK - repleted influenza A - completed oseltamivir 08/24-08/29 Crohn's disease - on TPN for past 4 yr hx PE/DVT - continue apixaban seizure disorder - continue levetiracetam SVC obstruction - chronic chronic pain - continue hydromorphone, intrathecal bupivacaine pump VTE ppx - apixaban dispo - plan home with resumption of VNA services In my clinical judgment, the patient requires continued inpatient hospitalization for the following reasons: IV antibiotics/steroids Per CM: The patients formula in the home is significantly different from the TPN she is receiving now. [facility] is not able to make the formula for this . They will be able to make the formula for Tuesday. DC is on hold until [facility] can delivery TPN on Tuesday. Total time managing care of this patient today: 35 minutes. Quality Stroke Does the patient have a stroke diagnosis?: No VTE Prior VTE?: No VTE Risk Level:: Medical - moderate - high VTE Device Contraindication: Treatment Not Indicated VTE Drug Contraindication: N/A - Med Ordered
[2024-09-09 15:02] LABS: CDiff Gene PCR NEGATIVE (Negative)
[2024-09-09 15:11] LABS: Adenovirus F 40/41 Not Detected (Not Detect.); Astrovirus Not Detected (Not Detect.); Campylobacter Not Detected (Not Detect.); Cryptosporidium Not Detected (Not Detect.); Cyclospora cayetanensis Not Detected (Not Detect.); E. coli EAEC Not Detected (Not Detect.); E. coli EPEC Not Detected (Not Detect.); E. coli ETEC Not Detected (Not Detect.); E. coli STEC Not Detected (Not Detect.); Entamoeba histolytica Not Detected (Not Detect.); Giardia lamblia Not Detected (Not Detect.); Norovirus GI/GII Not Detected (Not Detect.); Plesiomonas shigelloides Not Detected (Not Detect.); Rotavirus A Not Detected (Not Detect.); Salmonella Not Detected (Not Detect.); Sapovirus Not Detected (Not Detect.); Shigella sp./EIEC Not Detected (Not Detect.); Vibrio Not Detected (Not Detect.); Vibrio Cholerae Not Detected (Not Detect.); Yersinia enterocolitica Not Detected (Not Detect.)
[2024-09-09] MEDS: cefTRIAXone sodium 1 GM VIAL IVPUSH (15:48)
[2024-09-09] MEDS: HYDROmorphone HCl 1 MG/ML SYRINGE IVPUSH (15:48)
[2024-09-09] MEDS: Acetaminophen 325 MG TABLET 650 MG PO (21:54)
[2024-09-09] MEDS: Parenteral Nutrition 1,920 ML 80 ML IV (22:01)
[2024-09-10] MEDS: HYDROmorphone HCl 2 MG TABLET 4 MG PO ×3 (00:31→13:36)
[2024-09-10] MEDS: Melatonin 3 MG TABLET 6 MG PO (00:31)
[2024-09-10 00:34] VITALS: BP 113/59; PULSE 65
[2024-09-10 03:41] VITALS: BP 115/58; PULSE 66; RESP 18; TEMP 36.3; O2SAT 94
[2024-09-10] MEDS: ondansetron HCL 4 MG/2 ML VIAL IV ×2 (04:02→09:50)
[2024-09-10] MEDS: Doxycycline Monohydrate 100 MG CAPSULE PO (04:02)
[2024-09-10] MEDS: diphenhydrAMINE HCL 50 MG/ML VIAL 25 MG IV ×2 (04:02→09:51)
[2024-09-10 07:04] VITALS: BP 115/59; PULSE 69; RESP 14; TEMP 36.2; O2SAT 94
[2024-09-10 07:40] LABS: Albumin Level 3.6 g/dL (3.5-5.0); Anion Gap 13 (12-20); Blood Urea Nitrogen 26 mg/dL (9-16); Calcium 9.6 mg/dL (8.4-10.2); Carbon Dioxide 35 mmol/L (22-29); Chloride 100 mmol/L (96-108); Creatinine Clr Calc Pharmacy 77.4; Estimated Glomerular Filt Rate > 60; Glucose Random 161 mg/dL (60-115); Phosphorus 4.6 mg/dL (2.7-4.5); Sodium 144 mmol/L (135-145)
[2024-09-10] MEDS: Albuterol/Iprat 2.5/0.5MG 3 ML AMPUL.NEB INHALE ×2 (07:45→11:15)
[2024-09-10] MEDS: Fluticasone/Vilanterol 200/25 BLST.W.DEV 1 PUFF INHALE (07:45)
[2024-09-10 07:47] VITALS: PULSE 67; RESP 18; O2SAT 99
[2024-09-10] MEDS: levETIRAcetam Oral Soln 500 MG/5 ML 700 MG PO (08:07)
[2024-09-10] MEDS: Apixaban 5 MG TABLET PO (08:07)
[2024-09-10] MEDS: Dicyclomine HCl 10 MG CAPSULE PO ×2 (08:07→11:40)
--- NOTE | 2024-09-10 10:07 | MHC.CLN ---
F/U DIET=FULL LIQUIDS. CONTINUES TPN WITH SCHEDULE OF NO LIPIDS ORDERED TUESDAY OR TUESDAY. REVIEWED LABS. COMMUNICATED WITH PHARMACY. RECOMMEND TPN AT 80ML/HR WITH 50G LIPIDS TO PROVIDE 1460 TOTAL KCALS (28KCALS/KG), 70G PROTEIN (1.3G/KG), 200G DEXTROSE REPLETE LYTES NEEDED. QUESTION IF PATIENT WILL DISCHARGE TO HOME TODAY.
[2024-09-10 11:17] VITALS: PULSE 65; RESP 18; O2SAT 98
--- NOTE | 2024-09-10 12:41 | MHC.CM.PN ---
Per MD patient medically cleared for dc home. Will resume TPN w/ [facility] and will start services w/ [facility]. Transport via [employer] when son returns to bedside to assist. RN aware. IMM delivered.
--- NOTE | 2024-09-10 13:06 | P.F2F_ITS ---
Service Date Service Date: 09/10/24 Encounter Date of encounter: 09/10/24 Reasons for Services Signs and symptoms assessed: TPN administration home oxygen Reason for long-term: administration of IV, SQ, or IM injection, central line care, medication management, medication treatment and teach disease management Reason for physical therapy: home safety and mobility, therapeutic exercises, gait/transfer training, assess need for DME, ADL training and energy conservation MD Overseeing Care: Brian Morales Homebound: Leaving the home is medically contraindicated at this time without the asist of a device and/or another person due th the listed conditions above and below. Reason homebound: shortness of breath with minimal effort, immunosuppression / infection risk and weakness related to hospital stay Certification: Based on the above findings, I certify that this patient is confined to the home and needs intermittent long-term care, physical therapy and/or speech therapy, or continues to need occupational therapy. The patient is under my care, and I have initiated the establishment of the plan of care. The patient will be followed by a physician who will periodically review the plan of care. Time Spent With Patient Time: Total time managing care of this patient today ____ minutes.
--- NOTE | 2024-09-10 13:14 | PM.DS ---
DS: Providers Provider Date of Service: 09/10/24 Date of admission: 09/05/24 16:44 Date of discharge: 09/10/24 Primary care physician: Lelia Salinas MD Consults: 09/05/24 17:25 Consult to Pulmonology Routine Consulting Provider: [facility] [place] [facility] Reason for consultation: Recent bronch w/therapeutic cleansing, brushing, and washing DS: Diagnosis Discharge Diagnosis (1) Pneumonia: Status: Acute (2) Pleural effusion: Status: Acute (3) On total parenteral nutrition: Status: Acute (4) Acute respiratory failure with hypoxia: Status: Acute DS: Summary Hospital Course Hospital Course: From the history and physical by the admitting hospitalist, NIVIA Mejía, 09/05/24: Pt is a 44-year-old female with a PMH significant for?hx of DVT/PE on Eliquis, Crohn's disease on chronic TPN, Behcet's disease, hx of chylothorax, chronic SVC obstruction, and chronic pain syndrome who presents to the ED for evaluation of worsening SOB?and difficulty breathing since discharge from the hospital yesterday. Pt had a prolonged and complicated hospital stay from 08/20-09/04 where she was initially treated for abdominal pain secondary to norovirus, but hospital course was complicated when she became hypoxic and tested positive for flu and CT showed right lower lobe pneumonia with parapneumonic effusion and loculation suggestive of empyema. IR found fluid collection too small to drain, and pt was initially scheduled to undergo decortication though that was held after additional consideration. Pt underwent bronchoscopy with therapeutic cleansing, brushing, and washing by pulmonology with improvement. Pt underwent home O2 evaluation and was discharged on 3L NC as well as cefuroxime and doxycycline p.o.. Pt reports SOB, LAINEZ, and cough worsened after getting home but she initially attempted to see if she improved overnight. When symptoms worsened in the morning she decided to come back to the hospital for further evaluation. Some pleuritic chest pressure/tightness. Chills but no measured fever. Chronic diffuse abdominal pain around baseline. Continues to complain diarrhea 3 to 4 times a day. Nausea but no vomiting. In the ED pt was tachypneic up to 24, and soft BP of 120/56. Pt was initially found by EMS at 88% on home 3 L NC. Labs were significant for potassium 3.1, ALT 72, BNP 980, and still testing positive for influenza type A. No leukocytosis. Stable H&H. Renal function WNL. VBG pH 7.48, pCO2 38, and bicarb 28, similar to prior. CXR showed mild interstitial pulmonary edema, unchanged right basilar consolidation suggesting pneumonia, and loculated effusion in major fissure on right. EKG demonstrated normal sinus rhythm with nonspecific ST and T-wave abnormalities, similar to prior. Pt was treated in the ED with DuoNebs, Solu-Medrol, ondansetron, diphenhydramine, Tamiflu, hydromorphone, Lasix 40 mg IV, and ceftriaxone and azithromycin. Pt admitted to the hospital for treatment and further evaluation of acute on chronic hypoxic respiratory failure in the setting of pneumonia that failed outpatient therapy vs question of CHF. 44yo F with hx DVT/PE on apixaban, Crohn's disease on chronic TPN, Behcet's disease, hx chylothorax, chronic SVC obstruction and chronic pain syndrome; recent admission 08/20-09/04 initially for norovirus but then developed hypoxia from flu complicated by RLL with parapneumonic effusion and loculation worrisome for empyema. Collection to small to drain by IR and was to undergo decortication but repeat imaging showed improvement, so this was not done. Pt went therapeutic/diagnostic bronchoscopy and was discharged home on 3L O2 and cefuroxime + doxycycline. Presented the day after discharge with worsening cough and dyspnea and admitted to the medical-surgical unit for hypoxia due to effects of pneumonia vs possible fluid overload. Treated with IV ceftriaxone and PO doxycycline. Also diuresed with IV furosemide. TTE essentially normal other than hyperdynamic LV. Stopped furosemide. Continued ceftriaxone and doxycycline. Blood cultures negative, PCT low. Pulmonology consulted, started methylprednisolone IV. Cultures from bronchoscopy negative. Performed CPT and provided Aerobika to help mobilize secretions. Weaned off oxygen at rest and will continue 3L with ambulation pending 6-minute walk test in secondary social studies teacher's office. She was discharged home with VNA services and will continue cefuroxime + doxycycline for 14 days and prednisone taper for 12 days as previously prescribed upon the last discharge. Discharge was delayed due to changes in the TPN formula but these were sorted out on 09/10/24. Time Attestation Discharge Coordination Time (in mins): 40 Quality: Safe Use of Opioids Does Pt have an Active Cancer Diagnosis on the Problem List?: No Quality: Stroke Does the patient have a stroke diagnosis?: No Physical Exam Vital Signs: Vital Signs: Last Vital Signs Temp 97.1 F 09/10/24 07:04 Pulse 65 09/10/24 11:17 Resp 18 09/10/24 11:17 BP 115/59 L 09/10/24 07:04 Pulse Ox 94 09/10/24 07:04 O2 Del Method Room Air 09/10/24 07:04 O2 Flow Rate 4 09/07/24 03:55 Oxygen Flow Rate 3 09/05/24 12:00 BMI result Body Mass Index 28.5 Gen: in no acute distress HEENT: sclera anicteric, moist mucus membranes Neck: supple, Portacath R subclavian Lungs: diminished R base Heart: regular rate and rhythm, no murmurs Abd: soft, non-tender, non-distended Ext: no edema Skin: warm/well-perfused Neuro: alert and oriented x3, no focal findings Psych: appropriate affect DS: Data Data Completed and Pending Completed studies during hospitalization [Text1]: Laboratory Results WBC 6.5 X10*3/uL (4.8-10.8) 09/05/24 11:10 RBC 3.73 X10*6/uL (4.20-5.50) L 09/05/24 11:10 Hgb 10.9 g/dl (12.0-16.0) L 09/05/24 11:10 Hct 33.2 % (37.0-47.0) L 09/05/24 11:10 MCV 89.0 fL (80.0-98.0) 09/05/24 11:10 MCH 29.2 pg (27.0-33.0) 09/05/24 11:10 MCHC 32.8 g/dl (31.0-35.0) 09/05/24 11:10 RDW 14.4 % (11.0-16.0) 09/05/24 11:10 Plt Count 237 X10*3/uL (160-400) D 09/05/24 11:10 MPV 11.2 fL (9.4-12.3) 09/05/24 11:10 Immature Gran % (Auto) 0.9 % (0.0-0.4) H 09/05/24 11:10 Neut % (Auto) 76.3 % (45-73) H 09/05/24 11:10 Lymph % (Auto) 15.0 % (20-40) L 09/05/24 11:10 Dorado % (Auto) 6.2 % (2-11) 09/05/24 11:10 Eos % (Auto) 1.4 % (0-4) 09/05/24 11:10 Baso % (Auto) 0.2 % (0-2) 09/05/24 11:10 Lymph # (Auto) 1.0 X10*3/uL (1.2-4.9) L 09/05/24 11:10 Dorado # (Auto) 0.4 X10*3/uL (0.1-1.2) 09/05/24 11:10 Eos # (Auto) 0.1 X10*3/uL (0.0-0.4) 09/05/24 11:10 Baso # (Auto) 0.0 X10*3/uL (0.0-0.2) 09/05/24 11:10 Abs Immat Gran (auto) 0.06 X10*3/uL (0.00-0.03) H 09/05/24 11:10 Absolute Neuts (auto) 4.9 x10*3/uL (2.0-8.3) 09/05/24 11:10 Absolute Nucleated RBC 0.000 X10*3/uL (0.0-0.012) 09/05/24 11:10 Nucleated RBC % (auto) 0.0 /100WBC (0.0-0.2) 09/05/24 11:10 Hold Purple Top SEE NOTE 09/09/24 06:00 VBG pH 7.48 (7.32-7.43) H 09/05/24 11:15 VBG pCO2 38 mmHg 09/05/24 11:15 VBG pO2 44 mmHg 09/05/24 11:15 VBG HCO3 28 mmol/L (22-26) H 09/05/24 11:15 VBG O2 Saturation 78.0 % 09/05/24 11:15 VBG Base Excess 5.3 mmol/L 09/05/24 11:15 Sodium 144 mmol/L (135-145) 09/10/24 07:09 Potassium 4.0 mmol/L (3.3-5.1) 09/10/24 07:09 Chloride 100 mmol/L (96-108) 09/10/24 07:09 Carbon Dioxide 35 mmol/L (22-29) H 09/10/24 07:09 Anion Gap 13 (12-20) 09/10/24 07:09 BUN 26 mg/dL (9-16) H 09/10/24 07:09 Creatinine 0.77 mg/dL (0.5-1.4) 09/10/24 07:09 Estim Creat Clear Calc 77.4 09/10/24 07:09 Estimated GFR > 60 09/10/24 07:09 Random Glucose 161 mg/dL (60-115) H 09/10/24 07:09 Lactic Acid 1.8 mmol/L (0.5-2.0) 09/05/24 13:29 Calcium 9.6 mg/dL (8.4-10.2) 09/10/24 07:09 Phosphorus 4.6 mg/dL (2.7-4.5) H 09/10/24 07:09 Magnesium 2.0 mg/dL (1.6-2.6) 09/10/24 07:09 Total Bilirubin 0.6 mg/dL (0.0-1.0) 09/05/24 11:10 AST 19 U/L (5-31) 09/05/24 11:10 ALT 72 U/L (0-31) H 09/05/24 11:10 Alkaline Phosphatase 44 U/L (39-117) 09/05/24 11:10 B-Natriuretic Peptide 89 pg/mL (<100) 09/08/24 06:50 Total Protein 5.8 g/dL (6.5-8.0) L 09/05/24 11:10 Albumin 3.6 g/dL (3.5-5.0) 09/10/24 07:09 Procalcitonin 0.03 ng/mL 09/06/24 06:34 Stl C. cayetanensis PCR Not Detected (Not Detect.) 09/09/24 13:42 Stool Rotavirus A PCR Not Detected (Not Detect.) 09/09/24 13:42 Stl Adenov F 40/41 PCR Not Detected (Not Detect.) 09/09/24 13:42 Stool Astrovirus (PCR) Not Detected (Not Detect.) 09/09/24 13:42 Stool Campylobacter PCR Not Detected (Not Detect.) 04 13:42 Stool Cryptosporidium PCR Not Detected (Not Detect.) 09/09/24 13:42 Stl Sh Tox Pr E STEC PCR Not Detected (Not Detect.) 09/09/24 13:42 Stool E coli O157 PCR Not applicable (Not Detect.) 09/09/24 13:42 Stl Enterotoxigenic E PCR Not Detected (Not Detect.) 09/09/24 13:42 Stool EPEC (PCR) Not Detected (Not Detect.) 09/09/24 13:42 Stool EAEC (PCR) Not Detected (Not Detect.) 09/09/24 13:42 Stl E. histolytica PCR Not Detected (Not Detect.) 09/09/24 13:42 Stool Giardia Lamblia PCR Not Detected (Not Detect.) 09/09/24 13:42 Stl P. shigelloides PCR Not Detected (Not Detect.) 09/09/24 13:42 Stool Salmonella PCR Not Detected (Not Detect.) 09/09/24 13:42 Stool Sapovirus (PCR) Not Detected (Not Detect.) 09/09/24 13:42 Stl Shigella/EIEC PCR Not Detected (Not Detect.) 09/09/24 13:42 St Y.enterocolitica PCR Not Detected (Not Detect.) 09/09/24 13:42 Stool Vibrio (PCR) Not Detected (Not Detect.) 09/09/24 13:42 Stl Vibrio cholerae PCR Not Detected (Not Detect.) 09/09/24 13:42 Stl Norovirus GI/GII PCR Not Detected (Not Detect.) 09/09/24 13:42 C. difficile Tox B Gene NEGATIVE (Negative) 09/09/24 13:42 Influenza Type A (PCR) POSITIVE (Negative) A 09/05/24 10:57 Influenza Type B (PCR) NEGATIVE (Negative) 09/05/24 10:57 RSV RNA Qual (PCR) NEGATIVE (Negative) 09/05/24 10:57 SARS-CoV-2 RNA (RT-PCR) NEGATIVE (Negative) 09/05/24 10:57 Impressions Chest X-Ray 09/07/24 07:30 IMPRESSION: Cardiomegaly. Improvement in pulmonary vascular congestion and right middle lobe airspace opacity. Electronically signed by: Mohan Mckenna MD 09/07/2024 07:51 AM EDT RP Discharge Plan Discharge Anticipated Discharge Date/Time: 09/10/24 13:07 Patient Disposition: Home Health Service Discharge Diagnosis: hypoxia pneumonia Referrals: [facility] [Other] - 1 Week (resume TPN) [facility] [Outside] - 3-5 Days Keri Self MD [Physician] - 1 Week Lelia Graham MD [Physician] - 1 Week Physician,Nonstajailene [Physician] - 1 Week (Lelia Morales MD Address: [address] [place] [address] ) Erwin Ricketts MD [Physician] - 2 Weeks Discharge Medications: Continued Incruse Ellipta 62.5 mcg/actuation Blister With Device 1 inh INHALATION DAILY fluticasone furoate-vilanterol [Breo Ellipta] 200-25 mcg/dose Blister With Device 1 inh INHALATION Q24H diphenhydramine HCl 50 mg/mL solution 25 mg IV QID PRN (Reason: Nausea) ondansetron HCl (PF) 4 mg/2 mL solution 4 mg IV QID PRN (Reason: Nausea) promethazine 25 mg Tablet 25 mg PO QID PRN (Reason: Nausea And Vomiting) albuterol sulfate 90 mcg/actuation HFA aerosol inhaler 2 puff inhalation Q4-6H PRN (Reason: shortness of breath or wheezing) Qty: 8.5 0RF levetiracetam 100 mg/mL solution 700 mg PO BID dicyclomine 10 mg Capsule 10 mg PO QIDACHS Qty: 56 0RF prednisone 10 mg tablet See Taper PO DIRECTED Qty: 30 0RF Taper: Prednisone 40 mg daily for 3 Days and 0 Hour 30 mg daily for 3 Days and 0 Hour 20 mg daily for 3 Days and 0 Hour 10 mg daily for 3 Days and 0 Hour Rx Instructions: see taper instructions cefuroxime axetil 500 mg tablet 500 mg PO BID Qty: 28 0RF doxycycline hyclate 100 mg tablet 100 mg PO BID Qty: 28 0RF Eliquis 5 mg tablet 5 mg PO BID Qty: 60 0RF hydromorphone 4 mg tablet 4 mg PO BID PRN (Reason: severe pain (scale score 7-10)) 30 Days Qty: 60 0RF Rx Instructions: Partial fill per patient's request only naloxone [Narcan] 4 mg/actuation spray,non-aerosol 4 mg intranasal Q2M PRN (Reason: opioid overdose) Qty: 2 0RF Rx Instructions: spray 1 dose into ONE nostril; alternate nostrils w each dose until help arrives Discharge Orders: Discharge Order (Routine); Ordered 09/10/24 Ordered By: Keri Self Diet: Advance to usual diet Activity on Discharge: As tolerated Stand Alone Forms: Patient Portal Discharge page Print Language: Czech Care Plan Goals: recovery from pneumonia Health Concerns: hypoxia pneumonia TPN dependence Plan of Treatment: continue plan as per prior discharge: - cefuroxime 500 mg twice daily PLUS doxycycline 100 mg twice daily, total 14 days - prednisone taper: 40 mg daily x 3 days, then 30 mg daily x 3 days, then 20 mg daily x 3 days, then 10 mg daily x 3 days updated TPN formula ordered follow up with Dr Ricketts [[facility] [place] [facility] 6-minute walk test to see if oxygen still needed Please follow up with your primary care doctor within 1 week. Return to the hospital if you experience recurrent or worsening symptoms. Assessment: See Discharge Summary.
== END 2024-09-10 14:10 | disposition home health service (06) | DRG 193 ==
LOC: HO.ED 16:52 → HO.EDOVER 16:59 → HO.IMC 19:33 → HO.S3 09-08 18:49
PROVIDERS: Registered Nurse Emergency; Admitting Provider Student in an Organized Health Care Education/Training Program; Emergency Provider Emergency Medicine; Visit Provider Family Medicine
DX: J10.00 Influenza due to other identified influenza virus with unspecified type of pneumonia (principal); J96.21 Acute and chronic respiratory failure with hypoxia; J91.8 Pleural effusion in other conditions classified elsewhere; M35.2 Behcet's disease; K50.90 Crohn's disease, unspecified, without complications; E87.6 Hypokalemia; G40.909 Epilepsy, unspecified, not intractable, without status epilepticus; G89.4 Chronic pain syndrome; R19.7 Diarrhea, unspecified; K59.03 Drug induced constipation; T40.2X5A Adverse effect of other opioids, initial encounter; Z97.8 Presence of other specified devices; Z86.711 Personal history of pulmonary embolism; Z86.718 Personal history of other venous thrombosis and embolism; Z79.01 Long term (current) use of anticoagulants; Z79.51 Long term (current) use of inhaled steroids; Z79.899 Other long term (current) drug therapy
CPT/HCPCS: 0241U; 36415; 71045; 80048; 80053; 82040; 82803; 83605; 83735; 83880; 84100; 84145; 85025; 87040; 87493; 87507; 93005; 93306; 94640; 97161; 99285; J0456; J0696; J1171; J1200; J1940; J2405; J2919; J3480; Q9957

== ENCOUNTER → 2024-09-05 10:46 | Outpatient (BNV) | payer MEDICARE, MEDICAID, SELFPAY | PROVIDERS: Emergency Provider Emergency Medicine; Visit Provider Radiology Diagnostic Radiology | DX: J92.9 Pleural plaque without asbestos (principal); R06.00 Dyspnea, unspecified | CPT/HCPCS: 71045 ==

== ENCOUNTER → 2024-09-05 10:46 | Outpatient (BNV) | payer MEDICARE, MEDICAID, SELFPAY | PROVIDERS: Emergency Provider Emergency Medicine; Visit Provider Internal Medicine Cardiovascular Disease | DX: R06.02 Shortness of breath (principal); R94.31 Abnormal electrocardiogram [ECG] [EKG] | CPT/HCPCS: 93010 ==

== ENCOUNTER 2024-09-05 16:44 | Outpatient (BNV) | payer MEDICARE, MEDICAID, SELFPAY | END 2024-09-07 07:30 | PROVIDERS: Admitting Provider Student in an Organized Health Care Education/Training Program; Emergency Provider Emergency Medicine; Visit Provider Radiology Diagnostic Radiology | DX: I51.7 Cardiomegaly (principal); J18.9 Pneumonia, unspecified organism | CPT/HCPCS: 71045 ==

== ENCOUNTER 2024-09-05 16:44 | Outpatient (BNV) | payer MEDICARE, MEDICAID, SELFPAY | END 2024-09-06 07:00 | PROVIDERS: Admitting Provider Student in an Organized Health Care Education/Training Program; Emergency Provider Emergency Medicine; Visit Provider Internal Medicine Cardiovascular Disease | DX: I34.0 Nonrheumatic mitral (valve) insufficiency (principal); I36.1 Nonrheumatic tricuspid (valve) insufficiency | CPT/HCPCS: 93306 ==

== ENCOUNTER → 2024-09-05 16:44 | Outpatient (BNV) | payer MEDICARE, MEDICAID, SELFPAY | PROVIDERS: Admitting Provider Student in an Organized Health Care Education/Training Program; Emergency Provider Emergency Medicine; Visit Provider Hospitalist | DX: J81.0 Acute pulmonary edema (principal); R09.02 Hypoxemia; J90 Pleural effusion, not elsewhere classified; J18.9 Pneumonia, unspecified organism | CPT/HCPCS: 99223 ==

== ENCOUNTER → 2024-09-05 16:44 | Outpatient (BNV) | payer MEDICARE, MEDICAID, SELFPAY | PROVIDERS: Admitting Provider Student in an Organized Health Care Education/Training Program; Emergency Provider Emergency Medicine; Visit Provider Student in an Organized Health Care Education/Training Program | DX: J96.01 Acute respiratory failure with hypoxia (principal); J18.9 Pneumonia, unspecified organism; J90 Pleural effusion, not elsewhere classified; Z78.9 Other specified health status | CPT/HCPCS: 99223; 99232; 99239; G0180 ==

== ENCOUNTER 2024-09-17 09:25 | Outpatient (AMB) | payer MEDICARE, MEDICAID, SELFPAY ==
[2024-09-17 09:57] VITALS: BP 129/60; PULSE 82; O2SAT 95
--- NOTE | 2024-09-17 09:57 | A.OFFVIS_ITS ---
Vital Signs 09/17/24 09:57 Weight 142 lb BP 129/60 Blood Pressure Location Rt brachial Position Sitting Pulse 82 Pulse Source Pulse Oximeter Pulse Oximetry (%) 95 Oxygen Delivery Method Room Air Intake Visit Reasons: ITDD Pump refill Die Presser Required: No Allergies ciprofloxacin [Cipro] Allergy (Unknown, Verified 09/17/24 09:58) Hives levofloxacin [Levaquin] Allergy (Unknown, Verified 09/17/24 09:58) Hives metoclopramide [Reglan] Allergy (Unknown, Verified 09/17/24 09:58) Hives ondansetron [Zofran] Allergy (Unknown, Verified 09/17/24 09:58) Itching penicillin V Allergy (Unknown, Verified 09/17/24 09:58) Hives prochlorperazine [From Compazine] Allergy (Unknown, Verified 09/17/24 09:58) Shortness of Breath Sulfa (Sulfonamide Antibiotics) Allergy (Unknown, Verified 09/17/24 09:58) Hives thalidomide [From Thalomid] Allergy (Unknown, Verified 09/17/24 09:58) Rash haloperidol [From Haldol] Allergy (Verified 09/17/24 09:58) Itching Medication List - Last Reconciled 09/17/24 by Jaylene Asencio, AUT[employer]LLING [employer]ACHINE OPERATOR albuterol sulfate 90 mcg/actuation 2 puffs inhalation Q4-6H PRN apixaban (Eliquis) 5 mg PO BID cefuroxime axetil 500 mg PO BID dicyclomine 10 mg PO QIDACHS diphenhydramine HCl 25 mg IV QID PRN doxycycline hyclate 100 mg PO BID fluticasone furoate-vilanterol 200-25 mcg/dose (Breo Ellipta) 1 inh inhalation Q24H hydromorphone 4 mg PO BID PRN 30 days levetiracetam 700 mg PO BID naloxone 4 mg/actuation (Narcan) 4 mg intranasal Q2M PRN ondansetron HCl (PF) 4 mg IV QID PRN prednisone See Taper mg PO DIRECTED promethazine 25 mg PO QID PRN umeclidinium 62.5 mcg/actuation (Incruse Ellipta) 1 inh inhalation DAILY HPI Comments Details: Brooklyn is in the office today to perform pill count and perform intrathecal pain pump refill. We were planning sprint PNS for this patient however unfortunately she contracted pneumonia and was admitted to the hospital for long period of time. Obviously she presents herself today with gross success of the pills. Pump refill is also as below. Her pump is non opioid pump and delivers only bupivacaine medication. Pill count today: She supposed to have no pills in her possession. She presented with 34 pills in her possession. We decided that I will refill her medication at the beginning of September. I sent a prescription on 09/27/2024. Prior: Brooklyn is 41 years old female who is suffering from multiple medical conditions including Bencet disease, Crohn's disease, she is immunocompromised.? Her pain involves chronic abdominal pain and lower back pain.? She also has a chronic pelvic pain.? She is on chronic oral opioid therapy for 3 years.? [facility] Medical History Enterocutaneous fistula Pulmonary emboli Crohn's disease Chronic, continuous use of opioids Immunosuppression Absence seizure disorder DVT (deep venous thrombosis) Pyloric stenosis Asthma Common variable immunodeficiency Spondylolisthesis, lumbar region Spondylosis of lumbar region without myelopathy or radiculopathy Abdominal pain, chronic, generalized Gastroparesis Spontaneous pneumothorax Chronic pain syndrome Cervicalgia Low back pain Behcet's disease Surgical History History of thoracotomy Hx of gastrostomy History of hernia surgery Family History Father Hairy cell leukemia Social History Household Members: Children Household Members Other:: son Housing: House Do you presently have visiting nurse or other home services: No Unable to assess alcohol history related to: Unknown Alcohol intake: never Patient Tobacco Use Status: Never used Tobacco Second Hand Smoke Exposure: No Advance Directives Date on File: 04/22/23 service: No Current occupational status: unemployed Review of Systems Const All systems reviewed & are unremarkable except as noted in HPI and below Physical Exam Vital Signs: Last Vital Signs Pulse 82 09/17/24 09:57 BP 129/60 09/17/24 09:57 Pulse Ox 95 09/17/24 09:57 Oxygen Delivery Method Room Air 09/17/24 09:57 Const General: cooperative, no acute distress and alert Orientation/consciousness: patient oriented x3 HEENT Head: Yes normocephalic and Yes atraumatic Ears: hearing grossly normal bilaterally Eyes General: appearance normal, both eyes and all related structures Alignment and Position: alignment normal and position normal Periorbital: periorbital findings normal Eyelids: Yes eyelids normal Pupils: Equal, round and reactive pupils present, pupils equal and not dilated EOM: EOMs intact bilaterally Direct Ophthalmoscopy: no photophobia Neck Neck: Yes normal visual inspection and Yes no JVD Resp Effort & Inspection: normal respiratory effort, able to speak in complete sentences and no audible wheezes Cardio Jugular venous distension: no JVD GI Inspection: Yes incision and Yes scar Back/Spine/Pelvis Other: Tenderness on palpation in projection of the paraspinal spinal region L3-L4-L5 area. Test is positive bilaterally. Misael test is equivocal and pelvic compression test is negative. Cervical Spine: normal cervical lordosis Thoracic/Lumbar Spine: thoracic and lumbar spine normal to inspection Neuro General: patient oriented x3, gait normal and moves all extremities Cranial nerves: Yes Equal, round and reactive pupils present Assessment & Plan Assessment & Plan (1) Cervicalgia: Code(s): M54.2 - Cervicalgia Category: Medical Plan: (2) Behcet's disease: Code(s): M35.2 - Behcet's disease Category: Medical Plan: (3) Low back pain: Code(s): M54.5 - Low back pain Category: Medical (4) Chronic abdominal pain: Code(s): R10.9 - Unspecified abdominal pain; G89.29 - Other chronic pain Category: Medical Plan: ? Intrathecal pump refill. The patient came today in the office for the change of the medication in the pain pump. The name and date of were verified and informed consent was obtained for the procedure. The pump was interrogated and the residual amount of fluid was found to be 13.4 mL. SHE WAS POSITIONED prone on the bed AND THE AREA OF THE INTRATHECAL PUMP WAS PREPPED WITH CHLORAPREP. The fenestrated drape was sterilely applied over the area of the pump. Sterile gloves were worn and of the aspiration system was assembled containing 2 in 22 gauge noncoring needle, the needle was connected to extension tubing which was connected to the 20 cc sterile syringe. The pain pump was palpated under the skin in the patient's left buttock area. The needle was inserted through the skin and the central plug of the pain pump and fluid was aspirated. The clear fluid was going into the syringe the total amount of the fluid was 13.0 mL .. After that a new batch? of medication was obtained which was containing bupivacaine in the concentration of 28 milligrams/mL.. The admixture was made in 20 cc syringe prepared by [facility] compounding pharmacy. The syringe was connected to the bacterial filter, and then connected to the extension tubing. After that the medication in the syringe was slowly instilled into the pump with aspirations at 15 and 5 cc joiner.? The pump was reprogrammed continuous dose of 1.4 mg a day as well as for possible administrations per day of bupivacaine 1.699 mg every 4 hours 4 times a day with the length of the time of the administration of each PTM dose at 59 minutes (5) Postdural puncture headache: Code(s): G97.1 - Other reaction to spinal and lumbar puncture Category: Medical Plan We were planning to perform sprint PNS for this patient however she recently contracted pneumonia and was in the hospital for long period of time. She presents today with excess of the pills. I will refill her medications on 09/27/2024. The pump refill is as above. Next refill in 60 days. The concentration of the medication will be the same bupivacaine 28 mg per mL. Medications: Refilled hydromorphone Partial fill per patient's request only 4 mg PO BID PRN 60 tabs 0RF severe pain (scale score 7-10) 30 days F11.90 - Opioid use, unspecified, uncomplicated, G89.29 - Other chronic pain, G89.4 - Chronic pain syndrome, R10.9 - Unspecified abdominal pain Coding Level of Care Code Est Pt Level 3 (14759) Procedure Only Diagnoses Cervicalgia M54.2 Behcet's disease M35.2 Low back pain M54.5 Chronic abdominal pain R10.9; G89.29 Postdural puncture headache G97.1
--- OUTSIDE RECORDS SUMMARY | 2024-09-17 10:26 | XMS_ITS | Patient Health Record ---
Author Organization [facility] Address [address] [place] [address] Care Team Providers Care Director Of Surgery Name Role Phone Octavio Uriarte Primary Care Provider Reason For Referral No Information Plan Of Treatment No Information Insurance Providers Payer Name Payer Address Payer Phone Subscriber Number Group Number Insured Name Patient Relationship to Insured Coverage Start Date Coverage End Date [place] [employer] [address] [place] [address] [id number] Brooklyn Chavez Self - patient is the insured
== END 2024-09-17 10:00 | disposition home or self-care (01) ==
LOC: HO.PMC 09:25
PROVIDERS: PCP Internal Medicine; Visit Provider Anesthesiology
DX: M54.2 Cervicalgia (principal); M35.2 Behcet's disease; M54.50 Low back pain, unspecified; G97.1 Other reaction to spinal and lumbar puncture; Z45.1 Encounter for adjustment and management of infusion pump; R10.9 Unspecified abdominal pain; G89.29 Other chronic pain
CPT/HCPCS: 62370; 99213

== ENCOUNTER → 2024-09-17 09:25 | Outpatient (BNVA) | payer MEDICARE, MEDICAID, SELFPAY | PROVIDERS: PCP Internal Medicine; Visit Provider Anesthesiology | DX: Z13.89 Encounter for screening for other disorder (principal) | CPT/HCPCS: 62370; 99212 ==

== ENCOUNTER → 2024-09-17 10:10 | Outpatient (BNV) | payer MEDICARE, MEDICAID, SELFPAY | PROVIDERS: PCP Internal Medicine; Visit Provider Radiology Diagnostic Radiology | DX: Z87.01 Personal history of pneumonia (recurrent) (principal) | CPT/HCPCS: 71045 ==

== ENCOUNTER 2024-09-17 10:11 | Outpatient (REF) | payer MEDICARE, MEDICAID, SELFPAY ==
--- NOTE | ~2024-09-17 | XR_ITS ---
CLINICAL HISTORY: re-eval pneumonia 1 view chest x-ray Comparison: CR/ME/SR - XR CHEST 1V - 09/07/24 07:28 EDT CR/SR - XR CHEST 1V - 09/05/24 11:18 EDT Findings: The lungs are clear. Heart size is normal. No acute fracture. IMPRESSION: 1. No acute findings. This document has been electronically signed by: Priti Martinez MD on 09/19/2024 15:55:10
== END 2024-09-17 10:12 | disposition home or self-care (01) ==
LOC: HO.XRAY 10:11
PROVIDERS: PCP Internal Medicine; Visit Provider Nurse Practitioner Acute Care
DX: J10.1 Influenza due to other identified influenza virus with other respiratory manifestations (principal); J18.9 Pneumonia, unspecified organism; J90 Pleural effusion, not elsewhere classified
CPT/HCPCS: 71045

== ENCOUNTER 2024-09-20 10:25 | Outpatient (AMB) | payer MEDICARE, MEDICAID, SELFPAY ==
[2024-09-20 10:33] VITALS: BP 116/72; PULSE 91; O2SAT 95; BMI 27.3
--- NOTE | 2024-09-20 10:33 | A.OFFVIS_ITS ---
Vital Signs 09/20/24 10:33 Height 5 ft Weight 139 lb 15.896 oz BMI 27.3 BP 116/72 Blood Pressure Location Lt brachial Position Sitting Pulse 91 Pulse Source Pulse Oximeter Pulse Oximetry (%) 95 Oxygen Delivery Method Room Air Intake Visit Reasons: ? Empyema/[facility] DC Follow Up Tourist Adviser Required: No Accompanied by: Self / Same As Patient Allergies ciprofloxacin [Cipro] Allergy (Unknown, Verified 09/20/24 10:37) Hives levofloxacin [Levaquin] Allergy (Unknown, Verified 09/20/24 10:37) Hives metoclopramide [Reglan] Allergy (Unknown, Verified 09/20/24 10:37) Hives ondansetron [Zofran] Allergy (Unknown, Verified 09/20/24 10:37) Itching penicillin V Allergy (Unknown, Verified 09/20/24 10:37) Hives prochlorperazine [From Compazine] Allergy (Unknown, Verified 09/20/24 10:37) Shortness of Breath Sulfa (Sulfonamide Antibiotics) Allergy (Unknown, Verified 09/20/24 10:37) Hives thalidomide [From Thalomid] Allergy (Unknown, Verified 09/20/24 10:37) Rash haloperidol [From Haldol] Allergy (Verified 09/20/24 10:37) Itching HPI Comments Details: The patient is a 44-year-old female with a PMH significant for?hx of DVT/PE on Eliquis, Crohn's disease on chronic TPN, Behcet's disease, hx of chylothorax, chronic SVC obstruction, and chronic pain syndrome who presents to the ED for evaluation of worsening SOB?and difficulty breathing since discharge from the hospital yesterday. Pt had a prolonged and complicated hospital stay from 08/20- 09/04 where she was initially treated for abdominal pain secondary to norovirus, but hospital course was complicated when she became hypoxic and tested positive for flu and CT showed right lower lobe pneumonia with parapneumonic effusion and loculation suggestive of empyema. IR found fluid collection too small to drain, and pt was initially scheduled to undergo decortication though that was held after additional consideration. Pt underwent bronchoscopy with therapeutic cleansing, brushing, and washing by pulmonology with improvement. Pt underwent home O2 evaluation and was discharged on 3L NC as well as cefuroxime and doxycycline p.o.. Pt reports SOB, LAINEZ, and cough worsened after getting home but she initially attempted to see if she improved overnight. When symptoms worsened in the morning she decided to come back to the hospital for further evaluation. Some pleuritic chest pressure/tightness. Chills but no measured fever. In the ED, he CXR, personally reviewed by me, showed mild interstitial pulmonary edema, unchanged right basilar consolidation suggesting pneumonia, and loculated effusion in major fissure on right. Lasix 40 mg IV, and ceftriaxone and azithromycin. Pt admitted to the hospital for treatment and further evaluation of acute on chronic hypoxic respiratory failure in the setting of pneumonia that failed outpatient therapy vs question of CHF. Currently the patient feels a little better. She is on the oxygen. She is still having congestion difficult for her to clear his own secretions. 09/20/2024 the patient is here for hospital follow-up visit. She was initially evaluated in the hospital after developing pneumonia with a loculated pleural effusion. The patient did not require surgery and was too small to tap. Seems like it has been clearing. And she went back to the hospital pulmonary edema. She did have an echocardiogram which is reassuring. In addition to that she was discharged on oxygen. She has been having hard time carrying the oxygen tanks specially since she is already carrying a backpack. [facility] supplies for her TPN. During the office visit we did go for brief walking oximetry and she was able to do well on the 2 L pulse. Therefore I will send a revision order to [facility] for her oxygen in order to have a portable oxygen concentrator 2 L pulse with activity and then she can use the concentrator in the home 2 L for activity and sleep. She needs better portability outside of the home. And the POC will provide that. In addition to that she needs to get a nebulizer. Nebulizer from [facility] was requested but she never got it. Therefore, I will give her [facility] nebulizer from here and will let them know that we have given it to them and put an order in to make sure that she is under contract with [facility] for that. She can use it twice a day for her chest tightness and chest congestion and wheezing. The patient did have a chest x-ray prior to discharge. She still had a little small pleural effusion on the left although was minimal. Will plan to repeat the chest x-ray prior to the next visit in 2-3 months. She will continue to use the Breo for now. She also continue her other medications as prescribed. She needs to be set up with Rheumatology. She had seen previous rheumatology here in the past. I will put a referral in to have her stay within the system. [facility] Medical History (Updated 09/20/24 @ 15:51 by Erwin Ricketts MD) ILD (interstitial lung disease) Enterocutaneous fistula Pulmonary emboli Crohn's disease Chronic, continuous use of opioids Immunosuppression Absence seizure disorder DVT (deep venous thrombosis) Pyloric stenosis Asthma Common variable immunodeficiency Spondylolisthesis, lumbar region Spondylosis of lumbar region without myelopathy or radiculopathy Abdominal pain, chronic, generalized Gastroparesis Spontaneous pneumothorax Chronic pain syndrome Cervicalgia Low back pain Behcet's disease Surgical History History of thoracotomy Hx of gastrostomy History of hernia surgery Family History Father Hairy cell leukemia Social History Household Members: Children Household Members Other:: son Housing: House Do you presently have visiting nurse or other home services: No Unable to assess alcohol history related to: Unknown Alcohol intake: never Patient Tobacco Use Status: Never used Tobacco Second Hand Smoke Exposure: No Advance Directives Date on File: 04/22/23 service: No Current occupational status: unemployed Review of Systems Const Denies chills, Denies daytime sleepiness, Denies fatigue, Denies fever(s), Denies poor appetite, Denies snoring, Denies stops breathing during sleep, Denies weakness, Denies weight gain and Denies weight loss Eyes Denies loss of vision ENT Denies dizziness and Denies hearing loss Card Denies chest pain, Denies irregular heart rhythm, Denies claudication, Denies leg edema, Denies lightheadedness, Denies palpitations, Reports dyspnea on exertion and Denies orthopnea Resp Reports cough, Denies excessive phlegm production, Reports dyspnea on exertion, Denies snoring and Denies wheezing GI Denies hematochezia, Denies nausea and Denies vomiting Denies urinary frequency and Denies dysuria Musc Denies arthralgias, Denies muscle weakness, Denies numbness and Denies other Skin/Breast Denies nail changes and Denies rash Neuro Denies Abnormal speech present, Denies dizziness, Denies loss of vision, Denies memory loss, Denies numbness and Denies weakness Psych Denies depression and Denies memory loss Endo Denies fatigue and Denies palpitations Shaheed/Lymph Denies easy bruising Aller/Immun Denies wheezing Physical Exam Vital Signs: Last Vital Signs Pulse 91 09/20/24 10:33 BP 116/72 09/20/24 10:33 Pulse Ox 95 09/20/24 10:33 Oxygen Delivery Method Room Air 09/20/24 10:33 BMI result Body Mass Index 27.3 Last Vital Signs Temp 97.9 F 09/06/24 07:39 Pulse 62 09/06/24 08:21 Resp 20 09/06/24 08:21 BP 98/47 L 09/06/24 07:39 Pulse Ox 100 09/06/24 07:39 O2 Del Method Nasal Cannula 09/06/24 07:39 O2 Flow Rate 2.5 09/06/24 07:39 Oxygen Flow Rate 3 09/05/24 12:00 BMI result Body Mass Index 28.5 Const General: alert, awake and tired appearing Eyes Sclerae: sclerae normal EOM: EOMs intact bilaterally Neck Neck: Yes no lymphadenopathy, Yes trachea midline and Yes supple Chest Chest palpation & inspection: normal inspection of the chest Resp Effort & Inspection: normal respiratory effort Auscultation: no crackles, no rhonchi and diminished lung sounds Cardio Rate: regular rate Rhythm: regular rhythm Heart sounds: no gallops, no murmurs and no rubs GI Palpation (GI): Soft to palpation and Other GI palpation findings present ( Nontender) Auscultation: normal bowel sounds Neuro Speech: No Abnormal speech present Extrem General: Yes no pedal edema, No clubbing and No cyanosis Office Procedures 6 Minute Walk Time:: 15:53 SPO2 % at rest: 94 Pulse at rest: 78 SPO2 % during excercise: 87 Pulse during excercise: 98 Supplemental Oxygen: placed on 2l/pulse with activity improving her pox 92% with activity 60602 - 6 Minute Walk Assessment & Plan Assessment & Plan (1) Behcet's disease: Code(s): M35.2 - Behcet's disease Category: Medical (2) Pulmonary emboli: Code(s): I26.99 - Other pulmonary embolism without acute cor pulmonale Category: Medical (3) ILD (interstitial lung disease): Code(s): J84.9 - Interstitial pulmonary disease, unspecified Category: Medical (4) Pneumonia: Code(s): J18.9 - Pneumonia, unspecified organism Category: Medical Qualifiers: Pneumonia type: due to unspecified organism Laterality: unspecified laterality Lung location: unspecified part of lung Qualified Code(s): J18.9 - Pneumonia, unspecified organism Plan Continue Breo MARVIN as needed Needs a Nebulizer for albuterol Oxygen revision: POC 2L/pulse for portability outside of the home, 2L/min while sleeping repeat CXR Will need additional imaging to assess for ILD in the future Rheumatology referral to have her re-establish at [facility] F/U 2-3 months Orders: Referrals Rheumatology Referral M35.2 - Behcet's disease Coding Level of Care Code Est Pt Level 5 (08843) Diagnoses Behcet's disease M35.2 Pulmonary emboli I26.99 ILD (interstitial lung disease) J84.9 Pneumonia due to infectious organism, unspecified laterality, unspecified part of lung J18.9 Pneumonia type: due to unspecified organism Laterality: unspecified laterality Lung location: unspecified part of lung CPT Codes Coding ([id number]) Time Spent (min) 45
--- OUTSIDE RECORDS SUMMARY | 2024-09-20 11:53 | XMS_ITS | Patient Health Record ---
Author Organization [facility] Center Address [address] [place] [address] Care Team Providers Care Derrick Helper Name Role Phone Octavio Uriarte Primary Care Provider Reason For Referral No Information Plan Of Treatment No Information Insurance Providers Payer Name Payer Address Payer Phone Subscriber Number Group Number Insured Name Patient Relationship to Insured Coverage Start Date Coverage End Date [place] [employer] [address] [place] [phone] [id number] Brooklyn Chavez Self - patient is the insured
[2024-09-20 15:54] VITALS: PULSE 78; O2SAT 94
== END 2024-09-20 11:09 | disposition home or self-care (01) ==
LOC: HO.HPS 10:26
PROVIDERS: PCP Internal Medicine; Visit Provider Hospitalist
DX: I26.99 Other pulmonary embolism without acute cor pulmonale (principal); J84.9 Interstitial pulmonary disease, unspecified; M35.2 Behcet's disease
CPT/HCPCS: 94618; 99215

== ENCOUNTER → 2024-09-20 10:25 | Outpatient (BNVA) | payer MEDICARE, MEDICAID, SELFPAY | PROVIDERS: PCP Internal Medicine; Visit Provider Hospitalist | DX: M35.2 Behcet's disease (principal); I26.99 Other pulmonary embolism without acute cor pulmonale; J84.9 Interstitial pulmonary disease, unspecified; J18.9 Pneumonia, unspecified organism; Z79.01 Long term (current) use of anticoagulants; Z99.81 Dependence on supplemental oxygen; Z86.718 Personal history of other venous thrombosis and embolism | CPT/HCPCS: 94618; 99212 ==

== ENCOUNTER 2024-10-16 06:54 | Outpatient (REF) | payer MEDICARE, MEDICAID, SELFPAY ==
--- NOTE | ~2024-10-16 | FL_ITS ---
EXAMINATION: FL GUIDANCE ONLY HISTORY: M54.59 - Other low back pain COMPARISON: None available. TECHNIQUE: Fluoroscopy time: 0.3 minutes. Cumulative Dose: 3.07 mGy. DAP: 0.0525 mGym2 Images: 2. FINDINGS: AP and lateral fluoroscopic spot films of the neck demonstrate a lead in place on the right. FL/FL guidance in treatment room IMPRESSION: Fluoroscopy during procedure. Please see procedure report for additional information. Electronically signed by: Mohan Mckenna MD 10/16/2024 03:41 PM EDT
--- OUTSIDE RECORDS SUMMARY | 2024-10-16 06:58 | XMS_ITS | Data Portability ---
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 Pt reports on Tuesday04/27/20 she went to [place] for abdominal pain, urine was tested [...] breathing unlabored Abd soft, tender LLQ, (-) [place] & Psoas signs, no rebound tenderness (+) [...] I have accessed patient records on the [employer]. This information was pertinent in my medical decision making today. Time On Scene with Patient: 00:00:15 [email or web address] Not available 04/30/2020 14:10:35 12/11/2020 12/11/2020 Overview/History :Magali pretty is a 40-year-old female that is known to [facility], she was discharged home from the hospital yesterday. She was seen by GI during her hospitalization, she does have a history of Crohn's and gastro paresis. She contacted [facility] with complaints of dizziness and nausea. She [...] further work up on the end of [facility]. Plan/Discussion:I discussed with the patient that I [...] after care of this patient according to [facility] infection prevention protocols. Time On Scene with Patient: 00:46:48 Time On Scene with Patient: 00:46:48 [email or web address] Not available 12/11/2020 15:15:43 12/31/2020 12/31/2020 Overview/History : This is a 40-year-old female who is known to [facility], with a past medical history of DVTs & pulmonary embolism currently on Eliquis, Behcet's disease, Crohn's disease, gastroparesis, common variable immune deficiency, and followed by the pain clinic- on Morphine for chronic abdominal pain. Pt reports recently seen in [place] [facility] for abdominal pain. She continues to [...] care were discussed with the Virtual Physician director of corporate communications for [facility]- Dr. Leon who agrees patient needs to go to ED for nutrition and fluids and to be seen again by GI specialist. The patient understood and agreed with this plan. The patient was given discharge instructions and all questions were answered prior to team departure. [email or web address] Not available 01/02/2021 11:51:51 04/26/2021 04/26/2021 Brief [...] Ambulatory with steady gait Work up/Results: Reviewed [facility] ER records DDx considered & Medical Decision [...] I have accessed patient records on the [employer] patient portal. This information was pertinent in my medical decision making today. Proper Personal Protective Equipment (PPE), including gloves, surgical mask were donned and doffed appropriately and all equipment cleaned using approved technique with germicidal disposable wipes prior to and after care of this patient according to [facility] infection prevention protocols. Time On Scene with Patient: 00:25:23 [email or web address] Not available 04/26/2021 19:41:52 01/25/2022 01/25/2022 Overview/History : 41 year old female known to but new to provider with a history of DVT/PE on Eliquis, asthma, Bachets Dx, chronic gastroparesis with home TPN therapy via port, immune deficiency seen today for not feeling well after dx with UTI at [facility] late last night/early this am. Went [...] did not have childcare coverage. Went to [place] ER last night for headache, acute on [...] at approximately 2am (now 215pm). 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 Pt showed [...] not limited to: -UTI: per pt with [place] ED, culture pending -Dehydration: considered as cause of headache with normal BYN/Cr on labs though -Sinusitis: considered with frontal headache but no rhinorrhea, URI signs -Acute on chronic abd pain/gastroparesis flare Work up/Results: None indicated; pt needs to fiber picker prescribed meds as due for antibiotic Plan/Discussion: UTI -Increase fluids as tolerated to improve UTI and headache; use in conjunction with IV zofran - supervisor typesetting antibiotics (Macrobid and pyridium) -Take Excedrin scheduled [...] Go To The Location Of Their Choice, [id number] 1 12:36:46 urinalysis, dipstick [address] - [place], [address] [place] [address] [place], [address], 0 11:32:18 culture, urine - [facility] 2019 [place] [facility] (Centralized Electronic Ordering - All Locations), Patient Can Go To The Location Of Their Choice, [id number] 0 10:13:17 Referral None recorded. Procedures None recorded. Surgeries None recorded. Imaging None recorded. Medication Orders nitrofurant oin monohydrate /macrocryst als 100 mg capsule 2020 [facility][id number], [address] [facility] , [place], [address], 19:32:33 Patient TargetsNo targets recorded. Patient Instructions Encounter Date Encounter Id Patient Instructions Last Modified By Organization Details Last Modified Time 04/30/2020 [id number] We tested your urine today, there is [...] in your condition between 8am-10pm, please call [facility] at [phone] to help navigate your care. [email or web address] Not available 04/30/2020 11:32:17 12/31/2020 [id number] Care escalated t o ED Not available 12/31/2020 14:39:34 04/26/2021 [id number] URINARY TRACT INFECTION INSTRUCTIONS BASIC INFORMATION Urinary [...] in your condition between 8am-10pm, please call [facility] at [phone] to help navigate your care. [email or web address] Not available 04/26/2021 19:41:58 01/25/2022 [id number] --You were seen today for ongoing headache, acute on chronic left abdominal pain with negative cat scan -You were diagnosed with UTI in ER; fiber picker your antibiotics and pyridium -Increase your water [...] Go To The Location Of Their Choice, [id number] 05/02/2020 10:13:17 04/30/2005/01/2020 cultu re, urine special requests NONE Not Available [facility] (Centralized Electronic Ordering - All Locations) Patient Can Go To The Location Of Their Choice, [id number] 05/02/2020 10:13:17 04/30/2005/02/2020 cultu re, urine culture <10,00 0 COL/ML abnormal Not Available [facility] (Centralized Electronic Ordering - All Locations) Patient Can Go To The Location Of Their Choice, [id number] 05/02/2020 10:13:17 04/30/2005/02/2020 cultu re, urine report status FINAL 2019 Not Available [facility] (Centralized Electronic Ordering - All Locations) Patient Can Go To The Location Of Their Choice, [id number] 05/02/2020 10:13:17 04/30/20 20 04/30/2020 urina lysis , dipst ick Appearance clear Not Available Spr - [facility]me [address], [place], [address], 04/30/2020 11:29:27 04/30/20 20 04/30/2020 urina lysis , dipst ick Color yellow Not Available Spr - Home [address] [place], [address], 04/30/2020 11:29:27 04/30/20 20 04/30/2020 urina lysis , dipst ick Glucose negati ve Not Available Spr - Home [address], [place], [address], 04/30/2020 11:29:27 04/30/20 20 04/30/2020 urina lysis , dipst ick Bilirubin negati ve Not Available Spr - Home [address], [place], [address], 04/30/2020 11:29:27 04/30/20 20 04/30/2020 urina lysis , dipst ick Ketones NEG Not Available Spr - Home [address] [place], [address], 04/30/2020 11:29:27 04/30/20 20 04/30/2020 urina lysis , dipst ick Sp. [place] 1.030 Not Available Spr - Home [address] [place], [address], 04/30/2020 11:29:27 04/30/20 20 04/30/2020 urina lysis , dipst ick Blood + Not Available Spr - Home [address] [place], [address], 04/30/2020 11:29:27 04/30/20 20 04/30/2020 urina lysis , dipst ick pH 5.0 Not Available Spr - Home [address] [place], [address], 04/30/2020 11:29:27 04/30/20 20 04/30/2020 urina lysis , dipst ick Protein negati ve Not Available Spr - Home [address] [place], [address], 04/30/2020 11:29:27 04/30/20 20 04/30/2020 urina lysis , dipst ick Urobilirubin negati ve Not Available Spr - Home [address] [place], [address], 04/30/2020 11:29:27 04/30/20 20 04/30/2020 urina lysis , dipst ick Nitrites NEG Not Available Spr - [facility] [address] [place], [address], 04/30/2020 11:29:27 04/30/20 20 04/30/2020 urina lysis , dipst ick Leukocytes NEG Not Available Spr - H [facility]me [address] [place], [address], 04/30/2020 11:29:27 04/26/20 21 04/27/2021 URINE CULTU RE specimen description URINE Not Available [facility] (Centralized Electronic Ordering - All Locations) Patient Can Go To The Location Of Their Choice, [id number] 05/01/2021 19:07:04 04/26/20 21 04/27/2021 URINE CULTU RE special requests NONE Not Available [facility] (Centralized Electronic Ordering - All Locations) Patient Can Go To The Location Of Their Choice, [id number] 05/01/2021 19:07:04 04/26/20 21 04/28/2021 URINE CULTU RE culture NO GROWTH Not Available [facility] (Centralized Electronic Ordering - All Locations) Patient Can Go To The Location Of Their Choice, [id number] 05/01/2021 19:07:04 04/26/20 21 04/28/2021 URINE CULTU RE report status FINAL 2020 Not Available [facility] (Centralized Electronic Ordering - All Locations) Patient Can Go To The Location Of Their Choice, [id number] 05/01/2021 19:07:04 Result Notes None recorded. Problems Name Problem SNOMED Code Status Onset Date Resolution Date Notes Provider Name and Address Organization Details Recorded Time Gastroparesi s syndrome 517680846 Active 2018 ELAINE PEREZ NP [address], [facility] [place], [address], [place] [facility] 9 13:12:39 Behcet's syndrome 189141803 Active 2019 America Ferrera NP [address], [place], [address], [place] [facility] 0 21:06:32 Deep venous thrombosis 434287589 Active 2019 America Ferrera NP [address], [place], [address], [place] [facility] 0 21:06:41 Pulmonary embolism 28273348 Active 2019 America Ferrera NP [address], [place], [address], [place] [facility] 0 21:06:53 Crohn's disease 18932390 Active 2019 America Ferrera NP [address], [place], [address], [place] [facility] 0 21:46:14 Problem Notes None recorded. Procedures Surgical History Date Name Laterality Status Provider Name and Address Organization Details Recorded Time 01/26/20 22 Medication Review completed Mirlande Schmidt NP [address], [place], [address], [place] [facility] 01/25/2022 15:08:05 01/01/20 21 Medication Review completed Tete Escalante NP [address], [place], [address], [place] [facility] 12/31/2020 13:43:54 05/20/20 19 Venipuncture - DH completed ELAINE PEREZ NP [address], [place], [address], [place] [facility] 05/24/2019 12:06:55 05/20/20 19 ECG Interpretation - DH completed ELAINE PEREZ, NETWORK SYSTEMS INTEGRATOR [address], [place], [address], [place] [facility] 05/20/2019 20:46:01 Port, indwelling, imp completed ANDREWS HUNTLEY, PEARL [address], [place], [address], [place] [facility] 04/26/2021 19:09:01 Remove tonsils [...] repair w/mesh completed HARJINDER UNGER NP [address] [facility], [place], [address], [place] [facility] 02/24/2019 09:17:51 Imaging Results None recorded. Procedure Notes None recorded. Medical Equipment None Reported. Allergies Allergen ID Allergen Name Allergen Category Reaction Reaction Severity Criticality Documentation Date Start Date Code Code System Note Provider Name and Address Organization Details Recorded Time 86051 Product containin g penicilli n (product) medicatio n rash Not available Not available 01/13/2019 14575 8001 SNOMED Nora more-e rickso null[place] [facility] 9 13:37:49 41509 Bactrim medicatio n rash Not available Not available 01/13/2019 99896 9 RxNorm Nora more-e rickso null, [place] [facility] 9 13:37:49 30015 Reglan medicatio n rash Not available Not available 01/13/2019 9230 RxNorm Nora more-e rickso null, [place] [facility] 9 13:37:49 36241 Cipro medicatio n rash Not available Not available 01/13/201998340 3 RxNorm Nora more-e rickso null, [place] [facility] 9 13:37:49 68885 thalidomi de medicatio n hives Not available Not available 01/13/2019 42725 RxNorm Nora more-e rickso null, [place] [facility] 9 13:37:49 00892 Avelox medicatio n rash Not available Not available 01/13/2019 80568 6 RxNorm Nora more-e rickso null, [place] [facility] 9 13:37:49 28551 Compazine medicatio n rash Not available Not available 01/13/201901052 6 RxNorm Nora more-e rickso null, [place] [facility] 9 13:37:49 06179 penicilla mine medicatio n Not available Not available Not available 02/24/2019 7975 RxNorm HARJINDER UNGER, NETWORK SYSTEMS INTEGRATOR [address] [place], [address], [place] [facility] 9 09:14:07 83316 Bactrim medicatio n Not available Not available Not available 02/24/2019 27188 9 RxNorm ELAINE PEREZ , PEARL [address] [place], [address], [place] [facility] 9 13:11:15 91582 Reglan medicatio n Not available Not available Not available 02/24/2019 9230 RxNorm ELAINE PEREZ , PEARL [address] [place], [address], [place] [facility] 9 13:11:30 65554 Cipro medicatio n Not available Not available Not available 02/24/201951431 3 RxNorm ELAINE PEREZ , PEAR[place] [address] [place], [address], [place] [facility] 9 13:11:19 84712 thalidomi de medicatio n Not available Not available Not available 02/24/2019 60335 RxNorm ELAINE PEREZ , NETWORK SYSTEMS INTEGRATOR [address], [place], [address], [place] [facility] 9 13:11:36 99616 Avelox medicatio n Not available Not available Not available 02/24/2019 79061 6 RxNorm ELAINE PEREZ , NETWORK SYSTEMS INTEGRATOR [address], [place], [address], [place] [facility] 9 13:11:11 78895 Compazine medicatio n Not available Not available Not available 02/24/2019 67529 6 RxNorm ELAINE PEREZ , NETWORK SYSTEMS INTEGRATOR [address], [facility] [place], [address], [place] [facility] 9 13:11:23 23387 Levaquin medicatio n Not available Not available Not available 02/24/2019 52604 2 RxNorm HARJINDER UNGER, NETWORK SYSTEMS INTEGRATOR [address], [place], [address], [place] [facility] 9 09:14:57 14781 Zofran medicatio n Not available Not available Not available 02/24/2019 31335 RxNorm HARJINDER UNGER, NETWORK SYSTEMS INTEGRATOR [address], [facility] [place], [address], [place] [facility] 9 [...] Not Available Not Available Vitals Date Recorded Oxygen saturation Oxygen saturation in Arterial blood by Pulse oximetry Heart rate Respiratory rate Body temperature Systolic And Diastolic Systolic And Diastolic Systolic And Diastolic Systolic And Diastolic Provider Name and Address Organization Details Last Updated DateTime 1 98 % 98 % 65 /min 18 /min 97.3 [degF] 122/66 mm[Hg] 120/70 mm[Hg] 118/66 mm[Hg] 112/64 mm[Hg] Not Available [facility] 1 14:30:28 Date Recorded Respiratory rate Oxygen saturation Oxygen saturation in Arterial blood by Pulse oximetry Heart rate Body temperature Systolic And Diastolic Provider Name and Address Organization Details Last Updated DateTime 1 18 /min 93 % 93 % 60 /min 97.7 [degF] 74/40 mm[Hg] Not Available [facility] 1 14:14:28 Date Recorded Oxygen saturation Oxygen saturation in Arterial blood by Pulse oximetry Heart rate Respiratory rate Body temperature Systolic And Diastolic Provider Name and Address Organization Details Last Updated DateTime 2 95 % 95 % 80 /min 18 /min 97.3 [degF] 112/66 mm[Hg] Not Available [facility] 2 14:03:13 Date Recorded Body temperature Heart rate Respiratory rate Oxygen saturation Oxygen saturation in Arterial blood by Pulse oximetry Systolic And Diastolic Provider Name and Address Organization Details Last Updated DateTime 1 97.8 [degF] 90 /min 20 /min 97 % 97 % 110/70 mm[Hg] Not Available [facility] 1 19:13:37 Date Recorded Body temperature Heart rate Respiratory rate Oxygen saturation Oxygen saturation in Arterial blood by Pulse oximetry Systolic And Diastolic Provider Name and Address Organization Details Last Updated DateTime 0 97.4 [degF] 64 /min 16 /min 99 % 99 % 110/64 mm[Hg] Not Available [facility] 0 11:19:12 Social History Question Answer Notes LastModified by Organizat ion Details LastModified Time Tobacco Smoking Status Never Smoker HARJINDER UNGER NP [address] [place], [address], [place] [facility] 02/24/2019 09:16:56 Drugs Abused [...] available 02/24 09:16:42 Medical History Condition Response Coronary Artery Disease N COPD N Depression N Cancer N Stroke N High Cholesterol N Kidney Disease N Diabetes N Asthma Y Pulmonary Embolism Y Hypertension N Gynecological HistoryNo gynecological history recorded. Obstetrics History GPAL:G 0 P 0 0 0 0 Past Encounters Encounter ID Performer Location Encounter Start Date Encounter Closed Date Diagnosis/Indication Diagnosis SNOMED-CT Code Diagnosis ICD10 Code Diagnosis Note [id number] HARJINDER UNGER NP [facility] [address] [place] [address] 01/13/2019 15:41:39 01/15/2019 13:01:16 Contusion of upper arm 40387993 S40.029A [id number] HARJINDER UNGER NP [facility] [address] [place] [address] 02/24/2019 09:01:29 02/26/2019 13:15:01 Pain in throat 167321664 R07.0 Candidiasis of mouth 797 82386 B37.0 Called Pharmacist to add1 part Diphenhydr amine 12.5 mg/5 mL1 part Viscous lidocaine 2%1 part MaaloxPT will take 5ml QID swish and swallow. Pharyngitis 832067283 J0 2.9 [id number] ELAINE PEREZ NP [facility] [address] [place] [address] 04/16/2019 13:10:41 04/16/2019 20:09:51 Urinary tract infectious disease 61966057 N39.0 [id number] NIVIA CAMPBELL [facility] [address] [place] [address] 04/18/2019 15:47:19 04/20/2019 11:55:41 Fever 793037680 R50.9 Lower abdominal pain 545 51271 R10.30 Acute urin doris tract infection 431218583 N39.0 Headache 60989332 R51 Nausea 641290779 R11.0 [id number] ELAINE PEREZ NP [facility] [address] [place] [address] 05/20/2019 20:06:21 05/22/2019 10:30:18 Headache 14321474 R51 Syncope and collapse 309 609271 R55 Long-term current use of anticoagulant 033284060 Z79.01 [id number] NIVIA DIAZ [facility] [address] [place] [place] [address] 07/29/2019 11:17:51 07/31/2019 18:23:01 Dizziness present 401145305 R42 Viral gastroenteritis 11 9904032 A08.4 Orthostati c hypotension 43953405 I95.1 Diarrhea 54872511 R19.7 [id number] Americaj luis Ferrera NP [facility] [address] [place] [address] 03/20/2020 21:03:52 03/21/2020 14:55:42 Diarrhea 95862319 R19.7 Overview/H istory: Patient is a 39 [...] sent to lab for confirmati on Dehydration 30991375 E86 .0 Abdominal pain 03652728 R10.9 Urinary tr act infectious disease 51852000 N39.0 [id number] Tete Escalante, NETWORK SYSTEMS INTEGRATOR [facility] [address] [place] [address] 04/30/2020 11:13:21 04/30/2020 14:15:49 Flank pain 976080967 R10.9 [id number] NAZANIN TOMASZ, NETWORK SYSTEMS INTEGRATOR [facility] [address] [place] [address] 12/11/2020 14:07:27 12/19/2020 16:56:53 Nausea 132143058 R11.0 Dizziness 702374790 R42 [id number] Tete Escalante, NETWORK SYSTEMS INTEGRATOR [facility] - [facility] [address] [place] [address] 12/31/2020 13:18:40 01/01/2021 19:35:42 Dehydration 89123748 E86.0 Abdominal pain 03958598 R10.9 [id number] ANDREWS HUNTLEY, NETWORK SYSTEMS INTEGRATOR SPR - [facility] [address] [place] [address] 04/26/2021 19:07:16 04/30/2021 11:12:07 Acute urinary tract infection 256480552 N39.0 [id number] Mirlande Schmidt, NETWORK SYSTEMS INTEGRATOR [facility] [address] [place] [address] 01/25/2022 13:57:56 01/27/2022 19:23:10 Gastroparesis syndrome 986900608 K31.84 Acute on chronic Acute urin doris tract infection 115315559 N39.0 Health Concerns Section Related Observation LastModified by Organization Detai ls LastModified Time None Recorded Concern Status LastModified by Organization Details LastModified Time None Recorded Advance Directives Directive None Recorded Payers Insurance Date Sequence Insurance Name Policy Number Policy Schneider Covered Member ID Schneider Member ID Guarantor Name 02/07/2022 1 [place] [facility] Brooklyn Chavez [id number] Brooklyn Chavez 02/07/2022 1 JOINT [facility] [facility] [employer] [facility] [employer] - DOS PRIOR TO 2022 - DUAL ELIGIBLE (MEDICARE REPLACEMENT/AD VANTAGE - HMO) Brooklyn Chavez [id number] Brooklyn Chavez 02/07/2022 2 [place] [facility] Brooklyn L Brothers [id number] Brooklyn L Brothers 02/07/2022 1 [place] [employer] [place] Brooklyn L Brothers [id number] Brooklyn L Brothers 04/20/2019 1 *SELF PAY* Brooklyn Brothers [id number] Brooklyn L Brothers 04/20/2019 1 [place] [employer] [place] Brooklyn L Brothers [id number] Brooklyn L Brothers 04/20/2019 1 [place] [employer] [place] Brooklyn Brothers [id number] Brooklyn L Brothers 04/20/2019 1 *SELF PAY* Nesha Brothers [id number] Brooklyn L Brothers 04/20/2019 1 [place] Nesha Brothers [id number] Brooklyn L Brothers 05/20/2019 1 [place] [place] Brooklyn L Brothers [id number] Brooklyn L Brothers 07/31/2019 1 [place] [employer] [place] Brooklyn L Brothers [id number] Brooklyn L Brothers 01/25/2022 1 [place] [employer] [place] Brooklyn L Brothers [id number] Brooklyn L Brothers 04/10/2020 1 [place] [employer] Brooklyn L Brothers [id number] Brooklyn L Brothers 03/20/2020 1 [place] Brooklyn Brothers [id number] Brooklyn L Brothers 12/10/2020 2 [place] Brooklyn Brothers [id number] Brooklyn L Brothers 04/29/2020 1 [place] [employer] [employer] Brooklyn L Brothers [id number] Brooklyn L Brothers 03/03/2020 1 [place] [employer] Brooklyn L Brothers [id number] Brooklyn L Brothers 12/10/2020 1 [place] [employer] Brooklyn L Brothers [id number] Brooklyn L Brothers 04/29/2020 1 [place] Brooklyn Brothers [id number] Brooklyn L Brothers 03/27/2020 1 [place] [place] Brooklyn Brothers [id number] Brooklyn L Brothers 12/13/2020 1 [place] [facility] Brooklyn Brothers [id number] Brooklyn L Brothers 12/11/2020 2 [place] [facility] Brooklyn Brothers [id number] Brooklyn L Brothers 02/07/2022 2 [place] [facility] Brooklyn Brothers [id number] Brooklyn L Brothers 12/11/2020 1 [place] [facility] Brooklyn Brothers [id number] Brooklyn L Brothers 12/11/2020 1 [place] [place] Brooklyn Brothers [id number] Brooklyn L Brothers 12/11/2020 1 [place] Brooklyn Brothers [id number] Brooklyn L Brothers 12/10/2020 1 [place] [facility] Brooklyn Brothers [id number] Brooklyn L Brothers 12/06/2021 1 [place] [employer] Brooklyn L Brothers [id number] Brooklyn L Brothers 12/25/2020 2 [place] [facility] Brooklyn Brothers [id number] Brooklyn L Brothers 12/11/2020 2 [place] [facility] Brooklyn Brothers [id number] Brooklyn L Brothers 12/19/2020 1 [place] SERVICES [facility] [id number] [facility] 03/20/2020 2 [place] [facility] [id number] [facility] Notes Date Note Type Note Provider Name and Address Organization Details Recorded Time 04/30/2020 text/html This is a 39-year-old female who is known to [facility] but new to this provider, with a 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 She was seen Tuesday at [facility] for nausea vomiting and abdominal pain. She [...] has not recently been on antibiotics. Tete Escalante NP [address], [place], [address], [place] - [facility] 04/30/2020 18:09:48 12/11/2020 text/html This is a 40-year-old female that is known to [facility] but new to this provider. She has a medical history significant for bechetts syndrome, Crohn's disease, gastroparesis and DVT for which she is anticoagulated. She was recently hospitalized at [facility] with complaints of low blood pressure and low heart rate. She was discharged home yesterday early afternoon. [facility] contacted [facility] yesterday after getting home with complaints of nausea and dizziness, she required a secondary screening so she was ultimately not able to be seen as there was no provider available to screen her. She contacted [facility] again today with complaints of abdominal pain [...] review the patient's medical record in the [employer] system however her record is blocks due [...] did appear to be a wobbly. NAZANIN TOLBERT, PEARL [address], [place], [address], [place] - [facility] 12/11/2020 17:39:08 12/31/2020 text/html 40-year-old laura oropeza who is known to [facility] & this provider, with a past [...] urinary symptoms. She was reportedly admitted to [facility]- received IVF- came home with SOB- was admitted to [facility] for diuresis. She has been home about 1 week. She was seen by GI who plans to start TPN, IV Benadryl and IV Zofran. Tete Escalante, PEARL [address], [place], [address], [place] - [facility] 01/02/2021 11:52:00 04/26/2021 text/html [facility] i [...] not available at the pharmacy today. ANDREWS HUNTLEY, PEARL [address], [place], [address], [place] [facility] 04/26/2021 19:42:06 01/25/2022 text/html 41 year old fema le known to but new to provider with a history of DVT/PE on Eliquis, asthma, Bachets Dx, chronic gastroparesis with home TPN therapy via port, immune deficiency seen today for not feeling well after dx with UTI at [facility] late last night/early this am. Went [...] did not have childcare coverage. Went to [facility] ER last night for headache, acute on [...] at approximately 2am (now 215pm). 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 Pt showed all lab and abd CT results with normal CBCD, CMP, EGFR > 60. Abn CT with no etiology for abd pain complaints. Mirlande Schmidt NP [address], [place], [address], [place] [facility] 02/03/2022 09:50:48 OBGyn Episode No OBEpisode recorded.
== END 2024-10-16 06:55 | disposition home or self-care (01) ==
LOC: CF 06:54
PROVIDERS: Visit Provider Anesthesiology
DX: M54.59 Other low back pain (principal); M47.9 Spondylosis, unspecified
CPT/HCPCS: 64555; C1778; J2003

== ENCOUNTER 2024-10-16 13:02 | Outpatient (AMB) | payer MEDICARE, MEDICAID, SELFPAY ==
[2024-10-16 13:10] VITALS: BP 113/68; PULSE 100; RESP 20; O2SAT 96
--- NOTE | 2024-10-16 13:10 | A.OFFVIS_ITS ---
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 Allergies ciprofloxacin [Cipro] Allergy (Unknown, Verified 10/16/24 13:12) Hives levofloxacin [Levaquin] Allergy (Unknown, Verified 10/16/24 13:12) Hives metoclopramide [Reglan] Allergy (Unknown, Verified 10/16/24 13:12) Hives ondansetron [Zofran] Allergy (Unknown, Verified 10/16/24 13:12) Itching penicillin V Allergy (Unknown, Verified 10/16/24 13:12) Hives prochlorperazine [From Compazine] Allergy (Unknown, Verified 10/16/24 13:12) Shortness of Breath Sulfa (Sulfonamide Antibiotics) Allergy (Unknown, Verified 10/16/24 13:12) Hives thalidomide [From Thalomid] Allergy (Unknown, Verified 10/16/24 13:12) Rash haloperidol [From Haldol] Allergy (Verified 10/16/24 13:12) Itching PFSH Medical History (Updated 10/16/24 @ 16:25 by Manny Pedroza MD) ILD (interstitial lung disease) Enterocutaneous fistula Pulmonary emboli Crohn's disease Chronic, continuous use of opioids Immunosuppression Absence seizure disorder DVT (deep venous thrombosis) Pyloric stenosis Asthma Common variable immunodeficiency Spondylolisthesis, lumbar region Spondylosis of lumbar region without myelopathy or radiculopathy Abdominal pain, chronic, generalized Gastroparesis Spontaneous pneumothorax Chronic pain syndrome Cervicalgia Low back pain Behcet's disease Surgical History History of thoracotomy Hx of gastrostomy History of hernia surgery Family History Father Hairy cell leukemia Social History Household Members: Children Household Members Other:: son Housing: House Do you presently have visiting nurse or other home services: No Unable to assess alcohol history related to: Unknown Alcohol intake: never Patient Tobacco Use Status: Never used Tobacco Second Hand Smoke Exposure: No Advance Directives Date on File: 04/22/23 service: No Current occupational status: unemployed Physical Exam Vital Signs: Last Vital Signs Pulse 96 10/16/24 14:05 Resp 20 10/16/24 13:10 BP 124/66 10/16/24 14:05 Pulse Ox 94 10/16/24 14:05 Oxygen Delivery Method Room Air 10/16/24 14:05 Oxygen Flow Rate 2 10/16/24 13:10 Assessment & Plan Assessment & Plan (1) Intractable low back pain: Code(s): M54.59 - Other low back pain Category: Medical (2) Spondylosis: Code(s): M47.9 - Spondylosis, unspecified Category: Medical Plan SPRINT right L4 PNS. Percutaneous implantation of peripheral nerve stimulation Sprint system. After the risks, benefits and alternatives were discussed with the patient and informed consent was obtained, patient was placed in the prone position and padded to foster comfort. Time out was performed delineating correct site and side of the procedure , name and of the patient, patient participated in time out procedure. Entire posterior neck, occipital portion of the head, upper back were prepped with ChloraPrep and draped with sterile utility towels. C-arm was brought over the operating field and clear picture of the L4 lamina on the right was delineated on the screen. The upper central portion of the lamina was chosen as a target of the needle tip insertion . After identifying and marking the intended target, the skin around the planned entry point and the subcutaneous tissues were injected with local anesthetic forming skin wheal.. A percutaneous sleeve and stimulating probe lead introduction system were assembled, inserted and advanced through the skin wheal to the point of interest under C-arm view in tunnel vision fashion, the introducer needle was delivered to a location in proximity to the nerve. Multiple stimulation parameters were used to deliver stimulation to the nerve in concert with stimulating at multiple positions around the nerve. nerve target acquisition was confirmed noting generation of in the corresponding to the nerve being stimulated. Various electrical parameter combinations were tested, and the lead location was adjusted (physically relocated) until the patient indicated overlapping the distribution of the patient?s typical region of pain. The stimulating probe was removed from the introducer and a percutaneous lead was guided through the needle and delivered to a location in similar proximity to the nerve. Final location was verified with electrical stimulation. The introducer needle was removed, and the exposed end of the percutaneous lead was attached to an external stimulator unit. At the end of the case various electrical parameter combinations were again tested until the patient indicated paresthesia or muscle tension overlapping the distribution of the patient?s typical region of pain. After confirming that lead impedance was in the normal range, the external unit was detached, the needle was removed, and the lead was anchored at the skin. The lead was threaded into the connector block and electrical continuity and desired patient response was confirmed. The connector block was attached to the external stimulator unit. 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 10/16/24 CATH INTRATHECAL PAIN MGMT 1 02/03/23 09/13/24 KIT DRUG DELIVERY SYNCHROMED 1 02/03/23 07/20/24
[2024-10-16 14:05] VITALS: BP 124/66; PULSE 96; O2SAT 94
== END 2024-10-16 14:18 | disposition home or self-care (01) ==
LOC: HO.PMCPRC 13:02
PROVIDERS: PCP Internal Medicine; Visit Provider Anesthesiology
DX: M54.59 Other low back pain (principal); M47.9 Spondylosis, unspecified
CPT/HCPCS: 64555

== ENCOUNTER → 2024-10-17 09:19 | Outpatient (BNVA) | payer MEDICARE, MEDICAID, SELFPAY | PROVIDERS: PCP Internal Medicine; Visit Provider Anesthesiology | DX: Z13.89 Encounter for screening for other disorder (principal) ==

== ENCOUNTER 2024-10-24 13:22 | Outpatient (AMB) | payer MEDICARE, MEDICAID, SELFPAY ==
[2024-10-24 13:32] VITALS: BP 124/58; PULSE 85; O2SAT 95
--- NOTE | 2024-10-24 13:32 | A.OFFVIS_ITS ---
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: No Allergies ciprofloxacin [Cipro] Allergy (Unknown, Verified 10/24/24 13:37) Hives levofloxacin [Levaquin] Allergy (Unknown, Verified 10/24/24 13:37) Hives metoclopramide [Reglan] Allergy (Unknown, Verified 10/24/24 13:37) Hives ondansetron [Zofran] Allergy (Unknown, Verified 10/24/24 13:37) Itching penicillin V Allergy (Unknown, Verified 10/24/24 13:37) Hives prochlorperazine [From Compazine] Allergy (Unknown, Verified 10/24/24 13:37) Shortness of Breath Sulfa (Sulfonamide Antibiotics) Allergy (Unknown, Verified 10/24/24 13:37) Hives thalidomide [From Thalomid] Allergy (Unknown, Verified 10/24/24 13:37) Rash haloperidol [From Haldol] Allergy (Verified 10/24/24 13:37) Itching HPI Comments Details: Brooklyn is in the office today after initiation of the sprint PNS on the right side. She reported that before the sprint PNS her pain was 10/10 in the back. Now she reports that her pain with sprint PNS is 7/10 and she certainly feels improvement in mobility. I will schedule her for left-sided procedure on 10/30/2024. I would need to perform it with contrast filling of her intrathecal catheter which is on the left. Prior: Brooklyn is 41 years old female who is suffering from multiple medical conditions including Bencet disease, Crohn's disease, she is immunocompromised.? Her pain involves chronic abdominal pain and lower back pain.? She also has a chronic pelvic pain.? She is on chronic oral opioid therapy for 3 years.? [facility] Medical History (Updated 10/16/24 @ 16:25 by Manny Pedroza MD) ILD (interstitial lung disease) Enterocutaneous fistula Pulmonary emboli Crohn's disease Chronic, continuous use of opioids Immunosuppression Absence seizure disorder DVT (deep venous thrombosis) Pyloric stenosis Asthma Common variable immunodeficiency Spondylolisthesis, lumbar region Spondylosis of lumbar region without myelopathy or radiculopathy Abdominal pain, chronic, generalized Gastroparesis Spontaneous pneumothorax Chronic pain syndrome Cervicalgia Low back pain Behcet's disease Surgical History History of thoracotomy Hx of gastrostomy History of hernia surgery Family History Father Hairy cell leukemia Social History Household Members: Children Household Members Other:: son Housing: House Do you presently have visiting nurse or other home services: No Unable to assess alcohol history related to: Unknown Alcohol intake: never Patient Tobacco Use Status: Never used Tobacco Second Hand Smoke Exposure: No Advance Directives Date on File: 04/22/23 service: No Current occupational status: unemployed Review of Systems Const All systems reviewed & are unremarkable except as noted in HPI and below Physical Exam Vital Signs: Last Vital Signs Pulse 85 10/24/24 13:32 BP 124/58 L 10/24/24 13:32 Pulse Ox 95 10/24/24 13:32 Oxygen Delivery Method Nasal Cannula 10/24/24 13:32 Oxygen Flow Rate 2 10/24/24 13:32 Const General: cooperative, no acute distress and alert Orientation/consciousness: patient oriented x3 HEENT Head: Yes normocephalic and Yes atraumatic Ears: hearing grossly normal bilaterally Eyes General: appearance normal, both eyes and all related structures Alignment and Position: alignment normal and position normal Periorbital: periorbital findings normal Eyelids: Yes eyelids normal Pupils: Equal, round and reactive pupils present, pupils equal and not dilated EOM: EOMs intact bilaterally Direct Ophthalmoscopy: no photophobia Neck Neck: Yes normal visual inspection and Yes no JVD Resp Effort & Inspection: normal respiratory effort, able to speak in complete sentences and no audible wheezes Cardio Jugular venous distension: no JVD GI Inspection: Yes incision and Yes scar Back/Spine/Pelvis Other: Tenderness on palpation in projection of the paraspinal spinal region L3-L4-L5 area. Test is positive bilaterally. Misael test is equivocal and pelvic compression test is negative. Cervical Spine: normal cervical lordosis Thoracic/Lumbar Spine: thoracic and lumbar spine normal to inspection Neuro General: patient oriented x3, gait normal and moves all extremities Cranial nerves: Yes Equal, round and reactive pupils present Assessment & Plan Assessment & Plan (1) Cervicalgia: Code(s): M54.2 - Cervicalgia Category: Medical Plan: (2) Behcet's disease: Code(s): M35.2 - Behcet's disease Category: Medical Plan: (3) Low back pain: Code(s): M54.5 - Low back pain Category: Medical (4) Chronic abdominal pain: Code(s): R10.9 - Unspecified abdominal pain; G89.29 - Other chronic pain Category: Medical Plan: ? Intrathecal pump refill. The patient came today in the office for the change of the medication in the pain pump. The name and date of were verified and informed consent was obtained for the procedure. The pump was interrogated and the residual amount of fluid was found to be 13.4 mL. SHE WAS POSITIONED prone on the bed AND THE AREA OF THE INTRATHECAL PUMP WAS PREPPED WITH CHLORAPREP. The fenestrated drape was sterilely applied over the area of the pump. Sterile gloves were worn and of the aspiration system was assembled containing 2 in 22 gauge noncoring needle, the needle was connected to extension tubing which was connected to the 20 cc sterile syringe. The pain pump was palpated under the skin in the patient's left buttock area. The needle was inserted through the skin and the central plug of the pain pump and fluid was aspirated. The clear fluid was going into the syringe the total amount of the fluid was 13.0 mL .. After that a new batch? of medication was obtained which was containing bupivacaine in the concentration of 28 milligrams/mL.. The admixture was made in 20 cc syringe prepared by [facility] compounding pharmacy. The syringe was connected to the bacterial filter, and then connected to the extension tubing. After that the medication in the syringe was slowly instilled into the pump with aspirations at 15 and 5 cc joiner.? The pump was reprogrammed continuous dose of 1.4 mg a day as well as for possible administrations per day of bupivacaine 1.699 mg every 4 hours 4 times a day with the length of the time of the administration of each PTM dose at 59 minutes (5) Postdural puncture headache: Code(s): G97.1 - Other reaction to spinal and lumbar puncture Category: Medical (6) Intractable low back pain: Code(s): M54.59 - Other low back pain Category: Medical Plan Sprint PNS resulted in at least 30% pain improvement for the 1st week after the procedure. We need to continue with the sprint. I will perform the left-sided procedure with the visualization of the intrathecal catheter on 10/30/2024. I will see this patient after the next procedure. I will assess the pain relief 3 weeks after initiation of sprint therapy. Coding Level of Care Code Est Pt Level 3 (99260) Diagnoses Cervicalgia M54.2 Behcet's disease M35.2 Low back pain M54.5 Chronic abdominal pain R10.9; G89.29 Postdural puncture headache G97.1 Intractable low back pain M54.59
--- OUTSIDE RECORDS SUMMARY | 2024-10-24 13:39 | XMS_ITS | Data Portability ---
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 Pt reports on Tuesday04/27/20 she went to [facility] ER for abdominal pain, urine was tested [...] breathing unlabored Abd soft, tender LLQ, (-) Elsah & Psoas signs, no rebound tenderness (+) [...] I have accessed patient records on the [employer] Information [employer]. This information was pertinent in my medical decision making today. Time On Scene with Patient: 00:00:15 Not available 04/30/2020 14:10:35 12/11/2020 12/11/2020 Overview/History :Magali pretty is a 40-year-old female that is [facility], she was discharged home from the hospital yesterday. She was seen by GI during her hospitalization, she does have a history of Crohn's and gastro paresis. [facility] with complaints of dizziness and nausea. She [...] further work up on the end of [facility]. Plan/Discussion:I discussed with the patient that I [...] after care of this patient according to [facility] protocols. Time On Scene with Patient: 00:46:48 Time On Scene with Patient: 00:46:48 [email or web address] Not available 12/11/2020 15:15:43 12/31/2020 12/31/2020 Overview/History : This is a 40-year-old female who is known to [facility] provider, with a past medical history of DVTs & pulmonary embolism currently on Eliquis, Behcet's disease, Crohn's disease, gastroparesis, common variable immune deficiency, and followed by the pain clinic- on Morphine for chronic abdominal pain. Pt reports recently seen in [facility] ED for abdominal pain. She continues to [...] care were discussed with the Virtual Physician food preparation kitchen aide for [facility]- Dr. Leon who agrees patient needs to go to ED for nutrition and fluids and to be seen again by GI specialist. The patient understood and agreed with this plan. The patient was given discharge instructions and all questions were answered prior to team departure. [email or web address] Not available 01/02/2021 11:51:51 04/26/2021 04/26/2021 Brief [...] Ambulatory with steady gait Work up/Results: Reviewed [facility] ER records DDx considered & Medical [...] I have accessed patient records on the [employer] with patient portal. This information was pertinent in my medical decision making today. Proper Personal Protective Equipment (PPE), including gloves, surgical mask were donned and doffed appropriately and all equipment cleaned using approved technique with germicidal disposable wipes prior to and after care of this patient according to [facility] infection prevention protocols. Time On Scene with Patient: 00:25:23 [email or web address] Not available 04/26/2021 19:41:52 01/25/2022 01/25/2022 Overview/History : 41 year old female known to but new to provider with a history of DVT/PE on Eliquis, asthma, Bachets Dx, chronic gastroparesis with home TPN therapy via port, immune deficiency seen today for not feeling well after dx with UTI at [facility] late last night/early this am. Went [...] did not have childcare coverage. Went to [facility] ER last night for headache, acute on [...] at approximately 2am (now 215pm). Did not poultry picker Rx for antibiotic or pyridium. Pt [...] not limited to: -UTI: per pt with [facility] ED, culture pending -Dehydration: considered as cause of headache with normal BYN/Cr on labs though -Sinusitis: considered with frontal headache but no rhinorrhea, URI signs -Acute on chronic abd pain/gastroparesis flare Work up/Results: None indicated; pt needs to poultry picker prescribed meds as due for antibiotic Plan/Discussion: UTI -Increase fluids as tolerated to improve UTI and headache; use in conjunction with IV zofran - supervisor nuclear medicine antibiotics (Macrobid and pyridium) -Take Excedrin scheduled [...] Go To The Location Of Their Choice, [id number] 1 12:36:46 urinalysis, dipstick [address] - [place], [address] [place] [address] [place], [address], 0 11:32:18 culture, urine - Collected by [facility] 2019 [place] [facility] (Centralized Electronic Ordering - All Locations), Patient Can Go To The Location Of Their Choice, [id number] 0 10:13:17 Referral None recorded. Procedures None recorded. Surgeries None recorded. Imaging None recorded. Medication Orders nitrofurant oin monohydrate /macrocryst als 100 mg capsule 2020 [facility] #[id number], [address] [facility] , [place], [address], 19:32:33 Patient TargetsNo targets recorded. Patient Instructions Encounter Date Encounter Id Patient Instructions Last Modified By Organization Details Last Modified Time 04/30/2020 [id number] We tested your urine today, there is [...] in your condition between 8am-10pm, please call [facility] at [phone] to help navigate your care. [email or web address] Not available 04/30/2020 11:32:17 12/31/2020 [id number] Care escalated t o ED [email or web address] Not available 12/31/2020 14:39:34 04/26/2021 [id number] URINARY TRACT INFECTION INSTRUCTIONS BASIC INFORMATION Urinary [...] in your condition between 8am-10pm, please call [facility] at [phone] to help navigate your care. [email or web address] Not available 04/26/2021 19:41:58 01/25/2022 [id number] --You were seen today for ongoing headache, acute on chronic left abdominal pain with negative cat scan -You were diagnosed with UTI in ER; poultry picker your antibiotics and pyridium -Increase your [...] Go To The Location Of Their Choice, [id number] 05/02/2020 10:13:17 04/30/2005/01/2020 cultu re, urine special requests NONE Not Available [facility] (Centralized Electronic Ordering - All Locations) Patient Can Go To The Location Of Their Choice, [id number] 05/02/2020 10:13:17 04/30/2005/02/2020 cultu re, urine culture <10,00 0 COL/ML abnormal Not Available [facility] (Centralized Electronic Ordering - All Locations) Patient Can Go To The Location Of Their Choice, [id number] 05/02/2020 10:13:17 04/30/2005/02/2020 cultu re, urine report status FINAL 2019 Not Available [facility] (Centralized Electronic Ordering - All Locations) Patient Can Go To The Location Of Their Choice, [id number] 05/02/2020 10:13:17 04/30/20 20 04/30/2020 urina lysis , dipst ick Appearance clear Not Available Spr - H ome [address], [place], [address], 04/30/2020 11:29:27 04/30/20 20 04/30/2020 urina lysis , dipst ick Color yellow Not Available Spr - Home [address] [place], [address], 04/30/2020 11:29:27 04/30/20 20 04/30/2020 urina lysis , dipst ick Glucose negati ve Not Available Spr - Home [address], [place], [address], 04/30/2020 11:29:27 04/30/20 20 04/30/2020 urina lysis , dipst ick Bilirubin negati ve Not Available Spr - Home [address], [place], [address], 04/30/2020 11:29:27 04/30/20 20 04/30/2020 urina lysis , dipst ick Ketones NEG Not Available Spr - Home [address] [place], [address], 04/30/2020 11:29:27 04/30/20 20 04/30/2020 urina lysis , dipst ick Sp. [place] 1.030 Not Available Spr - Home [address] [place], [address], 04/30/2020 11:29:27 04/30/20 20 04/30/2020 urina lysis , dipst ick Blood + Not Available Spr - Home [address] [place], [address], 04/30/2020 11:29:27 04/30/20 20 04/30/2020 urina lysis , dipst ick pH 5.0 Not Available Spr - Home [address] [place], [address], 04/30/2020 11:29:27 04/30/20 20 04/30/2020 urina lysis , dipst ick Protein negati ve Not Available Spr - Home [address] [place], [address], 04/30/2020 11:29:27 04/30/20 20 04/30/2020 urina lysis , dipst ick Urobilirubin negati ve Not Available Spr - Home [address] [place], [address], 04/30/2020 11:29:27 04/30/20 20 04/30/2020 urina lysis , dipst ick Nitrites NEG Not Available Spr - [facility] e [address] [place], [address], 04/30/2020 11:29:27 04/30/20 20 04/30/2020 urina lysis , dipst ick Leukocytes NEG Not Available Spr - H ome [address] [place], [address], 04/30/2020 11:29:27 04/26/20 21 04/27/2021 URINE CULTU RE specimen description URINE Not Available [facility] (Centralized Electronic Ordering - All Locations) Patient Can Go To The Location Of Their Choice, [id number] 05/01/2021 19:07:04 04/26/20 21 04/27/2021 URINE CULTU RE special requests NONE Not Available [facility] (Centralized Electronic Ordering - All Locations) Patient Can Go To The Location Of Their Choice, [id number] 05/01/2021 19:07:04 04/26/20 21 04/28/2021 URINE CULTU RE culture NO GROWTH Not Available [facility] (Centralized Electronic Ordering - All Locations) Patient Can Go To The Location Of Their Choice, [id number] 05/01/2021 19:07:04 04/26/20 21 04/28/2021 URINE CULTU RE report status FINAL 2020 Not Available [facility] (Centralized Electronic Ordering - All Locations) Patient Can Go To The Location Of Their Choice, [id number] 05/01/2021 19:07:04 Result Notes None recorded. Problems Name Problem SNOMED Code Status Onset Date Resolution Date Notes Provider Name and Address Organization Details Recorded Time Gastroparesi s syndrome 990752003 Active 2018 ELAINE PEREZ NP [address], [place], [address], [place] [facility] 9 13:12:39 Behcet's syndrome 486585608 Active 2019 America Ferrera NP [address], [place], [address], [place] [facility] 0 21:06:32 Deep venous thrombosis 150873868 Active 2019 America Ferrera NP [address], [place], [address], [place] [facility] 0 21:06:41 Pulmonary embolism 83991831 Active 2019 America Ferrera NP [address], [place], [address], [place] [facility] 0 21:06:53 Crohn's disease 32107512 Active 2019 America Ferrera NP [address], [place], [address], [place] [facility] 0 21:46:14 Problem Notes None recorded. Procedures Surgical History Date Name Laterality Status Provider Name and Address Organization Details Recorded Time 01/26/20 22 Medication Review completed Mirlande Schmidt NP [address], [place], [address], [place] [facility] 01/25/2022 15:08:05 01/01/20 21 Medication Review completed Tete Escalante NP [address], [place], [address], [place] [facility] 12/31/2020 13:43:54 05/20/20 19 Venipuncture - DH completed ELAINE PEREZ NP [address], [place], [address], [place] [facility] 05/24/2019 12:06:55 05/20/20 19 ECG Interpretation - DH completed ELAINE PEREZ, MUSEUM PREPARATOR [address], [place], [address], [place] [facility] 05/20/2019 20:46:01 Port, indwelling, imp completed ANDREWS HUNTLEY, PEARL [address], [place], [address], [place] [facility] 04/26/2021 19:09:01 Remove tonsils [...] completed HARJINDER UNGER NP [address] [facility], [place], [address], [place] [facility] 02/24/2019 09:17:51 Imaging Results None recorded. Procedure Notes None recorded. Medical Equipment None Reported. Allergies Allergen ID Allergen Name Allergen Category Reaction Reaction Severity Criticality Documentation Date Start Date Code Code System Note Provider Name and Address Organization Details Recorded Time 33830 Product containin g penicilli n (product) medicatio n rash Not available Not available 01/13/2019 88701 8001 SNOMED Nora more-e rickso null[place] [facility] 9 13:37:49 69208 Bactrim medicatio n rash Not available Not available 01/13/2019 96032 9 RxNorm Nora more-e rickso null, [place] [facility] 9 13:37:49 02057 Reglan medicatio n rash Not available Not available 01/13/2019 9230 RxNorm Nora more-e rickso null, [place] [facility] 9 13:37:49 55671 Cipro medicatio n rash Not available Not available 01/13/201915863 3 RxNorm Nora more-e rickso null, [place] [facility] 9 13:37:49 23778 thalidomi de medicatio n hives Not available Not available 01/13/2019 73731 RxNorm Nora more-e rickso null, [place] [facility] 9 13:37:49 06299 Avelox medicatio n rash Not available Not available 01/13/2019 95924 6 RxNorm Nora more-e rickso null, [place] [facility] 9 13:37:49 67512 Compazine medicatio n rash Not available Not available 01/13/201908384 6 RxNorm Nora more-e rickso null, [place] [facility] 9 13:37:49 96551 penicilla mine medicatio n Not available Not available Not available 02/24/2019 7975 RxNorm HARJINDER UNGER, MUSEUM PREPARATOR [address] [place], [address], [place] [facility] 9 09:14:07 80500 Bactrim medicatio n Not available Not available Not available 02/24/2019 27368 9 RxNorm ELAINE PEREZ , [place] [address] [place], [address], [place] [facility] 9 13:11:15 50908 Reglan medicatio n Not available Not available Not available 02/24/2019 9230 RxNorm ELAINE PEREZ , [place] [address] [place], [address], [place] [facility] 9 13:11:30 00427 Cipro medicatio n Not available Not available Not available 02/24/201957960 3 RxNorm ELAINE PEREZ , [address] [address] [place], [address], [place] [facility] 9 13:11:19 25943 thalidomi de medicatio n Not available Not available Not available 02/24/2019 08897 RxNorm ELAINE PEREZ , MUSEUM PREPARATOR [address], [place], [address], [place] [facility] 9 13:11:36 19571 Avelox medicatio n Not available Not available Not available 02/24/2019 87346 6 RxNorm ELAINE PEREZ , MUSEUM PREPARATOR [address], [place], [address], [place] [facility] 9 13:11:11 09881 Compazine medicatio n Not available Not available Not available 02/24/2019 37988 6 RxNorm ELAINE PEREZ , MUSEUM PREPARATOR [address], [facility] [place], [address], [place] [facility] 9 13:11:23 80414 Levaquin medicatio n Not available Not available Not available 02/24/2019 34664 2 RxNorm HARJINDER UNGER, MUSEUM PREPARATOR [address], [place], [address], [place] [facility] 9 09:14:57 89018 Zofran medicatio n Not available Not available Not available 02/24/2019 19335 RxNorm HARJINDER UNGER, MUSEUM PREPARATOR [address], [facility] [place], [address], [place] [facility] 9 [...] mm[Hg] 112 mm[Hg] 64 mm[Hg] Not Available [facility] 1 14:30:28 Date Recorded Respiratory rate Oxygen saturation Oxygen saturation in Arterial blood by Pulse oximetry Heart rate Body temperature Systolic blood pressure Diastolic blood pressure Provider Name and Address Organization Details Last Updated DateTime 1 18 /min 93 % 93 % 60 /min 97.7 [degF] 74 mm[Hg] 40 mm[Hg] Not Available [facility] 1 14:14:28 Date Recorded Oxygen saturation Oxygen saturation in Arterial blood by Pulse oximetry Heart rate Respiratory rate Body temperature Systolic blood pressure Diastolic blood pressure Provider Name and Address Organization Details Last Updated DateTime 2 95 % 95 % 80 /min 18 /min 97.3 [degF] 112 mm[Hg] 66 mm[Hg] Not Available [facility] 2 14:03:13 Date Recorded Body temperature Heart rate Respiratory rate Oxygen saturation Oxygen saturation in Arterial blood by Pulse oximetry Systolic blood pressure Diastolic blood pressure Provider Name and Address Organization Details Last Updated DateTime 1 97.8 [degF] 90 /min 20 /min 97 % 97 % 110 mm[Hg] 70 mm[Hg] Not Available [facility] 1 19:13:37 Date Recorded Body temperature Heart rate Respiratory rate Oxygen saturation Oxygen saturation in Arterial blood by Pulse oximetry Systolic blood pressure Diastolic blood pressure Provider Name and Address Organization Details Last Updated DateTime 0 97.4 [degF] 64 /min 16 /min 99 % 99 % 110 mm[Hg] 64 mm[Hg] Not Available [facility] 0 11:19:12 Social History Question Answer Notes LastModified by Organizat ion Details LastModified Time Tobacco Smoking Status Never Smoker HARJINDER UNGER NP [address] [facility] [place], [address], [place] [facility] 02/24/2019 09:16:56 Drugs Abused [...] SNOMED-CT Code Diagnosis ICD10 Code Diagnosis Note [id number] HARJINDER UNGER NP SPR - [address] [facility] [place] [address] 01/13/2019 15:41:39 01/15/2019 13:01:16 Contusion of upper arm 12105063 S40.029A [id number] HARJINDER UNGER NP SPR - HOME [address] [place] [address] 02/24/2019 09:01:29 02/26/2019 13:15:01 Pain in throat 951462936 R07.0 Candidiasis of mouth 797 53315 B37.0 Called Pharmacist to add1 part Diphenhydr amine 12.5 mg/5 mL1 part Viscous lidocaine 2%1 part MaaloxPT will take 5ml QID swish and swallow. Pharyngitis 349258766 J0 2.9 [id number] ELAINE PEREZ NP SPR - HOME [address] [place] [address] 04/16/2019 13:10:41 04/16/2019 20:09:51 Urinary tract infectious disease 56603926 N39.0 [id number] NIVIA CAMPBELL SPR - HOME [address] [place] [address] 04/18/2019 15:47:19 04/20/2019 11:55:41 Fever 755205553 R50.9 Lower abdominal pain 545 10062 R10.30 Acute urin doris tract infection 261071640 N39.0 Headache 84131853 R51 Nausea 889407530 R11.0 [id number] ELAINE GRAYROZINAJAMESSRUTHI, MUSEUM PREPARATOR SPR - HOME [address] [facility] [place] [address] 05/20/2019 20:06:21 05/22/2019 10:30:18 Headache 50307398 R51 Syncope and collapse 309 420151 R55 Long-term current use of anticoagulant 648837041 Z79.01 417144 NIVIA DIAZ SPR - HOME [address] [facility] [place] [address] 07/29/2019 11:17:51 07/31/2019 18:23:01 Dizziness present 008983481 R42 Viral gastroenteritis 11 6986775 A08.4 Orthostati c hypotension 41094073 I95.1 Diarrhea 77935721 R19.7 [id number] America Ferrera, PEARL SPR - HOME [address] [facility] [place] [address] 03/20/2020 21:03:52 03/21/2020 14:55:42 Diarrhea 59944948 R19.7 Overview/H istory: Patient is a 39 [...] sent to lab for confirmati on Dehydration 43752036 E86 .0 Abdominal pain 26238549 R10.9 Urinary tr act infectious disease 01204552 N39.0 [id number] Tete Escalante, MUSEUM PREPARATOR SPR - HOME [address] [place] [address] 04/30/2020 11:13:21 04/30/2020 14:15:49 Flank pain 497589190 R10.9 [id number] NAZANIN TOLBERT, MUSEUM PREPARATOR SPR - HOME [address] [facility] [place] [address] 12/11/2020 14:07:27 12/19/2020 16:56:53 Nausea 123168473 R11.0 Dizziness 136731748 R42 [id number] Tete Escalante MUSEUM PREPARATOR SPR - HOME [address] [place] [address] 12/31/2020 13:18:40 01/01/2021 19:35:42 Dehydration 15895202 E86.0 Abdominal pain 39824178 R10.9 [id number] ANDREWS HUNTLEY, MUSEUM PREPARATOR SPR - HOME [address] [facility] [place] [address] 04/26/2021 19:07:16 04/30/2021 11:12:07 Acute urinary tract infection 216839923 N39.0 [id number] Mirlande Schmidt, MUSEUM PREPARATOR SPR - HOME [address] [facility] [place] [address] 01/25/2022 13:57:56 01/27/2022 19:23:10 Gastroparesis syndrome 548331796 K31.84 Acute on chronic Acute urin doris tract infection 132780452 N39.0 Health Concerns Section Related Observation LastModified by Organization Detai ls LastModified Time None Recorded Concern Status LastModified by Organization Details LastModified Time None Recorded Advance Directives Directive None Recorded Payers Insurance Date Sequence Insurance Name Policy Number Policy Schneider Covered Member ID Schneider Member ID Guarantor Name 02/07/2022 1 [place] [employer] Brooklyn Chavez [id number] Brooklyn Chavez 02/07/2022 1 [facility] - DOS PRIOR TO 2022 - DUAL ELIGIBLE (MEDICARE REPLACEMENT/AD VANTAGE - HMO) Brooklyn L Brothers [id number] Brooklyn L Brothers 02/07/2022 2 [place] Brooklyn L Brothers [id number] Brooklyn L Brothers 02/07/2022 1 [place] [employer] Brooklyn L Brothers [id number] Brooklyn L Brothers 04/20/2019 1 *SELF PAY* Brooklyn Brothers [id number] Brooklyn L Brothers 04/20/2019 1 [place] [employer] [place] Brooklyn L Brothers [id number] Brooklyn L Brothers 04/20/2019 1 [place] [place] Brooklyn Brothers [id number] Brooklyn L Brothers 04/20/2019 1 *SELF PAY* Nesha Brothers [id number] Brooklyn L Brothers 04/20/2019 1 [place] Nesha Brothers [id number] Brooklyn L Brothers 05/20/2019 1 [place] Brooklyn L Brothers [id number] Brooklyn L Brothers 07/31/2019 1 [place] [employer] [place] Brooklyn L Brothers [id number] Brooklyn L Brothers 01/25/2022 1 [place] Brooklyn L Brothers [id number] Brooklyn L Brothers 04/10/2020 1 [place] [place] Brooklyn L Brothers [id number] Brooklyn L Brothers 03/20/2020 1 [place] Brooklyn Brothers [id number] Brooklyn L Brothers 12/10/2020 2 [place] Brooklyn Brothers [id number] Brooklyn L Brothers 04/29/2020 1 [place] Brooklyn L Brothers [id number] Brooklyn L Brothers 03/03/2020 1 [place] Brooklyn L Brothers [id number] Brooklyn L Brothers 12/10/2020 1 [place] [place] Brooklyn L Brothers [id number] Brooklyn L Brothers 04/29/2020 1 [place] Brooklyn Brothers [id number] Brooklyn L Brothers 03/27/2020 1 [place] Brooklyn Brothers [id number] Brooklyn L Brothers 12/13/2020 1 [place] Brooklyn Brothers [id number] Brooklyn L Brothers 12/11/2020 2 [place] Brooklyn Brothers [id number] Brooklyn L Brothers 02/07/2022 2 [place] Brooklyn Brothers [id number] Brooklyn L Brothers 12/11/2020 1 [place] Brooklyn Brothers [id number] Brooklyn L Brothers 12/11/2020 1 [place] Brooklyn Brothers [id number] Brooklyn L Brothers 12/11/2020 1 [place] [place] Brooklyn Brothers [id number] Brooklyn L Brothers 12/10/2020 1 [place] Brooklyn Brothers [id number] Brooklyn L Brothers 12/06/2021 1 [place] Brooklyn L Brothers [id number] Brooklyn L Brothers 12/25/2020 2 [place] Brooklyn Brothers [id number] Brooklyn L Brothers 12/11/2020 2 [place] Brooklyn Brothers [id number] Brooklyn L Brothers 12/19/2020 1 [place] Brooklyn Brothers [id number] Brooklyn L Brothers 03/20/2020 2 [place] Brooklyn Brothers [id number] Brooklyn L Brothers Notes Date Note Type Note Provider Name and Address Organization Details Recorded Time 04/30/2020 text/html This is a 39-year-old female who is known to [facility] but new to this provider, with a 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 She was seen Tuesday at [facility] for nausea vomiting and abdominal pain. [...] recently been on antibiotics. Tete Escalante, PEARL [address] [place] [address], [address], [place] [facility] 04/30/2020 18:09:48 12/11/2020 text/html This is a 40-year-old female that [facility] new to this provider. She has a medical history significant for bechetts syndrome, Crohn's disease, gastroparesis and DVT for which she is anticoagulated. She was recently hospitalized at [facility] with complaints of low blood pressure and low heart rate. She was discharged home yesterday early afternoon. She contacted [facility] yesterday after getting home with complaints of nausea and dizziness, she required a secondary screening so she was ultimately not able to be seen as there was no provider available to screen her. She contacted [facility] again today with complaints of abdominal pain [...] review the patient's medical record in the [employer] system however her record is blocks due [...] wobbly. NAZANIN TOLBERT, PEARL [address], [place], [address], [place] [facility] 12/11/2020 17:39:08 12/31/2020 text/html 40-year-old fema johnna who is known to [facility] & this provider, with a past medical [...] urinary symptoms. She was reportedly admitted to [facility]- received IVF- came home with SOB- was admitted to [facility] for diuresis. She has been home about 1 week. She was seen by GI who plans to start TPN, IV Benadryl and IV Zofran. Tete Escalante NP [address], [place], [address], [place] [facility] 01/02/2021 11:52:00 04/26/2021 text/html [employer] [facility] [...] available at the pharmacy today. ANDREWS HUNTLEY, MUSEUM PREPARATOR [address], [place], [address], [place] - [facility] 04/26/2021 19:42:06 01/25/2022 text/html 41 year old fema le known to but new to provider with a history of DVT/PE on Eliquis, asthma, Bachets Dx, chronic gastroparesis with home TPN therapy via port, immune deficiency seen today for not feeling well after dx with UTI at [facility] late last night/early this am. Went [...] did not have childcare coverage. Went to [facility] ER last night for headache, acute on [...] at approximately 2am (now 215pm). Did not poultry picker Rx for antibiotic or pyridium. Pt showed all lab and abd CT results with normal CBCD, CMP, EGFR > 60. Abn CT with no etiology for abd pain complaints. Mirlande Schmidt NP [address], [place], [address], [place] [facility] 02/03/2022 09:50:48 OBGyn Episode No OBEpisode recorded.
== END 2024-10-24 13:44 | disposition home or self-care (01) ==
LOC: HO.PMC 13:28
PROVIDERS: PCP Internal Medicine; Visit Provider Anesthesiology
DX: M54.2 Cervicalgia (principal); M35.2 Behcet's disease; M54.50 Low back pain, unspecified; R10.9 Unspecified abdominal pain; G89.29 Other chronic pain; G97.1 Other reaction to spinal and lumbar puncture; M54.59 Other low back pain
CPT/HCPCS: 99024

== ENCOUNTER → 2024-10-24 13:22 | Outpatient (BNVA) | payer MEDICARE, MEDICAID, SELFPAY | PROVIDERS: PCP Internal Medicine; Visit Provider Anesthesiology | DX: M54.2 Cervicalgia (principal); M35.2 Behcet's disease; R10.9 Unspecified abdominal pain; G89.29 Other chronic pain; G97.1 Other reaction to spinal and lumbar puncture; M54.59 Other low back pain | CPT/HCPCS: 99212 ==

== ENCOUNTER 2024-10-30 06:07 | Outpatient (REF) | payer MEDICARE, MEDICAID, SELFPAY ==
--- NOTE | ~2024-10-30 | FL_ITS ---
EXAMINATION: FL GUIDANCE ONLY HISTORY: M47.9 - Spondylosis, unspecified COMPARISON: None available. TECHNIQUE: Fluoroscopy time: 0.1 minutes. Cumulative Dose: 3.27 mGy. DAP: 0.0569 mGym2 Images: . FINDINGS: Images demonstrated an infusion pump overlying the left iliac wing. FL/FL guidance in treatment room IMPRESSION: Fluoroscopy during procedure. Please see procedure report for additional information. Electronically signed by: Mohan Mckenna MD 10/30/2024 01:58 PM EDT
--- OUTSIDE RECORDS SUMMARY | 2024-10-30 06:10 | XMS_ITS | Data Portability ---
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 Pt reports on Tuesday04/27/20 she went to [place] [facility] for abdominal pain, urine was tested [...] breathing unlabored Abd soft, tender LLQ, (-) Agenda & Psoas signs, no rebound tenderness (+) [...] I have accessed patient records on the [employer]. This information was pertinent in my medical decision making today. Time On Scene with Patient: 00:00:15 [email or web address] Not available 04/30/2020 14:10:35 12/11/2020 12/11/2020 Overview/History :Magali pretty is a 40-year-old female that is known to [facility], she was discharged home from the hospital yesterday. She was seen by GI during her hospitalization, she does have a history of Crohn's and gastro paresis. She contacted [facility] with complaints of dizziness and nausea. She [...] further work up on the end of [facility]. Plan/Discussion:I discussed with the patient that I [...] after care of this patient according to [facility]'s infection prevention protocols. Time On Scene with Patient: 00:46:48 Time On Scene with Patient: 00:46:48 [email or web address] Not available 12/11/2020 15:15:43 12/31/2020 12/31/2020 Overview/History : This is a 40-year-old female who is known to [facility], with a past medical history of DVTs & pulmonary embolism currently on Eliquis, Behcet's disease, Crohn's disease, gastroparesis, common variable immune deficiency, and followed by the pain clinic- on Morphine for chronic abdominal pain. Pt reports recently seen in [place] [facility] for abdominal pain. She continues to [...] care were discussed with the Virtual Physician healthcare consulting manager for [facility]- Dr. Leon who agrees patient needs to go to ED for nutrition and fluids and to be seen again by GI specialist. The patient understood and agreed with this plan. The patient was given discharge instructions and all questions were answered prior to team departure. [email or web address] Not available 01/02/2021 11:51:51 04/26/2021 04/26/2021 Brief [...] Ambulatory with steady gait Work up/Results: Reviewed [facility] records DDx considered & Medical Decision [...] I have accessed patient records on the [employer] with patient portal. This information was pertinent in my medical decision making today. Proper Personal Protective Equipment (PPE), including gloves, surgical mask were donned and doffed appropriately and all equipment cleaned using approved technique with germicidal disposable wipes prior to and after care of this patient according to [facility] infection prevention protocols. Time On Scene with Patient: 00:25:23 [email or web address] Not available 04/26/2021 19:41:52 01/25/2022 01/25/2022 Overview/History : 41 year old female known to but new to provider with a history of DVT/PE on Eliquis, asthma, Bachets Dx, chronic gastroparesis with home TPN therapy via port, immune deficiency seen today for not feeling well after dx with UTI at [facility] late last night/early this am. Went to [...] did not have childcare coverage. Went to [facility] ER last night for headache, acute on [...] at approximately 2am (now 215pm). 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 Pt [...] not limited to: -UTI: per pt with [facility], culture pending -Dehydration: considered as cause of headache with normal BYN/Cr on labs though -Sinusitis: considered with frontal headache but no rhinorrhea, URI signs -Acute on chronic abd pain/gastroparesis flare Work up/Results: None indicated; pt needs to machine operator hop picker prescribed meds as due for antibiotic Plan/Discussion: UTI -Increase fluids as tolerated to improve UTI and headache; use in conjunction with IV zofran - system operation superintendent antibiotics (Macrobid and pyridium) -Take Excedrin scheduled [...] Go To The Location Of Their Choice, [id number] 1 12:36:46 urinalysis, dipstick [address] - [place], [address] [place] [address] [place], [address], 0 11:32:18 culture, urine - Collected by [facility] 2019 [place] [facility] (Centralized Electronic Ordering - All Locations), Patient Can Go To The Location Of Their Choice, [id number] 0 10:13:17 Referral None recorded. Procedures None recorded. Surgeries None recorded. Imaging None recorded. Medication Orders nitrofurant oin monohydrate /macrocryst als 100 mg capsule 2020 [facility] #[id number], [address] [facility] , [place], [address], 19:32:33 Patient TargetsNo targets recorded. Patient Instructions Encounter Date Encounter Id Patient Instructions Last Modified By Organization Details Last Modified Time 04/30/2020 [id number] We tested your urine today, there is [...] in your condition between 8am-10pm, please call [facility] at [phone] to help navigate your care. [email or web address] Not available 04/30/2020 11:32:17 12/31/2020 [id number] Care escalated t o ED [email or web address] Not available 12/31/2020 14:39:34 04/26/2021 [id number] URINARY TRACT INFECTION INSTRUCTIONS BASIC INFORMATION Urinary [...] in your condition between 8am-10pm, please call [facility] at [phone] to help navigate your care. [email or web address] Not available 04/26/2021 19:41:58 01/25/2022 [id number] --You were seen today for ongoing headache, acute on chronic left abdominal pain with negative cat scan -You were diagnosed with UTI in ER; machine operator hop picker your antibiotics and pyridium -Increase your [...] Go To The Location Of Their Choice, [id number] 05/02/2020 10:13:17 04/30/2005/01/2020 cultu re, urine special requests NONE Not Available [facility] (Centralized Electronic Ordering - All Locations) Patient Can Go To The Location Of Their Choice, [id number] 05/02/2020 10:13:17 04/30/2005/02/2020 cultu re, urine culture <10,00 0 COL/ML abnormal Not Available [facility] (Centralized Electronic Ordering - All Locations) Patient Can Go To The Location Of Their Choice, [id number] 05/02/2020 10:13:17 04/30/2005/02/2020 cultu re, urine report status FINAL 2019 Not Available [facility] (Centralized Electronic Ordering - All Locations) Patient Can Go To The Location Of Their Choice, [id number] 05/02/2020 10:13:17 04/30/20 20 04/30/2020 urina lysis , dipst ick Appearance clear Not Available Spr - H ome [address], [place], [address], 04/30/2020 11:29:27 04/30/20 20 04/30/2020 urina lysis , dipst ick Color yellow Not Available Spr - Home [address] [place], [address], 04/30/2020 11:29:27 04/30/20 20 04/30/2020 urina lysis , dipst ick Glucose negati ve Not Available Spr - Home [address], [place], [address], 04/30/2020 11:29:27 04/30/20 20 04/30/2020 urina lysis , dipst ick Bilirubin negati ve Not Available Spr - Home [address], [place], [address], 04/30/2020 11:29:27 04/30/20 20 04/30/2020 urina lysis , dipst ick Ketones NEG Not Available Spr - Home [address] [place], [address], 04/30/2020 11:29:27 04/30/20 20 04/30/2020 urina lysis , dipst ick Sp. [place] 1.030 Not Available Spr - Home [address] [place], [address], 04/30/2020 11:29:27 04/30/20 20 04/30/2020 urina lysis , dipst ick Blood + Not Available Spr - Home [address] [place], [address], 04/30/2020 11:29:27 04/30/20 20 04/30/2020 urina lysis , dipst ick pH 5.0 Not Available Spr - Home [address] [place], [address], 04/30/2020 11:29:27 04/30/20 20 04/30/2020 urina lysis , dipst ick Protein negati ve Not Available Spr - Home [address] [place], [address], 04/30/2020 11:29:27 04/30/20 20 04/30/2020 urina lysis , dipst ick Urobilirubin negati ve Not Available Spr - Home [address] [place], [address], 04/30/2020 11:29:27 04/30/20 20 04/30/2020 urina lysis , dipst ick Nitrites NEG Not Available Spr - [place] [facility] [address] [place], [address], 04/30/2020 11:29:27 04/30/20 20 04/30/2020 urina lysis , dipst ick Leukocytes NEG Not Available Spr - H ome [address] [place], [address], 04/30/2020 11:29:27 04/26/20 21 04/27/2021 URINE CULTU RE specimen description URINE Not Available [facility] (Centralized Electronic Ordering - All Locations) Patient Can Go To The Location Of Their Choice, [id number] 05/01/2021 19:07:04 04/26/20 21 04/27/2021 URINE CULTU RE special requests NONE Not Available [facility] (Centralized Electronic Ordering - All Locations) Patient Can Go To The Location Of Their Choice, [id number] 05/01/2021 19:07:04 04/26/20 21 04/28/2021 URINE CULTU RE culture NO GROWTH Not Available [facility] (Centralized Electronic Ordering - All Locations) Patient Can Go To The Location Of Their Choice, [id number] 05/01/2021 19:07:04 04/26/20 21 04/28/2021 URINE CULTU RE report status FINAL 2020 Not Available [facility] (Centralized Electronic Ordering - All Locations) Patient Can Go To The Location Of Their Choice, [id number] 05/01/2021 19:07:04 Result Notes None recorded. Problems Name Problem SNOMED Code Status Onset Date Resolution Date Notes Provider Name and Address Organization Details Recorded Time Gastroparesi s syndrome 499421286 Active 2018 ELAINE PEREZ NP [address], [facility] [place], [address], [place] [facility] 9 13:12:39 Behcet's syndrome 310554198 Active 2019 America Ferrera NP [address], [place], [address], [place] [facility] 0 21:06:32 Deep venous thrombosis 417657374 Active 2019 America Ferrera NP [address], [place], [address], [place] [facility] 0 21:06:41 Pulmonary embolism 07738683 Active 2019 America Ferrera NP [address], [facility] [place], [address], [place] [facility] 0 21:06:53 Crohn's disease 93041532 Active 2019 America Ferrera NP [address], [place], [address], [place] [facility] 0 21:46:14 Problem Notes None recorded. Procedures Surgical History Date Name Laterality Status Provider Name and Address Organization Details Recorded Time 01/26/20 22 Medication Review completed Mirlande Schmidt NP [address], [place], [address], [place] [facility] 01/25/2022 15:08:05 01/01/20 21 Medication Review completed Tete Escalante NP [address], [place], [address], [place] [facility] 12/31/2020 13:43:54 05/20/20 19 Venipuncture - DH completed ELAINE PEREZ NP [address], [place], [address], [place] [facility] 05/24/2019 12:06:55 05/20/20 19 ECG Interpretation - DH completed ELAINE PEREZ, RFID ANALYST [address], [place], [address], [place] [facility] 05/20/2019 20:46:01 Port, indwelling, imp completed ANDREWS HUNTLEY, PEARL [address], [place], [address], [place] [facility] 04/26/2021 19:09:01 Remove tonsils [...] repair w/mesh completed HARJINDER UNGER NP [address] [facility], [place], [address], [place] [facility] 02/24/2019 09:17:51 Imaging Results None recorded. Procedure Notes None recorded. Medical Equipment None Reported. Allergies Allergen ID Allergen Name Allergen Category Reaction Reaction Severity Criticality Documentation Date Start Date Code Code System Note Provider Name and Address Organization Details Recorded Time 61294 Product containin g penicilli n (product) medicatio n rash Not available Not available 01/13/2019 86581 8001 SNOMED Nora more-e rickso null, [place] [facility] 9 13:37:49 29818 Bactrim medicatio n rash Not available Not available 01/13/2019 60057 9 RxNorm Nora more-e rickso null, [place] [facility] 9 13:37:49 22024 Reglan medicatio n rash Not available Not available 01/13/2019 9230 RxNorm Nora more-e rickso null, [place] [facility] 9 13:37:49 41694 Cipro medicatio n rash Not available Not available 01/13/201906160 3 RxNorm Nora more-e rickso null, [place] [facility] 9 13:37:49 29975 thalidomi de medicatio n hives Not available Not available 01/13/2019 31492 RxNorm Nora more-e rickso null, [place] [facility] 9 13:37:49 69336 Avelox medicatio n rash Not available Not available 01/13/2019 46526 6 RxNorm Nora more-e rickso null, [place] [facility] 9 13:37:49 76875 Compazine medicatio n rash Not available Not available 01/13/201948606 6 RxNorm Nora more-e rickso null, [place] [facility] 9 13:37:49 42703 penicilla mine medicatio n Not available Not available Not available 02/24/2019 7975 RxNorm HARJINDER UNGER, RFID ANALYST [address] [place], [address], [place] [facility] 9 09:14:07 98043 Bactrim medicatio n Not available Not available Not available 02/24/2019 98240 9 RxNorm ELAINE PEREZ , [address] [address] [place], [address], [place] [facility] 9 13:11:15 32387 Reglan medicatio n Not available Not available Not available 02/24/2019 9230 RxNorm ELAINE PEREZ , [address] [address] [place], [address], [place] [facility] 9 13:11:30 74444 Cipro medicatio n Not available Not available Not available 02/24/201919226 3 RxNorm ELAINE PEREZ , [address] [address] [place], [address], [place] [facility] 9 13:11:19 51716 thalidomi de medicatio n Not available Not available Not available 02/24/2019 69623 RxNorm ELAINE PEREZ , RFID ANALYST [address], [place], [address], [place] [facility] 9 13:11:36 78838 Avelox medicatio n Not available Not available Not available 02/24/2019 17167 6 RxNorm ELAINE PEREZ , RFID ANALYST [address], [place], [address], [place] [facility] 9 13:11:11 44201 Compazine medicatio n Not available Not available Not available 02/24/2019 39194 6 RxNorm ELAINE PEREZ , RFID ANALYST [address], [facility] [place], [address], [place] [facility] 9 13:11:23 95064 Levaquin medicatio n Not available Not available Not available 02/24/2019 05668 2 RxNorm HARJINDER UNGER, RFID ANALYST [address], [place], [address], [place] [facility] 9 09:14:57 99783 Zofran medicatio n Not available Not available Not available 02/24/2019 26240 RxNorm HARJINDER UNGER, RFID ANALYST [address], [facility] [place], [address], [place] [facility] 9 [...] mm[Hg] 112 mm[Hg] 64 mm[Hg] Not Available [facility] 1 14:30:28 Date Recorded Respiratory rate Oxygen saturation Oxygen saturation in Arterial blood by Pulse oximetry Heart rate Body temperature Systolic blood pressure Diastolic blood pressure Provider Name and Address Organization Details Last Updated DateTime 1 18 /min 93 % 93 % 60 /min 97.7 [degF] 74 mm[Hg] 40 mm[Hg] Not Available [facility] 1 14:14:28 Date Recorded Oxygen saturation Oxygen saturation in Arterial blood by Pulse oximetry Heart rate Respiratory rate Body temperature Systolic blood pressure Diastolic blood pressure Provider Name and Address Organization Details Last Updated DateTime 2 95 % 95 % 80 /min 18 /min 97.3 [degF] 112 mm[Hg] 66 mm[Hg] Not Available [facility] 2 14:03:13 Date Recorded Body temperature Heart rate Respiratory rate Oxygen saturation Oxygen saturation in Arterial blood by Pulse oximetry Systolic blood pressure Diastolic blood pressure Provider Name and Address Organization Details Last Updated DateTime 1 97.8 [degF] 90 /min 20 /min 97 % 97 % 110 mm[Hg] 70 mm[Hg] Not Available [facility] 1 19:13:37 Date Recorded Body temperature Heart rate Respiratory rate Oxygen saturation Oxygen saturation in Arterial blood by Pulse oximetry Systolic blood pressure Diastolic blood pressure Provider Name and Address Organization Details Last Updated DateTime 0 97.4 [degF] 64 /min 16 /min 99 % 99 % 110 mm[Hg] 64 mm[Hg] Not Available [facility] 0 11:19:12 Social History Question Answer Notes LastModified by Organizat ion Details LastModified Time Tobacco Smoking Status Never Smoker HARJINDER UNGER NP [address] [facility] [place], [address], [place] [facility] 02/24/2019 09:16:56 Drugs Abused [...] Coronary Artery Disease N High Cholesterol N Pulmonary Embolism Y Cancer N Stroke N Hypertension N Depression N COPD N Asthma Y Kidney Disease N Gynecological HistoryNo gynecological history recorded. Obstetrics History GPAL:G 0 P 0 0 0 0 Past Encounters Encounter ID Performer Location Encounter Start Date Encounter Closed Date Diagnosis/Indication Diagnosis SNOMED-CT Code Diagnosis ICD10 Code Diagnosis Note [id number] HARJINDER UNGER NP [facility] [address] [facility] [place] [address] 01/13/2019 15:41:39 01/15/2019 13:01:16 Contusion of upper arm 35620735 S40.029A [id number] HARJINDER UNGER NP SPR - [address] [place] [address] 02/24/2019 09:01:29 02/26/2019 13:15:01 Pain in throat 434017583 R07.0 Candidiasis of mouth 797 09450 B37.0 Called Pharmacist to add1 part Diphenhydr amine 12.5 mg/5 mL1 part Viscous lidocaine 2%1 part MaaloxPT will take 5ml QID swish and swallow. Pharyngitis 930531035 J0 2.9 [id number] ELAINE PEREZ NP SPR - [address] [place] [address] 04/16/2019 13:10:41 04/16/2019 20:09:51 Urinary tract infectious disease 24583669 N39.0 [id number] NIVIA CAMPBELL SPR - [facility] [address] [place] [address] 04/18/2019 15:47:19 04/20/2019 11:55:41 Fever 722293561 R50.9 Lower abdominal pain 545 44083 R10.30 Acute urin doris tract infection 176115669 N39.0 Headache 57445087 R51 Nausea 250583489 R11.0 [id number] ELAINE GRAYRZOINAJAMESSRUTHI, RFID ANALYST SPR - HOME [address] [facility] [place] [address] 05/20/2019 20:06:21 05/22/2019 10:30:18 Headache 70378426 R51 Syncope and collapse 309 708102 R55 Long-term current use of anticoagulant 057699144 Z79.01 [id number] NIVIA DIAZ SPR - HOME [address] [facility] [place] [address] 07/29/2019 11:17:51 07/31/2019 18:23:01 Dizziness present 576386825 R42 Viral gastroenteritis 11 7854681 A08.4 Orthostati c hypotension 07385541 I95.1 Diarrhea 01829770 R19.7 [id number] America Ferrera, PEARL SPR - HOME [address] [facility] [place] [address] 03/20/2020 21:03:52 03/21/2020 14:55:42 Diarrhea 62753404 R19.7 Overview/H istory: Patient is a 39 [...] sent to lab for confirmati on Dehydration 60709978 E86 .0 Abdominal pain 81885789 R10.9 Urinary tr act infectious disease 00417883 N39.0 [id number] Tete Escalante, RFID ANALYST [facility] [address] [facility] [place] [address] 04/30/2020 11:13:21 04/30/2020 14:15:49 Flank pain 803017031 R10.9 [id number] NAZANIN TOLBERT, RFID ANALYST SPR - HOME [address] [facility] [place] [address] 12/11/2020 14:07:27 12/19/2020 16:56:53 Nausea 837289554 R11.0 Dizziness 682052154 R42 [id number] Tete Escalante RFID ANALYST SPR - [facility] [address] [facility] [place] [place] [address] 12/31/2020 13:18:40 01/01/2021 19:35:42 Dehydration 84934826 E86.0 Abdominal pain 58097972 R10.9 [id number] ANDREWS HUNTLEY, RFID ANALYST SPR - HOME [address] [facility] [place] [address] 04/26/2021 19:07:16 04/30/2021 11:12:07 Acute urinary tract infection 849578159 N39.0 [id number] Mirlande Schmidt, RFID ANALYST SPR - HOME [address] [facility] [place] [address] 01/25/2022 13:57:56 01/27/2022 19:23:10 Gastroparesis syndrome 123130449 K31.84 Acute on chronic Acute urin doris tract infection 121735235 N39.0 Health Concerns Section Related Observation LastModified by Organization Detai ls LastModified Time None Recorded Concern Status LastModified by Organization Details LastModified Time None Recorded Advance Directives Directive None Recorded Payers Insurance Date Sequence Insurance Name Policy Number Policy Schneider Covered Member ID Schneider Member ID Guarantor Name 02/07/2022 1 [place] [employer] Brooklyn Chavez [id number] Brooklyn Chavez 02/07/2022 1 [facility] - DOS PRIOR TO 2022 - DUAL ELIGIBLE (MEDICARE REPLACEMENT/AD VANTAGE - HMO) Brooklyn L Brothers [id number] Brooklyn L Brothers 02/07/2022 2 [place] Brooklyn L Brothers [id number] Brooklyn L Brothers 02/07/2022 1 [place] [employer] Brooklyn L Brothers [id number] Brooklyn L Brothers 04/20/2019 1 *SELF PAY* Brooklyn Brothers [id number] Brooklyn L Brothers 04/20/2019 1 [place] [employer] Brooklyn L Brothers [id number] Brooklyn L Brothers 04/20/2019 1 [place] [employer] Brooklyn Brothers [id number] Brooklyn L Brothers 04/20/2019 1 *SELF PAY* Nesha Brothers [id number] Brooklyn L Brothers 04/20/2019 1 [place] Nesha Brothers [id number] Brooklyn L Brothers 05/20/2019 1 [place] [employer] [place] Brooklyn L Brothers [id number] Brooklyn L Brothers 07/31/2019 1 [place] Brooklyn L Brothers [id number] Brooklyn L Brothers 01/25/2022 1 [place] [employer] Brooklyn L Brothers [id number] Brooklyn L Brothers 04/10/2020 1 [place] Brooklyn L Brothers [id number] Brooklyn L Brothers 03/20/2020 1 [place] Brooklyn Brothers [id number] Brooklyn L Brothers 12/10/2020 2 [place] Brooklyn Brothers [id number] Brooklyn L Brothers 04/29/2020 1 [place] [employer] [place] Brooklyn L Brothers [id number] Brooklyn L Brothers 03/03/2020 1 [place] [employer] [place] Brooklyn L Brothers [id number] Brooklyn L Brothers 12/10/2020 1 [place] [employer] Brooklyn L Brothers [id number] Brooklyn L Brothers 04/29/2020 1 [place] Brooklyn Brothers [id number] Brooklyn L Brothers 03/27/2020 1 [place] [employer] Brooklyn Brothers [id number] Brooklyn L Brothers 12/13/2020 1 [place] Brooklyn Brothers [id number] Brooklyn L Brothers 12/11/2020 2 [place] Brooklyn Brothers [id number] Brooklyn L Brothers 02/07/2022 2 [place] Brooklyn Brothers [id number] Brooklyn L Brothers 12/11/2020 1 [place] Brooklyn Brothers [id number] Brooklyn L Brothers 12/11/2020 1 [place] [employer] Brooklyn Brothers [id number] Brooklyn L Brothers 12/11/2020 1 [place] [employer] Brooklyn Brothers [id number] Brooklyn L Brothers 12/10/2020 1 [place] Brooklyn Brothers [id number] Brooklyn L Brothers 12/06/2021 1 [place] [employer] Brooklyn L Brothers [id number] Brooklyn L Brothers 12/25/2020 2 [place] Brooklyn Brothers [id number] Brooklyn L Brothers 12/11/2020 2 [place] Brooklyn Brothers [id number] Brooklyn L Brothers 12/19/2020 1 [place] [employer] Brooklyn Brothers [id number] Brooklyn L Brothers 03/20/2020 2 [place] Brooklyn Brothers [id number] Brooklyn L Brothers Notes Date Note Type Note Provider Name and Address Organization Details Recorded Time 04/30/2020 text/html This is a 39-year-old female who is known to [facility] but new to this provider, with a 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 She was seen Tuesday at [facility] for nausea vomiting and abdominal pain. [...] recently been on antibiotics. Tete Escalante, PEARL [address] [place] [address], [id number], [place] - [facility] 04/30/2020 18:09:48 12/11/2020 text/html This is a 40-year-old female that is known to [facility] but new to this provider. She has a medical history significant for bechetts syndrome, Crohn's disease, gastroparesis and DVT for which she is anticoagulated. She was recently hospitalized at [facility] with complaints of low blood pressure and low heart rate. She was discharged home yesterday early afternoon. She contacted [facility] yesterday after getting home with complaints of nausea and dizziness, she required a secondary screening so she was ultimately not able to be seen as there was no provider available to screen her. She contacted [facility] again today with complaints of abdominal pain [...] review the patient's medical record in the [email or web address] system however her record is blocks due [...] wobbly. NAZANIN TOLBERT, PEARL [address], [place], [address], [place] [facility] 12/11/2020 17:39:08 12/31/2020 text/html 40-year-old fema johnna who is known to [facility] & this provider, with a past medical [...] urinary symptoms. She was reportedly admitted to [facility]- received IVF- came home with SOB- was admitted to [place] for diuresis. She has been home about 1 week. She was seen by GI who plans to start TPN, IV Benadryl and IV Zofran. Tete Escalante NP [address], [place], [address], [place] [facility] 01/02/2021 11:52:00 04/26/2021 text/html [employer] [...] available at the pharmacy today. ANDREWS HUNTLEY, RFID ANALYST [address], [place], [address], [place] [facility] 04/26/2021 19:42:06 01/25/2022 text/html 41 year old fema le known to but new to provider with a history of DVT/PE on Eliquis, asthma, Bachets Dx, chronic gastroparesis with home TPN therapy via port, immune deficiency seen today for not feeling well after dx with UTI at [facility] late last night/early this am. Went to [...] did not have childcare coverage. Went to [facility] ER last night for headache, acute on [...] at approximately 2am (now 215pm). 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 Pt showed all lab and abd CT results with normal CBCD, CMP, EGFR > 60. Abn CT with no etiology for abd pain complaints. Mirlande Schmidt NP [address], [place], [address], [place] [facility] 02/03/2022 09:50:48 OBGyn Episode No OBEpisode recorded.
== END 2024-10-30 06:08 | disposition home or self-care (01) ==
LOC: CF 06:07
PROVIDERS: Visit Provider Anesthesiology
DX: M54.59 Other low back pain (principal)
CPT/HCPCS: J2003; Q9967

== ENCOUNTER 2024-10-30 10:31 | Outpatient (AMB) | payer MEDICARE, MEDICAID, SELFPAY ==
[2024-10-30 10:58] VITALS: BP 109/58; PULSE 72; RESP 20; O2SAT 95
--- NOTE | 2024-10-30 10:58 | A.OFFVIS_ITS ---
Vital Signs 10/30/24 10:58 10/30/24 11:23 Weight 144 lb BP 109/58 L 109/74 Blood Pressure Location Lt brachial Lt brachial Position Sitting Sitting Respiration 20 18 Pulse 72 76 Pulse Source Pulse Oximeter Pulse Oximeter Pulse Oximetry (%) 95 93 Oxygen Delivery Method Room Air Room Air Intake Visit Reasons: (L) L4 MB Sprint PNS Trial *DB Per Dr. 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 Allergies ciprofloxacin [Cipro] Allergy (Unknown, Verified 10/30/24 12:14) Hives levofloxacin [Levaquin] Allergy (Unknown, Verified 10/30/24 12:14) Hives metoclopramide [Reglan] Allergy (Unknown, Verified 10/30/24 12:14) Hives ondansetron [Zofran] Allergy (Unknown, Verified 10/30/24 12:14) Itching penicillin V Allergy (Unknown, Verified 10/30/24 12:14) Hives prochlorperazine [From Compazine] Allergy (Unknown, Verified 10/30/24 12:14) Shortness of Breath Sulfa (Sulfonamide Antibiotics) Allergy (Unknown, Verified 10/30/24 12:14) Hives thalidomide [From Thalomid] Allergy (Unknown, Verified 10/30/24 12:14) Rash haloperidol [From Haldol] Allergy (Verified 10/30/24 12:14) Itching PFSH Medical History ILD (interstitial lung disease) Enterocutaneous fistula Pulmonary emboli Crohn's disease Chronic, continuous use of opioids Immunosuppression Absence seizure disorder DVT (deep venous thrombosis) Pyloric stenosis Asthma Common variable immunodeficiency Spondylolisthesis, lumbar region Spondylosis of lumbar region without myelopathy or radiculopathy Abdominal pain, chronic, generalized Gastroparesis Spontaneous pneumothorax Chronic pain syndrome Cervicalgia Low back pain Behcet's disease Surgical History History of thoracotomy Hx of gastrostomy History of hernia surgery Family History Father Hairy cell leukemia Social History Household Members: Children Household Members Other:: son Housing: House Do you presently have visiting nurse or other home services: No Unable to assess alcohol history related to: Unknown Alcohol intake: never Patient Tobacco Use Status: Never used Tobacco Smoked in Last 30 Days: No Second Hand Smoke Exposure: No Use of substances other than those prescribed or required for medical reasons: No Advance Directives: Yes Advance Directives on File: Yes Advance Directives Date on File: 04/22/23 Do you have a plan to hurt others: No Plan Patient : No service: No Current occupational status: unemployed Physical Exam Vital Signs: Last Vital Signs Pulse 76 10/30/24 11:23 Resp 18 10/30/24 11:23 BP 109/74 10/30/24 11:23 Pulse Ox 93 10/30/24 11:23 Oxygen Delivery Method Room Air 10/30/24 11:23 Assessment & Plan Assessment & Plan (1) Intractable low back pain: Code(s): M54.59 - Other low back pain Category: Medical (2) Spondylosis: Code(s): M47.9 - Spondylosis, unspecified Category: Medical Plan Attempts at sprint L4 PNS on the left.. After the risks, benefits and alternatives were discussed with the patient and informed consent was obtained, patient was placed in the prone position and padded to foster comfort. Sterilely draped C-arm was brought over the operating field and sq picture of the intrathecal pain pump was demonstrated on the screen. Twenty-five gauge noncoring needle was inserted of the side port of the pump and aspiration was performed. I was able to aspirate at least 1 mL of CSF. However amount of bubbles coming to the syringe and CSF will slightly blood- tinged. The decision was made not to perform a dye study and without the dye study it would not be possible to perform sprint PNS on the left. There is an intrathecal catheter on the left which could be easily injured with insertion of the needle at this level. The patient was taken outside of the operating room and prime bolus was introduced into the intrathecal pain pump. The prime bolus was supposed to run for 15 minutes. At the end of the prime bolus patient started to feel febrile and dizzy. She complained on nausea. She was hypotensive and bradycardic. She denied any numbness in the bilateral lower extremities. Unlikely high spinal however can not be 100% excluded. We positioned her on the bed and started intravenous fluids into her Port-A-Cath which is positioned in the subcutaneous tissues and connected to vena cava inferior. The patient was transferred to the emergency room, patient was evaluated, she was bradycardic and hypotensive. She admitted that she was dehydrated on the day of the procedure. She spent 2 hours in the emergency room, the intrathecal pain pump was read again and placed on minimal rate. After hydration and proper workup patient's condition improved. She went home without immediate complications of the procedure. Orders: Orders FL guidance in treatment room 10/30/24 M47.9 - Spondylosis, unspecified Coding Level of Care Code Procedure Only Diagnoses Intractable low back pain M54.59 Spondylosis M47.9
[2024-10-30 11:23] VITALS: BP 109/74; PULSE 76; RESP 18; O2SAT 93
== END 2024-10-30 11:48 | disposition home or self-care (01) ==
LOC: HO.PMCPRC 10:31
PROVIDERS: PCP Internal Medicine; Visit Provider Anesthesiology
DX: M54.59 Other low back pain (principal); M47.9 Spondylosis, unspecified
CPT/HCPCS: 64555

== ENCOUNTER 2024-10-30 11:51 | Emergency (ER) | payer MEDICARE, MEDICAID, SELFPAY ==
[2024-10-30] VITALS (7 sets, daily range): BP systolic 62–120; BP diastolic 18–65; PULSE 45–80; RESP 10–18; TEMP 36.6–36.8; O2SAT 98–100
--- NOTE | ~2024-10-30 | CT_ITS ---
CLINICAL HISTORY: sob CTA chest with 3-D postprocessing Comparison: CR/SR - XR CHEST 1V - 09/17/24 10:[address]/SR - CT CHEST W IV CON - 09/02/24 16:[address] - CT CHEST W IV CON - 09/02/24 16:[address]/SR - CT CHEST WO IV CON - 08/29/24 10:[address]/[place]/SR - CT CHEST WO IV CON - 08/27/24 10:[address]/[place]/SR - CT CHEST WO IV CON - 08/23/24 14:21 EDT Findings: Study quality is adequate for the diagnosis of pulmonary embolism. No pulmonary embolism. Heart size within normal limits. RV/LV ratio is normal. No calcified coronary artery disease. No aortic dissection or aneurysm. Mild calcified atherosclerotic disease. Occlusion of the superior vena cava with collateral vessels, also present on the prior studies. No lymphadenopathy. Mild scarring in the right middle and lower lobes; subpleural with pulling of the bronchovascular bundles. Unchanged scarring in the left lung with volume loss No pneumothorax. Bilateral pleural thickening. Resolution of the previously seen small right pleural effusion. Left calcified pleural plaques, similar to the prior studies. No acute osseous or soft tissue abnormality. No acute pathology in the imaged portion of the upper abdomen. Impression: No pulmonary embolism. Superior vena cava syndrome, chronic. Interval resolution of the previously seen small right pleural effusion. Persistent right pleural thickening with associated scarring. Chronic left pleural thickening with calcified pleural plaques and scarring. This document has been electronically signed by: Brittney Ortiz MD on 10/30/2024 17:37:55
--- NOTE | ~2024-10-30 | XR_ITS ---
EXAMINATION: XR CHEST CLINICAL INFORMATION: SOB COMPARISON: None available. TECHNIQUE: Frontal view of the chest was obtained. FINDINGS: A central venous IVC catheter is noted entering from inferior, tip terminating in the right atrium. Borderline cardiac enlargement. Mediastinal and hilar contours appear normal. Lungs demonstrate patchy opacities bilaterally, most confluent in the bilateral lung bases, with opacities also seen in the upper lungs on both sides. There is left apical pleural capping with pleural calcifications. No focal osseous or soft tissue abnormality. XR/XR chest 1V IMPRESSION: Multifocal pulmonary opacities suggesting multifocal or atypical pneumonia, with asymmetric pulmonary edema also within the differential. This is superimposed upon chronic changes as discussed. Electronically signed by: Hay Patten MD 10/30/2024 01:17 PM EDT
--- NOTE | 2024-10-30 11:58 | ECG_ITS ---
Test Reason : hypotensive Blood Pressure : */* mmHG Vent. Rate : 46 BPM Atrial Rate : 46 BPM P-R Int : 124 ms QRS Dur : 76 ms QT Int : 468 ms P-R-T Axes : 6 52 48 degrees QTcB Int : 409 ms Sinus bradycardia Otherwise normal ECG When compared with ECG of 05-Sep-2024 10:49, Vent. rate has decreased by 32 bpm Nonspecific T wave abnormality no longer evident in Inferior leads T wave inversion no longer evident in Anterior leads QT has lengthened Referred By: Generic ED Physician Electronically Signed By: EBER HUGHES MD
[2024-10-30] MEDS: Lactated Ringers 1,000 ML 999 ML IV (12:00)
[2024-10-30 12:05] LABS: Glucose, Whole Blood 103 mg/dL (60-115)
[2024-10-30 12:23] LABS: MANUAL DIFF FLAG NO
[2024-10-30 12:24] LABS: Basophils Percent Auto 0.4 % (0-2); Eosinophils Absolute Auto 0.1 X10*3/uL (0.0-0.4); Eosinophils Percent Auto 1.5 % (0-4); Hematocrit 33.4 % (37.0-47.0); Hemoglobin 11.3 g/dl (12.0-16.0); Imm Gran Abs Auto 0.02 X10*3/uL (0.00-0.03); Imm Gran Pct Auto 0.3 % (0.0-0.4); Lymphocytes Absolute Auto 2.1 X10*3/uL (1.2-4.9); Lymphocytes Percent Auto 30.7 % (20-40); Mean Corpuscular HGB Conc 33.8 g/dl (31.0-35.0); Mean Corpuscular Hemoglobin 29.3 pg (27.0-33.0); Mean Corpuscular Volume 86.5 fL (80.0-98.0); Mean Platelet Volume 10.7 fL (9.4-12.3); Monocytes Absolute Auto 0.7 X10*3/uL (0.1-1.2); Neutrophils Absolute Auto 3.8 x10*3/uL (2.0-8.3); Neutrophils Percent Auto 57.1 % (45-73); Platelet Count 213 X10*3/uL (160-400); Red Blood Count 3.86 X10*6/uL (4.20-5.50); Red Cell Distribution Width 13.2 % (11.0-16.0); White Blood Count 6.7 X10*3/uL (4.8-10.8)
[2024-10-30] MEDS: 0.9 % Sodium Chloride 1,000 ML 999 ML IV ×2 (12:26→12:27)
[2024-10-30] MEDS: ondansetron HCL 4 MG/2 ML VIAL IVPUSH (12:27)
--- NOTE | 2024-10-30 12:27 | ED.DIZZY ---
HPI - Dizziness General Chief Complaint: Syncope Stated Complaint: sycopy Time Seen by Provider: 10/30/24 12:11 History of Present Illness HPI Narrative: Pt is a 44-year-old female with a PMH significant for?hx of DVT/PE on Eliquis, Crohn's disease on chronic TPN, Behcet's disease, hx of chylothorax, chronic SVC obstruction, and chronic pain syndrome who presents to the ED for evaluation of worsening SOB?and difficulty breathing since discharge from the hospital yesterday. Pt had a prolonged and complicated hospital stay from 08/20-09/04 where she was initially treated for abdominal pain secondary to norovirus, but hospital course was complicated when she became hypoxic and tested positive for flu and CT showed right lower lobe pneumonia with parapneumonic effusion and loculation suggestive of empyema. PATIENT TODAY WAS GETTING HER PAIN PUMP ADJUSTED. Bupivacaine was injected through the pump. customer acquisition specialist evaluated the palm a may not have been functioning when he aspirated the pump there was pinkish CSF. Medication from pump namely bupivacaine could have gotten into the thecal sac but patient is moving all extremities. Patient has no focal weakness. Was noted to have a low blood pressure decreased heart rate. Question bupivacaine got into the periphery. On arrival in the emergency department patient's blood pressure was low proximally 70/40. Also had a low heartbeat. She was unable to give detailed history she was able to tell me her name Related Data Home Medications ?Medication ?Instructions ?Recorded ?Confirmed fluticasone furoate 200 1 inh inhalation Q24H 12/12/20 09/17/24 mcg-vilanterol 25 mcg/dose inhalation powder (Breo Ellipta) umeclidinium 62.5 mcg/actuation 1 inh inhalation DAILY 12/12/20 09/17/24 blister powder for inhalation (Incruse Ellipta) diphenhydramine HCl 50 mg/mL 25 mg IV QID PRN Nausea 03/12/21 09/17/24 injection solution ondansetron HCl (PF) 4 mg/2 mL 4 mg IV QID PRN Nausea 03/12/21 09/17/24 injection solution promethazine 25 mg tablet 25 mg PO QID PRN Nausea And 08/18/21 09/17/24 Vomiting levetiracetam 100 mg/mL oral 700 mg PO BID 08/20/24 09/17/24 solution Previous Rx's ?Medication ?Instructions ?Recorded apixaban 5 mg tablet (Eliquis) 5 mg PO BID #60 tabs 02/15/23 albuterol sulfate 90 mcg/actuation 2 puff inhalation Q4-6H PRN 09/10/23 aerosol inhaler shortness of breath or wheezing #8.5 grams naloxone 4 mg/actuation nasal 4 mg intranasal Q2M PRN opioid 02/02/24 spray (Narcan) overdose #2 ea cefuroxime axetil 500 mg tablet 500 mg PO BID #28 tabs 09/04/24 dicyclomine 10 mg capsule 10 mg PO QIDACHS #56 caps 09/04/24 doxycycline hyclate 100 mg tablet 100 mg PO BID #28 tabs 09/04/24 prednisone 10 mg tablet See Taper PO DIRECTED #30 tabs 09/04/24 hydromorphone 4 mg tablet 4 mg PO BID PRN severe pain (scale 10/19/24 score 7-10) 30 days #60 tabs Allergies Allergy/AdvReac Type Severity Reaction Status Date / Time ciprofloxacin [Cipro] Allergy Unknown Hives Verified 10/30/24 12:14 levofloxacin [Levaquin] Allergy Unknown Hives Verified 10/30/24 12:14 metoclopramide [Reglan] Allergy Unknown Hives Verified 10/30/24 12:14 ondansetron [Zofran] Allergy Unknown Itching Verified 10/30/24 12:14 penicillin V Allergy Unknown Hives Verified 10/30/24 12:14 prochlorperazine Allergy Unknown Shortness Verified 10/30/24 12:14 [From Compazine] of Breath Sulfa (Sulfonamide Allergy Unknown Hives Verified 10/30/24 12:14 Antibiotics) thalidomide [From Thalomid] Allergy Unknown Rash Verified 10/30/24 12:14 haloperidol [From Haldol] Allergy Itching Verified 10/30/24 12:14 Review of Systems Review of Systems: POSITIVE GENERALIZED MALAISE WEAKNESS Unable to provide detailed review of systems PMFSH Past Medical History Attestation statement: The following information was validated with the patient. Medical History ILD (interstitial lung disease) Enterocutaneous fistula Pulmonary emboli Crohn's disease Chronic, continuous use of opioids Immunosuppression Absence seizure disorder DVT (deep venous thrombosis) Pyloric stenosis Asthma Common variable immunodeficiency Spondylolisthesis, lumbar region Spondylosis of lumbar region without myelopathy or radiculopathy Abdominal pain, chronic, generalized Gastroparesis Spontaneous pneumothorax Chronic pain syndrome Cervicalgia Low back pain Behcet's disease Surgical History History of thoracotomy Hx of gastrostomy History of hernia surgery Family History Family History Father Hairy cell leukemia Social History Social History Household Members: Children Household Members Other:: son Housing: House Do you presently have visiting nurse or other home services: No Unable to assess alcohol history related to: Unknown Alcohol intake: never Patient Tobacco Use Status: Never used Tobacco Smoked in Last 30 Days: No Second Hand Smoke Exposure: No Use of substances other than those prescribed or required for medical reasons: No Advance Directives: Yes Advance Directives on File: Yes Advance Directives Date on File: 04/22/23 Do you have a plan to hurt others: No Plan Patient : No service: No Current occupational status: unemployed Physical Exam Vital Signs: Vital Signs: Last Vital Signs Temp 98 F 10/30/24 18:21 Pulse 76 10/30/24 18:21 Resp 18 10/30/24 18:21 BP 120/57 L 10/30/24 18:21 Pulse Ox 98 10/30/24 14:34 O2 Del Method Room Air 10/30/24 18:21 BMI result Body Mass Index 30.0 Appearance: Lethargic weak Eyes: Pupils equal, round and reactive to light. ENT: Pharynx normal. Neck: Normal inspection. Neck supple. No lymph nodes noted. No crepitus CVS: Normal heart rate and rhythm. Pulses normal. Normal S1 and S2 Respiratory: No respiratory distress. Breath sounds normal. No Wheezing. No rales Abdomen: Soft and nontender. No rigidity. No distention. good BS x4 Skin: Skin warm and dry. Normal skin color. Normal skin turgor. Extremities: No lower extremity edema. Neurovascular intact to all extremities. No Lacerations. No Rash Neuro: Lethargic but answering questions moving all extremities. Medications Administered Discontinued Medications Generic Name Dose Route Start Last Admin Trade Name Freq PRN Reason Stop Dose Admin Diphenhydramine HCl 25 mg 10/30/24 12:12 10/30/24 12:28 Diphenhydramine Hcl 50 Mg/Ml Vial IVPUSH 10/30/24 12:13 25 mg ONCE ONE Administration Epinephrine 0.1 mg 10/30/24 12:14 10/30/24 12:29 Epinephrine 1 Mg/Ml Vial IVPUSH 10/30/24 12:15 Not Given STAT STA Sodium Chloride 1,000 mls @ 999 mls/hr 10/30/24 12:15 10/30/24 14:12 Ns IV 10/30/24 13:15 Infused .Q1H1M ANNA Infusion Sodium Chloride 1,000 mls @ 999 mls/hr 10/30/24 12:15 10/30/24 13:28 Ns IV 10/30/24 13:15 Infused .Q1H1M ANNA Infusion Lactated Ringer's 1,000 mls @ 999 mls/hr 10/30/24 12:30 10/30/24 13:01 Lr IV 10/30/24 13:30 Infused .Q1H1M ANNA Infusion Cefepime HCl 2 gm in 50 mls @ 100 mls/hr 10/30/24 13:45 10/30/24 14:31 Maxipime IV 10/30/24 14:14 100 mls/hr ONCE ONE Administration Iohexol 100 ml 10/30/24 17:10 10/30/24 17:10 Iohexol 350 Mg/Ml 100 Ml Infus..Btl IV 10/30/24 17:11 65 ml ONCE ONE Administration Ondansetron HCl 4 mg 10/30/24 12:12 10/30/24 12:27 Ondansetron Hcl 4 Mg/2 Ml Vial IVPUSH 10/30/24 12:13 4 mg ONCE ONE Administration Medical Decision Making Medical Decision Making MDM Narrative: Patient initially presented from a rapid response. Blood pressure was low bradycardic on a monitored appears to be a sinus rhythm heart rate is about 45. An EKG was done. My interpretation of that EKG showed a sinus rhythm heart rate was 45 VA QRS QTC normal there is no acute ST segment elevation. Patient has appears to have a PICC line. It is wide open. Proceeded to get an external jugular vein. There was no complication now is flowing nicely bloods were obtained. 2 L of fluid in patient's blood pressure recovered to 110/60. Had a long discussion with pain specialist who did the procedure did not feel this is secondary to the pain pump. The bupivacaine from the pump could have leaked into the surrounding tissue. There could be bupivacaine in the thecal sac but patient is moving all extremities. Patient denies having any fever chills. Was fine prior to arrival for the pain pump adjustment. Zofran was given for nausea I reviewed patient's medication list she has multitude of allergies including allergies to Reglan allergies to Zofran allergy to Compazine allergy to Haldol. Patient had had Zofran in the past with Benadryl. Labs ordered. Will monitor very carefully. Patient has a history of being on Eliquis. Patient received a angio of the chest. There is no evidence for PE. There is scarring that is old. There is no infiltrate that was noted. Patient's O2 sats maintained at over 90% without any difficulty. She has a history of interstitial lung disease. Ambulated well in the emergency department without any difficulty. Out of abundance of caution additional troponin was done was negative. Patient is has no evidence for pneumonia has a normal white count. Lactate is less than 2. After hydration symptom much relieved. Had a long discussion with pain management who did the procedure earlier. [place] it is not related to the procedure itself. Patient's white count is normal. There is no signs of infection. After discussing with pain management elected to discharge patient home. Patient's BNP is 39 there is no evidence for congestive heart failure. Currently in stable condition. Differential Diagnosis Differential Diagnoses: The differential diagnosis associated with the presentation includes Vasovagal episode, medication induced, syncope near-syncope, Admission/Observation Consideration of admission/observation: Escalation of care including admission/observation considered Consult Healthcare Provider Management of the patient was discussed with: Day Care Aide (Pain management) Lab Data [facility] Lab Attestation statement: I reviewed the patient's lab results. 10/30/24 12:17 10/30/24 12:17 Labs: Lab Results 10/30/24 10/30/24 10/30/24 Range/Units 11:55 12:17 12:56 WBC 6.7 (4.8-10.8) X10*3/uL RBC 3.86 L (4.20-5.50) X10*6/uL Hgb 11.3 L (12.0-16.0) g/dl Hct 33.4 L (37.0-47.0) % MCV 86.5 (80.0-98.0) fL MCH 29.3 (27.0-33.0) pg MCHC 33.8 (31.0-35.0) g/dl RDW 13.2 (11.0-16.0) % Plt Count 213 (160-400) X10*3/uL MPV 10.7 (9.4-12.3) fL Immature Gran % (Auto) 0.3 (0.0-0.4) % Neut % (Auto) 57.1 (45-73) % Lymph % (Auto) 30.7 (20-40) % Hunt % (Auto) 10.0 (2-11) % Eos % (Auto) 1.5 (0-4) % Baso % (Auto) 0.4 (0-2) % Lymph # (Auto) 2.1 (1.2-4.9) X10*3/uL Hunt # (Auto) 0.7 (0.1-1.2) X10*3/uL Eos # (Auto) 0.1 (0.0-0.4) X10*3/uL Baso # (Auto) 0.0 (0.0-0.2) X10*3/uL Abs Immat Gran (auto) 0.02 (0.00-0.03) X10*3/uL Absolute Neuts (auto) 3.8 (2.0-8.3) x10*3/uL Absolute Nucleated RBC 0.000 (0.0-0.012) X10*3/uL Nucleated RBC % (auto) 0.0 (0.0-0.2) /100WBC PT 12.2 (10.9-12.4) SEC INR 1.1 (0.9-1.1) Sodium 141 (135-145) mmol/L Potassium 3.9 (3.3-5.1) mmol/L Chloride 108 (96-108) mmol/L Carbon Dioxide 27 (22-29) mmol/L Anion Gap 10 L (12-20) BUN 16 (9-16) mg/dL Creatinine 0.75 (0.5-1.4) mg/dL Estim Creat Clear Calc 81.6 Estimated GFR > 60 POC Glucose 103 (60-115) mg/dL Random Glucose 93 (60-115) mg/dL Lactic Acid 1.8 (0.5-2.0) mmol/L Calcium 8.9 D (8.4-10.2) mg/dL Total Bilirubin 0.3 (0.0-1.0) mg/dL Direct Bilirubin 0.1 (0.0-0.5) mg/dL AST 27 (5-31) U/L ALT 21 (0-31) U/L Alkaline Phosphatase 46 (39-117) U/L Troponin I High Sens < 2.7 (<3.5-17.0) ng/L B-Natriuretic Peptide 39 (<100) pg/mL Total Protein 5.6 L (6.5-8.0) g/dL Albumin 4.0 (3.5-5.0) g/dL Independent Interpretation I performed an independent interpretation of an: EKG (My interpretation patient's EKG showed a sinus rhythm heart rate is 50 VA QRS QTC normal there is no acute ST segment elevation noted.) and CT Scan (I reviewed patient's CTA no gross infiltrate noted. No pneumonia no pneumothorax) Radiology Impression Discussion of test interpretation with radiology: I have reviewed the radiologist's reading. Independent Historian Clinical information obtained from an independent historian. History obtained from or confirmed by: Other (Pain management) External Record Review External record reviewed: Inpatient record Chronic Conditions History of superior vena cava syndrome history of PE history of chronic pain history of interstitial lung disease Social Determinants Patient?s care significantly limited by Social Determinants of Health including: Problems related to primary support group Discharge Plan Discharge Clinical Impression: Behcet's disease, Low back pain, Medication adverse effect Patient Disposition: Home, Self-Care Instructions: Acute Low Back Pain (ED), Near Syncope (ED) Prescriptions: No Action hydromorphone 4 mg tablet 4 mg PO BID PRN (Reason: severe pain (scale score 7-10)) 30 Days Qty: 60 0RF Rx Instructions: Partial fill per patient's request only Incruse Ellipta 62.5 mcg/actuation Blister With Device 1 inh INHALATION DAILY fluticasone furoate-vilanterol [Breo Ellipta] 200-25 mcg/dose Blister With Device 1 inh INHALATION Q24H diphenhydramine HCl 50 mg/mL solution 25 mg IV QID PRN (Reason: Nausea) ondansetron HCl (PF) 4 mg/2 mL solution 4 mg IV QID PRN (Reason: Nausea) promethazine 25 mg Tablet 25 mg PO QID PRN (Reason: Nausea And Vomiting) albuterol sulfate 90 mcg/actuation HFA aerosol inhaler 2 puff inhalation Q4-6H PRN (Reason: shortness of breath or wheezing) Qty: 8.5 0RF levetiracetam 100 mg/mL solution 700 mg PO BID dicyclomine 10 mg Capsule 10 mg PO QIDACHS Qty: 56 0RF prednisone 10 mg tablet See Taper PO DIRECTED Qty: 30 0RF Taper: Prednisone 40 mg daily for 3 Days and 0 Hour 30 mg daily for 3 Days and 0 Hour 20 mg daily for 3 Days and 0 Hour 10 mg daily for 3 Days and 0 Hour Rx Instructions: see taper instructions cefuroxime axetil 500 mg tablet 500 mg PO BID Qty: 28 0RF doxycycline hyclate 100 mg tablet 100 mg PO BID Qty: 28 0RF Eliquis 5 mg tablet 5 mg PO BID Qty: 60 0RF naloxone [Narcan] 4 mg/actuation spray,non-aerosol 4 mg intranasal Q2M PRN (Reason: opioid overdose) Qty: 2 0RF Rx Instructions: spray 1 dose into ONE nostril; alternate nostrils w each dose until help arrives Referrals: Manny Pedroza MD [Physician] - 10/31/24 Print Language: Divehi
[2024-10-30] MEDS: diphenhydrAMINE HCL 50 MG/ML VIAL 25 MG IVPUSH (12:28)
--- NOTE | 2024-10-30 12:37 | PC.NURSE ---
pt came to ed as rapid response from having a procedure in the pain clinic, pt had witnessed syncopal episode and was bradycardic/hypotensive upon reaching the ED, RT EJ and labs were drawn by our provider Dr. 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
[2024-10-30 12:38] LABS: Alanine Aminotransferase 21 U/L (0-31); Alkaline Phosphatase 46 U/L (39-117); Anion Gap 10 (12-20); Aspartate Amino Transferase 27 U/L (5-31); Bilirubin Direct 0.1 mg/dL (0.0-0.5); Bilirubin Total 0.3 mg/dL (0.0-1.0); Blood Urea Nitrogen 16 mg/dL (9-16); Calcium 8.9 mg/dL (8.4-10.2); Carbon Dioxide 27 mmol/L (22-29); Chloride 108 mmol/L (96-108); Creatinine Clr Calc Pharmacy 81.6; Estimated Glomerular Filt Rate > 60; Glucose Random 93 mg/dL (60-115); Potassium 3.9 mmol/L (3.3-5.1); Sodium 141 mmol/L (135-145); Total Protein 5.6 g/dL (6.5-8.0)
[2024-10-30 12:39] LABS: Lactic Acid 1.8 mmol/L (0.5-2.0)
[2024-10-30 12:46] LABS: Troponin-I High Sensitivity < 2.7 ng/L (<3.5-17.0)
[2024-10-30 13:11] LABS: INTERNATIONAL NORM RATIO 1.1 (0.9-1.1); Prothrombin Time 12.2 SEC (10.9-12.4)
[2024-10-30 14:13] LABS: B Type Natriuretic Peptide 39 pg/mL (<100)
[2024-10-30] MEDS: cefEPime HCl/D5W 2 GM/50 ML PIGGYBACK IV (14:31)
--- NOTE | 2024-10-30 14:33 | PC.NURSE ---
patient a&ox3, states she is feeling much better, IVF have completed, pt being medicated with iv abx, activities specialist intact nsr on monitor, vss call khan within reach, plan of care ongoing
[2024-10-30] MEDS: iohexoL 350 MG/ML 100 ML INFUS..BTL IV (17:10)
--- NOTE | 2024-10-30 19:29 | PC.NURSE ---
upon assuming care at 1915, no abx infusing. pt ready for discharge, called son to pick her up vss at d/c nad. pt states port stays accessed. other ivs removed.
== END 2024-10-30 19:30 | disposition home or self-care (01) ==
PROVIDERS: Emergency Provider Emergency Medicine Emergency Medical Services
DX: T41.3X1A Poisoning by local anesthetics, accidental (unintentional), initial encounter (principal); R53.1 Weakness; I95.9 Hypotension, unspecified; R11.0 Nausea; R00.1 Bradycardia, unspecified; R06.02 Shortness of breath; M35.2 Behcet's disease; G89.4 Chronic pain syndrome; M54.59 Other low back pain; M47.896 Other spondylosis, lumbar region; J45.909 Unspecified asthma, uncomplicated; Y92.238 Other place in hospital as the place of occurrence of the external cause; Z53.09 Procedure and treatment not carried out because of other contraindication; Z86.718 Personal history of other venous thrombosis and embolism; Z79.01 Long term (current) use of anticoagulants
CPT/HCPCS: 36415; 64555; 71045; 71275; 80048; 80076; 82947; 83605; 83880; 84484; 85025; 85610; 87040; 93005; 96361; 96365; 96366; 96375; 99285; J0692; J1200; J2003; J2405; J7120; Q9967

== ENCOUNTER → 2024-10-30 11:58 | Outpatient (BNV) | payer MEDICARE, MEDICAID, SELFPAY | PROVIDERS: Emergency Provider Emergency Medicine Emergency Medical Services; Visit Provider Internal Medicine Cardiovascular Disease | DX: R00.1 Bradycardia, unspecified (principal) | CPT/HCPCS: 93010 ==

== ENCOUNTER → 2024-10-30 12:30 | Outpatient (BNV) | payer MEDICARE, MEDICAID, SELFPAY | PROVIDERS: Emergency Provider Emergency Medicine Emergency Medical Services; Visit Provider Radiology Diagnostic Radiology | DX: J84.9 Interstitial pulmonary disease, unspecified (principal); R06.02 Shortness of breath | CPT/HCPCS: 71045 ==

== ENCOUNTER 2024-11-08 11:22 | Outpatient (AMB) | payer MEDICARE, MEDICAID, SELFPAY ==
[2024-11-08 11:53] VITALS: BP 109/61; PULSE 61; RESP 18
--- NOTE | 2024-11-08 11:53 | MHC.OFFVIS ---
Vital Signs 11/08/24 11:53 BP 109/61 Blood Pressure Location Rt radial Position Sitting Respiration 18 Pulse 61 Pulse Source Pulse Oximeter Intake Visit Reasons: S/p Sprint PNS Trial/pump fill/pill count Allergies ciprofloxacin (Cipro) Allergy (Unknown, Verified 11/08/24 11:52) Hives levofloxacin (Levaquin) Allergy (Unknown, Verified 11/08/24 11:52) Hives metoclopramide (Reglan) Allergy (Unknown, Verified 11/08/24 11:52) Hives ondansetron (Zofran) Allergy (Unknown, Verified 11/08/24 11:52) Itching penicillin V Allergy (Unknown, Verified 11/08/24 11:52) Hives prochlorperazine (From Compazine) Allergy (Unknown, Verified 11/08/24 11:52) Shortness of Breath Sulfa (Sulfonamide Antibiotics) Allergy (Unknown, Verified 11/08/24 11:52) Hives thalidomide (From Thalomid) Allergy (Unknown, Verified 11/08/24 11:52) Rash haloperidol (From Haldol) Allergy (Verified 11/08/24 11:52) Itching HPI Comments Details: Brooklyn is in the office today for intrathecal pain pump medication refill and the follow-up. The incident with possible high spinal versus sympathetic blockade on the administration of the bupivacaine after the prime bolus in the injection area completely resolved. She had nausea and hypotension after attempted dye study in the operating room and administration of the prime bolus. The patient reports no problem. The pain pump is filled as below. I recommended patient to be careful with administration of the bupivacaine PTM doses. I recommended her to wait for 1 day before administering the next dose, I also recommended her to take addition of the dose after that 1 dose in 1 day. Patient expressed understanding. The pump refill see as below. She reports that stimulation on the right side helps her pain moderately. Four on for now we will continue stimulation in the right side. I am not very eager to perform another dye study for this patient. Prior: Brooklyn is 41 years old female who is suffering from multiple medical conditions including Bencet disease, Crohn's disease, she is immunocompromised.? Her pain involves chronic abdominal pain and lower back pain.? She also has a chronic pelvic pain.? She is on chronic oral opioid therapy for 3 years.? [facility] Medical History ILD (interstitial lung disease) Enterocutaneous fistula Pulmonary emboli Crohn's disease Chronic, continuous use of opioids Immunosuppression Absence seizure disorder DVT (deep venous thrombosis) Pyloric stenosis Asthma Common variable immunodeficiency Spondylolisthesis, lumbar region Spondylosis of lumbar region without myelopathy or radiculopathy Abdominal pain, chronic, generalized Gastroparesis Spontaneous pneumothorax Chronic pain syndrome Cervicalgia Low back pain Behcet's disease Surgical History History of thoracotomy Hx of gastrostomy History of hernia surgery Family History Father Hairy cell leukemia Social History Household Members: Children Household Members Other:: son Housing: House Do you presently have visiting nurse or other home services: No Unable to assess alcohol history related to: Unknown Alcohol intake: never Patient Tobacco Use Status: Never used Tobacco Second Hand Smoke Exposure: No Advance Directives Date on File: 04/22/23 service: No Current occupational status: unemployed Review of Systems Const All systems reviewed & are unremarkable except as noted in HPI and below Physical Exam Vital Signs: Last Vital Signs Pulse 61 11/08/24 11:53 Resp 18 11/08/24 11:53 BP 109/61 11/08/24 11:53 Const General: cooperative, no acute distress and alert Orientation/consciousness: patient oriented x3 HEENT Head: Yes normocephalic and Yes atraumatic Ears: hearing grossly normal bilaterally Eyes General: appearance normal, both eyes and all related structures Alignment and Position: alignment normal and position normal Periorbital: periorbital findings normal Eyelids: Yes eyelids normal Pupils: Equal, round and reactive pupils present, pupils equal and not dilated EOM: EOMs intact bilaterally Direct Ophthalmoscopy: no photophobia Neck Neck: Yes normal visual inspection and Yes no JVD Resp Effort & Inspection: normal respiratory effort, able to speak in complete sentences and no audible wheezes Cardio Jugular venous distension: no JVD GI Inspection: Yes incision and Yes scar Back/Spine/Pelvis Other: Tenderness on palpation in projection of the paraspinal spinal region L3-L4-L5 area. Test is positive bilaterally. Misael test is equivocal and pelvic compression test is negative. Cervical Spine: normal cervical lordosis Thoracic/Lumbar Spine: thoracic and lumbar spine normal to inspection Neuro General: patient oriented x3, gait normal and moves all extremities Cranial nerves: Yes Equal, round and reactive pupils present Assessment & Plan Assessment & Plan (1) Cervicalgia: Code(s): M54.2 - Cervicalgia Category: Medical Plan: (2) Behcet's disease: Code(s): M35.2 - Behcet's disease Category: Medical Plan: (3) Low back pain: Code(s): M54.5 - Low back pain Category: Medical (4) Chronic abdominal pain: Code(s): R10.9 - Unspecified abdominal pain; G89.29 - Other chronic pain Category: Medical Plan: ? Intrathecal pump refill. The patient came today in the office for the change of the medication in the pain pump. The name and date of were verified and informed consent was obtained for the procedure. The pump was interrogated and the residual amount of fluid was found to be 13.9 mL. SHE WAS POSITIONED prone on the bed AND THE AREA OF THE INTRATHECAL PUMP WAS PREPPED WITH CHLORAPREP. The fenestrated drape was sterilely applied over the area of the pump. Sterile gloves were worn and of the aspiration system was assembled containing 2 in 22 gauge noncoring needle, the needle was connected to extension tubing which was connected to the 20 cc sterile syringe. The pain pump was palpated under the skin in the patient's left buttock area. The needle was inserted through the skin and the central plug of the pain pump and fluid was aspirated. The clear fluid was going into the syringe the total amount of the fluid was 13.0 mL .. After that a new batch? of medication was obtained which was containing bupivacaine in the concentration of 28 milligrams/mL.. The admixture was made in 20 cc syringe prepared by [facility] compounding pharmacy. The syringe was connected to the bacterial filter, and then connected to the extension tubing. After that the medication in the syringe was slowly instilled into the pump with aspirations at 15 and 5 cc joiner.? The pump was reprogrammed continuous dose of 1.953 mg a day as well as for possible administrations per day of bupivacaine 1.699 mg every 4 hours 4 times a day with the length of the time of the administration of each PTM dose at 59 minutes (5) Postdural puncture headache: Code(s): G97.1 - Other reaction to spinal and lumbar puncture Category: Medical Plan I recommended the patient to perform only continuous medication for the next 24 hours. After that she can not try to administer herself boluses Tuesday she can not do 1 bolus, Tuesday she can not do 2 boluses, Tuesday she can not do 3 boluses, and Tuesday she can not do all 4 boluses invited that there will be no side effects. All of this was explained to the patient. The patient expressed understanding. The bolus administration time will be 59 minutes. The next pump refill in 64 days. Patient Instructions: I here by testify that I spent 32 minutes in conversation with this patient as well as planning her care and organizing this note. Also carefully explained to the patient all the details of planned PTM bolus administration in the future. Coding Level of Care Code Est Pt Level 4 (26789) Procedure Only Diagnoses Cervicalgia M54.2 Behcet's disease M35.2 Low back pain M54.5 Chronic abdominal pain R10.9; G89.29 Postdural puncture headache G97.1
--- OUTSIDE RECORDS SUMMARY | 2024-11-08 12:55 | XMS_ITS | Data Portability ---
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 Pt reports on Tuesday04/27/20 she went to [facility] for abdominal pain, urine was tested [...] breathing unlabored Abd soft, tender LLQ, (-) Carlisle & Psoas signs, no rebound tenderness (+) [...] I have accessed patient records on the [employer]. This information was pertinent in my medical decision making today. Time On Scene with Patient: 00:00:15 [email or web address] Not available 04/30/2020 14:10:35 12/11/2020 12/11/2020 Overview/History :aMgali pretty is a 40-year-old female that [facility], she was discharged home from the hospital yesterday. She was seen by GI during her hospitalization, she does have a history of Crohn's and gastro paresis. [facility] with complaints of dizziness and nausea. [...] work up on the end of [facility]. Plan/Discussion:I discussed with the patient that I [...] after care of this patient according [facility]. 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 Pt reports recently seen in [facility] for abdominal pain. She continues to [...] care were discussed with the Virtual Physician telecommunications clerk for [facility]- Dr. Leon who agrees patient needs to go to ED for nutrition and fluids and to be seen again by GI specialist. The patient understood and agreed with this plan. The patient was given discharge instructions and all questions were answered prior to team departure. [email or web address] Not available 01/02/2021 11:51:51 04/26/2021 04/26/2021 Brief [...] Ambulatory with steady gait Work up/Results: Reviewed [facility] ER records DDx considered & Medical [...] I have accessed patient records on the [place] [employer] with patient portal. This information was pertinent in my medical decision making today. Proper Personal Protective Equipment (PPE), including gloves, surgical mask were donned and doffed appropriately and all equipment cleaned using approved technique with germicidal disposable wipes prior to and after care of this patient according to [facility] infection prevention protocols. Time On Scene with Patient: 00:25:23 [email or web address] Not available 04/26/2021 19:41:52 01/25/2022 01/25/2022 Overview/History : 41 year old female known to but new to provider with a history of DVT/PE on Eliquis, asthma, Bachets Dx, chronic gastroparesis with home TPN therapy via port, immune deficiency seen today for not feeling well after dx with UTI at [facility] late last night/early this am. Went [...] did not have childcare coverage. Went to [facility] last night for headache, acute on [...] at approximately 2am (now 215pm). Did not pick up attendant Rx for antibiotic or pyridium. Pt showed [...] not limited to: -UTI: per pt with [facility], culture pending -Dehydration: considered as cause of headache with normal BYN/Cr on labs though -Sinusitis: considered with frontal headache but no rhinorrhea, URI signs -Acute on chronic abd pain/gastroparesis flare Work up/Results: None indicated; pt needs to pick up attendant prescribed meds as due for antibiotic Plan/Discussion: UTI -Increase fluids as tolerated to improve UTI and headache; use in conjunction with IV zofran - blending supervisor antibiotics (Macrobid and pyridium) -Take Excedrin scheduled [...] Go To The Location Of Their Choice, [id number] 1 12:36:46 urinalysis, dipstick [address] - [place], [address] [place] [address] [place], [address], 0 11:32:18 culture, urine - [facility] by [facility] [address] [place] [facility] (Centralized Electronic Ordering - All Locations), Patient Can Go To The Location Of Their Choice, [id number] 0 10:13:17 Referral None recorded. Procedures None recorded. Surgeries None recorded. Imaging None recorded. Medication Orders nitrofurant oin monohydrate /macrocryst als 100 mg capsule 2020 [facility] #[id number], [address] [facility] , [place], [address], 19:32:33 Patient TargetsNo targets recorded. Patient Instructions Encounter Date Encounter Id Patient Instructions Last Modified By Organization Details Last Modified Time 04/30/2020 [id number] We tested your urine today, there is [...] in your condition between 8am-10pm, please call [facility] at [phone] to help navigate your care. [email or web address] Not available 04/30/2020 11:32:17 12/31/2020 [id number] Care escalated t o ED [email or web address] Not available 12/31/2020 14:39:34 04/26/2021 [id number] URINARY TRACT INFECTION INSTRUCTIONS BASIC INFORMATION Urinary tract infections(UTI) can involve any portion of the urinary tract. The most common presentation is a bladder infection/cystitis, which usually presents with urinary frequency, burning with urination, urgency, foul smelling cloudy urine and occasionally blood. Kidney infections are less frequent, but more serious, and present with fever, flank pain, malaise and sometimes shaking chills. UTI s are common in women because of the female anatomy, and much less common in males. INSTRUCTIONS Drink plenty of fluid, water is best. Drinking fluids will help to flush the bacteria from your body. Urinate every 2-3 hours Wear cotton underwear and avoid Nylon, Spandex and Lycra which tend to trap moisture and thong underwear which may facilitate UTI s. Avoid tub baths Avoid using Super Tampons [...] in your condition between 8am-10pm, please call [facility] at [phone] to help navigate your care. [email or web address] Not available 04/26/2021 19:41:58 01/25/2022 [id number] --You were seen today for ongoing headache, acute on chronic left abdominal pain with negative cat scan -You were diagnosed with UTI in ER; pick up attendant your antibiotics and pyridium -Increase your water [...] Go To The Location Of Their Choice, [id number] 05/02/2020 10:13:17 04/30/2005/01/2020 cultu re, urine special requests NONE Not Available [facility] (Centralized Electronic Ordering - All Locations) Patient Can Go To The Location Of Their Choice, [id number] 05/02/2020 10:13:17 04/30/2005/02/2020 cultu re, urine culture <10,00 0 COL/ML abnormal Not Available [facility] (Centralized Electronic Ordering - All Locations) Patient Can Go To The Location Of Their Choice, [id number] 05/02/2020 10:13:17 04/30/2005/02/2020 cultu re, urine report status FINAL 2019 Not Available [facility] (Centralized Electronic Ordering - All Locations) Patient Can Go To The Location Of Their Choice, [id number] 05/02/2020 10:13:17 04/30/2004/30/2020 urina lysis , dipst ick Appearance clear Not Available Spr - [facility] [address]me [address], [place], [address], 04/30/2020 11:29:27 04/30/20 20 04/30/2020 urina lysis , dipst ick Color yellow Not Available Spr - Home [address], [place], [address], 04/30/2020 11:29:27 04/30/2004/30/2020 urina lysis , dipst ick Glucose negati ve Not Available Spr - Home [address], [place], [address], 04/30/2020 11:29:27 04/30/20 20 04/30/2020 urina lysis , dipst ick Bilirubin negati ve Not Available Spr - Home [address], [place], [address], 04/30/2020 11:29:27 04/30/20 20 04/30/2020 urina lysis , dipst ick Ketones NEG Not Available Spr - Home [address], [place], [address], 04/30/2020 11:29:27 04/30/20 20 04/30/2020 urina lysis , dipst ick Sp. [place] 1.030 Not Available Spr - Home [address], [place], [address], 04/30/2020 11:29:27 04/30/20 20 04/30/2020 urina lysis , dipst ick Blood + Not Available Spr - Home [address], [place], [address], 04/30/2020 11:29:27 04/30/20 20 04/30/2020 urina lysis , dipst ick pH 5.0 Not Available Spr - Home [address] [place], [address], 04/30/2020 11:29:27 04/30/20 20 04/30/2020 urina lysis , dipst ick Protein negati ve Not Available Spr - Home [address] [place], [address], 04/30/2020 11:29:27 04/30/20 20 04/30/2020 urina lysis , dipst ick Urobilirubin negati ve Not Available Spr - Home [address] [place], [address], 04/30/2020 11:29:27 04/30/20 20 04/30/2020 urina lysis , dipst ick Nitrites NEG Not Available Spr - [facility] e [address] [place], [address], 04/30/2020 11:29:27 04/30/20 20 04/30/2020 urina lysis , dipst ick Leukocytes NEG Not Available Spr - H [address]me [address], [place], [address], 04/30/2020 11:29:27 04/26/20 21 04/27/2021 URINE CULTU RE specimen description URINE Not Available [facility] (Centralized Electronic Ordering - All Locations) Patient Can Go To The Location Of Their Choice, [id number] 05/01/2021 19:07:04 04/26/20 21 04/27/2021 URINE CULTU RE special requests NONE Not Available [facility] (Centralized Electronic Ordering - All Locations) Patient Can Go To The Location Of Their Choice, [id number] 05/01/2021 19:07:04 04/26/20 21 04/28/2021 URINE CULTU RE culture NO GROWTH Not Available [facility] (Centralized Electronic Ordering - All Locations) Patient Can Go To The Location Of Their Choice, [id number] 05/01/2021 19:07:04 04/26/20 21 04/28/2021 URINE CULTU RE report status FINAL 2020 Not Available [facility] (Centralized Electronic Ordering - All Locations) Patient Can Go To The Location Of Their Choice, [id number] 05/01/2021 19:07:04 Result Notes None recorded. Problems Name Problem SNOMED Code Status Onset Date Resolution Date Notes Provider Name and Address Organization Details Recorded Time Gastroparesi s syndrome 664972316 Active 2018 ELAINE PEREZ NP [address], [facility] [place], [address], [place] [facility] 9 13:12:39 Behcet's syndrome 714439437 Active 2019 America Ferrera NP [address], [facility] [place], [address], [place] [facility] 0 21:06:32 Deep venous thrombosis 374517799 Active 2019 America Ferrera NP [address], [facility] [place], [address], [place] [facility] 0 21:06:41 Pulmonary embolism 72223953 Active 2019 America Ferrera NP [address], [facility] [place], [address], [place] [facility] 0 21:06:53 Crohn's disease 65805300 Active 2019 America Ferrera NP [address], [facility] [place], [address], [place] [facility] 0 21:46:14 Problem Notes None recorded. Procedures Surgical History Date Name Laterality Status Provider Name and Address Organization Details Recorded Time 01/26/20 22 Medication Review completed Mirlande Schmidt NP [address], [place], [address], [place] [facility] 01/25/2022 15:08:05 01/01/20 21 Medication Review completed Tete Escalante NP [address] [place], [address], [place] [facility] 12/31/2020 13:43:54 05/20/20 19 Venipuncture - completed ELAINE PEREZ NP [address], [place], [address], [place] [facility] 05/24/2019 12:06:55 05/20/20 19 ECG Interpretation - DH completed ELAINE PEREZ, DIRECTOR OF STRATEGIC PROGRAMS [address], [place], [address], [place] [facility] 05/20/2019 20:46:01 Port, indwelling, imp completed ANDREWS HUNTLEY, DIRECTOR OF STRATEGIC PROGRAMS [address], [place], [address], [place] [facility] 04/26/2021 19:09:01 Remove tonsils [...] 02/26/2019 13:37:50 Hernia repair w/mesh completed HARJINDER UNGER, [place]AR[place] [address], [place], [address], [place] [facility] 02/24/2019 09:17:51 Imaging Results None recorded. Procedure Notes None recorded. Medical Equipment None Reported. Allergies Allergen ID Allergen Name Allergen Category Reaction Reaction Severity Criticality Documentation Date Start Date Code Code System Note Provider Name and Address Organization Details Recorded Time 43398 Product containin g penicilli n (product) medicatio n rash Not available Not available 01/13/2019 54176 8001 SNOMED Nora more-e rickso null, [place] [facility] 13:37:49 00082 Bactrim medicatio n rash Not available Not available 01/13/2019 23218 9 RxNorm Nora more-e rickso null, [place] [facility] 13:37:49 74638 Reglan medicatio n rash Not available Not available 01/13/2019 9230 RxNorm Nora more-e rickso null, [place] [facility] 9 13:37:49 84742 Cipro medicatio n rash Not available Not available 01/13/201986052 3 RxNorm Nora more-e rickso null, [place] [facility] 9 13:37:49 71148 thalidomi de medicatio n hives Not available Not available 01/13/2019 72359 RxNorm Nora more-e rickso null, [place] [facility] 9 13:37:49 76477 Avelox medicatio n rash Not available Not available 01/13/2019 16233 6 RxNorm Nora more-e rickso null, [place] [facility] 9 13:37:49 39899 Compazine medicatio n rash Not available Not available 01/13/201976497 6 RxNorm Nora more-e rickso null, [place] [facility] 9 13:37:49 06262 penicilla mine medicatio n Not available Not available Not available 02/24/2019 7975 RxNorm HARJINDER UNGER, DIRECTOR OF STRATEGIC PROGRAMS [address] [place], [address], [place] [facility] 9 09:14:07 66328 Bactrim medicatio n Not available Not available Not available 02/24/2019 26380 9 RxNorm ELAINE PEREZ , [place] [address] [place], [address], [place] [facility] 9 13:11:15 77241 Reglan medicatio n Not available Not available Not available 02/24/2019 9230 RxNorm ELAINE PEREZ , [place] [address] [place], [address], [place] [facility] 9 13:11:30 70268 Cipro medicatio n Not available Not available Not available 02/24/201963473 3 RxNorm ELAINE PEREZ , [place] [address], [place], [address], [place] [facility] 9 13:11:19 80986 thalidomi de medicatio n Not available Not available Not available 02/24/2019 43843 RxNorm ELAINE PEREZ , DIRECTOR OF STRATEGIC PROGRAMS [address], [place], [address], [place] [facility] 9 13:11:36 09430 Avelox medicatio n Not available Not available Not available 02/24/2019 96110 6 RxNorm ELAINE PEREZ , DIRECTOR OF STRATEGIC PROGRAMS [address], [place], [address], [place] [facility] 9 13:11:11 57498 Compazine medicatio n Not available Not available Not available 02/24/2019 31302 6 RxNorm ELAINE PEREZ , DIRECTOR OF STRATEGIC PROGRAMS [address], [place], [address], [place] [facility] 9 13:11:23 93880 Levaquin medicatio n Not available Not available Not available 02/24/2019 53190 2 RxNorm HARJINDER UNGER, DIRECTOR OF STRATEGIC PROGRAMS [address], [place], [address], [place] [facility] 9 09:14:57 31009 Zofran medicatio n Not available Not available Not available 02/24/2019 05028 RxNorm HARJINDER UNGER, DIRECTOR OF STRATEGIC PROGRAMS [address], [place], [address], [place] [facility] 9 [...] mm[Hg] 112 mm[Hg] 64 mm[Hg] Not Available [facility] 1 14:30:28 Date Recorded Respiratory rate Oxygen saturation Oxygen saturation in Arterial blood by Pulse oximetry Heart rate Body temperature Systolic blood pressure Diastolic blood pressure Provider Name and Address Organization Details Last Updated DateTime 1 18 /min 93 % 93 % 60 /min 97.7 [degF] 74 mm[Hg] 40 mm[Hg] Not Available [facility] 1 14:14:28 Date Recorded Oxygen saturation Oxygen saturation in Arterial blood by Pulse oximetry Heart rate Respiratory rate Body temperature Systolic blood pressure Diastolic blood pressure Provider Name and Address Organization Details Last Updated DateTime 2 95 % 95 % 80 /min 18 /min 97.3 [degF] 112 mm[Hg] 66 mm[Hg] Not Available [facility] 2 14:03:13 Date Recorded Body temperature Heart rate Respiratory rate Oxygen saturation Oxygen saturation in Arterial blood by Pulse oximetry Systolic blood pressure Diastolic blood pressure Provider Name and Address Organization Details Last Updated DateTime 1 97.8 [degF] 90 /min 20 /min 97 % 97 % 110 mm[Hg] 70 mm[Hg] Not Available [facility] 1 19:13:37 Date Recorded Body temperature Heart rate Respiratory rate Oxygen saturation Oxygen saturation in Arterial blood by Pulse oximetry Systolic blood pressure Diastolic blood pressure Provider Name and Address Organization Details Last Updated DateTime 0 97.4 [degF] 64 /min 16 /min 99 % 99 % 110 mm[Hg] 64 mm[Hg] Not Available [facility] 0 11:19:12 Social History Question Answer Notes LastModified by Organizat ion Details LastModified Time Tobacco Smoking Status Never Smoker HARJINDER UNGER NP [address] [place], [address], [place] [facility] 02/24/2019 09:16:56 Drugs Abused [...] SNOMED-CT Code Diagnosis ICD10 Code Diagnosis Note [id number] HARJINDER UNGER NP SPR - [address] [place] [address] 01/13/2019 15:41:39 01/15/2019 13:01:16 Contusion of upper arm 92235498 S40.029A [id number] HARJINDER UNGER NP SPR - [facility] [address] [facility] [place] [address] 02/24/2019 09:01:29 02/26/2019 13:15:01 Pain in throat 297096691 R07.0 Candidiasis of mouth 797 36505 B37.0 Called Pharmacist to add1 part Diphenhydr amine 12.5 mg/5 mL1 part Viscous lidocaine 2%1 part MaaloxPT will take 5ml QID swish and swallow. Pharyngitis 447525878 J0 2.9 [id number] ELAINE PEREZ NP SPR - [address] [place] [address] 04/16/2019 13:10:41 04/16/2019 20:09:51 Urinary tract infectious disease 74120705 N39.0 [id number] NIVIA CAMPBELL [facility] - [facility] [address] [facility] [address] 04/18/2019 15:47:19 04/20/2019 11:55:41 Fever 201362546 R50.9 Lower abdominal pain 545 39108 R10.30 Acute urin doris tract infection 159142341 N39.0 Headache 78156764 R51 Nausea 942546357 R11.0 [id number] ELAINE CHRIS, [place] SPR - HOME [address] [facility] [place] [address] 05/20/2019 20:06:21 05/22/2019 10:30:18 Headache 55954419 R51 Syncope and collapse 309 139075 R55 Long-term current use of anticoagulant 886802680 Z79.01 [id number] NIVIA DIAZ SPR - HOME [address] [place] [address] 07/29/2019 11:17:51 07/31/2019 18:23:01 Dizziness present 353212798 R42 Viral gastroenteritis 11 8446831 A08.4 Orthostati c hypotension 17110031 I95.1 Diarrhea 19988885 R19.7 [id number] America Ferrera NP SPR - HOME [address] [place] [address] 03/20/2020 21:03:52 03/21/2020 14:55:42 Diarrhea 06677223 R19.7 Overview/H istory: Patient is a 39 [...] sent to lab for confirmati on Dehydration 37190207 E86 .0 Abdominal pain 11150268 R10.9 Urinary tr act infectious disease 00213324 N39.0 [id number] Tete Escalante, DIRECTOR OF STRATEGIC PROGRAMS SPR - [address] [place] [address] 04/30/2020 11:13:21 04/30/2020 14:15:49 Flank pain 843372643 R10.9 [id number] NAZANIN TOLBERT, DIRECTOR OF STRATEGIC PROGRAMS SPR - HOME [address] [facility] [place] [address] 12/11/2020 14:07:27 12/19/2020 16:56:53 Nausea 292664770 R11.0 Dizziness 135087774 R42 [id number] Tete Escalante, DIRECTOR OF STRATEGIC PROGRAMS SPR - HOME [address] [place] [address] 12/31/2020 13:18:40 01/01/2021 19:35:42 Dehydration 94825349 E86.0 Abdominal pain 97891862 R10.9 [id number] ANDREWS HUNTLEY, DIRECTOR OF STRATEGIC PROGRAMS SPR - HOME [address] [facility] [place] [address] 04/26/2021 19:07:16 04/30/2021 11:12:07 Acute urinary tract infection 321746675 N39.0 [id number] Mirlande Schmidt, DIRECTOR OF STRATEGIC PROGRAMS SPR - HOME [address] [place] [place] [address] 01/25/2022 13:57:56 01/27/2022 19:23:10 Gastroparesis syndrome 047359767 K31.84 Acute on chronic Acute urin doris tract infection 192019912 N39.0 Health Concerns Section Related Observation LastModified by Organization Detai ls LastModified Time None Recorded Concern Status LastModified by Organization Details LastModified Time None Recorded Advance Directives Directive None Recorded Payers Insurance Date Sequence Insurance Name Policy Number Policy Schneider Covered Member ID Schneider Member ID Guarantor Name 02/07/2022 1 [place] [employer] Brooklyn Chavez [id number] Brooklyn Alcantara Brothlaila 02/07/2022 1 [facility] - DOS PRIOR TO 2022 - DUAL ELIGIBLE (MEDICARE REPLACEMENT/AD VANTAGE - HMO) Brooklyn L Brothers [id number] Brooklyn L Brothers 02/07/2022 2 [place] Brooklyn L Brothers [id number] Brooklyn L Brothers 02/07/2022 1 [place] [employer] Brooklyn L Brothers [id number] Brooklyn L Brothers 04/20/2019 1 *SELF PAY* Brooklyn Brothers [id number] Brooklyn L Brothers 04/20/2019 1 [place] [employer] Brooklyn L Brothers [id number] Brooklyn L Brothers 04/20/2019 1 [place] [employer] Brooklyn Brothers [id number] Brooklyn L Brothers 04/20/2019 1 *SELF PAY* Nesha Brothers [id number] Brooklyn L Brothers 04/20/2019 1 [place] Nesha Brothers [id number] Brooklyn L Brothers 05/20/2019 1 [place] [employer] Brooklyn L Brothers [id number] Brooklyn L Brothers 07/31/2019 1 [place] Brooklyn L Brothers [id number] Brooklyn L Brothers 01/25/2022 1 [place] Brooklyn L Brothers [id number] Brooklyn L Brothers 04/10/2020 1 [place] [employer] Brooklyn L Brothers [id number] Brooklyn L Brothers 03/20/2020 1 [place] Brooklyn Brothers [id number] Brooklyn L Brothers 12/10/2020 2 [place] Brooklyn Brothers [id number] Brooklyn L Brothers 04/29/2020 1 [place] [employer] Brooklyn L Brothers [id number] Brooklyn L Brothers 03/03/2020 1 [place] [employer] Brooklyn L Brothers [id number] Brooklyn L Brothers 12/10/2020 1 [place] [employer] Brooklyn L Brothers [id number] Brooklyn L Brothers 04/29/2020 1 [place] Brooklyn Brothers [id number] Brooklyn L Brothers 03/27/2020 1 [place] [employer] Brooklyn Brothers [id number] Brooklyn L Brothers 12/13/2020 1 [place] Brooklyn Brothers [id number] Brooklyn L Brothers 12/11/2020 2 [place] Brooklyn Brothers [id number] Brooklyn L Brothers 02/07/2022 2 [place] Brooklyn Brothers [id number] Brooklyn L Brothers 12/11/2020 1 [place] Brooklyn Brothers [id number] Brooklyn L Brothers 12/11/2020 1 [place] [employer] Brooklyn Brothers [id number] Brooklyn L Brothers 12/11/2020 1 [place] Brooklyn Brothers [id number] Brooklyn L Brothers 12/10/2020 1 [place] Brooklyn Brothers [id number] Brooklyn L Brothers 12/06/2021 1 [place] [employer] Brooklyn L Brothers [id number] Brooklyn L Brothers 12/25/2020 2 [place] Brooklyn Brothers [id number] Brooklyn L Brothers 12/11/2020 2 [place] Brooklyn Brothers [id number] Brooklyn L Brothers 12/19/2020 1 [place] SERVICES [facility] [id number] [facility] 03/20/2020 2 [place] [facility] [id number] [facility] Notes Date Note Type Note Provider Name and Address Organization Details Recorded Time 04/30/2020 text/html This is a 39-year-old female who is known to [facility] but new to this provider, with a 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 She was seen Tuesday at [facility] for nausea vomiting and abdominal pain. [...] recently been on antibiotics. Tete Escalante NP [address] [place] [address], [phone], [place] - [facility] 04/30/2020 18:09:48 12/11/2020 text/html This is a 40-year-old female that is known to [facility] but new to this provider. She has a medical history significant for bechetts syndrome, Crohn's disease, gastroparesis and DVT for which she is anticoagulated. She was recently hospitalized at [facility] with complaints of low blood pressure and low heart rate. She was discharged home yesterday early afternoon. She contacted [facility] yesterday after getting home with complaints of nausea and dizziness, she required a secondary screening so she was ultimately not able to be seen as there was no provider available to screen her. She contacted [facility] again today with complaints of abdominal pain [...] review the patient's medical record in the [facility] system however her record is blocks due [...] wobbly. NAZANIN TOLBERT NP [address], [place], [address], [place] [facility] 12/11/2020 17:39:08 12/31/2020 text/html 40-year-old fema johnna who is known to [facility] provider, with a past medical history [...] urinary symptoms. She was reportedly admitted to [facility]- received IVF- came home with SOB- was admitted to [facility] for diuresis. She has been home about 1 week. She was seen by GI who plans to start TPN, IV Benadryl and IV Zofran. Tete Escalante NP [address], [place], [address], [place] [facility] 01/02/2021 11:52:00 04/26/2021 text/html [facility] i [...] available at the pharmacy today. ANDREWS HUNTLEY, DIRECTOR OF STRATEGIC PROGRAMS [address], [place], [address], [place] [facility] 04/26/2021 19:42:06 01/25/2022 text/html 41 year old femmaggi le known to but new to provider with a history of DVT/PE on Eliquis, asthma, Bachets Dx, chronic gastroparesis with home TPN therapy via port, immune deficiency seen today for not feeling well after dx with UTI at [facility] late last night/early this am. Went [...] did not have childcare coverage. Went to [facility] last night for headache, acute on [...] at approximately 2am (now 215pm). Did not pick up attendant Rx for antibiotic or pyridium. Pt showed all lab and abd CT results with normal CBCD, CMP, EGFR > 60. Abn CT with no etiology for abd pain complaints. Mirlande Schmidt NP [address], [place], [address], [place] [facility] 02/03/2022 09:50:48 OBGyn Episode No OBEpisode recorded.
== END 2024-11-08 12:44 | disposition home or self-care (01) ==
PROVIDERS: Visit Provider Anesthesiology
DX: Z45.1 Encounter for adjustment and management of infusion pump (principal); M54.2 Cervicalgia; M35.2 Behcet's disease; M54.50 Low back pain, unspecified; R10.9 Unspecified abdominal pain; G89.29 Other chronic pain; G97.1 Other reaction to spinal and lumbar puncture
CPT/HCPCS: 62370; 99024

== ENCOUNTER → 2024-11-08 11:22 | Outpatient (BNVA) | payer MEDICARE, MEDICAID, SELFPAY | PROVIDERS: Visit Provider Anesthesiology | DX: Z45.89 Encounter for adjustment and management of other implanted devices (principal); M54.2 Cervicalgia; M35.2 Behcet's disease; M54.50 Low back pain, unspecified; R10.9 Unspecified abdominal pain; G89.29 Other chronic pain; G97.1 Other reaction to spinal and lumbar puncture | CPT/HCPCS: 62370; 99212 ==

== ENCOUNTER 2024-11-22 09:49 | Outpatient (AMB) | payer MEDICARE, MEDICAID, SELFPAY ==
[2024-11-22 09:51] VITALS: BP 110/52; PULSE 87; O2SAT 95; BMI 28.0
--- NOTE | 2024-11-22 09:51 | MHC.OFFVIS ---
Vital Signs 11/22/24 09:51 Height 5 ft Weight 143 lb 4.807 oz BMI 28.0 BP 110/52 L Blood Pressure Location Lt brachial Position Sitting Pulse 87 Pulse Source Pulse Oximeter Pulse Oximetry (%) 95 Oxygen Delivery Method Room Air Intake Visit Reasons: Restrictive Lung Disease Accompanied by: Self / Same As Patient Allergies ciprofloxacin (Cipro) Allergy (Unknown, Verified 11/22/24 09:54) Hives levofloxacin (Levaquin) Allergy (Unknown, Verified 11/22/24 09:54) Hives metoclopramide (Reglan) Allergy (Unknown, Verified 11/22/24 09:54) Hives ondansetron (Zofran) Allergy (Unknown, Verified 11/22/24 09:54) Itching penicillin V Allergy (Unknown, Verified 11/22/24 09:54) Hives prochlorperazine (From Compazine) Allergy (Unknown, Verified 11/22/24 09:54) Shortness of Breath Sulfa (Sulfonamide Antibiotics) Allergy (Unknown, Verified 11/22/24 09:54) Hives thalidomide (From Thalomid) Allergy (Unknown, Verified 11/22/24 09:54) Rash haloperidol (From Haldol) Allergy (Verified 11/22/24 09:54) Itching HPI Comments Details: The patient is a 44-year-old female with a PMH significant for?hx of DVT/PE on Eliquis, Crohn's disease on chronic TPN, Behcet's disease, hx of chylothorax, chronic SVC obstruction, and chronic pain syndrome who presents to the ED for evaluation of worsening SOB?and difficulty breathing since discharge from the hospital yesterday. Pt had a prolonged and complicated hospital stay from 08/20-09/04 where she was initially treated for abdominal pain secondary to norovirus, but hospital course was complicated when she became hypoxic and tested positive for flu and CT showed right lower lobe pneumonia with parapneumonic effusion and loculation suggestive of empyema. IR found fluid collection too small to drain, and pt was initially scheduled to undergo decortication though that was held after additional consideration. Pt underwent bronchoscopy with therapeutic cleansing, brushing, and washing by pulmonology with improvement. Pt underwent home O2 evaluation and was discharged on 3L NC as well as cefuroxime and doxycycline p.o.. Pt reports SOB, LAINEZ, and cough worsened after getting home but she initially attempted to see if she improved overnight. When symptoms worsened in the morning she decided to come back to the hospital for further evaluation. Some pleuritic chest pressure/tightness. Chills but no measured fever. In the ED, he CXR, personally reviewed by me, showed mild interstitial pulmonary edema, unchanged right basilar consolidation suggesting pneumonia, and loculated effusion in major fissure on right. Lasix 40 mg IV, and ceftriaxone and azithromycin. Pt admitted to the hospital for treatment and further evaluation of acute on chronic hypoxic respiratory failure in the setting of pneumonia that failed outpatient therapy vs question of CHF. Currently the patient feels a little better. She is on the oxygen. She is still having congestion difficult for her to clear his own secretions. 09/20/2024 the patient is here for hospital follow-up visit. She was initially evaluated in the hospital after developing pneumonia with a loculated pleural effusion. The patient did not require surgery and was too small to tap. Seems like it has been clearing. And she went back to the hospital pulmonary edema. She did have an echocardiogram which is reassuring. In addition to that she was discharged on oxygen. She has been having hard time carrying the oxygen tanks specially since she is already carrying a backpack. [facility] supplies for her TPN. During the office visit we did go for brief walking oximetry and she was able to do well on the 2 L pulse. Therefore I will send a revision order to [facility] for her oxygen in order to have a portable oxygen concentrator 2 L pulse with activity and then she can use the concentrator in the home 2 L for activity and sleep. She needs better portability outside of the home. And the POC will provide that. In addition to that she needs to get a nebulizer. Nebulizer from [facility] was requested but she never got it. Therefore, I will give her [facility] nebulizer from here and will let them know that we have given it to them and put an order in to make sure that she is under contract with [facility] for that. She can use it twice a day for her chest tightness and chest congestion and wheezing. The patient did have a chest x-ray prior to discharge. She still had a little small pleural effusion on the left although was minimal. Will plan to repeat the chest x-ray prior to the next visit in 2-3 months. She will continue to use the Breo for now. She also continue her other medications as prescribed. She needs to be set up with Rheumatology. She had seen previous rheumatology here in the past. I will put a referral in to have her stay within the system. 11/22/2024 The patient is here for a pulmonary follow up visit. Overall, doing very well. She is close her baseline before getting sick with pneumonia. I did review her last CT chest demonstraing resolution of the pneumonia and pleural effusion, just residual scarring/atelectasis. She will work on deep breathing exercises. Still using the oxygen with good effect. Likely we can retest oxygen need during her next visit in 6 months. [facility] Medical History ILD (interstitial lung disease) Enterocutaneous fistula Pulmonary emboli Crohn's disease Chronic, continuous use of opioids Immunosuppression Absence seizure disorder DVT (deep venous thrombosis) Pyloric stenosis Asthma Common variable immunodeficiency Spondylolisthesis, lumbar region Spondylosis of lumbar region without myelopathy or radiculopathy Abdominal pain, chronic, generalized Gastroparesis Spontaneous pneumothorax Chronic pain syndrome Cervicalgia Low back pain Behcet's disease Surgical History History of thoracotomy Hx of gastrostomy History of hernia surgery Family History Father Hairy cell leukemia Social History Household Members: Children Household Members Other:: son Housing: House Do you presently have visiting nurse or other home services: No Unable to assess alcohol history related to: Unknown Alcohol intake: never Patient Tobacco Use Status: Never used Tobacco Second Hand Smoke Exposure: No Advance Directives Date on File: 04/22/23 service: No Current occupational status: unemployed Review of Systems Const Denies chills, Denies daytime sleepiness, Denies fatigue, Denies fever(s), Denies poor appetite, Denies snoring, Denies stops breathing during sleep, Denies weakness, Denies weight gain and Denies weight loss Eyes Denies loss of vision ENT Denies dizziness and Denies hearing loss Card Denies chest pain, Denies irregular heart rhythm, Denies claudication, Denies leg edema, Denies lightheadedness, Denies palpitations, Reports dyspnea on exertion and Denies orthopnea Resp Reports cough, Denies excessive phlegm production, Reports dyspnea on exertion, Denies snoring and Denies wheezing GI Denies hematochezia, Denies nausea and Denies vomiting Denies urinary frequency and Denies dysuria Musc Denies arthralgias, Denies muscle weakness, Denies numbness and Denies other Skin/Breast Denies nail changes and Denies rash Neuro Denies Abnormal speech present, Denies dizziness, Denies loss of vision, Denies memory loss, Denies numbness and Denies weakness Psych Denies depression and Denies memory loss Endo Denies fatigue and Denies palpitations Shaheed/Lymph Denies easy bruising Aller/Immun Denies wheezing Physical Exam Vital Signs: Last Vital Signs Pulse 87 11/22/24 09:51 BP 110/52 L 11/22/24 09:51 Pulse Ox 95 11/22/24 09:51 Oxygen Delivery Method Room Air 11/22/24 09:51 BMI result Body Mass Index 28.0 Last Vital Signs Temp 97.9 F 09/06/24 07:39 Pulse 62 09/06/24 08:21 Resp 20 09/06/24 08:21 BP 98/47 L 09/06/24 07:39 Pulse Ox 100 09/06/24 07:39 O2 Del Method Nasal Cannula 09/06/24 07:39 O2 Flow Rate 2.5 09/06/24 07:39 Oxygen Flow Rate 3 09/05/24 12:00 BMI result Body Mass Index 28.5 Const General: alert, awake and tired appearing Eyes Sclerae: sclerae normal EOM: EOMs intact bilaterally Neck Neck: Yes no lymphadenopathy, Yes trachea midline and Yes supple Chest Chest palpation & inspection: normal inspection of the chest Resp Effort & Inspection: normal respiratory effort Auscultation: no crackles, no rhonchi and diminished lung sounds Cardio Rate: regular rate Rhythm: regular rhythm Heart sounds: no gallops, no murmurs and no rubs GI Palpation (GI): Soft to palpation and Other GI palpation findings present ( Nontender) Auscultation: normal bowel sounds Neuro Speech: No Abnormal speech present Extrem General: Yes no pedal edema, No clubbing and No cyanosis Assessment & Plan Assessment & Plan (1) Behcet's disease: Code(s): M35.2 - Behcet's disease Category: Medical (2) Pulmonary emboli: Code(s): I26.99 - Other pulmonary embolism without acute cor pulmonale Category: Medical Qualifiers: Pulmonary embolism type: multiple subsegmental (without acute cor pulmonale) Qualified Code(s): I26.94 - Multiple subsegmental thrombotic pulmonary emboli without acute cor pulmonale (3) ILD (interstitial lung disease): Code(s): J84.9 - Interstitial pulmonary disease, unspecified Category: Medical (4) Pneumonia: Code(s): J18.9 - Pneumonia, unspecified organism Category: Medical Qualifiers: Laterality: unspecified laterality Lung location: unspecified part of lung Pneumonia type: due to unspecified organism Qualified Code(s): J18.9 - Pneumonia, unspecified organism Plan Continue Breo MARVIN as needed Nebulizer for albuterol Oxygen revision: POC 2L/pulse for portability outside of the home, 2L/min while sleeping Rheumatology referral to have [place] [facility] 6 [place] Coding Level of Care Code Est Pt Level 4 (91918) Complex EM visit Add On G2211 Diagnoses Behcet's disease M35.2 Multiple subsegmental pulmonary emboli without acute cor pulmonale I26.94 Pulmonary embolism type: multiple subsegmental (without acute cor pulmonale) ILD (interstitial lung disease) J84.9 Pneumonia due to infectious organism, unspecified laterality, unspecified part of lung J18.9 Laterality: unspecified laterality Lung location: unspecified part of lung Pneumonia type: due to unspecified organism Time Spent (min) 17
--- OUTSIDE RECORDS SUMMARY | 2024-11-22 10:24 | XMS_ITS | Data Portability ---
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 Pt reports on Tuesday04/27/20 she went to [facility] for abdominal pain, urine was tested [...] breathing unlabored Abd soft, tender LLQ, (-) Sheridan & Psoas signs, no rebound tenderness (+) [...] I have accessed patient records on the [employer]. This information was pertinent in my medical decision making today. Time On Scene with Patient: 00:00:15 [email or web address] Not available 04/30/2020 14:10:35 12/11/2020 12/11/2020 Overview/History :T is a 40-year-old female that is [facility] to [facility], she was discharged home from the hospital yesterday. She was seen by GI during her hospitalization, she does have a history of Crohn's and gastro paresis. She contacted [facility] with complaints of dizziness and nausea. [...] further work up on the end of [facility]. Plan/Discussion:I discussed with the patient [...] after care of this patient according to [facility] infection [facility] protocols. Time On Scene with Patient: 00:46:48 Time On Scene with Patient: 00:46:48 [email or web address] Not available 12/11/2020 15:15:43 12/31/2020 12/31/2020 Overview/History : This is a 40-year-old female who is known to [facility], with a past medical history of DVTs & pulmonary embolism currently on Eliquis, Behcet's disease, Crohn's disease, gastroparesis, common variable immune deficiency, and followed by the pain clinic- on Morphine for chronic abdominal pain. Pt reports recently seen in [facility] for abdominal pain. She continues to [...] care were discussed with the Virtual Physician international bank manager for [facility]- Dr. Leon who agrees patient needs to go to ED for nutrition and fluids and to be seen again by GI specialist. The patient understood and agreed with this plan. The patient was given discharge instructions and all questions were answered prior to DH team departure. Not available 01/02/2021 11:51:51 04/26/2021 04/26/2021 Brief [...] Ambulatory with steady gait Work up/Results: Reviewed [facility] ER records DDx considered & Medical Decision [...] I have accessed patient records on the [employer] with patient portal. This information was pertinent in my medical decision making today. Proper Personal Protective Equipment (PPE), including gloves, surgical mask were donned and doffed appropriately and all equipment cleaned using approved technique with germicidal disposable wipes prior to and after care of this patient according to [facility] infection prevention protocols. Time On Scene with Patient: 00:25:23 [email or web address] Not available 04/26/2021 19:41:52 01/25/2022 01/25/2022 Overview/History : 41 year old female known to but new to provider with a history of DVT/PE on Eliquis, asthma, Bachets Dx, chronic gastroparesis with home TPN therapy via port, immune deficiency seen today for not feeling well after dx with UTI at [facility] late last night/early this am. [...] did not have childcare coverage. Went to [facility] last night for headache, acute on [...] at approximately 2am (now 215pm). Did not medicinal plant picker Rx for antibiotic or pyridium. Pt [...] not limited to: -UTI: per pt with [facility], culture pending -Dehydration: considered as cause of headache with normal BYN/Cr on labs though -Sinusitis: considered with frontal headache but no rhinorrhea, URI signs -Acute on chronic abd pain/gastroparesis flare Work up/Results: None indicated; pt needs to medicinal plant picker prescribed meds as due for antibiotic Plan/Discussion: UTI -Increase fluids as tolerated to improve UTI and headache; use in conjunction with IV zofran - form building supervisor antibiotics (Macrobid and pyridium) -Take Excedrin [...] Appointments None recorded. Lab culture, urine [address] [place] [facility] (Centralized Electronic Ordering - All Locations), Patient Can Go To The Location Of Their Choice, [id number] 1 12:36:46 urinalysis, dipstick 2019 [email or web address] Spr - [place], [address] [place] [address], [address], 0 11:32:18 culture, urine - [facility] [place] [facility] (Centralized Electronic Ordering - All Locations), Patient Can Go To The Location Of Their Choice, [id number] 0 10:13:17 Referral None recorded. Procedures None recorded. Surgeries None recorded. Imaging None recorded. Medication Orders nitrofurant oin monohydrate /macrocryst als 100 mg capsule 2020 [facility] #[id number], [address] [facility] , [place], [address], 1 19:32:33 Patient TargetsNo targets recorded. Patient Instructions Encounter Date Encounter Id Patient Instructions Last Modified By Organization Details Last Modified Time 04/30/2020 [id number] We tested your urine today, there is [...] in your condition between 8am-10pm, please call [facility] at [phone] to help navigate your care. [email or web address] Not available 04/30/2020 11:32:17 12/31/2020 [id number] Care escalated t o ED [email or web address] Not available 12/31/2020 14:39:34 04/26/2021 [id number] URINARY TRACT INFECTION INSTRUCTIONS BASIC INFORMATION Urinary [...] in your condition between 8am-10pm, please call [facility] at [phone] to help navigate your care. [email or web address] Not available 04/26/2021 19:41:58 01/25/2022 [id number] --You were seen today for ongoing headache, acute on chronic left abdominal pain with negative cat scan -You were diagnosed with UTI in ER; medicinal plant picker your antibiotics and pyridium -Increase your [...] Go To The Location Of Their Choice, [id number] 05/02/2020 10:13:17 04/30/2005/01/2020 cultu re, urine special requests NONE Not Available [facility] (Centralized Electronic Ordering - All Locations) Patient Can Go To The Location Of Their Choice, [id number] 05/02/2020 10:13:17 04/30/2005/02/2020 cultu re, urine culture <10,00 0 COL/ML abnormal Not Available [facility] (Centralized Electronic Ordering - All Locations) Patient Can Go To The Location Of Their Choice, [id number] 05/02/2020 10:13:17 04/30/2005/02/2020 cultu re, urine report status FINAL 2019 Not Available [facility] (Centralized Electronic Ordering - All Locations) Patient Can Go To The Location Of Their Choice, [id number] 05/02/2020 10:13:17 04/30/20 20 04/30/2020 urina lysis , dipst ick Appearance clear Not Available Spr - [facility]me [address], [place], [address], 04/30/2020 11:29:27 04/30/20 20 04/30/2020 urina lysis , dipst ick Color yellow Not Available Spr - Home [address], [place], [address], 04/30/2020 11:29:27 04/30/20 20 04/30/2020 urina lysis , dipst ick Glucose negati ve Not Available Spr - Home [address], [place], [address], 04/30/2020 11:29:27 04/30/20 20 04/30/2020 urina lysis , dipst ick Bilirubin negati ve Not Available Spr - Home [address] [place], [address], 04/30/2020 11:29:27 04/30/20 20 04/30/2020 urina lysis , dipst ick Ketones NEG Not Available Spr - Home [address], [place], [address], 04/30/2020 11:29:27 04/30/20 20 04/30/2020 urina lysis , dipst ick Sp. [place] 1.030 Not Available Spr - Home [address] [place], [address], 04/30/2020 11:29:27 04/30/20 20 04/30/2020 urina lysis , dipst ick Blood + Not Available Spr - Home [address], [place], [address], 04/30/2020 11:29:27 04/30/20 20 04/30/2020 urina lysis , dipst ick pH 5.0 Not Available Spr - Home [address] [place], [address], 04/30/2020 11:29:27 04/30/20 20 04/30/2020 urina lysis , dipst ick Protein negati ve Not Available Spr - Home [address] [place], [address], 04/30/2020 11:29:27 04/30/20 20 04/30/2020 urina lysis , dipst ick Urobilirubin negati ve Not Available Spr - Home [address] [place], [address], 04/30/2020 11:29:27 04/30/20 20 04/30/2020 urina lysis , dipst ick Nitrites NEG Not Available Spr - [place] [address] [place], [address], 04/30/2020 11:29:27 04/30/20 20 04/30/2020 urina lysis , dipst ick Leukocytes NEG Not Available Spr - H [address] [address] [place], [address], 04/30/2020 11:29:27 04/26/20 21 04/27/2021 URINE CULTU RE specimen description URINE Not Available [facility] (Centralized Electronic Ordering - All Locations) Patient Can Go To The Location Of Their Choice, [id number] 05/01/2021 19:07:04 04/26/20 21 04/27/2021 URINE CULTU RE special requests NONE Not Available [facility] (Centralized Electronic Ordering - All Locations) Patient Can Go To The Location Of Their Choice, [id number] 05/01/2021 19:07:04 04/26/20 21 04/28/2021 URINE CULTU RE culture NO GROWTH Not Available [facility] (Centralized Electronic Ordering - All Locations) Patient Can Go To The Location Of Their Choice, [id number] 05/01/2021 19:07:04 04/26/20 21 04/28/2021 URINE CULTU RE report status FINAL 2020 Not Available [facility] (Centralized Electronic Ordering - All Locations) Patient Can Go To The Location Of Their Choice, [id number] 05/01/2021 19:07:04 Result Notes None recorded. Problems Name Problem SNOMED Code Status Onset Date Resolution Date Notes Provider Name and Address Organization Details Recorded Time Gastroparesi s syndrome 670179736 Active 2018 ELAINE PEREZ NP [address], [facility] [place], [address], [place] [facility] 9 13:12:39 Behcet's syndrome 644741738 Active 2019 America Ferrera NP [address], [facility] [place], [address], [place] [facility] 0 21:06:32 Deep venous thrombosis 866152147 Active 2019 America Ferrera NP [address], [place], [address], [place] [facility] 0 21:06:41 Pulmonary embolism 02500799 Active 2019 America Ferrera NP [address], [facility] [place], [address], [place] [facility] 0 21:06:53 Crohn's disease 07824269 Active 2019 America Ferrera NP [address], [facility] [place], [address], [place] [facility] 0 21:46:14 Problem Notes None recorded. Procedures Surgical History Date Name Laterality Status Provider Name and Address Organization Details Recorded Time 01/26/20 22 Medication Review completed Mirlande Schmidt NP [address], [place], [address], [place] [facility] 01/25/2022 15:08:05 01/01/20 21 Medication Review completed Tete Escalante NP [address], [place], [address], [place] [facility] 12/31/2020 13:43:54 05/20/20 19 Venipuncture - DH completed ELAINE PEREZ NP [address], [place], [address], [place] [facility] 05/24/2019 12:06:55 05/20/20 19 ECG Interpretation - DH completed ELAINE PEREZ, ROLL WRAPPER [address], [place], [address], [place] [facility] 05/20/2019 20:46:01 Port, indwelling, imp completed ANDREWS HUNTLEY, PEARL [address], [place], [address], [place] [facility] 04/26/2021 19:09:01 Remove tonsils [...] repair w/mesh completed HARJINDER UNGER NP [address] [place], [address], [place] [facility] 02/24/2019 09:17:51 Imaging Results None recorded. Procedure Notes None recorded. Medical Equipment None Reported. Allergies Allergen ID Allergen Name Allergen Category Reaction Reaction Severity Criticality Documentation Date Start Date Code Code System Note Provider Name and Address Organization Details Recorded Time 05053 Product containin g penicilli n (product) medicatio n rash Not available Not available 01/13/2019 14634 8001 SNOMED Nora more-e rickso null[place] [facility] 9 13:37:49 36852 Bactrim medicatio n rash Not available Not available 01/13/2019 66455 9 RxNorm Nora more-e rickso null, [place] [facility] 9 13:37:49 24365 Reglan medicatio n rash Not available Not available 01/13/2019 9230 RxNorm Nora more-e rickso null, [place] [facility] 9 13:37:49 35446 Cipro medicatio n rash Not available Not available 01/13/201926708 3 RxNorm Nora more-e rickso null, [place] [facility] 9 13:37:49 44173 thalidomi de medicatio n hives Not available Not available 01/13/2019 75023 RxNorm Nora more-e rickso null, [place] [facility] 9 13:37:49 01595 Avelox medicatio n rash Not available Not available 01/13/2019 50520 6 RxNorm Nora more-e rickso null, [place] [facility] 9 13:37:49 20483 Compazine medicatio n rash Not available Not available 01/13/201949526 6 RxNorm Nora mroe-e rickso null, [place] [facility] 9 13:37:49 49789 penicilla mine medicatio n Not available Not available Not available 02/24/2019 7975 RxNorm HARJINDER UNGER, ROLL WR[address]PER [address] [place], [address], [place] [facility] 9 09:14:07 80144 Bactrim medicatio n Not available Not available Not available 02/24/2019 06924 9 RxNorm ELAINE PEREZ , [place] [address] [place], [address], [place] [facility] 9 13:11:15 27968 Reglan medicatio n Not available Not available Not available 02/24/2019 9230 RxNorm ELAINE PEREZ , [address] [place], [address], [place] [facility] 9 13:11:30 95683 Cipro medicatio n Not available Not available Not available 02/24/201986238 3 RxNorm ELAINE PEREZ , PEARL [address], [place], [address], [place] [facility] 9 13:11:19 08220 thalidomi de medicatio n Not available Not available Not available 02/24/2019 81769 RxNorm ELAINE PEREZ , ROLL WRAPPER [address], [place], [address], [place] [facility] 9 13:11:36 23299 Avelox medicatio n Not available Not available Not available 02/24/2019 31518 6 RxNorm ELAINE PEREZ , ROLL WRAPPER [address], [place], [address], [place] [facility] 9 13:11:11 28008 Compazine medicatio n Not available Not available Not available 02/24/2019 58878 6 RxNorm ELAINE PEREZ , ROLL WRAPPER [address], [facility] [place], [address], [place] [facility] 9 13:11:23 03770 Levaquin medicatio n Not available Not available Not available 02/24/2019 04969 2 RxNorm HARJINDER UNGER, ROLL WRAPPER [address], [place], [address], [place] [facility] 9 09:14:57 64269 Zofran medicatio n Not available Not available Not available 02/24/2019 54630 RxNorm HARJINDER UNGER, ROLL WRAPPER [address], [facility] [place], [address], [place] [facility] 9 [...] mm[Hg] 118/66 mm[Hg] 112/64 mm[Hg] Not Available [facility] 1 14:30:28 Date Recorded Respiratory rate Oxygen saturation Oxygen saturation in Arterial blood by Pulse oximetry Heart rate Body temperature Systolic And Diastolic Provider Name and Address Organization Details Last Updated DateTime 1 18 /min 93 % 93 % 60 /min 97.7 [degF] 74/40 mm[Hg] Not Available [facility] 1 14:14:28 Date Recorded Oxygen saturation Oxygen saturation in Arterial blood by Pulse oximetry Heart rate Respiratory rate Body temperature Systolic And Diastolic Provider Name and Address Organization Details Last Updated DateTime 2 95 % 95 % 80 /min 18 /min 97.3 [degF] 112/66 mm[Hg] Not Available [facility] 2 14:03:13 Date Recorded Body temperature Heart rate Respiratory rate Oxygen saturation Oxygen saturation in Arterial blood by Pulse oximetry Systolic And Diastolic Provider Name and Address Organization Details Last Updated DateTime 1 97.8 [degF] 90 /min 20 /min 97 % 97 % 110/70 mm[Hg] Not Available [facility] 1 19:13:37 Date Recorded Body temperature Heart rate Respiratory rate Oxygen saturation Oxygen saturation in Arterial blood by Pulse oximetry Systolic And Diastolic Provider Name and Address Organization Details Last Updated DateTime 0 97.4 [degF] 64 /min 16 /min 99 % 99 % 110/64 mm[Hg] Not Available [facility] 0 11:19:12 Social History Question Answer Notes LastModified by Organizat ion Details LastModified Time Tobacco Smoking Status Never Smoker HARJINDER UNGER NP [address] [place], [address], [place] [facility] 02/24/2019 09:16:56 Drugs Abused [...] SNOMED-CT Code Diagnosis ICD10 Code Diagnosis Note [id number] HARJINDER UNGER NP SPR - [address] [place] [address] 01/13/2019 15:41:39 01/15/2019 13:01:16 Contusion of upper arm 48548091 S40.029A [id number] HARJINDER UNGER NP [facility] [place] [facility] [place] [address] [place] [address] 02/24/2019 09:01:29 02/26/2019 13:15:01 Pain in throat 539368112 R07.0 Candidiasis of mouth 797 04313 B37.0 Called Pharmacist to add1 part Diphenhydr amine 12.5 mg/5 mL1 part Viscous lidocaine 2%1 part MaaloxPT will take 5ml QID swish and swallow. Pharyngitis 300345206 J0 2.9 [id number] ELAINE PEREZ NP [facility] [place] [address] [place] [address] 04/16/2019 13:10:41 04/16/2019 20:09:51 Urinary tract infectious disease 47797091 N39.0 [id number] NIVIA CAMPBELL [facility] [place] [address] [place] [address] 04/18/2019 15:47:19 04/20/2019 11:55:41 Fever 334124149 R50.9 Lower abdominal pain 545 36125 R10.30 Acute urin doris tract infection 690767469 N39.0 Headache 17160283 R51 Nausea 443077116 R11.0 [id number] ELAINE PEREZ NP SPR - [address] [place] [address] 05/20/2019 20:06:21 05/22/2019 10:30:18 Headache 27702626 R51 Syncope and collapse 309 383914 R55 Long-term current use of anticoagulant 488408590 Z79.01 [id number] NIVIA DIAZ SPR - HOME [address] [facility] [place] [address] 07/29/2019 11:17:51 07/31/2019 18:23:01 Dizziness present 385508186 R42 Viral gastroenteritis 11 9084056 A08.4 Orthostati c hypotension 88582857 I95.1 Diarrhea 09087088 R19.7 [id number] America Laura Ferrera NP SPR - [address] [place] [address] 03/20/2020 21:03:52 03/21/2020 14:55:42 Diarrhea 68694338 R19.7 Overview/H istory: Patient is a 39 [...] sent to lab for confirmati on Dehydration 14059392 E86 .0 Abdominal pain 68406416 R10.9 Urinary tr act infectious disease 47176688 N39.0 [id number] Tete Escalante, ROLL WRAPPER SPR - [facility] [address] [facility] [place] [address] 04/30/2020 11:13:21 04/30/2020 14:15:49 Flank pain 129779644 R10.9 [id number] NAZANIN TOMASZ, ROLL WRAPPER SPR - [address] [place] [address] 12/11/2020 14:07:27 12/19/2020 16:56:53 Nausea 860288445 R11.0 Dizziness 788537491 R42 [id number] Tete Escalante, ROLL WRAPPER SPR - [address] [place] [address] 12/31/2020 13:18:40 01/01/2021 19:35:42 Dehydration 66555880 E86.0 Abdominal pain 06247863 R10.9 [id number] ANDREWS HUNTLEY, ROLL WRAPPER SPR - [address] [place] [address] 04/26/2021 19:07:16 04/30/2021 11:12:07 Acute urinary tract infection 295803735 N39.0 [id number] Mirlande Schmidt, ROLL WRAPPER SPR - [address] [place] [address] 01/25/2022 13:57:56 01/27/2022 19:23:10 Gastroparesis syndrome 889061789 K31.84 Acute on chronic Acute urin doris tract infection 293025088 N39.0 Health Concerns Section Related Observation LastModified by Organization Detai ls LastModified Time None Recorded Concern Status LastModified by Organization Details LastModified Time None Recorded Advance Directives Directive None Recorded Payers Insurance Date Sequence Insurance Name Policy Number Policy Schneider Covered Member ID Schneider Member ID Guarantor Name 02/07/2022 1 [place] [employer] Brooklyn Chavez [id number] Brooklyn Chavez 02/07/2022 1 [facility] PRIOR TO 2022 - DUAL ELIGIBLE (MEDICARE REPLACEMENT/AD VANTAGE - HMO) Brooklyn Chavez [id number] Brooklyn Chavez 02/07/2022 2 [place] Brooklyn L Brothers [id number] Brooklyn L Brothers 02/07/2022 1 [place] [employer] [place] Brooklyn L Brothers [id number] Brooklyn L Brothers 04/20/2019 1 *SELF PAY* Brooklyn Brothers [id number] Brooklyn L Brothers 04/20/2019 1 [place] [employer] Brooklyn L Brothers [id number] Brooklyn L Brothers 04/20/2019 1 [place] Brooklyn Brothers [id number] Brooklyn L Brothers 04/20/2019 1 *SELF PAY* Nesha Brothers [id number] Brooklyn L Brothers 04/20/2019 1 [place] Nesha Brothers [id number] Brooklyn L Brothers 05/20/2019 1 [place] [employer] [place] Brooklyn L Brothers [id number] Brooklyn L Brothers 07/31/2019 1 [place] [employer] Brooklyn L Brothers [id number] Brooklyn L Brothers 01/25/2022 1 [place] [employer] Brooklyn L Brothers [id number] Brooklyn L Brothers 04/10/2020 1 [place] [employer] Brooklyn L Brothers [id number] Brooklyn L Brothers 03/20/2020 1 [place] Brooklyn Brothers [id number] Brooklyn L Brothers 12/10/2020 2 [place] Brooklyn Brothers [id number] Brooklyn L Brothers 04/29/2020 1 [place] [employer] Brooklyn L Brothers [id number] Brooklyn L Brothers 03/03/2020 1 [place] Brooklyn L Brothers [id number] Brooklyn L Brothers 12/10/2020 1 [place] [employer] Brooklyn L Brothers [id number] Brooklyn L Brothers 04/29/2020 1 [place] [employer] Brooklyn Brothers [id number] Brooklyn L Brothers 03/27/2020 1 [place] [employer] [place] Brooklyn Brothers [id number] Brooklyn L Brothers 12/13/2020 1 [place] [facility] Brooklyn Brothers [id number] Brooklyn L Brothers 12/11/2020 2 [place] [facility] Brooklyn Brothers [id number] Brooklyn L Brothers 02/07/2022 2 [place] [facility] Brooklyn Brothers [id number] Brooklyn L Brothers 12/11/2020 1 [place] [facility] Brooklyn Brothers [id number] Brooklyn L Brothers 12/11/2020 1 [place] [employer] Brooklyn Brothers [id number] Brooklyn L Brothers 12/11/2020 1 [place] [employer] Brooklyn Brothers [id number] Brooklyn L Brothers 12/10/2020 1 [place] [facility] Brooklyn Brothers [id number] Brooklyn L Brothers 12/06/2021 1 [place] Brooklyn L Brothers [id number] Brooklyn L Brothers 12/25/2020 2 [place] [facility] Brooklyn Brothers [id number] Brooklyn L Brothers 12/11/2020 2 [place] [facility] Brooklyn Brothers [id number] Brooklyn L Brothers 12/19/2020 1 [place] Brooklyn Brothers [id number] Brooklyn L Brothers 03/20/2020 2 [place] [facility] Brooklyn Brothers [id number] Brooklyn L Brothers Notes Date Note Type Note Provider Name and Address Organization Details Recorded Time 04/30/2020 text/html This is a 39-year-old female who is known to [facility] but new to this provider, with a 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 She was seen Tuesday at [facility] for nausea vomiting and abdominal pain. She [...] been on antibiotics. Tete Escalante NP [address], [place], [address], [place] [facility] 04/30/2020 18:09:48 12/11/2020 text/html This is a 40-year-old female that is [facility] but new to this provider. She has a medical history significant for bechetts syndrome, Crohn's disease, gastroparesis and DVT for which she is anticoagulated. She was recently hospitalized at [facility] with complaints of low blood pressure and low heart rate. She was discharged home yesterday early afternoon. She contacted [facility] yesterday after getting home with complaints of nausea and dizziness, she required a secondary screening so she was ultimately not able to be seen as there was no provider available to screen her. She contacted [facility] again today with complaints of [...] review the patient's medical record in the [id number] system however her record is blocks due [...] wobbly. NAZANIN TOLBERT, PEARL [address], [place], [address], [place] [facility] 12/11/2020 17:39:08 12/31/2020 text/html 40-year-old laura oropeza who is [facility], with a past medical history [...] urinary symptoms. She was reportedly admitted to [facility]- received IVF- came home with SOB- was admitted to [facility] for diuresis. She has been home about 1 week. She was seen by GI who plans to start TPN, IV Benadryl and IV Zofran. Tete Escalante, PEARL [address], [place], [address], [place] - [facility] 01/02/2021 11:52:00 04/26/2021 text/html Brooklyn Chavez i s a 40 y/o F PMH [...] today. ANDREWS HUNTLEY, PEARL [address], [place], [address], [place] - [facility] 04/26/2021 19:42:06 01/25/2022 text/html 41 year old fema le known to but new to provider with a history of DVT/PE on Eliquis, asthma, Bachets Dx, chronic gastroparesis with home TPN therapy via port, immune deficiency seen today for not feeling well after dx with UTI at [facility] late last night/early this am. [...] did not have childcare coverage. Went to [facility] ER last night for headache, acute on [...] at approximately 2am (now 215pm). Did not medicinal plant picker Rx for antibiotic or pyridium. Pt showed all lab and abd CT results with normal CBCD, CMP, EGFR > 60. Abn CT with no etiology for abd pain complaints. Mirlande Schmidt NP [address], [place], [address], [place] - [facility] 02/03/2022 09:50:48 OBGyn Episode No OBEpisode recorded.
== END 2024-11-22 10:11 | disposition home or self-care (01) ==
LOC: HO.HPS 09:50
PROVIDERS: PCP Internal Medicine; Visit Provider Hospitalist
DX: M35.2 Behcet's disease (principal); I26.94 Multiple subsegmental thrombotic pulmonary emboli without acute cor pulmonale; J84.9 Interstitial pulmonary disease, unspecified; J18.9 Pneumonia, unspecified organism
CPT/HCPCS: 99214; G2211

== ENCOUNTER → 2024-11-22 09:49 | Outpatient (BNVA) | payer MEDICARE, MEDICAID, SELFPAY | PROVIDERS: PCP Internal Medicine; Visit Provider Hospitalist | DX: I26.94 Multiple subsegmental thrombotic pulmonary emboli without acute cor pulmonale (principal); M35.2 Behcet's disease; J84.9 Interstitial pulmonary disease, unspecified; J18.9 Pneumonia, unspecified organism; Z99.81 Dependence on supplemental oxygen; Z79.01 Long term (current) use of anticoagulants; Z79.899 Other long term (current) drug therapy | CPT/HCPCS: 99212 ==

== ENCOUNTER 2024-12-05 13:32 | Outpatient (AMB) | payer MEDICARE, MEDICAID, SELFPAY ==
--- NOTE | 2024-12-05 13:46 | MHC.OFFVIS ---
Vital Signs 12/05/24 13:47 Weight 142 lb BP 132/86 Blood Pressure Location Lt brachial Position Sitting Respiration 18 Pulse 80 Pulse Source Pulse Oximeter Pulse Oximetry (%) 97 Oxygen Delivery Method Room Air Intake Visit Reasons: PILL COUNT Intake Note: Patient states the last time she took a pill was at 830am 12/05/24. Padmini says shesw should have 56 pills and she presented with 56 Allergies ciprofloxacin (Cipro) Allergy (Unknown, Verified 12/05/24 13:45) Hives levofloxacin (Levaquin) Allergy (Unknown, Verified 12/05/24 13:45) Hives metoclopramide (Reglan) Allergy (Unknown, Verified 12/05/24 13:45) Hives ondansetron (Zofran) Allergy (Unknown, Verified 12/05/24 13:45) Itching penicillin V Allergy (Unknown, Verified 12/05/24 13:45) Hives prochlorperazine (From Compazine) Allergy (Unknown, Verified 12/05/24 13:45) Shortness of Breath Sulfa (Sulfonamide Antibiotics) Allergy (Unknown, Verified 12/05/24 13:45) Hives thalidomide (From Thalomid) Allergy (Unknown, Verified 12/05/24 13:45) Rash haloperidol (From Haldol) Allergy (Verified 12/05/24 13:45) Itching HPI Comments Details: Brooklyn is in the office today for oral opioid medication refill and follow-up. She supposed to have 56 pills in her possession. She had 56 pills in her possession. The pill count is correct. I will refill her medications on 01/02/2025. We checked her stimulation sprint insertion site on the right side of the lumbar spine. The site insertion is clean, no pathological discharge no swelling no redness. Next week we will remove the device. I will continue observation. Her pain pump refill is scheduled as well. Prior: Brooklyn is 41 years old female who is suffering from multiple medical conditions including Bencet disease, Crohn's disease, she is immunocompromised.? Her pain involves chronic abdominal pain and lower back pain.? She also has a chronic pelvic pain.? She is on chronic oral opioid therapy for 3 years.? [facility] Medical History ILD (interstitial lung disease) Enterocutaneous fistula Pulmonary emboli Crohn's disease Chronic, continuous use of opioids Immunosuppression Absence seizure disorder DVT (deep venous thrombosis) Pyloric stenosis Asthma Common variable immunodeficiency Spondylolisthesis, lumbar region Spondylosis of lumbar region without myelopathy or radiculopathy Abdominal pain, chronic, generalized Gastroparesis Spontaneous pneumothorax Chronic pain syndrome Cervicalgia Low back pain Behcet's disease Surgical History History of thoracotomy Hx of gastrostomy History of hernia surgery Family History Father Hairy cell leukemia Social History Household Members: Children Household Members Other:: son Housing: House Do you presently have visiting nurse or other home services: No Unable to assess alcohol history related to: Unknown Alcohol intake: never Patient Tobacco Use Status: Never used Tobacco Second Hand Smoke Exposure: No Advance Directives Date on File: 04/22/23 service: No Current occupational status: unemployed Review of Systems Const All systems reviewed & are unremarkable except as noted in HPI and below Physical Exam Vital Signs: Last Vital Signs Pulse 80 12/05/24 13:47 Resp 18 12/05/24 13:47 BP 132/86 12/05/24 13:47 Pulse Ox 97 12/05/24 13:47 Oxygen Delivery Method Room Air 12/05/24 13:47 Const General: cooperative, no acute distress and alert Orientation/consciousness: patient oriented x3 HEENT Head: Yes normocephalic and Yes atraumatic Ears: hearing grossly normal bilaterally Eyes General: appearance normal, both eyes and all related structures Alignment and Position: alignment normal and position normal Periorbital: periorbital findings normal Eyelids: Yes eyelids normal Pupils: Equal, round and reactive pupils present, pupils equal and not dilated EOM: EOMs intact bilaterally Direct Ophthalmoscopy: no photophobia Neck Neck: Yes normal visual inspection and Yes no JVD Resp Effort & Inspection: normal respiratory effort, able to speak in complete sentences and no audible wheezes Cardio Jugular venous distension: no JVD GI Inspection: Yes incision and Yes scar Back/Spine/Pelvis Other: Tenderness on palpation in projection of the paraspinal spinal region L3-L4-L5 area. Test is positive bilaterally. Misael test is equivocal and pelvic compression test is negative. Cervical Spine: normal cervical lordosis Thoracic/Lumbar Spine: thoracic and lumbar spine normal to inspection Neuro General: patient oriented x3, gait normal and moves all extremities Cranial nerves: Yes Equal, round and reactive pupils present Assessment & Plan Assessment & Plan (1) Cervicalgia: Code(s): M54.2 - Cervicalgia Category: Medical Plan: (2) Behcet's disease: Code(s): M35.2 - Behcet's disease Category: Medical Plan: (3) Low back pain: Code(s): M54.5 - Low back pain Category: Medical (4) Chronic abdominal pain: Code(s): R10.9 - Unspecified abdominal pain; G89.29 - Other chronic pain Category: Medical Plan Brooklyn will be seen in 1 month for pain pump refill and oral medication pill count. She has a nursing appointment for removal of the sprint PNS device. Reports minimal to moderate help from sprint PNS. I will continue observation. The pill count is correct today. Her new refill of the medication will be scheduled on 01/02/2025. Medications: Refilled hydromorphone Partial fill per patient's request only 4 mg PO BID PRN 60 tabs 0RF severe pain (scale score 7-10) 30 days F11.90 - Opioid use, unspecified, uncomplicated, G89.29 - Other chronic pain, G89.4 - Chronic pain syndrome, R10.9 - Unspecified abdominal pain Coding Level of Care Code Est Pt Level 3 (23073) Diagnoses Cervicalgia M54.2 Behcet's disease M35.2 Low back pain M54.5 Chronic abdominal pain R10.9; G89.29
[2024-12-05 13:47] VITALS: BP 132/86; PULSE 80; RESP 18; O2SAT 97
--- OUTSIDE RECORDS SUMMARY | 2024-12-05 14:22 | XMS_ITS | Data Portability ---
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 Pt reports on Tuesday04/27/20 she went to [facility] for abdominal pain, urine was tested [...] breathing unlabored Abd soft, tender LLQ, (-) [place] & Psoas signs, no rebound tenderness (+) [...] I have accessed patient records on the [facility] Information Exchange. This information was pertinent in my medical decision making today. Time On Scene with Patient: 00:00:15 [email or web address] Not available 04/30/2020 14:10:35 12/11/2020 12/11/2020 Overview/History :T is a 40-year-old female that is known to [facility], she was discharged home from the hospital yesterday. She was seen by GI during her hospitalization, she does have a history of Crohn's and gastro paresis. She contacted [facility] with complaints of dizziness and [...] up on the end of [facility]. Plan/Discussion:I discussed with the patient that I [...] after care of this patient according to [facility]'s infection prevention protocols. 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 Pt reports recently seen in [facility] for abdominal pain. She continues to [...] care were discussed with the Virtual Physician baby registry sales consultant for [facility]- Dr. Leon who agrees patient needs to go to ED for nutrition and fluids and to be seen again by GI specialist. The patient understood and agreed with this plan. The patient was given discharge instructions and all questions were answered prior to DH team departure. [email or web address] Not available 01/02/2021 11:51:51 04/26/2021 04/26/2021 Brief [...] Ambulatory with steady gait Work up/Results: Reviewed [facility] ER records DDx considered & Medical [...] accessed patient records on the [employer] with patient portal. This information was pertinent in my medical decision making today. Proper Personal Protective Equipment (PPE), including gloves, surgical mask were donned and doffed appropriately and all equipment cleaned using approved technique with germicidal disposable wipes prior to and after care of this patient according to [facility]'s infection prevention protocols. Time On Scene with Patient: 00:25:23 [email or web address] Not available 04/26/2021 19:41:52 01/25/2022 01/25/2022 Overview/History : 41 year old female known to but new to provider with a history of DVT/PE on Eliquis, asthma, Bachets Dx, chronic gastroparesis with home TPN therapy via port, immune deficiency seen today for not feeling well after dx with UTI at [facility] late last night/early this am. [...] did not have childcare coverage. Went to [facility] last night for headache, acute on [...] at approximately 2am (now 215pm). Did not tow picker Rx for antibiotic or pyridium. Pt [...] not limited to: -UTI: per pt with [facility], culture pending -Dehydration: considered as cause of headache with normal BYN/Cr on labs though -Sinusitis: considered with frontal headache but no rhinorrhea, URI signs -Acute on chronic abd pain/gastroparesis flare Work up/Results: None indicated; pt needs to tow picker prescribed meds as due for antibiotic Plan/Discussion: UTI -Increase fluids as tolerated to improve UTI and headache; use in conjunction with IV zofran - supervisor covering and lining antibiotics (Macrobid and pyridium) -Take Excedrin scheduled [...] Appointments None recorded. Lab culture, urine 2020 [facility] (Centralized Electronic Ordering - All Locations), Patient Can Go To The Location Of Their Choice, [id number] 1 12:36:46 urinalysis, dipstick 2019 [email or web address] Spr - [place], [address] [place] [address], [address], 0 11:32:18 culture, urine - [facility] 2019 [facility] (Centralized Electronic Ordering - All Locations), Patient Can Go To The Location Of Their Choice, [id number] 0 10:13:17 Referral None recorded. Procedures None recorded. Surgeries None recorded. Imaging None recorded. Medication Orders nitrofurant oin monohydrate /macrocryst als 100 mg capsule 2020 [facility] #[id number], [id number] , [place], [address], 1 19:32:33 Patient TargetsNo targets recorded. Patient Instructions Encounter Date Encounter Id Patient Instructions Last Modified By Organization Details Last Modified Time 04/30/2020 [id number] We tested your urine today, there is [...] in your condition between 8am-10pm, please call [facility] at [phone] to help navigate your care. [email or web address] Not available 04/30/2020 11:32:17 12/31/2020 [id number] Care escalated t o ED [email or web address] Not available 12/31/2020 14:39:34 04/26/2021 [id number] URINARY TRACT INFECTION INSTRUCTIONS BASIC INFORMATION Urinary [...] in your condition between 8am-10pm, please call [facility] at [phone] to help navigate your care. [email or web address] Not available 04/26/2021 19:41:58 01/25/2022 [id number] --You were seen today for ongoing headache, acute on chronic left abdominal pain with negative cat scan -You were diagnosed with UTI in ER; tow picker your antibiotics and pyridium -Increase your [...] Go To The Location Of Their Choice, [id number] 05/02/2020 10:13:17 04/30/2005/01/2020 cultu re, urine special requests NONE Not Available [facility] (Centralized Electronic Ordering - All Locations) Patient Can Go To The Location Of Their Choice, [id number] 05/02/2020 10:13:17 04/30/2005/02/2020 cultu re, urine culture <10,00 0 COL/ML abnormal Not Available [facility] (Centralized Electronic Ordering - All Locations) Patient Can Go To The Location Of Their Choice, [id number] 05/02/2020 10:13:17 04/30/2005/02/2020 cultu re, urine report status FINAL 2019 Not Available [facility] (Centralized Electronic Ordering - All Locations) Patient Can Go To The Location Of Their Choice, [id number] 05/02/2020 10:13:17 04/30/20 20 04/30/2020 urina lysis , dipst ick Appearance clear Not Available Spr - [address], [place], [address], 04/30/2020 11:29:27 04/30/20 20 04/30/2020 urina lysis , dipst ick Color yellow Not Available Spr - Home [address], [place], [address], 04/30/2020 11:29:27 04/30/20 20 04/30/2020 urina lysis , dipst ick Glucose negati ve Not Available Spr - Home [address], [place], [address], 04/30/2020 11:29:27 04/30/20 20 04/30/2020 urina lysis , dipst ick Bilirubin negati ve Not Available Spr - Home [address] [place], [address], 04/30/2020 11:29:27 04/30/20 20 04/30/2020 urina lysis , dipst ick Ketones NEG Not Available Spr - Home [address], [place], [address], 04/30/2020 11:29:27 04/30/20 20 04/30/2020 urina lysis , dipst ick Sp. [place] 1.030 Not Available Spr - Home [address] [place], [address], 04/30/2020 11:29:27 04/30/20 20 04/30/2020 urina lysis , dipst ick Blood + Not Available Spr - Home [address], [place], [address], 04/30/2020 11:29:27 04/30/20 20 04/30/2020 urina lysis , dipst ick pH 5.0 Not Available Spr - Home [address] [place], [address], 04/30/2020 11:29:27 04/30/20 20 04/30/2020 urina lysis , dipst ick Protein negati ve Not Available Spr - Home [address] [place], [address], 04/30/2020 11:29:27 04/30/20 20 04/30/2020 urina lysis , dipst ick Urobilirubin negati ve Not Available Spr - Home [address] [place], [address], 04/30/2020 11:29:27 04/30/20 20 04/30/2020 urina lysis , dipst ick Nitrites NEG Not Available Spr - [place] [address] [place], [address], 04/30/2020 11:29:27 04/30/20 20 04/30/2020 urina lysis , dipst ick Leukocytes NEG Not Available Spr - H [address] [place], [address], 04/30/2020 11:29:27 04/26/20 21 04/27/2021 URINE CULTU RE specimen description URINE Not Available [facility] (Centralized Electronic Ordering - All Locations) Patient Can Go To The Location Of Their Choice, [id number] 05/01/2021 19:07:04 04/26/20 21 04/27/2021 URINE CULTU RE special requests NONE Not Available [facility] (Centralized Electronic Ordering - All Locations) Patient Can Go To The Location Of Their Choice, [id number] 05/01/2021 19:07:04 04/26/20 21 04/28/2021 URINE CULTU RE culture NO GROWTH Not Available [facility] (Centralized Electronic Ordering - All Locations) Patient Can Go To The Location Of Their Choice, [id number] 05/01/2021 19:07:04 04/26/20 21 04/28/2021 URINE CULTU RE report status FINAL 2020 Not Available [facility] (Centralized Electronic Ordering - All Locations) Patient Can Go To The Location Of Their Choice, [id number] 05/01/2021 19:07:04 Result Notes None recorded. Problems Name Problem SNOMED Code Status Onset Date Resolution Date Notes Provider Name and Address Organization Details Recorded Time Gastroparesi s syndrome 284253483 Active 2018 ELAINE PEREZ NP [address], [facility] [place], [address], [place] [facility] 9 13:12:39 Behcet's syndrome 390441641 Active 2019 America Ferrera NP [address], [facility] [place], [address], [place] [facility] 0 21:06:32 Deep venous thrombosis 041079122 Active 2019 America Ferrera NP [address], [place], [address], [place] [facility] 0 21:06:41 Pulmonary embolism 37199233 Active 2019 America Ferrera NP [address], [place], [address], [place] [facility] 0 21:06:53 Crohn's disease 02337979 Active 2019 America Ferrera NP [address], [facility] [place], [address], [place] [facility] 0 21:46:14 Problem Notes None recorded. Procedures Surgical History Date Name Laterality Status Provider Name and Address Organization Details Recorded Time 01/26/20 22 Medication Review completed Mirlande Schmidt NP [address], [place], [address], [place] [facility] 01/25/2022 15:08:05 01/01/20 21 Medication Review completed Tete Escalante NP [address], [place], [address], [place] [facility] 12/31/2020 13:43:54 05/20/20 19 Venipuncture - DH completed ELANIE PEREZ NP [address], [place], [address], [place] [facility] 05/24/2019 12:06:55 05/20/20 19 ECG Interpretation - DH completed ELAINE PEREZ, DOUBLE NEEDLE OPERATOR [address], [place], [address], [place] [facility] 05/20/2019 20:46:01 Port, indwelling, imp completed ANDREWS HUNTLEY, PEARL [address], [place], [address], [place] [facility] 04/26/2021 19:09:01 Remove tonsils [...] repair w/mesh completed HARJINDER UNGER NP [address] [place], [address], [place] [facility] 02/24/2019 09:17:51 Imaging Results None recorded. Procedure Notes None recorded. Medical Equipment None Reported. Allergies Allergen ID Allergen Name Allergen Category Reaction Reaction Severity Criticality Documentation Date Start Date Code Code System Note Provider Name and Address Organization Details Recorded Time 53343 Product containin g penicilli n (product) medicatio n rash Not available Not available 01/13/2019 08588 8001 SNOMED Nora more-e rickso null[place] [facility] 9 13:37:49 53627 Bactrim medicatio n rash Not available Not available 01/13/2019 11865 9 RxNorm Nora more-e rickso null, [place] [facility] 9 13:37:49 53753 Reglan medicatio n rash Not available Not available 01/13/2019 9230 RxNorm Nora more-e rickso null, [place] [facility] 9 13:37:49 83035 Cipro medicatio n rash Not available Not available 01/13/201939720 3 RxNorm Nora more-e rickso null, [place] [facility] 9 13:37:49 28164 thalidomi de medicatio n hives Not available Not available 01/13/2019 27318 RxNorm Nora more-e rickso null, [place] [facility] 9 13:37:49 20333 Avelox medicatio n rash Not available Not available 01/13/2019 14345 6 RxNorm Nora more-e rickso null, [place] [facility] 9 13:37:49 17527 Compazine medicatio n rash Not available Not available 01/13/201923330 6 RxNorm Nora more-e rickso null, [place] [facility] 9 13:37:49 62059 penicilla mine medicatio n Not available Not available Not available 02/24/2019 7975 RxNorm HARJINDER UNGER, DOUBLE NEEDLE OPERATOR [address] [place], [address], [place] [facility] 9 09:14:07 20209 Bactrim medicatio n Not available Not available Not available 02/24/2019 91961 9 RxNorm ELAINE PEREZ , PEARL [address] [place], [address], [place] [facility] 9 13:11:15 46512 Reglan medicatio n Not available Not available Not available 02/24/2019 9230 RxNorm ELAINE PEREZ , [place] [address] [place], [address], [place] [facility] 9 13:11:30 60228 Cipro medicatio n Not available Not available Not available 02/24/201946184 3 RxNorm ELAINE PEREZ , PEARL [address] [place], [place], [address], [place] [facility] 9 13:11:19 12966 thalidomi de medicatio n Not available Not available Not available 02/24/2019 51402 RxNorm ELAINE PEREZ , DOUBLE NEEDLE OPERATOR [address], [place], [address], [place] [facility] 9 13:11:36 61926 Avelox medicatio n Not available Not available Not available 02/24/2019 99855 6 RxNorm ELAINE PEREZ , DOUBLE NEEDLE OPERATOR [address], [place], [address], [place] [facility] 9 13:11:11 92248 Compazine medicatio n Not available Not available Not available 02/24/2019 23185 6 RxNorm ELAINE PEREZ , DOUBLE NEEDLE OPERATOR [address], [facility] [place], [address], [place] [facility] 9 13:11:23 26750 Levaquin medicatio n Not available Not available Not available 02/24/2019 67633 2 RxNorm HARJINDER UNGER, DOUBLE NEEDLE OPERATOR [address], [place], [address], [place] [facility] 9 09:14:57 54361 Zofran medicatio n Not available Not available Not available 02/24/2019 38762 RxNorm HARJINDER UNGER, DOUBLE NEEDLE OPERATOR [address], [facility] [place], [address], [place] [facility] 9 [...] mm[Hg] 118/66 mm[Hg] 112/64 mm[Hg] Not Available [facility] 1 14:30:28 Date Recorded Respiratory rate Oxygen saturation Oxygen saturation in Arterial blood by Pulse oximetry Heart rate Body temperature Systolic And Diastolic Provider Name and Address Organization Details Last Updated DateTime 1 18 /min 93 % 93 % 60 /min 97.7 [degF] 74/40 mm[Hg] Not Available [facility] 1 14:14:28 Date Recorded Oxygen saturation Oxygen saturation in Arterial blood by Pulse oximetry Heart rate Respiratory rate Body temperature Systolic And Diastolic Provider Name and Address Organization Details Last Updated DateTime 2 95 % 95 % 80 /min 18 /min 97.3 [degF] 112/66 mm[Hg] Not Available [facility] 2 14:03:13 Date Recorded Body temperature Heart rate Respiratory rate Oxygen saturation Oxygen saturation in Arterial blood by Pulse oximetry Systolic And Diastolic Provider Name and Address Organization Details Last Updated DateTime 1 97.8 [degF] 90 /min 20 /min 97 % 97 % 110/70 mm[Hg] Not Available [facility] 1 19:13:37 Date Recorded Body temperature Heart rate Respiratory rate Oxygen saturation Oxygen saturation in Arterial blood by Pulse oximetry Systolic And Diastolic Provider Name and Address Organization Details Last Updated DateTime 0 97.4 [degF] 64 /min 16 /min 99 % 99 % 110/64 mm[Hg] Not Available [facility] 0 11:19:12 Social History Question Answer Notes LastModified by Organizat ion Details LastModified Time Tobacco Smoking Status Never Smoker HARJINDER UNGER NP [address] [place], [address], [place] [facility] 02/24/2019 09:16:56 Drugs Abused [...] Cholesterol N Pulmonary Embolism Y Cancer N Hypertension N Stroke N Asthma Y COPD N Depression N Kidney Disease N Gynecological HistoryNo gynecological history recorded. Obstetrics History GPAL:G 0 P 0 0 0 0 Past Encounters Encounter ID Performer Location Encounter Start Date Encounter Closed Date Diagnosis/Indication Diagnosis SNOMED-CT Code Diagnosis ICD10 Code Diagnosis Note [id number] HARJINDER UNGER NP [facility] - [address] [place] [address] 01/13/2019 15:41:39 01/15/2019 13:01:16 Contusion of upper arm 83351584 S40.029A [id number] HARJINDER UNGER NP [facility] [place] [address] [place] [address] 02/24/2019 09:01:29 02/26/2019 13:15:01 Pain in throat 362152662 R07.0 Candidiasis of mouth 797 86856 B37.0 Called Pharmacist to add1 part Diphenhydr amine 12.5 mg/5 mL1 part Viscous lidocaine 2%1 part MaaloxPT will take 5ml QID swish and swallow. Pharyngitis 320337499 J0 2.9 [id number] ELAINE PEREZ NP [facility] - [place] [address] [place] [address] 04/16/2019 13:10:41 04/16/2019 20:09:51 Urinary tract infectious disease 32390608 N39.0 [id number] NIVIA CAMPBELL [facility] - [place] [address] [place] [address] 04/18/2019 15:47:19 04/20/2019 11:55:41 Fever 254102517 R50.9 Lower abdominal pain 545 60183 R10.30 Acute urin doris tract infection 673749453 N39.0 Headache 06815477 R51 Nausea 790181617 R11.0 [id number] ELAINE PEREZ NP [facility] - [address] [place] [address] 05/20/2019 20:06:21 05/22/2019 10:30:18 Headache 12093291 R51 Syncope and collapse 309 995001 R55 Long-term current use of anticoagulant 022001133 Z79.01 [id number] NIVIA DIAZ [facility] - [facility] [address] [facility] [address] 07/29/2019 11:17:51 07/31/2019 18:23:01 Dizziness present 663959231 R42 Viral gastroenteritis 11 7462774 A08.4 Orthostati c hypotension 49223819 I95.1 Diarrhea 69898675 R19.7 [id number] America Laura Ferrera NP [facility] - [address] [place] [address] 03/20/2020 21:03:52 03/21/2020 14:55:42 Diarrhea 21109908 R19.7 Overview/H istory: Patient is a 39 [...] sent to lab for confirmati on Dehydration 40571742 E86 .0 Abdominal pain 99829040 R10.9 Urinary tr act infectious disease 54134248 N39.0 [id number] Tete Escalante, DOUBLE NEEDLE OPERATOR [facility] [place] [address] [facility] [address] 04/30/2020 11:13:21 04/30/2020 14:15:49 Flank pain 809547085 R10.9 [id number] NAZANIN TOMASZ, DOUBLE NEEDLE OPERATOR [facility] - [address] [place] [address] 12/11/2020 14:07:27 12/19/2020 16:56:53 Nausea 544655197 R11.0 Dizziness 497671177 R42 [id number] Tete Escalante, DOUBLE NEEDLE OPERATOR SPR - [address] [place] [address] 12/31/2020 13:18:40 01/01/2021 19:35:42 Dehydration 68435860 E86.0 Abdominal pain 88778541 R10.9 [id number] ANDREWS HUNTLEY, DOUBLE NEEDLE OPERATOR SPR - [address] [place] [address] 04/26/2021 19:07:16 04/30/2021 11:12:07 Acute urinary tract infection 143938070 N39.0 [id number] Mirlande Schmidt, DOUBLE NEEDLE OPERATOR SPR - [address] [place] [address] 01/25/2022 13:57:56 01/27/2022 19:23:10 Gastroparesis syndrome 342954703 K31.84 Acute on chronic Acute urin doris tract infection 892750207 N39.0 Health Concerns Section Related Observation LastModified by Organization Detai ls LastModified Time None Recorded Concern Status LastModified by Organization Details LastModified Time None Recorded Advance Directives Directive None Recorded Payers Insurance Date Sequence Insurance Name Policy Number Policy Schneider Covered Member ID Schneider Member ID Guarantor Name 02/07/2022 1 [place] [employer] Brooklyn Chavez [id number] Brooklyn Chavez 02/07/[address] [facility] - DOS PRIOR TO 2022 - DUAL ELIGIBLE (MEDICARE REPLACEMENT/AD VANTAGE - HMO) Brooklyn Chavez [id number] Brooklyn Chavez 02/07/2022 2 [place] Brooklyn L Brothers [id number] Brooklyn L Brothers 02/07/2022 1 [place] [employer] Brooklyn L Brothers [id number] Brooklyn L Brothers 04/20/2019 1 *SELF PAY* Brooklyn Brothers [id number] Brooklyn L Brothers 04/20/2019 1 [place] [employer] Brooklyn L Brothers [id number] Brooklyn L Brothers 04/20/2019 1 [place] [employer] Brooklyn Brothers [id number] Brooklyn L Brothers 04/20/2019 1 *SELF PAY* Nesha Brothers [id number] Brooklyn L Brothers 04/20/2019 1 [place] Nesha Brothers [id number] Brooklyn L Brothers 05/20/2019 1 [place] [employer] Brooklyn L Brothers [id number] Brooklyn L Brothers 07/31/2019 1 [place] Brooklyn L Brothers [id number] Brooklyn L Brothers 01/25/2022 1 [place] Brooklyn L Brothers [id number] Brooklyn L Brothers 04/10/2020 1 [place] Brooklyn L Brothers [id number] Brooklyn L Brothers 03/20/2020 1 [place] Brooklyn Brothers [id number] Brooklyn L Brothers 12/10/2020 2 [place] Brooklyn Brothers [id number] Brooklyn L Brothers 04/29/2020 1 [place] [employer] Brooklyn L Brothers [id number] Brooklyn L Brothers 03/03/2020 1 [place] [employer] Brooklyn L Brothers [id number] Brooklyn L Brothers 12/10/2020 1 [place] [employer] Brooklyn L Brothers [id number] Brooklyn L Brothers 04/29/2020 1 [place] [employer] Brooklyn Brothers [id number] Brooklyn L Brothers 03/27/2020 1 [place] Brooklyn Brothers [id number] Brooklyn L Brothers 12/13/2020 1 [place] [facility] Brooklyn Brothers [id number] Brooklyn L Brothers 12/11/2020 2 [place] [facility] Brooklyn Brothers [id number] Brooklyn L Brothers 02/07/2022 2 [place] [facility] Brooklyn Brothers [id number] Brooklyn L Brothers 12/11/2020 1 [place] [facility] Brooklyn Brothers [id number] Brooklyn L Brothers 12/11/2020 1 [place] [employer] Brooklyn Brothers [id number] Brooklyn L Brothers 12/11/2020 1 [place] [employer] Brooklyn Brothers [id number] Brooklyn L Brothers 12/10/2020 1 [place] [facility] Brooklyn Brothers [id number] Brooklyn L Brothers 12/06/2021 1 [place] [employer] Brooklyn L Brothers [id number] Brooklyn L Brothers 12/25/2020 2 [place] [facility] Brooklyn Brothers [id number] Brooklyn L Brothers 12/11/2020 2 [place] [facility] Brooklyn Brothers [id number] Brooklyn L Brothers 12/19/2020 1 [place] [employer] Brooklyn Brothers [id number] Brooklyn L Brothers 03/20/2020 2 [place] [facility] Brooklyn Brothers [id number] Brooklyn L Brothers Notes Date Note Type Note Provider Name and Address Organization Details Recorded Time 04/30/2020 text/html This is a 39-year-old female who is known to [facility] but new to this provider, with a 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 She was seen Tuesday at [facility] for nausea vomiting and abdominal pain. [...] antibiotics. Tete Escalante NP [address], [place], [address], [place] [facility] 04/30/2020 18:09:48 12/11/2020 text/html This is a 40-year-old female that is known to [facility] but new to this provider. She has a medical history significant for bechetts syndrome, Crohn's disease, gastroparesis and DVT for which she is anticoagulated. She was recently hospitalized at [facility] with complaints of low blood pressure and low heart rate. She was discharged home yesterday early afternoon. She contacted [facility] yesterday after getting home with complaints of nausea and dizziness, she required a secondary screening so she was ultimately not able to be seen as there was no provider available to screen her. She contacted [facility] again today with complaints of abdominal pain [...] review the patient's medical record in the [employer] system however her record is blocks [...] wobbly. NAZANIN TOLBERT, PEARL [address], [place], [address], [place] [facility] 12/11/2020 17:39:08 12/31/2020 text/html 40-year-old laura oropeza who is known to [facility] provider, with a past medical [...] urinary symptoms. She was reportedly admitted to [facility]- received IVF- came home with SOB- was admitted to [facility] for diuresis. She has been home about 1 week. She was seen by GI who plans to start TPN, IV Benadryl and IV Zofran. Tete Escalante, PEARL [address], [place], [address], [place] [facility] 01/02/2021 11:52:00 04/26/2021 text/html [...] today. ANDREWS HUNTLEY, PEARL [address], [place], [address], [place] [facility] 04/26/2021 19:42:06 01/25/2022 text/html 41 year old fema le known to but new to provider with a history of DVT/PE on Eliquis, asthma, Bachets Dx, chronic gastroparesis with home TPN therapy via port, immune deficiency seen today for not feeling well after dx with UTI at [facility] late last night/early this am. [...] did not have childcare coverage. Went to [facility] last night for headache, acute on [...] at approximately 2am (now 215pm). Did not tow picker Rx for antibiotic or pyridium. Pt showed all lab and abd CT results with normal CBCD, CMP, EGFR > 60. Abn CT with no etiology for abd pain complaints. Mirlande Schmidt NP [address], [place], [address], [place] [facility] 02/03/2022 09:50:48 OBGyn Episode No OBEpisode recorded.
== END 2024-12-05 14:14 | disposition home or self-care (01) ==
LOC: HO.PMC 13:33
PROVIDERS: PCP Internal Medicine; Visit Provider Anesthesiology
DX: M54.2 Cervicalgia (principal); M35.2 Behcet's disease; M54.50 Low back pain, unspecified; R10.9 Unspecified abdominal pain; G89.29 Other chronic pain
CPT/HCPCS: 99213

== ENCOUNTER → 2024-12-05 13:32 | Outpatient (BNVA) | payer MEDICARE, MEDICAID, SELFPAY | PROVIDERS: PCP Internal Medicine; Visit Provider Anesthesiology | DX: Z51.81 Encounter for therapeutic drug level monitoring (principal); F11.20 Opioid dependence, uncomplicated; M54.2 Cervicalgia; M35.2 Behcet's disease; R10.9 Unspecified abdominal pain; G89.29 Other chronic pain | CPT/HCPCS: 99212 ==

== ENCOUNTER 2024-12-12 12:52 | Outpatient (AMB) | payer MEDICARE, MEDICAID, SELFPAY ==
--- NOTE | 2024-12-12 13:00 | MHC.OFFVIS ---
Vital Signs 12/12/24 13:01 Weight 142 lb BP 108/59 L Blood Pressure Location Lt brachial Position Sitting Respiration 18 Pulse 78 Pulse Source Pulse Oximeter Intake Visit Reasons: LEFT L4 SPRINT REMOVAL Intake Note: removed sprint device completely with tip intact. Site looks good. Mirror Department Supervisor Required: No Allergies ciprofloxacin (Cipro) Allergy (Unknown, Verified 12/12/24 13:01) Hives levofloxacin (Levaquin) Allergy (Unknown, Verified 12/12/24 13:01) Hives metoclopramide (Reglan) Allergy (Unknown, Verified 12/12/24 13:01) Hives ondansetron (Zofran) Allergy (Unknown, Verified 12/12/24 13:01) Itching penicillin V Allergy (Unknown, Verified 12/12/24 13:01) Hives prochlorperazine (From Compazine) Allergy (Unknown, Verified 12/12/24 13:01) Shortness of Breath Sulfa (Sulfonamide Antibiotics) Allergy (Unknown, Verified 12/12/24 13:01) Hives thalidomide (From Thalomid) Allergy (Unknown, Verified 12/12/24 13:01) Rash haloperidol (From Haldol) Allergy (Verified 12/12/24 13:01) Itching HPI Comments Details: Brooklyn is in the office today for for the removal of the sprint PNS on the right side. She reports some minimal pain improvement on sprint PNS. She states that it increases her mobility. The injection site was exposed washed with ChloraPrep and the wire was removed with tip intact. No redness no swelling no pathological discharge no tenderness on palpation. Sterile Band-Aid applied. Patient will visit us next time for the pain medication refill and intrathecal pain pump refill. We discussed possibility of treating her lower back pain again with sprint PNS this time bilateral with insertion of the left electrode at the level of L2 and right electrode at the level of L5. Prior: Brooklyn is 41 years old female who is suffering from multiple medical conditions including Bencet disease, Crohn's disease, she is immunocompromised.? Her pain involves chronic abdominal pain and lower back pain.? She also has a chronic pelvic pain.? She is on chronic oral opioid therapy for 3 years.? [facility] Medical History ILD (interstitial lung disease) Enterocutaneous fistula Pulmonary emboli Crohn's disease Chronic, continuous use of opioids Immunosuppression Absence seizure disorder DVT (deep venous thrombosis) Pyloric stenosis Asthma Common variable immunodeficiency Spondylolisthesis, lumbar region Spondylosis of lumbar region without myelopathy or radiculopathy Abdominal pain, chronic, generalized Gastroparesis Spontaneous pneumothorax Chronic pain syndrome Cervicalgia Low back pain Behcet's disease Surgical History History of thoracotomy Hx of gastrostomy History of hernia surgery Family History Father Hairy cell leukemia Social History Household Members: Children Household Members Other:: son Housing: House Do you presently have visiting nurse or other home services: No Unable to assess alcohol history related to: Unknown Alcohol intake: never Patient Tobacco Use Status: Never used Tobacco Second Hand Smoke Exposure: No Advance Directives Date on File: 04/22/23 service: No Current occupational status: unemployed Review of Systems Const All systems reviewed & are unremarkable except as noted in HPI and below Physical Exam Vital Signs: Last Vital Signs Pulse 78 12/12/24 13:01 Resp 18 12/12/24 13:01 BP 108/59 L 12/12/24 13:01 Const General: cooperative, no acute distress and alert Orientation/consciousness: patient oriented x3 HEENT Head: Yes normocephalic and Yes atraumatic Ears: hearing grossly normal bilaterally Eyes General: appearance normal, both eyes and all related structures Alignment and Position: alignment normal and position normal Periorbital: periorbital findings normal Eyelids: Yes eyelids normal Pupils: Equal, round and reactive pupils present, pupils equal and not dilated EOM: EOMs intact bilaterally Direct Ophthalmoscopy: no photophobia Neck Neck: Yes normal visual inspection and Yes no JVD Resp Effort & Inspection: normal respiratory effort, able to speak in complete sentences and no audible wheezes Cardio Jugular venous distension: no JVD GI Inspection: Yes incision and Yes scar Back/Spine/Pelvis Other: Tenderness on palpation in projection of the paraspinal spinal region L3-L4-L5 area. Test is positive bilaterally. Misael test is equivocal and pelvic compression test is negative. Cervical Spine: normal cervical lordosis Thoracic/Lumbar Spine: thoracic and lumbar spine normal to inspection Neuro General: patient oriented x3, gait normal and moves all extremities Cranial nerves: Yes Equal, round and reactive pupils present Assessment & Plan Assessment & Plan (1) Cervicalgia: Code(s): M54.2 - Cervicalgia Category: Medical Plan: (2) Behcet's disease: Code(s): M35.2 - Behcet's disease Category: Medical Plan: (3) Low back pain: Code(s): M54.5 - Low back pain Category: Medical (4) Chronic abdominal pain: Code(s): R10.9 - Unspecified abdominal pain; G89.29 - Other chronic pain Category: Medical Plan Brooklyn will be seen in 1 month for pain pump refill and oral medication pill count. Sprint PNS was removed today. The possibility for future treatment was discussed with the patient. She reported minimal to moderate improvement on sprint PNS. Possibility of treating right-sided L5 and left-sided L2 stimulation was discussed with the patient. Coding Level of Care Code Est Pt Level 3 (94272) Diagnoses Cervicalgia M54.2 Behcet's disease M35.2 Low back pain M54.5 Chronic abdominal pain R10.9; G89.29
[2024-12-12 13:01] VITALS: BP 108/59; PULSE 78; RESP 18
--- OUTSIDE RECORDS SUMMARY | 2024-12-12 13:15 | XMS_ITS | Data Portability ---
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 Pt reports on Tuesday04/27/20 she went to [facility] for abdominal pain, urine was tested [...] breathing unlabored Abd soft, tender LLQ, (-) [place] & Psoas signs, no rebound tenderness (+) [...] I have accessed patient records on the [employer]. This information was pertinent in my medical decision making today. Time On Scene with Patient: 00:00:15 Not available 04/30/2020 14:10:35 12/11/2020 12/11/2020 Overview/History :T is a 40-year-old female that is [facility], she was discharged home from the hospital yesterday. She was seen by GI during her hospitalization, she does have a history of Crohn's and gastro paresis. [facility] with complaints of dizziness and nausea. [...] further work up on the end of [facility]. Plan/Discussion:I discussed with the patient that [...] after care of this patient [facility]. 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 Pt reports recently seen in [facility] for abdominal pain. She continues to [...] care were discussed with the Virtual Physician backshoe person for [facility]- Dr. Leon who agrees patient needs to go to ED for nutrition and fluids and to be seen again by GI specialist. The patient understood and agreed with this plan. The patient was given discharge instructions and all questions were answered prior to DH team departure. [email or web address] Not available 01/02/2021 11:51:51 04/26/2021 04/26/2021 Brief [...] Ambulatory with steady gait Work up/Results: Reviewed [facility] ER records DDx considered & Medical [...] accessed patient records on the [employer] with patient portal. This information was pertinent in my medical decision making today. Proper Personal Protective Equipment (PPE), including gloves, surgical mask were donned and doffed appropriately and all equipment cleaned using approved technique with germicidal disposable wipes prior to and after care of this patient according to [facility] infection [facility] protocols. Time On Scene with Patient: 00:25:23 [email or web address] Not available 04/26/2021 19:41:52 01/25/2022 01/25/2022 Overview/History : 41 year old female known to but new to provider with a history of DVT/PE on Eliquis, asthma, Bachets Dx, chronic gastroparesis with home TPN therapy via port, immune deficiency seen today for not feeling well after dx with UTI at [facility] late last night/early this am. Went [...] did not have childcare coverage. Went to [facility] last night for headache, acute on [...] at approximately 2am (now 215pm). Did not tile picker Rx for antibiotic or pyridium. Pt [...] not limited to: -UTI: per pt with [facility], culture pending -Dehydration: considered as cause of headache with normal BYN/Cr on labs though -Sinusitis: considered with frontal headache but no rhinorrhea, URI signs -Acute on chronic abd pain/gastroparesis flare Work up/Results: None indicated; pt needs to tile picker prescribed meds as due for antibiotic Plan/Discussion: UTI -Increase fluids as tolerated to improve UTI and headache; use in conjunction with IV zofran - detective supervisor antibiotics (Macrobid and pyridium) -Take Excedrin [...] Appointments None recorded. Lab culture, urine 2020 [facility] (Centralized Electronic Ordering - All Locations), Patient Can Go To The Location Of Their Choice, [id number] 1 12:36:46 urinalysis, dipstick 2019 [id number] Spr - [place], [address] [place] [address], [phone], 0 11:32:18 culture, [facility] - [facility] (Centralized Electronic Ordering - All Locations), Patient Can Go To The Location Of Their Choice, [id number] 0 10:13:17 Referral None recorded. Procedures None recorded. Surgeries None recorded. Imaging None recorded. Medication Orders nitrofurant oin monohydrate /macrocryst als 100 mg capsule 2020 [facility] #[id number], [address] [facility] , [place], [address], 1 19:32:33 Patient TargetsNo targets recorded. Patient Instructions Encounter Date Encounter Id Patient Instructions Last Modified By Organization Details Last Modified Time 04/30/2020 [id number] We tested your urine today, there is [...] in your condition between 8am-10pm, please call [facility] at [phone] to help navigate your care. [email or web address] Not available 04/30/2020 11:32:17 12/31/2020 [id number] Care escalated t o ED [email or web address] Not available 12/31/2020 14:39:34 04/26/2021 [id number] URINARY TRACT INFECTION INSTRUCTIONS BASIC INFORMATION Urinary [...] in your condition between 8am-10pm, please [facility] at [phone] to help navigate your care. [email or web address] Not available 04/26/2021 19:41:58 01/25/2022 [id number] --You were seen today for ongoing headache, acute on chronic left abdominal pain with negative cat scan -You were diagnosed with UTI in ER; tile picker your antibiotics and pyridium -Increase your [...] Go To The Location Of Their Choice, [id number] 05/02/2020 10:13:17 04/30/2005/01/2020 cultu re, urine special requests NONE Not Available [facility] (Centralized Electronic Ordering - All Locations) Patient Can Go To The Location Of Their Choice, [id number] 05/02/2020 10:13:17 04/30/2005/02/2020 cultu re, urine culture <10,00 0 COL/ML abnormal Not Available [facility] (Centralized Electronic Ordering - All Locations) Patient Can Go To The Location Of Their Choice, [id number] 05/02/2020 10:13:17 04/30/2005/02/2020 cultu re, urine report status FINAL 2019 Not Available [facility] (Centralized Electronic Ordering - All Locations) Patient Can Go To The Location Of Their Choice, [id number] 05/02/2020 10:13:17 04/30/20 20 04/30/2020 urina lysis , dipst ick Appearance clear Not Available Spr - [facility] [address]me [address], [place], [address], 04/30/2020 11:29:27 04/30/20 20 04/30/2020 urina lysis , dipst ick Color yellow Not Available Spr - Home [address], [place], [address], 04/30/2020 11:29:27 04/30/20 20 04/30/2020 urina lysis , dipst ick Glucose negati ve Not Available Spr - Home [address], [place], [address], 04/30/2020 11:29:27 04/30/20 20 04/30/2020 urina lysis , dipst ick Bilirubin negati ve Not Available Spr - Home [address] [place], [address], 04/30/2020 11:29:27 04/30/20 20 04/30/2020 urina lysis , dipst ick Ketones NEG Not Available Spr - Home [address], [place], [address], 04/30/2020 11:29:27 04/30/20 20 04/30/2020 urina lysis , dipst ick Sp. [place] 1.030 Not Available Spr - Home [address] [place], [address], 04/30/2020 11:29:27 04/30/20 20 04/30/2020 urina lysis , dipst ick Blood + Not Available Spr - Home [address], [place], [address], 04/30/2020 11:29:27 04/30/20 20 04/30/2020 urina lysis , dipst ick pH 5.0 Not Available Spr - Home [address] [place], [address], 04/30/2020 11:29:27 04/30/20 20 04/30/2020 urina lysis , dipst ick Protein negati ve Not Available Spr - Home [address] [place], [address], 04/30/2020 11:29:27 04/30/20 20 04/30/2020 urina lysis , dipst ick Urobilirubin negati ve Not Available Spr - Home [address] [place], [address], 04/30/2020 11:29:27 04/30/20 20 04/30/2020 urina lysis , dipst ick Nitrites NEG Not Available Spr - [place] [address] [place], [address], 04/30/2020 11:29:27 04/30/20 20 04/30/2020 urina lysis , dipst ick Leukocytes NEG Not Available Spr - H [address]me [address] [place], [address], 04/30/2020 11:29:27 04/26/20 21 04/27/2021 URINE CULTU RE specimen description URINE Not Available [facility] (Centralized Electronic Ordering - All Locations) Patient Can Go To The Location Of Their Choice, [id number] 05/01/2021 19:07:04 04/26/20 21 04/27/2021 URINE CULTU RE special requests NONE Not Available [facility] (Centralized Electronic Ordering - All Locations) Patient Can Go To The Location Of Their Choice, [id number] 05/01/2021 19:07:04 04/26/20 21 04/28/2021 URINE CULTU RE culture NO GROWTH Not Available [facility] (Centralized Electronic Ordering - All Locations) Patient Can Go To The Location Of Their Choice, [id number] 05/01/2021 19:07:04 04/26/20 21 04/28/2021 URINE CULTU RE report status FINAL 2020 Not Available [facility] (Centralized Electronic Ordering - All Locations) Patient Can Go To The Location Of Their Choice, [id number] 05/01/2021 19:07:04 Result Notes None recorded. Problems Name Problem SNOMED Code Status Onset Date Resolution Date Notes Provider Name and Address Organization Details Recorded Time Gastroparesi s syndrome 651960880 Active 2018 ELAINE PEREZ NP [address], [place], [address], [place] [facility] 9 13:12:39 Behcet's syndrome 837173181 Active 2019 America Ferrera NP [address], [place], [address], [place] [facility] 0 21:06:32 Deep venous thrombosis 860778700 Active 2019 America Ferrera NP [address], [place], [address], [place] [facility] 0 21:06:41 Pulmonary embolism 50829820 Active 2019 America Ferrera NP [address], [place], [address], [place] [facility] 0 21:06:53 Crohn's disease 90432593 Active 2019 America Ferrera NP [address], [place], [address], [place] [facility] 0 21:46:14 Problem Notes None recorded. Procedures Surgical History Date Name Laterality Status Provider Name and Address Organization Details Recorded Time 01/26/20 22 Medication Review completed Mirlande Schmidt NP [address], [place], [address], [place] [facility] 01/25/2022 15:08:05 01/01/20 21 Medication Review completed Tete Escalante NP [address], [place], [address], [place] [facility] 12/31/2020 13:43:54 05/20/20 19 Venipuncture - DH completed ELAINE PEREZ NP [address], [place], [address], [place] [facility] 05/24/2019 12:06:55 05/20/20 19 ECG Interpretation - DH completed ELAINE PEREZ, PLANT ELECTRICIAN [address], [place], [address], [place] [facility] 05/20/2019 20:46:01 Port, indwelling, imp completed ANDREWS HUNTLEY, PEARL [address], [place], [address], [place] [facility] 04/26/2021 19:09:01 Remove tonsils [...] repair w/mesh completed HARJINDER UNGER NP [address] [place], [address], [place] [facility] 02/24/2019 09:17:51 Imaging Results None recorded. Procedure Notes None recorded. Medical Equipment None Reported. Allergies Allergen ID Allergen Name Allergen Category Reaction Reaction Severity Criticality Documentation Date Start Date Code Code System Note Provider Name and Address Organization Details Recorded Time 16579 Product containin g penicilli n (product) medicatio n rash Not available Not available 01/13/2019 24352 8001 SNOMED Nora more-e rickso null[place] [facility] 9 13:37:49 84055 Bactrim medicatio n rash Not available Not available 01/13/2019 80749 9 RxNorm Nora more-e rickso null, [place] [facility] 9 13:37:49 44061 Reglan medicatio n rash Not available Not available 01/13/2019 9230 RxNorm Nora more-e rickso null, [place] [facility] 9 13:37:49 52727 Cipro medicatio n rash Not available Not available 01/13/201915473 3 RxNorm Nora more-e rickso null, [place] [facility] 9 13:37:49 14467 thalidomi de medicatio n hives Not available Not available 01/13/2019 81206 RxNorm Nora more-e rickso null, [place] [facility] 9 13:37:49 52187 Avelox medicatio n rash Not available Not available 01/13/2019 41482 6 RxNorm Nora more-e rickso null, [place] [facility] 9 13:37:49 69381 Compazine medicatio n rash Not available Not available 01/13/201984469 6 RxNorm Nora more-e rickso null, [place] [facility] 9 13:37:49 52962 penicilla mine medicatio n Not available Not available Not available 02/24/2019 7975 RxNorm HARJINDER UNGER, PLANT ELECTRICIAN [address] [place], [address], [place] [facility] 9 09:14:07 45696 Bactrim medicatio n Not available Not available Not available 02/24/2019 89661 9 RxNorm ELAINE PEREZ , [place]ARL [address] [place], [address], [place] [facility] 9 13:11:15 74438 Reglan medicatio n Not available Not available Not available 02/24/2019 9230 RxNorm ELAINE PEREZ , [place] [address] [place], [address], [place] [facility] 9 13:11:30 15547 Cipro medicatio n Not available Not available Not available 02/24/201912958 3 RxNorm ELAINE PEREZ , PEARL [address] [place], [place], [address], [place] [facility] 9 13:11:19 56575 thalidomi de medicatio n Not available Not available Not available 02/24/2019 27804 RxNorm ELAINE PEREZ , PLANT ELECTRICIAN [address], [place], [address], [place] [facility] 9 13:11:36 98586 Avelox medicatio n Not available Not available Not available 02/24/2019 28403 6 RxNorm ELAINE EPREZ , PLANT ELECTRICIAN [address], [place], [address], [place] [facility] 9 13:11:11 37328 Compazine medicatio n Not available Not available Not available 02/24/2019 19410 6 RxNorm ELAINE PEREZ , PLANT ELECTRICIAN [address], [facility] [place], [address], [place] [facility] 9 13:11:23 67700 Levaquin medicatio n Not available Not available Not available 02/24/2019 86750 2 RxNorm HARJINDER UNGER, PLANT ELECTRICIAN [address], [place], [address], [place] [facility] 9 09:14:57 75252 Zofran medicatio n Not available Not available Not available 02/24/2019 84380 RxNorm HARJINDER UNGER, PLANT ELECTRICIAN [address], [facility] [place], [address], [place] [facility] 9 [...] mm[Hg] 118/66 mm[Hg] 112/64 mm[Hg] Not Available [facility] 1 14:30:28 Date Recorded Respiratory rate Oxygen saturation Oxygen saturation in Arterial blood by Pulse oximetry Heart rate Body temperature Systolic And Diastolic Provider Name and Address Organization Details Last Updated DateTime 1 18 /min 93 % 93 % 60 /min 97.7 [degF] 74/40 mm[Hg] Not Available [facility] 1 14:14:28 Date Recorded Oxygen saturation Oxygen saturation in Arterial blood by Pulse oximetry Heart rate Respiratory rate Body temperature Systolic And Diastolic Provider Name and Address Organization Details Last Updated DateTime 2 95 % 95 % 80 /min 18 /min 97.3 [degF] 112/66 mm[Hg] Not Available [facility] 2 14:03:13 Date Recorded Body temperature Heart rate Respiratory rate Oxygen saturation Oxygen saturation in Arterial blood by Pulse oximetry Systolic And Diastolic Provider Name and Address Organization Details Last Updated DateTime 1 97.8 [degF] 90 /min 20 /min 97 % 97 % 110/70 mm[Hg] Not Available [facility] 1 19:13:37 Date Recorded Body temperature Heart rate Respiratory rate Oxygen saturation Oxygen saturation in Arterial blood by Pulse oximetry Systolic And Diastolic Provider Name and Address Organization Details Last Updated DateTime 0 97.4 [degF] 64 /min 16 /min 99 % 99 % 110/64 mm[Hg] Not Available [facility] 0 11:19:12 Social History Question Answer Notes LastModified by Organizat ion Details LastModified Time Tobacco Smoking Status Never Smoker HARJINDER UNGER NP [address] [place], [address], [place] [facility] 02/24/2019 09:16:56 Drugs Abused [...] SNOMED-CT Code Diagnosis ICD10 Code Diagnosis Note [id number] HARJINDER UNGER NP [facility] - [address] [place] [address] 01/13/2019 15:41:39 01/15/2019 13:01:16 Contusion of upper arm 80811357 S40.029A [id number] HARJINDER UNGER NP [facility] [place] [address] [place] [address] 02/24/2019 09:01:29 02/26/2019 13:15:01 Pain in throat 535670617 R07.0 Candidiasis of mouth 797 41916 B37.0 Called Pharmacist to add1 part Diphenhydr amine 12.5 mg/5 mL1 part Viscous lidocaine 2%1 part MaaloxPT will take 5ml QID swish and swallow. Pharyngitis 429591490 J0 2.9 [id number] ELAINE PEREZ NP [facility] - [place] [address] [place] [address] 04/16/2019 13:10:41 04/16/2019 20:09:51 Urinary tract infectious disease 98478917 N39.0 [id number] NIVIA CAMPBELL [facility] [place] [address] [place] [address] 04/18/2019 15:47:19 04/20/2019 11:55:41 Fever 337320464 R50.9 Lower abdominal pain 545 76810 R10.30 Acute urin doris tract infection 868465928 N39.0 Headache 90266475 R51 Nausea 548010714 R11.0 [id number] ELAINE PEREZ NP [facility] - [address] [place] [address] 05/20/2019 20:06:21 05/22/2019 10:30:18 Headache 65903452 R51 Syncope and collapse 309 594002 R55 Long-term current use of anticoagulant 307915722 Z79.01 [id number] NIVIA DIAZ [facility] - [facility] [address] [facility] [place] [address] 07/29/2019 11:17:51 07/31/2019 18:23:01 Dizziness present 800083984 R42 Viral gastroenteritis 11 1344925 A08.4 Orthostati c hypotension 07426873 I95.1 Diarrhea 57673539 R19.7 [id number] America Laura Ferrera NP [facility] - [address] [place] [address] 03/20/2020 21:03:52 03/21/2020 14:55:42 Diarrhea 66822176 R19.7 Overview/H istory: Patient is a 39 [...] sent to lab for confirmati on Dehydration 83001858 E86 .0 Abdominal pain 68328853 R10.9 Urinary tr act infectious disease 48768894 N39.0 [id number] Tete Escalante, PLANT ELECTRICIAN [facility] - [facility] [address] [facility] [place] [address] 04/30/2020 11:13:21 04/30/2020 14:15:49 Flank pain 372373603 R10.9 [id number] NAZANIN TOMASZ, PLANT ELECTRICIAN SPR - [address] [place] [address] 12/11/2020 14:07:27 12/19/2020 16:56:53 Nausea 783259170 R11.0 Dizziness 421356597 R42 [id number] Tete Escalante, PLANT ELECTRICIAN SPR - [address] [place] [address] 12/31/2020 13:18:40 01/01/2021 19:35:42 Dehydration 44440431 E86.0 Abdominal pain 04667678 R10.9 [id number] ANDREWS HUNTLEY, PLANT ELECTRICIAN SPR - [address] [place] [address] 04/26/2021 19:07:16 04/30/2021 11:12:07 Acute urinary tract infection 914570130 N39.0 [id number] Mirlande Schmidt, PLANT ELECTRICIAN SPR - [address] [place] [address] 01/25/2022 13:57:56 01/27/2022 19:23:10 Gastroparesis syndrome 565670634 K31.84 Acute on chronic Acute urin doris tract infection 612422122 N39.0 Health Concerns Section Related Observation LastModified by Organization Detai ls LastModified Time None Recorded Concern Status LastModified by Organization Details LastModified Time None Recorded Advance Directives Directive None Recorded Payers Insurance Date Sequence Insurance Name Policy Number Policy Schneider Covered Member ID Schneider Member ID Guarantor Name 02/07/2022 1 [place] [employer] Brooklyn Chavez [id number] Brooklyn Chavez 02/07/2022 1 [facility] - DOS PRIOR TO 2022 - DUAL ELIGIBLE (MEDICARE REPLACEMENT/AD VANTAGE - HMO) Brooklyn Chavez [id number] Brooklyn Chavez 02/07/2022 2 [place] Brooklyn L Brothers [id number] Brooklyn L Brothers 02/07/2022 1 [place] [employer] [place] Brooklyn L Brothers [id number] Brooklyn L Brothers 04/20/2019 1 *SELF PAY* Brooklyn Brothers [id number] Brooklyn L Brothers 04/20/2019 1 [place] [employer] Brooklyn L Brothers [id number] Brooklyn L Brothers 04/20/2019 1 [place] [employer] Brooklyn Brothers [id number] Brooklyn L Brothers 04/20/2019 1 *SELF PAY* Nesha Brothers [id number] Brooklyn L Brothers 04/20/2019 1 [place] Nesha Brothers [id number] Brooklyn L Brothers 05/20/2019 1 [place] [employer] [place] Brooklyn L Brothers [id number] Brooklyn L Brothers 07/31/2019 1 [place] Brooklyn L Brothers [id number] Brooklyn L Brothers 01/25/2022 1 [place] Brooklyn L Brothers [id number] Brooklyn L Brothers 04/10/2020 1 [place] Brooklyn L Brothers [id number] Brooklyn L Brothers 03/20/2020 1 [place] Brooklyn Brothers [id number] Brooklyn L Brothers 12/10/2020 2 [place] Brooklyn Brothers [id number] Brooklyn L Brothers 04/29/2020 1 [place] [employer] Brooklyn L Brothers [id number] Brooklyn L Brothers 03/03/2020 1 [place] [employer] Brooklyn L Brothers [id number] Brooklyn L Brothers 12/10/2020 1 [place] [employer] Brooklyn L Brothers [id number] Brooklyn L Brothers 04/29/2020 1 [place] [employer] Brooklyn Brothers [id number] Brooklyn L Brothers 03/27/2020 1 [place] Brooklyn Brothers [id number] Brooklyn L Brothers 12/13/2020 1 [place] [facility] Brooklyn Brothers [id number] Brooklyn L Brothers 12/11/2020 2 [place] [facility] Brooklyn Brothers [id number] Brooklyn L Brothers 02/07/2022 2 [place] [facility] Brooklyn Brothers [id number] Brooklyn L Brothers 12/11/2020 1 [place] [facility] Brooklyn Brothers [id number] Brooklyn L Brothers 12/11/2020 1 [place] [employer] Brooklyn Brothers [id number] Brooklyn L Brothers 12/11/2020 1 [place] [employer] Brooklyn Brothers [id number] Brooklyn L Brothers 12/10/2020 1 [place] [facility] Brooklyn Brothers [id number] Brooklyn L Brothers 12/06/2021 1 [place] [employer] Brooklyn L Brothers [id number] Brooklyn L Brothers 12/25/2020 2 [place] [facility] Brooklyn Brothers [id number] Brooklyn L Brothers 12/11/2020 2 [place] [facility] Brooklyn Brothers [id number] Brooklyn L Brothers 12/19/2020 1 [place] [employer] Brooklyn Brothers [id number] Brooklyn L Brothers 03/20/2020 2 [place] [facility] Brooklyn Brothers [id number] Brooklyn L Brothers Notes Date Note Type Note Provider Name and Address Organization Details Recorded Time 04/30/2020 text/html This is a 39-year-old female who is known to [facility] but new to this provider, with a 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 She was seen Tuesday at [facility] for nausea vomiting and abdominal pain. [...] antibiotics. Tete Escalante NP [address], [place], [address], [place] [facility] 04/30/2020 18:09:48 12/11/2020 text/html This is a 40-year-old female that is [facility] but new to this provider. She has a medical history significant for bechetts syndrome, Crohn's disease, gastroparesis and DVT for which she is anticoagulated. She was recently hospitalized at [facility] with complaints of low blood pressure and low heart rate. She was discharged home yesterday early afternoon. She contacted [facility] yesterday after getting home with complaints of nausea and dizziness, she required a secondary screening so she was ultimately not able to be seen as there was no provider available to screen her. She contacted [facility] again today with complaints of abdominal [...] review the patient's medical record in the inter[employer] system however her record is blocks due [...] wobbly. NAZANIN TOLBERT, PEARL [address], [place], [address], [place] [facility] 12/11/2020 17:39:08 12/31/2020 text/html 40-year-old laura oropeza who is known to [facility], with a past medical history of [...] urinary symptoms. She was reportedly admitted to [facility]- received IVF- came home with SOB- was admitted to [facility] for diuresis. She has been home about 1 week. She was seen by GI who plans to start TPN, IV Benadryl and IV Zofran. Tete Escalante, PEARL [address], [place], [id number], [place] [facility] 01/02/2021 11:52:00 04/26/2021 text/html [...] today. ANDREWS HUNTLEY, PEARL [address], [place], [address], [place] [facility] 04/26/2021 19:42:06 01/25/2022 text/html 41 year old fema le known to but new to provider with a history of DVT/PE on Eliquis, asthma, Bachets Dx, chronic gastroparesis with home TPN therapy via port, immune deficiency seen today for not feeling well after dx with UTI at [facility] late last night/early this am. Went [...] did not have childcare coverage. Went to [facility] ER last night for headache, acute on [...] at approximately 2am (now 215pm). Did not tile picker Rx for antibiotic or pyridium. Pt showed all lab and abd CT results with normal CBCD, CMP, EGFR > 60. Abn CT with no etiology for abd pain complaints. Mirlande Schmidt NP [address], [place], [address], [place] [facility] 02/03/2022 09:50:48 OBGyn Episode No OBEpisode recorded.
== END 2024-12-12 13:11 | disposition home or self-care (01) ==
LOC: HO.PMC 12:53
PROVIDERS: PCP Internal Medicine; Visit Provider Anesthesiology
DX: M54.2 Cervicalgia (principal); M35.2 Behcet's disease; M54.50 Low back pain, unspecified; R10.9 Unspecified abdominal pain; G89.29 Other chronic pain
CPT/HCPCS: 99213

== ENCOUNTER → 2024-12-12 12:52 | Outpatient (BNVA) | payer MEDICARE, MEDICAID, SELFPAY | PROVIDERS: PCP Internal Medicine; Visit Provider Anesthesiology | DX: G89.29 Other chronic pain (principal); Z97.8 Presence of other specified devices; R10.9 Unspecified abdominal pain; M54.50 Low back pain, unspecified; M35.2 Behcet's disease; M54.2 Cervicalgia | CPT/HCPCS: 99212 ==

== ENCOUNTER 2025-01-09 09:27 | Outpatient (AMB) | payer MEDICARE, MEDICAID, SELFPAY ==
[2025-01-09 09:32] VITALS: BP 116/60; PULSE 84; RESP 18; O2SAT 94
--- NOTE | 2025-01-09 09:32 | MHC.OFFVIS ---
Vital Signs 01/09/25 09:32 Weight 141 lb BP 116/60 Blood Pressure Location Lt brachial Position Sitting Respiration 18 Pulse 84 Pulse Source Pulse Oximeter Pulse Oximetry (%) 94 Oxygen Delivery Method Room Air Intake Visit Reasons: ITDD PUMP REFILL/Pill Count/ random UDS Intake Note: PT STATES SHE LAST TOOK HER HYRDOMORPHONE AT 7AM 8. 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 Allergies ciprofloxacin (Cipro) Allergy (Unknown, Verified 12/12/24 13:01) Hives levofloxacin (Levaquin) Allergy (Unknown, Verified 12/12/24 13:01) Hives metoclopramide (Reglan) Allergy (Unknown, Verified 12/12/24 13:01) Hives ondansetron (Zofran) Allergy (Unknown, Verified 12/12/24 13:01) Itching penicillin V Allergy (Unknown, Verified 12/12/24 13:01) Hives prochlorperazine (From Compazine) Allergy (Unknown, Verified 12/12/24 13:01) Shortness of Breath Sulfa (Sulfonamide Antibiotics) Allergy (Unknown, Verified 12/12/24 13:01) Hives thalidomide (From Thalomid) Allergy (Unknown, Verified 12/12/24 13:01) Rash haloperidol (From Haldol) Allergy (Verified 12/12/24 13:01) Itching HPI Comments Details: [place] is 41 years old female who is suffering from multiple medical conditions including Bencet disease, Crohn's disease, she is immunocompromised.? Her pain involves chronic abdominal pain and lower back pain.? She also has a chronic pelvic pain.? She is on chronic oral opioid therapy for 3 years.? Today she came for intrathecal medication removal and replacement as well as intrathecal pain pump interrogation. She also brought her hydromorphone 2 perform pill count. She supposed to have 46 pills in her possession. She has 46 pills in her possession. She demonstrates responsible attitude to were the opioid medications. The medications will be refilled. I will see her in 1 month for refill of the medications, I will also see her in 2 months for pain medication and refill of the medicine in her pain pump. [facility] Medical History ILD (interstitial lung disease) Enterocutaneous fistula Pulmonary emboli Crohn's disease Chronic, continuous use of opioids Immunosuppression Absence seizure disorder DVT (deep venous thrombosis) Pyloric stenosis Asthma Common variable immunodeficiency Spondylolisthesis, lumbar region Spondylosis of lumbar region without myelopathy or radiculopathy Abdominal pain, chronic, generalized Gastroparesis Spontaneous pneumothorax Chronic pain syndrome Cervicalgia Low back pain Behcet's disease Surgical History History of thoracotomy Hx of gastrostomy History of hernia surgery Family History Father Hairy cell leukemia Social History Household Members: Children Household Members Other:: son Housing: House Do you presently have visiting nurse or other home services: No Unable to assess alcohol history related to: Unknown Alcohol intake: never Patient Tobacco Use Status: Never used Tobacco Second Hand Smoke Exposure: No Advance Directives Date on File: 04/22/23 service: No Current occupational status: unemployed Review of Systems Const All systems reviewed & are unremarkable except as noted in HPI and below Physical Exam Vital Signs: Last Vital Signs Pulse 84 01/09/25 09:32 Resp 18 01/09/25 09:32 BP 116/60 01/09/25 09:32 Pulse Ox 94 01/09/25 09:32 Oxygen Delivery Method Room Air 01/09/25 09:32 Const General: cooperative, no acute distress and alert Orientation/consciousness: patient oriented x3 HEENT Head: Yes normocephalic and Yes atraumatic Ears: hearing grossly normal bilaterally Eyes General: appearance normal, both eyes and all related structures Alignment and Position: alignment normal and position normal Periorbital: periorbital findings normal Eyelids: Yes eyelids normal Pupils: Equal, round and reactive pupils present, pupils equal and not dilated EOM: EOMs intact bilaterally Direct Ophthalmoscopy: no photophobia Neck Neck: Yes normal visual inspection and Yes no JVD Resp Effort & Inspection: normal respiratory effort, able to speak in complete sentences and no audible wheezes Cardio Jugular venous distension: no JVD GI Inspection: Yes incision and Yes scar Back/Spine/Pelvis Other: Tenderness on palpation in projection of the paraspinal spinal region L3-L4-L5 area. Test is positive bilaterally. Misael test is equivocal and pelvic compression test is negative. Cervical Spine: normal cervical lordosis Thoracic/Lumbar Spine: thoracic and lumbar spine normal to inspection Neuro General: patient oriented x3, gait normal and moves all extremities Cranial nerves: Yes Equal, round and reactive pupils present Assessment & Plan Assessment & Plan (1) Cervicalgia: Code(s): M54.2 - Cervicalgia Category: Medical Plan: (2) Behcet's disease: Code(s): M35.2 - Behcet's disease Category: Medical Plan: (3) Low back pain: Code(s): M54.5 - Low back pain Category: Medical (4) Chronic abdominal pain: Code(s): R10.9 - Unspecified abdominal pain; G89.29 - Other chronic pain Category: Medical Plan: ? Intrathecal pump refill. The patient came today in the office for the change of the medication in the pain pump. The name and date of were verified and informed consent was obtained for the procedure. The pump was interrogated and the residual amount of fluid was found to be 12.4 mL. SHE WAS POSITIONED prone on the bed AND THE AREA OF THE INTRATHECAL PUMP WAS PREPPED WITH CHLORAPREP. The fenestrated drape was sterilely applied over the area of the pump. Sterile gloves were worn and of the aspiration system was assembled containing 2 in 22 gauge noncoring needle, the needle was connected to extension tubing which was connected to the 20 cc sterile syringe. The pain pump was palpated under the skin in the patient's left buttock area. The needle was inserted through the skin and the central plug of the pain pump and fluid was aspirated. The clear fluid was going into the syringe the total amount of the fluid was 12.5 mL .. After that a new batch? of medication was obtained which was containing bupivacaine in the concentration of 28 milligrams/mL.. The admixture was made in 20 cc syringe prepared by [facility] compounding pharmacy. The syringe was connected to the bacterial filter, and then connected to the extension tubing. After that the medication in the syringe was slowly instilled into the pump with aspirations at 15 and 5 cc joiner.? The pump was reprogrammed continuous dose of 1.953 mg a day as well as for possible administrations per day of bupivacaine 1.699 mg every 4 hours 4 times a day with the length of the time of the administration of each PTM dose at 59 minutes Plan Pill count is correct today continues to report good pain relief with hydromorphone she reports good mobility good activities of daily living good social interactions. I will fill her for next pill count in 1 month. I will schedule her for the next intrathecal pain pump refill with bupivacaine 2 months. We will perform pill count in 2 months as well. Medications: Refilled hydromorphone Partial fill per patient's request only 4 mg PO BID PRN 60 tabs 0RF severe pain (scale score 7-10) 30 days F11.90 - Opioid use, unspecified, uncomplicated, G89.29 - Other chronic pain, G89.4 - Chronic pain syndrome, R10.9 - Unspecified abdominal pain Coding Level of Care Code Est Pt Level 3 (68640) Procedure Only Diagnoses Cervicalgia M54.2 Behcet's disease M35.2 Low back pain M54.5 Chronic abdominal pain R10.9; G89.29
== END 2025-01-09 10:01 | disposition home or self-care (01) ==
LOC: HO.PMC 09:27
PROVIDERS: Visit Provider Anesthesiology
DX: M54.2 Cervicalgia (principal); M35.2 Behcet's disease; M54.50 Low back pain, unspecified; R10.9 Unspecified abdominal pain; Z45.1 Encounter for adjustment and management of infusion pump; G89.29 Other chronic pain
CPT/HCPCS: 62370; 99213

== ENCOUNTER → 2025-01-09 09:27 | Outpatient (BNVA) | payer MEDICARE, MEDICAID, SELFPAY | PROVIDERS: Visit Provider Anesthesiology | DX: M54.2 Cervicalgia (principal); M35.2 Behcet's disease; M54.50 Low back pain, unspecified; R10.9 Unspecified abdominal pain; G89.29 Other chronic pain; Z45.1 Encounter for adjustment and management of infusion pump; Z79.899 Other long term (current) drug therapy; Z79.891 Long term (current) use of opiate analgesic | CPT/HCPCS: 62370; 99212 ==

== ENCOUNTER 2025-02-06 09:59 | Outpatient (AMB) | payer MEDICARE, MEDICAID, SELFPAY ==
--- NOTE | 2025-02-06 10:08 | MHC.OFFVIS ---
Vital Signs 02/06/25 10:09 Weight 141 lb BP 117/59 L Blood Pressure Location Lt brachial Position Sitting Respiration 18 Pulse 82 Pulse Source Pulse Oximeter Pulse Oximetry (%) 95 Oxygen Delivery Method Room Air Intake Visit Reasons: PILL COUNT Intake Note: pt states she last took her hydromorphone t 8am 02.06.25.Xochitl says she should have 50 pills she presented with 50 Allergies ciprofloxacin (Cipro) Allergy (Unknown, Verified 02/06/25 10:08) Hives levofloxacin (Levaquin) Allergy (Unknown, Verified 02/06/25 10:08) Hives metoclopramide (Reglan) Allergy (Unknown, Verified 02/06/25 10:08) Hives ondansetron (Zofran) Allergy (Unknown, Verified 02/06/25 10:08) Itching penicillin V Allergy (Unknown, Verified 02/06/25 10:08) Hives prochlorperazine (From Compazine) Allergy (Unknown, Verified 02/06/25 10:08) Shortness of Breath Sulfa (Sulfonamide Antibiotics) Allergy (Unknown, Verified 02/06/25 10:08) Hives thalidomide (From Thalomid) Allergy (Unknown, Verified 02/06/25 10:08) Rash haloperidol (From Haldol) Allergy (Verified 02/06/25 10:08) Itching HPI Comments Details: [place] is 41 years old female who is suffering from multiple medical conditions including Bencet disease, Crohn's disease, she is immunocompromised.? Her pain involves chronic abdominal pain and lower back pain.? She also has a chronic pelvic pain.? She is on chronic oral opioid therapy since 2021.? Today she came for the hydromorphone pill count. She brought her hydromorphone to perform pill count. She supposed to have 50 pills in her possession. She has 50 pills in her possession. She denies side effects of the opioid medications, she denies constipation, she reports improved mobility with opioid medications. Her last pills she took at 08:00 today. The pill count demonstrates responsible attitude to were the opioid medications. The medications will be refilled. I will see her in 1 month for refill of the medications as well as refill of her intrathecal pain pump. [facility] Medical History ILD (interstitial lung disease) Enterocutaneous fistula Pulmonary emboli Crohn's disease Chronic, continuous use of opioids Immunosuppression Absence seizure disorder DVT (deep venous thrombosis) Pyloric stenosis Asthma Common variable immunodeficiency Spondylolisthesis, lumbar region Spondylosis of lumbar region without myelopathy or radiculopathy Abdominal pain, chronic, generalized Gastroparesis Spontaneous pneumothorax Chronic pain syndrome Cervicalgia Low back pain Behcet's disease Surgical History History of thoracotomy Hx of gastrostomy History of hernia surgery Family History Father Hairy cell leukemia Social History Household Members: Children Household Members Other:: son Housing: House Do you presently have visiting nurse or other home services: No Unable to assess alcohol history related to: Unknown Alcohol intake: never Patient Tobacco Use Status: Never used Tobacco Second Hand Smoke Exposure: No Advance Directives Date on File: 04/22/23 service: No Current occupational status: unemployed Review of Systems Const All systems reviewed & are unremarkable except as noted in HPI and below Physical Exam Vital Signs: Last Vital Signs Pulse 82 02/06/25 10:09 Resp 18 02/06/25 10:09 BP 117/59 L 02/06/25 10:09 Pulse Ox 95 02/06/25 10:09 Oxygen Delivery Method Room Air 02/06/25 10:09 Const General: cooperative, no acute distress and alert Orientation/consciousness: patient oriented x3 HEENT Head: Yes normocephalic and Yes atraumatic Ears: hearing grossly normal bilaterally Eyes General: appearance normal, both eyes and all related structures Alignment and Position: alignment normal and position normal Periorbital: periorbital findings normal Eyelids: Yes eyelids normal Pupils: Equal, round and reactive pupils present, pupils equal and not dilated EOM: EOMs intact bilaterally Direct Ophthalmoscopy: no photophobia Neck Neck: Yes normal visual inspection and Yes no JVD Resp Effort & Inspection: normal respiratory effort, able to speak in complete sentences and no audible wheezes Cardio Jugular venous distension: no JVD GI Inspection: Yes incision and Yes scar Back/Spine/Pelvis Other: Tenderness on palpation in projection of the paraspinal spinal region L3-L4-L5 area. Test is positive bilaterally. Misael test is equivocal and pelvic compression test is negative. Cervical Spine: normal cervical lordosis Thoracic/Lumbar Spine: thoracic and lumbar spine normal to inspection Neuro General: patient oriented x3, gait normal and moves all extremities Cranial nerves: Yes Equal, round and reactive pupils present Assessment & Plan Assessment & Plan (1) Cervicalgia: Code(s): M54.2 - Cervicalgia Category: Medical Plan: (2) Behcet's disease: Code(s): M35.2 - Behcet's disease Category: Medical Plan: (3) Low back pain: Code(s): M54.5 - Low back pain Category: Medical (4) Chronic abdominal pain: Code(s): R10.9 - Unspecified abdominal pain; G89.29 - Other chronic pain Category: Medical Plan Pill count is correct today continues to report good pain relief with hydromorphone she reports good mobility good activities of daily living good social interactions. I will fill her for next pill count in 1 month. I will schedule her for the next intrathecal pain pump refill with bupivacaine 2 months. We will perform pill count in 2 months as well. Medications: Refilled hydromorphone Partial fill per patient's request only 4 mg PO BID PRN 60 tabs 0RF severe pain (scale score 7-10) 30 days F11.90 - Opioid use, unspecified, uncomplicated, G89.29 - Other chronic pain, G89.4 - Chronic pain syndrome, R10.9 - Unspecified abdominal pain Coding Level of Care Code Est Pt Level 3 (44908) Diagnoses Cervicalgia M54.2 Behcet's disease M35.2 Low back pain M54.5 Chronic abdominal pain R10.9; G89.29
[2025-02-06 10:09] VITALS: BP 117/59; PULSE 82; RESP 18; O2SAT 95
== END 2025-02-06 10:31 | disposition home or self-care (01) ==
LOC: HO.PMC 10:00
PROVIDERS: Visit Provider Anesthesiology
DX: M54.2 Cervicalgia (principal); M35.2 Behcet's disease; M54.50 Low back pain, unspecified; R10.9 Unspecified abdominal pain; G89.29 Other chronic pain
CPT/HCPCS: 99213

== ENCOUNTER → 2025-02-06 09:59 | Outpatient (BNVA) | payer MEDICARE, MEDICAID, SELFPAY | PROVIDERS: Visit Provider Anesthesiology | DX: M54.2 Cervicalgia (principal); M35.2 Behcet's disease; M54.50 Low back pain, unspecified; R10.9 Unspecified abdominal pain; G89.29 Other chronic pain | CPT/HCPCS: 99212 ==

== ENCOUNTER 2025-03-07 10:59 | Outpatient (AMB) | payer MEDICARE, MEDICAID, SELFPAY ==
--- NOTE | 2025-03-07 11:10 | MHC.OFFVIS ---
Vital Signs 03/07/25 11:11 Weight 141 lb Intake Visit Reasons: ITDD REFILL/Pill Count Intake Note: Patient here for a pill count routine of Hydromorphone. Per direction patient should have 52 pills. Patient presented 52 pills. Last took 8am. 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 Accompanied by: Self / Same As Patient Allergies ciprofloxacin (Cipro) Allergy (Unknown, Verified 03/07/25 11:11) Hives levofloxacin (Levaquin) Allergy (Unknown, Verified 03/07/25 11:11) Hives metoclopramide (Reglan) Allergy (Unknown, Verified 03/07/25 11:11) Hives ondansetron (Zofran) Allergy (Unknown, Verified 03/07/25 11:11) Itching penicillin V Allergy (Unknown, Verified 03/07/25 11:11) Hives prochlorperazine (From Compazine) Allergy (Unknown, Verified 03/07/25 11:11) Shortness of Breath Sulfa (Sulfonamide Antibiotics) Allergy (Unknown, Verified 03/07/25 11:11) Hives thalidomide (From Thalomid) Allergy (Unknown, Verified 03/07/25 11:11) Rash haloperidol (From Haldol) Allergy (Verified 03/07/25 11:11) Itching HPI Comments Details: [place] is 41 years old female who is suffering from multiple medical conditions including Bencet disease, Crohn's disease, she is immunocompromised.? Her pain involves chronic abdominal pain and lower back pain.? She also has a chronic pelvic pain.? She is on chronic oral opioid therapy for 3 years.? Today she came for intrathecal medication bupivacaine removal and replacement as well as intrathecal pain pump interrogation. See the refilled documentation as below. She also brought her hydromorphone 2 perform pill count. She supposed to have 52 pills in her possession. She has 52 pills in her possession. She demonstrates responsible attitude to were the opioid medications. The medications will be refilled. I will see her in 1 month for refill of the medications, I will also see her in 2 months for pain medication and refill of the medicine in her pain pump. [facility] Medical History ILD (interstitial lung disease) Enterocutaneous fistula Pulmonary emboli Crohn's disease Chronic, continuous use of opioids Immunosuppression Absence seizure disorder DVT (deep venous thrombosis) Pyloric stenosis Asthma Common variable immunodeficiency Spondylolisthesis, lumbar region Spondylosis of lumbar region without myelopathy or radiculopathy Abdominal pain, chronic, generalized Gastroparesis Spontaneous pneumothorax Chronic pain syndrome Cervicalgia Low back pain Behcet's disease Surgical History History of thoracotomy Hx of gastrostomy History of hernia surgery Family History Father Hairy cell leukemia Social History Household Members: Children Household Members Other:: son Housing: House Do you presently have visiting nurse or other home services: No Alcohol intake: never Patient Tobacco Use Status: Never used Tobacco Second Hand Smoke Exposure: No Advance Directives Date on File: 04/22/23 service: No Current occupational status: unemployed Review of Systems Const All systems reviewed & are unremarkable except as noted in HPI and below Physical Exam Const General: cooperative, no acute distress and alert Orientation/consciousness: patient oriented x3 HEENT Head: Yes normocephalic and Yes atraumatic Ears: hearing grossly normal bilaterally Eyes General: appearance normal, both eyes and all related structures Alignment and Position: alignment normal and position normal Periorbital: periorbital findings normal Eyelids: Yes eyelids normal Pupils: Equal, round and reactive pupils present, pupils equal and not dilated EOM: EOMs intact bilaterally Direct Ophthalmoscopy: no photophobia Neck Neck: Yes normal visual inspection and Yes no JVD Resp Effort & Inspection: normal respiratory effort, able to speak in complete sentences and no audible wheezes Cardio Jugular venous distension: no JVD GI Inspection: Yes incision and Yes scar Back/Spine/Pelvis Other: Tenderness on palpation in projection of the paraspinal spinal region L3-L4-L5 area. Test is positive bilaterally. Misael test is equivocal and pelvic compression test is negative. Cervical Spine: normal cervical lordosis Thoracic/Lumbar Spine: thoracic and lumbar spine normal to inspection Neuro General: patient oriented x3, gait normal and moves all extremities Cranial nerves: Yes Equal, round and reactive pupils present Assessment & Plan Assessment & Plan (1) Cervicalgia: Code(s): M54.2 - Cervicalgia Category: Medical Plan: (2) Behcet's disease: Code(s): M35.2 - Behcet's disease Category: Medical Plan: (3) Low back pain: Code(s): M54.5 - Low back pain Category: Medical (4) Chronic abdominal pain: Code(s): R10.9 - Unspecified abdominal pain; G89.29 - Other chronic pain Category: Medical Plan: ? Intrathecal pump refill. The patient came today in the office for the change of the medication in the pain pump. The name and date of were verified and informed consent was obtained for the procedure. The pump was interrogated and the residual amount of fluid was found to be 14.1 mL. SHE WAS POSITIONED prone on the bed AND THE AREA OF THE INTRATHECAL PUMP WAS PREPPED WITH CHLORAPREP. The fenestrated drape was sterilely applied over the area of the pump. Sterile gloves were worn and of the aspiration system was assembled containing 2 in 22 gauge noncoring needle, the needle was connected to extension tubing which was connected to the 20 cc sterile syringe. The pain pump was palpated under the skin in the patient's left buttock area. The needle was inserted through the skin and the central plug of the pain pump and fluid was aspirated. The clear fluid was going into the syringe the total amount of the fluid was 14.1 mL .. After that a new batch? of medication was obtained which was containing bupivacaine in the concentration of 28 milligrams/mL.. The admixture was made in 20 cc syringe prepared by [facility] compounding pharmacy. The syringe was connected to the bacterial filter, and then connected to the extension tubing. After that the medication in the syringe was slowly instilled into the pump with aspirations at 15 and 5 cc joiner.? The pump was reprogrammed continuous dose of 1.953 mg a day as well as for possible administrations per day of bupivacaine 1.699 mg every 4 hours 4 times a day with the length of the time of the administration of each PTM dose at 59 minutes Plan Pill count is correct today continues to report good pain relief with hydromorphone she reports good mobility good activities of daily living good social interactions. I will fill her for next pill count in 1 month. I will schedule her for the next intrathecal pain pump refill with bupivacaine in 2 months. Medications: Refilled hydromorphone Partial fill per patient's request only 4 mg PO BID PRN 60 tabs 0RF severe pain (scale score 7-10) 30 days F11.90 - Opioid use, unspecified, uncomplicated, G89.29 - Other chronic pain, G89.4 - Chronic pain syndrome, R10.9 - Unspecified abdominal pain Coding Level of Care Code Est Pt Level 3 (40679) Procedure Only Diagnoses Cervicalgia M54.2 Behcet's disease M35.2 Low back pain M54.5 Chronic abdominal pain R10.9; G89.29
== END 2025-03-07 11:30 | disposition home or self-care (01) ==
LOC: HO.PMC 10:59
PROVIDERS: Visit Provider Anesthesiology
DX: M54.2 Cervicalgia (principal); M35.2 Behcet's disease; M54.50 Low back pain, unspecified; R10.9 Unspecified abdominal pain; G89.29 Other chronic pain
CPT/HCPCS: 62370; 99213

== ENCOUNTER → 2025-03-07 10:59 | Outpatient (BNVA) | payer MEDICARE, MEDICAID, SELFPAY | PROVIDERS: Visit Provider Anesthesiology | DX: Z45.1 Encounter for adjustment and management of infusion pump (principal); G89.29 Other chronic pain; Z79.891 Long term (current) use of opiate analgesic | CPT/HCPCS: 62370; 99212 ==

== ENCOUNTER 2025-04-04 13:16 | Outpatient (AMB) | payer MEDICARE, MEDICAID, SELFPAY ==
[2025-04-04 13:21] VITALS: BP 110/58; PULSE 77; RESP 16; O2SAT 91; BMI 27.9
--- NOTE | 2025-04-04 13:21 | MHC.OFFVIS ---
Vital Signs 04/04/25 13:21 Height 5 ft Weight 143 lb BMI 27.9 BP 110/58 L Blood Pressure Location Rt brachial Position Sitting Respiration 16 Pulse 77 Pulse Source Pulse Oximeter Pulse Oximetry (%) 91 L Oxygen Delivery Method Room Air Intake Visit Reasons: PILL COUNT Intake Note: Patient here for a pill count of Hydromorphone, per directions patient should have 54 pills. Patient presented 57 pills. Last took 8am Conflict Resolution Professional Required: No Accompanied by: Self / Same As Patient Allergies ciprofloxacin (Cipro) Allergy (Unknown, Verified 04/04/25 13:28) Hives levofloxacin (Levaquin) Allergy (Unknown, Verified 04/04/25 13:28) Hives metoclopramide (Reglan) Allergy (Unknown, Verified 04/04/25 13:28) Hives ondansetron (Zofran) Allergy (Unknown, Verified 04/04/25 13:28) Itching penicillin V Allergy (Unknown, Verified 04/04/25 13:28) Hives prochlorperazine (From Compazine) Allergy (Unknown, Verified 04/04/25 13:28) Shortness of Breath Sulfa (Sulfonamide Antibiotics) Allergy (Unknown, Verified 04/04/25 13:28) Hives thalidomide (From Thalomid) Allergy (Unknown, Verified 04/04/25 13:28) Rash haloperidol (From Haldol) Allergy (Verified 04/04/25 13:28) Itching HPI Comments Details: [place] shaw Is back in my office for the pill count and the follow-up. She presented herself today with 57 pills in her possession. She supposed to have only 54 pills in her possession. This demonstrates responsible attitude to were the opioid medications. She reports with the anabaptist of cold weather her pain became worse and now ranging in the 7 to 8/10. She reports that she is not using her intrathecal pain pump with bupivacaine as as much as she could be. I recommended her to use the pain pump medication as often as it allows her to. Prior:41 years old female who is suffering from multiple medical conditions including Bencet disease, Crohn's disease, she is immunocompromised.? Her pain involves chronic abdominal pain and lower back pain.? She also has a chronic pelvic pain.? She is on chronic oral opioid therapy for 3 years.? [facility] Medical History ILD (interstitial lung disease) Enterocutaneous fistula Pulmonary emboli Crohn's disease Chronic, continuous use of opioids Immunosuppression Absence seizure disorder DVT (deep venous thrombosis) Pyloric stenosis Asthma Common variable immunodeficiency Spondylolisthesis, lumbar region Spondylosis of lumbar region without myelopathy or radiculopathy Abdominal pain, chronic, generalized Gastroparesis Spontaneous pneumothorax Chronic pain syndrome Cervicalgia Low back pain Behcet's disease Surgical History History of thoracotomy Hx of gastrostomy History of hernia surgery Family History Father Hairy cell leukemia Social History Household Members: Children Household Members Other:: son Housing: House Do you presently have visiting nurse or other home services: No Alcohol intake: never Patient Tobacco Use Status: Never used Tobacco Second Hand Smoke Exposure: No Advance Directives Date on File: 04/22/23 service: No Current occupational status: unemployed Review of Systems Const All systems reviewed & are unremarkable except as noted in HPI and below Physical Exam Vital Signs: Last Vital Signs Pulse 77 04/04/25 13:21 Resp 16 04/04/25 13:21 BP 110/58 L 04/04/25 13:21 Pulse Ox 91 L 04/04/25 13:21 Oxygen Delivery Method Room Air 04/04/25 13:21 BMI result Body Mass Index 27.9 Const General: cooperative, no acute distress and alert Orientation/consciousness: patient oriented x3 HEENT Head: Yes normocephalic and Yes atraumatic Ears: hearing grossly normal bilaterally Eyes General: appearance normal, both eyes and all related structures Alignment and Position: alignment normal and position normal Periorbital: periorbital findings normal Eyelids: Yes eyelids normal Pupils: Equal, round and reactive pupils present, pupils equal and not dilated EOM: EOMs intact bilaterally Direct Ophthalmoscopy: no photophobia Neck Neck: Yes normal visual inspection and Yes no JVD Resp Effort & Inspection: normal respiratory effort, able to speak in complete sentences and no audible wheezes Cardio Jugular venous distension: no JVD GI Inspection: Yes incision and Yes scar Back/Spine/Pelvis Other: Tenderness on palpation in projection of the paraspinal spinal region L3-L4-L5 area. Test is positive bilaterally. Misael test is equivocal and pelvic compression test is negative. Cervical Spine: normal cervical lordosis Thoracic/Lumbar Spine: thoracic and lumbar spine normal to inspection Neuro General: patient oriented x3, gait normal and moves all extremities Cranial nerves: Yes Equal, round and reactive pupils present Assessment & Plan Assessment & Plan (1) Cervicalgia: Code(s): M54.2 - Cervicalgia Category: Medical Plan: (2) Behcet's disease: Code(s): M35.2 - Behcet's disease Category: Medical Plan: (3) Low back pain: Code(s): M54.5 - Low back pain Category: Medical (4) Chronic abdominal pain: Code(s): R10.9 - Unspecified abdominal pain; G89.29 - Other chronic pain Category: Medical Plan Pill count is correct today continues to report good pain relief with hydromorphone she reports good mobility good activities of daily living good social interactions. I will fill her for next pill count To be due on 05/02/2025.h. In 1 month she will come for intrathecal pain pump refill and another pill count and hydromorphone refill. Medications: Refilled hydromorphone Partial fill per patient's request only 4 mg PO BID PRN 60 tabs 0RF severe pain (scale score 7-10) 30 days F11.90 - Opioid use, unspecified, uncomplicated, G89.29 - Other chronic pain, G89.4 - Chronic pain syndrome, R10.9 - Unspecified abdominal pain Coding Level of Care Code Est Pt Level 3 (18899) Diagnoses Cervicalgia M54.2 Behcet's disease M35.2 Low back pain M54.5 Chronic abdominal pain R10.9; G89.29
--- OUTSIDE RECORDS SUMMARY | 2025-04-04 16:35 | XMS_ITS | Data Portability ---
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 Pt reports on Tuesday04/27/20 she went to [place] [facility] for abdominal pain, urine was tested [...] breathing unlabored Abd soft, tender LLQ, (-) Beverly & Psoas signs, no rebound tenderness (+) [...] I have accessed patient records on the [employer]. This information was pertinent in my medical decision making today. Time On Scene with Patient: 00:00:15 Not available 04/30/2020 14:10:35 12/11/2020 12/11/2020 Overview/History :T is a 40-year-old female that is known to [facility], she was discharged home from the hospital yesterday. She was seen by GI during her hospitalization, she does have a history of Crohn's and gastro paresis. She contacted [facility] with complaints of dizziness and nausea. [...] further work up on the end of [facility]. Plan/Discussion:I discussed with the patient that [...] after care of this patient according to [facility] infection [facility] protocols. Time On Scene with Patient: 00:46:48 Time On Scene with Patient: 00:46:48 [email or web address] Not available 12/11/2020 15:15:43 12/31/2020 12/31/2020 Overview/History : This is a 40-year-old female who is known to [facility] provider, with a past medical history of DVTs & pulmonary embolism currently on Eliquis, Behcet's disease, Crohn's disease, gastroparesis, common variable immune deficiency, and followed by the pain clinic- on Morphine for chronic abdominal pain. Pt reports recently seen in [place] [facility] for abdominal pain. She continues to [...] care were discussed with the Virtual Physician information systems professor for [facility]- Dr. Leon who agrees patient needs to go to ED for nutrition and fluids and to be seen again by GI specialist. The patient understood and agreed with this plan. The patient was given discharge instructions and all questions were answered prior to DH team departure. [email or web address] Not available 01/02/2021 11:51:51 04/26/2021 04/26/2021 Brief [...] Ambulatory with steady gait Work up/Results: Reviewed [facility] records DDx considered & Medical Decision [...] accessed patient records on the [employer] with patient portal. This information was pertinent in my medical decision making today. Proper Personal Protective Equipment (PPE), including gloves, surgical mask were donned and doffed appropriately and all equipment cleaned using approved technique with germicidal disposable wipes prior to and after care of this patient according to [facility] infection prevention protocols. Time On Scene with Patient: 00:25:23 [email or web address] Not available 04/26/2021 19:41:52 01/25/2022 01/25/2022 Overview/History : 41 year old female known to but new to provider with a history of DVT/PE on Eliquis, asthma, Bachets Dx, chronic gastroparesis with home TPN therapy via port, immune deficiency seen today for not feeling well after dx with UTI at [facility] late last night/early this am. Went [...] did not have childcare coverage. Went to [place] [facility] last night for headache, acute on [...] at approximately 2am (now 215pm). Did not pickle cutter Rx for antibiotic or pyridium. Pt showed [...] not limited to: -UTI: per pt with [place] [facility], culture pending -Dehydration: considered as cause of headache with normal BYN/Cr on labs though -Sinusitis: considered with frontal headache but no rhinorrhea, URI signs -Acute on chronic abd pain/gastroparesis flare Work up/Results: None indicated; pt needs to pickle cutter prescribed meds as due for antibiotic Plan/Discussion: UTI -Increase fluids as tolerated to improve UTI and headache; use in conjunction with IV zofran - property supervisor antibiotics (Macrobid and pyridium) -Take Excedrin [...] Appointments None recorded. Lab culture, urine 2020 [facility] (Centralized Electronic Ordering - All Locations), Patient Can Go To The Location Of Their Choice, [id number] 1 12:36:46 urinalysis, dipstick 2019 [email or web address] Spr - [place], [address] [place] [address], [address], 0 11:32:18 culture, urine - [facility] (Centralized Electronic Ordering - All Locations), Patient Can Go To The Location Of Their Choice, [id number] 0 10:13:17 Referral None recorded. Procedures None recorded. Surgeries None recorded. Imaging None recorded. Medication Orders nitrofurant oin monohydrate /macrocryst als 100 mg capsule 2020 [facility]/Pharmacy #[id number], [id number] [facility] , [place], [address], 1 19:32:33 Patient TargetsNo targets recorded. Patient Instructions Encounter Date Encounter Id Patient Instructions Last Modified By Organization Details Last Modified Time 04/30/2020 [id number] We tested your urine today, there is [...] in your condition between 8am-10pm, please call [facility] at [phone] to help navigate your care. [email or web address] Not available 04/30/2020 11:32:17 12/31/2020 [id number] Care escalated t o ED [email or web address] Not available 12/31/2020 14:39:34 04/26/2021 [id number] URINARY TRACT INFECTION INSTRUCTIONS BASIC INFORMATION Urinary [...] and thong underwear which may facilitate UTI s . Avoid tub baths Avoid using [...] in your condition between 8am-10pm, please call [facility] at [phone] to help navigate your care. [email or web address] Not available 04/26/2021 19:41:58 01/25/2022 [id number] --You were seen today for ongoing headache, acute on chronic left abdominal pain with negative cat scan -You were diagnosed with UTI in ER; pickle cutter your antibiotics and pyridium -Increase your water [...] Go To The Location Of Their Choice, [id number] 05/02/2020 10:13:17 04/30/2005/01/2020 cultu re, urine special requests NONE Not Available [facility] (Centralized Electronic Ordering - All Locations) Patient Can Go To The Location Of Their Choice, [id number] 05/02/2020 10:13:17 04/30/2005/02/2020 cultu re, urine culture <10,00 0 COL/ML abnormal Not Available [facility] (Centralized Electronic Ordering - All Locations) Patient Can Go To The Location Of Their Choice, [id number] 05/02/2020 10:13:17 04/30/2005/02/2020 cultu re, urine report status FINAL 2019 Not Available [facility] (Centralized Electronic Ordering - All Locations) Patient Can Go To The Location Of Their Choice, [id number] 05/02/2020 10:13:17 04/30/20 20 04/30/2020 urina lysis , dipst ick Appearance clear Not Available Spr - [facility]me [address], [place], [address], 04/30/2020 11:29:27 04/30/20 20 04/30/2020 urina lysis , dipst ick Color yellow Not Available Spr - Home [address], [place], [address], 04/30/2020 11:29:27 04/30/20 20 04/30/2020 urina lysis , dipst ick Glucose negati ve Not Available Spr - Home [address], [place], [address], 04/30/2020 11:29:27 04/30/20 20 04/30/2020 urina lysis , dipst ick Bilirubin negati ve Not Available Spr - Home [address] [place], [address], 04/30/2020 11:29:27 04/30/20 20 04/30/2020 urina lysis , dipst ick Ketones NEG Not Available Spr - Home [address], [place], [address], 04/30/2020 11:29:27 04/30/20 20 04/30/2020 urina lysis , dipst ick Sp. [place] 1.030 Not Available Spr - Home [address] [place], [address], 04/30/2020 11:29:27 04/30/20 20 04/30/2020 urina lysis , dipst ick Blood + Not Available Spr - Home [address], [place], [address], 04/30/2020 11:29:27 04/30/20 20 04/30/2020 urina lysis , dipst ick pH 5.0 Not Available Spr - Home [address] [place], [address], 04/30/2020 11:29:27 04/30/20 20 04/30/2020 urina lysis , dipst ick Protein negati ve Not Available Spr - Home [address] [place], [address], 04/30/2020 11:29:27 04/30/20 20 04/30/2020 urina lysis , dipst ick Urobilirubin negati ve Not Available Spr - Home [address] [place], [address], 04/30/2020 11:29:27 04/30/20 20 04/30/2020 urina lysis , dipst ick Nitrites NEG Not Available Spr - [place] [address] [place], [address], 04/30/2020 11:29:27 04/30/20 20 04/30/2020 urina lysis , dipst ick Leukocytes NEG Not Available Spr - H [facility]me [address] [place], [address], 04/30/2020 11:29:27 04/26/20 21 04/27/2021 URINE CULTU RE specimen description URINE Not Available [facility] (Centralized Electronic Ordering - All Locations) Patient Can Go To The Location Of Their Choice, [id number] 05/01/2021 19:07:04 04/26/20 21 04/27/2021 URINE CULTU RE special requests NONE Not Available [facility] (Centralized Electronic Ordering - All Locations) Patient Can Go To The Location Of Their Choice, [id number] 05/01/2021 19:07:04 04/26/20 21 04/28/2021 URINE CULTU RE culture NO GROWTH Not Available [facility] (Centralized Electronic Ordering - All Locations) Patient Can Go To The Location Of Their Choice, [id number] 05/01/2021 19:07:04 04/26/20 21 04/28/2021 URINE CULTU RE report status FINAL 2020 Not Available [facility] (Centralized Electronic Ordering - All Locations) Patient Can Go To The Location Of Their Choice, [id number] 05/01/2021 19:07:04 Result Notes None recorded. Problems Name Problem SNOMED Code Status Onset Date Resolution Date Notes Provider Name and Address Organization Details Recorded Time Gastroparesi s syndrome 432816797 Active 2018 ELAINE PEREZ NP [address], [facility] [place], [address], [place] [facility] 9 13:12:39 Behcet's syndrome 382195008 Active 2019 America Ferrera NP [address], [facility] [place], [address], [place] [facility] 0 21:06:32 Deep venous thrombosis 542932739 Active 2019 America Ferrera NP [address], [facility] [place], [address], [place] [facility] 0 21:06:41 Pulmonary embolism 98476760 Active 2019 America Ferrera NP [address], [facility], [address], [place] [facility] 0 21:06:53 Crohn's disease 98035450 Active 2019 America Ferrera NP [address], [facility] [place], [address], [place] [facility] 0 21:46:14 Problem Notes None recorded. Procedures Surgical History Date Name Laterality Status Provider Name and Address Organization Details Recorded Time 01/26/20 22 Medication Review completed Mirlande Schmidt NP [address], [place], [address], [place] [facility] 01/25/2022 15:08:05 01/01/20 21 Medication Review completed Tete Escalante NP [address], [place], [address], [place] [facility] 12/31/2020 13:43:54 05/20/20 19 Venipuncture - DH completed ELAINE PEREZ NP [address], [place], [address], [place] [facility] 05/24/2019 12:06:55 05/20/20 19 ECG Interpretation - DH completed ELAINE PEREZ, WORT EXTRACTOR [address], [place], [address], [place] [facility] 05/20/2019 20:46:01 Port, indwelling, imp completed ANDREWS HUNTLEY, PEARL [address], [place], [address], [place] [facility] 04/26/2021 19:09:01 Remove tonsils and adenoids completed Nora more-doug ckso [place] [facility] 02/26/2019 13:37:50 laparotomy completed Nora more-doug ckso [place] [facility] 02/26/2019 13:37:50 Hernia Repair completed Nora more-doug ckso [place] [facility] 02/26/2019 13:37:50 jejunotomy completed Nora more-doug ckso [place] [facility] 02/26/2019 13:37:50 imaging guided percutaneous transluminal angioplasty of blood vessel with contrast completed Nora more-doug ckso [place] [facility] 02/26/2019 13:37:50 gastrostomy completed Nora more-doug ckso [place] [facility] 02/26/2019 13:37:50 Hernia repair w/mesh completed HARJINDER UNGER NP [address] [place], [address], [place] [facility] 02/24/2019 09:17:51 Imaging Results None recorded. Procedure Notes None recorded. Medical Equipment None Reported. Allergies Allergen ID Allergen Name Allergen Category Reaction Reaction Severity Criticality Documentation Date Start Date Code Code System Note Provider Name and Address Organization Details Recorded Time 88463 Product containin g penicilli n (product) medicatio n rash Not available Not available 01/13/2019 02210 8001 SNOMED Nora more-e rickso null, [place] [facility] 13:37:49 13120 Bactrim medicatio n rash Not available Not available 01/13/2019 30544 9 RxNorm Nora more-e rickso null, [place] [facility] 13:37:49 82358 Reglan medicatio n rash Not available Not available 01/13/2019 9230 RxNorm Nora more-e rickso null, [place] [facility] 9 13:37:49 80623 Cipro medicatio n rash Not available Not available 01/13/201962102 3 RxNorm Nora more-e rickso null, [place] [facility] 9 13:37:49 16160 thalidomi de medicatio n hives Not available Not available 01/13/2019 23159 RxNorm Nora more-e rickso null, [place] [facility] 9 13:37:49 72402 Avelox medicatio n rash Not available Not available 01/13/2019 78382 6 RxNorm Nora more-e rickso null, [place] [facility] 9 13:37:49 42232 Compazine medicatio n rash Not available Not available 01/13/201978707 6 RxNorm Nora more-e rickso null, [place] [facility] 9 13:37:49 65140 penicilla mine medicatio n Not available Not available Not available 02/24/2019 7975 RxNorm HARJINDER UNGER, PEARL [address], [place], [address], [place] [facility] 9 09:14:07 75299 Bactrim medicatio n Not available Not available Not available 02/24/2019 18936 9 RxNorm ELAINE PEREZ NP [address], [place], [address], [place] [facility] 9 13:11:15 42143 Reglan medicatio n Not available Not available Not available 02/24/2019 9230 RxNorm ELAINE PEREZ NP [address], [place], [address], [place] [facility] 9 13:11:30 45274 Cipro medicatio n Not available Not available Not available 02/24/201917299 3 RxNorm ELAINE PEREZ , WORT EXTRACTOR [address] [place], [address], [place] [facility] 9 13:11:19 49858 thalidomi de medicatio n Not available Not available Not available 02/24/2019 12824 RxNorm ELAINE PEREZ , WORT EXTRACTOR [address], [place], [address], [place] [facility] 9 13:11:36 28412 Avelox medicatio n Not available Not available Not available 02/24/2019 99596 6 RxNorm ELAINE PEREZ , WORT EXTRACTOR [address], [place], [address], [place] [facility] 9 13:11:11 26257 Compazine medicatio n Not available Not available Not available 02/24/2019 50164 6 RxNorm ELAINE PEREZ , WORT EXTRACTOR [address], [place], [address], [place] [facility] 9 13:11:23 30485 Levaquin medicatio n Not available Not available Not available 02/24/2019 52283 2 RxNorm HARJINDER UNGER, WORT EXTRACTOR [address], [place], [address], [place] [facility] 9 09:14:57 92664 Zofran medicatio n Not available Not available Not available 02/24/2019 62403 RxNorm HARJINDER UNGER, WORT EXTRACTOR [address], [place], [address], [place] [facility] 9 [...] mm[Hg] 118/66 mm[Hg] 112/64 mm[Hg] Not Available [facility] 1 14:30:28 Date Recorded Respiratory rate Oxygen saturation Oxygen saturation in Arterial blood by Pulse oximetry Heart rate Body temperature Systolic And Diastolic Provider Name and Address Organization Details Last Updated DateTime 1 18 /min 93 % 93 % 60 /min 97.7 [degF] 74/40 mm[Hg] Not Available [facility] 1 14:14:28 Date Recorded Oxygen saturation Oxygen saturation in Arterial blood by Pulse oximetry Heart rate Respiratory rate Body temperature Systolic And Diastolic Provider Name and Address Organization Details Last Updated DateTime 2 95 % 95 % 80 /min 18 /min 97.3 [degF] 112/66 mm[Hg] Not Available [facility] 2 14:03:13 Date Recorded Body temperature Heart rate Respiratory rate Oxygen saturation Oxygen saturation in Arterial blood by Pulse oximetry Systolic And Diastolic Provider Name and Address Organization Details Last Updated DateTime 1 97.8 [degF] 90 /min 20 /min 97 % 97 % 110/70 mm[Hg] Not Available [facility] 1 19:13:37 Date Recorded Body temperature Heart rate Respiratory rate Oxygen saturation Oxygen saturation in Arterial blood by Pulse oximetry Systolic And Diastolic Provider Name and Address Organization Details Last Updated DateTime 0 97.4 [degF] 64 /min 16 /min 99 % 99 % 110/64 mm[Hg] Not Available [facility] 0 11:19:12 Social History Question Answer Notes LastModified by Organizat ion Details LastModified Time Tobacco Smoking Status Never Smoker HARJINDER UNGER NP [address] [place], [address], [place] [facility] 02/24/2019 09:16:56 Drugs Abused [...] History Condition Response Coronary Artery Disease N Depression N COPD N Diabetes N Cancer N Stroke N Asthma Y High Cholesterol N Pulmonary Embolism Y Hypertension N Kidney Disease N Gynecological HistoryNo gynecological history recorded. Obstetrics History GPAL:G 0 P 0 0 0 0 Past Encounters Encounter ID Performer Location Encounter Start Date Encounter Closed Date Diagnosis/Indication Diagnosis SNOMED-CT Code Diagnosis ICD10 Code Diagnosis IMO Codes Diagnosis Note [id number] HARJINDER UNGER NP [facility] [address] [place] [address] 01/13/2019 15:41:39 01/15/2019 13:01:16 Contusion of upper arm 13168707 S40.029A [id number] HARJINDER UNGER NP [facility] - [facility] [address] [place] [address] 02/24/2019 09:01:29 02/26/2019 13:15:01 Pain in throat 195502502 R07.0 Candidiasis of mouth 797 39052 B37.0 Called Pharmacist to add1 part Diphenhydr amine 12.5 mg/5 mL1 part Viscous lidocaine 2%1 part MaaloxPT will take 5ml QID swish and swallow. Pharyngitis 220161252 J0 2.9 [id number] ELAINE PEREZ NP [facility] [address] [place] [address] 04/16/2019 13:10:41 04/16/2019 20:09:51 Urinary tract infectious disease 27458003 N39.0 [id number] NIVIA CAMPBELL [facility] [address] [place] [address] 04/18/2019 15:47:19 04/20/2019 11:55:41 Fever 591727837 R50.9 Lower abdominal pain 545 87708 R10.30 Acute urin doris tract infection 453867944 N39.0 Headache 29384949 R51 Nausea 951228637 R11.0 [id number] ELAINE PEREZ NP [facility] [address] [place] [address] 05/20/2019 20:06:21 05/22/2019 10:30:18 Headache 07105084 R51 Syncope and collapse 309 871380 R55 Long-term current use of anticoagulant 766568706 Z79.01 [id number] NIVIA DIAZ [facility] - [facility] [address] [place] [address] 07/29/2019 11:17:51 07/31/2019 18:23:01 Dizziness present 263877688 R42 Viral gastroenteritis 11 3696676 A08.4 Orthostati c hypotension 23263649 I95.1 Diarrhea 85769139 R19.7 [id number] America Laura Prathernn WORT EXTRACTOR [facility] - [facility] [address] [facility] [place] [address] 03/20/2020 21:03:52 03/21/2020 14:55:42 Diarrhea 91105040 R19.7 Overview/H istory: Patient is a 39 [...] sent to lab for confirmati on Dehydration 62284067 E86 .0 Abdominal pain 17211787 R10.9 Urinary tr act infectious disease 40373508 N39.0 [id number] Tete Escalante, WORT EXTRACTOR [facility] [address] [place] [address] 04/30/2020 11:13:21 04/30/2020 14:15:49 Flank pain 959468210 R10.9 [id number] NAZANIN TOLBERT NP [facility] - [facility] [address] [place] [address] 12/11/2020 14:07:27 12/19/2020 16:56:53 Nausea 992027536 R11.0 Dizziness 906231679 R42 [id number] Tete Escalante NP SPR - [facility] [address] [place] [address] 12/31/2020 13:18:40 01/01/2021 19:35:42 Dehydration 13973900 E86.0 Abdominal pain 89836287 R10.9 [id number] ANDREWS HUNTLEY NP SPR - [facility] [address] [place] [address] 04/26/2021 19:07:16 04/30/2021 11:12:07 Acute urinary tract infection 711781404 N39.0 [id number] Mirlande Schmidt NP SPR [facility] [address] [place] [address] 01/25/2022 13:57:56 01/27/2022 19:23:10 Gastroparesis syndrome 245865028 K31.84 Acute on chronic Acute urin doris tract infection 700358578 N39.0 Health Concerns Section Related Observation LastModified by Organization Detai ls LastModified Time None Recorded Concern Status LastModified by Organization Details LastModified Time None Recorded Advance Directives Directive None Recorded Payers Insurance Date Sequence Insurance Name Policy Number Policy Schneider Covered Member ID Schneider Member ID Guarantor Name 02/07/2022 1 [place] [facility] [employer] Brooklyn Chavez [id number] Brooklyn Chavez 02/07/2022 1 [facility] - DOS PRIOR TO 2022 - DUAL ELIGIBLE (MEDICARE REPLACEMENT/AD VANTAGE - HMO) Brooklyn Chavez [id number] Brooklyn L Brothers 02/07/2022 2 [place] [facility] Brooklyn L Brothers [id number] Brooklyn L Brothers 02/07/2022 1 [place] Brooklyn L Brothers [id number] Brooklyn L Brothers 04/20/2019 1 *SELF PAY* Brooklyn Brothers [id number] Brooklyn L Brothers 04/20/2019 1 [place] Brooklyn L Brothers [id number] Brooklyn L Brothers 04/20/2019 1 [place] Brooklyn Brothers [id number] Brooklyn L Brothers 04/20/2019 1 *SELF PAY* Nesha Brothers [id number] Brooklyn L Brothers 04/20/2019 1 [place] Nesha Brothers [id number] Brooklyn L Brothers 05/20/2019 1 [place] Brooklyn L Brothers [id number] Brooklyn L Brothers 07/31/2019 1 [place] Brooklyn L Brothers [id number] Brooklyn L Brothers 01/25/2022 1 [place] Brooklyn L Brothers [id number] Brooklyn L Brothers 04/10/2020 1 [place] Brooklyn L Brothers [id number] Brooklyn L Brothers 03/20/2020 1 [place] [facility] Brooklyn Brothers [id number] Brooklyn L Brothers 12/10/2020 2 [place] [facility] Brooklyn Brothers [id number] Brooklyn L Brothers 04/29/2020 1 [place] Brooklyn L Brothers [id number] Brooklyn L Brothers 03/03/2020 1 [place] Brooklyn L Brothers [id number] Brooklyn L Brothers 12/10/2020 1 [place] Brooklyn L Brothers [id number] Brooklyn L Brothers 04/29/2020 1 [place] Brooklyn Brothers [id number] Brooklyn L Brothers 03/27/2020 1 [place] Brooklyn Brothers [id number] Brooklyn L Brothers 12/13/2020 1 [place] Brooklyn Brothers [id number] Brooklyn L Brothers 12/11/2020 2 [place] [facility] Brooklyn Brothers [id number] Brooklyn L Brothers 02/07/2022 2 [place] Brooklyn Brothers [id number] Brooklyn L Brothers 12/11/2020 1 [place] [facility] Brooklyn Brothers [id number] Brooklyn L Brothers 12/11/2020 1 [place] Brooklyn Brothers [id number] Brooklyn L Brothers 12/11/2020 1 [place] Brooklyn Brothers [id number] Brooklyn L Brothers 12/10/2020 1 [place] [facility] Brooklyn Brothers [id number] Brooklyn L Brothers 12/06/2021 1 [place] Brooklyn L Brothers [id number] Brooklyn L Brothers 12/25/2020 2 [place] [facility] Brooklyn Brothers [id number] Brooklyn L Brothers 12/11/2020 2 [place] [facility] Brooklyn Brothers [id number] Brooklyn L Brothers 12/19/2020 1 [place] [employer] [id number] [facility] [employer] 03/20/2020 2 [place] [facility] [employer] [id number] [employer] [facility] [employer] Notes Date Note Type Note Provider Name and Address Organization Details Recorded Time 04/30/2020 text/html This is a 39-year-old female who is known to [facility] but new to this provider, with a 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 She was seen Tuesday at [facility] for nausea vomiting and abdominal pain. [...] been on antibiotics. Tete Escalante NP [address], [place], [address], [place] - [facility] 04/30/2020 18:09:48 12/11/2020 text/html This is a 40-year-old female that is known to [facility] but new to this provider. She has a medical history significant for bechetts syndrome, Crohn's disease, gastroparesis and DVT for which she is anticoagulated. She was recently hospitalized at [facility] with complaints of low blood pressure and low heart rate. She was discharged home yesterday early afternoon. She contacted [facility] yesterday after getting home with complaints of nausea and dizziness, she required a secondary screening so she was ultimately not able to be seen as there was no provider available to screen her. She contacted [facility] again today with complaints of abdominal [...] review the patient's medical record in the [facility] system however her record is blocks due [...] wobbly. NAZANIN TOLBERT, PEARL [address], [place], [address], [place] - [facility] 12/11/2020 17:39:08 12/31/2020 text/html 40-year-old female who is known to [facility] provider, with a past medical [...] urinary symptoms. She was reportedly admitted to [facility]- received IVF- came home with SOB- was admitted to [facility] for diuresis. She has been home about 1 week. She was seen by GI who plans to start TPN, IV Benadryl and IV Zofran. Tete Escalante, PEARL [address], [place], [address], [place] - [facility] 01/02/2021 11:52:00 04/26/2021 text/html Brooklyn Chavez is a 40 y/o F PMH Bechet's, crohn's, [...] today. ANDREWS HUNTLEY NP [address], [place], [address], [place] - [facility] 04/26/2021 19:42:06 01/25/2022 text/html 41 year old female known to but new to provider with a history of DVT/PE on Eliquis, asthma, Bachets Dx, chronic gastroparesis with home TPN therapy via port, immune deficiency seen today for not feeling well after dx with UTI at [facility] late last night/early this am. Went [...] did not have childcare coverage. Went to [place] [facility] last night for headache, acute on [...] at approximately 2am (now 215pm). Did not pickle cutter Rx for antibiotic or pyridium. Pt showed all lab and abd CT results with normal CBCD, CMP, EGFR > 60. Abn CT with no etiology for abd pain complaints. Mirlande Schmidt NP [address], [place], [address], [place] - [facility] 02/03/2022 09:50:48 OBGyn Episode No OBEpisode recorded.
== END 2025-04-04 13:42 | disposition home or self-care (01) ==
LOC: HO.PMC 13:16
PROVIDERS: Visit Provider Anesthesiology
DX: G89.29 Other chronic pain (principal); M35.2 Behcet's disease; M54.2 Cervicalgia; M54.50 Low back pain, unspecified; R10.9 Unspecified abdominal pain; Z79.891 Long term (current) use of opiate analgesic
CPT/HCPCS: 99213

== ENCOUNTER → 2025-04-04 13:16 | Outpatient (BNVA) | payer MEDICARE, MEDICAID, SELFPAY | PROVIDERS: Visit Provider Anesthesiology | DX: M35.2 Behcet's disease (principal); M54.50 Low back pain, unspecified; R10.9 Unspecified abdominal pain; M54.2 Cervicalgia; Z79.891 Long term (current) use of opiate analgesic | CPT/HCPCS: 99212 ==